=== PATIENT | male | born 1970 | race Two or more races ===

== ENCOUNTER 2020-07-03 18:14 | Inpatient (IN) | payer MEDICAID, OTHER ==
[2020-07-02] MEDS: IV NORMAL SALINE 1000ML BAG 1,000 ML IV SCH (03:30)
[~2020-07-03] VITALS: Ht 167.6 cm; Wt 63.5 kg
[2020-07-03 18:48] LABS: BASO % 0 % (0-3); EOS # 0.1 x10^3/uL (0.0-0.7); EOS % 1 % (0-3); HEMATOCRIT 47.8 % (39.0-53.0); HEMOGLOBIN 16.4 g/dL (13.0-17.5); LYMPH # 1.6 x10^3/uL (1.0-4.8); LYMPH % 9 % (24-48); MEAN CORPUSCULAR HEMOGLOBIN 33 pg (25-35); MEAN CORPUSCULAR HGB CONC 34 g/dL (31-37); MEAN CORPUSCULAR VOLUME 97 fL (79-100); MONO % 6 % (0-9); NEUT # 15.5 x10^3/uL (1.8-7.7); NEUT % 85 % (31-73); PLATELET COUNT 190 x10^3/uL (140-400); RED BLOOD COUNT 4.92 x10^6/uL (4.30-5.70); RED CELL DISTRIBUTION WIDTH 13.2 % (11.5-14.5); WHITE BLOOD COUNT 18.3 x10^3/uL (4.0-11.0)
[2020-07-03 19:05] LABS: CALCIUM 8.1 mg/dL (8.5-10.1); CREATININE 1.5 mg/dL (0.7-1.3); GFR 49.5; POTASSIUM 3.9 mmol/L (3.5-5.1)
[2020-07-03 19:10] LABS: ALBUMIN 2.4 g/dL (3.4-5.0); ALBUMIN/GLOBULIN RATIO 0.5 (1.0-1.7); TOTAL BILIRUBIN 0.5 mg/dL (0.2-1.0); TOTAL PROTEIN 7.5 g/dL (6.4-8.2)
--- NOTE | 2020-07-03 19:14 | PHYS DOC ---
Past Medical History Past Medical History: Hypertension Past Surgical History: No Surgical History Smoking Status: Never Smoker Alcohol Use: Occasionally General Adult EDM: Chief Complaint: DYSPNEA/RESPIRATOY DISTRESS HPI: HPI: 49-year-old male who reports past medical history of hypertension and bronchitis (no h/o tobacco dependence), presents to the ED with complaints of increased work of breathing, fatigue, weakness and shortness of breath, symptoms started on Thursday when he was tested negative for Covid but symptoms worsened yesterday. Associated sore throat. Was 60% on room air upon ED arrival. Not on any home oxygen. NKDA. Review of Systems: Review of Systems: Constitutional: Denies fever or chills. [] Eyes: Denies change in visual acuity. [] HENT: Denies nasal congestion or drooling/speech changes/facial droop Respiratory: Denies hemoptysis Cardiovascular: Denies chest pain or edema or syncope GI: Denies abdominal pain, nausea, vomiting, bloody stools or diarrhea. [] : Denies dysuria or dysuria [] Musculoskeletal: Denies back pain or joint pain. [] Integument: Denies rash. [] Neurologic: Denies headache, focal weakness or sensory changes, no neck pain Endocrine: Denies polyuria or polydipsia. [] Lymphatic: Denies swollen glands. [] Psychiatric: Denies depression or anxiety. [] Heart Score: Risk Factors: Risk Factors: DM, Current or recent (<one month) smoker, HTN, HLP, family history of CAD, obesity. Risk Scores: Score 0 - 3: 2.5% MACE over next 6 weeks - Discharge Home Score 4 - 6: 20.3% MACE over next 6 weeks - Admit for Clinical Observation Score 7 - 10: 72.7% MACE over next 6 weeks - Early Invasive Strategies Allergies: Allergies: Allergies Coded Allergies Type Severity Reaction Last Updated Verified No Known Drug Allergies 07/03/20 No Physical Exam: PE: Constitutional: fatigued appearing, afebrile HENT: Normocephalic, atraumatic, oropharynx moist, no oral exudates, Eyes: EOMI, conjunctiva normal, no discharge. [] Neck: Normal range of motion, supple, no stridor. [] Cardiovascular:Heart rate regular rhythm, no murmur [] Lungs & Thorax: Bilateral breath sounds clear to auscultation, tachypnea, hypoxic, sternal/subcostal retractions, 60% RA, Abdomen: Bowel sounds normal, soft, no tenderness, no masses, no pulsatile masses. [] Skin: Warm, dry, no erythema, no rash. [] Extremities: No tenderness, no cyanosis, no clubbing, ROM intact, no LE edema. [] Neurologic: Alert and oriented X 3, normal motor function, normal sensory function, no focal deficits noted. [] Psychologic: Affect normal, judgement normal, mood normal. [] Current Patient Data: Labs: Laboratory Tests Test 07/03/20 18:20 White Blood Count 18.3 x10^3/uL (4.0-11.0) H Red Blood Count 4.92 x10^6/uL (4.30-5.70) Hemoglobin 16.4 g/dL (13.0-17.5) Hematocrit 47.8 % (39.0-53.0) Mean Corpuscular Volume 97 fL (79-100) Mean Corpuscular Hemoglobin 33 pg (25-35) Mean Corpuscular Hemoglobin Concent 34 g/dL (31-37) Red Cell Distribution Width 13.2 % (11.5-14.5) Platelet Count 190 x10^3/uL (140-400) Neutrophils (%) (Auto) 85 % (31-73) H Lymphocytes (%) (Auto) 9 % (24-48) L Monocytes (%) (Auto) 6 % (0-9) Eosinophils (%) (Auto) 1 % (0-3) Basophils (%) (Auto) 0 % (0-3) Neutrophils # (Auto) 15.5 x10^3/uL (1.8-7.7) H Lymphocytes # (Auto) 1.6 x10^3/uL (1.0-4.8) Monocytes # (Auto) 1.0 x10^3/uL (0.0-1.1) Eosinophils # (Auto) 0.1 x10^3/uL (0.0-0.7) Basophils # (Auto) 0.0 x10^3/uL (0.0-0.2) Sodium Level 129 mmol/L (136-145) L Potassium Level 3.9 mmol/L (3.5-5.1) Chloride Level 90 mmol/L (98-107) L Carbon Dioxide Level 26 mmol/L (21-32) Anion Gap 13 (6-14) Blood Urea Nitrogen 31 mg/dL (8-26) H Creatinine 1.5 mg/dL (0.7-1.3) H Estimated GFR (Cockcroft-Gault) 49.5 BUN/Creatinine Ratio 21 (6-20) H Glucose Level 188 mg/dL (70-99) H Calcium Level 8.1 mg/dL (8.5-10.1) L Total Bilirubin 0.5 mg/dL (0.2-1.0) Aspartate Amino Transferase (AST) 39 U/L (15-37) H Alanine Aminotransferase (ALT) 37 U/L (16-63) Alkaline Phosphatase 102 U/L (46-116) Creatine Kinase 114 U/L (39-308) Total Protein 7.5 g/dL (6.4-8.2) Albumin 2.4 g/dL (3.4-5.0) L Albumin/Globulin Ratio 0.5 (1.0-1.7) L Laboratory Tests 07/03/20 18:20 Laboratory Tests 07/03/20 18:20 Vital Signs: Vital Signs Date Time Temp Pulse Resp B/P (MAP) Pulse Ox O2 Delivery O2 Flow Rate FiO2 07/03/20 18:32 98.0 96 42 137/84 (101) 60 Room Air 98.0 EKG: EKG: Sinus tachycardia at 101 bpm, right axis deviation, QTC 460, questionable T wave inversion lead 1 and aVL w/q waves, no ST elevations or ST depressions, no prior EKG for comparison Radiology/Procedures: Radiology/Procedures: IMAGING REPORT Signed PATIENT: ABHISHEK SKINNER ACCOUNT: [id number] : 1970 LOCATION: ER AGE: 49 SEX: M EXAM STATUS: REG ER ORD. PHYSICIAN: AUTUMN SMITH DO REASON: soa, elevated d-dimer, r/o pe PROCEDURE: CT ANGIOGRAPHY CHEST Exam: CT of chest with contrast INDICATION: Short of air TECHNIQUE: Sequential axial images through the chest obtained following the administration of 90 mL of Omni 350 IV contrast. Sagittal and coronal reformatted images were reconstructed from the axial data and reviewed. 3-D reformatted images were reconstructed from the axial data and reviewed. Comparisons: Chest x-ray same day FINDINGS: Visualized portions of the thyroid are unremarkable. Numerous prominent and mildly enlarged mediastinal lymph nodes are noted diffusely. Heart size is normal. No pericardial effusion. Thoracic aorta has a normal course and caliber. Pulmonary artery is not enlarged. There are segmental and subsegmental pulmonary emboli scattered throughout the right and left lower lobes. Airways are patent. Diffuse groundglass opacity noted throughout the lungs bilaterally with mild peripheral sparing and a greater distribution at the lower lobes. No pneumothorax. No pleural effusion or thickening. Visualized upper abdomen is unremarkable. No suspicious osseous lesions or acute fractures. IMPRESSION: 1. Scattered pulmonary emboli within segmental and subsegmental branches of the right and left lower lobes. No evidence for right heart strain on this study. 2. Diffuse groundglass opacity throughout the lungs described above this may relate to either edema or atypical infectious process. Correlate for viral causes. Exposure: One or more of the following in the visualized dose reduction techniques were utilized for this examination: 1. Automated exposure control 2. Adjustment of the MA and/or KV according to patient size 3. Use of iterative of reconstructive technique Electronically signed by: Rusty Victoria MD (07/03/2020 9:16 PM) [facility] DICTATED and SIGNED BY: RUSTY VICTORIA MD DATE: 07/03/202115 IMAGING REPORT Signed PATIENT: ABHISHEK SKINNER ACCOUNT: [id number] : 1970 LOCATION: ER AGE: 49 SEX: M EXAM STATUS: REG ER ORD. PHYSICIAN: AUTUMN SMITH DO REASON: soa PROCEDURE: PORTABLE CHEST 1V Exam: Chest one view INDICATION: Short of air TECHNIQUE: Frontal view of the chest Comparisons: None FINDINGS: The cardiomediastinal silhouette and pulmonary vessels are within normal limits. Patchy bilateral airspace disease. No pleural effusion. IMPRESSION: Patchy bilateral airspace disease may relate to edema or atypical infectious process. Electronically signed by: Rusty Victoria MD (07/03/2020 9:03 PM) [facility] DICTATED and SIGNED BY: RUSTY VICTORIA MD DATE: 07/03/202102 Course & Med Decision Making: Course & Med Decision Making Pertinent Labs and Imaging studies reviewed. (See chart for details) COVID-19 CRITERIA: The patient was evaluated during the global COVID-19 pandemic, and that diagnosis was suspected/considered upon their initial presentation. Their evaluation, treatment and testing was consistent with current guidelines for patients who present with complaints or symptoms that may be related to COVID-19. Concern for acute hypoxic respiratory failure (covid likely, test pending) with subsegmental nonmassive PE, NSTEMI, acute kidney injury? (no prior for comparison) and sepsis. Patient was started on antibiotics and PE treatment dosing with Lovenox. Patient requiring BiPAP given tachypnea and hypoxia. Pulmonology and cardiology are consulted (spoke with Dr. Nguyen who agrees with plan). Patient in guarded condition and will admit for further medical management. I have spoken with the patient and/or caregivers. I have explained the patient's condition, diagnosis and treatment plan based on the information available to me at this time. I have answered the patient's and/or caregivers questions and answered any concerns. The patient and/or caregivers have as good an understanding of the patient's diagnosis, condition and treatment plan as can be expected at this point. The patient has been stabilized within the capability of the emergency department. The patient will be transported for further care and management or will be moved to an observation or inpatient service. I have communicated with the staff or medical practitioner taking over this patient's care. Critical Care: Authorized and Performed by: Autumn Smith DO Total critical care time: approximately 60 minutes Due to a high probability of clinically significant, life threatening deterioration, the patient required my highest level of preparedness to intervene emergently and I personally spent this critical care time directly and personally managing the patient. This critical care time included obtaining a history; examining the patient; pulse oximetry; ventilator management if necessary; ordering and review of studies; arranging urgent treatment with development of a management plan; evaluation of patient's response to treatment; frequent reassessment; discussion with patient/family; and, discussions with other providers. This critical care time was performed to assess and manage the high probability of imminent, life-threatening deterioration that could result in multi-organ failure. It was exclusive of separately billable procedures and treating other patients and teaching time. Please see MDM section and the rest of the note for further information on patient assessment and treatment. Dragon Disclaimer: Dragon Disclaimer: This electronic medical record was generated, in whole or in part, using a voice recognition dictation system. Departure Departure Impression: Primary Impression: Acute respiratory failure with hypoxia Additional Impressions: Suspected COVID-19 virus infection Elevated troponin I level PRIYA (acute kidney injury) Pulmonary emboli Disposition: ADMITTED INPT THIS HOSP Admitting Physician: LIZA (Dr. Malone) Condition: GUARDED AUTUMN SMITH DO Jul 03, 2020 19:14
[2020-07-03] MEDS ORDERED: IV NORMAL SALINE 1000ML BAG 1,000 ML IV ONE ×2 (19:15)
[2020-07-03] MEDS ORDERED: AZITHROMYCIN 250 MG TABLET. PO ONE (19:15)
[2020-07-03] MEDS ORDERED: cefTRIAXone IV Push 1 GM VIAL. IVP ONE (19:15)
[2020-07-03 19:45] LABS: BASE EXCESS ABG -3 mmol/L (-3-3); HCO3 ABG 19 mmol/L (21-28); PCO2 ABG 28 mmHg (35-46); PO2 ABG 73 mmHg (75-108); SAT O2 ABG 94 % (92-99)
[2020-07-03 19:47] LABS: FIO2 ABG 100
[2020-07-03 19:51] LABS: % BANDS 5 % (0-9); % EOS 1 % (0-5); % LYMPHS 13 % (24-48); % METAS 5 % (0-0); % MONOS 3 % (0-10); % MYELOS 3 % (0-0); % SEGS 70 % (35-66); PLT ESTIMATE ADEQUATE (ADEQUATE); TOXIC GRANULATION SLIGHT
[2020-07-03 19:52] LABS: PLATELET CLUMP PRESENT
[2020-07-03 19:54] LABS: INFLUENZA A PATIENT NEGATIVE (NEGATIVE); INFLUENZA B PATIENT NEGATIVE (NEGATIVE)
[2020-07-03] MEDS ORDERED: IOHEXOL 350 MG/ML 100 ML VIAL. IV ONE (20:45)
[2020-07-03] MEDS ORDERED: CONTRAST GIVEN. MC PRN (20:45)
--- NOTE | 2020-07-03 21:07 | RAD ---
Exam: Chest one view INDICATION: Short of air TECHNIQUE: Frontal view of the chest Comparisons: None FINDINGS: The cardiomediastinal silhouette and pulmonary vessels are within normal limits. Patchy bilateral airspace disease. No pleural effusion. IMPRESSION: Patchy bilateral airspace disease may relate to edema or atypical infectious process. Electronically signed by: Rusty Shukla MD (07/03/2020 9:03 PM) [facility]
--- NOTE | 2020-07-03 21:18 | RAD ---
Exam: CT of chest with contrast INDICATION: Short of air TECHNIQUE: Sequential axial images through the chest obtained following the administration of 90 mL of Omni 350 IV contrast. Sagittal and coronal reformatted images were reconstructed from the axial data and reviewed. 3-D reformatted images were reconstructed from the axial data and reviewed. Comparisons: Chest x-ray same day FINDINGS: Visualized portions of the thyroid are unremarkable. Numerous prominent and mildly enlarged mediastinal lymph nodes are noted diffusely. Heart size is normal. No pericardial effusion. Thoracic aorta has a normal course and caliber. Pulmonary artery is not enlarged. There are segmental and subsegmental pulmonary emboli scattered throughout the right and left lower lobes. Airways are patent. Diffuse groundglass opacity noted throughout the lungs bilaterally with mild peripheral sparing and a greater distribution at the lower lobes. No pneumothorax. No pleural effusion or thickening. Visualized upper abdomen is unremarkable. No suspicious osseous lesions or acute fractures. IMPRESSION: 1. Scattered pulmonary emboli within segmental and subsegmental branches of the right and left lower lobes. No evidence for right heart strain on this study. 2. Diffuse groundglass opacity throughout the lungs described above this may relate to either edema or atypical infectious process. Correlate for viral causes. Exposure: One or more of the following in the visualized dose reduction techniques were utilized for this examination: 1. Automated exposure control 2. Adjustment of the MA and/or KV according to patient size 3. Use of iterative of reconstructive technique Electronically signed by: Rusty Shukla MD (07/03/2020 9:16 PM) [facility]
[2020-07-03] MEDS ORDERED: ACETAMINOPHEN 325 MG TABLET. PO PRN (22:30)
[2020-07-03] MEDS ORDERED: MORPHINE SULFATE 2 MG/ML VIAL. IV PRN (22:30)
[2020-07-03] MEDS ORDERED: ONDANSETRON PF 4 MG/2 ML VIAL. IV PRN (22:30)
[2020-07-04] VITALS (28 sets, daily range): BP systolic 62–161; BP diastolic 47–75
[2020-07-04 01:06] LABS: BASE EXCESS ABG -2 mmol/L (-3-3); HCO3 ABG 22 mmol/L (21-28); PCO2 ABG 33 mmHg (35-46); PO2 ABG 79 mmHg (75-108); SAT O2 ABG 95 % (92-99)
[2020-07-04 01:15] LABS: FIO2 ABG 85
[2020-07-04] MEDS ORDERED: BENZOCAINE/MENTHOL LOZENGE. PO PRN (01:15)
--- NOTE | 2020-07-04 03:20 | NUR ---
Patient admitted to room 104 via cart at 0310, accompanied by ED RN and RT--patient transferred on O2 at 100% NRB and immediately placed on BiPap with the settings of IPap 16 EPap 10, rate 10 and FiO2 85%. Patient A/Ox4, cooperative and denies pain. Patient's primary language is Zimbabwean but does answer to some Samoan with yes/no answers. Patient is short of air of with rest which does worsen with exertion and speaking. Majority of patient's admission information obtained from ED notes--ED RN used extractive metallurgist phone for answers. Patient oriented to ICU routine, nursing call light, TV/Bed controls, Numeric pain scale, activity, and POC. Encouraged patient to call for drink to assist with BiPap and not to get out of bed (bed alarm on), patient verbalized understanding. Per Chest CTA, patient has scattered PE's in bilat lungs and patient did received Lovenox 150MG subcutaneous in ED. Will hold SCDs until discussing with PCP regarding evaluation for DVT. See Admission information and Admission assessment.
[2020-07-04 07:50] LABS: BASE EXCESS ABG 1 mmol/L (-3-3); HCO3 ABG 25 mmol/L (21-28); PCO2 ABG 38 mmHg (35-46); PO2 ABG 71 mmHg (75-108); SAT O2 ABG 94 % (92-99)
[2020-07-04 08:08] LABS: FIO2 ABG 85
--- NOTE | 2020-07-04 09:04 | PDOC2 ---
CHACORTA DAVILA STORE STANDARDS ASSOCIATE 07/04/20 0904: CARDIAC CONSULT DATE OF CONSULT Date of Consult DATE: 07/04/20 TIME: 08:51 REASON FOR CONSULT Reason for Consult: NSTEMI REFERRING PHYSICIAN Referring Physician: [facility] SOURCE Source: Chart review HISTORY OF PRESENT ILLNESS HISTORY OF PRESENT ILLNESS This is a 49 yo male admitted for complains of SOA. Unable to obtain further details to pt directly as he just got intubated. He was tested negative for covid Thursday but presently PUI. Per imaging he has been noted with acute PE. Except for HTN he does not have any significant CV hxnor VTE per chart review. PAST MEDICAL HISTORY Past Medical History HTN and bronchitis otherwise no other pertinent medical hx PAST SURGICAL HISTORY Past Surgical History: No pertinent history FAMILY HISTORY Family History: Family History Unknown SOCIAL HISTORY Smoke: No ALCOHOL: occassional Drugs: None Lives: with Family CURRENT MEDICATIONS CURRENT MEDICATIONS Current Medications Medications (Trade) Dose Ordered Sig/Natalee Route PRN Reason Start Time Stop Time Status Last Admin Dose Admin Ceftriaxone Sodium (Rocephin) 1 gm 1X ONCE IVP 07/03/20 19:15 07/03/20 19:19 DC 07/03/20 20:11 Azithromycin (Zithromax) 500 mg 1X ONCE PO 07/03/20 19:15 07/03/20 19:19 DC 07/03/20 20:11 Sodium Chloride 1,000 ml @ 1,000 mls/hr 1X ONCE IV 07/03/20 19:15 07/03/20 20:14 DC 07/03/20 20:11 Sodium Chloride 1,000 ml @ 1,000 mls/hr 1X ONCE IV 07/03/20 19:15 07/03/20 20:14 DC 07/03/20 19:15 Iohexol (Omnipaque 350 Mg/ml) 90 ml 1X ONCE IV 07/03/20 20:45 07/03/20 20:46 DC 07/03/20 21:00 Enoxaparin Sodium (Lovenox 150mg Syringe) 150 mg 1X ONCE SQ 07/03/20 23:00 07/03/20 23:01 DC 07/03/20 22:45 Sodium Chloride 1,000 ml @ 100 mls/hr Q10H IV 07/03/20 23:00 07/04/20 22:59 11/9/20 03:30 ALLERGIES ALLERGIES: Coded Allergies: No Known Drug Allergies (Unverified , 07/03/20) ROS Review of System unreliable, intubated PHYSICAL EXAM General: Other (sedated) HEENT: Atraumatic Lungs: Other (intubated with vent) Heart: Regular rate (SR/ST) Abdomen: Soft Extremities: No cyanosis Skin: No breakdown Psych/Mental Status: Other (sedated) MUSCULOSKELETAL: No deformity VITALS/I&O VITALS/I&O: Vital Signs Date Time Temp Pulse Resp B/P (MAP) Pulse Ox O2 Delivery O2 Flow Rate FiO2 07/04/20 08:00 Bi-pap 07/04/20 08:00 72 47 105/58 (74) 93 07/04/20 07:00 99.2 99.2 07/03/20 19:20 15.0 I & O 07/03/20 07/03/20 07/04/20 15:00 23:00 07:00 Intake Total 2415 ml Output Total 400 ml Balance 2015 ml LABS Lab: Laboratory Tests Test 07/03/20 18:20 07/03/20 18:22 07/03/20 18:45 07/03/20 19:35 White Blood Count 18.3 x10^3/uL (4.0-11.0) H Red Blood Count 4.92 x10^6/uL (4.30-5.70) Hemoglobin 16.4 g/dL (13.0-17.5) Hematocrit 47.8 % (39.0-53.0) Mean Corpuscular Volume 97 fL (79-100) Mean Corpuscular Hemoglobin 33 pg (25-35) Mean Corpuscular Hemoglobin Concent 34 g/dL (31-37) Red Cell Distribution Width 13.2 % (11.5-14.5) Platelet Count 190 x10^3/uL (140-400) Neutrophils (%) (Auto) 85 % (31-73) H Lymphocytes (%) (Auto) 9 % (24-48) L Monocytes (%) (Auto) 6 % (0-9) Eosinophils (%) (Auto) 1 % (0-3) Basophils (%) (Auto) 0 % (0-3) Neutrophils # (Auto) 15.5 x10^3/uL (1.8-7.7) H Lymphocytes # (Auto) 1.6 x10^3/uL (1.0-4.8) Monocytes # (Auto) 1.0 x10^3/uL (0.0-1.1) Eosinophils # (Auto) 0.1 x10^3/uL (0.0-0.7) Basophils # (Auto) 0.0 x10^3/uL (0.0-0.2) Segmented Neutrophils % 70 % (35-66) H Band Neutrophils % 5 % (0-9) Lymphocytes % 13 % (24-48) L Monocytes % 3 % (0-10) Eosinophils % 1 % (0-5) Metamyelocytes % 5 % (0-0) H Myelocytes % 3 % (0-0) H Toxic Granulation Slight Platelet Estimate Adequate (ADEQUATE) Platelet Clumps, EDTA Present Large Platelets Occ Giant Platelets Occ Sodium Level 129 mmol/L (136-145) L Potassium Level 3.9 mmol/L (3.5-5.1) Chloride Level 90 mmol/L (98-107) L Carbon Dioxide Level 26 mmol/L (21-32) Anion Gap 13 (6-14) Blood Urea Nitrogen 31 mg/dL (8-26) H Creatinine 1.5 mg/dL (0.7-1.3) H Estimated GFR (Cockcroft-Gault) 49.5 BUN/Creatinine Ratio 21 (6-20) H Glucose Level 188 mg/dL (70-99) H Lactic Acid Level 3.8 mmol/L (0.4-2.0) H Calcium Level 8.1 mg/dL (8.5-10.1) L Total Bilirubin 0.5 mg/dL (0.2-1.0) Aspartate Amino Transferase (AST) 39 U/L (15-37) H Alanine Aminotransferase (ALT) 37 U/L (16-63) Alkaline Phosphatase 102 U/L (46-116) Creatine Kinase 114 U/L (39-308) Troponin I Quantitative 0.136 ng/mL (0.000-0.055) C-Reactive Protein, Quantitative 243.4 mg/L (0-3.3) H PD-Xgv-E-Type Natriuretic Peptide 2022 pg/mL (0-124) H Total Protein 7.5 g/dL (6.4-8.2) Albumin 2.4 g/dL (3.4-5.0) L Albumin/Globulin Ratio 0.5 (1.0-1.7) L Influenza Type A Antigen Negative (NEGATIVE) Influenza Type B Antigen Negative (NEGATIVE) D-Dimer ([place]) > 20.00 ug/mlFEU O2 Saturation 94 % (92-99) Arterial Blood pH 7.47 (7.35-7.45) H Arterial Blood pCO2 at Patient Temp 28 mmHg (35-46) L Arterial Blood pO2 at Patient Temp 73 mmHg (75-108) L Arterial Blood HCO3 19 mmol/L (21-28) L Arterial Blood Base Excess -3 mmol/L (-3-3) FiO2 100 Test 07/03/20 23:09 07/04/20 00:55 07/04/20 07:40 Lactic Acid Level 1.7 mmol/L (0.4-2.0) O2 Saturation 95 % (92-99) 94 % (92-99) Arterial Blood pH 7.43 (7.35-7.45) 7.43 (7.35-7.45) Arterial Blood pCO2 at Patient Temp 33 mmHg (35-46) L 38 mmHg (35-46) Arterial Blood pO2 at Patient Temp 79 mmHg (75-108) 71 mmHg (75-108) L Arterial Blood HCO3 22 mmol/L (21-28) 25 mmol/L (21-28) Arterial Blood Base Excess -2 mmol/L (-3-3) 1 mmol/L (-3-3) FiO2 85 85 Laboratory Tests 07/03/20 18:20 Laboratory Tests 07/03/20 18:20 ASSESSMENT/PLAN ASSESSMENT/PLAN 1. Acute hypoxic respiratory failure with acute PE now intubated 2. Acute diastolic CHF 3. NSTEMI: suspect demand mediated, type 2 with above culprits. EKG SR no acute changes 4. HTN: controlled 5. PUI Recommendations TTE if covid negative BMP and Mg Lasix x1 Anticoagulation per pulmonary Supportive care ALESIA LUA MD 07/04/202109: CARDIAC CONSULT ASSESSMENT/PLAN ASSESSMENT/PLAN Agree with LEAD CUSTODIAN's assessment and plan. Continue management of acute resp failure secondary to PE s/p intubation per pulm team We will diurese gently with lasix for mild acute diastolic HF Trop elevation probably demand ischemia We will check 2D echo if Covid test comes back negative Consider ischemic evaluation as outpatient Thank you for your consultation CHACORTA DAVILA APRN Jul 04, 2020 09:04 ALESIA LUA MD Jul 04, 2020 21:10
[2020-07-04] MEDS ORDERED: ETOMIDATE 20 MG/10 ML VIAL. IV ONE ×2 (09:09→09:30)
[2020-07-04] MEDS ORDERED: SUCCINYLCHOLINE 200 MG/10 ML VIAL. ONE (09:09)
[2020-07-04] MEDS ORDERED: MIDAZOLAM HCL/PF 5 MG/5 ML VIAL. ONE (09:21)
[2020-07-04] MEDS ORDERED: MIDAZOLAM HCL/PF 5 MG/5 ML VIAL. IV STA (09:21)
[2020-07-04] MEDS ORDERED: SUCCINYLCHOLINE 200 MG/10 ML VIAL. IV ONE (09:30)
[2020-07-04] MEDS ORDERED: VECURONIUM BOLUS 10 MG VIAL. IV ONE ×3 (09:33→13:15)
[2020-07-04] MEDS: MIDAZOLAM 100mg/100ml NS BAG 100 ML IV PRN ×2 (09:39→14:53)
[2020-07-04] MEDS: IV NORMAL SALINE 1000ML BAG 1,000 ML IV SCH (09:42)
[2020-07-04] MEDS ORDERED: FUROSEMIDE 20 MG/2 ML VIAL. IVP ONE (10:00)
[2020-07-04] MEDS: PROPOFOL 100 ML IV PRN (10:37)
--- NOTE | 2020-07-04 10:37 | RAD ---
EXAM: KUB, PORTABLE CHEST 1V INDICATION: Reason: OG tube placement / Spl. Instructions: / History: . TECHNIQUE: Single view COMPARISON: CT angiogram 07/03/2020 FINDINGS: Patient is now intubated, ET tube terminating 5.5 cm above the omero. An enteric tube has also been placed, tip passing below the diaphragms to terminates in the left upper quadrant abdomen. The heart size is normal. The great vessels appear unremarkable. There is no hilar or mediastinal mass. Lungs show diffuse bilateral coarse interstitial opacities. There is no pleural effusion or pneumothorax. There are no significant osseous abnormalities. IMPRESSION: 1. Interval endotracheal intubation, ET tube 5.5 cm above the omero. 2. Enteric tube placement with the tip in the left upper quadrant abdomen. 3. Diffuse bilateral pulmonary infiltrates. Electronically signed by: Gosia Li MD (07/04/2020 10:34 AM) [id number]
[2020-07-04 11:27] LABS: BASE EXCESS ABG 0 mmol/L (-3-3); HCO3 ABG 26 mmol/L (21-28); PCO2 ABG 48 mmHg (35-46); PO2 ABG 80 mmHg (75-108); SAT O2 ABG 94 % (92-99)
[2020-07-04 11:43] LABS: CHOLESTEROL/HDL RATIO 13.8
[2020-07-04] MEDS ORDERED: PIP/TAZO PER PHARMACY MC PRN (12:00)
[2020-07-04] MEDS ORDERED: HEPARIN for IV BOLUS 10,000 UNIT/10 ML VIAL. IV PRN (12:00)
[2020-07-04 12:01] LABS: CALCIUM 7.2 mg/dL (8.5-10.1); CREATININE 0.9 mg/dL (0.7-1.3); GFR 89.3; POTASSIUM 4.1 mmol/L (3.5-5.1)
[2020-07-04 12:08] LABS: FIO2 ABG 100
[2020-07-04] MEDS: HEPARIN 25,000UTS/250ML PREMIX 250 ML IV PRN (12:24)
[2020-07-04] MEDS: PANTOPRAZOLE IV PUSH 40 MG VIAL. IVP SCH (12:27)
[2020-07-04 12:35] LABS: BASO % 0 % (0-3); EOS # 0.2 x10^3/uL (0.0-0.7); EOS % 2 % (0-3); HEMATOCRIT 34.3 % (39.0-53.0); HEMOGLOBIN 11.4 g/dL (13.0-17.5); LYMPH # 0.6 x10^3/uL (1.0-4.8); LYMPH % 5 % (24-48); MEAN CORPUSCULAR HEMOGLOBIN 33 pg (25-35); MEAN CORPUSCULAR HGB CONC 33 g/dL (31-37); MEAN CORPUSCULAR VOLUME 99 fL (79-100); MONO # 0.5 x10^3/uL (0.0-1.1); MONO % 4 % (0-9); NEUT # 11.2 x10^3/uL (1.8-7.7); NEUT % 90 % (31-73); PLATELET COUNT 135 x10^3/uL (140-400); RED BLOOD COUNT 3.48 x10^6/uL (4.30-5.70); RED CELL DISTRIBUTION WIDTH 12.9 % (11.5-14.5); WHITE BLOOD COUNT 12.4 x10^3/uL (4.0-11.0)
[2020-07-04] MEDS: NOREPINEPHRINE VIAL 8 MG in IV DEXTROSE 5% 250 ML IV PRN (13:26)
--- NOTE | 2020-07-04 13:43 | NUR ---
Have reviewed and agree with documentation completed by post graduate internship and made changes as needed. TF orders have been entered. RD available [id number] as needed
[2020-07-04] MEDS: methylPREDNISolone SOD SUCC PF 40 MG/ML VIAL. IV SCH (14:10)
[2020-07-04] MEDS: PIPERACILLIN/TAZOBACTAM 3.375 GM in IV NORMAL SALINE 50ML 50 ML IV SCH ×2 (14:10→18:00)
--- NOTE | 2020-07-04 14:24 | NUR ---
SS following for discharge planning. SS reviewed pt chart and discussed with pt RN. Pt is from home and is currently intubated and on the vent at 100%. COVID19 test pending. Self Pay. Pt on IV Zosyn. SS will continue to follow for discharge planning.
--- NOTE | 2020-07-04 14:44 | EKG ---
[facility] [address] [place] [address] Test Date: 2020-07-03 Test Time: 18:19:28 Pat Name: ABHISHEK SKINNER Department: Room: Gender: M Aerial Installer: : 1970 Requested By: YARITZA SMITH Order Number: [id number] Reading MD: Measurements Intervals [place] Rate: 101 P: 121 [place]: 138 QRS: 177 QRSD: 92 T: 149 QT: 354 QTc: 460 Interpretive Statements SINUS TACHYCARDIA ABNORMAL RIGHT AXIS DEVIATION QRS(T) CONTOUR ABNORMALITY CONSISTENT WITH HIGH LATERAL INFARCT AGE UNDETERMINED ABNORMAL ECG RI6.02 No previous ECG available for comparison
--- NOTE | 2020-07-04 15:01 | PDOC ---
PULMONARY PROGRESS NOTES DATE: 07/04/20 TIME: 15:00 Vitals Vital Signs Date Time Temp Pulse Resp B/P (MAP) Pulse Ox O2 Delivery O2 Flow Rate FiO2 07/04/20 13:30 88 92/62 (72) 90 07/04/20 12:00 Mechanical Ventilator 07/04/20 08:00 47 07/04/20 07:00 99.2 99.2 07/03/20 19:20 15.0 Labs Laboratory Tests Test 07/03/20 18:20 07/03/20 18:22 07/03/20 18:45 07/03/20 19:35 White Blood Count 18.3 x10^3/uL (4.0-11.0) Red Blood Count 4.92 x10^6/uL (4.30-5.70) Hemoglobin 16.4 g/dL (13.0-17.5) Hematocrit 47.8 % (39.0-53.0) Mean Corpuscular Volume 97 fL (79-100) Mean Corpuscular Hemoglobin 33 pg (25-35) Mean Corpuscular Hemoglobin Concent 34 g/dL (31-37) Red Cell Distribution Width 13.2 % (11.5-14.5) Platelet Count 190 x10^3/uL (140-400) Neutrophils (%) (Auto) 85 % (31-73) Lymphocytes (%) (Auto) 9 % (24-48) Monocytes (%) (Auto) 6 % (0-9) Eosinophils (%) (Auto) 1 % (0-3) Basophils (%) (Auto) 0 % (0-3) Neutrophils # (Auto) 15.5 x10^3/uL (1.8-7.7) Lymphocytes # (Auto) 1.6 x10^3/uL (1.0-4.8) Monocytes # (Auto) 1.0 x10^3/uL (0.0-1.1) Eosinophils # (Auto) 0.1 x10^3/uL (0.0-0.7) Basophils # (Auto) 0.0 x10^3/uL (0.0-0.2) Segmented Neutrophils % 70 % (35-66) Band Neutrophils % 5 % (0-9) Lymphocytes % 13 % (24-48) Monocytes % 3 % (0-10) Eosinophils % 1 % (0-5) Metamyelocytes % 5 % (0-0) Myelocytes % 3 % (0-0) Toxic Granulation Slight Platelet Estimate Adequate (ADEQUATE) Platelet Clumps, EDTA Present Large Platelets Occ Giant Platelets Occ Sodium Level 129 mmol/L (136-145) Potassium Level 3.9 mmol/L (3.5-5.1) Chloride Level 90 mmol/L (98-107) Carbon Dioxide Level 26 mmol/L (21-32) Anion Gap 13 (6-14) Blood Urea Nitrogen 31 mg/dL (8-26) Creatinine 1.5 mg/dL (0.7-1.3) Estimated GFR (Cockcroft-Gault) 49.5 BUN/Creatinine Ratio 21 (6-20) Glucose Level 188 mg/dL (70-99) Lactic Acid Level 3.8 mmol/L (0.4-2.0) Calcium Level 8.1 mg/dL (8.5-10.1) Total Bilirubin 0.5 mg/dL (0.2-1.0) Aspartate Amino Transf (AST/SGOT) 39 U/L (15-37) Alanine Aminotransferase (ALT/SGPT) 37 U/L (16-63) Alkaline Phosphatase 102 U/L (46-116) Creatine Kinase 114 U/L (39-308) Troponin I Quantitative 0.136 ng/mL (0.000-0.055) C-Reactive Protein, Quantitative 243.4 mg/L (0-3.3) UW-Asj-P-Type Natriuretic Peptide 2022 pg/mL (0-124) Total Protein 7.5 g/dL (6.4-8.2) Albumin 2.4 g/dL (3.4-5.0) Albumin/Globulin Ratio 0.5 (1.0-1.7) Influenza Type A Antigen Negative (NEGATIVE) Influenza Type B Antigen Negative (NEGATIVE) D-Dimer ([place]) > 20.00 ug/mlFEU O2 Saturation 94 % (92-99) Arterial Blood pH 7.47 (7.35-7.45) Arterial Blood pCO2 at Patient Temp 28 mmHg (35-46) Arterial Blood pO2 at Patient Temp 73 mmHg (75-108) Arterial Blood HCO3 19 mmol/L (21-28) Arterial Blood Base Excess -3 mmol/L (-3-3) FiO2 100 Test 07/03/20 23:09 07/04/20 00:55 07/04/20 07:40 07/04/20 11:00 Lactic Acid Level 1.7 mmol/L (0.4-2.0) O2 Saturation 95 % (92-99) 94 % (92-99) Arterial Blood pH 7.43 (7.35-7.45) 7.43 (7.35-7.45) Arterial Blood pCO2 at Patient Temp 33 mmHg (35-46) 38 mmHg (35-46) Arterial Blood pO2 at Patient Temp 79 mmHg (75-108) 71 mmHg (75-108) Arterial Blood HCO3 22 mmol/L (21-28) 25 mmol/L (21-28) Arterial Blood Base Excess -2 mmol/L (-3-3) 1 mmol/L (-3-3) FiO2 85 85 White Blood Count 12.4 x10^3/uL (4.0-11.0) Red Blood Count 3.48 x10^6/uL (4.30-5.70) Hemoglobin 11.4 g/dL (13.0-17.5) Hematocrit 34.3 % (39.0-53.0) Mean Corpuscular Volume 99 fL (79-100) Mean Corpuscular Hemoglobin 33 pg (25-35) Mean Corpuscular Hemoglobin Concent 33 g/dL (31-37) Red Cell Distribution Width 12.9 % (11.5-14.5) Platelet Count 135 x10^3/uL (140-400) Neutrophils (%) (Auto) 90 % (31-73) Lymphocytes (%) (Auto) 5 % (24-48) Monocytes (%) (Auto) 4 % (0-9) Eosinophils (%) (Auto) 2 % (0-3) Basophils (%) (Auto) 0 % (0-3) Neutrophils # (Auto) 11.2 x10^3/uL (1.8-7.7) Lymphocytes # (Auto) 0.6 x10^3/uL (1.0-4.8) Monocytes # (Auto) 0.5 x10^3/uL (0.0-1.1) Eosinophils # (Auto) 0.2 x10^3/uL (0.0-0.7) Basophils # (Auto) 0.0 x10^3/uL (0.0-0.2) Sodium Level 136 mmol/L (136-145) Potassium Level 4.1 mmol/L (3.5-5.1) Chloride Level 101 mmol/L (98-107) Carbon Dioxide Level 26 mmol/L (21-32) Anion Gap 9 (6-14) Blood Urea Nitrogen 17 mg/dL (8-26) Creatinine 0.9 mg/dL (0.7-1.3) Estimated GFR (Cockcroft-Gault) 89.3 Glucose Level 150 mg/dL (70-99) Calcium Level 7.2 mg/dL (8.5-10.1) Magnesium Level 2.1 mg/dL (1.8-2.4) Troponin I Quantitative 0.214 ng/mL (0.000-0.055) Triglycerides Level 190 mg/dL (0-150) Cholesterol Level 83 mg/dL (0-200) LDL Cholesterol, Calculated 39 mg/dL (0-100) VLDL Cholesterol, Calculated 38 mg/dL (0-40) Non-HDL Cholesterol Calculated 77 mg/dL (0-129) HDL Cholesterol 6 mg/dL (40-60) Cholesterol/HDL Ratio 13.8 Test 07/04/20 11:20 O2 Saturation 94 % (92-99) Arterial Blood pH 7.35 (7.35-7.45) Arterial Blood pCO2 at Patient Temp 48 mmHg (35-46) Arterial Blood pO2 at Patient Temp 80 mmHg (75-108) Arterial Blood HCO3 26 mmol/L (21-28) Arterial Blood Base Excess 0 mmol/L (-3-3) FiO2 100 Laboratory Tests Test 07/03/20 18:20 07/03/20 18:22 07/03/20 18:45 07/03/20 19:35 White Blood Count 18.3 x10^3/uL (4.0-11.0) Red Blood Count 4.92 x10^6/uL (4.30-5.70) Hemoglobin 16.4 g/dL (13.0-17.5) Hematocrit 47.8 % (39.0-53.0) Mean Corpuscular Volume 97 fL (79-100) Mean Corpuscular Hemoglobin 33 pg (25-35) Mean Corpuscular Hemoglobin Concent 34 g/dL (31-37) Red Cell Distribution Width 13.2 % (11.5-14.5) Platelet Count 190 x10^3/uL (140-400) Neutrophils (%) (Auto) 85 % (31-73) Lymphocytes (%) (Auto) 9 % (24-48) Monocytes (%) (Auto) 6 % (0-9) Eosinophils (%) (Auto) 1 % (0-3) Basophils (%) (Auto) 0 % (0-3) Neutrophils # (Auto) 15.5 x10^3/uL (1.8-7.7) Lymphocytes # (Auto) 1.6 x10^3/uL (1.0-4.8) Monocytes # (Auto) 1.0 x10^3/uL (0.0-1.1) Eosinophils # (Auto) 0.1 x10^3/uL (0.0-0.7) Basophils # (Auto) 0.0 x10^3/uL (0.0-0.2) Segmented Neutrophils % 70 % (35-66) Band Neutrophils % 5 % (0-9) Lymphocytes % 13 % (24-48) Monocytes % 3 % (0-10) Eosinophils % 1 % (0-5) Metamyelocytes % 5 % (0-0) Myelocytes % 3 % (0-0) Toxic Granulation Slight Platelet Estimate Adequate (ADEQUATE) Platelet Clumps, EDTA Present Large Platelets Occ Giant Platelets Occ Sodium Level 129 mmol/L (136-145) Potassium Level 3.9 mmol/L (3.5-5.1) Chloride Level 90 mmol/L (98-107) Carbon Dioxide Level 26 mmol/L (21-32) Anion Gap 13 (6-14) Blood Urea Nitrogen 31 mg/dL (8-26) Creatinine 1.5 mg/dL (0.7-1.3) Estimated GFR (Cockcroft-Gault) 49.5 BUN/Creatinine Ratio 21 (6-20) Glucose Level 188 mg/dL (70-99) Lactic Acid Level 3.8 mmol/L (0.4-2.0) Calcium Level 8.1 mg/dL (8.5-10.1) Total Bilirubin 0.5 mg/dL (0.2-1.0) Aspartate Amino Transf (AST/SGOT) 39 U/L (15-37) Alanine Aminotransferase (ALT/SGPT) 37 U/L (16-63) Alkaline Phosphatase 102 U/L (46-116) Creatine Kinase 114 U/L (39-308) Troponin I Quantitative 0.136 ng/mL (0.000-0.055) C-Reactive Protein, Quantitative 243.4 mg/L (0-3.3) NJ-Cla-D-Type Natriuretic Peptide 2022 pg/mL (0-124) Total Protein 7.5 g/dL (6.4-8.2) Albumin 2.4 g/dL (3.4-5.0) Albumin/Globulin Ratio 0.5 (1.0-1.7) Influenza Type A Antigen Negative (NEGATIVE) Influenza Type B Antigen Negative (NEGATIVE) D-Dimer ([place]) > 20.00 ug/mlFEU O2 Saturation 94 % (92-99) Arterial Blood pH 7.47 (7.35-7.45) Arterial Blood pCO2 at Patient Temp 28 mmHg (35-46) Arterial Blood pO2 at Patient Temp 73 mmHg (75-108) Arterial Blood HCO3 19 mmol/L (21-28) Arterial Blood Base Excess -3 mmol/L (-3-3) FiO2 100 Test 07/03/20 23:09 07/04/20 00:55 07/04/20 07:40 07/04/20 11:00 Lactic Acid Level 1.7 mmol/L (0.4-2.0) O2 Saturation 95 % (92-99) 94 % (92-99) Arterial Blood pH 7.43 (7.35-7.45) 7.43 (7.35-7.45) Arterial Blood pCO2 at Patient Temp 33 mmHg (35-46) 38 mmHg (35-46) Arterial Blood pO2 at Patient Temp 79 mmHg (75-108) 71 mmHg (75-108) Arterial Blood HCO3 22 mmol/L (21-28) 25 mmol/L (21-28) Arterial Blood Base Excess -2 mmol/L (-3-3) 1 mmol/L (-3-3) FiO2 85 85 White Blood Count 12.4 x10^3/uL (4.0-11.0) Red Blood Count 3.48 x10^6/uL (4.30-5.70) Hemoglobin 11.4 g/dL (13.0-17.5) Hematocrit 34.3 % (39.0-53.0) Mean Corpuscular Volume 99 fL (79-100) Mean Corpuscular Hemoglobin 33 pg (25-35) Mean Corpuscular Hemoglobin Concent 33 g/dL (31-37) Red Cell Distribution Width 12.9 % (11.5-14.5) Platelet Count 135 x10^3/uL (140-400) Neutrophils (%) (Auto) 90 % (31-73) Lymphocytes (%) (Auto) 5 % (24-48) Monocytes (%) (Auto) 4 % (0-9) Eosinophils (%) (Auto) 2 % (0-3) Basophils (%) (Auto) 0 % (0-3) Neutrophils # (Auto) 11.2 x10^3/uL (1.8-7.7) Lymphocytes # (Auto) 0.6 x10^3/uL (1.0-4.8) Monocytes # (Auto) 0.5 x10^3/uL (0.0-1.1) Eosinophils # (Auto) 0.2 x10^3/uL (0.0-0.7) Basophils # (Auto) 0.0 x10^3/uL (0.0-0.2) Sodium Level 136 mmol/L (136-145) Potassium Level 4.1 mmol/L (3.5-5.1) Chloride Level 101 mmol/L (98-107) Carbon Dioxide Level 26 mmol/L (21-32) Anion Gap 9 (6-14) Blood Urea Nitrogen 17 mg/dL (8-26) Creatinine 0.9 mg/dL (0.7-1.3) Estimated GFR (Cockcroft-Gault) 89.3 Glucose Level 150 mg/dL (70-99) Calcium Level 7.2 mg/dL (8.5-10.1) Magnesium Level 2.1 mg/dL (1.8-2.4) Troponin I Quantitative 0.214 ng/mL (0.000-0.055) Triglycerides Level 190 mg/dL (0-150) Cholesterol Level 83 mg/dL (0-200) LDL Cholesterol, Calculated 39 mg/dL (0-100) VLDL Cholesterol, Calculated 38 mg/dL (0-40) Non-HDL Cholesterol Calculated 77 mg/dL (0-129) HDL Cholesterol 6 mg/dL (40-60) Cholesterol/HDL Ratio 13.8 Test 07/04/20 11:20 O2 Saturation 94 % (92-99) Arterial Blood pH 7.35 (7.35-7.45) Arterial Blood pCO2 at Patient Temp 48 mmHg (35-46) Arterial Blood pO2 at Patient Temp 80 mmHg (75-108) Arterial Blood HCO3 26 mmol/L (21-28) Arterial Blood Base Excess 0 mmol/L (-3-3) FiO2 100 Impression . Full note dictated See orders Acute hypoxemic respiratory failure, PE, possible COVID-19 ALVIN RAMSEY MD Jul 04, 2020 15:01
[2020-07-04] MEDS: fentaNYL HIGH DOSE PCA 55 ML IV PRN (15:20)
--- NOTE | 2020-07-04 15:45 | CONS ---
DATE OF CONSULTATION: 07/04/2020 ATTENDING PHYSICIAN: Dr. Malone. REASON FOR CONSULTATION: The patient is seen in pulmonary consultation at the request of Dr. Malone for hypoxemic respiratory failure. HISTORY OF PRESENT ILLNESS: The patient is a 49-year-old with a history of hypertension, bronchitis. No history of COPD or tobacco, presented to the Emergency Room with increasing shortness of breath, weakness. He has been tested negative on Thursday for COVID-19, but his symptoms worsen. He had O2 saturations on room air of 90%. The patient was admitted and placed in the intensive care unit. Earlier this morning, I was called with his clinical deterioration. The patient had an arterial blood gas on 100%, pH of 7.47, PaCO2 of 28, pO2 of 73. The patient had increased work of breathing. He had a T-max of 99.2. He had a CT chest revealing scattered pulmonary emboli within the segmental and subsegmental branches. He had diffuse ground glass opacities. He was intubated by anesthesia. He is currently on assist control ventilation. PAST MEDICAL HISTORY: Remarkable for hypertension, some bronchitis, possible asthma. No history of smoking. REVIEW OF SYSTEMS: Unobtainable secondary to the patient's condition CURRENT MEDICATION: List was reviewed. PHYSICAL EXAMINATION: The patient was seen during the COVID-19 pandemic. On visual examination, the patient was not in sync with mechanical ventilation. He had elevated peak airway pressures. He had paroxysmal breathing pattern. No significant edema was noted. RADIOLOGICAL DATA: Chest x-ray and CT as indicated above. LABORATORY DATA: Influenza screen was negative. White count was elevated. Hemoglobin and hematocrit were noted. D-dimer was greater than 20. CT angiogram revealed bilateral pulmonary emboli. IMPRESSION: 1. Acute hypoxemic respiratory failure. 2. Acute pulmonary embolism with cor pulmonale. 3. Possible COVID-19. 4[address] chest revealing ground glass opacities. 5. Hypertension. 6. History of bronchitis. 7. Elevated troponin. 8. Acute kidney injury. 9. Leukocytosis. PLAN: 1. As indicated above, the patient intubated. We will continue mechanical ventilation, adjust minute ventilation to normalize pH. 2. The patient not in sync with mechanical ventilation. We will initiate paralytic agent. 3. Hydrate. 4. IV fluids. 5. Suspect elevated troponin related to acute pulmonary embolism. We will consult Cardiology. 6. Repeat SARS-CoV-2. 7. Initiate steroids. 8. Empiric antibiotics. I do appreciate the privilege in sharing in the patient's care. Total cumulative critical care time of one hour from 9:05 a.m. to 10:05 a.m. ALVIN RAMSEY MD DR: SAFIA/ambika JOB#: [id number] / [id number]
--- NOTE | 2020-07-04 16:47 | PDOC1 ---
History and Physical Date of Admission Date of Admission DATE: 07/04/20 TIME: 16:28 Identification/Chief Complaint Chief Complaint Shortness of breath Source Source: Chart review History of Present Illness History of Present Illness Patient is 49-year-old male with past medical history of hypertension, who presents to the ED with complaints of worsening shortness of breath over the past 5 days. Associated sore throat, fatigue, and generalized weakness. Patient was reportedly tested for COVID-19 last Thursday, but he had negative test results. His symptoms acutely worsened yesterday. Upon arrival to the ER his oxygen saturation was 60% on room air. He was placed on BiPAP and admitted to the ICU. Patient was subsequently intubated due to worsening respiratory failure. Past Medical History Past Medical History Hypertension Past Surgical History Past Surgical History: No pertinent history Family History Family History: Family History Unknown Social History Smoke: No ALCOHOL: occassional Drugs: None Current Problem List Problem List Problems Medical Problems: (1) Acute respiratory failure with hypoxia Status: Acute (2) PRIYA (acute kidney injury) Status: Acute (3) Elevated troponin I level Status: Acute (4) Pulmonary emboli Status: Acute (5) Suspected COVID-19 virus infection Status: Acute Current Medications Current Medications Current Medications Ceftriaxone Sodium (Rocephin) 1 gm 1X ONCE IVP Last administered on 07/03/20at 20:11; Start 07/03/20 at 19:15; Stop 07/03/20 at 19:19; Status DC Azithromycin (Zithromax) 500 mg 1X ONCE PO Last administered on 07/03/20at 20:11; Start 07/03/20 at 19:15; Stop 07/03/20 at 19:19; Status DC Sodium Chloride 1,000 ml @ 1,000 mls/hr 1X ONCE IV Last administered on 07/03/20at 20:11; Start 07/03/20 at 19:15; Stop 07/03/20 at 20:14; Status DC Sodium Chloride 1,000 ml @ 1,000 mls/hr 1X ONCE IV Last administered on 07/03/20at 19:15; Start 07/03/20 at 19:15; Stop 07/03/20 at 20:14; Status DC Iohexol (Omnipaque 350 Mg/ml) 90 ml 1X ONCE IV Last administered on 07/03/20at 21:00; Start 07/03/20 at 20:45; Stop 07/03/20 at 20:46; Status DC Info (CONTRAST GIVEN -- Rx MONITORING) 1 each PRN DAILY PRN MC SEE COMMENTS; Start 07/03/20 at 20:45; Stop 07/05/20 at 20:44 Enoxaparin Sodium (Lovenox 150mg Syringe) 150 mg 1X ONCE SQ Last administered on 07/03/20at 22:45; Start 07/03/20 at 23:00; Stop 07/03/20 at 23:01; Status DC Ondansetron HCl (Zofran) 4 mg PRN Q8HRS PRN IV NAUSEA/VOMITING 1ST CHOICE; Start 07/03/20 at 22:30; Stop 07/04/20 at 22:29 Morphine Sulfate (Morphine Sulfate) 2 mg PRN Q2HR PRN IV SEVERE PAIN 7-10; Start 07/03/20 at 22:30; Stop 07/04/20 at 22:29 Sodium Chloride 1,000 ml @ 100 mls/hr Q10H IV Last administered on 07/04/20at 09:42; Start 07/03/20 at 23:00; Stop 07/04/20 at 22:59 Acetaminophen (Tylenol) 650 mg PRN Q4HRS PRN PO FEVER > 100.3'F; Start 07/03/20 at 22:30; Stop 07/04/20 at 22:29 Throat Lozenges (Cepacol Sore Throat Lozenge) 1 lety PRN Q2HRS PRN PO SORE THROAT; Start 07/04/20 at 01:15 Furosemide (Lasix) 20 mg 1X ONCE IVP Last administered on 07/04/20at 10:10; Start 07/04/20 at 10:00; Stop 07/04/20 at 10:01; Status DC Succinylcholine Chloride (Anectine) 200 mg STK-MED ONCE .ROUTE ; Start 07/04/20 at 09:09; Stop 07/04/20 at 09:09; Status DC Etomidate (Amidate) 20 mg STK-MED ONCE IV ; Start 07/04/20 at 09:09; Stop 07/04/20 at 09:09; Status DC Fentanyl Citrate 30 ml @ 0 mls/hr CONT PRN IV SEE PROTOCOL Last administered on 07/04/20at 09:36; Start 07/04/20 at 09:15; Stop 07/04/20 at 14:36; Status DC Propofol 100 ml @ 0 mls/hr CONT PRN IV SEE PROTOCOL Last administered on 07/04/20at 10:37; Start 07/04/20 at 09:15 Midazolam HCl 100 ml @ 0 mls/hr CONT PRN IV SEE PROTOCOL Last administered on 07/04/20at 14:53; Start 07/04/20 at 09:15 Midazolam HCl (Versed) 5 mg 1X STAT IV Last administered on 07/04/20at 09:41; Start 07/04/20 at 09:21; Stop 07/04/20 at 09:22; Status DC Midazolam HCl (Versed) 5 mg STK-MED ONCE .ROUTE ; Start 07/04/20 at 09:21; Stop 07/04/20 at 09:21; Status DC Etomidate (Amidate) 10 mg 1X ONCE IV Last administered on 07/04/20at 09:37; Start 07/04/20 at 09:30; Stop 07/04/20 at 09:31; Status DC Succinylcholine Chloride (Anectine) 200 mg 1X ONCE IV Last administered on 07/04/20at 09:38; Start 07/04/20 at 09:30; Stop 07/04/20 at 09:31; Status DC Vecuronium [place] (Norcuron Bolus) 6 mg 1X ONCE IV Last administered on 07/04/20at 09:38; Start 07/04/20 at 09:45; Stop 07/04/20 at 09:46; Status DC Vecuronium [place] (Norcuron Bolus) 10 mg STK-MED ONCE IV ; Start 07/04/20 at 09:33; Stop 07/04/20 at 09:33; Status DC Pantoprazole Sodium (PROTONIX VIAL for IV PUSH) 40 mg DAILYAC IVP Last adm inistered on 07/04/20at 12:27; Start 07/04/20 at 12:30 Methylprednisolone Sodium Succinate (SOLU-Medrol 40MG VIAL) 40 mg Q8HRS IV Last administered on 07/04/20at 14:10; Start 07/04/20 at 14:00 Piperacillin Sod/ Tazobactam Sod (Zosyn Per Pharmacy) 1 each PRN DAILY PRN MC SEE COMMENTS; Start 07/04/20 at 12:00 Heparin Sodium/ Dextrose 250 ml @ 13.28 mls/ hr CONT PRN IV PER PROTOCOL Last administered on 07/04/20at 12:24; Start 07/04/20 at 12:00 Heparin Sodium (Porcine) (Heparin Sodium) 2,500 unit PRN Q6HRS PRN IV FOR UFH LEVEL LESS THAN 0.2; Start 07/04/20 at 12:00 Heparin Sodium (Porcine) (Heparin Sodium) 1,250 unit PRN Q6HRS PRN IV FOR UFH LEVEL 0.2 - 0.29; Start 07/04/20 at 12:00 Piperacillin Sod/ Tazobactam Sod 3.375 gm/Sodium Chloride 50 ml @ 100 mls/hr Q6HRS IV Last administered on 07/04/20at 14:10; Start 07/04/20 at 12:00 Zinc Sulfate (Orazinc) 220 mg DAILY PO ; Start 07/05/20 at 09:00 Ascorbic Acid (Vitamin C) 500 mg Q6HRS PO ; Start 07/04/20 at 18:00 Vitamin D (Vitamin D3) 5,000 unit DAILY PO ; Start 07/05/20 at 09:00 Vecuronium [place] (Norcuron Bolus) 6 mg 1X ONCE IV Last administered on 07/04/20at 13:27; Start 07/04/20 at 13:15; Stop 07/04/20 at 13:16; Status DC Norepinephrine Bitartrate 8 mg/ Dextrose 258 ml @ 16.061 mls/ hr CONT PRN IV PER PROTOCOL Last administered on 07/04/20at 13:26; Start 07/04/20 at 13:15 Fentanyl Citrate 55 ml @ 0 mls/hr CONT PRN IV SEE PROTOCOL Last administered on 07/04/20at 15:20; Start 07/04/20 at 14:45 Allergies Allergies: Coded Allergies: No Known Drug Allergies (Unverified , 07/03/20) ROS Review of System Unable to obtain due to clinical condition Physical Exam Physical Exam General: No acute distress HEENT: PERRLA, EOMI Lungs: Intubated and mechanically ventilated Heart: RRR Cardiovascular: S1, S2 Abdomen: Nondistended Extremities: No clubbing, No cyanosis Skin: No rashes, No significant lesion Neuro: Sedated Psych/Mental Status: Sedated Vitals Vitals Vital Signs Date Time Temp Pulse Resp B/P (MAP) Pulse Ox O2 Delivery O2 Flow Rate FiO2 07/04/20 16:00 128/56 (80) 07/04/20 16:00 Mechanical Ventilator 07/04/20 16:00 62 30 100 07/04/20 15:00 99.1 99.1 07/03/20 19:20 15.0 Labs Labs Laboratory Tests Test 07/03/20 18:20 07/03/20 18:22 07/03/20 18:45 07/03/20 19:35 White Blood Count 18.3 x10^3/uL (4.0-11.0) Red Blood Count 4.92 x10^6/uL (4.30-5.70) Hemoglobin 16.4 g/dL (13.0-17.5) Hematocrit 47.8 % (39.0-53.0) Mean Corpuscular Volume 97 fL (79-100) Mean Corpuscular Hemoglobin 33 pg (25-35) Mean Corpuscular Hemoglobin Concent 34 g/dL (31-37) Red Cell Distribution Width 13.2 % (11.5-14.5) Platelet Count 190 x10^3/uL (140-400) Neutrophils (%) (Auto) 85 % (31-73) Lymphocytes (%) (Auto) 9 % (24-48) Monocytes (%) (Auto) 6 % (0-9) Eosinophils (%) (Auto) 1 % (0-3) Basophils (%) (Auto) 0 % (0-3) Neutrophils # (Auto) 15.5 x10^3/uL (1.8-7.7) Lymphocytes # (Auto) 1.6 x10^3/uL (1.0-4.8) Monocytes # (Auto) 1.0 x10^3/uL (0.0-1.1) Eosinophils # (Auto) 0.1 x10^3/uL (0.0-0.7) Basophils # (Auto) 0.0 x10^3/uL (0.0-0.2) Segmented Neutrophils % 70 % (35-66) Band Neutrophils % 5 % (0-9) Lymphocytes % 13 % (24-48) Monocytes % 3 % (0-10) Eosinophils % 1 % (0-5) Metamyelocytes % 5 % (0-0) Myelocytes % 3 % (0-0) Toxic Granulation Slight Platelet Estimate Adequate (ADEQUATE) Platelet Clumps, EDTA Present Large Platelets Occ Giant Platelets Occ Sodium Level 129 mmol/L (136-145) Potassium Level 3.9 mmol/L (3.5-5.1) Chloride Level 90 mmol/L (98-107) Carbon Dioxide Level 26 mmol/L (21-32) Anion Gap 13 (6-14) Blood Urea Nitrogen 31 mg/dL (8-26) Creatinine 1.5 mg/dL (0.7-1.3) Estimated GFR (Cockcroft-Gault) 49.5 BUN/Creatinine Ratio 21 (6-20) Glucose Level 188 mg/dL (70-99) Lactic Acid Level 3.8 mmol/L (0.4-2.0) Calcium Level 8.1 mg/dL (8.5-10.1) Total Bilirubin 0.5 mg/dL (0.2-1.0) Aspartate Amino Transf (AST/SGOT) 39 U/L (15-37) Alanine Aminotransferase (ALT/SGPT) 37 U/L (16-63) Alkaline Phosphatase 102 U/L (46-116) Creatine Kinase 114 U/L (39-308) Troponin I Quantitative 0.136 ng/mL (0.000-0.055) C-Reactive Protein, Quantitative 243.4 mg/L (0-3.3) ER-Egh-K-Type Natriuretic Peptide 2022 pg/mL (0-124) Total Protein 7.5 g/dL (6.4-8.2) Albumin 2.4 g/dL (3.4-5.0) Albumin/Globulin Ratio 0.5 (1.0-1.7) Influenza Type A Antigen Negative (NEGATIVE) Influenza Type B Antigen Negative (NEGATIVE) D-Dimer ([place]) > 20.00 ug/mlFEU O2 Saturation 94 % (92-99) Arterial Blood pH 7.47 (7.35-7.45) Arterial Blood pCO2 at Patient Temp 28 mmHg (35-46) Arterial Blood pO2 at Patient Temp 73 mmHg (75-108) Arterial Blood HCO3 19 mmol/L (21-28) Arterial Blood Base Excess -3 mmol/L (-3-3) FiO2 100 Test 07/03/20 23:09 07/04/20 00:55 07/04/20 07:40 07/04/20 11:00 Lactic Acid Level 1.7 mmol/L (0.4-2.0) O2 Saturation 95 % (92-99) 94 % (92-99) Arterial Blood pH 7.43 (7.35-7.45) 7.43 (7.35-7.45) Arterial Blood pCO2 at Patient Temp 33 mmHg (35-46) 38 mmHg (35-46) Arterial Blood pO2 at Patient Temp 79 mmHg (75-108) 71 mmHg (75-108) Arterial Blood HCO3 22 mmol/L (21-28) 25 mmol/L (21-28) Arterial Blood Base Excess -2 mmol/L (-3-3) 1 mmol/L (-3-3) FiO2 85 85 White Blood Count 12.4 x10^3/uL (4.0-11.0) Red Blood Count 3.48 x10^6/uL (4.30-5.70) Hemoglobin 11.4 g/dL (13.0-17.5) Hematocrit 34.3 % (39.0-53.0) Mean Corpuscular Volume 99 fL (79-100) Mean Corpuscular Hemoglobin 33 pg (25-35) Mean Corpuscular Hemoglobin Concent 33 g/dL (31-37) Red Cell Distribution Width 12.9 % (11.5-14.5) Platelet Count 135 x10^3/uL (140-400) Neutrophils (%) (Auto) 90 % (31-73) Lymphocytes (%) (Auto) 5 % (24-48) Monocytes (%) (Auto) 4 % (0-9) Eosinophils (%) (Auto) 2 % (0-3) Basophils (%) (Auto) 0 % (0-3) Neutrophils # (Auto) 11.2 x10^3/uL (1.8-7.7) Lymphocytes # (Auto) 0.6 x10^3/uL (1.0-4.8) Monocytes # (Auto) 0.5 x10^3/uL (0.0-1.1) Eosinophils # (Auto) 0.2 x10^3/uL (0.0-0.7) Basophils # (Auto) 0.0 x10^3/uL (0.0-0.2) Sodium Level 136 mmol/L (136-145) Potassium Level 4.1 mmol/L (3.5-5.1) Chloride Level 101 mmol/L (98-107) Carbon Dioxide Level 26 mmol/L (21-32) Anion Gap 9 (6-14) Blood Urea Nitrogen 17 mg/dL (8-26) Creatinine 0.9 mg/dL (0.7-1.3) Estimated GFR (Cockcroft-Gault) 89.3 Glucose Level 150 mg/dL (70-99) Calcium Level 7.2 mg/dL (8.5-10.1) Magnesium Level 2.1 mg/dL (1.8-2.4) Troponin I Quantitative 0.214 ng/mL (0.000-0.055) Triglycerides Level 190 mg/dL (0-150) Cholesterol Level 83 mg/dL (0-200) LDL Cholesterol, Calculated 39 mg/dL (0-100) VLDL Cholesterol, Calculated 38 mg/dL (0-40) Non-HDL Cholesterol Calculated 77 mg/dL (0-129) HDL Cholesterol 6 mg/dL (40-60) Cholesterol/HDL Ratio 13.8 Test 07/04/20 11:20 O2 Saturation 94 % (92-99) Arterial Blood pH 7.35 (7.35-7.45) Arterial Blood pCO2 at Patient Temp 48 mmHg (35-46) Arterial Blood pO2 at Patient Temp 80 mmHg (75-108) Arterial Blood HCO3 26 mmol/L (21-28) Arterial Blood Base Excess 0 mmol/L (-3-3) FiO2 100 Laboratory Tests Test 07/03/20 18:20 07/03/20 18:22 07/03/20 18:45 07/03/20 19:35 White Blood Count 18.3 x10^3/uL (4.0-11.0) Red Blood Count 4.92 x10^6/uL (4.30-5.70) Hemoglobin 16.4 g/dL (13.0-17.5) Hematocrit 47.8 % (39.0-53.0) Mean Corpuscular Volume 97 fL (79-100) Mean Corpuscular Hemoglobin 33 pg (25-35) Mean Corpuscular Hemoglobin Concent 34 g/dL (31-37) Red Cell Distribution Width 13.2 % (11.5-14.5) Platelet Count 190 x10^3/uL (140-400) Neutrophils (%) (Auto) 85 % (31-73) Lymphocytes (%) (Auto) 9 % (24-48) Monocytes (%) (Auto) 6 % (0-9) Eosinophils (%) (Auto) 1 % (0-3) Basophils (%) (Auto) 0 % (0-3) Neutrophils # (Auto) 15.5 x10^3/uL (1.8-7.7) Lymphocytes # (Auto) 1.6 x10^3/uL (1.0-4.8) Monocytes # (Auto) 1.0 x10^3/uL (0.0-1.1) Eosinophils # (Auto) 0.1 x10^3/uL (0.0-0.7) Basophils # (Auto) 0.0 x10^3/uL (0.0-0.2) Segmented Neutrophils % 70 % (35-66) Band Neutrophils % 5 % (0-9) Lymphocytes % 13 % (24-48) Monocytes % 3 % (0-10) Eosinophils % 1 % (0-5) Metamyelocytes % 5 % (0-0) Myelocytes % 3 % (0-0) Toxic Granulation Slight Platelet Estimate Adequate (ADEQUATE) Platelet Clumps, EDTA Present Large Platelets Occ Giant Platelets Occ Sodium Level 129 mmol/L (136-145) Potassium Level 3.9 mmol/L (3.5-5.1) Chloride Level 90 mmol/L (98-107) Carbon Dioxide Level 26 mmol/L (21-32) Anion Gap 13 (6-14) Blood Urea Nitrogen 31 mg/dL (8-26) Creatinine 1.5 mg/dL (0.7-1.3) Estimated GFR (Cockcroft-Gault) 49.5 BUN/Creatinine Ratio 21 (6-20) Glucose Level 188 mg/dL (70-99) Lactic Acid Level 3.8 mmol/L (0.4-2.0) Calcium Level 8.1 mg/dL (8.5-10.1) Total Bilirubin 0.5 mg/dL (0.2-1.0) Aspartate Amino Transf (AST/SGOT) 39 U/L (15-37) Alanine Aminotransferase (ALT/SGPT) 37 U/L (16-63) Alkaline Phosphatase 102 U/L (46-116) Creatine Kinase 114 U/L (39-308) Troponin I Quantitative 0.136 ng/mL (0.000-0.055) C-Reactive Protein, Quantitative 243.4 mg/L (0-3.3) RX-Etm-B-Type Natriuretic Peptide 2022 pg/mL (0-124) Total Protein 7.5 g/dL (6.4-8.2) Albumin 2.4 g/dL (3.4-5.0) Albumin/Globulin Ratio 0.5 (1.0-1.7) Influenza Type A Antigen Negative (NEGATIVE) Influenza Type B Antigen Negative (NEGATIVE) D-Dimer ([place]) > 20.00 ug/mlFEU O2 Saturation 94 % (92-99) Arterial Blood pH 7.47 (7.35-7.45) Arterial Blood pCO2 at Patient Temp 28 mmHg (35-46) Arterial Blood pO2 at Patient Temp 73 mmHg (75-108) Arterial Blood HCO3 19 mmol/L (21-28) Arterial Blood Base Excess -3 mmol/L (-3-3) FiO2 100 Test 07/03/20 23:09 07/04/20 00:55 07/04/20 07:40 07/04/20 11:00 Lactic Acid Level 1.7 mmol/L (0.4-2.0) O2 Saturation 95 % (92-99) 94 % (92-99) Arterial Blood pH 7.43 (7.35-7.45) 7.43 (7.35-7.45) Arterial Blood pCO2 at Patient Temp 33 mmHg (35-46) 38 mmHg (35-46) Arterial Blood pO2 at Patient Temp 79 mmHg (75-108) 71 mmHg (75-108) Arterial Blood HCO3 22 mmol/L (21-28) 25 mmol/L (21-28) Arterial Blood Base Excess -2 mmol/L (-3-3) 1 mmol/L (-3-3) FiO2 85 85 White Blood Count 12.4 x10^3/uL (4.0-11.0) Red Blood Count 3.48 x10^6/uL (4.30-5.70) Hemoglobin 11.4 g/dL (13.0-17.5) Hematocrit 34.3 % (39.0-53.0) Mean Corpuscular Volume 99 fL (79-100) Mean Corpuscular Hemoglobin 33 pg (25-35) Mean Corpuscular Hemoglobin Concent 33 g/dL (31-37) Red Cell Distribution Width 12.9 % (11.5-14.5) Platelet Count 135 x10^3/uL (140-400) Neutrophils (%) (Auto) 90 % (31-73) Lymphocytes (%) (Auto) 5 % (24-48) Monocytes (%) (Auto) 4 % (0-9) Eosinophils (%) (Auto) 2 % (0-3) Basophils (%) (Auto) 0 % (0-3) Neutrophils # (Auto) 11.2 x10^3/uL (1.8-7.7) Lymphocytes # (Auto) 0.6 x10^3/uL (1.0-4.8) Monocytes # (Auto) 0.5 x10^3/uL (0.0-1.1) Eosinophils # (Auto) 0.2 x10^3/uL (0.0-0.7) Basophils # (Auto) 0.0 x10^3/uL (0.0-0.2) Sodium Level 136 mmol/L (136-145) Potassium Level 4.1 mmol/L (3.5-5.1) Chloride Level 101 mmol/L (98-107) Carbon Dioxide Level 26 mmol/L (21-32) Anion Gap 9 (6-14) Blood Urea Nitrogen 17 mg/dL (8-26) Creatinine 0.9 mg/dL (0.7-1.3) Estimated GFR (Cockcroft-Gault) 89.3 Glucose Level 150 mg/dL (70-99) Calcium Level 7.2 mg/dL (8.5-10.1) Magnesium Level 2.1 mg/dL (1.8-2.4) Troponin I Quantitative 0.214 ng/mL (0.000-0.055) Triglycerides Level 190 mg/dL (0-150) Cholesterol Level 83 mg/dL (0-200) LDL Cholesterol, Calculated 39 mg/dL (0-100) VLDL Cholesterol, Calculated 38 mg/dL (0-40) Non-HDL Cholesterol Calculated 77 mg/dL (0-129) HDL Cholesterol 6 mg/dL (40-60) Cholesterol/HDL Ratio 13.8 Test 07/04/20 11:20 O2 Saturation 94 % (92-99) Arterial Blood pH 7.35 (7.35-7.45) Arterial Blood pCO2 at Patient Temp 48 mmHg (35-46) Arterial Blood pO2 at Patient Temp 80 mmHg (75-108) Arterial Blood HCO3 26 mmol/L (21-28) Arterial Blood Base Excess 0 mmol/L (-3-3) FiO2 100 Images Images Exam: CT of chest with contrast INDICATION: Short of air TECHNIQUE: Sequential axial images through the chest obtained following the administration of 90 mL of Omni 350 IV contrast. Sagittal and coronal reformatted images were reconstructed from the axial data and reviewed. 3-D reformatted images were reconstructed from the axial data and reviewed. Comparisons: Chest x-ray same day FINDINGS: Visualized portions of the thyroid are unremarkable. Numerous prominent and mildly enlarged mediastinal lymph nodes are noted diffusely. Heart size is normal. No pericardial effusion. Thoracic aorta has a normal course and caliber. Pulmonary artery is not enlarged. There are segmental and subsegmental pulmonary emboli scattered throughout the right and left lower lobes. Airways are patent. Diffuse groundglass opacity noted throughout the lungs bilaterally with mild peripheral sparing and a greater distribution at the lower lobes. No pneumothorax. No pleural effusion or thickening. Visualized upper abdomen is unremarkable. No suspicious osseous lesions or acute fractures. IMPRESSION: 1. Scattered pulmonary emboli within segmental and subsegmental branches of the right and left lower lobes. No evidence for right heart strain on this study. 2. Diffuse groundglass opacity throughout the lungs described above this may relate to either edema or atypical infectious process. Correlate for viral causes. VTE Prophylaxis Ordered VTE Prophylaxis Devices: No VTE Pharmacological Prophylaxi: Yes Assessment/Plan Assessment/Plan Acute hypoxic respiratory failure requiring intubation COVID-19 PUI Subsegmental bilateral PE Leukocytosis NSTEMI AKA Lactic acidosis Hyponatremia Plan: Patient was intubated this morning after failing on BiPAP Consultations placed to pulmonology Consultations placed to cardiology Heparin infusion will address bilateral PEs and NSTEMI Solu-Medrol 40 mg every 8 hours Zosyn 3.75 mg every 6 hours IV fluids Repeat COVID-19 pending Protonix FEN - NPO PPX - Heparin FULL CODE Dispo - inpatient for above Justifications for Admission Other Justification SHERLY DUKES MD Jul 04, 2020 16:47
[2020-07-04] MEDS: VECURONIUM BOLUS 10 MG VIAL. IV PRN (17:20)
[2020-07-04] MEDS: ASCORBIC ACID 500 MG TABLET PO SCH (18:00)
[2020-07-04 18:29] LABS: BILIRUBIN,URINE NEGATIVE (NEG); CLARITY,URINE TURBID; COLOR,URINE AMBER; NITRITE,URINE NEGATIVE (NEG); PROTEIN,URINE 30 mg/dL (NEG-TRACE)
[2020-07-04 18:45] LABS: AMORPHOUS SEDIMENT,UR PRESENT /HPF; BACTERIA,URINE 0 /HPF (0-FEW)
[2020-07-05] VITALS (28 sets, daily range): BP systolic 78–148; BP diastolic 42–120
[2020-07-05] MEDS: MIDAZOLAM 100mg/100ml NS BAG 100 ML IV PRN ×3 (00:32→17:44)
[2020-07-05] MEDS: ASCORBIC ACID 500 MG TABLET PO SCH ×5 (00:33→23:38)
[2020-07-05] MEDS: methylPREDNISolone SOD SUCC PF 40 MG/ML VIAL. IV SCH ×4 (00:33→21:39)
[2020-07-05] MEDS: NOREPINEPHRINE VIAL 8 MG in IV DEXTROSE 5% 250 ML IV PRN (00:33)
[2020-07-05] MEDS: PIPERACILLIN/TAZOBACTAM 3.375 GM in IV NORMAL SALINE 50ML 50 ML IV SCH ×5 (00:34→23:38)
[2020-07-05] MEDS: IV NORMAL SALINE 1000ML BAG 1,000 ML IV SCH (00:35)
[2020-07-05 07:57] LABS: BASO % 0 % (0-3); EOS % 0 % (0-3); HEMATOCRIT 40.6 % (39.0-53.0); HEMOGLOBIN 13.7 g/dL (13.0-17.5); LYMPH # 0.8 x10^3/uL (1.0-4.8); LYMPH % 4 % (24-48); MEAN CORPUSCULAR HEMOGLOBIN 33 pg (25-35); MEAN CORPUSCULAR HGB CONC 34 g/dL (31-37); MEAN CORPUSCULAR VOLUME 98 fL (79-100); MONO # 0.8 x10^3/uL (0.0-1.1); MONO % 4 % (0-9); NEUT # 16.6 x10^3/uL (1.8-7.7); NEUT % 92 % (31-73); PLATELET COUNT 189 x10^3/uL (140-400); RED BLOOD COUNT 4.13 x10^6/uL (4.30-5.70); WHITE BLOOD COUNT 18.2 x10^3/uL (4.0-11.0)
[2020-07-05] MEDS: PANTOPRAZOLE IV PUSH 40 MG VIAL. IVP SCH (08:05)
[2020-07-05] MEDS: CHOLECALCIFEROL (VITAMIN D3) 5,000 UNIT CAPSULE PO SCH (08:06)
[2020-07-05] MEDS: ZINC SULFATE 220 MG CAPSULE. PO SCH (08:06)
[2020-07-05] MEDS: HEPARIN for IV BOLUS 10,000 UNIT/10 ML VIAL. IV PRN ×2 (08:08→13:51)
[2020-07-05 08:15] LABS: CALCIUM 7.9 mg/dL (8.5-10.1); CREATININE 0.8 mg/dL (0.7-1.3); GFR 102.3; POTASSIUM 4.5 mmol/L (3.5-5.1)
[2020-07-05 08:21] LABS: ALBUMIN 1.7 g/dL (3.4-5.0); ALBUMIN/GLOBULIN RATIO 0.4 (1.0-1.7); MAGNESIUM 2.7 mg/dL (1.8-2.4); TOTAL BILIRUBIN 0.3 mg/dL (0.2-1.0); TOTAL PROTEIN 6.2 g/dL (6.4-8.2)
[2020-07-05] MEDS: HEPARIN 25,000UTS/250ML PREMIX 250 ML IV PRN (08:33)
--- NOTE | 2020-07-05 08:33 | PDOC ---
PULMONARY PROGRESS NOTES DATE: 07/05/20 TIME: 08:33 Subjective Remains on mechanical ventilation, on a percent and PEEP of 8 Now off vasopressor medications Use of as needed paralytic overnight for ventilatory asynchrony minimal secretions No other concerns from nursing Vitals Vital Signs Date Time Temp Pulse Resp B/P (MAP) Pulse Ox O2 Delivery O2 Flow Rate FiO2 07/05/20 07:21 97 Ventilator 07/05/20 06:00 70 36 125/78 (94) 07/05/20 01:00 98.4 98.4 Comments Patient seen during pandemic visual exam performed Intubated/sedated no Accessory muscle use No obvious rash or edema Labs Laboratory Tests Test 07/03/20 18:20 07/03/20 18:22 07/03/20 18:45 07/03/20 19:35 White Blood Count 18.3 x10^3/uL (4.0-11.0) Red Blood Count 4.92 x10^6/uL (4.30-5.70) Hemoglobin 16.4 g/dL (13.0-17.5) Hematocrit 47.8 % (39.0-53.0) Mean Corpuscular Volume 97 fL (79-100) Mean Corpuscular Hemoglobin 33 pg (25-35) Mean Corpuscular Hemoglobin Concent 34 g/dL (31-37) Red Cell Distribution Width 13.2 % (11.5-14.5) Platelet Count 190 x10^3/uL (140-400) Neutrophils (%) (Auto) 85 % (31-73) Lymphocytes (%) (Auto) 9 % (24-48) Monocytes (%) (Auto) 6 % (0-9) Eosinophils (%) (Auto) 1 % (0-3) Basophils (%) (Auto) 0 % (0-3) Neutrophils # (Auto) 15.5 x10^3/uL (1.8-7.7) Lymphocytes # (Auto) 1.6 x10^3/uL (1.0-4.8) Monocytes # (Auto) 1.0 x10^3/uL (0.0-1.1) Eosinophils # (Auto) 0.1 x10^3/uL (0.0-0.7) Basophils # (Auto) 0.0 x10^3/uL (0.0-0.2) Segmented Neutrophils % 70 % (35-66) Band Neutrophils % 5 % (0-9) Lymphocytes % 13 % (24-48) Monocytes % 3 % (0-10) Eosinophils % 1 % (0-5) Metamyelocytes % 5 % (0-0) Myelocytes % 3 % (0-0) Toxic Granulation Slight Platelet Estimate Adequate (ADEQUATE) Platelet Clumps, EDTA Present Large Platelets Occ Giant Platelets Occ Sodium Level 129 mmol/L (136-145) Potassium Level 3.9 mmol/L (3.5-5.1) Chloride Level 90 mmol/L (98-107) Carbon Dioxide Level 26 mmol/L (21-32) Anion Gap 13 (6-14) Blood Urea Nitrogen 31 mg/dL (8-26) Creatinine 1.5 mg/dL (0.7-1.3) Estimated GFR (Cockcroft-Gault) 49.5 BUN/Creatinine Ratio 21 (6-20) Glucose Level 188 mg/dL (70-99) Lactic Acid Level 3.8 mmol/L (0.4-2.0) Calcium Level 8.1 mg/dL (8.5-10.1) Total Bilirubin 0.5 mg/dL (0.2-1.0) Aspartate Amino Transf (AST/SGOT) 39 U/L (15-37) Alanine Aminotransferase (ALT/SGPT) 37 U/L (16-63) Alkaline Phosphatase 102 U/L (46-116) Creatine Kinase 114 U/L (39-308) Troponin I Quantitative 0.136 ng/mL (0.000-0.055) C-Reactive Protein, Quantitative 243.4 mg/L (0-3.3) XM-Pko-I-Type Natriuretic Peptide 2022 pg/mL (0-124) Total Protein 7.5 g/dL (6.4-8.2) Albumin 2.4 g/dL (3.4-5.0) Albumin/Globulin Ratio 0.5 (1.0-1.7) Influenza Type A Antigen Negative (NEGATIVE) Influenza Type B Antigen Negative (NEGATIVE) D-Dimer ([place]) > 20.00 ug/mlFEU O2 Saturation 94 % (92-99) Arterial Blood pH 7.47 (7.35-7.45) Arterial Blood pCO2 at Patient Temp 28 mmHg (35-46) Arterial Blood pO2 at Patient Temp 73 mmHg (75-108) Arterial Blood HCO3 19 mmol/L (21-28) Arterial Blood Base Excess -3 mmol/L (-3-3) FiO2 100 Test 07/03/20 23:09 07/04/20 00:55 07/04/20 07:40 07/04/20 11:00 Lactic Acid Level 1.7 mmol/L (0.4-2.0) O2 Saturation 95 % (92-99) 94 % (92-99) Arterial Blood pH 7.43 (7.35-7.45) 7.43 (7.35-7.45) Arterial Blood pCO2 at Patient Temp 33 mmHg (35-46) 38 mmHg (35-46) Arterial Blood pO2 at Patient Temp 79 mmHg (75-108) 71 mmHg (75-108) Arterial Blood HCO3 22 mmol/L (21-28) 25 mmol/L (21-28) Arterial Blood Base Excess -2 mmol/L (-3-3) 1 mmol/L (-3-3) FiO2 85 85 White Blood Count 12.4 x10^3/uL (4.0-11.0) Red Blood Count 3.48 x10^6/uL (4.30-5.70) Hemoglobin 11.4 g/dL (13.0-17.5) Hematocrit 34.3 % (39.0-53.0) Mean Corpuscular Volume 99 fL (79-100) Mean Corpuscular Hemoglobin 33 pg (25-35) Mean Corpuscular Hemoglobin Concent 33 g/dL (31-37) Red Cell Distribution Width 12.9 % (11.5-14.5) Platelet Count 135 x10^3/uL (140-400) Neutrophils (%) (Auto) 90 % (31-73) Lymphocytes (%) (Auto) 5 % (24-48) Monocytes (%) (Auto) 4 % (0-9) Eosinophils (%) (Auto) 2 % (0-3) Basophils (%) (Auto) 0 % (0-3) Neutrophils # (Auto) 11.2 x10^3/uL (1.8-7.7) Lymphocytes # (Auto) 0.6 x10^3/uL (1.0-4.8) Monocytes # (Auto) 0.5 x10^3/uL (0.0-1.1) Eosinophils # (Auto) 0.2 x10^3/uL (0.0-0.7) Basophils # (Auto) 0.0 x10^3/uL (0.0-0.2) Sodium Level 136 mmol/L (136-145) Potassium Level 4.1 mmol/L (3.5-5.1) Chloride Level 101 mmol/L (98-107) Carbon Dioxide Level 26 mmol/L (21-32) Anion Gap 9 (6-14) Blood Urea Nitrogen 17 mg/dL (8-26) Creatinine 0.9 mg/dL (0.7-1.3) Estimated GFR (Cockcroft-Gault) 89.3 Glucose Level 150 mg/dL (70-99) Calcium Level 7.2 mg/dL (8.5-10.1) Magnesium Level 2.1 mg/dL (1.8-2.4) Troponin I Quantitative 0.214 ng/mL (0.000-0.055) Triglycerides Level 190 mg/dL (0-150) Cholesterol Level 83 mg/dL (0-200) LDL Cholesterol, Calculated 39 mg/dL (0-100) VLDL Cholesterol, Calculated 38 mg/dL (0-40) Non-HDL Cholesterol Calculated 77 mg/dL (0-129) HDL Cholesterol 6 mg/dL (40-60) Cholesterol/HDL Ratio 13.8 Test 07/04/20 11:20 07/04/20 17:30 07/04/20 19:05 07/05/20 06:40 O2 Saturation 94 % (92-99) Arterial Blood pH 7.35 (7.35-7.45) Arterial Blood pCO2 at Patient Temp 48 mmHg (35-46) Arterial Blood pO2 at Patient Temp 80 mmHg (75-108) Arterial Blood HCO3 26 mmol/L (21-28) Arterial Blood Base Excess 0 mmol/L (-3-3) FiO2 100 Urine Collection Type Unknown Urine Color [place] Urine Clarity Turbid Urine pH 6.0 (<5.0-8.0) Urine Specific [place] >=1.030 (1.000-1.030) Urine Protein 30 mg/dL (NEG-TRACE) Urine Glucose (UA) Negative mg/dL (NEG) Urine Ketones (Stick) 40 mg/dL (NEG) Urine Blood Moderate (NEG) Urine Nitrite Negative (NEG) Urine Bilirubin Negative (NEG) Urine Urobilinogen Dipstick 1.0 mg/dL (0.2 mg/dL) Urine Leukocyte Esterase Negative (NEG) Urine RBC 11-20 /HPF (0-2) Urine WBC 1-4 /HPF (0-4) Urine Amorphous Sediment Present /HPF Urine Bacteria 0 /HPF (0-FEW) Urine Mucus Mod /LPF Heparin Anti-Xa Act, Unfractionated > 1.10 IU/mL (0.30-0.70) < 0.10 IU/mL (0.30-0.70) White Blood Count 18.2 x10^3/uL (4.0-11.0) Red Blood Count 4.13 x10^6/uL (4.30-5.70) Hemoglobin 13.7 g/dL (13.0-17.5) Hematocrit 40.6 % (39.0-53.0) Mean Corpuscular Volume 98 fL (79-100) Mean Corpuscular Hemoglobin 33 pg (25-35) Mean Corpuscular Hemoglobin Concent 34 g/dL (31-37) Red Cell Distribution Width 13.0 % (11.5-14.5) Platelet Count 189 x10^3/uL (140-400) Neutrophils (%) (Auto) 92 % (31-73) Lymphocytes (%) (Auto) 4 % (24-48) Monocytes (%) (Auto) 4 % (0-9) Eosinophils (%) (Auto) 0 % (0-3) Basophils (%) (Auto) 0 % (0-3) Neutrophils # (Auto) 16.6 x10^3/uL (1.8-7.7) Lymphocytes # (Auto) 0.8 x10^3/uL (1.0-4.8) Monocytes # (Auto) 0.8 x10^3/uL (0.0-1.1) Eosinophils # (Auto) 0.0 x10^3/uL (0.0-0.7) Basophils # (Auto) 0.0 x10^3/uL (0.0-0.2) Sodium Level 137 mmol/L (136-145) Potassium Level 4.5 mmol/L (3.5-5.1) Chloride Level 102 mmol/L (98-107) Carbon Dioxide Level 26 mmol/L (21-32) Anion Gap 9 (6-14) Blood Urea Nitrogen 16 mg/dL (8-26) Creatinine 0.8 mg/dL (0.7-1.3) Estimated GFR (Cockcroft-Gault) 102.3 BUN/Creatinine Ratio 20 (6-20) Glucose Level 265 mg/dL (70-99) Calcium Level 7.9 mg/dL (8.5-10.1) Magnesium Level 2.7 mg/dL (1.8-2.4) Total Bilirubin 0.3 mg/dL (0.2-1.0) Aspartate Amino Transf (AST/SGOT) 22 U/L (15-37) Alanine Aminotransferase (ALT/SGPT) 37 U/L (16-63) Alkaline Phosphatase 79 U/L (46-116) Total Protein 6.2 g/dL (6.4-8.2) Albumin 1.7 g/dL (3.4-5.0) Albumin/Globulin Ratio 0.4 (1.0-1.7) Laboratory Tests Test 07/04/20 11:00 07/04/20 11:20 07/04/20 17:30 07/04/20 19:05 White Blood Count 12.4 x10^3/uL (4.0-11.0) Red Blood Count 3.48 x10^6/uL (4.30-5.70) Hemoglobin 11.4 g/dL (13.0-17.5) Hematocrit 34.3 % (39.0-53.0) Mean Corpuscular Volume 99 fL (79-100) Mean Corpuscular Hemoglobin 33 pg (25-35) Mean Corpuscular Hemoglobin Concent 33 g/dL (31-37) Red Cell Distribution Width 12.9 % (11.5-14.5) Platelet Count 135 x10^3/uL (140-400) Neutrophils (%) (Auto) 90 % (31-73) Lymphocytes (%) (Auto) 5 % (24-48) Monocytes (%) (Auto) 4 % (0-9) Eosinophils (%) (Auto) 2 % (0-3) Basophils (%) (Auto) 0 % (0-3) Neutrophils # (Auto) 11.2 x10^3/uL (1.8-7.7) Lymphocytes # (Auto) 0.6 x10^3/uL (1.0-4.8) Monocytes # (Auto) 0.5 x10^3/uL (0.0-1.1) Eosinophils # (Auto) 0.2 x10^3/uL (0.0-0.7) Basophils # (Auto) 0.0 x10^3/uL (0.0-0.2) Sodium Level 136 mmol/L (136-145) Potassium Level 4.1 mmol/L (3.5-5.1) Chloride Level 101 mmol/L (98-107) Carbon Dioxide Level 26 mmol/L (21-32) Anion Gap 9 (6-14) Blood Urea Nitrogen 17 mg/dL (8-26) Creatinine 0.9 mg/dL (0.7-1.3) Estimated GFR (Cockcroft-Gault) 89.3 Glucose Level 150 mg/dL (70-99) Calcium Level 7.2 mg/dL (8.5-10.1) Magnesium Level 2.1 mg/dL (1.8-2.4) Troponin I Quantitative 0.214 ng/mL (0.000-0.055) Triglycerides Level 190 mg/dL (0-150) Cholesterol Level 83 mg/dL (0-200) LDL Cholesterol, Calculated 39 mg/dL (0-100) VLDL Cholesterol, Calculated 38 mg/dL (0-40) Non-HDL Cholesterol Calculated 77 mg/dL (0-129) HDL Cholesterol 6 mg/dL (40-60) Cholesterol/HDL Ratio 13.8 O2 Saturation 94 % (92-99) Arterial Blood pH 7.35 (7.35-7.45) Arterial Blood pCO2 at Patient Temp 48 mmHg (35-46) Arterial Blood pO2 at Patient Temp 80 mmHg (75-108) Arterial Blood HCO3 26 mmol/L (21-28) Arterial Blood Base Excess 0 mmol/L (-3-3) FiO2 100 Urine Collection Type Unknown Urine Color [place] Urine Clarity Turbid Urine pH 6.0 (<5.0-8.0) Urine Specific [place] >=1.030 (1.000-1.030) Urine Protein 30 mg/dL (NEG-TRACE) Urine Glucose (UA) Negative mg/dL (NEG) Urine Ketones (Stick) 40 mg/dL (NEG) Urine Blood Moderate (NEG) Urine Nitrite Negative (NEG) Urine Bilirubin Negative (NEG) Urine Urobilinogen Dipstick 1.0 mg/dL (0.2 mg/dL) Urine Leukocyte Esterase Negative (NEG) Urine RBC 11-20 /HPF (0-2) Urine WBC 1-4 /HPF (0-4) Urine Amorphous Sediment Present /HPF Urine Bacteria 0 /HPF (0-FEW) Urine Mucus Mod /LPF Heparin Anti-Xa Act, Unfractionated > 1.10 IU/mL (0.30-0.70) Test 07/05/20 06:40 White Blood Count 18.2 x10^3/uL (4.0-11.0) Red Blood Count 4.13 x10^6/uL (4.30-5.70) Hemoglobin 13.7 g/dL (13.0-17.5) Hematocrit 40.6 % (39.0-53.0) Mean Corpuscular Volume 98 fL (79-100) Mean Corpuscular Hemoglobin 33 pg (25-35) Mean Corpuscular Hemoglobin Concent 34 g/dL (31-37) Red Cell Distribution Width 13.0 % (11.5-14.5) Platelet Count 189 x10^3/uL (140-400) Neutrophils (%) (Auto) 92 % (31-73) Lymphocytes (%) (Auto) 4 % (24-48) Monocytes (%) (Auto) 4 % (0-9) Eosinophils (%) (Auto) 0 % (0-3) Basophils (%) (Auto) 0 % (0-3) Neutrophils # (Auto) 16.6 x10^3/uL (1.8-7.7) Lymphocytes # (Auto) 0.8 x10^3/uL (1.0-4.8) Monocytes # (Auto) 0.8 x10^3/uL (0.0-1.1) Eosinophils # (Auto) 0.0 x10^3/uL (0.0-0.7) Basophils # (Auto) 0.0 x10^3/uL (0.0-0.2) Heparin Anti-Xa Act, Unfractionated < 0.10 IU/mL (0.30-0.70) Sodium Level 137 mmol/L (136-145) Potassium Level 4.5 mmol/L (3.5-5.1) Chloride Level 102 mmol/L (98-107) Carbon Dioxide Level 26 mmol/L (21-32) Anion Gap 9 (6-14) Blood Urea Nitrogen 16 mg/dL (8-26) Creatinine 0.8 mg/dL (0.7-1.3) Estimated GFR (Cockcroft-Gault) 102.3 BUN/Creatinine Ratio 20 (6-20) Glucose Level 265 mg/dL (70-99) Calcium Level 7.9 mg/dL (8.5-10.1) Magnesium Level 2.7 mg/dL (1.8-2.4) Total Bilirubin 0.3 mg/dL (0.2-1.0) Aspartate Amino Transf (AST/SGOT) 22 U/L (15-37) Alanine Aminotransferase (ALT/SGPT) 37 U/L (16-63) Alkaline Phosphatase 79 U/L (46-116) Total Protein 6.2 g/dL (6.4-8.2) Albumin 1.7 g/dL (3.4-5.0) Albumin/Globulin Ratio 0.4 (1.0-1.7) Comments CXRIMPRESSION: 1. Interval endotracheal intubation, ET tube 5.5 cm above the omero. 2. Enteric tube placement with the tip in the left upper quadrant abdomen. 3. Diffuse bilateral pulmonary infiltrates. Impression . IMPRESSION: 1. Acute hypoxemic respiratory failure. 2. Acute pulmonary embolism with cor pulmonale. 3. Possible COVID-19. [address] chest revealing ground glass opacities. 5. Hypertension. 6. History of bronchitis. 7. Elevated troponin. 8. Acute kidney injury. 9. Leukocytosis. Plan . Continue current ventilatory support, currently on 100% and PEEP of 8 Follow chest x-ray and ABG, will reduce FiO2 to 80% Follow cardiology recommendations elevated troponin likely secondary to acute pulmonary embolism Continue empiric antibiotics with Zosyn Continue heparin drip for pulmonary embolism Continue IV steroids with taper dietitian for tube feeding recommendations--- continue tube feeding for nutritional support Vasopressors if needed to keep MAP greater than 65 DVT/GI prophylaxis, heparin drip/ Protonix Discussed with RN and RT Critical care [id number] ALVIN RAMSEY MD Jul 05, 2020 08:33
[2020-07-05 08:42] LABS: BASE EXCESS ABG -2 mmol/L (-3-3); HCO3 ABG 23 mmol/L (21-28); PCO2 ABG 38 mmHg (35-46); PO2 ABG 92 mmHg (75-108); SAT O2 ABG 97 % (92-99)
[2020-07-05] MEDS: VECURONIUM BOLUS 10 MG VIAL. IV PRN ×2 (09:39→13:02)
[2020-07-05 09:52] LABS: FIO2 ABG 100/VENT
--- NOTE | 2020-07-05 10:52 | PDOC ---
[facility] PROGRESS NOTE Date of Service DOS: DATE: 07/05/20 TIME: 10:45 Chief Complaint Chief Complaint Acute hypoxic respiratory failure requiring intubation COVID-19 PUI Subsegmental bilateral PE Leukocytosis NSTEMI AKA Lactic acidosis Hyponatremia Plan: Patient was intubated this morning after failing on BiPAP Consultations placed to pulmonology Consultations placed to cardiology Heparin infusion will address bilateral PEs and NSTEMI Solu-Medrol 40 mg every 8 hours Zosyn 3.75 mg every 6 hours IV fluids History of Present Illness History of Present Illness Patient is 49-year-old male with past medical history of hypertension, who presents to the ED with complaints of worsening shortness of breath over the past 5 days. Associated sore throat, fatigue, and generalized weakness. Patient was reportedly tested for COVID-19 last Thursday, but he had negative test results. His symptoms acutely worsened yesterday. Upon arrival to the ER his oxygen saturation was 60% on room air. He was placed on BiPAP and admitted to the ICU. Patient was subsequently intubated due to worsening respiratory failure. 07/05: Patient seen in ICU, still intubated and sedated. COVID-19 pending. Patient remains on heparin infusion. Discussed with RN, will try to have central line placed per anesthesia. Vitals/I&O Vitals/I&O: Vital Signs Date Time Temp Pulse Resp B/P (MAP) Pulse Ox O2 Delivery O2 Flow Rate FiO2 07/05/20 09:15 75 33 117/61 (79) 92 Ventilator 07/05/20 08:00 98.9 98.9 I & O 07/04/20 07/04/20 07/05/20 15:00 23:00 07:00 Intake Total 50 ml 2170.78 ml 1224 ml Output Total 850 ml 150 ml 965 ml Balance -800 ml 2020.78 ml 259 ml Physical Exam General: Other (Sedated) Heart: Regular rate (SR/ST) Lungs: Other (Intubated, some paroxysmal breathing patterns) Abdomen: Other (Nondistended) Extremities: No clubbing, No cyanosis Skin: No rashes, No breakdown Labs Labs: Laboratory Tests Test 07/04/20 11:00 07/04/20 11:20 07/04/20 17:30 07/04/20 19:05 White Blood Count 12.4 x10^3/uL (4.0-11.0) Red Blood Count 3.48 x10^6/uL (4.30-5.70) Hemoglobin 11.4 g/dL (13.0-17.5) Hematocrit 34.3 % (39.0-53.0) Mean Corpuscular Volume 99 fL (79-100) Mean Corpuscular Hemoglobin 33 pg (25-35) Mean Corpuscular Hemoglobin Concent 33 g/dL (31-37) Red Cell Distribution Width 12.9 % (11.5-14.5) Platelet Count 135 x10^3/uL (140-400) Neutrophils (%) (Auto) 90 % (31-73) Lymphocytes (%) (Auto) 5 % (24-48) Monocytes (%) (Auto) 4 % (0-9) Eosinophils (%) (Auto) 2 % (0-3) Basophils (%) (Auto) 0 % (0-3) Neutrophils # (Auto) 11.2 x10^3/uL (1.8-7.7) Lymphocytes # (Auto) 0.6 x10^3/uL (1.0-4.8) Monocytes # (Auto) 0.5 x10^3/uL (0.0-1.1) Eosinophils # (Auto) 0.2 x10^3/uL (0.0-0.7) Basophils # (Auto) 0.0 x10^3/uL (0.0-0.2) Sodium Level 136 mmol/L (136-145) Potassium Level 4.1 mmol/L (3.5-5.1) Chloride Level 101 mmol/L (98-107) Carbon Dioxide Level 26 mmol/L (21-32) Anion Gap 9 (6-14) Blood Urea Nitrogen 17 mg/dL (8-26) Creatinine 0.9 mg/dL (0.7-1.3) Estimated GFR (Cockcroft-Gault) 89.3 Glucose Level 150 mg/dL (70-99) Calcium Level 7.2 mg/dL (8.5-10.1) Magnesium Level 2.1 mg/dL (1.8-2.4) Troponin I Quantitative 0.214 ng/mL (0.000-0.055) Triglycerides Level 190 mg/dL (0-150) Cholesterol Level 83 mg/dL (0-200) LDL Cholesterol, Calculated 39 mg/dL (0-100) VLDL Cholesterol, Calculated 38 mg/dL (0-40) Non-HDL Cholesterol Calculated 77 mg/dL (0-129) HDL Cholesterol 6 mg/dL (40-60) Cholesterol/HDL Ratio 13.8 O2 Saturation 94 % (92-99) Arterial Blood pH 7.35 (7.35-7.45) Arterial Blood pCO2 at Patient Temp 48 mmHg (35-46) Arterial Blood pO2 at Patient Temp 80 mmHg (75-108) Arterial Blood HCO3 26 mmol/L (21-28) Arterial Blood Base Excess 0 mmol/L (-3-3) FiO2 100 Urine Collection Type Unknown Urine Color [place] Urine Clarity Turbid Urine pH 6.0 (<5.0-8.0) Urine Specific [place] >=1.030 (1.000-1.030) Urine Protein 30 mg/dL (NEG-TRACE) Urine Glucose (UA) Negative mg/dL (NEG) Urine Ketones (Stick) 40 mg/dL (NEG) Urine Blood Moderate (NEG) Urine Nitrite Negative (NEG) Urine Bilirubin Negative (NEG) Urine Urobilinogen Dipstick 1.0 mg/dL (0.2 mg/dL) Urine Leukocyte Esterase Negative (NEG) Urine RBC 11-20 /HPF (0-2) Urine WBC 1-4 /HPF (0-4) Urine Amorphous Sediment Present /HPF Urine Bacteria 0 /HPF (0-FEW) Urine Mucus Mod /LPF Heparin Anti-Xa Act, Unfractionated > 1.10 IU/mL (0.30-0.70) Test 07/05/20 06:40 07/05/20 08:00 White Blood Count 18.2 x10^3/uL (4.0-11.0) Red Blood Count 4.13 x10^6/uL (4.30-5.70) Hemoglobin 13.7 g/dL (13.0-17.5) Hematocrit 40.6 % (39.0-53.0) Mean Corpuscular Volume 98 fL (79-100) Mean Corpuscular Hemoglobin 33 pg (25-35) Mean Corpuscular Hemoglobin Concent 34 g/dL (31-37) Red Cell Distribution Width 13.0 % (11.5-14.5) Platelet Count 189 x10^3/uL (140-400) Neutrophils (%) (Auto) 92 % (31-73) Lymphocytes (%) (Auto) 4 % (24-48) Monocytes (%) (Auto) 4 % (0-9) Eosinophils (%) (Auto) 0 % (0-3) Basophils (%) (Auto) 0 % (0-3) Neutrophils # (Auto) 16.6 x10^3/uL (1.8-7.7) Lymphocytes # (Auto) 0.8 x10^3/uL (1.0-4.8) Monocytes # (Auto) 0.8 x10^3/uL (0.0-1.1) Eosinophils # (Auto) 0.0 x10^3/uL (0.0-0.7) Basophils # (Auto) 0.0 x10^3/uL (0.0-0.2) Heparin Anti-Xa Act, Unfractionated < 0.10 IU/mL (0.30-0.70) Sodium Level 137 mmol/L (136-145) Potassium Level 4.5 mmol/L (3.5-5.1) Chloride Level 102 mmol/L (98-107) Carbon Dioxide Level 26 mmol/L (21-32) Anion Gap 9 (6-14) Blood Urea Nitrogen 16 mg/dL (8-26) Creatinine 0.8 mg/dL (0.7-1.3) Estimated GFR (Cockcroft-Gault) 102.3 BUN/Creatinine Ratio 20 (6-20) Glucose Level 265 mg/dL (70-99) Calcium Level 7.9 mg/dL (8.5-10.1) Magnesium Level 2.7 mg/dL (1.8-2.4) Total Bilirubin 0.3 mg/dL (0.2-1.0) Aspartate Amino Transf (AST/SGOT) 22 U/L (15-37) Alanine Aminotransferase (ALT/SGPT) 37 U/L (16-63) Alkaline Phosphatase 79 U/L (46-116) Total Protein 6.2 g/dL (6.4-8.2) Albumin 1.7 g/dL (3.4-5.0) Albumin/Globulin Ratio 0.4 (1.0-1.7) O2 Saturation 97 % (92-99) Arterial Blood pH 7.40 (7.35-7.45) Arterial Blood pCO2 at Patient Temp 38 mmHg (35-46) Arterial Blood pO2 at Patient Temp 92 mmHg (75-108) Arterial Blood HCO3 23 mmol/L (21-28) Arterial Blood Base Excess -2 mmol/L (-3-3) FiO2 100/vent Review of Systems Review of Systems: Unable to obtain due to clinical condition Assessment and Plan Assessmemt and Plan Problems Medical Problems: (1) Acute respiratory failure with hypoxia Status: Acute (2) PRIYA (acute kidney injury) Status: Acute (3) Elevated troponin I level Status: Acute (4) Pulmonary emboli Status: Acute (5) Suspected COVID-19 virus infection Status: Acute Comment Review of Relevant I have reviewed the following items trino (where applicable) has been applied. Medications: Current Medications Medications (Trade) Dose Ordered Sig/Natalee Route PRN Reason Start Time Stop Time Status Last Admin Dose Admin Pantoprazole Sodium (PROTONIX VIAL for IV PUSH) 40 mg DAILYAC IVP 07/04/20 12:30 07/05/20 08:05 Methylprednisolone Sodium Succinate (SOLU-Medrol 40MG VIAL) 40 mg Q8HRS IV 07/04/20 14:00 07/05/20 07:19 Heparin Sodium/ Dextrose 250 ml @ 13.28 mls/ hr CONT PRN IV PER PROTOCOL 07/04/20 12:00 07/05/20 08:33 Heparin Sodium (Porcine) (Heparin Sodium) 2,500 unit PRN Q6HRS PRN IV FOR UFH LEVEL LESS THAN 0.2 07/04/20 12:00 07/05/20 08:08 Piperacillin Sod/ Tazobactam Sod 3.375 gm/Sodium Chloride 50 ml @ 100 mls/hr Q6HRS IV 07/04/20 12:00 07/05/20 07:20 Zinc Sulfate (Orazinc) 220 mg DAILY PO 07/05/20 09:00 07/05/20 08:06 Ascorbic Acid (Vitamin C) 500 mg Q6HRS PO 07/04/20 18:00 07/05/20 07:20 Vitamin D (Vitamin D3) 5,000 unit DAILY PO 07/05/20 09:00 07/05/20 08:06 Vecuronium [place] (Norcuron Bolus) 6 mg 1X ONCE IV 07/04/20 13:15 07/04/20 13:16 DC 07/04/20 13:27 Norepinephrine Bitartrate 8 mg/ Dextrose 258 ml @ 16.061 mls/ hr CONT PRN IV PER PROTOCOL 07/04/20 13:15 07/05/20 00:33 Fentanyl Citrate 55 ml @ 0 mls/hr CONT PRN IV SEE PROTOCOL 07/04/20 14:45 07/04/20 15:20 Vecuronium [place] (Norcuron Bolus) 6 mg Q4H PRN IV OVERBREATHING VENT/out of sync 07/04/20 16:45 07/05/20 09:39 Justifications for Admission Other Justification SHERLY DUKES MD Jul 05, 2020 10:52
--- NOTE | 2020-07-05 11:21 | RAD ---
CHEST AP ONLY History: Reason: intubated 104 / Spl. Instructions: / History: Comparison: July 04, [address] July 03, 2020 Findings: Diffuse interstitial and alveolar opacities, unchanged. Small bilateral pleural effusions. Stable endotracheal tube and enteric tube. No pneumothorax. Unchanged heart size. Impression: 1. Diffuse interstitial and alveolar opacities, unchanged. 2. Small bilateral pleural effusions. Electronically signed by: Nicolas Clemente DO (07/05/2020 11:19 AM) [id number]
--- NOTE | 2020-07-05 11:23 | NUR ---
SS following up with discharge planning. SS reviewed pt chart and discussed with pt RN. Pt remains on the vent at this time at 100%. COVID19 test pending. Pt on IV Zosyn. SS will continue to follow for discharge planning.
[2020-07-05] MEDS ORDERED: FUROSEMIDE 40 MG/4 ML VIAL. IVP ONE (13:30)
--- NOTE | 2020-07-05 13:31 | PDOC ---
CHACORTA DAVILA SUPERVISOR OPENING AND PICKING 07/05/20 1331: CARDIO Progress Notes Date and Time Date of Service 07/05/2020 Time of Evaluation 1000 Subjective Subjective: Other (intubated) Vitals Vitals Vital Signs Date Time Temp Pulse Resp B/P (MAP) Pulse Ox O2 Delivery O2 Flow Rate FiO2 07/05/20 13:00 74 30 110/56 (74) 88 Ventilator 07/05/20 12:00 98.7 98.7 Weight Weight [ ] Input and Output Intake and Output Intake and Output 07/05/20 07:00 Intake Total 3444.78 ml Output Total 1965 ml Balance 1479.78 ml Intake Oral 100 ml IV Total 2795.78 ml Tube Feeding 549 ml Output Urine Total 1965 ml Gastric Drainage Total 0 ml Laboratory Labs Laboratory Tests Test 07/04/20 17:30 07/04/20 19:05 07/05/20 06:40 07/05/20 08:00 Urine Collection Type Unknown Urine Color Saumya Urine Clarity Turbid Urine pH 6.0 (<5.0-8.0) Urine Specific [place] >=1.030 (1.000-1.030) Urine Protein 30 mg/dL (NEG-TRACE) Urine Glucose (UA) Negative mg/dL (NEG) Urine Ketones (Stick) 40 mg/dL (NEG) Urine Blood Moderate (NEG) Urine Nitrite Negative (NEG) Urine Bilirubin Negative (NEG) Urine Urobilinogen Dipstick 1.0 mg/dL (0.2 mg/dL) Urine Leukocyte Esterase Negative (NEG) Urine RBC 11-20 /HPF (0-2) Urine WBC 1-4 /HPF (0-4) Urine Amorphous Sediment Present /HPF Urine Bacteria 0 /HPF (0-FEW) Urine Mucus Mod /LPF Heparin Anti-Xa Act, Unfractionated > 1.10 IU/mL (0.30-0.70) < 0.10 IU/mL (0.30-0.70) White Blood Count 18.2 x10^3/uL (4.0-11.0) Red Blood Count 4.13 x10^6/uL (4.30-5.70) Hemoglobin 13.7 g/dL (13.0-17.5) Hematocrit 40.6 % (39.0-53.0) Mean Corpuscular Volume 98 fL (79-100) Mean Corpuscular Hemoglobin 33 pg (25-35) Mean Corpuscular Hemoglobin Concent 34 g/dL (31-37) Red Cell Distribution Width 13.0 % (11.5-14.5) Platelet Count 189 x10^3/uL (140-400) Neutrophils (%) (Auto) 92 % (31-73) Lymphocytes (%) (Auto) 4 % (24-48) Monocytes (%) (Auto) 4 % (0-9) Eosinophils (%) (Auto) 0 % (0-3) Basophils (%) (Auto) 0 % (0-3) Neutrophils # (Auto) 16.6 x10^3/uL (1.8-7.7) Lymphocytes # (Auto) 0.8 x10^3/uL (1.0-4.8) Monocytes # (Auto) 0.8 x10^3/uL (0.0-1.1) Eosinophils # (Auto) 0.0 x10^3/uL (0.0-0.7) Basophils # (Auto) 0.0 x10^3/uL (0.0-0.2) Sodium Level 137 mmol/L (136-145) Potassium Level 4.5 mmol/L (3.5-5.1) Chloride Level 102 mmol/L (98-107) Carbon Dioxide Level 26 mmol/L (21-32) Anion Gap 9 (6-14) Blood Urea Nitrogen 16 mg/dL (8-26) Creatinine 0.8 mg/dL (0.7-1.3) Estimated GFR (Cockcroft-Gault) 102.3 BUN/Creatinine Ratio 20 (6-20) Glucose Level 265 mg/dL (70-99) Calcium Level 7.9 mg/dL (8.5-10.1) Magnesium Level 2.7 mg/dL (1.8-2.4) Total Bilirubin 0.3 mg/dL (0.2-1.0) Aspartate Amino Transf (AST/SGOT) 22 U/L (15-37) Alanine Aminotransferase (ALT/SGPT) 37 U/L (16-63) Alkaline Phosphatase 79 U/L (46-116) Total Protein 6.2 g/dL (6.4-8.2) Albumin 1.7 g/dL (3.4-5.0) Albumin/Globulin Ratio 0.4 (1.0-1.7) O2 Saturation 97 % (92-99) Arterial Blood pH 7.40 (7.35-7.45) Arterial Blood pCO2 at Patient Temp 38 mmHg (35-46) Arterial Blood pO2 at Patient Temp 92 mmHg (75-108) Arterial Blood HCO3 23 mmol/L (21-28) Arterial Blood Base Excess -2 mmol/L (-3-3) FiO2 100/vent Test 07/05/20 12:06 Heparin Anti-Xa Act, Unfractionated 0.11 IU/mL (0.30-0.70) Microbiology Micro Microbiology 07/03/20 Blood Culture - Preliminary, Resulted NO GROWTH AFTER 1 DAY Physical Exam HEENT: Neck Supple W Full Motion Chest: Symmetric LUNGS: Other (diminished, intubated, vent) Heart: RRR (SR) Abdomen: Other (flat) Extremities: Other (LE edema) Neurology: other (sedated) Assessment Assessment 1. Acute hypoxic respiratory failure with acute PE intubated/vent 2. Acute diastolic CHF 3. NSTEMI: suspect demand mediated, type 2 with above culprits. EKG SR no acute changes. No arrhythmias 4. HTN: controlled, off levophed 5. PUI Recommendations TTE if covid negative Lasix x1 Heparin ongoing per pulmonary Supportive care Justicifation of Admission Dx: Justifications for Admission: Justification of Admission Dx: Yes ALESIA LUA MD 07/05/201909: CARDIO Progress Notes Assessment Assessment Agree with FLEX O WRITER OPERATOR's assessment and plan. Continue management of acute resp failure, vent management and PE per pulm team Continue diuresis with lasix for mild acute diastolic HF Trop elevation probably demand ischemia We will check 2D echo if Covid test comes back negative Consider ischemic evaluation as outpatient CHACORTA DAVILA APRN Jul 05, 2020 13:31 ALESIA LUA MD Jul 05, 2020 19:10
[2020-07-05] MEDS ORDERED: DEXTROSE 50% 25 GM / 50ML DISP.SYRIN. IV PRN (14:15)
[2020-07-05] MEDS ORDERED: INSULIN LISPRO 300 UNITS/3 ML VIAL. SQ ONE (14:30)
[2020-07-05] MEDS: INSULIN LISPRO 300 UNITS/3 ML VIAL. SQ SCH (17:45)
[2020-07-06] VITALS (24 sets, daily range): BP systolic 100–138; BP diastolic 49–74
[2020-07-06] MEDS: INSULIN LISPRO 300 UNITS/3 ML VIAL. SQ SCH ×4 (00:28→17:22)
[2020-07-06] MEDS: HEPARIN 25,000UTS/250ML PREMIX 250 ML IV PRN ×2 (01:02→13:34)
[2020-07-06] MEDS: HEPARIN for IV BOLUS 10,000 UNIT/10 ML VIAL. IV PRN (01:03)
[2020-07-06] MEDS: MIDAZOLAM 100mg/100ml NS BAG 100 ML IV PRN ×2 (03:19→14:52)
[2020-07-06] MEDS: methylPREDNISolone SOD SUCC PF 40 MG/ML VIAL. IV SCH ×3 (05:59→21:36)
[2020-07-06] MEDS: ASCORBIC ACID 500 MG TABLET PO SCH ×3 (05:59→17:20)
[2020-07-06] MEDS: PIPERACILLIN/TAZOBACTAM 3.375 GM in IV NORMAL SALINE 50ML 50 ML IV SCH ×3 (05:59→17:20)
[2020-07-06 06:35] LABS: HEMATOCRIT 35.2 % (39.0-53.0); HEMOGLOBIN 11.5 g/dL (13.0-17.5); RED BLOOD COUNT 3.56 x10^6/uL (4.30-5.70); RED CELL DISTRIBUTION WIDTH 13.1 % (11.5-14.5); WHITE BLOOD COUNT 19.8 x10^3/uL (4.0-11.0)
[2020-07-06] MEDS: fentaNYL HIGH DOSE PCA 55 ML IV PRN (07:47)
[2020-07-06] MEDS: ZINC SULFATE 220 MG CAPSULE. PO SCH (08:07)
[2020-07-06] MEDS: PANTOPRAZOLE IV PUSH 40 MG VIAL. IVP SCH (08:07)
[2020-07-06] MEDS: CHOLECALCIFEROL (VITAMIN D3) 5,000 UNIT CAPSULE PO SCH (08:08)
[2020-07-06 08:20] LABS: BASE EXCESS ABG 1 mmol/L (-3-3); HCO3 ABG 25 mmol/L (21-28); PCO2 ABG 40 mmHg (35-46); PO2 ABG 88 mmHg (75-108); SAT O2 ABG 96 % (92-99)
[2020-07-06 08:22] LABS: FIO2 ABG 100/VENT
--- NOTE | 2020-07-06 08:23 | PDOC ---
PULMONARY PROGRESS NOTES DATE: 07/06/20 TIME: 08:23 Subjective Remains on mechanical ventilation, on 100% and PEEP of 10 Now off vasopressor medications afebrile No other concerns from nursing Vitals Vital Signs Date Time Temp Pulse Resp B/P (MAP) Pulse Ox O2 Delivery O2 Flow Rate FiO2 07/06/20 07:47 30 96 Ventilator 07/06/20 07:00 73 126/57 (80) 07/06/20 04:00 98.6 98.6 Comments Patient seen during pandemic visual exam performed Intubated/sedated no Accessory muscle use No obvious rash or edema Lungs: Other Labs Laboratory Tests Test 07/04/20 11:00 07/04/20 11:20 07/04/20 17:30 07/04/20 19:05 White Blood Count 12.4 x10^3/uL (4.0-11.0) Red Blood Count 3.48 x10^6/uL (4.30-5.70) Hemoglobin 11.4 g/dL (13.0-17.5) Hematocrit 34.3 % (39.0-53.0) Mean Corpuscular Volume 99 fL (79-100) Mean Corpuscular Hemoglobin 33 pg (25-35) Mean Corpuscular Hemoglobin Concent 33 g/dL (31-37) Red Cell Distribution Width 12.9 % (11.5-14.5) Platelet Count 135 x10^3/uL (140-400) Neutrophils (%) (Auto) 90 % (31-73) Lymphocytes (%) (Auto) 5 % (24-48) Monocytes (%) (Auto) 4 % (0-9) Eosinophils (%) (Auto) 2 % (0-3) Basophils (%) (Auto) 0 % (0-3) Neutrophils # (Auto) 11.2 x10^3/uL (1.8-7.7) Lymphocytes # (Auto) 0.6 x10^3/uL (1.0-4.8) Monocytes # (Auto) 0.5 x10^3/uL (0.0-1.1) Eosinophils # (Auto) 0.2 x10^3/uL (0.0-0.7) Basophils # (Auto) 0.0 x10^3/uL (0.0-0.2) Sodium Level 136 mmol/L (136-145) Potassium Level 4.1 mmol/L (3.5-5.1) Chloride Level 101 mmol/L (98-107) Carbon Dioxide Level 26 mmol/L (21-32) Anion Gap 9 (6-14) Blood Urea Nitrogen 17 mg/dL (8-26) Creatinine 0.9 mg/dL (0.7-1.3) Estimated GFR (Cockcroft-Gault) 89.3 Glucose Level 150 mg/dL (70-99) Calcium Level 7.2 mg/dL (8.5-10.1) Magnesium Level 2.1 mg/dL (1.8-2.4) Troponin I Quantitative 0.214 ng/mL (0.000-0.055) Triglycerides Level 190 mg/dL (0-150) Cholesterol Level 83 mg/dL (0-200) LDL Cholesterol, Calculated 39 mg/dL (0-100) VLDL Cholesterol, Calculated 38 mg/dL (0-40) Non-HDL Cholesterol Calculated 77 mg/dL (0-129) HDL Cholesterol 6 mg/dL (40-60) Cholesterol/HDL Ratio 13.8 O2 Saturation 94 % (92-99) Arterial Blood pH 7.35 (7.35-7.45) Arterial Blood pCO2 at Patient Temp 48 mmHg (35-46) Arterial Blood pO2 at Patient Temp 80 mmHg (75-108) Arterial Blood HCO3 26 mmol/L (21-28) Arterial Blood Base Excess 0 mmol/L (-3-3) FiO2 100 Urine Collection Type Unknown Urine Color Saumya Urine Clarity Turbid Urine pH 6.0 (<5.0-8.0) Urine Specific [place] >=1.030 (1.000-1.030) Urine Protein 30 mg/dL (NEG-TRACE) Urine Glucose (UA) Negative mg/dL (NEG) Urine Ketones (Stick) 40 mg/dL (NEG) Urine Blood Moderate (NEG) Urine Nitrite Negative (NEG) Urine Bilirubin Negative (NEG) Urine Urobilinogen Dipstick 1.0 mg/dL (0.2 mg/dL) Urine Leukocyte Esterase Negative (NEG) Urine RBC 11-20 /HPF (0-2) Urine WBC 1-4 /HPF (0-4) Urine Amorphous Sediment Present /HPF Urine Bacteria 0 /HPF (0-FEW) Urine Mucus Mod /LPF Heparin Anti-Xa Act, Unfractionated > 1.10 IU/mL (0.30-0.70) Test 07/05/20 06:40 07/05/20 08:00 07/05/20 12:06 07/05/20 17:52 White Blood Count 18.2 x10^3/uL (4.0-11.0) Red Blood Count 4.13 x10^6/uL (4.30-5.70) Hemoglobin 13.7 g/dL (13.0-17.5) Hematocrit 40.6 % (39.0-53.0) Mean Corpuscular Volume 98 fL (79-100) Mean Corpuscular Hemoglobin 33 pg (25-35) Mean Corpuscular Hemoglobin Concent 34 g/dL (31-37) Red Cell Distribution Width 13.0 % (11.5-14.5) Platelet Count 189 x10^3/uL (140-400) Neutrophils (%) (Auto) 92 % (31-73) Lymphocytes (%) (Auto) 4 % (24-48) Monocytes (%) (Auto) 4 % (0-9) Eosinophils (%) (Auto) 0 % (0-3) Basophils (%) (Auto) 0 % (0-3) Neutrophils # (Auto) 16.6 x10^3/uL (1.8-7.7) Lymphocytes # (Auto) 0.8 x10^3/uL (1.0-4.8) Monocytes # (Auto) 0.8 x10^3/uL (0.0-1.1) Eosinophils # (Auto) 0.0 x10^3/uL (0.0-0.7) Basophils # (Auto) 0.0 x10^3/uL (0.0-0.2) Heparin Anti-Xa Act, Unfractionated < 0.10 IU/mL (0.30-0.70) 0.11 IU/mL (0.30-0.70) 0.28 IU/mL (0.30-0.70) Sodium Level 137 mmol/L (136-145) Potassium Level 4.5 mmol/L (3.5-5.1) Chloride Level 102 mmol/L (98-107) Carbon Dioxide Level 26 mmol/L (21-32) Anion Gap 9 (6-14) Blood Urea Nitrogen 16 mg/dL (8-26) Creatinine 0.8 mg/dL (0.7-1.3) Estimated GFR (Cockcroft-Gault) 102.3 BUN/Creatinine Ratio 20 (6-20) Glucose Level 265 mg/dL (70-99) Calcium Level 7.9 mg/dL (8.5-10.1) Magnesium Level 2.7 mg/dL (1.8-2.4) Total Bilirubin 0.3 mg/dL (0.2-1.0) Aspartate Amino Transf (AST/SGOT) 22 U/L (15-37) Alanine Aminotransferase (ALT/SGPT) 37 U/L (16-63) Alkaline Phosphatase 79 U/L (46-116) Total Protein 6.2 g/dL (6.4-8.2) Albumin 1.7 g/dL (3.4-5.0) Albumin/Globulin Ratio 0.4 (1.0-1.7) O2 Saturation 97 % (92-99) Arterial Blood pH 7.40 (7.35-7.45) Arterial Blood pCO2 at Patient Temp 38 mmHg (35-46) Arterial Blood pO2 at Patient Temp 92 mmHg (75-108) Arterial Blood HCO3 23 mmol/L (21-28) Arterial Blood Base Excess -2 mmol/L (-3-3) FiO2 100/vent Test 07/06/20 00:30 07/06/20 06:25 07/06/20 08:00 Heparin Anti-Xa Act, Unfractionated < 0.10 IU/mL (0.30-0.70) 0.42 IU/mL (0.30-0.70) White Blood Count 19.8 x10^3/uL (4.0-11.0) Red Blood Count 3.56 x10^6/uL (4.30-5.70) Hemoglobin 11.5 g/dL (13.0-17.5) Hematocrit 35.2 % (39.0-53.0) Mean Corpuscular Volume 99 fL (79-100) Mean Corpuscular Hemoglobin 32 pg (25-35) Mean Corpuscular Hemoglobin Concent 33 g/dL (31-37) Red Cell Distribution Width 13.1 % (11.5-14.5) Platelet Count 190 x10^3/uL (140-400) O2 Saturation 96 % (92-99) Arterial Blood pH 7.42 (7.35-7.45) Arterial Blood pCO2 at Patient Temp 40 mmHg (35-46) Arterial Blood pO2 at Patient Temp 88 mmHg (75-108) Arterial Blood HCO3 25 mmol/L (21-28) Arterial Blood Base Excess 1 mmol/L (-3-3) FiO2 100/vent Laboratory Tests Test 07/05/20 12:06 07/05/20 17:52 07/06/20 00:30 07/06/20 06:25 Heparin Anti-Xa Act, Unfractionated 0.11 IU/mL (0.30-0.70) 0.28 IU/mL (0.30-0.70) < 0.10 IU/mL (0.30-0.70) 0.42 IU/mL (0.30-0.70) White Blood Count 19.8 x10^3/uL (4.0-11.0) Red Blood Count 3.56 x10^6/uL (4.30-5.70) Hemoglobin 11.5 g/dL (13.0-17.5) Hematocrit 35.2 % (39.0-53.0) Mean Corpuscular Volume 99 fL (79-100) Mean Corpuscular Hemoglobin 32 pg (25-35) Mean Corpuscular Hemoglobin Concent 33 g/dL (31-37) Red Cell Distribution Width 13.1 % (11.5-14.5) Platelet Count 190 x10^3/uL (140-400) Test 07/06/20 08:00 O2 Saturation 96 % (92-99) Arterial Blood pH 7.42 (7.35-7.45) Arterial Blood pCO2 at Patient Temp 40 mmHg (35-46) Arterial Blood pO2 at Patient Temp 88 mmHg (75-108) Arterial Blood HCO3 25 mmol/L (21-28) Arterial Blood Base Excess 1 mmol/L (-3-3) FiO2 100/vent Comments CXRIMPRESSION: 1. Interval endotracheal intubation, ET tube 5.5 cm above the omero. 2. Enteric tube placement with the tip in the left upper quadrant abdomen. 3. Diffuse bilateral pulmonary infiltrates. Impression . IMPRESSION: 1. Acute hypoxemic respiratory failure. 2. Acute pulmonary embolism with cor pulmonale. 3. Possible COVID-[address]. [address] chest revealing ground glass opacities. 5. Hypertension. 6. History of bronchitis. 7. Elevated troponin. 8. Acute kidney injury. 9. Leukocytosis. 10. Covid-19 positive Plan . Continue current ventilatory support, currently on 100% and PEEP of 10, avoid increasing PEEP 2/2 risk of barotrauma Follow chest x-ray and ABG, Follow cardiology recommendations elevated troponin likely secondary to acute pulmonary embolism Continue empiric antibiotics with Zosyn, WBC trending upward consult ID as pt. COVID-19, will start remdesivir Continue heparin drip for pulmonary embolism Continue IV steroids continue tube feeding for nutritional support Vasopressors if needed to keep MAP greater than 65-- off levophed gtt DVT/GI prophylaxis, heparin drip/ Protonix Discussed with RN and RT Critical care time [id number] AM ALVIN RAMSEY MD Jul 06, 2020 08:23
[2020-07-06 10:59] LABS: ALBUMIN 1.5 g/dL (3.4-5.0); ALBUMIN/GLOBULIN RATIO 0.4 (1.0-1.7); CALCIUM 7.9 mg/dL (8.5-10.1); GFR 79.1; MAGNESIUM 2.7 mg/dL (1.8-2.4); POTASSIUM 4.6 mmol/L (3.5-5.1); TOTAL BILIRUBIN 0.1 mg/dL (0.2-1.0); TOTAL PROTEIN 5.6 g/dL (6.4-8.2)
--- NOTE | 2020-07-06 11:07 | PDOC ---
CHACORTA DAVILA ASSISTANT MANAGER TRAINEE 07/06/20 1107: CARDIO Progress Notes Date and Time Date of Service 07/06/2020 Time of Evaluation 0910 Subjective Subjective: Other (intubated) Vitals Vitals Vital Signs Date Time Temp Pulse Resp B/P (MAP) Pulse Ox O2 Delivery O2 Flow Rate FiO2 07/06/20 10:00 69 34 120/57 (78) 93 Ventilator 07/06/20 08:00 98.5 98.5 Weight Weight [ ] Input and Output Intake and Output Intake and Output 07/06/20 07:00 Intake Total 3253.50 ml Output Total 2100 ml Balance 1153.50 ml IV Total 964.50 ml Tube Feeding 1689 ml Other 600 ml Output Urine Total 2100 ml Gastric Drainage Total 0 ml Laboratory Labs Laboratory Tests Test 07/05/20 12:06 07/05/20 17:52 07/06/20 00:30 07/06/20 06:25 Heparin Anti-Xa Act, Unfractionated 0.11 IU/mL (0.30-0.70) 0.28 IU/mL (0.30-0.70) < 0.10 IU/mL (0.30-0.70) 0.42 IU/mL (0.30-0.70) White Blood Count 19.8 x10^3/uL (4.0-11.0) Red Blood Count 3.56 x10^6/uL (4.30-5.70) Hemoglobin 11.5 g/dL (13.0-17.5) Hematocrit 35.2 % (39.0-53.0) Mean Corpuscular Volume 99 fL (79-100) Mean Corpuscular Hemoglobin 32 pg (25-35) Mean Corpuscular Hemoglobin Concent 33 g/dL (31-37) Red Cell Distribution Width 13.1 % (11.5-14.5) Platelet Count 190 x10^3/uL (140-400) Sodium Level 139 mmol/L (136-145) Potassium Level 4.6 mmol/L (3.5-5.1) Chloride Level 104 mmol/L (98-107) Carbon Dioxide Level 29 mmol/L (21-32) Anion Gap 6 (6-14) Blood Urea Nitrogen 27 mg/dL (8-26) Creatinine 1.0 mg/dL (0.7-1.3) Estimated GFR (Cockcroft-Gault) 79.1 BUN/Creatinine Ratio 27 (6-20) Glucose Level 206 mg/dL (70-99) Calcium Level 7.9 mg/dL (8.5-10.1) Magnesium Level 2.7 mg/dL (1.8-2.4) Total Bilirubin 0.1 mg/dL (0.2-1.0) Aspartate Amino Transf (AST/SGOT) 21 U/L (15-37) Alanine Aminotransferase (ALT/SGPT) 27 U/L (16-63) Alkaline Phosphatase 60 U/L (46-116) Total Protein 5.6 g/dL (6.4-8.2) Albumin 1.5 g/dL (3.4-5.0) Albumin/Globulin Ratio 0.4 (1.0-1.7) Test 07/06/20 08:00 O2 Saturation 96 % (92-99) Arterial Blood pH 7.42 (7.35-7.45) Arterial Blood pCO2 at Patient Temp 40 mmHg (35-46) Arterial Blood pO2 at Patient Temp 88 mmHg (75-108) Arterial Blood HCO3 25 mmol/L (21-28) Arterial Blood Base Excess 1 mmol/L (-3-3) FiO2 100/vent Microbiology Micro Microbiology 07/03/20 Blood Culture - Preliminary, Resulted NO GROWTH AFTER 2 DAYS Physical Exam HEENT: Neck Supple W Full Motion Chest: Symmetric LUNGS: Other (diminished, intubated, vent) Heart: RRR (SR) Abdomen: Other (flat) Extremities: Other (LE edema) Neurology: other (sedated) Assessment Assessment 1. Acute hypoxic respiratory failure with acute PE/Covid intubated/vent 2. Acute diastolic CHF 3. NSTEMI: suspect demand mediated, type 2 with above culprits. EKG SR no acute changes. No arrhythmias 4. HTN: controlled 5. +Covid-19 6. Protein malnutrition Recommendations Heparin ongoing per pulmonary Off levophed BP stable. Supportive care Justicifation of Admission Dx: Justifications for Admission: Justification of Admission Dx: Yes ALESIA LUA MD 07/06/20 9096: CARDIO Progress Notes Assessment Assessment Agree with NEWBORN HEARING SCREENER's assessment and plan. Continue management of acute resp failure, vent management and PE per pulm team Mild acute diastolic HF better compensated Trop elevation probably demand ischemia Currently off pressors Consider ischemic evaluation as outpatient CHACORTA DAVILA APRN Jul 06, 2020 11:07 ALESIA LUA MD Jul 06, 2020 18:23
--- NOTE | 2020-07-06 12:28 | PDOC ---
[facility] PROGRESS NOTE Date of Service DOS: DATE: 07/06/20 TIME: 12:23 Chief Complaint Chief Complaint Acute hypoxic respiratory failure requiring intubation COVID-19 PUI Subsegmental bilateral PE Leukocytosis NSTEMI AKA Lactic acidosis Hyponatremia Plan: Patient was intubated this morning after failing on BiPAP Consultations placed to pulmonology Consultations placed to cardiology Heparin infusion will address bilateral PEs and NSTEMI Solu-Medrol 40 mg every 8 hours Zosyn 3.75 mg every 6 hours IV fluids History of Present Illness History of Present Illness Patient is 49-year-old male with past medical history of hypertension, who presents to the ED with complaints of worsening shortness of breath over the past 5 days. Associated sore throat, fatigue, and generalized weakness. Patient was reportedly tested for COVID-19 last Thursday, but he had negative test results. His symptoms acutely worsened yesterday. Upon arrival to the ER his oxygen saturation was 60% on room air. He was placed on BiPAP and admitted to the ICU. Patient was subsequently intubated due to worsening respiratory failure. 07/05: Patient seen in ICU, still intubated and sedated. COVID-19 pending. Patient remains on heparin infusion. Discussed with RN, will try to have central line placed per anesthesia. 07/06: Patient seen in ICU. Still FiO2 100% on vent and sedated. COVID-19 positive. Continue heparin infusion, Zosyn, steroids. Vitals/I&O Vitals/I&O: Vital Signs Date Time Temp Pulse Resp B/P (MAP) Pulse Ox O2 Delivery O2 Flow Rate FiO2 07/06/20 12:00 Mechanical Ventilator 07/06/20 12:00 98.3 73 32 124/55 (78) 94 98.3 I & O 07/05/20 07/05/20 07/06/20 15:00 23:00 07:00 Intake Total 788.87 ml 1090.63 ml 1374 ml Output Total 425 ml 1285 ml 390 ml Balance 363.87 ml -194.37 ml 984 ml Physical Exam General: Other (Sedated) Heart: Regular rate (SR/ST) Lungs: Other (Intubated, some paroxysmal breathing patterns) Abdomen: Other (Nondistended) Extremities: No clubbing, No cyanosis Skin: No rashes, No breakdown Labs Labs: Laboratory Tests Test 07/05/20 17:52 07/06/20 00:30 07/06/20 06:25 07/06/20 08:00 Heparin Anti-Xa Act, Unfractionated 0.28 IU/mL (0.30-0.70) < 0.10 IU/mL (0.30-0.70) 0.42 IU/mL (0.30-0.70) White Blood Count 19.8 x10^3/uL (4.0-11.0) Red Blood Count 3.56 x10^6/uL (4.30-5.70) Hemoglobin 11.5 g/dL (13.0-17.5) Hematocrit 35.2 % (39.0-53.0) Mean Corpuscular Volume 99 fL (79-100) Mean Corpuscular Hemoglobin 32 pg (25-35) Mean Corpuscular Hemoglobin Concent 33 g/dL (31-37) Red Cell Distribution Width 13.1 % (11.5-14.5) Platelet Count 190 x10^3/uL (140-400) Sodium Level 139 mmol/L (136-145) Potassium Level 4.6 mmol/L (3.5-5.1) Chloride Level 104 mmol/L (98-107) Carbon Dioxide Level 29 mmol/L (21-32) Anion Gap 6 (6-14) Blood Urea Nitrogen 27 mg/dL (8-26) Creatinine 1.0 mg/dL (0.7-1.3) Estimated GFR (Cockcroft-Gault) 79.1 BUN/Creatinine Ratio 27 (6-20) Glucose Level 206 mg/dL (70-99) Calcium Level 7.9 mg/dL (8.5-10.1) Magnesium Level 2.7 mg/dL (1.8-2.4) Total Bilirubin 0.1 mg/dL (0.2-1.0) Aspartate Amino Transf (AST/SGOT) 21 U/L (15-37) Alanine Aminotransferase (ALT/SGPT) 27 U/L (16-63) Alkaline Phosphatase 60 U/L (46-116) Total Protein 5.6 g/dL (6.4-8.2) Albumin 1.5 g/dL (3.4-5.0) Albumin/Globulin Ratio 0.4 (1.0-1.7) O2 Saturation 96 % (92-99) Arterial Blood pH 7.42 (7.35-7.45) Arterial Blood pCO2 at Patient Temp 40 mmHg (35-46) Arterial Blood pO2 at Patient Temp 88 mmHg (75-108) Arterial Blood HCO3 25 mmol/L (21-28) Arterial Blood Base Excess 1 mmol/L (-3-3) FiO2 100/vent Review of Systems Review of Systems: Unable to obtain due to clinical condition Assessment and Plan Assessmemt and Plan Problems Medical Problems: (1) Acute respiratory failure with hypoxia Status: Acute (2) PRIYA (acute kidney injury) Status: Acute (3) Elevated troponin I level Status: Acute (4) Pulmonary emboli Status: Acute (5) Suspected COVID-19 virus infection Status: Acute Comment Review of Relevant I have reviewed the following items trino (where applicable) has been applied. Medications: Current Medications Medications (Trade) Dose Ordered Sig/Natalee Route PRN Reason Start Time Stop Time Status Last Admin Dose Admin Furosemide (Lasix) 40 mg 1X ONCE IVP 07/05/20 13:30 07/05/20 13:31 DC 07/05/20 14:17 Insulin Human Lispro (HumaLOG) 0-5 UNITS Q6HRS SQ 07/05/20 18:00 07/06/20 11:51 Insulin Human Lispro (HumaLOG) 2 units 1X ONCE SQ 07/05/20 14:30 07/05/20 14:31 DC 07/05/20 14:19 Justifications for Admission Other Justification SHERLY DUKES MD Jul 06, 2020 12:28
--- NOTE | 2020-07-06 13:14 | NUR ---
Have reviewed and agree with documentation completed by internal grinding machine operator and have made changes as needed/appropriate.
[2020-07-06] MEDS ORDERED: REMDESIVIR LOAD in IV NORMAL SALINE 250ML TV IV ONE (14:30)
--- NOTE | 2020-07-06 15:26 | NUR ---
SS following up with discharge planning. SS reviewed pt chart and discussed with pt RN. Pt remains on the vent at this time at 100%. COVID19 positive. Pt on IV Zosyn and Remdesivir. SS will continue to follow for discharge planning.
[2020-07-07] VITALS (24 sets, daily range): BP systolic 108–154; BP diastolic 61–80
[2020-07-07] MEDS: PIPERACILLIN/TAZOBACTAM 3.375 GM in IV NORMAL SALINE 50ML 50 ML IV SCH ×4 (00:12→17:38)
[2020-07-07] MEDS: INSULIN LISPRO 300 UNITS/3 ML VIAL. SQ SCH ×4 (00:13→17:47)
[2020-07-07] MEDS: ASCORBIC ACID 500 MG TABLET PO SCH ×4 (00:16→17:53)
[2020-07-07] MEDS: HEPARIN 25,000UTS/250ML PREMIX 250 ML IV PRN ×2 (03:00→15:00)
[2020-07-07] MEDS: methylPREDNISolone SOD SUCC PF 40 MG/ML VIAL. IV SCH ×3 (05:35→22:30)
[2020-07-07] MEDS: PANTOPRAZOLE IV PUSH 40 MG VIAL. IVP SCH (07:36)
--- NOTE | 2020-07-07 08:09 | PDOC ---
[facility] PROGRESS NOTE Date of Service DOS: DATE: 07/07/20 TIME: 08:01 Chief Complaint Chief Complaint Acute hypoxic respiratory failure requiring intubation COVID-19 PUI Subsegmental bilateral PE Leukocytosis NSTEMI AKA Lactic acidosis Hyponatremia Plan: Patient was intubated this morning after failing on BiPAP Consultations placed to pulmonology Consultations placed to cardiology Heparin infusion will address bilateral PEs and NSTEMI Solu-Medrol 40 mg every 8 hours Zosyn 3.75 mg every 6 hours IV fluids History of Present Illness History of Present Illness Patient is 49-year-old male with past medical history of hypertension, who presents to the ED with complaints of worsening shortness of breath over the past 5 days. Associated sore throat, fatigue, and generalized weakness. Patient was reportedly tested for COVID-19 last Thursday, but he had negative test results. His symptoms acutely worsened yesterday. Upon arrival to the ER his oxygen saturation was 60% on room air. He was placed on BiPAP and admitted to the ICU. Patient was subsequently intubated due to worsening respiratory failure. 07/05: Patient seen in ICU, still intubated and sedated. COVID-19 pending. Patient remains on heparin infusion. Discussed with RN, will try to have central line placed per anesthesia. 07/06: Patient seen in ICU. Still FiO2 100% on vent and sedated. COVID-19 positive. Continue heparin infusion, Zosyn, steroids. 07/07: Covid positive patient seen in ICU. On vent with FiO2 100%, PEEP 10. Continue remdesivir, steroids, Zosyn. Continue to monitor Vitals/I&O Vitals/I&O: Vital Signs Date Time Temp Pulse Resp B/P (MAP) Pulse Ox O2 Delivery O2 Flow Rate FiO2 07/07/20 06:00 68 30 135/62 (86) 92 Ventilator 07/07/20 04:00 99.3 99.3 I & O 07/06/20 07/06/20 07/07/20 15:00 23:00 07:00 Intake Total 360 ml 1634.53 ml 1559.6 ml Output Total 385 ml 500 ml 475 ml Balance -25 ml 1134.53 ml 1084.6 ml Physical Exam General: Other (Sedated) Heart: Regular rate (SR/ST) Lungs: Other Abdomen: Other (Nondistended) Extremities: No clubbing, No cyanosis Skin: No rashes, No breakdown Labs Labs: Laboratory Tests Test 07/06/20 12:15 07/06/20 17:15 07/07/20 06:10 Heparin Anti-Xa Act, Unfractionated 0.52 IU/mL (0.30-0.70) 0.45 IU/mL (0.30-0.70) Glucose (Fingerstick) 208 mg/dL (70-99) Review of Systems Review of Systems: Unable to obtain due to clinical condition Assessment and Plan Assessmemt and Plan Problems Medical Problems: (1) Acute respiratory failure with hypoxia Status: Acute (2) PRIYA (acute kidney injury) Status: Acute (3) Elevated troponin I level Status: Acute (4) Pulmonary emboli Status: Acute (5) Suspected COVID-19 virus infection Status: Acute Comment Review of Relevant I have reviewed the following items trino (where applicable) has been applied. Medications: Current Medications Medications (Trade) Dose Ordered Sig/Natalee Route PRN Reason Start Time Stop Time Status Last Admin Dose Admin Remdesivir 200 mg/ Sodium Chloride 210 ml @ 210 mls/hr 1X ONCE IV 07/06/20 14:30 07/06/20 15:29 DC 07/06/20 14:51 Justifications for Admission Other Justification SHERLY DUKES MD Jul 07, 2020 08:09
[2020-07-07] MEDS: CHOLECALCIFEROL (VITAMIN D3) 5,000 UNIT CAPSULE PO SCH (09:00)
[2020-07-07] MEDS: ZINC SULFATE 220 MG CAPSULE. PO SCH (09:00)
--- NOTE | 2020-07-07 09:41 | CONS ---
DATE OF CONSULTATION: 07/07/2020 REQUESTING PHYSICIAN: Calvin Garcia MD REASON FOR CONSULTATION: COVID-19 positive and respiratory failure. HISTORY OF PRESENT ILLNESS: This is a 49-year-old gentleman, who came in with shortness of breath. The patient was found to be hypoxic. The patient was COVID positive; the patient was eventually intubated. The patient also was found to have bilateral PE. The patient is on steroids, Zosyn, remdesivir. The patient is not able to provide any information as he is intubated and sedated. All the information was obtained through chart review and discussing with the patient's nurse. No nausea, vomiting, diarrhea or fever noted. He has had low-grade fever earlier. PAST MEDICAL HISTORY: Positive for asthma maybe and hypertension. SOCIAL HISTORY: Unable to obtain. CURRENT MEDICATIONS: Reviewed. REVIEW OF SYSTEMS: As per the HPI through the patient's nurse. The patient is not able to provide any information. PHYSICAL EXAMINATION: GENERAL: Sedated, orally intubated gentleman, not in any distress. VITAL SIGNS: Temperature 98.3, pulse 65, respirations 30, blood pressure 138/65. HEENT: Both pupils are round and reacting. No conjunctival lesion. Mouth cannot be visualized as orally intubated. NECK: Supple. No JVP, no lymphadenopathy. LUNGS: Clear. Decreased breath sounds. HEART: S1, S2 regular. No gallop or murmur. ABDOMEN: Soft, nontender. No organomegaly. EXTREMITIES: No edema or cyanosis. SKIN: Unremarkable. NEUROLOGIC: The patient is not able to; the patient is currently sedated, so unable to diagnostic sales specialist. LABORATORY DATA: White count is 19.8. BUN and creatinine is normal. Urinalysis: Unremarkable. COVID-19 is positive. Blood culture is negative. Chest CT showed bilateral pulmonary emboli and diffuse ground-glass opacity. IMPRESSION: 1. COVID-19 positive. 2. Respiratory failure. 3. Bilateral pulmonary emboli. 4. Hypertension. 5. Leukocytosis. RECOMMENDATIONS: Recommend continue supportive care. Continue steroids, remdesivir, Zosyn, anticoagulation and we will continue to follow. Thank you very much, Dr. Garcia, for giving me the opportunity to participate in this patient's care. MONALISA ROTHMAN MD DR: SILVIO/ambika JOB#: [id number] / [id number]
[2020-07-07 10:15] LABS: BASE EXCESS ABG 2 mmol/L (-3-3); HCO3 ABG 27 mmol/L (21-28); PCO2 ABG 42 mmHg (35-46); PO2 ABG 99 mmHg (75-108); SAT O2 ABG 97 % (92-99)
--- NOTE | 2020-07-07 10:26 | PDOC ---
PULMONARY PROGRESS NOTES DATE: 07/07/20 TIME: 10:25 Subjective Remains on mechanical ventilation, on 100% and PEEP of 10 afebrile No other concerns from nursing Vitals Vital Signs Date Time Temp Pulse Resp B/P (MAP) Pulse Ox O2 Delivery O2 Flow Rate FiO2 07/07/20 09:08 65 30 138/65 (89) 92 Ventilator 07/07/20 07:00 98.3 98.3 Comments Patient seen during pandemic visual exam performed Intubated/sedated no Accessory muscle use No obvious rash or edema Lungs: Other Labs Laboratory Tests Test 07/05/20 12:06 07/05/20 17:52 07/06/20 00:30 07/06/20 06:25 Heparin Anti-Xa Act, Unfractionated 0.11 IU/mL (0.30-0.70) 0.28 IU/mL (0.30-0.70) < 0.10 IU/mL (0.30-0.70) 0.42 IU/mL (0.30-0.70) White Blood Count 19.8 x10^3/uL (4.0-11.0) Red Blood Count 3.56 x10^6/uL (4.30-5.70) Hemoglobin 11.5 g/dL (13.0-17.5) Hematocrit 35.2 % (39.0-53.0) Mean Corpuscular Volume 99 fL (79-100) Mean Corpuscular Hemoglobin 32 pg (25-35) Mean Corpuscular Hemoglobin Concent 33 g/dL (31-37) Red Cell Distribution Width 13.1 % (11.5-14.5) Platelet Count 190 x10^3/uL (140-400) Sodium Level 139 mmol/L (136-145) Potassium Level 4.6 mmol/L (3.5-5.1) Chloride Level 104 mmol/L (98-107) Carbon Dioxide Level 29 mmol/L (21-32) Anion Gap 6 (6-14) Blood Urea Nitrogen 27 mg/dL (8-26) Creatinine 1.0 mg/dL (0.7-1.3) Estimated GFR (Cockcroft-Gault) 79.1 BUN/Creatinine Ratio 27 (6-20) Glucose Level 206 mg/dL (70-99) Calcium Level 7.9 mg/dL (8.5-10.1) Magnesium Level 2.7 mg/dL (1.8-2.4) Total Bilirubin 0.1 mg/dL (0.2-1.0) Aspartate Amino Transf (AST/SGOT) 21 U/L (15-37) Alanine Aminotransferase (ALT/SGPT) 27 U/L (16-63) Alkaline Phosphatase 60 U/L (46-116) Total Protein 5.6 g/dL (6.4-8.2) Albumin 1.5 g/dL (3.4-5.0) Albumin/Globulin Ratio 0.4 (1.0-1.7) Test 07/06/20 08:00 07/06/20 12:15 07/06/20 17:15 07/07/20 06:10 O2 Saturation 96 % (92-99) Arterial Blood pH 7.42 (7.35-7.45) Arterial Blood pCO2 at Patient Temp 40 mmHg (35-46) Arterial Blood pO2 at Patient Temp 88 mmHg (75-108) Arterial Blood HCO3 25 mmol/L (21-28) Arterial Blood Base Excess 1 mmol/L (-3-3) FiO2 100/vent Heparin Anti-Xa Act, Unfractionated 0.52 IU/mL (0.30-0.70) 0.45 IU/mL (0.30-0.70) Glucose (Fingerstick) 208 mg/dL (70-99) Laboratory Tests Test 07/06/20 12:15 07/06/20 17:15 07/07/20 06:10 Heparin Anti-Xa Act, Unfractionated 0.52 IU/mL (0.30-0.70) 0.45 IU/mL (0.30-0.70) Glucose (Fingerstick) 208 mg/dL (70-99) Comments CXRIMPRESSION: 1. Interval endotracheal intubation, ET tube 5.5 cm above the omero. 2. Enteric tube placement with the tip in the left upper quadrant abdomen. 3. Diffuse bilateral pulmonary infiltrates. Impression . IMPRESSION: 1. Acute hypoxemic respiratory failure. 2. Acute pulmonary embolism with cor pulmonale. 3. Possible COVID-19. 4[address] CT chest revealing ground glass opacities. 5. Hypertension. 6. History of bronchitis. 7. Elevated troponin. 8. Acute kidney injury. 9. Leukocytosis. 10. Covid-19 positive Plan . Continue current ventilatory support, currently on 100% and PEEP of 10, avoid increasing PEEP 2/2 risk of barotrauma Follow chest x-ray and ABG, Follow cardiology recommendations elevated troponin likely secondary to acute pulmonary embolism Antibiotics per ID--Zosyn,cont. full course of remdesivir Continue heparin drip for pulmonary embolism Continue IV steroids continue tube feeding for nutritional support DVT/GI prophylaxis, heparin drip/ Protonix Discussed with RN and RT Critical care time [id number] PM ALVIN RAMSEY MD Jul 07, 2020 10:26
[2020-07-07 10:39] LABS: FIO2 ABG 100% VENT
[2020-07-07] MEDS: MIDAZOLAM 100mg/100ml NS BAG 100 ML IV PRN ×2 (10:57→22:30)
[2020-07-07] MEDS: fentaNYL HIGH DOSE PCA 55 ML IV PRN ×2 (11:00→11:30)
[2020-07-07] MEDS: REMDESIVIR 100mg in NORMAL SALINE 250ML X 4 DAYS IV SCH (14:34)
--- NOTE | 2020-07-07 18:26 | NUR ---
7A No changes in vent settings. Lung ststus unchanged. sed.med w rate carried on from night settings. Secretions scant-mod/ yellow to pink tinged late afternoon. Cont w vent support + covid care protocl/Rx
[2020-07-07] MEDS: VECURONIUM BOLUS 10 MG VIAL. IV PRN (19:11)
[2020-07-08] VITALS (22 sets, daily range): BP systolic 113–139; BP diastolic 59–84
[2020-07-08] MEDS: PIPERACILLIN/TAZOBACTAM 3.375 GM in IV NORMAL SALINE 50ML 50 ML IV SCH ×4 (00:11→16:29)
[2020-07-08] MEDS: ASCORBIC ACID 500 MG TABLET PO SCH ×4 (00:11→17:44)
[2020-07-08] MEDS: INSULIN LISPRO 300 UNITS/3 ML VIAL. SQ SCH ×4 (00:20→17:41)
[2020-07-08] MEDS: HEPARIN 25,000UTS/250ML PREMIX 250 ML IV PRN ×2 (04:44→15:27)
[2020-07-08 05:44] LABS: BASO % 0 % (0-3); EOS % 0 % (0-3); HEMATOCRIT 34.3 % (39.0-53.0); HEMOGLOBIN 11.3 g/dL (13.0-17.5); LYMPH # 0.6 x10^3/uL (1.0-4.8); LYMPH % 5 % (24-48); MEAN CORPUSCULAR HEMOGLOBIN 33 pg (25-35); MEAN CORPUSCULAR HGB CONC 33 g/dL (31-37); MEAN CORPUSCULAR VOLUME 99 fL (79-100); MONO # 0.7 x10^3/uL (0.0-1.1); MONO % 6 % (0-9); NEUT # 11.2 x10^3/uL (1.8-7.7); NEUT % 89 % (31-73); PLATELET COUNT 185 x10^3/uL (140-400); RED BLOOD COUNT 3.46 x10^6/uL (4.30-5.70); RED CELL DISTRIBUTION WIDTH 13.3 % (11.5-14.5); WHITE BLOOD COUNT 12.6 x10^3/uL (4.0-11.0)
[2020-07-08 05:52] LABS: CALCIUM 7.5 mg/dL (8.5-10.1); CREATININE 0.8 mg/dL (0.7-1.3); GFR 102.3; POTASSIUM 4.7 mmol/L (3.5-5.1)
[2020-07-08] MEDS: methylPREDNISolone SOD SUCC PF 40 MG/ML VIAL. IV SCH ×3 (06:04→22:05)
--- NOTE | 2020-07-08 07:48 | PDOC ---
[facility] PROGRESS NOTE Date of Service DOS: DATE: 07/08/20 TIME: 07:47 Chief Complaint Chief Complaint Acute hypoxic respiratory failure requiring intubation COVID-19 PUI Subsegmental bilateral PE Leukocytosis NSTEMI AKA Lactic acidosis Hyponatremia Plan: Patient was intubated this morning after failing on BiPAP Consultations placed to pulmonology Consultations placed to cardiology Heparin infusion will address bilateral PEs and NSTEMI Solu-Medrol 40 mg every 8 hours Zosyn 3.75 mg every 6 hours IV fluids History of Present Illness History of Present Illness Patient is 49-year-old male with past medical history of hypertension, who presents to the ED with complaints of worsening shortness of breath over the past 5 days. Associated sore throat, fatigue, and generalized weakness. Patient was reportedly tested for COVID-19 last Thursday, but he had negative test results. His symptoms acutely worsened yesterday. Upon arrival to the ER his oxygen saturation was 60% on room air. He was placed on BiPAP and admitted to the ICU. Patient was subsequently intubated due to worsening respiratory failure. 07/05: Patient seen in ICU, still intubated and sedated. COVID-19 pending. Patient remains on heparin infusion. Discussed with RN, will try to have central line placed per anesthesia. 07/06: Patient seen in ICU. Still FiO2 100% on vent and sedated. COVID-19 positive. Continue heparin infusion, Zosyn, steroids. 07/07: Covid positive patient seen in ICU. On vent with FiO2 100%, PEEP 10. Continue remdesivir, steroids, Zosyn. Continue to monitor 07/08: Patient seen in Covid ICU. Still on vent with FiO2 100%, PEEP 10. Afebrile. No acute events overnight. Continue steroids, antibiotics, and remdesivir. Vitals/I&O Vitals/I&O: Vital Signs Date Time Temp Pulse Resp B/P (MAP) Pulse Ox O2 Delivery O2 Flow Rate FiO2 07/08/20 06:00 59 30 128/76 (93) 94 Ventilator 07/08/20 04:00 98.8 98.8 07/07/20 12:00 15.0 I & O 07/07/20 07/07/20 07/08/20 15:00 23:00 07:00 Intake Total 200 ml 1318 ml 1494.2 ml Output Total 725 ml 425 ml 580 ml Balance -525 ml 893 ml 914.2 ml Physical Exam General: Other (Sedated) Heart: Regular rate (SR/ST) Lungs: Other Abdomen: Other (Nondistended) Extremities: No clubbing, No cyanosis Skin: No rashes, No breakdown Labs Labs: Laboratory Tests Test 07/07/20 10:00 07/07/20 12:14 07/07/20 17:41 07/08/20 00:17 O2 Saturation 97 % (92-99) Arterial Blood pH 7.43 (7.35-7.45) Arterial Blood pCO2 at Patient Temp 42 mmHg (35-46) Arterial Blood pO2 at Patient Temp 99 mmHg (75-108) Arterial Blood HCO3 27 mmol/L (21-28) Arterial Blood Base Excess 2 mmol/L (-3-3) FiO2 100% vent Glucose (Fingerstick) 243 mg/dL (70-99) 213 mg/dL (70-99) 213 mg/dL (70-99) Test 07/08/20 05:30 07/08/20 05:33 White Blood Count 12.6 x10^3/uL (4.0-11.0) Red Blood Count 3.46 x10^6/uL (4.30-5.70) Hemoglobin 11.3 g/dL (13.0-17.5) Hematocrit 34.3 % (39.0-53.0) Mean Corpuscular Volume 99 fL (79-100) Mean Corpuscular Hemoglobin 33 pg (25-35) Mean Corpuscular Hemoglobin Concent 33 g/dL (31-37) Red Cell Distribution Width 13.3 % (11.5-14.5) Platelet Count 185 x10^3/uL (140-400) Neutrophils (%) (Auto) 89 % (31-73) Lymphocytes (%) (Auto) 5 % (24-48) Monocytes (%) (Auto) 6 % (0-9) Eosinophils (%) (Auto) 0 % (0-3) Basophils (%) (Auto) 0 % (0-3) Neutrophils # (Auto) 11.2 x10^3/uL (1.8-7.7) Lymphocytes # (Auto) 0.6 x10^3/uL (1.0-4.8) Monocytes # (Auto) 0.7 x10^3/uL (0.0-1.1) Eosinophils # (Auto) 0.0 x10^3/uL (0.0-0.7) Basophils # (Auto) 0.0 x10^3/uL (0.0-0.2) Heparin Anti-Xa Act, Unfractionated 0.98 IU/mL (0.30-0.70) Sodium Level 139 mmol/L (136-145) Potassium Level 4.7 mmol/L (3.5-5.1) Chloride Level 104 mmol/L (98-107) Carbon Dioxide Level 31 mmol/L (21-32) Anion Gap 4 (6-14) Blood Urea Nitrogen 26 mg/dL (8-26) Creatinine 0.8 mg/dL (0.7-1.3) Estimated GFR (Cockcroft-Gault) 102.3 Glucose Level 207 mg/dL (70-99) Calcium Level 7.5 mg/dL (8.5-10.1) Glucose (Fingerstick) 202 mg/dL (70-99) Review of Systems Review of Systems: Unable to obtain due to clinical condition Assessment and Plan Assessmemt and Plan Problems Medical Problems: (1) Acute respiratory failure with hypoxia Status: Acute (2) PRIYA (acute kidney injury) Status: Acute (3) Elevated troponin I level Status: Acute (4) Pulmonary emboli Status: Acute (5) Suspected COVID-19 virus infection Status: Acute Comment Review of Relevant I have reviewed the following items trino (where applicable) has been applied. Medications: Current Medications Medications (Trade) Dose Ordered Sig/Natalee Route PRN Reason Start Time Stop Time Status Last Admin Dose Admin Remdesivir 100 mg/ Sodium Chloride 230 ml @ 460 mls/hr Q24H IV 07/07/20 14:30 07/10/20 14:59 07/07/20 14:34 Justifications for Admission Other Justification SHERLY DUKES MD Jul 08, 2020 07:48
[2020-07-08 08:25] LABS: MAGNESIUM 2.6 mg/dL (1.8-2.4)
[2020-07-08] MEDS: MIDAZOLAM 100mg/100ml NS BAG 100 ML IV PRN (09:03)
[2020-07-08 09:09] LABS: BASE EXCESS ABG 0 mmol/L (-3-3); HCO3 ABG 24 mmol/L (21-28); PCO2 ABG 37 mmHg (35-46); PO2 ABG 69 mmHg (75-108); SAT O2 ABG 93 % (92-99)
[2020-07-08 09:15] LABS: FIO2 ABG 100%
[2020-07-08] MEDS: PANTOPRAZOLE IV PUSH 40 MG VIAL. IVP SCH (09:29)
[2020-07-08] MEDS: ZINC SULFATE 220 MG CAPSULE. PO SCH (09:29)
[2020-07-08] MEDS: CHOLECALCIFEROL (VITAMIN D3) 5,000 UNIT CAPSULE PO SCH (09:29)
--- NOTE | 2020-07-08 10:25 | PDOC ---
PULMONARY PROGRESS NOTES DATE: 07/08/20 TIME: 10:24 Subjective Remains on mechanical ventilation, on 100% and PEEP of 10 afebrile No other concerns from nursing Vitals Vital Signs Date Time Temp Pulse Resp B/P (MAP) Pulse Ox O2 Delivery O2 Flow Rate FiO2 07/08/20 08:10 96 Ventilator 07/08/20 06:00 59 30 128/76 (93) 07/08/20 04:00 98.8 98.8 07/07/20 12:00 15.0 Comments Patient seen during pandemic visual exam performed Intubated/sedated no Accessory muscle use No obvious rash or edema Lungs: Other Labs Laboratory Tests Test 07/06/20 12:15 07/06/20 17:15 07/07/20 05:44 07/07/20 06:10 Heparin Anti-Xa Act, Unfractionated 0.52 IU/mL (0.30-0.70) 0.45 IU/mL (0.30-0.70) Glucose (Fingerstick) 208 mg/dL (70-99) 217 mg/dL (70-99) Test 07/07/20 10:00 07/07/20 12:14 07/07/20 17:41 07/08/20 00:17 O2 Saturation 97 % (92-99) Arterial Blood pH 7.43 (7.35-7.45) Arterial Blood pCO2 at Patient Temp 42 mmHg (35-46) Arterial Blood pO2 at Patient Temp 99 mmHg (75-108) Arterial Blood HCO3 27 mmol/L (21-28) Arterial Blood Base Excess 2 mmol/L (-3-3) FiO2 100% vent Glucose (Fingerstick) 243 mg/dL (70-99) 213 mg/dL (70-99) 213 mg/dL (70-99) Test 07/08/20 05:30 07/08/20 05:33 07/08/20 08:00 White Blood Count 12.6 x10^3/uL (4.0-11.0) Red Blood Count 3.46 x10^6/uL (4.30-5.70) Hemoglobin 11.3 g/dL (13.0-17.5) Hematocrit 34.3 % (39.0-53.0) Mean Corpuscular Volume 99 fL (79-100) Mean Corpuscular Hemoglobin 33 pg (25-35) Mean Corpuscular Hemoglobin Concent 33 g/dL (31-37) Red Cell Distribution Width 13.3 % (11.5-14.5) Platelet Count 185 x10^3/uL (140-400) Neutrophils (%) (Auto) 89 % (31-73) Lymphocytes (%) (Auto) 5 % (24-48) Monocytes (%) (Auto) 6 % (0-9) Eosinophils (%) (Auto) 0 % (0-3) Basophils (%) (Auto) 0 % (0-3) Neutrophils # (Auto) 11.2 x10^3/uL (1.8-7.7) Lymphocytes # (Auto) 0.6 x10^3/uL (1.0-4.8) Monocytes # (Auto) 0.7 x10^3/uL (0.0-1.1) Eosinophils # (Auto) 0.0 x10^3/uL (0.0-0.7) Basophils # (Auto) 0.0 x10^3/uL (0.0-0.2) Heparin Anti-Xa Act, Unfractionated 0.98 IU/mL (0.30-0.70) Sodium Level 139 mmol/L (136-145) Potassium Level 4.7 mmol/L (3.5-5.1) Chloride Level 104 mmol/L (98-107) Carbon Dioxide Level 31 mmol/L (21-32) Anion Gap 4 (6-14) Blood Urea Nitrogen 26 mg/dL (8-26) Creatinine 0.8 mg/dL (0.7-1.3) Estimated GFR (Cockcroft-Gault) 102.3 Glucose Level 207 mg/dL (70-99) Calcium Level 7.5 mg/dL (8.5-10.1) Magnesium Level 2.6 mg/dL (1.8-2.4) Creatine Kinase 155 U/L (39-308) Glucose (Fingerstick) 202 mg/dL (70-99) O2 Saturation 93 % (92-99) Arterial Blood pH 7.43 (7.35-7.45) Arterial Blood pCO2 at Patient Temp 37 mmHg (35-46) Arterial Blood pO2 at Patient Temp 69 mmHg (75-108) Arterial Blood HCO3 24 mmol/L (21-28) Arterial Blood Base Excess 0 mmol/L (-3-3) FiO2 100% Laboratory Tests Test 07/07/20 12:14 07/07/20 17:41 07/08/20 00:17 07/08/20 05:30 Glucose (Fingerstick) 243 mg/dL (70-99) 213 mg/dL (70-99) 213 mg/dL (70-99) White Blood Count 12.6 x10^3/uL (4.0-11.0) Red Blood Count 3.46 x10^6/uL (4.30-5.70) Hemoglobin 11.3 g/dL (13.0-17.5) Hematocrit 34.3 % (39.0-53.0) Mean Corpuscular Volume 99 fL (79-100) Mean Corpuscular Hemoglobin 33 pg (25-35) Mean Corpuscular Hemoglobin Concent 33 g/dL (31-37) Red Cell Distribution Width 13.3 % (11.5-14.5) Platelet Count 185 x10^3/uL (140-400) Neutrophils (%) (Auto) 89 % (31-73) Lymphocytes (%) (Auto) 5 % (24-48) Monocytes (%) (Auto) 6 % (0-9) Eosinophils (%) (Auto) 0 % (0-3) Basophils (%) (Auto) 0 % (0-3) Neutrophils # (Auto) 11.2 x10^3/uL (1.8-7.7) Lymphocytes # (Auto) 0.6 x10^3/uL (1.0-4.8) Monocytes # (Auto) 0.7 x10^3/uL (0.0-1.1) Eosinophils # (Auto) 0.0 x10^3/uL (0.0-0.7) Basophils # (Auto) 0.0 x10^3/uL (0.0-0.2) Heparin Anti-Xa Act, Unfractionated 0.98 IU/mL (0.30-0.70) Sodium Level 139 mmol/L (136-145) Potassium Level 4.7 mmol/L (3.5-5.1) Chloride Level 104 mmol/L (98-107) Carbon Dioxide Level 31 mmol/L (21-32) Anion Gap 4 (6-14) Blood Urea Nitrogen 26 mg/dL (8-26) Creatinine 0.8 mg/dL (0.7-1.3) Estimated GFR (Cockcroft-Gault) 102.3 Glucose Level 207 mg/dL (70-99) Calcium Level 7.5 mg/dL (8.5-10.1) Magnesium Level 2.6 mg/dL (1.8-2.4) Creatine Kinase 155 U/L (39-308) Test 07/08/20 05:33 07/08/20 08:00 Glucose (Fingerstick) 202 mg/dL (70-99) O2 Saturation 93 % (92-99) Arterial Blood pH 7.43 (7.35-7.45) Arterial Blood pCO2 at Patient Temp 37 mmHg (35-46) Arterial Blood pO2 at Patient Temp 69 mmHg (75-108) Arterial Blood HCO3 24 mmol/L (21-28) Arterial Blood Base Excess 0 mmol/L (-3-3) FiO2 100% Comments CXRIMPRESSION: 1. Interval endotracheal intubation, ET tube 5.5 cm above the omero. 2. Enteric tube placement with the tip in the left upper quadrant abdomen. 3. Diffuse bilateral pulmonary infiltrates. Impression . IMPRESSION: 1. Acute hypoxemic respiratory failure. 2. Acute pulmonary embolism with cor pulmonale. 3. Possible COVID-19. [address] CT chest revealing ground glass opacities. 5. Hypertension. 6. History of bronchitis. 7. Elevated troponin. 8. Acute kidney injury. 9. Leukocytosis. 10. Covid-19 positive Plan . Continue current ventilatory support, currently on 100% and PEEP of 10, avoid increasing PEEP 2/2 risk of barotrauma Follow chest x-ray and ABG, Follow cardiology recommendations Antibiotics per ID--Zosyn,cont. full course of remdesivir Continue heparin drip for pulmonary embolism Continue IV steroids with Taper continue tube feeding for nutritional support DVT/GI prophylaxis, heparin drip/ Protonix Discussed with RN and RT Critical care time [id number] AM ALVIN RAMSEY MD Jul 08, 2020 10:25
[2020-07-08] MEDS: fentaNYL HIGH DOSE PCA 55 ML IV PRN (11:07)
[2020-07-08] MEDS: REMDESIVIR 100mg in NORMAL SALINE 250ML X 4 DAYS IV SCH (13:55)
--- NOTE | 2020-07-08 15:44 | NUR ---
NOTE : Time study for UFH at 1330 sent to lab after med changes made and order changed . Communication w Nieves in lab on results. Nurse noted 1230 lab cancelled. Questioned Nieves about 1330 specimen that has been sent at 1328 by this nurse(Yarelis ROB ) per tube and was told "never received it." 1558 repeat line draw w [facility] order to draw now
[2020-07-08] MEDS: VECURONIUM BOLUS 10 MG VIAL. IV PRN (16:28)
[2020-07-09] VITALS (24 sets, daily range): BP systolic 108–136; BP diastolic 60–75
[2020-07-09] MEDS: ASCORBIC ACID 500 MG TABLET PO SCH ×4 (00:17→17:17)
[2020-07-09] MEDS: PIPERACILLIN/TAZOBACTAM 3.375 GM in IV NORMAL SALINE 50ML 50 ML IV SCH ×4 (00:18→17:17)
[2020-07-09] MEDS: INSULIN LISPRO 300 UNITS/3 ML VIAL. SQ SCH ×4 (00:46→17:37)
[2020-07-09] MEDS: MIDAZOLAM 100mg/100ml NS BAG 100 ML IV PRN ×3 (00:47→19:47)
[2020-07-09] MEDS: HEPARIN 25,000UTS/250ML PREMIX 250 ML IV PRN ×2 (05:39→22:44)
[2020-07-09] MEDS: methylPREDNISolone SOD SUCC PF 40 MG/ML VIAL. IV SCH ×3 (06:04→23:20)
[2020-07-09 06:25] LABS: BASO % 0 % (0-3); EOS % 0 % (0-3); HEMATOCRIT 34.8 % (39.0-53.0); HEMOGLOBIN 11.5 g/dL (13.0-17.5); LYMPH # 0.4 x10^3/uL (1.0-4.8); LYMPH % 4 % (24-48); MEAN CORPUSCULAR HEMOGLOBIN 33 pg (25-35); MEAN CORPUSCULAR HGB CONC 33 g/dL (31-37); MEAN CORPUSCULAR VOLUME 100 fL (79-100); MONO # 0.7 x10^3/uL (0.0-1.1); MONO % 5 % (0-9); NEUT # 11.2 x10^3/uL (1.8-7.7); NEUT % 91 % (31-73); PLATELET COUNT 191 x10^3/uL (140-400); RED BLOOD COUNT 3.49 x10^6/uL (4.30-5.70); RED CELL DISTRIBUTION WIDTH 13.3 % (11.5-14.5); WHITE BLOOD COUNT 12.3 x10^3/uL (4.0-11.0)
[2020-07-09 06:34] LABS: CALCIUM 7.5 mg/dL (8.5-10.1); CREATININE 0.8 mg/dL (0.7-1.3); GFR 102.3
[2020-07-09 08:00] LABS: BASE EXCESS ABG 4 mmol/L (-3-3); HCO3 ABG 29 mmol/L (21-28); PCO2 ABG 45 mmHg (35-46); PO2 ABG 109 mmHg (75-108); SAT O2 ABG 98 % (92-99)
--- NOTE | 2020-07-09 08:05 | PDOC ---
Infectious Disease Note Subjective Subjective Sedated intubated ROS ROS Unable to do Vital Sign Vital Signs Vital Signs Date Time Temp Pulse Resp B/P (MAP) Pulse Ox O2 Delivery O2 Flow Rate FiO2 07/09/20 07:58 Mechanical Ventilator 07/09/20 07:00 57 30 122/70 (87) 96 07/09/20 04:00 98.4 98.4 07/08/20 11:07 15.0 Physical Exam PHYSICAL EXAM GENERAL: Sedated, orally intubated gentleman, not in any distress. VITAL SIGNS: Stable HEENT: Both pupils are round and reacting. No conjunctival lesion. Mouth cannot be visualized as orally intubated. NECK: Supple. No JVP, no lymphadenopathy. LUNGS: Clear. Decreased breath sounds. HEART: S1, S2 regular. No gallop or murmur. ABDOMEN: Soft, nontender. No organomegaly. EXTREMITIES: No edema or cyanosis. SKIN: Unremarkable. NEUROLOGIC: The patient is not able to; the patient is currently sedated, so unable to software testing specialist. Labs Lab Laboratory Tests Test 07/08/20 16:00 07/08/20 17:34 07/08/20 22:20 07/09/20 06:00 Heparin Anti-Xa Act, Unfractionated 0.62 IU/mL (0.30-0.70) 0.85 IU/mL (0.30-0.70) < 0.10 IU/mL (0.30-0.70) Glucose (Fingerstick) 244 mg/dL (70-99) White Blood Count 12.3 x10^3/uL (4.0-11.0) Red Blood Count 3.49 x10^6/uL (4.30-5.70) Hemoglobin 11.5 g/dL (13.0-17.5) Hematocrit 34.8 % (39.0-53.0) Mean Corpuscular Volume 100 fL (79-100) Mean Corpuscular Hemoglobin 33 pg (25-35) Mean Corpuscular Hemoglobin Concent 33 g/dL (31-37) Red Cell Distribution Width 13.3 % (11.5-14.5) Platelet Count 191 x10^3/uL (140-400) Neutrophils (%) (Auto) 91 % (31-73) Lymphocytes (%) (Auto) 4 % (24-48) Monocytes (%) (Auto) 5 % (0-9) Eosinophils (%) (Auto) 0 % (0-3) Basophils (%) (Auto) 0 % (0-3) Neutrophils # (Auto) 11.2 x10^3/uL (1.8-7.7) Lymphocytes # (Auto) 0.4 x10^3/uL (1.0-4.8) Monocytes # (Auto) 0.7 x10^3/uL (0.0-1.1) Eosinophils # (Auto) 0.0 x10^3/uL (0.0-0.7) Basophils # (Auto) 0.0 x10^3/uL (0.0-0.2) Sodium Level 136 mmol/L (136-145) Potassium Level 5.0 mmol/L (3.5-5.1) Chloride Level 103 mmol/L (98-107) Carbon Dioxide Level 32 mmol/L (21-32) Anion Gap 1 (6-14) Blood Urea Nitrogen 25 mg/dL (8-26) Creatinine 0.8 mg/dL (0.7-1.3) Estimated GFR (Cockcroft-Gault) 102.3 Glucose Level 231 mg/dL (70-99) Calcium Level 7.5 mg/dL (8.5-10.1) Micro Microbiology 07/03/20 Blood Culture - Final, Complete NO GROWTH AFTER 5 DAYS Objective Assessment IMPRESSION: 1. COVID-19 positive. 2. Respiratory failure. 3. Bilateral pulmonary emboli. 4. Hypertension. 5. Leukocytosis. Plan Plan of Care Continue supportive care Steroids Remdesivir MONALISA Ibanez MD Jul 09, 2020 08:05
[2020-07-09] MEDS: CHOLECALCIFEROL (VITAMIN D3) 5,000 UNIT CAPSULE PO SCH (08:21)
[2020-07-09] MEDS: ZINC SULFATE 220 MG CAPSULE. PO SCH (08:21)
[2020-07-09] MEDS: PANTOPRAZOLE IV PUSH 40 MG VIAL. IVP SCH (08:21)
--- NOTE | 2020-07-09 08:44 | PDOC ---
PULMONARY PROGRESS NOTES DATE: 07/09/20 TIME: 08:44 Subjective Remains on mechanical ventilation, on 100% and PEEP of 10 afebrile No other concerns from nursing Vitals Vital Signs Date Time Temp Pulse Resp B/P (MAP) Pulse Ox O2 Delivery O2 Flow Rate FiO2 07/09/20 08:00 98.6 59 30 122/70 (87) 96 Ventilator 98.6 07/08/20 11:07 15.0 Comments Patient seen during pandemic visual exam performed Intubated/sedated no Accessory muscle use No obvious rash or edema Lungs: Other Labs Laboratory Tests Test 07/07/20 10:00 07/07/20 12:14 07/07/20 17:41 07/08/20 00:17 O2 Saturation 97 % (92-99) Arterial Blood pH 7.43 (7.35-7.45) Arterial Blood pCO2 at Patient Temp 42 mmHg (35-46) Arterial Blood pO2 at Patient Temp 99 mmHg (75-108) Arterial Blood HCO3 27 mmol/L (21-28) Arterial Blood Base Excess 2 mmol/L (-3-3) FiO2 100% vent Glucose (Fingerstick) 243 mg/dL (70-99) 213 mg/dL (70-99) 213 mg/dL (70-99) Test 07/08/20 05:30 07/08/20 05:33 07/08/20 08:00 07/08/20 16:00 White Blood Count 12.6 x10^3/uL (4.0-11.0) Red Blood Count 3.46 x10^6/uL (4.30-5.70) Hemoglobin 11.3 g/dL (13.0-17.5) Hematocrit 34.3 % (39.0-53.0) Mean Corpuscular Volume 99 fL (79-100) Mean Corpuscular Hemoglobin 33 pg (25-35) Mean Corpuscular Hemoglobin Concent 33 g/dL (31-37) Red Cell Distribution Width 13.3 % (11.5-14.5) Platelet Count 185 x10^3/uL (140-400) Neutrophils (%) (Auto) 89 % (31-73) Lymphocytes (%) (Auto) 5 % (24-48) Monocytes (%) (Auto) 6 % (0-9) Eosinophils (%) (Auto) 0 % (0-3) Basophils (%) (Auto) 0 % (0-3) Neutrophils # (Auto) 11.2 x10^3/uL (1.8-7.7) Lymphocytes # (Auto) 0.6 x10^3/uL (1.0-4.8) Monocytes # (Auto) 0.7 x10^3/uL (0.0-1.1) Eosinophils # (Auto) 0.0 x10^3/uL (0.0-0.7) Basophils # (Auto) 0.0 x10^3/uL (0.0-0.2) Heparin Anti-Xa Act, Unfractionated 0.98 IU/mL (0.30-0.70) 0.62 IU/mL (0.30-0.70) Sodium Level 139 mmol/L (136-145) Potassium Level 4.7 mmol/L (3.5-5.1) Chloride Level 104 mmol/L (98-107) Carbon Dioxide Level 31 mmol/L (21-32) Anion Gap 4 (6-14) Blood Urea Nitrogen 26 mg/dL (8-26) Creatinine 0.8 mg/dL (0.7-1.3) Estimated GFR (Cockcroft-Gault) 102.3 Glucose Level 207 mg/dL (70-99) Calcium Level 7.5 mg/dL (8.5-10.1) Magnesium Level 2.6 mg/dL (1.8-2.4) Creatine Kinase 155 U/L (39-308) Glucose (Fingerstick) 202 mg/dL (70-99) O2 Saturation 93 % (92-99) Arterial Blood pH 7.43 (7.35-7.45) Arterial Blood pCO2 at Patient Temp 37 mmHg (35-46) Arterial Blood pO2 at Patient Temp 69 mmHg (75-108) Arterial Blood HCO3 24 mmol/L (21-28) Arterial Blood Base Excess 0 mmol/L (-3-3) FiO2 100% Test 07/08/20 17:34 07/08/20 22:20 07/09/20 06:00 07/09/20 08:00 Glucose (Fingerstick) 244 mg/dL (70-99) Heparin Anti-Xa Act, Unfractionated 0.85 IU/mL (0.30-0.70) < 0.10 IU/mL (0.30-0.70) White Blood Count 12.3 x10^3/uL (4.0-11.0) Red Blood Count 3.49 x10^6/uL (4.30-5.70) Hemoglobin 11.5 g/dL (13.0-17.5) Hematocrit 34.8 % (39.0-53.0) Mean Corpuscular Volume 100 fL (79-100) Mean Corpuscular Hemoglobin 33 pg (25-35) Mean Corpuscular Hemoglobin Concent 33 g/dL (31-37) Red Cell Distribution Width 13.3 % (11.5-14.5) Platelet Count 191 x10^3/uL (140-400) Neutrophils (%) (Auto) 91 % (31-73) Lymphocytes (%) (Auto) 4 % (24-48) Monocytes (%) (Auto) 5 % (0-9) Eosinophils (%) (Auto) 0 % (0-3) Basophils (%) (Auto) 0 % (0-3) Neutrophils # (Auto) 11.2 x10^3/uL (1.8-7.7) Lymphocytes # (Auto) 0.4 x10^3/uL (1.0-4.8) Monocytes # (Auto) 0.7 x10^3/uL (0.0-1.1) Eosinophils # (Auto) 0.0 x10^3/uL (0.0-0.7) Basophils # (Auto) 0.0 x10^3/uL (0.0-0.2) Sodium Level 136 mmol/L (136-145) Potassium Level 5.0 mmol/L (3.5-5.1) Chloride Level 103 mmol/L (98-107) Carbon Dioxide Level 32 mmol/L (21-32) Anion Gap 1 (6-14) Blood Urea Nitrogen 25 mg/dL (8-26) Creatinine 0.8 mg/dL (0.7-1.3) Estimated GFR (Cockcroft-Gault) 102.3 Glucose Level 231 mg/dL (70-99) Calcium Level 7.5 mg/dL (8.5-10.1) O2 Saturation 98 % (92-99) Arterial Blood pH 7.43 (7.35-7.45) Arterial Blood pCO2 at Patient Temp 45 mmHg (35-46) Arterial Blood pO2 at Patient Temp 109 mmHg (75-108) Arterial Blood HCO3 29 mmol/L (21-28) Arterial Blood Base Excess 4 mmol/L (-3-3) FiO2 100% vent Laboratory Tests Test 07/08/20 16:00 07/08/20 17:34 07/08/20 22:20 07/09/20 06:00 Heparin Anti-Xa Act, Unfractionated 0.62 IU/mL (0.30-0.70) 0.85 IU/mL (0.30-0.70) < 0.10 IU/mL (0.30-0.70) Glucose (Fingerstick) 244 mg/dL (70-99) White Blood Count 12.3 x10^3/uL (4.0-11.0) Red Blood Count 3.49 x10^6/uL (4.30-5.70) Hemoglobin 11.5 g/dL (13.0-17.5) Hematocrit 34.8 % (39.0-53.0) Mean Corpuscular Volume 100 fL (79-100) Mean Corpuscular Hemoglobin 33 pg (25-35) Mean Corpuscular Hemoglobin Concent 33 g/dL (31-37) Red Cell Distribution Width 13.3 % (11.5-14.5) Platelet Count 191 x10^3/uL (140-400) Neutrophils (%) (Auto) 91 % (31-73) Lymphocytes (%) (Auto) 4 % (24-48) Monocytes (%) (Auto) 5 % (0-9) Eosinophils (%) (Auto) 0 % (0-3) Basophils (%) (Auto) 0 % (0-3) Neutrophils # (Auto) 11.2 x10^3/uL (1.8-7.7) Lymphocytes # (Auto) 0.4 x10^3/uL (1.0-4.8) Monocytes # (Auto) 0.7 x10^3/uL (0.0-1.1) Eosinophils # (Auto) 0.0 x10^3/uL (0.0-0.7) Basophils # (Auto) 0.0 x10^3/uL (0.0-0.2) Sodium Level 136 mmol/L (136-145) Potassium Level 5.0 mmol/L (3.5-5.1) Chloride Level 103 mmol/L (98-107) Carbon Dioxide Level 32 mmol/L (21-32) Anion Gap 1 (6-14) Blood Urea Nitrogen 25 mg/dL (8-26) Creatinine 0.8 mg/dL (0.7-1.3) Estimated GFR (Cockcroft-Gault) 102.3 Glucose Level 231 mg/dL (70-99) Calcium Level 7.5 mg/dL (8.5-10.1) Test 07/09/20 08:00 O2 Saturation 98 % (92-99) Arterial Blood pH 7.43 (7.35-7.45) Arterial Blood pCO2 at Patient Temp 45 mmHg (35-46) Arterial Blood pO2 at Patient Temp 109 mmHg (75-108) Arterial Blood HCO3 29 mmol/L (21-28) Arterial Blood Base Excess 4 mmol/L (-3-3) FiO2 100% vent Comments CXRIMPRESSION: 1. Interval endotracheal intubation, ET tube 5.5 cm above the omero. 2. Enteric tube placement with the tip in the left upper quadrant abdomen. 3. Diffuse bilateral pulmonary infiltrates. Impression . IMPRESSION: 1. Acute hypoxemic respiratory failure. 2. Acute pulmonary embolism with cor pulmonale. 3. Possible COVID-19. 4[address] CT chest revealing ground glass opacities. 5. Hypertension. 6. History of bronchitis. 7. Elevated troponin. 8. Acute kidney injury. 9. Leukocytosis. 10. Covid-19 positive Plan . Continue current ventilatory support, currently on 100% and PEEP of 10, avoid increasing PEEP 2/2 risk of barotrauma Follow chest x-ray and ABG, will reduce Fi02 to 90 % Follow cardiology recommendations Antibiotics per ID--Zosyn,cont. full course of remdesivir Continue heparin drip for pulmonary embolism Continue IV steroids with Taper continue tube feeding for nutritional support DVT/GI prophylaxis, heparin drip/ Protonix Discussed with RN and RT Critical care time [id number] AM ALVIN RAMSEY MD Jul 09, 2020 08:44
[2020-07-09] MEDS: HEPARIN for IV BOLUS 10,000 UNIT/10 ML VIAL. IV PRN (08:47)
[2020-07-09] MEDS: fentaNYL HIGH DOSE PCA 55 ML IV PRN (10:45)
--- NOTE | 2020-07-09 11:52 | PDOC ---
[facility] PROGRESS NOTE Date of Service DOS: DATE: 07/09/20 TIME: 11:49 Chief Complaint Chief Complaint Acute hypoxic respiratory failure requiring intubation COVID-19 PUI Subsegmental bilateral PE Leukocytosis NSTEMI AKA Lactic acidosis Hyponatremia Plan: Patient was intubated this morning after failing on BiPAP Appreciate pulmonology recommendationsContinue current ventilatory support, currently on 100% and PEEP of 10, avoid increasing PEEP 2/2 risk of barotrauma Follow chest x-ray and ABG, will reduce Fi02 to 90 % Consultations placed to cardiology Heparin infusion will address bilateral PEs and NSTEMI Solu-Medrol 40 mg every 8 hours Appreciate ID recommendationscontinue Remdesivir and empiric antibiotics IV fluids A total of 32 minutes of critical care time was spent in reviewing chart, labs, and images. Discussed with RN and SW. History of Present Illness History of Present Illness 07/09/2020 Patient seen and examined in the ICU. Intubated and sedated. Vent settings FiO2 90%, PEEP of 10, respiratory rate of 30. 07/05: Patient seen in ICU, still intubated and sedated. COVID-19 pending. Patient remains on heparin infusion. Discussed with RN, will try to have central line placed per anesthesia. 07/06: Patient seen in ICU. Still FiO2 100% on vent and sedated. COVID-19 positive. Continue heparin infusion, Zosyn, steroids. 07/07: Covid positive patient seen in ICU. On vent with FiO2 100%, PEEP 10. Continue remdesivir, steroids, Zosyn. Continue to monitor 07/08: Patient seen in Covid ICU. Still on vent with FiO2 100%, PEEP 10. Afebrile. No acute events overnight. Continue steroids, antibiotics, and remdesivir. Patient is 49-year-old male with past medical history of hypertension, who presents to the ED with complaints of worsening shortness of breath over the past 5 days. Associated sore throat, fatigue, and generalized weakness. Patient was reportedly tested for COVID-19 last Thursday, but he had negative test results. His symptoms acutely worsened yesterday. Upon arrival to the ER his oxygen saturation was 60% on room air. He was placed on BiPAP and admitted to the ICU. Patient was subsequently intubated due to worsening respiratory failure. Vitals/I&O Vitals/I&O: Vital Signs Date Time Temp Pulse Resp B/P (MAP) Pulse Ox O2 Delivery O2 Flow Rate FiO2 07/09/20 11:00 61 30 121/69 (86) 96 Ventilator 07/09/20 08:00 98.6 98.6 07/08/20 11:07 15.0 I & O 07/08/20 07/08/20 07/09/20 15:00 23:00 07:00 Intake Total 100 ml 843.9 ml 1574.9 ml Output Total 320 ml 250 ml 650 ml Balance -220 ml 593.9 ml 924.9 ml Physical Exam Physical Exam: GENERAL: Sedated, orally intubated gentleman, not in any distress. VITAL SIGNS: Stable HEENT: Both pupils are round and reacting. No conjunctival lesion. Mouth cannot be visualized as orally intubated. NECK: Supple. No JVP, no lymphadenopathy. LUNGS: Clear. Decreased breath sounds. HEART: S1, S2 regular. No gallop or murmur. ABDOMEN: Soft, nontender. No organomegaly. EXTREMITIES: No edema or cyanosis. SKIN: Unremarkable. 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 General: Other (Sedated) Heart: Regular rate (SR/ST) Lungs: Other Abdomen: Other (Nondistended) Extremities: No clubbing, No cyanosis Skin: No rashes, No breakdown Labs Labs: Laboratory Tests Test 07/08/20 16:00 07/08/20 17:34 07/08/20 22:20 07/09/20 06:00 Heparin Anti-Xa Act, Unfractionated 0.62 IU/mL (0.30-0.70) 0.85 IU/mL (0.30-0.70) < 0.10 IU/mL (0.30-0.70) Glucose (Fingerstick) 244 mg/dL (70-99) White Blood Count 12.3 x10^3/uL (4.0-11.0) Red Blood Count 3.49 x10^6/uL (4.30-5.70) Hemoglobin 11.5 g/dL (13.0-17.5) Hematocrit 34.8 % (39.0-53.0) Mean Corpuscular Volume 100 fL (79-100) Mean Corpuscular Hemoglobin 33 pg (25-35) Mean Corpuscular Hemoglobin Concent 33 g/dL (31-37) Red Cell Distribution Width 13.3 % (11.5-14.5) Platelet Count 191 x10^3/uL (140-400) Neutrophils (%) (Auto) 91 % (31-73) Lymphocytes (%) (Auto) 4 % (24-48) Monocytes (%) (Auto) 5 % (0-9) Eosinophils (%) (Auto) 0 % (0-3) Basophils (%) (Auto) 0 % (0-3) Neutrophils # (Auto) 11.2 x10^3/uL (1.8-7.7) Lymphocytes # (Auto) 0.4 x10^3/uL (1.0-4.8) Monocytes # (Auto) 0.7 x10^3/uL (0.0-1.1) Eosinophils # (Auto) 0.0 x10^3/uL (0.0-0.7) Basophils # (Auto) 0.0 x10^3/uL (0.0-0.2) Sodium Level 136 mmol/L (136-145) Potassium Level 5.0 mmol/L (3.5-5.1) Chloride Level 103 mmol/L (98-107) Carbon Dioxide Level 32 mmol/L (21-32) Anion Gap 1 (6-14) Blood Urea Nitrogen 25 mg/dL (8-26) Creatinine 0.8 mg/dL (0.7-1.3) Estimated GFR (Cockcroft-Gault) 102.3 Glucose Level 231 mg/dL (70-99) Calcium Level 7.5 mg/dL (8.5-10.1) Test 07/09/20 08:00 O2 Saturation 98 % (92-99) Arterial Blood pH 7.43 (7.35-7.45) Arterial Blood pCO2 at Patient Temp 45 mmHg (35-46) Arterial Blood pO2 at Patient Temp 109 mmHg (75-108) Arterial Blood HCO3 29 mmol/L (21-28) Arterial Blood Base Excess 4 mmol/L (-3-3) FiO2 100% vent Assessment and Plan Assessmemt and Plan Problems Medical Problems: (1) Acute respiratory failure with hypoxia Status: Acute (2) PRIYA (acute kidney injury) Status: Acute (3) Elevated troponin I level Status: Acute (4) Pulmonary emboli Status: Acute (5) Suspected COVID-19 virus infection Status: Acute Comment Review of Relevant I have reviewed the following items trino (where applicable) has been applied. Justifications for Admission Other Justification DOROTHEA VIRK MD Jul 09, 2020 11:52
[2020-07-09] MEDS: REMDESIVIR 100mg in NORMAL SALINE 250ML X 4 DAYS IV SCH (13:54)
--- NOTE | 2020-07-09 15:24 | NUR ---
SS following up with discharge planning. SS reviewed pt chart and discussed with pt RN. Pt remains on the vent at this time at 90%. COVID19 positive. Pt on Remdesivir and IV Zosyn. Not stable. SS will continue to follow for discharge planning.
[2020-07-10] VITALS (24 sets, daily range): BP systolic 106–127; BP diastolic 60–78
[2020-07-10] MEDS: ASCORBIC ACID 500 MG TABLET PO SCH ×4 (00:45→17:28)
[2020-07-10] MEDS: PIPERACILLIN/TAZOBACTAM 3.375 GM in IV NORMAL SALINE 50ML 50 ML IV SCH ×4 (00:46→17:28)
[2020-07-10] MEDS: INSULIN LISPRO 300 UNITS/3 ML VIAL. SQ SCH ×4 (00:47→17:30)
[2020-07-10 06:57] LABS: CALCIUM 7.6 mg/dL (8.5-10.1); CREATININE 0.8 mg/dL (0.7-1.3); GFR 102.3
[2020-07-10] MEDS: methylPREDNISolone SOD SUCC PF 40 MG/ML VIAL. IV SCH ×3 (06:58→21:45)
[2020-07-10 07:02] LABS: MAGNESIUM 2.3 mg/dL (1.8-2.4)
[2020-07-10 07:14] LABS: BASO % 0 % (0-3); EOS % 0 % (0-3); HEMATOCRIT 34.9 % (39.0-53.0); HEMOGLOBIN 11.5 g/dL (13.0-17.5); LYMPH # 0.4 x10^3/uL (1.0-4.8); LYMPH % 3 % (24-48); MEAN CORPUSCULAR HEMOGLOBIN 33 pg (25-35); MEAN CORPUSCULAR HGB CONC 33 g/dL (31-37); MEAN CORPUSCULAR VOLUME 100 fL (79-100); MONO # 0.7 x10^3/uL (0.0-1.1); MONO % 5 % (0-9); NEUT # 11.9 x10^3/uL (1.8-7.7); NEUT % 91 % (31-73); PLATELET COUNT 195 x10^3/uL (140-400); RED CELL DISTRIBUTION WIDTH 13.2 % (11.5-14.5)
[2020-07-10] MEDS: MIDAZOLAM 100mg/100ml NS BAG 100 ML IV PRN ×2 (07:23→16:32)
--- NOTE | 2020-07-10 07:39 | PDOC ---
Infectious Disease Note Subjective Subjective Sedated intubated Vital Sign Vital Signs Vital Signs Date Time Temp Pulse Resp B/P (MAP) Pulse Ox O2 Delivery O2 Flow Rate FiO2 07/10/20 07:00 82 22 121/72 (88) 97 Ventilator 07/10/20 04:00 97.3 97.3 07/10/20 04:00 15.0 Physical Exam PHYSICAL EXAM GENERAL: Sedated, orally intubated gentleman, not in any distress. VITAL SIGNS: Stable HEENT: Both pupils are round and reacting. No conjunctival lesion. Mouth cannot be visualized as orally intubated. NECK: Supple. No JVP, no lymphadenopathy. LUNGS: Clear. Decreased breath sounds. HEART: S1, S2 regular. No gallop or murmur. ABDOMEN: Soft, nontender. No organomegaly. EXTREMITIES: No edema or cyanosis. SKIN: Unremarkable. 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 Labs Lab Laboratory Tests Test 07/09/20 08:00 07/09/20 15:00 07/09/20 22:50 07/10/20 06:13 O2 Saturation 98 % (92-99) Arterial Blood pH 7.43 (7.35-7.45) Arterial Blood pCO2 at Patient Temp 45 mmHg (35-46) Arterial Blood pO2 at Patient Temp 109 mmHg (75-108) Arterial Blood HCO3 29 mmol/L (21-28) Arterial Blood Base Excess 4 mmol/L (-3-3) FiO2 100% vent Heparin Anti-Xa Act, Unfractionated 0.88 IU/mL (0.30-0.70) 0.48 IU/mL (0.30-0.70) 0.70 IU/mL (0.30-0.70) Test 07/10/20 06:15 07/10/20 06:35 White Blood Count 13.0 x10^3/uL (4.0-11.0) Red Blood Count 3.50 x10^6/uL (4.30-5.70) Hemoglobin 11.5 g/dL (13.0-17.5) Hematocrit 34.9 % (39.0-53.0) Mean Corpuscular Volume 100 fL (79-100) Mean Corpuscular Hemoglobin 33 pg (25-35) Mean Corpuscular Hemoglobin Concent 33 g/dL (31-37) Red Cell Distribution Width 13.2 % (11.5-14.5) Platelet Count 195 x10^3/uL (140-400) Neutrophils (%) (Auto) 91 % (31-73) Lymphocytes (%) (Auto) 3 % (24-48) Monocytes (%) (Auto) 5 % (0-9) Eosinophils (%) (Auto) 0 % (0-3) Basophils (%) (Auto) 0 % (0-3) Neutrophils # (Auto) 11.9 x10^3/uL (1.8-7.7) Lymphocytes # (Auto) 0.4 x10^3/uL (1.0-4.8) Monocytes # (Auto) 0.7 x10^3/uL (0.0-1.1) Eosinophils # (Auto) 0.0 x10^3/uL (0.0-0.7) Basophils # (Auto) 0.0 x10^3/uL (0.0-0.2) Sodium Level 133 mmol/L (136-145) Potassium Level 5.0 mmol/L (3.5-5.1) Chloride Level 101 mmol/L (98-107) Carbon Dioxide Level 31 mmol/L (21-32) Anion Gap 1 (6-14) Blood Urea Nitrogen 23 mg/dL (8-26) Creatinine 0.8 mg/dL (0.7-1.3) Estimated GFR (Cockcroft-Gault) 102.3 Glucose Level 273 mg/dL (70-99) Calcium Level 7.6 mg/dL (8.5-10.1) Magnesium Level 2.3 mg/dL (1.8-2.4) Creatine Kinase 122 U/L (39-308) Glucose (Fingerstick) 246 mg/dL (70-99) Micro Microbiology 07/03/20 Blood Culture - Final, Complete NO GROWTH AFTER 5 DAYS Objective Assessment IMPRESSION: 1. COVID-19 positive. 2. Respiratory failure. 3. Bilateral pulmonary emboli. 4. Hypertension. 5. Leukocytosis. Plan Plan of Care Continue supportive care Steroids Remdesivir MONALISA Ibanez MD Jul 10, 2020 07:39
[2020-07-10] MEDS: CHOLECALCIFEROL (VITAMIN D3) 5,000 UNIT CAPSULE PO SCH (07:55)
[2020-07-10] MEDS: ZINC SULFATE 220 MG CAPSULE. PO SCH (07:55)
[2020-07-10] MEDS: PANTOPRAZOLE IV PUSH 40 MG VIAL. IVP SCH (07:55)
--- NOTE | 2020-07-10 08:18 | RAD ---
CHEST AP ONLY INDICATION: vent/ resp. failure COMPARISON STUDY: 07/05/2020. FINDINGS: Life Support Devices: Stable endotracheal tube and enteric tube. Right PICC with tip overlying the superior cavoatrial junction. Lungs: Normal lung volume. Stable bilateral perihilar and basilar heterogeneous opacities. Pleura: No pleural effusion or pneumothorax. Heart and Mediastinum: Stable cardiomediastinal silhouette and great vessels. Bones and Soft Tissues: Stable regional skeleton and soft tissues. IMPRESSION: 1. Stable bilateral perihilar and basilar opacities. 2. Life support devices as above. Electronically signed by: Chase Bradshaw MD (07/10/2020 8:16 AM) [id number]
--- NOTE | 2020-07-10 08:21 | PDOC ---
PULMONARY PROGRESS NOTES DATE: 07/10/20 TIME: 08:21 Subjective Remains on mechanical ventilation, on 90% and PEEP of 10 afebrile No other concerns from nursing Vitals Vital Signs Date Time Temp Pulse Resp B/P (MAP) Pulse Ox O2 Delivery O2 Flow Rate FiO2 07/10/20 07:41 Mechanical Ventilator 07/10/20 07:00 82 22 121/72 (88) 97 07/10/20 04:00 97.3 97.3 07/10/20 04:00 15.0 Comments Patient seen during pandemic visual exam performed Intubated/sedated no Accessory muscle use No obvious rash or edema Lungs: Other Labs Laboratory Tests Test 07/08/20 16:00 07/08/20 17:34 07/08/20 22:20 07/09/20 00:28 Heparin Anti-Xa Act, Unfractionated 0.62 IU/mL (0.30-0.70) 0.85 IU/mL (0.30-0.70) Glucose (Fingerstick) 244 mg/dL (70-99) 233 mg/dL (70-99) Test 07/09/20 06:00 07/09/20 06:10 07/09/20 08:00 07/09/20 15:00 White Blood Count 12.3 x10^3/uL (4.0-11.0) Red Blood Count 3.49 x10^6/uL (4.30-5.70) Hemoglobin 11.5 g/dL (13.0-17.5) Hematocrit 34.8 % (39.0-53.0) Mean Corpuscular Volume 100 fL (79-100) Mean Corpuscular Hemoglobin 33 pg (25-35) Mean Corpuscular Hemoglobin Concent 33 g/dL (31-37) Red Cell Distribution Width 13.3 % (11.5-14.5) Platelet Count 191 x10^3/uL (140-400) Neutrophils (%) (Auto) 91 % (31-73) Lymphocytes (%) (Auto) 4 % (24-48) Monocytes (%) (Auto) 5 % (0-9) Eosinophils (%) (Auto) 0 % (0-3) Basophils (%) (Auto) 0 % (0-3) Neutrophils # (Auto) 11.2 x10^3/uL (1.8-7.7) Lymphocytes # (Auto) 0.4 x10^3/uL (1.0-4.8) Monocytes # (Auto) 0.7 x10^3/uL (0.0-1.1) Eosinophils # (Auto) 0.0 x10^3/uL (0.0-0.7) Basophils # (Auto) 0.0 x10^3/uL (0.0-0.2) Heparin Anti-Xa Act, Unfractionated < 0.10 IU/mL (0.30-0.70) 0.88 IU/mL (0.30-0.70) Sodium Level 136 mmol/L (136-145) Potassium Level 5.0 mmol/L (3.5-5.1) Chloride Level 103 mmol/L (98-107) Carbon Dioxide Level 32 mmol/L (21-32) Anion Gap 1 (6-14) Blood Urea Nitrogen 25 mg/dL (8-26) Creatinine 0.8 mg/dL (0.7-1.3) Estimated GFR (Cockcroft-Gault) 102.3 Glucose Level 231 mg/dL (70-99) Calcium Level 7.5 mg/dL (8.5-10.1) Glucose (Fingerstick) 224 mg/dL (70-99) O2 Saturation 98 % (92-99) Arterial Blood pH 7.43 (7.35-7.45) Arterial Blood pCO2 at Patient Temp 45 mmHg (35-46) Arterial Blood pO2 at Patient Temp 109 mmHg (75-108) Arterial Blood HCO3 29 mmol/L (21-28) Arterial Blood Base Excess 4 mmol/L (-3-3) FiO2 100% vent Test 07/09/20 22:50 07/10/20 06:13 07/10/20 06:15 07/10/20 06:35 Heparin Anti-Xa Act, Unfractionated 0.48 IU/mL (0.30-0.70) 0.70 IU/mL (0.30-0.70) White Blood Count 13.0 x10^3/uL (4.0-11.0) Red Blood Count 3.50 x10^6/uL (4.30-5.70) Hemoglobin 11.5 g/dL (13.0-17.5) Hematocrit 34.9 % (39.0-53.0) Mean Corpuscular Volume 100 fL (79-100) Mean Corpuscular Hemoglobin 33 pg (25-35) Mean Corpuscular Hemoglobin Concent 33 g/dL (31-37) Red Cell Distribution Width 13.2 % (11.5-14.5) Platelet Count 195 x10^3/uL (140-400) Neutrophils (%) (Auto) 91 % (31-73) Lymphocytes (%) (Auto) 3 % (24-48) Monocytes (%) (Auto) 5 % (0-9) Eosinophils (%) (Auto) 0 % (0-3) Basophils (%) (Auto) 0 % (0-3) Neutrophils # (Auto) 11.9 x10^3/uL (1.8-7.7) Lymphocytes # (Auto) 0.4 x10^3/uL (1.0-4.8) Monocytes # (Auto) 0.7 x10^3/uL (0.0-1.1) Eosinophils # (Auto) 0.0 x10^3/uL (0.0-0.7) Basophils # (Auto) 0.0 x10^3/uL (0.0-0.2) Sodium Level 133 mmol/L (136-145) Potassium Level 5.0 mmol/L (3.5-5.1) Chloride Level 101 mmol/L (98-107) Carbon Dioxide Level 31 mmol/L (21-32) Anion Gap 1 (6-14) Blood Urea Nitrogen 23 mg/dL (8-26) Creatinine 0.8 mg/dL (0.7-1.3) Estimated GFR (Cockcroft-Gault) 102.3 Glucose Level 273 mg/dL (70-99) Calcium Level 7.6 mg/dL (8.5-10.1) Magnesium Level 2.3 mg/dL (1.8-2.4) Creatine Kinase 122 U/L (39-308) Glucose (Fingerstick) 246 mg/dL (70-99) Laboratory Tests Test 07/09/20 15:00 07/09/20 22:50 07/10/20 06:13 07/10/20 06:15 Heparin Anti-Xa Act, Unfractionated 0.88 IU/mL (0.30-0.70) 0.48 IU/mL (0.30-0.70) 0.70 IU/mL (0.30-0.70) White Blood Count 13.0 x10^3/uL (4.0-11.0) Red Blood Count 3.50 x10^6/uL (4.30-5.70) Hemoglobin 11.5 g/dL (13.0-17.5) Hematocrit 34.9 % (39.0-53.0) Mean Corpuscular Volume 100 fL (79-100) Mean Corpuscular Hemoglobin 33 pg (25-35) Mean Corpuscular Hemoglobin Concent 33 g/dL (31-37) Red Cell Distribution Width 13.2 % (11.5-14.5) Platelet Count 195 x10^3/uL (140-400) Neutrophils (%) (Auto) 91 % (31-73) Lymphocytes (%) (Auto) 3 % (24-48) Monocytes (%) (Auto) 5 % (0-9) Eosinophils (%) (Auto) 0 % (0-3) Basophils (%) (Auto) 0 % (0-3) Neutrophils # (Auto) 11.9 x10^3/uL (1.8-7.7) Lymphocytes # (Auto) 0.4 x10^3/uL (1.0-4.8) Monocytes # (Auto) 0.7 x10^3/uL (0.0-1.1) Eosinophils # (Auto) 0.0 x10^3/uL (0.0-0.7) Basophils # (Auto) 0.0 x10^3/uL (0.0-0.2) Sodium Level 133 mmol/L (136-145) Potassium Level 5.0 mmol/L (3.5-5.1) Chloride Level 101 mmol/L (98-107) Carbon Dioxide Level 31 mmol/L (21-32) Anion Gap 1 (6-14) Blood Urea Nitrogen 23 mg/dL (8-26) Creatinine 0.8 mg/dL (0.7-1.3) Estimated GFR (Cockcroft-Gault) 102.3 Glucose Level 273 mg/dL (70-99) Calcium Level 7.6 mg/dL (8.5-10.1) Magnesium Level 2.3 mg/dL (1.8-2.4) Creatine Kinase 122 U/L (39-308) Test 07/10/20 06:35 Glucose (Fingerstick) 246 mg/dL (70-99) Comments CXR 07/10 IMPRESSION: 1. Stable bilateral perihilar and basilar opacities. 2. Life support devices as above. Impression . IMPRESSION: 1. Acute hypoxemic respiratory failure. 2. Acute pulmonary embolism with cor pulmonale. 3. Possible COVID-19. 4[address] CT chest revealing ground glass opacities. 5. Hypertension. 6. History of bronchitis. 7. Elevated troponin. 8. Acute kidney injury. 9. Leukocytosis. 10. Covid-19 positive Plan . Continue current ventilatory support, currently on 90% and PEEP of 10, avoid increasing PEEP 2/2 risk of barotrauma Follow chest x-ray and ABG, will reduce Fi02 to 70 % Follow cardiology recommendations Antibiotics per ID--Zosyn,cont. full course of remdesivir Continue heparin drip for pulmonary embolism Continue IV steroids with Taper continue tube feeding for nutritional support DVT/GI prophylaxis, heparin drip/ Protonix Discussed with RN and RT Critical care time [phone] AM ALVIN RAMSEY MD Jul 10, 2020 08:21
[2020-07-10 09:16] LABS: BASE EXCESS ABG 2 mmol/L (-3-3); HCO3 ABG 26 mmol/L (21-28); PCO2 ABG 42 mmHg (35-46); PO2 ABG 113 mmHg (75-108); SAT O2 ABG 98 % (92-99)
[2020-07-10 09:34] LABS: FIO2 ABG 90/VENT
[2020-07-10] MEDS: fentaNYL HIGH DOSE PCA 55 ML IV PRN (12:12)
--- NOTE | 2020-07-10 12:20 | PDOC ---
[facility] [facility] PROGRESS NOTE Date of Service DOS: DATE: 07/10/20 TIME: 12:18 Chief Complaint Chief Complaint Acute hypoxic respiratory failure requiring intubation COVID-19 PUI Subsegmental bilateral PE Leukocytosis NSTEMI AKA Lactic acidosis Hyponatremia Plan: Appreciate pulmonology recommendationsContinue current ventilatory support, currently on 100% and PEEP of 10, avoid increasing PEEP 2/2 risk of barotrauma Follow chest x-ray and ABG, will reduce Fi02 to 70 % Consultations placed to cardiology Heparin infusion will address bilateral PEs and NSTEMI Solu-Medrol 40 mg every 8 hours Appreciate ID recommendationscontinue Remdesivir and empiric antibiotics IV fluids A total of 33 minutes of critical care time was spent in reviewing chart, labs, and images. Discussed with RN and SW. History of Present Illness History of Present Illness 07/10/2020 Patient seen and examined bedside in ICU. Patient is intubated and sedated. FiO2 90%, PEEP of 10, respiratory rate of 30. ABG: pH is 7.41, PCO2 42, PO2 113, HCO3 26. D-dimer trending downwards, but slightly elevated compared to yesterday. 07/09/2020 Patient seen and examined in the ICU. Intubated and sedated. Vent settings FiO2 90%, PEEP of 10, respiratory rate of 30. 07/05: Patient seen in ICU, still intubated and sedated. COVID-19 pending. Patient remains on heparin infusion. Discussed with RN, will try to have central line placed per anesthesia. 07/06: Patient seen in ICU. Still FiO2 100% on vent and sedated. COVID-19 positive. Continue heparin infusion, Zosyn, steroids. 07/07: Covid positive patient seen in ICU. On vent with FiO2 100%, PEEP 10. Continue remdesivir, steroids, Zosyn. Continue to monitor 07/08: Patient seen in Covid ICU. Still on vent with FiO2 100%, PEEP 10. Afebrile. No acute events overnight. Continue steroids, antibiotics, and remdesivir. Patient is 49-year-old male with past medical history of hypertension, who presents to the ED with complaints of worsening shortness of breath over the past 5 days. Associated sore throat, fatigue, and generalized weakness. Patient was reportedly tested for COVID-19 last Thursday, but he had negative test results. His symptoms acutely worsened yesterday. Upon arrival to the ER his oxygen saturation was 60% on room air. He was placed on BiPAP and admitted to the ICU. Patient was subsequently intubated due to worsening respiratory failure. Vitals/I&O Vitals/I&O: Vital Signs Date Time Temp Pulse Resp B/P (MAP) Pulse Ox O2 Delivery O2 Flow Rate FiO2 07/10/20 12:00 98.2 59 22 121/66 (84) 95 Ventilator 98.2 07/10/20 04:00 15.0 I & O 07/09/20 07/09/20 07/10/20 15:00 23:00 07:00 Intake Total 480 ml 1496 ml 200 ml Output Total 600 ml 375 ml 1550 ml Balance -120 ml 1121 ml -1350 ml Physical Exam Physical Exam: GENERAL: Sedated, orally intubated gentleman, not in any distress. VITAL SIGNS: Stable HEENT: Both pupils are round and reacting. No conjunctival lesion. Mouth cannot be visualized as orally intubated. NECK: Supple. No JVP, no lymphadenopathy. LUNGS: Clear. Decreased breath sounds. HEART: S1, S2 regular. No gallop or murmur. ABDOMEN: Soft, nontender. No organomegaly. EXTREMITIES: No edema or cyanosis. SKIN: Unremarkable. 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 General: Other (Sedated) Heart: Regular rate (SR/ST) Lungs: Other Abdomen: Other (Nondistended) Extremities: No clubbing, No cyanosis Skin: No rashes, No breakdown Labs Labs: Laboratory Tests Test 07/09/20 15:00 07/09/20 17:20 07/09/20 22:50 07/10/20 00:32 Heparin Anti-Xa Act, Unfractionated 0.88 IU/mL (0.30-0.70) 0.48 IU/mL (0.30-0.70) Glucose (Fingerstick) 221 mg/dL (70-99) 252 mg/dL (70-99) Test 07/10/20 06:13 07/10/20 06:15 07/10/20 06:35 07/10/20 08:00 Heparin Anti-Xa Act, Unfractionated 0.70 IU/mL (0.30-0.70) White Blood Count 13.0 x10^3/uL (4.0-11.0) Red Blood Count 3.50 x10^6/uL (4.30-5.70) Hemoglobin 11.5 g/dL (13.0-17.5) Hematocrit 34.9 % (39.0-53.0) Mean Corpuscular Volume 100 fL (79-100) Mean Corpuscular Hemoglobin 33 pg (25-35) Mean Corpuscular Hemoglobin Concent 33 g/dL (31-37) Red Cell Distribution Width 13.2 % (11.5-14.5) Platelet Count 195 x10^3/uL (140-400) Neutrophils (%) (Auto) 91 % (31-73) Lymphocytes (%) (Auto) 3 % (24-48) Monocytes (%) (Auto) 5 % (0-9) Eosinophils (%) (Auto) 0 % (0-3) Basophils (%) (Auto) 0 % (0-3) Neutrophils # (Auto) 11.9 x10^3/uL (1.8-7.7) Lymphocytes # (Auto) 0.4 x10^3/uL (1.0-4.8) Monocytes # (Auto) 0.7 x10^3/uL (0.0-1.1) Eosinophils # (Auto) 0.0 x10^3/uL (0.0-0.7) Basophils # (Auto) 0.0 x10^3/uL (0.0-0.2) Sodium Level 133 mmol/L (136-145) Potassium Level 5.0 mmol/L (3.5-5.1) Chloride Level 101 mmol/L (98-107) Carbon Dioxide Level 31 mmol/L (21-32) Anion Gap 1 (6-14) Blood Urea Nitrogen 23 mg/dL (8-26) Creatinine 0.8 mg/dL (0.7-1.3) Estimated GFR (Cockcroft-Gault) 102.3 Glucose Level 273 mg/dL (70-99) Calcium Level 7.6 mg/dL (8.5-10.1) Magnesium Level 2.3 mg/dL (1.8-2.4) Creatine Kinase 122 U/L (39-308) Glucose (Fingerstick) 246 mg/dL (70-99) O2 Saturation 98 % (92-99) Arterial Blood pH 7.41 (7.35-7.45) Arterial Blood pCO2 at Patient Temp 42 mmHg (35-46) Arterial Blood pO2 at Patient Temp 113 mmHg (75-108) Arterial Blood HCO3 26 mmol/L (21-28) Arterial Blood Base Excess 2 mmol/L (-3-3) FiO2 90/vent Assessment and Plan Assessmemt and Plan Problems Medical Problems: (1) Acute respiratory failure with hypoxia Status: Acute (2) PRIYA (acute kidney injury) Status: Acute (3) Elevated troponin I level Status: Acute (4) Pulmonary emboli Status: Acute (5) Suspected COVID-19 virus infection Status: Acute Comment Review of Relevant I have reviewed the following items trino (where applicable) has been applied. Justifications for Admission Other Justification DOROTHEA VIRK MD Jul 10, 2020 12:20
[2020-07-10] MEDS: HEPARIN 25,000UTS/250ML PREMIX 250 ML IV PRN (12:26)
[2020-07-10] MEDS: REMDESIVIR 100mg in NORMAL SALINE 250ML X 4 DAYS IV SCH (13:59)
--- NOTE | 2020-07-10 15:33 | NUR ---
Have reviewed and agree with documentation completed by multicultural internship and made changes as needed
[2020-07-10] MEDS: VECURONIUM BOLUS 10 MG VIAL. IV PRN (17:29)
--- NOTE | 2020-07-10 21:02 | RAD ---
AP chest x-ray HISTORY: Tracheal tube placement for mechanical ventilation. Respiratory failure. COMPARISON: Chest x-ray July 10, 2020. FINDINGS: Endotracheal tube to 5 cm above the omero. Nasogastric tube extends to the abdomen. Right PICC line tip atrial caval junction. Heart size stable. No pneumothorax. No pleural effusions. Heterogeneous pulmonary infiltrates again demonstrated with decreased consolidation of the left lateral lung base. IMPRESSION: Lines and tubes as described above. Pulmonary infiltrates again demonstrated, there may be decreased consolidation at the left lung base. Electronically signed by: Matt Ashby MD (07/10/2020 8:59 PM) [facility]
--- NOTE | 2020-07-10 21:27 | NUR ---
Patient experienced forceful coughing during 2000 assessment. After coughing, ETT placement was 20 at the lip. Original placement was 24 at the teeth. I consulted with the RT and she advanced the tube to 22 at the teeth. Both RT and I auscultated breath sounds and found them to be equal on both sides. CXR obtained and proper placement was confirmed. ETT placement is now 22 at the L teeth.
[2020-07-11] VITALS (25 sets, daily range): BP systolic 97–137; BP diastolic 61–88
[2020-07-11] MEDS: PIPERACILLIN/TAZOBACTAM 3.375 GM in IV NORMAL SALINE 50ML 50 ML IV SCH ×5 (00:48→23:54)
[2020-07-11] MEDS: INSULIN LISPRO 300 UNITS/3 ML VIAL. SQ SCH ×5 (00:49→17:00)
[2020-07-11] MEDS: ASCORBIC ACID 500 MG TABLET PO SCH ×4 (00:49→18:00)
[2020-07-11] MEDS: MIDAZOLAM 100mg/100ml NS BAG 100 ML IV PRN ×3 (02:23→19:30)
[2020-07-11] MEDS: VECURONIUM BOLUS 10 MG VIAL. IV PRN (04:53)
[2020-07-11] MEDS: methylPREDNISolone SOD SUCC PF 40 MG/ML VIAL. IV SCH (05:41)
[2020-07-11] MEDS: HEPARIN 25,000UTS/250ML PREMIX 250 ML IV PRN ×2 (06:02→23:56)
[2020-07-11 06:55] LABS: BASO % 0 % (0-3); EOS % 0 % (0-3); HEMATOCRIT 35.2 % (39.0-53.0); HEMOGLOBIN 11.7 g/dL (13.0-17.5); LYMPH # 0.5 x10^3/uL (1.0-4.8); LYMPH % 4 % (24-48); MEAN CORPUSCULAR HEMOGLOBIN 33 pg (25-35); MEAN CORPUSCULAR HGB CONC 33 g/dL (31-37); MEAN CORPUSCULAR VOLUME 99 fL (79-100); MONO # 0.7 x10^3/uL (0.0-1.1); MONO % 5 % (0-9); NEUT # 12.4 x10^3/uL (1.8-7.7); NEUT % 91 % (31-73); PLATELET COUNT 189 x10^3/uL (140-400); RED BLOOD COUNT 3.55 x10^6/uL (4.30-5.70); RED CELL DISTRIBUTION WIDTH 13.4 % (11.5-14.5); WHITE BLOOD COUNT 13.6 x10^3/uL (4.0-11.0)
[2020-07-11 07:03] LABS: CALCIUM 7.8 mg/dL (8.5-10.1); CREATININE 0.6 mg/dL (0.7-1.3); GFR 142.6; POTASSIUM 4.9 mmol/L (3.5-5.1)
--- NOTE | 2020-07-11 08:38 | PDOC ---
PULMONARY PROGRESS NOTES DATE: 07/11/20 TIME: 08:38 Subjective Remains on mechanical ventilation, on 75% and PEEP of 10 afebrile improved oxygenation No other concerns from nursing Vitals Vital Signs Date Time Temp Pulse Resp B/P (MAP) Pulse Ox O2 Delivery O2 Flow Rate FiO2 07/11/20 07:56 97 Ventilator 07/11/20 06:00 50 30 108/71 (83) 07/11/20 04:00 98.3 98.3 Comments Patient seen during pandemic visual exam performed Intubated/sedated no Accessory muscle use No obvious rash or edema Lungs: Other Labs Laboratory Tests Test 07/09/20 15:00 07/09/20 17:20 07/09/20 22:50 07/10/20 00:32 Heparin Anti-Xa Act, Unfractionated 0.88 IU/mL (0.30-0.70) 0.48 IU/mL (0.30-0.70) Glucose (Fingerstick) 221 mg/dL (70-99) 252 mg/dL (70-99) Test 07/10/20 06:13 07/10/20 06:15 07/10/20 06:35 07/10/20 08:00 Heparin Anti-Xa Act, Unfractionated 0.70 IU/mL (0.30-0.70) White Blood Count 13.0 x10^3/uL (4.0-11.0) Red Blood Count 3.50 x10^6/uL (4.30-5.70) Hemoglobin 11.5 g/dL (13.0-17.5) Hematocrit 34.9 % (39.0-53.0) Mean Corpuscular Volume 100 fL (79-100) Mean Corpuscular Hemoglobin 33 pg (25-35) Mean Corpuscular Hemoglobin Concent 33 g/dL (31-37) Red Cell Distribution Width 13.2 % (11.5-14.5) Platelet Count 195 x10^3/uL (140-400) Neutrophils (%) (Auto) 91 % (31-73) Lymphocytes (%) (Auto) 3 % (24-48) Monocytes (%) (Auto) 5 % (0-9) Eosinophils (%) (Auto) 0 % (0-3) Basophils (%) (Auto) 0 % (0-3) Neutrophils # (Auto) 11.9 x10^3/uL (1.8-7.7) Lymphocytes # (Auto) 0.4 x10^3/uL (1.0-4.8) Monocytes # (Auto) 0.7 x10^3/uL (0.0-1.1) Eosinophils # (Auto) 0.0 x10^3/uL (0.0-0.7) Basophils # (Auto) 0.0 x10^3/uL (0.0-0.2) Sodium Level 133 mmol/L (136-145) Potassium Level 5.0 mmol/L (3.5-5.1) Chloride Level 101 mmol/L (98-107) Carbon Dioxide Level 31 mmol/L (21-32) Anion Gap 1 (6-14) Blood Urea Nitrogen 23 mg/dL (8-26) Creatinine 0.8 mg/dL (0.7-1.3) Estimated GFR (Cockcroft-Gault) 102.3 Glucose Level 273 mg/dL (70-99) Calcium Level 7.6 mg/dL (8.5-10.1) Magnesium Level 2.3 mg/dL (1.8-2.4) Creatine Kinase 122 U/L (39-308) Glucose (Fingerstick) 246 mg/dL (70-99) O2 Saturation 98 % (92-99) Arterial Blood pH 7.41 (7.35-7.45) Arterial Blood pCO2 at Patient Temp 42 mmHg (35-46) Arterial Blood pO2 at Patient Temp 113 mmHg (75-108) Arterial Blood HCO3 26 mmol/L (21-28) Arterial Blood Base Excess 2 mmol/L (-3-3) FiO2 90/vent Test 07/11/20 00:46 07/11/20 05:38 07/11/20 06:00 07/11/20 07:10 Glucose (Fingerstick) 234 mg/dL (70-99) 279 mg/dL (70-99) White Blood Count 13.6 x10^3/uL (4.0-11.0) Red Blood Count 3.55 x10^6/uL (4.30-5.70) Hemoglobin 11.7 g/dL (13.0-17.5) Hematocrit 35.2 % (39.0-53.0) Mean Corpuscular Volume 99 fL (79-100) Mean Corpuscular Hemoglobin 33 pg (25-35) Mean Corpuscular Hemoglobin Concent 33 g/dL (31-37) Red Cell Distribution Width 13.4 % (11.5-14.5) Platelet Count 189 x10^3/uL (140-400) Neutrophils (%) (Auto) 91 % (31-73) Lymphocytes (%) (Auto) 4 % (24-48) Monocytes (%) (Auto) 5 % (0-9) Eosinophils (%) (Auto) 0 % (0-3) Basophils (%) (Auto) 0 % (0-3) Neutrophils # (Auto) 12.4 x10^3/uL (1.8-7.7) Lymphocytes # (Auto) 0.5 x10^3/uL (1.0-4.8) Monocytes # (Auto) 0.7 x10^3/uL (0.0-1.1) Eosinophils # (Auto) 0.0 x10^3/uL (0.0-0.7) Basophils # (Auto) 0.0 x10^3/uL (0.0-0.2) Sodium Level 130 mmol/L (136-145) Potassium Level 4.9 mmol/L (3.5-5.1) Chloride Level 97 mmol/L (98-107) Carbon Dioxide Level 32 mmol/L (21-32) Anion Gap 1 (6-14) Blood Urea Nitrogen 23 mg/dL (8-26) Creatinine 0.6 mg/dL (0.7-1.3) Estimated GFR (Cockcroft-Gault) 142.6 Glucose Level 259 mg/dL (70-99) Calcium Level 7.8 mg/dL (8.5-10.1) Heparin Anti-Xa Act, Unfractionated > 1.10 IU/mL (0.30-0.70) Laboratory Tests Test 07/11/20 00:46 07/11/20 05:38 07/11/20 06:00 07/11/20 07:10 Glucose (Fingerstick) 234 mg/dL (70-99) 279 mg/dL (70-99) White Blood Count 13.6 x10^3/uL (4.0-11.0) Red Blood Count 3.55 x10^6/uL (4.30-5.70) Hemoglobin 11.7 g/dL (13.0-17.5) Hematocrit 35.2 % (39.0-53.0) Mean Corpuscular Volume 99 fL (79-100) Mean Corpuscular Hemoglobin 33 pg (25-35) Mean Corpuscular Hemoglobin Concent 33 g/dL (31-37) Red Cell Distribution Width 13.4 % (11.5-14.5) Platelet Count 189 x10^3/uL (140-400) Neutrophils (%) (Auto) 91 % (31-73) Lymphocytes (%) (Auto) 4 % (24-48) Monocytes (%) (Auto) 5 % (0-9) Eosinophils (%) (Auto) 0 % (0-3) Basophils (%) (Auto) 0 % (0-3) Neutrophils # (Auto) 12.4 x10^3/uL (1.8-7.7) Lymphocytes # (Auto) 0.5 x10^3/uL (1.0-4.8) Monocytes # (Auto) 0.7 x10^3/uL (0.0-1.1) Eosinophils # (Auto) 0.0 x10^3/uL (0.0-0.7) Basophils # (Auto) 0.0 x10^3/uL (0.0-0.2) Sodium Level 130 mmol/L (136-145) Potassium Level 4.9 mmol/L (3.5-5.1) Chloride Level 97 mmol/L (98-107) Carbon Dioxide Level 32 mmol/L (21-32) Anion Gap 1 (6-14) Blood Urea Nitrogen 23 mg/dL (8-26) Creatinine 0.6 mg/dL (0.7-1.3) Estimated GFR (Cockcroft-Gault) 142.6 Glucose Level 259 mg/dL (70-99) Calcium Level 7.8 mg/dL (8.5-10.1) Heparin Anti-Xa Act, Unfractionated > 1.10 IU/mL (0.30-0.70) Comments CXR 07/10 IMPRESSION: 1. Stable bilateral perihilar and basilar opacities. 2. Life support devices as above. Impression . IMPRESSION: 1. Acute hypoxemic respiratory failure. 2. Acute pulmonary embolism with cor pulmonale. 3. Possible COVID-[address]. [address] chest revealing ground glass opacities. 5. Hypertension. 6. History of bronchitis. 7. Elevated troponin. 8. Acute kidney injury. 9. Leukocytosis. 10. Covid-19 positive Plan . Continue current ventilatory support, currently on 75% and PEEP of 10, avoid increasing PEEP 2/2 risk of barotrauma Follow chest x-ray and ABG, will reduce Fi02 to 60 % and PEEP of 8 Follow cardiology recommendations Antibiotics per ID--Zosyn,cont. full course of remdesivir Continue heparin drip for pulmonary embolism Continue IV steroids with Taper, on daily dosing now continue tube feeding for nutritional support DVT/GI prophylaxis, heparin drip/ Protonix Discussed with RN and RT Critical care time [id number] AM ALVIN RAMSEY MD Jul 11, 2020 08:38
--- NOTE | 2020-07-11 08:47 | PDOC ---
Infectious Disease Note Subjective Subjective Sedated intubated ROS ROS Unable to do Vital Sign Vital Signs Vital Signs Date Time Temp Pulse Resp B/P (MAP) Pulse Ox O2 Delivery O2 Flow Rate FiO2 07/11/20 07:56 97 Ventilator 07/11/20 06:00 50 30 108/71 (83) 07/11/20 04:00 98.3 98.3 Physical Exam PHYSICAL EXAM GENERAL: Sedated, orally intubated gentleman, not in any distress. VITAL SIGNS: Stable HEENT: Both pupils are round and reacting. No conjunctival lesion. Mouth cannot be visualized as orally intubated. NECK: Supple. No JVP, no lymphadenopathy. LUNGS: Clear. Decreased breath sounds. HEART: S1, S2 regular. No gallop or murmur. ABDOMEN: Soft, nontender. No organomegaly. EXTREMITIES: No edema or cyanosis. SKIN: Unremarkable. 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 Labs Lab Laboratory Tests Test 07/11/20 00:46 07/11/20 05:38 07/11/20 06:00 07/11/20 07:10 Glucose (Fingerstick) 234 mg/dL (70-99) 279 mg/dL (70-99) White Blood Count 13.6 x10^3/uL (4.0-11.0) Red Blood Count 3.55 x10^6/uL (4.30-5.70) Hemoglobin 11.7 g/dL (13.0-17.5) Hematocrit 35.2 % (39.0-53.0) Mean Corpuscular Volume 99 fL (79-100) Mean Corpuscular Hemoglobin 33 pg (25-35) Mean Corpuscular Hemoglobin Concent 33 g/dL (31-37) Red Cell Distribution Width 13.4 % (11.5-14.5) Platelet Count 189 x10^3/uL (140-400) Neutrophils (%) (Auto) 91 % (31-73) Lymphocytes (%) (Auto) 4 % (24-48) Monocytes (%) (Auto) 5 % (0-9) Eosinophils (%) (Auto) 0 % (0-3) Basophils (%) (Auto) 0 % (0-3) Neutrophils # (Auto) 12.4 x10^3/uL (1.8-7.7) Lymphocytes # (Auto) 0.5 x10^3/uL (1.0-4.8) Monocytes # (Auto) 0.7 x10^3/uL (0.0-1.1) Eosinophils # (Auto) 0.0 x10^3/uL (0.0-0.7) Basophils # (Auto) 0.0 x10^3/uL (0.0-0.2) Sodium Level 130 mmol/L (136-145) Potassium Level 4.9 mmol/L (3.5-5.1) Chloride Level 97 mmol/L (98-107) Carbon Dioxide Level 32 mmol/L (21-32) Anion Gap 1 (6-14) Blood Urea Nitrogen 23 mg/dL (8-26) Creatinine 0.6 mg/dL (0.7-1.3) Estimated GFR (Cockcroft-Gault) 142.6 Glucose Level 259 mg/dL (70-99) Calcium Level 7.8 mg/dL (8.5-10.1) Heparin Anti-Xa Act, Unfractionated > 1.10 IU/mL (0.30-0.70) Micro Microbiology 07/03/20 Blood Culture - Final, Complete NO GROWTH AFTER 5 DAYS Objective Assessment IMPRESSION: 1. COVID-19 positive. 2. Respiratory failure. 3. Bilateral pulmonary emboli. 4. Hypertension. 5. Leukocytosis. Plan Plan of Care Continue supportive care Steroids Remdesivir MONALISA Ibanez MD Jul 11, 2020 08:47
[2020-07-11] MEDS: ZINC SULFATE 220 MG CAPSULE. PO SCH (09:00)
[2020-07-11 09:04] LABS: BASE EXCESS ABG 1 mmol/L (-3-3); HCO3 ABG 26 mmol/L (21-28); PCO2 ABG 44 mmHg (35-46); PO2 ABG 135 mmHg (75-108); SAT O2 ABG 98 % (92-99)
[2020-07-11 09:23] LABS: FIO2 ABG 75
[2020-07-11] MEDS: CHOLECALCIFEROL (VITAMIN D3) 5,000 UNIT CAPSULE PO SCH (10:00)
[2020-07-11] MEDS: PANTOPRAZOLE IV PUSH 40 MG VIAL. IVP SCH (10:01)
--- NOTE | 2020-07-11 10:04 | PDOC ---
[employer] PROGRESS NOTE Date of Service DOS: DATE: 07/11/20 TIME: 10:02 Chief Complaint Chief Complaint Acute hypoxic respiratory failure requiring intubation COVID-19 PUI Subsegmental bilateral PE Leukocytosis NSTEMI AKA Lactic acidosis Hyponatremia Plan: Appreciate pulmonology recommendationsContinue current ventilatory support, currently on 100% and PEEP of 10, avoid increasing PEEP 2/2 risk of barotrauma Follow chest x-ray and ABG, will reduce Fi02 to 70 % Consultations placed to cardiology Heparin infusion will address bilateral PEs and NSTEMI Solu-Medrol 40 mg every 8 hours Appreciate ID recommendationscontinue Remdesivir and empiric antibiotics IV fluids A total of 33 minutes of critical care time was spent in reviewing chart, labs, and images. Discussed with RN and JAVIER. History of Present Illness History of Present Illness 07/11/2020 Patient seen and examined bedside in the ICU. Patient continues to be intubated and sedated. FiO2 75%, PEEP of 10. pH 7.40, PCO2 44, PO2 is 135, HCO3 26. Can likely decrease FiO2 due to improved oxygenation. +173 cc in the past 24 hours 07/10/2020 Patient seen and examined bedside in ICU. Patient is intubated and sedated. FiO2 90%, PEEP of 10, respiratory rate of 30. ABG: pH is 7.41, PCO2 42, PO2 113, HCO3 26. 07/09/2020 Patient seen and examined in the ICU. Intubated and sedated. Vent settings FiO2 90%, PEEP of 10, respiratory rate of 30. 07/05: Patient seen in ICU, still intubated and sedated. COVID-19 pending. Patient remains on heparin infusion. Discussed with RN, will try to have central line placed per anesthesia. 07/06: Patient seen in ICU. Still FiO2 100% on vent and sedated. COVID-19 positive. Continue heparin infusion, Zosyn, steroids. 07/07: Covid positive patient seen in ICU. On vent with FiO2 100%, PEEP 10. Continue remdesivir, steroids, Zosyn. Continue to monitor 07/08: Patient seen in Covid ICU. Still on vent with FiO2 100%, PEEP 10. Afebrile. No acute events overnight. Continue steroids, antibiotics, and remdesivir. Patient is 49-year-old male with past medical history of hypertension, who presents to the ED with complaints of worsening shortness of breath over the past 5 days. Associated sore throat, fatigue, and generalized weakness. Patient was reportedly tested for COVID-19 last Thursday, but he had negative test results. His symptoms acutely worsened yesterday. Upon arrival to the ER his oxygen saturation was 60% on room air. He was placed on BiPAP and admitted to the ICU. Patient was subsequently intubated due to worsening respiratory failure. Vitals/I&O Vitals/I&O: Vital Signs Date Time Temp Pulse Resp B/P (MAP) Pulse Ox O2 Delivery O2 Flow Rate FiO2 07/11/20 07:56 97 Ventilator 07/11/20 06:00 50 30 108/71 (83) 07/11/20 04:00 98.3 98.3 I & O 07/10/20 07/10/20 07/11/20 15:00 23:00 07:00 Intake Total 400 ml 622 ml 2011.6 ml Output Total 975 ml 1280 ml 605 ml Balance -575 ml -658 ml 1406.6 ml Physical Exam Physical Exam: GENERAL: Sedated, orally intubated gentleman, not in any distress. VITAL SIGNS: Stable HEENT: Both pupils are round and reacting. No conjunctival lesion. Mouth cannot be visualized as orally intubated. NECK: Supple. No JVP, no lymphadenopathy. LUNGS: Clear. Decreased breath sounds. HEART: S1, S2 regular. No gallop or murmur. ABDOMEN: Soft, nontender. No organomegaly. EXTREMITIES: No edema or cyanosis. SKIN: Unremarkable. 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 General: Other (Sedated) Heart: Regular rate (SR/ST) Lungs: Other Abdomen: Other (Nondistended) Extremities: No clubbing, No cyanosis Skin: No rashes, No breakdown Labs Labs: Laboratory Tests Test 07/11/20 00:46 07/11/20 05:38 07/11/20 06:00 07/11/20 07:10 Glucose (Fingerstick) 234 mg/dL (70-99) 279 mg/dL (70-99) White Blood Count 13.6 x10^3/uL (4.0-11.0) Red Blood Count 3.55 x10^6/uL (4.30-5.70) Hemoglobin 11.7 g/dL (13.0-17.5) Hematocrit 35.2 % (39.0-53.0) Mean Corpuscular Volume 99 fL (79-100) Mean Corpuscular Hemoglobin 33 pg (25-35) Mean Corpuscular Hemoglobin Concent 33 g/dL (31-37) Red Cell Distribution Width 13.4 % (11.5-14.5) Platelet Count 189 x10^3/uL (140-400) Neutrophils (%) (Auto) 91 % (31-73) Lymphocytes (%) (Auto) 4 % (24-48) Monocytes (%) (Auto) 5 % (0-9) Eosinophils (%) (Auto) 0 % (0-3) Basophils (%) (Auto) 0 % (0-3) Neutrophils # (Auto) 12.4 x10^3/uL (1.8-7.7) Lymphocytes # (Auto) 0.5 x10^3/uL (1.0-4.8) Monocytes # (Auto) 0.7 x10^3/uL (0.0-1.1) Eosinophils # (Auto) 0.0 x10^3/uL (0.0-0.7) Basophils # (Auto) 0.0 x10^3/uL (0.0-0.2) Sodium Level 130 mmol/L (136-145) Potassium Level 4.9 mmol/L (3.5-5.1) Chloride Level 97 mmol/L (98-107) Carbon Dioxide Level 32 mmol/L (21-32) Anion Gap 1 (6-14) Blood Urea Nitrogen 23 mg/dL (8-26) Creatinine 0.6 mg/dL (0.7-1.3) Estimated GFR (Cockcroft-Gault) 142.6 Glucose Level 259 mg/dL (70-99) Calcium Level 7.8 mg/dL (8.5-10.1) Heparin Anti-Xa Act, Unfractionated > 1.10 IU/mL (0.30-0.70) Test 07/11/20 08:00 O2 Saturation 98 % (92-99) Arterial Blood pH 7.40 (7.35-7.45) Arterial Blood pCO2 at Patient Temp 44 mmHg (35-46) Arterial Blood pO2 at Patient Temp 135 mmHg (75-108) Arterial Blood HCO3 26 mmol/L (21-28) Arterial Blood Base Excess 1 mmol/L (-3-3) FiO2 75 Assessment and Plan Assessmemt and Plan Problems Medical Problems: (1) Acute respiratory failure with hypoxia Status: Acute (2) PRIYA (acute kidney injury) Status: Acute (3) Elevated troponin I level Status: Acute (4) Pulmonary emboli Status: Acute (5) Suspected COVID-19 virus infection Status: Acute Comment Review of Relevant I have reviewed the following items trino (where applicable) has been applied. Justifications for Admission Other Justification DOROTHEA VIRK MD Jul 11, 2020 10:03
[2020-07-11] MEDS: fentaNYL HIGH DOSE PCA 55 ML IV PRN (12:09)
--- NOTE | 2020-07-11 15:43 | NUR ---
SS following up with discharge planning. SS reviewed pt chart and discussed with pt RN. Pt is currently on the vent at 65%. COVID19 positive. Pt on IV Zosyn and Heparin drip. Self pay. Not stable. SS will continue to follow for discharge planning. Addendum: 07/11/20 at 1555 by CLARK QUARLES SS SS contacted [employer] to follow up on self pay status. Pt is not a citizen and his spouse currently lives in [place]. [facility] has been unable to get Medicaid paperwork completed at this time. SS will continue to follow for discharge planning.
[2020-07-12] VITALS (21 sets, daily range): BP systolic 75–121; BP diastolic 51–98
[2020-07-12] MEDS: ASCORBIC ACID 500 MG TABLET PO SCH ×4 (00:01→16:58)
[2020-07-12] MEDS: MIDAZOLAM 100mg/100ml NS BAG 100 ML IV PRN ×3 (03:26→19:58)
[2020-07-12] MEDS: PIPERACILLIN/TAZOBACTAM 3.375 GM in IV NORMAL SALINE 50ML 50 ML IV SCH ×3 (06:00→17:15)
[2020-07-12 07:04] LABS: CALCIUM 7.9 mg/dL (8.5-10.1); CREATININE 0.7 mg/dL (0.7-1.3); GFR 119.4; POTASSIUM 4.3 mmol/L (3.5-5.1)
[2020-07-12 07:11] LABS: BASO % 0 % (0-3); EOS # 0.2 x10^3/uL (0.0-0.7); EOS % 1 % (0-3); HEMATOCRIT 34.9 % (39.0-53.0); HEMOGLOBIN 11.5 g/dL (13.0-17.5); LYMPH # 1.3 x10^3/uL (1.0-4.8); LYMPH % 10 % (24-48); MEAN CORPUSCULAR HEMOGLOBIN 33 pg (25-35); MEAN CORPUSCULAR HGB CONC 33 g/dL (31-37); MEAN CORPUSCULAR VOLUME 100 fL (79-100); MONO # 0.5 x10^3/uL (0.0-1.1); MONO % 4 % (0-9); NEUT # 10.4 x10^3/uL (1.8-7.7); NEUT % 85 % (31-73); PLATELET COUNT 192 x10^3/uL (140-400); RED CELL DISTRIBUTION WIDTH 13.1 % (11.5-14.5); WHITE BLOOD COUNT 12.3 x10^3/uL (4.0-11.0)
[2020-07-12] MEDS: INSULIN LISPRO 300 UNITS/3 ML VIAL. SQ SCH ×3 (08:00→16:58)
--- NOTE | 2020-07-12 08:44 | PDOC ---
Infectious Disease Note Subjective Subjective Sedated intubated ROS ROS Unable to do Vital Sign Vital Signs Vital Signs Date Time Temp Pulse Resp B/P (MAP) Pulse Ox O2 Delivery O2 Flow Rate FiO2 07/12/20 08:07 99.0 81 105/66 (79) 100 Ventilator 99.0 07/12/20 07:00 15.0 07/12/20 05:00 24 Physical Exam PHYSICAL EXAM GENERAL: Sedated, orally intubated gentleman, not in any distress. VITAL SIGNS: Stable HEENT: Both pupils are round and reacting. No conjunctival lesion. Mouth cannot be visualized as orally intubated. NECK: Supple. No JVP, no lymphadenopathy. LUNGS: Clear. Decreased breath sounds. HEART: S1, S2 regular. No gallop or murmur. ABDOMEN: Soft, nontender. No organomegaly. EXTREMITIES: No edema or cyanosis. SKIN: Unremarkable. NEUROLOGIC: The patient is not able to; the patient is currently sedated, so unable to medical staff services coordinator. Labs Lab Laboratory Tests Test 07/11/20 12:35 07/11/20 21:30 07/12/20 06:00 Heparin Anti-Xa Act, Unfractionated 0.44 IU/mL (0.30-0.70) 0.61 IU/mL (0.30-0.70) White Blood Count 12.3 x10^3/uL (4.0-11.0) Red Blood Count 3.50 x10^6/uL (4.30-5.70) Hemoglobin 11.5 g/dL (13.0-17.5) Hematocrit 34.9 % (39.0-53.0) Mean Corpuscular Volume 100 fL (79-100) Mean Corpuscular Hemoglobin 33 pg (25-35) Mean Corpuscular Hemoglobin Concent 33 g/dL (31-37) Red Cell Distribution Width 13.1 % (11.5-14.5) Platelet Count 192 x10^3/uL (140-400) Neutrophils (%) (Auto) 85 % (31-73) Lymphocytes (%) (Auto) 10 % (24-48) Monocytes (%) (Auto) 4 % (0-9) Eosinophils (%) (Auto) 1 % (0-3) Basophils (%) (Auto) 0 % (0-3) Neutrophils # (Auto) 10.4 x10^3/uL (1.8-7.7) Lymphocytes # (Auto) 1.3 x10^3/uL (1.0-4.8) Monocytes # (Auto) 0.5 x10^3/uL (0.0-1.1) Eosinophils # (Auto) 0.2 x10^3/uL (0.0-0.7) Basophils # (Auto) 0.0 x10^3/uL (0.0-0.2) Sodium Level 134 mmol/L (136-145) Potassium Level 4.3 mmol/L (3.5-5.1) Chloride Level 100 mmol/L (98-107) Carbon Dioxide Level 33 mmol/L (21-32) Anion Gap 1 (6-14) Blood Urea Nitrogen 20 mg/dL (8-26) Creatinine 0.7 mg/dL (0.7-1.3) Estimated GFR (Cockcroft-Gault) 119.4 Glucose Level 188 mg/dL (70-99) Calcium Level 7.9 mg/dL (8.5-10.1) Micro Microbiology 07/03/20 Blood Culture - Final, Complete NO GROWTH AFTER 5 DAYS Objective Assessment IMPRESSION: 1. COVID-19 positive. 2. Respiratory failure. 3. Bilateral pulmonary emboli. 4. Hypertension. 5. Leukocytosis. Plan Plan of Care Continue supportive care Steroids Remdesivir MONALISA Ibanez MD Jul 12, 2020 08:44
--- NOTE | 2020-07-12 08:50 | PDOC ---
PULMONARY PROGRESS NOTES DATE: 07/12/20 TIME: 08:50 Subjective Remains on mechanical ventilation, on 65% and PEEP of 8 fever overnight No other concerns from nursing Vitals Vital Signs Date Time Temp Pulse Resp B/P (MAP) Pulse Ox O2 Delivery O2 Flow Rate FiO2 07/12/20 08:07 99.0 81 105/66 (79) 100 Ventilator 99.0 07/12/20 07:00 15.0 07/12/20 05:00 24 Comments Patient seen during pandemic visual exam performed Intubated/sedated no Accessory muscle use No obvious rash or edema Lungs: Other Labs Laboratory Tests Test 07/11/20 00:46 07/11/20 05:38 07/11/20 06:00 07/11/20 07:10 Glucose (Fingerstick) 234 mg/dL (70-99) 279 mg/dL (70-99) White Blood Count 13.6 x10^3/uL (4.0-11.0) Red Blood Count 3.55 x10^6/uL (4.30-5.70) Hemoglobin 11.7 g/dL (13.0-17.5) Hematocrit 35.2 % (39.0-53.0) Mean Corpuscular Volume 99 fL (79-100) Mean Corpuscular Hemoglobin 33 pg (25-35) Mean Corpuscular Hemoglobin Concent 33 g/dL (31-37) Red Cell Distribution Width 13.4 % (11.5-14.5) Platelet Count 189 x10^3/uL (140-400) Neutrophils (%) (Auto) 91 % (31-73) Lymphocytes (%) (Auto) 4 % (24-48) Monocytes (%) (Auto) 5 % (0-9) Eosinophils (%) (Auto) 0 % (0-3) Basophils (%) (Auto) 0 % (0-3) Neutrophils # (Auto) 12.4 x10^3/uL (1.8-7.7) Lymphocytes # (Auto) 0.5 x10^3/uL (1.0-4.8) Monocytes # (Auto) 0.7 x10^3/uL (0.0-1.1) Eosinophils # (Auto) 0.0 x10^3/uL (0.0-0.7) Basophils # (Auto) 0.0 x10^3/uL (0.0-0.2) Sodium Level 130 mmol/L (136-145) Potassium Level 4.9 mmol/L (3.5-5.1) Chloride Level 97 mmol/L (98-107) Carbon Dioxide Level 32 mmol/L (21-32) Anion Gap 1 (6-14) Blood Urea Nitrogen 23 mg/dL (8-26) Creatinine 0.6 mg/dL (0.7-1.3) Estimated GFR (Cockcroft-Gault) 142.6 Glucose Level 259 mg/dL (70-99) Calcium Level 7.8 mg/dL (8.5-10.1) Heparin Anti-Xa Act, Unfractionated > 1.10 IU/mL (0.30-0.70) Test 07/11/20 08:00 07/11/20 12:35 07/11/20 21:30 07/12/20 06:00 O2 Saturation 98 % (92-99) Arterial Blood pH 7.40 (7.35-7.45) Arterial Blood pCO2 at Patient Temp 44 mmHg (35-46) Arterial Blood pO2 at Patient Temp 135 mmHg (75-108) Arterial Blood HCO3 26 mmol/L (21-28) Arterial Blood Base Excess 1 mmol/L (-3-3) FiO2 75 Heparin Anti-Xa Act, Unfractionated 0.44 IU/mL (0.30-0.70) 0.61 IU/mL (0.30-0.70) White Blood Count 12.3 x10^3/uL (4.0-11.0) Red Blood Count 3.50 x10^6/uL (4.30-5.70) Hemoglobin 11.5 g/dL (13.0-17.5) Hematocrit 34.9 % (39.0-53.0) Mean Corpuscular Volume 100 fL (79-100) Mean Corpuscular Hemoglobin 33 pg (25-35) Mean Corpuscular Hemoglobin Concent 33 g/dL (31-37) Red Cell Distribution Width 13.1 % (11.5-14.5) Platelet Count 192 x10^3/uL (140-400) Neutrophils (%) (Auto) 85 % (31-73) Lymphocytes (%) (Auto) 10 % (24-48) Monocytes (%) (Auto) 4 % (0-9) Eosinophils (%) (Auto) 1 % (0-3) Basophils (%) (Auto) 0 % (0-3) Neutrophils # (Auto) 10.4 x10^3/uL (1.8-7.7) Lymphocytes # (Auto) 1.3 x10^3/uL (1.0-4.8) Monocytes # (Auto) 0.5 x10^3/uL (0.0-1.1) Eosinophils # (Auto) 0.2 x10^3/uL (0.0-0.7) Basophils # (Auto) 0.0 x10^3/uL (0.0-0.2) Sodium Level 134 mmol/L (136-145) Potassium Level 4.3 mmol/L (3.5-5.1) Chloride Level 100 mmol/L (98-107) Carbon Dioxide Level 33 mmol/L (21-32) Anion Gap 1 (6-14) Blood Urea Nitrogen 20 mg/dL (8-26) Creatinine 0.7 mg/dL (0.7-1.3) Estimated GFR (Cockcroft-Gault) 119.4 Glucose Level 188 mg/dL (70-99) Calcium Level 7.9 mg/dL (8.5-10.1) Laboratory Tests Test 07/11/20 12:35 07/11/20 21:30 07/12/20 06:00 Heparin Anti-Xa Act, Unfractionated 0.44 IU/mL (0.30-0.70) 0.61 IU/mL (0.30-0.70) White Blood Count 12.3 x10^3/uL (4.0-11.0) Red Blood Count 3.50 x10^6/uL (4.30-5.70) Hemoglobin 11.5 g/dL (13.0-17.5) Hematocrit 34.9 % (39.0-53.0) Mean Corpuscular Volume 100 fL (79-100) Mean Corpuscular Hemoglobin 33 pg (25-35) Mean Corpuscular Hemoglobin Concent 33 g/dL (31-37) Red Cell Distribution Width 13.1 % (11.5-14.5) Platelet Count 192 x10^3/uL (140-400) Neutrophils (%) (Auto) 85 % (31-73) Lymphocytes (%) (Auto) 10 % (24-48) Monocytes (%) (Auto) 4 % (0-9) Eosinophils (%) (Auto) 1 % (0-3) Basophils (%) (Auto) 0 % (0-3) Neutrophils # (Auto) 10.4 x10^3/uL (1.8-7.7) Lymphocytes # (Auto) 1.3 x10^3/uL (1.0-4.8) Monocytes # (Auto) 0.5 x10^3/uL (0.0-1.1) Eosinophils # (Auto) 0.2 x10^3/uL (0.0-0.7) Basophils # (Auto) 0.0 x10^3/uL (0.0-0.2) Sodium Level 134 mmol/L (136-145) Potassium Level 4.3 mmol/L (3.5-5.1) Chloride Level 100 mmol/L (98-107) Carbon Dioxide Level 33 mmol/L (21-32) Anion Gap 1 (6-14) Blood Urea Nitrogen 20 mg/dL (8-26) Creatinine 0.7 mg/dL (0.7-1.3) Estimated GFR (Cockcroft-Gault) 119.4 Glucose Level 188 mg/dL (70-99) Calcium Level 7.9 mg/dL (8.5-10.1) Comments CXR 07/12 IMPRESSION: 1. Stable life support devices. 2. Stable bilateral perihilar and basilar opacities. Impression . IMPRESSION: 1. Acute hypoxemic respiratory failure. 2. Acute pulmonary embolism with cor pulmonale. 3. Possible COVID-[address]. [address] chest revealing ground glass opacities. 5. Hypertension. 6. History of bronchitis. 7. Elevated troponin. 8. Acute kidney injury. 9. Leukocytosis. 10. Covid-19 positive Plan . Continue current ventilatory support, currently on 65% and PEEP of 8, Follow chest x-ray and ABG, will reduce PEEP to 6 Follow cardiology recommendations Antibiotics per ID--Zosyn,cont. full course of remdesivir Continue heparin drip for pulmonary embolism Continue IV steroids with Taper, on daily dosing now continue tube feeding for nutritional support DVT/GI prophylaxis, heparin drip/ Protonix Discussed with RN and RT Critical care time [id number] AM ALVIN RAMSEY MD Jul 12, 2020 08:50
[2020-07-12 08:56] LABS: BASE EXCESS ABG 4 mmol/L (-3-3); HCO3 ABG 30 mmol/L (21-28); PCO2 ABG 48 mmHg (35-46); PO2 ABG 94 mmHg (75-108); SAT O2 ABG 97 % (92-99)
[2020-07-12] MEDS: CHOLECALCIFEROL (VITAMIN D3) 5,000 UNIT CAPSULE PO SCH (09:00)
[2020-07-12] MEDS: ZINC SULFATE 220 MG CAPSULE. PO SCH (09:00)
[2020-07-12] MEDS: methylPREDNISolone SOD SUCC PF 40 MG/ML VIAL. IV SCH (09:00)
[2020-07-12 09:29] LABS: FIO2 ABG 65%+8
--- NOTE | 2020-07-12 09:41 | RAD ---
CHEST AP ONLY INDICATION: vent/PE/resp. fail . COMPARISON STUDY: 07/10/2020. FINDINGS: Life Support Devices: Stable endotracheal tube, enteric tube, right PICC. Lungs: Low lung volume. Stable bilateral perihilar and basilar regions opacities. Pleura: No pleural effusion or pneumothorax. Heart and Mediastinum: Stable cardiomediastinal silhouette and great vessels. IMPRESSION: 1. Stable life support devices. 2. Stable bilateral perihilar and basilar opacities. Electronically signed by: Chase Bradshaw MD (07/12/2020 9:39 AM) [id number]
[2020-07-12] MEDS: fentaNYL HIGH DOSE PCA 55 ML IV PRN (10:52)
[2020-07-12] MEDS: PANTOPRAZOLE IV PUSH 40 MG VIAL. IVP SCH (10:52)
--- NOTE | 2020-07-12 11:02 | PDOC ---
[facility] PROGRESS NOTE Date of Service DOS: DATE: 07/12/20 TIME: 11:00 Chief Complaint Chief Complaint Acute hypoxic respiratory failure requiring intubation COVID-19 PUI Subsegmental bilateral PE Leukocytosis NSTEMI AKA Lactic acidosis Hyponatremia Plan: Appreciate pulmonology recommendationsContinue current ventilatory support, currently on 100% and PEEP of 10, avoid increasing PEEP 2/2 risk of barotrauma Follow chest x-ray and ABG, will reduce Fi02 to 70 % Consultations placed to cardiology Heparin infusion will address bilateral PEs and NSTEMI Solu-Medrol 40 mg every 8 hours Appreciate ID recommendationscontinue Remdesivir and empiric antibiotics IV fluids A total of 35 minutes of critical care time was spent in reviewing chart, labs, and images. Discussed with RN and SW. History of Present Illness History of Present Illness 07/12/2020 Patient seen and examined in the ICU. Sedated and intubated. FiO2 65, PEEP of 8 with improved oxygenation. pH 7.4, PCO2 48, PO2 94, HCO3 30. +500 cc fluid balance.> 50% time spent in patient chart, labs, and imaging review and in discussion with RN and SW 07/11/2020 Patient seen and examined bedside in the ICU. Patient continues to be intubated and sedated. FiO2 75%, PEEP of 10. pH 7.40, PCO2 44, PO2 is 135, HCO3 26. Can likely decrease FiO2 due to improved oxygenation. +173 cc in the past 24 hours 07/10/2020 Patient seen and examined bedside in ICU. Patient is intubated and sedated. FiO2 90%, PEEP of 10, respiratory rate of 30. ABG: pH is 7.41, PCO2 42, PO2 113, HCO3 26. 07/09/2020 Patient seen and examined in the ICU. Intubated and sedated. Vent settings FiO2 90%, PEEP of 10, respiratory rate of 30. 07/05: Patient seen in ICU, still intubated and sedated. COVID-19 pending. Patient remains on heparin infusion. Discussed with RN, will try to have central line placed per anesthesia. 07/06: Patient seen in ICU. Still FiO2 100% on vent and sedated. COVID-19 positive. Continue heparin infusion, Zosyn, steroids. 07/07: Covid positive patient seen in ICU. On vent with FiO2 100%, PEEP 10. Continue remdesivir, steroids, Zosyn. Continue to monitor 07/08: Patient seen in Covid ICU. Still on vent with FiO2 100%, PEEP 10. Afebrile. No acute events overnight. Continue steroids, antibiotics, and remdesivir. Patient is 49-year-old male with past medical history of hypertension, who presents to the ED with complaints of worsening shortness of breath over the past 5 days. Associated sore throat, fatigue, and generalized weakness. Patient was reportedly tested for COVID-19 last Thursday, but he had negative test results. His symptoms acutely worsened yesterday. Upon arrival to the ER his oxygen saturation was 60% on room air. He was placed on BiPAP and admitted to the ICU. Patient was subsequently intubated due to worsening respiratory failure. Vitals/I&O Vitals/I&O: Vital Signs Date Time Temp Pulse Resp B/P (MAP) Pulse Ox O2 Delivery O2 Flow Rate FiO2 07/12/20 10:52 99 15.0 07/12/20 10:29 84 108/69 (82) Ventilator 07/12/20 09:09 99.5 99.5 07/12/20 05:00 24 I & O 07/11/20 07/11/20 07/12/20 15:00 23:00 07:00 Intake Total 200 ml 1405 ml 815 ml Output Total 710 ml 900 ml 325 ml Balance -510 ml 505 ml 490 ml Physical Exam Physical Exam: GENERAL: Sedated, orally intubated gentleman, not in any distress. VITAL SIGNS: Stable HEENT: Both pupils are round and reacting. No conjunctival lesion. Mouth cannot be visualized as orally intubated. NECK: Supple. No JVP, no lymphadenopathy. LUNGS: Clear. Decreased breath sounds. HEART: S1, S2 regular. No gallop or murmur. ABDOMEN: Soft, nontender. No organomegaly. EXTREMITIES: No edema or cyanosis. SKIN: Unremarkable. NEUROLOGIC: The patient is not able to; the patient is currently sedated, so unable to opinion polls survey worker. General: Other (Sedated and intubated) Heart: Regular rate (SR/ST) Lungs: Other Abdomen: Other (Nondistended) Extremities: No clubbing, No cyanosis Skin: No rashes, No breakdown Labs Labs: Laboratory Tests Test 07/11/20 12:35 07/11/20 21:30 07/12/20 06:00 07/12/20 08:00 Heparin Anti-Xa Act, Unfractionated 0.44 IU/mL (0.30-0.70) 0.61 IU/mL (0.30-0.70) White Blood Count 12.3 x10^3/uL (4.0-11.0) Red Blood Count 3.50 x10^6/uL (4.30-5.70) Hemoglobin 11.5 g/dL (13.0-17.5) Hematocrit 34.9 % (39.0-53.0) Mean Corpuscular Volume 100 fL (79-100) Mean Corpuscular Hemoglobin 33 pg (25-35) Mean Corpuscular Hemoglobin Concent 33 g/dL (31-37) Red Cell Distribution Width 13.1 % (11.5-14.5) Platelet Count 192 x10^3/uL (140-400) Neutrophils (%) (Auto) 85 % (31-73) Lymphocytes (%) (Auto) 10 % (24-48) Monocytes (%) (Auto) 4 % (0-9) Eosinophils (%) (Auto) 1 % (0-3) Basophils (%) (Auto) 0 % (0-3) Neutrophils # (Auto) 10.4 x10^3/uL (1.8-7.7) Lymphocytes # (Auto) 1.3 x10^3/uL (1.0-4.8) Monocytes # (Auto) 0.5 x10^3/uL (0.0-1.1) Eosinophils # (Auto) 0.2 x10^3/uL (0.0-0.7) Basophils # (Auto) 0.0 x10^3/uL (0.0-0.2) Sodium Level 134 mmol/L (136-145) Potassium Level 4.3 mmol/L (3.5-5.1) Chloride Level 100 mmol/L (98-107) Carbon Dioxide Level 33 mmol/L (21-32) Anion Gap 1 (6-14) Blood Urea Nitrogen 20 mg/dL (8-26) Creatinine 0.7 mg/dL (0.7-1.3) Estimated GFR (Cockcroft-Gault) 119.4 Glucose Level 188 mg/dL (70-99) Calcium Level 7.9 mg/dL (8.5-10.1) O2 Saturation 97 % (92-99) Arterial Blood pH 7.40 (7.35-7.45) Arterial Blood pCO2 at Patient Temp 48 mmHg (35-46) Arterial Blood pO2 at Patient Temp 94 mmHg (75-108) Arterial Blood HCO3 30 mmol/L (21-28) Arterial Blood Base Excess 4 mmol/L (-3-3) FiO2 65%+8 Test 07/12/20 08:51 Heparin Anti-Xa Act, Unfractionated 0.31 IU/mL (0.30-0.70) Assessment and Plan Assessmemt and Plan Problems Medical Problems: (1) Acute respiratory failure with hypoxia Status: Acute (2) PRIYA (acute kidney injury) Status: Acute (3) Elevated troponin I level Status: Acute (4) Pulmonary emboli Status: Acute (5) Suspected COVID-19 virus infection Status: Acute Comment Review of Relevant I have reviewed the following items trino (where applicable) has been applied. Medications: Current Medications Medications (Trade) Dose Ordered Sig/Natalee Route PRN Reason Start Time Stop Time Status Last Admin Dose Admin Methylprednisolone Sodium Succinate (SOLU-Medrol 40MG VIAL) 40 mg DAILY IV 07/12/20 09:00 07/12/20 09:00 Justifications for Admission Other Justification DOROTHEA VIRK MD Jul 12, 2020 11:02
[2020-07-12] MEDS: PROPOFOL 100 ML IV PRN (11:34)
[2020-07-12 11:53] LABS: MAGNESIUM 2.2 mg/dL (1.8-2.4)
[2020-07-12] MEDS: VECURONIUM BOLUS 10 MG VIAL. IV PRN ×2 (12:11→13:03)
[2020-07-12] MEDS: ACETAMINOPHEN 650 MG/20.3 ML SOLUTION. PEG PRN (12:11)
[2020-07-12] MEDS: VECURONIUM BROMIDE 50 MG in TOTAL VOLUME 50 ML IV PRN ×2 (15:00→17:31)
--- NOTE | 2020-07-12 15:10 | RAD ---
EXAM: PORTABLE CHEST 1V INDICATION: Reason: high peep pressure / Spl. Instructions: / History: . TECHNIQUE: Single view COMPARISON: Chest x-ray of 07/12/2020 FINDINGS: Patient remains intubated with the ET tube terminating 4.6 cm above the omero. Enteric tube passes below the diaphragms. Right PICC line is present with the tip terminating near the cavoatrial junction. The heart size is normal. The great vessels appear unremarkable. There is no hilar or mediastinal mass. Lungs show improved lung volumes but persistent diffuse bilateral patchy airspace opacities. There is no pleural effusion or pneumothorax. There are no significant osseous abnormalities. IMPRESSION: Stable satisfactory endotracheal intubation with improved lung volumes but persistent bilateral patchy airspace opacities. Electronically signed by: Gosia Li MD (07/12/2020 3:07 PM) [id number]
--- NOTE | 2020-07-12 15:26 | NUR ---
SS following up with discharge planning. SS reviewed pt chart and discussed with pt RN. Pt is currently on the vent at 70%. COVID19 positive. Pt on IV Zosyn and Heparin drip. Self pay. Not stable. SS will continue to follow for discharge planning.
--- NOTE | 2020-07-12 15:32 | NUR ---
Patient extremely unstable today. On ventilator, sedated- but out of sync with peak pressures in 60s, and tidal volumes in 200s, despite multiple interventions by this RN and RT at bedside. 102 oral temp, tylenol given. Dr. Garay, pulmonoligist notified of pt changes- xray obtained, see results. Pt now on vecuronium drip, propofol, versed, and fentanyl drip for sedation/vent tolerance- with little improvement. Summer, pt notified via family's drill runner helper of pt status.
[2020-07-12] MEDS: HEPARIN 25,000UTS/250ML PREMIX 250 ML IV PRN (21:35)
[2020-07-13] VITALS (24 sets, daily range): BP systolic 83–126; BP diastolic 52–73
[2020-07-13] MEDS: PIPERACILLIN/TAZOBACTAM 3.375 GM in IV NORMAL SALINE 50ML 50 ML IV SCH ×4 (00:37→17:34)
[2020-07-13] MEDS: ASCORBIC ACID 500 MG TABLET PO SCH ×4 (00:37→17:35)
[2020-07-13] MEDS: VECURONIUM BROMIDE 50 MG in TOTAL VOLUME 50 ML IV PRN ×2 (05:57→20:06)
[2020-07-13] MEDS: MIDAZOLAM 100mg/100ml NS BAG 100 ML IV PRN ×2 (05:58→16:30)
--- NOTE | 2020-07-13 08:25 | PDOC ---
PULMONARY PROGRESS NOTES DATE: 07/13/20 TIME: 08:25 Subjective Patient experienced hemodynamic instability and ventilatory asynchrony with low tidal volumes was placed on a paralytic drip and change to pressure control Afebrile overnight No other concerns from nursing at this time Vitals Vital Signs Date Time Temp Pulse Resp B/P (MAP) Pulse Ox O2 Delivery O2 Flow Rate FiO2 07/13/20 06:00 88 30 98/63 (75) 96 Ventilator 07/13/20 04:00 98.5 98.5 07/12/20 11:22 15.0 Comments Patient seen during pandemic visual exam performed Intubated/sedated no Accessory muscle use No obvious rash or edema Lungs: Other (orally intubated, clear ) Labs Laboratory Tests Test 07/11/20 12:35 07/11/20 17:07 07/11/20 21:30 07/11/20 21:52 Heparin Anti-Xa Act, Unfractionated 0.44 IU/mL (0.30-0.70) 0.61 IU/mL (0.30-0.70) Glucose (Fingerstick) 262 mg/dL (70-99) 203 mg/dL (70-99) Test 07/12/20 06:00 07/12/20 08:00 07/12/20 08:51 07/12/20 11:20 White Blood Count 12.3 x10^3/uL (4.0-11.0) Red Blood Count 3.50 x10^6/uL (4.30-5.70) Hemoglobin 11.5 g/dL (13.0-17.5) Hematocrit 34.9 % (39.0-53.0) Mean Corpuscular Volume 100 fL (79-100) Mean Corpuscular Hemoglobin 33 pg (25-35) Mean Corpuscular Hemoglobin Concent 33 g/dL (31-37) Red Cell Distribution Width 13.1 % (11.5-14.5) Platelet Count 192 x10^3/uL (140-400) Neutrophils (%) (Auto) 85 % (31-73) Lymphocytes (%) (Auto) 10 % (24-48) Monocytes (%) (Auto) 4 % (0-9) Eosinophils (%) (Auto) 1 % (0-3) Basophils (%) (Auto) 0 % (0-3) Neutrophils # (Auto) 10.4 x10^3/uL (1.8-7.7) Lymphocytes # (Auto) 1.3 x10^3/uL (1.0-4.8) Monocytes # (Auto) 0.5 x10^3/uL (0.0-1.1) Eosinophils # (Auto) 0.2 x10^3/uL (0.0-0.7) Basophils # (Auto) 0.0 x10^3/uL (0.0-0.2) Sodium Level 134 mmol/L (136-145) Potassium Level 4.3 mmol/L (3.5-5.1) Chloride Level 100 mmol/L (98-107) Carbon Dioxide Level 33 mmol/L (21-32) Anion Gap 1 (6-14) Blood Urea Nitrogen 20 mg/dL (8-26) Creatinine 0.7 mg/dL (0.7-1.3) Estimated GFR (Cockcroft-Gault) 119.4 Glucose Level 188 mg/dL (70-99) Calcium Level 7.9 mg/dL (8.5-10.1) Magnesium Level 2.2 mg/dL (1.8-2.4) Creatine Kinase 71 U/L (39-308) O2 Saturation 97 % (92-99) Arterial Blood pH 7.40 (7.35-7.45) Arterial Blood pCO2 at Patient Temp 48 mmHg (35-46) Arterial Blood pO2 at Patient Temp 94 mmHg (75-108) Arterial Blood HCO3 30 mmol/L (21-28) Arterial Blood Base Excess 4 mmol/L (-3-3) FiO2 65%+8 Heparin Anti-Xa Act, Unfractionated 0.31 IU/mL (0.30-0.70) Glucose (Fingerstick) 155 mg/dL (70-99) Test 07/12/20 16:57 07/12/20 20:46 07/13/20 06:15 Glucose (Fingerstick) 149 mg/dL (70-99) 171 mg/dL (70-99) Heparin Anti-Xa Act, Unfractionated 0.53 IU/mL (0.30-0.70) Laboratory Tests Test 07/12/20 08:51 07/12/20 11:20 07/12/20 16:57 07/12/20 20:46 Heparin Anti-Xa Act, Unfractionated 0.31 IU/mL (0.30-0.70) Glucose (Fingerstick) 155 mg/dL (70-99) 149 mg/dL (70-99) 171 mg/dL (70-99) Test 07/13/20 06:15 Heparin Anti-Xa Act, Unfractionated 0.53 IU/mL (0.30-0.70) Comments CXR 07/12 IMPRESSION: 1. Stable life support devices. 2. Stable bilateral perihilar and basilar opacities. Impression . IMPRESSION: 1. Acute hypoxemic respiratory failure. 2. Acute pulmonary embolism with cor pulmonale. 3. Possible COVID-19. [address] chest revealing ground glass opacities. 5. Hypertension. 6. History of bronchitis. 7. Elevated troponin. 8. Acute kidney injury. 9. Leukocytosis. 10. Covid-19 positive Plan . Continue current ventilatory support, patient placed on pressure control with a pressure control of 38, will wean FiO2 as tolerated, now on 65% Follow chest x-ray and ABG, Continue adequate sedation, currently on vecuronium drip Follow cardiology recommendations Antibiotics per ID--Zosyn,cont. full course of remdesivir Continue heparin drip for pulmonary embolism Continue IV steroids with Taper, on daily dosing now continue tube feeding for nutritional support DVT/GI prophylaxis, heparin drip/ Protonix Discussed with RN and RT Critical care time [id number] AM ALVIN RAMSEY MD Jul 13, 2020 08:25
[2020-07-13] MEDS: CHOLECALCIFEROL (VITAMIN D3) 5,000 UNIT CAPSULE PO SCH ×2 (09:00→09:40)
[2020-07-13] MEDS: ZINC SULFATE 220 MG CAPSULE. PO SCH ×2 (09:00→09:40)
[2020-07-13 09:12] LABS: BASE EXCESS ABG 8 mmol/L (-3-3); HCO3 ABG 33 mmol/L (21-28); PCO2 ABG 49 mmHg (35-46); PO2 ABG 109 mmHg (75-108); SAT O2 ABG 98 % (92-99)
[2020-07-13] MEDS: PANTOPRAZOLE IV PUSH 40 MG VIAL. IVP SCH (09:39)
[2020-07-13] MEDS: methylPREDNISolone SOD SUCC PF 40 MG/ML VIAL. IV SCH (09:40)
--- NOTE | 2020-07-13 09:58 | NUR ---
Zinc and Vit D3 held this am; Pt in LIS and bowel rest.
[2020-07-13 10:04] LABS: FIO2 ABG 70% VENT
--- NOTE | 2020-07-13 10:53 | PDOC ---
[facility] PROGRESS NOTE Date of Service DOS: DATE: 07/13/20 TIME: 10:49 Chief Complaint Chief Complaint Acute hypoxic respiratory failure requiring intubation COVID-19 PUI Subsegmental bilateral PE Leukocytosis NSTEMI AKA Lactic acidosis Hyponatremia Plan: Appreciate pulmonology recommendationsContinue current ventilatory support, currently on 100% and PEEP of 10, avoid increasing PEEP 2/2 risk of barotrauma Follow chest x-ray and ABG, will reduce Fi02 to 70 % Consultations placed to cardiology Heparin infusion will address bilateral PEs and NSTEMI Solu-Medrol 40 mg every 8 hours Appreciate ID recommendationscontinue Remdesivir and empiric antibiotics IV fluids A total of 32 minutes of critical care time was spent in reviewing chart, labs, and images. Discussed with RN and JAVIER. History of Present Illness History of Present Illness 07/13/2020 No acute events overnight. Patient examined bedside sedated and intubated. FiO2 70% PEEP of 6. Improved ABGs.> 50% time spent in patient chart, labs, and imaging review and in discussion with RN and JAVIER 07/12/2020 Patient seen and examined in the ICU. Sedated and intubated. FiO2 65, PEEP of 8 with improved oxygenation. pH 7.4, PCO2 48, PO2 94, HCO3 30. +500 cc fluid balance.> 50% time spent in patient chart, labs, and imaging review and in discussion with RN and JAVIER 07/11/2020 Patient seen and examined bedside in the ICU. Patient continues to be intubated and sedated. FiO2 75%, PEEP of 10. pH 7.40, PCO2 44, PO2 is 135, HCO3 26. Can likely decrease FiO2 due to improved oxygenation. +173 cc in the past 24 hours 07/10/2020 Patient seen and examined bedside in ICU. Patient is intubated and sedated. FiO2 90%, PEEP of 10, respiratory rate of 30. ABG: pH is 7.41, PCO2 42, PO2 113, HCO3 26. 07/09/2020 Patient seen and examined in the ICU. Intubated and sedated. Vent settings FiO2 90%, PEEP of 10, respiratory rate of 30. 07/05: Patient seen in ICU, still intubated and sedated. COVID-19 pending. Patient remains on heparin infusion. Discussed with RN, will try to have ce ntral line placed per anesthesia. 07/06: Patient seen in ICU. Still FiO2 100% on vent and sedated. COVID-19 positive. Continue heparin infusion, Zosyn, steroids. 07/07: Covid positive patient seen in ICU. On vent with FiO2 100%, PEEP 10. Continue remdesivir, steroids, Zosyn. Continue to monitor 07/08: Patient seen in Covid ICU. Still on vent with FiO2 100%, PEEP 10. Afebrile. No acute events overnight. Continue steroids, antibiotics, and remdesivir. Patient is 49-year-old male with past medical history of hypertension, who presents to the ED with complaints of worsening shortness of breath over the past 5 days. Associated sore throat, fatigue, and generalized weakness. Patient was reportedly tested for COVID-19 last Thursday, but he had negative test results. His symptoms acutely worsened yesterday. Upon arrival to the ER his oxygen saturation was 60% on room air. He was placed on BiPAP and admitted to the ICU. Patient was subsequently intubated due to worsening respiratory failure. Vitals/I&O Vitals/I&O: Vital Signs Date Time Temp Pulse Resp B/P (MAP) Pulse Ox O2 Delivery O2 Flow Rate FiO2 07/13/20 06:00 88 30 98/63 (75) 96 Ventilator 07/13/20 04:00 98.5 98.5 07/12/20 11:22 15.0 I & O 07/12/20 07/12/20 07/13/20 15:00 23:00 07:00 Intake Total 200 ml 635 ml 787 ml Output Total 350 ml 525 ml 850 ml Balance -150 ml 110 ml -63 ml Physical Exam Physical Exam: GENERAL: Sedated, orally intubated gentleman, not in any distress. VITAL SIGNS: Stable HEENT: Both pupils are round and reacting. No conjunctival lesion. Mouth cannot be visualized as orally intubated. NECK: Supple. No JVP, no lymphadenopathy. LUNGS: Clear. Decreased breath sounds. HEART: S1, S2 regular. No gallop or murmur. ABDOMEN: Soft, nontender. No organomegaly. EXTREMITIES: No edema or cyanosis. SKIN: Unremarkable. 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 General: Other (Sedated and intubated) Heart: Regular rate (SR/ST) Lungs: Other (orally intubated, clear ) Abdomen: Other (Nondistended) Extremities: No clubbing, No cyanosis Skin: No rashes, No breakdown Labs Labs: Laboratory Tests Test 07/12/20 11:20 07/12/20 16:57 07/12/20 20:46 07/13/20 06:15 Glucose (Fingerstick) 155 mg/dL (70-99) 149 mg/dL (70-99) 171 mg/dL (70-99) Heparin Anti-Xa Act, Unfractionated 0.53 IU/mL (0.30-0.70) Test 07/13/20 08:00 O2 Saturation 98 % (92-99) Arterial Blood pH 7.45 (7.35-7.45) Arterial Blood pCO2 at Patient Temp 49 mmHg (35-46) Arterial Blood pO2 at Patient Temp 109 mmHg (75-108) Arterial Blood HCO3 33 mmol/L (21-28) Arterial Blood Base Excess 8 mmol/L (-3-3) FiO2 70% vent Assessment and Plan Assessmemt and Plan Problems Medical Problems: (1) Acute respiratory failure with hypoxia Status: Acute (2) PRIYA (acute kidney injury) Status: Acute (3) Elevated troponin I level Status: Acute (4) Pulmonary emboli Status: Acute (5) Suspected COVID-19 virus infection Status: Acute Comment Review of Relevant I have reviewed the following items trino (where applicable) has been applied. Medications: Current Medications Medications (Trade) Dose Ordered Sig/Natalee Route PRN Reason Start Time Stop Time Status Last Admin Dose Admin Acetaminophen (Tylenol) 650 mg PRN Q6HRS PRN PEG MILD PAIN / TEMP > 100.3'F 07/12/20 12:00 07/12/20 12:11 Vecuronium Swink 50 mg/ Miscellaneous 50 ml @ 4.094 mls/ hr CONT PRN IV SEE I/O RECORD 07/12/20 14:45 07/13/20 05:57 Justifications for Admission Other Justification DOROTHEA VIRK MD Jul 13, 2020 10:53
--- NOTE | 2020-07-13 11:12 | PDOC ---
Infectious Disease Note Subjective Subjective Sedated intubated ROS ROS No nausea vomiting diarrhea Vital Sign Vital Signs Vital Signs Date Time Temp Pulse Resp B/P (MAP) Pulse Ox O2 Delivery O2 Flow Rate FiO2 07/13/20 11:04 98 Ventilator 07/13/20 06:00 88 30 98/63 (75) 07/13/20 04:00 98.5 98.5 07/12/20 11:22 15.0 Physical Exam PHYSICAL EXAM GENERAL: Sedated, orally intubated gentleman, not in any distress. VITAL SIGNS: Stable HEENT: Both pupils are round and reacting. No conjunctival lesion. Mouth cannot be visualized as orally intubated. NECK: Supple. No JVP, no lymphadenopathy. LUNGS: Clear. Decreased breath sounds. HEART: S1, S2 regular. No gallop or murmur. ABDOMEN: Soft, nontender. No organomegaly. EXTREMITIES: No edema or cyanosis. SKIN: Unremarkable. NEUROLOGIC: The patient is not able to; the patient is currently sedated, so unable to can vacuum tester. Labs Lab Laboratory Tests Test 07/12/20 11:20 07/12/20 16:57 07/12/20 20:46 07/13/20 06:15 Glucose (Fingerstick) 155 mg/dL (70-99) 149 mg/dL (70-99) 171 mg/dL (70-99) Heparin Anti-Xa Act, Unfractionated 0.53 IU/mL (0.30-0.70) Test 07/13/20 08:00 O2 Saturation 98 % (92-99) Arterial Blood pH 7.45 (7.35-7.45) Arterial Blood pCO2 at Patient Temp 49 mmHg (35-46) Arterial Blood pO2 at Patient Temp 109 mmHg (75-108) Arterial Blood HCO3 33 mmol/L (21-28) Arterial Blood Base Excess 8 mmol/L (-3-3) FiO2 70% vent Micro Microbiology 07/03/20 Blood Culture - Final, Complete NO GROWTH AFTER 5 DAYS Objective Assessment IMPRESSION: 1. COVID-19 positive. 2. Respiratory failure. 3. Bilateral pulmonary emboli. 4. Hypertension. 5. Leukocytosis. Plan Plan of Care Continue supportive care Steroids Remdesivir MONALISA Ibanez MD Jul 13, 2020 11:12
--- NOTE | 2020-07-13 12:00 | NUR ---
Have reviewed and agree with documentation completed by communications intern and made changes as needed/appropriate.
[2020-07-13] MEDS: fentaNYL HIGH DOSE PCA 55 ML IV PRN (12:17)
[2020-07-13] MEDS: INSULIN LISPRO 300 UNITS/3 ML VIAL. SQ SCH ×2 (15:03→17:50)
--- NOTE | 2020-07-13 15:11 | NUR ---
SS following up with discharge planning. SS reviewed pt chart and discussed with pt RN. Pt is currently on the vent at 70%. Pt on IV Zosyn and Heparin drip. COVID19 positive. Not stable. SS will continue to follow for discharge planning.
[2020-07-13] MEDS: HEPARIN 25,000UTS/250ML PREMIX 250 ML IV PRN (16:24)
[2020-07-14] VITALS (24 sets, daily range): BP systolic 97–164; BP diastolic 60–88
[2020-07-14] MEDS: ASCORBIC ACID 500 MG TABLET PO SCH ×4 (00:36→17:08)
[2020-07-14] MEDS: PIPERACILLIN/TAZOBACTAM 3.375 GM in IV NORMAL SALINE 50ML 50 ML IV SCH ×4 (00:36→17:09)
[2020-07-14] MEDS: INSULIN LISPRO 300 UNITS/3 ML VIAL. SQ SCH ×4 (01:10→17:08)
[2020-07-14] MEDS: MIDAZOLAM 100mg/100ml NS BAG 100 ML IV PRN ×3 (02:22→20:54)
--- NOTE | 2020-07-14 05:58 | PDOC ---
PULMONARY PROGRESS NOTES DATE: 07/14/20 TIME: 05:56 Subjective on vent pressure control peep 6 fio2 65% on versed fentanyl vec gtt small ett secretion Afebrile overnight Vitals Vital Signs Date Time Temp Pulse Resp B/P (MAP) Pulse Ox O2 Delivery O2 Flow Rate FiO2 07/14/20 05:00 86 30 142/84 (103) 99 Ventilator 07/14/20 04:00 98.1 98.1 07/13/20 18:00 15.0 Comments Patient seen during pandemic visual exam performed Intubated/sedated NC AT RRR no Accessory muscle use No obvious rash or edema Lungs: Other (orally intubated, clear ) Labs Laboratory Tests Test 07/12/20 06:00 07/12/20 08:00 07/12/20 08:51 07/12/20 11:20 White Blood Count 12.3 x10^3/uL (4.0-11.0) Red Blood Count 3.50 x10^6/uL (4.30-5.70) Hemoglobin 11.5 g/dL (13.0-17.5) Hematocrit 34.9 % (39.0-53.0) Mean Corpuscular Volume 100 fL (79-100) Mean Corpuscular Hemoglobin 33 pg (25-35) Mean Corpuscular Hemoglobin Concent 33 g/dL (31-37) Red Cell Distribution Width 13.1 % (11.5-14.5) Platelet Count 192 x10^3/uL (140-400) Neutrophils (%) (Auto) 85 % (31-73) Lymphocytes (%) (Auto) 10 % (24-48) Monocytes (%) (Auto) 4 % (0-9) Eosinophils (%) (Auto) 1 % (0-3) Basophils (%) (Auto) 0 % (0-3) Neutrophils # (Auto) 10.4 x10^3/uL (1.8-7.7) Lymphocytes # (Auto) 1.3 x10^3/uL (1.0-4.8) Monocytes # (Auto) 0.5 x10^3/uL (0.0-1.1) Eosinophils # (Auto) 0.2 x10^3/uL (0.0-0.7) Basophils # (Auto) 0.0 x10^3/uL (0.0-0.2) Sodium Level 134 mmol/L (136-145) Potassium Level 4.3 mmol/L (3.5-5.1) Chloride Level 100 mmol/L (98-107) Carbon Dioxide Level 33 mmol/L (21-32) Anion Gap 1 (6-14) Blood Urea Nitrogen 20 mg/dL (8-26) Creatinine 0.7 mg/dL (0.7-1.3) Estimated GFR (Cockcroft-Gault) 119.4 Glucose Level 188 mg/dL (70-99) Calcium Level 7.9 mg/dL (8.5-10.1) Magnesium Level 2.2 mg/dL (1.8-2.4) Creatine Kinase 71 U/L (39-308) O2 Saturation 97 % (92-99) Arterial Blood pH 7.40 (7.35-7.45) Arterial Blood pCO2 at Patient Temp 48 mmHg (35-46) Arterial Blood pO2 at Patient Temp 94 mmHg (75-108) Arterial Blood HCO3 30 mmol/L (21-28) Arterial Blood Base Excess 4 mmol/L (-3-3) FiO2 65%+8 Heparin Anti-Xa Act, Unfractionated 0.31 IU/mL (0.30-0.70) Glucose (Fingerstick) 155 mg/dL (70-99) Test 07/12/20 16:57 07/12/20 20:46 07/13/20 06:15 07/13/20 08:00 Glucose (Fingerstick) 149 mg/dL (70-99) 171 mg/dL (70-99) Heparin Anti-Xa Act, Unfractionated 0.53 IU/mL (0.30-0.70) O2 Saturation 98 % (92-99) Arterial Blood pH 7.45 (7.35-7.45) Arterial Blood pCO2 at Patient Temp 49 mmHg (35-46) Arterial Blood pO2 at Patient Temp 109 mmHg (75-108) Arterial Blood HCO3 33 mmol/L (21-28) Arterial Blood Base Excess 8 mmol/L (-3-3) FiO2 70% vent Test 07/13/20 13:00 07/13/20 17:42 07/14/20 00:56 07/14/20 05:06 Glucose (Fingerstick) 176 mg/dL (70-99) 227 mg/dL (70-99) 205 mg/dL (70-99) 149 mg/dL (70-99) Laboratory Tests Test 07/13/20 06:15 07/13/20 08:00 07/13/20 13:00 07/13/20 17:42 Heparin Anti-Xa Act, Unfractionated 0.53 IU/mL (0.30-0.70) O2 Saturation 98 % (92-99) Arterial Blood pH 7.45 (7.35-7.45) Arterial Blood pCO2 at Patient Temp 49 mmHg (35-46) Arterial Blood pO2 at Patient Temp 109 mmHg (75-108) Arterial Blood HCO3 33 mmol/L (21-28) Arterial Blood Base Excess 8 mmol/L (-3-3) FiO2 70% vent Glucose (Fingerstick) 176 mg/dL (70-99) 227 mg/dL (70-99) Test 07/14/20 00:56 07/14/20 05:06 Glucose (Fingerstick) 205 mg/dL (70-99) 149 mg/dL (70-99) Comments CXR 07/12 reviewed 1. Stable life support devices. 2. Stable bilateral perihilar and basilar opacities. Impression . IMPRESSION: 1. Acute hypoxemic respiratory failure. 2. Acute pulmonary embolism with cor pulmonale. 3. Possible COVID-[address]. [address] CT chest revealing ground glass opacities. 5. Hypertension. 6. History of bronchitis. 7. Elevated troponin. 8. Acute kidney injury. 9. Leukocytosis. 10. Covid-19 positive Plan . Continue current ventilatory support, patient placed on pressure control with a pressure control 30,abg reviewed, increase rr to 32, will wean FiO2 as tolerated, now on 65% try to change to vec prn Follow chest x-ray and ABG, Continue adequate sedation, currently on vecuronium drip Follow cardiology recommendations Antibiotics per ID--Zosyn,cont. full course of remdesivir Continue heparin drip for pulmonary embolism increase solumedrol to bid continue tube feeding for nutritional support DVT/GI prophylaxis, heparin drip/ Protonix Discussed with RN and RT critically ill Critical care time30 min no overlap TRACIE CAVAZOS MD Jul 14, 2020 05:58
[2020-07-14] MEDS: PANTOPRAZOLE IV PUSH 40 MG VIAL. IVP SCH (07:57)
[2020-07-14] MEDS: methylPREDNISolone SOD SUCC PF 40 MG/ML VIAL. IV SCH ×2 (07:57→20:34)
[2020-07-14] MEDS: HEPARIN 25,000UTS/250ML PREMIX 250 ML IV PRN (07:57)
[2020-07-14] MEDS: CHOLECALCIFEROL (VITAMIN D3) 5,000 UNIT CAPSULE PO SCH (07:57)
[2020-07-14] MEDS: ZINC SULFATE 220 MG CAPSULE. PO SCH (07:57)
[2020-07-14 08:02] LABS: BASE EXCESS ABG 4 mmol/L (-3-3); HCO3 ABG 34 mmol/L (21-28); PO2 ABG 114 mmHg (75-108); SAT O2 ABG 98 % (92-99)
[2020-07-14 08:08] LABS: FIO2 ABG 65; PCO2 ABG 77 mmHg (35-46)
[2020-07-14] MEDS: VECURONIUM BROMIDE 50 MG in TOTAL VOLUME 50 ML IV PRN ×2 (08:31→20:34)
[2020-07-14 08:56] LABS: BASO % 0 % (0-3); EOS % 0 % (0-3); HEMATOCRIT 32.9 % (39.0-53.0); HEMOGLOBIN 10.9 g/dL (13.0-17.5); LYMPH # 0.4 x10^3/uL (1.0-4.8); LYMPH % 3 % (24-48); MEAN CORPUSCULAR HEMOGLOBIN 33 pg (25-35); MEAN CORPUSCULAR HGB CONC 33 g/dL (31-37); MEAN CORPUSCULAR VOLUME 100 fL (79-100); MONO # 0.9 x10^3/uL (0.0-1.1); MONO % 6 % (0-9); NEUT # 13.6 x10^3/uL (1.8-7.7); NEUT % 91 % (31-73); PLATELET COUNT 177 x10^3/uL (140-400); RED CELL DISTRIBUTION WIDTH 13.4 % (11.5-14.5); WHITE BLOOD COUNT 14.9 x10^3/uL (4.0-11.0)
[2020-07-14 09:04] LABS: CALCIUM 8.2 mg/dL (8.5-10.1); CREATININE 0.7 mg/dL (0.7-1.3); GFR 119.4
[2020-07-14 09:16] LABS: POTASSIUM 4.9 mmol/L (3.5-5.1)
[2020-07-14 10:29] LABS: % BANDS 1 % (0-9); % LYMPHS 3 % (24-48); % MONOS 2 % (0-10); % SEGS 94 % (35-66); PLT ESTIMATE ADEQUATE (ADEQUATE)
--- NOTE | 2020-07-14 10:56 | PDOC ---
[facility] [facility] PROGRESS NOTE Date of Service DOS: DATE: 07/14/20 TIME: 10:52 Chief Complaint Chief Complaint Acute hypoxic respiratory failure requiring intubation COVID-19 PUI Subsegmental bilateral PE Leukocytosis NSTEMI AKA Lactic acidosis Hyponatremia Plan: Appreciate pulmonology recommendationsContinue current ventilatory support, currently on 100% and PEEP of 10, avoid increasing PEEP 2/2 risk of barotrauma Follow chest x-ray and ABG, will reduce Fi02 to 70 % Consultations placed to cardiology Heparin infusion will address bilateral PEs and NSTEMI Solu-Medrol 40 mg every 8 hours Appreciate ID recommendationscontinue Remdesivir and empiric antibiotics IV fluids A total of 31 minutes of critical care time was spent in reviewing chart, labs, and images. Discussed with RN and SW. History of Present Illness History of Present Illness 07/14/2020 Patient seen and examined bedside. FiO2 65% and PEEP of 6 on vent. ABG: pH 7.26, PCO2 77, PO2 114, HCO3 34. We will adjust respiratory rate or tidal volume to titrate pH.> 50% time spent in patient chart, labs, and imaging review and in discussion with RN and SW 07/13/2020 No acute events overnight. Patient examined bedside sedated and intubated. FiO2 70% PEEP of 6. Improved ABGs.> 50% time spent in patient chart, labs, and imaging review and in discussion with RN and SW 07/12/2020 Patient seen and examined in the ICU. Sedated and intubated. FiO2 65, PEEP of 8 with improved oxygenation. pH 7.4, PCO2 48, PO2 94, HCO3 30. +500 cc fluid balance.> 50% time spent in patient chart, labs, and imaging review and in discussion with RN and SW 07/11/2020 Patient seen and examined bedside in the ICU. Patient continues to be intubated and sedated. FiO2 75%, PEEP of 10. pH 7.40, PCO2 44, PO2 is 135, HCO3 26. Can likely decrease FiO2 due to improved oxygenation. +173 cc in the past 24 hours 07/10/2020 Patient seen and examined bedside in ICU. Patient is intubated and sedated. FiO2 90%, PEEP of 10, respiratory rate of 30. ABG: pH is 7.41, PCO2 42, PO2 113, HCO3 26. 07/09/2020 Patient seen and examined in the ICU. Intubated and sedated. Vent settings FiO2 90%, PEEP of 10, respiratory rate of 30. 07/05: Patient seen in ICU, still intubated and sedated. COVID-19 pending. Patient remains on heparin infusion. Discussed with RN, will try to have central line placed per anesthesia. 07/06: Patient seen in ICU. Still FiO2 100% on vent and sedated. COVID-19 positive. Continue heparin infusion, Zosyn, steroids. 07/07: Covid positive patient seen in ICU. On vent with FiO2 100%, PEEP 10. Continue remdesivir, steroids, Zosyn. Continue to monitor 07/08: Patient seen in Covid ICU. Still on vent with FiO2 100%, PEEP 10. Afebrile. No acute events overnight. Continue steroids, antibiotics, and remdesivir. Patient is 49-year-old male with past medical history of hypertension, who presents to the ED with complaints of worsening shortness of breath over the past 5 days. Associated sore throat, fatigue, and generalized weakness. Patient was reportedly tested for COVID-19 last Thursday, but he had negative test results. His symptoms acutely worsened yesterday. Upon arrival to the ER his oxygen saturation was 60% on room air. He was placed on BiPAP and admitted to the ICU. Patient was subsequently intubated due to worsening respiratory failure. Vitals/I&O Vitals/I&O: Vital Signs Date Time Temp Pulse Resp B/P (MAP) Pulse Ox O2 Delivery O2 Flow Rate FiO2 07/14/20 10:00 76 30 112/75 (87) 94 Ventilator 07/14/20 04:00 98.1 98.1 07/13/20 18:00 15.0 I & O 07/13/20 07/13/20 07/14/20 15:00 23:00 07:00 Intake Total 50 ml 1004 ml 1207 ml Output Total 1075 ml 1000 ml 1375 ml Balance -1025 ml 4 ml -168 ml Physical Exam Physical Exam: GENERAL: Sedated, orally intubated gentleman, not in any distress. VITAL SIGNS: Stable HEENT: Both pupils are round and reacting. No conjunctival lesion. Mouth cannot be visualized as orally intubated. NECK: Supple. No JVP, no lymphadenopathy. LUNGS: Clear. Decreased breath sounds. HEART: S1, S2 regular. No gallop or murmur. ABDOMEN: Soft, nontender. No organomegaly. EXTREMITIES: No edema or cyanosis. SKIN: Unremarkable. 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 General: Other (Sedated and intubated) Heart: Regular rate (SR/ST) Lungs: Other (orally intubated, clear ) Abdomen: Other (Nondistended) Extremities: No clubbing, No cyanosis Skin: No rashes, No breakdown Labs Labs: Laboratory Tests Test 07/13/20 13:00 07/13/20 17:42 07/14/20 00:56 07/14/20 05:05 Glucose (Fingerstick) 176 mg/dL (70-99) 227 mg/dL (70-99) 205 mg/dL (70-99) Heparin Anti-Xa Act, Unfractionated 0.35 IU/mL (0.30-0.70) Test 07/14/20 05:06 07/14/20 07:50 07/14/20 08:48 Glucose (Fingerstick) 149 mg/dL (70-99) O2 Saturation 98 % (92-99) Arterial Blood pH 7.26 (7.35-7.45) Arterial Blood pCO2 at Patient Temp 77 mmHg (35-46) Arterial Blood pO2 at Patient Temp 114 mmHg (75-108) Arterial Blood HCO3 34 mmol/L (21-28) Arterial Blood Base Excess 4 mmol/L (-3-3) FiO2 65 White Blood Count 14.9 x10^3/uL (4.0-11.0) Red Blood Count 3.30 x10^6/uL (4.30-5.70) Hemoglobin 10.9 g/dL (13.0-17.5) Hematocrit 32.9 % (39.0-53.0) Mean Corpuscular Volume 100 fL (79-100) Mean Corpuscular Hemoglobin 33 pg (25-35) Mean Corpuscular Hemoglobin Concent 33 g/dL (31-37) Red Cell Distribution Width 13.4 % (11.5-14.5) Platelet Count 177 x10^3/uL (140-400) Neutrophils (%) (Auto) 91 % (31-73) Lymphocytes (%) (Auto) 3 % (24-48) Monocytes (%) (Auto) 6 % (0-9) Eosinophils (%) (Auto) 0 % (0-3) Basophils (%) (Auto) 0 % (0-3) Neutrophils # (Auto) 13.6 x10^3/uL (1.8-7.7) Lymphocytes # (Auto) 0.4 x10^3/uL (1.0-4.8) Monocytes # (Auto) 0.9 x10^3/uL (0.0-1.1) Eosinophils # (Auto) 0.0 x10^3/uL (0.0-0.7) Basophils # (Auto) 0.0 x10^3/uL (0.0-0.2) Segmented Neutrophils % 94 % (35-66) Band Neutrophils % 1 % (0-9) Lymphocytes % 3 % (24-48) Monocytes % 2 % (0-10) Platelet Estimate Adequate (ADEQUATE) Sodium Level 134 mmol/L (136-145) Potassium Level 4.9 mmol/L (3.5-5.1) Chloride Level 97 mmol/L (98-107) Carbon Dioxide Level 34 mmol/L (21-32) Anion Gap 3 (6-14) Blood Urea Nitrogen 20 mg/dL (8-26) Creatinine 0.7 mg/dL (0.7-1.3) Estimated GFR (Cockcroft-Gault) 119.4 Glucose Level 227 mg/dL (70-99) Calcium Level 8.2 mg/dL (8.5-10.1) Assessment and Plan Assessmemt and Plan Problems Medical Problems: (1) Acute respiratory failure with hypoxia Status: Acute (2) PRIYA (acute kidney injury) Status: Acute (3) Elevated troponin I level Status: Acute (4) Pulmonary emboli Status: Acute (5) Suspected COVID-19 virus infection Status: Acute Comment Review of Relevant I have reviewed the following items trino (where applicable) has been applied. Medications: Current Medications Medications (Trade) Dose Ordered Sig/Natalee Route PRN Reason Start Time Stop Time Status Last Admin Dose Admin Insulin Human Lispro (HumaLOG) 0-9 UNITS Q6HRS SQ 07/13/20 12:00 07/14/20 01:10 Justifications for Admission Other Justification DOROTHEA VIRK MD Jul 14, 2020 10:56
[2020-07-14] MEDS: fentaNYL HIGH DOSE PCA 55 ML IV PRN (14:19)
[2020-07-15] VITALS (24 sets, daily range): BP systolic 96–162; BP diastolic 59–101
[2020-07-15] MEDS: INSULIN LISPRO 300 UNITS/3 ML VIAL. SQ SCH ×4 (00:17→18:02)
[2020-07-15] MEDS: HEPARIN 25,000UTS/250ML PREMIX 250 ML IV PRN (02:09)
[2020-07-15] MEDS: ASCORBIC ACID 500 MG TABLET PO SCH ×4 (05:28→17:03)
[2020-07-15] MEDS: PIPERACILLIN/TAZOBACTAM 3.375 GM in IV NORMAL SALINE 50ML 50 ML IV SCH ×4 (05:28→17:03)
--- NOTE | 2020-07-15 05:34 | PDOC ---
PULMONARY PROGRESS NOTES DATE: 07/15/20 TIME: 05:32 Subjective increase 02 need, on vent pressure control peep 6 fio2 70% on versed fentanyl vec gtt mod ett secretion Afebrile overnight Vitals Vital Signs Date Time Temp Pulse Resp B/P (MAP) Pulse Ox O2 Delivery O2 Flow Rate FiO2 07/15/20 05:00 71 32 111/66 (81) 88 Ventilator 07/15/20 04:00 98.2 98.2 07/14/20 14:49 15.0 Comments Patient seen during pandemic visual exam performed Intubated/sedated NC AT RRR no Accessory muscle use No obvious rash or edema Lungs: Other (orally intubated, clear ) Labs Laboratory Tests Test 07/13/20 06:15 07/13/20 08:00 07/13/20 13:00 07/13/20 17:42 Heparin Anti-Xa Act, Unfractionated 0.53 IU/mL (0.30-0.70) O2 Saturation 98 % (92-99) Arterial Blood pH 7.45 (7.35-7.45) Arterial Blood pCO2 at Patient Temp 49 mmHg (35-46) Arterial Blood pO2 at Patient Temp 109 mmHg (75-108) Arterial Blood HCO3 33 mmol/L (21-28) Arterial Blood Base Excess 8 mmol/L (-3-3) FiO2 70% vent Glucose (Fingerstick) 176 mg/dL (70-99) 227 mg/dL (70-99) Test 07/14/20 00:56 07/14/20 05:05 07/14/20 05:06 07/14/20 07:50 Glucose (Fingerstick) 205 mg/dL (70-99) 149 mg/dL (70-99) Heparin Anti-Xa Act, Unfractionated 0.35 IU/mL (0.30-0.70) O2 Saturation 98 % (92-99) Arterial Blood pH 7.26 (7.35-7.45) Arterial Blood pCO2 at Patient Temp 77 mmHg (35-46) Arterial Blood pO2 at Patient Temp 114 mmHg (75-108) Arterial Blood HCO3 34 mmol/L (21-28) Arterial Blood Base Excess 4 mmol/L (-3-3) FiO2 65 Test 07/14/20 08:48 07/14/20 12:51 07/14/20 16:03 07/15/20 00:12 White Blood Count 14.9 x10^3/uL (4.0-11.0) Red Blood Count 3.30 x10^6/uL (4.30-5.70) Hemoglobin 10.9 g/dL (13.0-17.5) Hematocrit 32.9 % (39.0-53.0) Mean Corpuscular Volume 100 fL (79-100) Mean Corpuscular Hemoglobin 33 pg (25-35) Mean Corpuscular Hemoglobin Concent 33 g/dL (31-37) Red Cell Distribution Width 13.4 % (11.5-14.5) Platelet Count 177 x10^3/uL (140-400) Neutrophils (%) (Auto) 91 % (31-73) Lymphocytes (%) (Auto) 3 % (24-48) Monocytes (%) (Auto) 6 % (0-9) Eosinophils (%) (Auto) 0 % (0-3) Basophils (%) (Auto) 0 % (0-3) Neutrophils # (Auto) 13.6 x10^3/uL (1.8-7.7) Lymphocytes # (Auto) 0.4 x10^3/uL (1.0-4.8) Monocytes # (Auto) 0.9 x10^3/uL (0.0-1.1) Eosinophils # (Auto) 0.0 x10^3/uL (0.0-0.7) Basophils # (Auto) 0.0 x10^3/uL (0.0-0.2) Segmented Neutrophils % 94 % (35-66) Band Neutrophils % 1 % (0-9) Lymphocytes % 3 % (24-48) Monocytes % 2 % (0-10) Platelet Estimate Adequate (ADEQUATE) Sodium Level 134 mmol/L (136-145) Potassium Level 4.9 mmol/L (3.5-5.1) Chloride Level 97 mmol/L (98-107) Carbon Dioxide Level 34 mmol/L (21-32) Anion Gap 3 (6-14) Blood Urea Nitrogen 20 mg/dL (8-26) Creatinine 0.7 mg/dL (0.7-1.3) Estimated GFR (Cockcroft-Gault) 119.4 Glucose Level 227 mg/dL (70-99) Calcium Level 8.2 mg/dL (8.5-10.1) Glucose (Fingerstick) 238 mg/dL (70-99) 229 mg/dL (70-99) 265 mg/dL (70-99) Laboratory Tests Test 07/14/20 07:50 07/14/20 08:48 07/14/20 12:51 07/14/20 16:03 O2 Saturation 98 % (92-99) Arterial Blood pH 7.26 (7.35-7.45) Arterial Blood pCO2 at Patient Temp 77 mmHg (35-46) Arterial Blood pO2 at Patient Temp 114 mmHg (75-108) Arterial Blood HCO3 34 mmol/L (21-28) Arterial Blood Base Excess 4 mmol/L (-3-3) FiO2 65 White Blood Count 14.9 x10^3/uL (4.0-11.0) Red Blood Count 3.30 x10^6/uL (4.30-5.70) Hemoglobin 10.9 g/dL (13.0-17.5) Hematocrit 32.9 % (39.0-53.0) Mean Corpuscular Volume 100 fL (79-100) Mean Corpuscular Hemoglobin 33 pg (25-35) Mean Corpuscular Hemoglobin Concent 33 g/dL (31-37) Red Cell Distribution Width 13.4 % (11.5-14.5) Platelet Count 177 x10^3/uL (140-400) Neutrophils (%) (Auto) 91 % (31-73) Lymphocytes (%) (Auto) 3 % (24-48) Monocytes (%) (Auto) 6 % (0-9) Eosinophils (%) (Auto) 0 % (0-3) Basophils (%) (Auto) 0 % (0-3) Neutrophils # (Auto) 13.6 x10^3/uL (1.8-7.7) Lymphocytes # (Auto) 0.4 x10^3/uL (1.0-4.8) Monocytes # (Auto) 0.9 x10^3/uL (0.0-1.1) Eosinophils # (Auto) 0.0 x10^3/uL (0.0-0.7) Basophils # (Auto) 0.0 x10^3/uL (0.0-0.2) Segmented Neutrophils % 94 % (35-66) Band Neutrophils % 1 % (0-9) Lymphocytes % 3 % (24-48) Monocytes % 2 % (0-10) Platelet Estimate Adequate (ADEQUATE) Sodium Level 134 mmol/L (136-145) Potassium Level 4.9 mmol/L (3.5-5.1) Chloride Level 97 mmol/L (98-107) Carbon Dioxide Level 34 mmol/L (21-32) Anion Gap 3 (6-14) Blood Urea Nitrogen 20 mg/dL (8-26) Creatinine 0.7 mg/dL (0.7-1.3) Estimated GFR (Cockcroft-Gault) 119.4 Glucose Level 227 mg/dL (70-99) Calcium Level 8.2 mg/dL (8.5-10.1) Glucose (Fingerstick) 238 mg/dL (70-99) 229 mg/dL (70-99) Test 07/15/20 00:12 Glucose (Fingerstick) 265 mg/dL (70-99) Comments CXR 07/12 reviewed 1. Stable life support devices. 2. Stable bilateral perihilar and basilar opacities. Impression . IMPRESSION: 1. Acute hypoxemic respiratory failure. 2. Acute pulmonary embolism with cor pulmonale. 3. Possible COVID-19. [address] chest revealing ground glass opacities. 5. Hypertension. 6. History of bronchitis. 7. Elevated troponin. 8. Acute kidney injury. 9. Leukocytosis. 10. Covid-19 positive Plan . Continue current ventilatory support, patient placed on pressure control with a pressure control, rr 32, will wean FiO2 as tolerated, now on 70% try to change to vec prn from gtt f possible Follow chest x-ray and ABG, Continue adequate sedation, currently on vecuronium drip Follow cardiology recommendations Antibiotics per ID--Zosyn,cont. full course of remdesivir Continue heparin drip for pulmonary embolism increase solumedrol to bid continue tube feeding for nutritional support DVT/GI prophylaxis, heparin drip/ Protonix Discussed with RN and RT critically ill Critical care time30 min no overlap TRACIE CAVAZOS MD Jul 15, 2020 05:34
[2020-07-15] MEDS: VECURONIUM BROMIDE 50 MG in TOTAL VOLUME 50 ML IV PRN ×3 (05:55→21:09)
[2020-07-15] MEDS: MIDAZOLAM 100mg/100ml NS BAG 100 ML IV PRN ×2 (06:41→17:01)
--- NOTE | 2020-07-15 08:29 | PDOC ---
Infectious Disease Note Subjective Subjective Sedated intubated ROS ROS No nausea vomiting diarrhea Vital Sign Vital Signs Vital Signs Date Time Temp Pulse Resp B/P (MAP) Pulse Ox O2 Delivery O2 Flow Rate FiO2 07/15/20 07:00 74 32 131/82 (98) 90 Ventilator 07/15/20 04:00 98.2 98.2 07/14/20 14:49 15.0 Physical Exam PHYSICAL EXAM GENERAL: Sedated, orally intubated gentleman, not in any distress. VITAL SIGNS: Stable HEENT: Both pupils are round and reacting. No conjunctival lesion. Mouth cannot be visualized as orally intubated. NECK: Supple. No JVP, no lymphadenopathy. LUNGS: Clear. Decreased breath sounds. HEART: S1, S2 regular. No gallop or murmur. ABDOMEN: Soft, nontender. No organomegaly. EXTREMITIES: No edema or cyanosis. SKIN: Unremarkable. 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 Labs Lab Laboratory Tests Test 07/14/20 08:48 07/14/20 12:51 07/14/20 16:03 07/15/20 00:12 White Blood Count 14.9 x10^3/uL (4.0-11.0) Red Blood Count 3.30 x10^6/uL (4.30-5.70) Hemoglobin 10.9 g/dL (13.0-17.5) Hematocrit 32.9 % (39.0-53.0) Mean Corpuscular Volume 100 fL (79-100) Mean Corpuscular Hemoglobin 33 pg (25-35) Mean Corpuscular Hemoglobin Concent 33 g/dL (31-37) Red Cell Distribution Width 13.4 % (11.5-14.5) Platelet Count 177 x10^3/uL (140-400) Neutrophils (%) (Auto) 91 % (31-73) Lymphocytes (%) (Auto) 3 % (24-48) Monocytes (%) (Auto) 6 % (0-9) Eosinophils (%) (Auto) 0 % (0-3) Basophils (%) (Auto) 0 % (0-3) Neutrophils # (Auto) 13.6 x10^3/uL (1.8-7.7) Lymphocytes # (Auto) 0.4 x10^3/uL (1.0-4.8) Monocytes # (Auto) 0.9 x10^3/uL (0.0-1.1) Eosinophils # (Auto) 0.0 x10^3/uL (0.0-0.7) Basophils # (Auto) 0.0 x10^3/uL (0.0-0.2) Segmented Neutrophils % 94 % (35-66) Band Neutrophils % 1 % (0-9) Lymphocytes % 3 % (24-48) Monocytes % 2 % (0-10) Platelet Estimate Adequate (ADEQUATE) Sodium Level 134 mmol/L (136-145) Potassium Level 4.9 mmol/L (3.5-5.1) Chloride Level 97 mmol/L (98-107) Carbon Dioxide Level 34 mmol/L (21-32) Anion Gap 3 (6-14) Blood Urea Nitrogen 20 mg/dL (8-26) Creatinine 0.7 mg/dL (0.7-1.3) Estimated GFR (Cockcroft-Gault) 119.4 Glucose Level 227 mg/dL (70-99) Calcium Level 8.2 mg/dL (8.5-10.1) Glucose (Fingerstick) 238 mg/dL (70-99) 229 mg/dL (70-99) 265 mg/dL (70-99) Test 07/15/20 05:30 07/15/20 05:39 Heparin Anti-Xa Act, Unfractionated 0.19 IU/mL (0.30-0.70) Glucose (Fingerstick) 236 mg/dL (70-99) Micro Microbiology 07/03/20 Blood Culture - Final, Complete NO GROWTH AFTER 5 DAYS Objective Assessment IMPRESSION: 1. COVID-19 positive. 2. Respiratory failure. 3. Bilateral pulmonary emboli. 4. Hypertension. 5. Leukocytosis. Plan Plan of Care Continue supportive care Steroids Remdesivir MONALISA Ibanez MD Jul 15, 2020 08:29
[2020-07-15 08:30] LABS: BASE EXCESS ABG 6 mmol/L (-3-3); HCO3 ABG 28 mmol/L (21-28); PCO2 ABG 32 mmHg (35-46); PO2 ABG 56 mmHg (75-108); SAT O2 ABG 90 % (92-99)
[2020-07-15] MEDS: ZINC SULFATE 220 MG CAPSULE. PO SCH (09:00)
[2020-07-15] MEDS: CHOLECALCIFEROL (VITAMIN D3) 5,000 UNIT CAPSULE PO SCH (09:00)
[2020-07-15] MEDS: HEPARIN for IV BOLUS 10,000 UNIT/10 ML VIAL. IV PRN (09:19)
[2020-07-15 09:20] LABS: FIO2 ABG 80
--- NOTE | 2020-07-15 10:03 | PDOC ---
[facility] PROGRESS NOTE Date of Service DOS: DATE: 07/15/20 TIME: 09:59 Chief Complaint Chief Complaint Acute hypoxic respiratory failure requiring intubation COVID-19 PUI Subsegmental bilateral PE Leukocytosis NSTEMI AKA Lactic acidosis Hyponatremia Plan: Appreciate pulmonology recommendations Continue current ventilatory support, currently on 100% and PEEP of 10, avoid increasing PEEP 2/2 risk of barotrauma Follow chest x-ray and ABG, will reduce Fi02 to 70 % Heparin infusion will address bilateral PEs and NSTEMI Solu-Medrol 40 mg every 8 hours Appreciate ID recommendationscontinue Remdesivir and empiric antibiotics IV fluids A total of 35 minutes of critical care time was spent in reviewing chart, labs, and images. Discussed with RN and SW. History of Present Illness History of Present Illness 07/15/2020 Patient seen and examined bedside in the ICU. FiO2 80% PEEP of 6.pH 7.56, PCO2 32, PO2 56, HCO3 28. Will adjust respiratory rate accordingly to correct pH.> 50% time spent in patient chart, labs, and imaging review and in discussion with RN and SW 07/14/2020 Patient seen and examined bedside. FiO2 65% and PEEP of 6 on vent. ABG: pH 7 .26, PCO2 77, PO2 114, HCO3 34. We will adjust respiratory rate or tidal volume to titrate pH.> 50% time spent in patient chart, labs, and imaging review and in discussion with RN and SW 07/13/2020 No acute events overnight. Patient examined bedside sedated and intubated. FiO2 70% PEEP of 6. Improved ABGs.> 50% time spent in patient chart, labs, and imaging review and in discussion with RN and SW 07/12/2020 Patient seen and examined in the ICU. Sedated and intubated. FiO2 65, PEEP of 8 with improved oxygenation. pH 7.4, PCO2 48, PO2 94, HCO3 30. +500 cc fluid balance.> 50% time spent in patient chart, labs, and imaging review and in discussion with RN and SW 07/11/2020 Patient seen and examined bedside in the ICU. Patient continues to be intubated and sedated. FiO2 75%, PEEP of 10. pH 7.40, PCO2 44, PO2 is 135, HCO3 26. Can likely decrease FiO2 due to improved oxygenation. +173 cc in the past 24 hours 07/10/2020 Patient seen and examined bedside in ICU. Patient is intubated and sedated. FiO2 90%, PEEP of 10, respiratory rate of 30. ABG: pH is 7.41, PCO2 42, PO2 113, HCO3 26. 07/09/2020 Patient seen and examined in the ICU. Intubated and sedated. Vent settings FiO2 90%, PEEP of 10, respiratory rate of 30. 07/05: Patient seen in ICU, still intubated and sedated. COVID-19 pending. Patient remains on heparin infusion. Discussed with RN, will try to have central line placed per anesthesia. 07/06: Patient seen in ICU. Still FiO2 100% on vent and sedated. COVID-19 positive. Continue heparin infusion, Zosyn, steroids. 07/07: Covid positive patient seen in ICU. On vent with FiO2 100%, PEEP 10. Continue remdesivir, steroids, Zosyn. Continue to monitor 07/08: Patient seen in Covid ICU. Still on vent with FiO2 100%, PEEP 10. Afebrile. No acute events overnight. Continue steroids, antibiotics, and remdesivir. Patient is 49-year-old male with past medical history of hypertension, who presents to the ED with complaints of worsening shortness of breath over the past 5 days. Associated sore throat, fatigue, and generalized weakness. Patient was reportedly tested for COVID-19 last Thursday, but he had negative test results. His symptoms acutely worsened yesterday. Upon arrival to the ER his oxygen saturation was 60% on room air. He was placed on BiPAP and admitted to the ICU. Patient was subsequently intubated due to worsening respiratory failure. Vitals/I&O Vitals/I&O: Vital Signs Date Time Temp Pulse Resp B/P (MAP) Pulse Ox O2 Delivery O2 Flow Rate FiO2 07/15/20 08:00 Mechanical Ventilator 07/15/20 08:00 98.5 83 32 128/78 (95) 91 98.5 07/14/20 14:49 15.0 I & O 07/14/20 07/14/20 07/15/20 15:00 23:00 07:00 Intake Total 200 ml 1139.4 ml 1598 ml Output Total 1150 ml 1100 ml 760 ml Balance -950 ml 39.4 ml 838 ml Physical Exam Physical Exam: GENERAL: Sedated, orally intubated gentleman, not in any distress. VITAL SIGNS: Stable HEENT: Both pupils are round and reacting. No conjunctival lesion. Mouth cannot be visualized as orally intubated. NECK: Supple. No JVP, no lymphadenopathy. LUNGS: Clear. Decreased breath sounds. HEART: S1, S2 regular. No gallop or murmur. ABDOMEN: Soft, nontender. No organomegaly. EXTREMITIES: No edema or cyanosis. SKIN: Unremarkable. 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 General: Other (Sedated and intubated) Heart: Regular rate (SR/ST) Lungs: Other (orally intubated, clear ) Abdomen: Other (Nondistended) Extremities: No clubbing, No cyanosis Skin: No rashes, No breakdown Labs Labs: Laboratory Tests Test 07/14/20 12:51 07/14/20 16:03 07/15/20 00:12 07/15/20 05:30 Glucose (Fingerstick) 238 mg/dL (70-99) 229 mg/dL (70-99) 265 mg/dL (70-99) Heparin Anti-Xa Act, Unfractionated 0.19 IU/mL (0.30-0.70) Test 07/15/20 05:39 07/15/20 07:40 Glucose (Fingerstick) 236 mg/dL (70-99) O2 Saturation 90 % (92-99) Arterial Blood pH 7.56 (7.35-7.45) Arterial Blood pCO2 at Patient Temp 32 mmHg (35-46) Arterial Blood pO2 at Patient Temp 56 mmHg (75-108) Arterial Blood HCO3 28 mmol/L (21-28) Arterial Blood Base Excess 6 mmol/L (-3-3) FiO2 80 Assessment and Plan Assessmemt and Plan Problems Medical Problems: (1) Acute respiratory failure with hypoxia Status: Acute (2) PRIYA (acute kidney injury) Status: Acute (3) Elevated troponin I level Status: Acute (4) Pulmonary emboli Status: Acute (5) Suspected COVID-19 virus infection Status: Acute Comment Review of Relevant I have reviewed the following items trino (where applicable) has been applied. Medications: Current Medications Medications (Trade) Dose Ordered Sig/Natalee Route PRN Reason Start Time Stop Time Status Last Admin Dose Admin Methylprednisolone Sodium Succinate (SOLU-Medrol 40MG VIAL) 40 mg Q12HR IV 07/14/20 21:00 07/14/20 20:34 Justifications for Admission Other Justification DOROTHEA VIRK MD Jul 15, 2020 10:02
[2020-07-15] MEDS: PANTOPRAZOLE IV PUSH 40 MG VIAL. IVP SCH (10:36)
[2020-07-15] MEDS: methylPREDNISolone SOD SUCC PF 40 MG/ML VIAL. IV SCH ×2 (10:36→21:09)
[2020-07-15] MEDS: fentaNYL HIGH DOSE PCA 55 ML IV PRN (17:01)
[2020-07-16] VITALS (24 sets, daily range): BP systolic 92–186; BP diastolic 56–114
[2020-07-16] MEDS: ASCORBIC ACID 500 MG TABLET PO SCH ×4 (00:36→16:27)
[2020-07-16] MEDS: PIPERACILLIN/TAZOBACTAM 3.375 GM in IV NORMAL SALINE 50ML 50 ML IV SCH ×4 (00:36→18:14)
[2020-07-16] MEDS: INSULIN LISPRO 300 UNITS/3 ML VIAL. SQ SCH ×4 (00:40→18:00)
[2020-07-16] MEDS: MIDAZOLAM 100mg/100ml NS BAG 100 ML IV PRN ×2 (04:46→13:26)
--- NOTE | 2020-07-16 08:02 | PDOC ---
PROGRESS NOTES Date of Service: DATE: 07/16/20 TIME: 07:56 Chief Complaint Chief Complaint Acute hypoxic respiratory failure requiring intubation COVID-19 PUI Subsegmental bilateral PE Leukocytosis NSTEMI AKA Lactic acidosis Hyponatremia Plan: Appreciate pulmonology recommendations Continue current ventilatory support, currently on 100% and PEEP of 10, avoid increasing PEEP 2/2 risk of barotrauma Follow chest x-ray and ABG, vent management as per pulmonology Heparin infusion will address bilateral PEs and NSTEMI, monitor for bleeding. Solu-Medrol 40 mg every 8 hours Appreciate ID recommendationscontinue Remdesivir and empiric antibiotics IV fluids A total of 35 minutes of critical care time was spent in reviewing chart, labs, and images. Discussed with RN and JAVIER. History of Present Illness History of Present Illness 07/16/2020 Patient with no acute events reported overnight, patient continues to require quite a bit of FiO2 at 80%. Vent management as per biometrics consultant, will place a call to family members after rounding. Discussed with RN 07/15/2020 Patient seen and examined bedside in the ICU. FiO2 80% PEEP of 6.pH 7.56, PCO2 32, PO2 56, HCO3 28. Will adjust respiratory rate accordingly to correct pH.> 50% time spent in patient chart, labs, and imaging review and in discussion with RN and JAVIER 07/14/2020 Patient seen and examined bedside. FiO2 65% and PEEP of 6 on vent. ABG: pH 7.26, PCO2 77, PO2 114, HCO3 34. We will adjust respiratory rate or tidal volume to titrate pH.> 50% time spent in patient chart, labs, and imaging review and in discussion with RN and JAVIER 07/13/2020 No acute events overnight. Patient examined bedside sedated and intubated. FiO 2 70% PEEP of 6. Improved ABGs.> 50% time spent in patient chart, labs, and imaging review and in discussion with RN and SW 07/12/2020 Patient seen and examined in the ICU. Sedated and intubated. FiO2 65, PEEP of 8 with improved oxygenation. pH 7.4, PCO2 48, PO2 94, HCO3 30. +500 cc fluid balance.> 50% time spent in patient chart, labs, and imaging review and in discussion with RN and JAVIER 07/11/2020 Patient seen and examined bedside in the ICU. Patient continues to be intubated and sedated. FiO2 75%, PEEP of 10. pH 7.40, PCO2 44, PO2 is 135, HCO3 26. Can likely decrease FiO2 due to improved oxygenation. +173 cc in the past 24 hours 07/10/2020 Patient seen and examined bedside in ICU. Patient is intubated and sedated. FiO2 90%, PEEP of 10, respiratory rate of 30. ABG: pH is 7.41, PCO2 42, PO2 113, HCO3 26. 07/09/2020 Patient seen and examined in the ICU. Intubated and sedated. Vent settings FiO2 90%, PEEP of 10, respiratory rate of 30. 07/05: Patient seen in ICU, still intubated and sedated. COVID-19 pending. Patient remains on heparin infusion. Discussed with RN, will try to have central line placed per anesthesia. 07/06: Patient seen in ICU. Still FiO2 100% on vent and sedated. COVID-19 positive. Continue heparin infusion, Zosyn, steroids. 07/07: Covid positive patient seen in ICU. On vent with FiO2 100%, PEEP 10. Continue remdesivir, steroids, Zosyn. Continue to monitor 07/08: Patient seen in Covid ICU. Still on vent with FiO2 100%, PEEP 10. Afebrile. No acute events overnight. Continue steroids, antibiotics, and remdesivir. Patient is 49-year-old male with past medical history of hypertension, who presents to the ED with complaints of worsening shortness of breath over the past 5 days. Associated sore throat, fatigue, and generalized weakness. Patient was reportedly tested for COVID-19 last Thursday, but he had negative test results. His symptoms acutely worsened yesterday. Upon arrival to the ER his oxygen saturation was 60% on room air. He was placed on BiPAP and admitted to the ICU. Patient was subsequently intubated due to worsening respiratory failure. Vitals Vitals Vital Signs Date Time Temp Pulse Resp B/P (MAP) Pulse Ox O2 Delivery O2 Flow Rate FiO2 07/16/20 06:00 107 32 155/96 (115) 92 Ventilator 07/16/20 04:00 98.7 98.7 07/15/20 17:31 15.0 Physical Exam Physical Exam GENERAL: Sedated, orally intubated gentleman, not in any distress. VITAL SIGNS: Stable HEENT: Both pupils are round and reacting. No conjunctival lesion. Mouth cannot be visualized as orally intubated. NECK: Supple. No JVP, no lymphadenopathy. LUNGS: Clear. Decreased breath sounds. HEART: S1, S2 regular. No gallop or murmur. ABDOMEN: Soft, nontender. No organomegaly. EXTREMITIES: No edema or cyanosis. SKIN: Unremarkable. 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 General: Other (Sedated and intubated) Heart: Regular rate (SR/ST) Lungs: Other (orally intubated, clear ) Abdomen: Other (Nondistended) Extremities: No clubbing, No cyanosis Skin: No rashes, No breakdown Labs LABS Laboratory Tests Test 07/15/20 13:30 07/15/20 17:12 07/15/20 20:00 07/16/20 00:34 Heparin Anti-Xa Act, Unfractionated 0.88 IU/mL (0.30-0.70) 0.47 IU/mL (0.30-0.70) Glucose (Fingerstick) 274 mg/dL (70-99) 258 mg/dL (70-99) Test 07/16/20 05:00 07/16/20 05:24 Heparin Anti-Xa Act, Unfractionated 0.38 IU/mL (0.30-0.70) Glucose (Fingerstick) 237 mg/dL (70-99) Assessment and Plan Assessmemt and Plan Problems Medical Problems: (1) Acute respiratory failure with hypoxia Status: Acute (2) PRIYA (acute kidney injury) Status: Acute (3) Elevated troponin I level Status: Acute (4) Pulmonary emboli Status: Acute (5) Suspected COVID-19 virus infection Status: Acute Comment Review of Relevant I have reviewed the following items trino (where applicable) has been applied. Labs Laboratory Tests Test 07/14/20 08:48 07/14/20 12:51 07/14/20 16:03 07/15/20 00:12 White Blood Count 14.9 x10^3/uL (4.0-11.0) Red Blood Count 3.30 x10^6/uL (4.30-5.70) Hemoglobin 10.9 g/dL (13.0-17.5) Hematocrit 32.9 % (39.0-53.0) Mean Corpuscular Volume 100 fL (79-100) Mean Corpuscular Hemoglobin 33 pg (25-35) Mean Corpuscular Hemoglobin Concent 33 g/dL (31-37) Red Cell Distribution Width 13.4 % (11.5-14.5) Platelet Count 177 x10^3/uL (140-400) Neutrophils (%) (Auto) 91 % (31-73) Lymphocytes (%) (Auto) 3 % (24-48) Monocytes (%) (Auto) 6 % (0-9) Eosinophils (%) (Auto) 0 % (0-3) Basophils (%) (Auto) 0 % (0-3) Neutrophils # (Auto) 13.6 x10^3/uL (1.8-7.7) Lymphocytes # (Auto) 0.4 x10^3/uL (1.0-4.8) Monocytes # (Auto) 0.9 x10^3/uL (0.0-1.1) Eosinophils # (Auto) 0.0 x10^3/uL (0.0-0.7) Basophils # (Auto) 0.0 x10^3/uL (0.0-0.2) Segmented Neutrophils % 94 % (35-66) Band Neutrophils % 1 % (0-9) Lymphocytes % 3 % (24-48) Monocytes % 2 % (0-10) Platelet Estimate Adequate (ADEQUATE) Sodium Level 134 mmol/L (136-145) Potassium Level 4.9 mmol/L (3.5-5.1) Chloride Level 97 mmol/L (98-107) Carbon Dioxide Level 34 mmol/L (21-32) Anion Gap 3 (6-14) Blood Urea Nitrogen 20 mg/dL (8-26) Creatinine 0.7 mg/dL (0.7-1.3) Estimated GFR (Cockcroft-Gault) 119.4 Glucose Level 227 mg/dL (70-99) Calcium Level 8.2 mg/dL (8.5-10.1) Glucose (Fingerstick) 238 mg/dL (70-99) 229 mg/dL (70-99) 265 mg/dL (70-99) Test 07/15/20 05:30 07/15/20 05:39 07/15/20 07:40 07/15/20 13:30 Heparin Anti-Xa Act, Unfractionated 0.19 IU/mL (0.30-0.70) 0.88 IU/mL (0.30-0.70) Glucose (Fingerstick) 236 mg/dL (70-99) O2 Saturation 90 % (92-99) Arterial Blood pH 7.56 (7.35-7.45) Arterial Blood pCO2 at Patient Temp 32 mmHg (35-46) Arterial Blood pO2 at Patient Temp 56 mmHg (75-108) Arterial Blood HCO3 28 mmol/L (21-28) Arterial Blood Base Excess 6 mmol/L (-3-3) FiO2 80 Test 07/15/20 17:12 07/15/20 20:00 07/16/20 00:34 07/16/20 05:00 Glucose (Fingerstick) 274 mg/dL (70-99) 258 mg/dL (70-99) Heparin Anti-Xa Act, Unfractionated 0.47 IU/mL (0.30-0.70) 0.38 IU/mL (0.30-0.70) Test 07/16/20 05:24 Glucose (Fingerstick) 237 mg/dL (70-99) Laboratory Tests Test 07/15/20 13:30 07/15/20 17:12 07/15/20 20:00 07/16/20 00:34 Heparin Anti-Xa Act, Unfractionated 0.88 IU/mL (0.30-0.70) 0.47 IU/mL (0.30-0.70) Glucose (Fingerstick) 274 mg/dL (70-99) 258 mg/dL (70-99) Test 07/16/20 05:00 07/16/20 05:24 Heparin Anti-Xa Act, Unfractionated 0.38 IU/mL (0.30-0.70) Glucose (Fingerstick) 237 mg/dL (70-99) Microbiology 07/03/20 Blood Culture - Final, Complete NO GROWTH AFTER 5 DAYS Medications Current Medications Ceftriaxone Sodium (Rocephin) 1 gm 1X ONCE IVP Last administered on 07/03/20at 20:11; Start 07/03/20 at 19:15; Stop 07/03/20 at 19:19; Status DC Azithromycin (Zithromax) 500 mg 1X ONCE PO Last administered on 07/03/20at 20:11; Start 07/03/20 at 19:15; Stop 07/03/20 at 19:19; Status DC Sodium Chloride 1,000 ml @ 1,000 mls/hr 1X ONCE IV Last administered on 07/03/20at 20:11; Start 07/03/20 at 19:15; Stop 07/03/20 at 20:14; Status DC Sodium Chloride 1,000 ml @ 1,000 mls/hr 1X ONCE IV Last administered on 07/03/20at 19:15; Start 07/03/20 at 19:15; Stop 07/03/20 at 20:14; Status DC Iohexol (Omnipaque 350 Mg/ml) 90 ml 1X ONCE IV Last administered on 07/03/20at 21:00; Start 07/03/20 at 20:45; Stop 07/03/20 at 20:46; Status DC Info (CONTRAST GIVEN -- Rx MONITORING) 1 each PRN DAILY PRN MC SEE COMMENTS; Start 07/03/20 at 20:45; Stop 07/05/20 at 20:44; Status DC Enoxaparin Sodium (Lovenox 150mg Syringe) 150 mg 1X ONCE SQ Last administered on 07/03/20at 22:45; Start 07/03/20 at 23:00; Stop 07/03/20 at 23:01; Status DC Ondansetron HCl (Zofran) 4 mg PRN Q8HRS PRN IV NAUSEA/VOMITING 1ST CHOICE; Start 07/03/20 at 22:30; Stop 07/04/20 at 22:29; Status DC Morphine Sulfate (Morphine Sulfate) 2 mg PRN Q2HR PRN IV SEVERE PAIN 7-10; Start 07/03/20 at 22:30; Stop 07/04/20 at 22:29; Status DC Sodium Chloride 1,000 ml @ 100 mls/hr Q10H IV Last administered on 07/05/20at 00:35; Start 07/03/20 at 23:00; Stop 07/04/20 at 22:59; Status DC Acetaminophen (Tylenol) 650 mg PRN Q4HRS PRN PO FEVER > 100.3'F; Start 07/03/20 at 22:30; Stop 07/04/20 at 22:29; Status DC Throat Lozenges (Cepacol Sore Throat Lozenge) 1 lety PRN Q2HRS PRN PO SORE THROAT; Start 07/04/20 at 01:15 Furosemide (Lasix) 20 mg 1X ONCE IVP Last administered on 07/04/20at 10:10; Start 07/04/20 at 10:00; Stop 07/04/20 at 10:01; Status DC Succinylcholine Chloride (Anectine) 200 mg STK-MED ONCE .ROUTE ; Start 07/04/20 at 09:09; Stop 07/04/20 at 09:09; Status DC Etomidate (Amidate) 20 mg STK-MED ONCE IV ; Start 07/04/20 at 09:09; Stop 07/04/20 at 09:09; Status DC Fentanyl Citrate 30 ml @ 0 mls/hr CONT PRN IV SEE PROTOCOL Last administered on 07/04/20at 09:36; Start 07/04/20 at 09:15; Stop 07/04/20 at 14:36; Status DC Propofol 100 ml @ 0 mls/hr CONT PRN IV SEE PROTOCOL Last administered on 07/12/20at 11:34; Start 07/04/20 at 09:15 Midazolam HCl 100 ml @ 0 mls/hr CONT PRN IV SEE PROTOCOL Last administered on 07/16/20at 04:46; Start 07/04/20 at 09:15 Midazolam HCl (Versed) 5 mg 1X STAT IV Last administered on 07/04/20at 09:41; Start 07/04/20 at 09:21; Stop 07/04/20 at 09:22; Status DC Midazolam HCl (Versed) 5 mg STK-MED ONCE .ROUTE ; Start 07/04/20 at 09:21; Stop 07/04/20 at 09:21; Status DC Etomidate (Amidate) 10 mg 1X ONCE IV Last administered on 07/04/20at 09:37; Start 07/04/20 at 09:30; Stop 07/04/20 at 09:31; Status DC Succinylcholine Chloride (Anectine) 200 mg 1X ONCE IV Last administered on 07/04/20at 09:38; Start 07/04/20 at 09:30; Stop 07/04/20 at 09:31; Status DC Vecuronium [place] (Norcuron Bolus) 6 mg 1X ONCE IV Last administered on 07/04/20at 09:38; Start 07/04/20 at 09:45; Stop 07/04/20 at 09:46; Status DC Vecuronium [place] (Norcuron Bolus) 10 mg STK-MED ONCE IV ; Start 07/04/20 at 09:33; Stop 07/04/20 at 09:33; Status DC Pantoprazole Sodium (PROTONIX VIAL for IV PUSH) 40 mg DAILYAC IVP Last admini stered on 07/15/20at 10:36; Start 07/04/20 at 12:30 Methylprednisolone Sodium Succinate (SOLU-Medrol 40MG VIAL) 40 mg Q8HRS IV Last administered on 07/11/20at 05:41; Start 07/04/20 at 14:00; Stop 07/11/20 at 11:36; Status DC Piperacillin Sod/ Tazobactam Sod (Zosyn Per Pharmacy) 1 each PRN DAILY PRN MC SEE COMMENTS; Start 07/04/20 at 12:00 Heparin Sodium/ Dextrose 250 ml @ 0 mls/hr CONT PRN IV PER PROTOCOL Last administered on 07/15/20at 02:09; Start 07/04/20 at 12:00 Heparin Sodium (Porcine) (Heparin Sodium) 2,500 unit PRN Q6HRS PRN IV FOR UFH LEVEL LESS THAN 0.2 Last administered on 07/15/20at 09:19; Start 07/04/20 at 12 :00 Heparin Sodium (Porcine) (Heparin Sodium) 1,250 unit PRN Q6HRS PRN IV FOR UFH LEVEL 0.2 - 0.29 Last administered on 07/05/20at 18:27; Start 07/04/20 at 12:00 Piperacillin Sod/ Tazobactam Sod 3.375 gm/Sodium Chloride 50 ml @ 100 mls/hr Q6HRS IV Last administered on 07/16/20at 05:06; Start 07/04/20 at 12:00 Zinc Sulfate (Orazinc) 220 mg DAILY PO Last administered on 07/15/20at 09:00; Start 07/05/20 at 09:00 Ascorbic Acid (Vitamin C) 500 mg Q6HRS PO Last administered on 07/16/20at 05:07; Start 07/04/20 at 18:00 Vitamin D (Vitamin D3) 5,000 unit DAILY PO Last administered on 07/15/20at 09:00; Start 07/05/20 at 09:00 Vecuronium [place] (Norcuron Bolus) 6 mg 1X ONCE IV Last administered on 07/04/20at 13:27; Start 07/04/20 at 13:15; Stop 07/04/20 at 13:16; Status DC Norepinephrine Bitartrate 8 mg/ Dextrose 258 ml @ 16.061 mls/ hr CONT PRN IV PER PROTOCOL Last administered on 07/05/20at 00:33; Start 07/04/20 at 13:15 Fentanyl Citrate 55 ml @ 0 mls/hr CONT PRN IV SEE PROTOCOL Last administered on 07/15/20at 17:01; Start 07/04/20 at 14:45 Vecuronium [place] (Norcuron Bolus) 6 mg Q4H PRN IV OVERBREATHING VENT/out of sync Last administered on 07/12/20at 13:03; Start 07/04/20 at 16:45 Furosemide (Lasix) 40 mg 1X ONCE IVP Last administered on 07/05/20at 14:17; Start 07/05/20 at 13:30; Stop 07/05/20 at 13:31; Status DC Insulin Human Lispro (HumaLOG) 0-5 UNITS Q6HRS SQ Last administered on 07/11/20at 05:42; Start 07/05/20 at 18:00; Stop 07/11/20 at 07:54; Status DC Dextrose (Dextrose 50%-Water Syringe) 12.5 gm PRN Q15MIN PRN IV SEE COMMENTS; Start 07/05/20 at 14:15 Insulin Human Lispro (HumaLOG) 2 units 1X ONCE SQ Last administered on 07/05/20at 14:19; Start 07/05/20 at 14:30; Stop 07/05/20 at 14:31; Status DC Remdesivir 200 mg/ Sodium Chloride 210 ml @ 210 mls/hr 1X ONCE IV Last administered on 07/06/20at 14:51; Start 07/06/20 at 14:30; Stop 07/06/20 at 1 5:29; Status DC Remdesivir 100 mg/ Sodium Chloride 230 ml @ 460 mls/hr Q24H IV Last administered on 07/10/20at 13:59; Start 07/07/20 at 14:30; Stop 07/10/20 at 14:59; Status DC Insulin Human Lispro (HumaLOG) 0-9 UNITS TIDWMEALS SQ Last administered on 07/12/20at 11:31; Start 07/11/20 at 08:00; Stop 07/13/20 at 10:17; Status DC Methylprednisolone Sodium Succinate (SOLU-Medrol 40MG VIAL) 40 mg DAILY IV Last administered on 07/14/20at 07:57; Start 07/12/20 at 09:00; Stop 07/14/20 at 09:26; Status DC Acetaminophen (Tylenol) 650 mg PRN Q6HRS PRN PEG MILD PAIN / TEMP > 100.3'F Last administered on 07/12/20at 12:11; Start 07/12/20 at 12:00 Vecuronium [place] 50 mg/ Miscellaneous 50 ml @ 4.094 mls/ hr CONT PRN IV SEE I/O RECORD Last administered on 07/15/20at 21:09; Start 07/12/20 at 14:45 Insulin Human Lispro (HumaLOG) 0-9 UNITS Q6HRS SQ Last administered on 07/16/20at 05:28; Start 07/13/20 at 12:00 Methylprednisolone Sodium Succinate (SOLU-Medrol 40MG VIAL) 40 mg Q12HR IV Last administered on 07/15/20at 21:09; Start 07/14/20 at 21:00 Vitals/I & O Vital Sign - Last 24 Hours 07/15/20 07/15/20 07/15/20 07/15/20 08:00 08:00 09:00 10:00 Temp 98.5 98.5 Pulse 83 72 64 Resp 32 32 32 B/P (MAP) 128/78 (95) 119/75 (90) 105/66 (79) Pulse Ox 91 90 90 O2 Delivery Ventilator Mechanical Ventilator Ventilator Ventilator 07/15/20 07/15/20 07/15/20 07/15/20 11:00 11:35 12:00 12:00 Temp 99.1 99.1 Pulse 58 62 Resp 32 32 B/P (MAP) 119/67 (84) 104/66 (79) Pulse Ox 90 91 91 O2 Delivery Ventilator Ventilator Mechanical Ventilator Ventilator 07/15/20 07/15/20 07/15/20 07/15/20 13:00 14:00 15:00 15:39 Pulse 76 86 72 Resp 32 32 32 B/P (MAP) 115/68 (84) 145/86 (105) 141/87 (105) Pulse Ox 90 90 90 93 O2 Delivery Ventilator Ventilator Ventilator Ventilator 07/15/20 07/15/20 07/15/20 07/15/20 16:00 16:00 17:00 17:01 Temp 98.8 98.8 Pulse 80 80 Resp 32 32 B/P (MAP) 156/97 (116) 149/101 (117) Pulse Ox 92 90 93 O2 Delivery Mechanical Ventilator Ventilator Ventilator O2 Flow Rate 15.0 07/15/20 07/15/20 07/15/20 07/15/20 17:31 18:06 19:00 19:55 Pulse 72 68 Resp 32 32 B/P (MAP) 153/93 (113) 154/94 (114) Pulse Ox 93 93 94 94 O2 Delivery Ventilator Ventilator Ventilator O2 Flow Rate 15.0 07/15/20 07/15/20 07/15/20 07/15/20 20:00 20:00 21:00 22:00 Temp 98.0 98.0 Pulse 84 88 72 Resp 32 32 32 B/P (MAP) 132/84 (100) 162/95 (117) 128/79 (95) Pulse Ox 95 95 91 O2 Delivery Mechanical Ventilator Ventilator Ventilator Ventilator 07/15/20 07/15/20 07/16/20 07/16/20 23:00 23:19 00:00 00:00 Temp 98.2 98.2 Pulse 64 62 Resp 32 32 B/P (MAP) 102/62 (75) 105/64 (78) Pulse Ox 89 90 91 O2 Delivery Ventilator Ventilator Ventilator Mechanical Ventilator 07/16/20 07/16/20 07/16/20 07/16/20 01:00 02:00 03:00 04:00 Temp 98.7 98.7 Pulse 65 76 79 95 Resp 32 32 32 32 B/P (MAP) 119/71 (87) 141/85 (103) 151/91 (111) 176/114 (134) Pulse Ox 92 93 90 90 O2 Delivery Ventilator Ventilator Ventilator Ventilator 07/16/20 07/16/20 07/16/20 07/16/20 04:00 04:10 05:00 06:00 Pulse 102 107 Resp 32 32 B/P (MAP) 186/105 (132) 155/96 (115) Pulse Ox 95 92 92 O2 Delivery Mechanical Ventilator Ventilator Ventilator Ventilator Intake and Output 07/15/20 07/15/20 07/16/20 15:00 23:00 07:00 Intake Total 250 ml 1419 ml 1456 ml Output Total 750 ml 950 ml 550 ml Balance -500 ml 469 ml 906 ml Justicifation of Admission Dx: Justifications for Admission: Justification of Admission Dx: Yes SCOTT RUSH MD Jul 16, 2020 08:02
--- NOTE | 2020-07-16 08:20 | PDOC ---
Infectious Disease Note Subjective: Subjective Sedated /intubated FiO2 80% 6 of PEEP Vital Signs: Vital Signs Vital Signs Date Time Temp Pulse Resp B/P (MAP) Pulse Ox O2 Delivery O2 Flow Rate FiO2 07/16/20 06:00 107 32 155/96 (115) 92 Ventilator 07/16/20 04:00 98.7 98.7 07/15/20 17:31 15.0 Physical Exam: PHYSICAL EXAM GENERAL: Sedated, orally intubated gentleman, not in any distress. VITAL SIGNS: Stable HEENT: Both pupils are round and reacting. No conjunctival lesion. Mouth cannot be visualized as orally intubated. NECK: Supple. No JVP, no lymphadenopathy. LUNGS: Clear. Decreased breath sounds. HEART: S1, S2 regular. No gallop or murmur. ABDOMEN: Soft, nontender. No organomegaly. EXTREMITIES: No edema or cyanosis. SKIN: Unremarkable. 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 Medications: Inpatient Meds: Current Medications Medications (Trade) Dose Ordered Sig/Natalee Start Time Stop Time Status Last Admin Dose Admin Acetaminophen (Tylenol) 650 mg PRN Q6HRS PRN 07/12/20 12:00 07/12/20 12:11 650 MG Ascorbic Acid (Vitamin C) 500 mg Q6HRS 07/04/20 18:00 07/16/20 05:07 500 MG Azithromycin (Zithromax) 500 mg 1X ONCE 07/03/20 19:15 07/03/20 19:19 DC 07/03/20 20:11 500 MG Ceftriaxone Sodium (Rocephin) 1 gm 1X ONCE 07/03/20 19:15 07/03/20 19:19 DC 07/03/20 20:11 1 GM Dextrose (Dextrose 50%-Water Syringe) 12.5 gm PRN Q15MIN PRN 07/05/20 14:15 Enoxaparin Sodium (Lovenox 150mg Syringe) 150 mg 1X ONCE 07/03/20 23:00 07/03/20 23:01 DC 07/03/20 22:45 150 MG Etomidate (Amidate) 10 mg 1X ONCE 07/04/20 09:30 07/04/20 09:31 DC 07/04/20 09:37 10 MG Fentanyl Citrate 55 ml @ 0 mls/hr CONT PRN 07/04/20 14:45 07/15/20 17:01 2 MLS/HR Furosemide (Lasix) 40 mg 1X ONCE 07/05/20 13:30 07/05/20 13:31 DC 07/05/20 14:17 40 MG Heparin Sodium (Porcine) (Heparin Sodium) 1,250 unit PRN Q6HRS PRN 07/04/20 12:00 07/05/20 18:27 1,250 UNIT Heparin Sodium/ Dextrose 250 ml @ 0 mls/hr CONT PRN 07/04/20 12:00 07/15/20 02:09 14.9 MLS/HR Info (Anti-Coagulation Monitoring By Pharmacy) 1 each PRN DAILY PRN 07/16/20 08:15 Info (CONTRAST GIVEN -- Rx MONITORING) 1 each PRN DAILY PRN 07/03/20 20:45 07/05/20 20:44 DC Insulin Human Lispro (HumaLOG) 0-9 UNITS Q6HRS 07/13/20 12:00 07/16/20 05:28 7 UNITS Iohexol (Omnipaque 350 Mg/ml) 90 ml 1X ONCE 07/03/20 20:45 07/03/20 20:46 DC 07/03/20 21:00 90 ML Methylprednisolone Sodium Succinate (SOLU-Medrol 40MG VIAL) 40 mg Q12HR 07/14/20 21:00 07/15/20 21:09 40 MG Midazolam HCl (Versed) 5 mg STK-MED ONCE 07/04/20 09:21 07/04/20 09:21 DC Morphine Sulfate (Morphine Sulfate) 2 mg PRN Q2HR PRN 07/03/20 22:30 07/04/20 22:29 DC Norepinephrine Bitartrate 8 mg/ Dextrose 258 ml @ 16.061 mls/ hr CONT PRN 07/04/20 13:15 07/05/20 00:33 28.909 MLS/HR Ondansetron HCl (Zofran) 4 mg PRN Q8HRS PRN 07/03/20 22:30 07/04/20 22:29 DC Pantoprazole Sodium (PROTONIX VIAL for IV PUSH) 40 mg DAILYAC 07/04/20 12:30 07/15/20 10:36 40 MG Piperacillin Sod/ Tazobactam Sod (Zosyn Per Pharmacy) 1 each PRN DAILY PRN 07/04/20 12:00 Piperacillin Sod/ Tazobactam Sod 3.375 gm/Sodium Chloride 50 ml @ 100 mls/hr Q6HRS 07/04/20 12:00 07/16/20 05:06 100 MLS/HR Propofol 100 ml @ 0 mls/hr CONT PRN 07/04/20 09:15 07/12/20 11:34 10 MLS/HR Remdesivir 100 mg/ Sodium Chloride 230 ml @ 460 mls/hr Q24H 07/07/20 14:30 07/10/20 14:59 DC 07/10/20 13:59 460 MLS/HR Remdesivir 200 mg/ Sodium Chloride 210 ml @ 210 mls/hr 1X ONCE 07/06/20 14:30 07/06/20 15:29 DC 07/06/20 14:51 210 MLS/HR Sodium Chloride 1,000 ml @ 100 mls/hr Q10H 07/03/20 23:00 07/04/20 22:59 DC 07/05/20 00:35 100 MLS/HR Succinylcholine Chloride (Anectine) 200 mg 1X ONCE 07/04/20 09:30 07/04/20 09:31 DC 07/04/20 09:38 200 MG Throat Lozenges (Cepacol Sore Throat Lozenge) 1 lety PRN Q2HRS PRN 07/04/20 01:15 Vecuronium [place] 50 mg/ Miscellaneous 50 ml @ 4.094 mls/ hr CONT PRN 07/12/20 14:45 07/15/20 21:09 5.118 MLS/HR Vecuronium [place] (Norcuron Bolus) 6 mg Q4H PRN 07/04/20 16:45 07/12/20 13:03 6 MG Vitamin D (Vitamin D3) 5,000 unit DAILY 07/05/20 09:00 07/15/20 09:00 5,000 UNIT Zinc Sulfate (Orazinc) 220 mg DAILY 07/05/20 09:00 07/15/20 09:00 220 MG Labs: Lab Laboratory Tests Test 07/15/20 13:30 07/15/20 17:12 07/15/20 20:00 07/16/20 00:34 Heparin Anti-Xa Act, Unfractionated 0.88 IU/mL (0.30-0.70) 0.47 IU/mL (0.30-0.70) Glucose (Fingerstick) 274 mg/dL (70-99) 258 mg/dL (70-99) Test 07/16/20 05:00 07/16/20 05:24 Heparin Anti-Xa Act, Unfractionated 0.38 IU/mL (0.30-0.70) Glucose (Fingerstick) 237 mg/dL (70-99) Objective: Assessment: 1. COVID-19 positive. 2. Respiratory failure. 3. Bilateral pulmonary emboli. 4. Hypertension. 5. Leukocytosis. Plan: Plan of Care Continue supportive care Steroids Status post remdesivir JAMI Ibanez MD Jul 16, 2020 08:20
--- NOTE | 2020-07-16 08:27 | PDOC ---
PULMONARY PROGRESS NOTES DATE: 07/16/20 TIME: 08:27 Subjective increase 02 need, on vent pressure control peep 6 fio2 70% on versed fentanyl vec gtt mod ett secretion Afebrile overnight Vitals Vital Signs Date Time Temp Pulse Resp B/P (MAP) Pulse Ox O2 Delivery O2 Flow Rate FiO2 07/16/20 06:00 107 32 155/96 (115) 92 Ventilator 07/16/20 04:00 98.7 98.7 07/15/20 17:31 15.0 Comments Patient seen during COVID pandemic visual exam performed Intubated/sedated NC AT RRR no Accessory muscle use No obvious rash or edema Lungs: Other (orally intubated, clear ) Labs Laboratory Tests Test 07/14/20 08:48 07/14/20 12:51 07/14/20 16:03 07/15/20 00:12 White Blood Count 14.9 x10^3/uL (4.0-11.0) Red Blood Count 3.30 x10^6/uL (4.30-5.70) Hemoglobin 10.9 g/dL (13.0-17.5) Hematocrit 32.9 % (39.0-53.0) Mean Corpuscular Volume 100 fL (79-100) Mean Corpuscular Hemoglobin 33 pg (25-35) Mean Corpuscular Hemoglobin Concent 33 g/dL (31-37) Red Cell Distribution Width 13.4 % (11.5-14.5) Platelet Count 177 x10^3/uL (140-400) Neutrophils (%) (Auto) 91 % (31-73) Lymphocytes (%) (Auto) 3 % (24-48) Monocytes (%) (Auto) 6 % (0-9) Eosinophils (%) (Auto) 0 % (0-3) Basophils (%) (Auto) 0 % (0-3) Neutrophils # (Auto) 13.6 x10^3/uL (1.8-7.7) Lymphocytes # (Auto) 0.4 x10^3/uL (1.0-4.8) Monocytes # (Auto) 0.9 x10^3/uL (0.0-1.1) Eosinophils # (Auto) 0.0 x10^3/uL (0.0-0.7) Basophils # (Auto) 0.0 x10^3/uL (0.0-0.2) Segmented Neutrophils % 94 % (35-66) Band Neutrophils % 1 % (0-9) Lymphocytes % 3 % (24-48) Monocytes % 2 % (0-10) Platelet Estimate Adequate (ADEQUATE) Sodium Level 134 mmol/L (136-145) Potassium Level 4.9 mmol/L (3.5-5.1) Chloride Level 97 mmol/L (98-107) Carbon Dioxide Level 34 mmol/L (21-32) Anion Gap 3 (6-14) Blood Urea Nitrogen 20 mg/dL (8-26) Creatinine 0.7 mg/dL (0.7-1.3) Estimated GFR (Cockcroft-Gault) 119.4 Glucose Level 227 mg/dL (70-99) Calcium Level 8.2 mg/dL (8.5-10.1) Glucose (Fingerstick) 238 mg/dL (70-99) 229 mg/dL (70-99) 265 mg/dL (70-99) Test 07/15/20 05:30 07/15/20 05:39 07/15/20 07:40 07/15/20 13:30 Heparin Anti-Xa Act, Unfractionated 0.19 IU/mL (0.30-0.70) 0.88 IU/mL (0.30-0.70) Glucose (Fingerstick) 236 mg/dL (70-99) O2 Saturation 90 % (92-99) Arterial Blood pH 7.56 (7.35-7.45) Arterial Blood pCO2 at Patient Temp 32 mmHg (35-46) Arterial Blood pO2 at Patient Temp 56 mmHg (75-108) Arterial Blood HCO3 28 mmol/L (21-28) Arterial Blood Base Excess 6 mmol/L (-3-3) FiO2 80 Test 07/15/20 17:12 07/15/20 20:00 07/16/20 00:34 07/16/20 05:00 Glucose (Fingerstick) 274 mg/dL (70-99) 258 mg/dL (70-99) Heparin Anti-Xa Act, Unfractionated 0.47 IU/mL (0.30-0.70) 0.38 IU/mL (0.30-0.70) Test 07/16/20 05:24 Glucose (Fingerstick) 237 mg/dL (70-99) Laboratory Tests Test 07/15/20 13:30 07/15/20 17:12 07/15/20 20:00 07/16/20 00:34 Heparin Anti-Xa Act, Unfractionated 0.88 IU/mL (0.30-0.70) 0.47 IU/mL (0.30-0.70) Glucose (Fingerstick) 274 mg/dL (70-99) 258 mg/dL (70-99) Test 07/16/20 05:00 07/16/20 05:24 Heparin Anti-Xa Act, Unfractionated 0.38 IU/mL (0.30-0.70) Glucose (Fingerstick) 237 mg/dL (70-99) Comments CXR 07/12 reviewed 1. Stable life support devices. 2. Stable bilateral perihilar and basilar opacities. Impression . IMPRESSION: 1. Acute hypoxemic respiratory failure. 2. Acute pulmonary embolism with cor pulmonale. 3. Possible COVID-19. 4. Ab[address] CT chest revealing ground glass opacities. 5. Hypertension. 6. History of bronchitis. 7. Elevated troponin. 8. Acute kidney injury. 9. Leukocytosis. 10. Covid-19 positive Plan . Continue current ventilatory support, patient placed on pressure control with a pressure control, rr 32, will wean FiO2 as tolerated, now on 70% try to change to vec prn from gtt f possible Follow chest x-ray and ABG, Continue adequate sedation, currently on vecuronium drip Follow cardiology recommendations Antibiotics per ID--Zosyn,cont. full course of remdesivir Continue heparin drip for pulmonary embolism increase solumedrol to bid continue tube feeding for nutritional support DVT/GI prophylaxis, heparin drip/ Protonix Discussed with RN and RT critically ill Critical care time30 min no overlap ALVIN RAMSEY MD Jul 16, 2020 08:27
[2020-07-16 09:33] LABS: BASE EXCESS ABG -1 mmol/L (-3-3); HCO3 ABG 22 mmol/L (21-28); PCO2 ABG 29 mmHg (35-46); PO2 ABG 79 mmHg (75-108); SAT O2 ABG 95 % (92-99)
[2020-07-16] MEDS: ANTI-COAG MONITOR BY PHARMACY. MC PRN ×2 (09:44→09:46)
[2020-07-16] MEDS: methylPREDNISolone SOD SUCC PF 40 MG/ML VIAL. IV SCH (09:57)
[2020-07-16] MEDS: PANTOPRAZOLE IV PUSH 40 MG VIAL. IVP SCH (09:57)
[2020-07-16] MEDS: CHOLECALCIFEROL (VITAMIN D3) 5,000 UNIT CAPSULE PO SCH (09:57)
[2020-07-16] MEDS: ZINC SULFATE 220 MG CAPSULE. PO SCH (09:57)
[2020-07-16 10:00] LABS: FIO2 ABG 80% VENT
[2020-07-16 10:16] LABS: BASO % 0 % (0-3); EOS % 0 % (0-3); HEMATOCRIT 32.4 % (39.0-53.0); HEMOGLOBIN 10.8 g/dL (13.0-17.5); LYMPH # 1.3 x10^3/uL (1.0-4.8); LYMPH % 8 % (24-48); MEAN CORPUSCULAR HEMOGLOBIN 33 pg (25-35); MEAN CORPUSCULAR HGB CONC 33 g/dL (31-37); MEAN CORPUSCULAR VOLUME 99 fL (79-100); MONO # 1.2 x10^3/uL (0.0-1.1); MONO % 8 % (0-9); NEUT # 12.8 x10^3/uL (1.8-7.7); NEUT % 83 % (31-73); PLATELET COUNT 191 x10^3/uL (140-400); RED BLOOD COUNT 3.28 x10^6/uL (4.30-5.70); RED CELL DISTRIBUTION WIDTH 13.6 % (11.5-14.5); WHITE BLOOD COUNT 15.3 x10^3/uL (4.0-11.0)
[2020-07-16 10:22] LABS: CALCIUM 7.8 mg/dL (8.5-10.1); CREATININE 0.7 mg/dL (0.7-1.3); GFR 119.4
--- NOTE | 2020-07-16 10:28 | NUR ---
SS following up with discharge planning. SS reviewed pt chart and discussed with pt RN. Pt is currently on the vent at 80%. Pt on IV Zosyn. COVID19 positive. Not stable. Self pay. SS will continue to follow for discharge planning.
[2020-07-16] MEDS: VECURONIUM BROMIDE 50 MG in TOTAL VOLUME 50 ML IV PRN (11:43)
--- NOTE | 2020-07-16 12:14 | PDOC ---
PULMONARY PROGRESS NOTES DATE: 07/16/20 TIME: 12:10 Subjective PT. remains on vent support in PC-AC Fi02 80% afebrile overnight on vec gtt and heparin gtt no concerns from nursing Vitals Vital Signs Date Time Temp Pulse Resp B/P (MAP) Pulse Ox O2 Delivery O2 Flow Rate FiO2 07/16/20 11:47 95 Ventilator 07/16/20 10:00 68 32 138/81 (100) 07/16/20 08:00 98.8 98.8 07/15/20 17:31 15.0 Comments Patient seen during pandemic visual exam performed Intubated/sedated RRR no Accessory muscle use No obvious rash or edema Lungs: Other (orally intubated, clear ) Labs Laboratory Tests Test 07/14/20 12:51 07/14/20 16:03 07/15/20 00:12 07/15/20 05:30 Glucose (Fingerstick) 238 mg/dL (70-99) 229 mg/dL (70-99) 265 mg/dL (70-99) Heparin Anti-Xa Act, Unfractionated 0.19 IU/mL (0.30-0.70) Test 07/15/20 05:39 07/15/20 07:40 07/15/20 13:30 07/15/20 17:12 Glucose (Fingerstick) 236 mg/dL (70-99) 274 mg/dL (70-99) O2 Saturation 90 % (92-99) Arterial Blood pH 7.56 (7.35-7.45) Arterial Blood pCO2 at Patient Temp 32 mmHg (35-46) Arterial Blood pO2 at Patient Temp 56 mmHg (75-108) Arterial Blood HCO3 28 mmol/L (21-28) Arterial Blood Base Excess 6 mmol/L (-3-3) FiO2 80 Heparin Anti-Xa Act, Unfractionated 0.88 IU/mL (0.30-0.70) Test 07/15/20 20:00 07/16/20 00:34 07/16/20 05:00 07/16/20 05:24 Heparin Anti-Xa Act, Unfractionated 0.47 IU/mL (0.30-0.70) 0.38 IU/mL (0.30-0.70) Glucose (Fingerstick) 258 mg/dL (70-99) 237 mg/dL (70-99) Test 07/16/20 08:30 07/16/20 09:30 07/16/20 11:22 White Blood Count 15.3 x10^3/uL (4.0-11.0) Red Blood Count 3.28 x10^6/uL (4.30-5.70) Hemoglobin 10.8 g/dL (13.0-17.5) Hematocrit 32.4 % (39.0-53.0) Mean Corpuscular Volume 99 fL (79-100) Mean Corpuscular Hemoglobin 33 pg (25-35) Mean Corpuscular Hemoglobin Concent 33 g/dL (31-37) Red Cell Distribution Width 13.6 % (11.5-14.5) Platelet Count 191 x10^3/uL (140-400) Neutrophils (%) (Auto) 83 % (31-73) Lymphocytes (%) (Auto) 8 % (24-48) Monocytes (%) (Auto) 8 % (0-9) Eosinophils (%) (Auto) 0 % (0-3) Basophils (%) (Auto) 0 % (0-3) Neutrophils # (Auto) 12.8 x10^3/uL (1.8-7.7) Lymphocytes # (Auto) 1.3 x10^3/uL (1.0-4.8) Monocytes # (Auto) 1.2 x10^3/uL (0.0-1.1) Eosinophils # (Auto) 0.0 x10^3/uL (0.0-0.7) Basophils # (Auto) 0.0 x10^3/uL (0.0-0.2) Sodium Level 133 mmol/L (136-145) Potassium Level 4.0 mmol/L (3.5-5.1) Chloride Level 100 mmol/L (98-107) Carbon Dioxide Level 27 mmol/L (21-32) Anion Gap 6 (6-14) Blood Urea Nitrogen 21 mg/dL (8-26) Creatinine 0.7 mg/dL (0.7-1.3) Estimated GFR (Cockcroft-Gault) 119.4 Glucose Level 227 mg/dL (70-99) Calcium Level 7.8 mg/dL (8.5-10.1) O2 Saturation 95 % (92-99) Arterial Blood pH 7.49 (7.35-7.45) Arterial Blood pCO2 at Patient Temp 29 mmHg (35-46) Arterial Blood pO2 at Patient Temp 79 mmHg (75-108) Arterial Blood HCO3 22 mmol/L (21-28) Arterial Blood Base Excess -1 mmol/L (-3-3) FiO2 80% vent Glucose (Fingerstick) 227 mg/dL (70-99) Laboratory Tests Test 07/15/20 13:30 07/15/20 17:12 07/15/20 20:00 07/16/20 00:34 Heparin Anti-Xa Act, Unfractionated 0.88 IU/mL (0.30-0.70) 0.47 IU/mL (0.30-0.70) Glucose (Fingerstick) 274 mg/dL (70-99) 258 mg/dL (70-99) Test 07/16/20 05:00 07/16/20 05:24 07/16/20 08:30 07/16/20 09:30 Heparin Anti-Xa Act, Unfractionated 0.38 IU/mL (0.30-0.70) Glucose (Fingerstick) 237 mg/dL (70-99) White Blood Count 15.3 x10^3/uL (4.0-11.0) Red Blood Count 3.28 x10^6/uL (4.30-5.70) Hemoglobin 10.8 g/dL (13.0-17.5) Hematocrit 32.4 % (39.0-53.0) Mean Corpuscular Volume 99 fL (79-100) Mean Corpuscular Hemoglobin 33 pg (25-35) Mean Corpuscular Hemoglobin Concent 33 g/dL (31-37) Red Cell Distribution Width 13.6 % (11.5-14.5) Platelet Count 191 x10^3/uL (140-400) Neutrophils (%) (Auto) 83 % (31-73) Lymphocytes (%) (Auto) 8 % (24-48) Monocytes (%) (Auto) 8 % (0-9) Eosinophils (%) (Auto) 0 % (0-3) Basophils (%) (Auto) 0 % (0-3) Neutrophils # (Auto) 12.8 x10^3/uL (1.8-7.7) Lymphocytes # (Auto) 1.3 x10^3/uL (1.0-4.8) Monocytes # (Auto) 1.2 x10^3/uL (0.0-1.1) Eosinophils # (Auto) 0.0 x10^3/uL (0.0-0.7) Basophils # (Auto) 0.0 x10^3/uL (0.0-0.2) Sodium Level 133 mmol/L (136-145) Potassium Level 4.0 mmol/L (3.5-5.1) Chloride Level 100 mmol/L (98-107) Carbon Dioxide Level 27 mmol/L (21-32) Anion Gap 6 (6-14) Blood Urea Nitrogen 21 mg/dL (8-26) Creatinine 0.7 mg/dL (0.7-1.3) Estimated GFR (Cockcroft-Gault) 119.4 Glucose Level 227 mg/dL (70-99) Calcium Level 7.8 mg/dL (8.5-10.1) O2 Saturation 95 % (92-99) Arterial Blood pH 7.49 (7.35-7.45) Arterial Blood pCO2 at Patient Temp 29 mmHg (35-46) Arterial Blood pO2 at Patient Temp 79 mmHg (75-108) Arterial Blood HCO3 22 mmol/L (21-28) Arterial Blood Base Excess -1 mmol/L (-3-3) FiO2 80% vent Test 07/16/20 11:22 Glucose (Fingerstick) 227 mg/dL (70-99) Comments CXR 07/16 reviewed 1. Stable life support devices. 2. Stable bilateral perihilar and basilar opacities. Impression . IMPRESSION: 1. Acute hypoxemic respiratory failure. 2. Acute pulmonary embolism with cor pulmonale. 3. Possible COVID-19. 4. Ab[address] CT chest revealing ground glass opacities. 5. Hypertension. 6. History of bronchitis. 7. Elevated troponin. 8. Acute kidney injury. 9. Leukocytosis. 10. Covid-19 positive Plan . Continue current ventilatory support, on pressure control with a pressure control of 36,and Fi02 of 80% Follow chest x-ray and ABG, will reduce Resp. rate to 28 and Pressure control to 28 Continue adequate sedation, currently on vecuronium drip Follow cardiology recommendations Antibiotics per ID--Zosyn,has completed full course of remdesivir D/C heparin drip, start eliquis cont. steroids now on daily dosing continue tube feeding for nutritional support DVT/GI prophylaxis, on full dose AC/ Protonix Discussed with RN and RT Pt. is FULL CODE Critical Care Time 30min, reviewing labs, diagnostics and discussing with care team NERY SALINAS MD Jul 16, 2020 12:14
[2020-07-16] MEDS: APIXABAN 5 MG TABLET. PO SCH ×2 (12:20→20:11)
--- NOTE | 2020-07-16 12:40 | RAD ---
CHEST AP ONLY INDICATION: resp. failure COVID COMPARISON STUDY: 07/12/2020. FINDINGS: Life Support Devices: Stable endotracheal tube, enteric tube, right PICC. Lungs: Normal lung volume. Stable bilateral perihilar and basilar allergies opacities. Normal pulmonary vasculature. Pleura: Stable pleural spaces. Heart and Mediastinum: Stable cardiomediastinal silhouette and great vessels. Bones and Soft Tissues: Stable regional skeleton and soft tissues. IMPRESSION: 1. Stable bilateral perihilar and basilar opacities. 2. Stable life support devices. Electronically signed by: Chase Bradshaw MD (07/16/2020 12:37 PM) [id number]
[2020-07-16] MEDS ORDERED: methylPREDNISolone SOD SUCC PF 40 MG/ML VIAL. IV SCH (13:00)
[2020-07-16] MEDS: PROPOFOL 100 ML IV PRN ×3 (13:25→22:17)
[2020-07-16] MEDS: fentaNYL HIGH DOSE PCA 55 ML IV PRN (19:03)
[2020-07-17] VITALS (24 sets, daily range): BP systolic 87–162; BP diastolic 54–101
[2020-07-17] MEDS: PIPERACILLIN/TAZOBACTAM 3.375 GM in IV NORMAL SALINE 50ML 50 ML IV SCH ×2 (00:09→05:10)
[2020-07-17] MEDS: ASCORBIC ACID 500 MG TABLET PO SCH ×4 (00:09→17:47)
[2020-07-17] MEDS: MIDAZOLAM 100mg/100ml NS BAG 100 ML IV PRN ×3 (00:10→19:36)
[2020-07-17] MEDS: INSULIN LISPRO 300 UNITS/3 ML VIAL. SQ SCH ×4 (00:11→17:50)
[2020-07-17] MEDS: PROPOFOL 100 ML IV PRN ×5 (01:09→21:33)
[2020-07-17] MEDS: PANTOPRAZOLE IV PUSH 40 MG VIAL. IVP SCH (07:30)
--- NOTE | 2020-07-17 08:31 | PDOC ---
PROGRESS NOTES Date of Service: DATE: 07/17/20 TIME: 08:25 Chief Complaint Chief Complaint Acute hypoxic respiratory failure requiring intubation COVID-19 PUI Subsegmental bilateral PE Leukocytosis NSTEMI AKA Lactic acidosis Hyponatremia Plan: Appreciate pulmonology recommendations Continue current ventilatory support, currently on 80% and PEEP of 6, avoid increasing PEEP 2/2 risk of barotrauma Follow chest x-ray and ABG, vent management as per pulmonology Heparin infusion will address bilateral PEs and NSTEMI, monitor for bleeding. Solu-Medrol 40 mg every 12 hours Appreciate ID recommendationscontinue Remdesivir and empiric antibiotics IV fluids I discussed code status with niece over the phone yesterday evening, continues to be a full code. Patient prognosis and current state was explained at length as well. All concerns addressed to the best of my abilities. A total of 45 was spent in reviewing chart, labs, and images. Discussed with RN and SW. History of Present Illness History of Present Illness 07/16/2020 Patient with no acute events reported overnight, patient continues to require quite a bit of FiO2 at 80%. Vent management as per toy consultant, will place a call to family members after rounding. Discussed with RN 07/15/2020 Patient seen and examined bedside in the ICU. FiO2 80% PEEP of 6.pH 7.56, PCO2 32, PO2 56, HCO3 28. Will adjust respiratory rate accordingly to correct pH.> 50% time spent in patient chart, labs, and imaging review and in discussion with RN and SW 07/14/2020 Patient seen and examined bedside. FiO2 65% and PEEP of 6 on vent. ABG: pH 7.26, PCO2 77, PO2 114, HCO3 34. We will adjust respiratory rate or tidal volume to titrate pH.> 50% time spent in patient chart, labs, and imaging review and in discussion with RN and SW 07/13/2020 No acute events overnight. Patient examined bedside sedated and intubated. FiO2 70% PEEP of 6. Improved ABGs.> 50% time spent in patient chart, labs, and imaging review and in discussion with RN and SW 07/12/2020 Patient seen and examined in the ICU. Sedated and intubated. FiO2 65, PEEP of 8 with improved oxygenation. pH 7.4, PCO2 48, PO2 94, HCO3 30. +500 cc fluid balance.> 50% time spent in patient chart, labs, and imaging review and in discussion with RN and JAVIER 07/11/2020 Patient seen and examined bedside in the ICU. Patient continues to be intubated and sedated. FiO2 75%, PEEP of 10. pH 7.40, PCO2 44, PO2 is 135, HCO3 26. Can likely decrease FiO2 due to improved oxygenation. +173 cc in the past 24 hours 07/10/2020 Patient seen and examined bedside in ICU. Patient is intubated and sedated. FiO2 90%, PEEP of 10, respiratory rate of 30. ABG: pH is 7.41, PCO2 42, PO2 113, HCO3 26. 07/09/2020 Patient seen and examined in the ICU. Intubated and sedated. Vent settings FiO2 90%, PEEP of 10, respiratory rate of 30. 07/05: Patient seen in ICU, still intubated and sedated. COVID-19 pending. Patient remains on heparin infusion. Discussed with RN, will try to have central line placed per anesthesia. 07/06: Patient seen in ICU. Still FiO2 100% on vent and sedated. COVID-19 positive. Continue heparin infusion, Zosyn, steroids. 07/07: Covid positive patient seen in ICU. On vent with FiO2 100%, PEEP 10. Continue remdesivir, steroids, Zosyn. Continue to monitor 07/08: Patient seen in Covid ICU. Still on vent with FiO2 100%, PEEP 10. Afebrile. No acute events overnight. Continue steroids, antibiotics, and remdesivir. Patient is 49-year-old male with past medical history of hypertension, who presents to the ED with complaints of worsening shortness of breath over the past 5 days. Associated sore throat, fatigue, and generalized weakness. Patient was reportedly tested for COVID-19 last Thursday, but he had negative test results. His symptoms acutely worsened yesterday. Upon arrival to the ER his oxygen saturation was 60% on room air. He was placed on BiPAP and admitted to the ICU. Patient was subsequently intubated due to worsening respiratory failure. Vitals Vitals Vital Signs Date Time Temp Pulse Resp B/P (MAP) Pulse Ox O2 Delivery O2 Flow Rate FiO2 07/17/20 08:00 98.0 46 30 92/59 (70) 97 Ventilator 98.0 07/16/20 19:03 15.0 Physical Exam Physical Exam GENERAL: Sedated, orally intubated gentleman, not in any distress. VITAL SIGNS: Stable HEENT: Both pupils are round and reacting. No conjunctival lesion. Mouth cannot be visualized as orally intubated. NECK: Supple. No JVP, no lymphadenopathy. LUNGS: Clear. Decreased breath sounds. HEART: S1, S2 regular. No gallop or murmur. ABDOMEN: Soft, nontender. No organomegaly. EXTREMITIES: No edema or cyanosis. SKIN: Unremarkable. NEUROLOGIC: The patient is not able to; the patient is currently sedated, so unable to check pilot. General: Other (Sedated and intubated) Heart: Regular rate (SR/ST) Lungs: Other (orally intubated, clear ) Abdomen: Other (Nondistended) Extremities: No clubbing, No cyanosis Skin: No rashes, No breakdown Labs LABS Laboratory Tests Test 07/16/20 08:30 07/16/20 09:30 07/16/20 11:22 07/16/20 16:34 White Blood Count 15.3 x10^3/uL (4.0-11.0) Red Blood Count 3.28 x10^6/uL (4.30-5.70) Hemoglobin 10.8 g/dL (13.0-17.5) Hematocrit 32.4 % (39.0-53.0) Mean Corpuscular Volume 99 fL (79-100) Mean Corpuscular Hemoglobin 33 pg (25-35) Mean Corpuscular Hemoglobin Concent 33 g/dL (31-37) Red Cell Distribution Width 13.6 % (11.5-14.5) Platelet Count 191 x10^3/uL (140-400) Neutrophils (%) (Auto) 83 % (31-73) Lymphocytes (%) (Auto) 8 % (24-48) Monocytes (%) (Auto) 8 % (0-9) Eosinophils (%) (Auto) 0 % (0-3) Basophils (%) (Auto) 0 % (0-3) Neutrophils # (Auto) 12.8 x10^3/uL (1.8-7.7) Lymphocytes # (Auto) 1.3 x10^3/uL (1.0-4.8) Monocytes # (Auto) 1.2 x10^3/uL (0.0-1.1) Eosinophils # (Auto) 0.0 x10^3/uL (0.0-0.7) Basophils # (Auto) 0.0 x10^3/uL (0.0-0.2) Sodium Level 133 mmol/L (136-145) Potassium Level 4.0 mmol/L (3.5-5.1) Chloride Level 100 mmol/L (98-107) Carbon Dioxide Level 27 mmol/L (21-32) Anion Gap 6 (6-14) Blood Urea Nitrogen 21 mg/dL (8-26) Creatinine 0.7 mg/dL (0.7-1.3) Estimated GFR (Cockcroft-Gault) 119.4 Glucose Level 227 mg/dL (70-99) Calcium Level 7.8 mg/dL (8.5-10.1) O2 Saturation 95 % (92-99) Arterial Blood pH 7.49 (7.35-7.45) Arterial Blood pCO2 at Patient Temp 29 mmHg (35-46) Arterial Blood pO2 at Patient Temp 79 mmHg (75-108) Arterial Blood HCO3 22 mmol/L (21-28) Arterial Blood Base Excess -1 mmol/L (-3-3) FiO2 80% vent Glucose (Fingerstick) 227 mg/dL (70-99) 202 mg/dL (70-99) Test 07/16/20 23:56 07/17/20 06:07 Glucose (Fingerstick) 260 mg/dL (70-99) 208 mg/dL (70-99) Assessment and Plan Assessmemt and Plan Problems Medical Problems: (1) Acute respiratory failure with hypoxia Status: Acute (2) PRIYA (acute kidney injury) Status: Acute (3) Elevated troponin I level Status: Acute (4) Pulmonary emboli Status: Acute (5) Suspected COVID-19 virus infection Status: Acute Comment Review of Relevant I have reviewed the following items trino (where applicable) has been applied. Labs Laboratory Tests Test 07/15/20 13:30 07/15/20 17:12 07/15/20 20:00 07/16/20 00:34 Heparin Anti-Xa Act, Unfractionated 0.88 IU/mL (0.30-0.70) 0.47 IU/mL (0.30-0.70) Glucose (Fingerstick) 274 mg/dL (70-99) 258 mg/dL (70-99) Test 07/16/20 05:00 07/16/20 05:24 07/16/20 08:30 07/16/20 09:30 Heparin Anti-Xa Act, Unfractionated 0.38 IU/mL (0.30-0.70) Glucose (Fingerstick) 237 mg/dL (70-99) White Blood Count 15.3 x10^3/uL (4.0-11.0) Red Blood Count 3.28 x10^6/uL (4.30-5.70) Hemoglobin 10.8 g/dL (13.0-17.5) Hematocrit 32.4 % (39.0-53.0) Mean Corpuscular Volume 99 fL (79-100) Mean Corpuscular Hemoglobin 33 pg (25-35) Mean Corpuscular Hemoglobin Concent 33 g/dL (31-37) Red Cell Distribution Width 13.6 % (11.5-14.5) Platelet Count 191 x10^3/uL (140-400) Neutrophils (%) (Auto) 83 % (31-73) Lymphocytes (%) (Auto) 8 % (24-48) Monocytes (%) (Auto) 8 % (0-9) Eosinophils (%) (Auto) 0 % (0-3) Basophils (%) (Auto) 0 % (0-3) Neutrophils # (Auto) 12.8 x10^3/uL (1.8-7.7) Lymphocytes # (Auto) 1.3 x10^3/uL (1.0-4.8) Monocytes # (Auto) 1.2 x10^3/uL (0.0-1.1) Eosinophils # (Auto) 0.0 x10^3/uL (0.0-0.7) Basophils # (Auto) 0.0 x10^3/uL (0.0-0.2) Sodium Level 133 mmol/L (136-145) Potassium Level 4.0 mmol/L (3.5-5.1) Chloride Level 100 mmol/L (98-107) Carbon Dioxide Level 27 mmol/L (21-32) Anion Gap 6 (6-14) Blood Urea Nitrogen 21 mg/dL (8-26) Creatinine 0.7 mg/dL (0.7-1.3) Estimated GFR (Cockcroft-Gault) 119.4 Glucose Level 227 mg/dL (70-99) Calcium Level 7.8 mg/dL (8.5-10.1) O2 Saturation 95 % (92-99) Arterial Blood pH 7.49 (7.35-7.45) Arterial Blood pCO2 at Patient Temp 29 mmHg (35-46) Arterial Blood pO2 at Patient Temp 79 mmHg (75-108) Arterial Blood HCO3 22 mmol/L (21-28) Arterial Blood Base Excess -1 mmol/L (-3-3) FiO2 80% vent Test 07/16/20 11:22 07/16/20 16:34 07/16/20 23:56 07/17/20 06:07 Glucose (Fingerstick) 227 mg/dL (70-99) 202 mg/dL (70-99) 260 mg/dL (70-99) 208 mg/dL (70-99) Laboratory Tests Test 07/16/20 08:30 07/16/20 09:30 07/16/20 11:22 07/16/20 16:34 White Blood Count 15.3 x10^3/uL (4.0-11.0) Red Blood Count 3.28 x10^6/uL (4.30-5.70) Hemoglobin 10.8 g/dL (13.0-17.5) Hematocrit 32.4 % (39.0-53.0) Mean Corpuscular Volume 99 fL (79-100) Mean Corpuscular Hemoglobin 33 pg (25-35) Mean Corpuscular Hemoglobin Concent 33 g/dL (31-37) Red Cell Distribution Width 13.6 % (11.5-14.5) Platelet Count 191 x10^3/uL (140-400) Neutrophils (%) (Auto) 83 % (31-73) Lymphocytes (%) (Auto) 8 % (24-48) Monocytes (%) (Auto) 8 % (0-9) Eosinophils (%) (Auto) 0 % (0-3) Basophils (%) (Auto) 0 % (0-3) Neutrophils # (Auto) 12.8 x10^3/uL (1.8-7.7) Lymphocytes # (Auto) 1.3 x10^3/uL (1.0-4.8) Monocytes # (Auto) 1.2 x10^3/uL (0.0-1.1) Eosinophils # (Auto) 0.0 x10^3/uL (0.0-0.7) Basophils # (Auto) 0.0 x10^3/uL (0.0-0.2) Sodium Level 133 mmol/L (136-145) Potassium Level 4.0 mmol/L (3.5-5.1) Chloride Level 100 mmol/L (98-107) Carbon Dioxide Level 27 mmol/L (21-32) Anion Gap 6 (6-14) Blood Urea Nitrogen 21 mg/dL (8-26) Creatinine 0.7 mg/dL (0.7-1.3) Estimated GFR (Cockcroft-Gault) 119.4 Glucose Level 227 mg/dL (70-99) Calcium Level 7.8 mg/dL (8.5-10.1) O2 Saturation 95 % (92-99) Arterial Blood pH 7.49 (7.35-7.45) Arterial Blood pCO2 at Patient Temp 29 mmHg (35-46) Arterial Blood pO2 at Patient Temp 79 mmHg (75-108) Arterial Blood HCO3 22 mmol/L (21-28) Arterial Blood Base Excess -1 mmol/L (-3-3) FiO2 80% vent Glucose (Fingerstick) 227 mg/dL (70-99) 202 mg/dL (70-99) Test 07/16/20 23:56 07/17/20 06:07 Glucose (Fingerstick) 260 mg/dL (70-99) 208 mg/dL (70-99) Microbiology 07/03/20 Blood Culture - Final, Complete NO GROWTH AFTER 5 DAYS Medications Current Medications Ceftriaxone Sodium (Rocephin) 1 gm 1X ONCE IVP Last administered on 07/03/20at 20:11; Start 07/03/20 at 19:15; Stop 07/03/20 at 19:19; Status DC Azithromycin (Zithromax) 500 mg 1X ONCE PO Last administered on 07/03/20at 20:11; Start 07/03/20 at 19:15; Stop 07/03/20 at 19:19; Status DC Sodium Chloride 1,000 ml @ 1,000 mls/hr 1X ONCE IV Last administered on 07/03at 20:11; Start 07/03/20 at 19:15; Stop 07/03/20 at 20:14; Status DC Sodium Chloride 1,000 ml @ 1,000 mls/hr 1X ONCE IV Last administered on 07/03/20at 19:15; Start 07/03/20 at 19:15; Stop 07/03/20 at 20:14; Status DC Iohexol (Omnipaque 350 Mg/ml) 90 ml 1X ONCE IV Last administered on 07/03/20at 21:00; Start 07/03/20 at 20:45; Stop 07/03/20 at 20:46; Status DC Info (CONTRAST GIVEN -- Rx MONITORING) 1 each PRN DAILY PRN MC SEE COMMENTS; Start 07/03/20 at 20:45; Stop 07/05/20 at 20:44; Status DC Enoxaparin Sodium (Lovenox 150mg Syringe) 150 mg 1X ONCE SQ Last administered on 07/03/20at 22:45; Start 07/03/20 at 23:00; Stop 07/03/20 at 23:01; Status DC Ondansetron HCl (Zofran) 4 mg PRN Q8HRS PRN IV NAUSEA/VOMITING 1ST CHOICE; Start 07/03/20 at 22:30; Stop 07/04/20 at 22:29; Status DC Morphine Sulfate (Morphine Sulfate) 2 mg PRN Q2HR PRN IV SEVERE PAIN 7-10; Start 07/03/20 at 22:30; Stop 07/04/20 at 22:29; Status DC Sodium Chloride 1,000 ml @ 100 mls/hr Q10H IV Last administered on 07/05/20at 00:35; Start 07/03/20 at 23:00; Stop 07/04/20 at 22:59; Status DC Acetaminophen (Tylenol) 650 mg PRN Q4HRS PRN PO FEVER > 100.3'F; Start 07/03/20 at 22:30; Stop 07/04/20 at 22:29; Status DC Throat Lozenges (Cepacol Sore Throat Lozenge) 1 lety PRN Q2HRS PRN PO SORE THROAT; Start 07/04/20 at 01:15 Furosemide (Lasix) 20 mg 1X ONCE IVP Last administered on 07/04/20at 10:10; Start 07/04/20 at 10:00; Stop 07/04/20 at 10:01; Status DC Succinylcholine Chloride (Anectine) 200 mg STK-MED ONCE .ROUTE ; Start 07/04/20 at 09:09; Stop 07/04/20 at 09:09; Status DC Etomidate (Amidate) 20 mg STK-MED ONCE IV ; Start 07/04/20 at 09:09; Stop 07/04/20 at 09:09; Status DC Fentanyl Citrate 30 ml @ 0 mls/hr CONT PRN IV SEE PROTOCOL Last administered on 07/04/20at 09:36; Start 07/04/20 at 09:15; Stop 07/04/20 at 14:36; Status DC Propofol 100 ml @ 0 mls/hr CONT PRN IV SEE PROTOCOL Last administered on 07/17/20at 05:11; Start 07/04/20 at 09:15 Midazolam HCl 100 ml @ 0 mls/hr CONT PRN IV SEE PROTOCOL Last administered on 07/17/20at 00:10; Start 07/04/20 at 09:15 Midazolam HCl (Versed) 5 mg 1X STAT IV Last administered on 07/04/20at 09:41; Start 07/04/20 at 09:21; Stop 07/04/20 at 09:22; Status DC Midazolam HCl (Versed) 5 mg STK-MED ONCE .ROUTE ; Start 07/04/20 at 09:21; Stop 07/04/20 at 09:21; Status DC Etomidate (Amidate) 10 mg 1X ONCE IV Last administered on 07/04/20at 09:37; Start 07/04/20 at 09:30; Stop 07/04/20 at 09:31; Status DC Succinylcholine Chloride (Anectine) 200 mg 1X ONCE IV Last administered on 07/04/20at 09:38; Start 07/04/20 at 09:30; Stop 07/04/20 at 09:31; Status DC Vecuronium [place] (Norcuron Bolus) 6 mg 1X ONCE IV Last administered on 07/04/20at 09:38; Start 07/04/20 at 09:45; Stop 07/04/20 at 09:46; Status DC Vecuronium [place] (Norcuron Bolus) 10 mg STK-MED ONCE IV ; Start 07/04/20 at 09:33; Stop 07/04/20 at 09:33; Status DC Pantoprazole Sodium (PROTONIX VIAL for IV PUSH) 40 mg DAILYAC IVP Last administered on 07/16/20at 09:57; Start 07/04/20 at 12:30 Methylprednisolone Sodium Succinate (SOLU-Medrol 40MG VIAL) 40 mg Q8HRS IV Last administered on 07/11/20at 05:41; Start 07/04/20 at 14:00; Stop 07/11/20 at 11:36; Status DC Piperacillin Sod/ Tazobactam Sod (Zosyn Per Pharmacy) 1 each PRN DAILY PRN MC SEE COMMENTS; Start 07/04/20 at 12:00 Heparin Sodium/ Dextrose 250 ml @ 0 mls/hr CONT PRN IV PER PROTOCOL Last administered on 07/15/20at 02:09; Start 07/04/20 at 12:00; Stop 07/16/20 at 12:09; Status DC Heparin Sodium (Porcine) (Heparin Sodium) 2,500 unit PRN Q6HRS PRN IV FOR UFH LEVEL LESS THAN 0.2 Last administered on 07/15/20at 09:19; Start 07/04/20 at 12:00; Stop 07/16/20 at 12:09; Status DC Heparin Sodium (Porcine) (Heparin Sodium) 1,250 unit PRN Q6HRS PRN IV FOR UFH LEVEL 0.2 - 0.29 Last administered on 07/05/20at 18:27; Start 07/04/20 at 12:00; Stop 07/16/20 at 12:09; Status DC Piperacillin Sod/ Tazobactam Sod 3.375 gm/Sodium Chloride 50 ml @ 100 mls/hr Q6HRS IV Last administered on 07/17/20at 05:10; Start 07/04/20 at 12:00 Zinc Sulfate (Orazinc) 220 mg DAILY PO Last administered on 07/16/20at 09:57; Start 07/05/20 at 09:00 Ascorbic Acid (Vitamin C) 500 mg Q6HRS PO Last administered on 07/17/20at 05:10; Start 07/04/20 at 18:00 Vitamin D (Vitamin D3) 5,000 unit DAILY PO Last administered on 07/16/20at 09:57; Start 07/05/20 at 09:00 Vecuronium [place] (Norcuron Bolus) 6 mg 1X ONCE IV Last administered on 07/04/20at 13:27; Start 07/04/20 at 13:15; Stop 07/04/20 at 13:16; Status DC Norepinephrine Bitartrate 8 mg/ Dextrose 258 ml @ 16.061 mls/ hr CONT PRN IV PER PROTOCOL Last administered on 07/05/20at 00:33; Start 07/04/20 at 13:15 Fentanyl Citrate 55 ml @ 0 mls/hr CONT PRN IV SEE PROTOCOL Last administered on 07/16/20at 19:03; Start 07/04/20 at 14:45 Vecuronium [place] (Norcuron Bolus) 6 mg Q4H PRN IV OVERBREATHING VENT/out of sync Last administered on 07/12/20at 13:03; Start 07/04/20 at 16:45 Furosemide (Lasix) 40 mg 1X ONCE IVP Last administered on 07/05/20at 14:17; Start 07/05/20 at 13:30; Stop 07/05/20 at 13:31; Status DC Insulin Human Lispro (HumaLOG) 0-5 UNITS Q6HRS SQ Last administered on 07/11/20at 05:42; Start 07/05/20 at 18:00; Stop 07/11/20 at 07:54; Status DC Dextrose (Dextrose 50%-Water Syringe) 12.5 gm PRN Q15MIN PRN IV SEE COMMENTS; Start 07/05/20 at 14:15 Insulin Human Lispro (HumaLOG) 2 units 1X ONCE SQ Last administered on 07/05/20at 14:19; Start 07/05/20 at 14:30; Stop 07/05/20 at 14:31; Status DC Remdesivir 200 mg/ Sodium Chloride 210 ml @ 210 mls/hr 1X ONCE IV Last administered on 07/06/20at 14:51; Start 07/06/20 at 14:30; Stop 07/06/20 at 15:29; Status DC Remdesivir 100 mg/ Sodium Chloride 230 ml @ 460 mls/hr Q24H IV Last administered on 07/10/20at 13:59; Start 07/07/20 at 14:30; Stop 07/10/20 at 14:59; Status DC Insulin Human Lispro (HumaLOG) 0-9 UNITS TIDWMEALS SQ Last administered on 07/12/20at 11:31; Start 07/11/20 at 08:00; Stop 07/13/20 at 10:17; Status DC Methylprednisolone Sodium Succinate (SOLU-Medrol 40MG VIAL) 40 mg DAILY IV Last administered on 07/14/20at 07:57; Start 07/12/20 at 09:00; Stop 07/14/20 at 09:26; Status DC Acetaminophen (Tylenol) 650 mg PRN Q6HRS PRN PEG MILD PAIN / TEMP > 100.3'F Last administered on 07/12/20at 12:11; Start 07/12/20 at 12:00 Vecuronium [place] 50 mg/ Miscellaneous 50 ml @ 4.094 mls/ hr CONT PRN IV SEE I/O RECORD Last administered on 07/16/20at 11:43; Start 07/12/20 at 14:45 Insulin Human Lispro (HumaLOG) 0-9 UNITS Q6HRS SQ Last administered on 07/17/20at 06:12; Start 07/13/20 at 12:00 Methylprednisolone Sodium Succinate (SOLU-Medrol 40MG VIAL) 40 mg Q12HR IV Last administered on 07/16/20at 09:57; Start 07/14/20 at 21:00; Stop 07/16/20 at 12:10; Status DC Info (Anti-Coagulation Monitoring By Pharmacy) 1 each PRN DAILY PRN MC SEE COMMENTS Last administered on 07/16/20at 09:46; Start 07/16/20 at 08:15 Apixaban (Eliquis) 10 mg BID PO Last administered on 07/16/20at 20:11; Start 07/16/20 at 13:00; Stop 07/22/20 at 21:01 Methylprednisolone Sodium Succinate (SOLU-Medrol 40MG VIAL) 40 mg DAILY IV Last administered on 07/16/20at 12:22; Start 07/16/20 at 13:00; Stop 07/17/20 at 08:23 Apixaban (Eliquis) 5 mg BID PO ; Start 07/23/20 at 09:00 Vitals/I & O Vital Sign - Last 24 Hours 07/16/20 07/16/20 07/16/20 07/16/20 09:00 10:00 11:00 11:47 Pulse 64 68 84 Resp 32 32 32 B/P (MAP) 104/60 (75) 138/81 (100) 149/92 (111) Pulse Ox 90 90 92 95 O2 Delivery Ventilator Ventilator Ventilator Ventilator 07/16/20 07/16/20 07/16/20 07/16/20 12:00 12:00 13:00 14:00 Temp 99.1 99.1 Pulse 102 86 72 Resp 32 32 32 B/P (MAP) 158/101 (120) 107/62 (77) 98/62 (74) Pulse Ox 90 92 92 O2 Delivery Ventilator Mechanical Ventilator Ventilator Ventilator 07/16/20 07/16/20 07/16/20 07/16/20 15:00 15:37 16:00 16:00 Temp 98.9 98.9 Pulse 58 Resp 32 B/P (MAP) 98/56 (70) Pulse Ox 92 97 O2 Delivery Ventilator Ventilator Mechanical Ventilator 07/16/20 07/16/20 07/16/20 07/16/20 16:00 17:00 18:00 19:00 Pulse 60 70 64 70 Resp 32 32 32 33 B/P (MAP) 106/65 (79) 104/64 (77) 107/64 (78) 101/59 (73) Pulse Ox 97 96 92 94 O2 Delivery Ventilator Ventilator Ventilator Ventilator 07/16/20 07/16/20 07/16/20 07/16/20 19:03 19:40 20:00 20:00 Temp 98.4 98.4 Pulse 65 Resp 33 32 B/P (MAP) 102/65 (77) Pulse Ox 92 95 O2 Delivery Ventilator Mechanical Ventilator Ventilator O2 Flow Rate 15.0 07/16/20 07/16/20 07/16/20 07/16/20 21:00 21:14 22:00 23:00 Pulse 60 56 52 Resp 32 32 32 B/P (MAP) 102/62 (75) 105/64 (78) 92/59 (70) Pulse Ox 94 95 95 96 O2 Delivery Ventilator Ventilator Ventilator Ventilator 07/17/20 07/17/20 07/17/20 07/17/20 00:00 00:00 01:00 01:42 Temp 97.7 97.7 Pulse 52 52 Resp 32 32 B/P (MAP) 99/61 (74) 97/59 (72) Pulse Ox 96 96 96 O2 Delivery Ventilator Mechanical Ventilator Ventilator Ventilator 07/17/20 07/17/20 07/17/20 07/17/20 02:00 03:00 04:00 04:00 Temp 97.8 97.8 Pulse 51 49 46 Resp 32 28 28 B/P (MAP) 98/60 (73) 94/57 (69) 96/60 (72) Pulse Ox 96 96 96 O2 Delivery Ventilator Ventilator Mechanical Ventilator Ventilator 07/17/20 07/17/20 07/17/20 07/17/20 05:00 05:36 06:00 07:00 Pulse 44 53 46 Resp 28 30 28 B/P (MAP) 101/62 (75) 93/57 (69) 100/58 (72) Pulse Ox 97 97 97 97 O2 Delivery Ventilator Ventilator Ventilator Ventilator 07/17/20 08:00 Temp 98.0 98.0 Pulse 46 Resp 30 B/P (MAP) 92/59 (70) Pulse Ox 97 O2 Delivery Ventilator Intake and Output 07/16/20 07/16/20 07/17/20 15:00 23:00 07:00 Intake Total 200 ml 1250 ml 1577 ml Output Total 600 ml 750 ml 1275 ml Balance -400 ml 500 ml 302 ml Justicifation of Admission Dx: Justifications for Admission: Justification of Admission Dx: Yes SCOTT RUSH MD Jul 17, 2020 08:31
[2020-07-17 08:59] LABS: BASE EXCESS ABG 5 mmol/L (-3-3); HCO3 ABG 29 mmol/L (21-28); PCO2 ABG 45 mmHg (35-46); PO2 ABG 94 mmHg (75-108); SAT O2 ABG 97 % (92-99)
[2020-07-17] MEDS: ZINC SULFATE 220 MG CAPSULE. PO SCH (09:00)
[2020-07-17] MEDS: CHOLECALCIFEROL (VITAMIN D3) 5,000 UNIT CAPSULE PO SCH (09:00)
[2020-07-17] MEDS: APIXABAN 5 MG TABLET. PO SCH ×2 (09:00→20:55)
[2020-07-17] MEDS: methylPREDNISolone SOD SUCC PF 40 MG/ML VIAL. IV SCH ×2 (09:00→20:55)
[2020-07-17 09:19] LABS: FIO2 ABG 80%+6
[2020-07-17] MEDS: ANTI-COAG MONITOR BY PHARMACY. MC PRN (09:20)
--- NOTE | 2020-07-17 09:48 | NUR ---
SS following up with discharge planning. SS reviewed pt chart and discussed with pt RN. Pt is currently on the vent at 80%. COVID19 positive. Pt on IV Zosyn. Full Code. Self pay. Not stable. SS will continue to follow for discharge planning.
--- NOTE | 2020-07-17 10:44 | PDOC ---
Infectious Disease Note Subjective: Subjective Sedated /intubated FiO2 80% 6 of PEEP Vital Signs: Vital Signs Vital Signs Date Time Temp Pulse Resp B/P (MAP) Pulse Ox O2 Delivery O2 Flow Rate FiO2 07/17/20 08:00 98.0 46 30 92/59 (70) 97 Ventilator 98.0 07/16/20 19:03 15.0 Physical Exam: PHYSICAL EXAM Visual exam done due to [place] pandemic General intubated LUNGS: Mechanical ventilation HEART: Regular rhythm ABDOMEN: Nondistended SKIN: No generalized rash Medications: Inpatient Meds: Current Medications Medications (Trade) Dose Ordered Sig/Natalee Start Time Stop Time Status Last Admin Dose Admin Acetaminophen (Tylenol) 650 mg PRN Q6HRS PRN 07/12/20 12:00 07/12/20 12:11 650 MG Apixaban (Eliquis) 5 mg BID 07/23/20 09:00 Ascorbic Acid (Vitamin C) 500 mg Q6HRS 07/04/20 18:00 07/17/20 05:10 500 MG Azithromycin (Zithromax) 500 mg 1X ONCE 07/03/20 19:15 07/03/20 19:19 DC 07/03/20 20:11 500 MG Ceftriaxone Sodium (Rocephin) 1 gm 1X ONCE 07/03/20 19:15 07/03/20 19:19 DC 07/03/20 20:11 1 GM Dextrose (Dextrose 50%-Water Syringe) 12.5 gm PRN Q15MIN PRN 07/05/20 14:15 Enoxaparin Sodium (Lovenox 150mg Syringe) 150 mg 1X ONCE 07/03/20 23:00 07/03/20 23:01 DC 07/03/20 22:45 150 MG Etomidate (Amidate) 10 mg 1X ONCE 07/04/20 09:30 07/04/20 09:31 DC 07/04/20 09:37 10 MG Fentanyl Citrate 55 ml @ 0 mls/hr CONT PRN 07/04/20 14:45 07/16/20 19:03 2 MLS/HR Furosemide (Lasix) 40 mg 1X ONCE 07/05/20 13:30 07/05/20 13:31 DC 07/05/20 14:17 40 MG Heparin Sodium (Porcine) (Heparin Sodium) 1,250 unit PRN Q6HRS PRN 07/04/20 12:00 07/16/20 12:09 DC 07/05/20 18:27 1,250 UNIT Heparin Sodium/ Dextrose 250 ml @ 0 mls/hr CONT PRN 07/04/20 12:00 07/16/20 12:09 DC 07/15/20 02:09 14.9 MLS/HR Info (Anti-Coagulation Monitoring By Pharmacy) 1 each PRN DAILY PRN 07/16/20 08:15 07/17/20 09:20 1 EACH Info (CONTRAST GIVEN -- Rx MONITORING) 1 each PRN DAILY PRN 07/03/20 20:45 07/05/20 20:44 DC Insulin Human Lispro (HumaLOG) 0-9 UNITS Q6HRS 07/13/20 12:00 07/17/20 06:12 5 UNITS Iohexol (Omnipaque 350 Mg/ml) 90 ml 1X ONCE 07/03/20 20:45 07/03/20 20:46 DC 07/03/20 21:00 90 ML Methylprednisolone Sodium Succinate (SOLU-Medrol 40MG VIAL) 40 mg Q12HR 07/17/20 09:00 07/17/20 09:00 40 MG Midazolam HCl (Versed) 5 mg STK-MED ONCE 07/04/20 09:21 07/04/20 09:21 DC Morphine Sulfate (Morphine Sulfate) 2 mg PRN Q2HR PRN 07/03/20 22:30 07/04/20 22:29 DC Norepinephrine Bitartrate 8 mg/ Dextrose 258 ml @ 16.061 mls/ hr CONT PRN 07/04/20 13:15 07/05/20 00:33 28.909 MLS/HR Ondansetron HCl (Zofran) 4 mg PRN Q8HRS PRN 07/03/20 22:30 07/04/20 22:29 DC Pantoprazole Sodium (PROTONIX VIAL for IV PUSH) 40 mg DAILYAC 07/04/20 12:30 07/17/20 07:30 40 MG Piperacillin Sod/ Tazobactam Sod (Zosyn Per Pharmacy) 1 each PRN DAILY PRN 07/04/20 12:00 Piperacillin Sod/ Tazobactam Sod 3.375 gm/Sodium Chloride 50 ml @ 100 mls/hr Q6HRS 07/04/20 12:00 07/17/20 05:10 100 MLS/HR Propofol 100 ml @ 0 mls/hr CONT PRN 07/04/20 09:15 07/17/20 05:11 19.9 MLS/HR Remdesivir 100 mg/ Sodium Chloride 230 ml @ 460 mls/hr Q24H 07/07/20 14:30 07/10/20 14:59 DC 07/10/20 13:59 460 MLS/HR Remdesivir 200 mg/ Sodium Chloride 210 ml @ 210 mls/hr 1X ONCE 07/06/20 14:30 07/06/20 15:29 DC 07/06/20 14:51 210 MLS/HR Sodium Chloride 1,000 ml @ 100 mls/hr Q10H 07/03/20 23:00 07/04/20 22:59 DC 07/05/20 00:35 100 MLS/HR Succinylcholine Chloride (Anectine) 200 mg 1X ONCE 07/04/20 09:30 07/04/20 09:31 DC 07/04/20 09:38 200 MG Throat Lozenges (Cepacol Sore Throat Lozenge) 1 lety PRN Q2HRS PRN 07/04/20 01:15 Vecuronium [place] 50 mg/ Miscellaneous 50 ml @ 4.094 mls/ hr CONT PRN 07/12/20 14:45 07/16/20 11:43 5 MLS/HR Vecuronium [place] (Norcuron Bolus) 6 mg Q4H PRN 07/04/20 16:45 07/12/20 13:03 6 MG Vitamin D (Vitamin D3) 5,000 unit DAILY 07/05/20 09:00 07/17/20 09:00 5,000 UNIT Zinc Sulfate (Orazinc) 220 mg DAILY 07/05/20 09:00 07/17/20 09:00 220 MG Labs: Lab Laboratory Tests Test 07/16/20 11:22 07/16/20 16:34 07/16/20 23:56 07/17/20 06:07 Glucose (Fingerstick) 227 mg/dL (70-99) 202 mg/dL (70-99) 260 mg/dL (70-99) 208 mg/dL (70-99) Test 07/17/20 08:00 O2 Saturation 97 % (92-99) Arterial Blood pH 7.44 (7.35-7.45) Arterial Blood pCO2 at Patient Temp 45 mmHg (35-46) Arterial Blood pO2 at Patient Temp 94 mmHg (75-108) Arterial Blood HCO3 29 mmol/L (21-28) Arterial Blood Base Excess 5 mmol/L (-3-3) FiO2 80%+6 Objective: Assessment: 1. COVID-19 positive. 2. Respiratory failure. 3. Bilateral pulmonary emboli. 4. Hypertension. 5. Leukocytosis. Plan: Plan of Care Continue supportive care Steroids Status post remdesivir CHILANGO Stephen d/w JAMI LUCAS MD Jul 17, 2020 10:44
--- NOTE | 2020-07-17 10:53 | PDOC ---
PULMONARY PROGRESS NOTES DATE: 07/17/20 TIME: 10:51 Subjective PT. remains on vent support in PC-AC Fi02 80% afebrile overnight on vec gtt and heparin gtt no concerns from nursing Vitals Vital Signs Date Time Temp Pulse Resp B/P (MAP) Pulse Ox O2 Delivery O2 Flow Rate FiO2 07/17/20 08:00 98.0 46 30 92/59 (70) 97 Ventilator 98.0 07/16/20 19:03 15.0 Comments Patient seen during pandemic visual exam performed Intubated/sedated RRR no Accessory muscle use No obvious rash or edema Lungs: Other (orally intubated, clear ) Labs Laboratory Tests Test 07/15/20 13:30 07/15/20 17:12 07/15/20 20:00 07/16/20 00:34 Heparin Anti-Xa Act, Unfractionated 0.88 IU/mL (0.30-0.70) 0.47 IU/mL (0.30-0.70) Glucose (Fingerstick) 274 mg/dL (70-99) 258 mg/dL (70-99) Test 07/16/20 05:00 07/16/20 05:24 07/16/20 08:30 07/16/20 09:30 Heparin Anti-Xa Act, Unfractionated 0.38 IU/mL (0.30-0.70) Glucose (Fingerstick) 237 mg/dL (70-99) White Blood Count 15.3 x10^3/uL (4.0-11.0) Red Blood Count 3.28 x10^6/uL (4.30-5.70) Hemoglobin 10.8 g/dL (13.0-17.5) Hematocrit 32.4 % (39.0-53.0) Mean Corpuscular Volume 99 fL (79-100) Mean Corpuscular Hemoglobin 33 pg (25-35) Mean Corpuscular Hemoglobin Concent 33 g/dL (31-37) Red Cell Distribution Width 13.6 % (11.5-14.5) Platelet Count 191 x10^3/uL (140-400) Neutrophils (%) (Auto) 83 % (31-73) Lymphocytes (%) (Auto) 8 % (24-48) Monocytes (%) (Auto) 8 % (0-9) Eosinophils (%) (Auto) 0 % (0-3) Basophils (%) (Auto) 0 % (0-3) Neutrophils # (Auto) 12.8 x10^3/uL (1.8-7.7) Lymphocytes # (Auto) 1.3 x10^3/uL (1.0-4.8) Monocytes # (Auto) 1.2 x10^3/uL (0.0-1.1) Eosinophils # (Auto) 0.0 x10^3/uL (0.0-0.7) Basophils # (Auto) 0.0 x10^3/uL (0.0-0.2) Sodium Level 133 mmol/L (136-145) Potassium Level 4.0 mmol/L (3.5-5.1) Chloride Level 100 mmol/L (98-107) Carbon Dioxide Level 27 mmol/L (21-32) Anion Gap 6 (6-14) Blood Urea Nitrogen 21 mg/dL (8-26) Creatinine 0.7 mg/dL (0.7-1.3) Estimated GFR (Cockcroft-Gault) 119.4 Glucose Level 227 mg/dL (70-99) Calcium Level 7.8 mg/dL (8.5-10.1) O2 Saturation 95 % (92-99) Arterial Blood pH 7.49 (7.35-7.45) Arterial Blood pCO2 at Patient Temp 29 mmHg (35-46) Arterial Blood pO2 at Patient Temp 79 mmHg (75-108) Arterial Blood HCO3 22 mmol/L (21-28) Arterial Blood Base Excess -1 mmol/L (-3-3) FiO2 80% vent Test 07/16/20 11:22 07/16/20 16:34 07/16/20 23:56 07/17/20 06:07 Glucose (Fingerstick) 227 mg/dL (70-99) 202 mg/dL (70-99) 260 mg/dL (70-99) 208 mg/dL (70-99) Test 07/17/20 08:00 O2 Saturation 97 % (92-99) Arterial Blood pH 7.44 (7.35-7.45) Arterial Blood pCO2 at Patient Temp 45 mmHg (35-46) Arterial Blood pO2 at Patient Temp 94 mmHg (75-108) Arterial Blood HCO3 29 mmol/L (21-28) Arterial Blood Base Excess 5 mmol/L (-3-3) FiO2 80%+6 Laboratory Tests Test 07/16/20 11:22 07/16/20 16:34 07/16/20 23:56 07/17/20 06:07 Glucose (Fingerstick) 227 mg/dL (70-99) 202 mg/dL (70-99) 260 mg/dL (70-99) 208 mg/dL (70-99) Test 07/17/20 08:00 O2 Saturation 97 % (92-99) Arterial Blood pH 7.44 (7.35-7.45) Arterial Blood pCO2 at Patient Temp 45 mmHg (35-46) Arterial Blood pO2 at Patient Temp 94 mmHg (75-108) Arterial Blood HCO3 29 mmol/L (21-28) Arterial Blood Base Excess 5 mmol/L (-3-3) FiO2 80%+6 Comments CXR 07/16 reviewed 1. Stable life support devices. 2. Stable bilateral perihilar and basilar opacities. Impression . IMPRESSION: 1. Acute hypoxemic respiratory failure. 2. Acute pulmonary embolism with cor pulmonale. 3. Possible COVID-[address]. [address] chest revealing ground glass opacities. 5. Hypertension. 6. History of bronchitis. 7. Elevated troponin. 8. Acute kidney injury. 9. Leukocytosis. 10. Covid-19 positive Plan . Continue current ventilatory support, on pressure control with a pressure control of 36,and Fi02 of 80% Follow chest x-ray and ABG, will reduce Resp. rate to 28 and Pressure control to 28 , wean FIO2/PEEP Continue adequate sedation, currently on vecuronium drip Follow cardiology recommendations Antibiotics per ID--Zosyn,has completed full course of remdesivir off heparin drip, started on eliquis cont. steroids now on daily dosing continue tube feeding for nutritional support DVT/GI prophylaxis, on full dose AC/ Protonix Discussed with RN and RT Pt. is FULL CODE Critical Care Time 30min, reviewing labs, diagnostics and discussing with care team NERY SALINAS MD Jul 17, 2020 10:53
[2020-07-17] MEDS: VECURONIUM BROMIDE 50 MG in TOTAL VOLUME 50 ML IV PRN (19:17)
[2020-07-17] MEDS: fentaNYL HIGH DOSE PCA 55 ML IV PRN (22:00)
[2020-07-18] VITALS (23 sets, daily range): BP systolic 86–155; BP diastolic 55–91
[2020-07-18] MEDS: ASCORBIC ACID 500 MG TABLET PO SCH ×5 (00:14→23:56)
[2020-07-18] MEDS: PROPOFOL 100 ML IV PRN ×5 (00:15→20:44)
[2020-07-18] MEDS: INSULIN LISPRO 300 UNITS/3 ML VIAL. SQ SCH ×5 (00:36→23:53)
[2020-07-18] MEDS: VECURONIUM BROMIDE 50 MG in TOTAL VOLUME 50 ML IV PRN (01:56)
[2020-07-18 06:10] LABS: BASO % 0 % (0-3); EOS % 0 % (0-3); HEMATOCRIT 37.1 % (39.0-53.0); HEMOGLOBIN 12.3 g/dL (13.0-17.5); LYMPH # 0.6 x10^3/uL (1.0-4.8); LYMPH % 3 % (24-48); MEAN CORPUSCULAR HEMOGLOBIN 33 pg (25-35); MEAN CORPUSCULAR HGB CONC 33 g/dL (31-37); MEAN CORPUSCULAR VOLUME 100 fL (79-100); MONO # 0.5 x10^3/uL (0.0-1.1); MONO % 2 % (0-9); NEUT # 20.3 x10^3/uL (1.8-7.7); NEUT % 95 % (31-73); PLATELET COUNT 201 x10^3/uL (140-400); RED BLOOD COUNT 3.71 x10^6/uL (4.30-5.70); WHITE BLOOD COUNT 21.5 x10^3/uL (4.0-11.0)
[2020-07-18 06:17] LABS: CALCIUM 8.2 mg/dL (8.5-10.1); CREATININE 0.6 mg/dL (0.7-1.3); GFR 142.6; POTASSIUM 4.3 mmol/L (3.5-5.1)
--- NOTE | 2020-07-18 08:05 | PDOC ---
PROGRESS NOTES Date of Service: DATE: 07/18/20 TIME: 07:56 Chief Complaint Chief Complaint Acute hypoxic respiratory failure requiring intubation COVID-19 PUI Subsegmental bilateral PE Leukocytosis NSTEMI AKA Lactic acidosis Hyponatremia Plan: Appreciate pulmonology recommendations Continue current ventilatory support, currently on 80% and PEEP of 6, avoid increasing PEEP 2/2 risk of barotrauma Follow chest x-ray and ABG, vent management as per pulmonology Heparin infusion will address bilateral PEs and NSTEMI, monitor for bleeding. Solu-Medrol 40 mg every 12 hours Appreciate ID recommendationscontinue Remdesivir and empiric antibiotics IV fluids I discussed code status with niece over the phone yesterday evening, continues to be a full code. Patient prognosis and current state was explained at length as well. All concerns addressed to the best of my abilities. A total of 45 was spent in reviewing chart, labs, and images. Discussed with RN and SW. History of Present Illness History of Present Illness 07/18/2020 Patient with no acute events reported overnight, fio2 is now at 75% PEEP of 6, Vent management as per pulmonary community resource consultant slight increase in temperature noted over the lat 24 hours. Will continue to follow 07/17/2020 Patient with no acute events reported overnight, contineus to require an fio2 of 80%, continue with supportive measures. 07/16/2020 Patient with no acute events reported overnight, patient continues to require quite a bit of FiO2 at 80%. Vent management as per community resource consultant, will place a call to family members after rounding. Discussed with RN 07/15/2020 Patient seen and examined bedside in the ICU. FiO2 80% PEEP of 6.pH 7.56, PCO2 32, PO2 56, HCO3 28. Will adjust respiratory rate accordingly to correct pH.> 50% time spent in patient chart, labs, and imaging review and in discussion with RN and SW 07/14/2020 Patient seen and examined bedside. FiO2 65% and PEEP of 6 on vent. ABG: pH 7.26, PCO2 77, PO2 114, HCO3 34. We will adjust respiratory rate or tidal volume to titrate pH.> 50% time spent in patient chart, labs, and imaging review and in discussion with RN and SW 07/13/2020 No acute events overnight. Patient examined bedside sedated and intubated. FiO2 70% PEEP of 6. Improved ABGs.> 50% time spent in patient chart, labs, and imaging review and in discussion with RN and JAVIER 07/12/2020 Patient seen and examined in the ICU. Sedated and intubated. FiO2 65, PEEP of 8 with improved oxygenation. pH 7.4, PCO2 48, PO2 94, HCO3 30. +500 cc fluid balance.> 50% time spent in patient chart, labs, and imaging review and in discussion with RN and JAVIER 07/11/2020 Patient seen and examined bedside in the ICU. Patient continues to be intubated and sedated. FiO2 75%, PEEP of 10. pH 7.40, PCO2 44, PO2 is 135, HCO3 26. Can likely decrease FiO2 due to improved oxygenation. +173 cc in the past 24 hours 07/10/2020 Patient seen and examined bedside in ICU. Patient is intubated and sedated. FiO2 90%, PEEP of 10, respiratory rate of 30. ABG: pH is 7.41, PCO2 42, PO2 113, HCO3 26. 07/09/2020 Patient seen and examined in the ICU. Intubated and sedated. Vent settings FiO2 90%, PEEP of 10, respiratory rate of 30. 07/05: Patient seen in ICU, still intubated and sedated. COVID-19 pending. Patient remains on heparin infusion. Discussed with RN, will try to have ce ntral line placed per anesthesia. 07/06: Patient seen in ICU. Still FiO2 100% on vent and sedated. COVID-19 positive. Continue heparin infusion, Zosyn, steroids. 07/07: Covid positive patient seen in ICU. On vent with FiO2 100%, PEEP 10. Continue remdesivir, steroids, Zosyn. Continue to monitor 07/08: Patient seen in Covid ICU. Still on vent with FiO2 100%, PEEP 10. Afebrile. No acute events overnight. Continue steroids, antibiotics, and remdesivir. Patient is 49-year-old male with past medical history of hypertension, who presents to the ED with complaints of worsening shortness of breath over the past 5 days. Associated sore throat, fatigue, and generalized weakness. Patient was reportedly tested for COVID-19 last Thursday, but he had negative test results. His symptoms acutely worsened yesterday. Upon arrival to the ER his oxygen saturation was 60% on room air. He was placed on BiPAP and admitted to the ICU. Patient was subsequently intubated due to worsening respiratory failure. Vitals Vitals Vital Signs Date Time Temp Pulse Resp B/P (MAP) Pulse Ox O2 Delivery O2 Flow Rate FiO2 07/18/20 06:00 90 28 134/82 (99) 95 Ventilator 07/18/20 04:00 99.2 99.2 Physical Exam Physical Exam Visual exam done due to [place] pandemic General intubated LUNGS: Mechanical ventilation HEART: Regular rhythm ABDOMEN: Nondistended SKIN: No generalized rash General: Other (Sedated and intubated) Heart: Regular rate (SR/ST) Lungs: Other (orally intubated, clear ) Abdomen: Other (Nondistended) Extremities: No clubbing, No cyanosis Skin: No rashes, No breakdown Labs LABS Laboratory Tests Test 07/17/20 08:00 07/17/20 11:06 07/17/20 17:02 07/18/20 00:29 O2 Saturation 97 % (92-99) Arterial Blood pH 7.44 (7.35-7.45) Arterial Blood pCO2 at Patient Temp 45 mmHg (35-46) Arterial Blood pO2 at Patient Temp 94 mmHg (75-108) Arterial Blood HCO3 29 mmol/L (21-28) Arterial Blood Base Excess 5 mmol/L (-3-3) FiO2 80%+6 Glucose (Fingerstick) 159 mg/dL (70-99) 155 mg/dL (70-99) 214 mg/dL (70-99) Test 07/18/20 05:20 White Blood Count 21.5 x10^3/uL (4.0-11.0) Red Blood Count 3.71 x10^6/uL (4.30-5.70) Hemoglobin 12.3 g/dL (13.0-17.5) Hematocrit 37.1 % (39.0-53.0) Mean Corpuscular Volume 100 fL (79-100) Mean Corpuscular Hemoglobin 33 pg (25-35) Mean Corpuscular Hemoglobin Concent 33 g/dL (31-37) Red Cell Distribution Width 14.0 % (11.5-14.5) Platelet Count 201 x10^3/uL (140-400) Neutrophils (%) (Auto) 95 % (31-73) Lymphocytes (%) (Auto) 3 % (24-48) Monocytes (%) (Auto) 2 % (0-9) Eosinophils (%) (Auto) 0 % (0-3) Basophils (%) (Auto) 0 % (0-3) Neutrophils # (Auto) 20.3 x10^3/uL (1.8-7.7) Lymphocytes # (Auto) 0.6 x10^3/uL (1.0-4.8) Monocytes # (Auto) 0.5 x10^3/uL (0.0-1.1) Eosinophils # (Auto) 0.0 x10^3/uL (0.0-0.7) Basophils # (Auto) 0.0 x10^3/uL (0.0-0.2) Sodium Level 137 mmol/L (136-145) Potassium Level 4.3 mmol/L (3.5-5.1) Chloride Level 99 mmol/L (98-107) Carbon Dioxide Level 32 mmol/L (21-32) Anion Gap 6 (6-14) Blood Urea Nitrogen 13 mg/dL (8-26) Creatinine 0.6 mg/dL (0.7-1.3) Estimated GFR (Cockcroft-Gault) 142.6 Glucose Level 206 mg/dL (70-99) Calcium Level 8.2 mg/dL (8.5-10.1) Assessment and Plan Assessmemt and Plan Problems Medical Problems: (1) Acute respiratory failure with hypoxia Status: Acute (2) PRIYA (acute kidney injury) Status: Acute (3) Elevated troponin I level Status: Acute (4) Pulmonary emboli Status: Acute (5) Suspected COVID-19 virus infection Status: Acute Comment Review of Relevant I have reviewed the following items trino (where applicable) has been applied. Labs Laboratory Tests Test 07/16/20 08:30 07/16/20 09:30 07/16/20 11:22 07/16/20 16:34 White Blood Count 15.3 x10^3/uL (4.0-11.0) Red Blood Count 3.28 x10^6/uL (4.30-5.70) Hemoglobin 10.8 g/dL (13.0-17.5) Hematocrit 32.4 % (39.0-53.0) Mean Corpuscular Volume 99 fL (79-100) Mean Corpuscular Hemoglobin 33 pg (25-35) Mean Corpuscular Hemoglobin Concent 33 g/dL (31-37) Red Cell Distribution Width 13.6 % (11.5-14.5) Platelet Count 191 x10^3/uL (140-400) Neutrophils (%) (Auto) 83 % (31-73) Lymphocytes (%) (Auto) 8 % (24-48) Monocytes (%) (Auto) 8 % (0-9) Eosinophils (%) (Auto) 0 % (0-3) Basophils (%) (Auto) 0 % (0-3) Neutrophils # (Auto) 12.8 x10^3/uL (1.8-7.7) Lymphocytes # (Auto) 1.3 x10^3/uL (1.0-4.8) Monocytes # (Auto) 1.2 x10^3/uL (0.0-1.1) Eosinophils # (Auto) 0.0 x10^3/uL (0.0-0.7) Basophils # (Auto) 0.0 x10^3/uL (0.0-0.2) Sodium Level 133 mmol/L (136-145) Potassium Level 4.0 mmol/L (3.5-5.1) Chloride Level 100 mmol/L (98-107) Carbon Dioxide Level 27 mmol/L (21-32) Anion Gap 6 (6-14) Blood Urea Nitrogen 21 mg/dL (8-26) Creatinine 0.7 mg/dL (0.7-1.3) Estimated GFR (Cockcroft-Gault) 119.4 Glucose Level 227 mg/dL (70-99) Calcium Level 7.8 mg/dL (8.5-10.1) O2 Saturation 95 % (92-99) Arterial Blood pH 7.49 (7.35-7.45) Arterial Blood pCO2 at Patient Temp 29 mmHg (35-46) Arterial Blood pO2 at Patient Temp 79 mmHg (75-108) Arterial Blood HCO3 22 mmol/L (21-28) Arterial Blood Base Excess -1 mmol/L (-3-3) FiO2 80% vent Glucose (Fingerstick) 227 mg/dL (70-99) 202 mg/dL (70-99) Test 07/16/20 23:56 07/17/20 06:07 07/17/20 08:00 07/17/20 11:06 Glucose (Fingerstick) 260 mg/dL (70-99) 208 mg/dL (70-99) 159 mg/dL (70-99) O2 Saturation 97 % (92-99) Arterial Blood pH 7.44 (7.35-7.45) Arterial Blood pCO2 at Patient Temp 45 mmHg (35-46) Arterial Blood pO2 at Patient Temp 94 mmHg (75-108) Arterial Blood HCO3 29 mmol/L (21-28) Arterial Blood Base Excess 5 mmol/L (-3-3) FiO2 80%+6 Test 07/17/20 17:02 07/18/20 00:29 07/18/20 05:20 Glucose (Fingerstick) 155 mg/dL (70-99) 214 mg/dL (70-99) White Blood Count 21.5 x10^3/uL (4.0-11.0) Red Blood Count 3.71 x10^6/uL (4.30-5.70) Hemoglobin 12.3 g/dL (13.0-17.5) Hematocrit 37.1 % (39.0-53.0) Mean Corpuscular Volume 100 fL (79-100) Mean Corpuscular Hemoglobin 33 pg (25-35) Mean Corpuscular Hemoglobin Concent 33 g/dL (31-37) Red Cell Distribution Width 14.0 % (11.5-14.5) Platelet Count 201 x10^3/uL (140-400) Neutrophils (%) (Auto) 95 % (31-73) Lymphocytes (%) (Auto) 3 % (24-48) Monocytes (%) (Auto) 2 % (0-9) Eosinophils (%) (Auto) 0 % (0-3) Basophils (%) (Auto) 0 % (0-3) Neutrophils # (Auto) 20.3 x10^3/uL (1.8-7.7) Lymphocytes # (Auto) 0.6 x10^3/uL (1.0-4.8) Monocytes # (Auto) 0.5 x10^3/uL (0.0-1.1) Eosinophils # (Auto) 0.0 x10^3/uL (0.0-0.7) Basophils # (Auto) 0.0 x10^3/uL (0.0-0.2) Sodium Level 137 mmol/L (136-145) Potassium Level 4.3 mmol/L (3.5-5.1) Chloride Level 99 mmol/L (98-107) Carbon Dioxide Level 32 mmol/L (21-32) Anion Gap 6 (6-14) Blood Urea Nitrogen 13 mg/dL (8-26) Creatinine 0.6 mg/dL (0.7-1.3) Estimated GFR (Cockcroft-Gault) 142.6 Glucose Level 206 mg/dL (70-99) Calcium Level 8.2 mg/dL (8.5-10.1) Laboratory Tests Test 07/17/20 08:00 07/17/20 11:06 07/17/20 17:02 07/18/20 00:29 O2 Saturation 97 % (92-99) Arterial Blood pH 7.44 (7.35-7.45) Arterial Blood pCO2 at Patient Temp 45 mmHg (35-46) Arterial Blood pO2 at Patient Temp 94 mmHg (75-108) Arterial Blood HCO3 29 mmol/L (21-28) Arterial Blood Base Excess 5 mmol/L (-3-3) FiO2 80%+6 Glucose (Fingerstick) 159 mg/dL (70-99) 155 mg/dL (70-99) 214 mg/dL (70-99) Test 07/18/20 05:20 White Blood Count 21.5 x10^3/uL (4.0-11.0) Red Blood Count 3.71 x10^6/uL (4.30-5.70) Hemoglobin 12.3 g/dL (13.0-17.5) Hematocrit 37.1 % (39.0-53.0) Mean Corpuscular Volume 100 fL (79-100) Mean Corpuscular Hemoglobin 33 pg (25-35) Mean Corpuscular Hemoglobin Concent 33 g/dL (31-37) Red Cell Distribution Width 14.0 % (11.5-14.5) Platelet Count 201 x10^3/uL (140-400) Neutrophils (%) (Auto) 95 % (31-73) Lymphocytes (%) (Auto) 3 % (24-48) Monocytes (%) (Auto) 2 % (0-9) Eosinophils (%) (Auto) 0 % (0-3) Basophils (%) (Auto) 0 % (0-3) Neutrophils # (Auto) 20.3 x10^3/uL (1.8-7.7) Lymphocytes # (Auto) 0.6 x10^3/uL (1.0-4.8) Monocytes # (Auto) 0.5 x10^3/uL (0.0-1.1) Eosinophils # (Auto) 0.0 x10^3/uL (0.0-0.7) Basophils # (Auto) 0.0 x10^3/uL (0.0-0.2) Sodium Level 137 mmol/L (136-145) Potassium Level 4.3 mmol/L (3.5-5.1) Chloride Level 99 mmol/L (98-107) Carbon Dioxide Level 32 mmol/L (21-32) Anion Gap 6 (6-14) Blood Urea Nitrogen 13 mg/dL (8-26) Creatinine 0.6 mg/dL (0.7-1.3) Estimated GFR (Cockcroft-Gault) 142.6 Glucose Level 206 mg/dL (70-99) Calcium Level 8.2 mg/dL (8.5-10.1) Microbiology 07/03/20 Blood Culture - Final, Complete NO GROWTH AFTER 5 DAYS Medications Current Medications Ceftriaxone Sodium (Rocephin) 1 gm 1X ONCE IVP Last administered on 07/03/20at 20:11; Start 07/03/20 at 19:15; Stop 07/03/20 at 19:19; Status DC Azithromycin (Zithromax) 500 mg 1X ONCE PO Last administered on 07/03/20at 20:11; Start 07/03/20 at 19:15; Stop 07/03/20 at 19:19; Status DC Sodium Chloride 1,000 ml @ 1,000 mls/hr 1X ONCE IV Last administered on 07/03/20at 20:11; Start 07/03/20 at 19:15; Stop 07/03/20 at 20:14; Status DC Sodium Chloride 1,000 ml @ 1,000 mls/hr 1X ONCE IV Last administered on 07/03/20at 19:15; Start 07/03/20 at 19:15; Stop 07/03/20 at 20:14; Status DC Iohexol (Omnipaque 350 Mg/ml) 90 ml 1X ONCE IV Last administered on 07/03/20at 21:00; Start 07/03/20 at 20:45; Stop 07/03/20 at 20:46; Status DC Info (CONTRAST GIVEN -- Rx MONITORING) 1 each PRN DAILY PRN MC SEE COMMENTS; Start 07/03/20 at 20:45; Stop 07/05/20 at 20:44; Status DC Enoxaparin Sodium (Lovenox 150mg Syringe) 150 mg 1X ONCE SQ Last administered on 07/03/20at 22:45; Start 07/03/20 at 23:00; Stop 07/03/20 at 23:01; Status DC Ondansetron HCl (Zofran) 4 mg PRN Q8HRS PRN IV NAUSEA/VOMITING 1ST CHOICE; Start 07/03/20 at 22:30; Stop 07/04/20 at 22:29; Status DC Morphine Sulfate (Morphine Sulfate) 2 mg PRN Q2HR PRN IV SEVERE PAIN 7-10; Start 07/03/20 at 22:30; Stop 07/04/20 at 22:29; Status DC Sodium Chloride 1,000 ml @ 100 mls/hr Q10H IV Last administered on 07/05/20at 00:35; Start 07/03/20 at 23:00; Stop 07/04/20 at 22:59; Status DC Acetaminophen (Tylenol) 650 mg PRN Q4HRS PRN PO FEVER > 100.3'F; Start 07/03/20 at 22:30; Stop 07/04/20 at 22:29; Status DC Throat Lozenges (Cepacol Sore Throat Lozenge) 1 lety PRN Q2HRS PRN PO SORE THROAT; Start 07/04/20 at 01:15 Furosemide (Lasix) 20 mg 1X ONCE IVP Last administered on 07/04/20at 10:10; Start 07/04/20 at 10:00; Stop 07/04/20 at 10:01; Status DC Succinylcholine Chloride (Anectine) 200 mg STK-MED ONCE .ROUTE ; Start 07/04/20 at 09:09; Stop 07/04/20 at 09:09; Status DC Etomidate (Amidate) 20 mg STK-MED ONCE IV ; Start 07/04/20 at 09:09; Stop 07/04/20 at 09:09; Status DC Fentanyl Citrate 30 ml @ 0 mls/hr CONT PRN IV SEE PROTOCOL Last administered on 07/04/20at 09:36; Start 07/04/20 at 09:15; Stop 07/04/20 at 14:36; Status DC Propofol 100 ml @ 0 mls/hr CONT PRN IV SEE PROTOCOL Last administered on 07/18/20at 05:56; Start 07/04/20 at 09:15 Midazolam HCl 100 ml @ 0 mls/hr CONT PRN IV SEE PROTOCOL Last administered on 07/17/20at 19:36; Start 07/04/20 at 09:15 Midazolam HCl (Versed) 5 mg 1X STAT IV Last administered on 07/04/20at 09:41; Start 07/04/20 at 09:21; Stop 07/04/20 at 09:22; Status DC Midazolam HCl (Versed) 5 mg STK-MED ONCE .ROUTE ; Start 07/04/20 at 09:21; Stop 07/04/20 at 09:21; Status DC Etomidate (Amidate) 10 mg 1X ONCE IV Last administered on 07/04/20at 09:37; Start 07/04/20 at 09:30; Stop 07/04/20 at 09:31; Status DC Succinylcholine Chloride (Anectine) 200 mg 1X ONCE IV Last administered on 07/04/20at 09:38; Start 07/04/20 at 09:30; Stop 07/04/20 at 09:31; Status DC Vecuronium [place] (Norcuron Bolus) 6 mg 1X ONCE IV Last administered on 07/04/20at 09:38; Start 07/04/20 at 09:45; Stop 07/04/20 at 09:46; Status DC Vecuronium [place] (Norcuron Bolus) 10 mg STK-MED ONCE IV ; Start 07/04/20 at 09:33; Stop 07/04/20 at 09:33; Status DC Pantoprazole Sodium (PROTONIX VIAL for IV PUSH) 40 mg DAILYAC IVP Last administered on 07/17/20at 07:30; Start 07/04/20 at 12:30 Methylprednisolone Sodium Succinate (SOLU-Medrol 40MG VIAL) 40 mg Q8HRS IV Last administered on 07/11/20at 05:41; Start 07/04/20 at 14:00; Stop 07/11/20 at 11:36; Status DC Piperacillin Sod/ Tazobactam Sod (Zosyn Per Pharmacy) 1 each PRN DAILY PRN MC SEE COMMENTS; Start 07/04/20 at 12:00; Stop 07/18/20 at 07:46; Status DC Heparin Sodium/ Dextrose 250 ml @ 0 mls/hr CONT PRN IV PER PROTOCOL Last administered on 07/15/20at 02:09; Start 07/04/20 at 12:00; Stop 07/16/20 at 12:09; Status DC Heparin Sodium (Porcine) (Heparin Sodium) 2,500 unit PRN Q6HRS PRN IV FOR UFH LEVEL LESS THAN 0.2 Last administered on 07/15/20at 09:19; Start 07/04/20 at 12:00; Stop 07/16/20 at 12:09; Status DC Heparin Sodium (Porcine) (Heparin Sodium) 1,250 unit PRN Q6HRS PRN IV FOR UFH LEVEL 0.2 - 0.29 Last administered on 07/05/20at 18:27; Start 07/04/20 at 12:00; Stop 07/16/20 at 12:09; Status DC Piperacillin Sod/ Tazobactam Sod 3.375 gm/Sodium Chloride 50 ml @ 100 mls/hr Q6HRS IV Last administered on 07/17/20at 05:10; Start 07/04/20 at 12:00; Stop 07/17/20 at 11:11; Status DC Zinc Sulfate (Orazinc) 220 mg DAILY PO Last administered on 07/17/20at 09:00; Start 07/05/20 at 09:00 Ascorbic Acid (Vitamin C) 500 mg Q6HRS PO Last administered on 07/18/20at 05:58; Start 07/04/20 at 18:00 Vitamin D (Vitamin D3) 5,000 unit DAILY PO Last administered on 07/17/20at 09:00; Start 07/05/20 at 09:00 Vecuronium [place] (Norcuron Bolus) 6 mg 1X ONCE IV Last administered on 07/04/20at 13:27; Start 07/04/20 at 13:15; Stop 07/04/20 at 13:16; Status DC Norepinephrine Bitartrate 8 mg/ Dextrose 258 ml @ 16.061 mls/ hr CONT PRN IV PER PROTOCOL Last administered on 07/05/20at 00:33; Start 07/04/20 at 13:15 Fentanyl Citrate 55 ml @ 0 mls/hr CONT PRN IV SEE PROTOCOL Last administered on 07/17/20at 22:00; Start 07/04/20 at 14:45 Vecuronium [place] (Norcuron Bolus) 6 mg Q4H PRN IV OVERBREATHING VENT/out of sync Last administered on 07/12/20at 13:03; Start 07/04/20 at 16:45 Furosemide (Lasix) 40 mg 1X ONCE IVP Last administered on 07/05/20at 14:17; Start 07/05/20 at 13:30; Stop 07/05/20 at 13:31; Status DC Insulin Human Lispro (HumaLOG) 0-5 UNITS Q6HRS SQ Last administered on 07/11/20at 05:42; Start 07/05/20 at 18:00; Stop 07/11/20 at 07:54; Status DC Dextrose (Dextrose 50%-Water Syringe) 12.5 gm PRN Q15MIN PRN IV SEE COMMENTS; Start 07/05/20 at 14:15 Insulin Human Lispro (HumaLOG) 2 units 1X ONCE SQ Last administered on 07/05/20at 14:19; Start 07/05/20 at 14:30; Stop 07/05/20 at 14:31; Status DC Remdesivir 200 mg/ Sodium Chloride 210 ml @ 210 mls/hr 1X ONCE IV Last administered on 07/06/20at 14:51; Start 07/06/20 at 14:30; Stop 07/06/20 at 15:29; Status DC Remdesivir 100 mg/ Sodium Chloride 230 ml @ 460 mls/hr Q24H IV Last administered on 07/10/20at 13:59; Start 07/07/20 at 14:30; Stop 07/10/20 at 14:59; Status DC Insulin Human Lispro (HumaLOG) 0-9 UNITS TIDWMEALS SQ Last administered on 07/12/20at 11:31; Start 07/11/20 at 08:00; Stop 07/13/20 at 10:17; Status DC Methylprednisolone Sodium Succinate (SOLU-Medrol 40MG VIAL) 40 mg DAILY IV Last administered on 07/14/20at 07:57; Start 07/12/20 at 09:00; Stop 07/14/20 at 09:26; Status DC Acetaminophen (Tylenol) 650 mg PRN Q6HRS PRN PEG MILD PAIN / TEMP > 100.3'F Last administered on 07/12/20at 12:11; Start 07/12/20 at 12:00 Vecuronium [place] 50 mg/ Miscellaneous 50 ml @ 4.094 mls/ hr CONT PRN IV SEE I/O RECORD Last administered on 07/18/20at 01:56; Start 07/12/20 at 14:45 Insulin Human Lispro (HumaLOG) 0-9 UNITS Q6HRS SQ Last administered on 07/18/20at 06:26; Start 07/13/20 at 12:00 Methylprednisolone Sodium Succinate (SOLU-Medrol 40MG VIAL) 40 mg Q12HR IV Last administered on 07/16/20at 09:57; Start 07/14/20 at 21:00; Stop 07/16/20 at 12:10; Status DC Info (Anti-Coagulation Monitoring By Pharmacy) 1 each PRN DAILY PRN MC SEE COMMENTS Last administered on 07/17/20at 09:20; Start 07/16/20 at 08:15 Apixaban (Eliquis) 10 mg BID PO Last administered on 07/17/20at 20:55; Start 07/16/20 at 13:00; Stop 07/22/20 at 21:01 Methylprednisolone Sodium Succinate (SOLU-Medrol 40MG VIAL) 40 mg DAILY IV Last administered on 07/16/20at 12:22; Start 07/16/20 at 13:00; Stop 07/17/20 at 08:24; Status DC Apixaban (Eliquis) 5 mg BID PO ; Start 07/23/20 at 09:00 Methylprednisolone Sodium Succinate (SOLU-Medrol 40MG VIAL) 40 mg Q12HR IV Last administered on 07/17/20at 20:55; Start 07/17/20 at 09:00 Vitals/I & O Vital Sign - Last 24 Hours 07/17/20 07/17/20 07/17/20 07/17/20 08:00 08:00 09:00 10:00 Temp 98.0 98.0 Pulse 46 44 47 Resp 30 28 28 B/P (MAP) 92/59 (70) 93/58 (70) 90/58 (69) Pulse Ox 97 97 96 O2 Delivery Mechanical Ventilator Ventilator Ventilator Ventilator 07/17/20 07/17/20 07/17/20 07/17/20 11:00 11:30 12:00 12:00 Temp 97.8 97.8 Pulse 51 88 Resp 30 B/P (MAP) 87/57 (67) 92/54 (67) Pulse Ox 97 96 96 O2 Delivery Ventilator Ventilator Ventilator Mechanical Ventilator 07/17/20 07/17/20 07/17/20 07/17/20 13:00 14:00 15:00 15:49 Pulse 84 80 62 Resp 28 28 B/P (MAP) 124/80 (95) 127/80 (96) 108/68 (81) Pulse Ox 97 97 97 96 O2 Delivery Ventilator Ventilator Ventilator Ventilator 07/17/20 07/17/20 07/17/20 07/17/20 16:00 16:00 17:00 18:00 Temp 97.8 97.8 Pulse 67 90 90 Resp 30 28 B/P (MAP) 133/85 (101) 141/92 (108) 161/97 (118) Pulse Ox 96 95 95 O2 Delivery Mechanical Ventilator Ventilator Ventilator Ventilator 07/17/20 07/17/20 07/17/20 07/17/20 19:00 20:00 20:01 20:10 Temp 100.1 100.1 Pulse 100 104 Resp 28 B/P (MAP) 158/101 (120) 148/81 (103) Pulse Ox 93 93 93 O2 Delivery Ventilator Ventilator Ventilator Mechanical Ventilator 07/17/20 07/17/20 07/17/20 07/17/20 21:00 22:00 23:00 23:30 Pulse 106 101 113 Resp 28 28 28 B/P (MAP) 148/86 (106) 151/86 (107) 162/95 (117) Pulse Ox 94 93 90 90 O2 Delivery Ventilator Ventilator Ventilator Ventilator 07/18/20 07/18/20 07/18/20 07/18/20 00:00 00:15 01:00 02:00 Temp 99.8 99.8 Pulse 109 115 111 Resp 28 28 B/P (MAP) 141/83 (102) 143/84 (103) 145/88 (107) Pulse Ox 92 93 92 O2 Delivery Ventilator Mechanical Ventilator Ventilator Ventilator 07/18/20 07/18/20 07/18/20 07/18/20 03:00 04:00 04:10 04:33 Temp 99.2 99.2 Pulse 101 104 Resp 28 28 B/P (MAP) 124/74 (91) 143/83 (103) Pulse Ox 93 93 90 O2 Delivery Ventilator Ventilator Mechanical Ventilator Ventilator 07/18/20 07/18/20 05:00 06:00 Pulse 98 90 Resp 28 B/P (MAP) 136/80 (98) 134/82 (99) Pulse Ox 93 95 O2 Delivery Ventilator Ventilator Intake and Output 07/17/20 07/17/20 07/18/20 15:00 23:00 07:00 Intake Total 200 ml 1239.1 ml 834 ml Output Total 950 ml 1425 ml 1225 ml Balance -750 ml -185.9 ml -391 ml Justicifation of Admission Dx: Justifications for Admission: Justification of Admission Dx: Yes SCOTT RUSH MD Jul 18, 2020 08:05
[2020-07-18] MEDS: ANTI-COAG MONITOR BY PHARMACY. MC PRN (08:40)
[2020-07-18 09:06] LABS: BASE EXCESS ABG 6 mmol/L (-3-3); HCO3 ABG 30 mmol/L (21-28); PCO2 ABG 43 mmHg (35-46); PO2 ABG 92 mmHg (75-108); SAT O2 ABG 97 % (92-99)
[2020-07-18 09:21] LABS: FIO2 ABG 75% VENT
[2020-07-18] MEDS: MIDAZOLAM 100mg/100ml NS BAG 100 ML IV PRN ×2 (09:26→18:42)
[2020-07-18] MEDS: ZINC SULFATE 220 MG CAPSULE. PO SCH (09:26)
[2020-07-18] MEDS: methylPREDNISolone SOD SUCC PF 40 MG/ML VIAL. IV SCH ×2 (09:26→21:25)
[2020-07-18] MEDS: APIXABAN 5 MG TABLET. PO SCH ×2 (09:26→21:25)
[2020-07-18] MEDS: PANTOPRAZOLE IV PUSH 40 MG VIAL. IVP SCH (09:26)
[2020-07-18] MEDS: CHOLECALCIFEROL (VITAMIN D3) 5,000 UNIT CAPSULE PO SCH (09:27)
--- NOTE | 2020-07-18 10:25 | PDOC ---
Infectious Disease Note Subjective: Subjective Sedated /intubated Continues to remain on FiO2 80% 6 of PEEP T-max 99.8 F Vital Signs: Vital Signs Vital Signs Date Time Temp Pulse Resp B/P (MAP) Pulse Ox O2 Delivery O2 Flow Rate FiO2 07/18/20 08:54 96 Ventilator 07/18/20 07:00 71 28 105/68 (80) 07/18/20 04:00 99.2 99.2 Physical Exam: PHYSICAL EXAM Visual exam done due to [place] pandemic General intubated LUNGS: Mechanical ventilation HEART: Regular rhythm ABDOMEN: Nondistended SKIN: No generalized rash Medications: Inpatient Meds: Current Medications Medications (Trade) Dose Ordered Sig/Natalee Start Time Stop Time Status Last Admin Dose Admin Acetaminophen (Tylenol) 650 mg PRN Q6HRS PRN 07/12/20 12:00 07/12/20 12:11 650 MG Apixaban (Eliquis) 5 mg BID 07/23/20 09:00 Ascorbic Acid (Vitamin C) 500 mg Q6HRS 07/04/20 18:00 07/18/20 05:58 500 MG Azithromycin (Zithromax) 500 mg 1X ONCE 07/03/20 19:15 07/03/20 19:19 DC 07/03/20 20:11 500 MG Ceftriaxone Sodium (Rocephin) 1 gm 1X ONCE 07/03/20 19:15 07/03/20 19:19 DC 07/03/20 20:11 1 GM Dextrose (Dextrose 50%-Water Syringe) 12.5 gm PRN Q15MIN PRN 07/05/20 14:15 Enoxaparin Sodium (Lovenox 150mg Syringe) 150 mg 1X ONCE 07/03/20 23:00 07/03/20 23:01 DC 07/03/20 22:45 150 MG Etomidate (Amidate) 10 mg 1X ONCE 07/04/20 09:30 07/04/20 09:31 DC 07/04/20 09:37 10 MG Fentanyl Citrate 55 ml @ 0 mls/hr CONT PRN 07/04/20 14:45 07/17/20 22:00 2 MLS/HR Furosemide (Lasix) 40 mg 1X ONCE 07/05/20 13:30 07/05/20 13:31 DC 07/05/20 14:17 40 MG Heparin Sodium (Porcine) (Heparin Sodium) 1,250 unit PRN Q6HRS PRN 07/04/20 12:00 07/16/20 12:09 DC 07/05/20 18:27 1,250 UNIT Heparin Sodium/ Dextrose 250 ml @ 0 mls/hr CONT PRN 07/04/20 12:00 07/16/20 12:09 DC 07/15/20 02:09 14.9 MLS/HR Info (Anti-Coagulation Monitoring By Pharmacy) 1 each PRN DAILY PRN 07/16/20 08:15 07/18/20 08:40 1 EACH Info (CONTRAST GIVEN -- Rx MONITORING) 1 each PRN DAILY PRN 07/03/20 20:45 07/05/20 20:44 DC Insulin Human Lispro (HumaLOG) 0-9 UNITS Q6HRS 07/13/20 12:00 07/18/20 06:26 5 UNITS Iohexol (Omnipaque 350 Mg/ml) 90 ml 1X ONCE 07/03/20 20:45 07/03/20 20:46 DC 07/03/20 21:00 90 ML Methylprednisolone Sodium Succinate (SOLU-Medrol 40MG VIAL) 40 mg Q12HR 07/17/20 09:00 07/18/20 09:26 40 MG Midazolam HCl (Versed) 5 mg STK-MED ONCE 07/04/20 09:21 07/04/20 09:21 DC Morphine Sulfate (Morphine Sulfate) 2 mg PRN Q2HR PRN 07/03/20 22:30 07/04/20 22:29 DC Norepinephrine Bitartrate 8 mg/ Dextrose 258 ml @ 16.061 mls/ hr CONT PRN 07/04/20 13:15 07/05/20 00:33 28.909 MLS/HR Ondansetron HCl (Zofran) 4 mg PRN Q8HRS PRN 07/03/20 22:30 07/04/20 22:29 DC Pantoprazole Sodium (PROTONIX VIAL for IV PUSH) 40 mg DAILYAC 07/04/20 12:30 07/18/20 09:26 40 MG Piperacillin Sod/ Tazobactam Sod (Zosyn Per Pharmacy) 1 each PRN DAILY PRN 07/04/20 12:00 07/18/20 07:46 DC Piperacillin Sod/ Tazobactam Sod 3.375 gm/Sodium Chloride 50 ml @ 100 mls/hr Q6HRS 07/04/20 12:00 07/17/20 11:11 DC 07/17/20 05:10 100 MLS/HR Propofol 100 ml @ 0 mls/hr CONT PRN 07/04/20 09:15 07/18/20 10:19 24.9 MLS/HR Remdesivir 100 mg/ Sodium Chloride 230 ml @ 460 mls/hr Q24H 07/07/20 14:30 07/10/20 14:59 DC 07/10/20 13:59 460 MLS/HR Remdesivir 200 mg/ Sodium Chloride 210 ml @ 210 mls/hr 1X ONCE 07/06/20 14:30 07/06/20 15:29 DC 07/06/20 14:51 210 MLS/HR Sodium Chloride 1,000 ml @ 100 mls/hr Q10H 07/03/20 23:00 07/04/20 22:59 DC 07/05/20 00:35 100 MLS/HR Succinylcholine Chloride (Anectine) 200 mg 1X ONCE 07/04/20 09:30 07/04/20 09:31 DC 07/04/20 09:38 200 MG Throat Lozenges (Cepacol Sore Throat Lozenge) 1 lety PRN Q2HRS PRN 07/04/20 01:15 Vecuronium [place] 50 mg/ Miscellaneous 50 ml @ 4.094 mls/ hr CONT PRN 07/12/20 14:45 07/18/20 01:56 7.5 MLS/HR Vecuronium [place] (Norcuron Bolus) 6 mg Q4H PRN 07/04/20 16:45 07/12/20 13:03 6 MG Vitamin D (Vitamin D3) 5,000 unit DAILY 07/05/20 09:00 07/18/20 09:27 5,000 UNIT Zinc Sulfate (Orazinc) 220 mg DAILY 07/05/20 09:00 07/18/20 09:26 220 MG Labs: Lab Laboratory Tests Test 07/17/20 11:06 07/17/20 17:02 07/18/20 00:29 07/18/20 05:20 Glucose (Fingerstick) 159 mg/dL (70-99) 155 mg/dL (70-99) 214 mg/dL (70-99) White Blood Count 21.5 x10^3/uL (4.0-11.0) Red Blood Count 3.71 x10^6/uL (4.30-5.70) Hemoglobin 12.3 g/dL (13.0-17.5) Hematocrit 37.1 % (39.0-53.0) Mean Corpuscular Volume 100 fL (79-100) Mean Corpuscular Hemoglobin 33 pg (25-35) Mean Corpuscular Hemoglobin Concent 33 g/dL (31-37) Red Cell Distribution Width 14.0 % (11.5-14.5) Platelet Count 201 x10^3/uL (140-400) Neutrophils (%) (Auto) 95 % (31-73) Lymphocytes (%) (Auto) 3 % (24-48) Monocytes (%) (Auto) 2 % (0-9) Eosinophils (%) (Auto) 0 % (0-3) Basophils (%) (Auto) 0 % (0-3) Neutrophils # (Auto) 20.3 x10^3/uL (1.8-7.7) Lymphocytes # (Auto) 0.6 x10^3/uL (1.0-4.8) Monocytes # (Auto) 0.5 x10^3/uL (0.0-1.1) Eosinophils # (Auto) 0.0 x10^3/uL (0.0-0.7) Basophils # (Auto) 0.0 x10^3/uL (0.0-0.2) Sodium Level 137 mmol/L (136-145) Potassium Level 4.3 mmol/L (3.5-5.1) Chloride Level 99 mmol/L (98-107) Carbon Dioxide Level 32 mmol/L (21-32) Anion Gap 6 (6-14) Blood Urea Nitrogen 13 mg/dL (8-26) Creatinine 0.6 mg/dL (0.7-1.3) Estimated GFR (Cockcroft-Gault) 142.6 Glucose Level 206 mg/dL (70-99) Calcium Level 8.2 mg/dL (8.5-10.1) Test 07/18/20 09:04 O2 Saturation 97 % (92-99) Arterial Blood pH 7.47 (7.35-7.45) Arterial Blood pCO2 at Patient Temp 43 mmHg (35-46) Arterial Blood pO2 at Patient Temp 92 mmHg (75-108) Arterial Blood HCO3 30 mmol/L (21-28) Arterial Blood Base Excess 6 mmol/L (-3-3) FiO2 75% vent Objective: Assessment: 1. COVID-19 positive. 2. Acute hypoxic respiratory failure. 3. Bilateral pulmonary emboli. 4. Hypertension. 5. Leukocytosis. On steroids Plan: Plan of Care Continue supportive care Steroids Status post remdesivir We will sign off Call with any questions d/w JAMI LUCAS MD Jul 18, 2020 10:25
[2020-07-18] MEDS ORDERED: MINERAL OIL/PETROLATUM,WHITE OPHTH OINT 3.5GM TUBE. OU PRN (10:45)
--- NOTE | 2020-07-18 11:04 | PDOC ---
PULMONARY PROGRESS NOTES DATE: 07/18/20 TIME: 11:02 Subjective PT. remains on vent support in A/C afebrile overnight on vec gtt no concerns from nursing Vitals Vital Signs Date Time Temp Pulse Resp B/P (MAP) Pulse Ox O2 Delivery O2 Flow Rate FiO2 07/18/20 10:00 62 28 86/55 (65) 96 Ventilator 07/18/20 08:00 98.8 98.8 Comments Patient seen during pandemic visual exam performed Intubated/sedated RRR no Accessory muscle use No obvious rash or edema Lungs: Other (orally intubated, clear ) Labs Laboratory Tests Test 07/16/20 11:22 07/16/20 16:34 07/16/20 23:56 07/17/20 06:07 Glucose (Fingerstick) 227 mg/dL (70-99) 202 mg/dL (70-99) 260 mg/dL (70-99) 208 mg/dL (70-99) Test 07/17/20 08:00 07/17/20 11:06 07/17/20 17:02 07/18/20 00:29 O2 Saturation 97 % (92-99) Arterial Blood pH 7.44 (7.35-7.45) Arterial Blood pCO2 at Patient Temp 45 mmHg (35-46) Arterial Blood pO2 at Patient Temp 94 mmHg (75-108) Arterial Blood HCO3 29 mmol/L (21-28) Arterial Blood Base Excess 5 mmol/L (-3-3) FiO2 80%+6 Glucose (Fingerstick) 159 mg/dL (70-99) 155 mg/dL (70-99) 214 mg/dL (70-99) Test 07/18/20 05:20 07/18/20 09:04 White Blood Count 21.5 x10^3/uL (4.0-11.0) Red Blood Count 3.71 x10^6/uL (4.30-5.70) Hemoglobin 12.3 g/dL (13.0-17.5) Hematocrit 37.1 % (39.0-53.0) Mean Corpuscular Volume 100 fL (79-100) Mean Corpuscular Hemoglobin 33 pg (25-35) Mean Corpuscular Hemoglobin Concent 33 g/dL (31-37) Red Cell Distribution Width 14.0 % (11.5-14.5) Platelet Count 201 x10^3/uL (140-400) Neutrophils (%) (Auto) 95 % (31-73) Lymphocytes (%) (Auto) 3 % (24-48) Monocytes (%) (Auto) 2 % (0-9) Eosinophils (%) (Auto) 0 % (0-3) Basophils (%) (Auto) 0 % (0-3) Neutrophils # (Auto) 20.3 x10^3/uL (1.8-7.7) Lymphocytes # (Auto) 0.6 x10^3/uL (1.0-4.8) Monocytes # (Auto) 0.5 x10^3/uL (0.0-1.1) Eosinophils # (Auto) 0.0 x10^3/uL (0.0-0.7) Basophils # (Auto) 0.0 x10^3/uL (0.0-0.2) Sodium Level 137 mmol/L (136-145) Potassium Level 4.3 mmol/L (3.5-5.1) Chloride Level 99 mmol/L (98-107) Carbon Dioxide Level 32 mmol/L (21-32) Anion Gap 6 (6-14) Blood Urea Nitrogen 13 mg/dL (8-26) Creatinine 0.6 mg/dL (0.7-1.3) Estimated GFR (Cockcroft-Gault) 142.6 Glucose Level 206 mg/dL (70-99) Calcium Level 8.2 mg/dL (8.5-10.1) O2 Saturation 97 % (92-99) Arterial Blood pH 7.47 (7.35-7.45) Arterial Blood pCO2 at Patient Temp 43 mmHg (35-46) Arterial Blood pO2 at Patient Temp 92 mmHg (75-108) Arterial Blood HCO3 30 mmol/L (21-28) Arterial Blood Base Excess 6 mmol/L (-3-3) FiO2 75% vent Laboratory Tests Test 07/17/20 11:06 07/17/20 17:02 07/18/20 00:29 07/18/20 05:20 Glucose (Fingerstick) 159 mg/dL (70-99) 155 mg/dL (70-99) 214 mg/dL (70-99) White Blood Count 21.5 x10^3/uL (4.0-11.0) Red Blood Count 3.71 x10^6/uL (4.30-5.70) Hemoglobin 12.3 g/dL (13.0-17.5) Hematocrit 37.1 % (39.0-53.0) Mean Corpuscular Volume 100 fL (79-100) Mean Corpuscular Hemoglobin 33 pg (25-35) Mean Corpuscular Hemoglobin Concent 33 g/dL (31-37) Red Cell Distribution Width 14.0 % (11.5-14.5) Platelet Count 201 x10^3/uL (140-400) Neutrophils (%) (Auto) 95 % (31-73) Lymphocytes (%) (Auto) 3 % (24-48) Monocytes (%) (Auto) 2 % (0-9) Eosinophils (%) (Auto) 0 % (0-3) Basophils (%) (Auto) 0 % (0-3) Neutrophils # (Auto) 20.3 x10^3/uL (1.8-7.7) Lymphocytes # (Auto) 0.6 x10^3/uL (1.0-4.8) Monocytes # (Auto) 0.5 x10^3/uL (0.0-1.1) Eosinophils # (Auto) 0.0 x10^3/uL (0.0-0.7) Basophils # (Auto) 0.0 x10^3/uL (0.0-0.2) Sodium Level 137 mmol/L (136-145) Potassium Level 4.3 mmol/L (3.5-5.1) Chloride Level 99 mmol/L (98-107) Carbon Dioxide Level 32 mmol/L (21-32) Anion Gap 6 (6-14) Blood Urea Nitrogen 13 mg/dL (8-26) Creatinine 0.6 mg/dL (0.7-1.3) Estimated GFR (Cockcroft-Gault) 142.6 Glucose Level 206 mg/dL (70-99) Calcium Level 8.2 mg/dL (8.5-10.1) Test 07/18/20 09:04 O2 Saturation 97 % (92-99) Arterial Blood pH 7.47 (7.35-7.45) Arterial Blood pCO2 at Patient Temp 43 mmHg (35-46) Arterial Blood pO2 at Patient Temp 92 mmHg (75-108) Arterial Blood HCO3 30 mmol/L (21-28) Arterial Blood Base Excess 6 mmol/L (-3-3) FiO2 75% vent Comments CXR 07/16 reviewed 1. Stable life support devices. 2. Stable bilateral perihilar and basilar opacities. Impression . IMPRESSION: 1. Acute hypoxemic respiratory failure. 2. Acute pulmonary embolism with cor pulmonale. 3. Possible COVID-19. 4[address] CT chest revealing ground glass opacities. 5. Hypertension. 6. History of bronchitis. 7. Elevated troponin. 8. Acute kidney injury. 9. Leukocytosis. 10. Covid-19 positive Plan . Continue current ventilatory support, Follow chest x-ray and ABG, will reduce Fi02 to 65% and PEEP to 6 Continue adequate sedation, currently on vecuronium drip Follow cardiology recommendations Antibiotics per ID-- off ABX has completed full course of remdesivir Cont. eliquis cont. steroids continue tube feeding for nutritional support DVT/GI prophylaxis, Eliquis/ Protonix Discussed with RN and RT Pt. is FULL CODE Critical Care Time 30min, reviewing labs, diagnostics and discussing with care team NERY SALINAS MD Jul 18, 2020 11:04
--- NOTE | 2020-07-18 13:48 | NUR ---
SS following up with discharge planning. SS reviewed pt chart and discussed with pt RN. Pt is currently on the vent at 75%. Tube feeds. COVID19 positive. Full Code. Self pay. Not stable. SS will continue to follow for discharge planning.
[2020-07-19] VITALS (23 sets, daily range): BP systolic 78–142; BP diastolic 52–126
[2020-07-19] MEDS ORDERED: FUROSEMIDE 40 MG/4 ML VIAL. IVP ONE (00:45)
[2020-07-19] MEDS: fentaNYL HIGH DOSE PCA 55 ML IV PRN ×2 (00:53→16:24)
[2020-07-19] MEDS: PROPOFOL 100 ML IV PRN ×5 (00:56→23:41)
[2020-07-19] MEDS: MIDAZOLAM 100mg/100ml NS BAG 100 ML IV PRN ×2 (05:06→17:26)
[2020-07-19] MEDS: INSULIN LISPRO 300 UNITS/3 ML VIAL. SQ SCH ×3 (06:00→17:13)
[2020-07-19] MEDS: ASCORBIC ACID 500 MG TABLET PO SCH ×4 (06:09→23:41)
[2020-07-19] MEDS: PANTOPRAZOLE IV PUSH 40 MG VIAL. IVP SCH (08:02)
[2020-07-19] MEDS: methylPREDNISolone SOD SUCC PF 40 MG/ML VIAL. IV SCH ×2 (08:02→21:08)
[2020-07-19] MEDS: APIXABAN 5 MG TABLET. PO SCH ×2 (08:03→21:08)
[2020-07-19] MEDS: ZINC SULFATE 220 MG CAPSULE. PO SCH (08:03)
[2020-07-19] MEDS: CHOLECALCIFEROL (VITAMIN D3) 5,000 UNIT CAPSULE PO SCH (08:03)
[2020-07-19 08:49] LABS: BASE EXCESS ABG 6 mmol/L (-3-3); HCO3 ABG 30 mmol/L (21-28); PCO2 ABG 43 mmHg (35-46); PO2 ABG 86 mmHg (75-108); SAT O2 ABG 96 % (92-99)
[2020-07-19 08:57] LABS: FIO2 ABG 75% VENT
--- NOTE | 2020-07-19 09:33 | PDOC ---
PULMONARY PROGRESS NOTES DATE: 07/19/20 TIME: 09:30 Subjective PT. remains on vent support in A/C afebrile overnight on vec gtt no concerns from nursing Vitals Vital Signs Date Time Temp Pulse Resp B/P (MAP) Pulse Ox O2 Delivery O2 Flow Rate FiO2 07/19/20 09:19 66 78/52 (61) 96 Ventilator 07/19/20 08:24 97.9 28 97.9 Comments Patient seen during pandemic visual exam performed Intubated/sedated RRR no Accessory muscle use No obvious rash or edema Lungs: Other (orally intubated, clear ) Labs Laboratory Tests Test 07/17/20 11:06 07/17/20 17:02 07/18/20 00:29 07/18/20 05:20 Glucose (Fingerstick) 159 mg/dL (70-99) 155 mg/dL (70-99) 214 mg/dL (70-99) White Blood Count 21.5 x10^3/uL (4.0-11.0) Red Blood Count 3.71 x10^6/uL (4.30-5.70) Hemoglobin 12.3 g/dL (13.0-17.5) Hematocrit 37.1 % (39.0-53.0) Mean Corpuscular Volume 100 fL (79-100) Mean Corpuscular Hemoglobin 33 pg (25-35) Mean Corpuscular Hemoglobin Concent 33 g/dL (31-37) Red Cell Distribution Width 14.0 % (11.5-14.5) Platelet Count 201 x10^3/uL (140-400) Neutrophils (%) (Auto) 95 % (31-73) Lymphocytes (%) (Auto) 3 % (24-48) Monocytes (%) (Auto) 2 % (0-9) Eosinophils (%) (Auto) 0 % (0-3) Basophils (%) (Auto) 0 % (0-3) Neutrophils # (Auto) 20.3 x10^3/uL (1.8-7.7) Lymphocytes # (Auto) 0.6 x10^3/uL (1.0-4.8) Monocytes # (Auto) 0.5 x10^3/uL (0.0-1.1) Eosinophils # (Auto) 0.0 x10^3/uL (0.0-0.7) Basophils # (Auto) 0.0 x10^3/uL (0.0-0.2) Sodium Level 137 mmol/L (136-145) Potassium Level 4.3 mmol/L (3.5-5.1) Chloride Level 99 mmol/L (98-107) Carbon Dioxide Level 32 mmol/L (21-32) Anion Gap 6 (6-14) Blood Urea Nitrogen 13 mg/dL (8-26) Creatinine 0.6 mg/dL (0.7-1.3) Estimated GFR (Cockcroft-Gault) 142.6 Glucose Level 206 mg/dL (70-99) Calcium Level 8.2 mg/dL (8.5-10.1) Test 07/18/20 09:04 07/18/20 18:00 07/18/20 23:48 07/19/20 05:51 O2 Saturation 97 % (92-99) Arterial Blood pH 7.47 (7.35-7.45) Arterial Blood pCO2 at Patient Temp 43 mmHg (35-46) Arterial Blood pO2 at Patient Temp 92 mmHg (75-108) Arterial Blood HCO3 30 mmol/L (21-28) Arterial Blood Base Excess 6 mmol/L (-3-3) FiO2 75% vent Glucose (Fingerstick) 163 mg/dL (70-99) 144 mg/dL (70-99) 185 mg/dL (70-99) Test 07/19/20 08:00 O2 Saturation 96 % (92-99) Arterial Blood pH 7.47 (7.35-7.45) Arterial Blood pCO2 at Patient Temp 43 mmHg (35-46) Arterial Blood pO2 at Patient Temp 86 mmHg (75-108) Arterial Blood HCO3 30 mmol/L (21-28) Arterial Blood Base Excess 6 mmol/L (-3-3) FiO2 75% vent Laboratory Tests Test 07/18/20 18:00 07/18/20 23:48 07/19/20 05:51 07/19/20 08:00 Glucose (Fingerstick) 163 mg/dL (70-99) 144 mg/dL (70-99) 185 mg/dL (70-99) O2 Saturation 96 % (92-99) Arterial Blood pH 7.47 (7.35-7.45) Arterial Blood pCO2 at Patient Temp 43 mmHg (35-46) Arterial Blood pO2 at Patient Temp 86 mmHg (75-108) Arterial Blood HCO3 30 mmol/L (21-28) Arterial Blood Base Excess 6 mmol/L (-3-3) FiO2 75% vent Comments CXR 07/16 reviewed 1. Stable life support devices. 2. Stable bilateral perihilar and basilar opacities. Impression . IMPRESSION: 1. Acute hypoxemic respiratory failure. 2. Acute pulmonary embolism with cor pulmonale. 3. Possible COVID-19. 4[address] CT chest revealing ground glass opacities. 5. Hypertension. 6. History of bronchitis. 7. Elevated troponin. 8. Acute kidney injury. 9. Leukocytosis. 10. Covid-19 positive Plan . Continue current ventilatory support, gradually improving oxygenation Follow chest x-ray and ABG, will reduce Fi02 to 65% and PEEP to 6 Continue adequate sedation, currently off vecuronium drip Follow cardiology recommendations Antibiotics per ID-- off ABX has completed full course of remdesivir Cont. eliquis cont. steroids continue tube feeding for nutritional support DVT/GI prophylaxis, Eliquis/ Protonix Discussed with RN and RT Pt. is FULL CODE Critical Care Time 30min, reviewing labs, diagnostics and discussing with care team NERY SALINAS MD Jul 19, 2020 09:33
--- NOTE | 2020-07-19 09:54 | PDOC ---
PROGRESS NOTES Date of Service: DATE: 07/19/20 TIME: 09:50 Chief Complaint Chief Complaint Acute hypoxic respiratory failure requiring intubation COVID-19 PUI Subsegmental bilateral PE Leukocytosis NSTEMI AKA Lactic acidosis Hyponatremia Plan: Appreciate pulmonology recommendations Continue current ventilatory support, currently on 80% and PEEP of 6, avoid increasing PEEP 2/2 risk of barotrauma Follow chest x-ray and ABG, vent management as per pulmonology Heparin infusion will address bilateral PEs and NSTEMI, monitor for bleeding. Solu-Medrol 40 mg every 12 hours Appreciate ID recommendationscontinue Remdesivir and empiric antibiotics IV fluids I discussed code status with niece over the phone yesterday evening, continues to be a full code. Patient prognosis and current state was explained at length as well. All concerns addressed to the best of my abilities. A total of 45 was spent in reviewing chart, labs, and images. Discussed with RN and SW. History of Present Illness History of Present Illness 07/19/2020 Patient hypotensive today, we will follow recommendations from critical healthcare analyst. Vent management as per media consultant, no other complaints. 07/18/2020 Patient with no acute events reported overnight, fio2 is now at 75% PEEP of 6, Vent management as per pulmonary media consultant slight increase in temperature noted over the lat 24 hours. Will continue to follow 07/17/2020 Patient with no acute events reported overnight, contineus to require an fio2 of 80%, continue with supportive measures. 07/16/2020 Patient with no acute events reported overnight, patient continues to require quite a bit of FiO2 at 80%. Vent management as per media consultant, will place a call to family members after rounding. Discussed with RN 07/15/2020 Patient seen and examined bedside in the ICU. FiO2 80% PEEP of 6.pH 7.56, PCO2 32, PO2 56, HCO3 28. Will adjust respiratory rate accordingly to correct pH.> 50% time spent in patient chart, labs, and imaging review and in discussion with RN and SW 07/14/2020 Patient seen and examined bedside. FiO2 65% and PEEP of 6 on vent. ABG: pH 7.26, PCO2 77, PO2 114, HCO3 34. We will adjust respiratory rate or tidal volume to titrate pH.> 50% time spent in patient chart, labs, and imaging review and in discussion with RN and SW 07/13/2020 No acute events overnight. Patient examined bedside sedated and intubated. FiO2 70% PEEP of 6. Improved ABGs.> 50% time spent in patient chart, labs, and imaging review and in discussion with RN and JAVIER 07/12/2020 Patient seen and examined in the ICU. Sedated and intubated. FiO2 65, PEEP of 8 with improved oxygenation. pH 7.4, PCO2 48, PO2 94, HCO3 30. +500 cc fluid balance.> 50% time spent in patient chart, labs, and imaging review and in discussion with RN and JAVIER 07/11/2020 Patient seen and examined bedside in the ICU. Patient continues to be intubated and sedated. FiO2 75%, PEEP of 10. pH 7.40, PCO2 44, PO2 is 135, HCO3 26. Can likely decrease FiO2 due to improved oxygenation. +173 cc in the past 24 hours 07/10/2020 Patient seen and examined bedside in ICU. Patient is intubated and sedated. FiO2 90%, PEEP of 10, respiratory rate of 30. ABG: pH is 7.41, PCO2 42, PO2 113, HCO3 26. 07/09/2020 Patient seen and examined in the ICU. Intubated and sedated. Vent settings FiO2 90%, PEEP of 10, respiratory rate of 30. 07/05: Patient seen in ICU, still intubated and sedated. COVID-19 pending. Patient remains on heparin infusion. Discussed with RN, will try to have central line placed per anesthesia. 07/06: Patient seen in ICU. Still FiO2 100% on vent and sedated. COVID-19 positive. Continue heparin infusion, Zosyn, steroids. 07/07: Covid positive patient seen in ICU. On vent with FiO2 100%, PEEP 10. Continue remdesivir, steroids, Zosyn. Continue to monitor 07/08: Patient seen in Covid ICU. Still on vent with FiO2 100%, PEEP 10. Afebrile. No acute events overnight. Continue steroids, antibiotics, and remdesivir. Patient is 49-year-old male with past medical history of hypertension, who presents to the ED with complaints of worsening shortness of breath over the past 5 days. Associated sore throat, fatigue, and generalized weakness. Patient was reportedly tested for COVID-19 last Thursday, but he had negative test results. His symptoms acutely worsened yesterday. Upon arrival to the ER his oxygen saturation was 60% on room air. He was placed on BiPAP and admitted to the ICU. Patient was subsequently intubated due to worsening respiratory failure. Vitals Vitals Vital Signs Date Time Temp Pulse Resp B/P (MAP) Pulse Ox O2 Delivery O2 Flow Rate FiO2 07/19/20 09:19 66 78/52 (61) 96 Ventilator 07/19/20 08:24 97.9 28 97.9 Physical Exam Physical Exam Visual exam done due to camp[place] pandemic General intubated LUNGS: Mechanical ventilation HEART: Regular rhythm ABDOMEN: Nondistended SKIN: No generalized rash General: Other (Sedated and intubated) Heart: Regular rate (SR/ST) Lungs: Other (orally intubated, clear ) Abdomen: Other (Nondistended) Extremities: No clubbing, No cyanosis Skin: No rashes, No breakdown Labs LABS Laboratory Tests Test 07/18/20 18:00 07/18/20 23:48 07/19/20 05:51 07/19/20 08:00 Glucose (Fingerstick) 163 mg/dL (70-99) 144 mg/dL (70-99) 185 mg/dL (70-99) O2 Saturation 96 % (92-99) Arterial Blood pH 7.47 (7.35-7.45) Arterial Blood pCO2 at Patient Temp 43 mmHg (35-46) Arterial Blood pO2 at Patient Temp 86 mmHg (75-108) Arterial Blood HCO3 30 mmol/L (21-28) Arterial Blood Base Excess 6 mmol/L (-3-3) FiO2 75% vent Assessment and Plan Assessmemt and Plan Problems Medical Problems: (1) Acute respiratory failure with hypoxia Status: Acute (2) PRIYA (acute kidney injury) Status: Acute (3) Elevated troponin I level Status: Acute (4) Pulmonary emboli Status: Acute (5) Suspected COVID-19 virus infection Status: Acute Comment Review of Relevant I have reviewed the following items trino (where applicable) has been applied. Labs Laboratory Tests Test 07/17/20 11:06 07/17/20 17:02 07/18/20 00:29 07/18/20 05:20 Glucose (Fingerstick) 159 mg/dL (70-99) 155 mg/dL (70-99) 214 mg/dL (70-99) White Blood Count 21.5 x10^3/uL (4.0-11.0) Red Blood Count 3.71 x10^6/uL (4.30-5.70) Hemoglobin 12.3 g/dL (13.0-17.5) Hematocrit 37.1 % (39.0-53.0) Mean Corpuscular Volume 100 fL (79-100) Mean Corpuscular Hemoglobin 33 pg (25-35) Mean Corpuscular Hemoglobin Concent 33 g/dL (31-37) Red Cell Distribution Width 14.0 % (11.5-14.5) Platelet Count 201 x10^3/uL (140-400) Neutrophils (%) (Auto) 95 % (31-73) Lymphocytes (%) (Auto) 3 % (24-48) Monocytes (%) (Auto) 2 % (0-9) Eosinophils (%) (Auto) 0 % (0-3) Basophils (%) (Auto) 0 % (0-3) Neutrophils # (Auto) 20.3 x10^3/uL (1.8-7.7) Lymphocytes # (Auto) 0.6 x10^3/uL (1.0-4.8) Monocytes # (Auto) 0.5 x10^3/uL (0.0-1.1) Eosinophils # (Auto) 0.0 x10^3/uL (0.0-0.7) Basophils # (Auto) 0.0 x10^3/uL (0.0-0.2) Sodium Level 137 mmol/L (136-145) Potassium Level 4.3 mmol/L (3.5-5.1) Chloride Level 99 mmol/L (98-107) Carbon Dioxide Level 32 mmol/L (21-32) Anion Gap 6 (6-14) Blood Urea Nitrogen 13 mg/dL (8-26) Creatinine 0.6 mg/dL (0.7-1.3) Estimated GFR (Cockcroft-Gault) 142.6 Glucose Level 206 mg/dL (70-99) Calcium Level 8.2 mg/dL (8.5-10.1) Test 07/18/20 09:04 07/18/20 18:00 07/18/20 23:48 07/19/20 05:51 O2 Saturation 97 % (92-99) Arterial Blood pH 7.47 (7.35-7.45) Arterial Blood pCO2 at Patient Temp 43 mmHg (35-46) Arterial Blood pO2 at Patient Temp 92 mmHg (75-108) Arterial Blood HCO3 30 mmol/L (21-28) Arterial Blood Base Excess 6 mmol/L (-3-3) FiO2 75% vent Glucose (Fingerstick) 163 mg/dL (70-99) 144 mg/dL (70-99) 185 mg/dL (70-99) Test 07/19/20 08:00 O2 Saturation 96 % (92-99) Arterial Blood pH 7.47 (7.35-7.45) Arterial Blood pCO2 at Patient Temp 43 mmHg (35-46) Arterial Blood pO2 at Patient Temp 86 mmHg (75-108) Arterial Blood HCO3 30 mmol/L (21-28) Arterial Blood Base Excess 6 mmol/L (-3-3) FiO2 75% vent Laboratory Tests Test 07/18/20 18:00 07/18/20 23:48 07/19/20 05:51 07/19/20 08:00 Glucose (Fingerstick) 163 mg/dL (70-99) 144 mg/dL (70-99) 185 mg/dL (70-99) O2 Saturation 96 % (92-99) Arterial Blood pH 7.47 (7.35-7.45) Arterial Blood pCO2 at Patient Temp 43 mmHg (35-46) Arterial Blood pO2 at Patient Temp 86 mmHg (75-108) Arterial Blood HCO3 30 mmol/L (21-28) Arterial Blood Base Excess 6 mmol/L (-3-3) FiO2 75% vent Microbiology 07/03/20 Blood Culture - Final, Complete NO GROWTH AFTER 5 DAYS Medications Current Medications Ceftriaxone Sodium (Rocephin) 1 gm 1X ONCE IVP Last administered on 07/03/20at 20:11; Start 07/03/20 at 19:15; Stop 07/03/20 at 19:19; Status DC Azithromycin (Zithromax) 500 mg 1X ONCE PO Last administered on 07/03/20at 20:11; Start 07/03/20 at 19:15; Stop 07/03/20 at 19:19; Status DC Sodium Chloride 1,000 ml @ 1,000 mls/hr 1X ONCE IV Last administered on 07/03/20at 20:11; Start 07/03/20 at 19:15; Stop 07/03/20 at 20:14; Status DC Sodium Chloride 1,000 ml @ 1,000 mls/hr 1X ONCE IV Last administered on 07/03/20at 19:15; Start 07/03/20 at 19:15; Stop 07/03/20 at 20:14; Status DC Iohexol (Omnipaque 350 Mg/ml) 90 ml 1X ONCE IV Last administered on 07/03/20at 21:00; Start 07/03/20 at 20:45; Stop 07/03/20 at 20:46; Status DC Info (CONTRAST GIVEN -- Rx MONITORING) 1 each PRN DAILY PRN MC SEE COMMENTS; Start 07/03/20 at 20:45; Stop 07/05/20 at 20:44; Status DC Enoxaparin Sodium (Lovenox 150mg Syringe) 150 mg 1X ONCE SQ Last administered on 07/03/20at 22:45; Start 07/03/20 at 23:00; Stop 07/03/20 at 23:01; Status DC Ondansetron HCl (Zofran) 4 mg PRN Q8HRS PRN IV NAUSEA/VOMITING 1ST CHOICE; Start 07/03/20 at 22:30; Stop 07/04/20 at 22:29; Status DC Morphine Sulfate (Morphine Sulfate) 2 mg PRN Q2HR PRN IV SEVERE PAIN 7-10; Start 07/03/20 at 22:30; Stop 07/04/20 at 22:29; Status DC Sodium Chloride 1,000 ml @ 100 mls/hr Q10H IV Last administered on 07/05/20at 00:35; Start 07/03/20 at 23:00; Stop 07/04/20 at 22:59; Status DC Acetaminophen (Tylenol) 650 mg PRN Q4HRS PRN PO FEVER > 100.3'F; Start 07/03/20 at 22:30; Stop 07/04/20 at 22:29; Status DC Throat Lozenges (Cepacol Sore Throat Lozenge) 1 lety PRN Q2HRS PRN PO SORE THROAT; Start 07/04/20 at 01:15 Furosemide (Lasix) 20 mg 1X ONCE IVP Last administered on 07/04/20at 10:10; Start 07/04/20 at 10:00; Stop 07/04/20 at 10:01; Status DC Succinylcholine Chloride (Anectine) 200 mg STK-MED ONCE .ROUTE ; Start 07/04/20 at 09:09; Stop 07/04/20 at 09:09; Status DC Etomidate (Amidate) 20 mg STK-MED ONCE IV ; Start 07/04/20 at 09:09; Stop 07/04/20 at 09:09; Status DC Fentanyl Citrate 30 ml @ 0 mls/hr CONT PRN IV SEE PROTOCOL Last administered on 07/04/20at 09:36; Start 07/04/20 at 09:15; Stop 07/04/20 at 14:36; Status DC Propofol 100 ml @ 0 mls/hr CONT PRN IV SEE PROTOCOL Last administered on 07/19/20at 06:10; Start 07/04/20 at 09:15 Midazolam HCl 100 ml @ 0 mls/hr CONT PRN IV SEE PROTOCOL Last administered on 07/19/20at 05:06; Start 07/04/20 at 09:15 Midazolam HCl (Versed) 5 mg 1X STAT IV Last administered on 07/04/20at 09:41; Start 07/04/20 at 09:21; Stop 07/04/20 at 09:22; Status DC Midazolam HCl (Versed) 5 mg STK-MED ONCE .ROUTE ; Start 07/04/20 at 09:21; Stop 07/04/20 at 09:21; Status DC Etomidate (Amidate) 10 mg 1X ONCE IV Last administered on 07/04/20at 09:37; Start 07/04/20 at 09:30; Stop 07/04/20 at 09:31; Status DC Succinylcholine Chloride (Anectine) 200 mg 1X ONCE IV Last administered on 07/04/20at 09:38; Start 07/04/20 at 09:30; Stop 07/04/20 at 09:31; Status DC Vecuronium Veneta (Norcuron Bolus) 6 mg 1X ONCE IV Last administered on 07/04at 09:38; Start 07/04/20 at 09:45; Stop 07/04/20 at 09:46; Status DC Vecuronium Veneta (Norcuron Bolus) 10 mg STK-MED ONCE IV ; Start 07/04/20 at 09:33; Stop 07/04/20 at 09:33; Status DC Pantoprazole Sodium (PROTONIX VIAL for IV PUSH) 40 mg DAILYAC IVP Last administered on 07/19/20at 08:02; Start 07/04/20 at 12:30 Methylprednisolone Sodium Succinate (SOLU-Medrol 40MG VIAL) 40 mg Q8HRS IV Last administered on 07/11/20at 05:41; Start 07/04/20 at 14:00; Stop 07/11/20 at 11:36; Status DC Piperacillin Sod/ Tazobactam Sod (Zosyn Per Pharmacy) 1 each PRN DAILY PRN MC SEE COMMENTS; Start 07/04/20 at 12:00; Stop 07/18/20 at 07:46; Status DC Heparin Sodium/ Dextrose 250 ml @ 0 mls/hr CONT PRN IV PER PROTOCOL Last administered on 07/15/20at 02:09; Start 07/04/20 at 12:00; Stop 07/16/20 at 12:09; Status DC Heparin Sodium (Porcine) (Heparin Sodium) 2,500 unit PRN Q6HRS PRN IV FOR UFH LEVEL LESS THAN 0.2 Last administered on 07/15/20at 09:19; Start 07/04/20 at 12:00; Stop 07/16/20 at 12:09; Status DC Heparin Sodium (Porcine) (Heparin Sodium) 1,250 unit PRN Q6HRS PRN IV FOR UFH LEVEL 0.2 - 0.29 Last administered on 07/05/20at 18:27; Start 07/04/20 at 12:00; Stop 07/16/20 at 12:09; Status DC Piperacillin Sod/ Tazobactam Sod 3.375 gm/Sodium Chloride 50 ml @ 100 mls/hr Q6HRS IV Last administered on 07/17/20at 05:10; Start 07/04/20 at 12:00; Stop 07/17/20 at 11:11; Status DC Zinc Sulfate (Orazinc) 220 mg DAILY PO Last administered on 07/19/20at 08:03; Start 07/05/20 at 09:00 Ascorbic Acid (Vitamin C) 500 mg Q6HRS PO Last administered on 07/19/20at 08:03; Start 07/04/20 at 18:00 Vitamin D (Vitamin D3) 5,000 unit DAILY PO Last administered on 07/19/20at 08:03; Start 07/05/20 at 09:00 Vecuronium Veneta (Norcuron Bolus) 6 mg 1X ONCE IV Last administered on 07/04/20at 13:27; Start 07/04/20 at 13:15; Stop 07/04/20 at 13:16; Status DC Norepinephrine Bitartrate 8 mg/ Dextrose 258 ml @ 16.061 mls/ hr CONT PRN IV PER PROTOCOL Last administered on 07/05/20at 00:33; Start 07/04/20 at 13:15; Stop 07/18/20 at 11:01; Status DC Fentanyl Citrate 55 ml @ 0 mls/hr CONT PRN IV SEE PROTOCOL Last administered on 07/19/20at 00:53; Start 07/04/20 at 14:45 Vecuronium Ven[place] (Norcuron Bolus) 6 mg Q4H PRN IV OVERBREATHING VENT/out of sync Last administered on 07/12/20at 13:03; Start 07/04/20 at 16:45 Furosemide (Lasix) 40 mg 1X ONCE IVP Last administered on 07/05/20at 14:17; Start 07/05/20 at 13:30; Stop 07/05/20 at 13:31; Status DC Insulin Human Lispro (HumaLOG) 0-5 UNITS Q6HRS SQ Last administered on 07/11/20at 05:42; Start 07/05/20 at 18:00; Stop 07/11/20 at 07:54; Status DC Dextrose (Dextrose 50%-Water Syringe) 12.5 gm PRN Q15MIN PRN IV SEE COMMENTS; Start 07/05/20 at 14:15 Insulin Human Lispro (HumaLOG) 2 units 1X ONCE SQ Last administered on 07/05/20at 14:19; Start 07/05/20 at 14:30; Stop 07/05/20 at 14:31; Status DC Remdesivir 200 mg/ Sodium Chloride 210 ml @ 210 mls/hr 1X ONCE IV Last administered on 07/06/20at 14:51; Start 07/06/20 at 14:30; Stop 07/06/20 at 15:29; Status DC Remdesivir 100 mg/ Sodium Chloride 230 ml @ 460 mls/hr Q24H IV Last administered on 07/10/20at 13:59; Start 07/07/20 at 14:30; Stop 07/10/20 at 14:59; Status DC Insulin Human Lispro (HumaLOG) 0-9 UNITS TIDWMEALS SQ Last administered on 07/12/20at 11:31; Start 07/11/20 at 08:00; Stop 07/13/20 at 10:17; Status DC Methylprednisolone Sodium Succinate (SOLU-Medrol 40MG VIAL) 40 mg DAILY IV Last administered on 07/14/20at 07:57; Start 07/12/20 at 09:00; Stop 07/14/20 at 09:26; Status DC Acetaminophen (Tylenol) 650 mg PRN Q6HRS PRN PEG MILD PAIN / TEMP > 100.3'F Last administered on 07/12/20at 12:11; Start 07/12/20 at 12:00 Vecuronium Veneta 50 mg/ Miscellaneous 50 ml @ 4.094 mls/ hr CONT PRN IV SEE I/O RECORD Last administered on 07/18/20at 01:56; Start 07/12/20 at 14:45 Insulin Human Lispro (HumaLOG) 0-9 UNITS Q6HRS SQ Last administered on 07/18/20at 18:00; Start 07/13/20 at 12:00 Methylprednisolone Sodium Succinate (SOLU-Medrol 40MG VIAL) 40 mg Q12HR IV Last administered on 07/16/20at 09:57; Start 07/14/20 at 21:00; Stop 07/16/20 at 12:10; Status DC Info (Anti-Coagulation Monitoring By Pharmacy) 1 each PRN DAILY PRN MC SEE COMMENTS Last administered on 07/18/20at 08:40; Start 07/16/20 at 08:15 Apixaban (Eliquis) 10 mg BID PO Last administered on 07/19/20at 08:03; Start 07/16/20 at 13:00; Stop 07/22/20 at 21:01 Methylprednisolone Sodium Succinate (SOLU-Medrol 40MG VIAL) 40 mg DAILY IV Last administered on 07/16/20at 12:22; Start 07/16/20 at 13:00; Stop 07/17/20 at 08:24; Status DC Apixaban (Eliquis) 5 mg BID PO ; Start 07/23/20 at 09:00 Methylprednisolone Sodium Succinate (SOLU-Medrol 40MG VIAL) 40 mg Q12HR IV Last administered on 07/19/20at 08:02; Start 07/17/20 at 09:00 Multi-Ingred Cream/Lotion/Oil/ Oint (Artificial Tears Eye Ointment) 1 wenceslao PRN Q1HR PRN OU DRY EYE; Start 07/18/20 at 10:45 Furosemide (Lasix) 40 mg 1X ONCE IVP Last administered on 07/19/20at 00:55; Start 07/19/20 at 00:45; Stop 07/19/20 at 00:46; Status DC Vitals/I & O Vital Sign - Last 24 Hours 07/18/20 07/18/20 07/18/20 07/18/20 10:00 11:00 12:00 12:00 Temp 98.4 98.4 Pulse 62 56 56 Resp 28 B/P (MAP) 86/55 (65) 95/63 (74) 94/59 (71) Pulse Ox 96 96 93 O2 Delivery Ventilator Ventilator Mechanical Ventilator Ventilator 07/18/20 07/18/20 07/18/20 07/18/20 12:03 13:00 14:00 15:00 Pulse 56 56 54 Resp B/P (MAP) 94/59 (71) 97/64 (75) 87/56 (66) Pulse Ox 96 96 96 96 O2 Delivery Ventilator Ventilator Ventilator Ventilator 07/18/20 07/18/20 07/18/20 07/18/20 16:00 16:00 16:17 17:00 Temp 97.8 97.8 Pulse 54 62 B/P (MAP) 115/74 (88) Pulse Ox 93 95 98 O2 Delivery Mechanical Ventilator Ventilator Ventilator Ventilator 07/18/20 07/18/20 07/18/20 07/18/20 18:00 19:00 20:00 20:00 Temp 98.7 98.7 Pulse 74 76 78 Resp 28 B/P (MAP) 129/82 (98) 129/75 (93) 138/82 (100) Pulse Ox 96 96 96 O2 Delivery Ventilator Ventilator Mechanical Ventilator Ventilator 07/18/20 07/18/20 07/18/20 07/18/20 21:00 21:27 22:00 23:00 Pulse 77 81 83 Resp 28 B/P (MAP) 134/81 (98) 155/91 (112) 148/90 (109) Pulse Ox 96 97 95 92 O2 Delivery Ventilator Ventilator Ventilator Ventilator 07/18/20 07/19/20 07/19/20 07/19/20 23:44 00:00 00:00 00:53 Temp 98.5 98.5 Pulse 90 Resp 28 28 B/P (MAP) 139/76 (97) Pulse Ox 97 94 O2 Delivery Ventilator Ventilator Mechanical Ventilator Ventilator 07/19/20 07/19/20 07/19/20 07/19/20 01:00 01:25 02:00 03:00 Pulse 93 91 103 Resp 30 30 36 28 B/P (MAP) 142/82 (102) 138/83 (101) 139/83 (101) Pulse Ox 93 92 94 O2 Delivery Ventilator Ventilator Ventilator Ventilator 07/19/20 07/19/20 07/19/20 07/19/20 04:00 04:00 05:00 05:19 Temp 98.1 98.1 Pulse 105 86 Resp 28 28 B/P (MAP) /126 142/88 (106) Pulse Ox 93 91 93 O2 Delivery Ventilator Mechanical Ventilator Ventilator Ventilator 07/19/20 07/19/20 07/19/20 07/19/20 06:00 08:00 08:24 08:30 Temp 97.9 97.9 Pulse 72 66 Resp 28 28 B/P (MAP) 90/56 (67) 90/56 (67) Pulse Ox 92 96 96 O2 Delivery Ventilator Mechanical Ventilator Ventilator Ventilator 07/19/20 09:19 Pulse 66 B/P (MAP) 78/52 (61) Pulse Ox 96 O2 Delivery Ventilator Intake and Output0 07/18/20 07/18/20 07/19/20 15:00 23:00 07:00 Intake Total 200 ml 1125.5 ml 1000 ml Output Total 1750 ml 875 ml 3200 ml Balance -1550 ml 250.5 ml -2200 ml Justicifation of Admission Dx: Justifications for Admission: Justification of Admission Dx: Yes SCOTT RUSH MD Jul 19, 2020 09:54
[2020-07-20] VITALS (24 sets, daily range): BP systolic 87–129; BP diastolic 49–76
[2020-07-20] MEDS: MIDAZOLAM 100mg/100ml NS BAG 100 ML IV PRN ×3 (02:09→23:18)
[2020-07-20] MEDS: PROPOFOL 100 ML IV PRN ×6 (02:43→23:43)
[2020-07-20] MEDS: fentaNYL HIGH DOSE PCA 55 ML IV PRN ×2 (04:21→16:28)
[2020-07-20] MEDS: ASCORBIC ACID 500 MG TABLET PO SCH ×4 (05:35→23:43)
[2020-07-20] MEDS: INSULIN LISPRO 300 UNITS/3 ML VIAL. SQ SCH ×4 (06:00→18:14)
[2020-07-20 07:01] LABS: BASO % 0 % (0-3); EOS % 0 % (0-3); HEMATOCRIT 32.2 % (39.0-53.0); HEMOGLOBIN 10.7 g/dL (13.0-17.5); LYMPH # 0.5 x10^3/uL (1.0-4.8); LYMPH % 3 % (24-48); MEAN CORPUSCULAR HEMOGLOBIN 33 pg (25-35); MEAN CORPUSCULAR HGB CONC 33 g/dL (31-37); MEAN CORPUSCULAR VOLUME 100 fL (79-100); MONO # 0.5 x10^3/uL (0.0-1.1); MONO % 3 % (0-9); NEUT # 15.4 x10^3/uL (1.8-7.7); NEUT % 94 % (31-73); PLATELET COUNT 179 x10^3/uL (140-400); RED BLOOD COUNT 3.23 x10^6/uL (4.30-5.70); RED CELL DISTRIBUTION WIDTH 13.7 % (11.5-14.5); WHITE BLOOD COUNT 16.4 x10^3/uL (4.0-11.0)
[2020-07-20 07:13] LABS: CALCIUM 8.4 mg/dL (8.5-10.1); CREATININE 0.6 mg/dL (0.7-1.3); GFR 142.6; POTASSIUM 4.2 mmol/L (3.5-5.1)
[2020-07-20] MEDS: PANTOPRAZOLE IV PUSH 40 MG VIAL. IVP SCH (07:32)
[2020-07-20] MEDS: methylPREDNISolone SOD SUCC PF 40 MG/ML VIAL. IV SCH (07:54)
[2020-07-20] MEDS: CHOLECALCIFEROL (VITAMIN D3) 5,000 UNIT CAPSULE PO SCH (07:54)
[2020-07-20] MEDS: ZINC SULFATE 220 MG CAPSULE. PO SCH (07:54)
[2020-07-20] MEDS: APIXABAN 5 MG TABLET. PO SCH ×2 (07:57→20:38)
--- NOTE | 2020-07-20 08:11 | RAD ---
EXAM: Chest, single view. HISTORY: Ventilatory support. COMPARISON: 07/16/2020 FINDINGS: A frontal view of the chest is obtained. There is no endotracheal tube within the mid trachea. There is a nasogastric tube within the stomach. There is a right PICC with the tip in the superior vena cava. There is stable to slight increased diffuse interstitial and alveolar infiltrate. No pleural effusion or pneumothorax is seen. There is a stable cardiac silhouette. IMPRESSION: 1. Stable to slight increased diffuse mixed interstitial and alveolar infiltrate. 2. Stable support lines and tubes. Electronically signed by: Sil Goodson MD (07/20/2020 8:09 AM) [facility]
--- NOTE | 2020-07-20 08:12 | PDOC ---
PROGRESS NOTES Date of Service: DATE: 07/20/20 TIME: 08:10 Chief Complaint Chief Complaint Acute hypoxic respiratory failure requiring intubation COVID-19 PUI Subsegmental bilateral PE Leukocytosis NSTEMI AKA Lactic acidosis Hyponatremia Plan: Appreciate pulmonology recommendations Continue current ventilatory support, currently on 70% and PEEP of 6, avoid increasing PEEP 2/2 risk of barotrauma Follow chest x-ray and ABG, vent management as per pulmonology Heparin has been transitioned to Xarelto Solu-Medrol 40 mg every 12 hours Appreciate ID recommendationscontinue Remdesivir and empiric antibiotics IV fluids will place a phone call to family later in the day. Discussed with RN and SW. History of Present Illness History of Present Illness 09/19/2019 Patient continues to be pretty much the same , fio2 is at 70%, heparin 07/19/2020 Patient hypotensive today, we will follow recommendations from critical overnight caregiver. Vent management as per design center consultant, no other complaints. 07/18/2020 Patient with no acute events reported overnight, fio2 is now at 75% PEEP of 6, Vent management as per pulmonary design center consultant slight increase in temperature noted over the lat 24 hours. Will continue to follow 07/17/2020 Patient with no acute events reported overnight, contineus to require an fio2 of 80%, continue with supportive measures. 07/16/2020 Patient with no acute events reported overnight, patient continues to require quite a bit of FiO2 at 80%. Vent management as per design center consultant, will place a call to family members after rounding. Discussed with RN 07/15/2020 Patient seen and examined bedside in the ICU. FiO2 80% PEEP of 6.pH 7.56, PCO2 32, PO2 56, HCO3 28. Will adjust respiratory rate accordingly to correct pH.> 50% time spent in patient chart, labs, and imaging review and in discussion with RN and SW 07/14/2020 Patient seen and examined bedside. FiO2 65% and PEEP of 6 on vent. ABG: pH 7.26, PCO2 77, PO2 114, HCO3 34. We will adjust respiratory rate or tidal volume to titrate pH.> 50% time spent in patient chart, labs, and imaging review and in discussion with RN and SW 07/13/2020 No acute events overnight. Patient examined bedside sedated and intubated. FiO2 70% PEEP of 6. Improved ABGs.> 50% time spent in patient chart, labs, and imaging review and in discussion with RN and JAVIER 07/12/2020 Patient seen and examined in the ICU. Sedated and intubated. FiO2 65, PEEP of 8 with improved oxygenation. pH 7.4, PCO2 48, PO2 94, HCO3 30. +500 cc fluid balance.> 50% time spent in patient chart, labs, and imaging review and in discussion with RN and JAVIER 07/11/2020 Patient seen and examined bedside in the ICU. Patient continues to be intubated and sedated. FiO2 75%, PEEP of 10. pH 7.40, PCO2 44, PO2 is 135, HCO3 26. Can likely decrease FiO2 due to improved oxygenation. +173 cc in the past 24 hours 07/10/2020 Patient seen and examined bedside in ICU. Patient is intubated and sedated. FiO2 90%, PEEP of 10, respiratory rate of 30. ABG: pH is 7.41, PCO2 42, PO2 113, HCO3 26. 07/09/2020 Patient seen and examined in the ICU. Intubated and sedated. Vent settings FiO2 90%, PEEP of 10, respiratory rate of 30. 07/05: Patient seen in ICU, still intubated and sedated. COVID-19 pending. Patient remains on heparin infusion. Discussed with RN, will try to have central line placed per anesthesia. 07/06: Patient seen in ICU. Still FiO2 100% on vent and sedated. COVID-19 positive. Continue heparin infusion, Zosyn, steroids. 07/07: Covid positive patient seen in ICU. On vent with FiO2 100%, PEEP 10. Continue remdesivir, steroids, Zosyn. Continue to monitor 07/08: Patient seen in Covid ICU. Still on vent with FiO2 100%, PEEP 10. Afebrile. No acute events overnight. Continue steroids, antibiotics, and remdesivir. Patient is 49-year-old male with past medical history of hypertension, who presents to the ED with complaints of worsening shortness of breath over the past 5 days. Associated sore throat, fatigue, and generalized weakness. Patient was reportedly tested for COVID-19 last Thursday, but he had negative test results. His symptoms acutely worsened yesterday. Upon arrival to the ER his oxygen saturation was 60% on room air. He was placed on BiPAP and admitted to the ICU. Patient was subsequently intubated due to worsening respiratory failure. Vitals Vitals Vital Signs Date Time Temp Pulse Resp B/P (MAP) Pulse Ox O2 Delivery O2 Flow Rate FiO2 07/20/20 07:00 74 28 113/66 (82) 95 Ventilator 07/20/20 04:00 98.5 98.5 Physical Exam Physical Exam Visual exam done due to [place] pandemic General intubated LUNGS: Mechanical ventilation HEART: Regular rhythm ABDOMEN: Nondistended SKIN: No generalized rash General: Other (Sedated and intubated) Heart: Regular rate (SR/ST) Lungs: Other (orally intubated, clear ) Abdomen: Other (Nondistended) Extremities: No clubbing, No cyanosis Skin: No rashes, No breakdown Labs LABS Laboratory Tests Test 07/19/20 11:16 07/19/20 17:35 07/19/20 23:47 07/20/20 05:40 Glucose (Fingerstick) 214 mg/dL (70-99) 207 mg/dL (70-99) 195 mg/dL (70-99) 210 mg/dL (70-99) Test 07/20/20 06:30 White Blood Count 16.4 x10^3/uL (4.0-11.0) Red Blood Count 3.23 x10^6/uL (4.30-5.70) Hemoglobin 10.7 g/dL (13.0-17.5) Hematocrit 32.2 % (39.0-53.0) Mean Corpuscular Volume 100 fL (79-100) Mean Corpuscular Hemoglobin 33 pg (25-35) Mean Corpuscular Hemoglobin Concent 33 g/dL (31-37) Red Cell Distribution Width 13.7 % (11.5-14.5) Platelet Count 179 x10^3/uL (140-400) Neutrophils (%) (Auto) 94 % (31-73) Lymphocytes (%) (Auto) 3 % (24-48) Monocytes (%) (Auto) 3 % (0-9) Eosinophils (%) (Auto) 0 % (0-3) Basophils (%) (Auto) 0 % (0-3) Neutrophils # (Auto) 15.4 x10^3/uL (1.8-7.7) Lymphocytes # (Auto) 0.5 x10^3/uL (1.0-4.8) Monocytes # (Auto) 0.5 x10^3/uL (0.0-1.1) Eosinophils # (Auto) 0.0 x10^3/uL (0.0-0.7) Basophils # (Auto) 0.0 x10^3/uL (0.0-0.2) Sodium Level 135 mmol/L (136-145) Potassium Level 4.2 mmol/L (3.5-5.1) Chloride Level 99 mmol/L (98-107) Carbon Dioxide Level 32 mmol/L (21-32) Anion Gap 4 (6-14) Blood Urea Nitrogen 19 mg/dL (8-26) Creatinine 0.6 mg/dL (0.7-1.3) Estimated GFR (Cockcroft-Gault) 142.6 Glucose Level 223 mg/dL (70-99) Calcium Level 8.4 mg/dL (8.5-10.1) Assessment and Plan Assessmemt and Plan Problems Medical Problems: (1) Acute respiratory failure with hypoxia Status: Acute (2) PRIYA (acute kidney injury) Status: Acute (3) Elevated troponin I level Status: Acute (4) Pulmonary emboli Status: Acute (5) Suspected COVID-19 virus infection Status: Acute Comment Review of Relevant I have reviewed the following items trino (where applicable) has been applied. Labs Laboratory Tests Test 07/18/20 09:04 07/18/20 18:00 07/18/20 23:48 07/19/20 05:51 O2 Saturation 97 % (92-99) Arterial Blood pH 7.47 (7.35-7.45) Arterial Blood pCO2 at Patient Temp 43 mmHg (35-46) Arterial Blood pO2 at Patient Temp 92 mmHg (75-108) Arterial Blood HCO3 30 mmol/L (21-28) Arterial Blood Base Excess 6 mmol/L (-3-3) FiO2 75% vent Glucose (Fingerstick) 163 mg/dL (70-99) 144 mg/dL (70-99) 185 mg/dL (70-99) Test 07/19/20 08:00 07/19/20 11:16 07/19/20 17:35 07/19/20 23:47 O2 Saturation 96 % (92-99) Arterial Blood pH 7.47 (7.35-7.45) Arterial Blood pCO2 at Patient Temp 43 mmHg (35-46) Arterial Blood pO2 at Patient Temp 86 mmHg (75-108) Arterial Blood HCO3 30 mmol/L (21-28) Arterial Blood Base Excess 6 mmol/L (-3-3) FiO2 75% vent Glucose (Fingerstick) 214 mg/dL (70-99) 207 mg/dL (70-99) 195 mg/dL (70-99) Test 07/20/20 05:40 07/20/20 06:30 Glucose (Fingerstick) 210 mg/dL (70-99) White Blood Count 16.4 x10^3/uL (4.0-11.0) Red Blood Count 3.23 x10^6/uL (4.30-5.70) Hemoglobin 10.7 g/dL (13.0-17.5) Hematocrit 32.2 % (39.0-53.0) Mean Corpuscular Volume 100 fL (79-100) Mean Corpuscular Hemoglobin 33 pg (25-35) Mean Corpuscular Hemoglobin Concent 33 g/dL (31-37) Red Cell Distribution Width 13.7 % (11.5-14.5) Platelet Count 179 x10^3/uL (140-400) Neutrophils (%) (Auto) 94 % (31-73) Lymphocytes (%) (Auto) 3 % (24-48) Monocytes (%) (Auto) 3 % (0-9) Eosinophils (%) (Auto) 0 % (0-3) Basophils (%) (Auto) 0 % (0-3) Neutrophils # (Auto) 15.4 x10^3/uL (1.8-7.7) Lymphocytes # (Auto) 0.5 x10^3/uL (1.0-4.8) Monocytes # (Auto) 0.5 x10^3/uL (0.0-1.1) Eosinophils # (Auto) 0.0 x10^3/uL (0.0-0.7) Basophils # (Auto) 0.0 x10^3/uL (0.0-0.2) Sodium Level 135 mmol/L (136-145) Potassium Level 4.2 mmol/L (3.5-5.1) Chloride Level 99 mmol/L (98-107) Carbon Dioxide Level 32 mmol/L (21-32) Anion Gap 4 (6-14) Blood Urea Nitrogen 19 mg/dL (8-26) Creatinine 0.6 mg/dL (0.7-1.3) Estimated GFR (Cockcroft-Gault) 142.6 Glucose Level 223 mg/dL (70-99) Calcium Level 8.4 mg/dL (8.5-10.1) Laboratory Tests Test 07/19/20 11:16 07/19/20 17:35 07/19/20 23:47 07/20/20 05:40 Glucose (Fingerstick) 214 mg/dL (70-99) 207 mg/dL (70-99) 195 mg/dL (70-99) 210 mg/dL (70-99) Test 07/20/20 06:30 White Blood Count 16.4 x10^3/uL (4.0-11.0) Red Blood Count 3.23 x10^6/uL (4.30-5.70) Hemoglobin 10.7 g/dL (13.0-17.5) Hematocrit 32.2 % (39.0-53.0) Mean Corpuscular Volume 100 fL (79-100) Mean Corpuscular Hemoglobin 33 pg (25-35) Mean Corpuscular Hemoglobin Concent 33 g/dL (31-37) Red Cell Distribution Width 13.7 % (11.5-14.5) Platelet Count 179 x10^3/uL (140-400) Neutrophils (%) (Auto) 94 % (31-73) Lymphocytes (%) (Auto) 3 % (24-48) Monocytes (%) (Auto) 3 % (0-9) Eosinophils (%) (Auto) 0 % (0-3) Basophils (%) (Auto) 0 % (0-3) Neutrophils # (Auto) 15.4 x10^3/uL (1.8-7.7) Lymphocytes # (Auto) 0.5 x10^3/uL (1.0-4.8) Monocytes # (Auto) 0.5 x10^3/uL (0.0-1.1) Eosinophils # (Auto) 0.0 x10^3/uL (0.0-0.7) Basophils # (Auto) 0.0 x10^3/uL (0.0-0.2) Sodium Level 135 mmol/L (136-145) Potassium Level 4.2 mmol/L (3.5-5.1) Chloride Level 99 mmol/L (98-107) Carbon Dioxide Level 32 mmol/L (21-32) Anion Gap 4 (6-14) Blood Urea Nitrogen 19 mg/dL (8-26) Creatinine 0.6 mg/dL (0.7-1.3) Estimated GFR (Cockcroft-Gault) 142.6 Glucose Level 223 mg/dL (70-99) Calcium Level 8.4 mg/dL (8.5-10.1) Microbiology 07/03/20 Blood Culture - Final, Complete NO GROWTH AFTER 5 DAYS Medications Current Medications Ceftriaxone Sodium (Rocephin) 1 gm 1X ONCE IVP Last administered on 07/03/20at 20:11; Start 07/03/20 at 19:15; Stop 07/03/20 at 19:19; Status DC Azithromycin (Zithromax) 500 mg 1X ONCE PO Last administered on 07/03/20at 20:11; Start 07/03/20 at 19:15; Stop 07/03/20 at 19:19; Status DC Sodium Chloride 1,000 ml @ 1,000 mls/hr 1X ONCE IV Last administered on 07/03/20at 20:11; Start 07/03/20 at 19:15; Stop 07/03/20 at 20:14; Status DC Sodium Chloride 1,000 ml @ 1,000 mls/hr 1X ONCE IV Last administered on 07/03/20at 19:15; Start 07/03/20 at 19:15; Stop 07/03/20 at 20:14; Status DC Iohexol (Omnipaque 350 Mg/ml) 90 ml 1X ONCE IV Last administered on 07/03/20at 21:00; Start 07/03/20 at 20:45; Stop 07/03/20 at 20:46; Status DC Info (CONTRAST GIVEN -- Rx MONITORING) 1 each PRN DAILY PRN MC SEE COMMENTS; Start 07/03/20 at 20:45; Stop 07/05/20 at 20:44; Status DC Enoxaparin Sodium (Lovenox 150mg Syringe) 150 mg 1X ONCE SQ Last administered on 07/03/20at 22:45; Start 07/03/20 at 23:00; Stop 07/03/20 at 23:01; Status DC Ondansetron HCl (Zofran) 4 mg PRN Q8HRS PRN IV NAUSEA/VOMITING 1ST CHOICE; S tart 07/03/20 at 22:30; Stop 07/04/20 at 22:29; Status DC Morphine Sulfate (Morphine Sulfate) 2 mg PRN Q2HR PRN IV SEVERE PAIN 7-10; Start 07/03/20 at 22:30; Stop 07/04/20 at 22:29; Status DC Sodium Chloride 1,000 ml @ 100 mls/hr Q10H IV Last administered on 07/05/20at 00:35; Start 07/03/20 at 23:00; Stop 07/04/20 at 22:59; Status DC Acetaminophen (Tylenol) 650 mg PRN Q4HRS PRN PO FEVER > 100.3'F; Start 07/03/20 at 22:30; Stop 07/04/20 at 22:29; Status DC Throat Lozenges (Cepacol Sore Throat Lozenge) 1 lety PRN Q2HRS PRN PO SORE THROAT; Start 07/04/20 at 01:15 Furosemide (Lasix) 20 mg 1X ONCE IVP Last administered on 07/04/20at 10:10; Start 07/04/20 at 10:00; Stop 07/04/20 at 10:01; Status DC Succinylcholine Chloride (Anectine) 200 mg STK-MED ONCE .ROUTE ; Start 07/04/20 at 09:09; Stop 07/04/20 at 09:09; Status DC Etomidate (Amidate) 20 mg STK-MED ONCE IV ; Start 07/04/20 at 09:09; Stop 07/04/20 at 09:09; Status DC Fentanyl Citrate 30 ml @ 0 mls/hr CONT PRN IV SEE PROTOCOL Last administered on 07/04/20at 09:36; Start 07/04/20 at 09:15; Stop 07/04/20 at 14:36; Status DC Propofol 100 ml @ 0 mls/hr CONT PRN IV SEE PROTOCOL Last administered on 07/20/20at 07:02; Start 07/04/20 at 09:15 Midazolam HCl 100 ml @ 0 mls/hr CONT PRN IV SEE PROTOCOL Last administered on 07/20/20at 02:09; Start 07/04/20 at 09:15 Midazolam HCl (Versed) 5 mg 1X STAT IV Last administered on 07/04/20at 09:41; Start 07/04/20 at 09:21; Stop 07/04/20 at 09:22; Status DC Midazolam HCl (Versed) 5 mg STK-MED ONCE .ROUTE ; Start 07/04/20 at 09:21; Stop 07/04/20 at 09:21; Status DC Etomidate (Amidate) 10 mg 1X ONCE IV Last administered on 07/04/20at 09:37; Start 07/04/20 at 09:30; Stop 07/04/20 at 09:31; Status DC Succinylcholine Chloride (Anectine) 200 mg 1X ONCE IV Last administered on 07/04/20at 09:38; Start 07/04/20 at 09:30; Stop 07/04/20 at 09:31; Status DC Vecuronium [place] (Norcuron Bolus) 6 mg 1X ONCE IV Last administered on 07/04/20at 09:38; Start 07/04/20 at 09:45; Stop 07/04/20 at 09:46; Status DC Vecuronium [place] (Norcuron Bolus) 10 mg STK-MED ONCE IV ; Start 07/04/20 at 09:33; Stop 07/04/20 at 09:33; Status DC Pantoprazole Sodium (PROTONIX VIAL for IV PUSH) 40 mg DAILYAC IVP Last administered on 07/20/20at 07:32; Start 07/04/20 at 12:30 Methylprednisolone Sodium Succinate (SOLU-Medrol 40MG VIAL) 40 mg Q8HRS IV Last administered on 07/11/20at 05:41; Start 07/04/20 at 14:00; Stop 07/11/20 at 11:36; Status DC Piperacillin Sod/ Tazobactam Sod (Zosyn Per Pharmacy) 1 each PRN DAILY PRN MC SEE COMMENTS; Start 07/04/20 at 12:00; Stop 07/18/20 at 07:46; Status DC Heparin Sodium/ Dextrose 250 ml @ 0 mls/hr CONT PRN IV PER PROTOCOL Last administered on 07/15/20at 02:09; Start 07/04/20 at 12:00; Stop 07/16/20 at 12:09; Status DC Heparin Sodium (Porcine) (Heparin Sodium) 2,500 unit PRN Q6HRS PRN IV FOR UFH LEVEL LESS THAN 0.2 Last administered on 07/15/20at 09:19; Start 07/04/20 at 12:00; Stop 07/16/20 at 12:09; Status DC Heparin Sodium (Porcine) (Heparin Sodium) 1,250 unit PRN Q6HRS PRN IV FOR UFH LEVEL 0.2 - 0.29 Last administered on 07/05/20at 18:27; Start 07/04/20 at 12:00; Stop 07/16/20 at 12:09; Status DC Piperacillin Sod/ Tazobactam Sod 3.375 gm/Sodium Chloride 50 ml @ 100 mls/hr Q6HRS IV Last administered on 07/17/20at 05:10; Start 07/04/20 at 12:00; Stop 07/17/20 at 11:11; Status DC Zinc Sulfate (Orazinc) 220 mg DAILY PO Last administered on 07/20/20at 07:54; Start 07/05/20 at 09:00 Ascorbic Acid (Vitamin C) 500 mg Q6HRS PO Last administered on 07/20/20at 05 :35; Start 07/04/20 at 18:00 Vitamin D (Vitamin D3) 5,000 unit DAILY PO Last administered on 07/20/20at 07:54; Start 07/05/20 at 09:00 Vecuronium [place] (Norcuron Bolus) 6 mg 1X ONCE IV Last administered on 07/04/20at 13:27; Start 07/04/20 at 13:15; Stop 07/04/20 at 13:16; Status DC Norepinephrine Bitartrate 8 mg/ Dextrose 258 ml @ 16.061 mls/ hr CONT PRN IV PER PROTOCOL Last administered on 07/05/20at 00:33; Start 07/04/20 at 13:15; Stop 07/18/20 at 11:01; Status DC Fentanyl Citrate 55 ml @ 0 mls/hr CONT PRN IV SEE PROTOCOL Last administered on 07/20/20at 04:21; Start 07/04/20 at 14:45 Vecuronium [place] (Norcuron Bolus) 6 mg Q4H PRN IV OVERBREATHING VENT/out of sync Last administered on 07/12/20at 13:03; Start 07/04/20 at 16:45 Furosemide (Lasix) 40 mg 1X ONCE IVP Last administered on 07/05/20at 14:17; Start 07/05/20 at 13:30; Stop 07/05/20 at 13:31; Status DC Insulin Human Lispro (HumaLOG) 0-5 UNITS Q6HRS SQ Last administered on 07/11/20at 05:42; Start 07/05/20 at 18:00; Stop 07/11/20 at 07:54; Status DC Dextrose (Dextrose 50%-Water Syringe) 12.5 gm PRN Q15MIN PRN IV SEE COMMENTS; Start 07/05/20 at 14:15 Insulin Human Lispro (HumaLOG) 2 units 1X ONCE SQ Last administered on 07/05/20at 14:19; Start 07/05/20 at 14:30; Stop 07/05/20 at 14:31; Status DC Remdesivir 200 mg/ Sodium Chloride 210 ml @ 210 mls/hr 1X ONCE IV Last administered on 07/06/20at 14:51; Start 07/06/20 at 14:30; Stop 07/06/20 at 15:29; Status DC Remdesivir 100 mg/ Sodium Chloride 230 ml @ 460 mls/hr Q24H IV Last administered on 07/10/20at 13:59; Start 07/07/20 at 14:30; Stop 07/10/20 at 14:59; Status DC Insulin Human Lispro (HumaLOG) 0-9 UNITS TIDWMEALS SQ Last administered on 07/12/20at 11:31; Start 07/11/20 at 08:00; Stop 07/13/20 at 10:17; Status DC Methylprednisolone Sodium Succinate (SOLU-Medrol 40MG VIAL) 40 mg DAILY IV Last administered on 07/14/20at 07:57; Start 07/12/20 at 09:00; Stop 07/14/20 at 09:26; Status DC Acetaminophen (Tylenol) 650 mg PRN Q6HRS PRN PEG MILD PAIN / TEMP > 100.3'F Last administered on 07/12/20at 12:11; Start 07/12/20 at 12:00 Vecuronium [place] 50 mg/ Miscellaneous 50 ml @ 4.094 mls/ hr CONT PRN IV SEE I/O RECORD Last administered on 07/18/20at 01:56; Start 07/12/20 at 14:45 Insulin Human Lispro (HumaLOG) 0-9 UNITS Q6HRS SQ Last administered on 07/20/20at 06:00; Start 07/13/20 at 12:00 Methylprednisolone Sodium Succinate (SOLU-Medrol 40MG VIAL) 40 mg Q12HR IV Last administered on 07/16/20at 09:57; Start 07/14/20 at 21:00; Stop 07/16/20 at 12:10; Status DC Info (Anti-Coagulation Monitoring By Pharmacy) 1 each PRN DAILY PRN MC SEE COMMENTS Last administered on 07/18/20at 08:40; Start 07/16/20 at 08:15 Apixaban (Eliquis) 10 mg BID PO Last administered on 07/20/20at 07:57; Start 07/16/20 at 13:00; Stop 07/22/20 at 21:01 Methylprednisolone Sodium Succinate (SOLU-Medrol 40MG VIAL) 40 mg DAILY IV Last administered on 07/16/20at 12:22; Start 07/16/20 at 13:00; Stop 07/17/20 at 08:24; Status DC Apixaban (Eliquis) 5 mg BID PO ; Start 07/23/20 at 09:00 Methylprednisolone Sodium Succinate (SOLU-Medrol 40MG VIAL) 40 mg Q12HR IV Last administered on 07/20/20at 07:54; Start 07/17/20 at 09:00 Multi-Ingred Cream/Lotion/Oil/ Oint (Artificial Tears Eye Ointment) 1 wenceslao PRN Q1HR PRN OU DRY EYE; Start 07/18/20 at 10:45 Furosemide (Lasix) 40 mg 1X ONCE IVP Last administered on 07/19/20at 00:55; Start 07/19/20 at 00:45; Stop 07/19/20 at 00:46; Status DC Vitals/I & O Vital Sign - Last 24 Hours 07/19/20 07/19/20 07/19/20 07/19/20 08:24 08:30 09:19 10:00 Temp 97.9 97.9 Pulse 66 66 64 Resp 28 B/P (MAP) 90/56 (67) 78/52 (61) 84/64 (71) Pulse Ox 96 96 96 96 O2 Delivery Ventilator Ventilator Ventilator Ventilator 07/19/20 07/19/20 07/19/20 07/19/20 11:00 12:00 12:02 12:33 Temp 98.1 98.1 Pulse 66 61 Resp 28 B/P (MAP) 82/60 (67) 109/67 (81) Pulse Ox 94 96 96 O2 Delivery Ventilator Mechanical Ventilator Ventilator Ventilator 07/19/20 07/19/20 07/19/20 07/19/20 13:00 14:00 15:26 16:00 Temp 97.7 97.7 Pulse 63 64 58 60 Resp 28 28 28 27 B/P (MAP) 100/62 (75) 92/56 (68) 98/66 (77) 108/56 (73) Pulse Ox 94 98 98 O2 Delivery Ventilator Ventilator Ventilator Ventilator 07/19/20 07/19/20 07/19/20 07/19/20 16:02 16:24 16:28 16:54 Resp 20 28 Pulse Ox 97 O2 Delivery Ventilator Mechanical Ventilator Ventilator 07/19/20 07/19/20 07/19/20 07/19/20 17:48 18:00 19:00 20:00 Temp 97.7 97.7 Pulse 56 50 51 58 Resp 28 28 28 28 B/P (MAP) 99/56 (70) 102/54 (70) 87/54 (65) 90/57 (68) Pulse Ox 97 98 95 95 O2 Delivery Ventilator Ventilator 07/19/20 07/19/20 07/19/20 07/19/20 20:00 20:00 21:00 22:00 Pulse 66 63 Resp 28 B/P (MAP) 109/61 (77) 103/60 (74) Pulse Ox 95 96 94 O2 Delivery Ventilator Mechanical Ventilator Ventilator Ventilator 07/19/20 07/20/20 07/20/20 07/20/20 23:00 00:00 00:00 00:00 Temp 98.4 98.4 Pulse 64 63 Resp 28 28 B/P (MAP) 112/64 (80) 105/67 (80) Pulse Ox 94 95 95 O2 Delivery Ventilator Mechanical Ventilator Ventilator Ventilator 07/20/20 07/20/20 07/20/20 07/20/20 01:00 02:00 03:00 04:00 Pulse 69 90 53 Resp 28 28 28 B/P (MAP) 101/60 (74) 123/76 (92) 87/54 (65) Pulse Ox 95 96 91 95 O2 Delivery Ventilator Ventilator Ventilator Ventilator 07/20/20 07/20/20 07/20/20 07/20/20 04:00 04:00 05:00 06:00 Temp 98.5 98.5 Pulse 56 60 85 Resp 28 28 28 B/P (MAP) 90/49 (63) 87/52 (64) 129/73 (91) Pulse Ox 96 95 94 O2 Delivery Ventilator Mechanical Ventilator Ventilator Ventilator 07/20/20 07:00 Pulse 74 Resp 28 B/P (MAP) 113/66 (82) Pulse Ox 95 O2 Delivery Ventilator Intake and Output 07/19/20 07/19/20 07/20/20 15:00 23:00 07:00 Intake Total 200 ml 1316 ml 1503 ml Output Total 360 ml 1105 ml 935 ml Balance -160 ml 211 ml 568 ml Justicifation of Admission Dx: Justifications for Admission: Justification of Admission Dx: Yes SCOTT RUSH MD Jul 20, 2020 08:12
[2020-07-20 08:44] LABS: BASE EXCESS ABG 7 mmol/L (-3-3); HCO3 ABG 32 mmol/L (21-28); PCO2 ABG 47 mmHg (35-46); PO2 ABG 87 mmHg (75-108); SAT O2 ABG 96 % (92-99)
[2020-07-20 08:50] LABS: FIO2 ABG 70%
--- NOTE | 2020-07-20 10:19 | PDOC ---
PULMONARY PROGRESS NOTES DATE: 07/20/20 TIME: 10:17 Subjective PT. remains on vent support in A/C, gradual improvement in oxygenation afebrile overnight on vec gtt no concerns from nursing Vitals Vital Signs Date Time Temp Pulse Resp B/P (MAP) Pulse Ox O2 Delivery O2 Flow Rate FiO2 07/20/20 10:00 63 28 91/53 (66) 93 Ventilator 07/20/20 08:00 98.6 98.6 Comments Patient seen during pandemic visual exam performed Intubated/sedated RRR no Accessory muscle use No obvious rash or edema Lungs: Other (orally intubated, clear ) Labs Laboratory Tests Test 07/18/20 18:00 07/18/20 23:48 07/19/20 05:51 07/19/20 08:00 Glucose (Fingerstick) 163 mg/dL (70-99) 144 mg/dL (70-99) 185 mg/dL (70-99) O2 Saturation 96 % (92-99) Arterial Blood pH 7.47 (7.35-7.45) Arterial Blood pCO2 at Patient Temp 43 mmHg (35-46) Arterial Blood pO2 at Patient Temp 86 mmHg (75-108) Arterial Blood HCO3 30 mmol/L (21-28) Arterial Blood Base Excess 6 mmol/L (-3-3) FiO2 75% vent Test 07/19/20 11:16 07/19/20 17:35 07/19/20 23:47 07/20/20 05:40 Glucose (Fingerstick) 214 mg/dL (70-99) 207 mg/dL (70-99) 195 mg/dL (70-99) 210 mg/dL (70-99) Test 07/20/20 06:30 07/20/20 08:45 White Blood Count 16.4 x10^3/uL (4.0-11.0) Red Blood Count 3.23 x10^6/uL (4.30-5.70) Hemoglobin 10.7 g/dL (13.0-17.5) Hematocrit 32.2 % (39.0-53.0) Mean Corpuscular Volume 100 fL (79-100) Mean Corpuscular Hemoglobin 33 pg (25-35) Mean Corpuscular Hemoglobin Concent 33 g/dL (31-37) Red Cell Distribution Width 13.7 % (11.5-14.5) Platelet Count 179 x10^3/uL (140-400) Neutrophils (%) (Auto) 94 % (31-73) Lymphocytes (%) (Auto) 3 % (24-48) Monocytes (%) (Auto) 3 % (0-9) Eosinophils (%) (Auto) 0 % (0-3) Basophils (%) (Auto) 0 % (0-3) Neutrophils # (Auto) 15.4 x10^3/uL (1.8-7.7) Lymphocytes # (Auto) 0.5 x10^3/uL (1.0-4.8) Monocytes # (Auto) 0.5 x10^3/uL (0.0-1.1) Eosinophils # (Auto) 0.0 x10^3/uL (0.0-0.7) Basophils # (Auto) 0.0 x10^3/uL (0.0-0.2) Sodium Level 135 mmol/L (136-145) Potassium Level 4.2 mmol/L (3.5-5.1) Chloride Level 99 mmol/L (98-107) Carbon Dioxide Level 32 mmol/L (21-32) Anion Gap 4 (6-14) Blood Urea Nitrogen 19 mg/dL (8-26) Creatinine 0.6 mg/dL (0.7-1.3) Estimated GFR (Cockcroft-Gault) 142.6 Glucose Level 223 mg/dL (70-99) Calcium Level 8.4 mg/dL (8.5-10.1) O2 Saturation 96 % (92-99) Arterial Blood pH 7.46 (7.35-7.45) Arterial Blood pCO2 at Patient Temp 47 mmHg (35-46) Arterial Blood pO2 at Patient Temp 87 mmHg (75-108) Arterial Blood HCO3 32 mmol/L (21-28) Arterial Blood Base Excess 7 mmol/L (-3-3) FiO2 70% Laboratory Tests Test 07/19/20 11:16 07/19/20 17:35 07/19/20 23:47 07/20/20 05:40 Glucose (Fingerstick) 214 mg/dL (70-99) 207 mg/dL (70-99) 195 mg/dL (70-99) 210 mg/dL (70-99) Test 07/20/20 06:30 11/27/20 08:45 White Blood Count 16.4 x10^3/uL (4.0-11.0) Red Blood Count 3.23 x10^6/uL (4.30-5.70) Hemoglobin 10.7 g/dL (13.0-17.5) Hematocrit 32.2 % (39.0-53.0) Mean Corpuscular Volume 100 fL (79-100) Mean Corpuscular Hemoglobin 33 pg (25-35) Mean Corpuscular Hemoglobin Concent 33 g/dL (31-37) Red Cell Distribution Width 13.7 % (11.5-14.5) Platelet Count 179 x10^3/uL (140-400) Neutrophils (%) (Auto) 94 % (31-73) Lymphocytes (%) (Auto) 3 % (24-48) Monocytes (%) (Auto) 3 % (0-9) Eosinophils (%) (Auto) 0 % (0-3) Basophils (%) (Auto) 0 % (0-3) Neutrophils # (Auto) 15.4 x10^3/uL (1.8-7.7) Lymphocytes # (Auto) 0.5 x10^3/uL (1.0-4.8) Monocytes # (Auto) 0.5 x10^3/uL (0.0-1.1) Eosinophils # (Auto) 0.0 x10^3/uL (0.0-0.7) Basophils # (Auto) 0.0 x10^3/uL (0.0-0.2) Sodium Level 135 mmol/L (136-145) Potassium Level 4.2 mmol/L (3.5-5.1) Chloride Level 99 mmol/L (98-107) Carbon Dioxide Level 32 mmol/L (21-32) Anion Gap 4 (6-14) Blood Urea Nitrogen 19 mg/dL (8-26) Creatinine 0.6 mg/dL (0.7-1.3) Estimated GFR (Cockcroft-Gault) 142.6 Glucose Level 223 mg/dL (70-99) Calcium Level 8.4 mg/dL (8.5-10.1) O2 Saturation 96 % (92-99) Arterial Blood pH 7.46 (7.35-7.45) Arterial Blood pCO2 at Patient Temp 47 mmHg (35-46) Arterial Blood pO2 at Patient Temp 87 mmHg (75-108) Arterial Blood HCO3 32 mmol/L (21-28) Arterial Blood Base Excess 7 mmol/L (-3-3) FiO2 70% Comments CXR 07/20 IMPRESSION: 1. Stable to slight increased diffuse mixed interstitial and alveolar infiltrate. 2. Stable support lines and tubes. Impression . IMPRESSION: 1. Acute hypoxemic respiratory failure. 2. Acute pulmonary embolism with cor pulmonale. 3. Possible COVID-19. 4[address] chest revealing ground glass opacities. 5. Hypertension. 6. History of bronchitis. 7. Elevated troponin. 8. Acute kidney injury. 9. Leukocytosis. 10. Covid-19 positive Plan . Continue current ventilatory support, gradually improving oxygenation Follow chest x-ray and ABG, will reduce Fi02 to 55% and PEEP to 6, once Fi02 @ 50% will begin reducing sedation Continue adequate sedation, currently off vecuronium drip Follow cardiology recommendations Antibiotics per ID-- off ABX has completed full course of remdesivir cont. steroids, with taper will have completed full 10 day course 07/22 continue tube feeding for nutritional support DVT/GI prophylaxis, Eliquis/ Protonix Discussed with RN and RT Pt. is FULL CODE Critical Care Time 30min, reviewing labs, diagnostics and discussing with care team NERY SALINAS MD Jul 20, 2020 10:19
[2020-07-20] MEDS: ANTI-COAG MONITOR BY PHARMACY. MC PRN (11:58)
[2020-07-20] MEDS: VECURONIUM BOLUS 10 MG VIAL. IV PRN (12:32)
[2020-07-21] VITALS (24 sets, daily range): BP systolic 91–127; BP diastolic 55–78
[2020-07-21] MEDS: PROPOFOL 100 ML IV PRN ×6 (02:58→23:22)
[2020-07-21] MEDS: ASCORBIC ACID 500 MG TABLET PO SCH ×3 (05:53→17:34)
[2020-07-21] MEDS: INSULIN LISPRO 300 UNITS/3 ML VIAL. SQ SCH ×4 (05:57→17:35)
[2020-07-21 06:26] LABS: CREATININE 0.5 mg/dL (0.7-1.3); POTASSIUM 3.8 mmol/L (3.5-5.1)
[2020-07-21] MEDS: fentaNYL HIGH DOSE PCA 55 ML IV PRN ×2 (06:57→20:00)
[2020-07-21 07:05] LABS: BASO % 0 % (0-3); EOS # 0.2 x10^3/uL (0.0-0.7); EOS % 1 % (0-3); HEMATOCRIT 32.4 % (39.0-53.0); HEMOGLOBIN 10.7 g/dL (13.0-17.5); LYMPH # 1.3 x10^3/uL (1.0-4.8); LYMPH % 9 % (24-48); MEAN CORPUSCULAR HEMOGLOBIN 33 pg (25-35); MEAN CORPUSCULAR HGB CONC 33 g/dL (31-37); MEAN CORPUSCULAR VOLUME 100 fL (79-100); MONO # 0.4 x10^3/uL (0.0-1.1); MONO % 3 % (0-9); NEUT # 11.8 x10^3/uL (1.8-7.7); NEUT % 87 % (31-73); PLATELET COUNT 153 x10^3/uL (140-400); RED BLOOD COUNT 3.24 x10^6/uL (4.30-5.70); RED CELL DISTRIBUTION WIDTH 14.5 % (11.5-14.5); WHITE BLOOD COUNT 13.7 x10^3/uL (4.0-11.0)
[2020-07-21] MEDS: PANTOPRAZOLE IV PUSH 40 MG VIAL. IVP SCH (07:58)
[2020-07-21] MEDS: methylPREDNISolone SOD SUCC PF 40 MG/ML VIAL. IV SCH (08:36)
[2020-07-21] MEDS: ZINC SULFATE 220 MG CAPSULE. PO SCH (08:37)
[2020-07-21] MEDS: CHOLECALCIFEROL (VITAMIN D3) 5,000 UNIT CAPSULE PO SCH (08:37)
[2020-07-21] MEDS: APIXABAN 5 MG TABLET. PO SCH ×2 (08:37→21:19)
[2020-07-21 08:38] LABS: BASE EXCESS ABG 6 mmol/L (-3-3); HCO3 ABG 29 mmol/L (21-28); PCO2 ABG 40 mmHg (35-46); PO2 ABG 77 mmHg (75-108); SAT O2 ABG 95 % (92-99)
--- NOTE | 2020-07-21 09:09 | PDOC ---
PULMONARY PROGRESS NOTES DATE: 07/21/20 TIME: 09:07 Subjective PT. remains on vent support , gradual improvement in oxygenation afebrile overnight on vec gtt no concerns from nursing Vitals Vital Signs Date Time Temp Pulse Resp B/P (MAP) Pulse Ox O2 Delivery O2 Flow Rate FiO2 07/21/20 08:37 95 Ventilator 07/21/20 07:37 15.0 07/21/20 07:00 83 28 121/78 (92) 07/21/20 04:00 99.1 99.1 Comments Patient seen during pandemic visual exam performed Intubated/sedated RRR no Accessory muscle use No obvious rash or edema Lungs: Other (orally intubated, clear ) Labs Laboratory Tests Test 07/19/20 11:16 07/19/20 17:35 07/19/20 23:47 07/20/20 05:40 Glucose (Fingerstick) 214 mg/dL (70-99) 207 mg/dL (70-99) 195 mg/dL (70-99) 210 mg/dL (70-99) Test 07/20/20 06:30 07/20/20 08:45 07/20/20 11:44 07/20/20 18:03 White Blood Count 16.4 x10^3/uL (4.0-11.0) Red Blood Count 3.23 x10^6/uL (4.30-5.70) Hemoglobin 10.7 g/dL (13.0-17.5) Hematocrit 32.2 % (39.0-53.0) Mean Corpuscular Volume 100 fL (79-100) Mean Corpuscular Hemoglobin 33 pg (25-35) Mean Corpuscular Hemoglobin Concent 33 g/dL (31-37) Red Cell Distribution Width 13.7 % (11.5-14.5) Platelet Count 179 x10^3/uL (140-400) Neutrophils (%) (Auto) 94 % (31-73) Lymphocytes (%) (Auto) 3 % (24-48) Monocytes (%) (Auto) 3 % (0-9) Eosinophils (%) (Auto) 0 % (0-3) Basophils (%) (Auto) 0 % (0-3) Neutrophils # (Auto) 15.4 x10^3/uL (1.8-7.7) Lymphocytes # (Auto) 0.5 x10^3/uL (1.0-4.8) Monocytes # (Auto) 0.5 x10^3/uL (0.0-1.1) Eosinophils # (Auto) 0.0 x10^3/uL (0.0-0.7) Basophils # (Auto) 0.0 x10^3/uL (0.0-0.2) Sodium Level 135 mmol/L (136-145) Potassium Level 4.2 mmol/L (3.5-5.1) Chloride Level 99 mmol/L (98-107) Carbon Dioxide Level 32 mmol/L (21-32) Anion Gap 4 (6-14) Blood Urea Nitrogen 19 mg/dL (8-26) Creatinine 0.6 mg/dL (0.7-1.3) Estimated GFR (Cockcroft-Gault) 142.6 Glucose Level 223 mg/dL (70-99) Calcium Level 8.4 mg/dL (8.5-10.1) O2 Saturation 96 % (92-99) Arterial Blood pH 7.46 (7.35-7.45) Arterial Blood pCO2 at Patient Temp 47 mmHg (35-46) Arterial Blood pO2 at Patient Temp 87 mmHg (75-108) Arterial Blood HCO3 32 mmol/L (21-28) Arterial Blood Base Excess 7 mmol/L (-3-3) FiO2 70% Glucose (Fingerstick) 167 mg/dL (70-99) 175 mg/dL (70-99) Test 07/20/20 23:59 07/21/20 05:40 07/21/20 08:36 Glucose (Fingerstick) 155 mg/dL (70-99) White Blood Count 13.7 x10^3/uL (4.0-11.0) Red Blood Count 3.24 x10^6/uL (4.30-5.70) Hemoglobin 10.7 g/dL (13.0-17.5) Hematocrit 32.4 % (39.0-53.0) Mean Corpuscular Volume 100 fL (79-100) Mean Corpuscular Hemoglobin 33 pg (25-35) Mean Corpuscular Hemoglobin Concent 33 g/dL (31-37) Red Cell Distribution Width 14.5 % (11.5-14.5) Platelet Count 153 x10^3/uL (140-400) Neutrophils (%) (Auto) 87 % (31-73) Lymphocytes (%) (Auto) 9 % (24-48) Monocytes (%) (Auto) 3 % (0-9) Eosinophils (%) (Auto) 1 % (0-3) Basophils (%) (Auto) 0 % (0-3) Neutrophils # (Auto) 11.8 x10^3/uL (1.8-7.7) Lymphocytes # (Auto) 1.3 x10^3/uL (1.0-4.8) Monocytes # (Auto) 0.4 x10^3/uL (0.0-1.1) Eosinophils # (Auto) 0.2 x10^3/uL (0.0-0.7) Basophils # (Auto) 0.0 x10^3/uL (0.0-0.2) Sodium Level 137 mmol/L (136-145) Potassium Level 3.8 mmol/L (3.5-5.1) Chloride Level 100 mmol/L (98-107) Carbon Dioxide Level 33 mmol/L (21-32) Anion Gap 4 (6-14) Blood Urea Nitrogen 17 mg/dL (8-26) Creatinine 0.5 mg/dL (0.7-1.3) Estimated GFR (Cockcroft-Gault) 176.0 Glucose Level 139 mg/dL (70-99) Calcium Level 8.0 mg/dL (8.5-10.1) O2 Saturation 95 % (92-99) Arterial Blood pH 7.49 (7.35-7.45) Arterial Blood pCO2 at Patient Temp 40 mmHg (35-46) Arterial Blood pO2 at Patient Temp 77 mmHg (75-108) Arterial Blood HCO3 29 mmol/L (21-28) Arterial Blood Base Excess 6 mmol/L (-3-3) FiO2 60 vent Laboratory Tests Test 07/20/20 11:44 07/20/20 18:03 07/20/20 23:59 07/21/20 05:40 Glucose (Fingerstick) 167 mg/dL (70-99) 175 mg/dL (70-99) 155 mg/dL (70-99) White Blood Count 13.7 x10^3/uL (4.0-11.0) Red Blood Count 3.24 x10^6/uL (4.30-5.70) Hemoglobin 10.7 g/dL (13.0-17.5) Hematocrit 32.4 % (39.0-53.0) Mean Corpuscular Volume 100 fL (79-100) Mean Corpuscular Hemoglobin 33 pg (25-35) Mean Corpuscular Hemoglobin Concent 33 g/dL (31-37) Red Cell Distribution Width 14.5 % (11.5-14.5) Platelet Count 153 x10^3/uL (140-400) Neutrophils (%) (Auto) 87 % (31-73) Lymphocytes (%) (Auto) 9 % (24-48) Monocytes (%) (Auto) 3 % (0-9) Eosinophils (%) (Auto) 1 % (0-3) Basophils (%) (Auto) 0 % (0-3) Neutrophils # (Auto) 11.8 x10^3/uL (1.8-7.7) Lymphocytes # (Auto) 1.3 x10^3/uL (1.0-4.8) Monocytes # (Auto) 0.4 x10^3/uL (0.0-1.1) Eosinophils # (Auto) 0.2 x10^3/uL (0.0-0.7) Basophils # (Auto) 0.0 x10^3/uL (0.0-0.2) Sodium Level 137 mmol/L (136-145) Potassium Level 3.8 mmol/L (3.5-5.1) Chloride Level 100 mmol/L (98-107) Carbon Dioxide Level 33 mmol/L (21-32) Anion Gap 4 (6-14) Blood Urea Nitrogen 17 mg/dL (8-26) Creatinine 0.5 mg/dL (0.7-1.3) Estimated GFR (Cockcroft-Gault) 176.0 Glucose Level 139 mg/dL (70-99) Calcium Level 8.0 mg/dL (8.5-10.1) Test 07/21/20 08:36 O2 Saturation 95 % (92-99) Arterial Blood pH 7.49 (7.35-7.45) Arterial Blood pCO2 at Patient Temp 40 mmHg (35-46) Arterial Blood pO2 at Patient Temp 77 mmHg (75-108) Arterial Blood HCO3 29 mmol/L (21-28) Arterial Blood Base Excess 6 mmol/L (-3-3) FiO2 60 vent Comments CXR 07/20 IMPRESSION: 1. Stable to slight increased diffuse mixed interstitial and alveolar infiltrate. 2. Stable support lines and tubes. Impression . IMPRESSION: 1. Acute hypoxemic respiratory failure. 2. Acute pulmonary embolism with cor pulmonale. 3. Possible COVID-19. [address] chest revealing ground glass opacities. 5. Hypertension. 6. History of bronchitis. 7. Elevated troponin. 8. Acute kidney injury. 9. Leukocytosis. 10. Covid-19 positive Plan . Continue current ventilatory support, gradually improving oxygenation Follow chest x-ray and ABG, will reduce Fi02 to 55% and reduce respiratory rate to 22, once Fi02 @ 50% will begin reducing sedation Follow cardiology recommendations Antibiotics per ID-- off ABX has completed full course of remdesivir cont. steroids, with taper will have completed full 10 day course 07/22 continue tube feeding for nutritional support DVT/GI prophylaxis, Eliquis/ Protonix Discussed with RN and RT Pt. is FULL CODE Critical Care Time 30min, reviewing labs, diagnostics and discussing with care team NERY SALINAS MD Jul 21, 2020 09:08
[2020-07-21] MEDS: ANTI-COAG MONITOR BY PHARMACY. MC PRN (10:10)
--- NOTE | 2020-07-21 14:10 | PDOC ---
PROGRESS NOTES Date of Service: DATE: 07/21/20 TIME: 14:09 Chief Complaint Chief Complaint Acute hypoxic respiratory failure requiring intubation COVID-19 PUI Subsegmental bilateral PE Leukocytosis NSTEMI AKA Lactic acidosis Hyponatremia Plan: Appreciate pulmonology recommendations Continue current ventilatory support, currently on 70% and PEEP of 6, avoid increasing PEEP 2/2 risk of barotrauma Follow chest x-ray and ABG, vent management as per pulmonology Heparin has been transitioned to Xarelto Solu-Medrol 40 mg every 12 hours Appreciate ID recommendationscontinue Remdesivir and empiric antibiotics IV fluids will place a phone call to family later in the day. Discussed with RN and SW. History of Present Illness History of Present Illness 07/21/2020 Patient no acute events reported overnight. Patient continues to require a lot of support from vent. Discussed with RN 09/19/2019 Patient continues to be pretty much the same , fio2 is at 70%, heparin 07/19/2020 Patient hypotensive today, we will follow recommendations from critical property caretaker. Vent management as per rehabilitation consultant, no other complaints. 07/18/2020 Patient with no acute events reported overnight, fio2 is now at 75% PEEP of 6, Vent management as per pulmonary rehabilitation consultant slight increase in temperature noted over the lat 24 hours. Will continue to follow 07/17/2020 Patient with no acute events reported overnight, contineus to require an fio2 of 80%, continue with supportive measures. 07/16/2020 Patient with no acute events reported overnight, patient continues to require quite a bit of FiO2 at 80%. Vent management as per rehabilitation consultant, will place a call to family members after rounding. Discussed with RN 07/15/2020 Patient seen and examined bedside in the ICU. FiO2 80% PEEP of 6.pH 7.56, PCO2 32, PO2 56, HCO3 28. Will adjust respiratory rate accordingly to correct pH.> 50% time spent in patient chart, labs, and imaging review and in discussion with RN and SW 07/14/2020 Patient seen and examined bedside. FiO2 65% and PEEP of 6 on vent. ABG: pH 7.26, PCO2 77, PO2 114, HCO3 34. We will adjust respiratory rate or tidal volume to titrate pH.> 50% time spent in patient chart, labs, and imaging review and in discussion with RN and SW 07/13/2020 No acute events overnight. Patient examined bedside sedated and intubated. FiO2 70% PEEP of 6. Improved ABGs.> 50% time spent in patient chart, labs, and imaging review and in discussion with LIANE and JAVIER 07/12/2020 Patient seen and examined in the ICU. Sedated and intubated. FiO2 65, PEEP of 8 with improved oxygenation. pH 7.4, PCO2 48, PO2 94, HCO3 30. +500 cc fluid balance.> 50% time spent in patient chart, labs, and imaging review and in dis cussion with RN and JAVIER 07/11/2020 Patient seen and examined bedside in the ICU. Patient continues to be intubated and sedated. FiO2 75%, PEEP of 10. pH 7.40, PCO2 44, PO2 is 135, HCO3 26. Can likely decrease FiO2 due to improved oxygenation. +173 cc in the past 24 hours 07/10/2020 Patient seen and examined bedside in ICU. Patient is intubated and sedated. FiO2 90%, PEEP of 10, respiratory rate of 30. ABG: pH is 7.41, PCO2 42, PO2 113, HCO3 26. 07/09/2020 Patient seen and examined in the ICU. Intubated and sedated. Vent settings FiO2 90%, PEEP of 10, respiratory rate of 30. 07/05: Patient seen in ICU, still intubated and sedated. COVID-19 pending. Patient remains on heparin infusion. Discussed with RN, will try to have central line placed per anesthesia. 07/06: Patient seen in ICU. Still FiO2 100% on vent and sedated. COVID-19 positive. Continue heparin infusion, Zosyn, steroids. 07/07: Covid positive patient seen in ICU. On vent with FiO2 100%, PEEP 10. Continue remdesivir, steroids, Zosyn. Continue to monitor 07/08: Patient seen in Covid ICU. Still on vent with FiO2 100%, PEEP 10. Afebrile. No acute events overnight. Continue steroids, antibiotics, and remdesivir. Patient is 49-year-old male with past medical history of hypertension, who presents to the ED with complaints of worsening shortness of breath over the past 5 days. Associated sore throat, fatigue, and generalized weakness. Patient was reportedly tested for COVID-19 last Thursday, but he had negative test results. His symptoms acutely worsened yesterday. Upon arrival to the ER his oxygen saturation was 60% on room air. He was placed on BiPAP and admitted to the ICU. Patient was subsequently intubated due to worsening respiratory failure. Vitals Vitals Vital Signs Date Time Temp Pulse Resp B/P (MAP) Pulse Ox O2 Delivery O2 Flow Rate FiO2 07/21/20 14:00 82 22 124/73 (90) 91 Ventilator 07/21/20 11:00 99.2 99.2 07/21/20 07:37 15.0 Physical Exam Physical Exam Visual exam done due to [place] pandemic General intubated LUNGS: Mechanical ventilation HEART: Regular rhythm ABDOMEN: Nondistended SKIN: No generalized rash General: Other (Sedated and intubated) Heart: Regular rate (SR/ST) Lungs: Other (orally intubated, clear ) Abdomen: Other (Nondistended) Extremities: No clubbing, No cyanosis Skin: No rashes, No breakdown Labs LABS Laboratory Tests Test 07/20/20 18:03 07/20/20 23:59 07/21/20 05:40 07/21/20 08:36 Glucose (Fingerstick) 175 mg/dL (70-99) 155 mg/dL (70-99) White Blood Count 13.7 x10^3/uL (4.0-11.0) Red Blood Count 3.24 x10^6/uL (4.30-5.70) Hemoglobin 10.7 g/dL (13.0-17.5) Hematocrit 32.4 % (39.0-53.0) Mean Corpuscular Volume 100 fL (79-100) Mean Corpuscular Hemoglobin 33 pg (25-35) Mean Corpuscular Hemoglobin Concent 33 g/dL (31-37) Red Cell Distribution Width 14.5 % (11.5-14.5) Platelet Count 153 x10^3/uL (140-400) Neutrophils (%) (Auto) 87 % (31-73) Lymphocytes (%) (Auto) 9 % (24-48) Monocytes (%) (Auto) 3 % (0-9) Eosinophils (%) (Auto) 1 % (0-3) Basophils (%) (Auto) 0 % (0-3) Neutrophils # (Auto) 11.8 x10^3/uL (1.8-7.7) Lymphocytes # (Auto) 1.3 x10^3/uL (1.0-4.8) Monocytes # (Auto) 0.4 x10^3/uL (0.0-1.1) Eosinophils # (Auto) 0.2 x10^3/uL (0.0-0.7) Basophils # (Auto) 0.0 x10^3/uL (0.0-0.2) Sodium Level 137 mmol/L (136-145) Potassium Level 3.8 mmol/L (3.5-5.1) Chloride Level 100 mmol/L (98-107) Carbon Dioxide Level 33 mmol/L (21-32) Anion Gap 4 (6-14) Blood Urea Nitrogen 17 mg/dL (8-26) Creatinine 0.5 mg/dL (0.7-1.3) Estimated GFR (Cockcroft-Gault) 176.0 Glucose Level 139 mg/dL (70-99) Calcium Level 8.0 mg/dL (8.5-10.1) O2 Saturation 95 % (92-99) Arterial Blood pH 7.49 (7.35-7.45) Arterial Blood pCO2 at Patient Temp 40 mmHg (35-46) Arterial Blood pO2 at Patient Temp 77 mmHg (75-108) Arterial Blood HCO3 29 mmol/L (21-28) Arterial Blood Base Excess 6 mmol/L (-3-3) FiO2 60 vent Assessment and Plan Assessmemt and Plan Problems Medical Problems: (1) Acute respiratory failure with hypoxia Status: Acute (2) PRIYA (acute kidney injury) Status: Acute (3) Elevated troponin I level Status: Acute (4) Pulmonary emboli Status: Acute (5) Suspected COVID-19 virus infection Status: Acute Comment Review of Relevant I have reviewed the following items trino (where applicable) has been applied. Labs Laboratory Tests Test 07/19/20 17:35 07/19/20 23:47 07/20/20 05:40 07/20/20 06:30 Glucose (Fingerstick) 207 mg/dL (70-99) 195 mg/dL (70-99) 210 mg/dL (70-99) White Blood Count 16.4 x10^3/uL (4.0-11.0) Red Blood Count 3.23 x10^6/uL (4.30-5.70) Hemoglobin 10.7 g/dL (13.0-17.5) Hematocrit 32.2 % (39.0-53.0) Mean Corpuscular Volume 100 fL (79-100) Mean Corpuscular Hemoglobin 33 pg (25-35) Mean Corpuscular Hemoglobin Concent 33 g/dL (31-37) Red Cell Distribution Width 13.7 % (11.5-14.5) Platelet Count 179 x10^3/uL (140-400) Neutrophils (%) (Auto) 94 % (31-73) Lymphocytes (%) (Auto) 3 % (24-48) Monocytes (%) (Auto) 3 % (0-9) Eosinophils (%) (Auto) 0 % (0-3) Basophils (%) (Auto) 0 % (0-3) Neutrophils # (Auto) 15.4 x10^3/uL (1.8-7.7) Lymphocytes # (Auto) 0.5 x10^3/uL (1.0-4.8) Monocytes # (Auto) 0.5 x10^3/uL (0.0-1.1) Eosinophils # (Auto) 0.0 x10^3/uL (0.0-0.7) Basophils # (Auto) 0.0 x10^3/uL (0.0-0.2) Sodium Level 135 mmol/L (136-145) Potassium Level 4.2 mmol/L (3.5-5.1) Chloride Level 99 mmol/L (98-107) Carbon Dioxide Level 32 mmol/L (21-32) Anion Gap 4 (6-14) Blood Urea Nitrogen 19 mg/dL (8-26) Creatinine 0.6 mg/dL (0.7-1.3) Estimated GFR (Cockcroft-Gault) 142.6 Glucose Level 223 mg/dL (70-99) Calcium Level 8.4 mg/dL (8.5-10.1) Test 07/20/20 08:45 07/20/20 11:44 07/20/20 18:03 07/20/20 23:59 O2 Saturation 96 % (92-99) Arterial Blood pH 7.46 (7.35-7.45) Arterial Blood pCO2 at Patient Temp 47 mmHg (35-46) Arterial Blood pO2 at Patient Temp 87 mmHg (75-108) Arterial Blood HCO3 32 mmol/L (21-28) Arterial Blood Base Excess 7 mmol/L (-3-3) FiO2 70% Glucose (Fingerstick) 167 mg/dL (70-99) 175 mg/dL (70-99) 155 mg/dL (70-99) Test 07/21/20 05:40 07/21/20 08:36 White Blood Count 13.7 x10^3/uL (4.0-11.0) Red Blood Count 3.24 x10^6/uL (4.30-5.70) Hemoglobin 10.7 g/dL (13.0-17.5) Hematocrit 32.4 % (39.0-53.0) Mean Corpuscular Volume 100 fL (79-100) Mean Corpuscular Hemoglobin 33 pg (25-35) Mean Corpuscular Hemoglobin Concent 33 g/dL (31-37) Red Cell Distribution Width 14.5 % (11.5-14.5) Platelet Count 153 x10^3/uL (140-400) Neutrophils (%) (Auto) 87 % (31-73) Lymphocytes (%) (Auto) 9 % (24-48) Monocytes (%) (Auto) 3 % (0-9) Eosinophils (%) (Auto) 1 % (0-3) Basophils (%) (Auto) 0 % (0-3) Neutrophils # (Auto) 11.8 x10^3/uL (1.8-7.7) Lymphocytes # (Auto) 1.3 x10^3/uL (1.0-4.8) Monocytes # (Auto) 0.4 x10^3/uL (0.0-1.1) Eosinophils # (Auto) 0.2 x10^3/uL (0.0-0.7) Basophils # (Auto) 0.0 x10^3/uL (0.0-0.2) Sodium Level 137 mmol/L (136-145) Potassium Level 3.8 mmol/L (3.5-5.1) Chloride Level 100 mmol/L (98-107) Carbon Dioxide Level 33 mmol/L (21-32) Anion Gap 4 (6-14) Blood Urea Nitrogen 17 mg/dL (8-26) Creatinine 0.5 mg/dL (0.7-1.3) Estimated GFR (Cockcroft-Gault) 176.0 Glucose Level 139 mg/dL (70-99) Calcium Level 8.0 mg/dL (8.5-10.1) O2 Saturation 95 % (92-99) Arterial Blood pH 7.49 (7.35-7.45) Arterial Blood pCO2 at Patient Temp 40 mmHg (35-46) Arterial Blood pO2 at Patient Temp 77 mmHg (75-108) Arterial Blood HCO3 29 mmol/L (21-28) Arterial Blood Base Excess 6 mmol/L (-3-3) FiO2 60 vent Laboratory Tests Test 07/20/20 18:03 07/20/20 23:59 07/21/20 05:40 07/21/20 08:36 Glucose (Fingerstick) 175 mg/dL (70-99) 155 mg/dL (70-99) White Blood Count 13.7 x10^3/uL (4.0-11.0) Red Blood Count 3.24 x10^6/uL (4.30-5.70) Hemoglobin 10.7 g/dL (13.0-17.5) Hematocrit 32.4 % (39.0-53.0) Mean Corpuscular Volume 100 fL (79-100) Mean Corpuscular Hemoglobin 33 pg (25-35) Mean Corpuscular Hemoglobin Concent 33 g/dL (31-37) Red Cell Distribution Width 14.5 % (11.5-14.5) Platelet Count 153 x10^3/uL (140-400) Neutrophils (%) (Auto) 87 % (31-73) Lymphocytes (%) (Auto) 9 % (24-48) Monocytes (%) (Auto) 3 % (0-9) Eosinophils (%) (Auto) 1 % (0-3) Basophils (%) (Auto) 0 % (0-3) Neutrophils # (Auto) 11.8 x10^3/uL (1.8-7.7) Lymphocytes # (Auto) 1.3 x10^3/uL (1.0-4.8) Monocytes # (Auto) 0.4 x10^3/uL (0.0-1.1) Eosinophils # (Auto) 0.2 x10^3/uL (0.0-0.7) Basophils # (Auto) 0.0 x10^3/uL (0.0-0.2) Sodium Level 137 mmol/L (136-145) Potassium Level 3.8 mmol/L (3.5-5.1) Chloride Level 100 mmol/L (98-107) Carbon Dioxide Level 33 mmol/L (21-32) Anion Gap 4 (6-14) Blood Urea Nitrogen 17 mg/dL (8-26) Creatinine 0.5 mg/dL (0.7-1.3) Estimated GFR (Cockcroft-Gault) 176.0 Glucose Level 139 mg/dL (70-99) Calcium Level 8.0 mg/dL (8.5-10.1) O2 Saturation 95 % (92-99) Arterial Blood pH 7.49 (7.35-7.45) Arterial Blood pCO2 at Patient Temp 40 mmHg (35-46) Arterial Blood pO2 at Patient Temp 77 mmHg (75-108) Arterial Blood HCO3 29 mmol/L (21-28) Arterial Blood Base Excess 6 mmol/L (-3-3) FiO2 60 vent Microbiology 07/03/20 Blood Culture - Final, Complete NO GROWTH AFTER 5 DAYS Medications Current Medications Ceftriaxone Sodium (Rocephin) 1 gm 1X ONCE IVP Last administered on 07/03/20at 20:11; Start 07/03/20 at 19:15; Stop 07/03/20 at 19:19; Status DC Azithromycin (Zithromax) 500 mg 1X ONCE PO Last administered on 07/03/20at 20:11; Start 07/03/20 at 19:15; Stop 07/03/20 at 19:19; Status DC Sodium Chloride 1,000 ml @ 1,000 mls/hr 1X ONCE IV Last administered on 07/03/20at 20:11; Start 07/03/20 at 19:15; Stop 07/03/20 at 20:14; Status DC Sodium Chloride 1,000 ml @ 1,000 mls/hr 1X ONCE IV Last administered on 07/03/20at 19:15; Start 07/03/20 at 19:15; Stop 07/03/20 at 20:14; Status DC Iohexol (Omnipaque 350 Mg/ml) 90 ml 1X ONCE IV Last administered on 07/03/20at 21:00; Start 07/03/20 at 20:45; Stop 07/03/20 at 20:46; Status DC Info (CONTRAST GIVEN -- Rx MONITORING) 1 each PRN DAILY PRN MC SEE COMMENTS; Start 07/03/20 at 20:45; Stop 07/05/20 at 20:44; Status DC Enoxaparin Sodium (Lovenox 150mg Syringe) 150 mg 1X ONCE SQ Last administered on 07/03/20at 22:45; Start 07/03/20 at 23:00; Stop 07/03/20 at 23:01; Status DC Ondansetron HCl (Zofran) 4 mg PRN Q8HRS PRN IV NAUSEA/VOMITING 1ST CHOICE; Start 07/03/20 at 22:30; Stop 07/04/20 at 22:29; Status DC Morphine Sulfate (Morphine Sulfate) 2 mg PRN Q2HR PRN IV SEVERE PAIN 7-10; Start 07/03/20 at 22:30; Stop 07/04/20 at 22:29; Status DC Sodium Chloride 1,000 ml @ 100 mls/hr Q10H IV Last administered on 07/05/20at 00:35; Start 07/03/20 at 23:00; Stop 07/04/20 at 22:59; Status DC Acetaminophen (Tylenol) 650 mg PRN Q4HRS PRN PO FEVER > 100.3'F; Start 07/03/20 at 22:30; Stop 07/04/20 at 22:29; Status DC Throat Lozenges (Cepacol Sore Throat Lozenge) 1 lety PRN Q2HRS PRN PO SORE THROAT; Start 07/04/20 at 01:15 Furosemide (Lasix) 20 mg 1X ONCE IVP Last administered on 07/04/20at 10:10; Start 07/04/20 at 10:00; Stop 07/04/20 at 10:01; Status DC Succinylcholine Chloride (Anectine) 200 mg STK-MED ONCE .ROUTE ; Start 07/04/20 at 09:09; Stop 07/04/20 at 09:09; Status DC Etomidate (Amidate) 20 mg STK-MED ONCE IV ; Start 07/04/20 at 09:09; Stop 07/04/20 at 09:09; Status DC Fentanyl Citrate 30 ml @ 0 mls/hr CONT PRN IV SEE PROTOCOL Last administered on 07/04/20at 09:36; Start 07/04/20 at 09:15; Stop 07/04/20 at 14:36; Status DC Propofol 100 ml @ 0 mls/hr CONT PRN IV SEE PROTOCOL Last administered on 07/21/20at 10:46; Start 07/04/20 at 09:15 Midazolam HCl 100 ml @ 0 mls/hr CONT PRN IV SEE PROTOCOL Last administered on 07/20/20at 23:18; Start 07/04/20 at 09:15 Midazolam HCl (Versed) 5 mg 1X STAT IV Last administered on 07/04/20at 09:41; Start 07/04/20 at 09:21; Stop 07/04/20 at 09:22; Status DC Midazolam HCl (Versed) 5 mg STK-MED ONCE .ROUTE ; Start 07/04/20 at 09:21; Stop 07/04/20 at 09:21; Status DC Etomidate (Amidate) 10 mg 1X ONCE IV Last administered on 07/04/20at 09:37; Start 07/04/20 at 09:30; Stop 07/04/20 at 09:31; Status DC Succinylcholine Chloride (Anectine) 200 mg 1X ONCE IV Last administered on 07/04/20at 09:38; Start 07/04/20 at 09:30; Stop 07/04/20 at 09:31; Status DC Vecuronium [place] (Norcuron Bolus) 6 mg 1X ONCE IV Last administered on 07/04/20at 09:38; Start 07/04/20 at 09:45; Stop 07/04/20 at 09:46; Status DC Vecuronium [place] (Norcuron Bolus) 10 mg STK-MED ONCE IV ; Start 07/04/20 at 09:33; Stop 07/04/20 at 09:33; Status DC Pantoprazole Sodium (PROTONIX VIAL for IV PUSH) 40 mg DAILYAC IVP Last administered on 07/21/20at 07:58; Start 07/04/20 at 12:30 Methylprednisolone Sodium Succinate (SOLU-Medrol 40MG VIAL) 40 mg Q8HRS IV Last administered on 07/11/20at 05:41; Start 07/04/20 at 14:00; Stop 07/11/20 at 11:36; Status DC Piperacillin Sod/ Tazobactam Sod (Zosyn Per Pharmacy) 1 each PRN DAILY PRN MC SEE COMMENTS; Start 07/04/20 at 12:00; Stop 07/18/20 at 07:46; Status DC Heparin Sodium/ Dextrose 250 ml @ 0 mls/hr CONT PRN IV PER PROTOCOL Last administered on 07/15/20at 02:09; Start 07/04/20 at 12:00; Stop 07/16/20 at 12:09; Status DC Heparin Sodium (Porcine) (Heparin Sodium) 2,500 unit PRN Q6HRS PRN IV FOR UFH LEVEL LESS THAN 0.2 Last administered on 07/15/20at 09:19; Start 07/04/20 at 12:00; Stop 07/16/20 at 12:09; Status DC Heparin Sodium (Porcine) (Heparin Sodium) 1,250 unit PRN Q6HRS PRN IV FOR UFH LEVEL 0.2 - 0.29 Last administered on 07/05/20at 18:27; Start 07/04/20 at 12:00; Stop 07/16/20 at 12:09; Status DC Piperacillin Sod/ Tazobactam Sod 3.375 gm/Sodium Chloride 50 ml @ 100 mls/hr Q6HRS IV Last administered on 07/17/20at 05:10; Start 07/04/20 at 12:00; Stop 07/17/20 at 11:11; Status DC Zinc Sulfate (Orazinc) 220 mg DAILY PO Last administered on 07/21/20at 08:37; Start 07/05/20 at 09:00 Ascorbic Acid (Vitamin C) 500 mg Q6HRS PO Last administered on 07/21/20at 08:37; Start 07/04/20 at 18:00 Vitamin D (Vitamin D3) 5,000 unit DAILY PO Last administered on 07/21/20at 08:37; Start 07/05/20 at 09:00 Vecuronium [place] (Norcuron Bolus) 6 mg 1X ONCE IV Last administered on 07/04/20at 13:27; Start 07/04/20 at 13:15; Stop 07/04/20 at 13:16; Status DC Norepinephrine Bitartrate 8 mg/ Dextrose 258 ml @ 16.061 mls/ hr CONT PRN IV PER PROTOCOL Last administered on 07/05/20at 00:33; Start 07/04/20 at 13:15; Stop 07/18/20 at 11:01; Status DC Fentanyl Citrate 55 ml @ 0 mls/hr CONT PRN IV SEE PROTOCOL Last administered on 07/21/20at 06:57; Start 07/04/20 at 14:45 Vecuronium [place] (Norcuron Bolus) 6 mg Q4H PRN IV OVERBREATHING VENT/out of sync Last administered on 07/20/20at 12:32; Start 07/04/20 at 16:45 Furosemide (Lasix) 40 mg 1X ONCE IVP Last administered on 07/05/20at 14:17; Start 07/05/20 at 13:30; Stop 07/05/20 at 13:31; Status DC Insulin Human Lispro (HumaLOG) 0-5 UNITS Q6HRS SQ Last administered on 07/11/20at 05:42; Start 07/05/20 at 18:00; Stop 07/11/20 at 07:54; Status DC Dextrose (Dextrose 50%-Water Syringe) 12.5 gm PRN Q15MIN PRN IV SEE COMMENTS; Start 07/05/20 at 14:15 Insulin Human Lispro (HumaLOG) 2 units 1X ONCE SQ Last administered on 07/05/20at 14:19; Start 07/05/20 at 14:30; Stop 07/05/20 at 14:31; Status DC Remdesivir 200 mg/ Sodium Chloride 210 ml @ 210 mls/hr 1X ONCE IV Last admi nistered on 07/06/20at 14:51; Start 07/06/20 at 14:30; Stop 07/06/20 at 15:29; Status DC Remdesivir 100 mg/ Sodium Chloride 230 ml @ 460 mls/hr Q24H IV Last administered on 07/10/20at 13:59; Start 07/07/20 at 14:30; Stop 07/10/20 at 14:59; Status DC Insulin Human Lispro (HumaLOG) 0-9 UNITS TIDWMEALS SQ Last administered on 07/12/20at 11:31; Start 07/11/20 at 08:00; Stop 07/13/20 at 10:17; Status DC Methylprednisolone Sodium Succinate (SOLU-Medrol 40MG VIAL) 40 mg DAILY IV Last administered on 07/14/20at 07:57; Start 07/12/20 at 09:00; Stop 07/14/20 at 09:26; Status DC Acetaminophen (Tylenol) 650 mg PRN Q6HRS PRN PEG MILD PAIN / TEMP > 100.3'F Last administered on 07/12/20at 12:11; Start 07/12/20 at 12:00 Vecuronium [place] 50 mg/ Miscellaneous 50 ml @ 4.094 mls/ hr CONT PRN IV SEE I/O RECORD Last administered on 07/18/20at 01:56; Start 07/12/20 at 14:45 Insulin Human Lispro (HumaLOG) 0-9 UNITS Q6HRS SQ Last administered on 07/21/20at 11:56; Start 07/13/20 at 12:00 Methylprednisolone Sodium Succinate (SOLU-Medrol 40MG VIAL) 40 mg Q12HR IV Last administered on 07/16/20at 09:57; Start 07/14/20 at 21:00; Stop 07/16/20 at 12:10; Status DC Info (Anti-Coagulation Monitoring By Pharmacy) 1 each PRN DAILY PRN MC SEE COMMENTS Last administered on 07/21/20at 10:10; Start 07/16/20 at 08:15 Apixaban (Eliquis) 10 mg BID PO Last administered on 07/21/20at 08:37; Start 1 09/15/19 at 13:00; Stop 07/22/20 at 21:01 Methylprednisolone Sodium Succinate (SOLU-Medrol 40MG VIAL) 40 mg DAILY IV Last administered on 07/16/20at 12:22; Start 07/16/20 at 13:00; Stop 07/17/20 at 08:24; Status DC Apixaban (Eliquis) 5 mg BID PO ; Start 07/23/20 at 09:00 Methylprednisolone Sodium Succinate (SOLU-Medrol 40MG VIAL) 40 mg Q12HR IV Last administered on 07/20/20at 07:54; Start 07/17/20 at 09:00; Stop 07/20/20 at 10:20; Status DC Multi-Ingred Cream/Lotion/Oil/ Oint (Artificial Tears Eye Ointment) 1 wenceslao PRN Q1HR PRN OU DRY EYE; Start 07/18/20 at 10:45 Furosemide (Lasix) 40 mg 1X ONCE IVP Last administered on 07/19/20at 00:55; Start 07/19/20 at 00:45; Stop 07/19/20 at 00:46; Status DC Methylprednisolone Sodium Succinate (SOLU-Medrol 40MG VIAL) 40 mg DAILY IV Last administered on 07/21/20at 08:36; Start 07/21/20 at 09:00 Lorazepam (Ativan Inj) 2 mg PRN Q1HR PRN IV SEE COMMENTS Last administered on 07/21/20at 12:59; Start 07/21/20 at 12:30 Vitals/I & O Vital Sign - Last 24 Hours 07/20/20 07/20/20 07/20/20 07/20/20 15:00 15:34 15:35 16:00 Temp 99.3 99.3 Pulse 84 76 Resp B/P (MAP) 108/66 (80) 115/72 (86) Pulse Ox 94 94 94 O2 Delivery Ventilator Ventilator Mechanical Ventilator Ventilator 07/20/20 07/20/20 07/20/20 07/20/20 17:00 18:00 19:00 20:00 Pulse 65 58 61 Resp B/P (MAP) 102/60 (74) 96/57 (70) 92/55 (67) Pulse Ox 94 93 96 O2 Delivery Ventilator Ventilator Ventilator Mechanical Ventilator 07/20/20 07/20/20 07/20/20 07/20/20 20:00 20:25 21:00 22:00 Temp 98.6 98.6 Pulse 69 74 78 Resp B/P (MAP) 107/61 (76) 118/69 (85) 100/62 (75) Pulse Ox 96 96 94 95 O2 Delivery Ventilator Ventilator Ventilator Ventilator 07/20/20 07/20/20 07/21/20 07/21/20 23:00 23:45 00:00 00:00 Temp 98.7 98.7 Pulse 76 76 Resp B/P (MAP) 101/62 (75) 105/61 (76) Pulse Ox 94 96 96 O2 Delivery Ventilator Ventilator Mechanical Ventilator Ventilator 07/21/20 07/21/20 07/21/20 07/21/20 01:00 02:00 03:00 04:00 Temp 99.1 99.1 Pulse 92 84 88 82 Resp B/P (MAP) 116/71 (86) 97/60 (72) 110/69 (83) 112/69 (83) Pulse Ox 97 95 96 94 O2 Delivery Ventilator Ventilator Ventilator Ventilator 07/21/20 07/21/20 07/21/20 07/21/20 04:00 04:06 05:00 06:00 Pulse 73 81 Resp B/P (MAP) 108/69 (82) 105/64 (78) Pulse Ox 95 95 95 O2 Delivery Mechanical Ventilator Ventilator Ventilator Ventilator 07/21/20 07/21/20 07/21/20 07/21/20 06:57 07:00 07:37 08:00 Temp 99.0 99.0 Pulse 83 86 Resp B/P (MAP) 121/78 (92) 116/73 (87) Pulse Ox 95 95 95 95 O2 Delivery Ventilator Ventilator Ventilator Ventilator O2 Flow Rate 15.0 15.0 07/21/20 07/21/20 07/21/20 07/21/20 08:00 08:37 09:00 10:00 Pulse 92 83 B/P (MAP) 120/74 (89) 119/74 (89) Pulse Ox 95 95 95 O2 Delivery Mechanical Ventilator Ventilator Ventilator Ventilator 07/21/20 07/21/20 07/21/20 07/21/20 11:00 12:00 12:00 12:22 Temp 99.2 99.2 Pulse 80 90 Resp B/P (MAP) 105/64 (78) 127/75 (92) Pulse Ox 94 92 92 O2 Delivery Ventilator Mechanical Ventilator Ventilator Ventilator 07/21/20 07/21/20 13:00 14:00 Pulse 91 82 Resp B/P (MAP) 126/72 (90) 124/73 (90) Pulse Ox 92 91 O2 Delivery Ventilator Ventilator Intake and Output 07/20/20 07/20/20 07/21/20 15:00 23:00 07:00 Intake Total 200 ml 1477 ml 1336 ml Output Total 925 ml 1525 ml 760 ml Balance -725 ml -48 ml 576 ml Justicifation of Admission Dx: Justifications for Admission: Justification of Admission Dx: Yes SCOTT RUSH MD Jul 21, 2020 14:10
[2020-07-21] MEDS: MIDAZOLAM 100mg/100ml NS BAG 100 ML IV PRN (19:59)
[2020-07-22] VITALS (24 sets, daily range): BP systolic 83–130; BP diastolic 47–81
[2020-07-22] MEDS: ASCORBIC ACID 500 MG TABLET PO SCH ×4 (00:10→17:55)
[2020-07-22] MEDS: INSULIN LISPRO 300 UNITS/3 ML VIAL. SQ SCH ×4 (00:11→17:55)
[2020-07-22] MEDS: PROPOFOL 100 ML IV PRN ×5 (03:22→19:09)
[2020-07-22] MEDS: MIDAZOLAM 100mg/100ml NS BAG 100 ML IV PRN ×2 (07:39→16:20)
[2020-07-22 08:06] LABS: BASE EXCESS ABG 8 mmol/L (-3-3); HCO3 ABG 33 mmol/L (21-28); PCO2 ABG 49 mmHg (35-46); PO2 ABG 72 mmHg (75-108); SAT O2 ABG 94 % (92-99)
[2020-07-22] MEDS: methylPREDNISolone SOD SUCC PF 40 MG/ML VIAL. IV SCH (09:08)
[2020-07-22] MEDS: APIXABAN 5 MG TABLET. PO SCH ×2 (09:09→20:39)
[2020-07-22] MEDS: PANTOPRAZOLE IV PUSH 40 MG VIAL. IVP SCH (09:09)
[2020-07-22] MEDS: CHOLECALCIFEROL (VITAMIN D3) 5,000 UNIT CAPSULE PO SCH (09:09)
[2020-07-22] MEDS: ZINC SULFATE 220 MG CAPSULE. PO SCH (09:09)
--- NOTE | 2020-07-22 09:12 | PDOC ---
PROGRESS NOTES Date of Service: DATE: 07/22/20 TIME: 09:08 Chief Complaint Chief Complaint Acute hypoxic respiratory failure requiring intubation COVID-19 PUI Subsegmental bilateral PE Leukocytosis NSTEMI AKA Lactic acidosis Hyponatremia Plan: Appreciate pulmonology recommendations Continue current ventilatory support, currently on 70% and PEEP of 6, avoid increasing PEEP 2/2 risk of barotrauma Follow chest x-ray and ABG, vent management as per pulmonology Heparin has been transitioned to Xarelto Solu-Medrol 40 mg every 12 hours Appreciate ID recommendationscontinue Remdesivir and empiric antibiotics IV fluids will place a phone call to family later in the day. Discussed with RN and SW. History of Present Illness History of Present Illness 09/21/2019 Patient with no acute events overnight, slowly improving, as per territory sales consultant will hopefully trial him in the am 07/21/2020 Patient no acute events reported overnight. Patient continues to require a lot of support from vent. Discussed with RN 09/19/2019 Patient continues to be pretty much the same , fio2 is at 70%, heparin 07/19/2020 Patient hypotensive today, we will follow recommendations from critical healthcare account manager. Vent management as per territory sales consultant, no other complaints. 07/18/2020 Patient with no acute events reported overnight, fio2 is now at 75% PEEP of 6, Vent management as per pulmonary territory sales consultant slight increase in temperature noted over the lat 24 hours. Will continue to follow 07/17/2020 Patient with no acute events reported overnight, contineus to require an fio2 of 80%, continue with supportive measures. 07/16/2020 Patient with no acute events reported overnight, patient continues to require quite a bit of FiO2 at 80%. Vent management as per territory sales consultant, will place a call to family members after rounding. Discussed with RN 07/15/2020 Patient seen and examined bedside in the ICU. FiO2 80% PEEP of 6.pH 7.56, PCO2 32, PO2 56, HCO3 28. Will adjust respiratory rate accordingly to correct pH.> 50% time spent in patient chart, labs, and imaging review and in discussion with RN and JAVIER 07/14/2020 Patient seen and examined bedside. FiO2 65% and PEEP of 6 on vent. ABG: pH 7.26, PCO2 77, PO2 114, HCO3 34. We will adjust respiratory rate or tidal volume to titrate pH.> 50% time spent in patient chart, labs, and imaging review and in discussion with RN and JAVIER 07/13/2020 No acute events overnight. Patient examined bedside sedated and intubated. FiO2 70% PEEP of 6. Improved ABGs.> 50% time spent in patient chart, labs, and imaging review and in discussion with RN and JAVIER 07/12/2020 Patient seen and examined in the ICU. Sedated and intubated. FiO2 65, PEEP of 8 with improved oxygenation. pH 7.4, PCO2 48, PO2 94, HCO3 30. +500 cc fluid balance.> 50% time spent in patient chart, labs, and imaging review and in discussion with RN and JVAIER 07/11/2020 Patient seen and examined bedside in the ICU. Patient continues to be intubated and sedated. FiO2 75%, PEEP of 10. pH 7.40, PCO2 44, PO2 is 135, HCO3 26. Can likely decrease FiO2 due to improved oxygenation. +173 cc in the past 24 hours 07/10/2020 Patient seen and examined bedside in ICU. Patient is intubated and sedated. FiO2 90%, PEEP of 10, respiratory rate of 30. ABG: pH is 7.41, PCO2 42, PO2 113, HCO3 26. 07/09/2020 Patient seen and examined in the ICU. Intubated and sedated. Vent settings FiO2 90%, PEEP of 10, respiratory rate of 30. 07/05: Patient seen in ICU, still intubated and sedated. COVID-19 pending. Patient remains on heparin infusion. Discussed with RN, will try to have central line placed per anesthesia. 07/06: Patient seen in ICU. Still FiO2 100% on vent and sedated. COVID-19 positive. Continue heparin infusion, Zosyn, steroids. 07/07: Covid positive patient seen in ICU. On vent with FiO2 100%, PEEP 10. Continue remdesivir, steroids, Zosyn. Continue to monitor 07/08: Patient seen in Covid ICU. Still on vent with FiO2 100%, PEEP 10. Afebrile. No acute events overnight. Continue steroids, antibiotics, and remdesivir. Patient is 49-year-old male with past medical history of hypertension, who presents to the ED with complaints of worsening shortness of breath over the past 5 days. Associated sore throat, fatigue, and generalized weakness. Patient was reportedly tested for COVID-19 last Thursday, but he had negative test results. His symptoms acutely worsened yesterday. Upon arrival to the ER his oxygen saturation was 60% on room air. He was placed on BiPAP and admitted to the ICU. Patient was subsequently intubated due to worsening respiratory failure. Vitals Vitals Vital Signs Date Time Temp Pulse Resp B/P (MAP) Pulse Ox O2 Delivery O2 Flow Rate FiO2 07/22/20 08:00 Mechanical Ventilator 07/22/20 08:00 98.6 80 22 109/66 (80) 94 98.6 07/21/20 07:37 15.0 Physical Exam Physical Exam Visual exam done due to [place] pandemic General intubated LUNGS: Mechanical ventilation HEART: Regular rhythm ABDOMEN: Nondistended SKIN: No generalized rash General: Other (Sedated and intubated) Heart: Regular rate (SR/ST) Lungs: Other (orally intubated, clear ) Abdomen: Other (Nondistended) Extremities: No clubbing, No cyanosis Skin: No rashes, No breakdown Labs LABS Laboratory Tests Test 07/21/20 11:49 07/21/20 17:31 07/22/20 06:20 Glucose (Fingerstick) 200 mg/dL (70-99) 234 mg/dL (70-99) 147 mg/dL (70-99) Assessment and Plan Assessmemt and Plan Problems Medical Problems: (1) Acute respiratory failure with hypoxia Status: Acute (2) PRIYA (acute kidney injury) Status: Acute (3) Elevated troponin I level Status: Acute (4) Pulmonary emboli Status: Acute (5) Suspected COVID-19 virus infection Status: Acute Comment Review of Relevant I have reviewed the following items trino (where applicable) has been applied. Labs Laboratory Tests Test 07/20/20 11:44 07/20/20 18:03 07/20/20 23:59 07/21/20 05:40 Glucose (Fingerstick) 167 mg/dL (70-99) 175 mg/dL (70-99) 155 mg/dL (70-99) White Blood Count 13.7 x10^3/uL (4.0-11.0) Red Blood Count 3.24 x10^6/uL (4.30-5.70) Hemoglobin 10.7 g/dL (13.0-17.5) Hematocrit 32.4 % (39.0-53.0) Mean Corpuscular Volume 100 fL (79-100) Mean Corpuscular Hemoglobin 33 pg (25-35) Mean Corpuscular Hemoglobin Concent 33 g/dL (31-37) Red Cell Distribution Width 14.5 % (11.5-14.5) Platelet Count 153 x10^3/uL (140-400) Neutrophils (%) (Auto) 87 % (31-73) Lymphocytes (%) (Auto) 9 % (24-48) Monocytes (%) (Auto) 3 % (0-9) Eosinophils (%) (Auto) 1 % (0-3) Basophils (%) (Auto) 0 % (0-3) Neutrophils # (Auto) 11.8 x10^3/uL (1.8-7.7) Lymphocytes # (Auto) 1.3 x10^3/uL (1.0-4.8) Monocytes # (Auto) 0.4 x10^3/uL (0.0-1.1) Eosinophils # (Auto) 0.2 x10^3/uL (0.0-0.7) Basophils # (Auto) 0.0 x10^3/uL (0.0-0.2) Sodium Level 137 mmol/L (136-145) Potassium Level 3.8 mmol/L (3.5-5.1) Chloride Level 100 mmol/L (98-107) Carbon Dioxide Level 33 mmol/L (21-32) Anion Gap 4 (6-14) Blood Urea Nitrogen 17 mg/dL (8-26) Creatinine 0.5 mg/dL (0.7-1.3) Estimated GFR (Cockcroft-Gault) 176.0 Glucose Level 139 mg/dL (70-99) Calcium Level 8.0 mg/dL (8.5-10.1) Test 07/21/20 08:36 07/21/20 11:49 07/21/20 17:31 07/22/20 06:20 O2 Saturation 95 % (92-99) Arterial Blood pH 7.49 (7.35-7.45) Arterial Blood pCO2 at Patient Temp 40 mmHg (35-46) Arterial Blood pO2 at Patient Temp 77 mmHg (75-108) Arterial Blood HCO3 29 mmol/L (21-28) Arterial Blood Base Excess 6 mmol/L (-3-3) FiO2 60 vent Glucose (Fingerstick) 200 mg/dL (70-99) 234 mg/dL (70-99) 147 mg/dL (70-99) Laboratory Tests Test 07/21/20 11:49 07/21/20 17:31 07/22/20 06:20 Glucose (Fingerstick) 200 mg/dL (70-99) 234 mg/dL (70-99) 147 mg/dL (70-99) Microbiology 07/03/20 Blood Culture - Final, Complete NO GROWTH AFTER 5 DAYS Medications Current Medications Ceftriaxone Sodium (Rocephin) 1 gm 1X ONCE IVP Last administered on 07/03/20at 20:11; Start 07/03/20 at 19:15; Stop 07/03/20 at 19:19; Status DC Azithromycin (Zithromax) 500 mg 1X ONCE PO Last administered on 07/03/20at 20:11; Start 07/03/20 at 19:15; Stop 07/03/20 at 19:19; Status DC Sodium Chloride 1,000 ml @ 1,000 mls/hr 1X ONCE IV Last administered on 07/03/20at 20:11; Start 07/03/20 at 19:15; Stop 07/03/20 at 20:14; Status DC Sodium Chloride 1,000 ml @ 1,000 mls/hr 1X ONCE IV Last administered on 07/03/20at 19:15; Start 07/03/20 at 19:15; Stop 07/03/20 at 20:14; Status DC Iohexol (Omnipaque 350 Mg/ml) 90 ml 1X ONCE IV Last administered on 07/03/20at 21:00; Start 07/03/20 at 20:45; Stop 07/03/20 at 20:46; Status DC Info (CONTRAST GIVEN -- Rx MONITORING) 1 each PRN DAILY PRN MC SEE COMMENTS; Start 07/03/20 at 20:45; Stop 07/05/20 at 20:44; Status DC Enoxaparin Sodium (Lovenox 150mg Syringe) 150 mg 1X ONCE SQ Last administered on 07/03/20at 22:45; Start 07/03/20 at 23:00; Stop 07/03/20 at 23:01; Status DC Ondansetron HCl (Zofran) 4 mg PRN Q8HRS PRN IV NAUSEA/VOMITING 1ST CHOICE; Start 07/03/20 at 22:30; Stop 07/04/20 at 22:29; Status DC Morphine Sulfate (Morphine Sulfate) 2 mg PRN Q2HR PRN IV SEVERE PAIN 7-10; Start 07/03/20 at 22:30; Stop 07/04/20 at 22:29; Status DC Sodium Chloride 1,000 ml @ 100 mls/hr Q10H IV Last administered on 07/05/20at 00:35; Start 07/03/20 at 23:00; Stop 07/04/20 at 22:59; Status DC Acetaminophen (Tylenol) 650 mg PRN Q4HRS PRN PO FEVER > 100.3'F; Start 07/03/20 at 22:30; Stop 07/04/20 at 22:29; Status DC Throat Lozenges (Cepacol Sore Throat Lozenge) 1 lety PRN Q2HRS PRN PO SORE THROAT; Start 07/04/20 at 01:15 Furosemide (Lasix) 20 mg 1X ONCE IVP Last administered on 07/04/20at 10:10; Start 07/04/20 at 10:00; Stop 07/04/20 at 10:01; Status DC Succinylcholine Chloride (Anectine) 200 mg STK-MED ONCE .ROUTE ; Start 07/04/20 at 09:09; Stop 07/04/20 at 09:09; Status DC Etomidate (Amidate) 20 mg STK-MED ONCE IV ; Start 07/04/20 at 09:09; Stop 07/04/20 at 09:09; Status DC Fentanyl Citrate 30 ml @ 0 mls/hr CONT PRN IV SEE PROTOCOL Last administered on 07/04/20at 09:36; Start 07/04/20 at 09:15; Stop 07/04/20 at 14:36; Status DC Propofol 100 ml @ 0 mls/hr CONT PRN IV SEE PROTOCOL Last administered on 07/22/20at 07:22; Start 07/04/20 at 09:15 Midazolam HCl 100 ml @ 0 mls/hr CONT PRN IV SEE PROTOCOL Last administered on 07/22/20at 07:39; Start 07/04/20 at 09:15 Midazolam HCl (Versed) 5 mg 1X STAT IV Last administered on 07/04/20at 09:41; Start 07/04/20 at 09:21; Stop 07/04/20 at 09:22; Status DC Midazolam HCl (Versed) 5 mg STK-MED ONCE .ROUTE ; Start 07/04/20 at 09:21; Stop 07/04/20 at 09:21; Status DC Etomidate (Amidate) 10 mg 1X ONCE IV Last administered on 07/04/20at 09:37; Start 07/04/20 at 09:30; Stop 07/04/20 at 09:31; Status DC Succinylcholine Chloride (Anectine) 200 mg 1X ONCE IV Last administered on 07/04/20at 09:38; Start 07/04/20 at 09:30; Stop 07/04/20 at 09:31; Status DC Vecuronium Ripton (Norcuron Bolus) 6 mg 1X ONCE IV Last administered on 07/04/20at 09:38; Start 07/04/20 at 09:45; Stop 07/04/20 at 09:46; Status DC Vecuronium Ripton (Norcuron Bolus) 10 mg STK-MED ONCE IV ; Start 07/04/20 at 09:33; Stop 07/04/20 at 09:33; Status DC Pantoprazole Sodium (PROTONIX VIAL for IV PUSH) 40 mg DAILYAC IVP Last administered on 07/21/20at 07:58; Start 07/04/20 at 12:30 Methylprednisolone Sodium Succinate (SOLU-Medrol 40MG VIAL) 40 mg Q8HRS IV Last administered on 07/11/20at 05:41; Start 07/04/20 at 14:00; Stop 07/11/20 at 11:36; Status DC Piperacillin Sod/ Tazobactam Sod (Zosyn Per Pharmacy) 1 each PRN DAILY PRN MC SEE COMMENTS; Start 07/04/20 at 12:00; Stop 07/18/20 at 07:46; Status DC Heparin Sodium/ Dextrose 250 ml @ 0 mls/hr CONT PRN IV PER PROTOCOL Last administered on 07/15/20at 02:09; Start 07/04/20 at 12:00; Stop 07/16/20 at 12:09; Status DC Heparin Sodium (Porcine) (Heparin Sodium) 2,500 unit PRN Q6HRS PRN IV FOR UFH LEVEL LESS THAN 0.2 Last administered on 07/15/20 09:19; Start 07/04/20 at 12:00; Stop 07/16/20 at 12:09; Status DC Heparin Sodium (Porcine) (Heparin Sodium) 1,250 unit PRN Q6HRS PRN IV FOR UFH LEVEL 0.2 - 0.29 Last administered on 07/05/20at 18:27; Start 07/04/20 at 12:00; Stop 07/16/20 at 12:09; Status DC Piperacillin Sod/ Tazobactam Sod 3.375 gm/Sodium Chloride 50 ml @ 100 mls/hr Q6HRS IV Last administered on 07/17/20at 05:10; Start 07/04/20 at 12:00; Stop 07/17/20 at 11:11; Status DC Zinc Sulfate (Orazinc) 220 mg DAILY PO Last administered on 07/21/20at 08:37; Start 07/05/20 at 09:00 Ascorbic Acid (Vitamin C) 500 mg Q6HRS PO Last administered on 07/22/20at 06:17; Start 07/04/20 at 18:00 Vitamin D (Vitamin D3) 5,000 unit DAILY PO Last administered on 07/21/20at 08:37; Start 07/05/20 at 09:00 Vecuronium Ripton (Norcuron Bolus) 6 mg 1X ONCE IV Last administered on 07/04/20at 13:27; Start 07/04/20 at 13:15; Stop 07/04/20 at 13:16; Status DC Norepinephrine Bitartrate 8 mg/ Dextrose 258 ml @ 16.061 mls/ hr CONT PRN IV PER PROTOCOL Last administered on 07/05/20at 00:33; Start 07/04/20 at 13:15; Stop 07/18/20 at 11:01; Status DC Fentanyl Citrate 55 ml @ 0 mls/hr CONT PRN IV SEE PROTOCOL Last administered on 07/21/20at 20:00; Start 07/04/20 at 14:45 Vecuronium Ripton (Norcuron Bolus) 6 mg Q4H PRN IV OVERBREATHING VENT/out of sync Last administered on 07/20/20at 12:32; Start 07/04/20 at 16:45 Furosemide (Lasix) 40 mg 1X ONCE IVP Last administered on 07/05/20at 14:17; S tart 07/05/20 at 13:30; Stop 07/05/20 at 13:31; Status DC Insulin Human Lispro (HumaLOG) 0-5 UNITS Q6HRS SQ Last administered on 07/11/20at 05:42; Start 07/05/20 at 18:00; Stop 07/11/20 at 07:54; Status DC Dextrose (Dextrose 50%-Water Syringe) 12.5 gm PRN Q15MIN PRN IV SEE COMMENTS; Start 07/05/20 at 14:15 Insulin Human Lispro (HumaLOG) 2 units 1X ONCE SQ Last administered on 07/05/20at 14:19; Start 07/05/20 at 14:30; Stop 07/05/20 at 14:31; Status DC Remdesivir 200 mg/ Sodium Chloride 210 ml @ 210 mls/hr 1X ONCE IV Last administered on 07/06/20at 14:51; Start 07/06/20 at 14:30; Stop 07/06/20 at 15:29; Status DC Remdesivir 100 mg/ Sodium Chloride 230 ml @ 460 mls/hr Q24H IV Last administered on 07/10/20at 13:59; Start 07/07/20 at 14:30; Stop 07/10/20 at 14:59; Status DC Insulin Human Lispro (HumaLOG) 0-9 UNITS TIDWMEALS SQ Last administered on 07/12/20at 11:31; Start 07/11/20 at 08:00; Stop 07/13/20 at 10:17; Status DC Methylprednisolone Sodium Succinate (SOLU-Medrol 40MG VIAL) 40 mg DAILY IV Last administered on 07/14/20at 07:57; Start 07/12/20 at 09:00; Stop 07/14/20 at 09:26; Status DC Acetaminophen (Tylenol) 650 mg PRN Q6HRS PRN PEG MILD PAIN / TEMP > 100.3'F Last administered on 07/12/20at 12:11; Start 07/12/20 at 12:00 Vecuronium Ripton 50 mg/ Miscellaneous 50 ml @ 4.094 mls/ hr CONT PRN IV SEE I/O RECORD Last administered on 07/18/20at 01:56; Start 07/12/20 at 14:45 Insulin Human Lispro (HumaLOG) 0-9 UNITS Q6HRS SQ Last administered on 07/22/20at 00:11; Start 07/13/20 at 12:00 Methylprednisolone Sodium Succinate (SOLU-Medrol 40MG VIAL) 40 mg Q12HR IV Last administered on 07/16/20at 09:57; Start 07/14/20 at 21:00; Stop 07/16/20 at 12:10; Status DC Info (Anti-Coagulation Monitoring By Pharmacy) 1 each PRN DAILY PRN MC SEE COMMENTS Last administered on 07/21/20at 10:10; Start 07/16/20 at 08:15 Apixaban (Eliquis) 10 mg BID PO Last administered on 07/21/20at 21:19; Start 07/16/20 at 13:00; Stop 07/22/20 at 21:01 Methylprednisolone Sodium Succinate (SOLU-Medrol 40MG VIAL) 40 mg DAILY IV Last administered on 07/16/20at 12:22; Start 07/16/20 at 13:00; Stop 07/17/20 at 08:24; Status DC Apixaban (Eliquis) 5 mg BID PO ; Start 07/23/20 at 09:00 Methylprednisolone Sodium Succinate (SOLU-Medrol 40MG VIAL) 40 mg Q12HR IV Last administered on 07/20/20at 07:54; Start 07/17/20 at 09:00; Stop 07/20/20 at 10:20; Status DC Multi-Ingred Cream/Lotion/Oil/ Oint (Artificial Tears Eye Ointment) 1 wenceslao PRN Q1HR PRN OU DRY EYE; Start 07/18/20 at 10:45 Furosemide (Lasix) 40 mg 1X ONCE IVP Last administered on 07/19/20at 00:55; Start 07/19/20 at 00:45; Stop 07/19/20 at 00:46; Status DC Methylprednisolone Sodium Succinate (SOLU-Medrol 40MG VIAL) 40 mg DAILY IV Last administered on 07/21/20at 08:36; Start 07/21/20 at 09:00 Lorazepam (Ativan Inj) 2 mg PRN Q1HR PRN IV SEE COMMENTS Last administered on 07/21/20at 12:59; Start 07/21/20 at 12:30 Vitals/I & O Vital Sign - Last 24 Hours 07/21/20 07/21/20 07/21/20 07/21/20 10:00 11:00 12:00 12:00 Temp 99.2 99.2 Pulse 83 80 90 Resp B/P (MAP) 119/74 (89) 105/64 (78) 127/75 (92) Pulse Ox 95 94 92 O2 Delivery Ventilator Ventilator Mechanical Ventilator Ventilator 07/21/20 07/21/20 07/21/20 07/21/20 12:22 13:00 14:00 15:00 Pulse 91 82 66 Resp 22 B/P (MAP) 126/72 (90) 124/73 (90) 95/55 (68) Pulse Ox 92 92 91 93 O2 Delivery Ventilator Ventilator Ventilator Ventilator 07/21/20 07/21/20 07/21/20 07/21/20 15:36 16:00 16:00 17:00 Temp 99.2 99.2 Pulse 63 65 Resp B/P (MAP) 98/57 (71) 97/59 (72) Pulse Ox 92 93 94 O2 Delivery Ventilator Mechanical Ventilator Ventilator Ventilator 07/21/20 07/21/20 07/21/20 07/21/20 18:00 19:00 20:00 20:00 Temp 97.7 97.7 Pulse 60 58 57 Resp 22 B/P (MAP) 94/58 (70) 91/57 (68) 92/59 (70) Pulse Ox 96 96 96 O2 Delivery Ventilator Ventilator Mechanical Ventilator Ventilator 07/21/20 07/21/20 07/21/20 07/21/20 21:00 21:02 22:00 23:00 Pulse 55 52 51 Resp 22 22 22 B/P (MAP) 96/60 (72) 95/59 (71) 92/60 (71) Pulse Ox 95 97 96 96 O2 Delivery Ventilator Ventilator Ventilator Ventilator 07/22/20 07/22/20 07/22/20 07/22/20 00:00 00:00 00:41 01:00 Temp 97.6 97.6 Pulse 55 52 Resp 22 22 B/P (MAP) 103/56 (72) 90/55 (67) Pulse Ox 95 94 95 O2 Delivery Ventilator Mechanical Ventilator Ventilator Ventilator 07/22/20 07/22/20 07/22/20 07/22/20 02:00 03:00 04:00 04:00 Temp 97.6 97.6 Pulse 52 54 56 Resp 22 22 22 B/P (MAP) 85/53 (64) 87/54 (65) 100/66 (77) Pulse Ox 94 94 95 O2 Delivery Ventilator Ventilator Ventilator Mechanical Ventilator 07/22/20 07/22/20 07/22/20 07/22/20 05:00 05:01 06:00 07:00 Pulse 57 67 78 Resp 22 22 22 B/P (MAP) 103/64 (77) 107/72 (84) 117/73 (88) Pulse Ox 96 96 95 95 O2 Delivery Ventilator Ventilator Ventilator Ventilator 07/22/20 07/22/20 07/22/20 07:50 08:00 08:00 Temp 98.6 98.6 Pulse 80 Resp 22 B/P (MAP) 109/66 (80) Pulse Ox 96 94 O2 Delivery Ventilator Ventilator Mechanical Ventilator Intake and Output 07/21/20 07/21/20 07/22/20 15:00 23:00 07:00 Intake Total 200 ml 200 ml 2296 ml Output Total 1000 ml 1525 ml 680 ml Balance -800 ml -1325 ml 1616 ml Justicifation of Admission Dx: Justifications for Admission: Justification of Admission Dx: Yes SCOTT RUSH MD Jul 22, 2020 09:12
--- NOTE | 2020-07-22 09:35 | PDOC ---
PULMONARY PROGRESS NOTES DATE: 07/22/20 TIME: 09:34 Subjective PT. remains on vent support , gradual improvement in oxygenation afebrile overnight no concerns from nursing Vitals Vital Signs Date Time Temp Pulse Resp B/P (MAP) Pulse Ox O2 Delivery O2 Flow Rate FiO2 07/22/20 08:00 Mechanical Ventilator 07/22/20 08:00 98.6 80 22 109/66 (80) 94 98.6 07/21/20 07:37 15.0 Comments Patient seen during pandemic visual exam performed Intubated/sedated RRR no Accessory muscle use No obvious rash or edema Lungs: Other (orally intubated, clear ) Labs Laboratory Tests Test 07/20/20 11:44 07/20/20 18:03 07/20/20 23:59 07/21/20 05:40 Glucose (Fingerstick) 167 mg/dL (70-99) 175 mg/dL (70-99) 155 mg/dL (70-99) White Blood Count 13.7 x10^3/uL (4.0-11.0) Red Blood Count 3.24 x10^6/uL (4.30-5.70) Hemoglobin 10.7 g/dL (13.0-17.5) Hematocrit 32.4 % (39.0-53.0) Mean Corpuscular Volume 100 fL (79-100) Mean Corpuscular Hemoglobin 33 pg (25-35) Mean Corpuscular Hemoglobin Concent 33 g/dL (31-37) Red Cell Distribution Width 14.5 % (11.5-14.5) Platelet Count 153 x10^3/uL (140-400) Neutrophils (%) (Auto) 87 % (31-73) Lymphocytes (%) (Auto) 9 % (24-48) Monocytes (%) (Auto) 3 % (0-9) Eosinophils (%) (Auto) 1 % (0-3) Basophils (%) (Auto) 0 % (0-3) Neutrophils # (Auto) 11.8 x10^3/uL (1.8-7.7) Lymphocytes # (Auto) 1.3 x10^3/uL (1.0-4.8) Monocytes # (Auto) 0.4 x10^3/uL (0.0-1.1) Eosinophils # (Auto) 0.2 x10^3/uL (0.0-0.7) Basophils # (Auto) 0.0 x10^3/uL (0.0-0.2) Sodium Level 137 mmol/L (136-145) Potassium Level 3.8 mmol/L (3.5-5.1) Chloride Level 100 mmol/L (98-107) Carbon Dioxide Level 33 mmol/L (21-32) Anion Gap 4 (6-14) Blood Urea Nitrogen 17 mg/dL (8-26) Creatinine 0.5 mg/dL (0.7-1.3) Estimated GFR (Cockcroft-Gault) 176.0 Glucose Level 139 mg/dL (70-99) Calcium Level 8.0 mg/dL (8.5-10.1) Test 07/21/20 08:36 07/21/20 11:49 07/21/20 17:31 07/22/20 06:20 O2 Saturation 95 % (92-99) Arterial Blood pH 7.49 (7.35-7.45) Arterial Blood pCO2 at Patient Temp 40 mmHg (35-46) Arterial Blood pO2 at Patient Temp 77 mmHg (75-108) Arterial Blood HCO3 29 mmol/L (21-28) Arterial Blood Base Excess 6 mmol/L (-3-3) FiO2 60 vent Glucose (Fingerstick) 200 mg/dL (70-99) 234 mg/dL (70-99) 147 mg/dL (70-99) Test 07/22/20 08:25 O2 Saturation 94 % (92-99) Arterial Blood pH 7.44 (7.35-7.45) Arterial Blood pCO2 at Patient Temp 49 mmHg (35-46) Arterial Blood pO2 at Patient Temp 72 mmHg (75-108) Arterial Blood HCO3 33 mmol/L (21-28) Arterial Blood Base Excess 8 mmol/L (-3-3) FiO2 55% Laboratory Tests Test 07/21/20 11:49 07/21/20 17:31 07/22/20 06:20 07/22/20 08:25 Glucose (Fingerstick) 200 mg/dL (70-99) 234 mg/dL (70-99) 147 mg/dL (70-99) O2 Saturation 94 % (92-99) Arterial Blood pH 7.44 (7.35-7.45) Arterial Blood pCO2 at Patient Temp 49 mmHg (35-46) Arterial Blood pO2 at Patient Temp 72 mmHg (75-108) Arterial Blood HCO3 33 mmol/L (21-28) Arterial Blood Base Excess 8 mmol/L (-3-3) FiO2 55% Comments CXR 07/20 IMPRESSION: 1. Stable to slight increased diffuse mixed interstitial and alveolar infiltrate. 2. Stable support lines and tubes. Impression . IMPRESSION: 1. Acute hypoxemic respiratory failure. 2. Acute pulmonary embolism with cor pulmonale. 3. Possible COVID-19. 4[address] chest revealing ground glass opacities. 5. Hypertension. 6. History of bronchitis. 7. Elevated troponin. 8. Acute kidney injury. 9. Leukocytosis. 10. Covid-19 positive Plan . Continue current ventilatory support, gradually improving oxygenation Follow chest x-ray and ABG, will reduce Fi02 to 50%, begin to wean sedation today, plan for CPAP trial in the morning Follow cardiology recommendations Antibiotics per ID-- off ABX has completed full course of remdesivir DC steroids continue tube feeding for nutritional support DVT/GI prophylaxis, Eliquis/ Protonix Discussed with RN and RT Pt. is FULL CODE Critical Care Time 30min, reviewing labs, diagnostics and discussing with care team NERY SALINAS MD Jul 22, 2020 09:35
[2020-07-22] MEDS: fentaNYL HIGH DOSE PCA 55 ML IV PRN (10:16)
[2020-07-22] MEDS: ANTI-COAG MONITOR BY PHARMACY. MC PRN (10:33)
[2020-07-22] MEDS ORDERED: VECURONIUM BOLUS 10 MG VIAL. IV PRN (12:00)
[2020-07-23] VITALS (24 sets, daily range): BP systolic 95–151; BP diastolic 55–92
[2020-07-23] MEDS: fentaNYL HIGH DOSE PCA 55 ML IV PRN ×2 (00:30→13:05)
[2020-07-23] MEDS: ASCORBIC ACID 500 MG TABLET PO SCH ×5 (00:54→23:45)
[2020-07-23] MEDS: PROPOFOL 100 ML IV PRN ×5 (01:09→21:20)
[2020-07-23] MEDS: ACETAMINOPHEN 650 MG/20.3 ML SOLUTION. PEG PRN ×3 (04:10→17:26)
[2020-07-23] MEDS: MIDAZOLAM 100mg/100ml NS BAG 100 ML IV PRN ×3 (04:30→16:56)
[2020-07-23] MEDS: INSULIN LISPRO 300 UNITS/3 ML VIAL. SQ SCH ×5 (06:00→23:59)
[2020-07-23 06:24] LABS: CREATININE 0.6 mg/dL (0.7-1.3)
[2020-07-23 06:25] LABS: GFR 142.6; POTASSIUM 3.6 mmol/L (3.5-5.1)
[2020-07-23 06:57] LABS: BASO % 0 % (0-3); EOS # 0.1 x10^3/uL (0.0-0.7); EOS % 1 % (0-3); HEMATOCRIT 35.4 % (39.0-53.0); HEMOGLOBIN 11.7 g/dL (13.0-17.5); LYMPH # 0.9 x10^3/uL (1.0-4.8); LYMPH % 6 % (24-48); MEAN CORPUSCULAR HEMOGLOBIN 33 pg (25-35); MEAN CORPUSCULAR HGB CONC 33 g/dL (31-37); MEAN CORPUSCULAR VOLUME 100 fL (79-100); MONO # 0.3 x10^3/uL (0.0-1.1); MONO % 2 % (0-9); NEUT # 13.6 x10^3/uL (1.8-7.7); NEUT % 91 % (31-73); PLATELET COUNT 160 x10^3/uL (140-400); RED BLOOD COUNT 3.54 x10^6/uL (4.30-5.70); RED CELL DISTRIBUTION WIDTH 14.1 % (11.5-14.5)
--- NOTE | 2020-07-23 07:30 | RAD ---
CHEST AP ONLY History: Reason: vent/ covid ICU#104 / Spl. Instructions: / History: Comparison: July 20, 2020 Findings: Stable endotracheal tube, enteric tube and right PICC. Multifocal pulmonary opacities, increased compared to prior. No pleural effusion. No pneumothorax. Unchanged heart size. Impression: 1. Increased multifocal pulmonary opacities. Electronically signed by: Nicolas Clemente DO (07/23/2020 7:27 AM) [id number]
[2020-07-23] MEDS: CHOLECALCIFEROL (VITAMIN D3) 5,000 UNIT CAPSULE PO SCH (08:20)
[2020-07-23] MEDS: APIXABAN 5 MG TABLET. PO SCH ×2 (08:20→21:03)
[2020-07-23] MEDS: ZINC SULFATE 220 MG CAPSULE. PO SCH (08:20)
[2020-07-23] MEDS: PANTOPRAZOLE IV PUSH 40 MG VIAL. IVP SCH (08:20)
[2020-07-23 08:28] LABS: BASE EXCESS ABG 7 mmol/L (-3-3); HCO3 ABG 31 mmol/L (21-28); PCO2 ABG 41 mmHg (35-46); PO2 ABG 66 mmHg (75-108); SAT O2 ABG 93 % (92-99)
--- NOTE | 2020-07-23 08:40 | PDOC ---
PROGRESS NOTES Date of Service: DATE: 07/23/20 TIME: 08:40 Chief Complaint Chief Complaint IMPRESSION Acute hypoxic respiratory failure requiring VENT SUPPORT COVID-19 Subsegmental bilateral PE Leukocytosis NSTEMI AKA Lactic acidosis Hyponatremia, RESOLVED Plan: Appreciate pulmonology recommendations Continue current ventilatory support, currently on 70% and PEEP of 6, avoid increasing PEEP 2/2 risk of barotrauma Follow chest x-ray and ABG, vent management as per pulmonology Heparin has been transitioned to Xarelto Solu-Medrol 40 mg every 12 hours Appreciate ID recommendationscontinue Remdesivir and empiric antibiotics IV fluids Discussed with RN and SW. Antibiotics per ID-- off ABX, infectious disease has signed off, increasing leukocytosis has completed full course of remdesivir continue tube feeding for nutritional support 36 MIN CC TIME History of Present Illness History of Present Illness 07/23/2020 slowly improving, FAILED trial 07/21/2020 Patient no acute events reported overnight. Patient continues to require a lot of support from vent. Discussed with RN 09/19/2019 Patient continues to be pretty much the same , fio2 is at 70%, heparin 07/19/2020 Patient hypotensive today, we will follow recommendations from critical cardiac care unit nurse. Vent management as per network security consultant, no other complaints. 07/18/2020 Patient with no acute events reported overnight, fio2 is now at 75% PEEP of 6, Vent management as per pulmonary network security consultant slight increase in temperature noted over the lat 24 hours. Will continue to follow 07/17/2020 Patient with no acute events reported overnight, contineus to require an fio2 of 80%, continue with supportive measures. 07/16/2020 Patient with no acute events reported overnight, patient continues to require quite a bit of FiO2 at 80%. Vent management as per network security consultant, will place a call to family members after rounding. Discussed with RN 07/15/2020 Patient seen and examined bedside in the ICU. FiO2 80% PEEP of 6.pH 7.56, PCO2 32, PO2 56, HCO3 28. Will adjust respiratory rate accordingly to correct pH.> 50% time spent in patient chart, labs, and imaging review and in discussion with RN and SW 07/14/2020 Patient seen and examined bedside. FiO2 65% and PEEP of 6 on vent. ABG: pH 7.26, PCO2 77, PO2 114, HCO3 34. We will adjust respiratory rate or tidal volume to titrate pH.> 50% time spent in patient chart, labs, and imaging review and in discussion with RN and JAVIRE 07/13/2020 No acute events overnight. Patient examined bedside sedated and intubated. FiO2 70% PEEP of 6. Improved ABGs.> 50% time spent in patient chart, labs, and imaging review and in discussion with RN and JAVIER 07/12/2020 Patient seen and examined in the ICU. Sedated and intubated. FiO2 65, PEEP of 8 with improved oxygenation. pH 7.4, PCO2 48, PO2 94, HCO3 30. +500 cc fluid balance.> 50% time spent in patient chart, labs, and imaging review and in discussion with RN and JAVIER 07/11/2020 Patient seen and examined bedside in the ICU. Patient continues to be intubated and sedated. FiO2 75%, PEEP of 10. pH 7.40, PCO2 44, PO2 is 135, HCO3 26. Can likely decrease FiO2 due to improved oxygenation. +173 cc in the past 24 hours 07/10/2020 Patient seen and examined bedside in ICU. Patient is intubated and sedated. FiO2 90%, PEEP of 10, respiratory rate of 30. ABG: pH is 7.41, PCO2 42, PO2 113, HCO3 26. 07/09/2020 Patient seen and examined in the ICU. Intubated and sedated. Vent settings FiO2 90%, PEEP of 10, respiratory rate of 30. 07/05: Patient seen in ICU, still intubated and sedated. COVID-19 pending. Patient remains on heparin infusion. Discussed with RN, will try to have central line placed per anesthesia. 07/06: Patient seen in ICU. Still FiO2 100% on vent and sedated. COVID-19 positive. Continue heparin infusion, Zosyn, steroids. 07/07: Covid positive patient seen in ICU. On vent with FiO2 100%, PEEP 10. Continue remdesivir, steroids, Zosyn. Continue to monitor 07/08: Patient seen in Covid ICU. Still on vent with FiO2 100%, PEEP 10. Afebrile. No acute events overnight. Continue steroids, antibiotics, and remdesivir. Patient is 49-year-old male with past medical history of hypertension, who presents to the ED with complaints of worsening shortness of breath over the past 5 days. Associated sore throat, fatigue, and generalized weakness. Patient was reportedly tested for COVID-19 last Thursday, but he had negative test results. His symptoms acutely worsened yesterday. Upon arrival to the ER his oxygen saturation was 60% on room air. He was placed on BiPAP and admitted to the ICU. Patient was subsequently intubated due to worsening respiratory failure. Vitals Vitals Vital Signs Date Time Temp Pulse Resp B/P (MAP) Pulse Ox O2 Delivery O2 Flow Rate FiO2 07/23/20 07:00 104 22 112/66 (81) 93 Ventilator 07/23/20 04:00 101.4 101.4 07/22/20 10:16 15.0 Physical Exam Physical Exam Visual exam done due to COVID pandemic General intubated LUNGS: Mechanical ventilation HEART: Regular rhythm ABDOMEN: Nondistended SKIN: No generalized rash General: Other (Sedated and intubated) Heart: Regular rate (SR/ST) Lungs: Other (orally intubated, clear ) Abdomen: Other (Nondistended) Extremities: No clubbing, No cyanosis Skin: No rashes, No breakdown Labs LABS CHEST AP ONLY History: Reason: vent/ covid ICU#104 / Spl. Instructions: / History: Comparison: July 20, 2020 Findings: Stable endotracheal tube, enteric tube and right PICC. Multifocal pulmonary opacities, increased compared to prior. No pleural effusion. No pneumothorax. Unchanged heart size. Impression: 1. Increased multifocal pulmonary opacities. Electronically signed by: Nicolas Lynch DO (07/23/2020 7:27 AM) [id number] DICTATED and SIGNED BY: NICOLAS LYNCH DO DATE: 07/23/20 [id number] SPEC #: [id number] ROBE: 07/03/20 STATUS: COMP REQ #: [id number] RECD: 07/03/[address]: YARITZA SMITH DO SOURCE: BLOOD ENTR: 07/03/20 [facility] : MALCOM: ORDERED: BCULT Procedure Result -------- ---- BLOOD CULTURE Final NO GROWTH AFTER 5 DAYS Laboratory Tests Test 07/22/20 14:42 07/22/20 17:42 07/23/20 05:40 Glucose (Fingerstick) 239 mg/dL (70-99) 140 mg/dL (70-99) White Blood Count 15.0 x10^3/uL (4.0-11.0) Red Blood Count 3.54 x10^6/uL (4.30-5.70) Hemoglobin 11.7 g/dL (13.0-17.5) Hematocrit 35.4 % (39.0-53.0) Mean Corpuscular Volume 100 fL (79-100) Mean Corpuscular Hemoglobin 33 pg (25-35) Mean Corpuscular Hemoglobin Concent 33 g/dL (31-37) Red Cell Distribution Width 14.1 % (11.5-14.5) Platelet Count 160 x10^3/uL (140-400) Neutrophils (%) (Auto) 91 % (31-73) Lymphocytes (%) (Auto) 6 % (24-48) Monocytes (%) (Auto) 2 % (0-9) Eosinophils (%) (Auto) 1 % (0-3) Basophils (%) (Auto) 0 % (0-3) Neutrophils # (Auto) 13.6 x10^3/uL (1.8-7.7) Lymphocytes # (Auto) 0.9 x10^3/uL (1.0-4.8) Monocytes # (Auto) 0.3 x10^3/uL (0.0-1.1) Eosinophils # (Auto) 0.1 x10^3/uL (0.0-0.7) Basophils # (Auto) 0.0 x10^3/uL (0.0-0.2) Sodium Level 136 mmol/L (136-145) Potassium Level 3.6 mmol/L (3.5-5.1) Chloride Level 97 mmol/L (98-107) Carbon Dioxide Level 32 mmol/L (21-32) Anion Gap 7 (6-14) Blood Urea Nitrogen 19 mg/dL (8-26) Creatinine 0.6 mg/dL (0.7-1.3) Estimated GFR (Cockcroft-Gault) 142.6 Glucose Level 142 mg/dL (70-99) Calcium Level 8.0 mg/dL (8.5-10.1) Assessment and Plan Assessmemt and Plan Problems Medical Problems: (1) Acute respiratory failure with hypoxia Status: Acute (2) PRIYA (acute kidney injury) Status: Acute (3) Elevated troponin I level Status: Acute (4) Pulmonary emboli Status: Acute (5) Suspected COVID-19 virus infection Status: Acute Comment Review of Relevant I have reviewed the following items trino (where applicable) has been applied. Labs Laboratory Tests Test 07/21/20 11:49 07/21/20 17:31 07/21/20 23:56 07/22/20 06:20 Glucose (Fingerstick) 200 mg/dL (70-99) 234 mg/dL (70-99) 165 mg/dL (70-99) 147 mg/dL (70-99) Test 07/22/20 08:25 07/22/20 14:42 07/22/20 17:42 07/23/20 05:40 O2 Saturation 94 % (92-99) Arterial Blood pH 7.44 (7.35-7.45) Arterial Blood pCO2 at Patient Temp 49 mmHg (35-46) Arterial Blood pO2 at Patient Temp 72 mmHg (75-108) Arterial Blood HCO3 33 mmol/L (21-28) Arterial Blood Base Excess 8 mmol/L (-3-3) FiO2 55% Glucose (Fingerstick) 239 mg/dL (70-99) 140 mg/dL (70-99) White Blood Count 15.0 x10^3/uL (4.0-11.0) Red Blood Count 3.54 x10^6/uL (4.30-5.70) Hemoglobin 11.7 g/dL (13.0-17.5) Hematocrit 35.4 % (39.0-53.0) Mean Corpuscular Volume 100 fL (79-100) Mean Corpuscular Hemoglobin 33 pg (25-35) Mean Corpuscular Hemoglobin Concent 33 g/dL (31-37) Red Cell Distribution Width 14.1 % (11.5-14.5) Platelet Count 160 x10^3/uL (140-400) Neutrophils (%) (Auto) 91 % (31-73) Lymphocytes (%) (Auto) 6 % (24-48) Monocytes (%) (Auto) 2 % (0-9) Eosinophils (%) (Auto) 1 % (0-3) Basophils (%) (Auto) 0 % (0-3) Neutrophils # (Auto) 13.6 x10^3/uL (1.8-7.7) Lymphocytes # (Auto) 0.9 x10^3/uL (1.0-4.8) Monocytes # (Auto) 0.3 x10^3/uL (0.0-1.1) Eosinophils # (Auto) 0.1 x10^3/uL (0.0-0.7) Basophils # (Auto) 0.0 x10^3/uL (0.0-0.2) Sodium Level 136 mmol/L (136-145) Potassium Level 3.6 mmol/L (3.5-5.1) Chloride Level 97 mmol/L (98-107) Carbon Dioxide Level 32 mmol/L (21-32) Anion Gap 7 (6-14) Blood Urea Nitrogen 19 mg/dL (8-26) Creatinine 0.6 mg/dL (0.7-1.3) Estimated GFR (Cockcroft-Gault) 142.6 Glucose Level 142 mg/dL (70-99) Calcium Level 8.0 mg/dL (8.5-10.1) Laboratory Tests Test 07/22/20 14:42 07/22/20 17:42 07/23/20 05:40 Glucose (Fingerstick) 239 mg/dL (70-99) 140 mg/dL (70-99) White Blood Count 15.0 x10^3/uL (4.0-11.0) Red Blood Count 3.54 x10^6/uL (4.30-5.70) Hemoglobin 11.7 g/dL (13.0-17.5) Hematocrit 35.4 % (39.0-53.0) Mean Corpuscular Volume 100 fL (79-100) Mean Corpuscular Hemoglobin 33 pg (25-35) Mean Corpuscular Hemoglobin Concent 33 g/dL (31-37) Red Cell Distribution Width 14.1 % (11.5-14.5) Platelet Count 160 x10^3/uL (140-400) Neutrophils (%) (Auto) 91 % (31-73) Lymphocytes (%) (Auto) 6 % (24-48) Monocytes (%) (Auto) 2 % (0-9) Eosinophils (%) (Auto) 1 % (0-3) Basophils (%) (Auto) 0 % (0-3) Neutrophils # (Auto) 13.6 x10^3/uL (1.8-7.7) Lymphocytes # (Auto) 0.9 x10^3/uL (1.0-4.8) Monocytes # (Auto) 0.3 x10^3/uL (0.0-1.1) Eosinophils # (Auto) 0.1 x10^3/uL (0.0-0.7) Basophils # (Auto) 0.0 x10^3/uL (0.0-0.2) Sodium Level 136 mmol/L (136-145) Potassium Level 3.6 mmol/L (3.5-5.1) Chloride Level 97 mmol/L (98-107) Carbon Dioxide Level 32 mmol/L (21-32) Anion Gap 7 (6-14) Blood Urea Nitrogen 19 mg/dL (8-26) Creatinine 0.6 mg/dL (0.7-1.3) Estimated GFR (Cockcroft-Gault) 142.6 Glucose Level 142 mg/dL (70-99) Calcium Level 8.0 mg/dL (8.5-10.1) Microbiology 07/03/20 Blood Culture - Final, Complete NO GROWTH AFTER 5 DAYS Medications Current Medications Ceftriaxone Sodium (Rocephin) 1 gm 1X ONCE IVP Last administered on 07/03/20at 20:11; Start 07/03/20 at 19:15; Stop 07/03/20 at 19:19; Status DC Azithromycin (Zithromax) 500 mg 1X ONCE PO Last administered on 07/03/20at 20:11; Start 07/03/20 at 19:15; Stop 07/03/20 at 19:19; Status DC Sodium Chloride 1,000 ml @ 1,000 mls/hr 1X ONCE IV Last administered on 07/03/20at 20:11; Start 07/03/20 at 19:15; Stop 07/03/20 at 20:14; Status DC Sodium Chloride 1,000 ml @ 1,000 mls/hr 1X ONCE IV Last administered on 07/03/20at 19:15; Start 07/03/20 at 19:15; Stop 07/03/20 at 20:14; Status DC Iohexol (Omnipaque 350 Mg/ml) 90 ml 1X ONCE IV Last administered on 07/03/20at 21:00; Start 07/03/20 at 20:45; Stop 07/03/20 at 20:46; Status DC Info (CONTRAST GIVEN -- Rx MONITORING) 1 each PRN DAILY PRN MC SEE COMMENTS; Start 07/03/20 at 20:45; Stop 07/05/20 at 20:44; Status DC Enoxaparin Sodium (Lovenox 150mg Syringe) 150 mg 1X ONCE SQ Last administered on 07/03/20at 22:45; Start 07/03/20 at 23:00; Stop 07/03/20 at 23:01; Status DC Ondansetron HCl (Zofran) 4 mg PRN Q8HRS PRN IV NAUSEA/VOMITING 1ST CHOICE; Start 07/03/20 at 22:30; Stop 07/04/20 at 22:29; Status DC Morphine Sulfate (Morphine Sulfate) 2 mg PRN Q2HR PRN IV SEVERE PAIN 7-10; Start 07/03/20 at 22:30; Stop 07/04/20 at 22:29; Status DC Sodium Chloride 1,000 ml @ 100 mls/hr Q10H IV Last administered on 07/05/20at 00:35; Start 07/03/20 at 23:00; Stop 07/04/20 at 22:59; Status DC Acetaminophen (Tylenol) 650 mg PRN Q4HRS PRN PO FEVER > 100.3'F; Start 07/03/20 at 22:30; Stop 07/04/20 at 22:29; Status DC Throat Lozenges (Cepacol Sore Throat Lozenge) 1 lety PRN Q2HRS PRN PO SORE THROAT; Start 07/04/20 at 01:15 Furosemide (Lasix) 20 mg 1X ONCE IVP Last administered on 07/04/20at 10:10; Start 07/04/20 at 10:00; Stop 07/04/20 at 10:01; Status DC Succinylcholine Chloride (Anectine) 200 mg STK-MED ONCE .ROUTE ; Start 07/04/20 at 09:09; Stop 07/04/20 at 09:09; Status DC Etomidate (Amidate) 20 mg STK-MED ONCE IV ; Start 07/04/20 at 09:09; Stop 07/04/20 at 09:09; Status DC Fentanyl Citrate 30 ml @ 0 mls/hr CONT PRN IV SEE PROTOCOL Last administered on 07/04/20at 09:36; Start 07/04/20 at 09:15; Stop 07/04/20 at 14:36; Status DC Propofol 100 ml @ 0 mls/hr CONT PRN IV SEE PROTOCOL Last administered on 07/23/20at 04:56; Start 07/04/20 at 09:15 Midazolam HCl 100 ml @ 0 mls/hr CONT PRN IV SEE PROTOCOL Last administered on 07/23/20at 04:30; Start 07/04/20 at 09:15 Midazolam HCl (Versed) 5 mg 1X STAT IV Last administered on 07/04/20at 09:41; Start 07/04/20 at 09:21; Stop 07/04/20 at 09:22; Status DC Midazolam HCl (Versed) 5 mg STK-MED ONCE .ROUTE ; Start 07/04/20 at 09:21; Stop 07/04/20 at 09:21; Status DC Etomidate (Amidate) 10 mg 1X ONCE IV Last administered on 07/04/20at 09:37; Start 07/04/20 at 09:30; Stop 07/04/20 at 09:31; Status DC Succinylcholine Chloride (Anectine) 200 mg 1X ONCE IV Last administered on 07/04/20at 09:38; Start 07/04/20 at 09:30; Stop 07/04/20 at 09:31; Status DC Vecuronium Bacliff (Norcuron Bolus) 6 mg 1X ONCE IV Last administered on 07/04/20at 09:38; Start 07/04/20 at 09:45; Stop 07/04/20 at 09:46; Status DC Vecuronium Bacliff (Norcuron Bolus) 10 mg STK-MED ONCE IV ; Start 07/04/20 at 09:33; Stop 07/04/20 at 09:33; Status DC Pantoprazole Sodium (PROTONIX VIAL for IV PUSH) 40 mg DAILYAC IVP Last administered on 07/23/20at 08:20; Start 07/04/20 at 12:30 Methylprednisolone Sodium Succinate (SOLU-Medrol 40MG VIAL) 40 mg Q8HRS IV Last administered on 07/11/20at 05:41; Start 07/04/20 at 14:00; Stop 07/11/20 at 11:36; Status DC Piperacillin Sod/ Tazobactam Sod (Zosyn Per Pharmacy) 1 each PRN DAILY PRN MC SEE COMMENTS; Start 07/04/20 at 12:00; Stop 07/18/20 at 07:46; Status DC Heparin Sodium/ Dextrose 250 ml @ 0 mls/hr CONT PRN IV PER PROTOCOL Last administered on 07/15/20at 02:09; Start 07/04/20 at 12:00; Stop 07/16/20 at 12:09; Status DC Heparin Sodium (Porcine) (Heparin Sodium) 2,500 unit PRN Q6HRS PRN IV FOR UFH LEVEL LESS THAN 0.2 Last administered on 07/15/20at 09:19; Start 07/04/20 at 12:00; Stop 07/16/20 at 12:09; Status DC Heparin Sodium (Porcine) (Heparin Sodium) 1,250 unit PRN Q6HRS PRN IV FOR UFH LEVEL 0.2 - 0.29 Last administered on 07/05/20at 18:27; Start 07/04/20 at 12:00; Stop 07/16/20 at 12:09; Status DC Piperacillin Sod/ Tazobactam Sod 3.375 gm/Sodium Chloride 50 ml @ 100 mls/hr Q6HRS IV Last administered on 07/17/20at 05:10; Start 07/04/20 at 12:00; Stop 07/17/20 at 11:11; Status DC Zinc Sulfate (Orazinc) 220 mg DAILY PO Last administered on 07/23/20at 08:20; Start 07/05/20 at 09:00 Ascorbic Acid (Vitamin C) 500 mg Q6HRS PO Last administered on 07/23/20at 06:05; Start 07/04/20 at 18:00 Vitamin D (Vitamin D3) 5,000 unit DAILY PO Last administered on 07/23/20at 08:20; Start 07/05/20 at 09:00 Vecuronium Bacliff (Norcuron Bolus) 6 mg 1X ONCE IV Last administered on 07/04/20at 13:27; Start 07/04/20 at 13:15; Stop 07/04/20 at 13:16; Status DC Norepinephrine Bitartrate 8 mg/ Dextrose 258 ml @ 16.061 mls/ hr CONT PRN IV PER PROTOCOL Last administered on 07/05/20at 00:33; Start 07/04/20 at 13:15; Stop 07/18/20 at 11:01; Status DC Fentanyl Citrate 55 ml @ 0 mls/hr CONT PRN IV SEE PROTOCOL Last administered on 07/23/20at 00:30; Start 07/04/20 at 14:45 Vecuronium Bacliff (Norcuron Bolus) 6 mg Q4H PRN IV OVERBREATHING VENT/out of sync Last administered on 07/20/20at 12:32; Start 07/04/20 at 16:45; Stop 07/22/20 at 09:34; Status DC Furosemide (Lasix) 40 mg 1X ONCE IVP Last administered on 07/05/20at 14:17; Start 07/05/20 at 13:30; Stop 07/05/20 at 13:31; Status DC Insulin Human Lispro (HumaLOG) 0-5 UNITS Q6HRS SQ Last administered on 07/11/20at 05:42; Start 07/05/20 at 18:00; Stop 07/11/20 at 07:54; Status DC Dextrose (Dextrose 50%-Water Syringe) 12.5 gm PRN Q15MIN PRN IV SEE COMMENTS; Start 07/05/20 at 14:15 Insulin Human Lispro (HumaLOG) 2 units 1X ONCE SQ Last administered on 07/05/20at 14:19; Start 07/05/20 at 14:30; Stop 07/05/20 at 14:31; Status DC Remdesivir 200 mg/ Sodium Chloride 210 ml @ 210 mls/hr 1X ONCE IV Last administered on 07/06/20at 14:51; Start 07/06/20 at 14:30; Stop 07/06/20 at 15:29; Status DC Remdesivir 100 mg/ Sodium Chloride 230 ml @ 460 mls/hr Q24H IV Last administered on 07/10/20at 13:59; Start 07/07/20 at 14:30; Stop 07/10/20 at 14:59; Status DC Insulin Human Lispro (HumaLOG) 0-9 UNITS TIDWMEALS SQ Last administered on 07/12/20at 11:31; Start 07/11/20 at 08:00; Stop 07/13/20 at 10:17; Status DC Methylprednisolone Sodium Succinate (SOLU-Medrol 40MG VIAL) 40 mg DAILY IV Last administered on 07/14/20at 07:57; Start 07/12/20 at 09:00; Stop 07/14/20 at 09:26; Status DC Acetaminophen (Tylenol) 650 mg PRN Q6HRS PRN PEG MILD PAIN / TEMP > 100.3'F Last administered on 07/23/20at 04:10; Start 07/12/20 at 12:00 Vecuronium Bacliff 50 mg/ Miscellaneous 50 ml @ 4.094 mls/ hr CONT PRN IV SEE I/O RECORD Last administered on 07/18/20at 01:56; Start 07/12/20 at 14:45; Stop 07/22/20 at 09:34; Status DC Insulin Human Lispro (HumaLOG) 0-9 UNITS Q6HRS SQ Last administered on 07/22/20at 14:47; Start 07/13/20 at 12:00 Methylprednisolone Sodium Succinate (SOLU-Medrol 40MG VIAL) 40 mg Q12HR IV Last administered on 07/16/20at 09:57; Start 07/14/20 at 21:00; Stop 07/16/20 at 12:10; Status DC Info (Anti-Coagulation Monitoring By Pharmacy) 1 each PRN DAILY PRN MC SEE COMMENTS Last administered on 07/22/20at 10:33; Start 07/16/20 at 08:15 Apixaban (Eliquis) 10 mg BID PO Last administered on 07/22/20at 20:39; Start 07/16/20 at 13:00; Stop 07/22/20 at 21:01; Status DC Methylprednisolone Sodium Succinate (SOLU-Medrol 40MG VIAL) 40 mg DAILY IV Last administered on 07/16/20at 12:22; Start 07/16/20 at 13:00; Stop 07/17/20 at 08:24; Status DC Apixaban (Eliquis) 5 mg BID PO Last administered on 07/23/20at 08:20; Start 07/23/20 at 09:00 Methylprednisolone Sodium Succinate (SOLU-Medrol 40MG VIAL) 40 mg Q12HR IV Last administered on 07/20/20at 07:54; Start 07/17/20 at 09:00; Stop 07/20/20 at 10:20; Status DC Multi-Ingred Cream/Lotion/Oil/ Oint (Artificial Tears Eye Ointment) 1 wenceslao PRN Q1HR PRN OU DRY EYE; Start 07/18/20 at 10:45 Furosemide (Lasix) 40 mg 1X ONCE IVP Last administered on 07/19/20at 00:55; Start 07/19/20 at 00:45; Stop 07/19/20 at 00:46; Status DC Methylprednisolone Sodium Succinate (SOLU-Medrol 40MG VIAL) 40 mg DAILY IV Last administered on 07/22/20at 09:08; Start 07/21/20 at 09:00; Stop 07/22/20 at 09:36; Status DC Lorazepam (Ativan Inj) 2 mg PRN Q1HR PRN IV SEE COMMENTS Last administered on 07/22/20at 11:12; Start 07/21/20 at 12:30 Vecuronium Bacliff (Norcuron Bolus) 6 mg PRN Q6HRS PRN IV SEDATION Last administered on 07/22/20at 12:02; Start 07/22/20 at 12:00 Vitals/I & O Vital Sign - Last 24 Hours 07/22/20 07/22/20 07/22/2029/20 09:00 10:00 10:16 11:00 Pulse 76 84 102 Resp 25 B/P (MAP) 96/61 (73) 106/64 (78) 117/65 (82) Pulse Ox 94 94 94 91 O2 Delivery Ventilator Ventilator Ventilator Ventilator O2 Flow Rate 15.0 07/22/20 07/22/20 07/22/20 07/22/20 11:50 12:00 12:00 13:00 Temp 98.6 98.6 Pulse 102 104 Resp B/P (MAP) 122/74 (90) 123/75 (91) Pulse Ox 92 92 93 O2 Delivery Ventilator Mechanical Ventilator Ventilator Ventilator 07/22/20 07/22/20 07/22/20 07/22/20 14:00 15:00 15:31 16:00 Temp 99.2 99.2 Pulse 100 92 100 Resp B/P (MAP) 110/68 (82) 108/68 (81) 102/59 (73) Pulse Ox 93 92 94 95 O2 Delivery Ventilator Ventilator Ventilator Ventilator 07/22/20 07/22/20 07/22/20 07/22/20 16:00 17:00 18:00 19:00 Pulse 88 74 66 Resp B/P (MAP) 107/65 (79) 90/54 (66) 84/54 (64) Pulse Ox 93 92 93 O2 Delivery Mechanical Ventilator Ventilator Ventilator Ventilator 07/22/20 07/22/20 07/22/20 07/22/20 20:00 20:00 20:03 21:00 Temp 99.2 99.2 Pulse 69 67 Resp B/P (MAP) 97/63 (74) 83/47 (59) Pulse Ox 96 94 96 O2 Delivery Ventilator Mechanical Ventilator Ventilator Ventilator 07/22/20 07/22/20 07/22/20 07/23/20 22:00 23:00 23:47 00:00 Temp 98.5 98.5 Pulse 87 83 80 Resp 22 22 B/P (MAP) 130/81 (97) 126/76 (93) 95/56 (69) Pulse Ox 93 94 94 90 O2 Delivery Ventilator Ventilator Ventilator Ventilator 07/23/20 07/23/20 07/23/20 07/23/20 00:00 00:30 01:00 02:00 Pulse 88 87 Resp 22 22 22 B/P (MAP) 132/77 (95) 121/71 (88) Pulse Ox 95 91 90 O2 Delivery Mechanical Ventilator Ventilator Ventilator Ventilator 07/23/20 07/23/20 07/23/20 07/23/20 03:00 04:00 04:00 04:10 Temp 101.4 101.4 Pulse 100 102 Resp 22 28 B/P (MAP) 121/68 (85) 134/80 (98) Pulse Ox 92 92 92 O2 Delivery Ventilator Mechanical Ventilator Ventilator Ventilator 07/23/20 07/23/20 07/23/20 05:00 06:00 07:00 Pulse 114 104 104 Resp 22 22 B/P (MAP) 135/71 (92) 105/60 (75) 112/66 (81) Pulse Ox 92 92 93 O2 Delivery Ventilator Ventilator Ventilator Intake and Output 07/22/20 07/22/20 07/23/20 15:00 23:00 07:00 Intake Total 200 ml 1322 ml 1346 ml Output Total 675 ml 780 ml 460 ml Balance -475 ml 542 ml 886 ml Justicifation of Admission Dx: Justifications for Admission: Justification of Admission Dx: Yes REESE CASEY MD Jul 23, 2020 08:40
[2020-07-23 09:03] LABS: FIO2 ABG 50
--- NOTE | 2020-07-23 09:53 | PDOC ---
PULMONARY PROGRESS NOTES DATE: 07/23/20 TIME: 09:51 Subjective PT. remains on vent support , 50% FiO2 and a PEEP of 6 Patient did not tolerate sedation vacation yesterday Low-grade fever overnight no concerns from nursing Vitals Vital Signs Date Time Temp Pulse Resp B/P (MAP) Pulse Ox O2 Delivery O2 Flow Rate FiO2 07/23/20 09:00 101 22 115/67 (83) 93 Ventilator 07/23/20 08:00 100.5 100.5 07/22/20 10:16 15.0 Comments Patient seen during pandemic visual exam performed Intubated/sedated RRR no Accessory muscle use No obvious rash or edema Lungs: Other (orally intubated, clear ) Labs Laboratory Tests Test 07/21/20 11:49 07/21/20 17:31 07/21/20 23:56 07/22/20 06:20 Glucose (Fingerstick) 200 mg/dL (70-99) 234 mg/dL (70-99) 165 mg/dL (70-99) 147 mg/dL (70-99) Test 07/22/20 08:25 07/22/20 14:42 07/22/20 17:42 07/23/20 05:40 O2 Saturation 94 % (92-99) Arterial Blood pH 7.44 (7.35-7.45) Arterial Blood pCO2 at Patient Temp 49 mmHg (35-46) Arterial Blood pO2 at Patient Temp 72 mmHg (75-108) Arterial Blood HCO3 33 mmol/L (21-28) Arterial Blood Base Excess 8 mmol/L (-3-3) FiO2 55% Glucose (Fingerstick) 239 mg/dL (70-99) 140 mg/dL (70-99) White Blood Count 15.0 x10^3/uL (4.0-11.0) Red Blood Count 3.54 x10^6/uL (4.30-5.70) Hemoglobin 11.7 g/dL (13.0-17.5) Hematocrit 35.4 % (39.0-53.0) Mean Corpuscular Volume 100 fL (79-100) Mean Corpuscular Hemoglobin 33 pg (25-35) Mean Corpuscular Hemoglobin Concent 33 g/dL (31-37) Red Cell Distribution Width 14.1 % (11.5-14.5) Platelet Count 160 x10^3/uL (140-400) Neutrophils (%) (Auto) 91 % (31-73) Lymphocytes (%) (Auto) 6 % (24-48) Monocytes (%) (Auto) 2 % (0-9) Eosinophils (%) (Auto) 1 % (0-3) Basophils (%) (Auto) 0 % (0-3) Neutrophils # (Auto) 13.6 x10^3/uL (1.8-7.7) Lymphocytes # (Auto) 0.9 x10^3/uL (1.0-4.8) Monocytes # (Auto) 0.3 x10^3/uL (0.0-1.1) Eosinophils # (Auto) 0.1 x10^3/uL (0.0-0.7) Basophils # (Auto) 0.0 x10^3/uL (0.0-0.2) Sodium Level 136 mmol/L (136-145) Potassium Level 3.6 mmol/L (3.5-5.1) Chloride Level 97 mmol/L (98-107) Carbon Dioxide Level 32 mmol/L (21-32) Anion Gap 7 (6-14) Blood Urea Nitrogen 19 mg/dL (8-26) Creatinine 0.6 mg/dL (0.7-1.3) Estimated GFR (Cockcroft-Gault) 142.6 Glucose Level 142 mg/dL (70-99) Calcium Level 8.0 mg/dL (8.5-10.1) Test 07/23/20 07:55 O2 Saturation 93 % (92-99) Arterial Blood pH 7.50 (7.35-7.45) Arterial Blood pCO2 at Patient Temp 41 mmHg (35-46) Arterial Blood pO2 at Patient Temp 66 mmHg (75-108) Arterial Blood HCO3 31 mmol/L (21-28) Arterial Blood Base Excess 7 mmol/L (-3-3) FiO2 50 Laboratory Tests Test 07/22/20 14:42 07/22/20 17:42 07/23/20 05:40 07/23/20 07:55 Glucose (Fingerstick) 239 mg/dL (70-99) 140 mg/dL (70-99) White Blood Count 15.0 x10^3/uL (4.0-11.0) Red Blood Count 3.54 x10^6/uL (4.30-5.70) Hemoglobin 11.7 g/dL (13.0-17.5) Hematocrit 35.4 % (39.0-53.0) Mean Corpuscular Volume 100 fL (79-100) Mean Corpuscular Hemoglobin 33 pg (25-35) Mean Corpuscular Hemoglobin Concent 33 g/dL (31-37) Red Cell Distribution Width 14.1 % (11.5-14.5) Platelet Count 160 x10^3/uL (140-400) Neutrophils (%) (Auto) 91 % (31-73) Lymphocytes (%) (Auto) 6 % (24-48) Monocytes (%) (Auto) 2 % (0-9) Eosinophils (%) (Auto) 1 % (0-3) Basophils (%) (Auto) 0 % (0-3) Neutrophils # (Auto) 13.6 x10^3/uL (1.8-7.7) Lymphocytes # (Auto) 0.9 x10^3/uL (1.0-4.8) Monocytes # (Auto) 0.3 x10^3/uL (0.0-1.1) Eosinophils # (Auto) 0.1 x10^3/uL (0.0-0.7) Basophils # (Auto) 0.0 x10^3/uL (0.0-0.2) Sodium Level 136 mmol/L (136-145) Potassium Level 3.6 mmol/L (3.5-5.1) Chloride Level 97 mmol/L (98-107) Carbon Dioxide Level 32 mmol/L (21-32) Anion Gap 7 (6-14) Blood Urea Nitrogen 19 mg/dL (8-26) Creatinine 0.6 mg/dL (0.7-1.3) Estimated GFR (Cockcroft-Gault) 142.6 Glucose Level 142 mg/dL (70-99) Calcium Level 8.0 mg/dL (8.5-10.1) O2 Saturation 93 % (92-99) Arterial Blood pH 7.50 (7.35-7.45) Arterial Blood pCO2 at Patient Temp 41 mmHg (35-46) Arterial Blood pO2 at Patient Temp 66 mmHg (75-108) Arterial Blood HCO3 31 mmol/L (21-28) Arterial Blood Base Excess 7 mmol/L (-3-3) FiO2 50 Comments CXR 07/23 Impression: 1. Increased multifocal pulmonary opacities. Impression . IMPRESSION: 1. Acute hypoxemic respiratory failure. 2. Acute pulmonary embolism with cor pulmonale. 3. Possible COVID-19. 4[address] CT chest revealing ground glass opacities. 5. Hypertension. 6. History of bronchitis. 7. Elevated troponin. 8. Acute kidney injury. 9. Leukocytosis. 10. Covid-19 positive Plan . Continue current ventilatory support, FiO2 50% and a PEEP of 6, patient did not tolerate sedation vacation yesterday, will proceed with CPAP trial once patient is on 45% FiO2 Follow chest x-ray and ABG, Follow cardiology recommendations Antibiotics per ID-- off ABX, infectious disease has signed off, increasing leukocytosis has completed full course of remdesivir continue tube feeding for nutritional support DVT/GI prophylaxis, Eliquis/ Protonix Discussed with RN and RT Pt. is FULL CODE Critical Care Time 30min, reviewing labs, diagnostics and discussing with care team NERY SALINAS MD Jul 23, 2020 09:53
--- NOTE | 2020-07-23 11:40 | PDOC ---
Infectious Disease Note Subjective: Subjective Asked to see patient again due to fever T-max 101 Patient remains sedated /intubated Discussed with nursing staff Vital Signs: Vital Signs Vital Signs Date Time Temp Pulse Resp B/P (MAP) Pulse Ox O2 Delivery O2 Flow Rate FiO2 07/23/20 11:00 97 22 121/79 (93) 94 Ventilator 07/23/20 10:00 101.0 101.0 07/22/20 10:16 15.0 Physical Exam: PHYSICAL EXAM General intubated/sedated HEENT normocephalic atraumatic, OGT/ETT present LUNGS: Coarse breath sounds anteriorly HEART: S1-S2 no murmurs ABDOMEN: Nondistended, soft bowel sounds present Fernandez in place SKIN: No generalized rash Right upper extremity PICC line clean Neuro unable to assess Psych unable to assess Medications: Inpatient Meds: Current Medications Medications (Trade) Dose Ordered Sig/Natalee Start Time Stop Time Status Last Admin Dose Admin Acetaminophen (Tylenol) 650 mg PRN Q6HRS PRN 07/12/20 12:00 07/23/20 09:17 650 MG Apixaban (Eliquis) 5 mg BID 07/23/20 09:00 07/23/20 08:20 5 MG Ascorbic Acid (Vitamin C) 500 mg Q6HRS 07/04/20 18:00 07/23/20 11:25 500 MG Azithromycin (Zithromax) 500 mg 1X ONCE 07/03/20 19:15 07/03/20 19:19 DC 07/03/20 20:11 500 MG Ceftriaxone Sodium (Rocephin) 1 gm 1X ONCE 07/03/20 19:15 07/03/20 19:19 DC 07/03/20 20:11 1 GM Dextrose (Dextrose 50%-Water Syringe) 12.5 gm PRN Q15MIN PRN 07/05/20 14:15 Enoxaparin Sodium (Lovenox 150mg Syringe) 150 mg 1X ONCE 07/03/20 23:00 07/03/20 23:01 DC 07/03/20 22:45 150 MG Etomidate (Amidate) 10 mg 1X ONCE 07/04/20 09:30 07/04/20 09:31 DC 07/04/20 09:37 10 MG Fentanyl Citrate 55 ml @ 0 mls/hr CONT PRN 07/04/20 14:45 07/23/20 00:30 3 MLS/HR Furosemide (Lasix) 40 mg 1X ONCE 07/19/20 00:45 07/19/20 00:46 DC 07/19/20 00:55 40 MG Heparin Sodium (Porcine) (Heparin Sodium) 1,250 unit PRN Q6HRS PRN 07/04/20 12:00 07/16/20 12:09 DC 07/05/20 18:27 1,250 UNIT Heparin Sodium/ Dextrose 250 ml @ 0 mls/hr CONT PRN 07/04/20 12:00 07/16/20 12:09 DC 07/15/20 02:09 14.9 MLS/HR Info (Anti-Coagulation Monitoring By Pharmacy) 1 each PRN DAILY PRN 07/16/20 08:15 07/22/20 10:33 1 EACH Info (CONTRAST GIVEN -- Rx MONITORING) 1 each PRN DAILY PRN 07/03/20 20:45 07/05/20 20:44 DC Insulin Human Lispro (HumaLOG) 0-9 UNITS Q6HRS 07/13/20 12:00 07/23/20 11:20 4 UNITS Iohexol (Omnipaque 350 Mg/ml) 90 ml 1X ONCE 07/03/20 20:45 07/03/20 20:46 DC 07/03/20 21:00 90 ML Lorazepam (Ativan Inj) 2 mg PRN Q1HR PRN 07/21/20 12:30 07/22/20 11:12 2 MG Methylprednisolone Sodium Succinate (SOLU-Medrol 40MG VIAL) 40 mg DAILY 07/21/20 09:00 07/22/20 09:36 DC 07/22/20 09:08 40 MG Midazolam HCl (Versed) 5 mg STK-MED ONCE 07/04/20 09:21 07/04/20 09:21 DC Morphine Sulfate (Morphine Sulfate) 2 mg PRN Q2HR PRN 07/03/20 22:30 07/04/20 22:29 DC Multi-Ingred Cream/Lotion/Oil/ Oint (Artificial Tears Eye Ointment) 1 wenceslao PRN Q1HR PRN 07/18/20 10:45 Norepinephrine Bitartrate 8 mg/ Dextrose 258 ml @ 16.061 mls/ hr CONT PRN 07/04/20 13:15 07/18/20 11:01 DC 07/05/20 00:33 28.909 MLS/HR Ondansetron HCl (Zofran) 4 mg PRN Q8HRS PRN 07/03/20 22:30 07/04/20 22:29 DC Pantoprazole Sodium (PROTONIX VIAL for IV PUSH) 40 mg DAILYAC 07/04/20 12:30 07/23/20 08:20 40 MG Piperacillin Sod/ Tazobactam Sod (Zosyn Per Pharmacy) 1 each PRN DAILY PRN 07/04/20 12:00 07/18/20 07:46 DC Piperacillin Sod/ Tazobactam Sod 3.375 gm/Sodium Chloride 50 ml @ 100 mls/hr Q6HRS 07/04/20 12:00 07/17/20 11:11 DC 07/17/20 05:10 100 MLS/HR Propofol 100 ml @ 0 mls/hr CONT PRN 07/04/20 09:15 07/23/20 09:18 17.4 MLS/HR Remdesivir 100 mg/ Sodium Chloride 230 ml @ 460 mls/hr Q24H 07/07/20 14:30 07/10/20 14:59 DC 07/10/20 13:59 460 MLS/HR Remdesivir 200 mg/ Sodium Chloride 210 ml @ 210 mls/hr 1X ONCE 07/06/20 14:30 07/06/20 15:29 DC 07/06/20 14:51 210 MLS/HR Sodium Chloride 1,000 ml @ 100 mls/hr Q10H 07/03/20 23:00 07/04/20 22:59 DC 07/05/20 00:35 100 MLS/HR Succinylcholine Chloride (Anectine) 200 mg 1X ONCE 07/04/20 09:30 07/04/20 09:31 DC 07/04/20 09:38 200 MG Throat Lozenges (Cepacol Sore Throat Lozenge) 1 lety PRN Q2HRS PRN 07/04/20 01:15 Vecuronium [place] 50 mg/ Miscellaneous 50 ml @ 4.094 mls/ hr CONT PRN 07/12/20 14:45 07/22/20 09:34 DC 07/18/20 01:56 7.5 MLS/HR Vecuronium [place] (Norcuron Bolus) 6 mg PRN Q6HRS PRN 07/22/20 12:00 07/22/20 12:02 6 MG Vitamin D (Vitamin D3) 5,000 unit DAILY 07/05/20 09:00 07/23/20 08:20 5,000 UNIT Zinc Sulfate (Orazinc) 220 mg DAILY 07/05/20 09:00 07/23/20 08:20 220 MG Labs: Lab Laboratory Tests Test 07/22/20 14:42 07/22/20 17:42 07/23/20 05:40 07/23/20 07:55 Glucose (Fingerstick) 239 mg/dL (70-99) 140 mg/dL (70-99) White Blood Count 15.0 x10^3/uL (4.0-11.0) Red Blood Count 3.54 x10^6/uL (4.30-5.70) Hemoglobin 11.7 g/dL (13.0-17.5) Hematocrit 35.4 % (39.0-53.0) Mean Corpuscular Volume 100 fL (79-100) Mean Corpuscular Hemoglobin 33 pg (25-35) Mean Corpuscular Hemoglobin Concent 33 g/dL (31-37) Red Cell Distribution Width 14.1 % (11.5-14.5) Platelet Count 160 x10^3/uL (140-400) Neutrophils (%) (Auto) 91 % (31-73) Lymphocytes (%) (Auto) 6 % (24-48) Monocytes (%) (Auto) 2 % (0-9) Eosinophils (%) (Auto) 1 % (0-3) Basophils (%) (Auto) 0 % (0-3) Neutrophils # (Auto) 13.6 x10^3/uL (1.8-7.7) Lymphocytes # (Auto) 0.9 x10^3/uL (1.0-4.8) Monocytes # (Auto) 0.3 x10^3/uL (0.0-1.1) Eosinophils # (Auto) 0.1 x10^3/uL (0.0-0.7) Basophils # (Auto) 0.0 x10^3/uL (0.0-0.2) Sodium Level 136 mmol/L (136-145) Potassium Level 3.6 mmol/L (3.5-5.1) Chloride Level 97 mmol/L (98-107) Carbon Dioxide Level 32 mmol/L (21-32) Anion Gap 7 (6-14) Blood Urea Nitrogen 19 mg/dL (8-26) Creatinine 0.6 mg/dL (0.7-1.3) Estimated GFR (Cockcroft-Gault) 142.6 Glucose Level 142 mg/dL (70-99) Calcium Level 8.0 mg/dL (8.5-10.1) O2 Saturation 93 % (92-99) Arterial Blood pH 7.50 (7.35-7.45) Arterial Blood pCO2 at Patient Temp 41 mmHg (35-46) Arterial Blood pO2 at Patient Temp 66 mmHg (75-108) Arterial Blood HCO3 31 mmol/L (21-28) Arterial Blood Base Excess 7 mmol/L (-3-3) FiO2 50 Test 07/23/20 11:17 Glucose (Fingerstick) 184 mg/dL (70-99) Objective: Assessment: Fever likely secondary pneumonia versus other infection Leukocytosis COVID-19 positive. Acute hypoxic respiratory failure/ARDS /pneumonia Bilateral pulmonary emboli. Hypertension. Plan: Plan of Care Start Zosyn Status post steroids Status post remdesivir Blood culture, UA and urine culture Monitor labs and cultures d/w JAMI LUCAS MD Jul 23, 2020 11:40
--- NOTE | 2020-07-23 12:58 | NUR ---
SS following up with discharge planning. SS reviewed pt chart and discussed with pt RN. Pt is currently on the vent at 55%. COVID19 positive. Attempting to decrease propofol and versed. Per Dr. Mane, possible CPAP trial once FI02 is at 45%. Pt on tube feeds. Self pay. SS will continue to follow for discharge planning.
[2020-07-23 22:08] LABS: BILIRUBIN,URINE SMALL (NEG); CLARITY,URINE CLOUDY; NITRITE,URINE POSITIVE (NEG); PH,URINE 5.5 (<5.0-8.0); PROTEIN,URINE 100 mg/dL (NEG-TRACE)
[2020-07-23 22:13] LABS: COLOR,URINE AMBER
[2020-07-23 22:15] LABS: RBC,URINE TNTC /HPF (0-2)
[2020-07-23 22:16] LABS: AMORPHOUS SEDIMENT,UR PRESENT /HPF; BACTERIA,URINE MANY /HPF (0-FEW); GRANULAR CASTS,URINE OCCASIONAL /HPF
[2020-07-24] VITALS (23 sets, daily range): BP systolic 80–116; BP diastolic 51–70
[2020-07-24] MEDS: fentaNYL HIGH DOSE PCA 55 ML IV PRN ×2 (01:09→13:40)
[2020-07-24] MEDS: ACETAMINOPHEN 650 MG/20.3 ML SOLUTION. PEG PRN (03:01)
[2020-07-24] MEDS: MIDAZOLAM 100mg/100ml NS BAG 100 ML IV PRN ×3 (04:22→20:48)
[2020-07-24] MEDS: PROPOFOL 100 ML IV PRN ×4 (04:25→17:05)
[2020-07-24] MEDS: ASCORBIC ACID 500 MG TABLET PO SCH ×3 (05:23→17:24)
[2020-07-24] MEDS: INSULIN LISPRO 300 UNITS/3 ML VIAL. SQ SCH ×3 (05:35→17:33)
[2020-07-24 05:49] LABS: BASO % 0 % (0-3); EOS # 0.3 x10^3/uL (0.0-0.7); EOS % 1 % (0-3); HEMATOCRIT 37.8 % (39.0-53.0); HEMOGLOBIN 12.7 g/dL (13.0-17.5); LYMPH # 1.3 x10^3/uL (1.0-4.8); LYMPH % 6 % (24-48); MEAN CORPUSCULAR HEMOGLOBIN 34 pg (25-35); MEAN CORPUSCULAR HGB CONC 34 g/dL (31-37); MEAN CORPUSCULAR VOLUME 100 fL (79-100); MONO # 0.4 x10^3/uL (0.0-1.1); MONO % 2 % (0-9); NEUT # 19.6 x10^3/uL (1.8-7.7); NEUT % 90 % (31-73); PLATELET COUNT 169 x10^3/uL (140-400); RED BLOOD COUNT 3.78 x10^6/uL (4.30-5.70); RED CELL DISTRIBUTION WIDTH 14.5 % (11.5-14.5); WHITE BLOOD COUNT 21.6 x10^3/uL (4.0-11.0)
[2020-07-24 06:11] LABS: ALBUMIN 1.8 g/dL (3.4-5.0); ALBUMIN/GLOBULIN RATIO 0.5 (1.0-1.7); CREATININE 0.4 mg/dL (0.7-1.3); GFR 227.7; POTASSIUM 3.4 mmol/L (3.5-5.1); TOTAL BILIRUBIN 0.6 mg/dL (0.2-1.0); TOTAL PROTEIN 5.4 g/dL (6.4-8.2)
[2020-07-24 06:38] LABS: % BANDS 7 % (0-9); % EOS 1 % (0-5); % LYMPHS 5 % (24-48); % MONOS 1 % (0-10); % SEGS 86 % (35-66); PLT ESTIMATE ADEQUATE (ADEQUATE)
[2020-07-24 06:39] LABS: TOXIC VACUOLATION PRESENT
--- NOTE | 2020-07-24 08:24 | PDOC ---
PULMONARY PROGRESS NOTES DATE: 07/24/20 TIME: 08:24 Subjective PT. remains on vent support , 50% FiO2 and a PEEP of 6 hypotension overnight and this am no concerns from nursing Vitals Vital Signs Date Time Temp Pulse Resp B/P (MAP) Pulse Ox O2 Delivery O2 Flow Rate FiO2 07/24/20 07:00 98.7 80 34 109/70 (83) 100 Ventilator 98.7 Comments Patient seen during visual exam performed Intubated/sedated RRR no Accessory muscle use No obvious rash or edema Lungs: Other (orally intubated, clear ) Labs Laboratory Tests Test 07/22/20 08:25 07/22/20 14:42 07/22/20 17:42 07/23/20 05:40 O2 Saturation 94 % (92-99) Arterial Blood pH 7.44 (7.35-7.45) Arterial Blood pCO2 at Patient Temp 49 mmHg (35-46) Arterial Blood pO2 at Patient Temp 72 mmHg (75-108) Arterial Blood HCO3 33 mmol/L (21-28) Arterial Blood Base Excess 8 mmol/L (-3-3) FiO2 55% Glucose (Fingerstick) 239 mg/dL (70-99) 140 mg/dL (70-99) White Blood Count 15.0 x10^3/uL (4.0-11.0) Red Blood Count 3.54 x10^6/uL (4.30-5.70) Hemoglobin 11.7 g/dL (13.0-17.5) Hematocrit 35.4 % (39.0-53.0) Mean Corpuscular Volume 100 fL (79-100) Mean Corpuscular Hemoglobin 33 pg (25-35) Mean Corpuscular Hemoglobin Concent 33 g/dL (31-37) Red Cell Distribution Width 14.1 % (11.5-14.5) Platelet Count 160 x10^3/uL (140-400) Neutrophils (%) (Auto) 91 % (31-73) Lymphocytes (%) (Auto) 6 % (24-48) Monocytes (%) (Auto) 2 % (0-9) Eosinophils (%) (Auto) 1 % (0-3) Basophils (%) (Auto) 0 % (0-3) Neutrophils # (Auto) 13.6 x10^3/uL (1.8-7.7) Lymphocytes # (Auto) 0.9 x10^3/uL (1.0-4.8) Monocytes # (Auto) 0.3 x10^3/uL (0.0-1.1) Eosinophils # (Auto) 0.1 x10^3/uL (0.0-0.7) Basophils # (Auto) 0.0 x10^3/uL (0.0-0.2) Sodium Level 136 mmol/L (136-145) Potassium Level 3.6 mmol/L (3.5-5.1) Chloride Level 97 mmol/L (98-107) Carbon Dioxide Level 32 mmol/L (21-32) Anion Gap 7 (6-14) Blood Urea Nitrogen 19 mg/dL (8-26) Creatinine 0.6 mg/dL (0.7-1.3) Estimated GFR (Cockcroft-Gault) 142.6 Glucose Level 142 mg/dL (70-99) Calcium Level 8.0 mg/dL (8.5-10.1) Test 07/23/20 07:55 07/23/20 11:17 07/23/20 17:32 07/23/20 21:00 O2 Saturation 93 % (92-99) Arterial Blood pH 7.50 (7.35-7.45) Arterial Blood pCO2 at Patient Temp 41 mmHg (35-46) Arterial Blood pO2 at Patient Temp 66 mmHg (75-108) Arterial Blood HCO3 31 mmol/L (21-28) Arterial Blood Base Excess 7 mmol/L (-3-3) FiO2 50 Glucose (Fingerstick) 184 mg/dL (70-99) 143 mg/dL (70-99) Urine Collection Type Unknown Urine Color [place] Urine Clarity Cloudy Urine pH 5.5 (<5.0-8.0) Urine Specific [place] >=1.030 (1.000-1.030) Urine Protein 100 mg/dL (NEG-TRACE) Urine Glucose (UA) Negative mg/dL (NEG) Urine Ketones (Stick) Trace mg/dL (NEG) Urine Blood Large (NEG) Urine Nitrite Positive (NEG) Urine Bilirubin Small (NEG) Urine Urobilinogen Dipstick 4.0 mg/dL (0.2 mg/dL) Urine Leukocyte Esterase Moderate (NEG) Urine RBC Tntc /HPF (0-2) Urine WBC 11-20 /HPF (0-4) Urine Squamous Epithelial Cells Occ /LPF Urine Amorphous Sediment Present /HPF Urine Bacteria Many /HPF (0-FEW) Urine Granular Casts Occasional /HPF Urine Mucus Mod /LPF Test 07/23/20 23:49 07/24/20 05:20 07/24/20 05:28 Glucose (Fingerstick) 119 mg/dL (70-99) 222 mg/dL (70-99) White Blood Count 21.6 x10^3/uL (4.0-11.0) Red Blood Count 3.78 x10^6/uL (4.30-5.70) Hemoglobin 12.7 g/dL (13.0-17.5) Hematocrit 37.8 % (39.0-53.0) Mean Corpuscular Volume 100 fL (79-100) Mean Corpuscular Hemoglobin 34 pg (25-35) Mean Corpuscular Hemoglobin Concent 34 g/dL (31-37) Red Cell Distribution Width 14.5 % (11.5-14.5) Platelet Count 169 x10^3/uL (140-400) Neutrophils (%) (Auto) 90 % (31-73) Lymphocytes (%) (Auto) 6 % (24-48) Monocytes (%) (Auto) 2 % (0-9) Eosinophils (%) (Auto) 1 % (0-3) Basophils (%) (Auto) 0 % (0-3) Neutrophils # (Auto) 19.6 x10^3/uL (1.8-7.7) Lymphocytes # (Auto) 1.3 x10^3/uL (1.0-4.8) Monocytes # (Auto) 0.4 x10^3/uL (0.0-1.1) Eosinophils # (Auto) 0.3 x10^3/uL (0.0-0.7) Basophils # (Auto) 0.0 x10^3/uL (0.0-0.2) Segmented Neutrophils % 86 % (35-66) Band Neutrophils % 7 % (0-9) Lymphocytes % 5 % (24-48) Monocytes % 1 % (0-10) Eosinophils % 1 % (0-5) Toxic Vacuolation Present Dohle Bodies Present Platelet Estimate Adequate (ADEQUATE) Sodium Level 133 mmol/L (136-145) Potassium Level 3.4 mmol/L (3.5-5.1) Chloride Level 95 mmol/L (98-107) Carbon Dioxide Level 32 mmol/L (21-32) Anion Gap 6 (6-14) Blood Urea Nitrogen 13 mg/dL (8-26) Creatinine 0.4 mg/dL (0.7-1.3) Estimated GFR (Cockcroft-Gault) 227.7 BUN/Creatinine Ratio 33 (6-20) Glucose Level 151 mg/dL (70-99) Calcium Level 8.0 mg/dL (8.5-10.1) Total Bilirubin 0.6 mg/dL (0.2-1.0) Aspartate Amino Transf (AST/SGOT) 15 U/L (15-37) Alanine Aminotransferase (ALT/SGPT) 42 U/L (16-63) Alkaline Phosphatase 104 U/L (46-116) Total Protein 5.4 g/dL (6.4-8.2) Albumin 1.8 g/dL (3.4-5.0) Albumin/Globulin Ratio 0.5 (1.0-1.7) Laboratory Tests Test 07/23/20 11:17 07/23/20 17:32 07/23/20 21:00 07/23/20 23:49 Glucose (Fingerstick) 184 mg/dL (70-99) 143 mg/dL (70-99) 119 mg/dL (70-99) Urine Collection Type Unknown Urine Color [place] Urine Clarity Cloudy Urine pH 5.5 (<5.0-8.0) Urine Specific [place] >=1.030 (1.000-1.030) Urine Protein 100 mg/dL (NEG-TRACE) Urine Glucose (UA) Negative mg/dL (NEG) Urine Ketones (Stick) Trace mg/dL (NEG) Urine Blood Large (NEG) Urine Nitrite Positive (NEG) Urine Bilirubin Small (NEG) Urine Urobilinogen Dipstick 4.0 mg/dL (0.2 mg/dL) Urine Leukocyte Esterase Moderate (NEG) Urine RBC Tntc /HPF (0-2) Urine WBC 11-20 /HPF (0-4) Urine Squamous Epithelial Cells Occ /LPF Urine Amorphous Sediment Present /HPF Urine Bacteria Many /HPF (0-FEW) Urine Granular Casts Occasional /HPF Urine Mucus Mod /LPF Test 07/24/20 05:20 121/20 05:28 White Blood Count 21.6 x10^3/uL (4.0-11.0) Red Blood Count 3.78 x10^6/uL (4.30-5.70) Hemoglobin 12.7 g/dL (13.0-17.5) Hematocrit 37.8 % (39.0-53.0) Mean Corpuscular Volume 100 fL (79-100) Mean Corpuscular Hemoglobin 34 pg (25-35) Mean Corpuscular Hemoglobin Concent 34 g/dL (31-37) Red Cell Distribution Width 14.5 % (11.5-14.5) Platelet Count 169 x10^3/uL (140-400) Neutrophils (%) (Auto) 90 % (31-73) Lymphocytes (%) (Auto) 6 % (24-48) Monocytes (%) (Auto) 2 % (0-9) Eosinophils (%) (Auto) 1 % (0-3) Basophils (%) (Auto) 0 % (0-3) Neutrophils # (Auto) 19.6 x10^3/uL (1.8-7.7) Lymphocytes # (Auto) 1.3 x10^3/uL (1.0-4.8) Monocytes # (Auto) 0.4 x10^3/uL (0.0-1.1) Eosinophils # (Auto) 0.3 x10^3/uL (0.0-0.7) Basophils # (Auto) 0.0 x10^3/uL (0.0-0.2) Segmented Neutrophils % 86 % (35-66) Band Neutrophils % 7 % (0-9) Lymphocytes % 5 % (24-48) Monocytes % 1 % (0-10) Eosinophils % 1 % (0-5) Toxic Vacuolation Present Dohle Bodies Present Platelet Estimate Adequate (ADEQUATE) Sodium Level 133 mmol/L (136-145) Potassium Level 3.4 mmol/L (3.5-5.1) Chloride Level 95 mmol/L (98-107) Carbon Dioxide Level 32 mmol/L (21-32) Anion Gap 6 (6-14) Blood Urea Nitrogen 13 mg/dL (8-26) Creatinine 0.4 mg/dL (0.7-1.3) Estimated GFR (Cockcroft-Gault) 227.7 BUN/Creatinine Ratio 33 (6-20) Glucose Level 151 mg/dL (70-99) Calcium Level 8.0 mg/dL (8.5-10.1) Total Bilirubin 0.6 mg/dL (0.2-1.0) Aspartate Amino Transf (AST/SGOT) 15 U/L (15-37) Alanine Aminotransferase (ALT/SGPT) 42 U/L (16-63) Alkaline Phosphatase 104 U/L (46-116) Total Protein 5.4 g/dL (6.4-8.2) Albumin 1.8 g/dL (3.4-5.0) Albumin/Globulin Ratio 0.5 (1.0-1.7) Glucose (Fingerstick) 222 mg/dL (70-99) Comments CXR 07/23 Impression: 1. Increased multifocal pulmonary opacities. Impression . IMPRESSION: 1. Acute hypoxemic respiratory failure. 2. Acute pulmonary embolism with cor pulmonale. 3. Possible COVID-19. 4[address] chest revealing ground glass opacities. 5. Hypertension. 6. History of bronchitis. 7. Elevated troponin. 8. Acute kidney injury. 9. Leukocytosis. 10. Covid-19 positive Plan . Continue current ventilatory support, FiO2 50% and a PEEP of 6, not ready for trail today will proceed with CPAP trial once patient is on 45% FiO2 Follow chest x-ray and ABG, Follow cardiology recommendations Antibiotics per ID-- on zosyn Vasopressors if need for hypotension, keep MAP above 65 has completed full course of remdesivir continue tube feeding for nutritional support DVT/GI prophylaxis, Eliquis/ Protonix Discussed with RN and RT Pt. is FULL CODE Critical Care Time [id number] ALVIN RAMSEY MD Jul 24, 2020 08:24
[2020-07-24] MEDS: PANTOPRAZOLE IV PUSH 40 MG VIAL. IVP SCH (08:32)
[2020-07-24] MEDS: ZINC SULFATE 220 MG CAPSULE. PO SCH (08:33)
[2020-07-24] MEDS: CHOLECALCIFEROL (VITAMIN D3) 5,000 UNIT CAPSULE PO SCH (08:33)
[2020-07-24] MEDS: APIXABAN 5 MG TABLET. PO SCH ×2 (08:33→20:49)
[2020-07-24 08:55] LABS: BASE EXCESS ABG 6 mmol/L (-3-3); HCO3 ABG 32 mmol/L (21-28); PCO2 ABG 51 mmHg (35-46); PO2 ABG 88 mmHg (75-108); SAT O2 ABG 96 % (92-99)
--- NOTE | 2020-07-24 09:01 | PDOC ---
PROGRESS NOTES Date of Service: DATE: 07/24/20 TIME: 09:00 Chief Complaint Chief Complaint IMPRESSION Acute hypoxic respiratory failure requiring VENT SUPPORT COVID-19 Subsegmental bilateral PE Leukocytosis NSTEMI AKA Lactic acidosis Hyponatremia, RESOLVED Plan: Appreciate pulmonology recommendations Continue current ventilatory support, currently on 70% and PEEP of 6, avoid increasing PEEP 2/2 risk of barotrauma Follow chest x-ray and ABG, vent management as per pulmonology Heparin has been transitioned to Xarelto Solu-Medrol 40 mg every 12 hours Appreciate ID recommendationscontinue Remdesivir and empiric antibiotics IV fluids Discussed with RN and SW. Antibiotics per ID-- off ABX, infectious disease has signed off, increasing leukocytosis has completed full course of remdesivir continue tube feeding for nutritional support 33 MIN CC TIME History of Present Illness History of Present Illness t max 102 f fio2 50% 07/21/2020 Patient no acute events reported overnight. Patient continues to require a lot of support from vent. Discussed with RN 09/19/2019 Patient continues to be pretty much the same , fio2 is at 70%, heparin 07/19/2020 Patient hypotensive today, we will follow recommendations from critical health care technician. Vent management as per [facility] consultant, no other complaints. 07/18/2020 Patient with no acute events reported overnight, fio2 is now at 75% PEEP of 6, Vent management as per pulmonary [facility] consultant slight increase in temperature noted over the lat 24 hours. Will continue to follow 07/17/2020 Patient with no acute events reported overnight, contineus to require an fio2 of 80%, continue with supportive measures. 07/16/2020 Patient with no acute events reported overnight, patient continues to require quite a bit of FiO2 at 80%. Vent management as per [facility] consultant, will place a call to family members after rounding. Discussed with RN 07/15/2020 Patient seen and examined bedside in the ICU. FiO2 80% PEEP of 6.pH 7.56, PCO2 32, PO2 56, HCO3 28. Will adjust respiratory rate accordingly to correct pH.> 50% time spent in patient chart, labs, and imaging review and in discussion with RN and SW 07/14/2020 Patient seen and examined bedside. FiO2 65% and PEEP of 6 on vent. ABG: pH 7.26, PCO2 77, PO2 114, HCO3 34. We will adjust respiratory rate or tidal volume to titrate pH.> 50% time spent in patient chart, labs, and imaging review and in discussion with RN and JAVIER 07/13/2020 No acute events overnight. Patient examined bedside sedated and intubated. FiO2 70% PEEP of 6. Improved ABGs.> 50% time spent in patient chart, labs, and imaging review and in discussion with RN and JAVIER 07/12/2020 Patient seen and examined in the ICU. Sedated and intubated. FiO2 65, PEEP of 8 with improved oxygenation. pH 7.4, PCO2 48, PO2 94, HCO3 30. +500 cc fluid balance.> 50% time spent in patient chart, labs, and imaging review and in discussion with RN and JAVIER 07/11/2020 Patient seen and examined bedside in the ICU. Patient continues to be intubated and sedated. FiO2 75%, PEEP of 10. pH 7.40, PCO2 44, PO2 is 135, HCO3 26. Can likely decrease FiO2 due to improved oxygenation. +173 cc in the past 24 hours 07/10/2020 Patient seen and examined bedside in ICU. Patient is intubated and sedated. FiO2 90%, PEEP of 10, respiratory rate of 30. ABG: pH is 7.41, PCO2 42, PO2 113, HCO3 26. 07/09/2020 Patient seen and examined in the ICU. Intubated and sedated. Vent settings FiO2 90%, PEEP of 10, respiratory rate of 30. 07/05: Patient seen in ICU, still intubated and sedated. COVID-19 pending. Patient remains on heparin infusion. Discussed with RN, will try to have central line placed per anesthesia. 07/06: Patient seen in ICU. Still FiO2 100% on vent and sedated. COVID-19 positive. Continue heparin infusion, Zosyn, steroids. 07/07: Covid positive patient seen in ICU. On vent with FiO2 100%, PEEP 10. Continue remdesivir, steroids, Zosyn. Continue to monitor 07/08: Patient seen in Covid ICU. Still on vent with FiO2 100%, PEEP 10. Afebrile. No acute events overnight. Continue steroids, antibiotics, and re mdesivir. Patient is 49-year-old male with past medical history of hypertension, who presents to the ED with complaints of worsening shortness of breath over the past 5 days. Associated sore throat, fatigue, and generalized weakness. Patient was reportedly tested for COVID-19 last Thursday, but he had negative test results. His symptoms acutely worsened yesterday. Upon arrival to the ER his oxygen saturation was 60% on room air. He was placed on BiPAP and admitted to the ICU. Patient was subsequently intubated due to worsening respiratory failure. Vitals Vitals Vital Signs Date Time Temp Pulse Resp B/P (MAP) Pulse Ox O2 Delivery O2 Flow Rate FiO2 07/24/20 08:00 Mechanical Ventilator 07/24/20 08:00 97.9 77 22 84/54 (64) 100 97.9 Physical Exam Physical Exam General intubated/sedated HEENT normocephalic atraumatic, OGT/ETT present LUNGS: Coarse breath sounds anteriorly HEART: S1-S2 no murmurs ABDOMEN: Nondistended, soft bowel sounds present Fernandez in place SKIN: No generalized rash Right upper extremity PICC line clean Neuro unable to assess Psych unable to assess General: Other (Sedated and intubated) Heart: Regular rate (SR/ST) Lungs: Other (orally intubated, clear ) Abdomen: Other (Nondistended) Extremities: No clubbing, No cyanosis Skin: No rashes, No breakdown Labs LABS SPEC #: [id number] ROBE: 07/03/20 STATUS: COMP REQ #: [id number] RECD: 07/03/20 [facility] DR: YARITZA SMITH DO SOURCE: BLOOD ENTR: 07/03/20 [facility] : SPDESAlexys: ORDERED: BCULT Procedure Result BLOOD CULTURE Final NO GROWTH AFTER 5 DAYS -- Laboratory Tests Test 07/23/20 11:17 07/23/20 17:32 07/23/20 21:00 07/23/20 23:49 Glucose (Fingerstick) 184 mg/dL (70-99) 143 mg/dL (70-99) 119 mg/dL (70-99) Urine Collection Type Unknown Urine Color Saumya Urine Clarity Cloudy Urine pH 5.5 (<5.0-8.0) Urine Specific Vernal >=1.030 (1.000-1.030) Urine Protein 100 mg/dL (NEG-TRACE) Urine Glucose (UA) Negative mg/dL (NEG) Urine Ketones (Stick) Trace mg/dL (NEG) Urine Blood Large (NEG) Urine Nitrite Positive (NEG) Urine Bilirubin Small (NEG) Urine Urobilinogen Dipstick 4.0 mg/dL (0.2 mg/dL) Urine Leukocyte Esterase Moderate (NEG) Urine RBC Tntc /HPF (0-2) Urine WBC 11-20 /HPF (0-4) Urine Squamous Epithelial Cells Occ /LPF Urine Amorphous Sediment Present /HPF Urine Bacteria Many /HPF (0-FEW) Urine Granular Casts Occasional /HPF Urine Mucus Mod /LPF Test 07/24/20 05:20 07/24/20 05:28 White Blood Count 21.6 x10^3/uL (4.0-11.0) Red Blood Count 3.78 x10^6/uL (4.30-5.70) Hemoglobin 12.7 g/dL (13.0-17.5) Hematocrit 37.8 % (39.0-53.0) Mean Corpuscular Volume 100 fL (79-100) Mean Corpuscular Hemoglobin 34 pg (25-35) Mean Corpuscular Hemoglobin Concent 34 g/dL (31-37) Red Cell Distribution Width 14.5 % (11.5-14.5) Platelet Count 169 x10^3/uL (140-400) Neutrophils (%) (Auto) 90 % (31-73) Lymphocytes (%) (Auto) 6 % (24-48) Monocytes (%) (Auto) 2 % (0-9) Eosinophils (%) (Auto) 1 % (0-3) Basophils (%) (Auto) 0 % (0-3) Neutrophils # (Auto) 19.6 x10^3/uL (1.8-7.7) Lymphocytes # (Auto) 1.3 x10^3/uL (1.0-4.8) Monocytes # (Auto) 0.4 x10^3/uL (0.0-1.1) Eosinophils # (Auto) 0.3 x10^3/uL (0.0-0.7) Basophils # (Auto) 0.0 x10^3/uL (0.0-0.2) Segmented Neutrophils % 86 % (35-66) Band Neutrophils % 7 % (0-9) Lymphocytes % 5 % (24-48) Monocytes % 1 % (0-10) Eosinophils % 1 % (0-5) Toxic Vacuolation Present Dohle Bodies Present Platelet Estimate Adequate (ADEQUATE) Sodium Level 133 mmol/L (136-145) Potassium Level 3.4 mmol/L (3.5-5.1) Chloride Level 95 mmol/L (98-107) Carbon Dioxide Level 32 mmol/L (21-32) Anion Gap 6 (6-14) Blood Urea Nitrogen 13 mg/dL (8-26) Creatinine 0.4 mg/dL (0.7-1.3) Estimated GFR (Cockcroft-Gault) 227.7 BUN/Creatinine Ratio 33 (6-20) Glucose Level 151 mg/dL (70-99) Calcium Level 8.0 mg/dL (8.5-10.1) Total Bilirubin 0.6 mg/dL (0.2-1.0) Aspartate Amino Transf (AST/SGOT) 15 U/L (15-37) Alanine Aminotransferase (ALT/SGPT) 42 U/L (16-63) Alkaline Phosphatase 104 U/L (46-116) Total Protein 5.4 g/dL (6.4-8.2) Albumin 1.8 g/dL (3.4-5.0) Albumin/Globulin Ratio 0.5 (1.0-1.7) Glucose (Fingerstick) 222 mg/dL (70-99) Assessment and Plan Assessmemt and Plan Problems Medical Problems: (1) Acute respiratory failure with hypoxia Status: Acute (2) PRIYA (acute kidney injury) Status: Acute (3) Elevated troponin I level Status: Acute (4) Pulmonary emboli Status: Acute (5) Suspected COVID-19 virus infection Status: Acute Comment Review of Relevant I have reviewed the following items trino (where applicable) has been applied. Labs Laboratory Tests Test 07/22/20 14:42 07/22/20 17:42 07/23/20 05:40 07/23/20 07:55 Glucose (Fingerstick) 239 mg/dL (70-99) 140 mg/dL (70-99) White Blood Count 15.0 x10^3/uL (4.0-11.0) Red Blood Count 3.54 x10^6/uL (4.30-5.70) Hemoglobin 11.7 g/dL (13.0-17.5) Hematocrit 35.4 % (39.0-53.0) Mean Corpuscular Volume 100 fL (79-100) Mean Corpuscular Hemoglobin 33 pg (25-35) Mean Corpuscular Hemoglobin Concent 33 g/dL (31-37) Red Cell Distribution Width 14.1 % (11.5-14.5) Platelet Count 160 x10^3/uL (140-400) Neutrophils (%) (Auto) 91 % (31-73) Lymphocytes (%) (Auto) 6 % (24-48) Monocytes (%) (Auto) 2 % (0-9) Eosinophils (%) (Auto) 1 % (0-3) Basophils (%) (Auto) 0 % (0-3) Neutrophils # (Auto) 13.6 x10^3/uL (1.8-7.7) Lymphocytes # (Auto) 0.9 x10^3/uL (1.0-4.8) Monocytes # (Auto) 0.3 x10^3/uL (0.0-1.1) Eosinophils # (Auto) 0.1 x10^3/uL (0.0-0.7) Basophils # (Auto) 0.0 x10^3/uL (0.0-0.2) Sodium Level 136 mmol/L (136-145) Potassium Level 3.6 mmol/L (3.5-5.1) Chloride Level 97 mmol/L (98-107) Carbon Dioxide Level 32 mmol/L (21-32) Anion Gap 7 (6-14) Blood Urea Nitrogen 19 mg/dL (8-26) Creatinine 0.6 mg/dL (0.7-1.3) Estimated GFR (Cockcroft-Gault) 142.6 Glucose Level 142 mg/dL (70-99) Calcium Level 8.0 mg/dL (8.5-10.1) O2 Saturation 93 % (92-99) Arterial Blood pH 7.50 (7.35-7.45) Arterial Blood pCO2 at Patient Temp 41 mmHg (35-46) Arterial Blood pO2 at Patient Temp 66 mmHg (75-108) Arterial Blood HCO3 31 mmol/L (21-28) Arterial Blood Base Excess 7 mmol/L (-3-3) FiO2 50 Test 07/23/20 11:17 07/23/20 17:32 07/23/20 21:00 07/23/20 23:49 Glucose (Fingerstick) 184 mg/dL (70-99) 143 mg/dL (70-99) 119 mg/dL (70-99) Urine Collection Type Unknown Urine Color Saumya Urine Clarity Cloudy Urine pH 5.5 (<5.0-8.0) Urine Specific Vernal >=1.030 (1.000-1.030) Urine Protein 100 mg/dL (NEG-TRACE) Urine Glucose (UA) Negative mg/dL (NEG) Urine Ketones (Stick) Trace mg/dL (NEG) Urine Blood Large (NEG) Urine Nitrite Positive (NEG) Urine Bilirubin Small (NEG) Urine Urobilinogen Dipstick 4.0 mg/dL (0.2 mg/dL) Urine Leukocyte Esterase Moderate (NEG) Urine RBC Tntc /HPF (0-2) Urine WBC 11-20 /HPF (0-4) Urine Squamous Epithelial Cells Occ /LPF Urine Amorphous Sediment Present /HPF Urine Bacteria Many /HPF (0-FEW) Urine Granular Casts Occasional /HPF Urine Mucus Mod /LPF Test 07/24/20 05:20 07/24/20 05:28 White Blood Count 21.6 x10^3/uL (4.0-11.0) Red Blood Count 3.78 x10^6/uL (4.30-5.70) Hemoglobin 12.7 g/dL (13.0-17.5) Hematocrit 37.8 % (39.0-53.0) Mean Corpuscular Volume 100 fL (79-100) Mean Corpuscular Hemoglobin 34 pg (25-35) Mean Corpuscular Hemoglobin Concent 34 g/dL (31-37) Red Cell Distribution Width 14.5 % (11.5-14.5) Platelet Count 169 x10^3/uL (140-400) Neutrophils (%) (Auto) 90 % (31-73) Lymphocytes (%) (Auto) 6 % (24-48) Monocytes (%) (Auto) 2 % (0-9) Eosinophils (%) (Auto) 1 % (0-3) Basophils (%) (Auto) 0 % (0-3) Neutrophils # (Auto) 19.6 x10^3/uL (1.8-7.7) Lymphocytes # (Auto) 1.3 x10^3/uL (1.0-4.8) Monocytes # (Auto) 0.4 x10^3/uL (0.0-1.1) Eosinophils # (Auto) 0.3 x10^3/uL (0.0-0.7) Basophils # (Auto) 0.0 x10^3/uL (0.0-0.2) Segmented Neutrophils % 86 % (35-66) Band Neutrophils % 7 % (0-9) Lymphocytes % 5 % (24-48) Monocytes % 1 % (0-10) Eosinophils % 1 % (0-5) Toxic Vacuolation Present Dohle Bodies Present Platelet Estimate Adequate (ADEQUATE) Sodium Level 133 mmol/L (136-145) Potassium Level 3.4 mmol/L (3.5-5.1) Chloride Level 95 mmol/L (98-107) Carbon Dioxide Level 32 mmol/L (21-32) Anion Gap 6 (6-14) Blood Urea Nitrogen 13 mg/dL (8-26) Creatinine 0.4 mg/dL (0.7-1.3) Estimated GFR (Cockcroft-Gault) 227.7 BUN/Creatinine Ratio 33 (6-20) Glucose Level 151 mg/dL (70-99) Calcium Level 8.0 mg/dL (8.5-10.1) Total Bilirubin 0.6 mg/dL (0.2-1.0) Aspartate Amino Transf (AST/SGOT) 15 U/L (15-37) Alanine Aminotransferase (ALT/SGPT) 42 U/L (16-63) Alkaline Phosphatase 104 U/L (46-116) Total Protein 5.4 g/dL (6.4-8.2) Albumin 1.8 g/dL (3.4-5.0) Albumin/Globulin Ratio 0.5 (1.0-1.7) Glucose (Fingerstick) 222 mg/dL (70-99) Laboratory Tests Test 07/23/20 11:17 07/23/20 17:32 07/23/20 21:00 07/23/20 23:49 Glucose (Fingerstick) 184 mg/dL (70-99) 143 mg/dL (70-99) 119 mg/dL (70-99) Urine Collection Type Unknown Urine Color Saumya Urine Clarity Cloudy Urine pH 5.5 (<5.0-8.0) Urine Specific Vernal >=1.030 (1.000-1.030) Urine Protein 100 mg/dL (NEG-TRACE) Urine Glucose (UA) Negative mg/dL (NEG) Urine Ketones (Stick) Trace mg/dL (NEG) Urine Blood Large (NEG) Urine Nitrite Positive (NEG) Urine Bilirubin Small (NEG) Urine Urobilinogen Dipstick 4.0 mg/dL (0.2 mg/dL) Urine Leukocyte Esterase Moderate (NEG) Urine RBC Tntc /HPF (0-2) Urine WBC 11-20 /HPF (0-4) Urine Squamous Epithelial Cells Occ /LPF Urine Amorphous Sediment Present /HPF Urine Bacteria Many /HPF (0-FEW) Urine Granular Casts Occasional /HPF Urine Mucus Mod /LPF Test 07/24/20 05:20 07/24/20 05:28 White Blood Count 21.6 x10^3/uL (4.0-11.0) Red Blood Count 3.78 x10^6/uL (4.30-5.70) Hemoglobin 12.7 g/dL (13.0-17.5) Hematocrit 37.8 % (39.0-53.0) Mean Corpuscular Volume 100 fL (79-100) Mean Corpuscular Hemoglobin 34 pg (25-35) Mean Corpuscular Hemoglobin Concent 34 g/dL (31-37) Red Cell Distribution Width 14.5 % (11.5-14.5) Platelet Count 169 x10^3/uL (140-400) Neutrophils (%) (Auto) 90 % (31-73) Lymphocytes (%) (Auto) 6 % (24-48) Monocytes (%) (Auto) 2 % (0-9) Eosinophils (%) (Auto) 1 % (0-3) Basophils (%) (Auto) 0 % (0-3) Neutrophils # (Auto) 19.6 x10^3/uL (1.8-7.7) Lymphocytes # (Auto) 1.3 x10^3/uL (1.0-4.8) Monocytes # (Auto) 0.4 x10^3/uL (0.0-1.1) Eosinophils # (Auto) 0.3 x10^3/uL (0.0-0.7) Basophils # (Auto) 0.0 x10^3/uL (0.0-0.2) Segmented Neutrophils % 86 % (35-66) Band Neutrophils % 7 % (0-9) Lymphocytes % 5 % (24-48) Monocytes % 1 % (0-10) Eosinophils % 1 % (0-5) Toxic Vacuolation Present Dohle Bodies Present Platelet Estimate Adequate (ADEQUATE) Sodium Level 133 mmol/L (136-145) Potassium Level 3.4 mmol/L (3.5-5.1) Chloride Level 95 mmol/L (98-107) Carbon Dioxide Level 32 mmol/L (21-32) Anion Gap 6 (6-14) Blood Urea Nitrogen 13 mg/dL (8-26) Creatinine 0.4 mg/dL (0.7-1.3) Estimated GFR (Cockcroft-Gault) 227.7 BUN/Creatinine Ratio 33 (6-20) Glucose Level 151 mg/dL (70-99) Calcium Level 8.0 mg/dL (8.5-10.1) Total Bilirubin 0.6 mg/dL (0.2-1.0) Aspartate Amino Transf (AST/SGOT) 15 U/L (15-37) Alanine Aminotransferase (ALT/SGPT) 42 U/L (16-63) Alkaline Phosphatase 104 U/L (46-116) Total Protein 5.4 g/dL (6.4-8.2) Albumin 1.8 g/dL (3.4-5.0) Albumin/Globulin Ratio 0.5 (1.0-1.7) Glucose (Fingerstick) 222 mg/dL (70-99) Microbiology 07/03/20 Blood Culture - Final, Complete NO GROWTH AFTER 5 DAYS Medications Current Medications Ceftriaxone Sodium (Rocephin) 1 gm 1X ONCE IVP Last administered on 07/03/20at 20:11; Start 07/03/20 at 19:15; Stop 07/03/20 at 19:19; Status DC Azithromycin (Zithromax) 500 mg 1X ONCE PO Last administered on 07/03/20at 20:11; Start 07/03/20 at 19:15; Stop 07/03/20 at 19:19; Status DC Sodium Chloride 1,000 ml @ 1,000 mls/hr 1X ONCE IV Last administered on 07/03/20at 20:11; Start 07/03/20 at 19:15; Stop 07/03/20 at 20:14; Status DC Sodium Chloride 1,000 ml @ 1,000 mls/hr 1X ONCE IV Last administered on 07/03/20at 19:15; Start 07/03/20 at 19:15; Stop 07/03/20 at 20:14; Status DC Iohexol (Omnipaque 350 Mg/ml) 90 ml 1X ONCE IV Last administered on 07/03/20at 21:00; Start 07/03/20 at 20:45; Stop 07/03/20 at 20:46; Status DC Info (CONTRAST GIVEN -- Rx MONITORING) 1 each PRN DAILY PRN MC SEE COMMENTS; Start 07/03/20 at 20:45; Stop 07/05/20 at 20:44; Status DC Enoxaparin Sodium (Lovenox 150mg Syringe) 150 mg 1X ONCE SQ Last administered on 07/03/20at 22:45; Start 07/03/20 at 23:00; Stop 07/03/20 at 23:01; Status DC Ondansetron HCl (Zofran) 4 mg PRN Q8HRS PRN IV NAUSEA/VOMITING 1ST CHOICE; Start 07/03/20 at 22:30; Stop 07/04/20 at 22:29; Status DC Morphine Sulfate (Morphine Sulfate) 2 mg PRN Q2HR PRN IV SEVERE PAIN 7-10; Start 07/03/20 at 22:30; Stop 07/04/20 at 22:29; Status DC Sodium Chloride 1,000 ml @ 100 mls/hr Q10H IV Last administered on 07/05/20at 00:35; Start 07/03/20 at 23:00; Stop 07/04/20 at 22:59; Status DC Acetaminophen (Tylenol) 650 mg PRN Q4HRS PRN PO FEVER > 100.3'F; Start 07/03/20 at 22:30; Stop 07/04/20 at 22:29; Status DC Throat Lozenges (Cepacol Sore Throat Lozenge) 1 lety PRN Q2HRS PRN PO SORE THROAT; Start 07/04/20 at 01:15 Furosemide (Lasix) 20 mg 1X ONCE IVP Last administered on 07/04/20at 10:10; Start 07/04/20 at 10:00; Stop 07/04/20 at 10:01; Status DC Succinylcholine Chloride (Anectine) 200 mg STK-MED ONCE .ROUTE ; Start 07/04/20 at 09:09; Stop 07/04/20 at 09:09; Status DC Etomidate (Amidate) 20 mg STK-MED ONCE IV ; Start 07/04/20 at 09:09; Stop 07/04/20 at 09:09; Status DC Fentanyl Citrate 30 ml @ 0 mls/hr CONT PRN IV SEE PROTOCOL Last administered on 07/04/20at 09:36; Start 07/04/20 at 09:15; Stop 07/04/20 at 14:36; Status DC Propofol 100 ml @ 0 mls/hr CONT PRN IV SEE PROTOCOL Last administered on 07/24/20at 07:09; Start 07/04/20 at 09:15 Midazolam HCl 100 ml @ 0 mls/hr CONT PRN IV SEE PROTOCOL Last administered on 07/24/20at 04:22; Start 07/04/20 at 09:15 Midazolam HCl (Versed) 5 mg 1X STAT IV Last administered on 07/04/20at 09:41; Start 07/04/20 at 09:21; Stop 07/04/20 at 09:22; Status DC Midazolam HCl (Versed) 5 mg STK-MED ONCE .ROUTE ; Start 07/04/20 at 09:21; Stop 07/04/20 at 09:21; Status DC Etomidate (Amidate) 10 mg 1X ONCE IV Last administered on 07/04/20at 09:37; Start 07/04/20 at 09:30; Stop 07/04/20 at 09:31; Status DC Succinylcholine Chloride (Anectine) 200 mg 1X ONCE IV Last administered on 07/04/20at 09:38; Start 07/04/20 at 09:30; Stop 07/04/20 at 09:31; Status DC Vecuronium [place] (Norcuron Bolus) 6 mg 1X ONCE IV Last administered on 07/04/20at 09:38; Start 07/04/20 at 09:45; Stop 07/04/20 at 09:46; Status DC Vecuronium [place] (Norcuron Bolus) 10 mg STK-MED ONCE IV ; Start 07/04/20 at 09:33; Stop 07/04/20 at 09:33; Status DC Pantoprazole Sodium (PROTONIX VIAL for IV PUSH) 40 mg DAILYAC IVP Last administered on 07/24/20at 08:32; Start 07/04/20 at 12:30 Methylprednisolone Sodium Succinate (SOLU-Medrol 40MG VIAL) 40 mg Q8HRS IV Last administered on 07/11/20at 05:41; Start 07/04/20 at 14:00; Stop 07/11/20 at 11:36; Status DC Piperacillin Sod/ Tazobactam Sod (Zosyn Per Pharmacy) 1 each PRN DAILY PRN MC SEE COMMENTS; Start 07/04/20 at 12:00; Stop 07/18/20 at 07:46; Status DC Heparin Sodium/ Dextrose 250 ml @ 0 mls/hr CONT PRN IV PER PROTOCOL Last administered on 07/15/20at 02:09; Start 07/04/20 at 12:00; Stop 07/16/20 at 12:09; Status DC Heparin Sodium (Porcine) (Heparin Sodium) 2,500 unit PRN Q6HRS PRN IV FOR UFH LEVEL LESS THAN 0.2 Last administered on 07/15/20at 09:19; Start 07/04/20 at 12:00; Stop 07/16/20 at 12:09; Status DC Heparin Sodium (Porcine) (Heparin Sodium) 1,250 unit PRN Q6HRS PRN IV FOR UFH LEVEL 0.2 - 0.29 Last administered on 07/05/20at 18:27; Start 07/04/20 at 12:00; Stop 07/16/20 at 12:09; Status DC Piperacillin Sod/ Tazobactam Sod 3.375 gm/Sodium Chloride 50 ml @ 100 mls/hr Q6HRS IV Last administered on 07/17/20at 05:10; Start 07/04/20 at 12:00; Stop 07/17/20 at 11:11; Status DC Zinc Sulfate (Orazinc) 220 mg DAILY PO Last administered on 07/24/20at 08:33; Start 07/05/20 at 09:00 Ascorbic Acid (Vitamin C) 500 mg Q6HRS PO Last administered on 07/24/20at 05:23; Start 07/04/20 at 18:00 Vitamin D (Vitamin D3) 5,000 unit DAILY PO Last administered on 07/24/20at 08:33; Start 07/05/20 at 09:00 Vecuronium [place] (Norcuron Bolus) 6 mg 1X ONCE IV Last administered on 07/04/20at 13:27; Start 07/04/20 at 13:15; Stop 07/04/20 at 13:16; Status DC Norepinephrine Bitartrate 8 mg/ Dextrose 258 ml @ 16.061 mls/ hr CONT PRN IV PER PROTOCOL Last administered on 07/05/20at 00:33; Start 07/04/20 at 13:15; Stop 07/18/20 at 11:01; Status DC Fentanyl Citrate 55 ml @ 0 mls/hr CONT PRN IV SEE PROTOCOL Last administered on 07/24/20at 01:09; Start 07/04/20 at 14:45 Vecuronium [place] (Norcuron Bolus) 6 mg Q4H PRN IV OVERBREATHING VENT/out of sync Last administered on 07/20/20at 12:32; Start 07/04/20 at 16:45; Stop 07/22/20 at 09:34; Status DC Furosemide (Lasix) 40 mg 1X ONCE IVP Last administered on 07/05/20at 14:17; Start 07/05/20 at 13:30; Stop 07/05/20 at 13:31; Status DC Insulin Human Lispro (HumaLOG) 0-5 UNITS Q6HRS SQ Last administered on 07/11/20at 05:42; Start 07/05/20 at 18:00; Stop 07/11/20 at 07:54; Status DC Dextrose (Dextrose 50%-Water Syringe) 12.5 gm PRN Q15MIN PRN IV SEE COMMENTS; Start 07/05/20 at 14:15 Insulin Human Lispro (HumaLOG) 2 units 1X ONCE SQ Last administered on 07/05/20at 14:19; Start 07/05/20 at 14:30; Stop 07/05/20 at 14:31; Status DC Remdesivir 200 mg/ Sodium Chloride 210 ml @ 210 mls/hr 1X ONCE IV Last administered on 07/06/20at 14:51; Start 07/06/20 at 14:30; Stop 07/06/20 at 15:29; Status DC Remdesivir 100 mg/ Sodium Chloride 230 ml @ 460 mls/hr Q24H IV Last administered on 07/10/20at 13:59; Start 07/07/20 at 14:30; Stop 07/10/20 at 14:59; Status DC Insulin Human Lispro (HumaLOG) 0-9 UNITS TIDWMEALS SQ Last administered on 07/12/20at 11:31; Start 07/11/20 at 08:00; Stop 07/13/20 at 10:17; Status DC Methylprednisolone Sodium Succinate (SOLU-Medrol 40MG VIAL) 40 mg DAILY IV Last administered on 07/14/20at 07:57; Start 07/12/20 at 09:00; Stop 07/14/20 at 0 9:26; Status DC Acetaminophen (Tylenol) 650 mg PRN Q6HRS PRN PEG MILD PAIN / TEMP > 100.3'F Last administered on 07/24/20at 03:01; Start 07/12/20 at 12:00 Vecuronium [place] 50 mg/ Miscellaneous 50 ml @ 4.094 mls/ hr CONT PRN IV SEE I/O RECORD Last administered on 07/18/20at 01:56; Start 07/12/20 at 14:45; Stop 07/22/20 at 09:34; Status DC Insulin Human Lispro (HumaLOG) 0-9 UNITS Q6HRS SQ Last administered on 07/24/20at 05:35; Start 07/13/20 at 12:00 Methylprednisolone Sodium Succinate (SOLU-Medrol 40MG VIAL) 40 mg Q12HR IV Last administered on 07/16/20at 09:57; Start 07/14/20 at 21:00; Stop 07/16/20 at 12:10; Status DC Info (Anti-Coagulation Monitoring By Pharmacy) 1 each PRN DAILY PRN MC SEE COMMENTS Last administered on 07/22/20at 10:33; Start 07/16/20 at 08:15 Apixaban (Eliquis) 10 mg BID PO Last administered on 07/22/20at 20:39; Start 07/16/20 at 13:00; Stop 07/22/20 at 21:01; Status DC Methylprednisolone Sodium Succinate (SOLU-Medrol 40MG VIAL) 40 mg DAILY IV Last administered on 07/16/20at 12:22; Start 07/16/20 at 13:00; Stop 07/17/20 at 08:24; Status DC Apixaban (Eliquis) 5 mg BID PO Last administered on 07/24/20at 08:33; Start 07/23/20 at 09:00 Methylprednisolone Sodium Succinate (SOLU-Medrol 40MG VIAL) 40 mg Q12HR IV Last administered on 07/20/20at 07:54; Start 07/17/20 at 09:00; Stop 07/20/20 at 10:20; Status DC Multi-Ingred Cream/Lotion/Oil/ Oint (Artificial Tears Eye Ointment) 1 wenceslao PRN Q1HR PRN OU DRY EYE; Start 07/18/20 at 10:45 Furosemide (Lasix) 40 mg 1X ONCE IVP Last administered on 07/19/20at 00:55; Start 07/19/20 at 00:45; Stop 07/19/20 at 00:46; Status DC Methylprednisolone Sodium Succinate (SOLU-Medrol 40MG VIAL) 40 mg DAILY IV Last administered on 07/22/20at 09:08; Start 07/21/20 at 09:00; Stop 07/22/20 at 09:36; Status DC Lorazepam (Ativan Inj) 2 mg PRN Q1HR PRN IV SEE COMMENTS Last administered on 07/24/20at 06:51; Start 07/21/20 at 12:30 Vecuronium [place] (Norcuron Bolus) 6 mg PRN Q6HRS PRN IV SEDATION Last administered on 07/22/20at 12:02; Start 07/22/20 at 12:00 Vitals/I & O Vital Sign - Last 24 Hours 07/23/20 07/23/20 07/23/20 07/23/20 10:00 11:00 11:42 12:00 Temp 101.0 100.0 101.0 100.0 Pulse 100 97 91 Resp 22 22 B/P (MAP) 101/55 (70) 121/79 (93) 151/92 (111) Pulse Ox 93 94 95 94 O2 Delivery Ventilator Ventilator Ventilator Ventilator 07/23/20 07/23/20 07/23/20 07/23/20 12:00 13:00 14:00 15:00 Temp 99.9 99.8 98.7 99.9 99.8 98.7 Pulse 85 84 89 Resp 22 22 B/P (MAP) 117/73 (88) 113/73 (86) 128/70 (89) Pulse Ox 95 100 97 O2 Delivery Mechanical Ventilator Ventilator Ventilator Ventilator 07/23/20 07/23/20 07/23/20 07/23/20 15:43 15:52 16:00 17:00 Temp 98.6 100.1 98.6 100.1 Pulse 87 95 Resp B/P (MAP) 102/63 (76) 106/67 (80) Pulse Ox 99 100 98 O2 Delivery Mechanical Ventilator Ventilator Ventilator Ventilator 07/23/20 07/23/20 07/23/20 07/23/20 18:00 19:00 20:00 20:00 Temp 100.7 99.8 99.0 100.7 99.8 99.0 Pulse 89 88 86 Resp 22 B/P (MAP) 103/61 (75) 99/61 (74) 103/59 (74) Pulse Ox 99 99 99 O2 Delivery Ventilator Ventilator Mechanical Ventilator Ventilator 07/23/20 07/23/20 07/23/20 07/23/20 20:15 21:00 22:00 23:00 Temp 98.3 98.8 98.9 98.3 98.8 98.9 Pulse 84 82 84 Resp 30 22 22 B/P (MAP) 99/60 (73) 95/62 (73) 97/58 (71) Pulse Ox 99 99 99 98 O2 Delivery Ventilator Ventilator Ventilator Ventilator 07/24/20 07/24/20 07/24/20 07/24/20 00:00 00:00 00:32 01:00 Temp 99.2 100.7 99.2 100.7 Pulse 88 91 Resp 22 22 B/P (MAP) 109/60 (76) 94/54 (67) Pulse Ox 98 100 98 O2 Delivery Ventilator Mechanical Ventilator Ventilator Ventilator 07/24/20 07/24/20 07/24/20 07/24/20 01:09 02:00 03:00 04:00 Temp 101.7 102.2 101.7 102.2 Pulse 98 96 Resp 22 37 22 B/P (MAP) 105/63 (77) 90/51 (64) Pulse Ox 100 100 98 O2 Delivery Ventilator Ventilator Ventilator Mechanical Ventilator 07/24/20 07/24/20 07/24/20 07/24/20 04:00 04:10 05:00 06:00 Temp 100.9 99.8 98.9 100.9 99.8 98.9 Pulse 88 99 93 Resp 28 22 34 B/P (MAP) 80/51 (61) 108/65 (79) 116/65 (82) Pulse Ox 100 99 100 98 O2 Delivery Ventilator Ventilator Ventilator Ventilator 07/24/20 07/24/20 07/24/20 07:00 08:00 08:00 Temp 98.7 97.9 98.7 97.9 Pulse 80 77 Resp 34 22 B/P (MAP) 109/70 (83) 84/54 (64) Pulse Ox 100 100 O2 Delivery Ventilator Ventilator Mechanical Ventilator Intake and Output 07/23/20 07/23/20 07/24/20 15:00 23:00 07:00 Intake Total 755 ml 971 ml 1347 ml Output Total 420 ml 565 ml 485 ml Balance 335 ml 406 ml 862 ml Justicifation of Admission Dx: Justifications for Admission: Justification of Admission Dx: Yes REESE CASEY MD Jul 24, 2020 09:01
--- NOTE | 2020-07-24 09:19 | PDOC ---
Infectious Disease Note Subjective: Subjective Patient sedated /intubated T max 102 .7*F Off pressors Discussed with nursing staff Vital Signs: Vital Signs Vital Signs Date Time Temp Pulse Resp B/P (MAP) Pulse Ox O2 Delivery O2 Flow Rate FiO2 07/24/20 08:00 Mechanical Ventilator 07/24/20 08:00 97.9 77 22 84/54 (64) 100 97.9 Physical Exam: PHYSICAL EXAM General intubated/sedated HEENT normocephalic atraumatic, OGT/ETT present LUNGS: Coarse breath sounds anteriorly HEART: S1-S2 no murmurs ABDOMEN: Nondistended, soft bowel sounds present Fernandez in place SKIN: No generalized rash Right upper extremity PICC line clean Neuro intubated/sedated Medications: Inpatient Meds: Current Medications Medications (Trade) Dose Ordered Sig/Natalee Start Time Stop Time Status Last Admin Dose Admin Acetaminophen (Tylenol) 650 mg PRN Q6HRS PRN 07/12/20 12:00 07/24/20 03:01 650 MG Apixaban (Eliquis) 5 mg BID 07/23/20 09:00 07/24/20 08:33 5 MG Ascorbic Acid (Vitamin C) 500 mg Q6HRS 07/04/20 18:00 07/24/20 05:23 500 MG Azithromycin (Zithromax) 500 mg 1X ONCE 07/03/20 19:15 07/03/20 19:19 DC 07/03/20 20:11 500 MG Ceftriaxone Sodium (Rocephin) 1 gm 1X ONCE 07/03/20 19:15 07/03/20 19:19 DC 07/03/20 20:11 1 GM Dextrose (Dextrose 50%-Water Syringe) 12.5 gm PRN Q15MIN PRN 07/05/20 14:15 Enoxaparin Sodium (Lovenox 150mg Syringe) 150 mg 1X ONCE 07/03/20 23:00 07/03/20 23:01 DC 07/03/20 22:45 150 MG Etomidate (Amidate) 10 mg 1X ONCE 07/04/20 09:30 07/04/20 09:31 DC 07/04/20 09:37 10 MG Fentanyl Citrate 55 ml @ 0 mls/hr CONT PRN 07/04/20 14:45 07/24/20 01:09 3 MLS/HR Furosemide (Lasix) 40 mg 1X ONCE 07/19/20 00:45 07/19/20 00:46 DC 07/19/20 00:55 40 MG Heparin Sodium (Porcine) (Heparin Sodium) 1,250 unit PRN Q6HRS PRN 07/04/20 12:00 07/16/20 12:09 DC 07/05/20 18:27 1,250 UNIT Heparin Sodium/ Dextrose 250 ml @ 0 mls/hr CONT PRN 07/04/20 12:00 07/16/20 12:09 DC 07/15/20 02:09 14.9 MLS/HR Info (Anti-Coagulation Monitoring By Pharmacy) 1 each PRN DAILY PRN 07/16/20 08:15 07/22/20 10:33 1 EACH Info (CONTRAST GIVEN -- Rx MONITORING) 1 each PRN DAILY PRN 07/03/20 20:45 07/05/20 20:44 DC Insulin Human Lispro (HumaLOG) 0-9 UNITS Q6HRS 07/13/20 12:00 07/24/20 05:35 5 UNITS Iohexol (Omnipaque 350 Mg/ml) 90 ml 1X ONCE 07/03/20 20:45 07/03/20 20:46 DC 07/03/20 21:00 90 ML Lorazepam (Ativan Inj) 2 mg PRN Q1HR PRN 07/21/20 12:30 07/24/20 06:51 2 MG Methylprednisolone Sodium Succinate (SOLU-Medrol 40MG VIAL) 40 mg DAILY 07/21/20 09:00 07/22/20 09:36 DC 07/22/20 09:08 40 MG Midazolam HCl (Versed) 5 mg STK-MED ONCE 07/04/20 09:21 07/04/20 09:21 DC Morphine Sulfate (Morphine Sulfate) 2 mg PRN Q2HR PRN 07/03/20 22:30 07/04/20 22:29 DC Multi-Ingred Cream/Lotion/Oil/ Oint (Artificial Tears Eye Ointment) 1 wenceslao PRN Q1HR PRN 07/18/20 10:45 Norepinephrine Bitartrate 8 mg/ Dextrose 258 ml @ 16.061 mls/ hr CONT PRN 07/04/20 13:15 07/18/20 11:01 DC 07/05/20 00:33 28.909 MLS/HR Ondansetron HCl (Zofran) 4 mg PRN Q8HRS PRN 07/03/20 22:30 07/04/20 22:29 DC Pantoprazole Sodium (PROTONIX VIAL for IV PUSH) 40 mg DAILYAC 07/04/20 12:30 07/24/20 08:32 40 MG Piperacillin Sod/ Tazobactam Sod (Zosyn Per Pharmacy) 1 each PRN DAILY PRN 07/04/20 12:00 07/18/20 07:46 DC Piperacillin Sod/ Tazobactam Sod 3.375 gm/Sodium Chloride 50 ml @ 100 mls/hr Q6HRS 07/04/20 12:00 07/17/20 11:11 DC 07/17/20 05:10 100 MLS/HR Propofol 100 ml @ 0 mls/hr CONT PRN 07/04/20 09:15 07/24/20 07:09 24.9 MLS/HR Remdesivir 100 mg/ Sodium Chloride 230 ml @ 460 mls/hr Q24H 07/07/20 14:30 07/10/20 14:59 DC 07/10/20 13:59 460 MLS/HR Remdesivir 200 mg/ Sodium Chloride 210 ml @ 210 mls/hr 1X ONCE 07/06/20 14:30 07/06/20 15:29 DC 07/06/20 14:51 210 MLS/HR Sodium Chloride 1,000 ml @ 100 mls/hr Q10H 07/03/20 23:00 07/04/20 22:59 DC 07/05/20 00:35 100 MLS/HR Succinylcholine Chloride (Anectine) 200 mg 1X ONCE 07/04/20 09:30 07/04/20 09:31 DC 07/04/20 09:38 200 MG Throat Lozenges (Cepacol Sore Throat Lozenge) 1 lety PRN Q2HRS PRN 07/04/20 01:15 Vecuronium [place] 50 mg/ Miscellaneous 50 ml @ 4.094 mls/ hr CONT PRN 07/12/20 14:45 07/22/20 09:34 DC 07/18/20 01:56 7.5 MLS/HR Vecuronium [place] (Norcuron Bolus) 6 mg PRN Q6HRS PRN 07/22/20 12:00 07/22/20 12:02 6 MG Vitamin D (Vitamin D3) 5,000 unit DAILY 07/05/20 09:00 07/24/20 08:33 5,000 UNIT Zinc Sulfate (Orazinc) 220 mg DAILY 07/05/20 09:00 07/24/20 08:33 220 MG Labs: Lab Laboratory Tests Test 07/23/20 11:17 07/23/20 17:32 07/23/20 21:00 07/23/20 23:49 Glucose (Fingerstick) 184 mg/dL (70-99) 143 mg/dL (70-99) 119 mg/dL (70-99) Urine Collection Type Unknown Urine Color [place] Urine Clarity Cloudy Urine pH 5.5 (<5.0-8.0) Urine Specific [place] >=1.030 (1.000-1.030) Urine Protein 100 mg/dL (NEG-TRACE) Urine Glucose (UA) Negative mg/dL (NEG) Urine Ketones (Stick) Trace mg/dL (NEG) Urine Blood Large (NEG) Urine Nitrite Positive (NEG) Urine Bilirubin Small (NEG) Urine Urobilinogen Dipstick 4.0 mg/dL (0.2 mg/dL) Urine Leukocyte Esterase Moderate (NEG) Urine RBC Tntc /HPF (0-2) Urine WBC 11-20 /HPF (0-4) Urine Squamous Epithelial Cells Occ /LPF Urine Amorphous Sediment Present /HPF Urine Bacteria Many /HPF (0-FEW) Urine Granular Casts Occasional /HPF Urine Mucus Mod /LPF Test 07/24/20 05:20 07/24/20 05:28 White Blood Count 21.6 x10^3/uL (4.0-11.0) Red Blood Count 3.78 x10^6/uL (4.30-5.70) Hemoglobin 12.7 g/dL (13.0-17.5) Hematocrit 37.8 % (39.0-53.0) Mean Corpuscular Volume 100 fL (79-100) Mean Corpuscular Hemoglobin 34 pg (25-35) Mean Corpuscular Hemoglobin Concent 34 g/dL (31-37) Red Cell Distribution Width 14.5 % (11.5-14.5) Platelet Count 169 x10^3/uL (140-400) Neutrophils (%) (Auto) 90 % (31-73) Lymphocytes (%) (Auto) 6 % (24-48) Monocytes (%) (Auto) 2 % (0-9) Eosinophils (%) (Auto) 1 % (0-3) Basophils (%) (Auto) 0 % (0-3) Neutrophils # (Auto) 19.6 x10^3/uL (1.8-7.7) Lymphocytes # (Auto) 1.3 x10^3/uL (1.0-4.8) Monocytes # (Auto) 0.4 x10^3/uL (0.0-1.1) Eosinophils # (Auto) 0.3 x10^3/uL (0.0-0.7) Basophils # (Auto) 0.0 x10^3/uL (0.0-0.2) Segmented Neutrophils % 86 % (35-66) Band Neutrophils % 7 % (0-9) Lymphocytes % 5 % (24-48) Monocytes % 1 % (0-10) Eosinophils % 1 % (0-5) Toxic Vacuolation Present Dohle Bodies Present Platelet Estimate Adequate (ADEQUATE) Sodium Level 133 mmol/L (136-145) Potassium Level 3.4 mmol/L (3.5-5.1) Chloride Level 95 mmol/L (98-107) Carbon Dioxide Level 32 mmol/L (21-32) Anion Gap 6 (6-14) Blood Urea Nitrogen 13 mg/dL (8-26) Creatinine 0.4 mg/dL (0.7-1.3) Estimated GFR (Cockcroft-Gault) 227.7 BUN/Creatinine Ratio 33 (6-20) Glucose Level 151 mg/dL (70-99) Calcium Level 8.0 mg/dL (8.5-10.1) Total Bilirubin 0.6 mg/dL (0.2-1.0) Aspartate Amino Transf (AST/SGOT) 15 U/L (15-37) Alanine Aminotransferase (ALT/SGPT) 42 U/L (16-63) Alkaline Phosphatase 104 U/L (46-116) Total Protein 5.4 g/dL (6.4-8.2) Albumin 1.8 g/dL (3.4-5.0) Albumin/Globulin Ratio 0.5 (1.0-1.7) Glucose (Fingerstick) 222 mg/dL (70-99) Objective: Assessment: Fever pattern fluctuates between high fever and low fever below 96 degrees,? Autonomic etiology Leukocytosis COVID-19 positive. Status post remdesivir, steroids Acute hypoxic respiratory failure/ARDS /pneumonia Bilateral pulmonary emboli. Hypertension. Plan: Plan of Care Zosyn Status post steroids Status post remdesivir F/U Blood and urine culture Monitor labs and cultures Critically ill d/w JAMI LUCAS MD Jul 24, 2020 09:19
[2020-07-24] MEDS: PIPERACILLIN/TAZOBACTAM 4.5 GM in IV NORMAL SALINE 100ML 100 ML IV SCH ×2 (11:30→17:32)
--- NOTE | 2020-07-24 13:03 | NUR ---
SS following up with discharge planning. SS reviewed pt chart and discussed with pt RN. Pt is currently on the vent at 50%. COVID19 positive. Self pay. Pt on IV Zosyn. Sedation being weaned. SS will continue to follow for discharge planning.
[2020-07-24] MEDS ORDERED: SODIUM PHOSPHATE 20 MMOL in IV NORMAL SALINE 250ML 250 ML IV ONE (15:30)
[2020-07-24] MEDS ORDERED: POTASSIUM PHOS,M-BASIC-D-BASIC 13.6 MMOL in IV NORMAL SALINE 250ML 250 ML IV SCH (15:30)
[2020-07-24] MEDS ORDERED: POTASSIUM CHLORIDE 20MEQ 100 ML IV SCH ×3 (15:30→16:00)
[2020-07-24] MEDS ORDERED: POTASSIUM CHLORIDE 10MEQ 100 ML IV SCH ×3 (15:30)
[2020-07-24] MEDS ORDERED: SODIUM PHOSPHATE 30 MMOL in IV NORMAL SALINE 250ML 250 ML IV ONE (15:30)
[2020-07-24] MEDS ORDERED: ELECTROLYTE (ICU) PROTOCOL. MC PRN (15:45)
[2020-07-24 21:35] LABS: FIO2 ABG 50
[2020-07-25] VITALS (24 sets, daily range): BP systolic 89–115; BP diastolic 52–74
[2020-07-25] MEDS: PIPERACILLIN/TAZOBACTAM 4.5 GM in IV NORMAL SALINE 100ML 100 ML IV SCH ×5 (01:19→23:56)
[2020-07-25] MEDS: ASCORBIC ACID 500 MG TABLET PO SCH ×5 (01:19→23:56)
[2020-07-25] MEDS: PROPOFOL 100 ML IV PRN ×2 (01:48→13:17)
[2020-07-25 04:51] LABS: BASO % 0 % (0-3); EOS # 0.3 x10^3/uL (0.0-0.7); EOS % 1 % (0-3); HEMATOCRIT 31.9 % (39.0-53.0); HEMOGLOBIN 10.8 g/dL (13.0-17.5); LYMPH # 0.6 x10^3/uL (1.0-4.8); LYMPH % 3 % (24-48); MEAN CORPUSCULAR HEMOGLOBIN 34 pg (25-35); MEAN CORPUSCULAR HGB CONC 34 g/dL (31-37); MEAN CORPUSCULAR VOLUME 99 fL (79-100); MONO # 0.3 x10^3/uL (0.0-1.1); MONO % 2 % (0-9); NEUT # 16.7 x10^3/uL (1.8-7.7); NEUT % 93 % (31-73); PLATELET COUNT 163 x10^3/uL (140-400); RED BLOOD COUNT 3.23 x10^6/uL (4.30-5.70); RED CELL DISTRIBUTION WIDTH 14.3 % (11.5-14.5); WHITE BLOOD COUNT 17.9 x10^3/uL (4.0-11.0)
[2020-07-25 05:02] LABS: ALBUMIN 1.4 g/dL (3.4-5.0); ALBUMIN/GLOBULIN RATIO 0.3 (1.0-1.7); CREATININE 0.4 mg/dL (0.7-1.3); GFR 227.7; POTASSIUM 3.8 mmol/L (3.5-5.1); TOTAL BILIRUBIN 0.7 mg/dL (0.2-1.0); TOTAL PROTEIN 5.6 g/dL (6.4-8.2)
[2020-07-25] MEDS: INSULIN LISPRO 300 UNITS/3 ML VIAL. SQ SCH ×5 (05:32→23:07)
--- NOTE | 2020-07-25 05:59 | PDOC ---
Infectious Disease Note Subjective: Subjective Patient sedated /intubated Discussed with RN Fever pattern improved Vital Signs: Vital Signs Vital Signs Date Time Temp Pulse Resp B/P (MAP) Pulse Ox O2 Delivery O2 Flow Rate FiO2 07/25/20 04:02 100 Ventilator 07/25/20 03:00 94 22 89/52 (64) 07/25/20 00:00 96.4 96.4 Physical Exam: PHYSICAL EXAM General intubated/sedated HEENT normocephalic atraumatic, OGT/ETT present LUNGS: Coarse breath sounds anteriorly HEART: S1-S2 no murmurs ABDOMEN: Nondistended, soft bowel sounds present Fernandez in place SKIN: No generalized rash Right upper extremity PICC line clean Neuro intubated/sedated Medications: Inpatient Meds: Current Medications Medications (Trade) Dose Ordered Sig/Natalee Start Time Stop Time Status Last Admin Dose Admin Acetaminophen (Tylenol) 650 mg PRN Q6HRS PRN 07/12/20 12:00 07/24/20 03:01 650 MG Apixaban (Eliquis) 5 mg BID 07/23/20 09:00 07/24/20 20:49 5 MG Ascorbic Acid (Vitamin C) 500 mg Q6HRS 07/04/20 18:00 07/25/20 01:19 500 MG Azithromycin (Zithromax) 500 mg 1X ONCE 07/03/20 19:15 07/03/20 19:19 DC 07/03/20 20:11 500 MG Ceftriaxone Sodium (Rocephin) 1 gm 1X ONCE 07/03/20 19:15 07/03/20 19:19 DC 07/03/20 20:11 1 GM Dextrose (Dextrose 50%-Water Syringe) 12.5 gm PRN Q15MIN PRN 07/05/20 14:15 Enoxaparin Sodium (Lovenox 150mg Syringe) 150 mg 1X ONCE 07/03/20 23:00 07/03/20 23:01 DC 07/03/20 22:45 150 MG Etomidate (Amidate) 10 mg 1X ONCE 07/04/20 09:30 07/04/20 09:31 DC 07/04/20 09:37 10 MG Fentanyl Citrate 55 ml @ 0 mls/hr CONT PRN 07/04/20 14:45 07/24/20 13:40 3 MLS/HR Furosemide (Lasix) 40 mg 1X ONCE 07/19/20 00:45 07/19/20 00:46 DC 07/19/20 00:55 40 MG Heparin Sodium (Porcine) (Heparin Sodium) 1,250 unit PRN Q6HRS PRN 07/04/20 12:00 07/16/20 12:09 DC 07/05/20 18:27 1,250 UNIT Heparin Sodium/ Dextrose 250 ml @ 0 mls/hr CONT PRN 07/04/20 12:00 07/16/20 12:09 DC 07/15/20 02:09 14.9 MLS/HR Info (Anti-Coagulation Monitoring By Pharmacy) 1 each PRN DAILY PRN 07/16/20 08:15 07/22/20 10:33 1 EACH Info (CONTRAST GIVEN -- Rx MONITORING) 1 each PRN DAILY PRN 07/03/20 20:45 07/05/20 20:44 DC Info (Icu Electrolyte Protocol) 1 ea CONT PRN PRN 07/24/20 15:45 Insulin Human Lispro (HumaLOG) 0-9 UNITS Q6HRS 07/13/20 12:00 07/24/20 05:35 5 UNITS Iohexol (Omnipaque 350 Mg/ml) 90 ml 1X ONCE 07/03/20 20:45 07/03/20 20:46 DC 07/03/20 21:00 90 ML Lorazepam (Ativan Inj) 2 mg PRN Q1HR PRN 07/21/20 12:30 07/24/20 06:51 2 MG Magnesium Sulfate 100 ml @ 50 mls/hr DAILY 07/25/20 09:00 07/28/20 08:59 UNV Methylprednisolone Sodium Succinate (SOLU-Medrol 40MG VIAL) 40 mg DAILY 07/21/20 09:00 07/22/20 09:36 DC 07/22/20 09:08 40 MG Midazolam HCl (Versed) 5 mg STK-MED ONCE 07/04/20 09:21 07/04/20 09:21 DC Morphine Sulfate (Morphine Sulfate) 2 mg PRN Q2HR PRN 07/03/20 22:30 07/04/20 22:29 DC Multi-Ingred Cream/Lotion/Oil/ Oint (Artificial Tears Eye Ointment) 1 wenceslao PRN Q1HR PRN 07/18/20 10:45 Norepinephrine Bitartrate 8 mg/ Dextrose 258 ml @ 16.061 mls/ hr CONT PRN 07/04/20 13:15 07/18/20 11:01 DC 07/05/20 00:33 28.909 MLS/HR Ondansetron HCl (Zofran) 4 mg PRN Q8HRS PRN 07/03/20 22:30 07/04/20 22:29 DC Pantoprazole Sodium (PROTONIX VIAL for IV PUSH) 40 mg DAILYAC 07/04/20 12:30 07/24/20 08:32 40 MG Piperacillin Sod/ Tazobactam Sod (Zosyn Per Pharmacy) 1 each PRN DAILY PRN 07/04/20 12:00 07/18/20 07:46 DC Piperacillin Sod/ Tazobactam Sod 3.375 gm/Sodium Chloride 50 ml @ 100 mls/hr Q6HRS 07/04/20 12:00 07/17/20 11:11 DC 07/17/20 05:10 100 MLS/HR Piperacillin Sod/ Tazobactam Sod 4.5 gm/Sodium Chloride 100 ml @ 200 mls/hr Q6HRS 07/24/20 12:00 07/25/20 01:19 200 MLS/HR Potassium Chloride/Water 100 ml @ 100 mls/hr Q1HR 07/24/20 16:00 07/24/20 21:59 UNV Potassium Phosphate 13.6 mmol/Sodium Chloride 254.5333 ml @ 62.5 mls/hr Q4H 07/24/20 15:30 07/25/20 03:29 UNV Propofol 100 ml @ 0 mls/hr CONT PRN 07/04/20 09:15 07/25/20 01:48 12.5 MLS/HR Remdesivir 100 mg/ Sodium Chloride 230 ml @ 460 mls/hr Q24H 07/07/20 14:30 07/10/20 14:59 DC 07/10/20 13:59 460 MLS/HR Remdesivir 200 mg/ Sodium Chloride 210 ml @ 210 mls/hr 1X ONCE 07/06/20 14:30 07/06/20 15:29 DC 07/06/20 14:51 210 MLS/HR Sodium Chloride 1,000 ml @ 100 mls/hr Q10H 07/03/20 23:00 07/04/20 22:59 DC 07/05/20 00:35 100 MLS/HR Sodium Phosphate 20 mmol/Sodium Chloride 256.6667 ml @ 62.5 mls/hr 1X ONCE 07/24/20 15:30 07/24/20 19:36 UNV Sodium Phosphate 30 mmol/Sodium Chloride 260 ml @ 62.5 mls/hr 1X ONCE 07/24/20 15:30 07/24/20 19:39 UNV Succinylcholine Chloride (Anectine) 200 mg 1X ONCE 07/04/20 09:30 07/04/20 09:31 DC 07/04/20 09:38 200 MG Throat Lozenges (Cepacol Sore Throat Lozenge) 1 lety PRN Q2HRS PRN 07/04/20 01:15 Vecuronium [place] 50 mg/ Miscellaneous 50 ml @ 4.094 mls/ hr CONT PRN 07/12/20 14:45 07/22/20 09:34 DC 07/18/20 01:56 7.5 MLS/HR Vecuronium [place] (Norcuron Bolus) 6 mg PRN Q6HRS PRN 07/22/20 12:00 07/22/20 12:02 6 MG Vitamin D (Vitamin D3) 5,000 unit DAILY 07/05/20 09:00 07/24/20 08:33 5,000 UNIT Zinc Sulfate (Orazinc) 220 mg DAILY 07/05/20 09:00 07/24/20 08:33 220 MG Labs: Lab Laboratory Tests Test 07/24/20 08:45 07/24/20 11:35 07/24/20 17:29 07/25/20 01:25 O2 Saturation 96 % (92-99) Arterial Blood pH 7.41 (7.35-7.45) Arterial Blood pCO2 at Patient Temp 51 mmHg (35-46) Arterial Blood pO2 at Patient Temp 88 mmHg (75-108) Arterial Blood HCO3 32 mmol/L (21-28) Arterial Blood Base Excess 6 mmol/L (-3-3) FiO2 50 Glucose (Fingerstick) 142 mg/dL (70-99) 136 mg/dL (70-99) 134 mg/dL (70-99) Test 07/25/20 04:40 White Blood Count 17.9 x10^3/uL (4.0-11.0) Red Blood Count 3.23 x10^6/uL (4.30-5.70) Hemoglobin 10.8 g/dL (13.0-17.5) Hematocrit 31.9 % (39.0-53.0) Mean Corpuscular Volume 99 fL (79-100) Mean Corpuscular Hemoglobin 34 pg (25-35) Mean Corpuscular Hemoglobin Concent 34 g/dL (31-37) Red Cell Distribution Width 14.3 % (11.5-14.5) Platelet Count 163 x10^3/uL (140-400) Neutrophils (%) (Auto) 93 % (31-73) Lymphocytes (%) (Auto) 3 % (24-48) Monocytes (%) (Auto) 2 % (0-9) Eosinophils (%) (Auto) 1 % (0-3) Basophils (%) (Auto) 0 % (0-3) Neutrophils # (Auto) 16.7 x10^3/uL (1.8-7.7) Lymphocytes # (Auto) 0.6 x10^3/uL (1.0-4.8) Monocytes # (Auto) 0.3 x10^3/uL (0.0-1.1) Eosinophils # (Auto) 0.3 x10^3/uL (0.0-0.7) Basophils # (Auto) 0.0 x10^3/uL (0.0-0.2) Sodium Level 132 mmol/L (136-145) Potassium Level 3.8 mmol/L (3.5-5.1) Chloride Level 95 mmol/L (98-107) Carbon Dioxide Level 32 mmol/L (21-32) Anion Gap 5 (6-14) Blood Urea Nitrogen 12 mg/dL (8-26) Creatinine 0.4 mg/dL (0.7-1.3) Estimated GFR (Cockcroft-Gault) 227.7 BUN/Creatinine Ratio 30 (6-20) Glucose Level 174 mg/dL (70-99) Calcium Level 8.0 mg/dL (8.5-10.1) Total Bilirubin 0.7 mg/dL (0.2-1.0) Aspartate Amino Transf (AST/SGOT) 13 U/L (15-37) Alanine Aminotransferase (ALT/SGPT) 30 U/L (16-63) Alkaline Phosphatase 102 U/L (46-116) Total Protein 5.6 g/dL (6.4-8.2) Albumin 1.4 g/dL (3.4-5.0) Albumin/Globulin Ratio 0.3 (1.0-1.7) Objective: Assessment: Fever Leukocytosis COVID-19 positive. Status post remdesivir, steroids Acute hypoxic respiratory failure/ARDS /pneumonia Bilateral pulmonary emboli. Hypertension. Bacteremia 07/23 1/2 bottles GPC Plan: Plan of Care Cont Zosyn start IV Vanc per pharmacy Monitor renal func closely F/U GPC in BC Repeat BC in am Status post steroids Status post remdesivir Monitor labs and cultures Critically ill d/w JAMI LUCAS MD Jul 25, 2020 05:59
[2020-07-25] MEDS: MIDAZOLAM 100mg/100ml NS BAG 100 ML IV PRN ×2 (06:17→13:34)
[2020-07-25] MEDS: fentaNYL HIGH DOSE PCA 55 ML IV PRN ×2 (06:19→21:30)
--- NOTE | 2020-07-25 06:50 | NUR ---
Received critical microbiology result at 0639. Reported to A Warner at 0645, Gram + Cocci in clusters, in bottles 1 of 2 dated on 07/23. Martha Hylton ordered this RN to order Vancomycin per pharmacy recommendation. Will continue to assess and monitor.
[2020-07-25] MEDS ORDERED: VANCOMYCIN 2 GM in IV NORMAL SALINE 500ML BAG 500 ML IV ONE (07:00)
--- NOTE | 2020-07-25 08:15 | PDOC ---
PROGRESS NOTES Date of Service: DATE: 07/25/20 TIME: 08:15 Chief Complaint Chief Complaint IMPRESSION Acute hypoxic respiratory failure requiring VENT SUPPORT Acute hypoxic respiratory failure/ARDS /pneumonia COVID-19 Subsegmental bilateral PE Leukocytosis NSTEMI AKA Lactic acidosis Hyponatremia, RESOLVED Plan: Appreciate pulmonology recommendations Continue current ventilatory support, currently on 70% and PEEP of 6, avoid increasing PEEP 2/2 risk of barotrauma Follow chest x-ray and ABG, vent management as per pulmonology Heparin has been transitioned to Xarelto Solu-Medrol 40 mg every 12 hours Appreciate ID recommendationscontinue Remdesivir and empiric antibiotics IV fluids Discussed with RN and SW. Antibiotics per ID-- off ABX, infectious disease following increasing leukocytosis has completed full course of remdesivir continue tube feeding for nutritional support 34 MIN CC TIME History of Present Illness History of Present Illness t max 102 f fio2 50% 07/21/2020 Patient no acute events reported overnight. Patient continues to require a lot of support from vent. Discussed with RN 09/19/2019 Patient continues to be pretty much the same , fio2 is at 70%, heparin 07/19/2020 Patient hypotensive today, we will follow recommendations from critical acute care occupational therapist. Vent management as per managed security sales consultant, no other complaints. 07/18/2020 Patient with no acute events reported overnight, fio2 is now at 75% PEEP of 6, Vent management as per pulmonary managed security sales consultant slight increase in temperature noted over the lat 24 hours. Will continue to follow 07/17/2020 Patient with no acute events reported overnight, contineus to require an fio2 of 80%, continue with supportive measures. 07/16/2020 Patient with no acute events reported overnight, patient continues to require quite a bit of FiO2 at 80%. Vent management as per managed security sales consultant, will place a call to family members after rounding. Discussed with RN 07/15/2020 Patient seen and examined bedside in the ICU. FiO2 80% PEEP of 6.pH 7.56, PCO2 32, PO2 56, HCO3 28. Will adjust respiratory rate accordingly to correct pH.> 50% time spent in patient chart, labs, and imaging review and in discussion with RN and SW 07/14/2020 Patient seen and examined bedside. FiO2 65% and PEEP of 6 on vent. ABG: pH 7.26, PCO2 77, PO2 114, HCO3 34. We will adjust respiratory rate or tidal volume to titrate pH.> 50% time spent in patient chart, labs, and imaging review and in discussion with RN and JAVIER 07/13/2020 No acute events overnight. Patient examined bedside sedated and intubated. FiO2 70% PEEP of 6. Improved ABGs.> 50% time spent in patient chart, labs, and imaging review and in discussion with RN and JAVIER 07/12/2020 Patient seen and examined in the ICU. Sedated and intubated. FiO2 65, PEEP of 8 with improved oxygenation. pH 7.4, PCO2 48, PO2 94, HCO3 30. +500 cc fluid balance.> 50% time spent in patient chart, labs, and imaging review and in discussion with RN and JAVIER 07/11/2020 Patient seen and examined bedside in the ICU. Patient continues to be intubated and sedated. FiO2 75%, PEEP of 10. pH 7.40, PCO2 44, PO2 is 135, HCO3 26. Can likely decrease FiO2 due to improved oxygenation. +173 cc in the past 24 hours 07/10/2020 Patient seen and examined bedside in ICU. Patient is intubated and sedated. FiO2 90%, PEEP of 10, respiratory rate of 30. ABG: pH is 7.41, PCO2 42, PO2 113, HCO3 26. 07/09/2020 Patient seen and examined in the ICU. Intubated and sedated. Vent settings FiO2 90%, PEEP of 10, respiratory rate of 30. 07/05: Patient seen in ICU, still intubated and sedated. COVID-19 pending. Patient remains on heparin infusion. Discussed with RN, will try to have central line placed per anesthesia. 07/06: Patient seen in ICU. Still FiO2 100% on vent and sedated. COVID-19 positive. Continue heparin infusion, Zosyn, steroids. 07/07: Covid positive patient seen in ICU. On vent with FiO2 100%, PEEP 10. Continue remdesivir, steroids, Zosyn. Continue to monitor 07/08: Patient seen in Covid ICU. Still on vent with FiO2 100%, PEEP 10. Afebrile. No acute events overnight. Continue steroids, antibiotics, and remdesivir. Patient is 49-year-old male with past medical history of hypertension, who presents to the ED with complaints of worsening shortness of breath over the past 5 days. Associated sore throat, fatigue, and generalized weakness. Patient was reportedly tested for COVID-19 last Thursday, but he had negative test results. His symptoms acutely worsened yesterday. Upon arrival to the ER his oxygen saturation was 60% on room air. He was placed on BiPAP and admitted to the ICU. Patient was subsequently intubated due to worsening respiratory failure. Vitals Vitals Vital Signs Date Time Temp Pulse Resp B/P (MAP) Pulse Ox O2 Delivery O2 Flow Rate FiO2 07/25/20 06:58 22 100 Ventilator 07/25/20 06:00 94 104/65 (78) 07/25/20 05:00 99.3 99.3 Physical Exam Physical Exam General intubated/sedated HEENT normocephalic atraumatic, OGT/ETT present LUNGS: Coarse breath sounds anteriorly HEART: S1-S2 no murmurs ABDOMEN: Nondistended, soft bowel sounds present Fernandez in place SKIN: No generalized rash Right upper extremity PICC line clean Neuro intubated/sedated General: Other (Sedated and intubated) Heart: Regular rate (SR/ST) Lungs: Other (orally intubated, clear ) Abdomen: Other (Nondistended) Extremities: No clubbing, No cyanosis Skin: No rashes, No breakdown Labs LABS Laboratory Tests Test 07/24/20 08:45 07/24/20 11:35 07/24/20 17:29 07/25/20 01:25 O2 Saturation 96 % (92-99) Arterial Blood pH 7.41 (7.35-7.45) Arterial Blood pCO2 at Patient Temp 51 mmHg (35-46) Arterial Blood pO2 at Patient Temp 88 mmHg (75-108) Arterial Blood HCO3 32 mmol/L (21-28) Arterial Blood Base Excess 6 mmol/L (-3-3) FiO2 50 Glucose (Fingerstick) 142 mg/dL (70-99) 136 mg/dL (70-99) 134 mg/dL (70-99) Test 07/25/20 04:40 White Blood Count 17.9 x10^3/uL (4.0-11.0) Red Blood Count 3.23 x10^6/uL (4.30-5.70) Hemoglobin 10.8 g/dL (13.0-17.5) Hematocrit 31.9 % (39.0-53.0) Mean Corpuscular Volume 99 fL (79-100) Mean Corpuscular Hemoglobin 34 pg (25-35) Mean Corpuscular Hemoglobin Concent 34 g/dL (31-37) Red Cell Distribution Width 14.3 % (11.5-14.5) Platelet Count 163 x10^3/uL (140-400) Neutrophils (%) (Auto) 93 % (31-73) Lymphocytes (%) (Auto) 3 % (24-48) Monocytes (%) (Auto) 2 % (0-9) Eosinophils (%) (Auto) 1 % (0-3) Basophils (%) (Auto) 0 % (0-3) Neutrophils # (Auto) 16.7 x10^3/uL (1.8-7.7) Lymphocytes # (Auto) 0.6 x10^3/uL (1.0-4.8) Monocytes # (Auto) 0.3 x10^3/uL (0.0-1.1) Eosinophils # (Auto) 0.3 x10^3/uL (0.0-0.7) Basophils # (Auto) 0.0 x10^3/uL (0.0-0.2) Sodium Level 132 mmol/L (136-145) Potassium Level 3.8 mmol/L (3.5-5.1) Chloride Level 95 mmol/L (98-107) Carbon Dioxide Level 32 mmol/L (21-32) Anion Gap 5 (6-14) Blood Urea Nitrogen 12 mg/dL (8-26) Creatinine 0.4 mg/dL (0.7-1.3) Estimated GFR (Cockcroft-Gault) 227.7 BUN/Creatinine Ratio 30 (6-20) Glucose Level 174 mg/dL (70-99) Calcium Level 8.0 mg/dL (8.5-10.1) Total Bilirubin 0.7 mg/dL (0.2-1.0) Aspartate Amino Transf (AST/SGOT) 13 U/L (15-37) Alanine Aminotransferase (ALT/SGPT) 30 U/L (16-63) Alkaline Phosphatase 102 U/L (46-116) Total Protein 5.6 g/dL (6.4-8.2) Albumin 1.4 g/dL (3.4-5.0) Albumin/Globulin Ratio 0.3 (1.0-1.7) Assessment and Plan Assessmemt and Plan Problems Medical Problems: (1) Acute respiratory failure with hypoxia Status: Acute (2) PRIYA (acute kidney injury) Status: Acute (3) Elevated troponin I level Status: Acute (4) Pulmonary emboli Status: Acute (5) Suspected COVID-19 virus infection Status: Acute Comment Review of Relevant I have reviewed the following items trino (where applicable) has been applied. Labs Laboratory Tests Test 07/23/20 11:17 07/23/20 17:32 07/23/20 21:00 07/23/20 23:49 Glucose (Fingerstick) 184 mg/dL (70-99) 143 mg/dL (70-99) 119 mg/dL (70-99) Urine Collection Type Unknown Urine Color [place] Urine Clarity Cloudy Urine pH 5.5 (<5.0-8.0) Urine Specific [place] >=1.030 (1.000-1.030) Urine Protein 100 mg/dL (NEG-TRACE) Urine Glucose (UA) Negative mg/dL (NEG) Urine Ketones (Stick) Trace mg/dL (NEG) Urine Blood Large (NEG) Urine Nitrite Positive (NEG) Urine Bilirubin Small (NEG) Urine Urobilinogen Dipstick 4.0 mg/dL (0.2 mg/dL) Urine Leukocyte Esterase Moderate (NEG) Urine RBC Tntc /HPF (0-2) Urine WBC 11-20 /HPF (0-4) Urine Squamous Epithelial Cells Occ /LPF Urine Amorphous Sediment Present /HPF Urine Bacteria Many /HPF (0-FEW) Urine Granular Casts Occasional /HPF Urine Mucus Mod /LPF Test 07/24/20 05:20 07/24/20 05:28 07/24/20 08:45 07/24/20 11:35 White Blood Count 21.6 x10^3/uL (4.0-11.0) Red Blood Count 3.78 x10^6/uL (4.30-5.70) Hemoglobin 12.7 g/dL (13.0-17.5) Hematocrit 37.8 % (39.0-53.0) Mean Corpuscular Volume 100 fL (79-100) Mean Corpuscular Hemoglobin 34 pg (25-35) Mean Corpuscular Hemoglobin Concent 34 g/dL (31-37) Red Cell Distribution Width 14.5 % (11.5-14.5) Platelet Count 169 x10^3/uL (140-400) Neutrophils (%) (Auto) 90 % (31-73) Lymphocytes (%) (Auto) 6 % (24-48) Monocytes (%) (Auto) 2 % (0-9) Eosinophils (%) (Auto) 1 % (0-3) Basophils (%) (Auto) 0 % (0-3) Neutrophils # (Auto) 19.6 x10^3/uL (1.8-7.7) Lymphocytes # (Auto) 1.3 x10^3/uL (1.0-4.8) Monocytes # (Auto) 0.4 x10^3/uL (0.0-1.1) Eosinophils # (Auto) 0.3 x10^3/uL (0.0-0.7) Basophils # (Auto) 0.0 x10^3/uL (0.0-0.2) Segmented Neutrophils % 86 % (35-66) Band Neutrophils % 7 % (0-9) Lymphocytes % 5 % (24-48) Monocytes % 1 % (0-10) Eosinophils % 1 % (0-5) Toxic Vacuolation Present Dohle Bodies Present Platelet Estimate Adequate (ADEQUATE) Sodium Level 133 mmol/L (136-145) Potassium Level 3.4 mmol/L (3.5-5.1) Chloride Level 95 mmol/L (98-107) Carbon Dioxide Level 32 mmol/L (21-32) Anion Gap 6 (6-14) Blood Urea Nitrogen 13 mg/dL (8-26) Creatinine 0.4 mg/dL (0.7-1.3) Estimated GFR (Cockcroft-Gault) 227.7 BUN/Creatinine Ratio 33 (6-20) Glucose Level 151 mg/dL (70-99) Calcium Level 8.0 mg/dL (8.5-10.1) Total Bilirubin 0.6 mg/dL (0.2-1.0) Aspartate Amino Transf (AST/SGOT) 15 U/L (15-37) Alanine Aminotransferase (ALT/SGPT) 42 U/L (16-63) Alkaline Phosphatase 104 U/L (46-116) Total Protein 5.4 g/dL (6.4-8.2) Albumin 1.8 g/dL (3.4-5.0) Albumin/Globulin Ratio 0.5 (1.0-1.7) Glucose (Fingerstick) 222 mg/dL (70-99) 142 mg/dL (70-99) O2 Saturation 96 % (92-99) Arterial Blood pH 7.41 (7.35-7.45) Arterial Blood pCO2 at Patient Temp 51 mmHg (35-46) Arterial Blood pO2 at Patient Temp 88 mmHg (75-108) Arterial Blood HCO3 32 mmol/L (21-28) Arterial Blood Base Excess 6 mmol/L (-3-3) FiO2 50 Test 07/24/20 17:29 07/25/20 01:25 07/25/20 04:40 Glucose (Fingerstick) 136 mg/dL (70-99) 134 mg/dL (70-99) White Blood Count 17.9 x10^3/uL (4.0-11.0) Red Blood Count 3.23 x10^6/uL (4.30-5.70) Hemoglobin 10.8 g/dL (13.0-17.5) Hematocrit 31.9 % (39.0-53.0) Mean Corpuscular Volume 99 fL (79-100) Mean Corpuscular Hemoglobin 34 pg (25-35) Mean Corpuscular Hemoglobin Concent 34 g/dL (31-37) Red Cell Distribution Width 14.3 % (11.5-14.5) Platelet Count 163 x10^3/uL (140-400) Neutrophils (%) (Auto) 93 % (31-73) Lymphocytes (%) (Auto) 3 % (24-48) Monocytes (%) (Auto) 2 % (0-9) Eosinophils (%) (Auto) 1 % (0-3) Basophils (%) (Auto) 0 % (0-3) Neutrophils # (Auto) 16.7 x10^3/uL (1.8-7.7) Lymphocytes # (Auto) 0.6 x10^3/uL (1.0-4.8) Monocytes # (Auto) 0.3 x10^3/uL (0.0-1.1) Eosinophils # (Auto) 0.3 x10^3/uL (0.0-0.7) Basophils # (Auto) 0.0 x10^3/uL (0.0-0.2) Sodium Level 132 mmol/L (136-145) Potassium Level 3.8 mmol/L (3.5-5.1) Chloride Level 95 mmol/L (98-107) Carbon Dioxide Level 32 mmol/L (21-32) Anion Gap 5 (6-14) Blood Urea Nitrogen 12 mg/dL (8-26) Creatinine 0.4 mg/dL (0.7-1.3) Estimated GFR (Cockcroft-Gault) 227.7 BUN/Creatinine Ratio 30 (6-20) Glucose Level 174 mg/dL (70-99) Calcium Level 8.0 mg/dL (8.5-10.1) Total Bilirubin 0.7 mg/dL (0.2-1.0) Aspartate Amino Transf (AST/SGOT) 13 U/L (15-37) Alanine Aminotransferase (ALT/SGPT) 30 U/L (16-63) Alkaline Phosphatase 102 U/L (46-116) Total Protein 5.6 g/dL (6.4-8.2) Albumin 1.4 g/dL (3.4-5.0) Albumin/Globulin Ratio 0.3 (1.0-1.7) Laboratory Tests Test 07/24/20 08:45 07/24/20 11:35 07/24/20 17:29 07/25/20 01:25 O2 Saturation 96 % (92-99) Arterial Blood pH 7.41 (7.35-7.45) Arterial Blood pCO2 at Patient Temp 51 mmHg (35-46) Arterial Blood pO2 at Patient Temp 88 mmHg (75-108) Arterial Blood HCO3 32 mmol/L (21-28) Arterial Blood Base Excess 6 mmol/L (-3-3) FiO2 50 Glucose (Fingerstick) 142 mg/dL (70-99) 136 mg/dL (70-99) 134 mg/dL (70-99) Test 07/25/20 04:40 White Blood Count 17.9 x10^3/uL (4.0-11.0) Red Blood Count 3.23 x10^6/uL (4.30-5.70) Hemoglobin 10.8 g/dL (13.0-17.5) Hematocrit 31.9 % (39.0-53.0) Mean Corpuscular Volume 99 fL (79-100) Mean Corpuscular Hemoglobin 34 pg (25-35) Mean Corpuscular Hemoglobin Concent 34 g/dL (31-37) Red Cell Distribution Width 14.3 % (11.5-14.5) Platelet Count 163 x10^3/uL (140-400) Neutrophils (%) (Auto) 93 % (31-73) Lymphocytes (%) (Auto) 3 % (24-48) Monocytes (%) (Auto) 2 % (0-9) Eosinophils (%) (Auto) 1 % (0-3) Basophils (%) (Auto) 0 % (0-3) Neutrophils # (Auto) 16.7 x10^3/uL (1.8-7.7) Lymphocytes # (Auto) 0.6 x10^3/uL (1.0-4.8) Monocytes # (Auto) 0.3 x10^3/uL (0.0-1.1) Eosinophils # (Auto) 0.3 x10^3/uL (0.0-0.7) Basophils # (Auto) 0.0 x10^3/uL (0.0-0.2) Sodium Level 132 mmol/L (136-145) Potassium Level 3.8 mmol/L (3.5-5.1) Chloride Level 95 mmol/L (98-107) Carbon Dioxide Level 32 mmol/L (21-32) Anion Gap 5 (6-14) Blood Urea Nitrogen 12 mg/dL (8-26) Creatinine 0.4 mg/dL (0.7-1.3) Estimated GFR (Cockcroft-Gault) 227.7 BUN/Creatinine Ratio 30 (6-20) Glucose Level 174 mg/dL (70-99) Calcium Level 8.0 mg/dL (8.5-10.1) Total Bilirubin 0.7 mg/dL (0.2-1.0) Aspartate Amino Transf (AST/SGOT) 13 U/L (15-37) Alanine Aminotransferase (ALT/SGPT) 30 U/L (16-63) Alkaline Phosphatase 102 U/L (46-116) Total Protein 5.6 g/dL (6.4-8.2) Albumin 1.4 g/dL (3.4-5.0) Albumin/Globulin Ratio 0.3 (1.0-1.7) Microbiology 07/23/20 Blood Culture - Final, Complete Medications Current Medications Ceftriaxone Sodium (Rocephin) 1 gm 1X ONCE IVP Last administered on 07/03/20at 20:11; Start 07/03/20 at 19:15; Stop 07/03/20 at 19:19; Status DC Azithromycin (Zithromax) 500 mg 1X ONCE PO Last administered on 07/03/20at 20:11; Start 07/03/20 at 19:15; Stop 07/03/20 at 19:19; Status DC Sodium Chloride 1,000 ml @ 1,000 mls/hr 1X ONCE IV Last administered on 07/03/20at 20:11; Start 07/03/20 at 19:15; Stop 07/03/20 at 20:14; Status DC Sodium Chloride 1,000 ml @ 1,000 mls/hr 1X ONCE IV Last administered on 07/03/20at 19:15; Start 07/03/20 at 19:15; Stop 07/03/20 at 20:14; Status DC Iohexol (Omnipaque 350 Mg/ml) 90 ml 1X ONCE IV Last administered on 07/03/20at 21:00; Start 07/03/20 at 20:45; Stop 07/03/20 at 20:46; Status DC Info (CONTRAST GIVEN -- Rx MONITORING) 1 each PRN DAILY PRN MC SEE COMMENTS; Start 07/03/20 at 20:45; Stop 07/05/20 at 20:44; Status DC Enoxaparin Sodium (Lovenox 150mg Syringe) 150 mg 1X ONCE SQ Last administered on 07/03/20at 22:45; Start 07/03/20 at 23:00; Stop 07/03/20 at 23:01; Status DC Ondansetron HCl (Zofran) 4 mg PRN Q8HRS PRN IV NAUSEA/VOMITING 1ST CHOICE; Start 07/03/20 at 22:30; Stop 07/04/20 at 22:29; Status DC Morphine Sulfate (Morphine Sulfate) 2 mg PRN Q2HR PRN IV SEVERE PAIN 7-10; Start 07/03/20 at 22:30; Stop 07/04/20 at 22:29; Status DC Sodium Chloride 1,000 ml @ 100 mls/hr Q10H IV Last administered on 07/05/20at 00:35; Start 07/03/20 at 23:00; Stop 07/04/20 at 22:59; Status DC Acetaminophen (Tylenol) 650 mg PRN Q4HRS PRN PO FEVER > 100.3'F; Start 07/03/20 at 22:30; Stop 07/04/20 at 22:29; Status DC Throat Lozenges (Cepacol Sore Throat Lozenge) 1 lety PRN Q2HRS PRN PO SORE THROAT; Start 07/04/20 at 01:15 Furosemide (Lasix) 20 mg 1X ONCE IVP Last administered on 07/04/20at 10:10; Start 07/04/20 at 10:00; Stop 07/04/20 at 10:01; Status DC Succinylcholine Chloride (Anectine) 200 mg STK-MED ONCE .ROUTE ; Start 07/04/20 at 09:09; Stop 07/04/20 at 09:09; Status DC Etomidate (Amidate) 20 mg STK-MED ONCE IV ; Start 07/04/20 at 09:09; Stop 07/04/20 at 09:09; Status DC Fentanyl Citrate 30 ml @ 0 mls/hr CONT PRN IV SEE PROTOCOL Last administered on 07/04/20at 09:36; Start 07/04/20 at 09:15; Stop 07/04/20 at 14:36; Status DC Propofol 100 ml @ 0 mls/hr CONT PRN IV SEE PROTOCOL Last administered on 07/25/20at 01:48; Start 07/04/20 at 09:15 Midazolam HCl 100 ml @ 0 mls/hr CONT PRN IV SEE PROTOCOL Last administered on 07/25/20at 06:17; Start 07/04/20 at 09:15 Midazolam HCl (Versed) 5 mg 1X STAT IV Last administered on 07/04/20at 09:41; Start 07/04/20 at 09:21; Stop 07/04/20 at 09:22; Status DC Midazolam HCl (Versed) 5 mg STK-MED ONCE .ROUTE ; Start 07/04/20 at 09:21; Stop 07/04/20 at 09:21; Status DC Etomidate (Amidate) 10 mg 1X ONCE IV Last administered on 07/04/20at 09:37; Start 07/04/20 at 09:30; Stop 07/04/20 at 09:31; Status DC Succinylcholine Chloride (Anectine) 200 mg 1X ONCE IV Last administered on 07/04/20at 09:38; Start 07/04/20 at 09:30; Stop 07/04/20 at 09:31; Status DC Vecuronium [place] (Norcuron Bolus) 6 mg 1X ONCE IV Last administered on 07/04/20at 09:38; Start 07/04/20 at 09:45; Stop 07/04/20 at 09:46; Status DC Vecuronium [place] (Norcuron Bolus) 10 mg STK-MED ONCE IV ; Start 07/04/20 at 09:33; Stop 07/04/20 at 09:33; Status DC Pantoprazole Sodium (PROTONIX VIAL for IV PUSH) 40 mg DAILYAC IVP Last administered on 07/24/20at 08:32; Start 07/04/20 at 12:30 Methylprednisolone Sodium Succinate (SOLU-Medrol 40MG VIAL) 40 mg Q8HRS IV Last administered on 07/11/20at 05:41; Start 07/04/20 at 14:00; Stop 07/11/20 at 11:36; Status DC Piperacillin Sod/ Tazobactam Sod (Zosyn Per Pharmacy) 1 each PRN DAILY PRN MC SEE COMMENTS; Start 07/04/20 at 12:00; Stop 07/18/20 at 07:46; Status DC Heparin Sodium/ Dextrose 250 ml @ 0 mls/hr CONT PRN IV PER PROTOCOL Last administered on 07/15/20at 02:09; Start 07/04/20 at 12:00; Stop 07/16/20 at 12:09; Status DC Heparin Sodium (Porcine) (Heparin Sodium) 2,500 unit PRN Q6HRS PRN IV FOR UFH LEVEL LESS THAN 0.2 Last administered on 07/15/20at 09:19; Start 07/04/20 at 12:00; Stop 07/16/20 at 12:09; Status DC Heparin Sodium (Porcine) (Heparin Sodium) 1,250 unit PRN Q6HRS PRN IV FOR UFH LEVEL 0.2 - 0.29 Last administered on 07/05/20at 18:27; Start 07/04/20 at 12: 00; Stop 07/16/20 at 12:09; Status DC Piperacillin Sod/ Tazobactam Sod 3.375 gm/Sodium Chloride 50 ml @ 100 mls/hr Q6HRS IV Last administered on 07/17/20at 05:10; Start 07/04/20 at 12:00; Stop 07/17/20 at 11:11; Status DC Zinc Sulfate (Orazinc) 220 mg DAILY PO Last administered on 07/24/20at 08:33; Start 07/05/20 at 09:00 Ascorbic Acid (Vitamin C) 500 mg Q6HRS PO Last administered on 07/25/20at 06:16; Start 07/04/20 at 18:00 Vitamin D (Vitamin D3) 5,000 unit DAILY PO Last administered on 07/24/20at 08:33; Start 07/05/20 at 09:00 Vecuronium [place] (Norcuron Bolus) 6 mg 1X ONCE IV Last administered on 07/04/20at 13:27; Start 07/04/20 at 13:15; Stop 07/04/20 at 13:16; Status DC Norepinephrine Bitartrate 8 mg/ Dextrose 258 ml @ 16.061 mls/ hr CONT PRN IV PER PROTOCOL Last administered on 07/05/20at 00:33; Start 07/04/20 at 13:15; Stop 07/18/20 at 11:01; Status DC Fentanyl Citrate 55 ml @ 0 mls/hr CONT PRN IV SEE PROTOCOL Last administered on 07/25/20at 06:19; Start 07/04/20 at 14:45 Vecuronium [place] (Norcuron Bolus) 6 mg Q4H PRN IV OVERBREATHING VENT/out of sync Last administered on 07/20/20at 12:32; Start 07/04/20 at 16:45; Stop 07/22/20 at 09:34; Status DC Furosemide (Lasix) 40 mg 1X ONCE IVP Last administered on 07/05/20at 14:17; Start 07/05/20 at 13:30; Stop 07/05/20 at 13:31; Status DC Insulin Human Lispro (HumaLOG) 0-5 UNITS Q6HRS SQ Last administered on 07/11/20at 05:42; Start 07/05/20 at 18:00; Stop 07/11/20 at 07:54; Status DC Dextrose (Dextrose 50%-Water Syringe) 12.5 gm PRN Q15MIN PRN IV SEE COMMENTS; Start 07/05/20 at 14:15 Insulin Human Lispro (HumaLOG) 2 units 1X ONCE SQ Last administered on 07/05/20at 14:19; Start 07/05/20 at 14:30; Stop 07/05/20 at 14:31; Status DC Remdesivir 200 mg/ Sodium Chloride 210 ml @ 210 mls/hr 1X ONCE IV Last administered on 07/06/20at 14:51; Start 07/06/20 at 14:30; Stop 07/06/20 at 15:29; Status DC Remdesivir 100 mg/ Sodium Chloride 230 ml @ 460 mls/hr Q24H IV Last administered on 07/10/20at 13:59; Start 07/07/20 at 14:30; Stop 07/10/20 at 14:59; Status DC Insulin Human Lispro (HumaLOG) 0-9 UNITS TIDWMEALS SQ Last administered on 07/12/20at 11:31; Start 07/11/20 at 08:00; Stop 07/13/20 at 10:17; Status DC Methylprednisolone Sodium Succinate (SOLU-Medrol 40MG VIAL) 40 mg DAILY IV Last administered on 07/14/20at 07:57; Start 07/12/20 at 09:00; Stop 07/14/20 at 09:26; Status DC Acetaminophen (Tylenol) 650 mg PRN Q6HRS PRN PEG MILD PAIN / TEMP > 100.3'F Last administered on 07/24/20at 03:01; Start 07/12/20 at 12:00 Vecuronium [place] 50 mg/ Miscellaneous 50 ml @ 4.094 mls/ hr CONT PRN IV SEE I/O RECORD Last administered on 07/18/20at 01:56; Start 07/12/20 at 14:45; Stop 07/22/20 at 09:34; Status DC Insulin Human Lispro (HumaLOG) 0-9 UNITS Q6HRS SQ Last administered on 07/24/20at 05:35; Start 07/13/20 at 12:00 Methylprednisolone Sodium Succinate (SOLU-Medrol 40MG VIAL) 40 mg Q12HR IV Last administered on 07/16/20at 09:57; Start 07/14/20 at 21:00; Stop 07/16/20 at 12:10; Status DC Info (Anti-Coagulation Monitoring By Pharmacy) 1 each PRN DAILY PRN MC SEE COMMENTS Last administered on 07/22/20at 10:33; Start 07/16/20 at 08:15 Apixaban (Eliquis) 10 mg BID PO Last administered on 07/22/20at 20:39; Start 07/16/20 at 13:00; Stop 07/22/20 at 21:01; Status DC Methylprednisolone Sodium Succinate (SOLU-Medrol 40MG VIAL) 40 mg DAILY IV Last administered on 07/16/20at 12:22; Start 07/16/20 at 13:00; Stop 07/17/20 at 08:24; Status DC Apixaban (Eliquis) 5 mg BID PO Last administered on 07/24/20at 20:49; Start 07/23/20 at 09:00 Methylprednisolone Sodium Succinate (SOLU-Medrol 40MG VIAL) 40 mg Q12HR IV Last administered on 07/20/20at 07:54; Start 07/17/20 at 09:00; Stop 07/20/20 at 10:20; Status DC Multi-Ingred Cream/Lotion/Oil/ Oint (Artificial Tears Eye Ointment) 1 wenceslao PRN Q1HR PRN OU DRY EYE; Start 07/18/20 at 10:45 Furosemide (Lasix) 40 mg 1X ONCE IVP Last administered on 07/19/20at 00:55; Start 07/19/20 at 00:45; Stop 07/19/20 at 00:46; Status DC Methylprednisolone Sodium Succinate (SOLU-Medrol 40MG VIAL) 40 mg DAILY IV Last administered on 07/22/20at 09:08; Start 07/21/20 at 09:00; Stop 07/22/20 at 09:36; Status DC Lorazepam (Ativan Inj) 2 mg PRN Q1HR PRN IV SEE COMMENTS Last administered on 07/24/20at 06:51; Start 07/21/20 at 12:30 Vecuronium [place] (Norcuron Bolus) 6 mg PRN Q6HRS PRN IV SEDATION Last administered on 07/22/20at 12:02; Start 07/22/20 at 12:00 Piperacillin Sod/ Tazobactam Sod 4.5 gm/Sodium Chloride 100 ml @ 200 mls/hr Q6HRS IV Last administered on 07/25/20at 06:16; Start 07/24/20 at 12:00 Potassium Chloride/Water 100 ml @ 100 mls/hr Q1H IV ; Start 07/24/20 at 15:30; Stop 07/24/20 at 19:29; Status UNV Potassium Chloride/Water 100 ml @ 100 mls/hr Q1H IV ; Start 07/24/20 at 15:30; Stop 07/24/20 at 17:29; Status UNV Potassium Chloride/Water 100 ml @ 100 mls/hr Q1H IV ; Start 07/24/20 at 15:30; Stop 07/24/20 at 23:29; Status UNV Potassium Chloride/Water 100 ml @ 100 mls/hr Q1H IV ; Start 07/24/20 at 15:30; Stop 07/24/20 at 19:29; Status UNV Potassium Chloride/Water 100 ml @ 100 mls/hr Q1H IV ; Start 07/24/20 at 15:30; Stop 07/25/20 at 03:29; Status UNV Potassium Chloride/Water 100 ml @ 100 mls/hr Q1HR IV ; Start 07/24/20 at 16:00; Stop 07/24/20 at 21:59; Status UNV Magnesium Sulfate 100 ml @ 50 mls/hr DAILY IV ; Start 07/25/20 at 09:00; Stop 07/28/20 at 08:59; Status UNV Sodium Phosphate 20 mmol/Sodium Chloride 256.6667 ml @ 62.5 mls/hr 1X ONCE IV ; Start 07/24/20 at 15:30; Stop 07/24/20 at 19:36; Status UNV Sodium Phosphate 30 mmol/Sodium Chloride 260 ml @ 62.5 mls/hr 1X ONCE IV ; Start 07/24/20 at 15:30; Stop 07/24/20 at 19:39; Status UNV Potassium Phosphate 13.6 mmol/Sodium Chloride 254.5333 ml @ 62.5 mls/hr Q4H IV ; Start 07/24/20 at 15:30; Stop 07/25/20 at 03:29; Status UNV Info (Icu Electrolyte Protocol) 1 ea CONT PRN PRN MC SEE COMMENTS; Start 07/24/20 at 15:45 Vancomycin HCl (Vanco Per Pharmacy) 1 each PRN DAILY PRN MC SEE COMMENTS; S tart 07/25/20 at 07:00 Vancomycin HCl 2 gm/Sodium Chloride 500 ml @ 250 mls/hr 1X ONCE IV Last administered on 07/25/20at 07:06; Start 07/25/20 at 07:00; Stop 07/25/20 at 08:59 Vitals/I & O Vital Sign - Last 24 Hours 07/24/20 07/24/20 07/24/20 07/24/20 08:45 09:00 10:00 11:00 Temp 97.0 96.5 96.3 97.0 96.5 96.3 Pulse 74 75 79 Resp 22 22 B/P (MAP) 83/55 (64) 81/51 (61) 83/56 (65) Pulse Ox 100 100 100 100 O2 Delivery Ventilator Ventilator Ventilator Ventilator 07/24/20 07/24/20 07/24/20 07/24/20 11:47 12:00 12:10 13:00 Temp 97.3 99.6 97.3 99.6 Pulse 85 92 Resp B/P (MAP) 85/55 (65) 104/69 (81) Pulse Ox 100 100 99 O2 Delivery Mechanical Ventilator Ventilator Ventilator Ventilator 07/24/20 07/24/20 07/24/20 07/24/20 14:00 15:00 15:43 15:53 Temp 98.9 98.7 98.9 98.7 Pulse 93 92 Resp B/P (MAP) 109/69 (82) 105/65 (78) Pulse Ox 100 100 100 O2 Delivery Ventilator Ventilator Ventilator Mechanical Ventilator 07/24/20 07/24/20 07/24/20 07/24/20 16:00 17:00 18:00 20:00 Temp 97.1 97.6 95.3 99.4 97.1 97.6 95.3 99.4 Pulse 85 79 77 88 Resp 22 22 22 B/P (MAP) 98/61 (73) 89/55 (66) 84/59 (67) 104/60 (75) Pulse Ox 100 100 100 98 O2 Delivery Ventilator Ventilator Ventilator Ventilator 07/24/20 07/24/20 07/24/20 07/24/20 20:00 20:11 21:00 22:00 Pulse 92 88 Resp 22 22 B/P (MAP) 99/58 (72) 98/64 (75) Pulse Ox 96 98 98 O2 Delivery Mechanical Ventilator Ventilator Ventilator Ventilator 07/24/20 07/24/20 07/25/20 07/25/20 23:00 23:48 00:00 00:00 Temp 96.4 96.4 Pulse 84 80 Resp B/P (MAP) 102/61 (75) 94/58 (70) Pulse Ox 98 100 98 O2 Delivery Ventilator Ventilator Mechanical Ventilator Ventilator 07/25/20 07/25/20 07/25/20 07/25/20 01:00 02:00 03:00 04:00 Pulse 88 96 94 Resp B/P (MAP) 96/58 (71) 95/60 (72) 89/52 (64) Pulse Ox 98 98 100 O2 Delivery Ventilator Ventilator Ventilator Mechanical Ventilator 07/25/20 07/25/20 07/25/20 07/25/20 04:00 04:02 05:00 06:00 Temp 99.3 99.3 Pulse 94 98 94 Resp B/P (MAP) 111/65 (80) 104/65 (78) Pulse Ox 100 100 100 100 O2 Delivery Ventilator Ventilator Ventilator 07/25/20 07/25/20 06:19 06:58 Resp Pulse Ox 100 100 O2 Delivery Ventilator Ventilator Intake and Output 07/24/20 07/24/20 07/25/20 15:00 23:00 07:00 Intake Total 850 ml 500 ml 200 ml Output Total 225 ml 315 ml 365 ml Balance 625 ml 185 ml -165 ml Justicifation of Admission Dx: Justifications for Admission: Justification of Admission Dx: Yes REESE CASEY MD Jul 25, 2020 08:15
--- NOTE | 2020-07-25 08:29 | PDOC ---
PULMONARY PROGRESS NOTES DATE: 07/25/20 TIME: 08:29 Subjective PT. remains on vent support , 45% FiO2 and a PEEP of 6 low grade fever overnight no concerns from nursing Vitals Vital Signs Date Time Temp Pulse Resp B/P (MAP) Pulse Ox O2 Delivery O2 Flow Rate FiO2 07/25/20 06:58 22 100 Ventilator 07/25/20 06:00 94 104/65 (78) 07/25/20 05:00 99.3 99.3 Comments Patient seen during pandemic visual exam performed Intubated/sedated RRR no Accessory muscle use No obvious rash or edema Lungs: Other (orally intubated, clear ) Labs Laboratory Tests Test 07/23/20 11:17 07/23/20 17:32 07/23/20 21:00 07/23/20 23:49 Glucose (Fingerstick) 184 mg/dL (70-99) 143 mg/dL (70-99) 119 mg/dL (70-99) Urine Collection Type Unknown Urine Color [place] Urine Clarity Cloudy Urine pH 5.5 (<5.0-8.0) Urine Specific [place] >=1.030 (1.000-1.030) Urine Protein 100 mg/dL (NEG-TRACE) Urine Glucose (UA) Negative mg/dL (NEG) Urine Ketones (Stick) Trace mg/dL (NEG) Urine Blood Large (NEG) Urine Nitrite Positive (NEG) Urine Bilirubin Small (NEG) Urine Urobilinogen Dipstick 4.0 mg/dL (0.2 mg/dL) Urine Leukocyte Esterase Moderate (NEG) Urine RBC Tntc /HPF (0-2) Urine WBC 11-20 /HPF (0-4) Urine Squamous Epithelial Cells Occ /LPF Urine Amorphous Sediment Present /HPF Urine Bacteria Many /HPF (0-FEW) Urine Granular Casts Occasional /HPF Urine Mucus Mod /LPF Test 07/24/20 05:20 07/24/20 05:28 07/24/20 08:45 07/24/20 11:35 White Blood Count 21.6 x10^3/uL (4.0-11.0) Red Blood Count 3.78 x10^6/uL (4.30-5.70) Hemoglobin 12.7 g/dL (13.0-17.5) Hematocrit 37.8 % (39.0-53.0) Mean Corpuscular Volume 100 fL (79-100) Mean Corpuscular Hemoglobin 34 pg (25-35) Mean Corpuscular Hemoglobin Concent 34 g/dL (31-37) Red Cell Distribution Width 14.5 % (11.5-14.5) Platelet Count 169 x10^3/uL (140-400) Neutrophils (%) (Auto) 90 % (31-73) Lymphocytes (%) (Auto) 6 % (24-48) Monocytes (%) (Auto) 2 % (0-9) Eosinophils (%) (Auto) 1 % (0-3) Basophils (%) (Auto) 0 % (0-3) Neutrophils # (Auto) 19.6 x10^3/uL (1.8-7.7) Lymphocytes # (Auto) 1.3 x10^3/uL (1.0-4.8) Monocytes # (Auto) 0.4 x10^3/uL (0.0-1.1) Eosinophils # (Auto) 0.3 x10^3/uL (0.0-0.7) Basophils # (Auto) 0.0 x10^3/uL (0.0-0.2) Segmented Neutrophils % 86 % (35-66) Band Neutrophils % 7 % (0-9) Lymphocytes % 5 % (24-48) Monocytes % 1 % (0-10) Eosinophils % 1 % (0-5) Toxic Vacuolation Present Dohle Bodies Present Platelet Estimate Adequate (ADEQUATE) Sodium Level 133 mmol/L (136-145) Potassium Level 3.4 mmol/L (3.5-5.1) Chloride Level 95 mmol/L (98-107) Carbon Dioxide Level 32 mmol/L (21-32) Anion Gap 6 (6-14) Blood Urea Nitrogen 13 mg/dL (8-26) Creatinine 0.4 mg/dL (0.7-1.3) Estimated GFR (Cockcroft-Gault) 227.7 BUN/Creatinine Ratio 33 (6-20) Glucose Level 151 mg/dL (70-99) Calcium Level 8.0 mg/dL (8.5-10.1) Total Bilirubin 0.6 mg/dL (0.2-1.0) Aspartate Amino Transf (AST/SGOT) 15 U/L (15-37) Alanine Aminotransferase (ALT/SGPT) 42 U/L (16-63) Alkaline Phosphatase 104 U/L (46-116) Total Protein 5.4 g/dL (6.4-8.2) Albumin 1.8 g/dL (3.4-5.0) Albumin/Globulin Ratio 0.5 (1.0-1.7) Glucose (Fingerstick) 222 mg/dL (70-99) 142 mg/dL (70-99) O2 Saturation 96 % (92-99) Arterial Blood pH 7.41 (7.35-7.45) Arterial Blood pCO2 at Patient Temp 51 mmHg (35-46) Arterial Blood pO2 at Patient Temp 88 mmHg (75-108) Arterial Blood HCO3 32 mmol/L (21-28) Arterial Blood Base Excess 6 mmol/L (-3-3) FiO2 50 Test 07/24/20 17:29 07/25/20 01:25 07/25/20 04:40 Glucose (Fingerstick) 136 mg/dL (70-99) 134 mg/dL (70-99) White Blood Count 17.9 x10^3/uL (4.0-11.0) Red Blood Count 3.23 x10^6/uL (4.30-5.70) Hemoglobin 10.8 g/dL (13.0-17.5) Hematocrit 31.9 % (39.0-53.0) Mean Corpuscular Volume 99 fL (79-100) Mean Corpuscular Hemoglobin 34 pg (25-35) Mean Corpuscular Hemoglobin Concent 34 g/dL (31-37) Red Cell Distribution Width 14.3 % (11.5-14.5) Platelet Count 163 x10^3/uL (140-400) Neutrophils (%) (Auto) 93 % (31-73) Lymphocytes (%) (Auto) 3 % (24-48) Monocytes (%) (Auto) 2 % (0-9) Eosinophils (%) (Auto) 1 % (0-3) Basophils (%) (Auto) 0 % (0-3) Neutrophils # (Auto) 16.7 x10^3/uL (1.8-7.7) Lymphocytes # (Auto) 0.6 x10^3/uL (1.0-4.8) Monocytes # (Auto) 0.3 x10^3/uL (0.0-1.1) Eosinophils # (Auto) 0.3 x10^3/uL (0.0-0.7) Basophils # (Auto) 0.0 x10^3/uL (0.0-0.2) Sodium Level 132 mmol/L (136-145) Potassium Level 3.8 mmol/L (3.5-5.1) Chloride Level 95 mmol/L (98-107) Carbon Dioxide Level 32 mmol/L (21-32) Anion Gap 5 (6-14) Blood Urea Nitrogen 12 mg/dL (8-26) Creatinine 0.4 mg/dL (0.7-1.3) Estimated GFR (Cockcroft-Gault) 227.7 BUN/Creatinine Ratio 30 (6-20) Glucose Level 174 mg/dL (70-99) Calcium Level 8.0 mg/dL (8.5-10.1) Total Bilirubin 0.7 mg/dL (0.2-1.0) Aspartate Amino Transf (AST/SGOT) 13 U/L (15-37) Alanine Aminotransferase (ALT/SGPT) 30 U/L (16-63) Alkaline Phosphatase 102 U/L (46-116) Total Protein 5.6 g/dL (6.4-8.2) Albumin 1.4 g/dL (3.4-5.0) Albumin/Globulin Ratio 0.3 (1.0-1.7) Laboratory Tests Test 07/24/20 08:45 07/24/20 11:35 07/24/20 17:29 07/25/20 01:25 O2 Saturation 96 % (92-99) Arterial Blood pH 7.41 (7.35-7.45) Arterial Blood pCO2 at Patient Temp 51 mmHg (35-46) Arterial Blood pO2 at Patient Temp 88 mmHg (75-108) Arterial Blood HCO3 32 mmol/L (21-28) Arterial Blood Base Excess 6 mmol/L (-3-3) FiO2 50 Glucose (Fingerstick) 142 mg/dL (70-99) 136 mg/dL (70-99) 134 mg/dL (70-99) Test 07/25/20 04:40 White Blood Count 17.9 x10^3/uL (4.0-11.0) Red Blood Count 3.23 x10^6/uL (4.30-5.70) Hemoglobin 10.8 g/dL (13.0-17.5) Hematocrit 31.9 % (39.0-53.0) Mean Corpuscular Volume 99 fL (79-100) Mean Corpuscular Hemoglobin 34 pg (25-35) Mean Corpuscular Hemoglobin Concent 34 g/dL (31-37) Red Cell Distribution Width 14.3 % (11.5-14.5) Platelet Count 163 x10^3/uL (140-400) Neutrophils (%) (Auto) 93 % (31-73) Lymphocytes (%) (Auto) 3 % (24-48) Monocytes (%) (Auto) 2 % (0-9) Eosinophils (%) (Auto) 1 % (0-3) Basophils (%) (Auto) 0 % (0-3) Neutrophils # (Auto) 16.7 x10^3/uL (1.8-7.7) Lymphocytes # (Auto) 0.6 x10^3/uL (1.0-4.8) Monocytes # (Auto) 0.3 x10^3/uL (0.0-1.1) Eosinophils # (Auto) 0.3 x10^3/uL (0.0-0.7) Basophils # (Auto) 0.0 x10^3/uL (0.0-0.2) Sodium Level 132 mmol/L (136-145) Potassium Level 3.8 mmol/L (3.5-5.1) Chloride Level 95 mmol/L (98-107) Carbon Dioxide Level 32 mmol/L (21-32) Anion Gap 5 (6-14) Blood Urea Nitrogen 12 mg/dL (8-26) Creatinine 0.4 mg/dL (0.7-1.3) Estimated GFR (Cockcroft-Gault) 227.7 BUN/Creatinine Ratio 30 (6-20) Glucose Level 174 mg/dL (70-99) Calcium Level 8.0 mg/dL (8.5-10.1) Total Bilirubin 0.7 mg/dL (0.2-1.0) Aspartate Amino Transf (AST/SGOT) 13 U/L (15-37) Alanine Aminotransferase (ALT/SGPT) 30 U/L (16-63) Alkaline Phosphatase 102 U/L (46-116) Total Protein 5.6 g/dL (6.4-8.2) Albumin 1.4 g/dL (3.4-5.0) Albumin/Globulin Ratio 0.3 (1.0-1.7) Comments CXR 07/23 Impression: 1. Increased multifocal pulmonary opacities. Impression . IMPRESSION: 1. Acute hypoxemic respiratory failure. 2. Acute pulmonary embolism with cor pulmonale. 3. Possible COVID-19. 4. Ab[address] CT chest revealing ground glass opacities. 5. Hypertension. 6. History of bronchitis. 7. Elevated troponin. 8. Acute kidney injury. 9. Leukocytosis. 10. Covid-19 positive Plan . Continue current ventilatory support, FiO2 45% and a PEEP of 6, proceed with sedation vacation,in anticipation of CPAP trial will consult surgery for possible trach, if not able to wean/extubate by end of week Follow chest x-ray and ABG, Follow cardiology recommendations Antibiotics per ID-- on zosyn Vasopressors if need for hypotension, keep MAP above 65 Has completed full course of remdesivir Continue tube feeding for nutritional support DVT/GI prophylaxis, Eliquis/ Protonix Discussed with RN and RT Pt. is FULL CODE Critical Care Time [id number] ALVIN RAMSEY MD Jul 25, 2020 08:29
[2020-07-25] MEDS ORDERED: MAGNESIUM SULFATE 4GM 100 ML IV SCH (09:00)
[2020-07-25 09:42] LABS: BASE EXCESS ABG 7 mmol/L (-3-3); HCO3 ABG 32 mmol/L (21-28); PCO2 ABG 48 mmHg (35-46); PO2 ABG 77 mmHg (75-108); SAT O2 ABG 95 % (92-99)
[2020-07-25] MEDS: APIXABAN 5 MG TABLET. PO SCH ×2 (09:46→20:38)
[2020-07-25] MEDS: CHOLECALCIFEROL (VITAMIN D3) 5,000 UNIT CAPSULE PO SCH (09:46)
[2020-07-25] MEDS: ZINC SULFATE 220 MG CAPSULE. PO SCH (09:46)
[2020-07-25] MEDS: PANTOPRAZOLE IV PUSH 40 MG VIAL. IVP SCH (09:46)
[2020-07-25 09:52] LABS: FIO2 ABG 45
[2020-07-25] MEDS: VANCOMYCIN PER PHARMACY MC PRN (11:11)
--- NOTE | 2020-07-25 11:11 | NUR ---
Pharmacy Vancomycin Dosing Note S:Consulted to monitor and dose vancomycin started 07/25/20. O:ABHISHEK SKINNER is a 49 year old M with HCAP . Height: 5 feet, 6 inches Weight: 80.6 kg [place] Body Weight: 63.80 Adjusted Body Weight: 70.52 Dosing Weight: Actual Other Antibiotics: ZOSYN LABS: Last BUN: 12 Last Creatinine: 0.4 Creatinine Clearance: >200 mL/min Last WBC: 17.9 Last Procalcitonin: Tmax (past 24 hours): Microbiology: GM (+) COCCI IN CLUSTERS IN 1 OF 2 SETS. I/O: 1550/905 Drug Levels: Last level: on at Last dose given at Vancomycin Dosing: Loading Dose: 2000 mg x1 Dosing Weight: Actual Target Trough: 15-20 A: Based on: HT WT AND RENAL FUNCTION P: 1. Begin Vancomycin 1250 mg IV q8h 2. Follow up Trough level on 07/26/20 at 0630 3. Pharmacy will continue to monitor, follow and adjust therapy as needed. JAMIE HERNANDES, [facility], 07/25/20 1236
--- NOTE | 2020-07-25 11:15 | NUR ---
Began sedation vacation/breathing trial. Patient lasted 1 hour before he began to peace the vent. Peak pressures greater than 80 for over 4 minutes. Constantly coughing. Patient resedation.
[2020-07-25] MEDS: VANCOMYCIN 1.25 GM in IV NORMAL SALINE 250ML 250 ML IV SCH ×2 (12:46→22:44)
--- NOTE | 2020-07-25 14:07 | NUR ---
SS following up with discharge planning. SS reviewed pt chart and discussed with pt RN. Pt is currently on the vent at 45%. COVID19 positive. RN attempted sedation vacation this morning. Pt did not tolerate well and is now back on sedation. Pt on IV Vancomycin and IV Zosyn. Self pay. Not stable. SS will continue to follow for discharge planning.
[2020-07-25] MEDS: ACETAMINOPHEN 650 MG/20.3 ML SOLUTION. PEG PRN (23:00)
[2020-07-26] VITALS (24 sets, daily range): BP systolic 94–134; BP diastolic 51–76
[2020-07-26] MEDS: MIDAZOLAM 100mg/100ml NS BAG 100 ML IV PRN ×3 (00:45→22:06)
[2020-07-26] MEDS: PIPERACILLIN/TAZOBACTAM 4.5 GM in IV NORMAL SALINE 100ML 100 ML IV SCH (05:36)
[2020-07-26] MEDS: ASCORBIC ACID 500 MG TABLET PO SCH ×3 (05:36→17:24)
[2020-07-26] MEDS: INSULIN LISPRO 300 UNITS/3 ML VIAL. SQ SCH ×3 (06:00→17:34)
--- NOTE | 2020-07-26 06:12 | RAD ---
CHEST AP ONLY INDICATION: Reason: resp. failure 104 / Spl. Instructions: / History: . COMPARISON STUDY: 07/23/2020. FINDINGS: Life Support Devices: Stable endotracheal tube, enteric tube, right PICC. Lungs: Low lung volume. Bilateral perihilar and basilar heterogeneous opacities, progressed in the left base. Pleura: Stable pleural spaces. Heart and Mediastinum: Stable cardiomediastinal silhouette and great vessels. Bones and Soft Tissues: Stable regional skeleton and soft tissues. IMPRESSION: 1. Stable life support devices. 2. Bilateral perihilar and basilar opacities, progressed in the left base. Electronically signed by: Chase Bradshaw MD (07/26/2020 6:09 AM) [facility]
[2020-07-26 06:23] LABS: BASO % 0 % (0-3); EOS # 0.2 x10^3/uL (0.0-0.7); EOS % 2 % (0-3); HEMATOCRIT 28.1 % (39.0-53.0); HEMOGLOBIN 9.7 g/dL (13.0-17.5); LYMPH # 0.6 x10^3/uL (1.0-4.8); LYMPH % 5 % (24-48); MEAN CORPUSCULAR HEMOGLOBIN 34 pg (25-35); MEAN CORPUSCULAR HGB CONC 34 g/dL (31-37); MEAN CORPUSCULAR VOLUME 99 fL (79-100); MONO # 0.3 x10^3/uL (0.0-1.1); MONO % 3 % (0-9); NEUT # 10.1 x10^3/uL (1.8-7.7); NEUT % 90 % (31-73); PLATELET COUNT 156 x10^3/uL (140-400); RED BLOOD COUNT 2.83 x10^6/uL (4.30-5.70); RED CELL DISTRIBUTION WIDTH 14.6 % (11.5-14.5); WHITE BLOOD COUNT 11.3 x10^3/uL (4.0-11.0)
[2020-07-26 06:38] LABS: ALBUMIN 1.4 g/dL (3.4-5.0); ALBUMIN/GLOBULIN RATIO 0.3 (1.0-1.7); CALCIUM 8.2 mg/dL (8.5-10.1); CREATININE 0.6 mg/dL (0.7-1.3); GFR 142.6; POTASSIUM 3.6 mmol/L (3.5-5.1); TOTAL BILIRUBIN 0.7 mg/dL (0.2-1.0); TOTAL PROTEIN 5.5 g/dL (6.4-8.2); VANC TR 7.2 mcg/mL (10.0-20.0)
[2020-07-26] MEDS: ZINC SULFATE 220 MG CAPSULE. PO SCH (08:03)
[2020-07-26] MEDS: APIXABAN 5 MG TABLET. PO SCH ×2 (08:03→20:31)
[2020-07-26] MEDS: PANTOPRAZOLE IV PUSH 40 MG VIAL. IVP SCH (08:03)
[2020-07-26] MEDS: VANCOMYCIN 1.5 GM in IV NORMAL SALINE 500ML BAG 500 ML IV SCH ×2 (08:04→15:42)
[2020-07-26] MEDS: CHOLECALCIFEROL (VITAMIN D3) 5,000 UNIT CAPSULE PO SCH (08:04)
[2020-07-26] MEDS: ACETAMINOPHEN 650 MG/20.3 ML SOLUTION. PEG PRN (08:34)
--- NOTE | 2020-07-26 08:37 | PDOC ---
PULMONARY PROGRESS NOTES DATE: 07/26/20 TIME: 08:37 Subjective PT. remains on vent support , 45% FiO2 and a PEEP of 6 fever overnight did not tolerate sedation doug yesterday no concerns from nursing Vitals Vital Signs Date Time Temp Pulse Resp B/P (MAP) Pulse Ox O2 Delivery O2 Flow Rate FiO2 07/26/20 07:56 100 Ventilator 07/26/20 07:00 102 24 94/53 (67) 07/26/20 04:00 99.9 99.9 07/25/20 22:41 15.0 Comments Patient seen during pandemic visual exam performed Intubated/sedated RRR no Accessory muscle use No obvious rash or edema Lungs: Other (orally intubated, clear ) Labs Laboratory Tests Test 07/24/20 08:45 07/24/20 11:35 07/24/20 17:29 07/25/20 01:25 O2 Saturation 96 % (92-99) Arterial Blood pH 7.41 (7.35-7.45) Arterial Blood pCO2 at Patient Temp 51 mmHg (35-46) Arterial Blood pO2 at Patient Temp 88 mmHg (75-108) Arterial Blood HCO3 32 mmol/L (21-28) Arterial Blood Base Excess 6 mmol/L (-3-3) FiO2 50 Glucose (Fingerstick) 142 mg/dL (70-99) 136 mg/dL (70-99) 134 mg/dL (70-99) Test 07/25/20 04:40 07/25/20 05:24 07/25/20 08:00 07/25/20 11:45 White Blood Count 17.9 x10^3/uL (4.0-11.0) Red Blood Count 3.23 x10^6/uL (4.30-5.70) Hemoglobin 10.8 g/dL (13.0-17.5) Hematocrit 31.9 % (39.0-53.0) Mean Corpuscular Volume 99 fL (79-100) Mean Corpuscular Hemoglobin 34 pg (25-35) Mean Corpuscular Hemoglobin Concent 34 g/dL (31-37) Red Cell Distribution Width 14.3 % (11.5-14.5) Platelet Count 163 x10^3/uL (140-400) Neutrophils (%) (Auto) 93 % (31-73) Lymphocytes (%) (Auto) 3 % (24-48) Monocytes (%) (Auto) 2 % (0-9) Eosinophils (%) (Auto) 1 % (0-3) Basophils (%) (Auto) 0 % (0-3) Neutrophils # (Auto) 16.7 x10^3/uL (1.8-7.7) Lymphocytes # (Auto) 0.6 x10^3/uL (1.0-4.8) Monocytes # (Auto) 0.3 x10^3/uL (0.0-1.1) Eosinophils # (Auto) 0.3 x10^3/uL (0.0-0.7) Basophils # (Auto) 0.0 x10^3/uL (0.0-0.2) Sodium Level 132 mmol/L (136-145) Potassium Level 3.8 mmol/L (3.5-5.1) Chloride Level 95 mmol/L (98-107) Carbon Dioxide Level 32 mmol/L (21-32) Anion Gap 5 (6-14) Blood Urea Nitrogen 12 mg/dL (8-26) Creatinine 0.4 mg/dL (0.7-1.3) Estimated GFR (Cockcroft-Gault) 227.7 BUN/Creatinine Ratio 30 (6-20) Glucose Level 174 mg/dL (70-99) Calcium Level 8.0 mg/dL (8.5-10.1) Total Bilirubin 0.7 mg/dL (0.2-1.0) Aspartate Amino Transf (AST/SGOT) 13 U/L (15-37) Alanine Aminotransferase (ALT/SGPT) 30 U/L (16-63) Alkaline Phosphatase 102 U/L (46-116) Total Protein 5.6 g/dL (6.4-8.2) Albumin 1.4 g/dL (3.4-5.0) Albumin/Globulin Ratio 0.3 (1.0-1.7) Glucose (Fingerstick) 148 mg/dL (70-99) 162 mg/dL (70-99) O2 Saturation 95 % (92-99) Arterial Blood pH 7.44 (7.35-7.45) Arterial Blood pCO2 at Patient Temp 48 mmHg (35-46) Arterial Blood pO2 at Patient Temp 77 mmHg (75-108) Arterial Blood HCO3 32 mmol/L (21-28) Arterial Blood Base Excess 7 mmol/L (-3-3) FiO2 45 Test 07/25/20 17:14 07/26/20 06:10 Glucose (Fingerstick) 136 mg/dL (70-99) White Blood Count 11.3 x10^3/uL (4.0-11.0) Red Blood Count 2.83 x10^6/uL (4.30-5.70) Hemoglobin 9.7 g/dL (13.0-17.5) Hematocrit 28.1 % (39.0-53.0) Mean Corpuscular Volume 99 fL (79-100) Mean Corpuscular Hemoglobin 34 pg (25-35) Mean Corpuscular Hemoglobin Concent 34 g/dL (31-37) Red Cell Distribution Width 14.6 % (11.5-14.5) Platelet Count 156 x10^3/uL (140-400) Neutrophils (%) (Auto) 90 % (31-73) Lymphocytes (%) (Auto) 5 % (24-48) Monocytes (%) (Auto) 3 % (0-9) Eosinophils (%) (Auto) 2 % (0-3) Basophils (%) (Auto) 0 % (0-3) Neutrophils # (Auto) 10.1 x10^3/uL (1.8-7.7) Lymphocytes # (Auto) 0.6 x10^3/uL (1.0-4.8) Monocytes # (Auto) 0.3 x10^3/uL (0.0-1.1) Eosinophils # (Auto) 0.2 x10^3/uL (0.0-0.7) Basophils # (Auto) 0.0 x10^3/uL (0.0-0.2) Sodium Level 133 mmol/L (136-145) Potassium Level 3.6 mmol/L (3.5-5.1) Chloride Level 97 mmol/L (98-107) Carbon Dioxide Level 33 mmol/L (21-32) Anion Gap 3 (6-14) Blood Urea Nitrogen 12 mg/dL (8-26) Creatinine 0.6 mg/dL (0.7-1.3) Estimated GFR (Cockcroft-Gault) 142.6 BUN/Creatinine Ratio 20 (6-20) Glucose Level 163 mg/dL (70-99) Calcium Level 8.2 mg/dL (8.5-10.1) Total Bilirubin 0.7 mg/dL (0.2-1.0) Aspartate Amino Transf (AST/SGOT) 12 U/L (15-37) Alanine Aminotransferase (ALT/SGPT) 26 U/L (16-63) Alkaline Phosphatase 115 U/L (46-116) Total Protein 5.5 g/dL (6.4-8.2) Albumin 1.4 g/dL (3.4-5.0) Albumin/Globulin Ratio 0.3 (1.0-1.7) Vancomycin Level Trough 7.2 mcg/mL (10.0-20.0) Vancomycin Last Dose Date 07/25/20 Vancomycin Last Dose Time 2300 Laboratory Tests Test 07/25/20 11:45 07/25/20 17:14 07/26/20 06:10 Glucose (Fingerstick) 162 mg/dL (70-99) 136 mg/dL (70-99) White Blood Count 11.3 x10^3/uL (4.0-11.0) Red Blood Count 2.83 x10^6/uL (4.30-5.70) Hemoglobin 9.7 g/dL (13.0-17.5) Hematocrit 28.1 % (39.0-53.0) Mean Corpuscular Volume 99 fL (79-100) Mean Corpuscular Hemoglobin 34 pg (25-35) Mean Corpuscular Hemoglobin Concent 34 g/dL (31-37) Red Cell Distribution Width 14.6 % (11.5-14.5) Platelet Count 156 x10^3/uL (140-400) Neutrophils (%) (Auto) 90 % (31-73) Lymphocytes (%) (Auto) 5 % (24-48) Monocytes (%) (Auto) 3 % (0-9) Eosinophils (%) (Auto) 2 % (0-3) Basophils (%) (Auto) 0 % (0-3) Neutrophils # (Auto) 10.1 x10^3/uL (1.8-7.7) Lymphocytes # (Auto) 0.6 x10^3/uL (1.0-4.8) Monocytes # (Auto) 0.3 x10^3/uL (0.0-1.1) Eosinophils # (Auto) 0.2 x10^3/uL (0.0-0.7) Basophils # (Auto) 0.0 x10^3/uL (0.0-0.2) Sodium Level 133 mmol/L (136-145) Potassium Level 3.6 mmol/L (3.5-5.1) Chloride Level 97 mmol/L (98-107) Carbon Dioxide Level 33 mmol/L (21-32) Anion Gap 3 (6-14) Blood Urea Nitrogen 12 mg/dL (8-26) Creatinine 0.6 mg/dL (0.7-1.3) Estimated GFR (Cockcroft-Gault) 142.6 BUN/Creatinine Ratio 20 (6-20) Glucose Level 163 mg/dL (70-99) Calcium Level 8.2 mg/dL (8.5-10.1) Total Bilirubin 0.7 mg/dL (0.2-1.0) Aspartate Amino Transf (AST/SGOT) 12 U/L (15-37) Alanine Aminotransferase (ALT/SGPT) 26 U/L (16-63) Alkaline Phosphatase 115 U/L (46-116) Total Protein 5.5 g/dL (6.4-8.2) Albumin 1.4 g/dL (3.4-5.0) Albumin/Globulin Ratio 0.3 (1.0-1.7) Vancomycin Level Trough 7.2 mcg/mL (10.0-20.0) Vancomycin Last Dose Date 07/25/20 Vancomycin Last Dose Time 2300 Comments CXR 07/26 IMPRESSION: 1. Stable life support devices. 2. Bilateral perihilar and basilar opacities, progressed in the left base Impression . IMPRESSION: 1. Acute hypoxemic respiratory failure. 2. Acute pulmonary embolism with cor pulmonale. 3. Possible COVID-19. 4[address] CT chest revealing ground glass opacities. 5. Hypertension. 6. History of bronchitis. 7. Elevated troponin. 8. Acute kidney injury. 9. Leukocytosis. 10. Covid-19 positive Plan . Continue current ventilatory support, FiO2 45% and a PEEP of 6, will consult surgery for possible trach, not able to tolerate sedation doug again yesterday 07/25 Follow chest x-ray and ABG, Follow cardiology recommendations Antibiotics per ID-- vanco/humberto, urine culture + GNR Vasopressors if need for hypotension, keep MAP above 65 Has completed full course of remdesivir Continue tube feeding for nutritional support DVT/GI prophylaxis, Eliquis/ Protonix Discussed with RN and RT Pt. is FULL CODE Critical Care Time [id number] ALVIN RAMSEY MD Jul 26, 2020 08:37
[2020-07-26] MEDS: VANCOMYCIN PER PHARMACY MC PRN ×2 (08:46→08:53)
--- NOTE | 2020-07-26 08:49 | NUR ---
Pharmacy Vancomycin Dosing Note S: Consulted to monitor and dose vancomycin started 07/25/20. O: ABHISHEK SKINNER is a 49 year old M with concerns for possible bacteremia and pneumonia. Other Antibiotics: ZOSYN LABS: Last BUN: 12 Last Creatinine: 0.6 Creatinine Clearance: >100 mL/min Last WBC: 11.3 Last Procalcitonin: - Tmax (past 24 hours): 102.4 Microbiology: 07/23 Blood culture: GM (+) COCCI IN CLUSTERS IN 1 OF 2 SETS. 07/23 Urine culture: > 100,000 cfu/ml gram negative rods I/O: 1784/1315 Drug Levels: Last Trough level: 7.2 on 07/26/20 at 0610 Last dose given 07/25/20 at 2244 Vancomycin Dosing: Dosing Weight: Actual Target Trough: 15-20 A: Based on: Vancomycin trough drawn appropriately prior to 4th dose, severity of suspected infection, patient's renal function and PMH P: 1. Vancomycin dose increased to 1500 mg IV q8h 2. Follow up Trough level on 07/27/20 at 0730 3. Pharmacy will continue to monitor, follow and adjust therapy as needed. HARPAL GERARD, [facility], 07/26/20 0846
[2020-07-26] MEDS: ANTI-COAG MONITOR BY PHARMACY. MC PRN (08:59)
--- NOTE | 2020-07-26 09:31 | PDOC ---
PROGRESS NOTES Date of Service: DATE: 07/26/20 TIME: 09:31 Chief Complaint Chief Complaint IMPRESSION Acute hypoxic respiratory failure requiring VENT SUPPORT Acute hypoxic respiratory failure/ARDS /pneumonia Bilateral perihilar and basilar opacities, progressed in the left base. 07-26 COVID-19 Subsegmental bilateral PE Leukocytosis NSTEMI AKA Lactic acidosis Hyponatremia, RESOLVED Plan: Appreciate pulmonology recommendations Continue current ventilatory support, currently on 70% and PEEP of 6, avoid increasing PEEP 2/2 risk of barotrauma Follow chest x-ray and ABG, vent management as per pulmonology Heparin has been transitioned to Xarelto Solu-Medrol 40 mg every 12 hours Appreciate ID recommendationscontinue Remdesivir and empiric antibiotics IV fluids Discussed with RN and JAVIER. Antibiotics per ID-- off ABX, infectious disease following increasing leukocytosis has completed full course of remdesivir continue tube feeding for nutritional support 36 MIN CC TIME History of Present Illness History of Present Illness t max 102 f fio2 50% 07/21/2020 Patient no acute events reported overnight. Patient continues to require a lot of support from vent. Discussed with RN 09/19/2019 Patient continues to be pretty much the same , fio2 is at 70%, heparin 07/19/2020 Patient hypotensive today, we will follow recommendations from critical nursing care partner. Vent management as per storage management consultant, no other complaints. 07/18/2020 Patient with no acute events reported overnight, fio2 is now at 75% PEEP of 6, Vent management as per pulmonary storage management consultant slight increase in temperature noted over the lat 24 hours. Will continue to follow 07/17/2020 Patient with no acute events reported overnight, contineus to require an fio2 of 80%, continue with supportive measures. 07/16/2020 Patient with no acute events reported overnight, patient continues to require quite a bit of FiO2 at 80%. Vent management as per storage management consultant, will place a call to family members after rounding. Discussed with RN 07/15/2020 Patient seen and examined bedside in the ICU. FiO2 80% PEEP of 6.pH 7.56, PCO2 32, PO2 56, HCO3 28. Will adjust respiratory rate accordingly to correct pH.> 50% time spent in patient chart, labs, and imaging review and in discussion with RN and SW 07/14/2020 Patient seen and examined bedside. FiO2 65% and PEEP of 6 on vent. ABG: pH 7.26, PCO2 77, PO2 114, HCO3 34. We will adjust respiratory rate or tidal volume to titrate pH.> 50% time spent in patient chart, labs, and imaging review and in discussion with RN and JAVIER 07/13/2020 No acute events overnight. Patient examined bedside sedated and intubated. FiO2 70% PEEP of 6. Improved ABGs.> 50% time spent in patient chart, labs, and imaging review and in discussion with RN and JAVIER 07/12/2020 Patient seen and examined in the ICU. Sedated and intubated. FiO2 65, PEEP of 8 with improved oxygenation. pH 7.4, PCO2 48, PO2 94, HCO3 30. +500 cc fluid balance.> 50% time spent in patient chart, labs, and imaging review and in discussion with RN and JAVIER 07/11/2020 Patient seen and examined bedside in the ICU. Patient continues to be intubated and sedated. FiO2 75%, PEEP of 10. pH 7.40, PCO2 44, PO2 is 135, HCO3 26. Can likely decrease FiO2 due to improved oxygenation. +173 cc in the past 24 hours 07/10/2020 Patient seen and examined bedside in ICU. Patient is intubated and sedated. FiO2 90%, PEEP of 10, respiratory rate of 30. ABG: pH is 7.41, PCO2 42, PO2 113, HCO3 26. 07/09/2020 Patient seen and examined in the ICU. Intubated and sedated. Vent settings FiO2 90%, PEEP of 10, respiratory rate of 30. 07/05: Patient seen in ICU, still intubated and sedated. COVID-19 pending. Patient remains on heparin infusion. Discussed with RN, will try to have central line placed per anesthesia. 07/06: Patient seen in ICU. Still FiO2 100% on vent and sedated. COVID-19 positive. Continue heparin infusion, Zosyn, steroids. 07/07: Covid positive patient seen in ICU. On vent with FiO2 100%, PEEP 10. Continue remdesivir, steroids, Zosyn. Continue to monitor 07/08: Patient seen in Covid ICU. Still on vent with FiO2 100%, PEEP 10. Afebrile. No acute events overnight. Continue steroids, antibiotics, and remdesivir. Patient is 49-year-old male with past medical history of hypertension, who presents to the ED with complaints of worsening shortness of breath over the past 5 days. Associated sore throat, fatigue, and generalized weakness. Patient was reportedly tested for COVID-19 last Thursday, but he had negative test results. His symptoms acutely worsened yesterday. Upon arrival to the ER his oxygen saturation was 60% on room air. He was placed on BiPAP and admitted to the ICU. Patient was subsequently intubated due to worsening respiratory failure. Vitals Vitals Vital Signs Date Time Temp Pulse Resp B/P (MAP) Pulse Ox O2 Delivery O2 Flow Rate FiO2 07/26/20 09:00 94 35 98/52 (67) 99 Ventilator 07/26/20 08:00 102.4 102.4 07/25/20 22:41 15.0 Physical Exam Physical Exam General intubated/sedated HEENT normocephalic atraumatic, OGT/ETT present LUNGS: Coarse breath sounds anteriorly HEART: S1-S2 no murmurs ABDOMEN: Nondistended, soft bowel sounds present Fernandez in place SKIN: No generalized rash Right upper extremity PICC line clean Neuro intubated/sedated General: Other (Sedated and intubated) Heart: Regular rate (SR/ST) Lungs: Other (orally intubated, clear ) Abdomen: Other (Nondistended) Extremities: No clubbing, No cyanosis Skin: No rashes, No breakdown Labs LABS PATIENT: ABHISHEK SKINNER ACCOUNT: [id number] : 1970 LOCATION: [address] [place] [address] AGE: 49 SEX: M EXAM STATUS: ADM IN ORD. PHYSICIAN: ALVIN RAMSEY MD REASON: resp. failure 104 PROCEDURE: CHEST AP ONLY CHEST AP ONLY INDICATION: Reason: resp. failure 104 / Spl. Instructions: / History: . COMPARISON STUDY: 07/23/2020. FINDINGS: Life Support Devices: Stable endotracheal tube, enteric tube, right PICC. Lungs: Low lung volume. Bilateral perihilar and basilar heterogeneous opacities, progressed in the left base. Pleura: Stable pleural spaces. Heart and Mediastinum: Stable cardiomediastinal silhouette and great vessels. Bones and Soft Tissues: Stable regional skeleton and soft tissues. IMPRESSION: 1. Stable life support devices. 2. Bilateral perihilar and basilar opacities, progressed in the left base. Electronically signed by: Shanel Bradshaw MD (07/26/2020 6:09 AM) [facility] DICTATED and SIGNED BY: SHANEL BRADSHAW MD DATE: 07/26/20 [id number] Laboratory Tests Test 07/25/20 11:45 07/25/20 17:14 07/26/20 06:10 Glucose (Fingerstick) 162 mg/dL (70-99) 136 mg/dL (70-99) White Blood Count 11.3 x10^3/uL (4.0-11.0) Red Blood Count 2.83 x10^6/uL (4.30-5.70) Hemoglobin 9.7 g/dL (13.0-17.5) Hematocrit 28.1 % (39.0-53.0) Mean Corpuscular Volume 99 fL (79-100) Mean Corpuscular Hemoglobin 34 pg (25-35) Mean Corpuscular Hemoglobin Concent 34 g/dL (31-37) Red Cell Distribution Width 14.6 % (11.5-14.5) Platelet Count 156 x10^3/uL (140-400) Neutrophils (%) (Auto) 90 % (31-73) Lymphocytes (%) (Auto) 5 % (24-48) Monocytes (%) (Auto) 3 % (0-9) Eosinophils (%) (Auto) 2 % (0-3) Basophils (%) (Auto) 0 % (0-3) Neutrophils # (Auto) 10.1 x10^3/uL (1.8-7.7) Lymphocytes # (Auto) 0.6 x10^3/uL (1.0-4.8) Monocytes # (Auto) 0.3 x10^3/uL (0.0-1.1) Eosinophils # (Auto) 0.2 x10^3/uL (0.0-0.7) Basophils # (Auto) 0.0 x10^3/uL (0.0-0.2) Sodium Level 133 mmol/L (136-145) Potassium Level 3.6 mmol/L (3.5-5.1) Chloride Level 97 mmol/L (98-107) Carbon Dioxide Level 33 mmol/L (21-32) Anion Gap 3 (6-14) Blood Urea Nitrogen 12 mg/dL (8-26) Creatinine 0.6 mg/dL (0.7-1.3) Estimated GFR (Cockcroft-Gault) 142.6 BUN/Creatinine Ratio 20 (6-20) Glucose Level 163 mg/dL (70-99) Calcium Level 8.2 mg/dL (8.5-10.1) Total Bilirubin 0.7 mg/dL (0.2-1.0) Aspartate Amino Transf (AST/SGOT) 12 U/L (15-37) Alanine Aminotransferase (ALT/SGPT) 26 U/L (16-63) Alkaline Phosphatase 115 U/L (46-116) Total Protein 5.5 g/dL (6.4-8.2) Albumin 1.4 g/dL (3.4-5.0) Albumin/Globulin Ratio 0.3 (1.0-1.7) Vancomycin Level Trough 7.2 mcg/mL (10.0-20.0) Vancomycin Last Dose Date 07/25/20 Vancomycin Last Dose Time 2300 Assessment and Plan Assessmemt and Plan Problems Medical Problems: (1) Acute respiratory failure with hypoxia Status: Acute (2) PRIYA (acute kidney injury) Status: Acute (3) Elevated troponin I level Status: Acute (4) Pulmonary emboli Status: Acute (5) Suspected COVID-19 virus infection Status: Acute Comment Review of Relevant I have reviewed the following items trino (where applicable) has been applied. Labs Laboratory Tests Test 07/24/20 11:35 07/24/20 17:29 07/25/20 01:25 07/25/20 04:40 Glucose (Fingerstick) 142 mg/dL (70-99) 136 mg/dL (70-99) 134 mg/dL (70-99) White Blood Count 17.9 x10^3/uL (4.0-11.0) Red Blood Count 3.23 x10^6/uL (4.30-5.70) Hemoglobin 10.8 g/dL (13.0-17.5) Hematocrit 31.9 % (39.0-53.0) Mean Corpuscular Volume 99 fL (79-100) Mean Corpuscular Hemoglobin 34 pg (25-35) Mean Corpuscular Hemoglobin Concent 34 g/dL (31-37) Red Cell Distribution Width 14.3 % (11.5-14.5) Platelet Count 163 x10^3/uL (140-400) Neutrophils (%) (Auto) 93 % (31-73) Lymphocytes (%) (Auto) 3 % (24-48) Monocytes (%) (Auto) 2 % (0-9) Eosinophils (%) (Auto) 1 % (0-3) Basophils (%) (Auto) 0 % (0-3) Neutrophils # (Auto) 16.7 x10^3/uL (1.8-7.7) Lymphocytes # (Auto) 0.6 x10^3/uL (1.0-4.8) Monocytes # (Auto) 0.3 x10^3/uL (0.0-1.1) Eosinophils # (Auto) 0.3 x10^3/uL (0.0-0.7) Basophils # (Auto) 0.0 x10^3/uL (0.0-0.2) Sodium Level 132 mmol/L (136-145) Potassium Level 3.8 mmol/L (3.5-5.1) Chloride Level 95 mmol/L (98-107) Carbon Dioxide Level 32 mmol/L (21-32) Anion Gap 5 (6-14) Blood Urea Nitrogen 12 mg/dL (8-26) Creatinine 0.4 mg/dL (0.7-1.3) Estimated GFR (Cockcroft-Gault) 227.7 BUN/Creatinine Ratio 30 (6-20) Glucose Level 174 mg/dL (70-99) Calcium Level 8.0 mg/dL (8.5-10.1) Total Bilirubin 0.7 mg/dL (0.2-1.0) Aspartate Amino Transf (AST/SGOT) 13 U/L (15-37) Alanine Aminotransferase (ALT/SGPT) 30 U/L (16-63) Alkaline Phosphatase 102 U/L (46-116) Total Protein 5.6 g/dL (6.4-8.2) Albumin 1.4 g/dL (3.4-5.0) Albumin/Globulin Ratio 0.3 (1.0-1.7) Test 07/25/20 05:24 07/25/20 08:00 07/25/20 11:45 07/25/20 17:14 Glucose (Fingerstick) 148 mg/dL (70-99) 162 mg/dL (70-99) 136 mg/dL (70-99) O2 Saturation 95 % (92-99) Arterial Blood pH 7.44 (7.35-7.45) Arterial Blood pCO2 at Patient Temp 48 mmHg (35-46) Arterial Blood pO2 at Patient Temp 77 mmHg (75-108) Arterial Blood HCO3 32 mmol/L (21-28) Arterial Blood Base Excess 7 mmol/L (-3-3) FiO2 45 Test 07/26/20 06:10 White Blood Count 11.3 x10^3/uL (4.0-11.0) Red Blood Count 2.83 x10^6/uL (4.30-5.70) Hemoglobin 9.7 g/dL (13.0-17.5) Hematocrit 28.1 % (39.0-53.0) Mean Corpuscular Volume 99 fL (79-100) Mean Corpuscular Hemoglobin 34 pg (25-35) Mean Corpuscular Hemoglobin Concent 34 g/dL (31-37) Red Cell Distribution Width 14.6 % (11.5-14.5) Platelet Count 156 x10^3/uL (140-400) Neutrophils (%) (Auto) 90 % (31-73) Lymphocytes (%) (Auto) 5 % (24-48) Monocytes (%) (Auto) 3 % (0-9) Eosinophils (%) (Auto) 2 % (0-3) Basophils (%) (Auto) 0 % (0-3) Neutrophils # (Auto) 10.1 x10^3/uL (1.8-7.7) Lymphocytes # (Auto) 0.6 x10^3/uL (1.0-4.8) Monocytes # (Auto) 0.3 x10^3/uL (0.0-1.1) Eosinophils # (Auto) 0.2 x10^3/uL (0.0-0.7) Basophils # (Auto) 0.0 x10^3/uL (0.0-0.2) Sodium Level 133 mmol/L (136-145) Potassium Level 3.6 mmol/L (3.5-5.1) Chloride Level 97 mmol/L (98-107) Carbon Dioxide Level 33 mmol/L (21-32) Anion Gap 3 (6-14) Blood Urea Nitrogen 12 mg/dL (8-26) Creatinine 0.6 mg/dL (0.7-1.3) Estimated GFR (Cockcroft-Gault) 142.6 BUN/Creatinine Ratio 20 (6-20) Glucose Level 163 mg/dL (70-99) Calcium Level 8.2 mg/dL (8.5-10.1) Total Bilirubin 0.7 mg/dL (0.2-1.0) Aspartate Amino Transf (AST/SGOT) 12 U/L (15-37) Alanine Aminotransferase (ALT/SGPT) 26 U/L (16-63) Alkaline Phosphatase 115 U/L (46-116) Total Protein 5.5 g/dL (6.4-8.2) Albumin 1.4 g/dL (3.4-5.0) Albumin/Globulin Ratio 0.3 (1.0-1.7) Vancomycin Level Trough 7.2 mcg/mL (10.0-20.0) Vancomycin Last Dose Date 07/25/20 Vancomycin Last Dose Time 2300 Laboratory Tests Test 07/25/20 11:45 07/25/20 17:14 07/26/20 06:10 Glucose (Fingerstick) 162 mg/dL (70-99) 136 mg/dL (70-99) White Blood Count 11.3 x10^3/uL (4.0-11.0) Red Blood Count 2.83 x10^6/uL (4.30-5.70) Hemoglobin 9.7 g/dL (13.0-17.5) Hematocrit 28.1 % (39.0-53.0) Mean Corpuscular Volume 99 fL (79-100) Mean Corpuscular Hemoglobin 34 pg (25-35) Mean Corpuscular Hemoglobin Concent 34 g/dL (31-37) Red Cell Distribution Width 14.6 % (11.5-14.5) Platelet Count 156 x10^3/uL (140-400) Neutrophils (%) (Auto) 90 % (31-73) Lymphocytes (%) (Auto) 5 % (24-48) Monocytes (%) (Auto) 3 % (0-9) Eosinophils (%) (Auto) 2 % (0-3) Basophils (%) (Auto) 0 % (0-3) Neutrophils # (Auto) 10.1 x10^3/uL (1.8-7.7) Lymphocytes # (Auto) 0.6 x10^3/uL (1.0-4.8) Monocytes # (Auto) 0.3 x10^3/uL (0.0-1.1) Eosinophils # (Auto) 0.2 x10^3/uL (0.0-0.7) Basophils # (Auto) 0.0 x10^3/uL (0.0-0.2) Sodium Level 133 mmol/L (136-145) Potassium Level 3.6 mmol/L (3.5-5.1) Chloride Level 97 mmol/L (98-107) Carbon Dioxide Level 33 mmol/L (21-32) Anion Gap 3 (6-14) Blood Urea Nitrogen 12 mg/dL (8-26) Creatinine 0.6 mg/dL (0.7-1.3) Estimated GFR (Cockcroft-Gault) 142.6 BUN/Creatinine Ratio 20 (6-20) Glucose Level 163 mg/dL (70-99) Calcium Level 8.2 mg/dL (8.5-10.1) Total Bilirubin 0.7 mg/dL (0.2-1.0) Aspartate Amino Transf (AST/SGOT) 12 U/L (15-37) Alanine Aminotransferase (ALT/SGPT) 26 U/L (16-63) Alkaline Phosphatase 115 U/L (46-116) Total Protein 5.5 g/dL (6.4-8.2) Albumin 1.4 g/dL (3.4-5.0) Albumin/Globulin Ratio 0.3 (1.0-1.7) Vancomycin Level Trough 7.2 mcg/mL (10.0-20.0) Vancomycin Last Dose Date 07/25/20 Vancomycin Last Dose Time 2300 Microbiology 07/23/20 Urine Culture - Final, Complete 07/23/20 Antimicrobic Susceptibility - Final, Complete 07/23/20 Blood Culture - Final, Complete Medications Current Medications Ceftriaxone Sodium (Rocephin) 1 gm 1X ONCE IVP Last administered on 07/03/20at 20:11; Start 07/03/20 at 19:15; Stop 07/03/20 at 19:19; Status DC Azithromycin (Zithromax) 500 mg 1X ONCE PO Last administered on 07/03/20at 20:11; Start 07/03/20 at 19:15; Stop 07/03/20 at 19:19; Status DC Sodium Chloride 1,000 ml @ 1,000 mls/hr 1X ONCE IV Last administered on 07/03/20at 20:11; Start 07/03/20 at 19:15; Stop 07/03/20 at 20:14; Status DC Sodium Chloride 1,000 ml @ 1,000 mls/hr 1X ONCE IV Last administered on 07/03/20at 19:15; Start 07/03/20 at 19:15; Stop 07/03/20 at 20:14; Status DC Iohexol (Omnipaque 350 Mg/ml) 90 ml 1X ONCE IV Last administered on 07/03/20at 21:00; Start 07/03/20 at 20:45; Stop 07/03/20 at 20:46; Status DC Info (CONTRAST GIVEN -- Rx MONITORING) 1 each PRN DAILY PRN MC SEE COMMENTS; Start 07/03/20 at 20:45; Stop 07/05/20 at 20:44; Status DC Enoxaparin Sodium (Lovenox 150mg Syringe) 150 mg 1X ONCE SQ Last administered on 07/03/20at 22:45; Start 07/03/20 at 23:00; Stop 07/03/20 at 23:01; Status DC Ondansetron HCl (Zofran) 4 mg PRN Q8HRS PRN IV NAUSEA/VOMITING 1ST CHOICE; Start 07/03/20 at 22:30; Stop 07/04/20 at 22:29; Status DC Morphine Sulfate (Morphine Sulfate) 2 mg PRN Q2HR PRN IV SEVERE PAIN 7-10; Start 07/03/20 at 22:30; Stop 07/04/20 at 22:29; Status DC Sodium Chloride 1,000 ml @ 100 mls/hr Q10H IV Last administered on 07/05/20at 00:35; Start 07/03/20 at 23:00; Stop 07/04/20 at 22:59; Status DC Acetaminophen (Tylenol) 650 mg PRN Q4HRS PRN PO FEVER > 100.3'F; Start 07/03/20 at 22:30; Stop 07/04/20 at 22:29; Status DC Throat Lozenges (Cepacol Sore Throat Lozenge) 1 lety PRN Q2HRS PRN PO SORE THROAT; Start 07/04/20 at 01:15 Furosemide (Lasix) 20 mg 1X ONCE IVP Last administered on 07/04/20at 10:10; Start 07/04/20 at 10:00; Stop 07/04/20 at 10:01; Status DC Succinylcholine Chloride (Anectine) 200 mg STK-MED ONCE .ROUTE ; Start 07/04/20 at 09:09; Stop 07/04/20 at 09:09; Status DC Etomidate (Amidate) 20 mg STK-MED ONCE IV ; Start 07/04/20 at 09:09; Stop 07/04/20 at 09:09; Status DC Fentanyl Citrate 30 ml @ 0 mls/hr CONT PRN IV SEE PROTOCOL Last administered on 07/04/20at 09:36; Start 07/04/20 at 09:15; Stop 07/04/20 at 14:36; Status DC Propofol 100 ml @ 0 mls/hr CONT PRN IV SEE PROTOCOL Last administered on 07/25/20at 13:17; Start 07/04/20 at 09:15 Midazolam HCl 100 ml @ 0 mls/hr CONT PRN IV SEE PROTOCOL Last administered on 07/26/20at 00:45; Start 07/04/20 at 09:15 Midazolam HCl (Versed) 5 mg 1X STAT IV Last administered on 07/04/20at 09:41; Start 07/04/20 at 09:21; Stop 07/04/20 at 09:22; Status DC Midazolam HCl (Versed) 5 mg STK-MED ONCE .ROUTE ; Start 07/04/20 at 09:21; Stop 07/04/20 at 09:21; Status DC Etomidate (Amidate) 10 mg 1X ONCE IV Last administered on 07/04/20at 09:37; Start 07/04/20 at 09:30; Stop 07/04/20 at 09:31; Status DC Succinylcholine Chloride (Anectine) 200 mg 1X ONCE IV Last administered on 07/04/20at 09:38; Start 07/04/20 at 09:30; Stop 07/04/20 at 09:31; Status DC Vecuronium [place] (Norcuron Bolus) 6 mg 1X ONCE IV Last administered on 07/04/20at 09:38; Start 07/04/20 at 09:45; Stop 07/04/20 at 09:46; Status DC Vecuronium [place] (Norcuron Bolus) 10 mg STK-MED ONCE IV ; Start 07/04/20 at 09:33; Stop 07/04/20 at 09:33; Status DC Pantoprazole Sodium (PROTONIX VIAL for IV PUSH) 40 mg DAILYAC IVP Last administered on 07/26/20at 08:03; Start 07/04/20 at 12:30 Methylprednisolone Sodium Succinate (SOLU-Medrol 40MG VIAL) 40 mg Q8HRS IV Last administered on 07/11/20at 05:41; Start 07/04/20 at 14:00; Stop 07/11/20 at 11:36; Status DC Piperacillin Sod/ Tazobactam Sod (Zosyn Per Pharmacy) 1 each PRN DAILY PRN MC SEE COMMENTS; Start 07/04/20 at 12:00; Stop 07/18/20 at 07:46; Status DC Heparin Sodium/ Dextrose 250 ml @ 0 mls/hr CONT PRN IV PER PROTOCOL Last administered on 07/15/20at 02:09; Start 07/04/20 at 12:00; Stop 07/16/20 at 12:09; Status DC Heparin Sodium (Porcine) (Heparin Sodium) 2,500 unit PRN Q6HRS PRN IV FOR UFH LEVEL LESS THAN 0.2 Last administered on 07/15/20at 09:19; Start 07/04/20 at 12:00; Stop 07/16/20 at 12:09; Status DC Heparin Sodium (Porcine) (Heparin Sodium) 1,250 unit PRN Q6HRS PRN IV FOR UFH LEVEL 0.2 - 0.29 Last administered on 07/05/20at 18:27; Start 07/04/20 at 12:00; Stop 07/16/20 at 12:09; Status DC Piperacillin Sod/ Tazobactam Sod 3.375 gm/Sodium Chloride 50 ml @ 100 mls/hr Q6HRS IV Last administered on 07/17/20at 05:10; Start 07/04/20 at 12:00; Stop 07/17/20 at 11:11; Status DC Zinc Sulfate (Orazinc) 220 mg DAILY PO Last administered on 07/26/20at 08:03; Start 07/05/20 at 09:00 Ascorbic Acid (Vitamin C) 500 mg Q6HRS PO Last administered on 07/26/20at 05:36; Start 07/04/20 at 18:00 Vitamin D (Vitamin D3) 5,000 unit DAILY PO Last administered on 07/25/20at 09:46; Start 07/05/20 at 09:00 Vecuronium [place] (Norcuron Bolus) 6 mg 1X ONCE IV Last administered on 07/04/20at 13:27; Start 07/04/20 at 13:15; Stop 07/04/20 at 13:16; Status DC Norepinephrine Bitartrate 8 mg/ Dextrose 258 ml @ 16.061 mls/ hr CONT PRN IV PER PROTOCOL Last administered on 07/05/20at 00:33; Start 07/04/20 at 13:15; Stop 07/18/20 at 11:01; Status DC Fentanyl Citrate 55 ml @ 0 mls/hr CONT PRN IV SEE PROTOCOL Last administered on 07/25/20at 21:30; Start 07/04/20 at 14:45 Vecuronium [place] (Norcuron Bolus) 6 mg Q4H PRN IV OVERBREATHING VENT/out of sync Last administered on 07/20/20at 12:32; Start 07/04/20 at 16:45; Stop 07/22/20 at 09:34; Status DC Furosemide (Lasix) 40 mg 1X ONCE IVP Last administered on 07/05/20at 14:17; Start 07/05/20 at 13:30; Stop 07/05/20 at 13:31; Status DC Insulin Human Lispro (HumaLOG) 0-5 UNITS Q6HRS SQ Last administered on 07/11/20at 05:42; Start 07/05/20 at 18:00; Stop 07/11/20 at 07:54; Status DC Dextrose (Dextrose 50%-Water Syringe) 12.5 gm PRN Q15MIN PRN IV SEE COMMENTS; Start 07/05/20 at 14:15 Insulin Human Lispro (HumaLOG) 2 units 1X ONCE SQ Last administered on 07/05/20at 14:19; Start 07/05/20 at 14:30; Stop 07/05/20 at 14:31; Status DC Remdesivir 200 mg/ Sodium Chloride 210 ml @ 210 mls/hr 1X ONCE IV Last administered on 07/06/20at 14:51; Start 07/06/20 at 14:30; Stop 07/06/20 at 15:29; Status DC Remdesivir 100 mg/ Sodium Chloride 230 ml @ 460 mls/hr Q24H IV Last administered on 07/10/20at 13:59; Start 07/07/20 at 14:30; Stop 07/10/20 at 14:59; Status DC Insulin Human Lispro (HumaLOG) 0-9 UNITS TIDWMEALS SQ Last administered on 07/12/20at 11:31; Start 07/11/20 at 08:00; Stop 07/13/20 at 10:17; Status DC Methylprednisolone Sodium Succinate (SOLU-Medrol 40MG VIAL) 40 mg DAILY IV Last administered on 07/14/20at 07:57; Start 07/12/20 at 09:00; Stop 07/14/20 at 09:26; Status DC Acetaminophen (Tylenol) 650 mg PRN Q6HRS PRN PEG MILD PAIN / TEMP > 100.3'F Last administered on 07/26/20at 08:34; Start 07/12/20 at 12:00 Vecuronium [place] 50 mg/ Miscellaneous 50 ml @ 4.094 mls/ hr CONT PRN IV SEE I/O RECORD Last administered on 07/18/20at 01:56; Start 07/12/20 at 14:45; Stop 07/22/20 at 09:34; Status DC Insulin Human Lispro (HumaLOG) 0-9 UNITS Q6HRS SQ Last administered on 07/25/20at 11:49; Start 07/13/20 at 12:00 Methylprednisolone Sodium Succinate (SOLU-Medrol 40MG VIAL) 40 mg Q12HR IV Last administered on 07/16/20at 09:57; Start 07/14/20 at 21:00; Stop 07/16/20 at 12:10; Status DC Info (Anti-Coagulation Monitoring By Pharmacy) 1 each PRN DAILY PRN MC SEE COMMENTS Last administered on 07/26/20at 08:59; Start 07/16/20 at 08:15 Apixaban (Eliquis) 10 mg BID PO Last administered on 07/22/20at 20:39; Start 07/16/20 at 13:00; Stop 07/22/20 at 21:01; Status DC Methylprednisolone Sodium Succinate (SOLU-Medrol 40MG VIAL) 40 mg DAILY IV Last administered on 07/16/20at 12:22; Start 07/16/20 at 13:00; Stop 07/17/20 at 08:24; Status DC Apixaban (Eliquis) 5 mg BID PO Last administered on 07/26/20at 08:03; Start 07/23/20 at 09:00 Methylprednisolone Sodium Succinate (SOLU-Medrol 40MG VIAL) 40 mg Q12HR IV Last administered on 07/20/20at 07:54; Start 07/17/20 at 09:00; Stop 07/20/20 at 10:20; Status DC Multi-Ingred Cream/Lotion/Oil/ Oint (Artificial Tears Eye Ointment) 1 wenceslao PRN Q1HR PRN OU DRY EYE; Start 07/18/20 at 10:45 Furosemide (Lasix) 40 mg 1X ONCE IVP Last administered on 07/19/20at 00:55; Start 07/19/20 at 00:45; Stop 07/19/20 at 00:46; Status DC Methylprednisolone Sodium Succinate (SOLU-Medrol 40MG VIAL) 40 mg DAILY IV Last administered on 07/22/20at 09:08; Start 07/21/20 at 09:00; Stop 07/22/20 at 09:36; Status DC Lorazepam (Ativan Inj) 2 mg PRN Q1HR PRN IV SEE COMMENTS Last administered on 07/24/20at 06:51; Start 07/21/20 at 12:30 Vecuronium [place] (Norcuron Bolus) 6 mg PRN Q6HRS PRN IV SEDATION Last administered on 07/22/20at 12:02; Start 07/22/20 at 12:00 Piperacillin Sod/ Tazobactam Sod 4.5 gm/Sodium Chloride 100 ml @ 200 mls/hr Q6HRS IV Last administered on 07/26/20at 05:36; Start 07/24/20 at 12:00 Potassium Chloride/Water 100 ml @ 100 mls/hr Q1H IV ; Start 07/24/20 at 15:30; Stop 07/24/20 at 19:29; Status UNV Potassium Chloride/Water 100 ml @ 100 mls/hr Q1H IV ; Start 07/24/20 at 15:30; Stop 07/24/20 at 17:29; Status UNV Potassium Chloride/Water 100 ml @ 100 mls/hr Q1H IV ; Start 07/24/20 at 15:30; Stop 07/24/20 at 23:29; Status UNV Potassium Chloride/Water 100 ml @ 100 mls/hr Q1H IV ; Start 07/24/20 at 15:30; Stop 07/24/20 at 19:29; Status UNV Potassium Chloride/Water 100 ml @ 100 mls/hr Q1H IV ; Start 07/24/20 at 15:30; Stop 07/25/20 at 03:29; Status UNV Potassium Chloride/Water 100 ml @ 100 mls/hr Q1HR IV ; Start 07/24/20 at 16:00; Stop 07/24/20 at 21:59; Status UNV Magnesium Sulfate 100 ml @ 50 mls/hr DAILY IV ; Start 07/25/20 at 09:00; Stop 07/28/20 at 08:59; Status UNV Sodium Phosphate 20 mmol/Sodium Chloride 256.6667 ml @ 62.5 mls/hr 1X ONCE IV ; Start 07/24/20 at 15:30; Stop 07/24/20 at 19:36; Status UNV Sodium Phosphate 30 mmol/Sodium Chloride 260 ml @ 62.5 mls/hr 1X ONCE IV ; Start 07/24/20 at 15:30; Stop 07/24/20 at 19:39; Status UNV Potassium Phosphate 13.6 mmol/Sodium Chloride 254.5333 ml @ 62.5 mls/hr Q4H IV ; Start 07/24/20 at 15:30; Stop 07/25/20 at 03:29; Status UNV Info (Icu Electrolyte Protocol) 1 ea CONT PRN PRN MC SEE COMMENTS; Start 07/24/20 at 15:45 Vancomycin HCl (Vanco Per Pharmacy) 1 each PRN DAILY PRN MC SEE COMMENTS Last administered on 07/26/20at 08:53; Start 07/25/20 at 07:00 Vancomycin HCl 2 gm/Sodium Chloride 500 ml @ 250 mls/hr 1X ONCE IV Last administered on 07/25/20at 07:06; Start 07/25/20 at 07:00; Stop 07/25/20 at 08: 59; Status DC Vancomycin HCl 1.25 gm/Sodium Chloride 250 ml @ 167 mls/hr Q8H IV Last administered on 07/25/20at 22:44; Start 07/25/20 at 15:00; Stop 07/26/20 at 07:31; Status DC Vancomycin HCl (Vancomycin Trough Level) 1 each 1X ONCE MC Last administered on 07/26/20at 06:13; Start 07/26/20 at 06:30; Stop 07/26/20 at 06:31; Status DC Vancomycin HCl 1.5 gm/Sodium Chloride 500 ml @ 250 mls/hr Q8H IV Last administered on 07/26/20at 08:04; Start 07/26/20 at 08:00 Vancomycin HCl (Vancomycin Trough Level) 1 each 1X ONCE MC ; Start 07/27/20 at 07:30; Stop 07/27/20 at 07:31 Vitals/I & O Vital Sign - Last 24 Hours 07/25/20 07/25/20 07/25/20 07/25/20 10:00 11:00 12:00 12:00 Temp 97.5 97.5 Pulse 87 98 103 Resp 22 22 B/P (MAP) 102/68 (79) 109/73 (85) 115/74 (88) Pulse Ox 100 73 100 O2 Delivery Ventilator Ventilator Mechanical Ventilator Ventilator 07/25/20 07/25/20 07/25/20 07/25/20 12:24 13:00 14:00 15:00 Pulse 89 88 90 Resp 22 22 B/P (MAP) 92/57 (69) 105/66 (79) 109/67 (81) Pulse Ox 100 100 100 100 O2 Delivery Ventilator Ventilator Ventilator Ventilator 07/25/20 07/25/20 07/25/20 07/25/20 15:35 16:00 17:00 18:00 Temp 98.0 98.0 Pulse 87 84 85 Resp 22 22 22 B/P (MAP) 107/66 (80) 95/59 (71) 98/70 (79) Pulse Ox 99 99 100 O2 Delivery Mechanical Ventilator Ventilator Ventilator Ventilator 07/25/20 07/25/20 07/25/20 07/25/20 18:30 19:00 20:00 20:00 Temp 99.2 99.2 Pulse 85 92 Resp 22 24 B/P (MAP) 98/60 (73) 109/64 (79) Pulse Ox 99 100 100 O2 Delivery Ventilator Ventilator Mechanical Ventilator Ventilator 07/25/20 07/25/20 07/25/20 07/25/20 20:35 21:00 21:30 22:00 Pulse 97 101 Resp 24 24 B/P (MAP) 105/63 (77) 106/60 (75) Pulse Ox 100 100 100 100 O2 Delivery Ventilator Ventilator Ventilator O2 Flow Rate 15.0 07/25/20 07/25/20 07/25/20 07/25/20 22:41 23:00 23:59 23:59 Temp 99.9 99.9 Pulse 101 99 Resp 24 25 B/P (MAP) 99/55 (70) 114/56 (75) Pulse Ox 100 100 99 O2 Delivery Ventilator Ventilator Mechanical Ventilator O2 Flow Rate 15.0 07/26/20 07/26/20 07/26/20 07/26/20 01:00 01:19 02:00 03:05 Pulse 103 102 108 Resp 24 24 24 B/P (MAP) 94/51 (65) 103/66 (78) 101/54 (70) Pulse Ox 100 100 100 100 O2 Delivery Ventilator Ventilator Ventilator Ventilator 07/26/20 07/26/20 07/26/20 07/26/20 04:00 04:00 04:25 05:04 Temp 99.9 99.9 Pulse 102 108 Resp 24 24 B/P (MAP) 101/54 (70) 100/60 (73) Pulse Ox 100 100 100 O2 Delivery Mechanical Ventilator Ventilator Ventilator Ventilator 07/26/20 07/26/20 07/26/20 07/26/20 06:01 07:00 07:56 08:00 Pulse 103 102 Resp 24 24 B/P (MAP) 100/76 (84) 94/53 (67) Pulse Ox 100 100 100 O2 Delivery Ventilator Ventilator Ventilator Mechanical Ventilator 07/26/20 07/26/20 08:00 09:00 Temp 102.4 102.4 Pulse 100 94 Resp 35 35 B/P (MAP) 98/56 (70) 98/52 (67) Pulse Ox 100 99 O2 Delivery Ventilator Ventilator Intake and Output 07/25/20 07/25/20 07/26/20 15:00 23:00 07:00 Intake Total 1166 ml 268 ml 450 ml Output Total 285 ml 480 ml 550 ml Balance 881 ml -212 ml -100 ml Justicifation of Admission Dx: Justifications for Admission: Justification of Admission Dx: Yes REESE CASEY MD Jul 26, 2020 09:31
--- NOTE | 2020-07-26 10:55 | PDOC ---
Infectious Disease Note Subjective: Subjective Patient sedated /intubated Febrile at 102 this a.m. Vital Signs: Vital Signs Vital Signs Date Time Temp Pulse Resp B/P (MAP) Pulse Ox O2 Delivery O2 Flow Rate FiO2 07/26/20 10:15 99.9 86 24 97/55 (69) 97 Ventilator 15.0 99.9 Physical Exam: PHYSICAL EXAM General intubated/sedated HEENT normocephalic atraumatic, OGT/ETT present LUNGS: Coarse breath sounds anteriorly HEART: S1-S2 no murmurs ABDOMEN: Nondistended, soft bowel sounds present Fernandez in place SKIN: No generalized rash Right upper extremity PICC line clean Neuro intubated/sedated Medications: Inpatient Meds: Current Medications Medications (Trade) Dose Ordered Sig/Natalee Start Time Stop Time Status Last Admin Dose Admin Acetaminophen (Tylenol) 650 mg PRN Q6HRS PRN 07/12/20 12:00 07/26/20 08:34 650 MG Apixaban (Eliquis) 5 mg BID 07/23/20 09:00 07/26/20 08:03 5 MG Ascorbic Acid (Vitamin C) 500 mg Q6HRS 07/04/20 18:00 07/26/20 05:36 500 MG Azithromycin (Zithromax) 500 mg 1X ONCE 07/03/20 19:15 07/03/20 19:19 DC 07/03/20 20:11 500 MG Ceftriaxone Sodium (Rocephin) 1 gm 1X ONCE 07/03/20 19:15 07/03/20 19:19 DC 07/03/20 20:11 1 GM Dextrose (Dextrose 50%-Water Syringe) 12.5 gm PRN Q15MIN PRN 07/05/20 14:15 Enoxaparin Sodium (Lovenox 150mg Syringe) 150 mg 1X ONCE 07/03/20 23:00 07/03/20 23:01 DC 07/03/20 22:45 150 MG Etomidate (Amidate) 10 mg 1X ONCE 07/04/20 09:30 07/04/20 09:31 DC 07/04/20 09:37 10 MG Fentanyl Citrate 55 ml @ 0 mls/hr CONT PRN 07/04/20 14:45 07/25/20 21:30 3 MLS/HR Furosemide (Lasix) 40 mg 1X ONCE 07/19/20 00:45 11/26/20 00:46 DC 07/19/20 00:55 40 MG Heparin Sodium (Porcine) (Heparin Sodium) 1,250 unit PRN Q6HRS PRN 07/04/20 12:00 07/16/20 12:09 DC 07/05/20 18:27 1,250 UNIT Heparin Sodium/ Dextrose 250 ml @ 0 mls/hr CONT PRN 07/04/20 12:00 07/16/20 12:09 DC 07/15/20 02:09 14.9 MLS/HR Info (Anti-Coagulation Monitoring By Pharmacy) 1 each PRN DAILY PRN 07/16/20 08:15 07/26/20 08:59 1 EACH Info (CONTRAST GIVEN -- Rx MONITORING) 1 each PRN DAILY PRN 07/03/20 20:45 07/05/20 20:44 DC Info (Icu Electrolyte Protocol) 1 ea CONT PRN PRN 07/24/20 15:45 Insulin Human Lispro (HumaLOG) 0-9 UNITS Q6HRS 07/13/20 12:00 07/25/20 11:49 4 UNITS Iohexol (Omnipaque 350 Mg/ml) 90 ml 1X ONCE 07/03/20 20:45 07/03/20 20:46 DC 07/03/20 21:00 90 ML Lorazepam (Ativan Inj) 2 mg PRN Q1HR PRN 07/21/20 12:30 07/24/20 06:51 2 MG Magnesium Sulfate 100 ml @ 50 mls/hr DAILY 07/25/20 09:00 07/28/20 08:59 UNV Methylprednisolone Sodium Succinate (SOLU-Medrol 40MG VIAL) 40 mg DAILY 07/21/20 09:00 07/22/20 09:36 DC 07/22/20 09:08 40 MG Midazolam HCl (Versed) 5 mg STK-MED ONCE 07/04/20 09:21 07/04/20 09:21 DC Morphine Sulfate (Morphine Sulfate) 2 mg PRN Q2HR PRN 07/03/20 22:30 07/04/20 22:29 DC Multi-Ingred Cream/Lotion/Oil/ Oint (Artificial Tears Eye Ointment) 1 wenceslao PRN Q1HR PRN 07/18/20 10:45 Norepinephrine Bitartrate 8 mg/ Dextrose 258 ml @ 16.061 mls/ hr CONT PRN 07/04/20 13:15 07/18/20 11:01 DC 07/05/20 00:33 28.909 MLS/HR Ondansetron HCl (Zofran) 4 mg PRN Q8HRS PRN 07/03/20 22:30 07/04/20 22:29 DC Pantoprazole Sodium (PROTONIX VIAL for IV PUSH) 40 mg DAILYAC 07/04/20 12:30 07/26/20 08:03 40 MG Piperacillin Sod/ Tazobactam Sod (Zosyn Per Pharmacy) 1 each PRN DAILY PRN 07/04/20 12:00 07/18/20 07:46 DC Piperacillin Sod/ Tazobactam Sod 3.375 gm/Sodium Chloride 50 ml @ 100 mls/hr Q6HRS 07/04/20 12:00 07/17/20 11:11 DC 07/17/20 05:10 100 MLS/HR Piperacillin Sod/ Tazobactam Sod 4.5 gm/Sodium Chloride 100 ml @ 200 mls/hr Q6HRS 07/24/20 12:00 07/26/20 05:36 200 MLS/HR Potassium Chloride/Water 100 ml @ 100 mls/hr Q1HR 07/24/20 16:00 07/24/20 21:59 UNV Potassium Phosphate 13.6 mmol/Sodium Chloride 254.5333 ml @ 62.5 mls/hr Q4H 07/24/20 15:30 07/25/20 03:29 UNV Propofol 100 ml @ 0 mls/hr CONT PRN 07/04/20 09:15 07/25/20 13:17 5 MLS/HR Remdesivir 100 mg/ Sodium Chloride 230 ml @ 460 mls/hr Q24H 07/07/20 14:30 07/10/20 14:59 DC 07/10/20 13:59 460 MLS/HR Remdesivir 200 mg/ Sodium Chloride 210 ml @ 210 mls/hr 1X ONCE 07/06/20 14:30 07/06/20 15:29 DC 07/06/20 14:51 210 MLS/HR Sodium Chloride 1,000 ml @ 100 mls/hr Q10H 07/03/20 23:00 07/04/20 22:59 DC 07/05/20 00:35 100 MLS/HR Sodium Phosphate 20 mmol/Sodium Chloride 256.6667 ml @ 62.5 mls/hr 1X ONCE 07/24/20 15:30 07/24/20 19:36 UNV Sodium Phosphate 30 mmol/Sodium Chloride 260 ml @ 62.5 mls/hr 1X ONCE 07/24/20 15:30 07/24/20 19:39 UNV Succinylcholine Chloride (Anectine) 200 mg 1X ONCE 07/04/20 09:30 07/04/20 09:31 DC 07/04/20 09:38 200 MG Throat Lozenges (Cepacol Sore Throat Lozenge) 1 lety PRN Q2HRS PRN 07/04/20 01:15 Vancomycin HCl (Vanco Per Pharmacy) 1 each PRN DAILY PRN 07/25/20 07:00 07/26/20 08:53 1 EACH Vancomycin HCl (Vancomycin Trough Level) 1 each 1X ONCE 07/27/20 07:30 07/27/20 07:31 Vancomycin HCl 1.25 gm/Sodium Chloride 250 ml @ 167 mls/hr Q8H 07/25/20 15:00 07/26/20 07:31 DC 07/25/20 22:44 167 MLS/HR Vancomycin HCl 1.5 gm/Sodium Chloride 500 ml @ 250 mls/hr Q8H 07/26/20 08:00 07/26/20 08:04 250 MLS/HR Vancomycin HCl 2 gm/Sodium Chloride 500 ml @ 250 mls/hr 1X ONCE 07/25/20 07:00 07/25/20 08:59 DC 07/25/20 07:06 250 MLS/HR Vecuronium [place] 50 mg/ Miscellaneous 50 ml @ 4.094 mls/ hr CONT PRN 07/12/20 14:45 07/22/20 09:34 DC 07/18/20 01:56 7.5 MLS/HR Vecuronium [place] (Norcuron Bolus) 6 mg PRN Q6HRS PRN 07/22/20 12:00 07/22/20 12:02 6 MG Vitamin D (Vitamin D3) 5,000 unit DAILY 07/05/20 09:00 07/25/20 09:46 5,000 UNIT Zinc Sulfate (Orazinc) 220 mg DAILY 07/05/20 09:00 07/26/20 08:03 220 MG Labs: Lab Laboratory Tests Test 07/25/20 11:45 07/25/20 17:14 07/26/20 06:10 Glucose (Fingerstick) 162 mg/dL (70-99) 136 mg/dL (70-99) White Blood Count 11.3 x10^3/uL (4.0-11.0) Red Blood Count 2.83 x10^6/uL (4.30-5.70) Hemoglobin 9.7 g/dL (13.0-17.5) Hematocrit 28.1 % (39.0-53.0) Mean Corpuscular Volume 99 fL (79-100) Mean Corpuscular Hemoglobin 34 pg (25-35) Mean Corpuscular Hemoglobin Concent 34 g/dL (31-37) Red Cell Distribution Width 14.6 % (11.5-14.5) Platelet Count 156 x10^3/uL (140-400) Neutrophils (%) (Auto) 90 % (31-73) Lymphocytes (%) (Auto) 5 % (24-48) Monocytes (%) (Auto) 3 % (0-9) Eosinophils (%) (Auto) 2 % (0-3) Basophils (%) (Auto) 0 % (0-3) Neutrophils # (Auto) 10.1 x10^3/uL (1.8-7.7) Lymphocytes # (Auto) 0.6 x10^3/uL (1.0-4.8) Monocytes # (Auto) 0.3 x10^3/uL (0.0-1.1) Eosinophils # (Auto) 0.2 x10^3/uL (0.0-0.7) Basophils # (Auto) 0.0 x10^3/uL (0.0-0.2) Sodium Level 133 mmol/L (136-145) Potassium Level 3.6 mmol/L (3.5-5.1) Chloride Level 97 mmol/L (98-107) Carbon Dioxide Level 33 mmol/L (21-32) Anion Gap 3 (6-14) Blood Urea Nitrogen 12 mg/dL (8-26) Creatinine 0.6 mg/dL (0.7-1.3) Estimated GFR (Cockcroft-Gault) 142.6 BUN/Creatinine Ratio 20 (6-20) Glucose Level 163 mg/dL (70-99) Calcium Level 8.2 mg/dL (8.5-10.1) Total Bilirubin 0.7 mg/dL (0.2-1.0) Aspartate Amino Transf (AST/SGOT) 12 U/L (15-37) Alanine Aminotransferase (ALT/SGPT) 26 U/L (16-63) Alkaline Phosphatase 115 U/L (46-116) Total Protein 5.5 g/dL (6.4-8.2) Albumin 1.4 g/dL (3.4-5.0) Albumin/Globulin Ratio 0.3 (1.0-1.7) Vancomycin Level Trough 7.2 mcg/mL (10.0-20.0) Vancomycin Last Dose Date 07/25/20 Vancomycin Last Dose Time 2300 Objective: Assessment: Fever Leukocytosis COVID-19 positive. Status post remdesivir, steroids Acute hypoxic respiratory failure/ARDS /pneumonia Bilateral pulmonary emboli. Hypertension. Bacteremia 07/23 1/2 bottles GPC Enterobacter UTI Plan: Plan of Care Change Zosyn to meropenem IV Vanc per pharmacy Monitor renal func closely F/U GPC in BC DC Jim Repeat BC in am Status post steroids Status post remdesivir Monitor labs and cultures Critically ill JAMI ROTHMAN MD Jul 26, 2020 10:55
[2020-07-26] MEDS: MEROPENEM 500 MG in IV NORMAL SALINE 50ML 50 ML IV SCH ×2 (12:02→17:24)
--- NOTE | 2020-07-26 12:16 | PDOC2 ---
CONSULT Date of Consult Date of Consult DATE: 07/26/20 TIME: 12:12 Reason for Consult Reason for Consult: Respiratory failure Referring Physician Referring Physician: Dr. Braden Identification/Chief Complaint Chief Complaint none Source Source: Chart review History of Present Illness Reason for Visit: 49 yo M with respiratory failure. Pt currently orally intubated. Past Medical History Cardiovascular: HTN Past Surgical History Past Surgical History: No pertinent history Family History Family History: Family History Unknown Social History No ALCOHOL: occassional Drugs: None Lives: with Family Current Problem List Problem List Problems Medical Problems: (1) Acute respiratory failure with hypoxia Status: Acute (2) PRIYA (acute kidney injury) Status: Acute (3) Elevated troponin I level Status: Acute (4) Pulmonary emboli Status: Acute (5) Suspected COVID-19 virus infection Status: Acute Current Medications Current Medications Current Medications Ceftriaxone Sodium (Rocephin) 1 gm 1X ONCE IVP Last administered on 07/03/20at 20:11; Start 07/03/20 at 19:15; Stop 07/03/20 at 19:19; Status DC Azithromycin (Zithromax) 500 mg 1X ONCE PO Last administered on 07/03/20at 20:11; Start 07/03/20 at 19:15; Stop 07/03/20 at 19:19; Status DC Sodium Chloride 1,000 ml @ 1,000 mls/hr 1X ONCE IV Last administered on 07/03/20at 20:11; Start 07/03/20 at 19:15; Stop 07/03/20 at 20:14; Status DC Sodium Chloride 1,000 ml @ 1,000 mls/hr 1X ONCE IV Last administered on 07/03/20at 19:15; Start 07/03/20 at 19:15; Stop 07/03/20 at 20:14; Status DC Iohexol (Omnipaque 350 Mg/ml) 90 ml 1X ONCE IV Last administered on 07/03/20at 21:00; Start 07/03/20 at 20:45; Stop 07/03/20 at 20:46; Status DC Info (CONTRAST GIVEN -- Rx MONITORING) 1 each PRN DAILY PRN MC SEE COMMENTS; Start 07/03/20 at 20:45; Stop 07/05/20 at 20:44; Status DC Enoxaparin Sodium (Lovenox 150mg Syringe) 150 mg 1X ONCE SQ Last administered on 07/03/20at 22:45; Start 07/03/20 at 23:00; Stop 07/03/20 at 23:01; Status DC Ondansetron HCl (Zofran) 4 mg PRN Q8HRS PRN IV NAUSEA/VOMITING 1ST CHOICE; Start 07/03/20 at 22:30; Stop 07/04/20 at 22:29; Status DC Morphine Sulfate (Morphine Sulfate) 2 mg PRN Q2HR PRN IV SEVERE PAIN 7-10; Start 07/03/20 at 22:30; Stop 07/04/20 at 22:29; Status DC Sodium Chloride 1,000 ml @ 100 mls/hr Q10H IV Last administered on 07/05/20at 00:35; Start 07/03/20 at 23:00; Stop 07/04/20 at 22:59; Status DC Acetaminophen (Tylenol) 650 mg PRN Q4HRS PRN PO FEVER > 100.3'F; Start 07/03/20 at 22:30; Stop 07/04/20 at 22:29; Status DC Throat Lozenges (Cepacol Sore Throat Lozenge) 1 lety PRN Q2HRS PRN PO SORE THROAT; Start 07/04/20 at 01:15 Furosemide (Lasix) 20 mg 1X ONCE IVP Last administered on 07/04/20at 10:10; Start 07/04/20 at 10:00; Stop 07/04/20 at 10:01; Status DC Succinylcholine Chloride (Anectine) 200 mg STK-MED ONCE .ROUTE ; Start 07/04/20 at 09:09; Stop 07/04/20 at 09:09; Status DC Etomidate (Amidate) 20 mg STK-MED ONCE IV ; Start 07/04/20 at 09:09; Stop 07/04/20 at 09:09; Status DC Fentanyl Citrate 30 ml @ 0 mls/hr CONT PRN IV SEE PROTOCOL Last administered on 07/04/20at 09:36; Start 07/04/20 at 09:15; Stop 07/04/20 at 14:36; Status DC Propofol 100 ml @ 0 mls/hr CONT PRN IV SEE PROTOCOL Last administered on 07/25/20at 13:17; Start 07/04/20 at 09:15 Midazolam HCl 100 ml @ 0 mls/hr CONT PRN IV SEE PROTOCOL Last administered on 07/26/20at 00:45; Start 07/04/20 at 09:15 Midazolam HCl (Versed) 5 mg 1X STAT IV Last administered on 07/04/20at 09:41; Start 07/04/20 at 09:21; Stop 07/04/20 at 09:22; Status DC Midazolam HCl (Versed) 5 mg STK-MED ONCE .ROUTE ; Start 07/04/20 at 09:21; Stop 07/04/20 at 09:21; Status DC Etomidate (Amidate) 10 mg 1X ONCE IV Last administered on 07/04/20at 09:37; Start 07/04/20 at 09:30; Stop 07/04/20 at 09:31; Status DC Succinylcholine Chloride (Anectine) 200 mg 1X ONCE IV Last administered on 07/04/20at 09:38; Start 07/04/20 at 09:30; Stop 07/04/20 at 09:31; Status DC Vecuronium Saco (Norcuron Bolus) 6 mg 1X ONCE IV Last administered on 07/04/20at 09:38; Start 07/04/20 at 09:45; Stop 07/04/20 at 09:46; Status DC Vecuronium Saco (Norcuron Bolus) 10 mg STK-MED ONCE IV ; Start 07/04/20 at 09:33; Stop 07/04/20 at 09:33; Status DC Pantoprazole Sodium (PROTONIX VIAL for IV PUSH) 40 mg DAILYAC IVP Last administered on 07/26/20at 08:03; Start 07/04/20 at 12:30 Methylprednisolone Sodium Succinate (SOLU-Medrol 40MG VIAL) 40 mg Q8HRS IV Last administered on 07/11/20at 05:41; Start 07/04/20 at 14:00; Stop 07/11/20 at 11:36; Status DC Piperacillin Sod/ Tazobactam Sod (Zosyn Per Pharmacy) 1 each PRN DAILY PRN MC SEE COMMENTS; Start 07/04/20 at 12:00; Stop 07/18/20 at 07:46; Status DC Heparin Sodium/ Dextrose 250 ml @ 0 mls/hr CONT PRN IV PER PROTOCOL Last administered on 07/15/20at 02:09; Start 07/04/20 at 12:00; Stop 07/16/20 at 12:09; Status DC Heparin Sodium (Porcine) (Heparin Sodium) 2,500 unit PRN Q6HRS PRN IV FOR UFH LEVEL LESS THAN 0.2 Last administered on 07/15/20at 09:19; Start 07/04/20 at 12:00; Stop 07/16/20 at 12:09; Status DC Heparin Sodium (Porcine) (Heparin Sodium) 1,250 unit PRN Q6HRS PRN IV FOR UFH LEVEL 0.2 - 0.29 Last administered on 07/05/20at 18:27; Start 07/04/20 at 12:00; Stop 07/16/20 at 12:09; Status DC Piperacillin Sod/ Tazobactam Sod 3.375 gm/Sodium Chloride 50 ml @ 100 mls/hr Q6HRS IV Last administered on 07/17/20at 05:10; Start 07/04/20 at 12:00; Stop 07/17/20 at 11:11; Status DC Zinc Sulfate (Orazinc) 220 mg DAILY PO Last administered on 07/26/20at 08:03; Start 07/05/20 at 09:00 Ascorbic Acid (Vitamin C) 500 mg Q6HRS PO Last administered on 07/26/20at 12:02; Start 07/04/20 at 18:00 Vitamin D (Vitamin D3) 5,000 unit DAILY PO Last administered on 07/25/20at 09:46 ; Start 07/05/20 at 09:00 Vecuronium Saco (Norcuron Bolus) 6 mg 1X ONCE IV Last administered on 07/04/20at 13:27; Start 07/04/20 at 13:15; Stop 07/04/20 at 13:16; Status DC Norepinephrine Bitartrate 8 mg/ Dextrose 258 ml @ 16.061 mls/ hr CONT PRN IV PER PROTOCOL Last administered on 07/05/20at 00:33; Start 07/04/20 at 13:15; Stop 07/18/20 at 11:01; Status DC Fentanyl Citrate 55 ml @ 0 mls/hr CONT PRN IV SEE PROTOCOL Last administered on 07/25/20at 21:30; Start 07/04/20 at 14:45 Vecuronium Saco (Norcuron Bolus) 6 mg Q4H PRN IV OVERBREATHING VENT/out of sync Last administered on 07/20/20at 12:32; Start 07/04/20 at 16:45; Stop 07/22/20 at 09:34; Status DC Furosemide (Lasix) 40 mg 1X ONCE IVP Last administered on 07/05/20at 14:17; Start 07/05/20 at 13:30; Stop 07/05/20 at 13:31; Status DC Insulin Human Lispro (HumaLOG) 0-5 UNITS Q6HRS SQ Last administered on 09/10/19at 05:42; Start 07/05/20 at 18:00; Stop 07/11/20 at 07:54; Status DC Dextrose (Dextrose 50%-Water Syringe) 12.5 gm PRN Q15MIN PRN IV SEE COMMENTS; Start 07/05/20 at 14:15 Insulin Human Lispro (HumaLOG) 2 units 1X ONCE SQ Last administered on 07/05/20at 14:19; Start 07/05/20 at 14:30; Stop 07/05/20 at 14:31; Status DC Remdesivir 200 mg/ Sodium Chloride 210 ml @ 210 mls/hr 1X ONCE IV Last administered on 07/06/20at 14:51; Start 07/06/20 at 14:30; Stop 07/06/20 at 15:29; Status DC Remdesivir 100 mg/ Sodium Chloride 230 ml @ 460 mls/hr Q24H IV Last administered on 07/10/20at 13:59; Start 07/07/20 at 14:30; Stop 07/10/20 at 14:59; Status DC Insulin Human Lispro (HumaLOG) 0-9 UNITS TIDWMEALS SQ Last administered on 07/12/20at 11:31; Start 07/11/20 at 08:00; Stop 07/13/20 at 10:17; Status DC Methylprednisolone Sodium Succinate (SOLU-Medrol 40MG VIAL) 40 mg DAILY IV Last administered on 07/14/20at 07:57; Start 07/12/20 at 09:00; Stop 07/14/20 at 09:26; Status DC Acetaminophen (Tylenol) 650 mg PRN Q6HRS PRN PEG MILD PAIN / TEMP > 100.3'F Last administered on 07/26/20at 08:34; Start 07/12/20 at 12:00 Vecuronium Saco 50 mg/ Miscellaneous 50 ml @ 4.094 mls/ hr CONT PRN IV SEE I/O RECORD Last administered on 07/18/20at 01:56; Start 07/12/20 at 14:45; Stop 07/22/20 at 09:34; Status DC Insulin Human Lispro (HumaLOG) 0-9 UNITS Q6HRS SQ Last administered on 07/25/20at 11:49; Start 07/13/20 at 12:00 Methylprednisolone Sodium Succinate (SOLU-Medrol 40MG VIAL) 40 mg Q12HR IV Last administered on 07/16/20at 09:57; Start 07/14/20 at 21:00; Stop 07/16/20 at 12:10; Status DC Info (Anti-Coagulation Monitoring By Pharmacy) 1 each PRN DAILY PRN MC SEE COMMENTS Last administered on 07/26/20at 08:59; Start 07/16/20 at 08:15 Apixaban (Eliquis) 10 mg BID PO Last administered on 07/22/20at 20:39; Start 07/16/20 at 13:00; Stop 07/22/20 at 21:01; Status DC Methylprednisolone Sodium Succinate (SOLU-Medrol 40MG VIAL) 40 mg DAILY IV Last administered on 07/16/20at 12:22; Start 07/16/20 at 13:00; Stop 07/17/20 at 08:24; Status DC Apixaban (Eliquis) 5 mg BID PO Last administered on 07/26/20at 08:03; Start 07/23/20 at 09:00 Methylprednisolone Sodium Succinate (SOLU-Medrol 40MG VIAL) 40 mg Q12HR IV Last administered on 07/20/20at 07:54; Start 07/17/20 at 09:00; Stop 07/20/20 at 10:20; Status DC Multi-Ingred Cream/Lotion/Oil/ Oint (Artificial Tears Eye Ointment) 1 wenceslao PRN Q1HR PRN OU DRY EYE; Start 07/18/20 at 10:45 Furosemide (Lasix) 40 mg 1X ONCE IVP Last administered on 07/19/20at 00:55; Start 07/19/20 at 00:45; Stop 07/19/20 at 00:46; Status DC Methylprednisolone Sodium Succinate (SOLU-Medrol 40MG VIAL) 40 mg DAILY IV Last administered on 07/22/20at 09:08; Start 07/21/20 at 09:00; Stop 07/22/20 at 09:36; Status DC Lorazepam (Ativan Inj) 2 mg PRN Q1HR PRN IV SEE COMMENTS Last administered on 07/24/20at 06:51; Start 07/21/20 at 12:30 Vecuronium Saco (Norcuron Bolus) 6 mg PRN Q6HRS PRN IV SEDATION Last administered on 07/22/20at 12:02; Start 07/22/20 at 12:00 Piperacillin Sod/ Tazobactam Sod 4.5 gm/Sodium Chloride 100 ml @ 200 mls/hr Q6HRS IV Last administered on 07/26/20at 05:36; Start 07/24/20 at 12:00; Stop 07/26/20 at 10:53; Status DC Potassium Chloride/Water 100 ml @ 100 mls/hr Q1H IV ; Start 07/24/20 at 15:30; Stop 07/24/20 at 19:29; Status UNV Potassium Chloride/Water 100 ml @ 100 mls/hr Q1H IV ; Start 07/24/20 at 15:30; Stop 07/24/20 at 17:29; Status UNV Potassium Chloride/Water 100 ml @ 100 mls/hr Q1H IV ; Start 07/24/20 at 15:30; Stop 07/24/20 at 23:29; Status UNV Potassium Chloride/Water 100 ml @ 100 mls/hr Q1H IV ; Start 07/24/20 at 15:30; Stop 07/24/20 at 19:29; Status UNV Potassium Chloride/Water 100 ml @ 100 mls/hr Q1H IV ; Start 07/24/20 at 15:30; Stop 07/25/20 at 03:29; Status UNV Potassium Chloride/Water 100 ml @ 100 mls/hr Q1HR IV ; Start 07/24/20 at 16:00; Stop 07/24/20 at 21:59; Status UNV Magnesium Sulfate 100 ml @ 50 mls/hr DAILY IV ; Start 07/25/20 at 09:00; Stop 07/28/20 at 08:59; Status UNV Sodium Phosphate 20 mmol/Sodium Chloride 256.6667 ml @ 62.5 mls/hr 1X ONCE IV ; Start 07/24/20 at 15:30; Stop 07/24/20 at 19:36; Status UNV Sodium Phosphate 30 mmol/Sodium Chloride 260 ml @ 62.5 mls/hr 1X ONCE IV ; Start 07/24/20 at 15:30; Stop 07/24/20 at 19:39; Status UNV Potassium Phosphate 13.6 mmol/Sodium Chloride 254.5333 ml @ 62.5 mls/hr Q4H IV ; Start 07/24/20 at 15:30; Stop 07/25/20 at 03:29; Status UNV Info (Icu Electrolyte Protocol) 1 ea CONT PRN PRN MC SEE COMMENTS; Start 07/24/20 at 15:45 Vancomycin HCl (Vanco Per Pharmacy) 1 each PRN DAILY PRN MC SEE COMMENTS Last administered on 07/26/20at 08:53; Start 07/25/20 at 07:00 Vancomycin HCl 2 gm/Sodium Chloride 500 ml @ 250 mls/hr 1X ONCE IV Last administered on 07/25/20at 07:06; Start 07/25/20 at 07:00; Stop 07/25/20 at 08:59; Status DC Vancomycin HCl 1.25 gm/Sodium Chloride 250 ml @ 167 mls/hr Q8H IV Last administered on 07/25/20at 22:44; Start 07/25/20 at 15:00; Stop 07/26/20 at 07:31; Status DC Vancomycin HCl (Vancomycin Trough Level) 1 each 1X ONCE MC Last administered on 07/26/20at 06:13; Start 07/26/20 at 06:30; Stop 07/26/20 at 06:31; Status DC Vancomycin HCl 1.5 gm/Sodium Chloride 500 ml @ 250 mls/hr Q8H IV Last administered on 07/26/20at 08:04; Start 07/26/20 at 08:00 Vancomycin HCl (Vancomycin Trough Level) 1 each 1X ONCE MC ; Start 07/27/20 at 07:30; Stop 07/27/20 at 07:31 Meropenem 500 mg/ Sodium Chloride 50 ml @ 100 mls/hr Q6HRS IV Last adminis tered on 07/26/20at 12:02; Start 07/26/20 at 12:00 Allergies Allergies: Coded Allergies: No Known Drug Allergies (Unverified , 07/03/20) ROS Review of System unobtainable Physical Exam General: No acute distress HEENT: Other (orally intubated) Vitals VITALS Vital Signs Date Time Temp Pulse Resp B/P (MAP) Pulse Ox O2 Delivery O2 Flow Rate FiO2 07/26/20 11:26 99 Ventilator 07/26/20 11:00 83 32 116/67 (83) 07/26/20 10:15 99.9 15.0 99.9 Labs Labs Laboratory Tests Test 07/24/20 17:29 07/25/20 01:25 07/25/20 04:40 07/25/20 05:24 Glucose (Fingerstick) 136 mg/dL (70-99) 134 mg/dL (70-99) 148 mg/dL (70-99) White Blood Count 17.9 x10^3/uL (4.0-11.0) Red Blood Count 3.23 x10^6/uL (4.30-5.70) Hemoglobin 10.8 g/dL (13.0-17.5) Hematocrit 31.9 % (39.0-53.0) Mean Corpuscular Volume 99 fL (79-100) Mean Corpuscular Hemoglobin 34 pg (25-35) Mean Corpuscular Hemoglobin Concent 34 g/dL (31-37) Red Cell Distribution Width 14.3 % (11.5-14.5) Platelet Count 163 x10^3/uL (140-400) Neutrophils (%) (Auto) 93 % (31-73) Lymphocytes (%) (Auto) 3 % (24-48) Monocytes (%) (Auto) 2 % (0-9) Eosinophils (%) (Auto) 1 % (0-3) Basophils (%) (Auto) 0 % (0-3) Neutrophils # (Auto) 16.7 x10^3/uL (1.8-7.7) Lymphocytes # (Auto) 0.6 x10^3/uL (1.0-4.8) Monocytes # (Auto) 0.3 x10^3/uL (0.0-1.1) Eosinophils # (Auto) 0.3 x10^3/uL (0.0-0.7) Basophils # (Auto) 0.0 x10^3/uL (0.0-0.2) Sodium Level 132 mmol/L (136-145) Potassium Level 3.8 mmol/L (3.5-5.1) Chloride Level 95 mmol/L (98-107) Carbon Dioxide Level 32 mmol/L (21-32) Anion Gap 5 (6-14) Blood Urea Nitrogen 12 mg/dL (8-26) Creatinine 0.4 mg/dL (0.7-1.3) Estimated GFR (Cockcroft-Gault) 227.7 BUN/Creatinine Ratio 30 (6-20) Glucose Level 174 mg/dL (70-99) Calcium Level 8.0 mg/dL (8.5-10.1) Total Bilirubin 0.7 mg/dL (0.2-1.0) Aspartate Amino Transf (AST/SGOT) 13 U/L (15-37) Alanine Aminotransferase (ALT/SGPT) 30 U/L (16-63) Alkaline Phosphatase 102 U/L (46-116) Total Protein 5.6 g/dL (6.4-8.2) Albumin 1.4 g/dL (3.4-5.0) Albumin/Globulin Ratio 0.3 (1.0-1.7) Test 07/25/20 08:00 07/25/20 11:45 07/25/20 17:14 07/26/20 06:10 O2 Saturation 95 % (92-99) Arterial Blood pH 7.44 (7.35-7.45) Arterial Blood pCO2 at Patient Temp 48 mmHg (35-46) Arterial Blood pO2 at Patient Temp 77 mmHg (75-108) Arterial Blood HCO3 32 mmol/L (21-28) Arterial Blood Base Excess 7 mmol/L (-3-3) FiO2 45 Glucose (Fingerstick) 162 mg/dL (70-99) 136 mg/dL (70-99) White Blood Count 11.3 x10^3/uL (4.0-11.0) Red Blood Count 2.83 x10^6/uL (4.30-5.70) Hemoglobin 9.7 g/dL (13.0-17.5) Hematocrit 28.1 % (39.0-53.0) Mean Corpuscular Volume 99 fL (79-100) Mean Corpuscular Hemoglobin 34 pg (25-35) Mean Corpuscular Hemoglobin Concent 34 g/dL (31-37) Red Cell Distribution Width 14.6 % (11.5-14.5) Platelet Count 156 x10^3/uL (140-400) Neutrophils (%) (Auto) 90 % (31-73) Lymphocytes (%) (Auto) 5 % (24-48) Monocytes (%) (Auto) 3 % (0-9) Eosinophils (%) (Auto) 2 % (0-3) Basophils (%) (Auto) 0 % (0-3) Neutrophils # (Auto) 10.1 x10^3/uL (1.8-7.7) Lymphocytes # (Auto) 0.6 x10^3/uL (1.0-4.8) Monocytes # (Auto) 0.3 x10^3/uL (0.0-1.1) Eosinophils # (Auto) 0.2 x10^3/uL (0.0-0.7) Basophils # (Auto) 0.0 x10^3/uL (0.0-0.2) Sodium Level 133 mmol/L (136-145) Potassium Level 3.6 mmol/L (3.5-5.1) Chloride Level 97 mmol/L (98-107) Carbon Dioxide Level 33 mmol/L (21-32) Anion Gap 3 (6-14) Blood Urea Nitrogen 12 mg/dL (8-26) Creatinine 0.6 mg/dL (0.7-1.3) Estimated GFR (Cockcroft-Gault) 142.6 BUN/Creatinine Ratio 20 (6-20) Glucose Level 163 mg/dL (70-99) Calcium Level 8.2 mg/dL (8.5-10.1) Total Bilirubin 0.7 mg/dL (0.2-1.0) Aspartate Amino Transf (AST/SGOT) 12 U/L (15-37) Alanine Aminotransferase (ALT/SGPT) 26 U/L (16-63) Alkaline Phosphatase 115 U/L (46-116) Total Protein 5.5 g/dL (6.4-8.2) Albumin 1.4 g/dL (3.4-5.0) Albumin/Globulin Ratio 0.3 (1.0-1.7) Vancomycin Level Trough 7.2 mcg/mL (10.0-20.0) Vancomycin Last Dose Date 07/25/20 Vancomycin Last Dose Time 2300 Laboratory Tests Test 07/25/20 17:14 07/26/20 06:10 Glucose (Fingerstick) 136 mg/dL (70-99) White Blood Count 11.3 x10^3/uL (4.0-11.0) Red Blood Count 2.83 x10^6/uL (4.30-5.70) Hemoglobin 9.7 g/dL (13.0-17.5) Hematocrit 28.1 % (39.0-53.0) Mean Corpuscular Volume 99 fL (79-100) Mean Corpuscular Hemoglobin 34 pg (25-35) Mean Corpuscular Hemoglobin Concent 34 g/dL (31-37) Red Cell Distribution Width 14.6 % (11.5-14.5) Platelet Count 156 x10^3/uL (140-400) Neutrophils (%) (Auto) 90 % (31-73) Lymphocytes (%) (Auto) 5 % (24-48) Monocytes (%) (Auto) 3 % (0-9) Eosinophils (%) (Auto) 2 % (0-3) Basophils (%) (Auto) 0 % (0-3) Neutrophils # (Auto) 10.1 x10^3/uL (1.8-7.7) Lymphocytes # (Auto) 0.6 x10^3/uL (1.0-4.8) Monocytes # (Auto) 0.3 x10^3/uL (0.0-1.1) Eosinophils # (Auto) 0.2 x10^3/uL (0.0-0.7) Basophils # (Auto) 0.0 x10^3/uL (0.0-0.2) Sodium Level 133 mmol/L (136-145) Potassium Level 3.6 mmol/L (3.5-5.1) Chloride Level 97 mmol/L (98-107) Carbon Dioxide Level 33 mmol/L (21-32) Anion Gap 3 (6-14) Blood Urea Nitrogen 12 mg/dL (8-26) Creatinine 0.6 mg/dL (0.7-1.3) Estimated GFR (Cockcroft-Gault) 142.6 BUN/Creatinine Ratio 20 (6-20) Glucose Level 163 mg/dL (70-99) Calcium Level 8.2 mg/dL (8.5-10.1) Total Bilirubin 0.7 mg/dL (0.2-1.0) Aspartate Amino Transf (AST/SGOT) 12 U/L (15-37) Alanine Aminotransferase (ALT/SGPT) 26 U/L (16-63) Alkaline Phosphatase 115 U/L (46-116) Total Protein 5.5 g/dL (6.4-8.2) Albumin 1.4 g/dL (3.4-5.0) Albumin/Globulin Ratio 0.3 (1.0-1.7) Vancomycin Level Trough 7.2 mcg/mL (10.0-20.0) Vancomycin Last Dose Date 07/25/20 Vancomycin Last Dose Time 2300 Assessment/Plan Assessment/Plan Respiratory failure cont care per pulm if unable to wean from ventilator, will consider tracheostomy. Thanks for consult! BRETT MCGEE MD Jul 26, 2020 12:16
[2020-07-26] MEDS: fentaNYL HIGH DOSE PCA 55 ML IV PRN (14:13)
--- NOTE | 2020-07-26 14:22 | NUR ---
SS following up with discharge planning. SS reviewed pt chart and discussed with pt RN. Pt is currently on the vent at 45%. COVID19 positive. Pt on IV Vancomycin and IV Meropenem. Not stable. SS will continue to follow for discharge planning.
[2020-07-26] MEDS: PROPOFOL 100 ML IV PRN ×2 (18:24→20:32)
--- NOTE | 2020-07-26 21:10 | NUR ---
Spoke to patient's son, Pancho at 2039 regarding his and patient's request to transfer patient to [facility]. Explained to son procedure for transfer: patient's physician must agree to transfer patient, an [facility] physician to accept care of patient and the hospital agrees to lateral transfer. Son insistent that patient transfer tonight; explained that patient's physician will be notified as will the nursing thermostatic controls supervisor--son agreeable. Paged Dr Valentin, returned page at 2049, notified of above and updated on patient need for increased O2; patient refused to wear BiPap and oxygen now at 15L High flow NC with O2 saturation of 88-93%. Orders received to change status to ICU for the night secondary to increased O2 need and patient not stable to transfer to another hospital tonight but can be reevaluated in am. Nursing Dermatology Teacher spoke to [facility] Dermatology Teacher who states they are not accepting lateral transfer at this point. Called Pancho at [phone], notified of physicians orders and [facility] refusing patient. Pancho verbalized understanding and stated he is just trying to help his mom; he also verbalized he and his are also Covid +. Notified patient's oxygen saturation is much improved and if she worsens we will call with an update or he can call later for an update. Addendum: 07/26/20 at 2153 by FARHAN LEIGH RN Disregard note--charted on wrong patient.
[2020-07-27] VITALS (27 sets, daily range): BP systolic 90–131; BP diastolic 46–80
[2020-07-27] MEDS: ASCORBIC ACID 500 MG TABLET PO SCH ×4 (00:07→17:19)
[2020-07-27] MEDS: MEROPENEM 500 MG in IV NORMAL SALINE 50ML 50 ML IV SCH ×4 (00:07→18:13)
[2020-07-27] MEDS: INSULIN LISPRO 300 UNITS/3 ML VIAL. SQ SCH ×3 (00:15→18:17)
[2020-07-27 06:36] LABS: BASO % 0 % (0-3); EOS # 0.3 x10^3/uL (0.0-0.7); EOS % 3 % (0-3); LYMPH # 0.7 x10^3/uL (1.0-4.8); LYMPH % 7 % (24-48); MEAN CORPUSCULAR HEMOGLOBIN 36 pg (25-35); MEAN CORPUSCULAR HGB CONC 37 g/dL (31-37); MEAN CORPUSCULAR VOLUME 99 fL (79-100); MONO # 0.5 x10^3/uL (0.0-1.1); MONO % 5 % (0-9); NEUT % 85 % (31-73); PLATELET COUNT 208 x10^3/uL (140-400); RED BLOOD COUNT 1.79 x10^6/uL (4.30-5.70); RED CELL DISTRIBUTION WIDTH 14.4 % (11.5-14.5); WHITE BLOOD COUNT 10.6 x10^3/uL (4.0-11.0)
[2020-07-27 06:47] LABS: HEMATOCRIT 17.8 % (39.0-53.0); HEMOGLOBIN 6.5 g/dL (13.0-17.5)
[2020-07-27 06:54] LABS: ALBUMIN 1.4 g/dL (3.4-5.0); ALBUMIN/GLOBULIN RATIO 0.3 (1.0-1.7); ALK PHOS 145 U/L (46-116); ALT (SGPT) 33 U/L (16-63); ANION GAP 5 (6-14); AST (SGOT) 22 U/L (15-37); BLOOD UREA NITROGEN 8 mg/dL (8-26); BUN/CREATININE RATIO 27 (6-20); CALCIUM 8.3 mg/dL (8.5-10.1); CARBON DIOXIDE 30 mmol/L (21-32); CHLORIDE 96 mmol/L (98-107); CREATININE 0.3 mg/dL (0.7-1.3); GFR > 300.0; GLUCOSE 114 mg/dL (70-99); SODIUM 131 mmol/L (136-145); TOTAL BILIRUBIN 0.6 mg/dL (0.2-1.0); TOTAL PROTEIN 5.7 g/dL (6.4-8.2)
[2020-07-27] MEDS: PROPOFOL 100 ML IV PRN ×2 (07:56→15:00)
[2020-07-27] MEDS: PANTOPRAZOLE IV PUSH 40 MG VIAL. IVP SCH (07:57)
[2020-07-27] MEDS: fentaNYL HIGH DOSE PCA 55 ML IV PRN ×2 (07:57→23:20)
[2020-07-27] MEDS: ZINC SULFATE 220 MG CAPSULE. PO SCH (07:58)
[2020-07-27] MEDS: CHOLECALCIFEROL (VITAMIN D3) 5,000 UNIT CAPSULE PO SCH (07:58)
[2020-07-27 08:07] LABS: BASE EXCESS ABG 4 mmol/L (-3-3); CORRECTED PCO2 ABG 51 mmHg; CORRECTED PH ABG 7.39; CORRECTED PO2 ABG 76 mmHg; HCO3 ABG 30 mmol/L (21-28); PCO2 ABG 47 mmHg (35-46); PO2 ABG 69 mmHg (75-108); SAT O2 ABG 92 % (92-99)
[2020-07-27 08:08] LABS: FIO2 ABG 45 Vent
[2020-07-27] MEDS: MIDAZOLAM 100mg/100ml NS BAG 100 ML IV PRN ×2 (08:29→18:14)
--- NOTE | 2020-07-27 08:31 | PDOC ---
PROGRESS NOTES Date of Service: DATE: 07/27/20 TIME: 08:31 Chief Complaint Chief Complaint IMPRESSION Acute hypoxic respiratory failure requiring VENT SUPPORT Acute hypoxic respiratory failure/ARDS /pneumonia Bilateral perihilar and basilar opacities, progressed in the left base. 07-26 COVID-19 Subsegmental bilateral PE Leukocytosis NSTEMI AKA Lactic acidosis Hyponatremia, RESOLVED hgb 6.5 07-27, transfused 1 unit prbc's hyp[okalemia, on replacement Plan: Appreciate pulmonology recommendations Continue current ventilatory support, currently on 70% and PEEP of 6, avoid increasing PEEP 2/2 risk of barotrauma Follow chest x-ray and ABG, vent management as per pulmonology Heparin has been transitioned to Xarelto Solu-Medrol 40 mg every 12 hours Appreciate ID recommendationscontinue Remdesivir and empiric antibiotics IV fluids Discussed with RN and SW. Antibiotics per ID-- off ABX, infectious disease following increasing leukocyt osis has completed full course of remdesivir continue tube feeding for nutritional support 33 MIN CC TIME History of Present Illness History of Present Illness t max 102 f fio2 50% 07/21/2020 Patient no acute events reported overnight. Patient continues to require a lot of support from vent. Discussed with RN 09/19/2019 Patient continues to be pretty much the same , fio2 is at 70%, heparin 07/19/2020 Patient hypotensive today, we will follow recommendations from critical anesthesiologist and critical care. Vent management as per media consultant, no other complaints. 07/18/2020 Patient with no acute events reported overnight, fio2 is now at 75% PEEP of 6, Vent management as per pulmonary media consultant slight increase in temperature noted over the lat 24 hours. Will continue to follow 07/17/2020 Patient with no acute events reported overnight, contineus to require an fio2 of 80%, continue with supportive measures. 07/16/2020 Patient with no acute events reported overnight, patient continues to require quite a bit of FiO2 at 80%. Vent management as per media consultant, will place a call to family members after rounding. Discussed with RN 07/15/2020 Patient seen and examined bedside in the ICU. FiO2 80% PEEP of 6.pH 7.56, PCO2 32, PO2 56, HCO3 28. Will adjust respiratory rate accordingly to correct pH.> 50% time spent in patient chart, labs, and imaging review and in discussion with RN and SW 07/14/2020 Patient seen and examined bedside. FiO2 65% and PEEP of 6 on vent. ABG: pH 7.26, PCO2 77, PO2 114, HCO3 34. We will adjust respiratory rate or tidal volume to titrate pH.> 50% time spent in patient chart, labs, and imaging review and in discussion with RN and JAVIER 07/13/2020 No acute events overnight. Patient examined bedside sedated and intubated. FiO2 70% PEEP of 6. Improved ABGs.> 50% time spent in patient chart, labs, and imaging review and in discussion with RN and JAVIER 07/12/2020 Patient seen and examined in the ICU. Sedated and intubated. FiO2 65, PEEP of 8 with improved oxygenation. pH 7.4, PCO2 48, PO2 94, HCO3 30. +500 cc fluid balance.> 50% time spent in patient chart, labs, and imaging review and in discussion with RN and JAVIER 07/11/2020 Patient seen and examined bedside in the ICU. Patient continues to be intubated and sedated. FiO2 75%, PEEP of 10. pH 7.40, PCO2 44, PO2 is 135, HCO3 26. Can likely decrease FiO2 due to improved oxygenation. +173 cc in the past 24 hours 07/10/2020 Patient seen and examined bedside in ICU. Patient is intubated and sedated. FiO2 90%, PEEP of 10, respiratory rate of 30. ABG: pH is 7.41, PCO2 42, PO2 113, HCO3 26. 07/09/2020 Patient seen and examined in the ICU. Intubated and sedated. Vent settings FiO2 90%, PEEP of 10, respiratory rate of 30. 07/05: Patient seen in ICU, still intubated and sedated. COVID-19 pending. Patient remains on heparin infusion. Discussed with RN, will try to have centr al line placed per anesthesia. 07/06: Patient seen in ICU. Still FiO2 100% on vent and sedated. COVID-19 positive. Continue heparin infusion, Zosyn, steroids. 07/07: Covid positive patient seen in ICU. On vent with FiO2 100%, PEEP 10. Continue remdesivir, steroids, Zosyn. Continue to monitor 07/08: Patient seen in Covid ICU. Still on vent with FiO2 100%, PEEP 10. Afebrile. No acute events overnight. Continue steroids, antibiotics, and remdesivir. Patient is 49-year-old male with past medical history of hypertension, who presents to the ED with complaints of worsening shortness of breath over the past 5 days. Associated sore throat, fatigue, and generalized weakness. Patient was reportedly tested for COVID-19 last Thursday, but he had negative test results. His symptoms acutely worsened yesterday. Upon arrival to the ER his oxygen saturation was 60% on room air. He was placed on BiPAP and admitted to the ICU. Patient was subsequently intubated due to worsening respiratory failure. Vitals Vitals Vital Signs Date Time Temp Pulse Resp B/P (MAP) Pulse Ox O2 Delivery O2 Flow Rate FiO2 07/27/20 08:25 Mechanical Ventilator 07/27/20 08:00 101.5 94 27 131/79 (96) 100 101.5 07/26/20 10:15 15.0 Physical Exam Physical Exam General intubated/sedated HEENT normocephalic atraumatic, OGT/ETT present LUNGS: Coarse breath sounds anteriorly HEART: S1-S2 no murmurs ABDOMEN: Nondistended, soft bowel sounds present Fernandez in place SKIN: No generalized rash Right upper extremity PICC line clean Neuro intubated/sedated General: No acute distress Heart: Regular rate (SR/ST) Lungs: Other (orally intubated, clear ) Abdomen: Other (Nondistended) Extremities: No clubbing, No cyanosis Skin: No rashes, No breakdown Labs LABS Laboratory Tests Test 07/26/20 12:07 07/26/20 17:29 07/27/20 00:15 07/27/20 06:00 Glucose (Fingerstick) 149 mg/dL (70-99) 121 mg/dL (70-99) 119 mg/dL (70-99) White Blood Count 10.6 x10^3/uL (4.0-11.0) Red Blood Count 1.79 x10^6/uL (4.30-5.70) Hemoglobin 6.5 g/dL (13.0-17.5) Hematocrit 17.8 % (39.0-53.0) Mean Corpuscular Volume 99 fL (79-100) Mean Corpuscular Hemoglobin 36 pg (25-35) Mean Corpuscular Hemoglobin Concent 37 g/dL (31-37) Red Cell Distribution Width 14.4 % (11.5-14.5) Platelet Count 208 x10^3/uL (140-400) Neutrophils (%) (Auto) 85 % (31-73) Lymphocytes (%) (Auto) 7 % (24-48) Monocytes (%) (Auto) 5 % (0-9) Eosinophils (%) (Auto) 3 % (0-3) Basophils (%) (Auto) 0 % (0-3) Neutrophils # (Auto) 9.0 x10^3/uL (1.8-7.7) Lymphocytes # (Auto) 0.7 x10^3/uL (1.0-4.8) Monocytes # (Auto) 0.5 x10^3/uL (0.0-1.1) Eosinophils # (Auto) 0.3 x10^3/uL (0.0-0.7) Basophils # (Auto) 0.0 x10^3/uL (0.0-0.2) Sodium Level 131 mmol/L (136-145) Potassium Level 3.0 mmol/L (3.5-5.1) Chloride Level 96 mmol/L (98-107) Carbon Dioxide Level 30 mmol/L (21-32) Anion Gap 5 (6-14) Blood Urea Nitrogen 8 mg/dL (8-26) Creatinine 0.3 mg/dL (0.7-1.3) Estimated GFR (Cockcroft-Gault) > 300.0 BUN/Creatinine Ratio 27 (6-20) Glucose Level 114 mg/dL (70-99) Calcium Level 8.3 mg/dL (8.5-10.1) Total Bilirubin 0.6 mg/dL (0.2-1.0) Aspartate Amino Transf (AST/SGOT) 22 U/L (15-37) Alanine Aminotransferase (ALT/SGPT) 33 U/L (16-63) Alkaline Phosphatase 145 U/L (46-116) Total Protein 5.7 g/dL (6.4-8.2) Albumin 1.4 g/dL (3.4-5.0) Albumin/Globulin Ratio 0.3 (1.0-1.7) Test 07/27/20 08:05 O2 Saturation 92 % (92-99) Arterial Blood pH 7.41 (7.35-7.45) Arterial Blood pH (Temp corrected) 7.39 Arterial Blood pCO2 at Patient Temp 47 mmHg (35-46) Arterial Blood pCO2 (Temp correct) 51 mmHg Arterial Blood pO2 at Patient Temp 69 mmHg (75-108) Arterial Blood pO2 (Temp corrected) 76 mmHg Arterial Blood HCO3 30 mmol/L (21-28) Arterial Blood Base Excess 4 mmol/L (-3-3) FiO2 45 vent Assessment and Plan Assessmemt and Plan Problems Medical Problems: (1) Acute respiratory failure with hypoxia Status: Acute (2) PRIYA (acute kidney injury) Status: Acute (3) Elevated troponin I level Status: Acute (4) Pulmonary emboli Status: Acute (5) Suspected COVID-19 virus infection Status: Acute Comment Review of Relevant I have reviewed the following items trino (where applicable) has been applied. Labs Laboratory Tests Test 07/25/20 11:45 07/25/20 17:14 07/26/20 06:10 07/26/20 12:07 Glucose (Fingerstick) 162 mg/dL (70-99) 136 mg/dL (70-99) 149 mg/dL (70-99) White Blood Count 11.3 x10^3/uL (4.0-11.0) Red Blood Count 2.83 x10^6/uL (4.30-5.70) Hemoglobin 9.7 g/dL (13.0-17.5) Hematocrit 28.1 % (39.0-53.0) Mean Corpuscular Volume 99 fL (79-100) Mean Corpuscular Hemoglobin 34 pg (25-35) Mean Corpuscular Hemoglobin Concent 34 g/dL (31-37) Red Cell Distribution Width 14.6 % (11.5-14.5) Platelet Count 156 x10^3/uL (140-400) Neutrophils (%) (Auto) 90 % (31-73) Lymphocytes (%) (Auto) 5 % (24-48) Monocytes (%) (Auto) 3 % (0-9) Eosinophils (%) (Auto) 2 % (0-3) Basophils (%) (Auto) 0 % (0-3) Neutrophils # (Auto) 10.1 x10^3/uL (1.8-7.7) Lymphocytes # (Auto) 0.6 x10^3/uL (1.0-4.8) Monocytes # (Auto) 0.3 x10^3/uL (0.0-1.1) Eosinophils # (Auto) 0.2 x10^3/uL (0.0-0.7) Basophils # (Auto) 0.0 x10^3/uL (0.0-0.2) Sodium Level 133 mmol/L (136-145) Potassium Level 3.6 mmol/L (3.5-5.1) Chloride Level 97 mmol/L (98-107) Carbon Dioxide Level 33 mmol/L (21-32) Anion Gap 3 (6-14) Blood Urea Nitrogen 12 mg/dL (8-26) Creatinine 0.6 mg/dL (0.7-1.3) Estimated GFR (Cockcroft-Gault) 142.6 BUN/Creatinine Ratio 20 (6-20) Glucose Level 163 mg/dL (70-99) Calcium Level 8.2 mg/dL (8.5-10.1) Total Bilirubin 0.7 mg/dL (0.2-1.0) Aspartate Amino Transf (AST/SGOT) 12 U/L (15-37) Alanine Aminotransferase (ALT/SGPT) 26 U/L (16-63) Alkaline Phosphatase 115 U/L (46-116) Total Protein 5.5 g/dL (6.4-8.2) Albumin 1.4 g/dL (3.4-5.0) Albumin/Globulin Ratio 0.3 (1.0-1.7) Vancomycin Level Trough 7.2 mcg/mL (10.0-20.0) Vancomycin Last Dose Date 07/25/20 Vancomycin Last Dose Time 2300 Test 07/26/20 17:29 07/27/20 00:15 07/27/20 06:00 07/27/20 08:05 Glucose (Fingerstick) 121 mg/dL (70-99) 119 mg/dL (70-99) White Blood Count 10.6 x10^3/uL (4.0-11.0) Red Blood Count 1.79 x10^6/uL (4.30-5.70) Hemoglobin 6.5 g/dL (13.0-17.5) Hematocrit 17.8 % (39.0-53.0) Mean Corpuscular Volume 99 fL (79-100) Mean Corpuscular Hemoglobin 36 pg (25-35) Mean Corpuscular Hemoglobin Concent 37 g/dL (31-37) Red Cell Distribution Width 14.4 % (11.5-14.5) Platelet Count 208 x10^3/uL (140-400) Neutrophils (%) (Auto) 85 % (31-73) Lymphocytes (%) (Auto) 7 % (24-48) Monocytes (%) (Auto) 5 % (0-9) Eosinophils (%) (Auto) 3 % (0-3) Basophils (%) (Auto) 0 % (0-3) Neutrophils # (Auto) 9.0 x10^3/uL (1.8-7.7) Lymphocytes # (Auto) 0.7 x10^3/uL (1.0-4.8) Monocytes # (Auto) 0.5 x10^3/uL (0.0-1.1) Eosinophils # (Auto) 0.3 x10^3/uL (0.0-0.7) Basophils # (Auto) 0.0 x10^3/uL (0.0-0.2) Sodium Level 131 mmol/L (136-145) Potassium Level 3.0 mmol/L (3.5-5.1) Chloride Level 96 mmol/L (98-107) Carbon Dioxide Level 30 mmol/L (21-32) Anion Gap 5 (6-14) Blood Urea Nitrogen 8 mg/dL (8-26) Creatinine 0.3 mg/dL (0.7-1.3) Estimated GFR (Cockcroft-Gault) > 300.0 BUN/Creatinine Ratio 27 (6-20) Glucose Level 114 mg/dL (70-99) Calcium Level 8.3 mg/dL (8.5-10.1) Total Bilirubin 0.6 mg/dL (0.2-1.0) Aspartate Amino Transf (AST/SGOT) 22 U/L (15-37) Alanine Aminotransferase (ALT/SGPT) 33 U/L (16-63) Alkaline Phosphatase 145 U/L (46-116) Total Protein 5.7 g/dL (6.4-8.2) Albumin 1.4 g/dL (3.4-5.0) Albumin/Globulin Ratio 0.3 (1.0-1.7) O2 Saturation 92 % (92-99) Arterial Blood pH 7.41 (7.35-7.45) Arterial Blood pH (Temp corrected) 7.39 Arterial Blood pCO2 at Patient Temp 47 mmHg (35-46) Arterial Blood pCO2 (Temp correct) 51 mmHg Arterial Blood pO2 at Patient Temp 69 mmHg (75-108) Arterial Blood pO2 (Temp corrected) 76 mmHg Arterial Blood HCO3 30 mmol/L (21-28) Arterial Blood Base Excess 4 mmol/L (-3-3) FiO2 45 vent Laboratory Tests Test 07/26/20 12:07 07/26/20 17:29 07/27/20 00:15 07/27/20 06:00 Glucose (Fingerstick) 149 mg/dL (70-99) 121 mg/dL (70-99) 119 mg/dL (70-99) White Blood Count 10.6 x10^3/uL (4.0-11.0) Red Blood Count 1.79 x10^6/uL (4.30-5.70) Hemoglobin 6.5 g/dL (13.0-17.5) Hematocrit 17.8 % (39.0-53.0) Mean Corpuscular Volume 99 fL (79-100) Mean Corpuscular Hemoglobin 36 pg (25-35) Mean Corpuscular Hemoglobin Concent 37 g/dL (31-37) Red Cell Distribution Width 14.4 % (11.5-14.5) Platelet Count 208 x10^3/uL (140-400) Neutrophils (%) (Auto) 85 % (31-73) Lymphocytes (%) (Auto) 7 % (24-48) Monocytes (%) (Auto) 5 % (0-9) Eosinophils (%) (Auto) 3 % (0-3) Basophils (%) (Auto) 0 % (0-3) Neutrophils # (Auto) 9.0 x10^3/uL (1.8-7.7) Lymphocytes # (Auto) 0.7 x10^3/uL (1.0-4.8) Monocytes # (Auto) 0.5 x10^3/uL (0.0-1.1) Eosinophils # (Auto) 0.3 x10^3/uL (0.0-0.7) Basophils # (Auto) 0.0 x10^3/uL (0.0-0.2) Sodium Level 131 mmol/L (136-145) Potassium Level 3.0 mmol/L (3.5-5.1) Chloride Level 96 mmol/L (98-107) Carbon Dioxide Level 30 mmol/L (21-32) Anion Gap 5 (6-14) Blood Urea Nitrogen 8 mg/dL (8-26) Creatinine 0.3 mg/dL (0.7-1.3) Estimated GFR (Cockcroft-Gault) > 300.0 BUN/Creatinine Ratio 27 (6-20) Glucose Level 114 mg/dL (70-99) Calcium Level 8.3 mg/dL (8.5-10.1) Total Bilirubin 0.6 mg/dL (0.2-1.0) Aspartate Amino Transf (AST/SGOT) 22 U/L (15-37) Alanine Aminotransferase (ALT/SGPT) 33 U/L (16-63) Alkaline Phosphatase 145 U/L (46-116) Total Protein 5.7 g/dL (6.4-8.2) Albumin 1.4 g/dL (3.4-5.0) Albumin/Globulin Ratio 0.3 (1.0-1.7) Test 07/27/20 08:05 O2 Saturation 92 % (92-99) Arterial Blood pH 7.41 (7.35-7.45) Arterial Blood pH (Temp corrected) 7.39 Arterial Blood pCO2 at Patient Temp 47 mmHg (35-46) Arterial Blood pCO2 (Temp correct) 51 mmHg Arterial Blood pO2 at Patient Temp 69 mmHg (75-108) Arterial Blood pO2 (Temp corrected) 76 mmHg Arterial Blood HCO3 30 mmol/L (21-28) Arterial Blood Base Excess 4 mmol/L (-3-3) FiO2 45 vent Microbiology 07/23/20 Urine Culture - Final, Complete 07/23/20 Antimicrobic Susceptibility - Final, Complete 07/23/20 Blood Culture - Preliminary, Resulted Medications Current Medications Ceftriaxone Sodium (Rocephin) 1 gm 1X ONCE IVP Last administered on 07/03/20at 20:11; Start 07/03/20 at 19:15; Stop 07/03/20 at 19:19; Status DC Azithromycin (Zithromax) 500 mg 1X ONCE PO Last administered on 11/10/20at 20:11; Start 07/03/20 at 19:15; Stop 07/03/20 at 19:19; Status DC Sodium Chloride 1,000 ml @ 1,000 mls/hr 1X ONCE IV Last administered on 07/03/20at 20:11; Start 07/03/20 at 19:15; Stop 07/03/20 at 20:14; Status DC Sodium Chloride 1,000 ml @ 1,000 mls/hr 1X ONCE IV Last administered on 07/03/20at 19:15; Start 07/03/20 at 19:15; Stop 07/03/20 at 20:14; Status DC Iohexol (Omnipaque 350 Mg/ml) 90 ml 1X ONCE IV Last administered on 07/03/20at 21:00; Start 07/03/20 at 20:45; Stop 07/03/20 at 20:46; Status DC Info (CONTRAST GIVEN -- Rx MONITORING) 1 each PRN DAILY PRN MC SEE COMMENTS; Start 07/03/20 at 20:45; Stop 07/05/20 at 20:44; Status DC Enoxaparin Sodium (Lovenox 150mg Syringe) 150 mg 1X ONCE SQ Last administered on 07/03/20at 22:45; Start 07/03/20 at 23:00; Stop 07/03/20 at 23:01; Status DC Ondansetron HCl (Zofran) 4 mg PRN Q8HRS PRN IV NAUSEA/VOMITING 1ST CHOICE; Start 07/03/20 at 22:30; Stop 07/04/20 at 22:29; Status DC Morphine Sulfate (Morphine Sulfate) 2 mg PRN Q2HR PRN IV SEVERE PAIN 7-10; Start 07/03/20 at 22:30; Stop 07/04/20 at 22:29; Status DC Sodium Chloride 1,000 ml @ 100 mls/hr Q10H IV Last administered on 07/05/20at 00:35; Start 07/03/20 at 23:00; Stop 07/04/20 at 22:59; Status DC Acetaminophen (Tylenol) 650 mg PRN Q4HRS PRN PO FEVER > 100.3'F; Start 07/03/20 at 22:30; Stop 07/04/20 at 22:29; Status DC Throat Lozenges (Cepacol Sore Throat Lozenge) 1 lety PRN Q2HRS PRN PO SORE THROAT; Start 07/04/20 at 01:15 Furosemide (Lasix) 20 mg 1X ONCE IVP Last administered on 07/04/20at 10:10; Start 07/04/20 at 10:00; Stop 07/04/20 at 10:01; Status DC Succinylcholine Chloride (Anectine) 200 mg STK-MED ONCE .ROUTE ; Start 07/04/20 at 09:09; Stop 07/04/20 at 09:09; Status DC Etomidate (Amidate) 20 mg STK-MED ONCE IV ; Start 07/04/20 at 09:09; Stop 07/04/20 at 09:09; Status DC Fentanyl Citrate 30 ml @ 0 mls/hr CONT PRN IV SEE PROTOCOL Last administered on 07/04/20at 09:36; Start 07/04/20 at 09:15; Stop 07/04/20 at 14:36; Status DC Propofol 100 ml @ 0 mls/hr CONT PRN IV SEE PROTOCOL Last administered on 07/27/20at 07:56; Start 07/04/20 at 09:15 Midazolam HCl 100 ml @ 0 mls/hr CONT PRN IV SEE PROTOCOL Last administered on 07/27/20at 08:29; Start 07/04/20 at 09:15 Midazolam HCl (Versed) 5 mg 1X STAT IV Last administered on 07/04/20at 09:41; Start 07/04/20 at 09:21; Stop 07/04/20 at 09:22; Status DC Midazolam HCl (Versed) 5 mg STK-MED ONCE .ROUTE ; Start 07/04/20 at 09:21; Stop 07/04/20 at 09:21; Status DC Etomidate (Amidate) 10 mg 1X ONCE IV Last administered on 07/04/20at 09:37; Start 07/04/20 at 09:30; Stop 07/04/20 at 09:31; Status DC Succinylcholine Chloride (Anectine) 200 mg 1X ONCE IV Last administered on 07/04/20at 09:38; Start 07/04/20 at 09:30; Stop 07/04/20 at 09:31; Status DC Vecuronium Phoenix (Norcuron Bolus) 6 mg 1X ONCE IV Last administered on 07/04/20at 09:38; Start 07/04/20 at 09:45; Stop 07/04/20 at 09:46; Status DC Vecuronium Phoenix (Norcuron Bolus) 10 mg STK-MED ONCE IV ; Start 07/04/20 at 09:33; Stop 07/04/20 at 09:33; Status DC Pantoprazole Sodium (PROTONIX VIAL for IV PUSH) 40 mg DAILYAC IVP Last administered on 07/27/20at 07:57; Start 07/04/20 at 12:30 Methylprednisolone Sodium Succinate (SOLU-Medrol 40MG VIAL) 40 mg Q8HRS IV Last administered on 07/11/20at 05:41; Start 07/04/20 at 14:00; Stop 07/11/20 at 11:36; Status DC Piperacillin Sod/ Tazobactam Sod (Zosyn Per Pharmacy) 1 each PRN DAILY PRN MC SEE COMMENTS; Start 07/04/20 at 12:00; Stop 07/18/20 at 07:46; Status DC Heparin Sodium/ Dextrose 250 ml @ 0 mls/hr CONT PRN IV PER PROTOCOL Last administered on 07/15/20at 02:09; Start 07/04/20 at 12:00; Stop 07/16/20 at 12:09; Status DC Heparin Sodium (Porcine) (Heparin Sodium) 2,500 unit PRN Q6HRS PRN IV FOR UFH LEVEL LESS THAN 0.2 Last administered on 07/15/20at 09:19; Start 07/04/20 at 12:00; Stop 07/16/20 at 12:09; Status DC Heparin Sodium (Porcine) (Heparin Sodium) 1,250 unit PRN Q6HRS PRN IV FOR UFH LEVEL 0.2 - 0.29 Last administered on 07/05/20at 18:27; Start 07/04/20 at 12:00; Stop 07/16/20 at 12:09; Status DC Piperacillin Sod/ Tazobactam Sod 3.375 gm/Sodium Chloride 50 ml @ 100 mls/hr Q6HRS IV Last administered on 07/17/20at 05:10; Start 07/04/20 at 12:00; Stop 07/17/20 at 11:11; Status DC Zinc Sulfate (Orazinc) 220 mg DAILY PO Last administered on 07/27/20at 07:58; Start 07/05/20 at 09:00 Ascorbic Acid (Vitamin C) 500 mg Q6HRS PO Last administered on 07/27/20at 07:58; Start 07/04/20 at 18:00 Vitamin D (Vitamin D3) 5,000 unit DAILY PO Last administered on 07/27/20at 07:58; Start 07/05/20 at 09:00 Vecuronium Phoenix (Norcuron Bolus) 6 mg 1X ONCE IV Last administered on 07/04/20at 13:27; Start 07/04/20 at 13:15; Stop 07/04/20 at 13:16; Status DC Norepinephrine Bitartrate 8 mg/ Dextrose 258 ml @ 16.061 mls/ hr CONT PRN IV PER PROTOCOL Last administered on 07/05/20at 00:33; Start 07/04/20 at 13:15; Stop 07/18/20 at 11:01; Status DC Fentanyl Citrate 55 ml @ 0 mls/hr CONT PRN IV SEE PROTOCOL Last administered on 07/27/20at 07:57; Start 07/04/20 at 14:45 Vecuronium Phoenix (Norcuron Bolus) 6 mg Q4H PRN IV OVERBREATHING VENT/out of sync Last administered on 07/20/20at 12:32; Start 07/04/20 at 16:45; Stop 07/22/20 at 09:34; Status DC Furosemide (Lasix) 40 mg 1X ONCE IVP Last administered on 07/05/20at 14:17; Start 07/05/20 at 13:30; Stop 07/05/20 at 13:31; Status DC Insulin Human Lispro (HumaLOG) 0-5 UNITS Q6HRS SQ Last administered on 07/11/20at 05:42; Start 07/05/20 at 18:00; Stop 07/11/20 at 07:54; Status DC Dextrose (Dextrose 50%-Water Syringe) 12.5 gm PRN Q15MIN PRN IV SEE COMMENTS; Start 07/05/20 at 14:15 Insulin Human Lispro (HumaLOG) 2 units 1X ONCE SQ Last administered on 07/05/20at 14:19; Start 07/05/20 at 14:30; Stop 07/05/20 at 14:31; Status DC Remdesivir 200 mg/ Sodium Chloride 210 ml @ 210 mls/hr 1X ONCE IV Last administered on 07/06/20at 14:51; Start 07/06/20 at 14:30; Stop 07/06/20 at 15:29; Status DC Remdesivir 100 mg/ Sodium Chloride 230 ml @ 460 mls/hr Q24H IV Last administered on 07/10/20at 13:59; Start 07/07/20 at 14:30; Stop 07/10/20 at 14:59; Status DC Insulin Human Lispro (HumaLOG) 0-9 UNITS TIDWMEALS SQ Last administered on 07/12/20at 11:31; Start 07/11/20 at 08:00; Stop 07/13/20 at 10:17; Status DC Methylprednisolone Sodium Succinate (SOLU-Medrol 40MG VIAL) 40 mg DAILY IV Last administered on 07/14/20at 07:57; Start 07/12/20 at 09:00; Stop 07/14/20 at 09:26; Status DC Acetaminophen (Tylenol) 650 mg PRN Q6HRS PRN PEG MILD PAIN / TEMP > 100.3'F Last administered on 07/26/20at 08:34; Start 07/12/20 at 12:00 Vecuronium Phoenix 50 mg/ Miscellaneous 50 ml @ 4.094 mls/ hr CONT PRN IV SEE I/O RECORD Last administered on 07/18/20at 01:56; Start 07/12/20 at 14:45; Stop 07/22/20 at 09:34; Status DC Insulin Human Lispro (HumaLOG) 0-9 UNITS Q6HRS SQ Last administered on 07/25/20at 11:49; Start 07/13/20 at 12:00 Methylprednisolone Sodium Succinate (SOLU-Medrol 40MG VIAL) 40 mg Q12HR IV Last administered on 07/16/20at 09:57; Start 07/14/20 at 21:00; Stop 07/16/20 at 12:10; Status DC Info (Anti-Coagulation Monitoring By Pharmacy) 1 each PRN DAILY PRN MC SEE COMMENTS Last administered on 07/26/20 08:59; Start 07/16/20 at 08:15 Apixaban (Eliquis) 10 mg BID PO Last administered on 07/22/20at 20:39; Start 07/16/20 at 13:00; Stop 07/22/20 at 21:01; Status DC Methylprednisolone Sodium Succinate (SOLU-Medrol 40MG VIAL) 40 mg DAILY IV Last administered on 07/16/20at 12:22; Start 07/16/20 at 13:00; Stop 07/17/20 at 08:24; Status DC Apixaban (Eliquis) 5 mg BID PO Last administered on 07/26/20at 20:31; Start 07/23/20 at 09:00 Methylprednisolone Sodium Succinate (SOLU-Medrol 40MG VIAL) 40 mg Q12HR IV Last administered on 07/20/20at 07:54; Start 07/17/20 at 09:00; Stop 07/20/20 at 10:20; Status DC Multi-Ingred Cream/Lotion/Oil/ Oint (Artificial Tears Eye Ointment) 1 wenceslao PRN Q1HR PRN OU DRY EYE; Start 07/18/20 at 10:45 Furosemide (Lasix) 40 mg 1X ONCE IVP Last administered on 07/19/20at 00:55; Start 07/19/20 at 00:45; Stop 07/19/20 at 00:46; Status DC Methylprednisolone Sodium Succinate (SOLU-Medrol 40MG VIAL) 40 mg DAILY IV Last administered on 07/22/20at 09:08; Start 07/21/20 at 09:00; Stop 07/22/20 at 09:36; Status DC Lorazepam (Ativan Inj) 2 mg PRN Q1HR PRN IV SEE COMMENTS Last administered on 07/24/20at 06:51; Start 07/21/20 at 12:30 Vecuronium [place] (Norcuron Bolus) 6 mg PRN Q6HRS PRN IV SEDATION Last administered on 07/22/20at 12:02; Start 07/22/20 at 12:00; Stop 07/26/20 at 21:14; Status DC Piperacillin Sod/ Tazobactam Sod 4.5 gm/Sodium Chloride 100 ml @ 200 mls/hr Q6HRS IV Last administered on 07/26/20at 05:36; Start 07/24/20 at 12:00; Stop 07/26/20 at 10:53; Status DC Potassium Chloride/Water 100 ml @ 100 mls/hr Q1H IV ; Start 07/24/20 at 15:30; Stop 07/24/20 at 19:29; Status UNV Potassium Chloride/Water 100 ml @ 100 mls/hr Q1H IV ; Start 07/24/20 at 15:30; Stop 07/24/20 at 17:29; Status UNV Potassium Chloride/Water 100 ml @ 100 mls/hr Q1H IV ; Start 07/24/20 at 15:30; Stop 07/24/20 at 23:29; Status UNV Potassium Chloride/Water 100 ml @ 100 mls/hr Q1H IV ; Start 07/24/20 at 15:30; Stop 07/24/20 at 19:29; Status UNV Potassium Chloride/Water 100 ml @ 100 mls/hr Q1H IV ; Start 07/24/20 at 15:30; Stop 07/25/20 at 03:29; Status UNV Potassium Chloride/Water 100 ml @ 100 mls/hr Q1HR IV ; Start 07/24/20 at 16:00; Stop 07/24/20 at 21:59; Status UNV Magnesium Sulfate 100 ml @ 50 mls/hr DAILY IV ; Start 07/25/20 at 09:00; Stop 07/28/20 at 08:59; Status UNV Sodium Phosphate 20 mmol/Sodium Chloride 256.6667 ml @ 62.5 mls/hr 1X ONCE IV ; Start 07/24/20 at 15:30; Stop 07/24/20 at 19:36; Status UNV Sodium Phosphate 30 mmol/Sodium Chloride 260 ml @ 62.5 mls/hr 1X ONCE IV ; Start 07/24/20 at 15:30; Stop 07/24/20 at 19:39; Status UNV Potassium Phosphate 13.6 mmol/Sodium Chloride 254.5333 ml @ 62.5 mls/hr Q4H IV ; Start 07/24/20 at 15:30; Stop 07/25/20 at 03:29; Status UNV Info (Icu Electrolyte Protocol) 1 ea CONT PRN PRN MC SEE COMMENTS; Start 07/24/20 at 15:45 Vancomycin HCl (Vanco Per Pharmacy) 1 each PRN DAILY PRN MC SEE COMMENTS Last administered on 07/26/20at 08:53; Start 07/25/20 at 07:00; Stop 07/26/20 at 21:14; Status DC Vancomycin HCl 2 gm/Sodium Chloride 500 ml @ 250 mls/hr 1X ONCE IV Last administered on 07/25/20at 07:06; Start 07/25/20 at 07:00; Stop 07/25/20 at 08:59; Status DC Vancomycin HCl 1.25 gm/Sodium Chloride 250 ml @ 167 mls/hr Q8H IV Last administered on 07/25/20at 22:44; Start 07/25/20 at 15:00; Stop 07/26/20 at 07:31; Status DC Vancomycin HCl (Vancomycin Trough Level) 1 each 1X ONCE MC Last administered on 07/26/20at 06:13; Start 07/26/20 at 06:30; Stop 07/26/20 at 06:31; Status DC Vancomycin HCl 1.5 gm/Sodium Chloride 500 ml @ 250 mls/hr Q8H IV Last administered on 07/26/20at 15:42; Start 07/26/20 at 08:00; Stop 07/26/20 at 21:14; Status DC Vancomycin HCl (Vancomycin Trough Level) 1 each 1X ONCE MC ; Start 07/27/20 at 07:30; Stop 07/27/20 at 07:31; Status Cancel Meropenem 500 mg/ Sodium Chloride 50 ml @ 100 mls/hr Q6HRS IV Last administered on 07/27/20at 05:55; Start 07/26/20 at 12:00 Vitals/I & O Vital Sign - Last 24 Hours 07/26/20 07/26/20 07/26/20 07/26/20 09:00 10:15 11:00 11:26 Temp 99.9 99.9 Pulse 94 86 83 Resp 35 24 32 B/P (MAP) 98/52 (67) 97/55 (69) 116/67 (83) Pulse Ox 99 97 99 99 O2 Delivery Ventilator Ventilator Ventilator Ventilator O2 Flow Rate 15.0 07/26/20 07/26/20 07/26/20 07/26/20 12:00 12:00 13:00 14:00 Temp 98.5 99.5 98.5 99.5 Pulse 82 83 89 Resp 32 32 32 B/P (MAP) 106/65 (79) 121/72 (88) 100/57 (71) Pulse Ox 100 99 100 O2 Delivery Mechanical Ventilator Ventilator Ventilator Ventilator 07/26/20 07/26/20 07/26/20 07/26/20 15:00 15:57 16:00 17:00 Temp 100.2 100.2 Pulse 89 87 87 Resp 32 32 32 B/P (MAP) 117/69 (85) 115/59 (77) 115/61 (79) Pulse Ox 100 100 100 O2 Delivery Ventilator Mechanical Ventilator Ventilator Ventilator 07/26/20 07/26/20 07/26/20 07/26/20 18:00 19:00 20:00 20:00 Temp 99.2 99.2 Pulse 88 86 86 Resp 32 30 36 B/P (MAP) 118/65 (82) 118/72 (87) 106/62 (77) Pulse Ox 100 100 100 O2 Delivery Ventilator Ventilator Ventilator Mechanical Ventilator 07/26/20 07/26/20 07/26/20 07/26/20 20:02 21:00 22:00 23:00 Temp 98.0 98.0 Pulse 86 88 78 Resp 24 B/P (MAP) 108/61 (77) 134/76 (95) 102/64 (77) Pulse Ox 99 100 100 100 O2 Delivery Ventilator Ventilator Ventilator Ventilator 07/26/20 07/26/20 07/27/20 07/27/20 23:59 23:59 00:17 01:00 Temp 99.7 99.7 Pulse 82 87 Resp 28 B/P (MAP) 105/64 (78) 108/66 (80) Pulse Ox 100 100 100 O2 Delivery Mechanical Ventilator Ventilator Ventilator Ventilator 07/27/20 07/27/20 07/27/20 07/27/20 02:00 03:00 03:18 04:00 Temp 100.0 99.7 100.0 99.7 Pulse 83 81 80 Resp 28 B/P (MAP) 101/63 (76) 105/60 (75) 105/61 (76) Pulse Ox 100 100 100 100 O2 Delivery Ventilator Ventilator Ventilator Ventilator 07/27/20 07/27/20 07/27/20 07/27/20 04:00 05:00 06:00 07:00 Temp 99.3 99.3 Pulse 86 82 86 Resp 24 B/P (MAP) 124/72 (89) 109/66 (80) 117/66 (83) Pulse Ox 100 100 100 O2 Delivery Mechanical Ventilator Ventilator Ventilator Ventilator 07/27/20 07/27/20 07/27/20 07/27/20 07:49 07:57 08:00 08:25 Temp 101.5 101.5 Pulse 94 Resp 20 27 B/P (MAP) 131/79 (96) Pulse Ox 100 100 O2 Delivery Ventilator Ventilator Ventilator Mechanical Ventilator Intake and Output 07/26/20 07/26/20 07/27/20 15:00 23:00 07:00 Intake Total 1500 ml 1292 ml 1563 ml Output Total 775 ml 640 ml 750 ml Balance 725 ml 652 ml 813 ml Justicifation of Admission Dx: Justifications for Admission: Justification of Admission Dx: Yes REESE CASEY MD Jul 27, 2020 08:31
--- NOTE | 2020-07-27 08:35 | PDOC ---
PULMONARY PROGRESS NOTES DATE: 07/27/20 TIME: 08:35 Subjective PT. remains on vent support , 45% FiO2 and a PEEP of 6 Continues to have fevere Anemia this am, HGB 6.4 no concerns from nursing Vitals Vital Signs Date Time Temp Pulse Resp B/P (MAP) Pulse Ox O2 Delivery O2 Flow Rate FiO2 07/27/20 08:25 Mechanical Ventilator 07/27/20 08:00 101.5 94 27 131/79 (96) 100 101.5 07/26/20 10:15 15.0 Comments Patient seen during pandemic visual exam performed Intubated/sedated RRR no Accessory muscle use No obvious rash or edema Lungs: Other (orally intubated, clear ) Labs Laboratory Tests Test 07/25/20 11:45 07/25/20 17:14 07/26/20 06:10 07/26/20 12:07 Glucose (Fingerstick) 162 mg/dL (70-99) 136 mg/dL (70-99) 149 mg/dL (70-99) White Blood Count 11.3 x10^3/uL (4.0-11.0) Red Blood Count 2.83 x10^6/uL (4.30-5.70) Hemoglobin 9.7 g/dL (13.0-17.5) Hematocrit 28.1 % (39.0-53.0) Mean Corpuscular Volume 99 fL (79-100) Mean Corpuscular Hemoglobin 34 pg (25-35) Mean Corpuscular Hemoglobin Concent 34 g/dL (31-37) Red Cell Distribution Width 14.6 % (11.5-14.5) Platelet Count 156 x10^3/uL (140-400) Neutrophils (%) (Auto) 90 % (31-73) Lymphocytes (%) (Auto) 5 % (24-48) Monocytes (%) (Auto) 3 % (0-9) Eosinophils (%) (Auto) 2 % (0-3) Basophils (%) (Auto) 0 % (0-3) Neutrophils # (Auto) 10.1 x10^3/uL (1.8-7.7) Lymphocytes # (Auto) 0.6 x10^3/uL (1.0-4.8) Monocytes # (Auto) 0.3 x10^3/uL (0.0-1.1) Eosinophils # (Auto) 0.2 x10^3/uL (0.0-0.7) Basophils # (Auto) 0.0 x10^3/uL (0.0-0.2) Sodium Level 133 mmol/L (136-145) Potassium Level 3.6 mmol/L (3.5-5.1) Chloride Level 97 mmol/L (98-107) Carbon Dioxide Level 33 mmol/L (21-32) Anion Gap 3 (6-14) Blood Urea Nitrogen 12 mg/dL (8-26) Creatinine 0.6 mg/dL (0.7-1.3) Estimated GFR (Cockcroft-Gault) 142.6 BUN/Creatinine Ratio 20 (6-20) Glucose Level 163 mg/dL (70-99) Calcium Level 8.2 mg/dL (8.5-10.1) Total Bilirubin 0.7 mg/dL (0.2-1.0) Aspartate Amino Transf (AST/SGOT) 12 U/L (15-37) Alanine Aminotransferase (ALT/SGPT) 26 U/L (16-63) Alkaline Phosphatase 115 U/L (46-116) Total Protein 5.5 g/dL (6.4-8.2) Albumin 1.4 g/dL (3.4-5.0) Albumin/Globulin Ratio 0.3 (1.0-1.7) Vancomycin Level Trough 7.2 mcg/mL (10.0-20.0) Vancomycin Last Dose Date 07/25/20 Vancomycin Last Dose Time 2300 Test 07/26/20 17:29 07/27/20 00:15 07/27/20 06:00 07/27/20 08:05 Glucose (Fingerstick) 121 mg/dL (70-99) 119 mg/dL (70-99) White Blood Count 10.6 x10^3/uL (4.0-11.0) Red Blood Count 1.79 x10^6/uL (4.30-5.70) Hemoglobin 6.5 g/dL (13.0-17.5) Hematocrit 17.8 % (39.0-53.0) Mean Corpuscular Volume 99 fL (79-100) Mean Corpuscular Hemoglobin 36 pg (25-35) Mean Corpuscular Hemoglobin Concent 37 g/dL (31-37) Red Cell Distribution Width 14.4 % (11.5-14.5) Platelet Count 208 x10^3/uL (140-400) Neutrophils (%) (Auto) 85 % (31-73) Lymphocytes (%) (Auto) 7 % (24-48) Monocytes (%) (Auto) 5 % (0-9) Eosinophils (%) (Auto) 3 % (0-3) Basophils (%) (Auto) 0 % (0-3) Neutrophils # (Auto) 9.0 x10^3/uL (1.8-7.7) Lymphocytes # (Auto) 0.7 x10^3/uL (1.0-4.8) Monocytes # (Auto) 0.5 x10^3/uL (0.0-1.1) Eosinophils # (Auto) 0.3 x10^3/uL (0.0-0.7) Basophils # (Auto) 0.0 x10^3/uL (0.0-0.2) Sodium Level 131 mmol/L (136-145) Potassium Level 3.0 mmol/L (3.5-5.1) Chloride Level 96 mmol/L (98-107) Carbon Dioxide Level 30 mmol/L (21-32) Anion Gap 5 (6-14) Blood Urea Nitrogen 8 mg/dL (8-26) Creatinine 0.3 mg/dL (0.7-1.3) Estimated GFR (Cockcroft-Gault) > 300.0 BUN/Creatinine Ratio 27 (6-20) Glucose Level 114 mg/dL (70-99) Calcium Level 8.3 mg/dL (8.5-10.1) Total Bilirubin 0.6 mg/dL (0.2-1.0) Aspartate Amino Transf (AST/SGOT) 22 U/L (15-37) Alanine Aminotransferase (ALT/SGPT) 33 U/L (16-63) Alkaline Phosphatase 145 U/L (46-116) Total Protein 5.7 g/dL (6.4-8.2) Albumin 1.4 g/dL (3.4-5.0) Albumin/Globulin Ratio 0.3 (1.0-1.7) O2 Saturation 92 % (92-99) Arterial Blood pH 7.41 (7.35-7.45) Arterial Blood pH (Temp corrected) 7.39 Arterial Blood pCO2 at Patient Temp 47 mmHg (35-46) Arterial Blood pCO2 (Temp correct) 51 mmHg Arterial Blood pO2 at Patient Temp 69 mmHg (75-108) Arterial Blood pO2 (Temp corrected) 76 mmHg Arterial Blood HCO3 30 mmol/L (21-28) Arterial Blood Base Excess 4 mmol/L (-3-3) FiO2 45 vent Laboratory Tests Test 07/26/20 12:07 07/26/20 17:29 07/27/20 00:15 07/27/20 06:00 Glucose (Fingerstick) 149 mg/dL (70-99) 121 mg/dL (70-99) 119 mg/dL (70-99) White Blood Count 10.6 x10^3/uL (4.0-11.0) Red Blood Count 1.79 x10^6/uL (4.30-5.70) Hemoglobin 6.5 g/dL (13.0-17.5) Hematocrit 17.8 % (39.0-53.0) Mean Corpuscular Volume 99 fL (79-100) Mean Corpuscular Hemoglobin 36 pg (25-35) Mean Corpuscular Hemoglobin Concent 37 g/dL (31-37) Red Cell Distribution Width 14.4 % (11.5-14.5) Platelet Count 208 x10^3/uL (140-400) Neutrophils (%) (Auto) 85 % (31-73) Lymphocytes (%) (Auto) 7 % (24-48) Monocytes (%) (Auto) 5 % (0-9) Eosinophils (%) (Auto) 3 % (0-3) Basophils (%) (Auto) 0 % (0-3) Neutrophils # (Auto) 9.0 x10^3/uL (1.8-7.7) Lymphocytes # (Auto) 0.7 x10^3/uL (1.0-4.8) Monocytes # (Auto) 0.5 x10^3/uL (0.0-1.1) Eosinophils # (Auto) 0.3 x10^3/uL (0.0-0.7) Basophils # (Auto) 0.0 x10^3/uL (0.0-0.2) Sodium Level 131 mmol/L (136-145) Potassium Level 3.0 mmol/L (3.5-5.1) Chloride Level 96 mmol/L (98-107) Carbon Dioxide Level 30 mmol/L (21-32) Anion Gap 5 (6-14) Blood Urea Nitrogen 8 mg/dL (8-26) Creatinine 0.3 mg/dL (0.7-1.3) Estimated GFR (Cockcroft-Gault) > 300.0 BUN/Creatinine Ratio 27 (6-20) Glucose Level 114 mg/dL (70-99) Calcium Level 8.3 mg/dL (8.5-10.1) Total Bilirubin 0.6 mg/dL (0.2-1.0) Aspartate Amino Transf (AST/SGOT) 22 U/L (15-37) Alanine Aminotransferase (ALT/SGPT) 33 U/L (16-63) Alkaline Phosphatase 145 U/L (46-116) Total Protein 5.7 g/dL (6.4-8.2) Albumin 1.4 g/dL (3.4-5.0) Albumin/Globulin Ratio 0.3 (1.0-1.7) Test 07/27/20 08:05 O2 Saturation 92 % (92-99) Arterial Blood pH 7.41 (7.35-7.45) Arterial Blood pH (Temp corrected) 7.39 Arterial Blood pCO2 at Patient Temp 47 mmHg (35-46) Arterial Blood pCO2 (Temp correct) 51 mmHg Arterial Blood pO2 at Patient Temp 69 mmHg (75-108) Arterial Blood pO2 (Temp corrected) 76 mmHg Arterial Blood HCO3 30 mmol/L (21-28) Arterial Blood Base Excess 4 mmol/L (-3-3) FiO2 45 vent Comments CXR 07/26 IMPRESSION: 1. Stable life support devices. 2. Bilateral perihilar and basilar opacities, progressed in the left base Impression . IMPRESSION: 1. Acute hypoxemic respiratory failure. 2. Acute pulmonary embolism with cor pulmonale. 3. Possible COVID-19. 4[address] CT chest revealing ground glass opacities. 5. Hypertension. 6. History of bronchitis. 7. Elevated troponin. 8. Acute kidney injury. 9. Leukocytosis. 10. Covid-19 positive Plan . Continue current ventilatory support, FiO2 45% and a PEEP of 6, surgery following for trach Anemia today, tranfuse PRBC and monitor HGB, transfuse if less than 7.0 D/C eliquis, consider IV heparin when ready to restart A/C Follow chest x-ray and ABG, no changes today Follow cardiology recommendations Antibiotics per ID-- humberto, urine culture + GNR Vasopressors if need for hypotension, keep MAP above 65 Has completed full course of remdesivir Continue tube feeding for nutritional support DVT/GI prophylaxis,Protonix Discussed with RN and RT Pt. is FULL CODE Critical Care Time 1115-1145AM ALVIN RAMSEY MD Jul 27, 2020 08:35
[2020-07-27] MEDS: APIXABAN 5 MG TABLET. PO SCH (09:00)
[2020-07-27] MEDS: POTASSIUM CHLORIDE 20MEQ 100 ML IV SCH ×2 (09:53→11:29)
[2020-07-27] MEDS: ACETAMINOPHEN 650 MG/20.3 ML SOLUTION. PEG PRN ×2 (09:53→17:19)
[2020-07-27 10:06] LABS: MAGNESIUM 1.8 mg/dL (1.8-2.4); PHOSPHORUS 3.5 mg/dL (2.6-4.7)
--- NOTE | 2020-07-27 11:06 | NUR ---
SS following up with discharge planning. SS reviewed pt chart and discussed with pt RN. Pt is currently on the vent at 45%. COVID19 positive. Pt having fevers. Pt getting blood today. Pt now on IV Meropenem. Self pay. Not stable. SS will continue to follow for discharge planning.
--- NOTE | 2020-07-27 11:41 | PDOC ---
Infectious Disease Note Subjective: Subjective Patient sedated /intubated Patient continues to remain febrile Vital Signs: Vital Signs Vital Signs Date Time Temp Pulse Resp B/P (MAP) Pulse Ox O2 Delivery O2 Flow Rate FiO2 07/27/20 10:00 101.0 92 26 121/80 (94) 99 Ventilator 101.0 07/26/20 10:15 15.0 Physical Exam: PHYSICAL EXAM General intubated/sedated HEENT normocephalic atraumatic, OGT/ETT present LUNGS: Coarse breath sounds anteriorly HEART: S1-S2 no murmurs ABDOMEN: Nondistended, soft bowel sounds present Fernandez in place SKIN: No generalized rash Right upper extremity PICC line clean Neuro intubated/sedated Medications: Inpatient Meds: Current Medications Medications (Trade) Dose Ordered Sig/Natalee Start Time Stop Time Status Last Admin Dose Admin Acetaminophen (Tylenol) 650 mg PRN Q6HRS PRN 07/12/20 12:00 07/27/20 09:53 650 MG Apixaban (Eliquis) 5 mg BID 07/23/20 09:00 07/26/20 20:31 5 MG Ascorbic Acid (Vitamin C) 500 mg Q6HRS 07/04/20 18:00 07/27/20 07:58 500 MG Azithromycin (Zithromax) 500 mg 1X ONCE 07/03/20 19:15 07/03/20 19:19 DC 07/03/20 20:11 500 MG Ceftriaxone Sodium (Rocephin) 1 gm 1X ONCE 07/03/20 19:15 07/03/20 19:19 DC 07/03/20 20:11 1 GM Dextrose (Dextrose 50%-Water Syringe) 12.5 gm PRN Q15MIN PRN 07/05/20 14:15 Enoxaparin Sodium (Lovenox 150mg Syringe) 150 mg 1X ONCE 07/03/20 23:00 07/03/20 23:01 DC 07/03/20 22:45 150 MG Etomidate (Amidate) 10 mg 1X ONCE 07/04/20 09:30 07/04/20 09:31 DC 07/04/20 09:37 10 MG Fentanyl Citrate 55 ml @ 0 mls/hr CONT PRN 07/04/20 14:45 07/27/20 07:57 1.75 MLS/HR Furosemide (Lasix) 40 mg 1X ONCE 07/19/20 00:45 07/19/20 00:46 DC 07/19/20 00:55 40 MG Heparin Sodium (Porcine) (Heparin Sodium) 1,250 unit PRN Q6HRS PRN 07/04/20 12:00 07/16/20 12:09 DC 07/05/20 18:27 1,250 UNIT Heparin Sodium/ Dextrose 250 ml @ 0 mls/hr CONT PRN 07/04/20 12:00 07/16/20 12:09 DC 07/15/20 02:09 14.9 MLS/HR Info (Anti-Coagulation Monitoring By Pharmacy) 1 each PRN DAILY PRN 07/16/20 08:15 07/26/20 08:59 1 EACH Info (CONTRAST GIVEN -- Rx MONITORING) 1 each PRN DAILY PRN 07/03/20 20:45 07/05/20 20:44 DC Info (Icu Electrolyte Protocol) 1 ea CONT PRN PRN 07/24/20 15:45 Insulin Human Lispro (HumaLOG) 0-9 UNITS [id number] 07/27/20 18:00 Iohexol (Omnipaque 350 Mg/ml) 90 ml 1X ONCE 07/03/20 20:45 07/03/20 20:46 DC 07/03/20 21:00 90 ML Lorazepam (Ativan Inj) 2 mg PRN Q1HR PRN 07/21/20 12:30 07/24/20 06:51 2 MG Magnesium Sulfate 100 ml @ 50 mls/hr DAILY 07/25/20 09:00 07/28/20 08:59 UNV Meropenem 500 mg/ Sodium Chloride 50 ml @ 100 mls/hr Q6HRS 07/26/20 12:00 07/27/20 11:29 100 MLS/HR Methylprednisolone Sodium Succinate (SOLU-Medrol 40MG VIAL) 40 mg DAILY 07/21/20 09:00 07/22/20 09:36 DC 07/22/20 09:08 40 MG Midazolam HCl (Versed) 5 mg STK-MED ONCE 07/04/20 09:21 07/04/20 09:21 DC Morphine Sulfate (Morphine Sulfate) 2 mg PRN Q2HR PRN 07/03/20 22:30 07/04/20 22:29 DC Multi-Ingred Cream/Lotion/Oil/ Oint (Artificial Tears Eye Ointment) 1 wenceslao PRN Q1HR PRN 07/18/20 10:45 Norepinephrine Bitartrate 8 mg/ Dextrose 258 ml @ 16.061 mls/ hr CONT PRN 07/04/20 13:15 07/18/20 11:01 DC 07/05/20 00:33 28.909 MLS/HR Ondansetron HCl (Zofran) 4 mg PRN Q8HRS PRN 07/03/20 22:30 07/04/20 22:29 DC Pantoprazole Sodium (PROTONIX VIAL for IV PUSH) 40 mg DAILYAC 07/04/20 12:30 07/27/20 07:57 40 MG Piperacillin Sod/ Tazobactam Sod (Zosyn Per Pharmacy) 1 each PRN DAILY PRN 07/04/20 12:00 07/18/20 07:46 DC Piperacillin Sod/ Tazobactam Sod 3.375 gm/Sodium Chloride 50 ml @ 100 mls/hr Q6HRS 07/04/20 12:00 07/17/20 11:11 DC 07/17/20 05:10 100 MLS/HR Piperacillin Sod/ Tazobactam Sod 4.5 gm/Sodium Chloride 100 ml @ 200 mls/hr Q6HRS 07/24/20 12:00 07/26/20 10:53 DC 07/26/20 05:36 200 MLS/HR Potassium Chloride/Water 100 ml @ 100 mls/hr Q1H 07/27/20 10:30 07/27/20 12:29 07/27/20 11:29 100 MLS/HR Potassium Phosphate 13.6 mmol/Sodium Chloride 254.5333 ml @ 62.5 mls/hr Q4H 07/24/20 15:30 07/25/20 03:29 UNV Propofol 100 ml @ 0 mls/hr CONT PRN 07/04/20 09:15 07/27/20 07:56 10 MLS/HR Remdesivir 100 mg/ Sodium Chloride 230 ml @ 460 mls/hr Q24H 07/07/20 14:30 07/10/20 14:59 DC 07/10/20 13:59 460 MLS/HR Remdesivir 200 mg/ Sodium Chloride 210 ml @ 210 mls/hr 1X ONCE 07/06/20 14:30 07/06/20 15:29 DC 07/06/20 14:51 210 MLS/HR Sodium Chloride 1,000 ml @ 100 mls/hr Q10H 07/03/20 23:00 07/04/20 22:59 DC 07/05/20 00:35 100 MLS/HR Sodium Phosphate 20 mmol/Sodium Chloride 256.6667 ml @ 62.5 mls/hr 1X ONCE 07/24/20 15:30 07/24/20 19:36 UNV Sodium Phosphate 30 mmol/Sodium Chloride 260 ml @ 62.5 mls/hr 1X ONCE 07/24/20 15:30 07/24/20 19:39 UNV Succinylcholine Chloride (Anectine) 200 mg 1X ONCE 07/04/20 09:30 07/04/20 09:31 DC 07/04/20 09:38 200 MG Throat Lozenges (Cepacol Sore Throat Lozenge) 1 lety PRN Q2HRS PRN 07/04/20 01:15 Vancomycin HCl (Vanco Per Pharmacy) 1 each PRN DAILY PRN 07/25/20 07:00 07/26/20 21:14 DC 07/26/20 08:53 1 EACH Vancomycin HCl (Vancomycin Trough Level) 1 each 1X ONCE 07/27/20 07:30 07/27/20 07:31 Cancel Vancomycin HCl 1.25 gm/Sodium Chloride 250 ml @ 167 mls/hr Q8H 07/25/20 15:00 07/26/20 07:31 DC 07/25/20 22:44 167 MLS/HR Vancomycin HCl 1.5 gm/Sodium Chloride 500 ml @ 250 mls/hr Q8H 07/26/20 08:00 07/26/20 21:14 DC 07/26/20 15:42 250 MLS/HR Vancomycin HCl 2 gm/Sodium Chloride 500 ml @ 250 mls/hr 1X ONCE 07/25/20 07:00 07/25/20 08:59 DC 07/25/20 07:06 250 MLS/HR Vecuronium [place] 50 mg/ Miscellaneous 50 ml @ 4.094 mls/ hr CONT PRN 07/12/20 14:45 07/22/20 09:34 DC 07/18/20 01:56 7.5 MLS/HR Vecuronium [place] (Norcuron Bolus) 6 mg PRN Q6HRS PRN 07/22/20 12:00 07/26/20 21:14 DC 07/22/20 12:02 6 MG Vitamin D (Vitamin D3) 5,000 unit DAILY 07/05/20 09:00 07/27/20 07:58 5,000 UNIT Zinc Sulfate (Orazinc) 220 mg DAILY 07/05/20 09:00 07/27/20 07:58 220 MG Labs: Lab Laboratory Tests Test 07/26/20 12:07 07/26/20 17:29 07/27/20 00:15 07/27/20 06:00 Glucose (Fingerstick) 149 mg/dL (70-99) 121 mg/dL (70-99) 119 mg/dL (70-99) White Blood Count 10.6 x10^3/uL (4.0-11.0) Red Blood Count 1.79 x10^6/uL (4.30-5.70) Hemoglobin 6.5 g/dL (13.0-17.5) Hematocrit 17.8 % (39.0-53.0) Mean Corpuscular Volume 99 fL (79-100) Mean Corpuscular Hemoglobin 36 pg (25-35) Mean Corpuscular Hemoglobin Concent 37 g/dL (31-37) Red Cell Distribution Width 14.4 % (11.5-14.5) Platelet Count 208 x10^3/uL (140-400) Neutrophils (%) (Auto) 85 % (31-73) Lymphocytes (%) (Auto) 7 % (24-48) Monocytes (%) (Auto) 5 % (0-9) Eosinophils (%) (Auto) 3 % (0-3) Basophils (%) (Auto) 0 % (0-3) Neutrophils # (Auto) 9.0 x10^3/uL (1.8-7.7) Lymphocytes # (Auto) 0.7 x10^3/uL (1.0-4.8) Monocytes # (Auto) 0.5 x10^3/uL (0.0-1.1) Eosinophils # (Auto) 0.3 x10^3/uL (0.0-0.7) Basophils # (Auto) 0.0 x10^3/uL (0.0-0.2) Sodium Level 131 mmol/L (136-145) Potassium Level 3.0 mmol/L (3.5-5.1) Chloride Level 96 mmol/L (98-107) Carbon Dioxide Level 30 mmol/L (21-32) Anion Gap 5 (6-14) Blood Urea Nitrogen 8 mg/dL (8-26) Creatinine 0.3 mg/dL (0.7-1.3) Estimated GFR (Cockcroft-Gault) > 300.0 BUN/Creatinine Ratio 27 (6-20) Glucose Level 114 mg/dL (70-99) Calcium Level 8.3 mg/dL (8.5-10.1) Phosphorus Level 3.5 mg/dL (2.6-4.7) Magnesium Level 1.8 mg/dL (1.8-2.4) Total Bilirubin 0.6 mg/dL (0.2-1.0) Aspartate Amino Transf (AST/SGOT) 22 U/L (15-37) Alanine Aminotransferase (ALT/SGPT) 33 U/L (16-63) Alkaline Phosphatase 145 U/L (46-116) Total Protein 5.7 g/dL (6.4-8.2) Albumin 1.4 g/dL (3.4-5.0) Albumin/Globulin Ratio 0.3 (1.0-1.7) Test 07/27/20 08:05 O2 Saturation 92 % (92-99) Arterial Blood pH 7.41 (7.35-7.45) Arterial Blood pH (Temp corrected) 7.39 Arterial Blood pCO2 at Patient Temp 47 mmHg (35-46) Arterial Blood pCO2 (Temp correct) 51 mmHg Arterial Blood pO2 at Patient Temp 69 mmHg (75-108) Arterial Blood pO2 (Temp corrected) 76 mmHg Arterial Blood HCO3 30 mmol/L (21-28) Arterial Blood Base Excess 4 mmol/L (-3-3) FiO2 45 vent Objective: Assessment: Fever Leukocytosis improved COVID-19 positive. Status post remdesivir, steroids Acute hypoxic respiratory failure/ARDS /pneumonia Bilateral pulmonary emboli. Hypertension. Bacteremia 07/23 1/2 bottles coagulase-negative staph likely contaminant Enterobacter UTI Plan: Plan of Care Cont meropenem Start Zyvox DC PICC line CT A/P DC Fernandez if not done already Follow-up repeat BC Monitor labs and cultures Critically ill D/W JAMI LUCAS MD Jul 27, 2020 11:41
--- NOTE | 2020-07-27 15:07 | NUR ---
Daily update. 1 unit PRBC infused per order. new Peripheral IV 's started and PICC line removed as per order. Temperature started at 101.9 this AM, currently at 98.8. Family updated.
[2020-07-28] VITALS (24 sets, daily range): BP systolic 92–140; BP diastolic 55–82
[2020-07-28] MEDS: MEROPENEM 500 MG in IV NORMAL SALINE 50ML 50 ML IV SCH ×5 (00:10→23:45)
[2020-07-28] MEDS: ASCORBIC ACID 500 MG TABLET PO SCH ×4 (00:11→19:00)
[2020-07-28] MEDS: PROPOFOL 100 ML IV PRN ×3 (02:23→21:30)
[2020-07-28] MEDS: MIDAZOLAM 100mg/100ml NS BAG 100 ML IV PRN ×3 (02:44→23:44)
--- NOTE | 2020-07-28 05:57 | PDOC ---
PULMONARY PROGRESS NOTES DATE: 07/28/20 TIME: 05:55 Subjective PT. remains on vent support , 45% FiO2 and a PEEP of 6 large ett secretion sedated on propofol fentanyl versed Continues to have fever Vitals Vital Signs Date Time Temp Pulse Resp B/P (MAP) Pulse Ox O2 Delivery O2 Flow Rate FiO2 07/28/20 04:00 99 Ventilator 07/28/20 02:00 82 28 135/73 (93) 07/27/20 23:59 99.6 99.6 Comments Patient seen during COVID- pandemic visual exam performed Intubated/sedated nc at has accessory muscle use tachypneac RRR No obvious rash or edema Lungs: Other (orally intubated, clear ) Labs Laboratory Tests Test 07/26/20 06:10 07/26/20 12:07 07/26/20 17:29 07/27/20 00:15 White Blood Count 11.3 x10^3/uL (4.0-11.0) Red Blood Count 2.83 x10^6/uL (4.30-5.70) Hemoglobin 9.7 g/dL (13.0-17.5) Hematocrit 28.1 % (39.0-53.0) Mean Corpuscular Volume 99 fL (79-100) Mean Corpuscular Hemoglobin 34 pg (25-35) Mean Corpuscular Hemoglobin Concent 34 g/dL (31-37) Red Cell Distribution Width 14.6 % (11.5-14.5) Platelet Count 156 x10^3/uL (140-400) Neutrophils (%) (Auto) 90 % (31-73) Lymphocytes (%) (Auto) 5 % (24-48) Monocytes (%) (Auto) 3 % (0-9) Eosinophils (%) (Auto) 2 % (0-3) Basophils (%) (Auto) 0 % (0-3) Neutrophils # (Auto) 10.1 x10^3/uL (1.8-7.7) Lymphocytes # (Auto) 0.6 x10^3/uL (1.0-4.8) Monocytes # (Auto) 0.3 x10^3/uL (0.0-1.1) Eosinophils # (Auto) 0.2 x10^3/uL (0.0-0.7) Basophils # (Auto) 0.0 x10^3/uL (0.0-0.2) Sodium Level 133 mmol/L (136-145) Potassium Level 3.6 mmol/L (3.5-5.1) Chloride Level 97 mmol/L (98-107) Carbon Dioxide Level 33 mmol/L (21-32) Anion Gap 3 (6-14) Blood Urea Nitrogen 12 mg/dL (8-26) Creatinine 0.6 mg/dL (0.7-1.3) Estimated GFR (Cockcroft-Gault) 142.6 BUN/Creatinine Ratio 20 (6-20) Glucose Level 163 mg/dL (70-99) Calcium Level 8.2 mg/dL (8.5-10.1) Total Bilirubin 0.7 mg/dL (0.2-1.0) Aspartate Amino Transf (AST/SGOT) 12 U/L (15-37) Alanine Aminotransferase (ALT/SGPT) 26 U/L (16-63) Alkaline Phosphatase 115 U/L (46-116) Total Protein 5.5 g/dL (6.4-8.2) Albumin 1.4 g/dL (3.4-5.0) Albumin/Globulin Ratio 0.3 (1.0-1.7) Vancomycin Level Trough 7.2 mcg/mL (10.0-20.0) Vancomycin Last Dose Date 07/25/20 Vancomycin Last Dose Time 2300 Glucose (Fingerstick) 149 mg/dL (70-99) 121 mg/dL (70-99) 119 mg/dL (70-99) Test 07/27/20 06:00 07/27/20 08:05 07/27/20 17:24 White Blood Count 10.6 x10^3/uL (4.0-11.0) Red Blood Count 1.79 x10^6/uL (4.30-5.70) Hemoglobin 6.5 g/dL (13.0-17.5) Hematocrit 17.8 % (39.0-53.0) Mean Corpuscular Volume 99 fL (79-100) Mean Corpuscular Hemoglobin 36 pg (25-35) Mean Corpuscular Hemoglobin Concent 37 g/dL (31-37) Red Cell Distribution Width 14.4 % (11.5-14.5) Platelet Count 208 x10^3/uL (140-400) Neutrophils (%) (Auto) 85 % (31-73) Lymphocytes (%) (Auto) 7 % (24-48) Monocytes (%) (Auto) 5 % (0-9) Eosinophils (%) (Auto) 3 % (0-3) Basophils (%) (Auto) 0 % (0-3) Neutrophils # (Auto) 9.0 x10^3/uL (1.8-7.7) Lymphocytes # (Auto) 0.7 x10^3/uL (1.0-4.8) Monocytes # (Auto) 0.5 x10^3/uL (0.0-1.1) Eosinophils # (Auto) 0.3 x10^3/uL (0.0-0.7) Basophils # (Auto) 0.0 x10^3/uL (0.0-0.2) Sodium Level 131 mmol/L (136-145) Potassium Level 3.0 mmol/L (3.5-5.1) Chloride Level 96 mmol/L (98-107) Carbon Dioxide Level 30 mmol/L (21-32) Anion Gap 5 (6-14) Blood Urea Nitrogen 8 mg/dL (8-26) Creatinine 0.3 mg/dL (0.7-1.3) Estimated GFR (Cockcroft-Gault) > 300.0 BUN/Creatinine Ratio 27 (6-20) Glucose Level 114 mg/dL (70-99) Calcium Level 8.3 mg/dL (8.5-10.1) Phosphorus Level 3.5 mg/dL (2.6-4.7) Magnesium Level 1.8 mg/dL (1.8-2.4) Total Bilirubin 0.6 mg/dL (0.2-1.0) Aspartate Amino Transf (AST/SGOT) 22 U/L (15-37) Alanine Aminotransferase (ALT/SGPT) 33 U/L (16-63) Alkaline Phosphatase 145 U/L (46-116) Total Protein 5.7 g/dL (6.4-8.2) Albumin 1.4 g/dL (3.4-5.0) Albumin/Globulin Ratio 0.3 (1.0-1.7) O2 Saturation 92 % (92-99) Arterial Blood pH 7.41 (7.35-7.45) Arterial Blood pH (Temp corrected) 7.39 Arterial Blood pCO2 at Patient Temp 47 mmHg (35-46) Arterial Blood pCO2 (Temp correct) 51 mmHg Arterial Blood pO2 at Patient Temp 69 mmHg (75-108) Arterial Blood pO2 (Temp corrected) 76 mmHg Arterial Blood HCO3 30 mmol/L (21-28) Arterial Blood Base Excess 4 mmol/L (-3-3) FiO2 45 vent Glucose (Fingerstick) 169 mg/dL (70-99) Laboratory Tests Test 07/27/20 06:00 07/27/20 08:05 07/27/20 17:24 White Blood Count 10.6 x10^3/uL (4.0-11.0) Red Blood Count 1.79 x10^6/uL (4.30-5.70) Hemoglobin 6.5 g/dL (13.0-17.5) Hematocrit 17.8 % (39.0-53.0) Mean Corpuscular Volume 99 fL (79-100) Mean Corpuscular Hemoglobin 36 pg (25-35) Mean Corpuscular Hemoglobin Concent 37 g/dL (31-37) Red Cell Distribution Width 14.4 % (11.5-14.5) Platelet Count 208 x10^3/uL (140-400) Neutrophils (%) (Auto) 85 % (31-73) Lymphocytes (%) (Auto) 7 % (24-48) Monocytes (%) (Auto) 5 % (0-9) Eosinophils (%) (Auto) 3 % (0-3) Basophils (%) (Auto) 0 % (0-3) Neutrophils # (Auto) 9.0 x10^3/uL (1.8-7.7) Lymphocytes # (Auto) 0.7 x10^3/uL (1.0-4.8) Monocytes # (Auto) 0.5 x10^3/uL (0.0-1.1) Eosinophils # (Auto) 0.3 x10^3/uL (0.0-0.7) Basophils # (Auto) 0.0 x10^3/uL (0.0-0.2) Sodium Level 131 mmol/L (136-145) Potassium Level 3.0 mmol/L (3.5-5.1) Chloride Level 96 mmol/L (98-107) Carbon Dioxide Level 30 mmol/L (21-32) Anion Gap 5 (6-14) Blood Urea Nitrogen 8 mg/dL (8-26) Creatinine 0.3 mg/dL (0.7-1.3) Estimated GFR (Cockcroft-Gault) > 300.0 BUN/Creatinine Ratio 27 (6-20) Glucose Level 114 mg/dL (70-99) Calcium Level 8.3 mg/dL (8.5-10.1) Phosphorus Level 3.5 mg/dL (2.6-4.7) Magnesium Level 1.8 mg/dL (1.8-2.4) Total Bilirubin 0.6 mg/dL (0.2-1.0) Aspartate Amino Transf (AST/SGOT) 22 U/L (15-37) Alanine Aminotransferase (ALT/SGPT) 33 U/L (16-63) Alkaline Phosphatase 145 U/L (46-116) Total Protein 5.7 g/dL (6.4-8.2) Albumin 1.4 g/dL (3.4-5.0) Albumin/Globulin Ratio 0.3 (1.0-1.7) O2 Saturation 92 % (92-99) Arterial Blood pH 7.41 (7.35-7.45) Arterial Blood pH (Temp corrected) 7.39 Arterial Blood pCO2 at Patient Temp 47 mmHg (35-46) Arterial Blood pCO2 (Temp correct) 51 mmHg Arterial Blood pO2 at Patient Temp 69 mmHg (75-108) Arterial Blood pO2 (Temp corrected) 76 mmHg Arterial Blood HCO3 30 mmol/L (21-28) Arterial Blood Base Excess 4 mmol/L (-3-3) FiO2 45 vent Glucose (Fingerstick) 169 mg/dL (70-99) Comments CXR reviewed 1. Stable life support devices. 2. Bilateral perihilar and basilar opacities, progressed in the left base Impression . IMPRESSION: 1. Acute hypoxemic respiratory failure. 2. Acute pulmonary embolism with cor pulmonale. 3. COVID-[address] chest revealing ground glass opacities. 5. Hypertension. 6. History of bronchitis. 7. Elevated troponin. 8. Acute kidney injury. 9. Leukocytosis. 10. Covid-19 positive Plan . Continue current ventilatory support, FiO2 45% and a PEEP of 6, 02 titration as tolerated tachypneac paradoxical abd motion at time start vec prn surgery following for trach s/p PRBC and monitor HGB, transfuse if less than 7.0 off eliquis, consider IV heparin when ready to restart A/C reviewed chest x-ray and ABG, Follow cardiology recommendations Antibiotics per ID-- Vasopressors if need for hypotension, keep MAP above 65 Has completed full course of remdesivir Continue tube feeding for nutritional support DVT/GI prophylaxis,Protonix Discussed with RN and RT Pt. is FULL CODE critically ill cc time 30 min no overlap TRACIE CAVAZOS MD Jul 28, 2020 05:57
[2020-07-28] MEDS: INSULIN LISPRO 300 UNITS/3 ML VIAL. SQ SCH ×2 (06:00→19:00)
--- NOTE | 2020-07-28 06:00 | NUR ---
Dr Cheema here, updated on overall condition an discussed increase in sedation and patient has continuous coughing episodes; orders received for Vecuronium 6MG IVP PRN Q6HRS.
[2020-07-28] MEDS ORDERED: VECURONIUM BOLUS 10 MG VIAL. IV ONE ×2 (08:45→09:30)
[2020-07-28] MEDS: PANTOPRAZOLE IV PUSH 40 MG VIAL. IVP SCH ×2 (08:54→09:34)
[2020-07-28] MEDS: CHOLECALCIFEROL (VITAMIN D3) 5,000 UNIT CAPSULE PO SCH (09:00)
[2020-07-28] MEDS: ZINC SULFATE 220 MG CAPSULE. PO SCH (09:00)
--- NOTE | 2020-07-28 09:50 | PDOC ---
PROGRESS NOTES Date of Service: DATE: 07/28/20 TIME: 09:50 Chief Complaint Chief Complaint IMPRESSION Acute hypoxic respiratory failure requiring VENT SUPPORT Acute hypoxic respiratory failure/ARDS /pneumonia Bilateral perihilar and basilar opacities, progressed in the left base. 07-26 COVID-19 Subsegmental bilateral PE Leukocytosis NSTEMI AKA Lactic acidosis Hyponatremia, RESOLVED hgb 6.5 07-27, transfused 1 unit prbc's hyp[okalemia, on replacement Plan: Appreciate pulmonology recommendations Continue current ventilatory support, currently on 70% and PEEP of 6, avoid increasing PEEP 2/2 risk of barotrauma Follow chest x-ray and ABG, vent management as per pulmonology Heparin has been transitioned to Xarelto Solu-Medrol 40 mg every 12 hours Appreciate ID recommendationscontinue Remdesivir and empiric antibiotics IV fluids Discussed with RN and SW. Antibiotics per ID-- off ABX, infectious disease following increasing leukocyt osis has completed full course of remdesivir continue tube feeding for nutritional support 35 MIN CC TIME History of Present Illness History of Present Illness t max 102 f fio2 50% 07/21/2020 Patient no acute events reported overnight. Patient continues to require a lot of support from vent. Discussed with RN 09/19/2019 Patient continues to be pretty much the same , fio2 is at 70%, heparin 07/19/2020 Patient hypotensive today, we will follow recommendations from critical gericare aide. Vent management as per oracle distribution consultant, no other complaints. 07/18/2020 Patient with no acute events reported overnight, fio2 is now at 75% PEEP of 6, Vent management as per pulmonary oracle distribution consultant slight increase in temperature noted over the lat 24 hours. Will continue to follow 07/17/2020 Patient with no acute events reported overnight, contineus to require an fio2 of 80%, continue with supportive measures. 07/16/2020 Patient with no acute events reported overnight, patient continues to require quite a bit of FiO2 at 80%. Vent management as per oracle distribution consultant, will place a call to family members after rounding. Discussed with RN 07/15/2020 Patient seen and examined bedside in the ICU. FiO2 80% PEEP of 6.pH 7.56, PCO2 32, PO2 56, HCO3 28. Will adjust respiratory rate accordingly to correct pH.> 50% time spent in patient chart, labs, and imaging review and in discussion with RN and SW 07/14/2020 Patient seen and examined bedside. FiO2 65% and PEEP of 6 on vent. ABG: pH 7.26, PCO2 77, PO2 114, HCO3 34. We will adjust respiratory rate or tidal volume to titrate pH.> 50% time spent in patient chart, labs, and imaging review and in discussion with RN and JAVIER 07/13/2020 No acute events overnight. Patient examined bedside sedated and intubated. FiO2 70% PEEP of 6. Improved ABGs.> 50% time spent in patient chart, labs, and imaging review and in discussion with RN and JAVIER 07/12/2020 Patient seen and examined in the ICU. Sedated and intubated. FiO2 65, PEEP of 8 with improved oxygenation. pH 7.4, PCO2 48, PO2 94, HCO3 30. +500 cc fluid balance.> 50% time spent in patient chart, labs, and imaging review and in discussion with RN and JAVIER 07/11/2020 Patient seen and examined bedside in the ICU. Patient continues to be intubated and sedated. FiO2 75%, PEEP of 10. pH 7.40, PCO2 44, PO2 is 135, HCO3 26. Can likely decrease FiO2 due to improved oxygenation. +173 cc in the past 24 hours 07/10/2020 Patient seen and examined bedside in ICU. Patient is intubated and sedated. FiO2 90%, PEEP of 10, respiratory rate of 30. ABG: pH is 7.41, PCO2 42, PO2 113, HCO3 26. 07/09/2020 Patient seen and examined in the ICU. Intubated and sedated. Vent settings FiO2 90%, PEEP of 10, respiratory rate of 30. 07/05: Patient seen in ICU, still intubated and sedated. COVID-19 pending. Patient remains on heparin infusion. Discussed with RN, will try to have centr al line placed per anesthesia. 07/06: Patient seen in ICU. Still FiO2 100% on vent and sedated. COVID-19 positive. Continue heparin infusion, Zosyn, steroids. 07/07: Covid positive patient seen in ICU. On vent with FiO2 100%, PEEP 10. Continue remdesivir, steroids, Zosyn. Continue to monitor 07/08: Patient seen in Covid ICU. Still on vent with FiO2 100%, PEEP 10. Afebrile. No acute events overnight. Continue steroids, antibiotics, and remdesivir. Patient is 49-year-old male with past medical history of hypertension, who presents to the ED with complaints of worsening shortness of breath over the past 5 days. Associated sore throat, fatigue, and generalized weakness. Patient was reportedly tested for COVID-19 last Thursday, but he had negative test results. His symptoms acutely worsened yesterday. Upon arrival to the ER his oxygen saturation was 60% on room air. He was placed on BiPAP and admitted to the ICU. Patient was subsequently intubated due to worsening respiratory failure. Vitals Vitals Vital Signs Date Time Temp Pulse Resp B/P (MAP) Pulse Ox O2 Delivery O2 Flow Rate FiO2 07/28/20 08:34 100 Ventilator 07/28/20 07:00 86 32 121/66 (84) 07/28/20 06:00 100.0 100.0 Physical Exam Physical Exam General intubated/sedated HEENT normocephalic atraumatic, OGT/ETT present LUNGS: Coarse breath sounds anteriorly HEART: S1-S2 no murmurs ABDOMEN: Nondistended, soft bowel sounds present Fernandez in place SKIN: No generalized rash Right upper extremity PICC line clean Neuro intubated/sedated General: No acute distress Heart: Regular rate (SR/ST) Lungs: Other (orally intubated, clear ) Abdomen: Other (Nondistended) Extremities: No clubbing, No cyanosis Skin: No rashes, No breakdown Labs LABS Laboratory Tests Test 07/27/20 17:24 07/28/20 05:22 Glucose (Fingerstick) 169 mg/dL (70-99) 92 mg/dL (70-99) Assessment and Plan Assessmemt and Plan Problems Medical Problems: (1) Acute respiratory failure with hypoxia Status: Acute (2) PRIYA (acute kidney injury) Status: Acute (3) Elevated troponin I level Status: Acute (4) Pulmonary emboli Status: Acute (5) Suspected COVID-19 virus infection Status: Acute Comment Review of Relevant I have reviewed the following items trino (where applicable) has been applied. Labs Laboratory Tests Test 07/26/20 12:07 07/26/20 17:29 07/27/20 00:15 07/27/20 06:00 Glucose (Fingerstick) 149 mg/dL (70-99) 121 mg/dL (70-99) 119 mg/dL (70-99) White Blood Count 10.6 x10^3/uL (4.0-11.0) Red Blood Count 1.79 x10^6/uL (4.30-5.70) Hemoglobin 6.5 g/dL (13.0-17.5) Hematocrit 17.8 % (39.0-53.0) Mean Corpuscular Volume 99 fL (79-100) Mean Corpuscular Hemoglobin 36 pg (25-35) Mean Corpuscular Hemoglobin Concent 37 g/dL (31-37) Red Cell Distribution Width 14.4 % (11.5-14.5) Platelet Count 208 x10^3/uL (140-400) Neutrophils (%) (Auto) 85 % (31-73) Lymphocytes (%) (Auto) 7 % (24-48) Monocytes (%) (Auto) 5 % (0-9) Eosinophils (%) (Auto) 3 % (0-3) Basophils (%) (Auto) 0 % (0-3) Neutrophils # (Auto) 9.0 x10^3/uL (1.8-7.7) Lymphocytes # (Auto) 0.7 x10^3/uL (1.0-4.8) Monocytes # (Auto) 0.5 x10^3/uL (0.0-1.1) Eosinophils # (Auto) 0.3 x10^3/uL (0.0-0.7) Basophils # (Auto) 0.0 x10^3/uL (0.0-0.2) Sodium Level 131 mmol/L (136-145) Potassium Level 3.0 mmol/L (3.5-5.1) Chloride Level 96 mmol/L (98-107) Carbon Dioxide Level 30 mmol/L (21-32) Anion Gap 5 (6-14) Blood Urea Nitrogen 8 mg/dL (8-26) Creatinine 0.3 mg/dL (0.7-1.3) Estimated GFR (Cockcroft-Gault) > 300.0 BUN/Creatinine Ratio 27 (6-20) Glucose Level 114 mg/dL (70-99) Calcium Level 8.3 mg/dL (8.5-10.1) Phosphorus Level 3.5 mg/dL (2.6-4.7) Magnesium Level 1.8 mg/dL (1.8-2.4) Total Bilirubin 0.6 mg/dL (0.2-1.0) Aspartate Amino Transf (AST/SGOT) 22 U/L (15-37) Alanine Aminotransferase (ALT/SGPT) 33 U/L (16-63) Alkaline Phosphatase 145 U/L (46-116) Total Protein 5.7 g/dL (6.4-8.2) Albumin 1.4 g/dL (3.4-5.0) Albumin/Globulin Ratio 0.3 (1.0-1.7) Test 07/27/20 08:05 07/27/20 17:24 07/28/20 05:22 O2 Saturation 92 % (92-99) Arterial Blood pH 7.41 (7.35-7.45) Arterial Blood pH (Temp corrected) 7.39 Arterial Blood pCO2 at Patient Temp 47 mmHg (35-46) Arterial Blood pCO2 (Temp correct) 51 mmHg Arterial Blood pO2 at Patient Temp 69 mmHg (75-108) Arterial Blood pO2 (Temp corrected) 76 mmHg Arterial Blood HCO3 30 mmol/L (21-28) Arterial Blood Base Excess 4 mmol/L (-3-3) FiO2 45 vent Glucose (Fingerstick) 169 mg/dL (70-99) 92 mg/dL (70-99) Laboratory Tests Test 07/27/20 17:24 07/28/20 05:22 Glucose (Fingerstick) 169 mg/dL (70-99) 92 mg/dL (70-99) Microbiology 07/27/20 Blood Culture - Preliminary, Resulted NO GROWTH AFTER 1 DAY 07/23/20 Urine Culture - Final, Complete 07/23/20 Antimicrobic Susceptibility - Final, Complete Medications Current Medications Ceftriaxone Sodium (Rocephin) 1 gm 1X ONCE IVP Last administered on 07/03/20at 20:11; Start 07/03/20 at 19:15; Stop 07/03/20 at 19:19; Status DC Azithromycin (Zithromax) 500 mg 1X ONCE PO Last administered on 07/03/20at 20:11; Start 07/03/20 at 19:15; Stop 07/03/20 at 19:19; Status DC Sodium Chloride 1,000 ml @ 1,000 mls/hr 1X ONCE IV Last administered on 07/03/20at 20:11; Start 07/03/20 at 19:15; Stop 07/03/20 at 20:14; Status DC Sodium Chloride 1,000 ml @ 1,000 mls/hr 1X ONCE IV Last administered on 07/03/20at 19:15; Start 07/03/20 at 19:15; Stop 07/03/20 at 20:14; Status DC Iohexol (Omnipaque 350 Mg/ml) 90 ml 1X ONCE IV Last administered on 07/03/20at 21:00; Start 07/03/20 at 20:45; Stop 07/03/20 at 20:46; Status DC Info (CONTRAST GIVEN -- Rx MONITORING) 1 each PRN DAILY PRN MC SEE COMMENTS; Start 07/03/20 at 20:45; Stop 07/05/20 at 20:44; Status DC Enoxaparin Sodium (Lovenox 150mg Syringe) 150 mg 1X ONCE SQ Last administered on 07/03/20at 22:45; Start 07/03/20 at 23:00; Stop 07/03/20 at 23:01; Status DC Ondansetron HCl (Zofran) 4 mg PRN Q8HRS PRN IV NAUSEA/VOMITING 1ST CHOICE; Start 07/03/20 at 22:30; Stop 07/04/20 at 22:29; Status DC Morphine Sulfate (Morphine Sulfate) 2 mg PRN Q2HR PRN IV SEVERE PAIN 7-10; Start 07/03/20 at 22:30; Stop 07/04/20 at 22:29; Status DC Sodium Chloride 1,000 ml @ 100 mls/hr Q10H IV Last administered on 07/05/20at 00:35; Start 07/03/20 at 23:00; Stop 07/04/20 at 22:59; Status DC Acetaminophen (Tylenol) 650 mg PRN Q4HRS PRN PO FEVER > 100.3'F; Start 07/03/20 at 22:30; Stop 07/04/20 at 22:29; Status DC Throat Lozenges (Cepacol Sore Throat Lozenge) 1 lety PRN Q2HRS PRN PO SORE THROAT; Start 07/04/20 at 01:15 Furosemide (Lasix) 20 mg 1X ONCE IVP Last administered on 07/04/20at 10:10; Start 07/04/20 at 10:00; Stop 07/04/20 at 10:01; Status DC Succinylcholine Chloride (Anectine) 200 mg STK-MED ONCE .ROUTE ; Start 07/04/20 at 09:09; Stop 07/04/20 at 09:09; Status DC Etomidate (Amidate) 20 mg STK-MED ONCE IV ; Start 07/04/20 at 09:09; Stop 07/04/20 at 09:09; Status DC Fentanyl Citrate 30 ml @ 0 mls/hr CONT PRN IV SEE PROTOCOL Last administered on 07/04/20at 09:36; Start 07/04/20 at 09:15; Stop 07/04/20 at 14:36; Status DC Propofol 100 ml @ 0 mls/hr CONT PRN IV SEE PROTOCOL Last administered on 07/28/20at 02:23; Start 07/04/20 at 09:15 Midazolam HCl 100 ml @ 0 mls/hr CONT PRN IV SEE PROTOCOL Last administered on 07/28/20at 02:44; Start 07/04/20 at 09:15 Midazolam HCl (Versed) 5 mg 1X STAT IV Last administered on 07/04/20at 09:41; Start 07/04/20 at 09:21; Stop 07/04/20 at 09:22; Status DC Midazolam HCl (Versed) 5 mg STK-MED ONCE .ROUTE ; Start 07/04/20 at 09:21; Stop 07/04/20 at 09:21; Status DC Etomidate (Amidate) 10 mg 1X ONCE IV Last administered on 07/04/20at 09:37; Start 07/04/20 at 09:30; Stop 07/04/20 at 09:31; Status DC Succinylcholine Chloride (Anectine) 200 mg 1X ONCE IV Last administered on 07/04/20at 09:38; Start 07/04/20 at 09:30; Stop 07/04/20 at 09:31; Status DC Vecuronium [place] (Norcuron Bolus) 6 mg 1X ONCE IV Last administered on 07/04/20at 09:38; Start 07/04/20 at 09:45; Stop 07/04/20 at 09:46; Status DC Vecuronium [place] (Norcuron Bolus) 10 mg STK-MED ONCE IV ; Start 07/04/20 at 09:33; Stop 07/04/20 at 09:33; Status DC Pantoprazole Sodium (PROTONIX VIAL for IV PUSH) 40 mg DAILYAC IVP Last administered on 07/28/20at 09:34; Start 07/04/20 at 12:30 Methylprednisolone Sodium Succinate (SOLU-Medrol 40MG VIAL) 40 mg Q8HRS IV Last administered on 07/11/20at 05:41; Start 07/04/20 at 14:00; Stop 07/11/20 at 11:36; Status DC Piperacillin Sod/ Tazobactam Sod (Zosyn Per Pharmacy) 1 each PRN DAILY PRN MC SEE COMMENTS; Start 07/04/20 at 12:00; Stop 07/18/20 at 07:46; Status DC Heparin Sodium/ Dextrose 250 ml @ 0 mls/hr CONT PRN IV PER PROTOCOL Last administered on 07/15/20at 02:09; Start 07/04/20 at 12:00; Stop 07/16/20 at 12:09; Status DC Heparin Sodium (Porcine) (Heparin Sodium) 2,500 unit PRN Q6HRS PRN IV FOR UFH LEVEL LESS THAN 0.2 Last administered on 07/15/20at 09:19; Start 07/04/20 at 12:00; Stop 07/16/20 at 12:09; Status DC Heparin Sodium (Porcine) (Heparin Sodium) 1,250 unit PRN Q6HRS PRN IV FOR UFH LEVEL 0.2 - 0.29 Last administered on 07/05/20at 18:27; Start 07/04/20 at 12:00; Stop 07/16/20 at 12:09; Status DC Piperacillin Sod/ Tazobactam Sod 3.375 gm/Sodium Chloride 50 ml @ 100 mls/hr Q6HRS IV Last administered on 07/17/20at 05:10; Start 07/04/20 at 12:00; Stop 07/17/20 at 11:11; Status DC Zinc Sulfate (Orazinc) 220 mg DAILY PO Last administered on 07/27/20at 07:58; Start 07/05/20 at 09:00 Ascorbic Acid (Vitamin C) 500 mg Q6HRS PO Last administered on 07/28/20at 05:15; Start 07/04/20 at 18:00 Vitamin D (Vitamin D3) 5,000 unit DAILY PO Last administered on 07/27/20at 07:58; Start 07/05/20 at 09:00 Vecuronium [place] (Norcuron Bolus) 6 mg 1X ONCE IV Last administered on 07/04/20at 13:27; Start 07/04/20 at 13:15; Stop 07/04/20 at 13:16; Status DC Norepinephrine Bitartrate 8 mg/ Dextrose 258 ml @ 16.061 mls/ hr CONT PRN IV PER PROTOCOL Last administered on 07/05/20at 00:33; Start 07/04/20 at 13:15; Stop 07/18/20 at 11:01; Status DC Fentanyl Citrate 55 ml @ 0 mls/hr CONT PRN IV SEE PROTOCOL Last administered on 07/27/20at 23:20; Start 07/04/20 at 14:45 Vecuronium [place] (Norcuron Bolus) 6 mg Q4H PRN IV OVERBREATHING VENT/out of sync Last administered on 07/20/20at 12:32; Start 07/04/20 at 16:45; Stop 07/22/20 at 09:34; Status DC Furosemide (Lasix) 40 mg 1X ONCE IVP Last administered on 07/05/20at 14:17; Start 07/05/20 at 13:30; Stop 07/05/20 at 13:31; Status DC Insulin Human Lispro (HumaLOG) 0-5 UNITS Q6HRS SQ Last administered on 07/11/20at 05:42; Start 07/05/20 at 18:00; Stop 07/11/20 at 07:54; Status DC Dextrose (Dextrose 50%-Water Syringe) 12.5 gm PRN Q15MIN PRN IV SEE COMMENTS; Start 07/05/20 at 14:15 Insulin Human Lispro (HumaLOG) 2 units 1X ONCE SQ Last administered on 07/05/20at 14:19; Start 07/05/20 at 14:30; Stop 07/05/20 at 14:31; Status DC Remdesivir 200 mg/ Sodium Chloride 210 ml @ 210 mls/hr 1X ONCE IV Last administered on 07/06/20at 14:51; Start 07/06/20 at 14:30; Stop 07/06/20 at 15:29; Status DC Remdesivir 100 mg/ Sodium Chloride 230 ml @ 460 mls/hr Q24H IV Last administered on 07/10/20at 13:59; Start 07/07/20 at 14:30; Stop 07/10/20 at 14:59; Status DC Insulin Human Lispro (HumaLOG) 0-9 UNITS TIDWMEALS SQ Last administered on 07/12/20at 11:31; Start 07/11/20 at 08:00; Stop 07/13/20 at 10:17; Status DC Methylprednisolone Sodium Succinate (SOLU-Medrol 40MG VIAL) 40 mg DAILY IV Last administered on 07/14/20at 07:57; Start 07/12/20 at 09:00; Stop 07/14/20 at 09:26; Status DC Acetaminophen (Tylenol) 650 mg PRN Q6HRS PRN PEG MILD PAIN / TEMP > 100.3'F Last administered on 07/27/20at 17:19; Start 07/12/20 at 12:00 Vecuronium [place] 50 mg/ Miscellaneous 50 ml @ 4.094 mls/ hr CONT PRN IV SEE I/O RECORD Last administered on 07/18/20at 01:56; Start 07/12/20 at 14:45; Stop 07/22/20 at 09:34; Status DC Insulin Human Lispro (HumaLOG) 0-9 UNITS Q6HRS SQ Last administered on 07/25/20at 11:49; Start 07/13/20 at 12:00; Stop 07/27/20 at 10:41; Status DC Methylprednisolone Sodium Succinate (SOLU-Medrol 40MG VIAL) 40 mg Q12HR IV Last administered on 07/16/20at 09:57; Start 07/14/20 at 21:00; Stop 07/16/20 at 12:10; Status DC Info (Anti-Coagulation Monitoring By Pharmacy) 1 each PRN DAILY PRN MC SEE COMMENTS Last administered on 07/26/20at 08:59; Start 07/16/20 at 08:15 Apixaban (Eliquis) 10 mg BID PO Last administered on 07/22/20at 20:39; Start 07/16/20 at 13:00; Stop 07/22/20 at 21:01; Status DC Methylprednisolone Sodium Succinate (SOLU-Medrol 40MG VIAL) 40 mg DAILY IV Last administered on 07/16/20at 12:22; Start 07/16/20 at 13:00; Stop 07/17/20 at 08:24; Status DC Apixaban (Eliquis) 5 mg BID PO Last administered on 07/26/20at 20:31; Start 07/23/20 at 09:00; Stop 07/27/20 at 12:19; Status DC Methylprednisolone Sodium Succinate (SOLU-Medrol 40MG VIAL) 40 mg Q12HR IV Last administered on 07/20/20at 07:54; Start 07/17/20 at 09:00; Stop 07/20/20 at 10:20; Status DC Multi-Ingred Cream/Lotion/Oil/ Oint (Artificial Tears Eye Ointment) 1 wenceslao PRN Q1HR PRN OU DRY EYE Last administered on 07/27/20at 17:19; Start 07/18/20 at 10:45 Furosemide (Lasix) 40 mg 1X ONCE IVP Last administered on 07/19/20at 00:55; Start 07/19/20 at 00:45; Stop 07/19/20 at 00:46; Status DC Methylprednisolone Sodium Succinate (SOLU-Medrol 40MG VIAL) 40 mg DAILY IV Last administered on 07/22/20at 09:08; Start 07/21/20 at 09:00; Stop 07/22/20 at 09:36; Status DC Lorazepam (Ativan Inj) 2 mg PRN Q1HR PRN IV SEE COMMENTS Last administered on 07/24/20at 06:51; Start 07/21/20 at 12:30 Vecuronium [place] (Norcuron Bolus) 6 mg PRN Q6HRS PRN IV SEDATION Last administered on 07/22/20at 12:02; Start 07/22/20 at 12:00; Stop 07/26/20 at 21:14; Status DC Piperacillin Sod/ Tazobactam Sod 4.5 gm/Sodium Chloride 100 ml @ 200 mls/hr Q6HRS IV Last administered on 07/26/20at 05:36; Start 07/24/20 at 12:00; Stop 07/26/20 at 10:53; Status DC Potassium Chloride/Water 100 ml @ 100 mls/hr Q1H IV ; Start 07/24/20 at 15:30; Stop 07/24/20 at 19:29; Status UNV Potassium Chloride/Water 100 ml @ 100 mls/hr Q1H IV ; Start 07/24/20 at 15:30; Stop 07/24/20 at 17:29; Status UNV Potassium Chloride/Water 100 ml @ 100 mls/hr Q1H IV ; Start 07/24/20 at 15:30; Stop 07/24/20 at 23:29; Status UNV Potassium Chloride/Water 100 ml @ 100 mls/hr Q1H IV ; Start 07/24/20 at 15:30; Stop 07/24/20 at 19:29; Status UNV Potassium Chloride/Water 100 ml @ 100 mls/hr Q1H IV ; Start 07/24/20 at 15:30; Stop 07/25/20 at 03:29; Status UNV Potassium Chloride/Water 100 ml @ 100 mls/hr Q1HR IV ; Start 07/24/20 at 16:00; Stop 07/24/20 at 21:59; Status UNV Magnesium Sulfate 100 ml @ 50 mls/hr DAILY IV ; Start 07/25/20 at 09:00; Stop 07/28/20 at 08:59; Status UNV Sodium Phosphate 20 mmol/Sodium Chloride 256.6667 ml @ 62.5 mls/hr 1X ONCE IV ; Start 07/24/20 at 15:30; Stop 07/24/20 at 19:36; Status UNV Sodium Phosphate 30 mmol/Sodium Chloride 260 ml @ 62.5 mls/hr 1X ONCE IV ; Start 07/24/20 at 15:30; Stop 07/24/20 at 19:39; Status UNV Potassium Phosphate 13.6 mmol/Sodium Chloride 254.5333 ml @ 62.5 mls/hr Q4H IV ; Start 07/24/20 at 15:30; Stop 07/25/20 at 03:29; Status UNV Info (Icu Electrolyte Protocol) 1 ea CONT PRN PRN MC SEE COMMENTS; Start 07/24/20 at 15:45 Vancomycin HCl (Vanco Per Pharmacy) 1 each PRN DAILY PRN MC SEE COMMENTS Last administered on 07/26/20at 08:53; Start 07/25/20 at 07:00; Stop 07/26/20 at 21:14; Status DC Vancomycin HCl 2 gm/Sodium Chloride 500 ml @ 250 mls/hr 1X ONCE IV Last administered on 07/25/20at 07:06; Start 07/25/20 at 07:00; Stop 07/25/20 at 08:59; Status DC Vancomycin HCl 1.25 gm/Sodium Chloride 250 ml @ 167 mls/hr Q8H IV Last administered on 07/25/20at 22:44; Start 07/25/20 at 15:00; Stop 07/26/20 at 07:31; Status DC Vancomycin HCl (Vancomycin Trough Level) 1 each 1X ONCE MC Last administered on 07/26/20at 06:13; Start 07/26/20 at 06:30; Stop 07/26/20 at 06:31; Status DC Vancomycin HCl 1.5 gm/Sodium Chloride 500 ml @ 250 mls/hr Q8H IV Last administered on 07/26/20at 15:42; Start 07/26/20 at 08:00; Stop 07/26/20 at 21:14; Status DC Vancomycin HCl (Vancomycin Trough Level) 1 each 1X ONCE MC ; Start 07/27/20 at 07:30; Stop 07/27/20 at 07:31; Status Cancel Meropenem 500 mg/ Sodium Chloride 50 ml @ 100 mls/hr Q6HRS IV Last administered on 07/28/20at 06:10; Start 07/26/20 at 12:00 Potassium Chloride/Water 100 ml @ 100 mls/hr Q1H IV Last administered on 07/27/20at 11:29; Start 07/27/20 at 10:30; Stop 07/27/20 at 12:29; Status DC Insulin Human Lispro (HumaLOG) 0-9 UNITS [id number] SQ Last administered on 07/27/20at 18:17; Start 07/27/20 at 18:00 Linezolid/Dextrose 300 ml @ 300 mls/hr Q12HR IV Last administered on 07/28/20at 09:34; Start 07/27/20 at 12:30 Vecuronium [place] (Norcuron Bolus) 6 mg PRN Q6HRS ONCE IV ; Start 07/28/20 at 08:45; Stop 07/28/20 at 09:11; Status DC Vecuronium [place] (Norcuron Bolus) 6 mg 1X ONCE IV Last administered on 07/28/20at 09:34; Start 07/28/20 at 09:30; Stop 12/5/20 at 09:31; Status DC Vitals/I & O Vital Sign - Last 24 Hours 07/27/20 07/27/20 07/27/20 07/27/20 10:00 11:38 11:40 11:53 Temp 101.0 100.0 99.6 101.0 100.0 99.6 Pulse 92 80 79 Resp B/P (MAP) 121/80 (94) 90/63 (72) 98/64 Pulse Ox 99 100 99 O2 Delivery Ventilator Ventilator Ventilator 07/27/20 07/27/20 07/27/20 07/27/20 12:16 12:17 12:30 12:45 Temp 99.5 99.5 Pulse 79 80 75 Resp B/P (MAP) 106/68 (81) 98/60 (73) 110/60 (77) Pulse Ox 100 100 100 O2 Delivery Ventilator Mechanical Ventilator Ventilator Ventilator 07/27/20 07/27/20 07/27/20 07/27/20 13:00 13:30 14:30 15:00 Temp 98.9 98.6 98.9 98.6 Pulse 79 82 78 84 Resp B/P (MAP) 113/64 (80) 106/60 (75) 116/55 (75) 98/46 (63) Pulse Ox 100 100 100 100 O2 Delivery Ventilator Ventilator Ventilator Ventilator 07/27/20 07/27/20 07/27/20 07/27/20 16:00 16:00 16:26 17:43 Temp 100.1 100.1 100.1 100.1 Pulse 84 82 Resp B/P (MAP) 101/52 (68) 101/52 (68) Pulse Ox 99 100 99 O2 Delivery Ventilator Mechanical Ventilator Ventilator Ventilator 07/27/20 07/27/20 07/27/20 07/27/20 18:18 19:00 20:00 20:00 Temp 100.2 100.2 Pulse 86 84 Resp B/P (MAP) 101/51 (68) Pulse Ox 100 98 O2 Delivery Ventilator Ventilator Mechanical Ventilator Ventilator 07/27/20 07/27/20 07/27/20 07/27/20 20:00 21:00 22:00 23:00 Temp 99.7 99.2 99.7 99.2 Pulse 82 82 80 81 Resp 22 B/P (MAP) 109/73 (85) 107/73 (84) 104/60 (75) 108/72 (84) Pulse Ox 100 100 100 100 O2 Delivery Ventilator Ventilator Ventilator Ventilator 07/27/20 07/27/20 07/27/20 07/28/20 23:50 23:59 23:59 00:00 Temp 99.6 99.6 Pulse 78 Resp 22 22 B/P (MAP) 115/73 (87) Pulse Ox 100 100 98 O2 Delivery Ventilator Ventilator Mechanical Ventilator Ventilator 07/28/20 07/28/20 07/28/20 07/28/20 01:00 02:00 03:00 04:00 Temp 100.7 100.4 100.7 100.4 Pulse 84 82 90 Resp 22 28 30 B/P (MAP) 125/75 (92) 135/73 (93) 122/68 (86) Pulse Ox 100 100 100 O2 Delivery Ventilator Ventilator Ventilator Mechanical Ventilator 07/28/20 07/28/20 07/28/20 07/28/20 04:00 04:00 05:00 06:00 Temp 100.4 100.0 100.4 100.0 Pulse 92 88 84 Resp 36 28 24 B/P (MAP) 140/80 (100) 117/67 (84) 131/77 (95) Pulse Ox 99 99 100 100 O2 Delivery Ventilator Ventilator Ventilator Ventilator 07/28/20 07/28/20 07:00 08:34 Pulse 86 Resp 32 B/P (MAP) 121/66 (84) Pulse Ox 100 100 O2 Delivery Ventilator Ventilator Intake and Output 07/27/20 07/27/20 07/28/20 15:00 23:00 07:00 Intake Total 885 ml 1597 ml 998 ml Output Total 425 ml 1335 ml 1090 ml Balance 460 ml 262 ml -92 ml Justicifation of Admission Dx: Justifications for Admission: Justification of Admission Dx: Yes REESE CASEY MD Jul 28, 2020 09:50
--- NOTE | 2020-07-28 11:21 | PDOC ---
Infectious Disease Note Subjective: Subjective Patient sedated /intubated Fever pattern improving s/p PRBCS PICC Line removal Vital Signs: Vital Signs Vital Signs Date Time Temp Pulse Resp B/P (MAP) Pulse Ox O2 Delivery O2 Flow Rate FiO2 07/28/20 08:34 100 Ventilator 07/28/20 07:00 86 32 121/66 (84) 07/28/20 06:00 100.0 100.0 Physical Exam: PHYSICAL EXAM General intubated/sedated HEENT normocephalic atraumatic, OGT/ETT present LUNGS: Coarse breath sounds anteriorly HEART: S1-S2 no murmurs ABDOMEN: Nondistended, soft bowel sounds present Fernandez in place SKIN: No generalized rash Right upper extremity PICC line removed PIV Clean Neuro intubated/sedated Medications: Inpatient Meds: Current Medications Medications (Trade) Dose Ordered Sig/Natalee Start Time Stop Time Status Last Admin Dose Admin Acetaminophen (Tylenol) 650 mg PRN Q6HRS PRN 07/12/20 12:00 07/27/20 17:19 650 MG Apixaban (Eliquis) 5 mg BID 07/23/20 09:00 07/27/20 12:19 DC 07/26/20 20:31 5 MG Ascorbic Acid (Vitamin C) 500 mg Q6HRS 07/04/20 18:00 07/28/20 05:15 500 MG Azithromycin (Zithromax) 500 mg 1X ONCE 07/03/20 19:15 07/03/20 19:19 DC 07/03/20 20:11 500 MG Ceftriaxone Sodium (Rocephin) 1 gm 1X ONCE 07/03/20 19:15 07/03/20 19:19 DC 07/03/20 20:11 1 GM Dextrose (Dextrose 50%-Water Syringe) 12.5 gm PRN Q15MIN PRN 07/05/20 14:15 Enoxaparin Sodium (Lovenox 150mg Syringe) 150 mg 1X ONCE 07/03/20 23:00 07/03/20 23:01 DC 07/03/20 22:45 150 MG Etomidate (Amidate) 10 mg 1X ONCE 07/04/20 09:30 07/04/20 09:31 DC 07/04/20 09:37 10 MG Fentanyl Citrate 55 ml @ 0 mls/hr CONT PRN 07/04/20 14:45 07/27/20 23:20 3 MLS/HR Furosemide (Lasix) 40 mg 1X ONCE 07/19/20 00:45 07/19/20 00:46 DC 07/19/20 00:55 40 MG Heparin Sodium (Porcine) (Heparin Sodium) 1,250 unit PRN Q6HRS PRN 07/04/20 12:00 07/16/20 12:09 DC 07/05/20 18:27 1,250 UNIT Heparin Sodium/ Dextrose 250 ml @ 0 mls/hr CONT PRN 07/04/20 12:00 07/16/20 12:09 DC 07/15/20 02:09 14.9 MLS/HR Info (Anti-Coagulation Monitoring By Pharmacy) 1 each PRN DAILY PRN 07/16/20 08:15 07/26/20 08:59 1 EACH Info (CONTRAST GIVEN -- Rx MONITORING) 1 each PRN DAILY PRN 07/03/20 20:45 07/05/20 20:44 DC Info (Icu Electrolyte Protocol) 1 ea CONT PRN PRN 07/24/20 15:45 Insulin Human Lispro (HumaLOG) 0-9 UNITS [id number] 07/27/20 18:00 07/27/20 18:17 4 UNITS Iohexol (Omnipaque 350 Mg/ml) 90 ml 1X ONCE 07/03/20 20:45 07/03/20 20:46 DC 07/03/20 21:00 90 ML Linezolid/Dextrose 300 ml @ 300 mls/hr Q12HR 07/27/20 12:30 07/28/20 09:34 300 MLS/HR Lorazepam (Ativan Inj) 2 mg PRN Q1HR PRN 07/21/20 12:30 07/24/20 06:51 2 MG Magnesium Sulfate 100 ml @ 50 mls/hr DAILY 07/25/20 09:00 07/28/20 08:59 UNV Meropenem 500 mg/ Sodium Chloride 50 ml @ 100 mls/hr Q6HRS 07/26/20 12:00 07/28/20 06:10 100 MLS/HR Methylprednisolone Sodium Succinate (SOLU-Medrol 40MG VIAL) 40 mg DAILY 07/21/20 09:00 07/22/20 09:36 DC 07/22/20 09:08 40 MG Midazolam HCl (Versed) 5 mg STK-MED ONCE 07/04/20 09:21 07/04/20 09:21 DC Morphine Sulfate (Morphine Sulfate) 2 mg PRN Q2HR PRN 07/03/20 22:30 07/04/20 22:29 DC Multi-Ingred Cream/Lotion/Oil/ Oint (Artificial Tears Eye Ointment) 1 wenceslao PRN Q1HR PRN 07/18/20 10:45 07/27/20 17:19 1 WENCESLAO Norepinephrine Bitartrate 8 mg/ Dextrose 258 ml @ 16.061 mls/ hr CONT PRN 07/04/20 13:15 07/18/20 11:01 DC 07/05/20 00:33 28.909 MLS/HR Ondansetron HCl (Zofran) 4 mg PRN Q8HRS PRN 07/03/20 22:30 07/04/20 22:29 DC Pantoprazole Sodium (PROTONIX VIAL for IV PUSH) 40 mg DAILYAC 07/04/20 12:30 07/28/20 09:34 40 MG Piperacillin Sod/ Tazobactam Sod (Zosyn Per Pharmacy) 1 each PRN DAILY PRN 07/04/20 12:00 07/18/20 07:46 DC Piperacillin Sod/ Tazobactam Sod 3.375 gm/Sodium Chloride 50 ml @ 100 mls/hr Q6HRS 07/04/20 12:00 07/17/20 11:11 DC 07/17/20 05:10 100 MLS/HR Piperacillin Sod/ Tazobactam Sod 4.5 gm/Sodium Chloride 100 ml @ 200 mls/hr Q6HRS 07/24/20 12:00 07/26/20 10:53 DC 07/26/20 05:36 200 MLS/HR Potassium Chloride/Water 100 ml @ 100 mls/hr Q1H 07/27/20 10:30 07/27/20 12:29 DC 07/27/20 11:29 100 MLS/HR Potassium Phosphate 13.6 mmol/Sodium Chloride 254.5333 ml @ 62.5 mls/hr Q4H 07/24/20 15:30 07/25/20 03:29 UNV Propofol 100 ml @ 0 mls/hr CONT PRN 07/04/20 09:15 07/28/20 02:23 10 MLS/HR Remdesivir 100 mg/ Sodium Chloride 230 ml @ 460 mls/hr Q24H 07/07/20 14:30 07/10/20 14:59 DC 07/10/20 13:59 460 MLS/HR Remdesivir 200 mg/ Sodium Chloride 210 ml @ 210 mls/hr 1X ONCE 07/06/20 14:30 07/06/20 15:29 DC 07/06/20 14:51 210 MLS/HR Sodium Chloride 1,000 ml @ 100 mls/hr Q10H 07/03/20 23:00 07/04/20 22:59 DC 07/05/20 00:35 100 MLS/HR Sodium Phosphate 20 mmol/Sodium Chloride 256.6667 ml @ 62.5 mls/hr 1X ONCE 07/24/20 15:30 07/24/20 19:36 UNV Sodium Phosphate 30 mmol/Sodium Chloride 260 ml @ 62.5 mls/hr 1X ONCE 07/24/20 15:30 07/24/20 19:39 UNV Succinylcholine Chloride (Anectine) 200 mg 1X ONCE 07/04/20 09:30 07/04/20 09:31 DC 07/04/20 09:38 200 MG Throat Lozenges (Cepacol Sore Throat Lozenge) 1 lety PRN Q2HRS PRN 07/04/20 01:15 Vancomycin HCl (Vanco Per Pharmacy) 1 each PRN DAILY PRN 07/25/20 07:00 07/26/20 21:14 DC 07/26/20 08:53 1 EACH Vancomycin HCl (Vancomycin Trough Level) 1 each 1X ONCE 07/27/20 07:30 07/27/20 07:31 Cancel Vancomycin HCl 1.25 gm/Sodium Chloride 250 ml @ 167 mls/hr Q8H 07/25/20 15:00 07/26/20 07:31 DC 07/25/20 22:44 167 MLS/HR Vancomycin HCl 1.5 gm/Sodium Chloride 500 ml @ 250 mls/hr Q8H 07/26/20 08:00 07/26/20 21:14 DC 07/26/20 15:42 250 MLS/HR Vancomycin HCl 2 gm/Sodium Chloride 500 ml @ 250 mls/hr 1X ONCE 07/25/20 07:00 07/25/20 08:59 DC 07/25/20 07:06 250 MLS/HR Vecuronium [place] 50 mg/ Miscellaneous 50 ml @ 4.094 mls/ hr CONT PRN 07/12/20 14:45 07/22/20 09:34 DC 07/18/20 01:56 7.5 MLS/HR Vecuronium [place] (Norcuron Bolus) 6 mg 1X ONCE 07/28/20 09:30 07/28/20 09:31 DC 07/28/20 09:34 6 MG Vitamin D (Vitamin D3) 5,000 unit DAILY 07/05/20 09:00 07/27/20 07:58 5,000 UNIT Zinc Sulfate (Orazinc) 220 mg DAILY 07/05/20 09:00 07/27/20 07:58 220 MG Labs: Lab Laboratory Tests Test 07/27/20 17:24 07/28/20 05:22 Glucose (Fingerstick) 169 mg/dL (70-99) 92 mg/dL (70-99) Objective: Assessment: Fever Leukocytosis improved COVID-19 positive. Status post remdesivir, steroids Acute hypoxic respiratory failure/ARDS /pneumonia Bilateral pulmonary emboli. Hypertension. Bacteremia 07/23 1/2 bottles coagulase-negative staph likely contaminant Enterobacter UTI Plan: Plan of Care Cont meropenem/Zyvox RUE PICC line DC CT A/P pending Fernandez changed 07/26 Follow-up repeat BC Monitor labs and cultures Critically ill D/W JAMI LUCAS MD Jul 28, 2020 11:21
[2020-07-28 13:52] LABS: BASO % 1 % (0-3); EOS # 0.3 x10^3/uL (0.0-0.7); EOS % 4 % (0-3); HEMATOCRIT 32.7 % (39.0-53.0); LYMPH # 0.7 x10^3/uL (1.0-4.8); LYMPH % 10 % (24-48); MEAN CORPUSCULAR HEMOGLOBIN 33 pg (25-35); MEAN CORPUSCULAR HGB CONC 34 g/dL (31-37); MEAN CORPUSCULAR VOLUME 97 fL (79-100); MONO # 0.4 x10^3/uL (0.0-1.1); MONO % 6 % (0-9); NEUT # 5.8 x10^3/uL (1.8-7.7); NEUT % 81 % (31-73); PLATELET COUNT 188 x10^3/uL (140-400); RED BLOOD COUNT 3.38 x10^6/uL (4.30-5.70); RED CELL DISTRIBUTION WIDTH 16.1 % (11.5-14.5); WHITE BLOOD COUNT 7.2 x10^3/uL (4.0-11.0)
[2020-07-28 14:04] LABS: ALBUMIN 1.4 g/dL (3.4-5.0); ALBUMIN/GLOBULIN RATIO 0.3 (1.0-1.7); CREATININE 0.5 mg/dL (0.7-1.3); POTASSIUM 3.7 mmol/L (3.5-5.1); TOTAL BILIRUBIN 0.4 mg/dL (0.2-1.0); TOTAL PROTEIN 6.1 g/dL (6.4-8.2)
[2020-07-28] MEDS: fentaNYL HIGH DOSE PCA 55 ML IV PRN (17:11)
[2020-07-28] MEDS: VECURONIUM BOLUS 10 MG VIAL. IV PRN (23:59)
[2020-07-29] VITALS (21 sets, daily range): BP systolic 97–137; BP diastolic 52–83
[2020-07-29] MEDS: ASCORBIC ACID 500 MG TABLET PO SCH ×5 (01:20→23:46)
[2020-07-29] MEDS: PROPOFOL 100 ML IV PRN ×3 (03:33→23:20)
[2020-07-29 05:55] LABS: ALBUMIN 1.5 g/dL (3.4-5.0); ALBUMIN/GLOBULIN RATIO 0.3 (1.0-1.7); CALCIUM 8.3 mg/dL (8.5-10.1); CREATININE 0.4 mg/dL (0.7-1.3); GFR 227.7; POTASSIUM 3.5 mmol/L (3.5-5.1); TOTAL BILIRUBIN 0.4 mg/dL (0.2-1.0)
--- NOTE | 2020-07-29 05:55 | NUR ---
Dr Cheema on unit, updated on patient's overall condition, improved sedation management with Vecuronium PRN, and patient's increasing amount of secretions. Orders received to obtain sputum C&S, Lasix 20MG IVP and KCL 20Meq per OG--see orders.
[2020-07-29] MEDS: INSULIN LISPRO 300 UNITS/3 ML VIAL. SQ SCH ×2 (06:00→18:00)
--- NOTE | 2020-07-29 06:04 | PDOC ---
PULMONARY PROGRESS NOTES DATE: 07/29/20 TIME: 06:02 Subjective PT. remains on vent support , 45% FiO2 and a PEEP of 6 large ett secretion sedated on propofol fentanyl versed vec prn low grade fever Vitals Vital Signs Date Time Temp Pulse Resp B/P (MAP) Pulse Ox O2 Delivery O2 Flow Rate FiO2 07/29/20 04:54 100 Ventilator 07/28/20 18:00 77 21 96/61 (73) 07/28/20 17:11 15.0 07/28/20 16:00 99.7 99.7 Comments Patient seen during pandemic visual exam performed Intubated/sedated nc at has accessory muscle use tachypneac RRR No obvious rash or edema Lungs: Other (orally intubated, clear ) Labs Laboratory Tests Test 07/27/20 08:05 07/27/20 17:24 07/28/20 05:22 07/28/20 12:45 O2 Saturation 92 % (92-99) Arterial Blood pH 7.41 (7.35-7.45) Arterial Blood pH (Temp corrected) 7.39 Arterial Blood pCO2 at Patient Temp 47 mmHg (35-46) Arterial Blood pCO2 (Temp correct) 51 mmHg Arterial Blood pO2 at Patient Temp 69 mmHg (75-108) Arterial Blood pO2 (Temp corrected) 76 mmHg Arterial Blood HCO3 30 mmol/L (21-28) Arterial Blood Base Excess 4 mmol/L (-3-3) FiO2 45 vent Glucose (Fingerstick) 169 mg/dL (70-99) 92 mg/dL (70-99) White Blood Count 7.2 x10^3/uL (4.0-11.0) Red Blood Count 3.38 x10^6/uL (4.30-5.70) Hemoglobin 11.0 g/dL (13.0-17.5) Hematocrit 32.7 % (39.0-53.0) Mean Corpuscular Volume 97 fL (79-100) Mean Corpuscular Hemoglobin 33 pg (25-35) Mean Corpuscular Hemoglobin Concent 34 g/dL (31-37) Red Cell Distribution Width 16.1 % (11.5-14.5) Platelet Count 188 x10^3/uL (140-400) Neutrophils (%) (Auto) 81 % (31-73) Lymphocytes (%) (Auto) 10 % (24-48) Monocytes (%) (Auto) 6 % (0-9) Eosinophils (%) (Auto) 4 % (0-3) Basophils (%) (Auto) 1 % (0-3) Neutrophils # (Auto) 5.8 x10^3/uL (1.8-7.7) Lymphocytes # (Auto) 0.7 x10^3/uL (1.0-4.8) Monocytes # (Auto) 0.4 x10^3/uL (0.0-1.1) Eosinophils # (Auto) 0.3 x10^3/uL (0.0-0.7) Basophils # (Auto) 0.0 x10^3/uL (0.0-0.2) Sodium Level 134 mmol/L (136-145) Potassium Level 3.7 mmol/L (3.5-5.1) Chloride Level 96 mmol/L (98-107) Carbon Dioxide Level 34 mmol/L (21-32) Anion Gap 4 (6-14) Blood Urea Nitrogen 9 mg/dL (8-26) Creatinine 0.5 mg/dL (0.7-1.3) Estimated GFR (Cockcroft-Gault) 176.0 BUN/Creatinine Ratio 18 (6-20) Glucose Level 167 mg/dL (70-99) Calcium Level 8.0 mg/dL (8.5-10.1) Total Bilirubin 0.4 mg/dL (0.2-1.0) Aspartate Amino Transf (AST/SGOT) 27 U/L (15-37) Alanine Aminotransferase (ALT/SGPT) 45 U/L (16-63) Alkaline Phosphatase 217 U/L (46-116) Total Protein 6.1 g/dL (6.4-8.2) Albumin 1.4 g/dL (3.4-5.0) Albumin/Globulin Ratio 0.3 (1.0-1.7) Test 07/28/20 18:37 07/29/20 05:00 Glucose (Fingerstick) 100 mg/dL (70-99) Sodium Level 135 mmol/L (136-145) Potassium Level 3.5 mmol/L (3.5-5.1) Chloride Level 95 mmol/L (98-107) Carbon Dioxide Level 32 mmol/L (21-32) Anion Gap 8 (6-14) Blood Urea Nitrogen 9 mg/dL (8-26) Creatinine 0.4 mg/dL (0.7-1.3) Estimated GFR (Cockcroft-Gault) 227.7 BUN/Creatinine Ratio 23 (6-20) Glucose Level 158 mg/dL (70-99) Calcium Level 8.3 mg/dL (8.5-10.1) Total Bilirubin 0.4 mg/dL (0.2-1.0) Aspartate Amino Transf (AST/SGOT) 39 U/L (15-37) Alanine Aminotransferase (ALT/SGPT) 61 U/L (16-63) Alkaline Phosphatase 240 U/L (46-116) Total Protein 6.0 g/dL (6.4-8.2) Albumin 1.5 g/dL (3.4-5.0) Albumin/Globulin Ratio 0.3 (1.0-1.7) Laboratory Tests Test 07/28/20 12:45 07/28/20 18:37 07/29/20 05:00 White Blood Count 7.2 x10^3/uL (4.0-11.0) Red Blood Count 3.38 x10^6/uL (4.30-5.70) Hemoglobin 11.0 g/dL (13.0-17.5) Hematocrit 32.7 % (39.0-53.0) Mean Corpuscular Volume 97 fL (79-100) Mean Corpuscular Hemoglobin 33 pg (25-35) Mean Corpuscular Hemoglobin Concent 34 g/dL (31-37) Red Cell Distribution Width 16.1 % (11.5-14.5) Platelet Count 188 x10^3/uL (140-400) Neutrophils (%) (Auto) 81 % (31-73) Lymphocytes (%) (Auto) 10 % (24-48) Monocytes (%) (Auto) 6 % (0-9) Eosinophils (%) (Auto) 4 % (0-3) Basophils (%) (Auto) 1 % (0-3) Neutrophils # (Auto) 5.8 x10^3/uL (1.8-7.7) Lymphocytes # (Auto) 0.7 x10^3/uL (1.0-4.8) Monocytes # (Auto) 0.4 x10^3/uL (0.0-1.1) Eosinophils # (Auto) 0.3 x10^3/uL (0.0-0.7) Basophils # (Auto) 0.0 x10^3/uL (0.0-0.2) Sodium Level 134 mmol/L (136-145) 135 mmol/L (136-145) Potassium Level 3.7 mmol/L (3.5-5.1) 3.5 mmol/L (3.5-5.1) Chloride Level 96 mmol/L (98-107) 95 mmol/L (98-107) Carbon Dioxide Level 34 mmol/L (21-32) 32 mmol/L (21-32) Anion Gap 4 (6-14) 8 (6-14) Blood Urea Nitrogen 9 mg/dL (8-26) 9 mg/dL (8-26) Creatinine 0.5 mg/dL (0.7-1.3) 0.4 mg/dL (0.7-1.3) Estimated GFR (Cockcroft-Gault) 176.0 227.7 BUN/Creatinine Ratio 18 (6-20) 23 (6-20) Glucose Level 167 mg/dL (70-99) 158 mg/dL (70-99) Calcium Level 8.0 mg/dL (8.5-10.1) 8.3 mg/dL (8.5-10.1) Total Bilirubin 0.4 mg/dL (0.2-1.0) 0.4 mg/dL (0.2-1.0) Aspartate Amino Transf (AST/SGOT) 27 U/L (15-37) 39 U/L (15-37) Alanine Aminotransferase (ALT/SGPT) 45 U/L (16-63) 61 U/L (16-63) Alkaline Phosphatase 217 U/L (46-116) 240 U/L (46-116) Total Protein 6.1 g/dL (6.4-8.2) 6.0 g/dL (6.4-8.2) Albumin 1.4 g/dL (3.4-5.0) 1.5 g/dL (3.4-5.0) Albumin/Globulin Ratio 0.3 (1.0-1.7) 0.3 (1.0-1.7) Glucose (Fingerstick) 100 mg/dL (70-99) Comments CXR reviewed 1. Stable life support devices. 2. Bilateral perihilar and basilar opacities, progressed in the left base Impression . IMPRESSION: 1. Acute hypoxemic respiratory failure. 2. Acute pulmonary embolism with cor pulmonale. 3. COVID-[address] chest revealing ground glass opacities. 5. Hypertension. 6. History of bronchitis. 7. Elevated troponin. 8. Acute kidney injury. 9. Leukocytosis. 10. Covid-19 positive Plan . Continue current ventilatory support, FiO2 45% and a PEEP of 6, 02 titration as tolerated vec prn I>>O for the past few days lasix iv kcl per ng surgery following for trach s/p PRBC and monitor HGB, transfuse if less than 7.0 off eliquis, consider IV heparin when ready to restart A/C reviewed chest x-ray and ABG, Follow cardiology recommendations Antibiotics per ID-- Vasopressors if need for hypotension, keep MAP above 65 Has completed full course of remdesivir Continue tube feeding for nutritional support DVT/GI prophylaxis,Protonix Discussed with RN and RT Pt. is FULL CODE critically ill cc time 30 min no overlap TRACIE CAVAZOS MD Jul 29, 2020 06:04
[2020-07-29] MEDS: MEROPENEM 500 MG in IV NORMAL SALINE 50ML 50 ML IV SCH ×5 (06:27→23:46)
[2020-07-29] MEDS ORDERED: POTASSIUM BICARB 10 MEQ EFFERVESCENT TABLET. NG ONE (06:30)
[2020-07-29] MEDS ORDERED: FUROSEMIDE 20 MG/2 ML VIAL. IVP ONE (06:30)
[2020-07-29 06:38] LABS: BASO % 1 % (0-3); EOS # 0.3 x10^3/uL (0.0-0.7); EOS % 5 % (0-3); HEMATOCRIT 31.9 % (39.0-53.0); HEMOGLOBIN 10.7 g/dL (13.0-17.5); LYMPH # 0.9 x10^3/uL (1.0-4.8); LYMPH % 14 % (24-48); MEAN CORPUSCULAR HEMOGLOBIN 33 pg (25-35); MEAN CORPUSCULAR HGB CONC 34 g/dL (31-37); MEAN CORPUSCULAR VOLUME 97 fL (79-100); MONO # 0.3 x10^3/uL (0.0-1.1); MONO % 5 % (0-9); NEUT % 76 % (31-73); PLATELET COUNT 211 x10^3/uL (140-400); RED BLOOD COUNT 3.28 x10^6/uL (4.30-5.70); WHITE BLOOD COUNT 6.6 x10^3/uL (4.0-11.0)
[2020-07-29] MEDS: fentaNYL HIGH DOSE PCA 55 ML IV PRN (07:19)
[2020-07-29] MEDS: MIDAZOLAM 100mg/100ml NS BAG 100 ML IV PRN ×2 (07:45→08:29)
--- NOTE | 2020-07-29 08:31 | RAD ---
CHEST AP ONLY Clinical History: Reason: pneumonia / Spl. Instructions: / History: Technique: AP view of the chest was obtained at 07/29/2020 5:00 AM. Comparison: July 26, 2020. Findings: There is patchy opacities throughout the lungs and obscuration of the heart and left hemidiaphragm and density along the pleural margin on the left. The pulmonary vessels and cardiac silhouette are difficult to visualize. The intrarenal tube and NG tube are unchanged. The right PICC has been removed. Impression: Moderate loculated left pleural effusion and marked bilateral pulmonary infiltrates. This appears worse and could be secondary to CHF or pneumonia or ARDS. Electronically signed by: Addison Wan III, MD (07/29/2020 8:28 AM) [facility]
[2020-07-29] MEDS: ZINC SULFATE 220 MG CAPSULE. PO SCH (08:32)
[2020-07-29] MEDS: CHOLECALCIFEROL (VITAMIN D3) 5,000 UNIT CAPSULE PO SCH (08:32)
[2020-07-29] MEDS: PANTOPRAZOLE IV PUSH 40 MG VIAL. IVP SCH (08:33)
[2020-07-29 08:36] LABS: BASE EXCESS ABG 8 mmol/L (-3-3); HCO3 ABG 33 mmol/L (21-28); PCO2 ABG 47 mmHg (35-46); PO2 ABG 77 mmHg (75-108); SAT O2 ABG 96 % (92-99)
[2020-07-29 08:42] LABS: FIO2 ABG 45% VENT
[2020-07-29] MEDS: VECURONIUM BOLUS 10 MG VIAL. IV PRN ×2 (09:42→15:37)
--- NOTE | 2020-07-29 10:49 | PDOC ---
PROGRESS NOTES Date of Service: DATE: 07/29/20 TIME: 10:48 Chief Complaint Chief Complaint IMPRESSION Acute hypoxic respiratory failure requiring VENT SUPPORT Acute hypoxic respiratory failure/ARDS /pneumonia Bilateral perihilar and basilar opacities, progressed in the left base. 12 COVID-19 Subsegmental bilateral PE Leukocytosis NSTEMI AKA Lactic acidosis Hyponatremia, RESOLVED hgb 6.5 07-27, transfused 1 unit prbc's hyp[okalemia, on replacement Plan: Appreciate pulmonology recommendations Continue current ventilatory support, currently on 70% and PEEP of 6, avoid increasing PEEP 2/2 risk of barotrauma Follow chest x-ray and ABG, vent management as per pulmonology Heparin has been transitioned to Xarelto Solu-Medrol 40 mg every 12 hours Appreciate ID recommendationscontinue Remdesivir and empiric antibiotics IV fluids Discussed with RN and SW. Antibiotics per ID-- off ABX, infectious disease following increasing leukocyt osis has completed full course of remdesivir continue tube feeding for nutritional support 35 MIN CC TIME History of Present Illness History of Present Illness t max 102 f fio2 50% 07/21/2020 Patient no acute events reported overnight. Patient continues to require a lot of support from vent. Discussed with RN 09/19/2019 Patient continues to be pretty much the same , fio2 is at 70%, heparin 07/19/2020 Patient hypotensive today, we will follow recommendations from critical pharmacy care coordinator. Vent management as per hr shared services consultant, no other complaints. 07/18/2020 Patient with no acute events reported overnight, fio2 is now at 75% PEEP of 6, Vent management as per pulmonary hr shared services consultant slight increase in temperature noted over the lat 24 hours. Will continue to follow 07/17/2020 Patient with no acute events reported overnight, contineus to require an fio2 of 80%, continue with supportive measures. 07/16/2020 Patient with no acute events reported overnight, patient continues to require quite a bit of FiO2 at 80%. Vent management as per hr shared services consultant, will place a call to family members after rounding. Discussed with RN 07/15/2020 Patient seen and examined bedside in the ICU. FiO2 80% PEEP of 6.pH 7.56, PCO2 32, PO2 56, HCO3 28. Will adjust respiratory rate accordingly to correct pH.> 50% time spent in patient chart, labs, and imaging review and in discussion with RN and SW 07/14/2020 Patient seen and examined bedside. FiO2 65% and PEEP of 6 on vent. ABG: pH 7.26, PCO2 77, PO2 114, HCO3 34. We will adjust respiratory rate or tidal volume to titrate pH.> 50% time spent in patient chart, labs, and imaging review and in discussion with RN and JAVIER 07/13/2020 No acute events overnight. Patient examined bedside sedated and intubated. FiO2 70% PEEP of 6. Improved ABGs.> 50% time spent in patient chart, labs, and imaging review and in discussion with RN and JAVIER 07/12/2020 Patient seen and examined in the ICU. Sedated and intubated. FiO2 65, PEEP of 8 with improved oxygenation. pH 7.4, PCO2 48, PO2 94, HCO3 30. +500 cc fluid balance.> 50% time spent in patient chart, labs, and imaging review and in discussion with RN and JAVIER 07/11/2020 Patient seen and examined bedside in the ICU. Patient continues to be intubated and sedated. FiO2 75%, PEEP of 10. pH 7.40, PCO2 44, PO2 is 135, HCO3 26. Can likely decrease FiO2 due to improved oxygenation. +173 cc in the past 24 hours 07/10/2020 Patient seen and examined bedside in ICU. Patient is intubated and sedated. FiO2 90%, PEEP of 10, respiratory rate of 30. ABG: pH is 7.41, PCO2 42, PO2 113, HCO3 26. 07/09/2020 Patient seen and examined in the ICU. Intubated and sedated. Vent settings FiO2 90%, PEEP of 10, respiratory rate of 30. 07/05: Patient seen in ICU, still intubated and sedated. COVID-19 pending. Patient remains on heparin infusion. Discussed with RN, will try to have centr al line placed per anesthesia. 07/06: Patient seen in ICU. Still FiO2 100% on vent and sedated. COVID-19 positive. Continue heparin infusion, Zosyn, steroids. 07/07: Covid positive patient seen in ICU. On vent with FiO2 100%, PEEP 10. Continue remdesivir, steroids, Zosyn. Continue to monitor 07/08: Patient seen in Covid ICU. Still on vent with FiO2 100%, PEEP 10. Afebrile. No acute events overnight. Continue steroids, antibiotics, and remdesivir. Patient is 49-year-old male with past medical history of hypertension, who presents to the ED with complaints of worsening shortness of breath over the past 5 days. Associated sore throat, fatigue, and generalized weakness. Patient was reportedly tested for COVID-19 last Thursday, but he had negative test results. His symptoms acutely worsened yesterday. Upon arrival to the ER his oxygen saturation was 60% on room air. He was placed on BiPAP and admitted to the ICU. Patient was subsequently intubated due to worsening respiratory failure. Vitals Vitals Vital Signs Date Time Temp Pulse Resp B/P (MAP) Pulse Ox O2 Delivery O2 Flow Rate FiO2 07/29/20 08:22 100 Ventilator 07/29/20 07:49 15.0 07/29/20 07:00 88 30 120/75 (90) 07/29/20 06:00 100.0 100.0 Physical Exam Physical Exam General intubated/sedated HEENT normocephalic atraumatic, OGT/ETT present LUNGS: Coarse breath sounds anteriorly HEART: S1-S2 no murmurs ABDOMEN: Nondistended, soft bowel sounds present Fernandez in place SKIN: No generalized rash Right upper extremity PICC line removed PIV Clean Neuro intubated/sedated General: No acute distress Heart: Regular rate (SR/ST) Lungs: Other (orally intubated, clear ) Abdomen: Other (Nondistended) Extremities: No clubbing, No cyanosis Skin: No rashes, No breakdown Labs LABS Laboratory Tests Test 07/28/20 12:45 07/28/20 18:37 07/29/20 05:00 07/29/20 08:30 White Blood Count 7.2 x10^3/uL (4.0-11.0) 6.6 x10^3/uL (4.0-11.0) Red Blood Count 3.38 x10^6/uL (4.30-5.70) 3.28 x10^6/uL (4.30-5.70) Hemoglobin 11.0 g/dL (13.0-17.5) 10.7 g/dL (13.0-17.5) Hematocrit 32.7 % (39.0-53.0) 31.9 % (39.0-53.0) Mean Corpuscular Volume 97 fL (79-100) 97 fL (79-100) Mean Corpuscular Hemoglobin 33 pg (25-35) 33 pg (25-35) Mean Corpuscular Hemoglobin Concent 34 g/dL (31-37) 34 g/dL (31-37) Red Cell Distribution Width 16.1 % (11.5-14.5) 16.0 % (11.5-14.5) Platelet Count 188 x10^3/uL (140-400) 211 x10^3/uL (140-400) Neutrophils (%) (Auto) 81 % (31-73) 76 % (31-73) Lymphocytes (%) (Auto) 10 % (24-48) 14 % (24-48) Monocytes (%) (Auto) 6 % (0-9) 5 % (0-9) Eosinophils (%) (Auto) 4 % (0-3) 5 % (0-3) Basophils (%) (Auto) 1 % (0-3) 1 % (0-3) Neutrophils # (Auto) 5.8 x10^3/uL (1.8-7.7) 5.0 x10^3/uL (1.8-7.7) Lymphocytes # (Auto) 0.7 x10^3/uL (1.0-4.8) 0.9 x10^3/uL (1.0-4.8) Monocytes # (Auto) 0.4 x10^3/uL (0.0-1.1) 0.3 x10^3/uL (0.0-1.1) Eosinophils # (Auto) 0.3 x10^3/uL (0.0-0.7) 0.3 x10^3/uL (0.0-0.7) Basophils # (Auto) 0.0 x10^3/uL (0.0-0.2) 0.0 x10^3/uL (0.0-0.2) Sodium Level 134 mmol/L (136-145) 135 mmol/L (136-145) Potassium Level 3.7 mmol/L (3.5-5.1) 3.5 mmol/L (3.5-5.1) Chloride Level 96 mmol/L (98-107) 95 mmol/L (98-107) Carbon Dioxide Level 34 mmol/L (21-32) 32 mmol/L (21-32) Anion Gap 4 (6-14) 8 (6-14) Blood Urea Nitrogen 9 mg/dL (8-26) 9 mg/dL (8-26) Creatinine 0.5 mg/dL (0.7-1.3) 0.4 mg/dL (0.7-1.3) Estimated GFR (Cockcroft-Gault) 176.0 227.7 BUN/Creatinine Ratio 18 (6-20) 23 (6-20) Glucose Level 167 mg/dL (70-99) 158 mg/dL (70-99) Calcium Level 8.0 mg/dL (8.5-10.1) 8.3 mg/dL (8.5-10.1) Total Bilirubin 0.4 mg/dL (0.2-1.0) 0.4 mg/dL (0.2-1.0) Aspartate Amino Transf (AST/SGOT) 27 U/L (15-37) 39 U/L (15-37) Alanine Aminotransferase (ALT/SGPT) 45 U/L (16-63) 61 U/L (16-63) Alkaline Phosphatase 217 U/L (46-116) 240 U/L (46-116) Total Protein 6.1 g/dL (6.4-8.2) 6.0 g/dL (6.4-8.2) Albumin 1.4 g/dL (3.4-5.0) 1.5 g/dL (3.4-5.0) Albumin/Globulin Ratio 0.3 (1.0-1.7) 0.3 (1.0-1.7) Glucose (Fingerstick) 100 mg/dL (70-99) O2 Saturation 96 % (92-99) Arterial Blood pH 7.47 (7.35-7.45) Arterial Blood pCO2 at Patient Temp 47 mmHg (35-46) Arterial Blood pO2 at Patient Temp 77 mmHg (75-108) Arterial Blood HCO3 33 mmol/L (21-28) Arterial Blood Base Excess 8 mmol/L (-3-3) FiO2 45% vent Assessment and Plan Assessmemt and Plan Problems Medical Problems: (1) Acute respiratory failure with hypoxia Status: Acute (2) PRIYA (acute kidney injury) Status: Acute (3) Elevated troponin I level Status: Acute (4) Pulmonary emboli Status: Acute (5) Suspected COVID-19 virus infection Status: Acute Comment Review of Relevant I have reviewed the following items trino (where applicable) has been applied. Labs Laboratory Tests Test 07/27/20 17:24 07/28/20 05:22 07/28/20 12:45 07/28/20 18:37 Glucose (Fingerstick) 169 mg/dL (70-99) 92 mg/dL (70-99) 100 mg/dL (70-99) White Blood Count 7.2 x10^3/uL (4.0-11.0) Red Blood Count 3.38 x10^6/uL (4.30-5.70) Hemoglobin 11.0 g/dL (13.0-17.5) Hematocrit 32.7 % (39.0-53.0) Mean Corpuscular Volume 97 fL (79-100) Mean Corpuscular Hemoglobin 33 pg (25-35) Mean Corpuscular Hemoglobin Concent 34 g/dL (31-37) Red Cell Distribution Width 16.1 % (11.5-14.5) Platelet Count 188 x10^3/uL (140-400) Neutrophils (%) (Auto) 81 % (31-73) Lymphocytes (%) (Auto) 10 % (24-48) Monocytes (%) (Auto) 6 % (0-9) Eosinophils (%) (Auto) 4 % (0-3) Basophils (%) (Auto) 1 % (0-3) Neutrophils # (Auto) 5.8 x10^3/uL (1.8-7.7) Lymphocytes # (Auto) 0.7 x10^3/uL (1.0-4.8) Monocytes # (Auto) 0.4 x10^3/uL (0.0-1.1) Eosinophils # (Auto) 0.3 x10^3/uL (0.0-0.7) Basophils # (Auto) 0.0 x10^3/uL (0.0-0.2) Sodium Level 134 mmol/L (136-145) Potassium Level 3.7 mmol/L (3.5-5.1) Chloride Level 96 mmol/L (98-107) Carbon Dioxide Level 34 mmol/L (21-32) Anion Gap 4 (6-14) Blood Urea Nitrogen 9 mg/dL (8-26) Creatinine 0.5 mg/dL (0.7-1.3) Estimated GFR (Cockcroft-Gault) 176.0 BUN/Creatinine Ratio 18 (6-20) Glucose Level 167 mg/dL (70-99) Calcium Level 8.0 mg/dL (8.5-10.1) Total Bilirubin 0.4 mg/dL (0.2-1.0) Aspartate Amino Transf (AST/SGOT) 27 U/L (15-37) Alanine Aminotransferase (ALT/SGPT) 45 U/L (16-63) Alkaline Phosphatase 217 U/L (46-116) Total Protein 6.1 g/dL (6.4-8.2) Albumin 1.4 g/dL (3.4-5.0) Albumin/Globulin Ratio 0.3 (1.0-1.7) Test 07/29/20 05:00 07/29/20 08:30 White Blood Count 6.6 x10^3/uL (4.0-11.0) Red Blood Count 3.28 x10^6/uL (4.30-5.70) Hemoglobin 10.7 g/dL (13.0-17.5) Hematocrit 31.9 % (39.0-53.0) Mean Corpuscular Volume 97 fL (79-100) Mean Corpuscular Hemoglobin 33 pg (25-35) Mean Corpuscular Hemoglobin Concent 34 g/dL (31-37) Red Cell Distribution Width 16.0 % (11.5-14.5) Platelet Count 211 x10^3/uL (140-400) Neutrophils (%) (Auto) 76 % (31-73) Lymphocytes (%) (Auto) 14 % (24-48) Monocytes (%) (Auto) 5 % (0-9) Eosinophils (%) (Auto) 5 % (0-3) Basophils (%) (Auto) 1 % (0-3) Neutrophils # (Auto) 5.0 x10^3/uL (1.8-7.7) Lymphocytes # (Auto) 0.9 x10^3/uL (1.0-4.8) Monocytes # (Auto) 0.3 x10^3/uL (0.0-1.1) Eosinophils # (Auto) 0.3 x10^3/uL (0.0-0.7) Basophils # (Auto) 0.0 x10^3/uL (0.0-0.2) Sodium Level 135 mmol/L (136-145) Potassium Level 3.5 mmol/L (3.5-5.1) Chloride Level 95 mmol/L (98-107) Carbon Dioxide Level 32 mmol/L (21-32) Anion Gap 8 (6-14) Blood Urea Nitrogen 9 mg/dL (8-26) Creatinine 0.4 mg/dL (0.7-1.3) Estimated GFR (Cockcroft-Gault) 227.7 BUN/Creatinine Ratio 23 (6-20) Glucose Level 158 mg/dL (70-99) Calcium Level 8.3 mg/dL (8.5-10.1) Total Bilirubin 0.4 mg/dL (0.2-1.0) Aspartate Amino Transf (AST/SGOT) 39 U/L (15-37) Alanine Aminotransferase (ALT/SGPT) 61 U/L (16-63) Alkaline Phosphatase 240 U/L (46-116) Total Protein 6.0 g/dL (6.4-8.2) Albumin 1.5 g/dL (3.4-5.0) Albumin/Globulin Ratio 0.3 (1.0-1.7) O2 Saturation 96 % (92-99) Arterial Blood pH 7.47 (7.35-7.45) Arterial Blood pCO2 at Patient Temp 47 mmHg (35-46) Arterial Blood pO2 at Patient Temp 77 mmHg (75-108) Arterial Blood HCO3 33 mmol/L (21-28) Arterial Blood Base Excess 8 mmol/L (-3-3) FiO2 45% vent Laboratory Tests Test 07/28/20 12:45 07/28/20 18:37 07/29/20 05:00 07/29/20 08:30 White Blood Count 7.2 x10^3/uL (4.0-11.0) 6.6 x10^3/uL (4.0-11.0) Red Blood Count 3.38 x10^6/uL (4.30-5.70) 3.28 x10^6/uL (4.30-5.70) Hemoglobin 11.0 g/dL (13.0-17.5) 10.7 g/dL (13.0-17.5) Hematocrit 32.7 % (39.0-53.0) 31.9 % (39.0-53.0) Mean Corpuscular Volume 97 fL (79-100) 97 fL (79-100) Mean Corpuscular Hemoglobin 33 pg (25-35) 33 pg (25-35) Mean Corpuscular Hemoglobin Concent 34 g/dL (31-37) 34 g/dL (31-37) Red Cell Distribution Width 16.1 % (11.5-14.5) 16.0 % (11.5-14.5) Platelet Count 188 x10^3/uL (140-400) 211 x10^3/uL (140-400) Neutrophils (%) (Auto) 81 % (31-73) 76 % (31-73) Lymphocytes (%) (Auto) 10 % (24-48) 14 % (24-48) Monocytes (%) (Auto) 6 % (0-9) 5 % (0-9) Eosinophils (%) (Auto) 4 % (0-3) 5 % (0-3) Basophils (%) (Auto) 1 % (0-3) 1 % (0-3) Neutrophils # (Auto) 5.8 x10^3/uL (1.8-7.7) 5.0 x10^3/uL (1.8-7.7) Lymphocytes # (Auto) 0.7 x10^3/uL (1.0-4.8) 0.9 x10^3/uL (1.0-4.8) Monocytes # (Auto) 0.4 x10^3/uL (0.0-1.1) 0.3 x10^3/uL (0.0-1.1) Eosinophils # (Auto) 0.3 x10^3/uL (0.0-0.7) 0.3 x10^3/uL (0.0-0.7) Basophils # (Auto) 0.0 x10^3/uL (0.0-0.2) 0.0 x10^3/uL (0.0-0.2) Sodium Level 134 mmol/L (136-145) 135 mmol/L (136-145) Potassium Level 3.7 mmol/L (3.5-5.1) 3.5 mmol/L (3.5-5.1) Chloride Level 96 mmol/L (98-107) 95 mmol/L (98-107) Carbon Dioxide Level 34 mmol/L (21-32) 32 mmol/L (21-32) Anion Gap 4 (6-14) 8 (6-14) Blood Urea Nitrogen 9 mg/dL (8-26) 9 mg/dL (8-26) Creatinine 0.5 mg/dL (0.7-1.3) 0.4 mg/dL (0.7-1.3) Estimated GFR (Cockcroft-Gault) 176.0 227.7 BUN/Creatinine Ratio 18 (6-20) 23 (6-20) Glucose Level 167 mg/dL (70-99) 158 mg/dL (70-99) Calcium Level 8.0 mg/dL (8.5-10.1) 8.3 mg/dL (8.5-10.1) Total Bilirubin 0.4 mg/dL (0.2-1.0) 0.4 mg/dL (0.2-1.0) Aspartate Amino Transf (AST/SGOT) 27 U/L (15-37) 39 U/L (15-37) Alanine Aminotransferase (ALT/SGPT) 45 U/L (16-63) 61 U/L (16-63) Alkaline Phosphatase 217 U/L (46-116) 240 U/L (46-116) Total Protein 6.1 g/dL (6.4-8.2) 6.0 g/dL (6.4-8.2) Albumin 1.4 g/dL (3.4-5.0) 1.5 g/dL (3.4-5.0) Albumin/Globulin Ratio 0.3 (1.0-1.7) 0.3 (1.0-1.7) Glucose (Fingerstick) 100 mg/dL (70-99) O2 Saturation 96 % (92-99) Arterial Blood pH 7.47 (7.35-7.45) Arterial Blood pCO2 at Patient Temp 47 mmHg (35-46) Arterial Blood pO2 at Patient Temp 77 mmHg (75-108) Arterial Blood HCO3 33 mmol/L (21-28) Arterial Blood Base Excess 8 mmol/L (-3-3) FiO2 45% vent Microbiology 07/27/20 Blood Culture - Final, Complete 07/23/20 Urine Culture - Final, Complete 07/23/20 Antimicrobic Susceptibility - Final, Complete Medications Current Medications Ceftriaxone Sodium (Rocephin) 1 gm 1X ONCE IVP Last administered on 07/03/20at 20:11; Start 07/03/20 at 19:15; Stop 07/03/20 at 19:19; Status DC Azithromycin (Zithromax) 500 mg 1X ONCE PO Last administered on 07/03/20at 20:11; Start 07/03/20 at 19:15; Stop 07/03/20 at 19:19; Status DC Sodium Chloride 1,000 ml @ 1,000 mls/hr 1X ONCE IV Last administered on 07/03/20at 20:11; Start 07/03/20 at 19:15; Stop 07/03/20 at 20:14; Status DC Sodium Chloride 1,000 ml @ 1,000 mls/hr 1X ONCE IV Last administered on 07/03/20at 19:15; Start 07/03/20 at 19:15; Stop 07/03/20 at 20:14; Status DC Iohexol (Omnipaque 350 Mg/ml) 90 ml 1X ONCE IV Last administered on 07/03/20at 21:00; Start 07/03/20 at 20:45; Stop 07/03/20 at 20:46; Status DC Info (CONTRAST GIVEN -- Rx MONITORING) 1 each PRN DAILY PRN MC SEE COMMENTS; Start 07/03/20 at 20:45; Stop 07/05/20 at 20:44; Status DC Enoxaparin Sodium (Lovenox 150mg Syringe) 150 mg 1X ONCE SQ Last administered on 07/03/20at 22:45; Start 07/03/20 at 23:00; Stop 07/03/20 at 23:01; Status DC Ondansetron HCl (Zofran) 4 mg PRN Q8HRS PRN IV NAUSEA/VOMITING 1ST CHOICE; Start 07/03/20 at 22:30; Stop 07/04/20 at 22:29; Status DC Morphine Sulfate (Morphine Sulfate) 2 mg PRN Q2HR PRN IV SEVERE PAIN 7-10; Sta rt 07/03/20 at 22:30; Stop 07/04/20 at 22:29; Status DC Sodium Chloride 1,000 ml @ 100 mls/hr Q10H IV Last administered on 07/05/20at 00:35; Start 07/03/20 at 23:00; Stop 07/04/20 at 22:59; Status DC Acetaminophen (Tylenol) 650 mg PRN Q4HRS PRN PO FEVER > 100.3'F; Start 07/03/20 at 22:30; Stop 07/04/20 at 22:29; Status DC Throat Lozenges (Cepacol Sore Throat Lozenge) 1 lety PRN Q2HRS PRN PO SORE THROAT; Start 07/04/20 at 01:15 Furosemide (Lasix) 20 mg 1X ONCE IVP Last administered on 07/04/20at 10:10; Start 07/04/20 at 10:00; Stop 07/04/20 at 10:01; Status DC Succinylcholine Chloride (Anectine) 200 mg STK-MED ONCE .ROUTE ; Start 07/04/20 at 09:09; Stop 07/04/20 at 09:09; Status DC Etomidate (Amidate) 20 mg STK-MED ONCE IV ; Start 07/04/20 at 09:09; Stop 07/04/20 at 09:09; Status DC Fentanyl Citrate 30 ml @ 0 mls/hr CONT PRN IV SEE PROTOCOL Last administered on 07/04/20at 09:36; Start 07/04/20 at 09:15; Stop 07/04/20 at 14:36; Status DC Propofol 100 ml @ 0 mls/hr CONT PRN IV SEE PROTOCOL Last administered on 07/28/20at 21:30; Start 07/04/20 at 09:15 Midazolam HCl 100 ml @ 0 mls/hr CONT PRN IV SEE PROTOCOL Last administered on 07/29/20at 08:29; Start 07/04/20 at 09:15 Midazolam HCl (Versed) 5 mg 1X STAT IV Last administered on 07/04/20at 09:41; Start 07/04/20 at 09:21; Stop 07/04/20 at 09:22; Status DC Midazolam HCl (Versed) 5 mg STK-MED ONCE .ROUTE ; Start 07/04/20 at 09:21; Stop 07/04/20 at 09:21; Status DC Etomidate (Amidate) 10 mg 1X ONCE IV Last administered on 07/04/20at 09:37; Start 07/04/20 at 09:30; Stop 07/04/20 at 09:31; Status DC Succinylcholine Chloride (Anectine) 200 mg 1X ONCE IV Last administered on 07/04/20at 09:38; Start 07/04/20 at 09:30; Stop 07/04/20 at 09:31; Status DC Vecuronium Madison (Norcuron Bolus) 6 mg 1X ONCE IV Last administered on 07/04/20at 09:38; Start 07/04/20 at 09:45; Stop 07/04/20 at 09:46; Status DC Vecuronium Madison (Norcuron Bolus) 10 mg STK-MED ONCE IV ; Start 07/04/20 at 09:33; Stop 07/04/20 at 09:33; Status DC Pantoprazole Sodium (PROTONIX VIAL for IV PUSH) 40 mg DAILYAC IVP Last administered on 07/29/20at 08:33; Start 07/04/20 at 12:30 Methylprednisolone Sodium Succinate (SOLU-Medrol 40MG VIAL) 40 mg Q8HRS IV Last administered on 07/11/20at 05:41; Start 07/04/20 at 14:00; Stop 07/11/20 at 11:36; Status DC Piperacillin Sod/ Tazobactam Sod (Zosyn Per Pharmacy) 1 each PRN DAILY PRN MC SEE COMMENTS; Start 07/04/20 at 12:00; Stop 07/18/20 at 07:46; Status DC Heparin Sodium/ Dextrose 250 ml @ 0 mls/hr CONT PRN IV PER PROTOCOL Last administered on 07/15/20at 02:09; Start 07/04/20 at 12:00; Stop 07/16/20 at 12:09; Status DC Heparin Sodium (Porcine) (Heparin Sodium) 2,500 unit PRN Q6HRS PRN IV FOR UFH LEVEL LESS THAN 0.2 Last administered on 07/15/20at 09:19; Start 07/04/20 at 12:00; Stop 07/16/20 at 12:09; Status DC Heparin Sodium (Porcine) (Heparin Sodium) 1,250 unit PRN Q6HRS PRN IV FOR UFH LEVEL 0.2 - 0.29 Last administered on 07/05/20at 18:27; Start 07/04/20 at 12:00; Stop 07/16/20 at 12:09; Status DC Piperacillin Sod/ Tazobactam Sod 3.375 gm/Sodium Chloride 50 ml @ 100 mls/hr Q6HRS IV Last administered on 07/17/20at 05:10; Start 07/04/20 at 12:00; Stop 07/17/20 at 11:11; Status DC Zinc Sulfate (Orazinc) 220 mg DAILY PO Last administered on 07/29/20at 08:32; Start 07/05/20 at 09:00 Ascorbic Acid (Vitamin C) 500 mg Q6HRS PO Last administered on 07/29/20at 06:28; Start 07/04/20 at 18:00 Vitamin D (Vitamin D3) 5,000 unit DAILY PO Last administered on 07/29/20at 08:32; Start 07/05/20 at 09:00 Vecuronium Madison (Norcuron Bolus) 6 mg 1X ONCE IV Last administered on 07/04/20at 13:27; Start 07/04/20 at 13:15; Stop 07/04/20 at 13:16; Status DC Norepinephrine Bitartrate 8 mg/ Dextrose 258 ml @ 16.061 mls/ hr CONT PRN IV PER PROTOCOL Last administered on 07/05/20at 00:33; Start 07/04/20 at 13:15; Stop 07/18/20 at 11:01; Status DC Fentanyl Citrate 55 ml @ 0 mls/hr CONT PRN IV SEE PROTOCOL Last administered on 07/29/20at 07:19; Start 07/04/20 at 14:45 Vecuronium Madison (Norcuron Bolus) 6 mg Q4H PRN IV OVERBREATHING VENT/out of sync Last administered on 07/20/20at 12:32; Start 07/04/20 at 16:45; Stop 07/22/20 at 09:34; Status DC Furosemide (Lasix) 40 mg 1X ONCE IVP Last administered on 07/05/20at 14:17; Start 07/05/20 at 13:30; Stop 07/05/20 at 13:31; Status DC Insulin Human Lispro (HumaLOG) 0-5 UNITS Q6HRS SQ Last administered on 07/11/20at 05:42; Start 07/05/20 at 18:00; Stop 07/11/20 at 07:54; Status DC Dextrose (Dextrose 50%-Water Syringe) 12.5 gm PRN Q15MIN PRN IV SEE COMMENTS; Start 07/05/20 at 14:15 Insulin Human Lispro (HumaLOG) 2 units 1X ONCE SQ Last administered on 07/05/20at 14:19; Start 07/05/20 at 14:30; Stop 07/05/20 at 14:31; Status DC Remdesivir 200 mg/ Sodium Chloride 210 ml @ 210 mls/hr 1X ONCE IV Last administered on 07/06/20at 14:51; Start 07/06/20 at 14:30; Stop 07/06/20 at 15:29; Status DC Remdesivir 100 mg/ Sodium Chloride 230 ml @ 460 mls/hr Q24H IV Last administered on 07/10/20at 13:59; Start 07/07/20 at 14:30; Stop 07/10/20 at 14:59; Status DC Insulin Human Lispro (HumaLOG) 0-9 UNITS TIDWMEALS SQ Last administered on 07/12/20at 11:31; Start 07/11/20 at 08:00; Stop 07/13/20 at 10:17; Status DC Methylprednisolone Sodium Succinate (SOLU-Medrol 40MG VIAL) 40 mg DAILY IV Last administered on 07/14/20at 07:57; Start 07/12/20 at 09:00; Stop 07/14/20 at 09:26; Status DC Acetaminophen (Tylenol) 650 mg PRN Q6HRS PRN PEG MILD PAIN / TEMP > 100.3'F Last administered on 07/27/20at 17:19; Start 07/12/20 at 12:00 Vecuronium [place] 50 mg/ Miscellaneous 50 ml @ 4.094 mls/ hr CONT PRN IV SEE I/O RECORD Last administered on 07/18/20at 01:56; Start 07/12/20 at 14:45; Stop 07/22/20 at 09:34; Status DC Insulin Human Lispro (HumaLOG) 0-9 UNITS Q6HRS SQ Last administered on 07/25/20at 11:49; Start 07/13/20 at 12:00; Stop 07/27/20 at 10:41; Status DC Methylprednisolone Sodium Succinate (SOLU-Medrol 40MG VIAL) 40 mg Q12HR IV Last administered on 07/16/20at 09:57; Start 07/14/20 at 21:00; Stop 07/16/20 at 12:10; Status DC Info (Anti-Coagulation Monitoring By Pharmacy) 1 each PRN DAILY PRN MC SEE COMMENTS Last administered on 07/26/20at 08:59; Start 07/16/20 at 08:15 Apixaban (Eliquis) 10 mg BID PO Last administered on 07/22/20at 20:39; Start 07/16/20 at 13:00; Stop 07/22/20 at 21:01; Status DC Methylprednisolone Sodium Succinate (SOLU-Medrol 40MG VIAL) 40 mg DAILY IV Last administered on 07/16/20at 12:22; Start 07/16/20 at 13:00; Stop 07/17/20 at 08:24; Status DC Apixaban (Eliquis) 5 mg BID PO Last administered on 07/26/20at 20:31; Start 07/23/20 at 09:00; Stop 07/27/20 at 12:19; Status DC Methylprednisolone Sodium Succinate (SOLU-Medrol 40MG VIAL) 40 mg Q12HR IV Last administered on 07/20/20at 07:54; Start 07/17/20 at 09:00; Stop 07/20/20 at 10:20; Status DC Multi-Ingred Cream/Lotion/Oil/ Oint (Artificial Tears Eye Ointment) 1 wenceslao PRN Q1HR PRN OU DRY EYE Last administered on 07/27/20at 17:19; Start 07/18/20 at 10:45 Furosemide (Lasix) 40 mg 1X ONCE IVP Last administered on 07/19/20at 00:55; Start 07/19/20 at 00:45; Stop 07/19/20 at 00:46; Status DC Methylprednisolone Sodium Succinate (SOLU-Medrol 40MG VIAL) 40 mg DAILY IV Last administered on 07/22/20at 09:08; Start 07/21/20 at 09:00; Stop 07/22/20 at 09:36; Status DC Lorazepam (Ativan Inj) 2 mg PRN Q1HR PRN IV SEE COMMENTS Last administered on 07/24/20at 06:51; Start 07/21/20 at 12:30 Vecuronium [place] (Norcuron Bolus) 6 mg PRN Q6HRS PRN IV SEDATION Last adm inistered on 07/22/20at 12:02; Start 07/22/20 at 12:00; Stop 07/26/20 at 21:14; Status DC Piperacillin Sod/ Tazobactam Sod 4.5 gm/Sodium Chloride 100 ml @ 200 mls/hr Q6HRS IV Last administered on 07/26/20at 05:36; Start 07/24/20 at 12:00; Stop 07/26/20 at 10:53; Status DC Potassium Chloride/Water 100 ml @ 100 mls/hr Q1H IV ; Start 07/24/20 at 15:30; Stop 07/24/20 at 19:29; Status UNV Potassium Chloride/Water 100 ml @ 100 mls/hr Q1H IV ; Start 07/24/20 at 15:30; Stop 07/24/20 at 17:29; Status UNV Potassium Chloride/Water 100 ml @ 100 mls/hr Q1H IV ; Start 07/24/20 at 15:30; Stop 07/24/20 at 23:29; Status UNV Potassium Chloride/Water 100 ml @ 100 mls/hr Q1H IV ; Start 07/24/20 at 15:30; Stop 07/24/20 at 19:29; Status UNV Potassium Chloride/Water 100 ml @ 100 mls/hr Q1H IV ; Start 07/24/20 at 15:30; Stop 07/25/20 at 03:29; Status UNV Potassium Chloride/Water 100 ml @ 100 mls/hr Q1HR IV ; Start 07/24/20 at 16:00; Stop 07/24/20 at 21:59; Status UNV Magnesium Sulfate 100 ml @ 50 mls/hr DAILY IV ; Start 07/25/20 at 09:00; Stop 07/28/20 at 08:59; Status UNV Sodium Phosphate 20 mmol/Sodium Chloride 256.6667 ml @ 62.5 mls/hr 1X ONCE IV ; Start 07/24/20 at 15:30; Stop 07/24/20 at 19:36; Status UNV Sodium Phosphate 30 mmol/Sodium Chloride 260 ml @ 62.5 mls/hr 1X ONCE IV ; Start 07/24/20 at 15:30; Stop 07/24/20 at 19:39; Status UNV Potassium Phosphate 13.6 mmol/Sodium Chloride 254.5333 ml @ 62.5 mls/hr Q4H IV ; Start 07/24/20 at 15:30; Stop 07/25/20 at 03:29; Status UNV Info (Icu Electrolyte Protocol) 1 ea CONT PRN PRN MC SEE COMMENTS; Start 07/24/20 at 15:45 Vancomycin HCl (Vanco Per Pharmacy) 1 each PRN DAILY PRN MC SEE COMMENTS Last administered on 07/26/20at 08:53; Start 07/25/20 at 07:00; Stop 07/26/20 at 21:14; Status DC Vancomycin HCl 2 gm/Sodium Chloride 500 ml @ 250 mls/hr 1X ONCE IV Last administered on 07/25/20at 07:06; Start 07/25/20 at 07:00; Stop 07/25/20 at 08:59; Status DC Vancomycin HCl 1.25 gm/Sodium Chloride 250 ml @ 167 mls/hr Q8H IV Last administered on 07/25/20at 22:44; Start 07/25/20 at 15:00; Stop 07/26/20 at 07:31; Status DC Vancomycin HCl (Vancomycin Trough Level) 1 each 1X ONCE MC Last administered on 07/26/20at 06:13; Start 07/26/20 at 06:30; Stop 07/26/20 at 06:31; Status DC Vancomycin HCl 1.5 gm/Sodium Chloride 500 ml @ 250 mls/hr Q8H IV Last administered on 07/26/20at 15:42; Start 07/26/20 at 08:00; Stop 07/26/20 at 21:14; Status DC Vancomycin HCl (Vancomycin Trough Level) 1 each 1X ONCE MC ; Start 07/27/20 at 07:30; Stop 07/27/20 at 07:31; Status Cancel Meropenem 500 mg/ Sodium Chloride 50 ml @ 100 mls/hr Q6HRS IV Last administered on 07/29/20at 06:31; Start 07/26/20 at 12:00 Potassium Chloride/Water 100 ml @ 100 mls/hr Q1H IV Last administered on 07/27/20at 11:29; Start 07/27/20 at 10:30; Stop 07/27/20 at 12:29; Status DC Insulin Human Lispro (HumaLOG) 0-9 UNITS [id number] SQ Last administered on 07/27/20at 18:17; Start 07/27/20 at 18:00 Linezolid/Dextrose 300 ml @ 300 mls/hr Q12HR IV Last administered on 07/29/20at 09:44; Start 07/27/20 at 12:30 Vecuronium [place] (Norcuron Bolus) 6 mg PRN Q6HRS ONCE IV ; Start 07/28/20 at 08:45; Stop 07/28/20 at 09:11; Status DC Vecuronium [place] (Norcuron Bolus) 6 mg 1X ONCE IV Last administered on 07/28/20at 09:34; Start 07/28/20 at 09:30; Stop 07/28/20 at 09:31; Status DC Vecuronium [place] (Norcuron Bolus) 6 mg PRN Q6HRS PRN IV Vent Management Last administered on 07/29/20at 09:42; Start 07/28/20 at 23:00 Furosemide (Lasix) 20 mg 1X ONCE IVP Last administered on 07/29/20at 06:35; Start 07/29/20 at 06:30; Stop 07/29/20 at 06:31; Status DC Potassium Bicarbonate (Potassium Effervescent Tablet) 20 meq 1X ONCE NG Last administered on 07/29/20at 06:36; Start 07/29/20 at 06:30; Stop 07/29/20 at 06:31; Status DC Vitals/I & O Vital Sign - Last 24 Hours 07/28/20 07/28/20 07/28/20 07/28/20 11:00 11:21 12:00 12:00 Temp 100.0 100.0 Pulse 78 72 Resp 18 21 B/P (MAP) 117/72 (87) 107/66 (80) Pulse Ox 100 100 89 O2 Delivery Ventilator Ventilator Ventilator Mechanical Ventilator 07/28/20 07/28/20 07/28/20 07/28/20 13:00 14:00 15:00 16:00 Pulse 80 86 84 Resp 18 20 25 B/P (MAP) 104/62 (76) 99/57 (71) 111/69 (83) Pulse Ox 100 100 100 O2 Delivery Ventilator Ventilator Ventilator Mechanical Ventilator 07/28/20 07/28/20 07/28/20 07/28/20 16:00 16:09 17:00 17:11 Temp 99.7 99.7 Pulse 83 76 Resp 22 B/P (MAP) 114/67 (83) 111/66 (81) Pulse Ox 100 100 100 100 O2 Delivery Ventilator Ventilator Ventilator O2 Flow Rate 15.0 07/28/20 07/28/20 07/28/20 07/28/20 17:41 18:00 19:00 20:00 Pulse 77 84 Resp 22 B/P (MAP) 96/61 (73) 96/55 (69) Pulse Ox 100 100 99 O2 Delivery Ventilator Ventilator Mechanical Ventilator O2 Flow Rate 15.0 07/28/20 07/28/20 07/28/20 07/28/20 20:00 20:33 21:00 22:00 Temp 100.1 99.6 100.1 99.6 Pulse 84 89 80 Resp 22 B/P (MAP) 98/56 (70) 110/65 (80) 92/57 (69) Pulse Ox 100 99 100 100 O2 Delivery Ventilator Ventilator Ventilator Ventilator 07/28/20 07/28/20 07/28/20 07/29/20 23:00 23:59 23:59 00:00 Temp 98.6 98.6 Pulse 82 98 Resp 22 38 B/P (MAP) 110/65 (80) 119/76 (90) Pulse Ox 100 98 99 O2 Delivery Ventilator Mechanical Ventilator Ventilator Ventilator 07/29/20 07/29/20 07/29/20 07/29/20 01:00 02:00 03:00 04:00 Temp 100.6 100.6 Pulse 72 74 76 Resp 22 22 22 B/P (MAP) 103/67 (79) 116/69 (85) 97/58 (71) Pulse Ox 100 100 100 O2 Delivery Ventilator Ventilator Ventilator Mechanical Ventilator 07/29/20 07/29/20 07/29/20 07/29/20 04:00 04:54 05:00 06:00 Temp 100.4 100.0 100.4 100.0 Pulse 80 90 86 Resp 22 28 28 B/P (MAP) 100/58 (72) 137/83 (101) 111/70 (84) Pulse Ox 100 100 100 100 O2 Delivery Ventilator Ventilator Ventilator Ventilator 07/29/20 07/29/20 07/29/20 07/29/20 07:00 07:19 07:49 08:22 Pulse 88 Resp 30 B/P (MAP) 120/75 (90) Pulse Ox 99 100 100 100 O2 Delivery Ventilator Ventilator O2 Flow Rate 15.0 15.0 Intake and Output 07/28/20 07/28/20 07/29/20 15:00 23:00 07:00 Intake Total 450 ml 1250 ml 1374 ml Output Total 1525 ml 580 ml 800 ml Balance -1075 ml 670 ml 574 ml Justicifation of Admission Dx: Justifications for Admission: Justification of Admission Dx: Yes REESE CASEY MD Jul 29, 2020 10:49
--- NOTE | 2020-07-29 12:31 | PDOC ---
Infectious Disease Note Subjective: Subjective Patient Intubated Fever pattern improving s/p PRBCS CT abdomen and pelvis still pending Vital Signs: Vital Signs Vital Signs Date Time Temp Pulse Resp B/P (MAP) Pulse Ox O2 Delivery O2 Flow Rate FiO2 07/29/20 11:18 97 Ventilator 07/29/20 07:49 15.0 07/29/20 07:00 88 30 120/75 (90) 07/29/20 06:00 100.0 100.0 Physical Exam: PHYSICAL EXAM General intubated/sedated HEENT normocephalic atraumatic, OGT/ETT present LUNGS: Coarse breath sounds anteriorly HEART: S1-S2 no murmurs ABDOMEN: Nondistended, soft bowel sounds present Fernandez in place SKIN: No generalized rash Right upper extremity PICC line removed PIV Clean Neuro intubated/sedated Medications: Inpatient Meds: Current Medications Medications (Trade) Dose Ordered Sig/Natalee Start Time Stop Time Status Last Admin Dose Admin Acetaminophen (Tylenol) 650 mg PRN Q6HRS PRN 07/12/20 12:00 07/27/20 17:19 650 MG Apixaban (Eliquis) 5 mg BID 07/23/20 09:00 07/27/20 12:19 DC 07/26/20 20:31 5 MG Ascorbic Acid (Vitamin C) 500 mg Q6HRS 07/04/20 18:00 07/29/20 06:28 500 MG Azithromycin (Zithromax) 500 mg 1X ONCE 07/03/20 19:15 07/03/20 19:19 DC 07/03/20 20:11 500 MG Ceftriaxone Sodium (Rocephin) 1 gm 1X ONCE 07/03/20 19:15 07/03/20 19:19 DC 07/03/20 20:11 1 GM Dextrose (Dextrose 50%-Water Syringe) 12.5 gm PRN Q15MIN PRN 07/05/20 14:15 Enoxaparin Sodium (Lovenox 150mg Syringe) 150 mg 1X ONCE 07/03/20 23:00 07/03/20 23:01 DC 07/03/20 22:45 150 MG Etomidate (Amidate) 10 mg 1X ONCE 07/04/20 09:30 07/04/20 09:31 DC 07/04/20 09:37 10 MG Fentanyl Citrate 55 ml @ 0 mls/hr CONT PRN 07/04/20 14:45 07/29/20 07:19 3 MLS/HR Furosemide (Lasix) 20 mg 1X ONCE 07/29/20 06:30 07/29/20 06:31 DC 07/29/20 06:35 20 MG Heparin Sodium (Porcine) (Heparin Sodium) 1,250 unit PRN Q6HRS PRN 07/04/20 12:00 07/16/20 12:09 DC 07/05/20 18:27 1,250 UNIT Heparin Sodium/ Dextrose 250 ml @ 0 mls/hr CONT PRN 07/04/20 12:00 07/16/20 12:09 DC 07/15/20 02:09 14.9 MLS/HR Info (Anti-Coagulation Monitoring By Pharmacy) 1 each PRN DAILY PRN 07/16/20 08:15 07/26/20 08:59 1 EACH Info (CONTRAST GIVEN -- Rx MONITORING) 1 each PRN DAILY PRN 07/03/20 20:45 07/05/20 20:44 DC Info (Icu Electrolyte Protocol) 1 ea CONT PRN PRN 07/24/20 15:45 Insulin Human Lispro (HumaLOG) 0-9 UNITS [id number] 07/27/20 18:00 07/27/20 18:17 4 UNITS Iohexol (Omnipaque 350 Mg/ml) 90 ml 1X ONCE 07/03/20 20:45 07/03/20 20:46 DC 07/03/20 21:00 90 ML Linezolid/Dextrose 300 ml @ 300 mls/hr Q12HR 07/27/20 12:30 07/29/20 09:44 300 MLS/HR Lorazepam (Ativan Inj) 2 mg PRN Q1HR PRN 07/21/20 12:30 07/24/20 06:51 2 MG Magnesium Sulfate 100 ml @ 50 mls/hr DAILY 07/25/20 09:00 07/28/20 08:59 UNV Meropenem 500 mg/ Sodium Chloride 50 ml @ 100 mls/hr Q6HRS 07/26/20 12:00 07/29/20 06:31 100 MLS/HR Methylprednisolone Sodium Succinate (SOLU-Medrol 40MG VIAL) 40 mg DAILY 07/21/20 09:00 07/22/20 09:36 DC 07/22/20 09:08 40 MG Midazolam HCl (Versed) 5 mg STK-MED ONCE 07/04/20 09:21 07/04/20 09:21 DC Morphine Sulfate (Morphine Sulfate) 2 mg PRN Q2HR PRN 07/03/20 22:30 07/04/20 22:29 DC Multi-Ingred Cream/Lotion/Oil/ Oint (Artificial Tears Eye Ointment) 1 wenceslao PRN Q1HR PRN 07/18/20 10:45 07/27/20 17:19 1 WENCESLAO Norepinephrine Bitartrate 8 mg/ Dextrose 258 ml @ 16.061 mls/ hr CONT PRN 07/04/20 13:15 07/18/20 11:01 DC 07/05/20 00:33 28.909 MLS/HR Ondansetron HCl (Zofran) 4 mg PRN Q8HRS PRN 07/03/20 22:30 07/04/20 22:29 DC Pantoprazole Sodium (PROTONIX VIAL for IV PUSH) 40 mg DAILYAC 07/04/20 12:30 07/29/20 08:33 40 MG Piperacillin Sod/ Tazobactam Sod (Zosyn Per Pharmacy) 1 each PRN DAILY PRN 07/04/20 12:00 07/18/20 07:46 DC Piperacillin Sod/ Tazobactam Sod 3.375 gm/Sodium Chloride 50 ml @ 100 mls/hr Q6HRS 07/04/20 12:00 07/17/20 11:11 DC 07/17/20 05:10 100 MLS/HR Piperacillin Sod/ Tazobactam Sod 4.5 gm/Sodium Chloride 100 ml @ 200 mls/hr Q6HRS 07/24/20 12:00 07/26/20 10:53 DC 07/26/20 05:36 200 MLS/HR Potassium Bicarbonate (Potassium Effervescent Tablet) 20 meq 1X ONCE 07/29/20 06:30 07/29/20 06:31 DC 07/29/20 06:36 20 MEQ Potassium Chloride/Water 100 ml @ 100 mls/hr Q1H 07/27/20 10:30 07/27/20 12:29 DC 07/27/20 11:29 100 MLS/HR Potassium Phosphate 13.6 mmol/Sodium Chloride 254.5333 ml @ 62.5 mls/hr Q4H 07/24/20 15:30 07/25/20 03:29 UNV Propofol 100 ml @ 0 mls/hr CONT PRN 07/04/20 09:15 07/28/20 21:30 14.9 MLS/HR Remdesivir 100 mg/ Sodium Chloride 230 ml @ 460 mls/hr Q24H 07/07/20 14:30 07/10/20 14:59 DC 07/10/20 13:59 460 MLS/HR Remdesivir 200 mg/ Sodium Chloride 210 ml @ 210 mls/hr 1X ONCE 07/06/20 14:30 07/06/20 15:29 DC 07/06/20 14:51 210 MLS/HR Sodium Chloride 1,000 ml @ 100 mls/hr Q10H 07/03/20 23:00 07/04/20 22:59 DC 07/05/20 00:35 100 MLS/HR Sodium Phosphate 20 mmol/Sodium Chloride 256.6667 ml @ 62.5 mls/hr 1X ONCE 07/24/20 15:30 07/24/20 19:36 UNV Sodium Phosphate 30 mmol/Sodium Chloride 260 ml @ 62.5 mls/hr 1X ONCE 07/24/20 15:30 07/24/20 19:39 UNV Succinylcholine Chloride (Anectine) 200 mg 1X ONCE 07/04/20 09:30 07/04/20 09:31 DC 07/04/20 09:38 200 MG Throat Lozenges (Cepacol Sore Throat Lozenge) 1 lety PRN Q2HRS PRN 07/04/20 01:15 Vancomycin HCl (Vanco Per Pharmacy) 1 each PRN DAILY PRN 07/25/20 07:00 07/26/20 21:14 DC 07/26/20 08:53 1 EACH Vancomycin HCl (Vancomycin Trough Level) 1 each 1X ONCE 07/27/20 07:30 07/27/20 07:31 Cancel Vancomycin HCl 1.25 gm/Sodium Chloride 250 ml @ 167 mls/hr Q8H 07/25/20 15:00 07/26/20 07:31 DC 07/25/20 22:44 167 MLS/HR Vancomycin HCl 1.5 gm/Sodium Chloride 500 ml @ 250 mls/hr Q8H 07/26/20 08:00 07/26/20 21:14 DC 07/26/20 15:42 250 MLS/HR Vancomycin HCl 2 gm/Sodium Chloride 500 ml @ 250 mls/hr 1X ONCE 07/25/20 07:00 07/25/20 08:59 DC 07/25/20 07:06 250 MLS/HR Vecuronium [place] 50 mg/ Miscellaneous 50 ml @ 4.094 mls/ hr CONT PRN 07/12/20 14:45 07/22/20 09:34 DC 07/18/20 01:56 7.5 MLS/HR Vecuronium [place] (Norcuron Bolus) 6 mg PRN Q6HRS PRN 07/28/20 23:00 07/29/20 09:42 6 MG Vitamin D (Vitamin D3) 5,000 unit DAILY 07/05/20 09:00 07/29/20 08:32 5,000 UNIT Zinc Sulfate (Orazinc) 220 mg DAILY 07/05/20 09:00 07/29/20 08:32 220 MG Labs: Lab Laboratory Tests Test 07/28/20 12:45 07/28/20 18:37 07/29/20 05:00 07/29/20 08:30 White Blood Count 7.2 x10^3/uL (4.0-11.0) 6.6 x10^3/uL (4.0-11.0) Red Blood Count 3.38 x10^6/uL (4.30-5.70) 3.28 x10^6/uL (4.30-5.70) Hemoglobin 11.0 g/dL (13.0-17.5) 10.7 g/dL (13.0-17.5) Hematocrit 32.7 % (39.0-53.0) 31.9 % (39.0-53.0) Mean Corpuscular Volume 97 fL (79-100) 97 fL (79-100) Mean Corpuscular Hemoglobin 33 pg (25-35) 33 pg (25-35) Mean Corpuscular Hemoglobin Concent 34 g/dL (31-37) 34 g/dL (31-37) Red Cell Distribution Width 16.1 % (11.5-14.5) 16.0 % (11.5-14.5) Platelet Count 188 x10^3/uL (140-400) 211 x10^3/uL (140-400) Neutrophils (%) (Auto) 81 % (31-73) 76 % (31-73) Lymphocytes (%) (Auto) 10 % (24-48) 14 % (24-48) Monocytes (%) (Auto) 6 % (0-9) 5 % (0-9) Eosinophils (%) (Auto) 4 % (0-3) 5 % (0-3) Basophils (%) (Auto) 1 % (0-3) 1 % (0-3) Neutrophils # (Auto) 5.8 x10^3/uL (1.8-7.7) 5.0 x10^3/uL (1.8-7.7) Lymphocytes # (Auto) 0.7 x10^3/uL (1.0-4.8) 0.9 x10^3/uL (1.0-4.8) Monocytes # (Auto) 0.4 x10^3/uL (0.0-1.1) 0.3 x10^3/uL (0.0-1.1) Eosinophils # (Auto) 0.3 x10^3/uL (0.0-0.7) 0.3 x10^3/uL (0.0-0.7) Basophils # (Auto) 0.0 x10^3/uL (0.0-0.2) 0.0 x10^3/uL (0.0-0.2) Sodium Level 134 mmol/L (136-145) 135 mmol/L (136-145) Potassium Level 3.7 mmol/L (3.5-5.1) 3.5 mmol/L (3.5-5.1) Chloride Level 96 mmol/L (98-107) 95 mmol/L (98-107) Carbon Dioxide Level 34 mmol/L (21-32) 32 mmol/L (21-32) Anion Gap 4 (6-14) 8 (6-14) Blood Urea Nitrogen 9 mg/dL (8-26) 9 mg/dL (8-26) Creatinine 0.5 mg/dL (0.7-1.3) 0.4 mg/dL (0.7-1.3) Estimated GFR (Cockcroft-Gault) 176.0 227.7 BUN/Creatinine Ratio 18 (6-20) 23 (6-20) Glucose Level 167 mg/dL (70-99) 158 mg/dL (70-99) Calcium Level 8.0 mg/dL (8.5-10.1) 8.3 mg/dL (8.5-10.1) Total Bilirubin 0.4 mg/dL (0.2-1.0) 0.4 mg/dL (0.2-1.0) Aspartate Amino Transf (AST/SGOT) 27 U/L (15-37) 39 U/L (15-37) Alanine Aminotransferase (ALT/SGPT) 45 U/L (16-63) 61 U/L (16-63) Alkaline Phosphatase 217 U/L (46-116) 240 U/L (46-116) Total Protein 6.1 g/dL (6.4-8.2) 6.0 g/dL (6.4-8.2) Albumin 1.4 g/dL (3.4-5.0) 1.5 g/dL (3.4-5.0) Albumin/Globulin Ratio 0.3 (1.0-1.7) 0.3 (1.0-1.7) Glucose (Fingerstick) 100 mg/dL (70-99) O2 Saturation 96 % (92-99) Arterial Blood pH 7.47 (7.35-7.45) Arterial Blood pCO2 at Patient Temp 47 mmHg (35-46) Arterial Blood pO2 at Patient Temp 77 mmHg (75-108) Arterial Blood HCO3 33 mmol/L (21-28) Arterial Blood Base Excess 8 mmol/L (-3-3) FiO2 45% vent Test 07/29/20 11:56 Glucose (Fingerstick) 134 mg/dL (70-99) Objective: Assessment: Fever Leukocytosis improved COVID-19 positive. Status post remdesivir, steroids Acute hypoxic respiratory failure/ARDS /pneumonia Bilateral pulmonary emboli. Hypertension. Bacteremia 07/23 08/25 bottles staph hominis likely contaminant Repeat blood cultures staph capitis likely contaminant Enterobacter UTI Plan: Plan of Care Cont meropenem/Zyvox RUE PICC line DC'd CT A/P still pending Fernandez changed 07/26 Follow-up repeat BC Monitor labs and cultures Critically ill D/W RN LORNA,EDDYUNDHATI S MD Jul 29, 2020 12:31
[2020-07-29 12:37] LABS: % BANDS 8 % (0-9); % EOS 3 % (0-5); % LYMPHS 16 % (24-48); % MONOS 5 % (0-10); % MYELOS 3 % (0-0); % SEGS 65 % (35-66); PLT ESTIMATE ADEQUATE (ADEQUATE)
--- NOTE | 2020-07-29 15:17 | RAD ---
Abdominal and Pelvis CT, Without Contrast: History: Reason: R/O OBSTRUCTIVE UROPATHY OR OTHER ABN,PT WITH FEVER / Spl. Instructions: / History: Comparison: None. Procedure: Axial images are obtained of the abdomen and pelvis, without IV or oral contrast. Oral Contrast: No Findings: Evaluation of solid organs is limited without contrast. There is a moderate left pleural effusion and there is a mild right effusion and there is significant patchy opacities in the lung bases. There is a loculated air-fluid collection anteriorly in the left lung base partially included in this examination. There is an NG tube with its tip in the distal stomach. The appendix is normal. The gallbladder is normal. There is air and stool scattered throughout the colon. The urinary bladder is mostly collapsed around a Fernandez. Mild air in the anterior bladder is likely from Fernandez placement. Liver: Normal. Spleen: Normal. Pancreas: Normal. Adrenal Glands: Normal. Kidneys: Normal. There is no free air or free fluid. There is no lymphadenopathy. There is no pericolonic inflammation identified. Impression: 1. Bilateral pleural effusions and bilateral infiltrates left worse than right suggests atypical pneumonia. 2. There is an air-fluid collection anteriorly in the left lung base partially included examination which could be a loculated hydropneumothorax or could be a lung abscess. 3. Mild colonic constipation versus colonic ileus. End impression PQRS Compliance Statement: One or more of the following individualized dose reduction techniques were utilized for this examination: 1. Automated exposure control 2. Adjustment of the mA and/or kV according to patient size 3. Use of iterative reconstruction technique Electronically signed by: Addison Wan III, MD (07/29/2020 3:14 PM) [facility]
[2020-07-29] MEDS: ACETAMINOPHEN 650 MG/20.3 ML SOLUTION. PEG PRN (23:46)
[2020-07-30] VITALS (23 sets, daily range): BP systolic 94–136; BP diastolic 47–80
[2020-07-30] MEDS: PROPOFOL 100 ML IV PRN ×3 (04:09→17:47)
[2020-07-30] MEDS: MIDAZOLAM 100mg/100ml NS BAG 100 ML IV PRN ×2 (05:17→14:43)
[2020-07-30] MEDS: fentaNYL HIGH DOSE PCA 55 ML IV PRN (05:18)
[2020-07-30] MEDS: ASCORBIC ACID 500 MG TABLET PO SCH ×4 (05:39→23:33)
[2020-07-30] MEDS: MEROPENEM 500 MG in IV NORMAL SALINE 50ML 50 ML IV SCH ×4 (05:40→23:33)
[2020-07-30] MEDS: INSULIN LISPRO 300 UNITS/3 ML VIAL. SQ SCH ×2 (05:40→17:49)
--- NOTE | 2020-07-30 07:43 | PDOC ---
Infectious Disease Note Subjective Subjective Patient Intubated Fever pattern improving ROS ROS unable to do Vital Sign Vital Signs Vital Signs Date Time Temp Pulse Resp B/P (MAP) Pulse Ox O2 Delivery O2 Flow Rate FiO2 07/30/20 06:00 98.4 73 20 106/63 (77) 98 Ventilator 98.4 07/29/20 07:49 15.0 Physical Exam PHYSICAL EXAM General intubated/sedated HEENT normocephalic atraumatic, OGT/ETT present LUNGS: Coarse breath sounds anteriorly HEART: S1-S2 no murmurs ABDOMEN: Nondistended, soft bowel sounds present Fernandez in place SKIN: No generalized rash Right upper extremity PICC line removed PIV Clean Neuro intubated/sedated Labs Lab Laboratory Tests Test 07/29/20 08:30 07/29/20 11:56 07/29/20 16:54 07/30/20 05:34 O2 Saturation 96 % (92-99) Arterial Blood pH 7.47 (7.35-7.45) Arterial Blood pCO2 at Patient Temp 47 mmHg (35-46) Arterial Blood pO2 at Patient Temp 77 mmHg (75-108) Arterial Blood HCO3 33 mmol/L (21-28) Arterial Blood Base Excess 8 mmol/L (-3-3) FiO2 45% vent Glucose (Fingerstick) 134 mg/dL (70-99) 116 mg/dL (70-99) 144 mg/dL (70-99) Micro Microbiology 07/03/20 Blood Culture - Final, Complete NO GROWTH AFTER 5 DAYS Objective Assessment Fever Leukocytosis improved COVID-19 positive. Status post remdesivir, steroids Acute hypoxic respiratory failure/ARDS /pneumonia Bilateral pulmonary emboli. Hypertension. Bacteremia 07/232 bottles staph hominis likely contaminant Repeat blood cultures staph capitis likely contaminant Enterobacter UTI Plan Plan of Care Cont meropenem/Zyvox RUE PICC line DC'd Fernandez changed 07/26 Follow-up repeat BC Monitor labs and cultures Critically ill D/W MONALISA LUCAS MD Jul 30, 2020 07:43
--- NOTE | 2020-07-30 09:40 | PDOC ---
[employer] PROGRESS NOTE Date of Service DOS: DATE: 07/30/20 TIME: 09:37 Chief Complaint Chief Complaint IMPRESSION Acute hypoxic respiratory failure requiring VENT SUPPORT Acute hypoxic respiratory failure/ARDS /pneumonia Bilateral perihilar and basilar opacities, progressed in the left base. 07-26 [facility]- Subsegmental bilateral PE Leukocytosis NSTEMI AKA Lactic acidosis Hyponatremia, RESOLVED hgb 6.5 07-27, transfused 1 unit prbc's hyp[okalemia, on replacement Plan: Appreciate pulmonology recommendations Continue current ventilatory support, currently on 70% and PEEP of 6, avoid increasing PEEP 2/2 risk of barotrauma Follow chest x-ray and ABG, vent management as per pulmonology Heparin has been transitioned to Xarelto Solu-Medrol 40 mg every 12 hours Appreciate ID recommendationscontinue Remdesivir and empiric antibiotics IV fluids Discussed with RN and SW. Antibiotics per ID-- off ABX, infectious disease following increasing leukocytosis has completed full course of remdesivir continue tube feeding for nutritional support 35 MIN CC TIME History of Present Illness History of Present Illness 07/30/2020 Patient seen in [place] [id number] ICU. He is febrile on vent, FiO2 45%, PEEP 6. Will attempt to speak with family about decision on trach and PEG tube. Discussed with RN. t max 102 f fio2 50% 07/21/2020 Patient no acute events reported overnight. Patient continues to require a lot of support from vent. Discussed with RN 09/19/2019 Patient continues to be pretty much the same , fio2 is at 70%, heparin 07/19/2020 Patient hypotensive today, we will follow recommendations from critical child care counselor. Vent management as per car sales consultant, no other complaints. 07/18/2020 Patient with no acute events reported overnight, fio2 is now at 75% PEEP of 6, Vent management as per pulmonary car sales consultant slight increase in temperature noted over the lat 24 hours. Will continue to follow 07/17/2020 Patient with no acute events reported overnight, contineus to require an fio2 of 80%, continue with supportive measures. 07/16/2020 Patient with no acute events reported overnight, patient continues to require quite a bit of FiO2 at 80%. Vent management as per car sales consultant, will place a call to family members after rounding. Discussed with RN 07/15/2020 Patient seen and examined bedside in the ICU. FiO2 80% PEEP of 6.pH 7.56, PCO2 32, PO2 56, HCO3 28. Will adjust respiratory rate accordingly to correct pH.> 50% time spent in patient chart, labs, and imaging review and in discussion with RN and JAVIER 07/14/2020 Patient seen and examined bedside. FiO2 65% and PEEP of 6 on vent. ABG: pH 7.26, PCO2 77, PO2 114, HCO3 34. We will adjust respiratory rate or tidal volume to titrate pH.> 50% time spent in patient chart, labs, and imaging review and in discussion with RN and JAVIER 07/13/2020 No acute events overnight. Patient examined bedside sedated and intubated. FiO2 70% PEEP of 6. Improved ABGs.> 50% time spent in patient chart, labs, and imaging review and in discussion with RN and JAVIER 07/12/2020 Patient seen and examined in the ICU. Sedated and intubated. FiO2 65, PEEP of 8 with improved oxygenation. pH 7.4, PCO2 48, PO2 94, HCO3 30. +500 cc fluid balance.> 50% time spent in patient chart, labs, and imaging review and in discussion with RN and JAVIER 07/11/2020 Patient seen and examined bedside in the ICU. Patient continues to be intubated and sedated. FiO2 75%, PEEP of 10. pH 7.40, PCO2 44, PO2 is 135, HCO3 26. Can likely decrease FiO2 due to improved oxygenation. +173 cc in the past 24 hours 07/10/2020 Patient seen and examined bedside in ICU. Patient is intubated and sedated. FiO2 90%, PEEP of 10, respiratory rate of 30. ABG: pH is 7.41, PCO2 42, PO2 113, HCO3 26. 07/09/2020 Patient seen and examined in the ICU. Intubated and sedated. Vent settings FiO 2 90%, PEEP of 10, respiratory rate of 30. 07/05: Patient seen in ICU, still intubated and sedated. COVID-19 pending. Patient remains on heparin infusion. Discussed with RN, will try to have central line placed per anesthesia. 07/06: Patient seen in ICU. Still FiO2 100% on vent and sedated. COVID-19 positive. Continue heparin infusion, Zosyn, steroids. 07/07: Covid positive patient seen in ICU. On vent with FiO2 100%, PEEP 10. Continue remdesivir, steroids, Zosyn. Continue to monitor 07/08: Patient seen in Covid ICU. Still on vent with FiO2 100%, PEEP 10. Afebrile. No acute events overnight. Continue steroids, antibiotics, and remdesivir. Patient is 49-year-old male with past medical history of hypertension, who presents to the ED with complaints of worsening shortness of breath over the past 5 days. Associated sore throat, fatigue, and generalized weakness. Patient was reportedly tested for COVID-19 last Thursday, but he had negative test results. His symptoms acutely worsened yesterday. Upon arrival to the ER his oxygen saturation was 60% on room air. He was placed on BiPAP and admitted to the ICU. Patient was subsequently intubated due to worsening respiratory failure. Vitals/I&O Vitals/I&O: Vital Signs Date Time Temp Pulse Resp B/P (MAP) Pulse Ox O2 Delivery O2 Flow Rate FiO2 07/30/20 06:00 98.4 73 20 106/63 (77) 98 Ventilator 98.4 07/29/20 07:49 15.0 I & O 07/29/20 07/29/20 07/30/20 15:00 23:00 07:00 Intake Total 150 ml 500 ml 1677 ml Output Total 2800 ml 765 ml 710 ml Balance -2650 ml -265 ml 967 ml Physical Exam Physical Exam: General intubated/sedated HEENT normocephalic atraumatic, OGT/ETT present LUNGS: Coarse breath sounds anteriorly HEART: S1-S2 no murmurs ABDOMEN: Nondistended, soft bowel sounds present Fernandez in place SKIN: No generalized rash Right upper extremity PICC line removed PIV Clean Neuro intubated/sedated General: No acute distress Heart: Regular rate (SR/ST) Lungs: Other (orally intubated, clear ) Abdomen: Other (Nondistended) Extremities: No clubbing, No cyanosis Skin: No rashes, No breakdown Labs Labs: Laboratory Tests Test 07/29/20 11:56 07/29/20 16:54 07/30/20 05:34 Glucose (Fingerstick) 134 mg/dL (70-99) 116 mg/dL (70-99) 144 mg/dL (70-99) Review of Systems Review of Systems: Unable to obtain due to clinical condition Assessment and Plan Assessmemt and Plan Problems Medical Problems: (1) Acute respiratory failure with hypoxia Status: Acute (2) PRIYA (acute kidney injury) Status: Acute (3) Elevated troponin I level Status: Acute (4) Pulmonary emboli Status: Acute (5) Suspected COVID-19 virus infection Status: Acute Comment Review of Relevant I have reviewed the following items trino (where applicable) has been applied. Justifications for Admission Other Justification SHERLY DUKES MD Jul 30, 2020 09:40
[2020-07-30] MEDS: ZINC SULFATE 220 MG CAPSULE. PO SCH (09:48)
[2020-07-30] MEDS: PANTOPRAZOLE IV PUSH 40 MG VIAL. IVP SCH (09:48)
[2020-07-30] MEDS: CHOLECALCIFEROL (VITAMIN D3) 5,000 UNIT CAPSULE PO SCH (09:48)
[2020-07-30] MEDS: ACETAMINOPHEN 650 MG/20.3 ML SOLUTION. PEG PRN (09:48)
--- NOTE | 2020-07-30 11:08 | PDOC ---
PULMONARY PROGRESS NOTES DATE: 07/30/20 TIME: 11:05 Subjective PT. remains on vent support , 45% FiO2 and a PEEP of 6 large ett secretion sedated on propofol fentanyl versed vec prn low grade fever Vitals Vital Signs Date Time Temp Pulse Resp B/P (MAP) Pulse Ox O2 Delivery O2 Flow Rate FiO2 07/30/20 06:00 98.4 73 20 106/63 (77) 98 Ventilator 98.4 07/29/20 07:49 15.0 Comments Patient seen during ID pandemic visual exam performed Intubated/sedated nc at has accessory muscle use tachypneac RRR No obvious rash or edema Lungs: Other (orally intubated, clear ) Labs Laboratory Tests Test 07/28/20 12:45 07/28/20 18:37 07/29/20 05:00 07/29/20 08:30 White Blood Count 7.2 x10^3/uL (4.0-11.0) 6.6 x10^3/uL (4.0-11.0) Red Blood Count 3.38 x10^6/uL (4.30-5.70) 3.28 x10^6/uL (4.30-5.70) Hemoglobin 11.0 g/dL (13.0-17.5) 10.7 g/dL (13.0-17.5) Hematocrit 32.7 % (39.0-53.0) 31.9 % (39.0-53.0) Mean Corpuscular Volume 97 fL (79-100) 97 fL (79-100) Mean Corpuscular Hemoglobin 33 pg (25-35) 33 pg (25-35) Mean Corpuscular Hemoglobin Concent 34 g/dL (31-37) 34 g/dL (31-37) Red Cell Distribution Width 16.1 % (11.5-14.5) 16.0 % (11.5-14.5) Platelet Count 188 x10^3/uL (140-400) 211 x10^3/uL (140-400) Neutrophils (%) (Auto) 81 % (31-73) 76 % (31-73) Lymphocytes (%) (Auto) 10 % (24-48) 14 % (24-48) Monocytes (%) (Auto) 6 % (0-9) 5 % (0-9) Eosinophils (%) (Auto) 4 % (0-3) 5 % (0-3) Basophils (%) (Auto) 1 % (0-3) 1 % (0-3) Neutrophils # (Auto) 5.8 x10^3/uL (1.8-7.7) 5.0 x10^3/uL (1.8-7.7) Lymphocytes # (Auto) 0.7 x10^3/uL (1.0-4.8) 0.9 x10^3/uL (1.0-4.8) Monocytes # (Auto) 0.4 x10^3/uL (0.0-1.1) 0.3 x10^3/uL (0.0-1.1) Eosinophils # (Auto) 0.3 x10^3/uL (0.0-0.7) 0.3 x10^3/uL (0.0-0.7) Basophils # (Auto) 0.0 x10^3/uL (0.0-0.2) 0.0 x10^3/uL (0.0-0.2) Sodium Level 134 mmol/L (136-145) 135 mmol/L (136-145) Potassium Level 3.7 mmol/L (3.5-5.1) 3.5 mmol/L (3.5-5.1) Chloride Level 96 mmol/L (98-107) 95 mmol/L (98-107) Carbon Dioxide Level 34 mmol/L (21-32) 32 mmol/L (21-32) Anion Gap 4 (6-14) 8 (6-14) Blood Urea Nitrogen 9 mg/dL (8-26) 9 mg/dL (8-26) Creatinine 0.5 mg/dL (0.7-1.3) 0.4 mg/dL (0.7-1.3) Estimated GFR (Cockcroft-Gault) 176.0 227.7 BUN/Creatinine Ratio 18 (6-20) 23 (6-20) Glucose Level 167 mg/dL (70-99) 158 mg/dL (70-99) Calcium Level 8.0 mg/dL (8.5-10.1) 8.3 mg/dL (8.5-10.1) Total Bilirubin 0.4 mg/dL (0.2-1.0) 0.4 mg/dL (0.2-1.0) Aspartate Amino Transf (AST/SGOT) 27 U/L (15-37) 39 U/L (15-37) Alanine Aminotransferase (ALT/SGPT) 45 U/L (16-63) 61 U/L (16-63) Alkaline Phosphatase 217 U/L (46-116) 240 U/L (46-116) Total Protein 6.1 g/dL (6.4-8.2) 6.0 g/dL (6.4-8.2) Albumin 1.4 g/dL (3.4-5.0) 1.5 g/dL (3.4-5.0) Albumin/Globulin Ratio 0.3 (1.0-1.7) 0.3 (1.0-1.7) Glucose (Fingerstick) 100 mg/dL (70-99) Segmented Neutrophils % 65 % (35-66) Band Neutrophils % 8 % (0-9) Lymphocytes % 16 % (24-48) Monocytes % 5 % (0-10) Eosinophils % 3 % (0-5) Myelocytes % 3 % (0-0) Platelet Estimate Adequate (ADEQUATE) O2 Saturation 96 % (92-99) Arterial Blood pH 7.47 (7.35-7.45) Arterial Blood pCO2 at Patient Temp 47 mmHg (35-46) Arterial Blood pO2 at Patient Temp 77 mmHg (75-108) Arterial Blood HCO3 33 mmol/L (21-28) Arterial Blood Base Excess 8 mmol/L (-3-3) FiO2 45% vent Test 07/29/20 11:56 07/29/20 16:54 07/30/20 05:34 Glucose (Fingerstick) 134 mg/dL (70-99) 116 mg/dL (70-99) 144 mg/dL (70-99) Laboratory Tests Test 07/29/20 11:56 07/29/20 16:54 07/30/20 05:34 Glucose (Fingerstick) 134 mg/dL (70-99) 116 mg/dL (70-99) 144 mg/dL (70-99) Comments CXR reviewed 1. Stable life support devices. 2. Bilateral perihilar and basilar opacities, progressed in the left base Impression . IMPRESSION: 1. Acute hypoxemic respiratory failure./ALI/ARDS due to COVID -19 2. Acute pulmonary embolism with cor pulmonale. 3. COVID-[address] chest revealing ground glass opacities. 5. Hypertension. 6. History of bronchitis. 7. Elevated troponin. 8. Acute kidney injury. 9. Leukocytosis. 10. Covid-19 positive 11. Possible loculated hydroPTX left base Plan . Continue current ventilatory support, FiO2 45% and a PEEP of 6, 02 titration as tolerated vec prn I>>O for the past few days lasix iv kcl per ng does not tolerate off sedation. d/w family , needs trach, they agree surgery re consulted for trach s/p PRBC and monitor HGB, transfuse if less than 7.0 off eliquis, consider IV heparin when ready to restart A/C reviewed chest x-ray and ABG, Follow cardiology recommendations Antibiotics per ID-- Vasopressors if need for hypotension, keep MAP above 65 Has completed full course of remdesivir Continue tube feeding for nutritional support DVT/GI prophylaxis,Protonix monitor cxr prn for PTX Discussed with RN and RT Pt. is FULL CODE critically ill cc time 30 min no overlap NERY SALINAS MD Jul 30, 2020 11:08
--- NOTE | 2020-07-30 11:49 | PDOC ---
NATE SANTIAGO HISTORICAL GUIDE 07/30/20 1149: SURGICAL PROGRESS NOTE DATE: 07/30/20 TIME: 11:47 Subjective vent, not able to extubate family now agreeable to trach Vital Signs Vital Signs Date Time Temp Pulse Resp B/P (MAP) Pulse Ox O2 Delivery O2 Flow Rate FiO2 07/30/20 06:00 98.4 73 20 106/63 (77) 98 Ventilator 98.4 07/29/20 07:49 15.0 I&O Intake and Output 07/30/20 06:59 Intake Total 2327 ml Output Total 4275 ml Balance -1948 ml IV Total 1011 ml Tube Feeding 1116 ml Other 200 ml Output Urine Total 4275 ml Gastric Drainage Total 0 ml General: No acute distress HEENT: Other ([facility] vent) Abdomen: Soft Labs Laboratory Tests Test 07/28/20 12:45 07/28/20 18:37 07/29/20 05:00 07/29/20 08:30 White Blood Count 7.2 x10^3/uL (4.0-11.0) 6.6 x10^3/uL (4.0-11.0) Red Blood Count 3.38 x10^6/uL (4.30-5.70) 3.28 x10^6/uL (4.30-5.70) Hemoglobin 11.0 g/dL (13.0-17.5) 10.7 g/dL (13.0-17.5) Hematocrit 32.7 % (39.0-53.0) 31.9 % (39.0-53.0) Mean Corpuscular Volume 97 fL (79-100) 97 fL (79-100) Mean Corpuscular Hemoglobin 33 pg (25-35) 33 pg (25-35) Mean Corpuscular Hemoglobin Concent 34 g/dL (31-37) 34 g/dL (31-37) Red Cell Distribution Width 16.1 % (11.5-14.5) 16.0 % (11.5-14.5) Platelet Count 188 x10^3/uL (140-400) 211 x10^3/uL (140-400) Neutrophils (%) (Auto) 81 % (31-73) 76 % (31-73) Lymphocytes (%) (Auto) 10 % (24-48) 14 % (24-48) Monocytes (%) (Auto) 6 % (0-9) 5 % (0-9) Eosinophils (%) (Auto) 4 % (0-3) 5 % (0-3) Basophils (%) (Auto) 1 % (0-3) 1 % (0-3) Neutrophils # (Auto) 5.8 x10^3/uL (1.8-7.7) 5.0 x10^3/uL (1.8-7.7) Lymphocytes # (Auto) 0.7 x10^3/uL (1.0-4.8) 0.9 x10^3/uL (1.0-4.8) Monocytes # (Auto) 0.4 x10^3/uL (0.0-1.1) 0.3 x10^3/uL (0.0-1.1) Eosinophils # (Auto) 0.3 x10^3/uL (0.0-0.7) 0.3 x10^3/uL (0.0-0.7) Basophils # (Auto) 0.0 x10^3/uL (0.0-0.2) 0.0 x10^3/uL (0.0-0.2) Sodium Level 134 mmol/L (136-145) 135 mmol/L (136-145) Potassium Level 3.7 mmol/L (3.5-5.1) 3.5 mmol/L (3.5-5.1) Chloride Level 96 mmol/L (98-107) 95 mmol/L (98-107) Carbon Dioxide Level 34 mmol/L (21-32) 32 mmol/L (21-32) Anion Gap 4 (6-14) 8 (6-14) Blood Urea Nitrogen 9 mg/dL (8-26) 9 mg/dL (8-26) Creatinine 0.5 mg/dL (0.7-1.3) 0.4 mg/dL (0.7-1.3) Estimated GFR (Cockcroft-Gault) 176.0 227.7 BUN/Creatinine Ratio 18 (6-20) 23 (6-20) Glucose Level 167 mg/dL (70-99) 158 mg/dL (70-99) Calcium Level 8.0 mg/dL (8.5-10.1) 8.3 mg/dL (8.5-10.1) Total Bilirubin 0.4 mg/dL (0.2-1.0) 0.4 mg/dL (0.2-1.0) Aspartate Amino Transf (AST/SGOT) 27 U/L (15-37) 39 U/L (15-37) Alanine Aminotransferase (ALT/SGPT) 45 U/L (16-63) 61 U/L (16-63) Alkaline Phosphatase 217 U/L (46-116) 240 U/L (46-116) Total Protein 6.1 g/dL (6.4-8.2) 6.0 g/dL (6.4-8.2) Albumin 1.4 g/dL (3.4-5.0) 1.5 g/dL (3.4-5.0) Albumin/Globulin Ratio 0.3 (1.0-1.7) 0.3 (1.0-1.7) Glucose (Fingerstick) 100 mg/dL (70-99) Segmented Neutrophils % 65 % (35-66) Band Neutrophils % 8 % (0-9) Lymphocytes % 16 % (24-48) Monocytes % 5 % (0-10) Eosinophils % 3 % (0-5) Myelocytes % 3 % (0-0) Platelet Estimate Adequate (ADEQUATE) O2 Saturation 96 % (92-99) Arterial Blood pH 7.47 (7.35-7.45) Arterial Blood pCO2 at Patient Temp 47 mmHg (35-46) Arterial Blood pO2 at Patient Temp 77 mmHg (75-108) Arterial Blood HCO3 33 mmol/L (21-28) Arterial Blood Base Excess 8 mmol/L (-3-3) FiO2 45% vent Test 07/29/20 11:56 07/29/20 16:54 07/30/20 05:34 Glucose (Fingerstick) 134 mg/dL (70-99) 116 mg/dL (70-99) 144 mg/dL (70-99) Laboratory Tests Test 07/29/20 11:56 07/29/20 16:54 07/30/20 05:34 Glucose (Fingerstick) 134 mg/dL (70-99) 116 mg/dL (70-99) 144 mg/dL (70-99) Problem List Problems Medical Problems: (1) Acute respiratory failure with hypoxia Status: Acute (2) PRIYA (acute kidney injury) Status: Acute (3) Elevated troponin I level Status: Acute (4) Pulmonary emboli Status: Acute (5) Suspected COVID-19 virus infection Status: Acute Assessment/Plan will plan trach will review with Dr Mcdonough for timing Justicifation of Admission Dx: Justifications for Admission: Justification of Admission Dx: Yes BRETT MCDONOUGH MD 07/30/201920: SURGICAL PROGRESS NOTE Assessment/Plan Pt seen and examined. Agree with Ms. Santiago's note Will tentatively plan tracheostomy tomorrow. NATE SANTIAGO HISTORICAL GUIDE Jul 30, 2020 11:49 BRETT MCDONOUGH MD Jul 30, 2020 19:21
--- NOTE | 2020-07-30 14:40 | NUR ---
Have reviewed and agree with documentation completed by newsroom intern and have made changes as needed
[2020-07-30 19:33] LABS: EOS % 5 % (0-3); HEMATOCRIT 29.7 % (39.0-53.0); HEMOGLOBIN 9.9 g/dL (13.0-17.5); LYMPH % 17 % (24-48); MEAN CORPUSCULAR HEMOGLOBIN 32 pg (25-35); MEAN CORPUSCULAR HGB CONC 33 g/dL (31-37); MEAN CORPUSCULAR VOLUME 96 fL (79-100); MONO % 5 % (0-9); NEUT % 73 % (31-73); PLATELET COUNT 254 x10^3/uL (140-400); RED CELL DISTRIBUTION WIDTH 15.6 % (11.5-14.5); WHITE BLOOD COUNT 5.8 x10^3/uL (4.0-11.0)
[2020-07-30 19:34] LABS: BASO % 0 % (0-3); EOS # 0.3 x10^3/uL (0.0-0.7); MONO # 0.3 x10^3/uL (0.0-1.1); NEUT # 4.2 x10^3/uL (1.8-7.7)
[2020-07-30 20:15] LABS: CREATININE 0.5 mg/dL (0.7-1.3); POTASSIUM 3.6 mmol/L (3.5-5.1)
[2020-07-30 21:17] LABS: PHOSPHORUS 3.3 mg/dL (2.6-4.7)
[2020-07-31] VITALS (24 sets, daily range): BP systolic 94–133; BP diastolic 54–81
[2020-07-31] MEDS: PROPOFOL 100 ML IV PRN ×4 (00:06→16:17)
[2020-07-31] MEDS: fentaNYL HIGH DOSE PCA 55 ML IV PRN ×2 (00:08→14:14)
[2020-07-31] MEDS: VECURONIUM BOLUS 10 MG VIAL. IV PRN (02:30)
[2020-07-31] MEDS: MIDAZOLAM 100mg/100ml NS BAG 100 ML IV PRN ×3 (04:15→19:31)
[2020-07-31] MEDS: ASCORBIC ACID 500 MG TABLET PO SCH ×4 (05:10→23:14)
[2020-07-31] MEDS: ACETAMINOPHEN 650 MG/20.3 ML SOLUTION. PEG PRN (05:10)
[2020-07-31] MEDS: MEROPENEM 500 MG in IV NORMAL SALINE 50ML 50 ML IV SCH ×4 (05:20→23:37)
[2020-07-31] MEDS: INSULIN LISPRO 300 UNITS/3 ML VIAL. SQ SCH ×2 (06:00→17:30)
--- NOTE | 2020-07-31 07:36 | PDOC ---
Infectious Disease Note Subjective Subjective Patient Intubated Fever+ ROS ROS no n/v Vital Sign Vital Signs Vital Signs Date Time Temp Pulse Resp B/P (MAP) Pulse Ox O2 Delivery O2 Flow Rate FiO2 07/31/20 07:00 99.9 79 20 94/54 (67) 97 Ventilator 99.9 Physical Exam PHYSICAL EXAM General intubated/sedated HEENT normocephalic atraumatic, OGT/ETT present LUNGS: Coarse breath sounds anteriorly HEART: S1-S2 no murmurs ABDOMEN: Nondistended, soft bowel sounds present Fernandez in place SKIN: No generalized rash Right upper extremity PICC line removed PIV Clean Neuro intubated/sedated Labs Lab Laboratory Tests Test 07/30/20 17:14 07/30/20 19:15 07/31/20 06:06 Glucose (Fingerstick) 122 mg/dL (70-99) 124 mg/dL (70-99) White Blood Count 5.8 x10^3/uL (4.0-11.0) Red Blood Count 3.10 x10^6/uL (4.30-5.70) Hemoglobin 9.9 g/dL (13.0-17.5) Hematocrit 29.7 % (39.0-53.0) Mean Corpuscular Volume 96 fL (79-100) Mean Corpuscular Hemoglobin 32 pg (25-35) Mean Corpuscular Hemoglobin Concent 33 g/dL (31-37) Red Cell Distribution Width 15.6 % (11.5-14.5) Platelet Count 254 x10^3/uL (140-400) Neutrophils (%) (Auto) 73 % (31-73) Lymphocytes (%) (Auto) 17 % (24-48) Monocytes (%) (Auto) 5 % (0-9) Eosinophils (%) (Auto) 5 % (0-3) Basophils (%) (Auto) 0 % (0-3) Neutrophils # (Auto) 4.2 x10^3/uL (1.8-7.7) Lymphocytes # (Auto) 1.0 x10^3/uL (1.0-4.8) Monocytes # (Auto) 0.3 x10^3/uL (0.0-1.1) Eosinophils # (Auto) 0.3 x10^3/uL (0.0-0.7) Basophils # (Auto) 0.0 x10^3/uL (0.0-0.2) Sodium Level 133 mmol/L (136-145) Potassium Level 3.6 mmol/L (3.5-5.1) Chloride Level 96 mmol/L (98-107) Carbon Dioxide Level 35 mmol/L (21-32) Anion Gap 3 (6-14) Blood Urea Nitrogen 10 mg/dL (8-26) Creatinine 0.5 mg/dL (0.7-1.3) Estimated GFR (Cockcroft-Gault) 2.0 Glucose Level 116 mg/dL (70-99) Calcium Level 8.0 mg/dL (8.5-10.1) Phosphorus Level 3.3 mg/dL (2.6-4.7) Magnesium Level 2.0 mg/dL (1.8-2.4) Micro sputum enterobacter Objective Assessment Fever Leukocytosis improved COVID-19 positive. Status post remdesivir, steroids Acute hypoxic respiratory failure/ARDS /pneumonia Bilateral pulmonary emboli. Hypertension. Bacteremia 07/23 08/25 bottles staph hominis likely contaminant Repeat blood cultures staph capitis likely contaminant Enterobacter UTI and pneumonia Plan Plan of Care Cont meropenem/dc Zyvox RUE PICC line CHILANGO'donna Fernandez changed 07/26 Follow-up repeat BC Monitor labs and cultures Critically ill D/W MONALISA LUCAS MD Jul 31, 2020 07:36
--- NOTE | 2020-07-31 07:40 | PDOC ---
[employer] PROGRESS NOTE Date of Service DOS: DATE: 07/31/20 TIME: 07:33 Chief Complaint Chief Complaint IMPRESSION Acute hypoxic respiratory failure requiring VENT SUPPORT Acute hypoxic respiratory failure/ARDS /pneumonia Bilateral perihilar and basilar opacities, progressed in the left base. 07-26 COVID-19 Subsegmental bilateral PE Leukocytosis NSTEMI AKA Lactic acidosis Hyponatremia, RESOLVED hgb 6.5 07-27, transfused 1 unit prbc's hyp[okalemia, on replacement Plan: Appreciate pulmonology recommendations Continue current ventilatory support, currently on 70% and PEEP of 6, avoid increasing PEEP 2/2 risk of barotrauma Follow chest x-ray and ABG, vent management as per pulmonology Heparin has been transitioned to Xarelto Solu-Medrol 40 mg every 12 hours Appreciate ID recommendationscontinue Remdesivir and empiric antibiotics IV fluids Discussed with RN and SW. Antibiotics per ID-- off ABX, infectious disease following increasing leukocytosis has completed full course of remdesivir continue tube feeding for nutritional support 35 MIN CC TIME History of Present Illness History of Present Illness 07/31/2020 Patient still spiking fevers. Patient remains on vent, FiO2 45%, PEEP 6. Tracheostomy tentatively planned for today. 07/30/2020 Patient seen in [facility]- ICU. He is febrile on vent, FiO2 45%, PEEP 6. Will attempt to speak with family about decision on trach and PEG tube. Discussed with RN. t max 102 f fio2 50% 07/21/2020 Patient no acute events reported overnight. Patient continues to require a lot of support from vent. Discussed with RN 09/19/2019 Patient continues to be pretty much the same , fio2 is at 70%, heparin 07/19/2020 Patient hypotensive today, we will follow recommendations from critical animal daycare provider. Vent management as per crop consultant, no other complaints. 07/18/2020 Patient with no acute events reported overnight, fio2 is now at 75% PEEP of 6, Vent management as per pulmonary crop consultant slight increase in temperature noted over the lat 24 hours. Will continue to follow 07/17/2020 Patient with no acute events reported overnight, contineus to require an fio2 of 80%, continue with supportive measures. 07/16/2020 Patient with no acute events reported overnight, patient continues to require quite a bit of FiO2 at 80%. Vent management as per crop consultant, will place a call to family members after rounding. Discussed with RN 07/15/2020 Patient seen and examined bedside in the ICU. FiO2 80% PEEP of 6.pH 7.56, PCO2 32, PO2 56, HCO3 28. Will adjust respiratory rate accordingly to correct pH.> 50% time spent in patient chart, labs, and imaging review and in discussion with RN and JAVIER 07/14/2020 Patient seen and examined bedside. FiO2 65% and PEEP of 6 on vent. ABG: pH 7.26, PCO2 77, PO2 114, HCO3 34. We will adjust respiratory rate or tidal volume to titrate pH.> 50% time spent in patient chart, labs, and imaging review and in discussion with RN and JAVIER 07/13/2020 No acute events overnight. Patient examined bedside sedated and intubated. FiO2 70% PEEP of 6. Improved ABGs.> 50% time spent in patient chart, labs, and imaging review and in discussion with RN and JAVIER 07/12/2020 Patient seen and examined in the ICU. Sedated and intubated. FiO2 65, PEEP of 8 with improved oxygenation. pH 7.4, PCO2 48, PO2 94, HCO3 30. +500 cc fluid balance.> 50% time spent in patient chart, labs, and imaging review and in discussion with RN and JAVIER 07/11/2020 Patient seen and examined bedside in the ICU. Patient continues to be intubated and sedated. FiO2 75%, PEEP of 10. pH 7.40, PCO2 44, PO2 is 135, HCO3 26. Can likely decrease FiO2 due to improved oxygenation. +173 cc in the past 24 hours 07/10/2020 Patient seen and examined bedside in ICU. Patient is intubated and sedated. FiO2 90%, PEEP of 10, respiratory rate of 30. ABG: pH is 7.41, PCO2 42, PO2 113, HCO3 26. 07/09/2020 Patient seen and examined in the ICU. Intubated and sedated. Vent settings Fi O2 90%, PEEP of 10, respiratory rate of 30. 07/05: Patient seen in ICU, still intubated and sedated. COVID-19 pending. Patient remains on heparin infusion. Discussed with RN, will try to have central line placed per anesthesia. 07/06: Patient seen in ICU. Still FiO2 100% on vent and sedated. COVID-19 positive. Continue heparin infusion, Zosyn, steroids. 07/07: Covid positive patient seen in ICU. On vent with FiO2 100%, PEEP 10. Continue remdesivir, steroids, Zosyn. Continue to monitor 07/08: Patient seen in Covid ICU. Still on vent with FiO2 100%, PEEP 10. Afebrile. No acute events overnight. Continue steroids, antibiotics, and remdesivir. Patient is 49-year-old male with past medical history of hypertension, who presents to the ED with complaints of worsening shortness of breath over the past 5 days. Associated sore throat, fatigue, and generalized weakness. Patient was reportedly tested for COVID-19 last Thursday, but he had negative test results. His symptoms acutely worsened yesterday. Upon arrival to the ER his oxygen saturation was 60% on room air. He was placed on BiPAP and admitted to the ICU. Patient was subsequently intubated due to worsening respiratory failure. Vitals/I&O Vitals/I&O: Vital Signs Date Time Temp Pulse Resp B/P (MAP) Pulse Ox O2 Delivery O2 Flow Rate FiO2 07/31/20 07:00 99.9 79 20 94/54 (67) 97 Ventilator 99.9 I & O 07/30/20 07/30/20 07/31/20 15:00 23:00 07:00 Intake Total 200 ml 700 ml 1361 ml Output Total 440 ml 360 ml 390 ml Balance -240 ml 340 ml 971 ml Physical Exam Physical Exam: General intubated/sedated HEENT normocephalic atraumatic, OGT/ETT present LUNGS: Coarse breath sounds anteriorly HEART: S1-S2 no murmurs ABDOMEN: Nondistended, soft bowel sounds present Fernandez in place SKIN: No generalized rash Right upper extremity PICC line removed PIV Clean Neuro intubated/sedated General: No acute distress Heart: Regular rate (SR/ST) Lungs: Other (orally intubated, clear ) Abdomen: Soft Extremities: No clubbing, No cyanosis Skin: No rashes, No breakdown Labs Labs: Laboratory Tests Test 07/30/20 17:14 07/30/20 19:15 07/31/20 06:06 Glucose (Fingerstick) 122 mg/dL (70-99) 124 mg/dL (70-99) White Blood Count 5.8 x10^3/uL (4.0-11.0) Red Blood Count 3.10 x10^6/uL (4.30-5.70) Hemoglobin 9.9 g/dL (13.0-17.5) Hematocrit 29.7 % (39.0-53.0) Mean Corpuscular Volume 96 fL (79-100) Mean Corpuscular Hemoglobin 32 pg (25-35) Mean Corpuscular Hemoglobin Concent 33 g/dL (31-37) Red Cell Distribution Width 15.6 % (11.5-14.5) Platelet Count 254 x10^3/uL (140-400) Neutrophils (%) (Auto) 73 % (31-73) Lymphocytes (%) (Auto) 17 % (24-48) Monocytes (%) (Auto) 5 % (0-9) Eosinophils (%) (Auto) 5 % (0-3) Basophils (%) (Auto) 0 % (0-3) Neutrophils # (Auto) 4.2 x10^3/uL (1.8-7.7) Lymphocytes # (Auto) 1.0 x10^3/uL (1.0-4.8) Monocytes # (Auto) 0.3 x10^3/uL (0.0-1.1) Eosinophils # (Auto) 0.3 x10^3/uL (0.0-0.7) Basophils # (Auto) 0.0 x10^3/uL (0.0-0.2) Sodium Level 133 mmol/L (136-145) Potassium Level 3.6 mmol/L (3.5-5.1) Chloride Level 96 mmol/L (98-107) Carbon Dioxide Level 35 mmol/L (21-32) Anion Gap 3 (6-14) Blood Urea Nitrogen 10 mg/dL (8-26) Creatinine 0.5 mg/dL (0.7-1.3) Estimated GFR (Cockcroft-Gault) 2.0 Glucose Level 116 mg/dL (70-99) Calcium Level 8.0 mg/dL (8.5-10.1) Phosphorus Level 3.3 mg/dL (2.6-4.7) Magnesium Level 2.0 mg/dL (1.8-2.4) Review of Systems Review of Systems: Unable to obtain due to clinical condition Assessment and Plan Assessmemt and Plan Problems Medical Problems: (1) Acute respiratory failure with hypoxia Status: Acute (2) PRIYA (acute kidney injury) Status: Acute (3) Elevated troponin I level Status: Acute (4) Pulmonary emboli Status: Acute (5) Suspected COVID-19 virus infection Status: Acute Comment Review of Relevant I have reviewed the following items trino (where applicable) has been applied. Justifications for Admission Other Justification SHERLY DUKES MD Jul 31, 2020 07:40
[2020-07-31 07:47] LABS: CREATININE 0.5 mg/dL (0.7-1.3); POTASSIUM 3.6 mmol/L (3.5-5.1)
[2020-07-31 07:54] LABS: BASO % 0 % (0-3); EOS # 0.3 x10^3/uL (0.0-0.7); EOS % 4 % (0-3); HEMATOCRIT 28.9 % (39.0-53.0); HEMOGLOBIN 9.6 g/dL (13.0-17.5); LYMPH # 0.8 x10^3/uL (1.0-4.8); LYMPH % 11 % (24-48); MEAN CORPUSCULAR HEMOGLOBIN 32 pg (25-35); MEAN CORPUSCULAR HGB CONC 33 g/dL (31-37); MEAN CORPUSCULAR VOLUME 96 fL (79-100); MONO # 0.4 x10^3/uL (0.0-1.1); MONO % 5 % (0-9); NEUT # 5.7 x10^3/uL (1.8-7.7); NEUT % 79 % (31-73); PLATELET COUNT 269 x10^3/uL (140-400); RED BLOOD COUNT 3.01 x10^6/uL (4.30-5.70); RED CELL DISTRIBUTION WIDTH 15.6 % (11.5-14.5); WHITE BLOOD COUNT 7.3 x10^3/uL (4.0-11.0)
[2020-07-31] MEDS: ZINC SULFATE 220 MG CAPSULE. PO SCH (07:54)
[2020-07-31] MEDS: CHOLECALCIFEROL (VITAMIN D3) 5,000 UNIT CAPSULE PO SCH (07:54)
[2020-07-31 09:08] LABS: BASE EXCESS ABG 9 mmol/L (-3-3); HCO3 ABG 34 mmol/L (21-28); PCO2 ABG 47 mmHg (35-46); PO2 ABG 89 mmHg (75-108); SAT O2 ABG 97 % (92-99)
[2020-07-31 09:40] LABS: FIO2 ABG 45
--- NOTE | 2020-07-31 10:53 | PDOC ---
PULMONARY PROGRESS NOTES DATE: 07/31/20 TIME: 10:51 Subjective PT. remains on vent support , 45% FiO2 and a PEEP of 6 Patient is planned for tracheostomy today Fever overnight No other concerns from nursing Vitals Vital Signs Date Time Temp Pulse Resp B/P (MAP) Pulse Ox O2 Delivery O2 Flow Rate FiO2 07/31/20 10:21 97 Ventilator 07/31/20 10:00 100.4 85 20 102/62 (75) 100.4 Comments Patient seen during - pandemic visual exam performed Intubated/sedated has accessory muscle use tachypneac RRR No obvious rash or edema Lungs: Other (orally intubated, clear ) Labs Laboratory Tests Test 07/29/20 11:56 07/29/20 16:54 07/30/20 05:34 07/30/20 17:14 Glucose (Fingerstick) 134 mg/dL (70-99) 116 mg/dL (70-99) 144 mg/dL (70-99) 122 mg/dL (70-99) Test 07/30/20 19:15 07/31/20 06:06 07/31/20 06:28 07/31/20 08:40 White Blood Count 5.8 x10^3/uL (4.0-11.0) 7.3 x10^3/uL (4.0-11.0) Red Blood Count 3.10 x10^6/uL (4.30-5.70) 3.01 x10^6/uL (4.30-5.70) Hemoglobin 9.9 g/dL (13.0-17.5) 9.6 g/dL (13.0-17.5) Hematocrit 29.7 % (39.0-53.0) 28.9 % (39.0-53.0) Mean Corpuscular Volume 96 fL (79-100) 96 fL (79-100) Mean Corpuscular Hemoglobin 32 pg (25-35) 32 pg (25-35) Mean Corpuscular Hemoglobin Concent 33 g/dL (31-37) 33 g/dL (31-37) Red Cell Distribution Width 15.6 % (11.5-14.5) 15.6 % (11.5-14.5) Platelet Count 254 x10^3/uL (140-400) 269 x10^3/uL (140-400) Neutrophils (%) (Auto) 73 % (31-73) 79 % (31-73) Lymphocytes (%) (Auto) 17 % (24-48) 11 % (24-48) Monocytes (%) (Auto) 5 % (0-9) 5 % (0-9) Eosinophils (%) (Auto) 5 % (0-3) 4 % (0-3) Basophils (%) (Auto) 0 % (0-3) 0 % (0-3) Neutrophils # (Auto) 4.2 x10^3/uL (1.8-7.7) 5.7 x10^3/uL (1.8-7.7) Lymphocytes # (Auto) 1.0 x10^3/uL (1.0-4.8) 0.8 x10^3/uL (1.0-4.8) Monocytes # (Auto) 0.3 x10^3/uL (0.0-1.1) 0.4 x10^3/uL (0.0-1.1) Eosinophils # (Auto) 0.3 x10^3/uL (0.0-0.7) 0.3 x10^3/uL (0.0-0.7) Basophils # (Auto) 0.0 x10^3/uL (0.0-0.2) 0.0 x10^3/uL (0.0-0.2) Sodium Level 133 mmol/L (136-145) 132 mmol/L (136-145) Potassium Level 3.6 mmol/L (3.5-5.1) 3.6 mmol/L (3.5-5.1) Chloride Level 96 mmol/L (98-107) 95 mmol/L (98-107) Carbon Dioxide Level 35 mmol/L (21-32) 36 mmol/L (21-32) Anion Gap 3 (6-14) 1 (6-14) Blood Urea Nitrogen 10 mg/dL (8-26) 9 mg/dL (8-26) Creatinine 0.5 mg/dL (0.7-1.3) 0.5 mg/dL (0.7-1.3) Estimated GFR (Cockcroft-Gault) 2.0 176.0 Glucose Level 116 mg/dL (70-99) 112 mg/dL (70-99) Calcium Level 8.0 mg/dL (8.5-10.1) 8.0 mg/dL (8.5-10.1) Phosphorus Level 3.3 mg/dL (2.6-4.7) Magnesium Level 2.0 mg/dL (1.8-2.4) Glucose (Fingerstick) 124 mg/dL (70-99) O2 Saturation 97 % (92-99) Arterial Blood pH 7.48 (7.35-7.45) Arterial Blood pCO2 at Patient Temp 47 mmHg (35-46) Arterial Blood pO2 at Patient Temp 89 mmHg (75-108) Arterial Blood HCO3 34 mmol/L (21-28) Arterial Blood Base Excess 9 mmol/L (-3-3) FiO2 45 SARS-CoV-2 Antigen (Rapid) Negative (NEGATIVE) Laboratory Tests Test 07/30/20 17:14 07/30/20 19:15 07/31/20 06:06 07/31/20 06:28 Glucose (Fingerstick) 122 mg/dL (70-99) 124 mg/dL (70-99) White Blood Count 5.8 x10^3/uL (4.0-11.0) 7.3 x10^3/uL (4.0-11.0) Red Blood Count 3.10 x10^6/uL (4.30-5.70) 3.01 x10^6/uL (4.30-5.70) Hemoglobin 9.9 g/dL (13.0-17.5) 9.6 g/dL (13.0-17.5) Hematocrit 29.7 % (39.0-53.0) 28.9 % (39.0-53.0) Mean Corpuscular Volume 96 fL (79-100) 96 fL (79-100) Mean Corpuscular Hemoglobin 32 pg (25-35) 32 pg (25-35) Mean Corpuscular Hemoglobin Concent 33 g/dL (31-37) 33 g/dL (31-37) Red Cell Distribution Width 15.6 % (11.5-14.5) 15.6 % (11.5-14.5) Platelet Count 254 x10^3/uL (140-400) 269 x10^3/uL (140-400) Neutrophils (%) (Auto) 73 % (31-73) 79 % (31-73) Lymphocytes (%) (Auto) 17 % (24-48) 11 % (24-48) Monocytes (%) (Auto) 5 % (0-9) 5 % (0-9) Eosinophils (%) (Auto) 5 % (0-3) 4 % (0-3) Basophils (%) (Auto) 0 % (0-3) 0 % (0-3) Neutrophils # (Auto) 4.2 x10^3/uL (1.8-7.7) 5.7 x10^3/uL (1.8-7.7) Lymphocytes # (Auto) 1.0 x10^3/uL (1.0-4.8) 0.8 x10^3/uL (1.0-4.8) Monocytes # (Auto) 0.3 x10^3/uL (0.0-1.1) 0.4 x10^3/uL (0.0-1.1) Eosinophils # (Auto) 0.3 x10^3/uL (0.0-0.7) 0.3 x10^3/uL (0.0-0.7) Basophils # (Auto) 0.0 x10^3/uL (0.0-0.2) 0.0 x10^3/uL (0.0-0.2) Sodium Level 133 mmol/L (136-145) 132 mmol/L (136-145) Potassium Level 3.6 mmol/L (3.5-5.1) 3.6 mmol/L (3.5-5.1) Chloride Level 96 mmol/L (98-107) 95 mmol/L (98-107) Carbon Dioxide Level 35 mmol/L (21-32) 36 mmol/L (21-32) Anion Gap 3 (6-14) 1 (6-14) Blood Urea Nitrogen 10 mg/dL (8-26) 9 mg/dL (8-26) Creatinine 0.5 mg/dL (0.7-1.3) 0.5 mg/dL (0.7-1.3) Estimated GFR (Cockcroft-Gault) 2.0 176.0 Glucose Level 116 mg/dL (70-99) 112 mg/dL (70-99) Calcium Level 8.0 mg/dL (8.5-10.1) 8.0 mg/dL (8.5-10.1) Phosphorus Level 3.3 mg/dL (2.6-4.7) Magnesium Level 2.0 mg/dL (1.8-2.4) Test 07/31/20 08:40 O2 Saturation 97 % (92-99) Arterial Blood pH 7.48 (7.35-7.45) Arterial Blood pCO2 at Patient Temp 47 mmHg (35-46) Arterial Blood pO2 at Patient Temp 89 mmHg (75-108) Arterial Blood HCO3 34 mmol/L (21-28) Arterial Blood Base Excess 9 mmol/L (-3-3) FiO2 45 SARS-CoV-2 Antigen (Rapid) Negative (NEGATIVE) Comments CXR reviewed 1. Stable life support devices. 2. Bilateral perihilar and basilar opacities, progressed in the left base Impression . IMPRESSION: 1. Acute hypoxemic respiratory failure./ALI/ARDS due to COVID -19 2. Acute pulmonary embolism with cor pulmonale. 3. COVID-[address] chest revealing ground glass opacities. 5. Hypertension. 6. History of bronchitis. 7. Elevated troponin. 8. Acute kidney injury. 9. Leukocytosis. 10. Covid-19 positive 11. Possible loculated hydroPTX left base Plan . Continue current ventilatory support, FiO2 45% and a PEEP of 6, does not tolerate off sedation. Plan for tracheostomy today off eliquis, consider IV heparin when ready to restart A/C reviewed chest x-ray and ABG, no changes at this time Follow cardiology recommendations Antibiotics per ID--currently on meropenem, blood cultures showing staph capitis, respiratory culture showing gram-negative rods Has completed full course of remdesivir Continue tube feeding for nutritional support DVT/GI prophylaxis,Protonix Discussed with RN and RT Pt. is FULL CODE critically ill cc time 30 min no overlap NERY SALINAS MD Jul 31, 2020 10:53
--- NOTE | 2020-07-31 11:57 | NUR ---
SS following up with discharge planning. SS reviewed pt chart and discussed with pt RN. Pt remains on the vent at this time at 45%. Pt had negative COVID19 test result on rapid test. Pt has history of COVID19. Self pay. Pt on IV Meropenem. Pt getting trach placement today. SS discussed with Med [facility]. SS was notified that pt's spouse lives in [place] and pt has no legal DPOA so Medicaid application is unable to be completed at this time. SS will continue to follow for discharge planning.
[2020-07-31] MEDS ORDERED: ROCURONIUM 100 MG/10 ML VIAL. ONE (12:35)
[2020-07-31] MEDS ORDERED: SURGICEL FIBRILLAR 1X2 EACH. ONE (13:08)
[2020-07-31] MEDS ORDERED: BUPIVACAINE-EPI 0.5%-1:200000 MPF 30 ML VIAL. INJ ONE (13:45)
--- NOTE | 2020-07-31 19:27 | PDOC ---
SURGICAL PROGRESS NOTE DATE: 07/31/20 TIME: 19:26 Subjective Secondary to lack of OR availability, tracheostomy not able to be done today. Will attempt tomorrow. Vital Signs Vital Signs Date Time Temp Pulse Resp B/P (MAP) Pulse Ox O2 Delivery O2 Flow Rate FiO2 07/31/20 19:00 100.2 78 18 101/62 (75) 97 Ventilator 100.2 I&O Intake and Output 07/31/20 07:00 Intake Total 2261 ml Output Total 1190 ml Balance 1071 ml IV Total 721 ml Tube Feeding 1240 ml Other 300 ml Output Urine Total 1190 ml Gastric Drainage Total 0 ml # Bowel Movements 1 Labs Laboratory Tests Test 07/30/20 05:34 07/30/20 17:14 07/30/20 19:15 07/31/20 06:06 Glucose (Fingerstick) 144 mg/dL (70-99) 122 mg/dL (70-99) 124 mg/dL (70-99) White Blood Count 5.8 x10^3/uL (4.0-11.0) Red Blood Count 3.10 x10^6/uL (4.30-5.70) Hemoglobin 9.9 g/dL (13.0-17.5) Hematocrit 29.7 % (39.0-53.0) Mean Corpuscular Volume 96 fL (79-100) Mean Corpuscular Hemoglobin 32 pg (25-35) Mean Corpuscular Hemoglobin Concent 33 g/dL (31-37) Red Cell Distribution Width 15.6 % (11.5-14.5) Platelet Count 254 x10^3/uL (140-400) Neutrophils (%) (Auto) 73 % (31-73) Lymphocytes (%) (Auto) 17 % (24-48) Monocytes (%) (Auto) 5 % (0-9) Eosinophils (%) (Auto) 5 % (0-3) Basophils (%) (Auto) 0 % (0-3) Neutrophils # (Auto) 4.2 x10^3/uL (1.8-7.7) Lymphocytes # (Auto) 1.0 x10^3/uL (1.0-4.8) Monocytes # (Auto) 0.3 x10^3/uL (0.0-1.1) Eosinophils # (Auto) 0.3 x10^3/uL (0.0-0.7) Basophils # (Auto) 0.0 x10^3/uL (0.0-0.2) Sodium Level 133 mmol/L (136-145) Potassium Level 3.6 mmol/L (3.5-5.1) Chloride Level 96 mmol/L (98-107) Carbon Dioxide Level 35 mmol/L (21-32) Anion Gap 3 (6-14) Blood Urea Nitrogen 10 mg/dL (8-26) Creatinine 0.5 mg/dL (0.7-1.3) Estimated GFR (Cockcroft-Gault) 2.0 Glucose Level 116 mg/dL (70-99) Calcium Level 8.0 mg/dL (8.5-10.1) Phosphorus Level 3.3 mg/dL (2.6-4.7) Magnesium Level 2.0 mg/dL (1.8-2.4) Test 07/31/20 06:28 07/31/20 08:40 White Blood Count 7.3 x10^3/uL (4.0-11.0) Red Blood Count 3.01 x10^6/uL (4.30-5.70) Hemoglobin 9.6 g/dL (13.0-17.5) Hematocrit 28.9 % (39.0-53.0) Mean Corpuscular Volume 96 fL (79-100) Mean Corpuscular Hemoglobin 32 pg (25-35) Mean Corpuscular Hemoglobin Concent 33 g/dL (31-37) Red Cell Distribution Width 15.6 % (11.5-14.5) Platelet Count 269 x10^3/uL (140-400) Neutrophils (%) (Auto) 79 % (31-73) Lymphocytes (%) (Auto) 11 % (24-48) Monocytes (%) (Auto) 5 % (0-9) Eosinophils (%) (Auto) 4 % (0-3) Basophils (%) (Auto) 0 % (0-3) Neutrophils # (Auto) 5.7 x10^3/uL (1.8-7.7) Lymphocytes # (Auto) 0.8 x10^3/uL (1.0-4.8) Monocytes # (Auto) 0.4 x10^3/uL (0.0-1.1) Eosinophils # (Auto) 0.3 x10^3/uL (0.0-0.7) Basophils # (Auto) 0.0 x10^3/uL (0.0-0.2) Sodium Level 132 mmol/L (136-145) Potassium Level 3.6 mmol/L (3.5-5.1) Chloride Level 95 mmol/L (98-107) Carbon Dioxide Level 36 mmol/L (21-32) Anion Gap 1 (6-14) Blood Urea Nitrogen 9 mg/dL (8-26) Creatinine 0.5 mg/dL (0.7-1.3) Estimated GFR (Cockcroft-Gault) 176.0 Glucose Level 112 mg/dL (70-99) Calcium Level 8.0 mg/dL (8.5-10.1) O2 Saturation 97 % (92-99) Arterial Blood pH 7.48 (7.35-7.45) Arterial Blood pCO2 at Patient Temp 47 mmHg (35-46) Arterial Blood pO2 at Patient Temp 89 mmHg (75-108) Arterial Blood HCO3 34 mmol/L (21-28) Arterial Blood Base Excess 9 mmol/L (-3-3) FiO2 45 SARS-CoV-2 Antigen (Rapid) Negative (NEGATIVE) Laboratory Tests Test 07/31/20 06:06 07/31/20 06:28 07/31/20 08:40 Glucose (Fingerstick) 124 mg/dL (70-99) White Blood Count 7.3 x10^3/uL (4.0-11.0) Red Blood Count 3.01 x10^6/uL (4.30-5.70) Hemoglobin 9.6 g/dL (13.0-17.5) Hematocrit 28.9 % (39.0-53.0) Mean Corpuscular Volume 96 fL (79-100) Mean Corpuscular Hemoglobin 32 pg (25-35) Mean Corpuscular Hemoglobin Concent 33 g/dL (31-37) Red Cell Distribution Width 15.6 % (11.5-14.5) Platelet Count 269 x10^3/uL (140-400) Neutrophils (%) (Auto) 79 % (31-73) Lymphocytes (%) (Auto) 11 % (24-48) Monocytes (%) (Auto) 5 % (0-9) Eosinophils (%) (Auto) 4 % (0-3) Basophils (%) (Auto) 0 % (0-3) Neutrophils # (Auto) 5.7 x10^3/uL (1.8-7.7) Lymphocytes # (Auto) 0.8 x10^3/uL (1.0-4.8) Monocytes # (Auto) 0.4 x10^3/uL (0.0-1.1) Eosinophils # (Auto) 0.3 x10^3/uL (0.0-0.7) Basophils # (Auto) 0.0 x10^3/uL (0.0-0.2) Sodium Level 132 mmol/L (136-145) Potassium Level 3.6 mmol/L (3.5-5.1) Chloride Level 95 mmol/L (98-107) Carbon Dioxide Level 36 mmol/L (21-32) Anion Gap 1 (6-14) Blood Urea Nitrogen 9 mg/dL (8-26) Creatinine 0.5 mg/dL (0.7-1.3) Estimated GFR (Cockcroft-Gault) 176.0 Glucose Level 112 mg/dL (70-99) Calcium Level 8.0 mg/dL (8.5-10.1) O2 Saturation 97 % (92-99) Arterial Blood pH 7.48 (7.35-7.45) Arterial Blood pCO2 at Patient Temp 47 mmHg (35-46) Arterial Blood pO2 at Patient Temp 89 mmHg (75-108) Arterial Blood HCO3 34 mmol/L (21-28) Arterial Blood Base Excess 9 mmol/L (-3-3) FiO2 45 SARS-CoV-2 Antigen (Rapid) Negative (NEGATIVE) Problem List Problems Medical Problems: (1) Acute respiratory failure with hypoxia Status: Acute (2) PRIYA (acute kidney injury) Status: Acute (3) Elevated troponin I level Status: Acute (4) Pulmonary emboli Status: Acute (5) Suspected COVID-19 virus infection Status: Acute Justicifation of Admission Dx: Justifications for Admission: Justification of Admission Dx: Yes BRETT MCGEE MD Jul 31, 2020 19:27
[2020-08-01] VITALS (24 sets, daily range): BP systolic 102–144; BP diastolic 55–84
[2020-08-01] MEDS: PROPOFOL 100 ML IV PRN ×4 (00:19→17:42)
[2020-08-01] MEDS: MEROPENEM 500 MG in IV NORMAL SALINE 50ML 50 ML IV SCH ×3 (05:44→17:41)
[2020-08-01] MEDS: ASCORBIC ACID 500 MG TABLET PO SCH ×3 (05:44→17:16)
[2020-08-01] MEDS: INSULIN LISPRO 300 UNITS/3 ML VIAL. SQ SCH ×2 (06:00→17:16)
[2020-08-01] MEDS: MIDAZOLAM 100mg/100ml NS BAG 100 ML IV PRN ×2 (06:24→16:34)
[2020-08-01] MEDS: fentaNYL HIGH DOSE PCA 55 ML IV PRN ×2 (06:26→23:16)
[2020-08-01] MEDS ORDERED: MORPHINE SULFATE 2 MG/ML VIAL. IVP PRN (07:00)
[2020-08-01] MEDS ORDERED: ONDANSETRON PF 4 MG/2 ML VIAL. IVP PRN (07:00)
[2020-08-01] MEDS ORDERED: fentaNYL PF VIAL 100 MCG/2 ML VIAL IVP PRN ×2 (07:00)
[2020-08-01] MEDS ORDERED: IV RINGERS,LACTATED 1000ML 1,000 ML IV SCH (07:00)
[2020-08-01] MEDS ORDERED: LIDOCAINE 1% PF 2 ML VIAL. ID PRN (07:00)
[2020-08-01] MEDS ORDERED: HYDROmorphone 2 MG/ML VIAL IVP PRN (07:00)
[2020-08-01] MEDS ORDERED: PROCHLORPERAZINE 10 MG/2 ML VIAL. IVP PRN (07:00)
[2020-08-01 07:44] LABS: BASO % 0 % (0-3); EOS # 0.3 x10^3/uL (0.0-0.7); EOS % 4 % (0-3); HEMATOCRIT 30.8 % (39.0-53.0); HEMOGLOBIN 10.4 g/dL (13.0-17.5); LYMPH % 12 % (24-48); MEAN CORPUSCULAR HEMOGLOBIN 32 pg (25-35); MEAN CORPUSCULAR HGB CONC 34 g/dL (31-37); MEAN CORPUSCULAR VOLUME 96 fL (79-100); MONO # 0.4 x10^3/uL (0.0-1.1); MONO % 5 % (0-9); NEUT # 6.5 x10^3/uL (1.8-7.7); NEUT % 79 % (31-73); PLATELET COUNT 319 x10^3/uL (140-400); RED BLOOD COUNT 3.23 x10^6/uL (4.30-5.70); RED CELL DISTRIBUTION WIDTH 15.7 % (11.5-14.5); WHITE BLOOD COUNT 8.3 x10^3/uL (4.0-11.0)
[2020-08-01 08:01] LABS: CALCIUM 8.3 mg/dL (8.5-10.1); CREATININE 0.4 mg/dL (0.7-1.3); GFR 227.7
--- NOTE | 2020-08-01 08:11 | PDOC ---
Infectious Disease Note Subjective Subjective Patient Intubated Fever+ ROS ROS no n/v/d/ Vital Sign Vital Signs Vital Signs Date Time Temp Pulse Resp B/P (MAP) Pulse Ox O2 Delivery O2 Flow Rate FiO2 08/01/20 08:00 101.3 93 18 118/69 (85) 99 Ventilator 101.3 Physical Exam PHYSICAL EXAM General intubated/sedated HEENT normocephalic atraumatic, OGT/ETT present LUNGS: Coarse breath sounds anteriorly HEART: S1-S2 no murmurs ABDOMEN: Nondistended, soft bowel sounds present Fernandez in place SKIN: No generalized rash Right upper extremity PICC line removed PIV Clean Neuro intubated/sedated Labs Lab Laboratory Tests Test 07/31/20 08:40 08/01/20 05:52 08/01/20 06:09 O2 Saturation 97 % (92-99) Arterial Blood pH 7.48 (7.35-7.45) Arterial Blood pCO2 at Patient Temp 47 mmHg (35-46) Arterial Blood pO2 at Patient Temp 89 mmHg (75-108) Arterial Blood HCO3 34 mmol/L (21-28) Arterial Blood Base Excess 9 mmol/L (-3-3) FiO2 45 SARS-CoV-2 Antigen (Rapid) Negative (NEGATIVE) Glucose (Fingerstick) 79 mg/dL (70-99) White Blood Count 8.3 x10^3/uL (4.0-11.0) Red Blood Count 3.23 x10^6/uL (4.30-5.70) Hemoglobin 10.4 g/dL (13.0-17.5) Hematocrit 30.8 % (39.0-53.0) Mean Corpuscular Volume 96 fL (79-100) Mean Corpuscular Hemoglobin 32 pg (25-35) Mean Corpuscular Hemoglobin Concent 34 g/dL (31-37) Red Cell Distribution Width 15.7 % (11.5-14.5) Platelet Count 319 x10^3/uL (140-400) Neutrophils (%) (Auto) 79 % (31-73) Lymphocytes (%) (Auto) 12 % (24-48) Monocytes (%) (Auto) 5 % (0-9) Eosinophils (%) (Auto) 4 % (0-3) Basophils (%) (Auto) 0 % (0-3) Neutrophils # (Auto) 6.5 x10^3/uL (1.8-7.7) Lymphocytes # (Auto) 1.0 x10^3/uL (1.0-4.8) Monocytes # (Auto) 0.4 x10^3/uL (0.0-1.1) Eosinophils # (Auto) 0.3 x10^3/uL (0.0-0.7) Basophils # (Auto) 0.0 x10^3/uL (0.0-0.2) Sodium Level 134 mmol/L (136-145) Potassium Level 4.0 mmol/L (3.5-5.1) Chloride Level 96 mmol/L (98-107) Carbon Dioxide Level 33 mmol/L (21-32) Anion Gap 5 (6-14) Blood Urea Nitrogen 9 mg/dL (8-26) Creatinine 0.4 mg/dL (0.7-1.3) Estimated GFR (Cockcroft-Gault) 227.7 Glucose Level 87 mg/dL (70-99) Calcium Level 8.3 mg/dL (8.5-10.1) Micro sputum enterobacter Objective Assessment Fever Leukocytosis improved COVID-19 positive. Status post remdesivir, steroids Acute hypoxic respiratory failure/ARDS /pneumonia Bilateral pulmonary emboli. Hypertension. Bacteremia 07/23 1/2 bottles staph hominis likely contaminant Repeat blood cultures staph capitis likely contaminant Enterobacter UTI and pneumonia Plan Plan of Care Cont meropenem/add dapto RUE PICC line DC'd Fernandez changed 07/26 Follow-up repeat BC Monitor labs and cultures Critically ill D/W MONALISA LUCAS MD Aug 01, 2020 08:10
[2020-08-01] MEDS: PANTOPRAZOLE IV PUSH 40 MG VIAL. IVP SCH (08:20)
[2020-08-01] MEDS: CHOLECALCIFEROL (VITAMIN D3) 5,000 UNIT CAPSULE PO SCH (09:00)
[2020-08-01] MEDS: ZINC SULFATE 220 MG CAPSULE. PO SCH (09:00)
[2020-08-01] MEDS: DAPTOmycin (GENERIC) IVPB 470 MG in IV NORMAL SALINE 50ML 50 ML IV SCH (09:13)
--- NOTE | 2020-08-01 11:23 | PDOC ---
PULMONARY PROGRESS NOTES DATE: 08/01/20 TIME: 11:21 Subjective PT. remains on vent support , 45% FiO2 and a PEEP of 6 Patient is planned for tracheostomy today Fever overnight No other concerns from nursing Vitals Vital Signs Date Time Temp Pulse Resp B/P (MAP) Pulse Ox O2 Delivery O2 Flow Rate FiO2 08/01/20 10:00 101.1 92 18 118/59 (78) 96 Ventilator 101.1 Comments Patient seen during pandemic visual exam performed Intubated/sedated has accessory muscle use tachypneac RRR No obvious rash or edema Lungs: Other (orally intubated, clear ) Labs Laboratory Tests Test 07/30/20 17:14 07/30/20 19:15 07/31/20 06:06 07/31/20 06:28 Glucose (Fingerstick) 122 mg/dL (70-99) 124 mg/dL (70-99) White Blood Count 5.8 x10^3/uL (4.0-11.0) 7.3 x10^3/uL (4.0-11.0) Red Blood Count 3.10 x10^6/uL (4.30-5.70) 3.01 x10^6/uL (4.30-5.70) Hemoglobin 9.9 g/dL (13.0-17.5) 9.6 g/dL (13.0-17.5) Hematocrit 29.7 % (39.0-53.0) 28.9 % (39.0-53.0) Mean Corpuscular Volume 96 fL (79-100) 96 fL (79-100) Mean Corpuscular Hemoglobin 32 pg (25-35) 32 pg (25-35) Mean Corpuscular Hemoglobin Concent 33 g/dL (31-37) 33 g/dL (31-37) Red Cell Distribution Width 15.6 % (11.5-14.5) 15.6 % (11.5-14.5) Platelet Count 254 x10^3/uL (140-400) 269 x10^3/uL (140-400) Neutrophils (%) (Auto) 73 % (31-73) 79 % (31-73) Lymphocytes (%) (Auto) 17 % (24-48) 11 % (24-48) Monocytes (%) (Auto) 5 % (0-9) 5 % (0-9) Eosinophils (%) (Auto) 5 % (0-3) 4 % (0-3) Basophils (%) (Auto) 0 % (0-3) 0 % (0-3) Neutrophils # (Auto) 4.2 x10^3/uL (1.8-7.7) 5.7 x10^3/uL (1.8-7.7) Lymphocytes # (Auto) 1.0 x10^3/uL (1.0-4.8) 0.8 x10^3/uL (1.0-4.8) Monocytes # (Auto) 0.3 x10^3/uL (0.0-1.1) 0.4 x10^3/uL (0.0-1.1) Eosinophils # (Auto) 0.3 x10^3/uL (0.0-0.7) 0.3 x10^3/uL (0.0-0.7) Basophils # (Auto) 0.0 x10^3/uL (0.0-0.2) 0.0 x10^3/uL (0.0-0.2) Sodium Level 133 mmol/L (136-145) 132 mmol/L (136-145) Potassium Level 3.6 mmol/L (3.5-5.1) 3.6 mmol/L (3.5-5.1) Chloride Level 96 mmol/L (98-107) 95 mmol/L (98-107) Carbon Dioxide Level 35 mmol/L (21-32) 36 mmol/L (21-32) Anion Gap 3 (6-14) 1 (6-14) Blood Urea Nitrogen 10 mg/dL (8-26) 9 mg/dL (8-26) Creatinine 0.5 mg/dL (0.7-1.3) 0.5 mg/dL (0.7-1.3) Estimated GFR (Cockcroft-Gault) 2.0 176.0 Glucose Level 116 mg/dL (70-99) 112 mg/dL (70-99) Calcium Level 8.0 mg/dL (8.5-10.1) 8.0 mg/dL (8.5-10.1) Phosphorus Level 3.3 mg/dL (2.6-4.7) Magnesium Level 2.0 mg/dL (1.8-2.4) Test 07/31/20 08:40 08/01/20 05:52 08/01/20 06:09 O2 Saturation 97 % (92-99) Arterial Blood pH 7.48 (7.35-7.45) Arterial Blood pCO2 at Patient Temp 47 mmHg (35-46) Arterial Blood pO2 at Patient Temp 89 mmHg (75-108) Arterial Blood HCO3 34 mmol/L (21-28) Arterial Blood Base Excess 9 mmol/L (-3-3) FiO2 45 Coronavirus (PCR) Not detected (Not Detected) SARS-CoV-2 Antigen (Rapid) Negative (NEGATIVE) Glucose (Fingerstick) 79 mg/dL (70-99) White Blood Count 8.3 x10^3/uL (4.0-11.0) Red Blood Count 3.23 x10^6/uL (4.30-5.70) Hemoglobin 10.4 g/dL (13.0-17.5) Hematocrit 30.8 % (39.0-53.0) Mean Corpuscular Volume 96 fL (79-100) Mean Corpuscular Hemoglobin 32 pg (25-35) Mean Corpuscular Hemoglobin Concent 34 g/dL (31-37) Red Cell Distribution Width 15.7 % (11.5-14.5) Platelet Count 319 x10^3/uL (140-400) Neutrophils (%) (Auto) 79 % (31-73) Lymphocytes (%) (Auto) 12 % (24-48) Monocytes (%) (Auto) 5 % (0-9) Eosinophils (%) (Auto) 4 % (0-3) Basophils (%) (Auto) 0 % (0-3) Neutrophils # (Auto) 6.5 x10^3/uL (1.8-7.7) Lymphocytes # (Auto) 1.0 x10^3/uL (1.0-4.8) Monocytes # (Auto) 0.4 x10^3/uL (0.0-1.1) Eosinophils # (Auto) 0.3 x10^3/uL (0.0-0.7) Basophils # (Auto) 0.0 x10^3/uL (0.0-0.2) Sodium Level 134 mmol/L (136-145) Potassium Level 4.0 mmol/L (3.5-5.1) Chloride Level 96 mmol/L (98-107) Carbon Dioxide Level 33 mmol/L (21-32) Anion Gap 5 (6-14) Blood Urea Nitrogen 9 mg/dL (8-26) Creatinine 0.4 mg/dL (0.7-1.3) Estimated GFR (Cockcroft-Gault) 227.7 Glucose Level 87 mg/dL (70-99) Calcium Level 8.3 mg/dL (8.5-10.1) Laboratory Tests Test 08/01/20 05:52 08/01/20 06:09 Glucose (Fingerstick) 79 mg/dL (70-99) White Blood Count 8.3 x10^3/uL (4.0-11.0) Red Blood Count 3.23 x10^6/uL (4.30-5.70) Hemoglobin 10.4 g/dL (13.0-17.5) Hematocrit 30.8 % (39.0-53.0) Mean Corpuscular Volume 96 fL (79-100) Mean Corpuscular Hemoglobin 32 pg (25-35) Mean Corpuscular Hemoglobin Concent 34 g/dL (31-37) Red Cell Distribution Width 15.7 % (11.5-14.5) Platelet Count 319 x10^3/uL (140-400) Neutrophils (%) (Auto) 79 % (31-73) Lymphocytes (%) (Auto) 12 % (24-48) Monocytes (%) (Auto) 5 % (0-9) Eosinophils (%) (Auto) 4 % (0-3) Basophils (%) (Auto) 0 % (0-3) Neutrophils # (Auto) 6.5 x10^3/uL (1.8-7.7) Lymphocytes # (Auto) 1.0 x10^3/uL (1.0-4.8) Monocytes # (Auto) 0.4 x10^3/uL (0.0-1.1) Eosinophils # (Auto) 0.3 x10^3/uL (0.0-0.7) Basophils # (Auto) 0.0 x10^3/uL (0.0-0.2) Sodium Level 134 mmol/L (136-145) Potassium Level 4.0 mmol/L (3.5-5.1) Chloride Level 96 mmol/L (98-107) Carbon Dioxide Level 33 mmol/L (21-32) Anion Gap 5 (6-14) Blood Urea Nitrogen 9 mg/dL (8-26) Creatinine 0.4 mg/dL (0.7-1.3) Estimated GFR (Cockcroft-Gault) 227.7 Glucose Level 87 mg/dL (70-99) Calcium Level 8.3 mg/dL (8.5-10.1) Comments CXR reviewed 1. Stable life support devices. 2. Bilateral perihilar and basilar opacities, progressed in the left base Impression . IMPRESSION: 1. Acute hypoxemic respiratory failure./ALI/ARDS due to COVID -19 2. Acute pulmonary embolism with cor pulmonale. 3. COVID-[address] chest revealing ground glass opacities. 5. Hypertension. 6. History of bronchitis. 7. Elevated troponin. 8. Acute kidney injury. 9. Leukocytosis. 10. Covid-19 positive 11. Possible loculated hydroPTX left base Plan . Continue current ventilatory support, FiO2 45% and a PEEP of 6, oxygenation improving does not tolerate off sedation. Plan for tracheostomy today off eliquis, consider IV heparin when ready to restart A/C reviewed chest x-ray and ABG, no changes at this time Follow cardiology recommendations Antibiotics per ID--currently on meropenem, blood cultures showing staph capi tis, respiratory culture showing gram-negative rods Has completed full course of remdesivir Continue tube feeding for nutritional support DVT/GI prophylaxis,Protonix Discussed with RN and RT Pt. is FULL CODE critically ill cc time 30 min no overlap NERY SALINAS MD Aug 01, 2020 11:23
--- NOTE | 2020-08-01 15:25 | NUR ---
SS following up with discharge planning. SS reviewed pt chart and discussed with pt RN. Pt is currently on the vent at 40%. COVID19 negative on most recent rapid test. Pt on IV Meropenem and IV Daptomycin. Pt trach placement rescheduled to 08/02/2020. Self pay. SS will continue to follow for discharge planning.
--- NOTE | 2020-08-01 15:52 | PDOC ---
[employer] PROGRESS NOTE Date of Service DOS: DATE: 08/01/20 TIME: 15:50 Chief Complaint Chief Complaint IMPRESSION Acute hypoxic respiratory failure requiring VENT SUPPORT Acute hypoxic respiratory failure/ARDS /pneumonia Bilateral perihilar and basilar opacities, progressed in the left base. 07-26 COVID-19 Subsegmental bilateral PE Leukocytosis NSTEMI AKA Lactic acidosis Hyponatremia, RESOLVED hgb 6.5 07-27, transfused 1 unit prbc's hyp[okalemia, on replacement Plan: Appreciate pulmonology recommendations Continue current ventilatory support, currently on 70% and PEEP of 6, avoid increasing PEEP 2/2 risk of barotrauma Follow chest x-ray and ABG, vent management as per pulmonology Heparin has been transitioned to Xarelto Solu-Medrol 40 mg every 12 hours Appreciate ID recommendationscontinue Remdesivir and empiric antibiotics IV fluids Discussed with RN and SW. Antibiotics per ID-- off ABX, infectious disease following increasing leukocytosis has completed full course of remdesivir continue tube feeding for nutritional support 35 MIN CC TIME History of Present Illness History of Present Illness 08/01/2020 Patient seen in [facility] ICU. Patient remains slightly febrile. Mechanically ventilated, FiO2 45%, PEEP 6. Tracheostomy unable to perform yesterday, general surgery to attempt again today. Discussed with RN. 07/31/2020 Patient still spiking fevers. Patient remains on vent, FiO2 45%, PEEP 6. Tracheostomy tentatively planned for today. 07/30/2020 Patient seen in [place] [id number] ICU. He is febrile on vent, FiO2 45%, PEEP 6. Will attempt to speak with family about decision on trach and PEG tube. Discussed with RN. t max 102 f fio2 50% 07/21/2020 Patient no acute events reported overnight. Patient continues to require a lot of support from vent. Discussed with RN 09/19/2019 Patient continues to be pretty much the same , fio2 is at 70%, heparin 07/19/2020 Patient hypotensive today, we will follow recommendations from critical hearing healthcare practitioner. Vent management as per contaminated land consultant, no other complaints. 07/18/2020 Patient with no acute events reported overnight, fio2 is now at 75% PEEP of 6, Vent management as per pulmonary contaminated land consultant slight increase in temperature noted over the lat 24 hours. Will continue to follow 07/17/2020 Patient with no acute events reported overnight, contineus to require an fio2 of 80%, continue with supportive measures. 07/16/2020 Patient with no acute events reported overnight, patient continues to require quite a bit of FiO2 at 80%. Vent management as per contaminated land consultant, will place a call to family members after rounding. Discussed with RN 07/15/2020 Patient seen and examined bedside in the ICU. FiO2 80% PEEP of 6.pH 7.56, PCO2 32, PO2 56, HCO3 28. Will adjust respiratory rate accordingly to correct pH.> 50% time spent in patient chart, labs, and imaging review and in discussion with RN and JAVIER 07/14/2020 Patient seen and examined bedside. FiO2 65% and PEEP of 6 on vent. ABG: pH 7.26, PCO2 77, PO2 114, HCO3 34. We will adjust respiratory rate or tidal volume to titrate pH.> 50% time spent in patient chart, labs, and imaging review and in discussion with RN and JAVIER 07/13/2020 No acute events overnight. Patient examined bedside sedated and intubated. FiO2 70% PEEP of 6. Improved ABGs.> 50% time spent in patient chart, labs, and imaging review and in discussion with RN and JAVIER 07/12/2020 Patient seen and examined in the ICU. Sedated and intubated. FiO2 65, PEEP of 8 with improved oxygenation. pH 7.4, PCO2 48, PO2 94, HCO3 30. +500 cc fluid balance.> 50% time spent in patient chart, labs, and imaging review and in discussion with RN and JAVIER 07/11/2020 Patient seen and examined bedside in the ICU. Patient continues to be intubated and sedated. FiO2 75%, PEEP of 10. pH 7.40, PCO2 44, PO2 is 135, HCO3 26. Can likely decrease FiO2 due to improved oxygenation. +173 cc in the past 24 hours 07/10/2020 Patient seen and examined bedside in ICU. Patient is intubated and sedated. FiO2 90%, PEEP of 10, respiratory rate of 30. ABG: pH is 7.41, PCO2 42, PO2 113, HCO3 26. 07/09/2020 Patient seen and examined in the ICU. Intubated and sedated. Vent settings FiO2 90%, PEEP of 10, respiratory rate of 30. 07/05: Patient seen in ICU, still intubated and sedated. COVID-19 pending. Patient remains on heparin infusion. Discussed with RN, will try to have central line placed per anesthesia. 07/06: Patient seen in ICU. Still FiO2 100% on vent and sedated. COVID-19 positive. Continue heparin infusion, Zosyn, steroids. 07/07: Covid positive patient seen in ICU. On vent with FiO2 100%, PEEP 10. Continue remdesivir, steroids, Zosyn. Continue to monitor 07/08: Patient seen in Covid ICU. Still on vent with FiO2 100%, PEEP 10. Afebrile. No acute events overnight. Continue steroids, antibiotics, and remdesivir. Patient is 49-year-old male with past medical history of hypertension, who presents to the ED with complaints of worsening shortness of breath over the past 5 days. Associated sore throat, fatigue, and generalized weakness. Patient was reportedly tested for COVID-19 last Thursday, but he had negative test results. His symptoms acutely worsened yesterday. Upon arrival to the ER his oxygen saturation was 60% on room air. He was placed on BiPAP and admitted to the ICU. Patient was subsequently intubated due to worsening respiratory failure. Vitals/I&O Vitals/I&O: Vital Signs Date Time Temp Pulse Resp B/P (MAP) Pulse Ox O2 Delivery O2 Flow Rate FiO2 08/01/20 15:46 Mechanical Ventilator 08/01/20 15:00 100.9 91 18 120/73 (89) 97 100.9 I & O 07/31/20 07/31/20 08/01/20 15:00 23:00 07:00 Intake Total 250 ml 619 ml 591 ml Output Total 425 ml 665 ml 1040 ml Balance -175 ml -46 ml -449 ml Physical Exam Physical Exam: General intubated/sedated HEENT normocephalic atraumatic, OGT/ETT present LUNGS: Coarse breath sounds anteriorly HEART: S1-S2 no murmurs ABDOMEN: Nondistended, soft bowel sounds present Fernandez in place SKIN: No generalized rash Right upper extremity PICC line removed PIV Clean Neuro intubated/sedated General: No acute distress Heart: Regular rate (SR/ST) Lungs: Other (orally intubated, clear ) Abdomen: Soft Extremities: No clubbing, No cyanosis Skin: No rashes, No breakdown Labs Labs: Laboratory Tests Test 08/01/20 05:52 08/01/20 06:09 Glucose (Fingerstick) 79 mg/dL (70-99) White Blood Count 8.3 x10^3/uL (4.0-11.0) Red Blood Count 3.23 x10^6/uL (4.30-5.70) Hemoglobin 10.4 g/dL (13.0-17.5) Hematocrit 30.8 % (39.0-53.0) Mean Corpuscular Volume 96 fL (79-100) Mean Corpuscular Hemoglobin 32 pg (25-35) Mean Corpuscular Hemoglobin Concent 34 g/dL (31-37) Red Cell Distribution Width 15.7 % (11.5-14.5) Platelet Count 319 x10^3/uL (140-400) Neutrophils (%) (Auto) 79 % (31-73) Lymphocytes (%) (Auto) 12 % (24-48) Monocytes (%) (Auto) 5 % (0-9) Eosinophils (%) (Auto) 4 % (0-3) Basophils (%) (Auto) 0 % (0-3) Neutrophils # (Auto) 6.5 x10^3/uL (1.8-7.7) Lymphocytes # (Auto) 1.0 x10^3/uL (1.0-4.8) Monocytes # (Auto) 0.4 x10^3/uL (0.0-1.1) Eosinophils # (Auto) 0.3 x10^3/uL (0.0-0.7) Basophils # (Auto) 0.0 x10^3/uL (0.0-0.2) Sodium Level 134 mmol/L (136-145) Potassium Level 4.0 mmol/L (3.5-5.1) Chloride Level 96 mmol/L (98-107) Carbon Dioxide Level 33 mmol/L (21-32) Anion Gap 5 (6-14) Blood Urea Nitrogen 9 mg/dL (8-26) Creatinine 0.4 mg/dL (0.7-1.3) Estimated GFR (Cockcroft-Gault) 227.7 Glucose Level 87 mg/dL (70-99) Calcium Level 8.3 mg/dL (8.5-10.1) Review of Systems Review of Systems: Unable to obtain due to clinical condition Assessment and Plan Assessmemt and Plan Problems Medical Problems: (1) Acute respiratory failure with hypoxia Status: Acute (2) PRIYA (acute kidney injury) Status: Acute (3) Elevated troponin I level Status: Acute (4) Pulmonary emboli Status: Acute (5) Suspected COVID-19 virus infection Status: Acute Comment Review of Relevant I have reviewed the following items trino (where applicable) has been applied. Medications: Current Medications Medications (Trade) Dose Ordered Sig/Natalee Route PRN Reason Start Time Stop Time Status Last Admin Dose Admin Daptomycin 470 mg/ Sodium Chloride 50 ml @ 100 mls/hr Q24H IV 08/01/20 09:00 08/01/20 09:13 Justifications for Admission Other Justification SHERLY DUKES MD Aug 01, 2020 15:51
--- NOTE | 2020-08-01 19:40 | PDOC ---
SURGICAL PROGRESS NOTE DATE: 08/01/20 TIME: 19:39 Subjective Pt orally intubated Vital Signs Vital Signs Date Time Temp Pulse Resp B/P (MAP) Pulse Ox O2 Delivery O2 Flow Rate FiO2 08/01/20 18:00 101.1 93 18 115/67 (83) 96 Ventilator 101.1 I&O Intake and Output 08/01/20 07:00 Intake Total 1460 ml Output Total 2130 ml Balance -670 ml IV Total 860 ml Tube Feeding 600 ml Output Urine Total 1230 ml Gastric Drainage Total 900 ml General: No acute distress HEENT: Other (orally intubated) Labs Laboratory Tests Test 07/31/20 06:06 07/31/20 06:28 07/31/20 08:40 08/01/20 05:52 Glucose (Fingerstick) 124 mg/dL (70-99) 79 mg/dL (70-99) White Blood Count 7.3 x10^3/uL (4.0-11.0) Red Blood Count 3.01 x10^6/uL (4.30-5.70) Hemoglobin 9.6 g/dL (13.0-17.5) Hematocrit 28.9 % (39.0-53.0) Mean Corpuscular Volume 96 fL (79-100) Mean Corpuscular Hemoglobin 32 pg (25-35) Mean Corpuscular Hemoglobin Concent 33 g/dL (31-37) Red Cell Distribution Width 15.6 % (11.5-14.5) Platelet Count 269 x10^3/uL (140-400) Neutrophils (%) (Auto) 79 % (31-73) Lymphocytes (%) (Auto) 11 % (24-48) Monocytes (%) (Auto) 5 % (0-9) Eosinophils (%) (Auto) 4 % (0-3) Basophils (%) (Auto) 0 % (0-3) Neutrophils # (Auto) 5.7 x10^3/uL (1.8-7.7) Lymphocytes # (Auto) 0.8 x10^3/uL (1.0-4.8) Monocytes # (Auto) 0.4 x10^3/uL (0.0-1.1) Eosinophils # (Auto) 0.3 x10^3/uL (0.0-0.7) Basophils # (Auto) 0.0 x10^3/uL (0.0-0.2) Sodium Level 132 mmol/L (136-145) Potassium Level 3.6 mmol/L (3.5-5.1) Chloride Level 95 mmol/L (98-107) Carbon Dioxide Level 36 mmol/L (21-32) Anion Gap 1 (6-14) Blood Urea Nitrogen 9 mg/dL (8-26) Creatinine 0.5 mg/dL (0.7-1.3) Estimated GFR (Cockcroft-Gault) 176.0 Glucose Level 112 mg/dL (70-99) Calcium Level 8.0 mg/dL (8.5-10.1) O2 Saturation 97 % (92-99) Arterial Blood pH 7.48 (7.35-7.45) Arterial Blood pCO2 at Patient Temp 47 mmHg (35-46) Arterial Blood pO2 at Patient Temp 89 mmHg (75-108) Arterial Blood HCO3 34 mmol/L (21-28) Arterial Blood Base Excess 9 mmol/L (-3-3) FiO2 45 Coronavirus (PCR) Not detected (Not Detected) SARS-CoV-2 Antigen (Rapid) Negative (NEGATIVE) Test 08/01/20 06:09 White Blood Count 8.3 x10^3/uL (4.0-11.0) Red Blood Count 3.23 x10^6/uL (4.30-5.70) Hemoglobin 10.4 g/dL (13.0-17.5) Hematocrit 30.8 % (39.0-53.0) Mean Corpuscular Volume 96 fL (79-100) Mean Corpuscular Hemoglobin 32 pg (25-35) Mean Corpuscular Hemoglobin Concent 34 g/dL (31-37) Red Cell Distribution Width 15.7 % (11.5-14.5) Platelet Count 319 x10^3/uL (140-400) Neutrophils (%) (Auto) 79 % (31-73) Lymphocytes (%) (Auto) 12 % (24-48) Monocytes (%) (Auto) 5 % (0-9) Eosinophils (%) (Auto) 4 % (0-3) Basophils (%) (Auto) 0 % (0-3) Neutrophils # (Auto) 6.5 x10^3/uL (1.8-7.7) Lymphocytes # (Auto) 1.0 x10^3/uL (1.0-4.8) Monocytes # (Auto) 0.4 x10^3/uL (0.0-1.1) Eosinophils # (Auto) 0.3 x10^3/uL (0.0-0.7) Basophils # (Auto) 0.0 x10^3/uL (0.0-0.2) Sodium Level 134 mmol/L (136-145) Potassium Level 4.0 mmol/L (3.5-5.1) Chloride Level 96 mmol/L (98-107) Carbon Dioxide Level 33 mmol/L (21-32) Anion Gap 5 (6-14) Blood Urea Nitrogen 9 mg/dL (8-26) Creatinine 0.4 mg/dL (0.7-1.3) Estimated GFR (Cockcroft-Gault) 227.7 Glucose Level 87 mg/dL (70-99) Calcium Level 8.3 mg/dL (8.5-10.1) Laboratory Tests Test 08/01/20 05:52 08/01/20 06:09 Glucose (Fingerstick) 79 mg/dL (70-99) White Blood Count 8.3 x10^3/uL (4.0-11.0) Red Blood Count 3.23 x10^6/uL (4.30-5.70) Hemoglobin 10.4 g/dL (13.0-17.5) Hematocrit 30.8 % (39.0-53.0) Mean Corpuscular Volume 96 fL (79-100) Mean Corpuscular Hemoglobin 32 pg (25-35) Mean Corpuscular Hemoglobin Concent 34 g/dL (31-37) Red Cell Distribution Width 15.7 % (11.5-14.5) Platelet Count 319 x10^3/uL (140-400) Neutrophils (%) (Auto) 79 % (31-73) Lymphocytes (%) (Auto) 12 % (24-48) Monocytes (%) (Auto) 5 % (0-9) Eosinophils (%) (Auto) 4 % (0-3) Basophils (%) (Auto) 0 % (0-3) Neutrophils # (Auto) 6.5 x10^3/uL (1.8-7.7) Lymphocytes # (Auto) 1.0 x10^3/uL (1.0-4.8) Monocytes # (Auto) 0.4 x10^3/uL (0.0-1.1) Eosinophils # (Auto) 0.3 x10^3/uL (0.0-0.7) Basophils # (Auto) 0.0 x10^3/uL (0.0-0.2) Sodium Level 134 mmol/L (136-145) Potassium Level 4.0 mmol/L (3.5-5.1) Chloride Level 96 mmol/L (98-107) Carbon Dioxide Level 33 mmol/L (21-32) Anion Gap 5 (6-14) Blood Urea Nitrogen 9 mg/dL (8-26) Creatinine 0.4 mg/dL (0.7-1.3) Estimated GFR (Cockcroft-Gault) 227.7 Glucose Level 87 mg/dL (70-99) Calcium Level 8.3 mg/dL (8.5-10.1) Problem List Problems Medical Problems: (1) Acute respiratory failure with hypoxia Status: Acute (2) PRIYA (acute kidney injury) Status: Acute (3) Elevated troponin I level Status: Acute (4) Pulmonary emboli Status: Acute (5) Suspected COVID-19 virus infection Status: Acute Assessment/Plan OR not available today tracheostomy planned for tomorrow Justicifation of Admission Dx: Justifications for Admission: Justification of Admission Dx: Yes BRETT MCGEE MD Aug 01, 2020 19:40
[2020-08-02] VITALS (25 sets, daily range): BP systolic 96–160; BP diastolic 59–95
[2020-08-02] MEDS: MEROPENEM 500 MG in IV NORMAL SALINE 50ML 50 ML IV SCH ×2 (00:02→06:02)
[2020-08-02] MEDS: PROPOFOL 100 ML IV PRN ×4 (02:10→23:22)
[2020-08-02] MEDS: MIDAZOLAM 100mg/100ml NS BAG 100 ML IV PRN ×4 (03:35→23:21)
--- NOTE | 2020-08-02 04:58 | RAD ---
PORTABLE CHEST 1V History: Reason: Vent, post trach 104 / Spl. Instructions: / History: Comparison: July 29, 2020 Findings: Stable endotracheal tube and enteric tube. Diffuse interstitial and alveolar opacities, decreased compared to prior. Moderate left loculated pleural effusion, unchanged. Unchanged heart size. No pneumothorax. Impression: 1. Decreased diffuse interstitial and alveolar opacities. 2. Moderate loculated left pleural effusion, unchanged. Electronically signed by: Nicolas Clemente DO (08/02/2020 4:55 AM) [facility]
[2020-08-02] MEDS: ASCORBIC ACID 500 MG TABLET PO SCH ×4 (05:14→18:00)
[2020-08-02] MEDS ORDERED: ONDANSETRON PF 4 MG/2 ML VIAL. IV PRN (07:00)
[2020-08-02] MEDS ORDERED: HYDROmorphone 2 MG/ML VIAL IV PRN (07:00)
[2020-08-02] MEDS ORDERED: LIDOCAINE 1% PF 2 ML VIAL. ID PRN (07:00)
[2020-08-02] MEDS ORDERED: MORPHINE SULFATE 2 MG/ML VIAL. IV PRN (07:00)
[2020-08-02] MEDS ORDERED: IV RINGERS,LACTATED 1000ML 1,000 ML IV SCH (07:00)
[2020-08-02] MEDS ORDERED: fentaNYL PF VIAL 100 MCG/2 ML VIAL IV PRN ×2 (07:00)
[2020-08-02] MEDS ORDERED: PROCHLORPERAZINE 10 MG/2 ML VIAL. IV PRN (07:00)
[2020-08-02] MEDS: CHOLECALCIFEROL (VITAMIN D3) 5,000 UNIT CAPSULE PO SCH (07:32)
[2020-08-02] MEDS: PANTOPRAZOLE IV PUSH 40 MG VIAL. IVP SCH ×2 (07:32→07:59)
[2020-08-02] MEDS: ZINC SULFATE 220 MG CAPSULE. PO SCH (07:32)
--- NOTE | 2020-08-02 07:45 | PDOC ---
Infectious Disease Note Subjective Subjective Patient Intubated Fever+ ROS ROS no n/v/d/ Vital Sign Vital Signs Vital Signs Date Time Temp Pulse Resp B/P (MAP) Pulse Ox O2 Delivery O2 Flow Rate FiO2 08/02/20 06:00 100.6 91 23 114/60 (78) 96 Ventilator 100.6 Physical Exam PHYSICAL EXAM General intubated/sedated HEENT normocephalic atraumatic, OGT/ETT present LUNGS: Coarse breath sounds anteriorly HEART: S1-S2 no murmurs ABDOMEN: Nondistended, soft bowel sounds present Fernandez in place SKIN: No generalized rash Right upper extremity PICC line removed PIV Clean Neuro intubated/sedated Labs Micro sputum enterobacter Objective Assessment Fever Leukocytosis improved COVID-19 positive. Status post remdesivir, steroids Acute hypoxic respiratory failure/ARDS /pneumonia Bilateral pulmonary emboli. Hypertension. Bacteremia 07/23 1/2 bottles staph hominis likely contaminant Repeat blood cultures staph capitis likely contaminant Enterobacter UTI and pneumonia Plan Plan of Care Cont dapto ,, d/c meropenem, start levaquin RUE PICC line DC'd Fernandez changed 07/26 Follow-up repeat BC Monitor labs and cultures Critically ill likely drug fever D/W MONALISA LUCAS MD Aug 02, 2020 07:45
[2020-08-02 07:55] LABS: BASO % 0 % (0-3); EOS # 0.4 x10^3/uL (0.0-0.7); EOS % 5 % (0-3); HEMATOCRIT 31.1 % (39.0-53.0); HEMOGLOBIN 10.4 g/dL (13.0-17.5); LYMPH # 0.9 x10^3/uL (1.0-4.8); LYMPH % 12 % (24-48); MEAN CORPUSCULAR HEMOGLOBIN 32 pg (25-35); MEAN CORPUSCULAR HGB CONC 34 g/dL (31-37); MEAN CORPUSCULAR VOLUME 95 fL (79-100); MONO # 0.5 x10^3/uL (0.0-1.1); MONO % 7 % (0-9); NEUT # 6.2 x10^3/uL (1.8-7.7); NEUT % 77 % (31-73); PLATELET COUNT 346 x10^3/uL (140-400); RED BLOOD COUNT 3.26 x10^6/uL (4.30-5.70); RED CELL DISTRIBUTION WIDTH 15.6 % (11.5-14.5)
[2020-08-02] MEDS: DAPTOmycin (GENERIC) IVPB 470 MG in IV NORMAL SALINE 50ML 50 ML IV SCH (08:01)
[2020-08-02 08:21] LABS: BASE EXCESS ABG 5 mmol/L (-3-3); HCO3 ABG 29 mmol/L (21-28); PCO2 ABG 45 mmHg (35-46); PO2 ABG 80 mmHg (75-108); SAT O2 ABG 95 % (92-99)
[2020-08-02 08:33] LABS: ANION GAP 7 (6-14); BLOOD UREA NITROGEN 9 mg/dL (8-26); CALCIUM 8.5 mg/dL (8.5-10.1); CARBON DIOXIDE 32 mmol/L (21-32); CHLORIDE 95 mmol/L (98-107); CREATININE 0.3 mg/dL (0.7-1.3); GFR > 300.0; GLUCOSE 88 mg/dL (70-99); POTASSIUM 3.6 mmol/L (3.5-5.1); SODIUM 134 mmol/L (136-145)
[2020-08-02 08:41] LABS: FIO2 ABG 40/VENT
[2020-08-02] MEDS ORDERED: ROCURONIUM 50 MG/5 ML VIAL. ONE (10:12)
--- NOTE | 2020-08-02 11:32 | PDOC ---
PULMONARY PROGRESS NOTES DATE: 08/02/20 TIME: 11:30 Subjective PT. remains on vent support , 40% FiO2 and a PEEP of 6 Tracheostomy has been postponed until Thursday Fever overnight No other concerns from nursing Vitals Vital Signs Date Time Temp Pulse Resp B/P (MAP) Pulse Ox O2 Delivery O2 Flow Rate FiO2 08/02/20 11:09 97 Ventilator 08/02/20 06:00 100.6 91 23 114/60 (78) 100.6 Comments Patient seen during ID pandemic visual exam performed Intubated/sedated has accessory muscle use tachypneac RRR No obvious rash or edema Lungs: Other (orally intubated, clear ) Labs Laboratory Tests Test 08/01/20 05:52 08/01/20 06:09 08/02/20 06:11 08/02/20 08:00 Glucose (Fingerstick) 79 mg/dL (70-99) White Blood Count 8.3 x10^3/uL (4.0-11.0) 8.0 x10^3/uL (4.0-11.0) Red Blood Count 3.23 x10^6/uL (4.30-5.70) 3.26 x10^6/uL (4.30-5.70) Hemoglobin 10.4 g/dL (13.0-17.5) 10.4 g/dL (13.0-17.5) Hematocrit 30.8 % (39.0-53.0) 31.1 % (39.0-53.0) Mean Corpuscular Volume 96 fL (79-100) 95 fL (79-100) Mean Corpuscular Hemoglobin 32 pg (25-35) 32 pg (25-35) Mean Corpuscular Hemoglobin Concent 34 g/dL (31-37) 34 g/dL (31-37) Red Cell Distribution Width 15.7 % (11.5-14.5) 15.6 % (11.5-14.5) Platelet Count 319 x10^3/uL (140-400) 346 x10^3/uL (140-400) Neutrophils (%) (Auto) 79 % (31-73) 77 % (31-73) Lymphocytes (%) (Auto) 12 % (24-48) 12 % (24-48) Monocytes (%) (Auto) 5 % (0-9) 7 % (0-9) Eosinophils (%) (Auto) 4 % (0-3) 5 % (0-3) Basophils (%) (Auto) 0 % (0-3) 0 % (0-3) Neutrophils # (Auto) 6.5 x10^3/uL (1.8-7.7) 6.2 x10^3/uL (1.8-7.7) Lymphocytes # (Auto) 1.0 x10^3/uL (1.0-4.8) 0.9 x10^3/uL (1.0-4.8) Monocytes # (Auto) 0.4 x10^3/uL (0.0-1.1) 0.5 x10^3/uL (0.0-1.1) Eosinophils # (Auto) 0.3 x10^3/uL (0.0-0.7) 0.4 x10^3/uL (0.0-0.7) Basophils # (Auto) 0.0 x10^3/uL (0.0-0.2) 0.0 x10^3/uL (0.0-0.2) Sodium Level 134 mmol/L (136-145) 134 mmol/L (136-145) Potassium Level 4.0 mmol/L (3.5-5.1) 3.6 mmol/L (3.5-5.1) Chloride Level 96 mmol/L (98-107) 95 mmol/L (98-107) Carbon Dioxide Level 33 mmol/L (21-32) 32 mmol/L (21-32) Anion Gap 5 (6-14) 7 (6-14) Blood Urea Nitrogen 9 mg/dL (8-26) 9 mg/dL (8-26) Creatinine 0.4 mg/dL (0.7-1.3) 0.3 mg/dL (0.7-1.3) Estimated GFR (Cockcroft-Gault) 227.7 > 300.0 Glucose Level 87 mg/dL (70-99) 88 mg/dL (70-99) Calcium Level 8.3 mg/dL (8.5-10.1) 8.5 mg/dL (8.5-10.1) Creatine Kinase 58 U/L (39-308) O2 Saturation 95 % (92-99) Arterial Blood pH 7.44 (7.35-7.45) Arterial Blood pCO2 at Patient Temp 45 mmHg (35-46) Arterial Blood pO2 at Patient Temp 80 mmHg (75-108) Arterial Blood HCO3 29 mmol/L (21-28) Arterial Blood Base Excess 5 mmol/L (-3-3) FiO2 40/vent Laboratory Tests Test 08/02/20 06:11 08/02/20 08:00 White Blood Count 8.0 x10^3/uL (4.0-11.0) Red Blood Count 3.26 x10^6/uL (4.30-5.70) Hemoglobin 10.4 g/dL (13.0-17.5) Hematocrit 31.1 % (39.0-53.0) Mean Corpuscular Volume 95 fL (79-100) Mean Corpuscular Hemoglobin 32 pg (25-35) Mean Corpuscular Hemoglobin Concent 34 g/dL (31-37) Red Cell Distribution Width 15.6 % (11.5-14.5) Platelet Count 346 x10^3/uL (140-400) Neutrophils (%) (Auto) 77 % (31-73) Lymphocytes (%) (Auto) 12 % (24-48) Monocytes (%) (Auto) 7 % (0-9) Eosinophils (%) (Auto) 5 % (0-3) Basophils (%) (Auto) 0 % (0-3) Neutrophils # (Auto) 6.2 x10^3/uL (1.8-7.7) Lymphocytes # (Auto) 0.9 x10^3/uL (1.0-4.8) Monocytes # (Auto) 0.5 x10^3/uL (0.0-1.1) Eosinophils # (Auto) 0.4 x10^3/uL (0.0-0.7) Basophils # (Auto) 0.0 x10^3/uL (0.0-0.2) Sodium Level 134 mmol/L (136-145) Potassium Level 3.6 mmol/L (3.5-5.1) Chloride Level 95 mmol/L (98-107) Carbon Dioxide Level 32 mmol/L (21-32) Anion Gap 7 (6-14) Blood Urea Nitrogen 9 mg/dL (8-26) Creatinine 0.3 mg/dL (0.7-1.3) Estimated GFR (Cockcroft-Gault) > 300.0 Glucose Level 88 mg/dL (70-99) Calcium Level 8.5 mg/dL (8.5-10.1) Creatine Kinase 58 U/L (39-308) O2 Saturation 95 % (92-99) Arterial Blood pH 7.44 (7.35-7.45) Arterial Blood pCO2 at Patient Temp 45 mmHg (35-46) Arterial Blood pO2 at Patient Temp 80 mmHg (75-108) Arterial Blood HCO3 29 mmol/L (21-28) Arterial Blood Base Excess 5 mmol/L (-3-3) FiO2 40/vent Comments CXR 08/02 Impression: 1. Decreased diffuse interstitial and alveolar opacities. 2. Moderate loculated left pleural effusion, unchanged. Impression . IMPRESSION: 1. Acute hypoxemic respiratory failure./ALI/ARDS due to COVID -19 2. Acute pulmonary embolism with cor pulmonale. 3. COVID-[address] chest revealing ground glass opacities. 5. Hypertension. 6. History of bronchitis. 7. Elevated troponin. 8. Acute kidney injury. 9. Leukocytosis. 10. Covid-19 positive 11. Possible loculated hydroPTX left base Plan . Continue current ventilatory support, FiO2 40% and a PEEP of 6, oxygenation improving does not tolerate off sedation. Tracheostomy has been postponed until Thursday off eliquis, consider IV heparin when ready to restart A/C reviewed chest x-ray and ABG, no changes at this time Follow cardiology recommendations Antibiotics per ID--currently on daptomycin and Levaquin Has completed full course of remdesivir Continue tube feeding for nutritional support, consult GI for PEG tube placement DVT/GI prophylaxis,Protonix Discussed with RN and RT Pt. is FULL CODE critically ill cc time 30 min no overlap NERY SALINAS MD Aug 02, 2020 11:31
[2020-08-02] MEDS: VECURONIUM BOLUS 10 MG VIAL. IV PRN (12:01)
--- NOTE | 2020-08-02 12:14 | PDOC2 ---
GI CONSULT Date of Service: DATE: 08/02/20 TIME: 12:03 Reason For Consult: PEG HPI: HPI: 49 y/o female admitted on 07/03/20 w/ COVID infection and resp failure. Remains on ventilator in ICU. History from chart and nurse. Dr. Nance has d/w family - awaiting tracheostomy placement and we have been asked to see for PEG. Has OG - feeds have been held for pending tracheostomy - no available OR time this week. She is unaware of any prior issues w/ OG feeds. Some anemia - required transfusion on 07/27 - Hgb stable now. Elevated Alk Phos - last checked 07/29. CT on 07/29 showed constipation vs ileus - stool charted 07/31. On IV PPI. PMH: PMH: asthma, HTN FH: Family History: No pertinent hx Social History: Smoke: No ALCOHOL: occassional Drugs: None ROS: unable to obtain Vitals: Vitals: Vital Signs Date Time Temp Pulse Resp B/P (MAP) Pulse Ox O2 Delivery O2 Flow Rate FiO2 08/02/20 11:09 97 Ventilator 08/02/20 06:00 100.6 91 23 114/60 (78) 100.6 Labs: Labs: Laboratory Tests Test 08/02/20 06:11 08/02/20 08:00 White Blood Count 8.0 x10^3/uL (4.0-11.0) Red Blood Count 3.26 x10^6/uL (4.30-5.70) Hemoglobin 10.4 g/dL (13.0-17.5) Hematocrit 31.1 % (39.0-53.0) Mean Corpuscular Volume 95 fL (79-100) Mean Corpuscular Hemoglobin 32 pg (25-35) Mean Corpuscular Hemoglobin Concent 34 g/dL (31-37) Red Cell Distribution Width 15.6 % (11.5-14.5) Platelet Count 346 x10^3/uL (140-400) Neutrophils (%) (Auto) 77 % (31-73) Lymphocytes (%) (Auto) 12 % (24-48) Monocytes (%) (Auto) 7 % (0-9) Eosinophils (%) (Auto) 5 % (0-3) Basophils (%) (Auto) 0 % (0-3) Neutrophils # (Auto) 6.2 x10^3/uL (1.8-7.7) Lymphocytes # (Auto) 0.9 x10^3/uL (1.0-4.8) Monocytes # (Auto) 0.5 x10^3/uL (0.0-1.1) Eosinophils # (Auto) 0.4 x10^3/uL (0.0-0.7) Basophils # (Auto) 0.0 x10^3/uL (0.0-0.2) Sodium Level 134 mmol/L (136-145) Potassium Level 3.6 mmol/L (3.5-5.1) Chloride Level 95 mmol/L (98-107) Carbon Dioxide Level 32 mmol/L (21-32) Anion Gap 7 (6-14) Blood Urea Nitrogen 9 mg/dL (8-26) Creatinine 0.3 mg/dL (0.7-1.3) Estimated GFR (Cockcroft-Gault) > 300.0 Glucose Level 88 mg/dL (70-99) Calcium Level 8.5 mg/dL (8.5-10.1) Creatine Kinase 58 U/L (39-308) O2 Saturation 95 % (92-99) Arterial Blood pH 7.44 (7.35-7.45) Arterial Blood pCO2 at Patient Temp 45 mmHg (35-46) Arterial Blood pO2 at Patient Temp 80 mmHg (75-108) Arterial Blood HCO3 29 mmol/L (21-28) Arterial Blood Base Excess 5 mmol/L (-3-3) FiO2 40/vent Allergies: Coded Allergies: No Known Drug Allergies (Unverified , 07/03/20) Medications: Current Medications Medications (Trade) Dose Ordered Sig/Natalee Route PRN Reason Start Time Stop Time Status Last Admin Dose Admin Ringer's Solution 1,000 ml @ 30 mls/hr Q24H IV 08/02/20 07:00 08/02/20 18:59 08/02/20 07:53 Levofloxacin/ Dextrose 150 ml @ 100 mls/hr Q24H IV 08/02/20 09:00 08/02/20 08:04 Imaging: Imaging: CXR 08/02 Impression: 1. Decreased diffuse interstitial and alveolar opacities. 2. Moderate loculated left pleural effusion, unchanged. CT A/P 07/29 Impression: 1. Bilateral pleural effusions and bilateral infiltrates left worse than right suggests atypical pneumonia. 2. There is an air-fluid collection anteriorly in the left lung base partially included examination which could be a loculated hydropneumothorax or could be a lung abscess. 3. Mild colonic constipation versus colonic ileus. PE: GEN: intubated in COVID isolation in ICU HEENT: atraumatic LUNGS: vent/clear HEART: RRR ABD: quiet, soft, non-distended SKIN: no surgical scars on abdomen NEURO/PSYCH: sedated A/P: A/P: COVID-19 infection - positive 07/03, negative 07/31 Resp failure/pneumonia/PEs, UTI, ?bacteremia, fever Normocytic anemia, elevated Alk Phos -- Tentative plans for tracheostomy on Thursday, could pursue PEG after that (?Thursday) - will d/w Dr. Haque. Check INR. Agree w/ PPI. LYNETTE CELIS Aug 02, 2020 12:14
[2020-08-02 12:42] LABS: PROTHROMBIN TIME PATIENT 16.7 SEC (11.7-14.0)
--- NOTE | 2020-08-02 13:05 | PDOC ---
[employer] PROGRESS NOTE Date of Service DOS: DATE: 08/02/20 TIME: 13:03 Chief Complaint Chief Complaint IMPRESSION Acute hypoxic respiratory failure requiring VENT SUPPORT Acute hypoxic respiratory failure/ARDS /pneumonia Bilateral perihilar and basilar opacities, progressed in the left base. [facility] [facility] Subsegmental bilateral PE Leukocytosis NSTEMI AKA Lactic acidosis Hyponatremia, RESOLVED hgb 6.5 07-27, transfused 1 unit prbc's hyp[okalemia, on replacement Plan: Appreciate pulmonology recommendations Continue current ventilatory support, currently on 70% and PEEP of 6, avoid increasing PEEP 2/2 risk of barotrauma Follow chest x-ray and ABG, vent management as per pulmonology Heparin has been transitioned to Xarelto Solu-Medrol 40 mg every 12 hours Appreciate ID recommendationscontinue Remdesivir and empiric antibiotics IV fluids Discussed with RN and SW. Antibiotics per ID-- off ABX, infectious disease following increasing leukocytosis has completed full course of remdesivir continue tube feeding for nutritional support 35 MIN CC TIME History of Present Illness History of Present Illness 08/02/2020 Patient seen and evaluated in [facility] ICU. He is febrile this morning. Still intubated mechanically ventilated with FiO2 40 %, PEEP 6. Plans for tr acheostomy today. 08/01/2020 Patient seen in [facility] ICU. Patient remains slightly febrile. Mechanically ventilated, FiO2 45%, PEEP 6. Tracheostomy unable to perform yesterday, general surgery to attempt again today. Discussed with RN. 07/31/2020 Patient still spiking fevers. Patient remains on vent, FiO2 45%, PEEP 6. Tracheostomy tentatively planned for today. 07/30/2020 Patient seen in [place] [id number] ICU. He is febrile on vent, FiO2 45%, PEEP 6. Will attempt to speak with family about decision on trach and PEG tube. Discussed with RN. t max 102 f fio2 50% 07/21/2020 Patient no acute events reported overnight. Patient continues to require a lot of support from vent. Discussed with RN 09/19/2019 Patient continues to be pretty much the same , fio2 is at 70%, heparin 07/19/2020 Patient hypotensive today, we will follow recommendations from critical inspector health care facilities. Vent management as per procurement consultant, no other complaints. 07/18/2020 Patient with no acute events reported overnight, fio2 is now at 75% PEEP of 6, Vent management as per pulmonary procurement consultant slight increase in temperature noted over the lat 24 hours. Will continue to follow 07/17/2020 Patient with no acute events reported overnight, contineus to require an fio2 of 80%, continue with supportive measures. 07/16/2020 Patient with no acute events reported overnight, patient continues to require quite a bit of FiO2 at 80%. Vent management as per procurement consultant, will place a call to family members after rounding. Discussed with RN 07/15/2020 Patient seen and examined bedside in the ICU. FiO2 80% PEEP of 6.pH 7.56, PCO2 32, PO2 56, HCO3 28. Will adjust respiratory rate accordingly to correct pH.> 50% time spent in patient chart, labs, and imaging review and in discussion with RN and JAVIER 07/14/2020 Patient seen and examined bedside. FiO2 65% and PEEP of 6 on vent. ABG: pH 7.26, PCO2 77, PO2 114, HCO3 34. We will adjust respiratory rate or tidal volume to titrate pH.> 50% time spent in patient chart, labs, and imaging review and in discussion with RN and JAVIER 07/13/2020 No acute events overnight. Patient examined bedside sedated and intubated. FiO2 70% PEEP of 6. Improved ABGs.> 50% time spent in patient chart, labs, and imaging review and in discussion with RN and JAVIER 07/12/2020 Patient seen and examined in the ICU. Sedated and intubated. FiO2 65, PEEP of 8 with improved oxygenation. pH 7.4, PCO2 48, PO2 94, HCO3 30. +500 cc fluid balance.> 50% time spent in patient chart, labs, and imaging review and in discussion with RN and JAVIER 07/11/2020 Patient seen and examined bedside in the ICU. Patient continues to be intubated and sedated. FiO2 75%, PEEP of 10. pH 7.40, PCO2 44, PO2 is 135, HCO3 26. Can likely decrease FiO2 due to improved oxygenation. +173 cc in the past 24 hours 07/10/2020 Patient seen and examined bedside in ICU. Patient is intubated and sedated. FiO2 90%, PEEP of 10, respiratory rate of 30. ABG: pH is 7.41, PCO2 42, PO2 113, HCO3 26. 07/09/2020 Patient seen and examined in the ICU. Intubated and sedated. Vent settings FiO2 90%, PEEP of 10, respiratory rate of 30. 07/05: Patient seen in ICU, still intubated and sedated. COVID-19 pending. Patient remains on heparin infusion. Discussed with RN, will try to have central line placed per anesthesia. 07/06: Patient seen in ICU. Still FiO2 100% on vent and sedated. COVID-19 positive. Continue heparin infusion, Zosyn, steroids. 07/07: Covid positive patient seen in ICU. On vent with FiO2 100%, PEEP 10. Continue remdesivir, steroids, Zosyn. Continue to monitor 07/08: Patient seen in Covid ICU. Still on vent with FiO2 100%, PEEP 10. Afebrile. No acute events overnight. Continue steroids, antibiotics, and remdesivir. Patient is 49-year-old male with past medical history of hypertension, who presents to the ED with complaints of worsening shortness of breath over the past 5 days. Associated sore throat, fatigue, and generalized weakness. Patient was reportedly tested for COVID-19 last Thursday, but he had negative test results. His symptoms acutely worsened yesterday. Upon arrival to the ER his oxygen saturation was 60% on room air. He was placed on BiPAP and admitted to the ICU. Patient was subsequently intubated due to worsening respiratory failure. Vitals/I&O Vitals/I&O: Vital Signs Date Time Temp Pulse Resp B/P (MAP) Pulse Ox O2 Delivery O2 Flow Rate FiO2 08/02/20 11:09 97 Ventilator 08/02/20 06:00 100.6 91 23 114/60 (78) 100.6 I & O 08/01/20 08/01/20 08/02/20 15:00 23:00 07:00 Intake Total 300 ml 596 ml 594 ml Output Total 900 ml 915 ml 760 ml Balance -600 ml -319 ml -166 ml Physical Exam Physical Exam: General intubated/sedated HEENT normocephalic atraumatic, OGT/ETT present LUNGS: Coarse breath sounds anteriorly HEART: S1-S2 no murmurs ABDOMEN: Nondistended, soft bowel sounds present Fernandez in place SKIN: No generalized rash Right upper extremity PICC line removed PIV Clean Neuro intubated/sedated Labs Labs: Laboratory Tests Test 08/02/20 06:11 08/02/20 08:00 White Blood Count 8.0 x10^3/uL (4.0-11.0) Red Blood Count 3.26 x10^6/uL (4.30-5.70) Hemoglobin 10.4 g/dL (13.0-17.5) Hematocrit 31.1 % (39.0-53.0) Mean Corpuscular Volume 95 fL (79-100) Mean Corpuscular Hemoglobin 32 pg (25-35) Mean Corpuscular Hemoglobin Concent 34 g/dL (31-37) Red Cell Distribution Width 15.6 % (11.5-14.5) Platelet Count 346 x10^3/uL (140-400) Neutrophils (%) (Auto) 77 % (31-73) Lymphocytes (%) (Auto) 12 % (24-48) Monocytes (%) (Auto) 7 % (0-9) Eosinophils (%) (Auto) 5 % (0-3) Basophils (%) (Auto) 0 % (0-3) Neutrophils # (Auto) 6.2 x10^3/uL (1.8-7.7) Lymphocytes # (Auto) 0.9 x10^3/uL (1.0-4.8) Monocytes # (Auto) 0.5 x10^3/uL (0.0-1.1) Eosinophils # (Auto) 0.4 x10^3/uL (0.0-0.7) Basophils # (Auto) 0.0 x10^3/uL (0.0-0.2) Prothrombin Time 16.7 SEC (11.7-14.0) Prothromb Time International Ratio 1.4 (0.8-1.1) Sodium Level 134 mmol/L (136-145) Potassium Level 3.6 mmol/L (3.5-5.1) Chloride Level 95 mmol/L (98-107) Carbon Dioxide Level 32 mmol/L (21-32) Anion Gap 7 (6-14) Blood Urea Nitrogen 9 mg/dL (8-26) Creatinine 0.3 mg/dL (0.7-1.3) Estimated GFR (Cockcroft-Gault) > 300.0 Glucose Level 88 mg/dL (70-99) Calcium Level 8.5 mg/dL (8.5-10.1) Creatine Kinase 58 U/L (39-308) O2 Saturation 95 % (92-99) Arterial Blood pH 7.44 (7.35-7.45) Arterial Blood pCO2 at Patient Temp 45 mmHg (35-46) Arterial Blood pO2 at Patient Temp 80 mmHg (75-108) Arterial Blood HCO3 29 mmol/L (21-28) Arterial Blood Base Excess 5 mmol/L (-3-3) FiO2 40/vent Review of Systems Review of Systems: Unable to obtain due to clinical condition Assessment and Plan Assessmemt and Plan Problems Medical Problems: (1) Acute respiratory failure with hypoxia Status: Acute (2) PRIYA (acute kidney injury) Status: Acute (3) Elevated troponin I level Status: Acute (4) Pulmonary emboli Status: Acute (5) Suspected COVID-19 virus infection Status: Acute Comment Review of Relevant I have reviewed the following items trino (where applicable) has been applied. Medications: Current Medications Medications (Trade) Dose Ordered Sig/Natalee Route PRN Reason Start Time Stop Time Status Last Admin Dose Admin Ringer's Solution 1,000 ml @ 30 mls/hr Q24H IV 08/02/20 07:00 08/02/20 18:59 08/02/20 07:53 Levofloxacin/ Dextrose 150 ml @ 100 mls/hr Q24H IV 08/02/20 09:00 08/02/20 08:04 Justifications for Admission Other Justification SHERLY DUKES MD Aug 02, 2020 13:05
--- NOTE | 2020-08-02 15:11 | NUR ---
SS following up with discharge planning. SS reviewed pt chart and discussed with pt RN. Pt is currently on the vent at 45%. Trach placement rescheduled for 08/06/2020. COVID19 negative. Pt on IV Levaquin and IV Daptomycin. Self pay. SS will continue to follow for discharge planning.
[2020-08-02] MEDS: fentaNYL HIGH DOSE PCA 55 ML IV PRN (15:50)
[2020-08-03] VITALS (23 sets, daily range): BP systolic 93–136; BP diastolic 56–86
[2020-08-03] MEDS: ASCORBIC ACID 500 MG TABLET PO SCH ×4 (00:10→17:02)
[2020-08-03] MEDS: PROPOFOL 100 ML IV PRN ×3 (04:42→17:02)
--- NOTE | 2020-08-03 07:44 | PDOC ---
[employer] PROGRESS NOTE Date of Service DOS: DATE: 08/03/20 TIME: 07:35 Chief Complaint Chief Complaint IMPRESSION Acute hypoxic respiratory failure requiring VENT SUPPORT Acute hypoxic respiratory failure/ARDS /pneumonia Bilateral perihilar and basilar opacities, progressed in the left base. 07-26 [facility]- Subsegmental bilateral PE Leukocytosis NSTEMI AKA Lactic acidosis Hyponatremia, RESOLVED hgb 6.5 07-27, transfused 1 unit prbc's hyp[okalemia, on replacement Plan: Appreciate pulmonology recommendations Continue current ventilatory support, currently on 70% and PEEP of 6, avoid increasing PEEP 2/2 risk of barotrauma Follow chest x-ray and ABG, vent management as per pulmonology Heparin has been transitioned to Xarelto Solu-Medrol 40 mg every 12 hours Appreciate ID recommendationscontinue Remdesivir and empiric antibiotics IV fluids Discussed with RN and SW. Antibiotics per ID-- off ABX, infectious disease following increasing leukocytosis has completed full course of remdesivir continue tube feeding for nutritional support 35 MIN CC TIME History of Present Illness History of Present Illness 08/03/2020 Patient seen in [place] [address] ICU. Still with low-grade fever. He remains on vent with FiO2 100%, PEEP 12. Plan for trach on Thursday, and PEG at some point after. 08/02/2020 Patient seen and evaluated in [facility] ICU. He is febrile this morning. Still intubated mechanically ventilated with FiO2 40 %, PEEP 6. Plans for tracheostomy today. 08/01/2020 Patient seen in [facility] ICU. Patient remains slightly febrile. Mechanically ventilated, FiO2 45%, PEEP 6. Tracheostomy unable to perform yesterday, general surgery to attempt again today. Discussed with RN. 07/31/2020 Patient still spiking fevers. Patient remains on vent, FiO2 45%, PEEP 6. Tracheostomy tentatively planned for today. 07/30/2020 Patient seen in [place] [address] ICU. He is febrile on vent, FiO2 45%, PEEP 6. Will attempt to speak with family about decision on trach and PEG tube. Discussed with RN. t max 102 f fio2 50% 07/21/2020 Patient no acute events reported overnight. Patient continues to require a lot of support from vent. Discussed with RN 09/19/2019 Patient continues to be pretty much the same , fio2 is at 70%, heparin 07/19/2020 Patient hypotensive today, we will follow recommendations from critical disabilities caregiver. Vent management as per pre owned sales consultant, no other complaints. 07/18/2020 Patient with no acute events reported overnight, fio2 is now at 75% PEEP of 6, Vent management as per pulmonary pre owned sales consultant slight increase in temperature noted over the lat 24 hours. Will continue to follow 07/17/2020 Patient with no acute events reported overnight, contineus to require an fio2 of 80%, continue with supportive measures. 07/16/2020 Patient with no acute events reported overnight, patient continues to require quite a bit of FiO2 at 80%. Vent management as per pre owned sales consultant, will place a call to family members after rounding. Discussed with RN 07/15/2020 Patient seen and examined bedside in the ICU. FiO2 80% PEEP of 6.pH 7.56, PCO2 32, PO2 56, HCO3 28. Will adjust respiratory rate accordingly to correct pH.> 50% time spent in patient chart, labs, and imaging review and in discussion with RN and JAVIER 07/14/2020 Patient seen and examined bedside. FiO2 65% and PEEP of 6 on vent. ABG: pH 7.26, PCO2 77, PO2 114, HCO3 34. We will adjust respiratory rate or tidal volume to titrate pH.> 50% time spent in patient chart, labs, and imaging review and in discussion with RN and JAVIER 07/13/2020 No acute events overnight. Patient examined bedside sedated and intubated. FiO2 70% PEEP of 6. Improved ABGs.> 50% time spent in patient chart, labs, and imaging review and in discussion with RN and JAVIER 07/12/2020 Patient seen and examined in the ICU. Sedated and intubated. FiO2 65, PEEP of 8 with improved oxygenation. pH 7.4, PCO2 48, PO2 94, HCO3 30. +500 cc fluid balance.> 50% time spent in patient chart, labs, and imaging review and in discussion with RN and JAVIER 07/11/2020 Patient seen and examined bedside in the ICU. Patient continues to be intubated and sedated. FiO2 75%, PEEP of 10. pH 7.40, PCO2 44, PO2 is 135, HCO3 26. Can likely decrease FiO2 due to improved oxygenation. +173 cc in the past 24 hours 07/10/2020 Patient seen and examined bedside in ICU. Patient is intubated and sedated. FiO2 90%, PEEP of 10, respiratory rate of 30. ABG: pH is 7.41, PCO2 42, PO2 113, HCO3 26. 07/09/2020 Patient seen and examined in the ICU. Intubated and sedated. Vent settings FiO2 90%, PEEP of 10, respiratory rate of 30. 07/05: Patient seen in ICU, still intubated and sedated. COVID-19 pending. Patient remains on heparin infusion. Discussed with RN, will try to have c entral line placed per anesthesia. 07/06: Patient seen in ICU. Still FiO2 100% on vent and sedated. COVID-19 positive. Continue heparin infusion, Zosyn, steroids. 07/07: Covid positive patient seen in ICU. On vent with FiO2 100%, PEEP 10. Continue remdesivir, steroids, Zosyn. Continue to monitor 07/08: Patient seen in [facility]id ICU. Still on vent with FiO2 100%, PEEP 10. Afebrile. No acute events overnight. Continue steroids, antibiotics, and remdesivir. Patient is 49-year-old male with past medical history of hypertension, who presents to the ED with complaints of worsening shortness of breath over the past 5 days. Associated sore throat, fatigue, and generalized weakness. Patient was reportedly tested for COVID-19 last Thursday, but he had negative test results. His symptoms acutely worsened yesterday. Upon arrival to the ER his oxygen saturation was 60% on room air. He was placed on BiPAP and admitted to the ICU. Patient was subsequently intubated due to worsening respiratory failure. Vitals/I&O Vitals/I&O: Vital Signs Date Time Temp Pulse Resp B/P (MAP) Pulse Ox O2 Delivery O2 Flow Rate FiO2 08/03/20 05:20 99 Ventilator 08/03/20 02:00 99.9 85 20 107/64 (78) 99.9 I & O 08/02/20 08/02/20 08/03/20 15:00 23:00 07:00 Intake Total 350 ml 200 ml 100 ml Output Total 450 ml 620 ml 140 ml Balance -100 ml -420 ml -40 ml Physical Exam Physical Exam: General intubated/sedated HEENT normocephalic atraumatic, OGT/ETT present LUNGS: Coarse breath sounds anteriorly HEART: S1-S2 no murmurs ABDOMEN: Nondistended, soft bowel sounds present Fernandez in place SKIN: No generalized rash Right upper extremity PICC line removed PIV Clean Neuro intubated/sedated Labs Labs: Laboratory Tests Test 08/02/20 08:00 O2 Saturation 95 % (92-99) Arterial Blood pH 7.44 (7.35-7.45) Arterial Blood pCO2 at Patient Temp 45 mmHg (35-46) Arterial Blood pO2 at Patient Temp 80 mmHg (75-108) Arterial Blood HCO3 29 mmol/L (21-28) Arterial Blood Base Excess 5 mmol/L (-3-3) FiO2 40/vent Review of Systems Review of Systems: Unable to obtain due to clinical condition Assessment and Plan Assessmemt and Plan Problems Medical Problems: (1) Acute respiratory failure with hypoxia Status: Acute (2) PRIYA (acute kidney injury) Status: Acute (3) Elevated troponin I level Status: Acute (4) Pulmonary emboli Status: Acute (5) Suspected COVID-19 virus infection Status: Acute Comment Review of Relevant I have reviewed the following items trino (where applicable) has been applied. Medications: Current Medications Medications (Trade) Dose Ordered Sig/Natalee Route PRN Reason Start Time Stop Time Status Last Admin Dose Admin Levofloxacin/ Dextrose 150 ml @ 100 mls/hr Q24H IV 08/02/20 09:00 08/02/20 08:04 Justifications for Admission Other Justification SHERLY DUKES MD Aug 03, 2020 07:44
--- NOTE | 2020-08-03 08:03 | PDOC ---
Infectious Disease Note Subjective Subjective Patient Intubated Fever+ ROS ROS no n/v/d/ Vital Sign Vital Signs Vital Signs Date Time Temp Pulse Resp B/P (MAP) Pulse Ox O2 Delivery O2 Flow Rate FiO2 08/03/20 07:57 Mechanical Ventilator 08/03/20 07:00 100.6 90 18 121/71 (88) 98 100.6 Physical Exam PHYSICAL EXAM General intubated/sedated HEENT normocephalic atraumatic, OGT/ETT present LUNGS: Coarse breath sounds anteriorly HEART: S1-S2 no murmurs ABDOMEN: Nondistended, soft bowel sounds present Fernandez in place SKIN: No generalized rash Right upper extremity PICC line removed PIV Clean Neuro intubated/sedated Labs Micro sputum enterobacter Objective Assessment Fever Leukocytosis improved COVID-19 positive. Status post remdesivir, steroids Acute hypoxic respiratory failure/ARDS /pneumonia Bilateral pulmonary emboli. Hypertension. Bacteremia 07/23 1/2 bottles staph hominis likely contaminant Repeat blood cultures staph capitis likely contaminant Enterobacter UTI and pneumonia Plan Plan of Care Cont dapto ,, levaquin RUE PICC line DC'd Fernandez changed 07/26 Follow-up repeat BC Monitor labs and cultures Critically ill likely drug fever D/W MONALISA LUCAS MD Aug 03, 2020 08:03
[2020-08-03] MEDS: fentaNYL HIGH DOSE PCA 55 ML IV PRN (08:07)
[2020-08-03] MEDS: ZINC SULFATE 220 MG CAPSULE. PO SCH (08:07)
[2020-08-03] MEDS: PANTOPRAZOLE IV PUSH 40 MG VIAL. IVP SCH (08:07)
[2020-08-03] MEDS: CHOLECALCIFEROL (VITAMIN D3) 5,000 UNIT CAPSULE PO SCH (08:07)
[2020-08-03] MEDS: MIDAZOLAM 100mg/100ml NS BAG 100 ML IV PRN ×2 (09:59→20:16)
[2020-08-03] MEDS: DAPTOmycin (GENERIC) IVPB 470 MG in IV NORMAL SALINE 50ML 50 ML IV SCH (10:14)
[2020-08-03] MEDS ORDERED: HEPARIN for IV BOLUS 10,000 UNIT/10 ML VIAL. IV PRN ×3 (10:45→11:00)
[2020-08-03] MEDS ORDERED: HEPARIN 25,000UTS/250ML PREMIX 250 ML IV PRN (10:45)
[2020-08-03] MEDS: HEPARIN for IV BOLUS 10,000 UNIT/10 ML VIAL. IV PRN (11:01)
[2020-08-03] MEDS: HEPARIN 25,000UTS/250ML PREMIX 250 ML IV PRN (11:05)
--- NOTE | 2020-08-03 11:11 | PDOC ---
PULMONARY PROGRESS NOTES DATE: 08/03/20 TIME: 11:10 Subjective PT. remains on vent support , 40% FiO2 and a PEEP of 6 Tracheostomy has been postponed until Thursday Fever overnight No other concerns from nursing Vitals Vital Signs Date Time Temp Pulse Resp B/P (MAP) Pulse Ox O2 Delivery O2 Flow Rate FiO2 08/03/20 11:00 100.2 87 18 109/64 (79) 98 Ventilator 100.2 Comments Patient seen during pandemic visual exam performed Intubated/sedated has accessory muscle use tachypneac RRR No obvious rash or edema Labs Laboratory Tests Test 08/02/20 06:11 08/02/20 08:00 White Blood Count 8.0 x10^3/uL (4.0-11.0) Red Blood Count 3.26 x10^6/uL (4.30-5.70) Hemoglobin 10.4 g/dL (13.0-17.5) Hematocrit 31.1 % (39.0-53.0) Mean Corpuscular Volume 95 fL (79-100) Mean Corpuscular Hemoglobin 32 pg (25-35) Mean Corpuscular Hemoglobin Concent 34 g/dL (31-37) Red Cell Distribution Width 15.6 % (11.5-14.5) Platelet Count 346 x10^3/uL (140-400) Neutrophils (%) (Auto) 77 % (31-73) Lymphocytes (%) (Auto) 12 % (24-48) Monocytes (%) (Auto) 7 % (0-9) Eosinophils (%) (Auto) 5 % (0-3) Basophils (%) (Auto) 0 % (0-3) Neutrophils # (Auto) 6.2 x10^3/uL (1.8-7.7) Lymphocytes # (Auto) 0.9 x10^3/uL (1.0-4.8) Monocytes # (Auto) 0.5 x10^3/uL (0.0-1.1) Eosinophils # (Auto) 0.4 x10^3/uL (0.0-0.7) Basophils # (Auto) 0.0 x10^3/uL (0.0-0.2) Prothrombin Time 16.7 SEC (11.7-14.0) Prothromb Time International Ratio 1.4 (0.8-1.1) Sodium Level 134 mmol/L (136-145) Potassium Level 3.6 mmol/L (3.5-5.1) Chloride Level 95 mmol/L (98-107) Carbon Dioxide Level 32 mmol/L (21-32) Anion Gap 7 (6-14) Blood Urea Nitrogen 9 mg/dL (8-26) Creatinine 0.3 mg/dL (0.7-1.3) Estimated GFR (Cockcroft-Gault) > 300.0 Glucose Level 88 mg/dL (70-99) Calcium Level 8.5 mg/dL (8.5-10.1) Creatine Kinase 58 U/L (39-308) O2 Saturation 95 % (92-99) Arterial Blood pH 7.44 (7.35-7.45) Arterial Blood pCO2 at Patient Temp 45 mmHg (35-46) Arterial Blood pO2 at Patient Temp 80 mmHg (75-108) Arterial Blood HCO3 29 mmol/L (21-28) Arterial Blood Base Excess 5 mmol/L (-3-3) FiO2 40/vent Comments CXR 08/02 Impression: 1. Decreased diffuse interstitial and alveolar opacities. 2. Moderate loculated left pleural effusion, unchanged. Impression . IMPRESSION: 1. Acute hypoxemic respiratory failure./ALI/ARDS due to COVID -19 2. Acute pulmonary embolism with cor pulmonale. 3. COVID-[address] chest revealing ground glass opacities. 5. Hypertension. 6. History of bronchitis. 7. Elevated troponin. 8. Acute kidney injury. 9. Leukocytosis. 10. Covid-19 positive 11. Possible loculated hydroPTX left base Plan . Continue current ventilatory support, FiO2 40% and a PEEP of 6, oxygenation improving does not tolerate off sedation. Tracheostomy has been postponed until Thursday off eliquis, consider IV heparin full dose till day of surgery reviewed chest x-ray and ABG, no changes at this time Follow cardiology recommendations Antibiotics per ID--currently on daptomycin and Levaquin Has completed full course of remdesivir Continue tube feeding for nutritional support, consult GI for PEG tube placement DVT/GI prophylaxis,Protonix Discussed with RN and RT Pt. is FULL CODE critically ill cc time 30 min no overlap NERY SALINAS MD Aug 03, 2020 11:11
--- NOTE | 2020-08-03 11:54 | PDOC ---
Date of Service: DATE: 08/03/20 TIME: 11:52 Objective: Objective: D/w nurse - no GI concerns, to restart OG feeds today. On Heparin which will held held on Sun night. Trach plans for Thu. Vital Signs: Vital Signs Date Time Temp Pulse Resp B/P (MAP) Pulse Ox O2 Delivery O2 Flow Rate FiO2 08/03/20 11:39 Mechanical Ventilator 08/03/20 11:18 99 08/03/20 11:00 100.2 87 18 109/64 (79) 100.2 Labs: BLOOD CULTURE Preliminary NO GROWTH AFTER 3 DAYS PE: GEN: intubated LUNGS: vent HEART: RRR ABD: non-distended NEURO/PSYCH: sedated A/P: COVID-19 infection - positive 07/03, negative 07/31 Resp failure/pneumonia/PEs Fever -- Tentative plans as above, will follow for possible PEG placement next week. Justicifation of Admission Dx: Justifications for Admission: Justification of Admission Dx: Yes LYNETTE CELIS Aug 03, 2020 11:54
--- NOTE | 2020-08-03 12:01 | NUR ---
Have reviewed and agree with documentation completed by human resource internship and made changes as needed/appropriate
--- NOTE | 2020-08-03 14:33 | NUR ---
SS following up with discharge planning. SS reviewed pt chart and discussed with pt RN. Pt is currently on the vent at 40%. COVID19 negative. Pt on IV Levaquin and IV Daptomycin. Full Code. Self pay. Trach rescheduled for 08/06/2020. SS will continue to follow for discharge planning.
[2020-08-03] MEDS: ACETAMINOPHEN 650 MG/20.3 ML SOLUTION. PEG PRN (17:40)
[2020-08-04] VITALS (24 sets, daily range): BP systolic 97–174; BP diastolic 58–90
[2020-08-04] MEDS: fentaNYL HIGH DOSE PCA 55 ML IV PRN ×2 (00:11→16:57)
[2020-08-04] MEDS: ASCORBIC ACID 500 MG TABLET PO SCH ×4 (00:11→17:59)
[2020-08-04] MEDS: PROPOFOL 100 ML IV PRN ×4 (00:12→17:59)
[2020-08-04] MEDS: HEPARIN 25,000UTS/250ML PREMIX 250 ML IV PRN ×2 (03:24→20:03)
[2020-08-04] MEDS: MIDAZOLAM 100mg/100ml NS BAG 100 ML IV PRN ×2 (05:57→14:15)
[2020-08-04] MEDS: CHOLECALCIFEROL (VITAMIN D3) 5,000 UNIT CAPSULE PO SCH (08:20)
[2020-08-04] MEDS: PANTOPRAZOLE IV PUSH 40 MG VIAL. IVP SCH (08:20)
[2020-08-04] MEDS: ZINC SULFATE 220 MG CAPSULE. PO SCH (08:21)
--- NOTE | 2020-08-04 08:56 | PDOC ---
PULMONARY PROGRESS NOTES DATE: 08/04/20 TIME: 08:55 Subjective PT. remains on vent support , 40% FiO2 and a PEEP of 6 sedated on versed propofol fentanyl large ett secretion Tracheostomy has been postponed until Thursday Fever overnight No other concerns from nursing Vitals Vital Signs Date Time Temp Pulse Resp B/P (MAP) Pulse Ox O2 Delivery O2 Flow Rate FiO2 08/04/20 08:00 100.2 84 18 100/63 (75) 100 Ventilator 100.2 Comments Patient seen during COVID-19 pandemic visual exam performed Intubated/sedated has accessory muscle use tachypneac RRR No obvious rash or edema Labs Laboratory Tests Test 08/03/20 16:50 08/03/20 23:15 Activated Partial Thromboplast Time 82 SEC (24-38) 75 SEC (24-38) Laboratory Tests Test 08/03/20 16:50 08/03/20 23:15 Activated Partial Thromboplast Time 82 SEC (24-38) 75 SEC (24-38) Comments CXR 08/02 Impression: 1. Decreased diffuse interstitial and alveolar opacities. 2. Moderate loculated left pleural effusion, unchanged. Impression . IMPRESSION: 1. Acute hypoxemic respiratory failure./ALI/ARDS due to COVID -19 2. Acute pulmonary embolism with cor pulmonale. 3. COVID-[address] chest revealing ground glass opacities. 5. Hypertension. 6. History of bronchitis. 7. Elevated troponin. 8. Acute kidney injury. 9. Leukocytosis. 10. Covid-19 positive 11. Possible loculated hydroPTX left base 12. fever ?tb Plan . Continue current ventilatory support, FiO2 40% and a PEEP of 6, oxygenation improving still febrile sputum for afb discussed w id does not tolerate off sedation. Tracheostomy Thursday off eliquis, consider IV heparin full dose till day of surgery reviewed chest x-ray and ABG, no changes at this time Follow cardiology recommendations Antibiotics per ID--currently on daptomycin and Levaquin Has completed full course of remdesivir Continue tube feeding for nutritional support, consult GI for PEG tube placement DVT/GI prophylaxis,Protonix Discussed with RN and RT Pt. is FULL CODE critically ill cc time 30 min no overlap TRACIE CAVAZOS MD Aug 04, 2020 08:56
[2020-08-04 09:35] LABS: BASE EXCESS ABG 6 mmol/L (-3-3); CORRECTED PCO2 ABG 43 mmHg; CORRECTED PH ABG 7.46; CORRECTED PO2 ABG 78 mmHg; HCO3 ABG 30 mmol/L (21-28); PCO2 ABG 41 mmHg (35-46); PO2 ABG 72 mmHg (75-108); SAT O2 ABG 94 % (92-99)
[2020-08-04] MEDS: ANTI-COAG MONITOR BY PHARMACY. MC PRN (09:48)
[2020-08-04] MEDS: DAPTOmycin (GENERIC) IVPB 470 MG in IV NORMAL SALINE 50ML 50 ML IV SCH (09:58)
[2020-08-04] MEDS: HEPARIN for IV BOLUS 10,000 UNIT/10 ML VIAL. IV PRN (10:56)
--- NOTE | 2020-08-04 12:17 | PDOC ---
Infectious Disease Note Subjective Subjective Patient Intubated Fever+ Vital Sign Vital Signs Vital Signs Date Time Temp Pulse Resp B/P (MAP) Pulse Ox O2 Delivery O2 Flow Rate FiO2 08/04/20 12:00 Mechanical Ventilator 08/04/20 12:00 101.3 92 18 107/66 (80) 100 101.3 Physical Exam PHYSICAL EXAM General intubated/sedated HEENT normocephalic atraumatic, OGT/ETT present LUNGS: Coarse breath sounds anteriorly HEART: S1-S2 no murmurs ABDOMEN: Nondistended, soft bowel sounds present Fernandez in place SKIN: No generalized rash Right upper extremity PICC line removed PIV Clean Neuro intubated/sedated Labs Lab Laboratory Tests Test 08/03/20 16:50 08/03/20 23:15 08/04/20 08:45 Activated Partial Thromboplast Time 82 SEC (24-38) 75 SEC (24-38) 49 SEC (24-38) Micro sputum enterobacter Objective Assessment Fever Leukocytosis improved COVID-19 positive. Status post remdesivir, steroids Acute hypoxic respiratory failure/ARDS /pneumonia Bilateral pulmonary emboli. Hypertension. Bacteremia 07/23 12 bottles staph hominis likely contaminant Repeat blood cultures staph capitis likely contaminant Enterobacter UTI and pneumonia Plan Plan of Care Cont dapto ,, levaquin RUE PICC line DC'd Fernandez changed 07/26 Follow-up repeat BC Monitor labs and cultures Critically ill likely drug fever D/W RN fever ? may have TB will start with tracheal aspirate for afb MONALISA ROTHMAN MD Aug 04, 2020 12:17
[2020-08-04] MEDS: ACETAMINOPHEN 650 MG/20.3 ML SOLUTION. PEG PRN (12:41)
--- NOTE | 2020-08-04 12:48 | PDOC ---
[employer] PROGRESS NOTE Date of Service DOS: DATE: 08/04/20 TIME: 12:46 Chief Complaint Chief Complaint IMPRESSION Acute hypoxic respiratory failure requiring VENT SUPPORT Acute hypoxic respiratory failure/ARDS /pneumonia Bilateral perihilar and basilar opacities, progressed in the left base. 07-26 [facility]- Subsegmental bilateral PE Leukocytosis NSTEMI AKA Lactic acidosis Hyponatremia, RESOLVED hgb 6.5 07-27, transfused 1 unit prbc's hyp[okalemia, on replacement Plan: Appreciate pulmonology recommendations Continue current ventilatory support, currently on 70% and PEEP of 6, avoid increasing PEEP 2/2 risk of barotrauma Follow chest x-ray and ABG, vent management as per pulmonology Heparin has been transitioned to Xarelto Solu-Medrol 40 mg every 12 hours Appreciate ID recommendationscontinue Remdesivir and empiric antibiotics IV fluids Discussed with RN and SW. Antibiotics per ID-- off ABX, infectious disease following increasing leukocytosis has completed full course of remdesivir continue tube feeding for nutritional support 35 MIN CC TIME History of Present Illness History of Present Illness 08/04/2020 Patient seen in [facility] ICU. Still with low-grade fevers. Mechanically ventilated, FiO2 40%, PEEP 6. No acute change, plan for trach Thursday. 08/03/2020 Patient seen in [place] [id number] ICU. Still with low-grade fever. He remains on vent with FiO2 100%, PEEP 12. Plan for trach on Thursday, and PEG at some point after. 08/02/2020 Patient seen and evaluated in [facility] ICU. He is febrile this morning. Still i ntubated mechanically ventilated with FiO2 40 %, PEEP 6. Plans for tracheostomy today. 08/01/2020 Patient seen in [facility] ICU. Patient remains slightly febrile. Mechanically ventilated, FiO2 45%, PEEP 6. Tracheostomy unable to perform yesterday, general surgery to attempt again today. Discussed with RN. 07/31/2020 Patient still spiking fevers. Patient remains on vent, FiO2 45%, PEEP 6. Tracheostomy tentatively planned for today. 07/30/2020 Patient seen in [place] [address] ICU. He is febrile on vent, FiO2 45%, PEEP 6. Will attempt to speak with family about decision on trach and PEG tube. Discussed with RN. t max 102 f fio2 50% 07/21/2020 Patient no acute events reported overnight. Patient continues to require a lot of support from vent. Discussed with RN 09/19/2019 Patient continues to be pretty much the same , fio2 is at 70%, heparin 07/19/2020 Patient hypotensive today, we will follow recommendations from critical career coach. Vent management as per presales consultant, no other complaints. 07/18/2020 Patient with no acute events reported overnight, fio2 is now at 75% PEEP of 6, Vent management as per pulmonary presales consultant slight increase in temperature noted over the lat 24 hours. Will continue to follow 07/17/2020 Patient with no acute events reported overnight, contineus to require an fio2 of 80%, continue with supportive measures. 07/16/2020 Patient with no acute events reported overnight, patient continues to require quite a bit of FiO2 at 80%. Vent management as per presales consultant, will place a call to family members after rounding. Discussed with RN 07/15/2020 Patient seen and examined bedside in the ICU. FiO2 80% PEEP of 6.pH 7.56, PCO2 32, PO2 56, HCO3 28. Will adjust respiratory rate accordingly to correct pH.> 50% time spent in patient chart, labs, and imaging review and in discussion with RN and JAVIER 07/14/2020 Patient seen and examined bedside. FiO2 65% and PEEP of 6 on vent. ABG: pH 7.26, PCO2 77, PO2 114, HCO3 34. We will adjust respiratory rate or tidal volume to titrate pH.> 50% time spent in patient chart, labs, and imaging review and in discussion with RN and JAVIER 07/13/2020 No acute events overnight. Patient examined bedside sedated and intubated. FiO2 70% PEEP of 6. Improved ABGs.> 50% time spent in patient chart, labs, and imaging review and in discussion with RN and JAVIER 07/12/2020 Patient seen and examined in the ICU. Sedated and intubated. FiO2 65, PEEP of 8 with improved oxygenation. pH 7.4, PCO2 48, PO2 94, HCO3 30. +500 cc fluid balance.> 50% time spent in patient chart, labs, and imaging review and in discussion with RN and JAVIER 07/11/2020 Patient seen and examined bedside in the ICU. Patient continues to be intubated and sedated. FiO2 75%, PEEP of 10. pH 7.40, PCO2 44, PO2 is 135, HCO3 26. Can likely decrease FiO2 due to improved oxygenation. +173 cc in the past 24 hours 07/10/2020 Patient seen and examined bedside in ICU. Patient is intubated and sedated. FiO2 90%, PEEP of 10, respiratory rate of 30. ABG: pH is 7.41, PCO2 42, PO2 113, HCO3 26. 07/09/2020 Patient seen and examined in the ICU. Intubated and sedated. Vent settings FiO2 90%, PEEP of 10, respiratory rate of 30. 07/05: Patient seen in ICU, still intubated and sedated. COVID-19 pending. Patient remains on heparin infusion. Discussed with RN, will try to have central line placed per anesthesia. 07/06: Patient seen in ICU. Still FiO2 100% on vent and sedated. COVID-19 positive. Continue heparin infusion, Zosyn, steroids. 07/07: Covid positive patient seen in ICU. On vent with FiO2 100%, PEEP 10. Continue remdesivir, steroids, Zosyn. Continue to monitor 07/08: Patient seen in [facility] ICU. Still on vent with FiO2 100%, PEEP 10. Afebrile. No acute events overnight. Continue steroids, antibiotics, and remdesivir. Patient is 49-year-old male with past medical history of hypertension, who presents to the ED with complaints of worsening shortness of breath over the past 5 days. Associated sore throat, fatigue, and generalized weakness. Patient was reportedly tested for COVID-19 last Thursday, but he had negative test results. His symptoms acutely worsened yesterday. Upon arrival to the ER his oxygen saturation was 60% on room air. He was placed on BiPAP and admitted to the ICU. Patient was subsequently intubated due to worsening respiratory failure. Vitals/I&O Vitals/I&O: Vital Signs Date Time Temp Pulse Resp B/P (MAP) Pulse Ox O2 Delivery O2 Flow Rate FiO2 08/04/20 12:00 Mechanical Ventilator 08/04/20 12:00 101.3 92 18 107/66 (80) 100 101.3 I & O 08/03/20 08/03/20 08/04/20 15:00 23:00 07:00 Intake Total 400 ml 736 ml 948.8 ml Output Total 245 ml 475 ml 850 ml Balance 155 ml 261 ml 98.8 ml Physical Exam Physical Exam: General intubated/sedated HEENT normocephalic atraumatic, OGT/ETT present LUNGS: Coarse breath sounds anteriorly HEART: S1-S2 no murmurs ABDOMEN: Nondistended, soft bowel sounds present Fernandez in place SKIN: No generalized rash Right upper extremity PICC line removed PIV Clean Neuro intubated/sedated Labs Labs: Laboratory Tests Test 08/03/20 16:50 08/03/20 23:15 08/04/20 08:45 Activated Partial Thromboplast Time 82 SEC (24-38) 75 SEC (24-38) 49 SEC (24-38) Review of Systems Review of Systems: Unable to obtain due to clinical condition Assessment and Plan Assessmemt and Plan Problems Medical Problems: (1) Acute respiratory failure with hypoxia Status: Acute (2) PRIYA (acute kidney injury) Status: Acute (3) Elevated troponin I level Status: Acute (4) Pulmonary emboli Status: Acute (5) Suspected COVID-19 virus infection Status: Acute Comment Review of Relevant I have reviewed the following items trino (where applicable) has been applied. Justifications for Admission Other Justification SHERLY DUKES MD Aug 04, 2020 12:47
[2020-08-04 16:46] LABS: FIO2 ABG 40
[2020-08-05] VITALS (24 sets, daily range): BP systolic 86–112; BP diastolic 51–69
[2020-08-05] MEDS: ASCORBIC ACID 500 MG TABLET PO SCH ×2 (00:03→06:07)
[2020-08-05] MEDS: PROPOFOL 100 ML IV PRN ×4 (00:04→21:00)
[2020-08-05] MEDS: MIDAZOLAM 100mg/100ml NS BAG 100 ML IV PRN ×3 (00:04→21:01)
--- NOTE | 2020-08-05 05:35 | PDOC ---
PULMONARY PROGRESS NOTES DATE: 08/05/20 TIME: 05:34 Subjective PT. remains on vent support , 40% FiO2 and a PEEP of 6 sedated on versed propofol fentanyl mod ett secretion Tracheostomy has been postponed until Thursday Fever overnight Vitals Vital Signs Date Time Temp Pulse Resp B/P (MAP) Pulse Ox O2 Delivery O2 Flow Rate FiO2 08/05/20 05:00 99.7 75 18 90/60 (70) 99 Ventilator 99.7 Comments Patient seen during visual exam performed Intubated/sedated has accessory muscle use tachypneac RRR No obvious rash or edema Labs Laboratory Tests Test 08/03/20 16:50 08/03/20 23:15 08/04/20 08:45 08/04/20 09:30 Activated Partial Thromboplast Time 82 SEC (24-38) 75 SEC (24-38) 49 SEC (24-38) O2 Saturation 94 % (92-99) Arterial Blood pH 7.48 (7.35-7.45) Arterial Blood pH (Temp corrected) 7.46 Arterial Blood pCO2 at Patient Temp 41 mmHg (35-46) Arterial Blood pCO2 (Temp correct) 43 mmHg Arterial Blood pO2 at Patient Temp 72 mmHg (75-108) Arterial Blood pO2 (Temp corrected) 78 mmHg Arterial Blood HCO3 30 mmol/L (21-28) Arterial Blood Base Excess 6 mmol/L (-3-3) FiO2 40 Test 08/04/20 16:40 08/04/20 23:15 Activated Partial Thromboplast Time 101 SEC (24-38) 91 SEC (24-38) Laboratory Tests Test 08/04/20 08:45 08/04/20 09:30 08/04/20 16:40 08/04/20 23:15 Activated Partial Thromboplast Time 49 SEC (24-38) 101 SEC (24-38) 91 SEC (24-38) O2 Saturation 94 % (92-99) Arterial Blood pH 7.48 (7.35-7.45) Arterial Blood pH (Temp corrected) 7.46 Arterial Blood pCO2 at Patient Temp 41 mmHg (35-46) Arterial Blood pCO2 (Temp correct) 43 mmHg Arterial Blood pO2 at Patient Temp 72 mmHg (75-108) Arterial Blood pO2 (Temp corrected) 78 mmHg Arterial Blood HCO3 30 mmol/L (21-28) Arterial Blood Base Excess 6 mmol/L (-3-3) FiO2 40 Comments CXR 08/02 reviewed 1. Decreased diffuse interstitial and alveolar opacities. 2. Moderate loculated left pleural effusion, unchanged. Impression . IMPRESSION: 1. Acute hypoxemic respiratory failure./ALI/ARDS due to COVID -19 2. Acute pulmonary embolism with cor pulmonale. 3. COVID-[address] chest revealing ground glass opacities. 5. Hypertension. 6. History of bronchitis. 7. Elevated troponin. 8. Acute kidney injury. 9. Leukocytosis. 10. Covid-19 positive 11. Possible loculated hydroPTX left base 12. fever ?tb Plan . Continue current ventilatory support, FiO2 40% and a PEEP of 6, oxygenation improving still febrile fu sputum for afb discussed w id does not tolerate off sedation. Tracheostomy Thursday off eliquis, consider IV heparin full dose till day of surgery reviewed chest x-ray and ABG, Follow cardiology recommendations Antibiotics per ID-- Has completed full course of remdesivir Continue tube feeding for nutritional support, consult GI for PEG tube placement DVT/GI prophylaxis,Protonix Discussed with RN and RT Pt. is FULL CODE critically ill cc time 30 min no overlap TRACIE CAVAZOS MD Aug 05, 2020 05:34
[2020-08-05] MEDS: ZINC SULFATE 220 MG CAPSULE. PO SCH (07:16)
[2020-08-05] MEDS: CHOLECALCIFEROL (VITAMIN D3) 5,000 UNIT CAPSULE PO SCH (07:16)
--- NOTE | 2020-08-05 09:04 | PDOC ---
[employer] PROGRESS NOTE Date of Service DOS: DATE: 08/05/20 TIME: 09:03 Chief Complaint Chief Complaint IMPRESSION Acute hypoxic respiratory failure requiring VENT SUPPORT Acute hypoxic respiratory failure/ARDS /pneumonia Bilateral perihilar and basilar opacities, progressed in the left base. 07-26 [facility]-19 Subsegmental bilateral PE Leukocytosis NSTEMI AKA Lactic acidosis Hyponatremia, RESOLVED hgb 6.5 07-27, transfused 1 unit prbc's hyp[okalemia, on replacement Plan: Appreciate pulmonology recommendations Continue current ventilatory support, currently on 70% and PEEP of 6, avoid increasing PEEP 2/2 risk of barotrauma Follow chest x-ray and ABG, vent management as per pulmonology Heparin has been transitioned to Xarelto Solu-Medrol 40 mg every 12 hours Appreciate ID recommendationscontinue Remdesivir and empiric antibiotics IV fluids Discussed with RN and SW. Antibiotics per ID-- off ABX, infectious disease following increasing leukocytosis has completed full course of remdesivir continue tube feeding for nutritional support 35 MIN CC TIME History of Present Illness History of Present Illness 08/05/2020 Patient seen and evaluated. No acute events, febrile overnight. Mechanically ventilated with FiO2 40%, PEEP 6. Plan for trach Thursday. 08/04/2020 Patient seen in [facility] ICU. Still with low-grade fevers. Mechanically ventilated, FiO2 40%, PEEP 6. No acute change, plan for trach Thursday. 08/03/2020 Patient seen in [place] [address] ICU. Still with low-grade fever. He remains on vent with FiO2 100%, PEEP 12. Plan for trach on Thursday, and PEG at some point after. 08/02/2020 Patient seen and evaluated in [facility] ICU. He is febrile this morning. Still intubated mechanically ventilated with FiO2 40 %, PEEP 6. Plans for tracheostomy today. 08/01/2020 Patient seen in [facility] ICU. Patient remains slightly febrile. Mechanically ventilated, FiO2 45%, PEEP 6. Tracheostomy unable to perform yesterday, general surgery to attempt again today. Discussed with RN. 07/31/2020 Patient still spiking fevers. Patient remains on vent, FiO2 45%, PEEP 6. Tracheostomy tentatively planned for today. 07/30/2020 Patient seen in [place] [address] ICU. He is febrile on vent, FiO2 45%, PEEP 6. Will attempt to speak with family about decision on trach and PEG tube. Discussed with RN. t max 102 f fio2 50% 07/21/2020 Patient no acute events reported overnight. Patient continues to require a lot of support from vent. Discussed with RN 09/19/2019 Patient continues to be pretty much the same , fio2 is at 70%, heparin 07/19/2020 Patient hypotensive today, we will follow recommendations from critical daycare worker. Vent management as per information systems consultant, no other complaints. 07/18/2020 Patient with no acute events reported overnight, fio2 is now at 75% PEEP of 6, Vent management as per pulmonary information systems consultant slight increase in temperature noted over the lat 24 hours. Will continue to follow 07/17/2020 Patient with no acute events reported overnight, contineus to require an fio2 of 80%, continue with supportive measures. 07/16/2020 Patient with no acute events reported overnight, patient continues to require quite a bit of FiO2 at 80%. Vent management as per information systems consultant, will place a call to family members after rounding. Discussed with RN 07/15/2020 Patient seen and examined bedside in the ICU. FiO2 80% PEEP of 6.pH 7.56, PCO2 32, PO2 56, HCO3 28. Will adjust respiratory rate accordingly to correct pH.> 50% time spent in patient chart, labs, and imaging review and in discussion with RN and JAVIER 07/14/2020 Patient seen and examined bedside. FiO2 65% and PEEP of 6 on vent. ABG: pH 7.26, PCO2 77, PO2 114, HCO3 34. We will adjust respiratory rate or tidal volume to titrate pH.> 50% time spent in patient chart, labs, and imaging review and in discussion with RN and JAVIER 07/13/2020 No acute events overnight. Patient examined bedside sedated and intubated. FiO2 70% PEEP of 6. Improved ABGs.> 50% time spent in patient chart, labs, and imaging review and in discussion with RN and JAVIER 07/12/2020 Patient seen and examined in the ICU. Sedated and intubated. FiO2 65, PEEP of 8 with improved oxygenation. pH 7.4, PCO2 48, PO2 94, HCO3 30. +500 cc fluid balance.> 50% time spent in patient chart, labs, and imaging review and in discussion with RN and JAVIER 07/11/2020 Patient seen and examined bedside in the ICU. Patient continues to be intubated and sedated. FiO2 75%, PEEP of 10. pH 7.40, PCO2 44, PO2 is 135, HCO3 26. Can likely decrease FiO2 due to improved oxygenation. +173 cc in the past 24 hours 07/10/2020 Patient seen and examined bedside in ICU. Patient is intubated and sedated. FiO2 90%, PEEP of 10, respiratory rate of 30. ABG: pH is 7.41, PCO2 42, PO2 113, HCO3 26. 07/09/2020 Patient seen and examined in the ICU. Intubated and sedated. Vent settings FiO2 90%, PEEP of 10, respiratory rate of 30. 07/05: Patient seen in ICU, still intubated and sedated. COVID-19 pending. Patient remains on heparin infusion. Discussed with RN, will try to have central line placed per anesthesia. 07/06: Patient seen in ICU. Still FiO2 100% on vent and sedated. COVID-19 positive. Continue heparin infusion, Zosyn, steroids. 07/07: Covid positive patient seen in ICU. On vent with FiO2 100%, PEEP 10. Continue remdesivir, steroids, Zosyn. Continue to monitor 07/08: Patient seen in [facility] ICU. Still on vent with FiO2 100%, PEEP 10. Afebrile. No acute events overnight. Continue steroids, antibiotics, and remdesivir. Patient is 49-year-old male with past medical history of hypertension, who presents to the ED with complaints of worsening shortness of breath over the past 5 days. Associated sore throat, fatigue, and generalized weakness. Patient was reportedly tested for COVID-19 last Thursday, but he had negative test results. His symptoms acutely worsened yesterday. Upon arrival to the ER his oxygen saturation was 60% on room air. He was placed on BiPAP and admitted to the ICU. Patient was subsequently intubated due to worsening respiratory failure. Vitals/I&O Vitals/I&O: Vital Signs Date Time Temp Pulse Resp B/P (MAP) Pulse Ox O2 Delivery O2 Flow Rate FiO2 08/05/20 09:00 100.2 85 18 105/63 (77) 100 Ventilator 100.2 I & O 08/04/20 08/04/20 08/05/20 15:00 23:00 07:00 Intake Total 400 ml 1287 ml 1373.0 ml Output Total 950 ml 750 ml 900 ml Balance -550 ml 537 ml 473.0 ml Physical Exam Physical Exam: General intubated/sedated HEENT normocephalic atraumatic, OGT/ETT present LUNGS: Coarse breath sounds anteriorly HEART: S1-S2 no murmurs ABDOMEN: Nondistended, soft bowel sounds present Fernandez in place SKIN: No generalized rash Right upper extremity PICC line removed PIV Clean Neuro intubated/sedated Labs Labs: Laboratory Tests Test 08/04/20 09:30 08/04/20 16:40 08/04/20 23:15 O2 Saturation 94 % (92-99) Arterial Blood pH 7.48 (7.35-7.45) Arterial Blood pH (Temp corrected) 7.46 Arterial Blood pCO2 at Patient Temp 41 mmHg (35-46) Arterial Blood pCO2 (Temp correct) 43 mmHg Arterial Blood pO2 at Patient Temp 72 mmHg (75-108) Arterial Blood pO2 (Temp corrected) 78 mmHg Arterial Blood HCO3 30 mmol/L (21-28) Arterial Blood Base Excess 6 mmol/L (-3-3) FiO2 40 Activated Partial Thromboplast Time 101 SEC (24-38) 91 SEC (24-38) Review of Systems Review of Systems: Unable to obtain due to clinical condition Assessment and Plan Assessmemt and Plan Problems Medical Problems: (1) Acute respiratory failure with hypoxia Status: Acute (2) PRIYA (acute kidney injury) Status: Acute (3) Elevated troponin I level Status: Acute (4) Pulmonary emboli Status: Acute (5) Suspected COVID-19 virus infection Status: Acute Comment Review of Relevant I have reviewed the following items trino (where applicable) has been applied. Justifications for Admission Other Justification SHERLY DUKES MD Aug 05, 2020 09:04
--- NOTE | 2020-08-05 09:17 | PDOC ---
NATE SANTIAGO [employer]/TRACK AND FIELD COACH 08/05/20 0917: SURGICAL PROGRESS NOTE DATE: 08/05/20 TIME: 09:16 Subjective plans for trach tomorrow d/w nursing heparin to stop at [place] Vital Signs Vital Signs Date Time Temp Pulse Resp B/P (MAP) Pulse Ox O2 Delivery O2 Flow Rate FiO2 08/05/20 09:00 100.2 85 18 105/63 (77) 100 Ventilator 100.2 I&O Intake and Output 08/05/20 07:00 Intake Total 3060.0 ml Output Total 2600 ml Balance 460.0 ml Intake Oral 0 ml IV Total 1261.0 ml Tube Feeding 1499 ml Other 300 ml Output Urine Total 2600 ml Gastric Drainage Total 0 ml # Bowel Movements 1 General: Other (sedated ) Lungs: Other (mech vent) Labs Laboratory Tests Test 08/03/20 16:50 08/03/20 23:15 08/04/20 08:45 08/04/20 09:30 Activated Partial Thromboplast Time 82 SEC (24-38) 75 SEC (24-38) 49 SEC (24-38) O2 Saturation 94 % (92-99) Arterial Blood pH 7.48 (7.35-7.45) Arterial Blood pH (Temp corrected) 7.46 Arterial Blood pCO2 at Patient Temp 41 mmHg (35-46) Arterial Blood pCO2 (Temp correct) 43 mmHg Arterial Blood pO2 at Patient Temp 72 mmHg (75-108) Arterial Blood pO2 (Temp corrected) 78 mmHg Arterial Blood HCO3 30 mmol/L (21-28) Arterial Blood Base Excess 6 mmol/L (-3-3) FiO2 40 Test 08/04/20 16:40 08/04/20 23:15 Activated Partial Thromboplast Time 101 SEC (24-38) 91 SEC (24-38) Laboratory Tests Test 08/04/20 09:30 08/04/20 16:40 08/04/20 23:15 O2 Saturation 94 % (92-99) Arterial Blood pH 7.48 (7.35-7.45) Arterial Blood pH (Temp corrected) 7.46 Arterial Blood pCO2 at Patient Temp 41 mmHg (35-46) Arterial Blood pCO2 (Temp correct) 43 mmHg Arterial Blood pO2 at Patient Temp 72 mmHg (75-108) Arterial Blood pO2 (Temp corrected) 78 mmHg Arterial Blood HCO3 30 mmol/L (21-28) Arterial Blood Base Excess 6 mmol/L (-3-3) FiO2 40 Activated Partial Thromboplast Time 101 SEC (24-38) 91 SEC (24-38) Problem List Problems Medical Problems: (1) Acute respiratory failure with hypoxia Status: Acute (2) PRIYA (acute kidney injury) Status: Acute (3) Elevated troponin I level Status: Acute (4) Pulmonary emboli Status: Acute (5) Suspected COVID-19 virus infection Status: Acute Assessment/Plan hold TF and Heparin at [place] trach in AM Justicifation of Admission Dx: Justifications for Admission: Justification of Admission Dx: Yes BRETT MCGEE MD 08/05/201915: SURGICAL PROGRESS NOTE Assessment/Plan Pt seen and examined. Agree with Ms. Santiago's note Plan trach in AM. NATE SANTIAGO APRN Aug 05, 2020 09:17 BRETT MCGEE MD Aug 05, 2020 19:16
[2020-08-05] MEDS: fentaNYL HIGH DOSE PCA 55 ML IV PRN (09:21)
[2020-08-05] MEDS: DAPTOmycin (GENERIC) IVPB 470 MG in IV NORMAL SALINE 50ML 50 ML IV SCH (09:24)
[2020-08-05] MEDS: ANTI-COAG MONITOR BY PHARMACY. MC PRN (11:05)
--- NOTE | 2020-08-05 11:19 | PDOC ---
Infectious Disease Note Subjective Subjective Patient Intubated Fever+ ROS ROS No nausea vomiting diarrhea Vital Sign Vital Signs Vital Signs Date Time Temp Pulse Resp B/P (MAP) Pulse Ox O2 Delivery O2 Flow Rate FiO2 08/05/20 11:00 101.1 94 18 110/68 (82) 100 Ventilator 101.1 Physical Exam PHYSICAL EXAM General intubated/sedated HEENT normocephalic atraumatic, OGT/ETT present LUNGS: Coarse breath sounds anteriorly HEART: S1-S2 no murmurs ABDOMEN: Nondistended, soft bowel sounds present Fernandez in place SKIN: No generalized rash Right upper extremity PICC line removed PIV Clean Neuro intubated/sedated Labs Lab Laboratory Tests Test 08/04/20 16:40 08/04/20 23:15 Activated Partial Thromboplast Time 101 SEC (24-38) 91 SEC (24-38) Micro sputum enterobacter Objective Assessment Fever Leukocytosis improved COVID-19 positive. Status post remdesivir, steroids Acute hypoxic respiratory failure/ARDS /pneumonia Bilateral pulmonary emboli. Hypertension. Bacteremia 07/23 08/25 bottles staph hominis likely contaminant Repeat blood cultures staph capitis likely contaminant Enterobacter UTI and pneumonia Plan Plan of Care DC dapto ,, levaquin RUE PICC line DC'd Fernandez changed 07/26 Follow-up repeat BC Monitor labs and cultures D/W RN fever ? may have TB will start with tracheal aspirate for afb MONALISA ROTHMAN MD Aug 05, 2020 11:19
[2020-08-05] MEDS: ACETAMINOPHEN 650 MG/20.3 ML SOLUTION. PEG PRN (13:06)
[2020-08-05] MEDS: HEPARIN 25,000UTS/250ML PREMIX 250 ML IV PRN (15:09)
[2020-08-06] VITALS (24 sets, daily range): BP systolic 85–124; BP diastolic 44–78
[2020-08-06] MEDS: fentaNYL HIGH DOSE PCA 55 ML IV PRN ×2 (04:14→22:11)
[2020-08-06] MEDS: PROPOFOL 100 ML IV PRN ×3 (04:36→16:19)
[2020-08-06] MEDS ORDERED: BUPIVACAINE-EPI 0.5%-1:200000 MPF 30 ML VIAL. INJ ONE (06:30)
[2020-08-06 06:44] LABS: BASO # 0.1 x10^3/uL (0.0-0.2); BASO % 1 % (0-3); EOS # 0.2 x10^3/uL (0.0-0.7); EOS % 3 % (0-3); HEMATOCRIT 32.2 % (39.0-53.0); HEMOGLOBIN 10.9 g/dL (13.0-17.5); LYMPH # 1.5 x10^3/uL (1.0-4.8); LYMPH % 19 % (24-48); MEAN CORPUSCULAR HEMOGLOBIN 32 pg (25-35); MEAN CORPUSCULAR HGB CONC 34 g/dL (31-37); MEAN CORPUSCULAR VOLUME 95 fL (79-100); MONO # 0.8 x10^3/uL (0.0-1.1); MONO % 10 % (0-9); NEUT # 5.4 x10^3/uL (1.8-7.7); NEUT % 68 % (31-73); PLATELET COUNT 470 x10^3/uL (140-400); RED BLOOD COUNT 3.38 x10^6/uL (4.30-5.70); RED CELL DISTRIBUTION WIDTH 15.6 % (11.5-14.5); WHITE BLOOD COUNT 7.9 x10^3/uL (4.0-11.0)
[2020-08-06] MEDS: ZINC SULFATE 220 MG CAPSULE. PO SCH (06:54)
[2020-08-06] MEDS: CHOLECALCIFEROL (VITAMIN D3) 5,000 UNIT CAPSULE PO SCH (06:55)
[2020-08-06] MEDS ORDERED: PROCHLORPERAZINE 10 MG/2 ML VIAL. IV PRN (07:00)
[2020-08-06] MEDS: PANTOPRAZOLE IV PUSH 40 MG VIAL. IVP SCH (07:00)
[2020-08-06] MEDS ORDERED: HYDROmorphone 2 MG/ML VIAL IV PRN (07:00)
[2020-08-06] MEDS ORDERED: ONDANSETRON PF 4 MG/2 ML VIAL. IV PRN (07:00)
[2020-08-06] MEDS ORDERED: MORPHINE SULFATE 2 MG/ML VIAL. IV PRN (07:00)
[2020-08-06] MEDS ORDERED: IV RINGERS,LACTATED 1000ML 1,000 ML IV SCH (07:00)
[2020-08-06] MEDS ORDERED: LIDOCAINE 1% PF 2 ML VIAL. ID PRN (07:00)
[2020-08-06] MEDS ORDERED: fentaNYL PF VIAL 100 MCG/2 ML VIAL IV PRN ×2 (07:00)
[2020-08-06 07:03] LABS: CALCIUM 8.9 mg/dL (8.5-10.1); CREATININE 0.6 mg/dL (0.7-1.3); GFR 142.6; POTASSIUM 3.4 mmol/L (3.5-5.1)
[2020-08-06 07:07] LABS: PROTHROMBIN TIME PATIENT 16.4 SEC (11.7-14.0)
--- NOTE | 2020-08-06 07:32 | PDOC ---
Infectious Disease Note Subjective Subjective Patient Intubated Fever+ ROS ROS No nausea vomiting diarrhea Vital Sign Vital Signs Vital Signs Date Time Temp Pulse Resp B/P (MAP) Pulse Ox O2 Delivery O2 Flow Rate FiO2 08/06/20 06:00 99.8 81 18 108/66 (80) 100 Ventilator 99.8 Physical Exam PHYSICAL EXAM General intubated/sedated HEENT normocephalic atraumatic, OGT/ETT present LUNGS: Coarse breath sounds anteriorly HEART: S1-S2 no murmurs ABDOMEN: Nondistended, soft bowel sounds present Fernandez in place SKIN: No generalized rash Right upper extremity PICC line removed PIV Clean Neuro intubated/sedated Labs Lab Laboratory Tests Test 08/05/20 10:15 08/06/20 05:50 Activated Partial Thromboplast Time 77 SEC (24-38) White Blood Count 7.9 x10^3/uL (4.0-11.0) Red Blood Count 3.38 x10^6/uL (4.30-5.70) Hemoglobin 10.9 g/dL (13.0-17.5) Hematocrit 32.2 % (39.0-53.0) Mean Corpuscular Volume 95 fL (79-100) Mean Corpuscular Hemoglobin 32 pg (25-35) Mean Corpuscular Hemoglobin Concent 34 g/dL (31-37) Red Cell Distribution Width 15.6 % (11.5-14.5) Platelet Count 470 x10^3/uL (140-400) Neutrophils (%) (Auto) 68 % (31-73) Lymphocytes (%) (Auto) 19 % (24-48) Monocytes (%) (Auto) 10 % (0-9) Eosinophils (%) (Auto) 3 % (0-3) Basophils (%) (Auto) 1 % (0-3) Neutrophils # (Auto) 5.4 x10^3/uL (1.8-7.7) Lymphocytes # (Auto) 1.5 x10^3/uL (1.0-4.8) Monocytes # (Auto) 0.8 x10^3/uL (0.0-1.1) Eosinophils # (Auto) 0.2 x10^3/uL (0.0-0.7) Basophils # (Auto) 0.1 x10^3/uL (0.0-0.2) Prothrombin Time 16.4 SEC (11.7-14.0) Prothromb Time International Ratio 1.4 (0.8-1.1) Sodium Level 137 mmol/L (136-145) Potassium Level 3.4 mmol/L (3.5-5.1) Chloride Level 97 mmol/L (98-107) Carbon Dioxide Level 36 mmol/L (21-32) Anion Gap 4 (6-14) Blood Urea Nitrogen 8 mg/dL (8-26) Creatinine 0.6 mg/dL (0.7-1.3) Estimated GFR (Cockcroft-Gault) 142.6 Glucose Level 107 mg/dL (70-99) Calcium Level 8.9 mg/dL (8.5-10.1) Micro sputum enterobacter Objective Assessment Fever Leukocytosis improved COVID-19 positive. Status post remdesivir, steroids Acute hypoxic respiratory failure/ARDS /pneumonia Bilateral pulmonary emboli. Hypertension. Bacteremia 07/23/ bottles staph hominis likely contaminant Repeat blood cultures staph capitis likely contaminant Enterobacter UTI and pneumonia Plan Plan of Care RUE PICC line DC'd Jim changed 07/26 Follow-up repeat BC Monitor labs and cultures D/W RN fever ? may have TB tracheal aspirate for afb MONALISA ROTHMAN MD Aug 06, 2020 07:32
[2020-08-06] MEDS: MIDAZOLAM 100mg/100ml NS BAG 100 ML IV PRN ×2 (07:44→14:45)
[2020-08-06 08:13] LABS: BASE EXCESS ABG 7 mmol/L (-3-3); HCO3 ABG 32 mmol/L (21-28); PCO2 ABG 44 mmHg (35-46); PO2 ABG 93 mmHg (75-108); SAT O2 ABG 97 % (92-99)
--- NOTE | 2020-08-06 08:34 | PDOC ---
PULMONARY PROGRESS NOTE Diagnosis PROBLEM LIST Problems Medical Problems: (1) Acute respiratory failure with hypoxia Status: Acute (2) PRIYA (acute kidney injury) Status: Acute (3) Elevated troponin I level Status: Acute (4) Pulmonary emboli Status: Acute (5) Suspected COVID-19 virus infection Status: Acute Objective Vital Signs Date Time Temp Pulse Resp B/P (MAP) Pulse Ox O2 Delivery O2 Flow Rate FiO2 08/06/20 08:00 99.9 80 18 85/63 (70) 100 Ventilator 99.9 Intake and Output 08/06/20 06:59 Intake Total 2061.5 ml Output Total 2300 ml Balance -238.5 ml Intake Oral 0 ml IV Total 994.5 ml Tube Feeding 867 ml Other 200 ml Output Urine Total 2300 ml Gastric Drainage Total 0 ml VITALS/I&O Vital Sign - Last 24 Hours 08/05/20 08/05/20 08/05/20 08/05/20 09:00 10:00 11:00 11:22 Temp 100.2 100.6 101.1 100.2 100.6 101.1 Pulse 85 85 94 Resp 18 18 18 B/P (MAP) 105/63 (77) 96/58 (71) 110/68 (82) Pulse Ox 100 100 100 100 O2 Delivery Ventilator Ventilator Ventilator Ventilator 08/05/20 08/05/20 08/05/20 08/05/20 11:39 12:00 13:00 14:00 Temp 101.5 101.7 101.5 101.5 101.7 101.5 Pulse 95 96 93 Resp 18 18 18 B/P (MAP) 112/69 (83) 108/62 (77) 95/62 (73) Pulse Ox 100 100 100 O2 Delivery Mechanical Ventilator Ventilator Ventilator Ventilator 08/05/20 08/05/20 08/05/20 08/05/20 15:00 15:44 16:00 16:26 Temp 101.1 100.6 101.1 100.6 Pulse 85 84 Resp 18 18 B/P (MAP) 97/57 (70) 86/52 (63) Pulse Ox 100 100 100 O2 Delivery Ventilator Mechanical Ventilator Ventilator Ventilator 08/05/20 08/05/20 08/05/20 08/05/20 17:00 18:00 19:00 20:00 Temp 100.0 100.0 99.8 100.0 100.0 99.8 Pulse 85 82 89 Resp 18 18 18 B/P (MAP) 91/55 (67) 100/61 (74) 104/68 (80) Pulse Ox 100 100 99 O2 Delivery Ventilator Ventilator Ventilator Mechanical Ventilator 08/05/20 08/05/20 08/05/20 08/05/20 20:00 20:37 21:00 22:00 Temp 100.4 100.6 99.9 100.4 100.6 99.9 Pulse 85 86 81 Resp 18 18 18 B/P (MAP) 106/66 (79) 100/61 (74) 97/51 (66) Pulse Ox 98 100 98 100 O2 Delivery Ventilator Ventilator Ventilator Ventilator 08/05/20 08/06/20 08/06/20 08/06/20 23:00 00:00 00:00 00:52 Temp 100.0 100.3 100.0 100.3 Pulse 77 78 Resp 18 18 B/P (MAP) 88/55 (66) 85/44 (58) Pulse Ox 99 99 100 O2 Delivery Ventilator Ventilator Mechanical Ventilator Ventilator 08/06/20 08/06/20 08/06/20 08/06/20 01:00 02:00 03:00 04:00 Temp 100.5 99.5 99.9 100.5 99.5 99.9 Pulse 75 73 72 Resp 18 18 18 B/P (MAP) 100/66 (77) 91/60 (70) 90/58 (69) Pulse Ox 99 99 99 O2 Delivery Ventilator Ventilator Ventilator Mechanical Ventilator 08/06/20 08/06/20 08/06/20 08/06/20 04:00 04:14 04:52 05:00 Temp 99.5 99.3 99.5 99.3 Pulse 72 81 Resp 18 18 18 18 B/P (MAP) 99/58 (72) 112/73 (86) Pulse Ox 100 100 99 100 O2 Delivery Ventilator Ventilator Ventilator Ventilator 08/06/20 08/06/20 08/06/20 08/06/20 05:11 06:00 07:00 07:48 Temp 99.8 100.0 99.8 100.0 Pulse 81 77 Resp 18 18 B/P (MAP) 108/66 (80) 89/58 (68) Pulse Ox 100 100 100 100 O2 Delivery Ventilator Ventilator Ventilator Ventilator 08/06/20 08/06/20 07:56 08:00 Temp 99.9 99.9 Pulse 80 Resp 18 B/P (MAP) 85/63 (70) Pulse Ox 100 O2 Delivery Mechanical Ventilator Ventilator Intake and Output 08/05/20 08/05/20 08/06/20 14:59 22:59 06:59 Intake Total 400 ml 1415 ml 246.5 ml Output Total 625 ml 625 ml 1050 ml Balance -225 ml 790 ml -803.5 ml Review of Relevant I have reviewed the following items trino (where applicable) has been applied. Labs Laboratory Tests Test 08/04/20 08:45 08/04/20 09:30 08/04/20 16:40 08/04/20 23:15 Activated Partial Thromboplast Time 49 SEC (24-38) 101 SEC (24-38) 91 SEC (24-38) O2 Saturation 94 % (92-99) Arterial Blood pH 7.48 (7.35-7.45) Arterial Blood pH (Temp corrected) 7.46 Arterial Blood pCO2 at Patient Temp 41 mmHg (35-46) Arterial Blood pCO2 (Temp correct) 43 mmHg Arterial Blood pO2 at Patient Temp 72 mmHg (75-108) Arterial Blood pO2 (Temp corrected) 78 mmHg Arterial Blood HCO3 30 mmol/L (21-28) Arterial Blood Base Excess 6 mmol/L (-3-3) FiO2 40 Test 08/05/20 10:15 08/06/20 05:50 Activated Partial Thromboplast Time 77 SEC (24-38) White Blood Count 7.9 x10^3/uL (4.0-11.0) Red Blood Count 3.38 x10^6/uL (4.30-5.70) Hemoglobin 10.9 g/dL (13.0-17.5) Hematocrit 32.2 % (39.0-53.0) Mean Corpuscular Volume 95 fL (79-100) Mean Corpuscular Hemoglobin 32 pg (25-35) Mean Corpuscular Hemoglobin Concent 34 g/dL (31-37) Red Cell Distribution Width 15.6 % (11.5-14.5) Platelet Count 470 x10^3/uL (140-400) Neutrophils (%) (Auto) 68 % (31-73) Lymphocytes (%) (Auto) 19 % (24-48) Monocytes (%) (Auto) 10 % (0-9) Eosinophils (%) (Auto) 3 % (0-3) Basophils (%) (Auto) 1 % (0-3) Neutrophils # (Auto) 5.4 x10^3/uL (1.8-7.7) Lymphocytes # (Auto) 1.5 x10^3/uL (1.0-4.8) Monocytes # (Auto) 0.8 x10^3/uL (0.0-1.1) Eosinophils # (Auto) 0.2 x10^3/uL (0.0-0.7) Basophils # (Auto) 0.1 x10^3/uL (0.0-0.2) Prothrombin Time 16.4 SEC (11.7-14.0) Prothromb Time International Ratio 1.4 (0.8-1.1) Sodium Level 137 mmol/L (136-145) Potassium Level 3.4 mmol/L (3.5-5.1) Chloride Level 97 mmol/L (98-107) Carbon Dioxide Level 36 mmol/L (21-32) Anion Gap 4 (6-14) Blood Urea Nitrogen 8 mg/dL (8-26) Creatinine 0.6 mg/dL (0.7-1.3) Estimated GFR (Cockcroft-Gault) 142.6 Glucose Level 107 mg/dL (70-99) Calcium Level 8.9 mg/dL (8.5-10.1) Laboratory Tests Test 08/05/20 10:15 08/06/20 05:50 Activated Partial Thromboplast Time 77 SEC (24-38) White Blood Count 7.9 x10^3/uL (4.0-11.0) Red Blood Count 3.38 x10^6/uL (4.30-5.70) Hemoglobin 10.9 g/dL (13.0-17.5) Hematocrit 32.2 % (39.0-53.0) Mean Corpuscular Volume 95 fL (79-100) Mean Corpuscular Hemoglobin 32 pg (25-35) Mean Corpuscular Hemoglobin Concent 34 g/dL (31-37) Red Cell Distribution Width 15.6 % (11.5-14.5) Platelet Count 470 x10^3/uL (140-400) Neutrophils (%) (Auto) 68 % (31-73) Lymphocytes (%) (Auto) 19 % (24-48) Monocytes (%) (Auto) 10 % (0-9) Eosinophils (%) (Auto) 3 % (0-3) Basophils (%) (Auto) 1 % (0-3) Neutrophils # (Auto) 5.4 x10^3/uL (1.8-7.7) Lymphocytes # (Auto) 1.5 x10^3/uL (1.0-4.8) Monocytes # (Auto) 0.8 x10^3/uL (0.0-1.1) Eosinophils # (Auto) 0.2 x10^3/uL (0.0-0.7) Basophils # (Auto) 0.1 x10^3/uL (0.0-0.2) Prothrombin Time 16.4 SEC (11.7-14.0) Prothromb Time International Ratio 1.4 (0.8-1.1) Sodium Level 137 mmol/L (136-145) Potassium Level 3.4 mmol/L (3.5-5.1) Chloride Level 97 mmol/L (98-107) Carbon Dioxide Level 36 mmol/L (21-32) Anion Gap 4 (6-14) Blood Urea Nitrogen 8 mg/dL (8-26) Creatinine 0.6 mg/dL (0.7-1.3) Estimated GFR (Cockcroft-Gault) 142.6 Glucose Level 107 mg/dL (70-99) Calcium Level 8.9 mg/dL (8.5-10.1) Microbiology 07/31/20 Blood Culture - Final, Complete NO GROWTH AFTER 5 DAYS 07/29/20 Gram Stain Evaluation - Final, Complete 07/29/20 Respiratory Culture - Final, Complete 07/29/20 Antimicrobic Susceptibility - Final, Complete 07/23/20 Urine Culture - Final, Complete 07/23/20 Antimicrobic Susceptibility - Final, Complete Medications Current Medications Ceftriaxone Sodium (Rocephin) 1 gm 1X ONCE IVP Last administered on 07/03/20at 20:11; Start 07/03/20 at 19:15; Stop 07/03/20 at 19:19; Status DC Azithromycin (Zithromax) 500 mg 1X ONCE PO Last administered on 07/03/20at 20:11; Start 07/03/20 at 19:15; Stop 07/03/20 at 19:19; Status DC Sodium Chloride 1,000 ml @ 1,000 mls/hr 1X ONCE IV Last administered on 07/03/20at 20:11; Start 07/03/20 at 19:15; Stop 07/03/20 at 20:14; Status DC Sodium Chloride 1,000 ml @ 1,000 mls/hr 1X ONCE IV Last administered on 07/03/20at 19:15; Start 07/03/20 at 19:15; Stop 07/03/20 at 20:14; Status DC Iohexol (Omnipaque 350 Mg/ml) 90 ml 1X ONCE IV Last administered on 07/03/20at 21:00; Start 07/03/20 at 20:45; Stop 07/03/20 at 20:46; Status DC Info (CONTRAST GIVEN -- Rx MONITORING) 1 each PRN DAILY PRN MC SEE COMMENTS; Start 07/03/20 at 20:45; Stop 07/05/20 at 20:44; Status DC Enoxaparin Sodium (Lovenox 150mg Syringe) 150 mg 1X ONCE SQ Last administered on 07/03/20at 22:45; Start 07/03/20 at 23:00; Stop 07/03/20 at 23:01; Status DC Ondansetron HCl (Zofran) 4 mg PRN Q8HRS PRN IV NAUSEA/VOMITING 1ST CHOICE; Start 07/03/20 at 22:30; Stop 07/04/20 at 22:29; Status DC Morphine Sulfate (Morphine Sulfate) 2 mg PRN Q2HR PRN IV SEVERE PAIN 7-10; Start 07/03/20 at 22:30; Stop 07/04/20 at 22:29; Status DC Sodium Chloride 1,000 ml @ 100 mls/hr Q10H IV Last administered on 07/05/20at 00:35; Start 07/03/20 at 23:00; Stop 07/04/20 at 22:59; Status DC Acetaminophen (Tylenol) 650 mg PRN Q4HRS PRN PO FEVER > 100.3'F; Start 07/03/20 at 22:30; Stop 07/04/20 at 22:29; Status DC Throat Lozenges (Cepacol Sore Throat Lozenge) 1 lety PRN Q2HRS PRN PO SORE THROAT; Start 07/04/20 at 01:15 Furosemide (Lasix) 20 mg 1X ONCE IVP Last administered on 07/04/20at 10:10; Start 07/04/20 at 10:00; Stop 07/04/20 at 10:01; Status DC Succinylcholine Chloride (Anectine) 200 mg STK-MED ONCE .ROUTE ; Start 07/04/20 at 09:09; Stop 07/04/20 at 09:09; Status DC Etomidate (Amidate) 20 mg STK-MED ONCE IV ; Start 07/04/20 at 09:09; Stop 07/04/20 at 09:09; Status DC Fentanyl Citrate 30 ml @ 0 mls/hr CONT PRN IV SEE PROTOCOL Last administered on 07/04/20at 09:36; Start 07/04/20 at 09:15; Stop 07/04/20 at 14:36; Status DC Propofol 100 ml @ 0 mls/hr CONT PRN IV SEE PROTOCOL Last administered on 08/06/20at 04:36; Start 07/04/20 at 09:15 Midazolam HCl 100 ml @ 0 mls/hr CONT PRN IV SEE PROTOCOL Last administered on 08/06/20at 07:44; Start 07/04/20 at 09:15 Midazolam HCl (Versed) 5 mg 1X STAT IV Last administered on 07/04/20at 09:41; Start 07/04/20 at 09:21; Stop 07/04/20 at 09:22; Status DC Midazolam HCl (Versed) 5 mg STK-MED ONCE .ROUTE ; Start 07/04/20 at 09:21; Stop 07/04/20 at 09:21; Status DC Etomidate (Amidate) 10 mg 1X ONCE IV Last administered on 07/04/20at 09:37; Start 07/04/20 at 09:30; Stop 07/04/20 at 09:31; Status DC Succinylcholine Chloride (Anectine) 200 mg 1X ONCE IV Last administered on 07/04/20at 09:38; Start 07/04/20 at 09:30; Stop 07/04/20 at 09:31; Status DC Vecuronium [place] (Norcuron Bolus) 6 mg 1X ONCE IV Last administered on 07/04/20at 09:38; Start 07/04/20 at 09:45; Stop 07/04/20 at 09:46; Status DC Vecuronium [place] (Norcuron Bolus) 10 mg STK-MED ONCE IV ; Start 07/04/20 at 09:33; Stop 07/04/20 at 09:33; Status DC Pantoprazole Sodium (PROTONIX VIAL for IV PUSH) 40 mg DAILYAC IVP Last administered on 08/06/20at 07:00; Start 07/04/20 at 12:30 Methylprednisolone Sodium Succinate (SOLU-Medrol 40MG VIAL) 40 mg Q8HRS IV Last administered on 07/11/20at 05:41; Start 07/04/20 at 14:00; Stop 07/11/20 at 11:36; Status DC Piperacillin Sod/ Tazobactam Sod (Zosyn Per Pharmacy) 1 each PRN DAILY PRN MC SEE COMMENTS; Start 07/04/20 at 12:00; Stop 07/18/20 at 07:46; Status DC Heparin Sodium/ Dextrose 250 ml @ 0 mls/hr CONT PRN IV PER PROTOCOL Last administered on 07/15/20at 02:09; Start 07/04/20 at 12:00; Stop 07/16/20 at 12:09; Status DC Heparin Sodium (Porcine) (Heparin Sodium) 2,500 unit PRN Q6HRS PRN IV FOR UFH LEVEL LESS THAN 0.2 Last administered on 07/15/20at 09:19; Start 07/04/20 at 12:00; Stop 07/16/20 at 12:09; Status DC Heparin Sodium (Porcine) (Heparin Sodium) 1,250 unit PRN Q6HRS PRN IV FOR UFH LEVEL 0.2 - 0.29 Last administered on 07/05/20at 18:27; Start 07/04/20 at 12:00; Stop 07/16/20 at 12:09; Status DC Piperacillin Sod/ Tazobactam Sod 3.375 gm/Sodium Chloride 50 ml @ 100 mls/hr Q6HRS IV Last administered on 07/17/20at 05:10; Start 07/04/20 at 12:00; Stop 07/17/20 at 11:11; Status DC Zinc Sulfate (Orazinc) 220 mg DAILY PO Last administered on 08/05/20at 07:16; Start 07/05/20 at 09:00 Ascorbic Acid (Vitamin C) 500 mg Q6HRS PO Last administered on 08/05/20at 06:07; Start 07/04/20 at 18:00; Stop 08/05/20 at 08:39; Status DC Vitamin D (Vitamin D3) 5,000 unit DAILY PO Last administered on 08/05/20at 07:1 6; Start 07/05/20 at 09:00 Vecuronium [place] (Norcuron Bolus) 6 mg 1X ONCE IV Last administered on 07/04/20at 13:27; Start 07/04/20 at 13:15; Stop 07/04/20 at 13:16; Status DC Norepinephrine Bitartrate 8 mg/ Dextrose 258 ml @ 16.061 mls/ hr CONT PRN IV PER PROTOCOL Last administered on 07/05/20at 00:33; Start 07/04/20 at 13:15; Stop 07/18/20 at 11:01; Status DC Fentanyl Citrate 55 ml @ 0 mls/hr CONT PRN IV SEE PROTOCOL Last administered on 08/06/20at 04:14; Start 07/04/20 at 14:45 Vecuronium [place] (Norcuron Bolus) 6 mg Q4H PRN IV OVERBREATHING VENT/out of sync Last administered on 07/20/20at 12:32; Start 07/04/20 at 16:45; Stop 07/22/20 at 09:34; Status DC Furosemide (Lasix) 40 mg 1X ONCE IVP Last administered on 07/05/20at 14:17; Start 07/05/20 at 13:30; Stop 07/05/20 at 13:31; Status DC Insulin Human Lispro (HumaLOG) 0-5 UNITS Q6HRS SQ Last administered on 07/11/20at 05:42; Start 07/05/20 at 18:00; Stop 07/11/20 at 07:54; Status DC Dextrose (Dextrose 50%-Water Syringe) 12.5 gm PRN Q15MIN PRN IV SEE COMMENTS; Start 07/05/20 at 14:15 Insulin Human Lispro (HumaLOG) 2 units 1X ONCE SQ Last administered on 07/05/20at 14:19; Start 07/05/20 at 14:30; Stop 07/05/20 at 14:31; Status DC Remdesivir 200 mg/ Sodium Chloride 210 ml @ 210 mls/hr 1X ONCE IV Last administered on 07/06/20at 14:51; Start 07/06/20 at 14:30; Stop 07/06/20 at 15:29; Status DC Remdesivir 100 mg/ Sodium Chloride 230 ml @ 460 mls/hr Q24H IV Last administered on 07/10/20at 13:59; Start 07/07/20 at 14:30; Stop 07/10/20 at 14:59; Status DC Insulin Human Lispro (HumaLOG) 0-9 UNITS TIDWMEALS SQ Last administered on 07/12/20at 11:31; Start 07/11/20 at 08:00; Stop 07/13/20 at 10:17; Status DC Methylprednisolone Sodium Succinate (SOLU-Medrol 40MG VIAL) 40 mg DAILY IV Last administered on 07/14/20at 07:57; Start 07/12/20 at 09:00; Stop 07/14/20 at 09:26; Status DC Acetaminophen (Tylenol) 650 mg PRN Q6HRS PRN PEG MILD PAIN / TEMP > 100.3'F Last administered on 08/05/20at 13:06; Start 07/12/20 at 12:00 Vecuronium [place] 50 mg/ Miscellaneous 50 ml @ 4.094 mls/ hr CONT PRN IV SEE I/O RECORD Last administered on 07/18/20at 01:56; Start 07/12/20 at 14:45; Stop 07/22/20 at 09:34; Status DC Insulin Human Lispro (HumaLOG) 0-9 UNITS Q6HRS SQ Last administered on 07/25/20at 11:49; Start 07/13/20 at 12:00; Stop 07/27/20 at 10:41; Status DC Methylprednisolone Sodium Succinate (SOLU-Medrol 40MG VIAL) 40 mg Q12HR IV Last administered on 07/16/20at 09:57; Start 07/14/20 at 21:00; Stop 07/16/20 at 12:10; Status DC Info (Anti-Coagulation Monitoring By Pharmacy) 1 each PRN DAILY PRN MC SEE COMMENTS Last administered on 08/05/20at 11:05; Start 07/16/20 at 08:15 Apixaban (Eliquis) 10 mg BID PO Last administered on 07/22/20at 20:39; Start 07/16/20 at 13:00; Stop 07/22/20 at 21:01; Status DC Methylprednisolone Sodium Succinate (SOLU-Medrol 40MG VIAL) 40 mg DAILY IV Last administered on 07/16/20at 12:22; Start 07/16/20 at 13:00; Stop 07/17/20 at 08:24; Status DC Apixaban (Eliquis) 5 mg BID PO Last administered on 07/26/20at 20:31; Start 07/23/20 at 09:00; Stop 07/27/20 at 12:19; Status DC Methylprednisolone Sodium Succinate (SOLU-Medrol 40MG VIAL) 40 mg Q12HR IV Last administered on 07/20/20at 07:54; Start 07/17/20 at 09:00; Stop 07/20/20 at 10:20; Status DC Multi-Ingred Cream/Lotion/Oil/ Oint (Artificial Tears Eye Ointment) 1 wenceslao PRN Q1HR PRN OU DRY EYE Last administered on 07/27/20at 17:19; Start 07/18/20 at 10:45 Furosemide (Lasix) 40 mg 1X ONCE IVP Last administered on 07/19/20at 00:55; Start 07/19/20 at 00:45; Stop 07/19/20 at 00:46; Status DC Methylprednisolone Sodium Succinate (SOLU-Medrol 40MG VIAL) 40 mg DAILY IV Last administered on 07/22/20at 09:08; Start 07/21/20 at 09:00; Stop 07/22/20 at 09:36; Status DC Lorazepam (Ativan Inj) 2 mg PRN Q1HR PRN IV SEE COMMENTS Last administered on 07/24/20at 06:51; Start 07/21/20 at 12:30 Vecuronium [place] (Norcuron Bolus) 6 mg PRN Q6HRS PRN IV SEDATION Last administered on 07/22/20at 12:02; Start 07/22/20 at 12:00; Stop 07/26/20 at 21:14; Status DC Piperacillin Sod/ Tazobactam Sod 4.5 gm/Sodium Chloride 100 ml @ 200 mls/hr Q6HRS IV Last administered on 07/26/20at 05:36; Start 07/24/20 at 12:00; Stop 07/26/20 at 10:53; Status DC Potassium Chloride/Water 100 ml @ 100 mls/hr Q1H IV ; Start 07/24/20 at 15:30; Stop 07/24/20 at 19:29; Status UNV Potassium Chloride/Water 100 ml @ 100 mls/hr Q1H IV ; Start 07/24/20 at 15:30; Stop 07/24/20 at 17:29; Status UNV Potassium Chloride/Water 100 ml @ 100 mls/hr Q1H IV ; Start 07/24/20 at 15:30; Stop 07/24/20 at 23:29; Status UNV Potassium Chloride/Water 100 ml @ 100 mls/hr Q1H IV ; Start 07/24/20 at 15:30; Stop 07/24/20 at 19:29; Status UNV Potassium Chloride/Water 100 ml @ 100 mls/hr Q1H IV ; Start 07/24/20 at 15:30; Stop 07/25/20 at 03:29; Status UNV Potassium Chloride/Water 100 ml @ 100 mls/hr Q1HR IV ; Start 07/24/20 at 16:00; Stop 07/24/20 at 21:59; Status UNV Magnesium Sulfate 100 ml @ 50 mls/hr DAILY IV ; Start 07/25/20 at 09:00; Stop 07/28/20 at 08:59; Status UNV Sodium Phosphate 20 mmol/Sodium Chloride 256.6667 ml @ 62.5 mls/hr 1X ONCE IV ; Start 07/24/20 at 15:30; Stop 07/24/20 at 19:36; Status UNV Sodium Phosphate 30 mmol/Sodium Chloride 260 ml @ 62.5 mls/hr 1X ONCE IV ; Start 07/24/20 at 15:30; Stop 07/24/20 at 19:39; Status UNV Potassium Phosphate 13.6 mmol/Sodium Chloride 254.5333 ml @ 62.5 mls/hr Q4H IV ; Start 07/24/20 at 15:30; Stop 07/25/20 at 03:29; Status UNV Info (Icu Electrolyte Protocol) 1 ea CONT PRN PRN MC SEE COMMENTS; Start 07/24/20 at 15:45 Vancomycin HCl (Vanco Per Pharmacy) 1 each PRN DAILY PRN MC SEE COMMENTS Last administered on 07/26/20at 08:53; Start 07/25/20 at 07:00; Stop 07/26/20 at 2 1:14; Status DC Vancomycin HCl 2 gm/Sodium Chloride 500 ml @ 250 mls/hr 1X ONCE IV Last administered on 07/25/20at 07:06; Start 07/25/20 at 07:00; Stop 07/25/20 at 08:59; Status DC Vancomycin HCl 1.25 gm/Sodium Chloride 250 ml @ 167 mls/hr Q8H IV Last administered on 07/25/20at 22:44; Start 07/25/20 at 15:00; Stop 07/26/20 at 07:31; Status DC Vancomycin HCl (Vancomycin Trough Level) 1 each 1X ONCE MC Last administered on 07/26/20at 06:13; Start 07/26/20 at 06:30; Stop 07/26/20 at 06:31; Status DC Vancomycin HCl 1.5 gm/Sodium Chloride 500 ml @ 250 mls/hr Q8H IV Last administered on 07/26/20at 15:42; Start 07/26/20 at 08:00; Stop 07/26/20 at 21:14; Status DC Vancomycin HCl (Vancomycin Trough Level) 1 each 1X ONCE MC ; Start 07/27/20 at 07:30; Stop 07/27/20 at 07:31; Status Cancel Meropenem 500 mg/ Sodium Chloride 50 ml @ 100 mls/hr Q6HRS IV Last administered on 08/02/20at 06:02; Start 07/26/20 at 12:00; Stop 08/02/20 at 07:46; Status DC Potassium Chloride/Water 100 ml @ 100 mls/hr Q1H IV Last administered on 07/27/20at 11:29; Start 07/27/20 at 10:30; Stop 07/27/20 at 12:29; Status DC Insulin Human Lispro (HumaLOG) 0-9 UNITS [id number] SQ Last administered on 07/27/20at 18:17; Start 07/27/20 at 18:00; Stop 08/01/20 at 17:17; Status DC Linezolid/Dextrose 300 ml @ 300 mls/hr Q12HR IV Last administered on 07/30/20at 21:47; Start 07/27/20 at 12:30; Stop 07/31/20 at 07:36; Status DC Vecuronium [place] (Norcuron Bolus) 6 mg PRN Q6HRS ONCE IV ; Start 07/28/20 at 08:45; Stop 07/28/20 at 09:11; Status DC Vecuronium [place] (Norcuron Bolus) 6 mg 1X ONCE IV Last administered on 07/28/20at 09:34; Start 07/28/20 at 09:30; Stop 07/28/20 at 09:31; Status DC Vecuronium [place] (Norcuron Bolus) 6 mg PRN Q6HRS PRN IV Vent Management Last administered on 08/02/20at 12:01; Start 07/28/20 at 23:00 Furosemide (Lasix) 20 mg 1X ONCE IVP Last administered on 07/29/20at 06:35; Start 07/29/20 at 06:30; Stop 07/29/20 at 06:31; Status DC Potassium Bicarbonate (Potassium Effervescent Tablet) 20 meq 1X ONCE NG Last administered on 07/29/20at 06:36; Start 07/29/20 at 06:30; Stop 07/29/20 at 06:31; Status DC Rocuronium [place] (Zemuron) 100 mg STK-MED ONCE .ROUTE ; Start 07/31/20 at 12:35; Stop 07/31/20 at 12:35; Status DC Cellulose (Surgicel Fibrillar 1x2) 1 each STK-MED ONCE .ROUTE ; Start 07/31/20 at 13:08; Stop 07/31/20 at 13:08; Status DC Bupivacaine HCl/ Epinephrine Bitart (Sensorcain-Epi 0.5%-1:[id number] Mpf) 30 ml 1X ONCE INJ ; Start 07/31/20 at 13:45; Stop 07/31/20 at 13:46; Status DC Ondansetron HCl (Zofran) 4 mg PRN Q6HRS PRN IVP NAUSEA/VOMITING; Start 08/01/20 at 07:00; Stop 08/02/20 at 06:59; Status DC Fentanyl Citrate (Fentanyl 2ml Vial) 25 mcg PRN Q5MIN PRN IVP MILD PAIN 1-3; Start 08/01/20 at 07:00; Stop 08/02/20 at 06:59; Status DC Fentanyl Citrate (Fentanyl 2ml Vial) 50 mcg PRN Q5MIN PRN IVP MODERATE TO SEVERE PAIN; Start 08/01/20 at 07:00; Stop 08/02/20 at 06:59; Status DC Morphine Sulfate (Morphine Sulfate) 1 mg PRN Q10MIN PRN IVP SEVERE PAIN 7-10; Start 08/01/20 at 07:00; Stop 08/02/20 at 06:59; Status DC Ringer's Solution 1,000 ml @ 30 mls/hr Q24H IV ; Start 08/01/20 at 07:00; Stop 08/01/20 at 18:59; Status DC Lidocaine HCl (Xylocaine-Mpf 1% 2ml Vial) 2 ml 1X PRN PRN ID IV START; Start 08/01/20 at 07:00; Stop 08/02/20 at 06:59; Status DC Hydromorphone HCl (Dilaudid) 0.5 mg PRN Q10MIN PRN IVP SEV PAIN, Second choice; Start 08/01/20 at 07:00; Stop 08/02/20 at 06:59; Status DC Prochlorperazine Edisylate (Compazine) 5 mg PACU PRN PRN IVP NAUSEA, MRX1; Start 08/01/20 at 07:00; Stop 08/02/20 at 06:59; Status DC Daptomycin 470 mg/ Sodium Chloride 50 ml @ 100 mls/hr Q24H IV Last administered on 08/05/20at 09:24; Start 08/01/20 at 09:00; Stop 08/05/20 at 11:20; Status DC Ondansetron HCl (Zofran) 4 mg PRN Q6HRS PRN IV NAUSEA/VOMITING; Start 08/02/20 at 07:00; Stop 08/03/20 at 06:59; Status DC Fentanyl Citrate (Fentanyl 2ml Vial) 25 mcg PRN Q5MIN PRN IV MILD PAIN 1-3; Start 08/02/20 at 07:00; Stop 08/03/20 at 06:59; Status DC Fentanyl Citrate (Fentanyl 2ml Vial) 50 mcg PRN Q5MIN PRN IV MODERATE TO SEVERE PAIN; Start 08/02/20 at 07:00; Stop 08/03/20 at 06:59; Status DC Morphine Sulfate (Morphine Sulfate) 1 mg PRN Q10MIN PRN IV SEVERE PAIN 7-10; Start 08/02/20 at 07:00; Stop 08/03/20 at 06:59; Status DC Ringer's Solution 1,000 ml @ 30 mls/hr Q24H IV Last administered on 08/02/20at 07:53; Start 08/02/20 at 07:00; Stop 08/02/20 at 18:59; Status DC Lidocaine HCl (Xylocaine-Mpf 1% 2ml Vial) 2 ml PRN 1X PRN ID PRIOR TO IV START; Start 08/02/20 at 07:00; Stop 08/03/20 at 06:59; Status DC Hydromorphone HCl (Dilaudid) 0.5 mg PRN Q10MIN PRN IV SEV PAIN, Second choice; Start 08/02/20 at 07:00; Stop 08/03/20 at 06:59; Status DC Prochlorperazine Edisylate (Compazine) 5 mg PACU PRN PRN IV NAUSEA, MRX1; Start 08/02/20 at 07:00; Stop 08/03/20 at 06:59; Status DC Levofloxacin/ Dextrose 150 ml @ 100 mls/hr Q24H IV Last administered on 08/05/20at 07:16; Start 08/02/20 at 09:00; Stop 08/05/20 at 11:20; Status DC Rocuronium [place] (Zemuron) 50 mg STK-MED ONCE .ROUTE ; Start 08/02/20 at 10:12; Stop 08/02/20 at 10:13; Status DC Heparin Sodium/ Dextrose 250 ml @ 0 mls/hr CONT PRN IV PER PROTOCOL; Start 1 10/04/19 at 10:45; Status UNV Heparin Sodium (Porcine) (Heparin Sodium) 2,300 unit PRN Q6HRS PRN IV FOR UFH LEVEL LESS THAN 0.2; Start 08/03/20 at 10:45; Stop 08/03/20 at 10:54; Status DC Heparin Sodium (Porcine) (Heparin Sodium) 1,150 unit PRN Q6HRS PRN IV FOR UFH LEVEL 0.2 - 0.29; Start 08/03/20 at 10:45; Stop 08/03/20 at 10:54; Status DC Heparin Sodium/ Dextrose 250 ml @ 0 mls/hr CONT PRN IV PER PROTOCOL Last administered on 08/05/20at 15:09; Start 08/03/20 at 11:00 Heparin Sodium (Porcine) (Heparin Sodium) 2,000 unit PRN Q6HRS PRN IV FOR PTT 40 - 58 Last administered on 08/04/20at 10:56; Start 08/03/20 at 11:00 Heparin Sodium (Porcine) (Heparin Sodium) 1,000 unit PRN Q6HRS PRN IV FOR PTT 59 - 78 Last administered on 08/04/20at 00:12; Start 08/03/20 at 11:00 Ondansetron HCl (Zofran) 4 mg PRN Q6HRS PRN IV NAUSEA/VOMITING; Start 08/06/20 at 07:00; Stop 08/07/20 at 06:59 Fentanyl Citrate (Fentanyl 2ml Vial) 25 mcg PRN Q5MIN PRN IV MILD PAIN 1-3; Start 08/06/20 at 07:00; Stop 08/07/20 at 06:59 Fentanyl Citrate (Fentanyl 2ml Vial) 50 mcg PRN Q5MIN PRN IV MODERATE TO SEVERE PAIN; Start 08/06/20 at 07:00; Stop 08/07/20 at 06:59 Morphine Sulfate (Morphine Sulfate) 1 mg PRN Q10MIN PRN IV SEVERE PAIN 7-10; Start 08/06/20 at 07:00; Stop 08/07/20 at 06:59 Ringer's Solution 1,000 ml @ 30 mls/hr Q24H IV ; Start 08/06/20 at 07:00; Stop 08/06/20 at 18:59 Lidocaine HCl (Xylocaine-Mpf 1% 2ml Vial) 2 ml PRN 1X PRN ID PRIOR TO IV START; Start 08/06/20 at 07:00; Stop 08/07/20 at 06:59 Hydromorphone HCl (Dilaudid) 0.5 mg PRN Q10MIN PRN IV SEV PAIN, Second choice; Start 08/06/20 at 07:00; Stop 08/07/20 at 06:59 Prochlorperazine Edisylate (Compazine) 5 mg PACU PRN PRN IV NAUSEA, MRX1; Start 08/06/20 at 07:00; Stop 08/07/20 at 06:59 Bupivacaine HCl/ Epinephrine Bitart (Sensorcain-Epi 0.5%-1:[id number] Mpf) 30 ml 1X ONCE INJ ; Start 08/06/20 at 06:30; Stop 08/06/20 at 06:31; Status DC Justicifation of Admission Dx: Justifications for Admission: Justification of Admission Dx: Yes ALVIN RAMSEY MD Aug 06, 2020 08:33
[2020-08-06 08:35] LABS: FIO2 ABG 40%
--- NOTE | 2020-08-06 09:04 | RAD ---
Single view chest dated 08/06/2020. Comparison made to 07/29/2020. CLINICAL INDICATION: Respiratory failure. FINDINGS: Single upright portable exam performed. Endotracheal tube, nasogastric tube in place, unchanged. Hear t and mediastinal contours are stable. There is widespread airspace disease throughout both lungs, le ft greater than right, similar to slightly improved. There is moderate size pleural effusion on the l eft. The right-sided pleural effusion may slightly improved. No pneumothorax. IMPRESSION: 1. Mild improvement in bilateral airspace disease. 2. Bilateral pleural effusions, left greater than right. Electronically signed by: Jorge Brown MD (08/06/2020 9:01 AM) [id number]
--- NOTE | 2020-08-06 09:24 | PDOC ---
Date of Service: DATE: 08/06/20 TIME: 09:19 Objective: Objective: D/w staff - going for tracheostomy today. Tmax 101.7. Reviewed notes - ?TB Vital Signs: Vital Signs Date Time Temp Pulse Resp B/P (MAP) Pulse Ox O2 Delivery O2 Flow Rate FiO2 08/06/20 09:00 99.9 78 18 93/58 (70) 100 Ventilator 99.9 Labs: Laboratory Tests Test 08/05/20 10:15 08/06/20 05:50 08/06/20 08:00 Activated Partial Thromboplast Time 77 SEC White Blood Count 7.9 x10^3/uL Red Blood Count 3.38 x10^6/uL Hemoglobin 10.9 g/dL Hematocrit 32.2 % Mean Corpuscular Volume 95 fL Mean Corpuscular Hemoglobin 32 pg Mean Corpuscular Hemoglobin Concent 34 g/dL Red Cell Distribution Width 15.6 % Platelet Count 470 x10^3/uL Neutrophils (%) (Auto) 68 % Lymphocytes (%) (Auto) 19 % Monocytes (%) (Auto) 10 % Eosinophils (%) (Auto) 3 % Basophils (%) (Auto) 1 % Neutrophils # (Auto) 5.4 x10^3/uL Lymphocytes # (Auto) 1.5 x10^3/uL Monocytes # (Auto) 0.8 x10^3/uL Eosinophils # (Auto) 0.2 x10^3/uL Basophils # (Auto) 0.1 x10^3/uL Prothrombin Time 16.4 SEC Prothromb Time International Ratio 1.4 Sodium Level 137 mmol/L Potassium Level 3.4 mmol/L Chloride Level 97 mmol/L Carbon Dioxide Level 36 mmol/L Anion Gap 4 Blood Urea Nitrogen 8 mg/dL Creatinine 0.6 mg/dL Estimated GFR (Cockcroft-Gault) 142.6 Glucose Level 107 mg/dL Calcium Level 8.9 mg/dL O2 Saturation 97 % Arterial Blood pH 7.47 Arterial Blood pCO2 at Patient Temp 44 mmHg Arterial Blood pO2 at Patient Temp 93 mmHg Arterial Blood HCO3 32 mmol/L Arterial Blood Base Excess 7 mmol/L FiO2 40% Imaging: CXR 08/06 IMPRESSION: 1. Mild improvement in bilateral airspace disease. 2. Bilateral pleural effusions, left greater than right. PE: GEN: intubated in ICU LUNGS: vent HEART: RRR ABD: non-distended NEURO/PSYCH: sedated A/P: COVID-19 infection - positive 07/03, negative 07/31 Resp failure, fever - AFB cx pending -- Will follow. Justicifation of Admission Dx: Justifications for Admission: Justification of Admission Dx: Yes LYNETTE CELIS Aug 06, 2020 09:24
[2020-08-06] MEDS ORDERED: ROCURONIUM 50 MG/5 ML VIAL. ONE ×2 (11:02→15:19)
[2020-08-06] MEDS ORDERED: fentaNYL PF VIAL 100 MCG/2 ML VIAL ONE (11:03)
--- NOTE | 2020-08-06 11:18 | PDOC ---
PULMONARY PROGRESS NOTES DATE: 08/06/20 TIME: 11:15 Subjective PT. remains on vent support , 40% FiO2 and a PEEP of 6 Plan for tracheostomy today, and PEG tube on Thursday Continues to have low-grade fevers overnight Vitals Vital Signs Date Time Temp Pulse Resp B/P (MAP) Pulse Ox O2 Delivery O2 Flow Rate FiO2 08/06/20 11:00 99.9 79 18 91/56 (68) 100 Ventilator 99.9 Comments Patient seen during pandemic visual exam performed Intubated/sedated has accessory muscle use tachypneac RRR No obvious rash or edema Labs Laboratory Tests Test 08/04/20 16:40 08/04/20 23:15 08/05/20 10:15 08/06/20 05:50 Activated Partial Thromboplast Time 101 SEC (24-38) 91 SEC (24-38) 77 SEC (24-38) White Blood Count 7.9 x10^3/uL (4.0-11.0) Red Blood Count 3.38 x10^6/uL (4.30-5.70) Hemoglobin 10.9 g/dL (13.0-17.5) Hematocrit 32.2 % (39.0-53.0) Mean Corpuscular Volume 95 fL (79-100) Mean Corpuscular Hemoglobin 32 pg (25-35) Mean Corpuscular Hemoglobin Concent 34 g/dL (31-37) Red Cell Distribution Width 15.6 % (11.5-14.5) Platelet Count 470 x10^3/uL (140-400) Neutrophils (%) (Auto) 68 % (31-73) Lymphocytes (%) (Auto) 19 % (24-48) Monocytes (%) (Auto) 10 % (0-9) Eosinophils (%) (Auto) 3 % (0-3) Basophils (%) (Auto) 1 % (0-3) Neutrophils # (Auto) 5.4 x10^3/uL (1.8-7.7) Lymphocytes # (Auto) 1.5 x10^3/uL (1.0-4.8) Monocytes # (Auto) 0.8 x10^3/uL (0.0-1.1) Eosinophils # (Auto) 0.2 x10^3/uL (0.0-0.7) Basophils # (Auto) 0.1 x10^3/uL (0.0-0.2) Prothrombin Time 16.4 SEC (11.7-14.0) Prothromb Time International Ratio 1.4 (0.8-1.1) Sodium Level 137 mmol/L (136-145) Potassium Level 3.4 mmol/L (3.5-5.1) Chloride Level 97 mmol/L (98-107) Carbon Dioxide Level 36 mmol/L (21-32) Anion Gap 4 (6-14) Blood Urea Nitrogen 8 mg/dL (8-26) Creatinine 0.6 mg/dL (0.7-1.3) Estimated GFR (Cockcroft-Gault) 142.6 Glucose Level 107 mg/dL (70-99) Calcium Level 8.9 mg/dL (8.5-10.1) Test 08/06/20 08:00 O2 Saturation 97 % (92-99) Arterial Blood pH 7.47 (7.35-7.45) Arterial Blood pCO2 at Patient Temp 44 mmHg (35-46) Arterial Blood pO2 at Patient Temp 93 mmHg (75-108) Arterial Blood HCO3 32 mmol/L (21-28) Arterial Blood Base Excess 7 mmol/L (-3-3) FiO2 40% Laboratory Tests Test 08/06/20 05:50 08/06/20 08:00 White Blood Count 7.9 x10^3/uL (4.0-11.0) Red Blood Count 3.38 x10^6/uL (4.30-5.70) Hemoglobin 10.9 g/dL (13.0-17.5) Hematocrit 32.2 % (39.0-53.0) Mean Corpuscular Volume 95 fL (79-100) Mean Corpuscular Hemoglobin 32 pg (25-35) Mean Corpuscular Hemoglobin Concent 34 g/dL (31-37) Red Cell Distribution Width 15.6 % (11.5-14.5) Platelet Count 470 x10^3/uL (140-400) Neutrophils (%) (Auto) 68 % (31-73) Lymphocytes (%) (Auto) 19 % (24-48) Monocytes (%) (Auto) 10 % (0-9) Eosinophils (%) (Auto) 3 % (0-3) Basophils (%) (Auto) 1 % (0-3) Neutrophils # (Auto) 5.4 x10^3/uL (1.8-7.7) Lymphocytes # (Auto) 1.5 x10^3/uL (1.0-4.8) Monocytes # (Auto) 0.8 x10^3/uL (0.0-1.1) Eosinophils # (Auto) 0.2 x10^3/uL (0.0-0.7) Basophils # (Auto) 0.1 x10^3/uL (0.0-0.2) Prothrombin Time 16.4 SEC (11.7-14.0) Prothromb Time International Ratio 1.4 (0.8-1.1) Sodium Level 137 mmol/L (136-145) Potassium Level 3.4 mmol/L (3.5-5.1) Chloride Level 97 mmol/L (98-107) Carbon Dioxide Level 36 mmol/L (21-32) Anion Gap 4 (6-14) Blood Urea Nitrogen 8 mg/dL (8-26) Creatinine 0.6 mg/dL (0.7-1.3) Estimated GFR (Cockcroft-Gault) 142.6 Glucose Level 107 mg/dL (70-99) Calcium Level 8.9 mg/dL (8.5-10.1) O2 Saturation 97 % (92-99) Arterial Blood pH 7.47 (7.35-7.45) Arterial Blood pCO2 at Patient Temp 44 mmHg (35-46) Arterial Blood pO2 at Patient Temp 93 mmHg (75-108) Arterial Blood HCO3 32 mmol/L (21-28) Arterial Blood Base Excess 7 mmol/L (-3-3) FiO2 40% Comments CXR 08/06 IMPRESSION: 1. Mild improvement in bilateral airspace disease. 2. Bilateral pleural effusions, left greater than right. Impression . IMPRESSION: 1. Acute hypoxemic respiratory failure./ALI/ARDS due to COVID -19 2. Acute pulmonary embolism with cor pulmonale. 3. COVID-[address] chest revealing ground glass opacities. 5. Hypertension. 6. History of bronchitis. 7. Elevated troponin. 8. Acute kidney injury. 9. Leukocytosis. 10. Covid-19 positive 11. Possible loculated hydroPTX left base 12. fever ?tb Plan . Continue current ventilatory support, FiO2 40% and a PEEP of 6, Tracheostomy planned for today, PEG tube planned for Thursday Heparin drip on hold for procedure, reinitiate heparin drip per surgery recommendations reviewed chest x-ray and ABG, Follow cardiology recommendations Antibiotics per ID--AFB pending, repeat cultures negative, continues to have fevers Has completed full course of remdesivir Continue tube feeding for nutritional support DVT/GI prophylaxis,Protonix Discussed with RN and RT Pt. is FULL CODE critically ill Critical care [id number] ALVIN RAMSEY MD Aug 06, 2020 11:18
[2020-08-06] MEDS ORDERED: SURGICEL HEMOSTAT 4X8 EACH. ONE (14:10)
--- NOTE | 2020-08-06 14:32 | PDOC ---
[employer] PROGRESS NOTE Date of Service DOS: DATE: 08/06/20 TIME: 14:30 Chief Complaint Chief Complaint IMPRESSION Acute hypoxic respiratory failure requiring VENT SUPPORT Acute hypoxic respiratory failure/ARDS /pneumonia Bilateral perihilar and basilar opacities, progressed in the left base. 07-26 COVID-19 Subsegmental bilateral PE Leukocytosis NSTEMI AKA Lactic acidosis Hyponatremia, RESOLVED hgb 6.5 07-27, transfused 1 unit prbc's hyp[okalemia, on replacement Plan: Appreciate pulmonology recommendations Continue current ventilatory support, currently on 70% and PEEP of 6, avoid increasing PEEP 2/2 risk of barotrauma Follow chest x-ray and ABG, vent management as per pulmonology Heparin has been transitioned to Xarelto Solu-Medrol 40 mg every 12 hours Appreciate ID recommendationscontinue Remdesivir and empiric antibiotics IV fluids Discussed with RN and SW. Antibiotics per ID-- off ABX, infectious disease following increasing leukocytosis has completed full course of remdesivir continue tube feeding for nutritional support 35 MIN CC TIME History of Present Illness History of Present Illness 08/06/2020 No acute events overnight. Patient is afebrile. Currently on minimal vent settings. Pending trach today. Patient's chart, labs, images were reviewed and discussed with RN A total of 35 minutes of critical care time was spent in reviewing chart, labs, and images. Discussed with RN and SW. 08/05/2020 Patient seen and evaluated. No acute events, febrile overnight. Mechanically ventilated with FiO2 40%, PEEP 6. Plan for trach Thursday. 08/04/2020 Patient seen in [facility] ICU. Still with low-grade fevers. Mechanically venti lated, FiO2 40%, PEEP 6. No acute change, plan for trach Thursday. 08/03/2020 Patient seen in [place] [id number] ICU. Still with low-grade fever. He remains on vent with FiO2 100%, PEEP 12. Plan for trach on Thursday, and PEG at some point after. 08/02/2020 Patient seen and evaluated in [facility] ICU. He is febrile this morning. Still intubated mechanically ventilated with FiO2 40 %, PEEP 6. Plans for tracheostomy today. 08/01/2020 Patient seen in [facility] ICU. Patient remains slightly febrile. Mechanically ventilated, FiO2 45%, PEEP 6. Tracheostomy unable to perform yesterday, general surgery to attempt again today. Discussed with RN. 07/31/2020 Patient still spiking fevers. Patient remains on vent, FiO2 45%, PEEP 6. Tracheostomy tentatively planned for today. 07/30/2020 Patient seen in [place] [id number] ICU. He is febrile on vent, FiO2 45%, PEEP 6. Will attempt to speak with family about decision on trach and PEG tube. Discussed with RN. t max 102 f fio2 50% 07/21/2020 Patient no acute events reported overnight. Patient continues to require a lot of support from vent. Discussed with RN 09/19/2019 Patient continues to be pretty much the same , fio2 is at 70%, heparin 07/19/2020 Patient hypotensive today, we will follow recommendations from critical direct care provider. Vent management as per clothing consultant, no other complaints. 07/18/2020 Patient with no acute events reported overnight, fio2 is now at 75% PEEP of 6, Vent management as per pulmonary clothing consultant slight increase in temperature noted over the lat 24 hours. Will continue to follow 07/17/2020 Patient with no acute events reported overnight, contineus to require an fio2 of 80%, continue with supportive measures. 07/16/2020 Patient with no acute events reported overnight, patient continues to require quite a bit of FiO2 at 80%. Vent management as per clothing consultant, will place a call to family members after rounding. Discussed with RN 07/15/2020 Patient seen and examined bedside in the ICU. FiO2 80% PEEP of 6.pH 7.56, PCO2 32, PO2 56, HCO3 28. Will adjust respiratory rate accordingly to correct pH.> 50% time spent in patient chart, labs, and imaging review and in discussion with RN and JAVIER 07/14/2020 Patient seen and examined bedside. FiO2 65% and PEEP of 6 on vent. ABG: pH 7.26, PCO2 77, PO2 114, HCO3 34. We will adjust respiratory rate or tidal volume to titrate pH.> 50% time spent in patient chart, labs, and imaging review and in discussion with RN and JAVIER 07/13/2020 No acute events overnight. Patient examined bedside sedated and intubated. Fi O2 70% PEEP of 6. Improved ABGs.> 50% time spent in patient chart, labs, and imaging review and in discussion with RN and JAVIER 07/12/2020 Patient seen and examined in the ICU. Sedated and intubated. FiO2 65, PEEP of 8 with improved oxygenation. pH 7.4, PCO2 48, PO2 94, HCO3 30. +500 cc fluid balance.> 50% time spent in patient chart, labs, and imaging review and in discussion with RN and JAVIER 07/11/2020 Patient seen and examined bedside in the ICU. Patient continues to be intubated and sedated. FiO2 75%, PEEP of 10. pH 7.40, PCO2 44, PO2 is 135, HCO3 26. Can likely decrease FiO2 due to improved oxygenation. +173 cc in the past 24 hours 07/10/2020 Patient seen and examined bedside in ICU. Patient is intubated and sedated. FiO2 90%, PEEP of 10, respiratory rate of 30. ABG: pH is 7.41, PCO2 42, PO2 113, HCO3 26. 07/09/2020 Patient seen and examined in the ICU. Intubated and sedated. Vent settings FiO2 90%, PEEP of 10, respiratory rate of 30. 07/05: Patient seen in ICU, still intubated and sedated. COVID-19 pending. Patient remains on heparin infusion. Discussed with RN, will try to have central line placed per anesthesia. 07/06: Patient seen in ICU. Still FiO2 100% on vent and sedated. COVID-19 positive. Continue heparin infusion, Zosyn, steroids. 07/07: Covid positive patient seen in ICU. On vent with FiO2 100%, PEEP 10. Continue remdesivir, steroids, Zosyn. Continue to monitor 07/08: Patient seen in [facility] ICU. Still on vent with FiO2 100%, PEEP 10. Afebrile. No acute events overnight. Continue steroids, antibiotics, and remdesivir. Patient is 49-year-old male with past medical history of hypertension, who presents to the ED with complaints of worsening shortness of breath over the past 5 days. Associated sore throat, fatigue, and generalized weakness. Patient was reportedly tested for COVID-19 last Thursday, but he had negative test results. His symptoms acutely worsened yesterday. Upon arrival to the ER his oxygen saturation was 60% on room air. He was placed on BiPAP and admitted to the ICU. Patient was subsequently intubated due to worsening respiratory failure. Vitals/I&O Vitals/I&O: Vital Signs Date Time Temp Pulse Resp B/P (MAP) Pulse Ox O2 Delivery O2 Flow Rate FiO2 08/06/20 14:00 101.1 91 18 99/61 (74) 100 Ventilator 101.1 I & O 08/05/20 08/05/20 08/06/20 15:00 23:00 07:00 Intake Total 400 ml 1415 ml 246.5 ml Output Total 625 ml 625 ml 1050 ml Balance -225 ml 790 ml -803.5 ml Physical Exam Physical Exam: General intubated/sedated HEENT normocephalic atraumatic, OGT/ETT present LUNGS: Coarse breath sounds anteriorly HEART: S1-S2 no murmurs ABDOMEN: Nondistended, soft bowel sounds present Fernandez in place SKIN: No generalized rash Right upper extremity PICC line removed PIV Clean Neuro intubated/sedated General: Other (sedated ) Labs Labs: Laboratory Tests Test 08/06/20 05:50 08/06/20 08:00 White Blood Count 7.9 x10^3/uL (4.0-11.0) Red Blood Count 3.38 x10^6/uL (4.30-5.70) Hemoglobin 10.9 g/dL (13.0-17.5) Hematocrit 32.2 % (39.0-53.0) Mean Corpuscular Volume 95 fL (79-100) Mean Corpuscular Hemoglobin 32 pg (25-35) Mean Corpuscular Hemoglobin Concent 34 g/dL (31-37) Red Cell Distribution Width 15.6 % (11.5-14.5) Platelet Count 470 x10^3/uL (140-400) Neutrophils (%) (Auto) 68 % (31-73) Lymphocytes (%) (Auto) 19 % (24-48) Monocytes (%) (Auto) 10 % (0-9) Eosinophils (%) (Auto) 3 % (0-3) Basophils (%) (Auto) 1 % (0-3) Neutrophils # (Auto) 5.4 x10^3/uL (1.8-7.7) Lymphocytes # (Auto) 1.5 x10^3/uL (1.0-4.8) Monocytes # (Auto) 0.8 x10^3/uL (0.0-1.1) Eosinophils # (Auto) 0.2 x10^3/uL (0.0-0.7) Basophils # (Auto) 0.1 x10^3/uL (0.0-0.2) Prothrombin Time 16.4 SEC (11.7-14.0) Prothromb Time International Ratio 1.4 (0.8-1.1) Sodium Level 137 mmol/L (136-145) Potassium Level 3.4 mmol/L (3.5-5.1) Chloride Level 97 mmol/L (98-107) Carbon Dioxide Level 36 mmol/L (21-32) Anion Gap 4 (6-14) Blood Urea Nitrogen 8 mg/dL (8-26) Creatinine 0.6 mg/dL (0.7-1.3) Estimated GFR (Cockcroft-Gault) 142.6 Glucose Level 107 mg/dL (70-99) Calcium Level 8.9 mg/dL (8.5-10.1) O2 Saturation 97 % (92-99) Arterial Blood pH 7.47 (7.35-7.45) Arterial Blood pCO2 at Patient Temp 44 mmHg (35-46) Arterial Blood pO2 at Patient Temp 93 mmHg (75-108) Arterial Blood HCO3 32 mmol/L (21-28) Arterial Blood Base Excess 7 mmol/L (-3-3) FiO2 40% Assessment and Plan Assessmemt and Plan Problems Medical Problems: (1) Acute respiratory failure with hypoxia Status: Acute (2) PRIYA (acute kidney injury) Status: Acute (3) Elevated troponin I level Status: Acute (4) Pulmonary emboli Status: Acute (5) Suspected COVID-19 virus infection Status: Acute Comment Review of Relevant I have reviewed the following items trino (where applicable) has been applied. Justifications for Admission Other Justification DOROTHEA VIRK MD Aug 06, 2020 14:32
[2020-08-06] MEDS ORDERED: SEVOFLURANE 31 TO 60 MINUTES. IH ONE (15:18)
--- NOTE | 2020-08-06 15:38 | NUR ---
SS following up with discharge planning. SS reviewed pt chart and discussed with pt RN. Pt is currently on the vent at 40%. COVID19 negative now. Pt had trach placement today. Self pay. Pt being tested for TB at this time. Full Code. SS will continue to follow for discharge planning.
--- NOTE | 2020-08-06 15:45 | PDOC4 ---
OPERATIVE NOTE Date: Date: Aug 06, 2020 Pre-Op Diagnosis: Respiratory failure Post-Op Diagnosis: same Procedure Performed: tracheostomy (specifically 8 shiley tracheostomy cuffed) Surgeon: Sam Mcgee Anesthesia Type: GETA plus local Blood Loss: 50 Specimans Obtained: none Findings: normal anatomy Complications: none Operative Note: Patient was taken to OR, induced under GETA and prepped in the usual fashion over the anterior neck. Vertical incision made with cautery. Subcutaneous tissues divided and trachea identified. 2 0 prolene placed in 1st tracheal ring and secured with steristrips to the left. 2nd tracheal ring sharply opened transversely. Tracheostomy introduced under direct vision. End tidal detected and patient successfully oxygenated and ventilated. Balloon inflated and tracheostomy secured with 3 0 nylon. Tracheal collar placed. Patient tolerated procedure well and returned to ICU in stable condition. All counts correct. Wound class is 4. BRETT MCGEE MD Aug 06, 2020 15:45
--- NOTE | 2020-08-06 20:30 | NUR ---
Patient's temp now 101.3, last blood cultures done 07/31/20 and urine culture on 07/23/20, paged Dr Hylton. Dr Hylton returned page, notified of fever, last cultures date and AFB sent but pending. Orders received to get urine culture, blood cultures x2 and may give Tylenol suppository since patient no longer has OG. See orders.
[2020-08-06] MEDS: ACETAMINOPHEN 650 MG SUPP.RECT. PR PRN (21:07)
[2020-08-07] VITALS (24 sets, daily range): BP systolic 85–134; BP diastolic 56–79
[2020-08-07] MEDS: PROPOFOL 100 ML IV PRN ×5 (00:07→23:03)
[2020-08-07] MEDS: MIDAZOLAM 100mg/100ml NS BAG 100 ML IV PRN ×3 (02:41→21:03)
[2020-08-07] MEDS: PANTOPRAZOLE IV PUSH 40 MG VIAL. IVP SCH (07:30)
--- NOTE | 2020-08-07 08:33 | PDOC ---
PULMONARY PROGRESS NOTES DATE: 08/07/20 TIME: 08:32 Subjective PT. remains on vent support , 40% FiO2 and a PEEP of 6 Status post tracheostomy on 08/06/2020, plan for PEG tube today Continues to have fevers No other concerns from nursing overnight Vitals Vital Signs Date Time Temp Pulse Resp B/P (MAP) Pulse Ox O2 Delivery O2 Flow Rate FiO2 08/07/20 08:24 99.7 85 18 95/61 (72) 98 Ventilator 99.7 Comments Patient seen during pandemic visual exam performed Intubated/sedated no accessory muscle use RRR No obvious rash or edema Labs Laboratory Tests Test 08/05/20 10:15 08/06/20 05:50 08/06/20 08:00 Activated Partial Thromboplast Time 77 SEC (24-38) White Blood Count 7.9 x10^3/uL (4.0-11.0) Red Blood Count 3.38 x10^6/uL (4.30-5.70) Hemoglobin 10.9 g/dL (13.0-17.5) Hematocrit 32.2 % (39.0-53.0) Mean Corpuscular Volume 95 fL (79-100) Mean Corpuscular Hemoglobin 32 pg (25-35) Mean Corpuscular Hemoglobin Concent 34 g/dL (31-37) Red Cell Distribution Width 15.6 % (11.5-14.5) Platelet Count 470 x10^3/uL (140-400) Neutrophils (%) (Auto) 68 % (31-73) Lymphocytes (%) (Auto) 19 % (24-48) Monocytes (%) (Auto) 10 % (0-9) Eosinophils (%) (Auto) 3 % (0-3) Basophils (%) (Auto) 1 % (0-3) Neutrophils # (Auto) 5.4 x10^3/uL (1.8-7.7) Lymphocytes # (Auto) 1.5 x10^3/uL (1.0-4.8) Monocytes # (Auto) 0.8 x10^3/uL (0.0-1.1) Eosinophils # (Auto) 0.2 x10^3/uL (0.0-0.7) Basophils # (Auto) 0.1 x10^3/uL (0.0-0.2) Prothrombin Time 16.4 SEC (11.7-14.0) Prothromb Time International Ratio 1.4 (0.8-1.1) Sodium Level 137 mmol/L (136-145) Potassium Level 3.4 mmol/L (3.5-5.1) Chloride Level 97 mmol/L (98-107) Carbon Dioxide Level 36 mmol/L (21-32) Anion Gap 4 (6-14) Blood Urea Nitrogen 8 mg/dL (8-26) Creatinine 0.6 mg/dL (0.7-1.3) Estimated GFR (Cockcroft-Gault) 142.6 Glucose Level 107 mg/dL (70-99) Calcium Level 8.9 mg/dL (8.5-10.1) O2 Saturation 97 % (92-99) Arterial Blood pH 7.47 (7.35-7.45) Arterial Blood pCO2 at Patient Temp 44 mmHg (35-46) Arterial Blood pO2 at Patient Temp 93 mmHg (75-108) Arterial Blood HCO3 32 mmol/L (21-28) Arterial Blood Base Excess 7 mmol/L (-3-3) FiO2 40% Comments CXR 08/06 IMPRESSION: 1. Mild improvement in bilateral airspace disease. 2. Bilateral pleural effusions, left greater than right. Impression . IMPRESSION: 1. Acute hypoxemic respiratory failure./ALI/ARDS due to COVID -19 2. Acute pulmonary embolism with cor pulmonale. 3. COVID-[address] chest revealing ground glass opacities. 5. Hypertension. 6. History of bronchitis. 7. Elevated troponin. 8. Acute kidney injury. 9. Leukocytosis. 10. Covid-19 positive 11. Possible loculated hydroPTX left base 12. fever ?tb Plan . Continue current ventilatory support, FiO2 40% and a PEEP of 6, Status post tracheostomy 08/06/2020, plan for PEG tube placement today Hold ventilator weaning for 48 hours status post tracheostomy Heparin drip on hold for procedure, reinitiate heparin drip per surgery recommendations reviewed chest x-ray and ABG, Follow cardiology recommendations Antibiotics per ID--AFB negative, repeat cultures negative, continues to have fevers, currently off ABX Has completed full course of remdesivir Continue tube feeding for nutritional support DVT/GI prophylaxis,Protonix Discussed with RN and RT Pt. is FULL CODE critically ill Critical care time 0900-0930AM ALVIN RAMSEY MD Aug 07, 2020 08:33
--- NOTE | 2020-08-07 08:43 | PDOC ---
Infectious Disease Note Subjective Subjective Patient Intubated Fever+ ROS ROS no n/v/d/ did have trach now Vital Sign Vital Signs Vital Signs Date Time Temp Pulse Resp B/P (MAP) Pulse Ox O2 Delivery O2 Flow Rate FiO2 08/07/20 08:37 Mechanical Ventilator 08/07/20 08:24 99.7 85 18 95/61 (72) 98 99.7 Physical Exam PHYSICAL EXAM General intubated/sedated HEENT normocephalic atraumatic , trach LUNGS: Coarse breath sounds anteriorly HEART: S1-S2 no murmurs ABDOMEN: Nondistended, soft bowel sounds present Fernandez in place SKIN: No generalized rash Right upper extremity PICC line removed PIV Clean Neuro intubated/sedated Labs Micro sputum enterobacter sputum afb stain neg Objective Assessment Fever Leukocytosis improved COVID-19 positive. Status post remdesivir, steroids Acute hypoxic respiratory failure/ARDS /pneumonia Bilateral pulmonary emboli. Hypertension. Bacteremia 07/23 1/2 bottles staph hominis likely contaminant Repeat blood cultures staph capitis likely contaminant Enterobacter UTI and pneumonia Plan Plan of Care RUE PICC line DC'd Fernandez changed 07/26 Follow-up repeat BC Monitor labs and cultures D/W RN fever ? may have TB tracheal aspirate for afb,, culture pending MONALISA ROTHMAN MD Aug 07, 2020 08:43
[2020-08-07] MEDS: ZINC SULFATE 220 MG CAPSULE. PO SCH (08:52)
[2020-08-07] MEDS: CHOLECALCIFEROL (VITAMIN D3) 5,000 UNIT CAPSULE PO SCH (08:52)
--- NOTE | 2020-08-07 09:50 | PDOC ---
SURGICAL PROGRESS NOTE DATE: 08/07/20 TIME: 09:49 Subjective d/w nursing no issues with trach Vital Signs Vital Signs Date Time Temp Pulse Resp B/P (MAP) Pulse Ox O2 Delivery O2 Flow Rate FiO2 08/07/20 09:05 100.0 100 18 114/69 (84) 98 Ventilator 100.0 08/06/20 22:41 15.0 I&O Intake and Output 08/07/20 07:00 Intake Total 311 ml Output Total 1880 ml Balance -1569 ml IV Total 311 ml Output Urine Total 1880 ml Gastric Drainage Total 0 ml General: Other (sedated ) HEENT: Other (trach intact) Labs Laboratory Tests Test 08/05/20 10:15 08/06/20 05:50 08/06/20 08:00 Activated Partial Thromboplast Time 77 SEC (24-38) White Blood Count 7.9 x10^3/uL (4.0-11.0) Red Blood Count 3.38 x10^6/uL (4.30-5.70) Hemoglobin 10.9 g/dL (13.0-17.5) Hematocrit 32.2 % (39.0-53.0) Mean Corpuscular Volume 95 fL (79-100) Mean Corpuscular Hemoglobin 32 pg (25-35) Mean Corpuscular Hemoglobin Concent 34 g/dL (31-37) Red Cell Distribution Width 15.6 % (11.5-14.5) Platelet Count 470 x10^3/uL (140-400) Neutrophils (%) (Auto) 68 % (31-73) Lymphocytes (%) (Auto) 19 % (24-48) Monocytes (%) (Auto) 10 % (0-9) Eosinophils (%) (Auto) 3 % (0-3) Basophils (%) (Auto) 1 % (0-3) Neutrophils # (Auto) 5.4 x10^3/uL (1.8-7.7) Lymphocytes # (Auto) 1.5 x10^3/uL (1.0-4.8) Monocytes # (Auto) 0.8 x10^3/uL (0.0-1.1) Eosinophils # (Auto) 0.2 x10^3/uL (0.0-0.7) Basophils # (Auto) 0.1 x10^3/uL (0.0-0.2) Prothrombin Time 16.4 SEC (11.7-14.0) Prothromb Time International Ratio 1.4 (0.8-1.1) Sodium Level 137 mmol/L (136-145) Potassium Level 3.4 mmol/L (3.5-5.1) Chloride Level 97 mmol/L (98-107) Carbon Dioxide Level 36 mmol/L (21-32) Anion Gap 4 (6-14) Blood Urea Nitrogen 8 mg/dL (8-26) Creatinine 0.6 mg/dL (0.7-1.3) Estimated GFR (Cockcroft-Gault) 142.6 Glucose Level 107 mg/dL (70-99) Calcium Level 8.9 mg/dL (8.5-10.1) O2 Saturation 97 % (92-99) Arterial Blood pH 7.47 (7.35-7.45) Arterial Blood pCO2 at Patient Temp 44 mmHg (35-46) Arterial Blood pO2 at Patient Temp 93 mmHg (75-108) Arterial Blood HCO3 32 mmol/L (21-28) Arterial Blood Base Excess 7 mmol/L (-3-3) FiO2 40% Problem List Problems Medical Problems: (1) Acute respiratory failure with hypoxia Status: Acute (2) PRIYA (acute kidney injury) Status: Acute (3) Elevated troponin I level Status: Acute (4) Pulmonary emboli Status: Acute (5) Suspected COVID-19 virus infection Status: Acute Assessment/Plan no trach issues, will sign off, please call with questions Justicifation of Admission Dx: Justifications for Admission: Justification of Admission Dx: Yes NATE SANTIAGO ARTIST SUSPECT Aug 07, 2020 09:50
--- NOTE | 2020-08-07 10:13 | PDOC ---
Date of Service: DATE: 08/07/20 TIME: 10:11 Objective: Objective: D/w nurse - ?PEG today - if not, wondering about restarting Heparin/Brilinta or restarting some sort of nutrition. Vital Signs: Vital Signs Date Time Temp Pulse Resp B/P (MAP) Pulse Ox O2 Delivery O2 Flow Rate FiO2 08/07/20 10:08 100.2 95 18 103/60 (74) 96 Ventilator 100.2 08/06/20 22:41 15.0 Labs: AFB SPECIMEN PROCESSING Final Concentration AFB CULTURE FINAL PENDING AFB CULTURE GRAM STAIN Final Negative PE: GEN: intubated HEENT: trach LUNGS: coarse HEART: RRR ABD: Nnon-distended NEURO/PSYCH: sedated A/P: COVID-19 infection - positive 07/03, negative 07/31 Resp failure, fever - s/p trach 08/06 -- Will review w/ Dr. Haque. Justicifation of Admission Dx: Justifications for Admission: Justification of Admission Dx: Yes LYNETTE CELIS Aug 07, 2020 10:13
--- NOTE | 2020-08-07 10:53 | PDOC ---
[employer] PROGRESS NOTE Date of Service DOS: DATE: 08/07/20 TIME: 10:51 Chief Complaint Chief Complaint IMPRESSION Acute hypoxic respiratory failure requiring VENT SUPPORT STATUS post trach placement 08/06/2020 Acute hypoxic respiratory failure/ARDS /pneumonia Bilateral perihilar and basilar opacities, progressed in the left base. 07-26 COVID-19 Subsegmental bilateral PE Leukocytosis NSTEMI AKA Lactic acidosis Hyponatremia, RESOLVED hgb 6.5 07-27, transfused 1 unit prbc's hyp[okalemia, on replacement Plan: Discussion of possible PEG tube placement Appreciate pulmonology recommendations Continue current ventilatory support, currently on 70% and PEEP of 6, avoid increasing PEEP 2/2 risk of barotrauma Follow chest x-ray and ABG, vent management as per pulmonology Heparin has been transitioned to Xarelto Solu-Medrol 40 mg every 12 hours Appreciate ID recommendationscontinue Remdesivir and empiric antibiotics IV fluids Discussed with RN and SW. Antibiotics per ID-- off ABX, infectious disease following increasing leukocytosis has completed full course of remdesivir continue tube feeding for nutritional support 35 MIN CC TIME History of Present Illness History of Present Illness 08/07/2020 No acute events overnight. Fever T-max of 101.1. Trach was placed yesterday. On minimal vent settings.> 50% time spent in patient chart, labs, and imaging review and in discussion with RN and SW 08/06/2020 No acute events overnight. Patient is afebrile. Currently on minimal vent settings. Pending trach today. Patient's chart, labs, images were reviewed and discussed with RN A total of 35 minutes of critical care time was spent in reviewing chart, labs, and images. Discussed with RN and SW. 08/05/2020 Patient seen and evaluated. No acute events, febrile overnight. Mechanically ventilated with FiO2 40%, PEEP 6. Plan for trach Thursday. 08/04/2020 Patient seen in Covid ICU. Still with low-grade fevers. Mechanically ventilated, FiO2 40%, PEEP 6. No acute change, plan for trach Thursday. 08/03/2020 Patient seen in COVID-19 ICU. Still with low-grade fever. He remains on vent with FiO2 100%, PEEP 12. Plan for trach on Thursday, and PEG at some point after. 08/02/2020 Patient seen and evaluated in Covid ICU. He is febrile this morning. Still intubated mechanically ventilated with FiO2 40 %, PEEP 6. Plans for tracheostomy today. 08/01/2020 Patient seen in [facility] ICU. Patient remains slightly febrile. Mechanically ventilated, FiO2 45%, PEEP 6. Tracheostomy unable to perform yesterday, general surgery to attempt again today. Discussed with RN. 07/31/2020 Patient still spiking fevers. Patient remains on vent, FiO2 45%, PEEP 6. Tracheostomy tentatively planned for today. 07/30/2020 Patient seen in [place] [id number] ICU. He is febrile on vent, FiO2 45%, PEEP 6. Will attempt to speak with family about decision on trach and PEG tube. Discussed with RN. t max 102 f fio2 50% 07/21/2020 Patient no acute events reported overnight. Patient continues to require a lot of support from vent. Discussed with RN 09/19/2019 Patient continues to be pretty much the same , fio2 is at 70%, heparin 07/19/2020 Patient hypotensive today, we will follow recommendations from critical family member caretaker. Vent management as per design center consultant, no other complaints. 07/18/2020 Patient with no acute events reported overnight, fio2 is now at 75% PEEP of 6, Vent management as per pulmonary design center consultant slight increase in temperature noted over the lat 24 hours. Will continue to follow 07/17/2020 Patient with no acute events reported overnight, contineus to require an fio2 of 80%, continue with supportive measures. 07/16/2020 Patient with no acute events reported overnight, patient continues to require quite a bit of FiO2 at 80%. Vent management as per design center consultant, will place a call to family members after rounding. Discussed with RN 07/15/2020 Patient seen and examined bedside in the ICU. FiO2 80% PEEP of 6.pH 7.56, PCO2 32, PO2 56, HCO3 28. Will adjust respiratory rate accordingly to correct pH.> 50% time spent in patient chart, labs, and imaging review and in discussion with RN and JAVIER 07/14/2020 Patient seen and examined bedside. FiO2 65% and PEEP of 6 on vent. ABG: pH 7.26, PCO2 77, PO2 114, HCO3 34. We will adjust respiratory rate or tidal volume to titrate pH.> 50% time spent in patient chart, labs, and imaging review and in discussion with RN and JAVIER 07/13/2020 No acute events overnight. Patient examined bedside sedated and intubated. FiO2 70% PEEP of 6. Improved ABGs.> 50% time spent in patient chart, labs, and imaging review and in discussion with RN and JAVIER 07/12/2020 Patient seen and examined in the ICU. Sedated and intubated. FiO2 65, PEEP of 8 with improved oxygenation. pH 7.4, PCO2 48, PO2 94, HCO3 30. +500 cc fluid balance.> 50% time spent in patient chart, labs, and imaging review and in discussion with RN and JAVIER 07/11/2020 Patient seen and examined bedside in the ICU. Patient continues to be intubated and sedated. FiO2 75%, PEEP of 10. pH 7.40, PCO2 44, PO2 is 135, HCO3 26. Can likely decrease FiO2 due to improved oxygenation. +173 cc in the past 24 hours 07/10/2020 Patient seen and examined bedside in ICU. Patient is intubated and sedated. FiO2 90%, PEEP of 10, respiratory rate of 30. ABG: pH is 7.41, PCO2 42, PO2 113, HCO3 26. 07/09/2020 Patient seen and examined in the ICU. Intubated and sedated. Vent settings FiO2 90%, PEEP of 10, respiratory rate of 30. 07/05: Patient seen in ICU, still intubated and sedated. COVID-19 pending. Patient remains on heparin infusion. Discussed with RN, will try to have central line placed per anesthesia. 07/06: Patient seen in ICU. Still FiO2 100% on vent and sedated. COVID-19 positive. Continue heparin infusion, Zosyn, steroids. 07/07: Covid positive patient seen in ICU. On vent with FiO2 100%, PEEP 10. Continue remdesivir, steroids, Zosyn. Continue to monitor 07/08: Patient seen in Covid ICU. Still on vent with FiO2 100%, PEEP 10. Af ebrile. No acute events overnight. Continue steroids, antibiotics, and remdesivir. Patient is 49-year-old male with past medical history of hypertension, who presents to the ED with complaints of worsening shortness of breath over the past 5 days. Associated sore throat, fatigue, and generalized weakness. Patient was reportedly tested for COVID-19 last Thursday, but he had negative test results. His symptoms acutely worsened yesterday. Upon arrival to the ER his oxygen saturation was 60% on room air. He was placed on BiPAP and admitted to the ICU. Patient was subsequently intubated due to worsening respiratory failu re. Vitals/I&O Vitals/I&O: Vital Signs Date Time Temp Pulse Resp B/P (MAP) Pulse Ox O2 Delivery O2 Flow Rate FiO2 08/07/20 10:08 100.2 95 18 103/60 (74) 96 Ventilator 100.2 08/06/20 22:41 15.0 I & O 08/06/20 08/06/20 08/07/20 15:00 23:00 07:00 Intake Total 311 ml Output Total 650 ml 710 ml 520 ml Balance -650 ml -399 ml -520 ml Physical Exam Physical Exam: General intubated/sedated HEENT normocephalic atraumatic , trach LUNGS: Coarse breath sounds anteriorly HEART: S1-S2 no murmurs ABDOMEN: Nondistended, soft bowel sounds present Fernandez in place SKIN: No generalized rash Right upper extremity PICC line removed PIV Clean Neuro intubated/sedated General: Other (sedated ) Assessment and Plan Assessmemt and Plan Problems Medical Problems: (1) Acute respiratory failure with hypoxia Status: Acute (2) PRIYA (acute kidney injury) Status: Acute (3) Elevated troponin I level Status: Acute (4) Pulmonary emboli Status: Acute (5) Suspected COVID-19 virus infection Status: Acute Comment Review of Relevant I have reviewed the following items trino (where applicable) has been applied. Medications: Current Medications Medications (Trade) Dose Ordered Sig/Natalee Route PRN Reason Start Time Stop Time Status Last Admin Dose Admin Acetaminophen (Tylenol Supp) 650 mg PRN Q6HRS PRN MT MILD PAIN / TEMP > 100.3'F 08/06/20 20:45 08/06/20 21:07 Justifications for Admission Other Justification DOROTHEA VIRK MD Aug 07, 2020 10:53
[2020-08-07] MEDS: ACETAMINOPHEN 650 MG SUPP.RECT. PR PRN ×2 (11:33→19:28)
[2020-08-07] MEDS: IV NORMAL SALINE 1000ML BAG 1,000 ML IV SCH ×2 (11:56→21:03)
[2020-08-07] MEDS: fentaNYL HIGH DOSE PCA 55 ML IV PRN (15:25)
[2020-08-07] MEDS: HEPARIN 25,000UTS/250ML PREMIX 250 ML IV PRN (16:13)
--- NOTE | 2020-08-07 16:20 | NUR ---
SS following up with discharge planning. SS reviewed pt chart and discussed with pt RN. Pt is currently on the vent at 40%. Pt had trach placed on 08/06/2020. Possible peg placement on , 08/09/2020. COVID19 negative now. Self pay. SS will continue to follow for discharge planning.
[2020-08-08] VITALS (24 sets, daily range): BP systolic 102–141; BP diastolic 56–90
[2020-08-08] MEDS: PROPOFOL 100 ML IV PRN ×3 (05:23→19:15)
[2020-08-08] MEDS: MIDAZOLAM 100mg/100ml NS BAG 100 ML IV PRN ×2 (06:14→18:19)
[2020-08-08] MEDS: fentaNYL HIGH DOSE PCA 55 ML IV PRN ×3 (06:14→22:49)
[2020-08-08] MEDS: IV NORMAL SALINE 1000ML BAG 1,000 ML IV SCH ×2 (06:15→15:20)
--- NOTE | 2020-08-08 07:20 | PDOC ---
Infectious Disease Note Subjective Subjective Patient with trach on vent ROS ROS no n/v/d/ Vital Sign Vital Signs Vital Signs Date Time Temp Pulse Resp B/P (MAP) Pulse Ox O2 Delivery O2 Flow Rate FiO2 08/08/20 07:10 99.0 77 22 112/67 (82) 100 Ventilator 99.0 08/07/20 15:55 15.0 Physical Exam PHYSICAL EXAM General intubated/sedated HEENT normocephalic atraumatic , trach LUNGS: Coarse breath sounds anteriorly HEART: S1-S2 no murmurs ABDOMEN: Nondistended, soft bowel sounds present Fernandez in place SKIN: No generalized rash Right upper extremity PICC line removed PIV Clean Neuro intubated/sedated Labs Lab Laboratory Tests Test 08/07/20 22:00 08/07/20 22:05 08/08/20 05:30 Activated Partial Thromboplast Time 85 SEC (24-38) 47 SEC (24-38) Heparin Anti-Xa Act, Unfractionated 0.16 IU/mL (0.30-0.70) Micro sputum enterobacter sputum afb stain neg Objective Assessment Fever Leukocytosis improved COVID-19 positive. Status post remdesivir, steroids Acute hypoxic respiratory failure/ARDS /pneumonia Bilateral pulmonary emboli. Hypertension. Bacteremia 07/23 08/25 bottles staph hominis likely contaminant Repeat blood cultures staph capitis likely contaminant Enterobacter UTI and pneumonia Plan Plan of Care RUE PICC line DC'd Fernandez changed 07/26 Follow-up repeat BC Monitor labs and cultures D/W RN fever ? may have TB tracheal aspirate for afb,, culture pending MONALISA ROTHMAN MD Aug 08, 2020 07:20
[2020-08-08] MEDS: PANTOPRAZOLE IV PUSH 40 MG VIAL. IVP SCH (07:30)
--- NOTE | 2020-08-08 08:11 | PDOC ---
PULMONARY PROGRESS NOTES DATE: 08/08/20 TIME: 08:10 Subjective PT. remains on vent support , 40% FiO2 and a PEEP of 6 Status post tracheostomy on 08/06/2020 Continues to have fevers No other concerns from nursing overnight Vitals Vital Signs Date Time Temp Pulse Resp B/P (MAP) Pulse Ox O2 Delivery O2 Flow Rate FiO2 08/08/20 07:26 18 100 Ventilator 08/08/20 07:10 99.0 77 112/67 (82) 99.0 08/07/20 15:55 15.0 Comments Patient seen during COVID-19 pandemic visual exam performed Intubated/sedated trach midline sutures in place no accessory muscle use RRR No obvious rash or edema Labs Laboratory Tests Test 08/07/20 22:00 08/07/20 22:05 08/08/20 05:30 Activated Partial Thromboplast Time 85 SEC (24-38) 47 SEC (24-38) Heparin Anti-Xa Act, Unfractionated 0.16 IU/mL (0.30-0.70) Laboratory Tests Test 08/07/20 22:00 08/07/20 22:05 08/08/20 05:30 Activated Partial Thromboplast Time 85 SEC (24-38) 47 SEC (24-38) Heparin Anti-Xa Act, Unfractionated 0.16 IU/mL (0.30-0.70) Comments CXR 08/06 IMPRESSION: 1. Mild improvement in bilateral airspace disease. 2. Bilateral pleural effusions, left greater than right. Impression . IMPRESSION: 1. Acute hypoxemic respiratory failure./ALI/ARDS due to COVID -19 2. Acute pulmonary embolism with cor pulmonale. 3. COVID-[address] chest revealing ground glass opacities. 5. Hypertension. 6. History of bronchitis. 7. Elevated troponin. 8. Acute kidney injury. 9. Leukocytosis. 10. Covid-19 positive 11. Possible loculated hydroPTX left base 12. fever ?tb Plan . Continue current ventilatory support, FiO2 40% and a PEEP of 6, Status post tracheostomy 08/06/2020, Hold ventilator weaning for 48 hours status post tracheostomy Continue heparin drip, stopped 4 hours prior to procedure reviewed chest x-ray and ABG, Follow cardiology recommendations Antibiotics per ID--AFB negative, repeat cultures negative, continues to have fevers, currently off ABX Has completed full course of remdesivir Continue tube feeding for nutritional support DVT/GI prophylaxis,Protonix Discussed with RN and RT Pt. is FULL CODE critically ill Critical care time [id number] ALVIN RAMSEY MD Aug 08, 2020 08:11
[2020-08-08 08:33] LABS: BASE EXCESS ABG 4 mmol/L (-3-3); HCO3 ABG 29 mmol/L (21-28); PCO2 ABG 47 mmHg (35-46); PO2 ABG 62 mmHg (75-108); SAT O2 ABG 91 % (92-99)
[2020-08-08] MEDS: ZINC SULFATE 220 MG CAPSULE. PO SCH (09:00)
[2020-08-08] MEDS: CHOLECALCIFEROL (VITAMIN D3) 5,000 UNIT CAPSULE PO SCH (09:00)
--- NOTE | 2020-08-08 09:35 | PDOC ---
Date of Service: DATE: 08/08/20 TIME: 09:33 Objective: Objective: D/w nurse. Vital Signs: Vital Signs Date Time Temp Pulse Resp B/P (MAP) Pulse Ox O2 Delivery O2 Flow Rate FiO2 08/08/20 08:19 100 Ventilator 08/08/20 08:00 98.9 85 22 115/68 (84) 98.9 08/07/20 15:55 15.0 Labs: Laboratory Tests Test 08/07/20 22:00 08/07/20 22:05 08/08/20 05:30 08/08/20 08:30 Activated Partial Thromboplast Time 85 SEC 47 SEC Heparin Anti-Xa Act, Unfractionated 0.16 IU/mL O2 Saturation 91 % Arterial Blood pH 7.41 Arterial Blood pCO2 at Patient Temp 47 mmHg Arterial Blood pO2 at Patient Temp 62 mmHg Arterial Blood HCO3 29 mmol/L Arterial Blood Base Excess 4 mmol/L BLOOD CULTURE Preliminary NO GROWTH AFTER 1 DAY PE: LUNGS: trach/vent ABD: non-distended NEURO/PSYCH: sedated A/P: COVID-19 infection - positive 07/03, negative 07/31 Resp failure s/p tracheostomy Fever - better -- Plans for PEG tomorrow. Hold Heparin at midnight - d/w nurse yesterday and today. Justicifation of Admission Dx: Justifications for Admission: Justification of Admission Dx: Yes LYNETTE CELIS Aug 08, 2020 09:35
--- NOTE | 2020-08-08 11:10 | PDOC ---
[employer] PROGRESS NOTE Date of Service DOS: DATE: 08/08/20 TIME: 11:09 Chief Complaint Chief Complaint IMPRESSION Acute hypoxic respiratory failure requiring VENT SUPPORT STATUS post trach placement 08/06/2020 Acute hypoxic respiratory failure/ARDS /pneumonia Bilateral perihilar and basilar opacities, progressed in the left base. 07-26 COVID-19 Subsegmental bilateral PE Leukocytosis NSTEMI AKA Lactic acidosis Hyponatremia, RESOLVED hgb 6.5 07-27, transfused 1 unit prbc's hyp[okalemia, on replacement Plan: Discussion of possible PEG tube placement Appreciate pulmonology recommendations Continue current ventilatory support, currently on 70% and PEEP of 6, avoid increasing PEEP 2/2 risk of barotrauma Follow chest x-ray and ABG, vent management as per pulmonology Heparin has been transitioned to Xarelto Solu-Medrol 40 mg every 12 hours Appreciate ID recommendationscontinue Remdesivir and empiric antibiotics IV fluids Discussed with RN and SW. Antibiotics per ID-- off ABX, infectious disease following increasing leukocytosis has completed full course of remdesivir continue tube feeding for nutritional support 35 MIN CC TIME History of Present Illness History of Present Illness 08/08/2020 Patient tolerating trach and ventilatory goldy support on 40% FiO2 and 5 of PEEP. Pending PEG tube placement tomorrow.> 50% time spent in patient chart, labs, and imaging review and in discussion with RN and SW 08/07/2020 No acute events overnight. Fever T-max of 101.1. Trach was placed yesterday. On minimal vent settings.> 50% time spent in patient chart, labs, and imaging review and in discussion with RN and SW 08/06/2020 No acute events overnight. Patient is afebrile. Currently on minimal vent settings. Pending trach today. Patient's chart, labs, images were reviewed and discussed with RN A total of 35 minutes of critical care time was spent in reviewing chart, labs, and images. Discussed with RN and SW. 08/05/2020 Patient seen and evaluated. No acute events, febrile overnight. Mechanically ventilated with FiO2 40%, PEEP 6. Plan for trach Thursday. 08/04/2020 Patient seen in [facility] ICU. Still with low-grade fevers. Mechanically vent ilated, FiO2 40%, PEEP 6. No acute change, plan for trach Thursday. 08/03/2020 Patient seen in [place] [address] ICU. Still with low-grade fever. He remains on vent with FiO2 100%, PEEP 12. Plan for trach on Thursday, and PEG at some point after. 08/02/2020 Patient seen and evaluated in [facility] ICU. He is febrile this morning. Still intubated mechanically ventilated with FiO2 40 %, PEEP 6. Plans for tracheostomy today. 08/01/2020 Patient seen in [facility] ICU. Patient remains slightly febrile. Mechanically ventilated, FiO2 45%, PEEP 6. Tracheostomy unable to perform yesterday, general surgery to attempt again today. Discussed with RN. 07/31/2020 Patient still spiking fevers. Patient remains on vent, FiO2 45%, PEEP 6. Tracheostomy tentatively planned for today. 07/30/2020 Patient seen in [place] [address] ICU. He is febrile on vent, FiO2 45%, PEEP 6. Will attempt to speak with family about decision on trach and PEG tube. Discussed with RN. t max 102 f fio2 50% 07/21/2020 Patient no acute events reported overnight. Patient continues to require a lot of support from vent. Discussed with RN 09/19/2019 Patient continues to be pretty much the same , fio2 is at 70%, heparin 07/19/2020 Patient hypotensive today, we will follow recommendations from critical healthcare analyst. Vent management as per reporting process consultant, no other complaints. 07/18/2020 Patient with no acute events reported overnight, fio2 is now at 75% PEEP of 6, Vent management as per pulmonary reporting process consultant slight increase in temperature noted over the lat 24 hours. Will continue to follow 07/17/2020 Patient with no acute events reported overnight, contineus to require an fio2 of 80%, continue with supportive measures. 07/16/2020 Patient with no acute events reported overnight, patient continues to require quite a bit of FiO2 at 80%. Vent management as per reporting process consultant, will place a call to family members after rounding. Discussed with RN 07/15/2020 Patient seen and examined bedside in the ICU. FiO2 80% PEEP of 6.pH 7.56, PCO2 32, PO2 56, HCO3 28. Will adjust respiratory rate accordingly to correct pH.> 50% time spent in patient chart, labs, and imaging review and in discussion with RN and SW 07/14/2020 Patient seen and examined bedside. FiO2 65% and PEEP of 6 on vent. ABG: pH 7.26, PCO2 77, PO2 114, HCO3 34. We will adjust respiratory rate or tidal volume to titrate pH.> 50% time spent in patient chart, labs, and imaging review and in discussion with RN and JAVIER 07/13/2020 No acute events overnight. Patient examined bedside sedated and intubated. F iO2 70% PEEP of 6. Improved ABGs.> 50% time spent in patient chart, labs, and imaging review and in discussion with RN and JAVIER 07/12/2020 Patient seen and examined in the ICU. Sedated and intubated. FiO2 65, PEEP of 8 with improved oxygenation. pH 7.4, PCO2 48, PO2 94, HCO3 30. +500 cc fluid balance.> 50% time spent in patient chart, labs, and imaging review and in discussion with RN and JAVIER 07/11/2020 Patient seen and examined bedside in the ICU. Patient continues to be intubated and sedated. FiO2 75%, PEEP of 10. pH 7.40, PCO2 44, PO2 is 135, HCO3 26. Can likely decrease FiO2 due to improved oxygenation. +173 cc in the past 24 hours 07/10/2020 Patient seen and examined bedside in ICU. Patient is intubated and sedated. FiO2 90%, PEEP of 10, respiratory rate of 30. ABG: pH is 7.41, PCO2 42, PO2 113, HCO3 26. 07/09/2020 Patient seen and examined in the ICU. Intubated and sedated. Vent settings FiO2 90%, PEEP of 10, respiratory rate of 30. 07/05: Patient seen in ICU, still intubated and sedated. COVID-19 pending. Patient remains on heparin infusion. Discussed with RN, will try to have central line placed per anesthesia. 07/06: Patient seen in ICU. Still FiO2 100% on vent and sedated. COVID-19 positive. Continue heparin infusion, Zosyn, steroids. 07/07: Covid positive patient seen in ICU. On vent with FiO2 100%, PEEP 10. Continue remdesivir, steroids, Zosyn. Continue to monitor 07/08: Patient seen in [facility] ICU. Still on vent with FiO2 100%, PEEP 10. Afebrile. No acute events overnight. Continue steroids, antibiotics, and remdesivir. Patient is 49-year-old male with past medical history of hypertension, who presents to the ED with complaints of worsening shortness of breath over the past 5 days. Associated sore throat, fatigue, and generalized weakness. Patient was reportedly tested for COVID-19 last Thursday, but he had negative test results. His symptoms acutely worsened yesterday. Upon arrival to the ER his oxygen saturation was 60% on room air. He was placed on BiPAP and admitted to the ICU. Patient was subsequently intubated due to worsening respiratory failure. Vitals/I&O Vitals/I&O: Vital Signs Date Time Temp Pulse Resp B/P (MAP) Pulse Ox O2 Delivery O2 Flow Rate FiO2 08/08/20 10:28 99.3 87 22 120/67 (84) 100 Ventilator 99.3 08/07/20 15:55 15.0 I & O 08/07/20 08/07/20 08/08/20 15:00 23:00 07:00 Intake Total 1120 ml 1582 ml Output Total 270 ml 400 ml 260 ml Balance -270 ml 720 ml 1322 ml Physical Exam Physical Exam: General intubated/sedated HEENT normocephalic atraumatic , trach LUNGS: Coarse breath sounds anteriorly HEART: S1-S2 no murmurs ABDOMEN: Nondistended, soft bowel sounds present Fernandez in place SKIN: No generalized rash Right upper extremity PICC line removed PIV Clean Neuro intubated/sedated General: Other (sedated ) Labs Labs: Laboratory Tests Test 08/07/20 22:00 08/07/20 22:05 08/08/20 05:30 08/08/20 08:30 Activated Partial Thromboplast Time 85 SEC (24-38) 47 SEC (24-38) Heparin Anti-Xa Act, Unfractionated 0.16 IU/mL (0.30-0.70) O2 Saturation 91 % (92-99) Arterial Blood pH 7.41 (7.35-7.45) Arterial Blood pCO2 at Patient Temp 47 mmHg (35-46) Arterial Blood pO2 at Patient Temp 62 mmHg (75-108) Arterial Blood HCO3 29 mmol/L (21-28) Arterial Blood Base Excess 4 mmol/L (-3-3) Assessment and Plan Assessmemt and Plan Problems Medical Problems: (1) Acute respiratory failure with hypoxia Status: Acute (2) PRIYA (acute kidney injury) Status: Acute (3) Elevated troponin I level Status: Acute (4) Pulmonary emboli Status: Acute (5) Suspected COVID-19 virus infection Status: Acute Comment Review of Relevant I have reviewed the following items trino (where applicable) has been applied. Medications: Current Medications Medications (Trade) Dose Ordered Sig/Natalee Route PRN Reason Start Time Stop Time Status Last Admin Dose Admin Sodium Chloride 1,000 ml @ 100 mls/hr Q10H IV 08/07/20 12:00 08/08/20 06:15 Justifications for Admission Other Justification DOROTHEA VIRK MD Aug 08, 2020 11:10
[2020-08-08 11:18] LABS: ALBUMIN 1.6 g/dL (3.4-5.0); ALBUMIN/GLOBULIN RATIO 0.3 (1.0-1.7); CALCIUM 8.5 mg/dL (8.5-10.1); CREATININE 0.4 mg/dL (0.7-1.3); GFR 227.7; POTASSIUM 3.5 mmol/L (3.5-5.1); TOTAL BILIRUBIN 0.3 mg/dL (0.2-1.0); TOTAL PROTEIN 6.5 g/dL (6.4-8.2)
[2020-08-08] MEDS: HEPARIN 25,000UTS/250ML PREMIX 250 ML IV PRN (11:27)
[2020-08-08 11:35] LABS: BASO # 0.1 x10^3/uL (0.0-0.2); BASO % 1 % (0-3); EOS # 0.3 x10^3/uL (0.0-0.7); EOS % 3 % (0-3); HEMATOCRIT 29.3 % (39.0-53.0); LYMPH # 1.5 x10^3/uL (1.0-4.8); LYMPH % 18 % (24-48); MEAN CORPUSCULAR HEMOGLOBIN 32 pg (25-35); MEAN CORPUSCULAR HGB CONC 34 g/dL (31-37); MEAN CORPUSCULAR VOLUME 94 fL (79-100); MONO # 1.1 x10^3/uL (0.0-1.1); MONO % 13 % (0-9); NEUT # 5.4 x10^3/uL (1.8-7.7); NEUT % 65 % (31-73); PLATELET COUNT 482 x10^3/uL (140-400); RED CELL DISTRIBUTION WIDTH 15.8 % (11.5-14.5); WHITE BLOOD COUNT 8.4 x10^3/uL (4.0-11.0)
[2020-08-08] MEDS: HEPARIN for IV BOLUS 10,000 UNIT/10 ML VIAL. IV PRN (12:41)
--- NOTE | 2020-08-08 14:27 | NUR ---
SS following up with discharge planning. SS reviewed pt chart and discussed with pt RN. Pt is currently on the vent at 40%. COVID19 negative now. Trach placed on 08/06/2020. Peg placement scheduled for 08/09/2020. Self pay. No legal DPOA available per [facility]. SS will continue to follow for discharge planning.
--- NOTE | 2020-08-08 19:29 | PDOC ---
SURGICAL PROGRESS NOTE DATE: 08/08/20 TIME: 19:27 Subjective Trach intact will sign off, but please call for questions. Vital Signs Vital Signs Date Time Temp Pulse Resp B/P (MAP) Pulse Ox O2 Delivery O2 Flow Rate FiO2 08/08/20 19:00 99.5 84 20 122/67 (85) 99 Ventilator 99.5 08/08/20 07:56 15.0 I&O Intake and Output 08/08/20 07:00 Intake Total 2702 ml Output Total 930 ml Balance 1772 ml IV Total 2702 ml Output Urine Total 930 ml Labs Laboratory Tests Test 08/07/20 22:00 08/07/20 22:05 08/08/20 05:30 08/08/20 08:30 Activated Partial Thromboplast Time 85 SEC (24-38) 47 SEC (24-38) Heparin Anti-Xa Act, Unfractionated 0.16 IU/mL (0.30-0.70) O2 Saturation 91 % (92-99) Arterial Blood pH 7.41 (7.35-7.45) Arterial Blood pCO2 at Patient Temp 47 mmHg (35-46) Arterial Blood pO2 at Patient Temp 62 mmHg (75-108) Arterial Blood HCO3 29 mmol/L (21-28) Arterial Blood Base Excess 4 mmol/L (-3-3) Test 08/08/20 10:35 White Blood Count 8.4 x10^3/uL (4.0-11.0) Red Blood Count 3.10 x10^6/uL (4.30-5.70) Hemoglobin 10.0 g/dL (13.0-17.5) Hematocrit 29.3 % (39.0-53.0) Mean Corpuscular Volume 94 fL (79-100) Mean Corpuscular Hemoglobin 32 pg (25-35) Mean Corpuscular Hemoglobin Concent 34 g/dL (31-37) Red Cell Distribution Width 15.8 % (11.5-14.5) Platelet Count 482 x10^3/uL (140-400) Neutrophils (%) (Auto) 65 % (31-73) Lymphocytes (%) (Auto) 18 % (24-48) Monocytes (%) (Auto) 13 % (0-9) Eosinophils (%) (Auto) 3 % (0-3) Basophils (%) (Auto) 1 % (0-3) Neutrophils # (Auto) 5.4 x10^3/uL (1.8-7.7) Lymphocytes # (Auto) 1.5 x10^3/uL (1.0-4.8) Monocytes # (Auto) 1.1 x10^3/uL (0.0-1.1) Eosinophils # (Auto) 0.3 x10^3/uL (0.0-0.7) Basophils # (Auto) 0.1 x10^3/uL (0.0-0.2) Heparin Anti-Xa Act, Unfractionated < 0.10 IU/mL (0.30-0.70) Sodium Level 136 mmol/L (136-145) Potassium Level 3.5 mmol/L (3.5-5.1) Chloride Level 99 mmol/L (98-107) Carbon Dioxide Level 29 mmol/L (21-32) Anion Gap 8 (6-14) Blood Urea Nitrogen 5 mg/dL (8-26) Creatinine 0.4 mg/dL (0.7-1.3) Estimated GFR (Cockcroft-Gault) 227.7 BUN/Creatinine Ratio 13 (6-20) Glucose Level 96 mg/dL (70-99) Calcium Level 8.5 mg/dL (8.5-10.1) Total Bilirubin 0.3 mg/dL (0.2-1.0) Aspartate Amino Transf (AST/SGOT) 18 U/L (15-37) Alanine Aminotransferase (ALT/SGPT) 26 U/L (16-63) Alkaline Phosphatase 104 U/L (46-116) Total Protein 6.5 g/dL (6.4-8.2) Albumin 1.6 g/dL (3.4-5.0) Albumin/Globulin Ratio 0.3 (1.0-1.7) Laboratory Tests Test 08/07/20 22:00 08/07/20 22:05 08/08/20 05:30 08/08/20 08:30 Activated Partial Thromboplast Time 85 SEC (24-38) 47 SEC (24-38) Heparin Anti-Xa Act, Unfractionated 0.16 IU/mL (0.30-0.70) O2 Saturation 91 % (92-99) Arterial Blood pH 7.41 (7.35-7.45) [facility] ([facility] Arterial Blood pO2 at Patient Temp 62 mmHg (75-108) Arterial Blood HCO3 29 mmol/L (21-28) Arterial Blood Base Excess 4 mmol/L (-3-3) Test 08/08/20 10:35 White Blood Count 8.4 x10^3/uL (4.0-11.0) Red Blood Count 3.10 x10^6/uL (4.30-5.70) Hemoglobin 10.0 g/dL (13.0-17.5) Hematocrit 29.3 % (39.0-53.0) Mean Corpuscular Volume 94 fL (79-100) Mean Corpuscular Hemoglobin 32 pg (25-35) Mean Corpuscular Hemoglobin Concent 34 g/dL (31-37) Red Cell Distribution Width 15.8 % (11.5-14.5) Platelet Count 482 x10^3/uL (140-400) Neutrophils (%) (Auto) 65 % (31-73) Lymphocytes (%) (Auto) 18 % (24-48) Monocytes (%) (Auto) 13 % (0-9) Eosinophils (%) (Auto) 3 % (0-3) Basophils (%) (Auto) 1 % (0-3) Neutrophils # (Auto) 5.4 x10^3/uL (1.8-7.7) Lymphocytes # (Auto) 1.5 x10^3/uL (1.0-4.8) Monocytes # (Auto) 1.1 x10^3/uL (0.0-1.1) Eosinophils # (Auto) 0.3 x10^3/uL (0.0-0.7) Basophils # (Auto) 0.1 x10^3/uL (0.0-0.2) Heparin Anti-Xa Act, Unfractionated < 0.10 IU/mL (0.30-0.70) Sodium Level 136 mmol/L (136-145) Potassium Level 3.5 mmol/L (3.5-5.1) Chloride Level 99 mmol/L (98-107) Carbon Dioxide Level 29 mmol/L (21-32) Anion Gap 8 (6-14) Blood Urea Nitrogen 5 mg/dL (8-26) Creatinine 0.4 mg/dL (0.7-1.3) Estimated GFR (Cockcroft-Gault) 227.7 BUN/Creatinine Ratio 13 (6-20) Glucose Level 96 mg/dL (70-99) Calcium Level 8.5 mg/dL (8.5-10.1) Total Bilirubin 0.3 mg/dL (0.2-1.0) Aspartate Amino Transf (AST/SGOT) 18 U/L (15-37) Alanine Aminotransferase (ALT/SGPT) 26 U/L (16-63) Alkaline Phosphatase 104 U/L (46-116) Total Protein 6.5 g/dL (6.4-8.2) Albumin 1.6 g/dL (3.4-5.0) Albumin/Globulin Ratio 0.3 (1.0-1.7) Problem List Problems Medical Problems: (1) Acute respiratory failure with hypoxia Status: Acute (2) PRIYA (acute kidney injury) Status: Acute (3) Elevated troponin I level Status: Acute (4) Pulmonary emboli Status: Acute (5) Suspected COVID-19 virus infection Status: Acute Justicifation of Admission Dx: Justifications for Admission: Justification of Admission Dx: Yes BRETT MCGEE MD Aug 08, 2020 19:29
[2020-08-09] VITALS (24 sets, daily range): BP systolic 89–127; BP diastolic 51–69
[2020-08-09] MEDS: PROPOFOL 100 ML IV PRN ×4 (00:48→20:10)
[2020-08-09] MEDS: IV NORMAL SALINE 1000ML BAG 1,000 ML IV SCH ×3 (00:48→21:08)
[2020-08-09] MEDS: MIDAZOLAM 100mg/100ml NS BAG 100 ML IV PRN ×3 (03:47→21:09)
[2020-08-09] MEDS ORDERED: IV RINGERS,LACTATED 1000ML 1,000 ML IV SCH (06:00)
[2020-08-09] MEDS ORDERED: PROCHLORPERAZINE 10 MG/2 ML VIAL. IVP PRN (06:00)
[2020-08-09 07:15] LABS: ALBUMIN 1.5 g/dL (3.4-5.0); ALBUMIN/GLOBULIN RATIO 0.3 (1.0-1.7); CALCIUM 8.4 mg/dL (8.5-10.1); CREATININE 0.4 mg/dL (0.7-1.3); GFR 227.7; POTASSIUM 3.6 mmol/L (3.5-5.1); TOTAL BILIRUBIN 0.4 mg/dL (0.2-1.0); TOTAL PROTEIN 5.9 g/dL (6.4-8.2)
--- NOTE | 2020-08-09 07:35 | PDOC ---
Infectious Disease Note Subjective Subjective Patient with trach on vent ROS ROS no n/v/d/ Vital Sign Vital Signs Vital Signs Date Time Temp Pulse Resp B/P (MAP) Pulse Ox O2 Delivery O2 Flow Rate FiO2 08/09/20 07:00 99.0 77 20 105/58 (74) 100 Ventilator 99.0 08/08/20 07:56 15.0 Physical Exam PHYSICAL EXAM General intubated/sedated HEENT normocephalic atraumatic , trach LUNGS: Coarse breath sounds anteriorly HEART: S1-S2 no murmurs ABDOMEN: Nondistended, soft bowel sounds present Fernandez in place SKIN: No generalized rash Right upper extremity PICC line removed PIV Clean Neuro intubated/sedated Labs Lab Laboratory Tests Test 08/08/20 08:30 08/08/20 10:35 08/08/20 20:18 08/09/20 06:15 O2 Saturation 91 % (92-99) Arterial Blood pH 7.41 (7.35-7.45) Arterial Blood pCO2 at Patient Temp 47 mmHg (35-46) Arterial Blood pO2 at Patient Temp 62 mmHg (75-108) Arterial Blood HCO3 29 mmol/L (21-28) Arterial Blood Base Excess 4 mmol/L (-3-3) White Blood Count 8.4 x10^3/uL (4.0-11.0) Red Blood Count 3.10 x10^6/uL (4.30-5.70) Hemoglobin 10.0 g/dL (13.0-17.5) Hematocrit 29.3 % (39.0-53.0) Mean Corpuscular Volume 94 fL (79-100) Mean Corpuscular Hemoglobin 32 pg (25-35) Mean Corpuscular Hemoglobin Concent 34 g/dL (31-37) Red Cell Distribution Width 15.8 % (11.5-14.5) Platelet Count 482 x10^3/uL (140-400) Neutrophils (%) (Auto) 65 % (31-73) Lymphocytes (%) (Auto) 18 % (24-48) Monocytes (%) (Auto) 13 % (0-9) Eosinophils (%) (Auto) 3 % (0-3) Basophils (%) (Auto) 1 % (0-3) Neutrophils # (Auto) 5.4 x10^3/uL (1.8-7.7) Lymphocytes # (Auto) 1.5 x10^3/uL (1.0-4.8) Monocytes # (Auto) 1.1 x10^3/uL (0.0-1.1) Eosinophils # (Auto) 0.3 x10^3/uL (0.0-0.7) Basophils # (Auto) 0.1 x10^3/uL (0.0-0.2) Heparin Anti-Xa Act, Unfractionated < 0.10 IU/mL (0.30-0.70) Sodium Level 136 mmol/L (136-145) 136 mmol/L (136-145) Potassium Level 3.5 mmol/L (3.5-5.1) 3.6 mmol/L (3.5-5.1) Chloride Level 99 mmol/L (98-107) 100 mmol/L (98-107) Carbon Dioxide Level 29 mmol/L (21-32) 27 mmol/L (21-32) Anion Gap 8 (6-14) 9 (6-14) Blood Urea Nitrogen 5 mg/dL (8-26) 4 mg/dL (8-26) Creatinine 0.4 mg/dL (0.7-1.3) 0.4 mg/dL (0.7-1.3) Estimated GFR (Cockcroft-Gault) 227.7 227.7 BUN/Creatinine Ratio 13 (6-20) 10 (6-20) Glucose Level 96 mg/dL (70-99) 70 mg/dL (70-99) Calcium Level 8.5 mg/dL (8.5-10.1) 8.4 mg/dL (8.5-10.1) Total Bilirubin 0.3 mg/dL (0.2-1.0) 0.4 mg/dL (0.2-1.0) Aspartate Amino Transf (AST/SGOT) 18 U/L (15-37) 16 U/L (15-37) Alanine Aminotransferase (ALT/SGPT) 26 U/L (16-63) 20 U/L (16-63) Alkaline Phosphatase 104 U/L (46-116) 91 U/L (46-116) Total Protein 6.5 g/dL (6.4-8.2) 5.9 g/dL (6.4-8.2) Albumin 1.6 g/dL (3.4-5.0) 1.5 g/dL (3.4-5.0) Albumin/Globulin Ratio 0.3 (1.0-1.7) 0.3 (1.0-1.7) Activated Partial Thromboplast Time 85 SEC (24-38) Micro sputum enterobacter sputum afb stain neg Objective Assessment Fever Leukocytosis improved COVID-19 positive. Status post remdesivir, steroids Acute hypoxic respiratory failure/ARDS /pneumonia Bilateral pulmonary emboli. Hypertension. Bacteremia 07/23 08/25 bottles staph hominis likely contaminant Repeat blood cultures staph capitis likely contaminant Enterobacter UTI and pneumonia Plan Plan of Care RUE PICC line DC'd Jim changed 07/26 Follow-up repeat BC Monitor labs and cultures D/W RN fever ? may have TB tracheal aspirate for afb,, culture pending MONALISA ROTHMAN MD Aug 09, 2020 07:35
[2020-08-09] MEDS: ZINC SULFATE 220 MG CAPSULE. PO SCH (07:56)
[2020-08-09] MEDS: CHOLECALCIFEROL (VITAMIN D3) 5,000 UNIT CAPSULE PO SCH (07:56)
[2020-08-09] MEDS: PANTOPRAZOLE IV PUSH 40 MG VIAL. IVP SCH (08:02)
--- NOTE | 2020-08-09 08:07 | PDOC ---
PULMONARY PROGRESS NOTES DATE: 08/09/20 TIME: 08:06 Subjective PT. remains on vent support , 40% FiO2 and a PEEP of 6 Status post tracheostomy on 08/06/2020' and now S/P peg tube on 08/09 Continues to have fevers No other concerns from nursing overnight Vitals Vital Signs Date Time Temp Pulse Resp B/P (MAP) Pulse Ox O2 Delivery O2 Flow Rate FiO2 08/09/20 08:00 99.1 89 20 120/65 (83) 100 Ventilator 99.1 08/08/20 07:56 15.0 Comments Patient seen during pandemic visual exam performed Intubated/sedated trach midline sutures in place no accessory muscle use RRR No obvious rash or edema Labs Laboratory Tests Test 08/07/20 22:00 08/07/20 22:05 08/08/20 05:30 08/08/20 08:30 Activated Partial Thromboplast Time 85 SEC (24-38) 47 SEC (24-38) Heparin Anti-Xa Act, Unfractionated 0.16 IU/mL (0.30-0.70) O2 Saturation 91 % (92-99) Arterial Blood pH 7.41 (7.35-7.45) Arterial Blood pCO2 at Patient Temp 47 mmHg (35-46) Arterial Blood pO2 at Patient Temp 62 mmHg (75-108) Arterial Blood HCO3 29 mmol/L (21-28) Arterial Blood Base Excess 4 mmol/L (-3-3) Test 08/08/20 10:35 08/08/20 20:18 08/09/20 06:15 White Blood Count 8.4 x10^3/uL (4.0-11.0) Red Blood Count 3.10 x10^6/uL (4.30-5.70) Hemoglobin 10.0 g/dL (13.0-17.5) Hematocrit 29.3 % (39.0-53.0) Mean Corpuscular Volume 94 fL (79-100) Mean Corpuscular Hemoglobin 32 pg (25-35) Mean Corpuscular Hemoglobin Concent 34 g/dL (31-37) Red Cell Distribution Width 15.8 % (11.5-14.5) Platelet Count 482 x10^3/uL (140-400) Neutrophils (%) (Auto) 65 % (31-73) Lymphocytes (%) (Auto) 18 % (24-48) Monocytes (%) (Auto) 13 % (0-9) Eosinophils (%) (Auto) 3 % (0-3) Basophils (%) (Auto) 1 % (0-3) Neutrophils # (Auto) 5.4 x10^3/uL (1.8-7.7) Lymphocytes # (Auto) 1.5 x10^3/uL (1.0-4.8) Monocytes # (Auto) 1.1 x10^3/uL (0.0-1.1) Eosinophils # (Auto) 0.3 x10^3/uL (0.0-0.7) Basophils # (Auto) 0.1 x10^3/uL (0.0-0.2) Heparin Anti-Xa Act, Unfractionated < 0.10 IU/mL (0.30-0.70) Sodium Level 136 mmol/L (136-145) 136 mmol/L (136-145) Potassium Level 3.5 mmol/L (3.5-5.1) 3.6 mmol/L (3.5-5.1) Chloride Level 99 mmol/L (98-107) 100 mmol/L (98-107) Carbon Dioxide Level 29 mmol/L (21-32) 27 mmol/L (21-32) Anion Gap 8 (6-14) 9 (6-14) Blood Urea Nitrogen 5 mg/dL (8-26) 4 mg/dL (8-26) Creatinine 0.4 mg/dL (0.7-1.3) 0.4 mg/dL (0.7-1.3) Estimated GFR (Cockcroft-Gault) 227.7 227.7 BUN/Creatinine Ratio 13 (6-20) 10 (6-20) Glucose Level 96 mg/dL (70-99) 70 mg/dL (70-99) Calcium Level 8.5 mg/dL (8.5-10.1) 8.4 mg/dL (8.5-10.1) Total Bilirubin 0.3 mg/dL (0.2-1.0) 0.4 mg/dL (0.2-1.0) Aspartate Amino Transf (AST/SGOT) 18 U/L (15-37) 16 U/L (15-37) Alanine Aminotransferase (ALT/SGPT) 26 U/L (16-63) 20 U/L (16-63) Alkaline Phosphatase 104 U/L (46-116) 91 U/L (46-116) Total Protein 6.5 g/dL (6.4-8.2) 5.9 g/dL (6.4-8.2) Albumin 1.6 g/dL (3.4-5.0) 1.5 g/dL (3.4-5.0) Albumin/Globulin Ratio 0.3 (1.0-1.7) 0.3 (1.0-1.7) Activated Partial Thromboplast Time 85 SEC (24-38) Laboratory Tests Test 08/08/20 08:30 08/08/20 10:35 08/08/20 20:18 08/09/20 06:15 O2 Saturation 91 % (92-99) Arterial Blood pH 7.41 (7.35-7.45) Arterial Blood pCO2 at Patient Temp 47 mmHg (35-46) Arterial Blood pO2 at Patient Temp 62 mmHg (75-108) Arterial Blood HCO3 29 mmol/L (21-28) Arterial Blood Base Excess 4 mmol/L (-3-3) White Blood Count 8.4 x10^3/uL (4.0-11.0) Red Blood Count 3.10 x10^6/uL (4.30-5.70) Hemoglobin 10.0 g/dL (13.0-17.5) Hematocrit 29.3 % (39.0-53.0) Mean Corpuscular Volume 94 fL (79-100) Mean Corpuscular Hemoglobin 32 pg (25-35) Mean Corpuscular Hemoglobin Concent 34 g/dL (31-37) Red Cell Distribution Width 15.8 % (11.5-14.5) Platelet Count 482 x10^3/uL (140-400) Neutrophils (%) (Auto) 65 % (31-73) Lymphocytes (%) (Auto) 18 % (24-48) Monocytes (%) (Auto) 13 % (0-9) Eosinophils (%) (Auto) 3 % (0-3) Basophils (%) (Auto) 1 % (0-3) Neutrophils # (Auto) 5.4 x10^3/uL (1.8-7.7) Lymphocytes # (Auto) 1.5 x10^3/uL (1.0-4.8) Monocytes # (Auto) 1.1 x10^3/uL (0.0-1.1) Eosinophils # (Auto) 0.3 x10^3/uL (0.0-0.7) Basophils # (Auto) 0.1 x10^3/uL (0.0-0.2) Heparin Anti-Xa Act, Unfractionated < 0.10 IU/mL (0.30-0.70) Sodium Level 136 mmol/L (136-145) 136 mmol/L (136-145) Potassium Level 3.5 mmol/L (3.5-5.1) 3.6 mmol/L (3.5-5.1) Chloride Level 99 mmol/L (98-107) 100 mmol/L (98-107) Carbon Dioxide Level 29 mmol/L (21-32) 27 mmol/L (21-32) Anion Gap 8 (6-14) 9 (6-14) Blood Urea Nitrogen 5 mg/dL (8-26) 4 mg/dL (8-26) Creatinine 0.4 mg/dL (0.7-1.3) 0.4 mg/dL (0.7-1.3) Estimated GFR (Cockcroft-Gault) 227.7 227.7 BUN/Creatinine Ratio 13 (6-20) 10 (6-20) Glucose Level 96 mg/dL (70-99) 70 mg/dL (70-99) Calcium Level 8.5 mg/dL (8.5-10.1) 8.4 mg/dL (8.5-10.1) Total Bilirubin 0.3 mg/dL (0.2-1.0) 0.4 mg/dL (0.2-1.0) Aspartate Amino Transf (AST/SGOT) 18 U/L (15-37) 16 U/L (15-37) Alanine Aminotransferase (ALT/SGPT) 26 U/L (16-63) 20 U/L (16-63) Alkaline Phosphatase 104 U/L (46-116) 91 U/L (46-116) Total Protein 6.5 g/dL (6.4-8.2) 5.9 g/dL (6.4-8.2) Albumin 1.6 g/dL (3.4-5.0) 1.5 g/dL (3.4-5.0) Albumin/Globulin Ratio 0.3 (1.0-1.7) 0.3 (1.0-1.7) Activated Partial Thromboplast Time 85 SEC (24-38) Comments CXR 08/06 IMPRESSION: 1. Mild improvement in bilateral airspace disease. 2. Bilateral pleural effusions, left greater than right. Impression . IMPRESSION: 1. Acute hypoxemic respiratory failure./ALI/ARDS due to COVID -19 2. Acute pulmonary embolism with cor pulmonale. 3. COVID-[address] chest revealing ground glass opacities. 5. Hypertension. 6. History of bronchitis. 7. Elevated troponin. 8. Acute kidney injury. 9. Leukocytosis. 10. Covid-19 positive 11. Possible loculated hydroPTX left base 12. fever ?tb Plan . 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 is FULL CODE critically ill Critical care time 0900-0930AM ALVIN RAMSEY MD Aug 09, 2020 08:07
--- NOTE | 2020-08-09 11:13 | PDOC ---
[employer] PROGRESS NOTE Date of Service DOS: DATE: 08/09/20 TIME: 11:12 Chief Complaint Chief Complaint IMPRESSION Acute hypoxic respiratory failure requiring VENT SUPPORT STATUS post trach placement 08/06/2020 Acute hypoxic respiratory failure/ARDS /pneumonia Bilateral perihilar and basilar opacities, progressed in the left base. 07-26 COVID-19 Subsegmental bilateral PE Leukocytosis NSTEMI AKA Lactic acidosis Hyponatremia, RESOLVED hgb 6.5 07-27, transfused 1 unit prbc's hyp[okalemia, on replacement Plan: Pending PEG tube placement today Appreciate pulmonology recommendations Continue current ventilatory support, currently on 70% and PEEP of 6, avoid increasing PEEP 2/2 risk of barotrauma Follow chest x-ray and ABG, vent management as per pulmonology Heparin has been transitioned to Xarelto Solu-Medrol 40 mg every 12 hours Appreciate ID recommendationscontinue Remdesivir and empiric antibiotics IV fluids Discussed with RN and SW. Antibiotics per ID-- off ABX, infectious disease following increasing leukocytosis has completed full course of remdesivir continue tube feeding for nutritional support History of Present Illness History of Present Illness 08/09/2020 No acute events overnight. T-max of 100.0 F. Patient is on minimal ventilatory settings.> 50% time spent in patient chart, labs, and imaging review and in discussion with RN and SW 08/08/2020 Patient tolerating trach and ventilatory goldy support on 40% FiO2 and 5 of PEEP. Pending PEG tube placement tomorrow.> 50% time spent in patient chart, labs, and imaging review and in discussion with RN and SW 08/07/2020 No acute events overnight. Fever T-max of 101.1. Trach was placed yesterday. On minimal vent settings.> 50% time spent in patient chart, labs, and imaging review and in discussion with RN and SW 08/06/2020 No acute events overnight. Patient is afebrile. Currently on minimal vent settings. Pending trach today. Patient's chart, labs, images were reviewed and discussed with RN A total of 35 minutes of critical care time was spent in reviewing chart, labs, and images. Discussed with RN and SW. 08/05/2020 Patient seen and evaluated. No acute events, febrile overnight. Mechanically ventilated with FiO2 40%, PEEP 6. Plan for trach Thursday. 08/04/2020 Patient seen in [facility] ICU. Still with low-grade fevers. Mechanically ventilated, FiO2 40%, PEEP 6. No acute change, plan for trach Thursday. 08/03/2020 Patient seen in [facility] ICU. Still with low-grade fever. He remains on vent with FiO2 100%, PEEP 12. Plan for trach on Thursday, and PEG at some point after. 08/02/2020 Patient seen and evaluated in [facility] ICU. He is febrile this morning. Still intubated mechanically ventilated with FiO2 40 %, PEEP 6. Plans for tracheostomy today. 08/01/2020 Patient seen in [facility] ICU. Patient remains slightly febrile. Mechanically ventilated, FiO2 45%, PEEP 6. Tracheostomy unable to perform yesterday, general surgery to attempt again today. Discussed with RN. 07/31/2020 Patient still spiking fevers. Patient remains on vent, FiO2 45%, PEEP 6. Trache ostomy tentatively planned for today. 07/30/2020 Patient seen in [place] [id number] ICU. He is febrile on vent, FiO2 45%, PEEP 6. Will a ttempt to speak with family about decision on trach and PEG tube. Discussed with RN. t max 102 f fio2 50% 07/21/2020 Patient no acute events reported overnight. Patient continues to require a lot of support from vent. Discussed with RN 09/19/2019 Patient continues to be pretty much the same , fio2 is at 70%, heparin 07/19/2020 Patient hypotensive today, we will follow recommendations from critical care mgr. Vent management as per managed security sales consultant, no other complaints. 07/18/2020 Patient with no acute events reported overnight, fio2 is now at 75% PEEP of 6, Vent management as per pulmonary managed security sales consultant slight increase in temperature noted over the lat 24 hours. Will continue to follow 07/17/2020 Patient with no acute events reported overnight, contineus to require an fio2 of 80%, continue with supportive measures. 07/16/2020 Patient with no acute events reported overnight, patient continues to require quite a bit of FiO2 at 80%. Vent management as per managed security sales consultant, will place a call to family members after rounding. Discussed with RN 07/15/2020 Patient seen and examined bedside in the ICU. FiO2 80% PEEP of 6.pH 7.56, PCO2 32, PO2 56, HCO3 28. Will adjust respiratory rate accordingly to correct pH.> 50% time spent in patient chart, labs, and imaging review and in discussion with RN and JAVIER 07/14/2020 Patient seen and examined bedside. FiO2 65% and PEEP of 6 on vent. ABG: pH 7.26, PCO2 77, PO2 114, HCO3 34. We will adjust respiratory rate or tidal volume to titrate pH.> 50% time spent in patient chart, labs, and imaging review and in discussion with RN and JAVIER 07/13/2020 No acute events overnight. Patient examined bedside sedated and intubated. FiO2 70% PEEP of 6. Improved ABGs.> 50% time spent in patient chart, labs, and imaging review and in discussion with RN and JAVIER 07/12/2020 Patient seen and examined in the ICU. Sedated and intubated. FiO2 65, PEEP of 8 with improved oxygenation. pH 7.4, PCO2 48, PO2 94, HCO3 30. +500 cc fluid balance.> 50% time spent in patient chart, labs, and imaging review and in discussion with RN and JAVIER 07/11/2020 Patient seen and examined bedside in the ICU. Patient continues to be intubated and sedated. FiO2 75%, PEEP of 10. pH 7.40, PCO2 44, PO2 is 135, HCO3 26. Can likely decrease FiO2 due to improved oxygenation. +173 cc in the past 24 hours 07/10/2020 Patient seen and examined bedside in ICU. Patient is intubated and sedated. FiO2 90%, PEEP of 10, respiratory rate of 30. ABG: pH is 7.41, PCO2 42, PO2 113, HCO3 26. 07/09/2020 Patient seen and examined in the ICU. Intubated and sedated. Vent settings FiO2 90%, PEEP of 10, respiratory rate of 30. 07/05: Patient seen in ICU, still intubated and sedated. COVID-19 pending. Patient remains on heparin infusion. Discussed with RN, will try to have central line placed per anesthesia. 07/06: Patient seen in ICU. Still FiO2 100% on vent and sedated. COVID-19 positive. Continue heparin infusion, Zosyn, steroids. 07/07: Covid positive patient seen in ICU. On vent with FiO2 100%, PEEP 10. C ontinue remdesivir, steroids, Zosyn. Continue to monitor 07/08: Patient seen in [facility] ICU. Still on vent with FiO2 100%, PEEP 10. Afebrile. No acute events overnight. Continue steroids, antibiotics, and remdesivir. Patient is 49-year-old male with past medical history of hypertension, who presents to the ED with complaints of worsening shortness of breath over the past 5 days. Associated sore throat, fatigue, and generalized weakness. Patient was reportedly tested for COVID-19 last Thursday, but he had negative test results. His symptoms acutely worsened yesterday. Upon arrival to the ER his oxygen saturation was 60% on room air. He was placed on BiPAP and admitted to the ICU. Patient was subsequently intubated due to worsening respiratory failure. Vitals/I&O Vitals/I&O: Vital Signs Date Time Temp Pulse Resp B/P (MAP) Pulse Ox O2 Delivery O2 Flow Rate FiO2 08/09/20 10:00 100.0 92 18 106/54 (71) 100 Ventilator 100.0 08/08/20 07:56 15.0 I & O 08/08/20 08/08/20 08/09/20 15:00 23:00 07:00 Intake Total 1683 ml 1661 ml Output Total 525 ml 650 ml 531 ml Balance -525 ml 1033 ml 1130 ml Physical Exam Physical Exam: General intubated/sedated HEENT normocephalic atraumatic , trach LUNGS: Coarse breath sounds anteriorly HEART: S1-S2 no murmurs ABDOMEN: Nondistended, soft bowel sounds present Fernandez in place SKIN: No generalized rash Right upper extremity PICC line removed PIV Clean Neuro intubated/sedated General: Other (sedated ) Labs Labs: Laboratory Tests Test 08/08/20 20:18 08/09/20 06:15 Activated Partial Thromboplast Time 85 SEC (24-38) Sodium Level 136 mmol/L (136-145) Potassium Level 3.6 mmol/L (3.5-5.1) Chloride Level 100 mmol/L (98-107) Carbon Dioxide Level 27 mmol/L (21-32) Anion Gap 9 (6-14) Blood Urea Nitrogen 4 mg/dL (8-26) Creatinine 0.4 mg/dL (0.7-1.3) Estimated GFR (Cockcroft-Gault) 227.7 BUN/Creatinine Ratio 10 (6-20) Glucose Level 70 mg/dL (70-99) Calcium Level 8.4 mg/dL (8.5-10.1) Total Bilirubin 0.4 mg/dL (0.2-1.0) Aspartate Amino Transf (AST/SGOT) 16 U/L (15-37) Alanine Aminotransferase (ALT/SGPT) 20 U/L (16-63) Alkaline Phosphatase 91 U/L (46-116) Total Protein 5.9 g/dL (6.4-8.2) Albumin 1.5 g/dL (3.4-5.0) Albumin/Globulin Ratio 0.3 (1.0-1.7) Assessment and Plan Assessmemt and Plan Problems Medical Problems: (1) Acute respiratory failure with hypoxia Status: Acute (2) PRIYA (acute kidney injury) Status: Acute (3) Elevated troponin I level Status: Acute (4) Pulmonary emboli Status: Acute (5) Suspected COVID-19 virus infection Status: Acute Comment Review of Relevant I have reviewed the following items trino (where applicable) has been applied. Medications: Current Medications Medications (Trade) Dose Ordered Sig/Natalee Route PRN Reason Start Time Stop Time Status Last Admin Dose Admin Cefazolin Sodium/ Dextrose 50 ml @ 100 mls/hr 1X ONCE IV 08/09/20 11:00 08/09/20 11:29 08/09/20 11:04 Ringer's Solution 1,000 ml @ 30 mls/hr Q24H IV 08/09/20 06:00 08/09/20 17:59 08/09/20 06:11 Justifications for Admission Other Justification DOROTHEA VIRK MD Aug 09, 2020 11:13
[2020-08-09] MEDS: fentaNYL HIGH DOSE PCA 55 ML IV PRN (14:20)
--- NOTE | 2020-08-09 14:37 | NUR ---
SS following up with discharge planning. SS reviewed pt chart and discussed with pt RN. Pt is currently on the vent at 40%. Pt has trach. Peg tube placement today. COVID19 negative now. Self pay. SS will continue to follow for discharge planning.
[2020-08-09] MEDS: VECURONIUM BOLUS 10 MG VIAL. IV PRN (15:05)
--- NOTE | 2020-08-09 15:22 | PDOC4 ---
PROCEDURE Procedure EGD/PEG Indication: prolonged ventilation/enteral access Meds: propofol per ventilator control. Findings: E--normal G--normal D--normal bulb. --20F g-tube placed uneventfully. Brief re-scope confirms good position. [place]. well. IMP: Successful PEG REC: Water/meds per tube today. Feed in AM if no problems. Re-start heparin Thursday. LIZZ EDWARD MD Aug 09, 2020 15:22
[2020-08-09 16:34] LABS: BASO % 0 % (0-3); EOS # 0.3 x10^3/uL (0.0-0.7); EOS % 3 % (0-3); HEMATOCRIT 32.9 % (39.0-53.0); HEMOGLOBIN 10.3 g/dL (13.0-17.5); LYMPH # 1.5 x10^3/uL (1.0-4.8); LYMPH % 18 % (24-48); MEAN CORPUSCULAR HEMOGLOBIN 31 pg (25-35); MEAN CORPUSCULAR HGB CONC 31 g/dL (31-37); MEAN CORPUSCULAR VOLUME 98 fL (79-100); MONO # 1.6 x10^3/uL (0.0-1.1); MONO % 20 % (0-9); NEUT # 4.9 x10^3/uL (1.8-7.7); NEUT % 58 % (31-73); PLATELET COUNT 454 x10^3/uL (140-400); RED BLOOD COUNT 3.35 x10^6/uL (4.30-5.70); RED CELL DISTRIBUTION WIDTH 15.7 % (11.5-14.5); WHITE BLOOD COUNT 8.3 x10^3/uL (4.0-11.0)
[2020-08-09 17:21] LABS: % BANDS 15 % (0-9); % BASOS 2 % (0-3); % EOS 3 % (0-5); % LYMPHS 17 % (24-48); % METAS 1 % (0-0); % MONOS 13 % (0-10); % SEGS 49 % (35-66); PLT ESTIMATE INCREASED (ADEQUATE)
[2020-08-09 17:22] LABS: ANISOCYTOSIS SLIGHT; BURR CELLS FEW; POIKILOCYTOSIS SLIGHT
[2020-08-09] MEDS: ACETAMINOPHEN 650 MG/20.3 ML SOLUTION. PEG PRN (20:13)
[2020-08-10] VITALS (23 sets, daily range): BP systolic 92–151; BP diastolic 52–86
[2020-08-10] MEDS: PROPOFOL 100 ML IV PRN ×3 (03:21→17:17)
[2020-08-10] MEDS: MIDAZOLAM 100mg/100ml NS BAG 100 ML IV PRN ×2 (03:22→23:19)
[2020-08-10] MEDS: fentaNYL HIGH DOSE PCA 55 ML IV PRN (04:19)
[2020-08-10 07:18] LABS: ALBUMIN 1.4 g/dL (3.4-5.0); ALBUMIN/GLOBULIN RATIO 0.3 (1.0-1.7); ALK PHOS 95 U/L (46-116); ALT (SGPT) 24 U/L (16-63); ANION GAP 11 (6-14); AST (SGOT) 22 U/L (15-37); BLOOD UREA NITROGEN 3 mg/dL (8-26); BUN/CREATININE RATIO 15 (6-20); CALCIUM 8.5 mg/dL (8.5-10.1); CARBON DIOXIDE 28 mmol/L (21-32); CHLORIDE 99 mmol/L (98-107); CREATININE 0.2 mg/dL (0.7-1.3); GFR > 300.0; GLUCOSE 75 mg/dL (70-99); POTASSIUM 3.6 mmol/L (3.5-5.1); SODIUM 138 mmol/L (136-145); TOTAL BILIRUBIN 0.4 mg/dL (0.2-1.0)
[2020-08-10] MEDS: PANTOPRAZOLE IV PUSH 40 MG VIAL. IVP SCH (07:28)
[2020-08-10] MEDS: ZINC SULFATE 220 MG CAPSULE. PO SCH (07:28)
[2020-08-10] MEDS: CHOLECALCIFEROL (VITAMIN D3) 5,000 UNIT CAPSULE PO SCH (07:28)
[2020-08-10] MEDS: IV NORMAL SALINE 1000ML BAG 1,000 ML IV SCH ×2 (07:29→17:17)
--- NOTE | 2020-08-10 07:42 | PDOC ---
Infectious Disease Note Subjective Subjective Patient with trach on vent ROS ROS s/p PEG no n/v/d/ Vital Sign Vital Signs Vital Signs Date Time Temp Pulse Resp B/P (MAP) Pulse Ox O2 Delivery O2 Flow Rate FiO2 08/10/20 06:00 98.6 85 20 121/73 (89) 100 Ventilator 98.6 Physical Exam PHYSICAL EXAM General intubated/sedated HEENT normocephalic atraumatic , trach LUNGS: Coarse breath sounds anteriorly HEART: S1-S2 no murmurs ABDOMEN: Nondistended, soft bowel sounds present Fernandez in place SKIN: No generalized rash Right upper extremity PICC line removed PIV Clean Neuro intubated/sedated Labs Lab Laboratory Tests Test 08/10/20 06:04 Sodium Level 138 mmol/L (136-145) Potassium Level 3.6 mmol/L (3.5-5.1) Chloride Level 99 mmol/L (98-107) Carbon Dioxide Level 28 mmol/L (21-32) Anion Gap 11 (6-14) Blood Urea Nitrogen 3 mg/dL (8-26) Creatinine 0.2 mg/dL (0.7-1.3) Estimated GFR (Cockcroft-Gault) > 300.0 BUN/Creatinine Ratio 15 (6-20) Glucose Level 75 mg/dL (70-99) Calcium Level 8.5 mg/dL (8.5-10.1) Total Bilirubin 0.4 mg/dL (0.2-1.0) Aspartate Amino Transf (AST/SGOT) 22 U/L (15-37) Alanine Aminotransferase (ALT/SGPT) 24 U/L (16-63) Alkaline Phosphatase 95 U/L (46-116) Total Protein 6.0 g/dL (6.4-8.2) Albumin 1.4 g/dL (3.4-5.0) Albumin/Globulin Ratio 0.3 (1.0-1.7) Micro sputum enterobacter sputum afb stain neg Objective Assessment Fever Leukocytosis improved COVID-19 positive. Status post remdesivir, steroids Acute hypoxic respiratory failure/ARDS /pneumonia Bilateral pulmonary emboli. Hypertension. Bacteremia 07/23 1/2 bottles staph hominis likely contaminant Repeat blood cultures staph capitis likely contaminant Enterobacter UTI and pneumonia Plan Plan of Care RUE PICC line DC'd Fernandez changed 12/ 3 Follow-up repeat BC Monitor labs and cultures D/W RN off antibiotics fever ? may have TB tracheal aspirate for afb,, culture pending MONALISA ROTHMAN MD Aug 10, 2020 07:42
[2020-08-10 07:50] LABS: BASE EXCESS ABG -1 mmol/L (-3-3); HCO3 ABG 25 mmol/L (21-28); PCO2 ABG 42 mmHg (35-46); PO2 ABG 78 mmHg (75-108); SAT O2 ABG 95 % (92-99)
[2020-08-10 08:49] LABS: FIO2 ABG 40%+6
--- NOTE | 2020-08-10 09:28 | PDOC ---
PULMONARY PROGRESS NOTES DATE: 08/10/20 TIME: 09:28 Subjective PT. remains on vent support , 40% FiO2 and a PEEP of 6 Status post tracheostomy on 08/06/2020 S/P peg tube on 08/09 low grade fever No other concerns from nursing overnight Vitals Vital Signs Date Time Temp Pulse Resp B/P (MAP) Pulse Ox O2 Delivery O2 Flow Rate FiO2 08/10/20 09:00 99.0 81 18 92/56 (68) 100 Ventilator 99.0 Comments Patient seen during pandemic visual exam performed Intubated/sedated trach midline sutures in place no accessory muscle use RRR No obvious rash or edema Labs Laboratory Tests Test 08/08/20 10:35 08/08/20 20:18 08/09/20 06:15 08/10/20 06:04 White Blood Count 8.4 x10^3/uL (4.0-11.0) 8.3 x10^3/uL (4.0-11.0) Red Blood Count 3.10 x10^6/uL (4.30-5.70) 3.35 x10^6/uL (4.30-5.70) Hemoglobin 10.0 g/dL (13.0-17.5) 10.3 g/dL (13.0-17.5) Hematocrit 29.3 % (39.0-53.0) 32.9 % (39.0-53.0) Mean Corpuscular Volume 94 fL (79-100) 98 fL (79-100) Mean Corpuscular Hemoglobin 32 pg (25-35) 31 pg (25-35) Mean Corpuscular Hemoglobin Concent 34 g/dL (31-37) 31 g/dL (31-37) Red Cell Distribution Width 15.8 % (11.5-14.5) 15.7 % (11.5-14.5) Platelet Count 482 x10^3/uL (140-400) 454 x10^3/uL (140-400) Neutrophils (%) (Auto) 65 % (31-73) 58 % (31-73) Lymphocytes (%) (Auto) 18 % (24-48) 18 % (24-48) Monocytes (%) (Auto) 13 % (0-9) 20 % (0-9) Eosinophils (%) (Auto) 3 % (0-3) 3 % (0-3) Basophils (%) (Auto) 1 % (0-3) 0 % (0-3) Neutrophils # (Auto) 5.4 x10^3/uL (1.8-7.7) 4.9 x10^3/uL (1.8-7.7) Lymphocytes # (Auto) 1.5 x10^3/uL (1.0-4.8) 1.5 x10^3/uL (1.0-4.8) Monocytes # (Auto) 1.1 x10^3/uL (0.0-1.1) 1.6 x10^3/uL (0.0-1.1) Eosinophils # (Auto) 0.3 x10^3/uL (0.0-0.7) 0.3 x10^3/uL (0.0-0.7) Basophils # (Auto) 0.1 x10^3/uL (0.0-0.2) 0.0 x10^3/uL (0.0-0.2) Heparin Anti-Xa Act, Unfractionated < 0.10 IU/mL (0.30-0.70) Sodium Level 136 mmol/L (136-145) 136 mmol/L (136-145) 138 mmol/L (136-145) Potassium Level 3.5 mmol/L (3.5-5.1) 3.6 mmol/L (3.5-5.1) 3.6 mmol/L (3.5-5.1) Chloride Level 99 mmol/L (98-107) 100 mmol/L (98-107) 99 mmol/L (98-107) Carbon Dioxide Level 29 mmol/L (21-32) 27 mmol/L (21-32) 28 mmol/L (21-32) Anion Gap 8 (6-14) 9 (6-14) 11 (6-14) Blood Urea Nitrogen 5 mg/dL (8-26) 4 mg/dL (8-26) 3 mg/dL (8-26) Creatinine 0.4 mg/dL (0.7-1.3) 0.4 mg/dL (0.7-1.3) 0.2 mg/dL (0.7-1.3) Estimated GFR (Cockcroft-Gault) 227.7 227.7 > 300.0 BUN/Creatinine Ratio 13 (6-20) 10 (6-20) 15 (6-20) Glucose Level 96 mg/dL (70-99) 70 mg/dL (70-99) 75 mg/dL (70-99) Calcium Level 8.5 mg/dL (8.5-10.1) 8.4 mg/dL (8.5-10.1) 8.5 mg/dL (8.5-10.1) Total Bilirubin 0.3 mg/dL (0.2-1.0) 0.4 mg/dL (0.2-1.0) 0.4 mg/dL (0.2-1.0) Aspartate Amino Transf (AST/SGOT) 18 U/L (15-37) 16 U/L (15-37) 22 U/L (15-37) Alanine Aminotransferase (ALT/SGPT) 26 U/L (16-63) 20 U/L (16-63) 24 U/L (16-63) Alkaline Phosphatase 104 U/L (46-116) 91 U/L (46-116) 95 U/L (46-116) Total Protein 6.5 g/dL (6.4-8.2) 5.9 g/dL (6.4-8.2) 6.0 g/dL (6.4-8.2) Albumin 1.6 g/dL (3.4-5.0) 1.5 g/dL (3.4-5.0) 1.4 g/dL (3.4-5.0) Albumin/Globulin Ratio 0.3 (1.0-1.7) 0.3 (1.0-1.7) 0.3 (1.0-1.7) Activated Partial Thromboplast Time 85 SEC (24-38) Segmented Neutrophils % 49 % (35-66) Band Neutrophils % 15 % (0-9) Lymphocytes % 17 % (24-48) Monocytes % 13 % (0-10) Eosinophils % 3 % (0-5) Basophils % 2 % (0-3) Metamyelocytes % 1 % (0-0) Platelet Estimate Increased (ADEQUATE) Poikilocytosis Slight Anisocytosis Slight Andrew Cells Few Test 08/10/20 08:00 O2 Saturation 95 % (92-99) Arterial Blood pH 7.38 (7.35-7.45) Arterial Blood pCO2 at Patient Temp 42 mmHg (35-46) Arterial Blood pO2 at Patient Temp 78 mmHg (75-108) Arterial Blood HCO3 25 mmol/L (21-28) Arterial Blood Base Excess -1 mmol/L (-3-3) FiO2 40%+6 Laboratory Tests Test 08/10/20 06:04 08/10/20 08:00 Sodium Level 138 mmol/L (136-145) Potassium Level 3.6 mmol/L (3.5-5.1) Chloride Level 99 mmol/L (98-107) Carbon Dioxide Level 28 mmol/L (21-32) Anion Gap 11 (6-14) Blood Urea Nitrogen 3 mg/dL (8-26) Creatinine 0.2 mg/dL (0.7-1.3) Estimated GFR (Cockcroft-Gault) > 300.0 BUN/Creatinine Ratio 15 (6-20) Glucose Level 75 mg/dL (70-99) Calcium Level 8.5 mg/dL (8.5-10.1) Total Bilirubin 0.4 mg/dL (0.2-1.0) Aspartate Amino Transf (AST/SGOT) 22 U/L (15-37) Alanine Aminotransferase (ALT/SGPT) 24 U/L (16-63) Alkaline Phosphatase 95 U/L (46-116) Total Protein 6.0 g/dL (6.4-8.2) Albumin 1.4 g/dL (3.4-5.0) Albumin/Globulin Ratio 0.3 (1.0-1.7) O2 Saturation 95 % (92-99) Arterial Blood pH 7.38 (7.35-7.45) Arterial Blood pCO2 at Patient Temp 42 mmHg (35-46) Arterial Blood pO2 at Patient Temp 78 mmHg (75-108) Arterial Blood HCO3 25 mmol/L (21-28) Arterial Blood Base Excess -1 mmol/L (-3-3) FiO2 40%+6 Comments CXR 08/06 IMPRESSION: 1. Mild improvement in bilateral airspace disease. 2. Bilateral pleural effusions, left greater than right. Impression . IMPRESSION: 1. Acute hypoxemic respiratory failure./ALI/ARDS due to COVID -19 2. Acute pulmonary embolism with cor pulmonale. 3. COVID-[address] chest revealing ground glass opacities. 5. Hypertension. 6. History of bronchitis. 7. Elevated troponin. 8. Acute kidney injury. 9. Leukocytosis. 10. Covid-19 positive 11. Possible loculated hydroPTX left base 12. fever ?tb Plan . Continue current ventilatory support, FiO2 40% and a PEEP of 6, D/C sedation vacation and pressure trial in am Status post tracheostomy 08/06 S/P Peg tube placement 08/09 restart heparin gtt on thursday reviewed chest x-ray and ABG, Follow cardiology recommendations Antibiotics per ID--AFB negative, repeat cultures negative, continues to have fevers, currently off ABX Has completed full course of remdesivir Continue tube feeding for nutritional support DVT/GI prophylaxis,Protonix-- heparin gtt on hold till 08/11 Discussed with RN and RT Pt. is FULL CODE critically ill Critical care time [id number] ALVIN RAMSEY MD Aug 10, 2020 09:28
--- NOTE | 2020-08-10 10:20 | NUR ---
Patient removed from isolation on 08/10.
--- NOTE | 2020-08-10 10:53 | PDOC ---
Date of Service: DATE: 08/10/20 TIME: 10:52 Objective: Objective: No PEG concerns per nurse. Tolerating tube feeds. Vital Signs: Vital Signs Date Time Temp Pulse Resp B/P (MAP) Pulse Ox O2 Delivery O2 Flow Rate FiO2 08/10/20 10:00 98.8 79 18 95/52 (66) 100 Ventilator 98.8 Labs: Laboratory Tests Test 08/10/20 06:04 08/10/20 08:00 Sodium Level 138 mmol/L Potassium Level 3.6 mmol/L Chloride Level 99 mmol/L Carbon Dioxide Level 28 mmol/L Anion Gap 11 Blood Urea Nitrogen 3 mg/dL Creatinine 0.2 mg/dL Estimated GFR (Cockcroft-Gault) > 300.0 BUN/Creatinine Ratio 15 Glucose Level 75 mg/dL Calcium Level 8.5 mg/dL Total Bilirubin 0.4 mg/dL Aspartate Amino Transf (AST/SGOT) 22 U/L Alanine Aminotransferase (ALT/SGPT) 24 U/L Alkaline Phosphatase 95 U/L Total Protein 6.0 g/dL Albumin 1.4 g/dL Albumin/Globulin Ratio 0.3 O2 Saturation 95 % Arterial Blood pH 7.38 Arterial Blood pCO2 at Patient Temp 42 mmHg Arterial Blood pO2 at Patient Temp 78 mmHg Arterial Blood HCO3 25 mmol/L Arterial Blood Base Excess -1 mmol/L FiO2 40%+6 BLOOD CULTURE Preliminary NO GROWTH AFTER 3 DAYS PE: GEN: NAD LUNGS: trach/vent HEART: RRR ABD: soft, PEG in place - clean/dry NEURO/PSYCH: sedated A/P: Resp failure s/p tracheostomy and PEG -- Tolerating PEG feeds. Justicifation of Admission Dx: Justifications for Admission: Justification of Admission Dx: Yes LYNETTE CELIS Aug 10, 2020 10:53
--- NOTE | 2020-08-10 10:54 | PDOC ---
[employer] PROGRESS NOTE Date of Service DOS: DATE: 08/10/20 TIME: 10:53 Chief Complaint Chief Complaint IMPRESSION Acute hypoxic respiratory failure requiring VENT SUPPORT STATUS post trach placement 08/06/2020 S/P Peg tube placement 08/09 Acute hypoxic respiratory failure/ARDS /pneumonia Bilateral perihilar and basilar opacities, progressed in the left base. 07-26 COVID-19 Subsegmental bilateral PE Leukocytosis NSTEMI AKA Lactic acidosis Hyponatremia, RESOLVED hgb 6.5 07-27, transfused 1 unit prbc's hyp[okalemia, on replacement Plan: Spontaneous breathing trial today attempt to wean to extubate Appreciate pulmonology recommendations Continue current ventilatory support, currently on 70% and PEEP of 6, avoid increasing PEEP 2/2 risk of barotrauma Follow chest x-ray and ABG, vent management as per pulmonology Heparin has been transitioned to Xarelto Solu-Medrol 40 mg every 12 hours Appreciate ID recommendationscontinue Remdesivir and empiric antibiotics IV fluids Discussed with RN and JAVIER. Antibiotics per ID-- off ABX, infectious disease following increasing leukocytosis has completed full course of remdesivir continue tube feeding for nutritional support History of Present Illness History of Present Illness 08/10/2020 no acute events overnight. Patient is on minimal vent settings. PEG tube placed yesterday. Will attempt to wean to extubate today.> 50% time spent in patient chart, labs, and imaging review and in discussion with RN and JAVIER 08/09/2020 No acute events overnight. T-max of 100.0 F. Patient is on minimal ventilatory settings.> 50% time spent in patient chart, labs, and imaging review and in discussion with RN and JAVIER 08/08/2020 Patient tolerating trach and ventilatory goldy support on 40% FiO2 and 5 of PEEP. Pending PEG tube placement tomorrow.> 50% time spent in patient chart, labs, and imaging review and in discussion with RN and JAVIER 08/07/2020 No acute events overnight. Fever T-max of 101.1. Trach was placed yesterday. On minimal vent settings.> 50% time spent in patient chart, labs, and imaging review and in discussion with RN and JAVIER 08/06/2020 No acute events overnight. Patient is afebrile. Currently on minimal vent settings. Pending trach today. Patient's chart, labs, images were reviewed and discussed with LIANE Villalta total of 35 minutes of critical care time was spent in reviewing chart, labs, and images. Discussed with RN and SW. 08/05/2020 Patient seen and evaluated. No acute events, febrile overnight. Mechanically ventilated with FiO2 40%, PEEP 6. Plan for trach Thursday. 08/04/2020 Patient seen in [facility] ICU. Still with low-grade fevers. Mechanically ventilated, FiO2 40%, PEEP 6. No acute change, plan for trach Thursday. 08/03/2020 Patient seen in [facility]- ICU. Still with low-grade fever. He remains on vent with FiO2 100%, PEEP 12. Plan for trach on Thursday, and PEG at some point after. 08/02/2020 Patient seen and evaluated in [facility] ICU. He is febrile this morning. Still intubated mechanically ventilated with FiO2 40 %, PEEP 6. Plans for tracheostomy today. 08/01/2020 Patient seen in [facility] ICU. Patient remains slightly febrile. Mechanically ventilated, FiO2 45%, PEEP 6. Tracheostomy unable to perform yesterday, general surgery to attempt again today. Discussed with RN. 07/31/2020 Patient still spiking fevers. Patient remains on vent, FiO2 45%, PEEP 6. Tracheostomy tentatively planned for today. 07/30/2020 Patient seen in [facility]- ICU. He is febrile on vent, FiO2 45%, PEEP 6. Will attempt to speak with family about decision on trach and PEG tube. Discussed with RN. t max 102 f fio2 50% 07/21/2020 Patient no acute events reported overnight. Patient continues to require a lot of support from vent. Discussed with RN 09/19/2019 Patient continues to be pretty much the same , fio2 is at 70%, heparin 07/19/2020 Patient hypotensive today, we will follow recommendations from critical children's zoo caretaker. Vent management as per [employer] retailer sales consultant, no other complaints. 07/18/2020 Patient with no acute events reported overnight, fio2 is now at 75% PEEP of 6, Vent management as per pulmonary [employer] retailer sales consultant slight increase in temperature noted over the lat 24 hours. Will continue to follow 07/17/2020 Patient with no acute events reported overnight, contineus to require an fio2 of 80%, continue with supportive measures. 07/16/2020 Patient with no acute events reported overnight, patient continues to require quite a bit of FiO2 at 80%. Vent management as per [employer] retailer sales consultant, will place a call to family members after rounding. Discussed with RN 07/15/2020 Patient seen and examined bedside in the ICU. FiO2 80% PEEP of 6.pH 7.56, PCO2 32, PO2 56, HCO3 28. Will adjust respiratory rate accordingly to correct pH.> 50% time spent in patient chart, labs, and imaging review and in discussion with RN and JAVIER 07/14/2020 Patient seen and examined bedside. FiO2 65% and PEEP of 6 on vent. ABG: pH 7.26, PCO2 77, PO2 114, HCO3 34. We will adjust respiratory rate or tidal volume to titrate pH.> 50% time spent in patient chart, labs, and imaging review and in discussion with RN and JAVIER 07/13/2020 No acute events overnight. Patient examined bedside sedated and intubated. FiO2 70% PEEP of 6. Improved ABGs.> 50% time spent in patient chart, labs, and imaging review and in discussion with RN and JAVIER 07/12/2020 Patient seen and examined in the ICU. Sedated and intubated. FiO2 65, PEEP of 8 with improved oxygenation. pH 7.4, PCO2 48, PO2 94, HCO3 30. +500 cc fluid balance.> 50% time spent in patient chart, labs, and imaging review and in discussion with RN and JAVIER 07/11/2020 Patient seen and examined bedside in the ICU. Patient continues to be intubated and sedated. FiO2 75%, PEEP of 10. pH 7.40, PCO2 44, PO2 is 135, HCO3 26. Can likely decrease FiO2 due to improved oxygenation. +173 cc in the past 24 hours 07/10/2020 Patient seen and examined bedside in ICU. Patient is intubated and sedated. FiO2 90%, PEEP of 10, respiratory rate of 30. ABG: pH is 7.41, PCO2 42, PO2 113, HCO3 26. 07/09/2020 Patient seen and examined in the ICU. Intubated and sedated. Vent settings FiO2 90%, PEEP of 10, respiratory rate of 30. 07/05: Patient seen in ICU, still intubated and sedated. COVID-19 pending. Patient remains on heparin infusion. Discussed with RN, will try to have central line placed per anesthesia. 07/06: Patient seen in ICU. Still FiO2 100% on vent and sedated. COVID-19 positive. Continue heparin infusion, Zosyn, steroids. 07/07: Covid positive patient seen in ICU. On vent with FiO2 100%, PEEP 10. Continue remdesivir, steroids, Zosyn. Continue to monitor 07/08: Patient seen in [facility] ICU. Still on vent with FiO2 100%, PEEP 10. Afebrile. No acute events overnight. Continue steroids, antibiotics, and remdesivir. Patient is 49-year-old male with past medical history of hypertension, who presents to the ED with complaints of worsening shortness of breath over the past 5 days. Associated sore throat, fatigue, and generalized weakness. Patient was reportedly tested for COVID-19 last Thursday, but he had negative test results. His symptoms acutely worsened yesterday. Upon arrival to the ER his oxygen saturation was 60% on room air. He was placed on BiPAP and admitted to the ICU. Patient was subsequently intubated due to worsening respiratory failure. Vitals/I&O Vitals/I&O: Vital Signs Date Time Temp Pulse Resp B/P (MAP) Pulse Ox O2 Delivery O2 Flow Rate FiO2 08/10/20 10:00 98.8 79 18 95/52 (66) 100 Ventilator 98.8 I & O 08/09/20 08/09/20 08/10/20 15:00 23:00 07:00 Intake Total 50 ml 1821 ml 2853 ml Output Total 310 ml 585 ml 250 ml Balance -260 ml 1236 ml 2603 ml Physical Exam Physical Exam: General intubated/sedated HEENT normocephalic atraumatic , trach LUNGS: Coarse breath sounds anteriorly HEART: S1-S2 no murmurs ABDOMEN: Nondistended, soft bowel sounds present Fernandez in place SKIN: No generalized rash Right upper extremity PICC line removed PIV Clean Neuro intubated/sedated General: Other (sedated ) Labs Labs: Laboratory Tests Test 08/10/20 06:04 08/10/20 08:00 Sodium Level 138 mmol/L (136-145) Potassium Level 3.6 mmol/L (3.5-5.1) Chloride Level 99 mmol/L (98-107) Carbon Dioxide Level 28 mmol/L (21-32) Anion Gap 11 (6-14) Blood Urea Nitrogen 3 mg/dL (8-26) Creatinine 0.2 mg/dL (0.7-1.3) Estimated GFR (Cockcroft-Gault) > 300.0 BUN/Creatinine Ratio 15 (6-20) Glucose Level 75 mg/dL (70-99) Calcium Level 8.5 mg/dL (8.5-10.1) Total Bilirubin 0.4 mg/dL (0.2-1.0) Aspartate Amino Transf (AST/SGOT) 22 U/L (15-37) Alanine Aminotransferase (ALT/SGPT) 24 U/L (16-63) Alkaline Phosphatase 95 U/L (46-116) Total Protein 6.0 g/dL (6.4-8.2) Albumin 1.4 g/dL (3.4-5.0) Albumin/Globulin Ratio 0.3 (1.0-1.7) O2 Saturation 95 % (92-99) Arterial Blood pH 7.38 (7.35-7.45) Arterial Blood pCO2 at Patient Temp 42 mmHg (35-46) Arterial Blood pO2 at Patient Temp 78 mmHg (75-108) Arterial Blood HCO3 25 mmol/L (21-28) Arterial Blood Base Excess -1 mmol/L (-3-3) FiO2 40%+6 Assessment and Plan Assessmemt and Plan Problems Medical Problems: (1) Acute respiratory failure with hypoxia Status: Acute (2) RPIYA (acute kidney injury) Status: Acute (3) Elevated troponin I level Status: Acute (4) Pulmonary emboli Status: Acute (5) Suspected COVID-19 virus infection Status: Acute Comment Review of Relevant I have reviewed the following items trino (where applicable) has been applied. Medications: Current Medications Medications (Trade) Dose Ordered Sig/Natalee Route PRN Reason Start Time Stop Time Status Last Admin Dose Admin Cefazolin Sodium/ Dextrose 50 ml @ 100 mls/hr 1X ONCE IV 08/09/20 11:00 08/09/20 11:29 DC 08/09/20 11:04 Justifications for Admission Other Justification DOROTHEA VIRK MD Aug 10, 2020 10:54
--- NOTE | 2020-08-10 14:20 | NUR ---
SS following up with discharge planning. SS reviewed pt chart and discussed with pt RN. Pt is currently on the vent at 40%. COVID19 negative now. Pt on sedation. Pt has trach and peg now. Self pay. Med assist unable to complete Medicaid paperwork due to having no legal DPOA available. Pt's spouse lives in [place]. SS will continue to follow for discharge planning.
[2020-08-10] MEDS: ACETAMINOPHEN 650 MG/20.3 ML SOLUTION. PEG PRN (15:25)
[2020-08-10 16:55] LABS: BASO # 0.1 x10^3/uL (0.0-0.2); BASO % 1 % (0-3); EOS # 0.2 x10^3/uL (0.0-0.7); EOS % 3 % (0-3); HEMATOCRIT 30.9 % (39.0-53.0); LYMPH % 14 % (24-48); MEAN CORPUSCULAR HEMOGLOBIN 31 pg (25-35); MEAN CORPUSCULAR HGB CONC 32 g/dL (31-37); MEAN CORPUSCULAR VOLUME 97 fL (79-100); MONO # 1.2 x10^3/uL (0.0-1.1); MONO % 16 % (0-9); NEUT % 66 % (31-73); PLATELET COUNT 476 x10^3/uL (140-400); RED BLOOD COUNT 3.19 x10^6/uL (4.30-5.70); RED CELL DISTRIBUTION WIDTH 15.8 % (11.5-14.5); WHITE BLOOD COUNT 7.5 x10^3/uL (4.0-11.0)
[2020-08-11] VITALS (24 sets, daily range): BP systolic 92–166; BP diastolic 49–93
[2020-08-11] MEDS: fentaNYL HIGH DOSE PCA 55 ML IV PRN (00:01)
[2020-08-11] MEDS: ACETAMINOPHEN 650 MG/20.3 ML SOLUTION. PEG PRN (00:04)
[2020-08-11] MEDS: PROPOFOL 100 ML IV PRN ×2 (01:30→06:42)
[2020-08-11] MEDS: IV NORMAL SALINE 1000ML BAG 1,000 ML IV SCH ×2 (04:31→16:30)
[2020-08-11 07:40] LABS: ALBUMIN 1.4 g/dL (3.4-5.0); ALBUMIN/GLOBULIN RATIO 0.3 (1.0-1.7); ALK PHOS 251 U/L (46-116); ALT (SGPT) 26 U/L (16-63); ANION GAP 8 (6-14); AST (SGOT) 16 U/L (15-37); BLOOD UREA NITROGEN 2 mg/dL (8-26); BUN/CREATININE RATIO 7 (6-20); CARBON DIOXIDE 30 mmol/L (21-32); CHLORIDE 100 mmol/L (98-107); CREATININE 0.3 mg/dL (0.7-1.3); GFR > 300.0; GLUCOSE 146 mg/dL (70-99); SODIUM 138 mmol/L (136-145); TOTAL BILIRUBIN 0.2 mg/dL (0.2-1.0); TOTAL PROTEIN 5.8 g/dL (6.4-8.2)
[2020-08-11] MEDS: PANTOPRAZOLE IV PUSH 40 MG VIAL. IVP SCH (09:08)
[2020-08-11] MEDS: CHOLECALCIFEROL (VITAMIN D3) 5,000 UNIT CAPSULE PO SCH (09:08)
[2020-08-11] MEDS: ZINC SULFATE 220 MG CAPSULE. PO SCH (09:08)
--- NOTE | 2020-08-11 10:01 | PDOC ---
[employer] PROGRESS NOTE Date of Service DOS: DATE: 08/11/20 TIME: 10:00 Chief Complaint Chief Complaint IMPRESSION Acute hypoxic respiratory failure requiring VENT SUPPORT STATUS post trach placement 08/06/2020 S/P Peg tube placement 08/09 Acute hypoxic respiratory failure/ARDS /pneumonia Bilateral perihilar and basilar opacities, progressed in the left base. 07-26 COVID-19 Subsegmental bilateral PE Leukocytosis NSTEMI AKA Lactic acidosis Hyponatremia, RESOLVED hgb 6.5 07-27, transfused 1 unit prbc's hyp[okalemia, on replacement Plan: Spontaneous breathing trial today attempt to wean to extubate Appreciate pulmonology recommendations Continue current ventilatory support, currently on 70% and PEEP of 6, avoid increasing PEEP 2/2 risk of barotrauma Follow chest x-ray and ABG, vent management as per pulmonology Heparin has been transitioned to Xarelto Solu-Medrol 40 mg every 12 hours Appreciate ID recommendationscontinue Remdesivir and empiric antibiotics IV fluids Discussed with RN and JAVIER. Antibiotics per ID-- off ABX, infectious disease following increasing leukocytosis has completed full course of remdesivir continue tube feeding for nutritional support History of Present Illness History of Present Illness 08/11/2020 No acute events overnight. Patient with T-max of 100.8 overnight. Currently on minimal vent settings. Trached and pegged. Social work following for Medicare approval.> 50% time spent in patient chart, labs, and imaging review and in discussion with RN and JAVIER 08/10/2020 no acute events overnight. Patient is on minimal vent settings. PEG tube placed yesterday. Will attempt to wean to extubate today.> 50% time spent in patient chart, labs, and imaging review and in discussion with RN and SW 08/09/2020 No acute events overnight. T-max of 100.0 F. Patient is on minimal ventilatory settings.> 50% time spent in patient chart, labs, and imaging review and in discussion with RN and JAVIER 08/08/2020 Patient tolerating trach and ventilatory goldy support on 40% FiO2 and 5 of PEEP. Pending PEG tube placement tomorrow.> 50% time spent in patient chart, labs, and imaging review and in discussion with RN and JAVIER 08/07/2020 No acute events overnight. Fever T-max of 101.1. Trach was placed yesterday. On minimal vent settings.> 50% time spent in patient chart, labs, and imaging review and in discussion with RN and SW 08/06/2020 No acute events overnight. Patient is afebrile. Currently on minimal vent settings. Pending trach today. Patient's chart, labs, images were reviewed and discussed with RN A total of 35 minutes of critical care time was spent in reviewing chart, labs, and images. Discussed with RN and SW. 08/05/2020 Patient seen and evaluated. No acute events, febrile overnight. Mechanically ventilated with FiO2 40%, PEEP 6. Plan for trach Thursday. 08/04/2020 Patient seen in [facility] ICU. Still with low-grade fevers. Mechanically ventilated, FiO2 40%, PEEP 6. No acute change, plan for trach Thursday. 08/03/2020 Patient seen in [facility] ICU. Still with low-grade fever. He remains on vent with FiO2 100%, PEEP 12. Plan for trach on Thursday, and PEG at some point after. 08/02/2020 Patient seen and evaluated in [facility] ICU. He is febrile this morning. Still intubated mechanically ventilated with FiO2 40 %, PEEP 6. Plans for tracheostomy today. 08/01/2020 Patient seen in [facility] ICU. Patient remains slightly febrile. Mechanically ventilated, FiO2 45%, PEEP 6. Tracheostomy unable to perform yesterday, general surgery to attempt again today. Discussed with RN. 07/31/2020 Patient still spiking fevers. Patient remains on vent, FiO2 45%, PEEP 6. Tracheostomy tentatively planned for today. 07/30/2020 Patient seen in [facility]- ICU. He is febrile on vent, FiO2 45%, PEEP 6. Will attempt to speak with family about decision on trach and PEG tube. Discussed with RN. t max 102 f fio2 50% 07/21/2020 Patient no acute events reported overnight. Patient continues to require a lot of support from vent. Discussed with RN 09/19/2019 Patient continues to be pretty much the same , fio2 is at 70%, heparin 07/19/2020 Patient hypotensive today, we will follow recommendations from critical career law clerk. Vent management as per wardrobe consultant, no other complaints. 07/18/2020 Patient with no acute events reported overnight, fio2 is now at 75% PEEP of 6, Vent management as per pulmonary wardrobe consultant slight increase in temperature noted over the lat 24 hours. Will continue to follow 07/17/2020 Patient with no acute events reported overnight, contineus to require an fio2 of 80%, continue with supportive measures. 07/16/2020 Patient with no acute events reported overnight, patient continues to require quite a bit of FiO2 at 80%. Vent management as per wardrobe consultant, will place a call to family members after rounding. Discussed with RN 07/15/2020 Patient seen and examined bedside in the ICU. FiO2 80% PEEP of 6.pH 7.56, PCO2 32, PO2 56, HCO3 28. Will adjust respiratory rate accordingly to correct pH.> 50% time spent in patient chart, labs, and imaging review and in discussion with RN and JAVIER 07/14/2020 Patient seen and examined bedside. FiO2 65% and PEEP of 6 on vent. ABG: pH 7.26, PCO2 77, PO2 114, HCO3 34. We will adjust respiratory rate or tidal volume to titrate pH.> 50% time spent in patient chart, labs, and imaging review and in discussion with RN and JAVIER 07/13/2020 No acute events overnight. Patient examined bedside sedated and intubated. FiO2 70% PEEP of 6. Improved ABGs.> 50% time spent in patient chart, labs, and imaging review and in discussion with RN and JAVIER 07/12/2020 Patient seen and examined in the ICU. Sedated and intubated. FiO2 65, PEEP of 8 with improved oxygenation. pH 7.4, PCO2 48, PO2 94, HCO3 30. +500 cc fluid balance.> 50% time spent in patient chart, labs, and imaging review and in discussion with RN and JAVIER 07/11/2020 Patient seen and examined bedside in the ICU. Patient continues to be intubated and sedated. FiO2 75%, PEEP of 10. pH 7.40, PCO2 44, PO2 is 135, HCO3 26. Can likely decrease FiO2 due to improved oxygenation. +173 cc in the past 24 hours 07/10/2020 Patient seen and examined bedside in ICU. Patient is intubated and sedated. FiO2 90%, PEEP of 10, respiratory rate of 30. ABG: pH is 7.41, PCO2 42, PO2 113, HCO3 26. 07/09/2020 Patient seen and examined in the ICU. Intubated and sedated. Vent settings FiO2 90%, PEEP of 10, respiratory rate of 30. 07/05: Patient seen in ICU, still intubated and sedated. COVID-19 pending. Erica lawson remains on heparin infusion. Discussed with RN, will try to have central line placed per anesthesia. 07/06: Patient seen in ICU. Still FiO2 100% on vent and sedated. COVID-19 positive. Continue heparin infusion, Zosyn, steroids. 07/07: Covid positive patient seen in ICU. On vent with FiO2 100%, PEEP 10. Continue remdesivir, steroids, Zosyn. Continue to monitor 07/08: Patient seen in [facility]. Still on vent with FiO2 100%, PEEP 10. Afebrile. No acute events overnight. Continue steroids, antibiotics, and remdesivir. Patient is 49-year-old male with past medical history of hypertension, who presents to the ED with complaints of worsening shortness of breath over the past 5 days. Associated sore throat, fatigue, and generalized weakness. Patient was reportedly tested for COVID-19 last Thursday, but he had negative test results. His symptoms acutely worsened yesterday. Upon arrival to the ER his oxygen saturation was 60% on room air. He was placed on BiPAP and admitted to the ICU. Patient was subsequently intubated due to worsening respiratory failure. Vitals/I&O Vitals/I&O: Vital Signs Date Time Temp Pulse Resp B/P (MAP) Pulse Ox O2 Delivery O2 Flow Rate FiO2 08/11/20 08:47 98 Ventilator 08/11/20 06:00 100.8 98 22 134/73 (93) 100.8 I & O 08/10/20 08/10/20 08/11/20 15:00 23:00 07:00 Intake Total 200 ml 1983 ml 2479 ml Output Total 265 ml 815 ml 700 ml Balance -65 ml 1168 ml 1779 ml Physical Exam Physical Exam: General intubated/sedated HEENT normocephalic atraumatic , trach LUNGS: Coarse breath sounds anteriorly HEART: S1-S2 no murmurs ABDOMEN: Nondistended, soft bowel sounds present Fernandez in place SKIN: No generalized rash Right upper extremity PICC line removed PIV Clean Neuro intubated/sedated General: Other (sedated ) Labs Labs: Laboratory Tests Test 08/11/20 06:10 Sodium Level 138 mmol/L (136-145) Potassium Level 3.0 mmol/L (3.5-5.1) Chloride Level 100 mmol/L (98-107) Carbon Dioxide Level 30 mmol/L (21-32) Anion Gap 8 (6-14) Blood Urea Nitrogen 2 mg/dL (8-26) Creatinine 0.3 mg/dL (0.7-1.3) Estimated GFR (Cockcroft-Gault) > 300.0 BUN/Creatinine Ratio 7 (6-20) Glucose Level 146 mg/dL (70-99) Calcium Level 8.0 mg/dL (8.5-10.1) Total Bilirubin 0.2 mg/dL (0.2-1.0) Aspartate Amino Transf (AST/SGOT) 16 U/L (15-37) Alanine Aminotransferase (ALT/SGPT) 26 U/L (16-63) Alkaline Phosphatase 251 U/L (46-116) Total Protein 5.8 g/dL (6.4-8.2) Albumin 1.4 g/dL (3.4-5.0) Albumin/Globulin Ratio 0.3 (1.0-1.7) Assessment and Plan Assessmemt and Plan Problems Medical Problems: (1) Acute respiratory failure with hypoxia Status: Acute (2) PRIYA (acute kidney injury) Status: Acute (3) Elevated troponin I level Status: Acute (4) Pulmonary emboli Status: Acute (5) Suspected COVID-19 virus infection Status: Acute Comment Review of Relevant I have reviewed the following items trino (where applicable) has been applied. Justifications for Admission Other Justification DOROTHEA VIRK MD Aug 11, 2020 10:01
[2020-08-11 10:07] LABS: BASO # 0.1 x10^3/uL (0.0-0.2); BASO % 1 % (0-3); EOS # 0.2 x10^3/uL (0.0-0.7); EOS % 2 % (0-3); HEMATOCRIT 27.9 % (39.0-53.0); HEMOGLOBIN 9.2 g/dL (13.0-17.5); LYMPH # 1.2 x10^3/uL (1.0-4.8); LYMPH % 12 % (24-48); MEAN CORPUSCULAR HEMOGLOBIN 31 pg (25-35); MEAN CORPUSCULAR HGB CONC 33 g/dL (31-37); MEAN CORPUSCULAR VOLUME 94 fL (79-100); MONO # 1.6 x10^3/uL (0.0-1.1); MONO % 16 % (0-9); NEUT # 6.7 x10^3/uL (1.8-7.7); NEUT % 69 % (31-73); PLATELET COUNT 468 x10^3/uL (140-400); RED BLOOD COUNT 2.97 x10^6/uL (4.30-5.70); RED CELL DISTRIBUTION WIDTH 15.6 % (11.5-14.5); WHITE BLOOD COUNT 9.7 x10^3/uL (4.0-11.0)
[2020-08-11] MEDS: DEXMEDETOMIDINE 400 MCG in IV NORMAL SALINE 100ML 96 ML IV PRN ×5 (10:16→22:44)
--- NOTE | 2020-08-11 12:02 | PDOC ---
PULMONARY PROGRESS NOTES DATE: 08/11/20 TIME: 11:59 Subjective PT. remains on vent support , 40% FiO2 and a PEEP of 6 Status post tracheostomy on 08/06/2020 and S/P peg tube on 08/09 Continues to have fevers Off sedation this morning No other concerns from nursing overnight Vitals Vital Signs Date Time Temp Pulse Resp B/P (MAP) Pulse Ox O2 Delivery O2 Flow Rate FiO2 08/11/20 11:42 98 Ventilator 08/11/20 11:00 102.4 94 22 124/71 (88) 102.4 Comments General: Alert HEENT: Other (trach midline) Lungs: Clear Cardiovascular: S1, S2 Abdomen: Soft Skin: Warm, Dry Labs Laboratory Tests Test 08/10/20 06:04 08/10/20 08:00 08/11/20 06:10 White Blood Count 7.5 x10^3/uL (4.0-11.0) 9.7 x10^3/uL (4.0-11.0) Red Blood Count 3.19 x10^6/uL (4.30-5.70) 2.97 x10^6/uL (4.30-5.70) Hemoglobin 10.0 g/dL (13.0-17.5) 9.2 g/dL (13.0-17.5) Hematocrit 30.9 % (39.0-53.0) 27.9 % (39.0-53.0) Mean Corpuscular Volume 97 fL (79-100) 94 fL (79-100) Mean Corpuscular Hemoglobin 31 pg (25-35) 31 pg (25-35) Mean Corpuscular Hemoglobin Concent 32 g/dL (31-37) 33 g/dL (31-37) Red Cell Distribution Width 15.8 % (11.5-14.5) 15.6 % (11.5-14.5) Platelet Count 476 x10^3/uL (140-400) 468 x10^3/uL (140-400) Neutrophils (%) (Auto) 66 % (31-73) 69 % (31-73) Lymphocytes (%) (Auto) 14 % (24-48) 12 % (24-48) Monocytes (%) (Auto) 16 % (0-9) 16 % (0-9) Eosinophils (%) (Auto) 3 % (0-3) 2 % (0-3) Basophils (%) (Auto) 1 % (0-3) 1 % (0-3) Neutrophils # (Auto) 5.0 x10^3/uL (1.8-7.7) 6.7 x10^3/uL (1.8-7.7) Lymphocytes # (Auto) 1.0 x10^3/uL (1.0-4.8) 1.2 x10^3/uL (1.0-4.8) Monocytes # (Auto) 1.2 x10^3/uL (0.0-1.1) 1.6 x10^3/uL (0.0-1.1) Eosinophils # (Auto) 0.2 x10^3/uL (0.0-0.7) 0.2 x10^3/uL (0.0-0.7) Basophils # (Auto) 0.1 x10^3/uL (0.0-0.2) 0.1 x10^3/uL (0.0-0.2) Sodium Level 138 mmol/L (136-145) 138 mmol/L (136-145) Potassium Level 3.6 mmol/L (3.5-5.1) 3.0 mmol/L (3.5-5.1) Chloride Level 99 mmol/L (98-107) 100 mmol/L (98-107) Carbon Dioxide Level 28 mmol/L (21-32) 30 mmol/L (21-32) Anion Gap 11 (6-14) 8 (6-14) Blood Urea Nitrogen 3 mg/dL (8-26) 2 mg/dL (8-26) Creatinine 0.2 mg/dL (0.7-1.3) 0.3 mg/dL (0.7-1.3) Estimated GFR (Cockcroft-Gault) > 300.0 > 300.0 BUN/Creatinine Ratio 15 (6-20) 7 (6-20) Glucose Level 75 mg/dL (70-99) 146 mg/dL (70-99) Calcium Level 8.5 mg/dL (8.5-10.1) 8.0 mg/dL (8.5-10.1) Total Bilirubin 0.4 mg/dL (0.2-1.0) 0.2 mg/dL (0.2-1.0) Aspartate Amino Transf (AST/SGOT) 22 U/L (15-37) 16 U/L (15-37) Alanine Aminotransferase (ALT/SGPT) 24 U/L (16-63) 26 U/L (16-63) Alkaline Phosphatase 95 U/L (46-116) 251 U/L (46-116) Total Protein 6.0 g/dL (6.4-8.2) 5.8 g/dL (6.4-8.2) Albumin 1.4 g/dL (3.4-5.0) 1.4 g/dL (3.4-5.0) Albumin/Globulin Ratio 0.3 (1.0-1.7) 0.3 (1.0-1.7) O2 Saturation 95 % (92-99) Arterial Blood pH 7.38 (7.35-7.45) Arterial Blood pCO2 at Patient Temp 42 mmHg (35-46) Arterial Blood pO2 at Patient Temp 78 mmHg (75-108) Arterial Blood HCO3 25 mmol/L (21-28) Arterial Blood Base Excess -1 mmol/L (-3-3) FiO2 40%+6 Laboratory Tests Test 08/11/20 06:10 White Blood Count 9.7 x10^3/uL (4.0-11.0) Red Blood Count 2.97 x10^6/uL (4.30-5.70) Hemoglobin 9.2 g/dL (13.0-17.5) Hematocrit 27.9 % (39.0-53.0) Mean Corpuscular Volume 94 fL (79-100) Mean Corpuscular Hemoglobin 31 pg (25-35) Mean Corpuscular Hemoglobin Concent 33 g/dL (31-37) Red Cell Distribution Width 15.6 % (11.5-14.5) Platelet Count 468 x10^3/uL (140-400) Neutrophils (%) (Auto) 69 % (31-73) Lymphocytes (%) (Auto) 12 % (24-48) Monocytes (%) (Auto) 16 % (0-9) Eosinophils (%) (Auto) 2 % (0-3) Basophils (%) (Auto) 1 % (0-3) Neutrophils # (Auto) 6.7 x10^3/uL (1.8-7.7) Lymphocytes # (Auto) 1.2 x10^3/uL (1.0-4.8) Monocytes # (Auto) 1.6 x10^3/uL (0.0-1.1) Eosinophils # (Auto) 0.2 x10^3/uL (0.0-0.7) Basophils # (Auto) 0.1 x10^3/uL (0.0-0.2) Sodium Level 138 mmol/L (136-145) Potassium Level 3.0 mmol/L (3.5-5.1) Chloride Level 100 mmol/L (98-107) Carbon Dioxide Level 30 mmol/L (21-32) Anion Gap 8 (6-14) Blood Urea Nitrogen 2 mg/dL (8-26) Creatinine 0.3 mg/dL (0.7-1.3) Estimated GFR (Cockcroft-Gault) > 300.0 BUN/Creatinine Ratio 7 (6-20) Glucose Level 146 mg/dL (70-99) Calcium Level 8.0 mg/dL (8.5-10.1) Total Bilirubin 0.2 mg/dL (0.2-1.0) Aspartate Amino Transf (AST/SGOT) 16 U/L (15-37) Alanine Aminotransferase (ALT/SGPT) 26 U/L (16-63) Alkaline Phosphatase 251 U/L (46-116) Total Protein 5.8 g/dL (6.4-8.2) Albumin 1.4 g/dL (3.4-5.0) Albumin/Globulin Ratio 0.3 (1.0-1.7) Comments CXR 08/06 IMPRESSION: 1. Mild improvement in bilateral airspace disease. 2. Bilateral pleural effusions, left greater than right. Impression . IMPRESSION: 1. Acute hypoxemic respiratory failure./ALI/ARDS due to COVID -19 2. Acute pulmonary embolism with cor pulmonale. 3. COVID-[address] chest revealing ground glass opacities. 5. Hypertension. 6. History of bronchitis. 7. Elevated troponin. 8. Acute kidney injury. 9. Leukocytosis. 10. Covid-19 positive 11. Possible loculated hydroPTX left base 12. fever ?tb Plan . Continue current ventilatory support, FiO2 40% and a PEEP of 6, Currently off sedation, not awake enough for weaning trial Precedex if needed Status post tracheostomy 08/06 S/P Peg tube placement 08/09 restart heparin gtt today, monitor hemoglobin reviewed chest x-ray and ABG, Follow cardiology recommendations Antibiotics per ID--AFB negative, repeat cultures negative, continues to have fevers, currently off ABX Has completed full course of remdesivir Continue tube feeding for nutritional support DVT/GI prophylaxis,Protonix-- heparin gtt o Discussed with RN and RT Pt. is FULL CODE critically ill Critical care time 0900-0930AM ALVIN RAMSEY MD Aug 11, 2020 12:02
[2020-08-11] MEDS: HEPARIN 25,000UTS/250ML PREMIX 250 ML IV PRN ×2 (12:04→15:05)
[2020-08-11] MEDS ORDERED: POTASSIUM CHLORIDE 20MEQ 100 ML IV SCH (12:30)
[2020-08-11] MEDS: POTASSIUM BICARB 20 MEQ EFFERVESCENT TABLET. PO SCH ×2 (13:08→14:58)
[2020-08-11] MEDS ORDERED: VANCOMYCIN 1.75 GM in IV NORMAL SALINE 500ML BAG 500 ML IV ONE (14:00)
[2020-08-11] MEDS: VANCOMYCIN PER PHARMACY MC PRN (16:28)
--- NOTE | 2020-08-11 16:28 | NUR ---
Pharmacy Vancomycin Dosing Note S:Consulted to monitor and dose vancomycin started 07/25/20. O:ABHISHEK SKINNER is a 49 year old M with bacteremia. Height: 5 feet, 6 inches Weight: 81.9 kg Dosing Weight: Actual Other Antibiotics: NONE LABS: Last BUN: 8 Last Creatinine: 0.2 Creatinine Clearance: >100 mL/min Last WBC: 9.7 Last Procalcitonin: Tmax (past 24 hours): 102.4 Microbiology: BLOOD CX (08/06): [facility] I/O: [id number] A: Patient requires resumption of vancomycin for indication of bacteremia. His CrCl remains > 100 ml/min. Based on vancomycin dosing and levels from this admission, initiate the following: P: 1. Initiate Vancomycin 1750 mg IV x 1 dose, then 1500 mg IV q8h 2. Follow up Trough level on 08/12/20 at 1430 3. Pharmacy will continue to monitor, follow and adjust therapy as needed. AKIRA OLIVARES [facility], 08/11/20 [id number]
[2020-08-11] MEDS: HEPARIN for IV BOLUS 10,000 UNIT/10 ML VIAL. IV PRN (22:07)
[2020-08-11] MEDS: VANCOMYCIN 1.5 GM in IV NORMAL SALINE 500ML BAG 500 ML IV SCH (22:44)
[2020-08-12] VITALS (24 sets, daily range): BP systolic 131–178; BP diastolic 69–103
[2020-08-12] MEDS: DEXMEDETOMIDINE 400 MCG in IV NORMAL SALINE 100ML 96 ML IV PRN ×4 (01:32→22:34)
[2020-08-12] MEDS: IV NORMAL SALINE 1000ML BAG 1,000 ML IV SCH (02:00)
[2020-08-12 04:10] LABS: BASO # 0.1 x10^3/uL (0.0-0.2); BASO % 1 % (0-3); EOS % 0 % (0-3); HEMATOCRIT 27.1 % (39.0-53.0); HEMOGLOBIN 9.3 g/dL (13.0-17.5); LYMPH # 1.3 x10^3/uL (1.0-4.8); LYMPH % 12 % (24-48); MEAN CORPUSCULAR HEMOGLOBIN 32 pg (25-35); MEAN CORPUSCULAR HGB CONC 34 g/dL (31-37); MEAN CORPUSCULAR VOLUME 93 fL (79-100); MONO # 1.5 x10^3/uL (0.0-1.1); MONO % 13 % (0-9); NEUT % 74 % (31-73); PLATELET COUNT 428 x10^3/uL (140-400); RED BLOOD COUNT 2.92 x10^6/uL (4.30-5.70)
[2020-08-12 04:22] LABS: ALBUMIN 1.5 g/dL (3.4-5.0); ALBUMIN/GLOBULIN RATIO 0.3 (1.0-1.7); CALCIUM 8.1 mg/dL (8.5-10.1); CREATININE 0.5 mg/dL (0.7-1.3); TOTAL BILIRUBIN 0.3 mg/dL (0.2-1.0)
[2020-08-12 04:24] LABS: POTASSIUM 2.9 mmol/L (3.5-5.1)
[2020-08-12] MEDS: POTASSIUM CHLORIDE 10MEQ 100 ML IV SCH ×10 (04:36→23:35)
[2020-08-12] MEDS: HEPARIN for IV BOLUS 10,000 UNIT/10 ML VIAL. IV PRN ×3 (05:34→21:53)
[2020-08-12] MEDS: HEPARIN 25,000UTS/250ML PREMIX 250 ML IV PRN ×2 (07:21→21:55)
[2020-08-12] MEDS: VANCOMYCIN 1.5 GM in IV NORMAL SALINE 500ML BAG 500 ML IV SCH ×2 (07:23→14:49)
[2020-08-12] MEDS: PANTOPRAZOLE IV PUSH 40 MG VIAL. IVP SCH (07:35)
--- NOTE | 2020-08-12 07:40 | RAD ---
EXAM: XR CHEST 1V 08/12/2020 7:00 AM CLINICAL INDICATION: Respiratory failure COMPARISON: Chest radiograph 08/06/2020 TECHNIQUE: AP upright view of the chest FINDINGS: There is a new tracheostomy tube with the tip between the clavicular heads. Nasogastric tu be has been removed. The heart is mildly enlarged. Diffuse left greater than right pulmonary opacitie s and a left pleural effusion are unchanged. No pneumothorax. IMPRESSION: 1. Tracheostomy tube placement. 2. Stable bilateral pulmonary opacities and left pleural effusion. 3. Nasogastric tube removed. Electronically signed by: Sharonda Adams MD (08/12/2020 7:37 AM) [id number]
[2020-08-12 08:56] LABS: BASE EXCESS ABG 5 mmol/L (-3-3); HCO3 ABG 28 mmol/L (21-28); PCO2 ABG 36 mmHg (35-46); PO2 ABG 74 mmHg (75-108); SAT O2 ABG 95 % (92-99)
[2020-08-12 09:03] LABS: FIO2 ABG 40%
[2020-08-12] MEDS: ZINC SULFATE 220 MG CAPSULE. PO SCH (09:20)
[2020-08-12] MEDS: CHOLECALCIFEROL (VITAMIN D3) 5,000 UNIT CAPSULE PO SCH (09:20)
--- NOTE | 2020-08-12 09:38 | PDOC ---
Infectious Disease Note Subjective Subjective Patient with trach on vent ROS ROS pt is awake on vent Vital Sign Vital Signs Vital Signs Date Time Temp Pulse Resp B/P (MAP) Pulse Ox O2 Delivery O2 Flow Rate FiO2 08/12/20 08:33 98 Ventilator 08/12/20 06:00 99.7 74 23 138/80 (99) 99.7 Physical Exam PHYSICAL EXAM General intubated/sedated HEENT normocephalic atraumatic , trach LUNGS: Coarse breath sounds anteriorly HEART: S1-S2 no murmurs ABDOMEN: Nondistended, soft bowel sounds present Fernandez in place SKIN: No generalized rash Right upper extremity PICC line removed PIV Clean Neuro intubated/sedated Labs Lab Laboratory Tests Test 08/11/20 13:30 08/11/20 21:05 08/12/20 04:00 08/12/20 08:50 Heparin Anti-Xa Act, Unfractionated < 0.10 IU/mL (0.30-0.70) < 0.10 IU/mL (0.30-0.70) 0.14 IU/mL (0.30-0.70) White Blood Count 11.0 x10^3/uL (4.0-11.0) Red Blood Count 2.92 x10^6/uL (4.30-5.70) Hemoglobin 9.3 g/dL (13.0-17.5) Hematocrit 27.1 % (39.0-53.0) Mean Corpuscular Volume 93 fL (79-100) Mean Corpuscular Hemoglobin 32 pg (25-35) Mean Corpuscular Hemoglobin Concent 34 g/dL (31-37) Red Cell Distribution Width 16.0 % (11.5-14.5) Platelet Count 428 x10^3/uL (140-400) Neutrophils (%) (Auto) 74 % (31-73) Lymphocytes (%) (Auto) 12 % (24-48) Monocytes (%) (Auto) 13 % (0-9) Eosinophils (%) (Auto) 0 % (0-3) Basophils (%) (Auto) 1 % (0-3) Neutrophils # (Auto) 8.0 x10^3/uL (1.8-7.7) Lymphocytes # (Auto) 1.3 x10^3/uL (1.0-4.8) Monocytes # (Auto) 1.5 x10^3/uL (0.0-1.1) Eosinophils # (Auto) 0.0 x10^3/uL (0.0-0.7) Basophils # (Auto) 0.1 x10^3/uL (0.0-0.2) Sodium Level 139 mmol/L (136-145) Potassium Level 2.9 mmol/L (3.5-5.1) Chloride Level 102 mmol/L (98-107) Carbon Dioxide Level 31 mmol/L (21-32) Anion Gap 6 (6-14) Blood Urea Nitrogen 3 mg/dL (8-26) Creatinine 0.5 mg/dL (0.7-1.3) Estimated GFR (Cockcroft-Gault) 176.0 BUN/Creatinine Ratio 6 (6-20) Glucose Level 201 mg/dL (70-99) Calcium Level 8.1 mg/dL (8.5-10.1) Total Bilirubin 0.3 mg/dL (0.2-1.0) Aspartate Amino Transf (AST/SGOT) 15 U/L (15-37) Alanine Aminotransferase (ALT/SGPT) 21 U/L (16-63) Alkaline Phosphatase 186 U/L (46-116) Total Protein 6.0 g/dL (6.4-8.2) Albumin 1.5 g/dL (3.4-5.0) Albumin/Globulin Ratio 0.3 (1.0-1.7) O2 Saturation 95 % (92-99) Arterial Blood pH 7.51 (7.35-7.45) Arterial Blood pCO2 at Patient Temp 36 mmHg (35-46) Arterial Blood pO2 at Patient Temp 74 mmHg (75-108) Arterial Blood HCO3 28 mmol/L (21-28) Arterial Blood Base Excess 5 mmol/L (-3-3) FiO2 40% Micro sputum enterobacter sputum afb stain neg Objective Assessment Fever Leukocytosis improved COVID-19 positive. Status post remdesivir, steroids Acute hypoxic respiratory failure/ARDS /pneumonia Bilateral pulmonary emboli. Hypertension. Bacteremia 07/23 1/2 bottles staph hominis likely contaminant Repeat blood cultures staph capitis likely contaminant Enterobacter UTI and pneumonia Plan Plan of Care RUE PICC line DC'd Jim changed 07/26 Follow-up repeat BC Monitor labs and cultures D/W RN off antibiotics fever ? may have TB tracheal aspirate for afb,, culture pending BC + 1/2 G + cocci on vanc MONALISA ROTHMAN MD Aug 12, 2020 09:38
--- NOTE | 2020-08-12 12:05 | PDOC ---
[employer] PROGRESS NOTE Date of Service DOS: DATE: 08/12/20 TIME: 12:05 Chief Complaint Chief Complaint IMPRESSION Acute hypoxic respiratory failure requiring VENT SUPPORT STATUS post trach placement 08/06/2020 S/P Peg tube placement 08/09 Acute hypoxic respiratory failure/ARDS /pneumonia Bilateral perihilar and basilar opacities, progressed in the left base. 07-26 COVID-19 Subsegmental bilateral PE Leukocytosis NSTEMI AKA Lactic acidosis Hyponatremia, RESOLVED hgb 6.5 07-27, transfused 1 unit prbc's hyp[okalemia, on replacement Plan: Spontaneous breathing trial today attempt to wean to extubate Appreciate pulmonology recommendations Continue current ventilatory support, currently on 70% and PEEP of 6, avoid increasing PEEP 2/2 risk of barotrauma Follow chest x-ray and ABG, vent management as per pulmonology Heparin has been transitioned to Xarelto Solu-Medrol 40 mg every 12 hours Appreciate ID recommendationscontinue Remdesivir and empiric antibiotics IV fluids Discussed with RN and JAVIER. Antibiotics per ID-- off ABX, infectious disease following increasing leukocytosis has completed full course of remdesivir continue tube feeding for nutritional support History of Present Illness History of Present Illness 08/12/2020 No acute events overnight. Patient has T-max of 99.7. Currently on minimal vent settings.> 50% time spent in patient chart, labs, and imaging review and in discussion with RN and JAVIER 08/11/2020 No acute events overnight. Patient with T-max of 100.8 overnight. Currently on minimal vent settings. Trached and pegged. Social work following for Medicare approval.> 50% time spent in patient chart, labs, and imaging review and in discussion with RN and JAVIER 08/10/2020 no acute events overnight. Patient is on minimal vent settings. PEG tube pl aced yesterday. Will attempt to wean to extubate today.> 50% time spent in patient chart, labs, and imaging review and in discussion with RN and JAVIER 08/09/2020 No acute events overnight. T-max of 100.0 F. Patient is on minimal ventilatory settings.> 50% time spent in patient chart, labs, and imaging review and in discussion with RN and JAVIER 08/08/2020 Patient tolerating trach and ventilatory goldy support on 40% FiO2 and 5 of PEEP. Pending PEG tube placement tomorrow.> 50% time spent in patient chart, labs, and imaging review and in discussion with RN and SW 08/07/2020 No acute events overnight. Fever T-max of 101.1. Trach was placed yesterday. On minimal vent settings.> 50% time spent in patient chart, labs, and imaging review and in discussion with RN and JAVIER 08/06/2020 No acute events overnight. Patient is afebrile. Currently on minimal vent settings. Pending trach today. Patient's chart, labs, images were reviewed and discussed with RN A total of 35 minutes of critical care time was spent in reviewing chart, labs, and images. Discussed with RN and SW. 08/05/2020 Patient seen and evaluated. No acute events, febrile overnight. Mechanically ventilated with FiO2 40%, PEEP 6. Plan for trach Thursday. 08/04/2020 Patient seen in [facility] ICU. Still with low-grade fevers. Mechanically ventilated, FiO2 40%, PEEP 6. No acute change, plan for trach Thursday. 08/03/2020 Patient seen in [facility]- ICU. Still with low-grade fever. He remains on vent with FiO2 100%, PEEP 12. Plan for trach on Thursday, and PEG at some point after. 08/02/2020 Patient seen and evaluated in [facility] ICU. He is febrile this morning. Still intubated mechanically ventilated with FiO2 40 %, PEEP 6. Plans for tracheostomy today. 08/01/2020 Patient seen in [facility] ICU. Patient remains slightly febrile. Mechanically ventilated, FiO2 45%, PEEP 6. Tracheostomy unable to perform yesterday, general surgery to attempt again today. Discussed with RN. 07/31/2020 Patient still spiking fevers. Patient remains on vent, FiO2 45%, PEEP 6. Trach eostomy tentatively planned for today. 07/30/2020 Patient seen in [facility]- ICU. He is febrile on vent, FiO2 45%, PEEP 6. Will attempt to speak with family about decision on trach and PEG tube. Discussed with RN. t max 102 f fio2 50% 07/21/2020 Patient no acute events reported overnight. Patient continues to require a lot of support from vent. Discussed with RN 09/19/2019 Patient continues to be pretty much the same , fio2 is at 70%, heparin 07/19/2020 Patient hypotensive today, we will follow recommendations from critical managed care coordinator. Vent management as per bank consultant, no other complaints. 07/18/2020 Patient with no acute events reported overnight, fio2 is now at 75% PEEP of 6, Vent management as per pulmonary bank consultant slight increase in temperature noted over the lat 24 hours. Will continue to follow 07/17/2020 Patient with no acute events reported overnight, contineus to require an fio2 of 80%, continue with supportive measures. 07/16/2020 Patient with no acute events reported overnight, patient continues to require quite a bit of FiO2 at 80%. Vent management as per bank consultant, will place a call to family members after rounding. Discussed with RN 07/15/2020 Patient seen and examined bedside in the ICU. FiO2 80% PEEP of 6.pH 7.56, PCO2 32, PO2 56, HCO3 28. Will adjust respiratory rate accordingly to correct pH.> 50% time spent in patient chart, labs, and imaging review and in discussion with RN and JAVIER 07/14/2020 Patient seen and examined bedside. FiO2 65% and PEEP of 6 on vent. ABG: pH 7.26, PCO2 77, PO2 114, HCO3 34. We will adjust respiratory rate or tidal volume to titrate pH.> 50% time spent in patient chart, labs, and imaging review and in discussion with RN and JAVIER 07/13/2020 No acute events overnight. Patient examined bedside sedated and intubated. FiO2 70% PEEP of 6. Improved ABGs.> 50% time spent in patient chart, labs, and imaging review and in discussion with RN and JAVIER 07/12/2020 Patient seen and examined in the ICU. Sedated and intubated. FiO2 65, PEEP of 8 with improved oxygenation. pH 7.4, PCO2 48, PO2 94, HCO3 30. +500 cc fluid balance.> 50% time spent in patient chart, labs, and imaging review and in discussion with RN and JAVIER 07/11/2020 Patient seen and examined bedside in the ICU. Patient continues to be intubated and sedated. FiO2 75%, PEEP of 10. pH 7.40, PCO2 44, PO2 is 135, HCO3 26. Can likely decrease FiO2 due to improved oxygenation. +173 cc in the past 24 hours 07/10/2020 Patient seen and examined bedside in ICU. Patient is intubated and sedated. FiO2 90%, PEEP of 10, respiratory rate of 30. ABG: pH is 7.41, PCO2 42, PO2 113, HCO3 26. 07/09/2020 Patient seen and examined in the ICU. Intubated and sedated. Vent settings FiO2 90%, PEEP of 10, respiratory rate of 30. 07/05: Patient seen in ICU, still intubated and sedated. COVID-19 pending. Patient remains on heparin infusion. Discussed with RN, will try to have central line placed per anesthesia. 07/06: Patient seen in ICU. Still FiO2 100% on vent and sedated. COVID-19 positive. Continue heparin infusion, Zosyn, steroids. 07/07: Covid positive patient seen in ICU. On vent with FiO2 100%, PEEP 10. Continue remdesivir, steroids, Zosyn. Continue to monitor 07/08: Patient seen in [facility]id ICU. Still on vent with FiO2 100%, PEEP 10. Afebrile. No acute events overnight. Continue steroids, antibiotics, and remdesivir. Patient is 49-year-old male with past medical history of hypertension, who presents to the ED with complaints of worsening shortness of breath over the past 5 days. Associated sore throat, fatigue, and generalized weakness. Patient was reportedly tested for COVID-19 last Thursday, but he had negative test results. His symptoms acutely worsened yesterday. Upon arrival to the ER his oxygen saturation was 60% on room air. He was placed on BiPAP and admitted to the ICU. Patient was subsequently intubated due to worsening respiratory failure. Vitals/I&O Vitals/I&O: Vital Signs Date Time Temp Pulse Resp B/P (MAP) Pulse Ox O2 Delivery O2 Flow Rate FiO2 08/12/20 11:46 98 08/12/20 11:39 Ventilator 08/12/20 11:00 100.0 76 26 137/69 (91) 100.0 I & O 08/11/20 08/11/20 08/12/20 15:00 23:00 07:00 Intake Total 200 ml 2311 ml 2321 ml Output Total 600 ml 920 ml 565 ml Balance -400 ml 1391 ml 1756 ml Physical Exam Physical Exam: General intubated/sedated HEENT normocephalic atraumatic , trach LUNGS: Coarse breath sounds anteriorly HEART: S1-S2 no murmurs ABDOMEN: Nondistended, soft bowel sounds present Fernandez in place SKIN: No generalized rash Right upper extremity PICC line removed PIV Clean Neuro intubated/sedated General: Other (sedated ) Lungs: Clear Labs Labs: Laboratory Tests Test 08/11/20 13:30 08/11/20 21:05 08/12/20 04:00 08/12/20 08:50 Heparin Anti-Xa Act, Unfractionated < 0.10 IU/mL (0.30-0.70) < 0.10 IU/mL (0.30-0.70) 0.14 IU/mL (0.30-0.70) White Blood Count 11.0 x10^3/uL (4.0-11.0) Red Blood Count 2.92 x10^6/uL (4.30-5.70) Hemoglobin 9.3 g/dL (13.0-17.5) Hematocrit 27.1 % (39.0-53.0) Mean Corpuscular Volume 93 fL (79-100) Mean Corpuscular Hemoglobin 32 pg (25-35) Mean Corpuscular Hemoglobin Concent 34 g/dL (31-37) Red Cell Distribution Width 16.0 % (11.5-14.5) Platelet Count 428 x10^3/uL (140-400) Neutrophils (%) (Auto) 74 % (31-73) Lymphocytes (%) (Auto) 12 % (24-48) Monocytes (%) (Auto) 13 % (0-9) Eosinophils (%) (Auto) 0 % (0-3) Basophils (%) (Auto) 1 % (0-3) Neutrophils # (Auto) 8.0 x10^3/uL (1.8-7.7) Lymphocytes # (Auto) 1.3 x10^3/uL (1.0-4.8) Monocytes # (Auto) 1.5 x10^3/uL (0.0-1.1) Eosinophils # (Auto) 0.0 x10^3/uL (0.0-0.7) Basophils # (Auto) 0.1 x10^3/uL (0.0-0.2) Sodium Level 139 mmol/L (136-145) Potassium Level 2.9 mmol/L (3.5-5.1) Chloride Level 102 mmol/L (98-107) Carbon Dioxide Level 31 mmol/L (21-32) Anion Gap 6 (6-14) Blood Urea Nitrogen 3 mg/dL (8-26) Creatinine 0.5 mg/dL (0.7-1.3) Estimated GFR (Cockcroft-Gault) 176.0 BUN/Creatinine Ratio 6 (6-20) Glucose Level 201 mg/dL (70-99) Calcium Level 8.1 mg/dL (8.5-10.1) Total Bilirubin 0.3 mg/dL (0.2-1.0) Aspartate Amino Transf (AST/SGOT) 15 U/L (15-37) Alanine Aminotransferase (ALT/SGPT) 21 U/L (16-63) Alkaline Phosphatase 186 U/L (46-116) Total Protein 6.0 g/dL (6.4-8.2) Albumin 1.5 g/dL (3.4-5.0) Albumin/Globulin Ratio 0.3 (1.0-1.7) O2 Saturation 95 % (92-99) Arterial Blood pH 7.51 (7.35-7.45) Arterial Blood pCO2 at Patient Temp 36 mmHg (35-46) Arterial Blood pO2 at Patient Temp 74 mmHg (75-108) Arterial Blood HCO3 28 mmol/L (21-28) Arterial Blood Base Excess 5 mmol/L (-3-3) FiO2 40% Assessment and Plan Assessmemt and Plan Problems Medical Problems: (1) Acute respiratory failure with hypoxia Status: Acute (2) PRIYA (acute kidney injury) Status: Acute (3) Elevated troponin I level Status: Acute (4) Pulmonary emboli Status: Acute (5) Suspected COVID-19 virus infection Status: Acute Comment Review of Relevant I have reviewed the following items trino (where applicable) has been applied. Medications: Current Medications Medications (Trade) Dose Ordered Sig/Natalee Route PRN Reason Start Time Stop Time Status Last Admin Dose Admin Potassium Bicarbonate (Potassium Effervescent Tablet) 40 meq Q2H PO 08/11/20 12:45 08/11/20 14:46 DC 08/11/20 14:58 Vancomycin HCl (Vanco Per Pharmacy) 1 each PRN DAILY PRN MC SEE COMMENTS 08/11/20 13:30 08/11/20 16:28 Vancomycin HCl 1.75 gm/Sodium Chloride 500 ml @ 250 mls/hr 1X ONCE IV 08/11/20 14:00 08/11/20 15:59 DC 08/11/20 14:46 Heparin Sodium/ Dextrose 250 ml @ 0 mls/hr CONT PRN IV PER PROTOCOL 08/11/20 14:30 08/12/20 07:21 Heparin Sodium (Porcine) (Heparin Sodium) 2,450 unit PRN Q6HRS PRN IV FOR UFH LEVEL LESS THAN 0.2 08/11/20 14:30 08/12/20 05:34 Vancomycin HCl 1.5 gm/Sodium Chloride 500 ml @ 250 mls/hr Q8H IV 08/11/20 23:00 08/12/20 07:23 Potassium Chloride/Water 100 ml @ 100 mls/hr Q1H IV 08/12/20 05:00 08/12/20 12:59 08/12/20 11:21 Justifications for Admission Other Justification DOROTHEA VIRK MD Aug 12, 2020 12:05
--- NOTE | 2020-08-12 13:41 | PDOC ---
PULMONARY PROGRESS NOTES DATE: 08/12/20 TIME: 13:39 Subjective PT. remains on vent support , 40% FiO2 and a PEEP of 6 Status post tracheostomy on 08/06/2020 and S/P peg tube on 08/09 Continues to have fevers on low dose precedex, following command and awake No other concerns from nursing overnight Vitals Vital Signs Date Time Temp Pulse Resp B/P (MAP) Pulse Ox O2 Delivery O2 Flow Rate FiO2 08/12/20 13:00 100.2 88 29 146/76 (99) 97 Ventilator 100.2 Comments General: Alert HEENT: Other (trach midline) Lungs: Clear Cardiovascular: S1, S2 Abdomen: Soft Skin: Warm, Dry Labs Laboratory Tests Test 08/11/20 06:10 08/11/20 13:30 08/11/20 21:05 08/12/20 04:00 White Blood Count 9.7 x10^3/uL (4.0-11.0) 11.0 x10^3/uL (4.0-11.0) Red Blood Count 2.97 x10^6/uL (4.30-5.70) 2.92 x10^6/uL (4.30-5.70) Hemoglobin 9.2 g/dL (13.0-17.5) 9.3 g/dL (13.0-17.5) Hematocrit 27.9 % (39.0-53.0) 27.1 % (39.0-53.0) Mean Corpuscular Volume 94 fL (79-100) 93 fL (79-100) Mean Corpuscular Hemoglobin 31 pg (25-35) 32 pg (25-35) Mean Corpuscular Hemoglobin Concent 33 g/dL (31-37) 34 g/dL (31-37) Red Cell Distribution Width 15.6 % (11.5-14.5) 16.0 % (11.5-14.5) Platelet Count 468 x10^3/uL (140-400) 428 x10^3/uL (140-400) Neutrophils (%) (Auto) 69 % (31-73) 74 % (31-73) Lymphocytes (%) (Auto) 12 % (24-48) 12 % (24-48) Monocytes (%) (Auto) 16 % (0-9) 13 % (0-9) Eosinophils (%) (Auto) 2 % (0-3) 0 % (0-3) Basophils (%) (Auto) 1 % (0-3) 1 % (0-3) Neutrophils # (Auto) 6.7 x10^3/uL (1.8-7.7) 8.0 x10^3/uL (1.8-7.7) Lymphocytes # (Auto) 1.2 x10^3/uL (1.0-4.8) 1.3 x10^3/uL (1.0-4.8) Monocytes # (Auto) 1.6 x10^3/uL (0.0-1.1) 1.5 x10^3/uL (0.0-1.1) Eosinophils # (Auto) 0.2 x10^3/uL (0.0-0.7) 0.0 x10^3/uL (0.0-0.7) Basophils # (Auto) 0.1 x10^3/uL (0.0-0.2) 0.1 x10^3/uL (0.0-0.2) Sodium Level 138 mmol/L (136-145) 139 mmol/L (136-145) Potassium Level 3.0 mmol/L (3.5-5.1) 2.9 mmol/L (3.5-5.1) Chloride Level 100 mmol/L (98-107) 102 mmol/L (98-107) Carbon Dioxide Level 30 mmol/L (21-32) 31 mmol/L (21-32) Anion Gap 8 (6-14) 6 (6-14) Blood Urea Nitrogen 2 mg/dL (8-26) 3 mg/dL (8-26) Creatinine 0.3 mg/dL (0.7-1.3) 0.5 mg/dL (0.7-1.3) Estimated GFR (Cockcroft-Gault) > 300.0 176.0 BUN/Creatinine Ratio 7 (6-20) 6 (6-20) Glucose Level 146 mg/dL (70-99) 201 mg/dL (70-99) Calcium Level 8.0 mg/dL (8.5-10.1) 8.1 mg/dL (8.5-10.1) Total Bilirubin 0.2 mg/dL (0.2-1.0) 0.3 mg/dL (0.2-1.0) Aspartate Amino Transf (AST/SGOT) 16 U/L (15-37) 15 U/L (15-37) Alanine Aminotransferase (ALT/SGPT) 26 U/L (16-63) 21 U/L (16-63) Alkaline Phosphatase 251 U/L (46-116) 186 U/L (46-116) Total Protein 5.8 g/dL (6.4-8.2) 6.0 g/dL (6.4-8.2) Albumin 1.4 g/dL (3.4-5.0) 1.5 g/dL (3.4-5.0) Albumin/Globulin Ratio 0.3 (1.0-1.7) 0.3 (1.0-1.7) Heparin Anti-Xa Act, Unfractionated < 0.10 IU/mL (0.30-0.70) < 0.10 IU/mL (0.30-0.70) 0.14 IU/mL (0.30-0.70) Test 08/12/20 08:50 08/12/20 11:34 O2 Saturation 95 % (92-99) Arterial Blood pH 7.51 (7.35-7.45) Arterial Blood pCO2 at Patient Temp 36 mmHg (35-46) Arterial Blood pO2 at Patient Temp 74 mmHg (75-108) Arterial Blood HCO3 28 mmol/L (21-28) Arterial Blood Base Excess 5 mmol/L (-3-3) FiO2 40% Heparin Anti-Xa Act, Unfractionated 0.26 IU/mL (0.30-0.70) Laboratory Tests Test 08/11/20 21:05 08/12/20 04:00 08/12/20 08:50 08/12/20 11:34 Heparin Anti-Xa Act, Unfractionated < 0.10 IU/mL (0.30-0.70) 0.14 IU/mL (0.30-0.70) 0.26 IU/mL (0.30-0.70) White Blood Count 11.0 x10^3/uL (4.0-11.0) Red Blood Count 2.92 x10^6/uL (4.30-5.70) Hemoglobin 9.3 g/dL (13.0-17.5) Hematocrit 27.1 % (39.0-53.0) Mean Corpuscular Volume 93 fL (79-100) Mean Corpuscular Hemoglobin 32 pg (25-35) Mean Corpuscular Hemoglobin Concent 34 g/dL (31-37) Red Cell Distribution Width 16.0 % (11.5-14.5) Platelet Count 428 x10^3/uL (140-400) Neutrophils (%) (Auto) 74 % (31-73) Lymphocytes (%) (Auto) 12 % (24-48) Monocytes (%) (Auto) 13 % (0-9) Eosinophils (%) (Auto) 0 % (0-3) Basophils (%) (Auto) 1 % (0-3) Neutrophils # (Auto) 8.0 x10^3/uL (1.8-7.7) Lymphocytes # (Auto) 1.3 x10^3/uL (1.0-4.8) Monocytes # (Auto) 1.5 x10^3/uL (0.0-1.1) Eosinophils # (Auto) 0.0 x10^3/uL (0.0-0.7) Basophils # (Auto) 0.1 x10^3/uL (0.0-0.2) Sodium Level 139 mmol/L (136-145) Potassium Level 2.9 mmol/L (3.5-5.1) Chloride Level 102 mmol/L (98-107) Carbon Dioxide Level 31 mmol/L (21-32) Anion Gap 6 (6-14) Blood Urea Nitrogen 3 mg/dL (8-26) Creatinine 0.5 mg/dL (0.7-1.3) Estimated GFR (Cockcroft-Gault) 176.0 BUN/Creatinine Ratio 6 (6-20) Glucose Level 201 mg/dL (70-99) Calcium Level 8.1 mg/dL (8.5-10.1) Total Bilirubin 0.3 mg/dL (0.2-1.0) Aspartate Amino Transf (AST/SGOT) 15 U/L (15-37) Alanine Aminotransferase (ALT/SGPT) 21 U/L (16-63) Alkaline Phosphatase 186 U/L (46-116) Total Protein 6.0 g/dL (6.4-8.2) Albumin 1.5 g/dL (3.4-5.0) Albumin/Globulin Ratio 0.3 (1.0-1.7) O2 Saturation 95 % (92-99) Arterial Blood pH 7.51 (7.35-7.45) Arterial Blood pCO2 at Patient Temp 36 mmHg (35-46) Arterial Blood pO2 at Patient Temp 74 mmHg (75-108) Arterial Blood HCO3 28 mmol/L (21-28) Arterial Blood Base Excess 5 mmol/L (-3-3) FiO2 40% Comments CXR 08/12 IMPRESSION: 1. Tracheostomy tube placement. 2. Stable bilateral pulmonary opacities and left pleural effusion. 3. Nasogastric tube removed. Impression . IMPRESSION: 1. Acute hypoxemic respiratory failure./ALI/ARDS due to COVID -19 2. Acute pulmonary embolism with cor pulmonale. 3. COVID-[address] chest revealing ground glass opacities. 5. Hypertension. 6. History of bronchitis. 7. Elevated troponin. 8. Acute kidney injury. 9. Leukocytosis. 10. Covid-19 positive 11. Possible loculated hydroPTX left base 12. fever ?tb Plan . Continue current ventilatory support, FiO2 40% and a PEEP of 6, Pressure support as tolerate during the day and A/C overnight Precedex if needed Status post tracheostomy 08/06 and S/P Peg tube placement 08/09 continue heparin gtt today, monitor hemoglobin reviewed chest x-ray and ABG, no changes today Follow cardiology recommendations Antibiotics per ID--AFB negative, repeat cultures negative, continues to have fevers, currently on vanco Has completed full course of remdesivir Hypokalemia per PCP Continue tube feeding for nutritional support DVT/GI prophylaxis,Protonix-- heparin gtt Discussed with RN and RT Pt. is FULL CODE critically ill Critical care time [id number] ALVIN RAMSEY MD Aug 12, 2020 13:41
[2020-08-12 14:36] LABS: VANC TR 12.8 mcg/mL (10.0-20.0)
[2020-08-12] MEDS: VANCOMYCIN PER PHARMACY MC PRN (16:21)
--- NOTE | 2020-08-12 16:21 | NUR ---
Pharmacy Vancomycin Dosing Note S: Consulted to monitor and dose vancomycin started 07/25/20. O: ABHISHEK SKINNER is a 49 year old M with bacteremia. Other Antibiotics: NONE LABS: Last BUN: 3 Last Creatinine: 0.5 Creatinine Clearance: >100 mL/min Last WBC: 11 Tmax (past 24 hours): 102.4 Microbiology: BLOOD CX (08/06): [facility] I/O: 765/1665 Drug Levels: Last Trough level: 12.8 on 08/11/20 at 1430 Last dose given 08/12/20 at 0753 Vancomycin Dosing: Dosing Weight: Actual Target Trough: 15-20 A: Patient is on vancomycin 1500 mg IV q 8hrs. A trough of 12.8 mcg/ml is below goal range. His renal function remains stable. P: 1. Change to Vancomycin 1750 mg IV q8h 2. Follow up Trough level on 08/13/20 at 1430 3. Pharmacy will continue to monitor, follow and adjust therapy as needed. AKIRA OLIVARES, [facility], 08/12/20 [id number]
[2020-08-12] MEDS: PROCHLORPERAZINE 10 MG/2 ML VIAL. IV PRN (21:55)
--- NOTE | 2020-08-12 22:35 | EKG ---
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
[2020-08-12] MEDS ORDERED: MECLIZINE HCL 12.5 MG TABLET. PO PRN (23:00)
[2020-08-12] MEDS: VANCOMYCIN 1.75 GM in IV NORMAL SALINE 500ML BAG 500 ML IV SCH (23:00)
[2020-08-13] VITALS (24 sets, daily range): BP systolic 115–144; BP diastolic 65–84
[2020-08-13] MEDS: POTASSIUM CHLORIDE 10MEQ 100 ML IV SCH ×10 (00:42→18:10)
[2020-08-13] MEDS: MAGNESIUM SULFATE 4GM 100 ML IV SCH (02:02)
[2020-08-13 05:12] LABS: HEMATOCRIT 27.3 % (39.0-53.0); RED BLOOD COUNT 2.92 x10^6/uL (4.30-5.70); RED CELL DISTRIBUTION WIDTH 15.7 % (11.5-14.5); WHITE BLOOD COUNT 13.1 x10^3/uL (4.0-11.0)
[2020-08-13 05:37] LABS: ALBUMIN 1.6 g/dL (3.4-5.0); ALBUMIN/GLOBULIN RATIO 0.3 (1.0-1.7); CALCIUM 8.1 mg/dL (8.5-10.1); CREATININE 0.5 mg/dL (0.7-1.3); POTASSIUM 3.3 mmol/L (3.5-5.1); TOTAL BILIRUBIN 0.3 mg/dL (0.2-1.0); TOTAL PROTEIN 6.2 g/dL (6.4-8.2)
[2020-08-13] MEDS: HEPARIN for IV BOLUS 10,000 UNIT/10 ML VIAL. IV PRN (05:39)
[2020-08-13] MEDS: VANCOMYCIN 1.75 GM in IV NORMAL SALINE 500ML BAG 500 ML IV SCH ×3 (06:32→23:47)
--- NOTE | 2020-08-13 08:03 | PDOC ---
Infectious Disease Note Subjective: Subjective Patient with trach on vent low grade fevers Vital Signs: Vital Signs Vital Signs Date Time Temp Pulse Resp B/P (MAP) Pulse Ox O2 Delivery O2 Flow Rate FiO2 08/13/20 06:00 100.0 78 21 128/73 (91) 98 Ventilator 100.0 Physical Exam: PHYSICAL EXAM General on vent,alert HEENT normocephalic atraumatic , trach LUNGS: Coarse breath sounds anteriorly HEART: S1-S2 no murmurs ABDOMEN: mildly distended, soft bowel sounds present Fernandez in place,fecal tube in place SKIN: No generalized rash Right upper extremity PICC line removed PIVs Clean Neuro alert awake Medications: Inpatient Meds: Current Medications Medications (Trade) Dose Ordered Sig/Natalee Start Time Stop Time Status Last Admin Dose Admin Acetaminophen (Tylenol Supp) 650 mg PRN Q6HRS PRN 08/06/20 20:45 08/07/20 19:28 650 MG Acetaminophen (Tylenol) 650 mg PRN Q6HRS PRN 07/12/20 12:00 08/11/20 00:04 650 MG Apixaban (Eliquis) 5 mg BID 07/23/20 09:00 07/27/20 12:19 DC 07/26/20 20:31 5 MG Ascorbic Acid (Vitamin C) 500 mg Q6HRS 07/04/20 18:00 08/05/20 08:39 DC 08/05/20 06:07 500 MG Azithromycin (Zithromax) 500 mg 1X ONCE 07/03/20 19:15 07/03/20 19:19 DC 07/03/20 20:11 500 MG Bupivacaine HCl/ Epinephrine Bitart (Sensorcain-Epi 0.5%-1:[id number] Mpf) 30 ml 1X ONCE 08/06/20 06:30 08/06/20 06:31 DC 08/06/20 15:15 1 ML Cefazolin Sodium/ Dextrose 50 ml @ 100 mls/hr 1X ONCE 08/09/20 11:00 08/09/20 11:29 DC 08/09/20 11:04 100 MLS/HR Ceftriaxone Sodium (Rocephin) 1 gm 1X ONCE 07/03/20 19:15 07/03/20 19:19 DC 07/03/20 20:11 1 GM Cellulose (Surgicel Fibrillar 1x2) 1 each STK-MED ONCE 07/31/20 13:08 07/31/20 13:08 DC Cellulose (Surgicel Hemostat 4x8) 1 each STK-MED ONCE 08/06/20 14:10 08/06/20 14:11 DC Daptomycin 470 mg/ Sodium Chloride 50 ml @ 100 mls/hr Q24H 08/01/20 09:00 08/05/20 11:20 DC 08/05/20 09:24 100 MLS/HR Dexmedetomidine HCl 400 mcg/ Sodium Chloride 100 ml @ 0 mls/hr CONT PRN 08/11/20 10:00 08/12/20 22:34 4.1 MLS/HR Dextrose (Dextrose 50%-Water Syringe) 12.5 gm PRN Q15MIN PRN 07/05/20 14:15 Enoxaparin Sodium (Lovenox 150mg Syringe) 150 mg 1X ONCE 07/03/20 23:00 07/03/20 23:01 DC 07/03/20 22:45 150 MG Etomidate (Amidate) 10 mg 1X ONCE 07/04/20 09:30 07/04/20 09:31 DC 07/04/20 09:37 10 MG Fentanyl Citrate (Fentanyl 2ml Vial) 100 mcg STK-MED ONCE 08/06/20 11:03 08/06/20 11:03 DC Furosemide (Lasix) 20 mg 1X ONCE 07/29/20 06:30 07/29/20 06:31 DC 07/29/20 06:35 20 MG Heparin Sodium (Porcine) (Heparin Sodium) 1,250 unit PRN Q6HRS PRN 08/11/20 14:30 08/12/20 21:53 1,250 UNIT Heparin Sodium/ Dextrose 250 ml @ 0 mls/hr CONT PRN 08/11/20 14:30 08/12/20 21:55 21.3 MLS/HR Hydromorphone HCl (Dilaudid) 0.5 mg PRN Q10MIN PRN 08/06/20 07:00 08/07/20 06:59 DC Info (Anti-Coagulation Monitoring By Pharmacy) 1 each PRN DAILY PRN 07/16/20 08:15 08/05/20 11:05 1 EACH Info (CONTRAST GIVEN -- Rx MONITORING) 1 each PRN DAILY PRN 07/03/20 20:45 07/05/20 20:44 DC Info (Icu Electrolyte Protocol) 1 ea CONT PRN PRN 07/24/20 15:45 Insulin Human Lispro (HumaLOG) 0-9 UNITS [id number] 07/27/20 18:00 08/01/20 17:17 DC 07/27/20 18:17 4 UNITS Iohexol (Omnipaque 350 Mg/ml) 90 ml 1X ONCE 07/03/20 20:45 07/03/20 20:46 DC 07/03/20 21:00 90 ML Levofloxacin/ Dextrose 150 ml @ 100 mls/hr Q24H 08/02/20 09:00 08/05/20 11:20 DC 08/05/20 07:16 100 MLS/HR Lidocaine HCl (Xylocaine-Mpf 1% 2ml Vial) 2 ml PRN 1X PRN 08/06/20 07:00 08/07/20 06:59 DC Linezolid/Dextrose 300 ml @ 300 mls/hr Q12HR 07/27/20 12:30 07/31/20 07:36 DC 07/30/20 21:47 300 MLS/HR Lorazepam (Ativan Inj) 2 mg PRN Q1HR PRN 07/21/20 12:30 07/24/20 06:51 2 MG Magnesium Sulfate 100 ml @ 50 mls/hr DAILY 08/13/20 00:00 08/16/20 00:00 08/13/20 02:02 50 MLS/HR Meclizine HCl (Antivert) 25 mg PRN DAILY PRN 08/12/20 23:00 Meropenem 500 mg/ Sodium Chloride 50 ml @ 100 mls/hr Q6HRS 07/26/20 12:00 08/02/20 07:46 DC 08/02/20 06:02 100 MLS/HR Methylprednisolone Sodium Succinate (SOLU-Medrol 40MG VIAL) 40 mg DAILY 07/21/20 09:00 07/22/20 09:36 DC 07/22/20 09:08 40 MG Midazolam HCl (Versed) 5 mg STK-MED ONCE 07/04/20 09:21 07/04/20 09:21 DC Morphine Sulfate (Morphine Sulfate) 1 mg PRN Q10MIN PRN 08/06/20 07:00 08/07/20 06:59 DC Multi-Ingred Cream/Lotion/Oil/ Oint (Artificial Tears Eye Ointment) 1 wenceslao PRN Q1HR PRN 07/18/20 10:45 07/27/20 17:19 1 WENCESLAO Norepinephrine Bitartrate 8 mg/ Dextrose 258 ml @ 16.061 mls/ hr CONT PRN 07/04/20 13:15 07/18/20 11:01 DC 07/05/20 00:33 28.909 MLS/HR Ondansetron HCl (Zofran) 4 mg PRN Q6HRS PRN 08/06/20 07:00 08/07/20 06:59 DC Pantoprazole Sodium (PROTONIX VIAL for IV PUSH) 40 mg DAILYAC 07/04/20 12:30 08/12/20 07:35 40 MG Piperacillin Sod/ Tazobactam Sod (Zosyn Per Pharmacy) 1 each PRN DAILY PRN 07/04/20 12:00 07/18/20 07:46 DC Piperacillin Sod/ Tazobactam Sod 3.375 gm/Sodium Chloride 50 ml @ 100 mls/hr Q6HRS 07/04/20 12:00 07/17/20 11:11 DC 07/17/20 05:10 100 MLS/HR Piperacillin Sod/ Tazobactam Sod 4.5 gm/Sodium Chloride 100 ml @ 200 mls/hr Q6HRS 07/24/20 12:00 07/26/20 10:53 DC 07/26/20 05:36 200 MLS/HR Potassium Bicarbonate (Potassium Effervescent Tablet) 40 meq Q2H 08/11/20 12:45 08/11/20 14:46 DC 08/11/20 14:58 40 MEQ Potassium Chloride/Water 100 ml @ 100 mls/hr Q1H 08/13/20 02:00 08/13/20 05:59 DC 08/13/20 06:17 100 MLS/HR Potassium Phosphate 13.6 mmol/Sodium Chloride 254.5333 ml @ 62.5 mls/hr Q4H 07/24/20 15:30 07/25/20 03:29 UNV Prochlorperazine Edisylate (Compazine) 10 mg PRN Q6HRS PRN 08/12/20 21:30 08/12/20 21:55 10 MG Propofol 100 ml @ 0 mls/hr CONT PRN 07/04/20 09:15 08/11/20 06:42 14.9 MLS/HR Remdesivir 100 mg/ Sodium Chloride 230 ml @ 460 mls/hr Q24H 07/07/20 14:30 07/10/20 14:59 DC 07/10/20 13:59 460 MLS/HR Remdesivir 200 mg/ Sodium Chloride 210 ml @ 210 mls/hr 1X ONCE 07/06/20 14:30 07/06/20 15:29 DC 07/06/20 14:51 210 MLS/HR Ringer's Solution 1,000 ml @ 30 mls/hr Q24H 08/09/20 06:00 08/09/20 17:59 DC 08/09/20 06:11 30 MLS/HR Rocuronium [place] (Zemuron) 50 mg STK-MED ONCE 08/06/20 15:19 08/06/20 15:19 DC Sevoflurane (Ultane) 30 ml STK-MED ONCE 08/06/20 15:18 08/06/20 15:19 DC Sodium Chloride 1,000 ml @ 100 mls/hr Q10H 08/07/20 12:00 08/12/20 10:50 DC 08/11/20 16:30 100 MLS/HR Sodium Phosphate 20 mmol/Sodium Chloride 256.6667 ml @ 62.5 mls/hr 1X ONCE 07/24/20 15:30 07/24/20 19:36 UNV Sodium Phosphate 30 mmol/Sodium Chloride 260 ml @ 62.5 mls/hr 1X ONCE 07/24/20 15:30 07/24/20 19:39 UNV Succinylcholine Chloride (Anectine) 200 mg 1X ONCE 07/04/20 09:30 07/04/20 09:31 DC 07/04/20 09:38 200 MG Throat Lozenges (Cepacol Sore Throat Lozenge) 1 lety PRN Q2HRS PRN 07/04/20 01:15 Vancomycin HCl (Vanco Per Pharmacy) 1 each PRN DAILY PRN 08/11/20 13:30 08/12/20 16:21 1 EACH Vancomycin HCl (Vancomycin Trough Level) 1 each 1X ONCE 08/13/20 14:30 08/13/20 14:31 Vancomycin HCl 1.25 gm/Sodium Chloride 250 ml @ 167 mls/hr Q8H 07/25/20 15:00 07/26/20 07:31 DC 07/25/20 22:44 167 MLS/HR Vancomycin HCl 1.5 gm/Sodium Chloride 500 ml @ 250 mls/hr Q8H 08/11/20 23:00 08/12/20 15:13 DC 08/12/20 14:49 250 MLS/HR Vancomycin HCl 1.75 gm/Sodium Chloride 500 ml @ 250 mls/hr Q8H 08/12/20 23:00 08/13/20 06:32 250 MLS/HR Vancomycin HCl 2 gm/Sodium Chloride 500 ml @ 250 mls/hr 1X ONCE 07/25/20 07:00 07/25/20 08:59 DC 07/25/20 07:06 250 MLS/HR Vecuronium [place] 50 mg/ Miscellaneous 50 ml @ 4.094 mls/ hr CONT PRN 07/12/20 14:45 07/22/20 09:34 DC 07/18/20 01:56 7.5 MLS/HR Vecuronium [place] (Norcuron Bolus) 6 mg PRN Q6HRS PRN 07/28/20 23:00 08/09/20 15:05 6 MG Vitamin D (Vitamin D3) 5,000 unit DAILY 07/05/20 09:00 08/12/20 09:20 5,000 UNIT Zinc Sulfate (Orazinc) 220 mg DAILY 07/05/20 09:00 08/12/20 09:20 220 MG Labs: Lab Laboratory Tests Test 08/12/20 08:50 08/12/20 11:34 08/12/20 14:12 08/12/20 20:40 O2 Saturation 95 % (92-99) Arterial Blood pH 7.51 (7.35-7.45) Arterial Blood pCO2 at Patient Temp 36 mmHg (35-46) Arterial Blood pO2 at Patient Temp 74 mmHg (75-108) Arterial Blood HCO3 28 mmol/L (21-28) Arterial Blood Base Excess 5 mmol/L (-3-3) FiO2 40% Heparin Anti-Xa Act, Unfractionated 0.26 IU/mL (0.30-0.70) 0.26 IU/mL (0.30-0.70) Vancomycin Level Trough 12.8 mcg/mL (10.0-20.0) Vancomycin Last Dose Date 08/12/20 Vancomycin Last Dose Time 0700 Potassium Level 3.1 mmol/L (3.5-5.1) Magnesium Level 1.7 mg/dL (1.8-2.4) Test 08/13/20 04:40 White Blood Count 13.1 x10^3/uL (4.0-11.0) Red Blood Count 2.92 x10^6/uL (4.30-5.70) Hemoglobin 9.0 g/dL (13.0-17.5) Hematocrit 27.3 % (39.0-53.0) Mean Corpuscular Volume 94 fL (79-100) Mean Corpuscular Hemoglobin 31 pg (25-35) Mean Corpuscular Hemoglobin Concent 33 g/dL (31-37) Red Cell Distribution Width 15.7 % (11.5-14.5) Platelet Count 420 x10^3/uL (140-400) Heparin Anti-Xa Act, Unfractionated < 0.10 IU/mL (0.30-0.70) Sodium Level 139 mmol/L (136-145) Potassium Level 3.3 mmol/L (3.5-5.1) Chloride Level 102 mmol/L (98-107) Carbon Dioxide Level 31 mmol/L (21-32) Anion Gap 6 (6-14) Blood Urea Nitrogen 3 mg/dL (8-26) Creatinine 0.5 mg/dL (0.7-1.3) Estimated GFR (Cockcroft-Gault) 176.0 BUN/Creatinine Ratio 6 (6-20) Glucose Level 159 mg/dL (70-99) Calcium Level 8.1 mg/dL (8.5-10.1) Total Bilirubin 0.3 mg/dL (0.2-1.0) Aspartate Amino Transf (AST/SGOT) 17 U/L (15-37) Alanine Aminotransferase (ALT/SGPT) 23 U/L (16-63) Alkaline Phosphatase 151 U/L (46-116) Total Protein 6.2 g/dL (6.4-8.2) Albumin 1.6 g/dL (3.4-5.0) Albumin/Globulin Ratio 0.3 (1.0-1.7) Objective: Assessment: Fever Leukocytosis improved COVID-19 positive. Status post remdesivir, steroids Acute hypoxic respiratory failure/ARDS /pneumonia Bilateral pulmonary emboli. Hypertension. Bacteremia 07/23 08/25 bottles staph hominis likely contaminant Repeat blood cultures staph capitis likely contaminant repeat BC 08/06 staph pettenkori likely contaminant Enterobacter UTI and pneumonia Plan: Plan of Care cont vanc RUE PICC line DC'd Fernandez changed 07/26 Follow-up repeat BC Monitor labs and cultures fever ? may have TB KUB Check c diff pcr tracheal aspirate for afb stain neg so far,, culture pending D/W JAMI LUCAS MD Aug 13, 2020 08:03
--- NOTE | 2020-08-13 08:24 | PDOC ---
PULMONARY PROGRESS NOTES DATE: 08/13/20 TIME: 08:24 Subjective PT. remains on vent support , 40% FiO2 and a PEEP of 6 Status post tracheostomy on 08/06/2020 and S/P peg tube on 08/09 Continues to have fevers Pressure support yesterday X2 for short periods No other concerns from nursing overnight Vitals Vital Signs Date Time Temp Pulse Resp B/P (MAP) Pulse Ox O2 Delivery O2 Flow Rate FiO2 08/13/20 08:00 82 26 138/76 (96) 97 Ventilator 08/13/20 07:00 100.0 100.0 Comments General: Alert, Oriented X4 HEENT: Other (trach midline) Lungs: Clear Cardiovascular: S1, S2 Abdomen: Soft Neuro Exam: Alert Extremities: No Edema Skin: Warm, Dry Labs Laboratory Tests Test 08/11/20 13:30 08/11/20 21:05 08/12/20 04:00 08/12/20 08:50 Heparin Anti-Xa Act, Unfractionated < 0.10 IU/mL (0.30-0.70) < 0.10 IU/mL (0.30-0.70) 0.14 IU/mL (0.30-0.70) White Blood Count 11.0 x10^3/uL (4.0-11.0) Red Blood Count 2.92 x10^6/uL (4.30-5.70) Hemoglobin 9.3 g/dL (13.0-17.5) Hematocrit 27.1 % (39.0-53.0) Mean Corpuscular Volume 93 fL (79-100) Mean Corpuscular Hemoglobin 32 pg (25-35) Mean Corpuscular Hemoglobin Concent 34 g/dL (31-37) Red Cell Distribution Width 16.0 % (11.5-14.5) Platelet Count 428 x10^3/uL (140-400) Neutrophils (%) (Auto) 74 % (31-73) Lymphocytes (%) (Auto) 12 % (24-48) Monocytes (%) (Auto) 13 % (0-9) Eosinophils (%) (Auto) 0 % (0-3) Basophils (%) (Auto) 1 % (0-3) Neutrophils # (Auto) 8.0 x10^3/uL (1.8-7.7) Lymphocytes # (Auto) 1.3 x10^3/uL (1.0-4.8) Monocytes # (Auto) 1.5 x10^3/uL (0.0-1.1) Eosinophils # (Auto) 0.0 x10^3/uL (0.0-0.7) Basophils # (Auto) 0.1 x10^3/uL (0.0-0.2) Sodium Level 139 mmol/L (136-145) Potassium Level 2.9 mmol/L (3.5-5.1) Chloride Level 102 mmol/L (98-107) Carbon Dioxide Level 31 mmol/L (21-32) Anion Gap 6 (6-14) Blood Urea Nitrogen 3 mg/dL (8-26) Creatinine 0.5 mg/dL (0.7-1.3) Estimated GFR (Cockcroft-Gault) 176.0 BUN/Creatinine Ratio 6 (6-20) Glucose Level 201 mg/dL (70-99) Calcium Level 8.1 mg/dL (8.5-10.1) Total Bilirubin 0.3 mg/dL (0.2-1.0) Aspartate Amino Transf (AST/SGOT) 15 U/L (15-37) Alanine Aminotransferase (ALT/SGPT) 21 U/L (16-63) Alkaline Phosphatase 186 U/L (46-116) Total Protein 6.0 g/dL (6.4-8.2) Albumin 1.5 g/dL (3.4-5.0) Albumin/Globulin Ratio 0.3 (1.0-1.7) O2 Saturation 95 % (92-99) Arterial Blood pH 7.51 (7.35-7.45) Arterial Blood pCO2 at Patient Temp 36 mmHg (35-46) Arterial Blood pO2 at Patient Temp 74 mmHg (75-108) Arterial Blood HCO3 28 mmol/L (21-28) Arterial Blood Base Excess 5 mmol/L (-3-3) FiO2 40% Test 08/12/20 11:34 08/12/20 14:12 08/12/20 20:40 08/13/20 04:40 Heparin Anti-Xa Act, Unfractionated 0.26 IU/mL (0.30-0.70) 0.26 IU/mL (0.30-0.70) < 0.10 IU/mL (0.30-0.70) Vancomycin Level Trough 12.8 mcg/mL (10.0-20.0) Vancomycin Last Dose Date 08/12/20 Vancomycin Last Dose Time 0700 Potassium Level 3.1 mmol/L (3.5-5.1) 3.3 mmol/L (3.5-5.1) Magnesium Level 1.7 mg/dL (1.8-2.4) White Blood Count 13.1 x10^3/uL (4.0-11.0) Red Blood Count 2.92 x10^6/uL (4.30-5.70) Hemoglobin 9.0 g/dL (13.0-17.5) Hematocrit 27.3 % (39.0-53.0) Mean Corpuscular Volume 94 fL (79-100) Mean Corpuscular Hemoglobin 31 pg (25-35) Mean Corpuscular Hemoglobin Concent 33 g/dL (31-37) Red Cell Distribution Width 15.7 % (11.5-14.5) Platelet Count 420 x10^3/uL (140-400) Sodium Level 139 mmol/L (136-145) Chloride Level 102 mmol/L (98-107) Carbon Dioxide Level 31 mmol/L (21-32) Anion Gap 6 (6-14) Blood Urea Nitrogen 3 mg/dL (8-26) Creatinine 0.5 mg/dL (0.7-1.3) Estimated GFR (Cockcroft-Gault) 176.0 BUN/Creatinine Ratio 6 (6-20) Glucose Level 159 mg/dL (70-99) Calcium Level 8.1 mg/dL (8.5-10.1) Total Bilirubin 0.3 mg/dL (0.2-1.0) Aspartate Amino Transf (AST/SGOT) 17 U/L (15-37) Alanine Aminotransferase (ALT/SGPT) 23 U/L (16-63) Alkaline Phosphatase 151 U/L (46-116) Total Protein 6.2 g/dL (6.4-8.2) Albumin 1.6 g/dL (3.4-5.0) Albumin/Globulin Ratio 0.3 (1.0-1.7) Laboratory Tests Test 08/12/20 08:50 08/12/20 11:34 08/12/20 14:12 08/12/20 20:40 O2 Saturation 95 % (92-99) Arterial Blood pH 7.51 (7.35-7.45) Arterial Blood pCO2 at Patient Temp 36 mmHg (35-46) Arterial Blood pO2 at Patient Temp 74 mmHg (75-108) Arterial Blood HCO3 28 mmol/L (21-28) Arterial Blood Base Excess 5 mmol/L (-3-3) FiO2 40% Heparin Anti-Xa Act, Unfractionated 0.26 IU/mL (0.30-0.70) 0.26 IU/mL (0.30-0.70) Vancomycin Level Trough 12.8 mcg/mL (10.0-20.0) Vancomycin Last Dose Date 08/12/20 Vancomycin Last Dose Time 0700 Potassium Level 3.1 mmol/L (3.5-5.1) Magnesium Level 1.7 mg/dL (1.8-2.4) Test 08/13/20 04:40 White Blood Count 13.1 x10^3/uL (4.0-11.0) Red Blood Count 2.92 x10^6/uL (4.30-5.70) Hemoglobin 9.0 g/dL (13.0-17.5) Hematocrit 27.3 % (39.0-53.0) Mean Corpuscular Volume 94 fL (79-100) Mean Corpuscular Hemoglobin 31 pg (25-35) Mean Corpuscular Hemoglobin Concent 33 g/dL (31-37) Red Cell Distribution Width 15.7 % (11.5-14.5) Platelet Count 420 x10^3/uL (140-400) Heparin Anti-Xa Act, Unfractionated < 0.10 IU/mL (0.30-0.70) Sodium Level 139 mmol/L (136-145) Potassium Level 3.3 mmol/L (3.5-5.1) Chloride Level 102 mmol/L (98-107) Carbon Dioxide Level 31 mmol/L (21-32) Anion Gap 6 (6-14) Blood Urea Nitrogen 3 mg/dL (8-26) Creatinine 0.5 mg/dL (0.7-1.3) Estimated GFR (Cockcroft-Gault) 176.0 BUN/Creatinine Ratio 6 (6-20) Glucose Level 159 mg/dL (70-99) Calcium Level 8.1 mg/dL (8.5-10.1) Total Bilirubin 0.3 mg/dL (0.2-1.0) Aspartate Amino Transf (AST/SGOT) 17 U/L (15-37) Alanine Aminotransferase (ALT/SGPT) 23 U/L (16-63) Alkaline Phosphatase 151 U/L (46-116) Total Protein 6.2 g/dL (6.4-8.2) Albumin 1.6 g/dL (3.4-5.0) Albumin/Globulin Ratio 0.3 (1.0-1.7) Comments CXR 08/12 IMPRESSION: 1. Tracheostomy tube placement. 2. Stable bilateral pulmonary opacities and left pleural effusion. 3. Nasogastric tube removed. Impression . IMPRESSION: 1. Acute hypoxemic respiratory failure./ALI/ARDS due to COVID -19 2. Acute pulmonary embolism with cor pulmonale. 3. COVID-[address] chest revealing ground glass opacities. 5. Hypertension. 6. History of bronchitis. 7. Elevated troponin. 8. Acute kidney injury. 9. Leukocytosis. 10. Covid-19 positive 11. Possible loculated hydroPTX left base 12. fever ?tb Plan . Continue current ventilatory support, FiO2 40% and a PEEP of 6, Pressure support as tolerate during the day and A/C overnight, placed on pressure support of 18 this am, tolerating well Precedex if needed Status post tracheostomy 08/06 and S/P Peg tube placement 08/09 continue heparin gtt today, monitor hemoglobin reviewed chest x-ray and ABG, no changes today Follow cardiology recommendations Antibiotics per ID--AFB negative, repeat cultures negative, continues to have fevers, currently on vanco Has completed full course of remdesivir Hypokalemia per PCP Continue tube feeding for nutritional support DVT/GI prophylaxis,Protonix-- heparin gtt Discussed with RN and RT Pt. is FULL CODE critically ill Critical care time [id number] ALVIN RAMSEY MD Aug 13, 2020 08:24
--- NOTE | 2020-08-13 08:40 | PDOC ---
[employer] PROGRESS NOTE Date of Service DOS: DATE: 08/13/20 TIME: 08:39 Chief Complaint Chief Complaint A/P: Acute hypoxic respiratory failure requiring VENT SUPPORT STATUS post trach placement 08/06/2020 S/P Peg tube placement 08/09 Acute hypoxic respiratory failure/ARDS /pneumonia Bilateral perihilar and basilar opacities, progressed in the left base. 07-26 COVID-19 Subsegmental bilateral PE Sepsis NSTEMI AKA Lactic acidosis Hyponatremia, RESOLVED hgb 6.5 07-27, transfused 1 unit prbc's hypokalemia, on replacement Plan: Spontaneous breathing trial today attempt to wean to extubate Appreciate pulmonology recommendations Continue current ventilatory support, currently on 70% and PEEP of 6, avoid increasing PEEP 2/2 risk of barotrauma Follow chest x-ray and ABG, vent management as per pulmonology Heparin has been transitioned to Xarelto Solu-Medrol 40 mg every 12 hours Appreciate ID recommendationscontinue Remdesivir and empiric antibiotics IV fluids Discussed with RN and JAVIER. Antibiotics per ID-- off ABX, infectious disease following increasing leukocytosis has completed full course of remdesivir continue tube feeding for nutritional support History of Present Illness History of Present Illness Overnight Tmax 100.6F. Tires out easily on vent. 08/12/2020 No acute events overnight. Patient has T-max of 99.7. Currently on minimal vent settings.> 50% time spent in patient chart, labs, and imaging review and in discussion with RN and JAVIER 08/11/2020 No acute events overnight. Patient with T-max of 100.8 overnight. Currently on minimal vent settings. Trached and pegged. Social work following for Medicare approval.> 50% time spent in patient chart, labs, and imaging review and in discussion with RN and JAVIER 08/10/2020 no acute events overnight. Patient is on minimal vent settings. PEG tube placed yesterday. Will attempt to wean to extubate today.> 50% time spent in patient chart, labs, and imaging review and in discussion with RN and JAVIER 08/09/2020 No acute events overnight. T-max of 100.0 F. Patient is on minimal ventilatory settings.> 50% time spent in patient chart, labs, and imaging review and in discussion with RN and JAVIER 08/08/2020 Patient tolerating trach and ventilatory goldy support on 40% FiO2 and 5 of PEEP. Pending PEG tube placement tomorrow.> 50% time spent in patient chart, labs, and imaging review and in discussion with RN and SW 08/07/2020 No acute events overnight. Fever T-max of 101.1. Trach was placed yesterday. On minimal vent settings.> 50% time spent in patient chart, labs, and imaging review and in discussion with RN and SW 08/06/2020 No acute events overnight. Patient is afebrile. Currently on minimal vent settings. Pending trach today. Patient's chart, labs, images were reviewed and discussed with RN A total of 35 minutes of critical care time was spent in reviewing chart, labs, and images. Discussed with RN and SW. 08/05/2020 Patient seen and evaluated. No acute events, febrile overnight. Mechanically ventilated with FiO2 40%, PEEP 6. Plan for trach Thursday. 08/04/2020 Patient seen in [facility] ICU. Still with low-grade fevers. Mechanically ventilated, FiO2 40%, PEEP 6. No acute change, plan for trach Thursday. 08/03/2020 Patient seen in [facility]- ICU. Still with low-grade fever. He remains on vent with FiO2 100%, PEEP 12. Plan for trach on Thursday, and PEG at some point after. 08/02/2020 Patient seen and evaluated in [facility] ICU. He is febrile this morning. Still intubated mechanically ventilated with FiO2 40 %, PEEP 6. Plans for tracheostomy today. 08/01/2020 Patient seen in [facility] ICU. Patient remains slightly febrile. Mechanically ventilated, FiO2 45%, PEEP 6. Tracheostomy unable to perform yesterday, general surgery to attempt again today. Discussed with RN. 07/31/2020 Patient still spiking fevers. Patient remains on vent, FiO2 45%, PEEP 6. Tracheostomy tentatively planned for today. 07/30/2020 Patient seen in [facility] ICU. He is febrile on vent, FiO2 45%, PEEP 6. Will attempt to speak with family about decision on trach and PEG tube. Discussed with RN. t max 102 f fio2 50% 07/21/2020 Patient no acute events reported overnight. Patient continues to require a lot of support from vent. Discussed with RN 09/19/2019 Patient continues to be pretty much the same , fio2 is at 70%, heparin 07/19/2020 Patient hypotensive today, we will follow recommendations from critical critical care physician. Vent management as per is consultant, no other complaints. 07/18/2020 Patient with no acute events reported overnight, fio2 is now at 75% PEEP of 6, Vent management as per pulmonary is consultant slight increase in temperature noted over the lat 24 hours. Will continue to follow 07/17/2020 Patient with no acute events reported overnight, contineus to require an fio2 of 80%, continue with supportive measures. 07/16/2020 Patient with no acute events reported overnight, patient continues to require quite a bit of FiO2 at 80%. Vent management as per is consultant, will place a call to family members after rounding. Discussed with RN 07/15/2020 Patient seen and examined bedside in the ICU. FiO2 80% PEEP of 6.pH 7.56, PCO2 32, PO2 56, HCO3 28. Will adjust respiratory rate accordingly to correct pH.> 50% time spent in patient chart, labs, and imaging review and in discussion with RN and JAVIER 07/14/2020 Patient seen and examined bedside. FiO2 65% and PEEP of 6 on vent. ABG: pH 7.26, PCO2 77, PO2 114, HCO3 34. We will adjust respiratory rate or tidal volume to titrate pH.> 50% time spent in patient chart, labs, and imaging review and in discussion with RN and JAVIER 07/13/2020 No acute events overnight. Patient examined bedside sedated and intubated. FiO2 70% PEEP of 6. Improved ABGs.> 50% time spent in patient chart, labs, and imaging review and in discussion with RN and JAVIER 07/12/2020 Patient seen and examined in the ICU. Sedated and intubated. FiO2 65, PEEP of 8 with improved oxygenation. pH 7.4, PCO2 48, PO2 94, HCO3 30. +500 cc fluid balance.> 50% time spent in patient chart, labs, and imaging review and in discussion with RN and JAVIER 07/11/2020 Patient seen and examined bedside in the ICU. Patient continues to be intubated and sedated. FiO2 75%, PEEP of 10. pH 7.40, PCO2 44, PO2 is 135, HCO3 26. Can likely decrease FiO2 due to improved oxygenation. +173 cc in the past 24 hours 07/10/2020 Patient seen and examined bedside in ICU. Patient is intubated and sedated. FiO2 90%, PEEP of 10, respiratory rate of 30. ABG: pH is 7.41, PCO2 42, PO2 113, HCO3 26. 07/09/2020 Patient seen and examined in the ICU. Intubated and sedated. Vent settings FiO2 90%, PEEP of 10, respiratory rate of 30. 07/05: Patient seen in ICU, still intubated and sedated. COVID-19 pending. Patient remains on heparin infusion. Discussed with RN, will try to have central line placed per anesthesia. 07/06: Patient seen in ICU. Still FiO2 100% on vent and sedated. COVID-19 positive. Continue heparin infusion, Zosyn, steroids. 07/07: Covid positive patient seen in ICU. On vent with FiO2 100%, PEEP 10. Continue remdesivir, steroids, Zosyn. Continue to monitor 07/08: Patient seen in Covid ICU. Still on vent with FiO2 100%, PEEP 10. Afebrile. No acute events overnight. Continue steroids, antibiotics, and r emdesivir. Patient is 49-year-old male with past medical history of hypertension, who presents to the ED with complaints of worsening shortness of breath over the past 5 days. Associated sore throat, fatigue, and generalized weakness. Patient was reportedly tested for COVID-19 last Thursday, but he had negative test results. His symptoms acutely worsened yesterday. Upon arrival to the ER his oxygen saturation was 60% on room air. He was placed on BiPAP and admitted to the ICU. Patient was subsequently intubated due to worsening respiratory failure. Vitals/I&O Vitals/I&O: Vital Signs Date Time Temp Pulse Resp B/P (MAP) Pulse Ox O2 Delivery O2 Flow Rate FiO2 08/13/20 08:00 82 26 138/76 (96) 97 Ventilator 08/13/20 07:00 100.0 100.0 I & O 08/12/20 08/12/20 08/13/20 15:00 23:00 07:00 Intake Total 765 ml 300 ml 2814 ml Output Total 1665 ml 1255 ml 740 ml Balance -900 ml -955 ml 2074 ml Physical Exam Physical Exam: General on vent,alert HEENT normocephalic atraumatic , trach LUNGS: Coarse breath sounds anteriorly HEART: S1-S2 no murmurs ABDOMEN: mildly distended, soft bowel sounds present Fernandez in place,fecal tube in place SKIN: No generalized rash Right upper extremity PICC line removed PIVs Clean Neuro alert awake General: Other (sedated ) Lungs: Clear Labs Labs: Laboratory Tests Test 08/12/20 08:50 08/12/20 11:34 08/12/20 14:12 08/12/20 20:40 O2 Saturation 95 % (92-99) Arterial Blood pH 7.51 (7.35-7.45) Arterial Blood pCO2 at Patient Temp 36 mmHg (35-46) Arterial Blood pO2 at Patient Temp 74 mmHg (75-108) Arterial Blood HCO3 28 mmol/L (21-28) Arterial Blood Base Excess 5 mmol/L (-3-3) FiO2 40% Heparin Anti-Xa Act, Unfractionated 0.26 IU/mL (0.30-0.70) 0.26 IU/mL (0.30-0.70) Vancomycin Level Trough 12.8 mcg/mL (10.0-20.0) Vancomycin Last Dose Date 08/12/20 Vancomycin Last Dose Time 0700 Potassium Level 3.1 mmol/L (3.5-5.1) Magnesium Level 1.7 mg/dL (1.8-2.4) Test 08/13/20 04:40 White Blood Count 13.1 x10^3/uL (4.0-11.0) Red Blood Count 2.92 x10^6/uL (4.30-5.70) Hemoglobin 9.0 g/dL (13.0-17.5) Hematocrit 27.3 % (39.0-53.0) Mean Corpuscular Volume 94 fL (79-100) Mean Corpuscular Hemoglobin 31 pg (25-35) Mean Corpuscular Hemoglobin Concent 33 g/dL (31-37) Red Cell Distribution Width 15.7 % (11.5-14.5) Platelet Count 420 x10^3/uL (140-400) Heparin Anti-Xa Act, Unfractionated < 0.10 IU/mL (0.30-0.70) Sodium Level 139 mmol/L (136-145) Potassium Level 3.3 mmol/L (3.5-5.1) Chloride Level 102 mmol/L (98-107) Carbon Dioxide Level 31 mmol/L (21-32) Anion Gap 6 (6-14) Blood Urea Nitrogen 3 mg/dL (8-26) Creatinine 0.5 mg/dL (0.7-1.3) Estimated GFR (Cockcroft-Gault) 176.0 BUN/Creatinine Ratio 6 (6-20) Glucose Level 159 mg/dL (70-99) Calcium Level 8.1 mg/dL (8.5-10.1) Total Bilirubin 0.3 mg/dL (0.2-1.0) Aspartate Amino Transf (AST/SGOT) 17 U/L (15-37) Alanine Aminotransferase (ALT/SGPT) 23 U/L (16-63) Alkaline Phosphatase 151 U/L (46-116) Total Protein 6.2 g/dL (6.4-8.2) Albumin 1.6 g/dL (3.4-5.0) Albumin/Globulin Ratio 0.3 (1.0-1.7) Assessment and Plan Assessmemt and Plan Problems Medical Problems: (1) Acute respiratory failure with hypoxia Status: Acute (2) PRIYA (acute kidney injury) Status: Acute (3) Elevated troponin I level Status: Acute (4) Pulmonary emboli Status: Acute (5) Suspected COVID-19 virus infection Status: Acute Comment Review of Relevant I have reviewed the following items trino (where applicable) has been applied. Medications: Current Medications Medications (Trade) Dose Ordered Sig/Natalee Route PRN Reason Start Time Stop Time Status Last Admin Dose Admin Vancomycin HCl (Vancomycin Trough Level) 1 each 1X ONCE 08/12/20 14:30 08/12/20 14:31 IN 08/12/20 14:30 Vancomycin HCl 1.75 gm/Sodium Chloride 500 ml @ 250 mls/hr Q8H IV 08/12/20 23:00 08/13/20 06:32 Potassium Chloride/Water 100 ml @ 100 mls/hr Q1H IV 08/12/20 22:00 08/13/20 01:59 IN 08/13/20 02:02 Prochlorperazine Edisylate (Compazine) 10 mg PRN Q6HRS PRN IV NAUSEA/VOMITING 1ST CHOICE 08/12/20 21:30 08/12/20 21:55 Potassium Chloride/Water 100 ml @ 100 mls/hr Q1H IV 08/13/20 02:00 08/13/20 05:59 DC 08/13/20 06:17 Magnesium Sulfate 100 ml @ 50 mls/hr DAILY IV 08/13/20 00:00 08/16/20 00:00 08/13/20 02:02 Justifications for Admission Other Justification NEIL PATEL MD Aug 13, 2020 08:40
[2020-08-13] MEDS: DEXMEDETOMIDINE 400 MCG in IV NORMAL SALINE 100ML 96 ML IV PRN ×2 (08:53→20:05)
[2020-08-13] MEDS: VANCOMYCIN PER PHARMACY MC PRN ×2 (09:08→15:09)
[2020-08-13] MEDS: ANTI-COAG MONITOR BY PHARMACY. MC PRN (09:14)
[2020-08-13] MEDS: CHOLECALCIFEROL (VITAMIN D3) 5,000 UNIT CAPSULE PO SCH (09:47)
[2020-08-13] MEDS: ZINC SULFATE 220 MG CAPSULE. PO SCH (09:47)
[2020-08-13] MEDS: PANTOPRAZOLE IV PUSH 40 MG VIAL. IVP SCH (09:47)
[2020-08-13] MEDS: HEPARIN 25,000UTS/250ML PREMIX 250 ML IV PRN ×2 (11:11→23:40)
--- NOTE | 2020-08-13 11:30 | PDOC ---
Date of Service: DATE: 08/13/20 TIME: 11:25 Objective: Objective: D/w nurse - no issues w/ PEG. Has rectal tube, sending for C Diff. Vital Signs: Vital Signs Date Time Temp Pulse Resp B/P (MAP) Pulse Ox O2 Delivery O2 Flow Rate FiO2 08/13/20 09:00 78 34 125/65 (85) 96 Ventilator 08/13/20 07:00 100.0 100.0 Labs: Laboratory Tests Test 08/12/20 11:34 08/12/20 14:12 08/12/20 20:40 08/13/20 04:40 Heparin Anti-Xa Act, Unfractionated 0.26 IU/mL 0.26 IU/mL < 0.10 IU/mL Vancomycin Level Trough 12.8 mcg/mL Vancomycin Last Dose Date 08/12/20 Vancomycin Last Dose Time 0700 Potassium Level 3.1 mmol/L 3.3 mmol/L Magnesium Level 1.7 mg/dL White Blood Count 13.1 x10^3/uL Red Blood Count 2.92 x10^6/uL Hemoglobin 9.0 g/dL Hematocrit 27.3 % Mean Corpuscular Volume 94 fL Mean Corpuscular Hemoglobin 31 pg Mean Corpuscular Hemoglobin Concent 33 g/dL Red Cell Distribution Width 15.7 % Platelet Count 420 x10^3/uL Sodium Level 139 mmol/L Chloride Level 102 mmol/L Carbon Dioxide Level 31 mmol/L Anion Gap 6 Blood Urea Nitrogen 3 mg/dL Creatinine 0.5 mg/dL Estimated GFR (Cockcroft-Gault) 176.0 BUN/Creatinine Ratio 6 Glucose Level 159 mg/dL Calcium Level 8.1 mg/dL Total Bilirubin 0.3 mg/dL Aspartate Amino Transf (AST/SGOT) 17 U/L Alanine Aminotransferase (ALT/SGPT) 23 U/L Alkaline Phosphatase 151 U/L Total Protein 6.2 g/dL Albumin 1.6 g/dL Albumin/Globulin Ratio 0.3 BLOOD CULTURE LC Preliminary Preliminary FINAL ID= [[id number]] Imaging: CXR 08/12 IMPRESSION: 1. Tracheostomy tube placement. 2. Stable bilateral pulmonary opacities and left pleural effusion. 3. Nasogastric tube removed. PE: GEN: NAD HEENT: trach/vent HEART: RRR ABD: soft, PEG in pace, rectal tube w/ light brown liquid stool NEURO/PSYCH: awakens easily A/P: Resp failure s/p tracheostomy and PEG Diarrhea Fever, bacteremia -- PEG functioning. Plans to check C Diff. Justicifation of Admission Dx: Justifications for Admission: Justification of Admission Dx: Yes LYNETTE CELIS Aug 13, 2020 11:30
[2020-08-13 12:03] LABS: BASO # 0.1 x10^3/uL (0.0-0.2); BASO % 1 % (0-3); EOS % 0 % (0-3); HEMATOCRIT 26.9 % (39.0-53.0); HEMOGLOBIN 9.1 g/dL (13.0-17.5); LYMPH # 1.5 x10^3/uL (1.0-4.8); LYMPH % 13 % (24-48); MEAN CORPUSCULAR HEMOGLOBIN 32 pg (25-35); MEAN CORPUSCULAR HGB CONC 34 g/dL (31-37); MEAN CORPUSCULAR VOLUME 94 fL (79-100); MONO # 1.6 x10^3/uL (0.0-1.1); MONO % 14 % (0-9); NEUT # 8.3 x10^3/uL (1.8-7.7); NEUT % 72 % (31-73); PLATELET COUNT 386 x10^3/uL (140-400); RED BLOOD COUNT 2.87 x10^6/uL (4.30-5.70); RED CELL DISTRIBUTION WIDTH 16.4 % (11.5-14.5); WHITE BLOOD COUNT 11.6 x10^3/uL (4.0-11.0)
--- NOTE | 2020-08-13 12:26 | NUR ---
pt was placed on spont breathing trial at 0855, switched back to a/c at 1225 d/t increased respirations and hr, as well as wob, pt resp rate was 46, hr 102
--- NOTE | 2020-08-13 13:57 | RAD ---
EXAM: XR ABDOMEN 1V 08/13/2020 8:51 AM CLINICAL INDICATION: Distention, evaluate for ileus COMPARISON: CT abdomen pelvis 07/29/2020 TECHNIQUE: AP supine view the abdomen FINDINGS: A gastrostomy tube is noted. The stomach is very distended with gas. There is scattered ga s in normal caliber small bowel and colon in the lower abdomen. No acute osseous abnormality. IMPRESSION: New gastrostomy tube with gaseous distention of stomach. No evidence of bowel obstructio n. Electronically signed by: Sharonda Adams MD (08/13/2020 1:55 PM) [id number]
[2020-08-13 14:50] LABS: VANC TR 19.6 mcg/mL (10.0-20.0)
--- NOTE | 2020-08-13 15:11 | NUR ---
Pharmacy Vancomycin Dosing Note S: Consulted to monitor and dose vancomycin started 07/25/20. O: ABHISHEK SKINNER is a 49 year old M with Bacteremia Other Antibiotics: NONE LABS: Last BUN: 3 Last Creatinine: 0.5 Creatinine Clearance: >100 mL/min Last WBC: 13.1 Last Procalcitonin: Tmax (past 24 hours): 100.4 Microbiology: BLOOD CX (08/06): [facility] I/O: [id number] Drug Levels: Last Trough level: 19.6 on 08/13/20 at 1410 Last dose given 08/13/20 at 0632 Vancomycin Dosing: Dosing Weight: Actual Target Trough: 15-20 A: Based on: trough P: 1. Contine Vancomycin 1750 mg IV q8h 2. Follow up Trough level in 5 days 3. Pharmacy will continue to monitor, follow and adjust therapy as needed. Mai Cortes RPH, 08/13/20 [id number]
--- NOTE | 2020-08-13 15:12 | NUR ---
SS following up with discharge planning. SS reviewed pt chart and discussed with pt RN. Pt is currently on the vent at 40%. COVID19 negative. Self pay. Trach and peg in place. Off sedation. Not ready to come off vent at this time. SS contacted pt's niece and discussed social situation. Pt is not a citizen. Per pt's niece, pt has no financial resources to pay for respiratory or feeding tube equipment or formula. Pt's niece reported that they completed application with the hospital for financial assistance with hospital bill. SS will continue to follow for discharge planning.
[2020-08-13 23:47] LABS: POTASSIUM 3.7 mmol/L (3.5-5.1)
[2020-08-14] VITALS (24 sets, daily range): BP systolic 111–145; BP diastolic 58–85
[2020-08-14] MEDS: ACETAMINOPHEN 650 MG/20.3 ML SOLUTION. PEG PRN ×2 (02:10→20:31)
--- NOTE | 2020-08-14 05:10 | RAD ---
Single view chest dated 08/14/2020. Comparison made to 08/12/2020. CLINICAL INDICATION: Respiratory failure. FINDINGS: single semiupright portable exam performed. Heart and mediastinal contours are stable. Tracheostomy t ube in place, unchanged. There is widespread bilateral airspace disease, similar given differences in technique. There is a small to moderate size left pleural effusion with small pleural effusion on th e right, unchanged. No pneumothorax. IMPRESSION: Bilateral airspace disease and pleural effusions, not significantly changed. Electronically signed by: Jorge Brown MD (08/14/2020 5:07 AM) ERIC
[2020-08-14] MEDS: VANCOMYCIN 1.75 GM in IV NORMAL SALINE 500ML BAG 500 ML IV SCH (07:04)
[2020-08-14] MEDS: DEXMEDETOMIDINE 400 MCG in IV NORMAL SALINE 100ML 96 ML IV PRN ×3 (07:05→21:32)
[2020-08-14 07:09] LABS: BASO # 0.1 x10^3/uL (0.0-0.2); BASO % 1 % (0-3); EOS # 0.1 x10^3/uL (0.0-0.7); EOS % 1 % (0-3); HEMATOCRIT 25.7 % (39.0-53.0); HEMOGLOBIN 8.4 g/dL (13.0-17.5); LYMPH # 1.8 x10^3/uL (1.0-4.8); LYMPH % 15 % (24-48); MEAN CORPUSCULAR HEMOGLOBIN 31 pg (25-35); MEAN CORPUSCULAR HGB CONC 33 g/dL (31-37); MEAN CORPUSCULAR VOLUME 94 fL (79-100); MONO # 1.7 x10^3/uL (0.0-1.1); MONO % 14 % (0-9); NEUT # 8.2 x10^3/uL (1.8-7.7); NEUT % 69 % (31-73); PLATELET COUNT 333 x10^3/uL (140-400); RED BLOOD COUNT 2.75 x10^6/uL (4.30-5.70); RED CELL DISTRIBUTION WIDTH 16.5 % (11.5-14.5); WHITE BLOOD COUNT 11.9 x10^3/uL (4.0-11.0)
[2020-08-14 07:35] LABS: ALBUMIN 1.5 g/dL (3.4-5.0); ALBUMIN/GLOBULIN RATIO 0.3 (1.0-1.7); CREATININE 0.7 mg/dL (0.7-1.3); GFR 119.4; POTASSIUM 3.5 mmol/L (3.5-5.1); TOTAL BILIRUBIN 0.2 mg/dL (0.2-1.0)
[2020-08-14] MEDS: MAGNESIUM SULFATE 4GM 100 ML IV SCH (07:43)
[2020-08-14] MEDS ORDERED: DEXTROSE 50% 25 GM / 50ML DISP.SYRIN. IV PRN (08:00)
[2020-08-14] MEDS: ZINC SULFATE 220 MG CAPSULE. PO SCH (08:02)
[2020-08-14] MEDS: PANTOPRAZOLE IV PUSH 40 MG VIAL. IVP SCH (08:02)
[2020-08-14] MEDS: CHOLECALCIFEROL (VITAMIN D3) 5,000 UNIT CAPSULE PO SCH (08:02)
--- NOTE | 2020-08-14 08:03 | PDOC ---
[employer] PROGRESS NOTE Date of Service DOS: DATE: 08/14/20 TIME: 08:03 Chief Complaint Chief Complaint A/P: Acute hypoxic respiratory failure requiring VENT SUPPORT STATUS post trach placement 08/06/2020 S/P Peg tube placement 08/09 Acute hypoxic respiratory failure/ARDS /pneumonia Bilateral perihilar and basilar opacities, progressed in the left base. 07-26 COVID-19 Subsegmental bilateral PE Sepsis NSTEMI AKA Lactic acidosis Hyponatremia, RESOLVED hgb 6.5 07-27, transfused 1 unit prbc's hypokalemia, on replacement Plan: Spontaneous breathing trial today attempt to wean to extubate Appreciate pulmonology recommendations Continue current ventilatory support, currently on 70% and PEEP of 6, avoid increasing PEEP 2/2 risk of barotrauma Follow chest x-ray and ABG, vent management as per pulmonology Heparin has been transitioned to Xarelto Solu-Medrol 40 mg every 12 hours Appreciate ID recommendationscontinue Remdesivir and empiric antibiotics IV fluids Discussed with RN and JAVIER. Antibiotics per ID-- off ABX, infectious disease following increasing leukocytosis has completed full course of remdesivir continue tube feeding for nutritional support History of Present Illness History of Present Illness 08/12: No acute events overnight. Patient has T-max of 99.7. Currently on minimal vent settings.> 50% time spent in patient chart, labs, and imaging review and in discussion with RN and JAVIER 08/13: Overnight Tmax 100.6F. Tires out easily on vent. 101.5 F overnight. Stool sample on urine sample taken today. No growth on cultures as of yet. Still requiring vent support via his trach. No residuals on tube feeds. 08/11/2020 No acute events overnight. Patient with T-max of 100.8 overnight. Currently on minimal vent settings. Trached and pegged. Social work following for Medicare approval.> 50% time spent in patient chart, labs, and imaging review and in discussion with RN and JAVIER 08/10/2020 no acute events overnight. Patient is on minimal vent settings. PEG tube placed yesterday. Will attempt to wean to extubate today.> 50% time spent in patient chart, labs, and imaging review and in discussion with RN and JAVIER 08/09/2020 No acute events overnight. T-max of 100.0 F. Patient is on minimal ventilatory settings.> 50% time spent in patient chart, labs, and imaging review and in discussion with RN and SW 08/08/2020 Patient tolerating trach and ventilatory goldy support on 40% FiO2 and 5 of PEEP. Pending PEG tube placement tomorrow.> 50% time spent in patient chart, labs, and imaging review and in discussion with RN and JAVIER 08/07/2020 No acute events overnight. Fever T-max of 101.1. Trach was placed yesterday. On minimal vent settings.> 50% time spent in patient chart, labs, and imaging review and in discussion with RN and SW 08/06/2020 No acute events overnight. Patient is afebrile. Currently on minimal vent settings. Pending trach today. Patient's chart, labs, images were reviewed and discussed with RN A total of 35 minutes of critical care time was spent in reviewing chart, labs, and images. Discussed with RN and JAVIER. 08/05/2020 Patient seen and evaluated. No acute events, febrile overnight. Mechanically ventilated with FiO2 40%, PEEP 6. Plan for trach Thursday. 08/04/2020 Patient seen in [facility] ICU. Still with low-grade fevers. Mechanically ventilated, FiO2 40%, PEEP 6. No acute change, plan for trach Thursday. 08/03/2020 Patient seen in [facility]- ICU. Still with low-grade fever. He remains on vent with FiO2 100%, PEEP 12. Plan for trach on Thursday, and PEG at some point after. 08/02/2020 Patient seen and evaluated in [facility] ICU. He is febrile this morning. Still intubated mechanically ventilated with FiO2 40 %, PEEP 6. Plans for tracheostomy today. 08/01/2020 Patient seen in [facility] ICU. Patient remains slightly febrile. Mechanically ventilated, FiO2 45%, PEEP 6. Tracheostomy unable to perform yesterday, general surgery to attempt again today. Discussed with RN. 07/31/2020 Patient still spiking fevers. Patient remains on vent, FiO2 45%, PEEP 6. Tracheostomy tentatively planned for today. 07/30/2020 Patient seen in [facility]- ICU. He is febrile on vent, FiO2 45%, PEEP 6. Will attempt to speak with family about decision on trach and PEG tube. Discussed with RN. t max 102 f fio2 50% 07/21/2020 Patient no acute events reported overnight. Patient continues to require a lot of support from vent. Discussed with RN 09/19/2019 Patient continues to be pretty much the same , fio2 is at 70%, heparin 07/19/2020 Patient hypotensive today, we will follow recommendations from critical child care associate teacher. Vent management as per custom decorating consultant, no other complaints. 07/18/2020 Patient with no acute events reported overnight, fio2 is now at 75% PEEP of 6, Vent management as per pulmonary custom decorating consultant slight increase in temperature noted over the lat 24 hours. Will continue to follow 07/17/2020 Patient with no acute events reported overnight, contineus to require an fio2 of 80%, continue with supportive measures. 07/16/2020 Patient with no acute events reported overnight, patient continues to require quite a bit of FiO2 at 80%. Vent management as per custom decorating consultant, will place a call to family members after rounding. Discussed with RN 07/15/2020 Patient seen and examined bedside in the ICU. FiO2 80% PEEP of 6.pH 7.56, PCO2 32, PO2 56, HCO3 28. Will adjust respiratory rate accordingly to correct pH.> 50% time spent in patient chart, labs, and imaging review and in discussion with RN and JAVIER 07/14/2020 Patient seen and examined bedside. FiO2 65% and PEEP of 6 on vent. ABG: pH 7.26, PCO2 77, PO2 114, HCO3 34. We will adjust respiratory rate or tidal volume to titrate pH.> 50% time spent in patient chart, labs, and imaging review and in discussion with RN and JAVIER 07/13/2020 No acute events overnight. Patient examined bedside sedated and intubated. FiO2 70% PEEP of 6. Improved ABGs.> 50% time spent in patient chart, labs, and imaging review and in discussion with RN and JAVIER 07/12/2020 Patient seen and examined in the ICU. Sedated and intubated. FiO2 65, PEEP of 8 with improved oxygenation. pH 7.4, PCO2 48, PO2 94, HCO3 30. +500 cc fluid balance.> 50% time spent in patient chart, labs, and imaging review and in discussion with RN and JAVIER 07/11/2020 Patient seen and examined bedside in the ICU. Patient continues to be intubated and sedated. FiO2 75%, PEEP of 10. pH 7.40, PCO2 44, PO2 is 135, HCO3 26. Can likely decrease FiO2 due to improved oxygenation. +173 cc in the past 24 hours 07/10/2020 Patient seen and examined bedside in ICU. Patient is intubated and sedated. FiO2 90%, PEEP of 10, respiratory rate of 30. ABG: pH is 7.41, PCO2 42, PO2 113, HCO3 26. 07/09/2020 Patient seen and examined in the ICU. Intubated and sedated. Vent settings FiO2 90%, PEEP of 10, respiratory rate of 30. 07/05: Patient seen in ICU, still intubated and sedated. COVID-19 pending. Patient remains on heparin infusion. Discussed with RN, will try to have central line placed per anesthesia. 07/06: Patient seen in ICU. Still FiO2 100% on vent and sedated. COVID-19 positive. Continue heparin infusion, Zosyn, steroids. 07/07: Covid positive patient seen in ICU. On vent with FiO2 100%, PEEP 10. Continue remdesivir, steroids, Zosyn. Continue to monitor 07/08: Patient seen in Covid ICU. Still on vent with FiO2 100%, PEEP 10. Afebrile. No acute events overnight. Continue steroids, antibiotics, and remdesivir. Patient is 49-year-old male with past medical history of hypertension, who presents to the ED with complaints of worsening shortness of breath over the past 5 days. Associated sore throat, fatigue, and generalized weakness. Patient was reportedly tested for COVID-19 last Thursday, but he had negative test results. His symptoms acutely worsened yesterday. Upon arrival to the ER his oxygen saturation was 60% on room air. He was placed on BiPAP and admitted to the ICU. Patient was subsequently intubated due to worsening respiratory failure. Vitals/I&O Vitals/I&O: Vital Signs Date Time Temp Pulse Resp B/P (MAP) Pulse Ox O2 Delivery O2 Flow Rate FiO2 08/14/20 07:48 100 Ventilator 08/14/20 07:00 67 32 138/64 (88) 08/14/20 04:09 100.8 100.8 I & O 08/13/20 08/13/20 08/14/20 15:00 23:00 07:00 Intake Total 300 ml 2216 ml 1613 ml Output Total 530 ml 785 ml 425 ml Balance -230 ml 1431 ml 1188 ml Physical Exam Physical Exam: General on vent,alert HEENT normocephalic atraumatic , trach LUNGS: Coarse breath sounds anteriorly HEART: S1-S2 no murmurs ABDOMEN: mildly distended, soft bowel sounds present Fernandez in place,fecal tube in place SKIN: No generalized rash Right upper extremity PICC line removed PIVs Clean Neuro alert awake General: Other (sedated ) Lungs: Clear Labs Labs: Laboratory Tests Test 08/13/20 11:35 08/13/20 14:10 08/13/20 19:20 08/13/20 23:35 White Blood Count 11.6 x10^3/uL (4.0-11.0) Red Blood Count 2.87 x10^6/uL (4.30-5.70) Hemoglobin 9.1 g/dL (13.0-17.5) Hematocrit 26.9 % (39.0-53.0) Mean Corpuscular Volume 94 fL (79-100) Mean Corpuscular Hemoglobin 32 pg (25-35) Mean Corpuscular Hemoglobin Concent 34 g/dL (31-37) Red Cell Distribution Width 16.4 % (11.5-14.5) Platelet Count 386 x10^3/uL (140-400) Neutrophils (%) (Auto) 72 % (31-73) Lymphocytes (%) (Auto) 13 % (24-48) Monocytes (%) (Auto) 14 % (0-9) Eosinophils (%) (Auto) 0 % (0-3) Basophils (%) (Auto) 1 % (0-3) Neutrophils # (Auto) 8.3 x10^3/uL (1.8-7.7) Lymphocytes # (Auto) 1.5 x10^3/uL (1.0-4.8) Monocytes # (Auto) 1.6 x10^3/uL (0.0-1.1) Eosinophils # (Auto) 0.0 x10^3/uL (0.0-0.7) Basophils # (Auto) 0.1 x10^3/uL (0.0-0.2) Heparin Anti-Xa Act, Unfractionated 0.43 IU/mL (0.30-0.70) 0.45 IU/mL (0.30-0.70) Potassium Level 3.4 mmol/L (3.5-5.1) 3.7 mmol/L (3.5-5.1) Vancomycin Level Trough 19.6 mcg/mL (10.0-20.0) Vancomycin Last Dose Date Unk Vancomycin Last Dose Time Unk Magnesium Level 2.0 mg/dL (1.8-2.4) Test 08/14/20 06:30 White Blood Count 11.9 x10^3/uL (4.0-11.0) Red Blood Count 2.75 x10^6/uL (4.30-5.70) Hemoglobin 8.4 g/dL (13.0-17.5) Hematocrit 25.7 % (39.0-53.0) Mean Corpuscular Volume 94 fL (79-100) Mean Corpuscular Hemoglobin 31 pg (25-35) Mean Corpuscular Hemoglobin Concent 33 g/dL (31-37) Red Cell Distribution Width 16.5 % (11.5-14.5) Platelet Count 333 x10^3/uL (140-400) Neutrophils (%) (Auto) 69 % (31-73) Lymphocytes (%) (Auto) 15 % (24-48) Monocytes (%) (Auto) 14 % (0-9) Eosinophils (%) (Auto) 1 % (0-3) Basophils (%) (Auto) 1 % (0-3) Neutrophils # (Auto) 8.2 x10^3/uL (1.8-7.7) Lymphocytes # (Auto) 1.8 x10^3/uL (1.0-4.8) Monocytes # (Auto) 1.7 x10^3/uL (0.0-1.1) Eosinophils # (Auto) 0.1 x10^3/uL (0.0-0.7) Basophils # (Auto) 0.1 x10^3/uL (0.0-0.2) Sodium Level 137 mmol/L (136-145) Potassium Level 3.5 mmol/L (3.5-5.1) Chloride Level 102 mmol/L (98-107) Carbon Dioxide Level 30 mmol/L (21-32) Anion Gap 5 (6-14) Blood Urea Nitrogen 6 mg/dL (8-26) Creatinine 0.7 mg/dL (0.7-1.3) Estimated GFR (Cockcroft-Gault) 119.4 BUN/Creatinine Ratio 9 (6-20) Glucose Level 172 mg/dL (70-99) Calcium Level 8.0 mg/dL (8.5-10.1) Total Bilirubin 0.2 mg/dL (0.2-1.0) Aspartate Amino Transf (AST/SGOT) 18 U/L (15-37) Alanine Aminotransferase (ALT/SGPT) 23 U/L (16-63) Alkaline Phosphatase 123 U/L (46-116) Total Protein 6.0 g/dL (6.4-8.2) Albumin 1.5 g/dL (3.4-5.0) Albumin/Globulin Ratio 0.3 (1.0-1.7) Assessment and Plan Assessmemt and Plan Problems Medical Problems: (1) Acute respiratory failure with hypoxia Status: Acute (2) PRIYA (acute kidney injury) Status: Acute (3) Elevated troponin I level Status: Acute (4) Pulmonary emboli Status: Acute (5) Suspected COVID-19 virus infection Status: Acute Comment Review of Relevant I have reviewed the following items trino (where applicable) has been applied. Medications: Current Medications Medications (Trade) Dose Ordered Sig/Natalee Route PRN Reason Start Time Stop Time Status Last Admin Dose Admin Potassium Chloride/Water 100 ml @ 100 mls/hr Q1H IV 08/13/20 13:00 08/13/20 16:59 DC 08/13/20 18:10 Justifications for Admission Other Justification NEIL PATEL MD Aug 14, 2020 08:03
--- NOTE | 2020-08-14 08:03 | PDOC ---
Infectious Disease Note Subjective: Subjective Patient with trach on vent Febrile at 101 this am Vital Signs: Vital Signs Vital Signs Date Time Temp Pulse Resp B/P (MAP) Pulse Ox O2 Delivery O2 Flow Rate FiO2 08/14/20 07:48 100 Ventilator 08/14/20 07:00 67 32 138/64 (88) 08/14/20 04:09 100.8 100.8 Physical Exam: PHYSICAL EXAM General on vent,alert HEENT normocephalic atraumatic , trach LUNGS: Coarse breath sounds anteriorly HEART: S1-S2 no murmurs ABDOMEN: mildly distended, soft bowel sounds present Fernandez in place,fecal tube in place SKIN: No generalized rash Right upper extremity PICC line removed PIVs Clean Neuro alert awake Medications: Inpatient Meds: Current Medications Medications (Trade) Dose Ordered Sig/Natalee Start Time Stop Time Status Last Admin Dose Admin Acetaminophen (Tylenol Supp) 650 mg PRN Q6HRS PRN 08/06/20 20:45 08/07/20 19:28 650 MG Acetaminophen (Tylenol) 650 mg PRN Q6HRS PRN 07/12/20 12:00 08/14/20 02:10 650 MG Apixaban (Eliquis) 5 mg BID 07/23/20 09:00 07/27/20 12:19 DC 07/26/20 20:31 5 MG Ascorbic Acid (Vitamin C) 500 mg Q6HRS 07/04/20 18:00 08/05/20 08:39 DC 08/05/20 06:07 500 MG Azithromycin (Zithromax) 500 mg 1X ONCE 07/03/20 19:15 07/03/20 19:19 DC 07/03/20 20:11 500 MG Bupivacaine HCl/ Epinephrine Bitart (Sensorcain-Epi 0.5%-1:039180 Mpf) 30 ml 1X ONCE 08/06/20 06:30 08/06/20 06:31 DC 08/06/20 15:15 1 ML Cefazolin Sodium/ Dextrose 50 ml @ 100 mls/hr 1X ONCE 08/09/20 11:00 08/09/20 11:29 DC 08/09/20 11:04 100 MLS/HR Ceftriaxone Sodium (Rocephin) 1 gm 1X ONCE 07/03/20 19:15 07/03/20 19:19 DC 11/10/20 20:11 1 GM Cellulose (Surgicel Fibrillar 1x2) 1 each STK-MED ONCE 07/31/20 13:08 07/31/20 13:08 DC Cellulose (Surgicel Hemostat 4x8) 1 each STK-MED ONCE 08/06/20 14:10 08/06/20 14:11 DC Daptomycin 470 mg/ Sodium Chloride 50 ml @ 100 mls/hr Q24H 08/01/20 09:00 08/05/20 11:20 DC 08/05/20 09:24 100 MLS/HR Dexmedetomidine HCl 400 mcg/ Sodium Chloride 100 ml @ 0 mls/hr CONT PRN 08/11/20 10:00 08/14/20 07:05 10.3 MLS/HR Dextrose (Dextrose 50%-Water Syringe) 12.5 gm PRN Q15MIN PRN 07/05/20 14:15 Enoxaparin Sodium (Lovenox 150mg Syringe) 150 mg 1X ONCE 07/03/20 23:00 07/03/20 23:01 DC 07/03/20 22:45 150 MG Etomidate (Amidate) 10 mg 1X ONCE 07/04/20 09:30 07/04/20 09:31 DC 07/04/20 09:37 10 MG Fentanyl Citrate (Fentanyl 2ml Vial) 100 mcg STK-MED ONCE 08/06/20 11:03 08/06/20 11:03 DC Furosemide (Lasix) 20 mg 1X ONCE 07/29/20 06:30 07/29/20 06:31 DC 07/29/20 06:35 20 MG Heparin Sodium (Porcine) (Heparin Sodium) 1,250 unit PRN Q6HRS PRN 08/11/20 14:30 08/12/20 21:53 1,250 UNIT Heparin Sodium/ Dextrose 250 ml @ 0 mls/hr CONT PRN 08/11/20 14:30 08/13/20 23:40 23.8 MLS/HR Hydromorphone HCl (Dilaudid) 0.5 mg PRN Q10MIN PRN 08/06/20 07:00 08/07/20 06:59 DC Info (Anti-Coagulation Monitoring By Pharmacy) 1 each PRN DAILY PRN 07/16/20 08:15 08/13/20 09:14 1 EACH Info (CONTRAST GIVEN -- Rx MONITORING) 1 each PRN DAILY PRN 07/03/20 20:45 07/05/20 20:44 DC Info (Icu Electrolyte Protocol) 1 ea CONT PRN PRN 07/24/20 15:45 Insulin Human Lispro (HumaLOG) 0-9 UNITS [id number] 07/27/20 18:00 08/01/20 17:17 DC 07/27/20 18:17 4 UNITS Iohexol (Omnipaque 350 Mg/ml) 90 ml 1X ONCE 07/03/20 20:45 07/03/20 20:46 DC 07/03/20 21:00 90 ML Levofloxacin/ Dextrose 150 ml @ 100 mls/hr Q24H 08/02/20 09:00 08/05/20 11:20 DC 08/05/20 07:16 100 MLS/HR Lidocaine HCl (Xylocaine-Mpf 1% 2ml Vial) 2 ml PRN 1X PRN 08/06/20 07:00 08/07/20 06:59 DC Linezolid/Dextrose 300 ml @ 300 mls/hr Q12HR 07/27/20 12:30 07/31/20 07:36 DC 07/30/20 21:47 300 MLS/HR Lorazepam (Ativan Inj) 2 mg PRN Q1HR PRN 07/21/20 12:30 07/24/20 06:51 2 MG Magnesium Sulfate 100 ml @ 50 mls/hr DAILY 08/13/20 00:00 08/16/20 00:00 08/13/20 02:02 50 MLS/HR Meclizine HCl (Antivert) 25 mg PRN DAILY PRN 08/12/20 23:00 Meropenem 500 mg/ Sodium Chloride 50 ml @ 100 mls/hr Q6HRS 07/26/20 12:00 08/02/20 07:46 DC 08/02/20 06:02 100 MLS/HR Methylprednisolone Sodium Succinate (SOLU-Medrol 40MG VIAL) 40 mg DAILY 07/21/20 09:00 07/22/20 09:36 DC 07/22/20 09:08 40 MG Midazolam HCl (Versed) 5 mg STK-MED ONCE 07/04/20 09:21 07/04/20 09:21 DC Morphine Sulfate (Morphine Sulfate) 1 mg PRN Q10MIN PRN 08/06/20 07:00 08/07/20 06:59 DC Multi-Ingred Cream/Lotion/Oil/ Oint (Artificial Tears Eye Ointment) 1 wenceslao PRN Q1HR PRN 07/18/20 10:45 07/27/20 17:19 1 WENCESLAO Norepinephrine Bitartrate 8 mg/ Dextrose 258 ml @ 16.061 mls/ hr CONT PRN 07/04/20 13:15 07/18/20 11:01 DC 07/05/20 00:33 28.909 MLS/HR Ondansetron HCl (Zofran) 4 mg PRN Q6HRS PRN 08/06/20 07:00 08/07/20 06:59 DC Pantoprazole Sodium (PROTONIX VIAL for IV PUSH) 40 mg DAILYAC 07/04/20 12:30 08/13/20 09:47 40 MG Piperacillin Sod/ Tazobactam Sod (Zosyn Per Pharmacy) 1 each PRN DAILY PRN 07/04/20 12:00 07/18/20 07:46 DC Piperacillin Sod/ Tazobactam Sod 3.375 gm/Sodium Chloride 50 ml @ 100 mls/hr Q6HRS 07/04/20 12:00 07/17/20 11:11 DC 07/17/20 05:10 100 MLS/HR Piperacillin Sod/ Tazobactam Sod 4.5 gm/Sodium Chloride 100 ml @ 200 mls/hr Q6HRS 07/24/20 12:00 07/26/20 10:53 DC 07/26/20 05:36 200 MLS/HR Potassium Bicarbonate (Potassium Effervescent Tablet) 40 meq Q2H 08/11/20 12:45 08/11/20 14:46 DC 08/11/20 14:58 40 MEQ Potassium Chloride/Water 100 ml @ 100 mls/hr Q1H 08/13/20 13:00 08/13/20 16:59 DC 08/13/20 18:10 100 MLS/HR Potassium Phosphate 13.6 mmol/Sodium Chloride 254.5333 ml @ 62.5 mls/hr Q4H 07/24/20 15:30 07/25/20 03:29 UNV Prochlorperazine Edisylate (Compazine) 10 mg PRN Q6HRS PRN 08/12/20 21:30 08/12/20 21:55 10 MG Propofol 100 ml @ 0 mls/hr CONT PRN 07/04/20 09:15 08/11/20 06:42 14.9 MLS/HR Remdesivir 100 mg/ Sodium Chloride 230 ml @ 460 mls/hr Q24H 07/07/20 14:30 07/10/20 14:59 DC 07/10/20 13:59 460 MLS/HR Remdesivir 200 mg/ Sodium Chloride 210 ml @ 210 mls/hr 1X ONCE 07/06/20 14:30 07/06/20 15:29 DC 07/06/20 14:51 210 MLS/HR Ringer's Solution 1,000 ml @ 30 mls/hr Q24H 08/09/20 06:00 08/09/20 17:59 DC 08/09/20 06:11 30 MLS/HR Rocuronium [place] (Zemuron) 50 mg STK-MED ONCE 08/06/20 15:19 08/06/20 15:19 DC Sevoflurane (Ultane) 30 ml STK-MED ONCE 08/06/20 15:18 08/06/20 15:19 DC Sodium Chloride 1,000 ml @ 100 mls/hr Q10H 08/07/20 12:00 08/12/20 10:50 DC 08/11/20 16:30 100 MLS/HR Sodium Phosphate 20 mmol/Sodium Chloride 256.6667 ml @ 62.5 mls/hr 1X ONCE 07/24/20 15:30 07/24/20 19:36 UNV Sodium Phosphate 30 mmol/Sodium Chloride 260 ml @ 62.5 mls/hr 1X ONCE 07/24/20 15:30 07/24/20 19:39 UNV Succinylcholine Chloride (Anectine) 200 mg 1X ONCE 07/04/20 09:30 07/04/20 09:31 DC 07/04/20 09:38 200 MG Throat Lozenges (Cepacol Sore Throat Lozenge) 1 lety PRN Q2HRS PRN 07/04/20 01:15 Vancomycin HCl (Vanco Per Pharmacy) 1 each PRN DAILY PRN 08/11/20 13:30 08/13/20 15:09 1 EACH Vancomycin HCl (Vancomycin Trough Level) 1 each 1X ONCE 08/13/20 14:30 08/13/20 14:31 DC Vancomycin HCl 1.25 gm/Sodium Chloride 250 ml @ 167 mls/hr Q8H 07/25/20 15:00 07/26/20 07:31 DC 07/25/20 22:44 167 MLS/HR Vancomycin HCl 1.5 gm/Sodium Chloride 500 ml @ 250 mls/hr Q8H 08/11/20 23:00 08/12/20 15:13 DC 08/12/20 14:49 250 MLS/HR Vancomycin HCl 1.75 gm/Sodium Chloride 500 ml @ 250 mls/hr Q8H 08/12/20 23:00 08/14/20 07:04 250 MLS/HR Vancomycin HCl 2 gm/Sodium Chloride 500 ml @ 250 mls/hr 1X ONCE 07/25/20 07:00 07/25/20 08:59 DC 07/25/20 07:06 250 MLS/HR Vecuronium [place] 50 mg/ Miscellaneous 50 ml @ 4.094 mls/ hr CONT PRN 07/12/20 14:45 07/22/20 09:34 DC 07/18/20 01:56 7.5 MLS/HR Vecuronium [place] (Norcuron Bolus) 6 mg PRN Q6HRS PRN 07/28/20 23:00 08/09/20 15:05 6 MG Vitamin D (Vitamin D3) 5,000 unit DAILY 07/05/20 09:00 08/13/20 09:47 5,000 UNIT Zinc Sulfate (Orazinc) 220 mg DAILY 07/05/20 09:00 08/13/20 09:47 220 MG Labs: Lab Laboratory Tests Test 08/13/20 11:35 08/13/20 14:10 08/13/20 19:20 08/13/20 23:35 White Blood Count 11.6 x10^3/uL (4.0-11.0) Red Blood Count 2.87 x10^6/uL (4.30-5.70) Hemoglobin 9.1 g/dL (13.0-17.5) Hematocrit 26.9 % (39.0-53.0) Mean Corpuscular Volume 94 fL (79-100) Mean Corpuscular Hemoglobin 32 pg (25-35) Mean Corpuscular Hemoglobin Concent 34 g/dL (31-37) Red Cell Distribution Width 16.4 % (11.5-14.5) Platelet Count 386 x10^3/uL (140-400) Neutrophils (%) (Auto) 72 % (31-73) Lymphocytes (%) (Auto) 13 % (24-48) Monocytes (%) (Auto) 14 % (0-9) Eosinophils (%) (Auto) 0 % (0-3) Basophils (%) (Auto) 1 % (0-3) Neutrophils # (Auto) 8.3 x10^3/uL (1.8-7.7) Lymphocytes # (Auto) 1.5 x10^3/uL (1.0-4.8) Monocytes # (Auto) 1.6 x10^3/uL (0.0-1.1) Eosinophils # (Auto) 0.0 x10^3/uL (0.0-0.7) Basophils # (Auto) 0.1 x10^3/uL (0.0-0.2) Heparin Anti-Xa Act, Unfractionated 0.43 IU/mL (0.30-0.70) 0.45 IU/mL (0.30-0.70) Potassium Level 3.4 mmol/L (3.5-5.1) 3.7 mmol/L (3.5-5.1) Vancomycin Level Trough 19.6 mcg/mL (10.0-20.0) Vancomycin Last Dose Date Unk Vancomycin Last Dose Time Unk Magnesium Level 2.0 mg/dL (1.8-2.4) Test 08/14/20 06:30 White Blood Count 11.9 x10^3/uL (4.0-11.0) Red Blood Count 2.75 x10^6/uL (4.30-5.70) Hemoglobin 8.4 g/dL (13.0-17.5) Hematocrit 25.7 % (39.0-53.0) Mean Corpuscular Volume 94 fL (79-100) Mean Corpuscular Hemoglobin 31 pg (25-35) Mean Corpuscular Hemoglobin Concent 33 g/dL (31-37) Red Cell Distribution Width 16.5 % (11.5-14.5) Platelet Count 333 x10^3/uL (140-400) Neutrophils (%) (Auto) 69 % (31-73) Lymphocytes (%) (Auto) 15 % (24-48) Monocytes (%) (Auto) 14 % (0-9) Eosinophils (%) (Auto) 1 % (0-3) Basophils (%) (Auto) 1 % (0-3) Neutrophils # (Auto) 8.2 x10^3/uL (1.8-7.7) Lymphocytes # (Auto) 1.8 x10^3/uL (1.0-4.8) Monocytes # (Auto) 1.7 x10^3/uL (0.0-1.1) Eosinophils # (Auto) 0.1 x10^3/uL (0.0-0.7) Basophils # (Auto) 0.1 x10^3/uL (0.0-0.2) Sodium Level 137 mmol/L (136-145) Potassium Level 3.5 mmol/L (3.5-5.1) Chloride Level 102 mmol/L (98-107) Carbon Dioxide Level 30 mmol/L (21-32) Anion Gap 5 (6-14) Blood Urea Nitrogen 6 mg/dL (8-26) Creatinine 0.7 mg/dL (0.7-1.3) Estimated GFR (Cockcroft-Gault) 119.4 BUN/Creatinine Ratio 9 (6-20) Glucose Level 172 mg/dL (70-99) Calcium Level 8.0 mg/dL (8.5-10.1) Total Bilirubin 0.2 mg/dL (0.2-1.0) Aspartate Amino Transf (AST/SGOT) 18 U/L (15-37) Alanine Aminotransferase (ALT/SGPT) 23 U/L (16-63) Alkaline Phosphatase 123 U/L (46-116) Total Protein 6.0 g/dL (6.4-8.2) Albumin 1.5 g/dL (3.4-5.0) Albumin/Globulin Ratio 0.3 (1.0-1.7) Objective: Assessment: Fever Leukocytosis improved COVID-19 positive. Status post remdesivir, steroids Acute hypoxic respiratory failure/ARDS /pneumonia Bilateral pulmonary emboli. Hypertension. Bacteremia 07/23 1/2 bottles staph hominis likely contaminant Repeat blood cultures staph capitis likely contaminant repeat BC 08/06 staph pettenkori likely contaminant Enterobacter UTI and pneumonia Plan: Plan of Care DC IV Vanc start zyvox and Merrem UA UC RUE PICC line DC'd Fernandez changed 07/26 Follow-up repeat BC Monitor labs and cultures fever ? may have TB KUB noted F/U c diff pcr tracheal aspirate for afb stain neg so far,, culture pending D/W JAMI LUCAS MD Aug 14, 2020 08:03
[2020-08-14] MEDS: LINEZOLID 600 MG TABLET PO SCH ×2 (08:24→20:31)
[2020-08-14] MEDS: MEROPENEM 500 MG in IV NORMAL SALINE 50ML 50 ML IV SCH ×3 (08:25→17:29)
[2020-08-14] MEDS: HEPARIN for IV BOLUS 10,000 UNIT/10 ML VIAL. IV PRN ×2 (08:33→22:56)
[2020-08-14 08:39] LABS: BILIRUBIN,URINE NEGATIVE (NEG); CLARITY,URINE CLOUDY; COLOR,URINE YELLOW; NITRITE,URINE NEGATIVE (NEG); PH,URINE 7.5 (<5.0-8.0); PROTEIN,URINE NEGATIVE (NEG-TRACE); UROBILINOGEN,URINE 0.2 mg/dL (0.2 mg/dL)
[2020-08-14 08:52] LABS: AMORPHOUS SEDIMENT,UR PRESENT /HPF; BACTERIA,URINE FEW /HPF (0-FEW)
[2020-08-14] MEDS: HEPARIN 25,000UTS/250ML PREMIX 250 ML IV PRN (09:36)
[2020-08-14] MEDS: ANTI-COAG MONITOR BY PHARMACY. MC PRN (09:40)
--- NOTE | 2020-08-14 11:22 | PDOC ---
PULMONARY PROGRESS NOTES DATE: 08/14/20 TIME: 11:16 Subjective PT. remains on vent support , 40% FiO2 and a PEEP of 6 Status post tracheostomy on 08/06/2020 and S/P peg tube on 08/09 Continues to have fevers Pressure support yesterday X2 for short periods No other concerns from nursing overnight Vitals Vital Signs Date Time Temp Pulse Resp B/P (MAP) Pulse Ox O2 Delivery O2 Flow Rate FiO2 08/14/20 11:00 62 30 122/67 (85) 100 CPAP Trial 08/14/20 08:00 100.6 100.6 Comments General: Alert, No acute distress Lungs: Clear Cardiovascular: S1, S2 Abdomen: Soft Neuro Exam: Alert Extremities: No Edema Skin: Warm, Dry Labs Laboratory Tests Test 08/12/20 11:34 08/12/20 14:12 08/12/20 20:40 08/13/20 04:40 Heparin Anti-Xa Act, Unfractionated 0.26 IU/mL (0.30-0.70) 0.26 IU/mL (0.30-0.70) < 0.10 IU/mL (0.30-0.70) Vancomycin Level Trough 12.8 mcg/mL (10.0-20.0) Vancomycin Last Dose Date 08/12/20 Vancomycin Last Dose Time 0700 Potassium Level 3.1 mmol/L (3.5-5.1) 3.3 mmol/L (3.5-5.1) Magnesium Level 1.7 mg/dL (1.8-2.4) White Blood Count 13.1 x10^3/uL (4.0-11.0) Red Blood Count 2.92 x10^6/uL (4.30-5.70) Hemoglobin 9.0 g/dL (13.0-17.5) Hematocrit 27.3 % (39.0-53.0) Mean Corpuscular Volume 94 fL (79-100) Mean Corpuscular Hemoglobin 31 pg (25-35) Mean Corpuscular Hemoglobin Concent 33 g/dL (31-37) Red Cell Distribution Width 15.7 % (11.5-14.5) Platelet Count 420 x10^3/uL (140-400) Sodium Level 139 mmol/L (136-145) Chloride Level 102 mmol/L (98-107) Carbon Dioxide Level 31 mmol/L (21-32) Anion Gap 6 (6-14) Blood Urea Nitrogen 3 mg/dL (8-26) Creatinine 0.5 mg/dL (0.7-1.3) Estimated GFR (Cockcroft-Gault) 176.0 BUN/Creatinine Ratio 6 (6-20) Glucose Level 159 mg/dL (70-99) Calcium Level 8.1 mg/dL (8.5-10.1) Total Bilirubin 0.3 mg/dL (0.2-1.0) Aspartate Amino Transf (AST/SGOT) 17 U/L (15-37) Alanine Aminotransferase (ALT/SGPT) 23 U/L (16-63) Alkaline Phosphatase 151 U/L (46-116) Total Protein 6.2 g/dL (6.4-8.2) Albumin 1.6 g/dL (3.4-5.0) Albumin/Globulin Ratio 0.3 (1.0-1.7) Test 08/13/20 11:35 08/13/20 14:10 08/13/20 19:20 08/13/20 23:35 White Blood Count 11.6 x10^3/uL (4.0-11.0) Red Blood Count 2.87 x10^6/uL (4.30-5.70) Hemoglobin 9.1 g/dL (13.0-17.5) Hematocrit 26.9 % (39.0-53.0) Mean Corpuscular Volume 94 fL (79-100) Mean Corpuscular Hemoglobin 32 pg (25-35) Mean Corpuscular Hemoglobin Concent 34 g/dL (31-37) Red Cell Distribution Width 16.4 % (11.5-14.5) Platelet Count 386 x10^3/uL (140-400) Neutrophils (%) (Auto) 72 % (31-73) Lymphocytes (%) (Auto) 13 % (24-48) Monocytes (%) (Auto) 14 % (0-9) Eosinophils (%) (Auto) 0 % (0-3) Basophils (%) (Auto) 1 % (0-3) Neutrophils # (Auto) 8.3 x10^3/uL (1.8-7.7) Lymphocytes # (Auto) 1.5 x10^3/uL (1.0-4.8) Monocytes # (Auto) 1.6 x10^3/uL (0.0-1.1) Eosinophils # (Auto) 0.0 x10^3/uL (0.0-0.7) Basophils # (Auto) 0.1 x10^3/uL (0.0-0.2) Heparin Anti-Xa Act, Unfractionated 0.43 IU/mL (0.30-0.70) 0.45 IU/mL (0.30-0.70) Potassium Level 3.4 mmol/L (3.5-5.1) 3.7 mmol/L (3.5-5.1) Vancomycin Level Trough 19.6 mcg/mL (10.0-20.0) Vancomycin Last Dose Date Unk Vancomycin Last Dose Time Unk Magnesium Level 2.0 mg/dL (1.8-2.4) Test 08/14/20 06:05 08/14/20 06:30 08/14/20 08:15 Heparin Anti-Xa Act, Unfractionated 0.28 IU/mL (0.30-0.70) White Blood Count 11.9 x10^3/uL (4.0-11.0) Red Blood Count 2.75 x10^6/uL (4.30-5.70) Hemoglobin 8.4 g/dL (13.0-17.5) Hematocrit 25.7 % (39.0-53.0) Mean Corpuscular Volume 94 fL (79-100) Mean Corpuscular Hemoglobin 31 pg (25-35) Mean Corpuscular Hemoglobin Concent 33 g/dL (31-37) Red Cell Distribution Width 16.5 % (11.5-14.5) Platelet Count 333 x10^3/uL (140-400) Neutrophils (%) (Auto) 69 % (31-73) Lymphocytes (%) (Auto) 15 % (24-48) Monocytes (%) (Auto) 14 % (0-9) Eosinophils (%) (Auto) 1 % (0-3) Basophils (%) (Auto) 1 % (0-3) Neutrophils # (Auto) 8.2 x10^3/uL (1.8-7.7) Lymphocytes # (Auto) 1.8 x10^3/uL (1.0-4.8) Monocytes # (Auto) 1.7 x10^3/uL (0.0-1.1) Eosinophils # (Auto) 0.1 x10^3/uL (0.0-0.7) Basophils # (Auto) 0.1 x10^3/uL (0.0-0.2) Sodium Level 137 mmol/L (136-145) Potassium Level 3.5 mmol/L (3.5-5.1) Chloride Level 102 mmol/L (98-107) Carbon Dioxide Level 30 mmol/L (21-32) Anion Gap 5 (6-14) Blood Urea Nitrogen 6 mg/dL (8-26) Creatinine 0.7 mg/dL (0.7-1.3) Estimated GFR (Cockcroft-Gault) 119.4 BUN/Creatinine Ratio 9 (6-20) Glucose Level 172 mg/dL (70-99) Calcium Level 8.0 mg/dL (8.5-10.1) Total Bilirubin 0.2 mg/dL (0.2-1.0) Aspartate Amino Transf (AST/SGOT) 18 U/L (15-37) Alanine Aminotransferase (ALT/SGPT) 23 U/L (16-63) Alkaline Phosphatase 123 U/L (46-116) Total Protein 6.0 g/dL (6.4-8.2) Albumin 1.5 g/dL (3.4-5.0) Albumin/Globulin Ratio 0.3 (1.0-1.7) Urine Collection Type Unknown Urine Color Yellow Urine Clarity Cloudy Urine pH 7.5 (<5.0-8.0) Urine Specific [place] 1.010 (1.000-1.030) Urine Protein Negative mg/dL (NEG-TRACE) Urine Glucose (UA) Negative mg/dL (NEG) Urine Ketones (Stick) Negative mg/dL (NEG) Urine Blood Large (NEG) Urine Nitrite Negative (NEG) Urine Bilirubin Negative (NEG) Urine Urobilinogen Dipstick 0.2 mg/dL (0.2 mg/dL) Urine Leukocyte Esterase Trace (NEG) Urine RBC 11-20 /HPF (0-2) Urine WBC 5-10 /HPF (0-4) Urine Transitional Epithelial Cells Occ /LPF Urine Amorphous Sediment Present /HPF Urine Bacteria Few /HPF (0-FEW) Laboratory Tests Test 08/13/20 11:35 12/21/20 14:10 08/13/20 19:20 08/13/20 23:35 White Blood Count 11.6 x10^3/uL (4.0-11.0) Red Blood Count 2.87 x10^6/uL (4.30-5.70) Hemoglobin 9.1 g/dL (13.0-17.5) Hematocrit 26.9 % (39.0-53.0) Mean Corpuscular Volume 94 fL (79-100) Mean Corpuscular Hemoglobin 32 pg (25-35) Mean Corpuscular Hemoglobin Concent 34 g/dL (31-37) Red Cell Distribution Width 16.4 % (11.5-14.5) Platelet Count 386 x10^3/uL (140-400) Neutrophils (%) (Auto) 72 % (31-73) Lymphocytes (%) (Auto) 13 % (24-48) Monocytes (%) (Auto) 14 % (0-9) Eosinophils (%) (Auto) 0 % (0-3) Basophils (%) (Auto) 1 % (0-3) Neutrophils # (Auto) 8.3 x10^3/uL (1.8-7.7) Lymphocytes # (Auto) 1.5 x10^3/uL (1.0-4.8) Monocytes # (Auto) 1.6 x10^3/uL (0.0-1.1) Eosinophils # (Auto) 0.0 x10^3/uL (0.0-0.7) Basophils # (Auto) 0.1 x10^3/uL (0.0-0.2) Heparin Anti-Xa Act, Unfractionated 0.43 IU/mL (0.30-0.70) 0.45 IU/mL (0.30-0.70) Potassium Level 3.4 mmol/L (3.5-5.1) 3.7 mmol/L (3.5-5.1) Vancomycin Level Trough 19.6 mcg/mL (10.0-20.0) Vancomycin Last Dose Date Unk Vancomycin Last Dose Time Unk Magnesium Level 2.0 mg/dL (1.8-2.4) Test 08/14/20 06:05 08/14/20 06:30 08/14/20 08:15 Heparin Anti-Xa Act, Unfractionated 0.28 IU/mL (0.30-0.70) White Blood Count 11.9 x10^3/uL (4.0-11.0) Red Blood Count 2.75 x10^6/uL (4.30-5.70) Hemoglobin 8.4 g/dL (13.0-17.5) Hematocrit 25.7 % (39.0-53.0) Mean Corpuscular Volume 94 fL (79-100) Mean Corpuscular Hemoglobin 31 pg (25-35) Mean Corpuscular Hemoglobin Concent 33 g/dL (31-37) Red Cell Distribution Width 16.5 % (11.5-14.5) Platelet Count 333 x10^3/uL (140-400) Neutrophils (%) (Auto) 69 % (31-73) Lymphocytes (%) (Auto) 15 % (24-48) Monocytes (%) (Auto) 14 % (0-9) Eosinophils (%) (Auto) 1 % (0-3) Basophils (%) (Auto) 1 % (0-3) Neutrophils # (Auto) 8.2 x10^3/uL (1.8-7.7) Lymphocytes # (Auto) 1.8 x10^3/uL (1.0-4.8) Monocytes # (Auto) 1.7 x10^3/uL (0.0-1.1) Eosinophils # (Auto) 0.1 x10^3/uL (0.0-0.7) Basophils # (Auto) 0.1 x10^3/uL (0.0-0.2) Sodium Level 137 mmol/L (136-145) Potassium Level 3.5 mmol/L (3.5-5.1) Chloride Level 102 mmol/L (98-107) Carbon Dioxide Level 30 mmol/L (21-32) Anion Gap 5 (6-14) Blood Urea Nitrogen 6 mg/dL (8-26) Creatinine 0.7 mg/dL (0.7-1.3) Estimated GFR (Cockcroft-Gault) 119.4 BUN/Creatinine Ratio 9 (6-20) Glucose Level 172 mg/dL (70-99) Calcium Level 8.0 mg/dL (8.5-10.1) Total Bilirubin 0.2 mg/dL (0.2-1.0) Aspartate Amino Transf (AST/SGOT) 18 U/L (15-37) Alanine Aminotransferase (ALT/SGPT) 23 U/L (16-63) Alkaline Phosphatase 123 U/L (46-116) Total Protein 6.0 g/dL (6.4-8.2) Albumin 1.5 g/dL (3.4-5.0) Albumin/Globulin Ratio 0.3 (1.0-1.7) Urine Collection Type Unknown Urine Color Yellow Urine Clarity Cloudy Urine pH 7.5 (<5.0-8.0) Urine Specific [place] 1.010 (1.000-1.030) Urine Protein Negative mg/dL (NEG-TRACE) Urine Glucose (UA) Negative mg/dL (NEG) Urine Ketones (Stick) Negative mg/dL (NEG) Urine Blood Large (NEG) Urine Nitrite Negative (NEG) Urine Bilirubin Negative (NEG) Urine Urobilinogen Dipstick 0.2 mg/dL (0.2 mg/dL) Urine Leukocyte Esterase Trace (NEG) Urine RBC 11-20 /HPF (0-2) Urine WBC 5-10 /HPF (0-4) Urine Transitional Epithelial Cells Occ /LPF Urine Amorphous Sediment Present /HPF Urine Bacteria Few /HPF (0-FEW) Comments CXR 08/14 IMPRESSION: worsening loculated left effusion, bilateral infiltrates Impression . IMPRESSION: 1. Acute hypoxemic respiratory failure./ALI/ARDS due to COVID -19 2. Acute pulmonary embolism with cor pulmonale. 3. COVID-19 pnemonia.now with persistent fevers, suspect VAP/ Left sided empye ma 5. Hypertension. 6. History of bronchitis. 7. Elevated troponin. 8. Acute kidney injury. 9. Leukocytosis. 10. Covid-19 positive Plan . Continue current ventilatory support, FiO2 40% and a PEEP of 6, Pressure support as tolerate during the day and A/C overnight, placed on pressure support of 16 this am, tolerating well ct chest today to assess for empyema/ will need chest tube, possible Bronch Precedex if needed Status post tracheostomy 08/06 and S/P Peg tube placement 08/09 continue heparin gtt monitor hemoglobin reviewed chest x-ray and ABG, Follow cardiology recommendations Antibiotics per ID--AFB negative, repeat cultures negative, continues to have fevers, currently on humberto, zyvox Has completed full course of remdesivir Continue tube feeding for nutritional support DVT/GI prophylaxis,Protonix-- heparin gtt Discussed with RN and RT Pt. is FULL CODE critically ill Critical care time [id number] NERY SALINAS MD Aug 14, 2020 11:22
--- NOTE | 2020-08-14 11:36 | PDOC ---
Date of Service: DATE: 08/14/20 TIME: 11:28 Objective: Vital Signs: Vital Signs Date Time Temp Pulse Resp B/P (MAP) Pulse Ox O2 Delivery O2 Flow Rate FiO2 08/14/20 11:00 62 30 122/67 (85) 100 CPAP Trial 08/14/20 08:00 100.6 100.6 Labs: Laboratory Tests Test 08/13/20 11:35 08/13/20 14:10 08/13/20 19:20 08/13/20 23:35 White Blood Count 11.6 x10^3/uL Red Blood Count 2.87 x10^6/uL Hemoglobin 9.1 g/dL Hematocrit 26.9 % Mean Corpuscular Volume 94 fL Mean Corpuscular Hemoglobin 32 pg Mean Corpuscular Hemoglobin Concent 34 g/dL Red Cell Distribution Width 16.4 % Platelet Count 386 x10^3/uL Neutrophils (%) (Auto) 72 % Lymphocytes (%) (Auto) 13 % Monocytes (%) (Auto) 14 % Eosinophils (%) (Auto) 0 % Basophils (%) (Auto) 1 % Neutrophils # (Auto) 8.3 x10^3/uL Lymphocytes # (Auto) 1.5 x10^3/uL Monocytes # (Auto) 1.6 x10^3/uL Eosinophils # (Auto) 0.0 x10^3/uL Basophils # (Auto) 0.1 x10^3/uL Heparin Anti-Xa Act, Unfractionated 0.43 IU/mL 0.45 IU/mL Potassium Level 3.4 mmol/L 3.7 mmol/L Vancomycin Level Trough 19.6 mcg/mL Vancomycin Last Dose Date Unk Vancomycin Last Dose Time Unk Magnesium Level 2.0 mg/dL Test 08/14/20 06:05 08/14/20 06:30 08/14/20 08:15 Heparin Anti-Xa Act, Unfractionated 0.28 IU/mL White Blood Count 11.9 x10^3/uL Red Blood Count 2.75 x10^6/uL Hemoglobin 8.4 g/dL Hematocrit 25.7 % Mean Corpuscular Volume 94 fL Mean Corpuscular Hemoglobin 31 pg Mean Corpuscular Hemoglobin Concent 33 g/dL Red Cell Distribution Width 16.5 % Platelet Count 333 x10^3/uL Neutrophils (%) (Auto) 69 % Lymphocytes (%) (Auto) 15 % Monocytes (%) (Auto) 14 % Eosinophils (%) (Auto) 1 % Basophils (%) (Auto) 1 % Neutrophils # (Auto) 8.2 x10^3/uL Lymphocytes # (Auto) 1.8 x10^3/uL Monocytes # (Auto) 1.7 x10^3/uL Eosinophils # (Auto) 0.1 x10^3/uL Basophils # (Auto) 0.1 x10^3/uL Sodium Level 137 mmol/L Potassium Level 3.5 mmol/L Chloride Level 102 mmol/L Carbon Dioxide Level 30 mmol/L Anion Gap 5 Blood Urea Nitrogen 6 mg/dL Creatinine 0.7 mg/dL Estimated GFR (Cockcroft-Gault) 119.4 BUN/Creatinine Ratio 9 Glucose Level 172 mg/dL Calcium Level 8.0 mg/dL Total Bilirubin 0.2 mg/dL Aspartate Amino Transf (AST/SGOT) 18 U/L Alanine Aminotransferase (ALT/SGPT) 23 U/L Alkaline Phosphatase 123 U/L Total Protein 6.0 g/dL Albumin 1.5 g/dL Albumin/Globulin Ratio 0.3 Urine Collection Type Unknown Urine Color Yellow Urine Clarity Cloudy Urine pH 7.5 Urine Specific [place] 1.010 Urine Protein Negative mg/dL Urine Glucose (UA) Negative mg/dL Urine Ketones (Stick) Negative mg/dL Urine Blood Large Urine Nitrite Negative Urine Bilirubin Negative Urine Urobilinogen Dipstick 0.2 mg/dL Urine Leukocyte Esterase Trace Urine RBC 11-20 /HPF Urine WBC 5-10 /HPF Urine Transitional Epithelial Cells Occ /LPF Urine Amorphous Sediment Present /HPF Urine Bacteria Few /HPF BLOOD CULTURE LC Preliminary Preliminary GROWTH OF GRAM POSITIVE COCCI FINAL ID= [[id number]] C Diff and urine culture pending Imaging: CXR 08/14 IMPRESSION: Bilateral airspace disease and pleural effusions, not significantly changed. UE US 08/14 pending PE: GEN: NAD LUNGS: trach/CPAP trial HEART: RR ABD: non-distended, PEG in place, rectal tube NEURO/PSYCH: awake A/P: Resp failure s/p tracheostomy and PEG Fever, staph bacteremia -- Continue same per GI. Justicifation of Admission Dx: Justifications for Admission: Justification of Admission Dx: Yes LYNETTE CELIS Aug 14, 2020 11:35
[2020-08-14] MEDS: INSULIN LISPRO 300 UNITS/3 ML VIAL. SQ SCH ×2 (11:42→17:29)
--- NOTE | 2020-08-14 13:30 | RAD ---
EXAM: Bilateral upper extremity venous Doppler. HISTORY: Bilateral upper extremity swelling. COMPARISON: None. FINDINGS: Grayscale and Doppler analysis of the bilateral upper extremity deep venous system was perf ormed with graded compression and augmentation. The internal jugular, subclavian, axillary, brachial, basilic, radial and ulnar veins were assessed. There is no evidence of deep venous thrombosis. Left-sided ulnar vein was not well seen. IMPRESSION: 1. No evidence of deep venous thrombosis in the bilateral upper extremity veins although there is poo r visualization of the left ulna vein. EXAM: CT Chest without IV contrast INDICATION: Left pleural effusion and emphysema TECHNIQUE: Multi-detector row CT images were acquired from the thoracic inlet through the upper abdo men without the use of IV contrast. Sagittal and coronal images were acquired from the transaxial marlena a. All CT scans performed at this facility utilize dose optimization techniques as appropriate to the exam, including the following: Automated exposure control and adjustment of the mA and/or KV accordi ng to patient size (this includes techniques or standardized protocols for targeted exams where dose is indication/reason for exam). COMPARISON: Noncontrast abdomen CT of 07/29/2020, chest x-ray of 08/14/2020 at 4:41 AM FINDINGS: The absence of IV contrast limits evaluation of soft tissue pathology. CARDIOVASCULAR: Unremarkable MEDIASTINUM & SEVEN: Tracheostomy tube redemonstrated. Mildly reactive mediastinal lymph nodes, larges t measuring 1.2 cm in the aortopulmonary window. LUNGS: Patchy airspace opacities are present bilaterally with atelectasis in the left upper lobe and lower atelectasis of the left lower lobe, markedly increased from prior. There is in the medial left upper lobe, a 2.8 cm cystic space at the periphery of the lung that could represent a pneumatocele. A similar 3.7 cm lesion in the right upper lobe anteriorly is also noted. PLEURAL SPACE: No pneumothorax. Marked interval enlargement of left pleural effusion with variable de nsity, partly obscured by beam hardening artifact from external supportive equipment with patient's u pper extremities. There is a probable anterior loculation of this left pleural effusion measuring 3.8 cm in mediolateral diameter superficial to the right ventricular outflow tract. OSSEOUS & SOFT TISSUE: There is stairstep artifact at the proximal sternal body and overlying skin, c onsistent with respiratory motion artifact. No acute or aggressive osseous lesions are identified. ABDOMEN: The visualized portions of the upper abdomen are unremarkable. IMPRESSION: 1. Marked interval enlargement of left lateral effusion. This could be causing some mass effect on th e mediastinum. 2. Extensive pleural-parenchymal scarring and patchy airspace opacities in the lungs compatible with the sequelae of atypical pneumonia. Electronically signed by: Gosia Li MD (08/14/2020 1:28 PM) [id number]
--- NOTE | 2020-08-14 14:03 | NUR ---
SS following up with discharge planning. SS reviewed pt chart and discussed with pt RN. Pt is currently on the vent at 40%. COVID19 negative. Pt on IV Meropenem. Self pay. Not stable. SS will continue to follow for discharge planning.
--- NOTE | 2020-08-14 16:23 | NUR ---
Patient went to CT without complications, notified Dr. Nance of the results. IR was consulted and an order was given to stop heparin gtt 2 hours prior to any IR procedure.
[2020-08-15] VITALS (25 sets, daily range): BP systolic 101–152; BP diastolic 54–92
[2020-08-15] MEDS: MEROPENEM 500 MG in IV NORMAL SALINE 50ML 50 ML IV SCH ×5 (00:13→23:09)
[2020-08-15] MEDS: HEPARIN 25,000UTS/250ML PREMIX 250 ML IV PRN ×3 (00:17→23:18)
[2020-08-15] MEDS: INSULIN LISPRO 300 UNITS/3 ML VIAL. SQ SCH ×5 (05:38→23:18)
[2020-08-15] MEDS: DEXMEDETOMIDINE 400 MCG in IV NORMAL SALINE 100ML 96 ML IV PRN ×2 (07:17→19:29)
[2020-08-15 07:26] LABS: HEMATOCRIT 25.5 % (39.0-53.0); HEMOGLOBIN 8.3 g/dL (13.0-17.5); RED BLOOD COUNT 2.72 x10^6/uL (4.30-5.70); RED CELL DISTRIBUTION WIDTH 16.5 % (11.5-14.5); WHITE BLOOD COUNT 11.3 x10^3/uL (4.0-11.0)
--- NOTE | 2020-08-15 07:51 | PDOC ---
Infectious Disease Note Subjective: Subjective Patient with trach on vent Febrile at 101 this am Vital Signs: Vital Signs Vital Signs Date Time Temp Pulse Resp B/P (MAP) Pulse Ox O2 Delivery O2 Flow Rate FiO2 08/15/20 07:15 100 Ventilator 08/15/20 06:00 62 20 127/70 (89) 08/15/20 04:00 100.2 100.2 Physical Exam: PHYSICAL EXAM General on vent,alert HEENT normocephalic atraumatic , trach LUNGS: Coarse breath sounds anteriorly HEART: S1-S2 no murmurs ABDOMEN: mildly distended, soft bowel sounds present Fernandez in place,fecal tube in place SKIN: No generalized rash Right upper extremity PICC line removed PIVs Clean Neuro alert awake Medications: Inpatient Meds: Current Medications Medications (Trade) Dose Ordered Sig/Natalee Start Time Stop Time Status Last Admin Dose Admin Acetaminophen (Tylenol Supp) 650 mg PRN Q6HRS PRN 08/06/20 20:45 08/07/20 19:28 650 MG Acetaminophen (Tylenol) 650 mg PRN Q6HRS PRN 07/12/20 12:00 08/14/20 20:31 650 MG Apixaban (Eliquis) 5 mg BID 07/23/20 09:00 07/27/20 12:19 DC 07/26/20 20:31 5 MG Ascorbic Acid (Vitamin C) 500 mg Q6HRS 07/04/20 18:00 08/05/20 08:39 DC 08/05/20 06:07 500 MG Azithromycin (Zithromax) 500 mg 1X ONCE 07/03/20 19:15 07/03/20 19:19 DC 07/03/20 20:11 500 MG Bupivacaine HCl/ Epinephrine Bitart (Sensorcain-Epi 0.5%-1:[id number] Mpf) 30 ml 1X ONCE 08/06/20 06:30 08/06/20 06:31 DC 08/06/20 15:15 1 ML Cefazolin Sodium/ Dextrose 50 ml @ 100 mls/hr 1X ONCE 08/09/20 11:00 08/09/20 11:29 DC 08/09/20 11:04 100 MLS/HR Ceftriaxone Sodium (Rocephin) 1 gm 1X ONCE 07/03/20 19:15 07/03/20 19:19 DC 11/10/20 20:11 1 GM Cellulose (Surgicel Fibrillar 1x2) 1 each STK-MED ONCE 07/31/20 13:08 07/31/20 13:08 DC Cellulose (Surgicel Hemostat 4x8) 1 each STK-MED ONCE 08/06/20 14:10 08/06/20 14:11 DC Daptomycin 470 mg/ Sodium Chloride 50 ml @ 100 mls/hr Q24H 08/01/20 09:00 08/05/20 11:20 DC 08/05/20 09:24 100 MLS/HR Dexmedetomidine HCl 400 mcg/ Sodium Chloride 100 ml @ 0 mls/hr CONT PRN 08/11/20 10:00 08/15/20 07:17 10.3 MLS/HR Dextrose (Dextrose 50%-Water Syringe) 12.5 gm PRN Q15MIN PRN 08/14/20 08:00 UNV Enoxaparin Sodium (Lovenox 150mg Syringe) 150 mg 1X ONCE 07/03/20 23:00 07/03/20 23:01 DC 07/03/20 22:45 150 MG Etomidate (Amidate) 10 mg 1X ONCE 07/04/20 09:30 07/04/20 09:31 DC 07/04/20 09:37 10 MG Fentanyl Citrate (Fentanyl 2ml Vial) 100 mcg STK-MED ONCE 08/06/20 11:03 08/06/20 11:03 DC Furosemide (Lasix) 20 mg 1X ONCE 07/29/20 06:30 07/29/20 06:31 DC 07/29/20 06:35 20 MG Heparin Sodium (Porcine) (Heparin Sodium) 1,250 unit PRN Q6HRS PRN 08/11/20 14:30 08/14/20 22:56 1,250 UNIT Heparin Sodium/ Dextrose 250 ml @ 0 mls/hr CONT PRN 08/11/20 14:30 08/15/20 00:17 27.1 MLS/HR Hydromorphone HCl (Dilaudid) 0.5 mg PRN Q10MIN PRN 08/06/20 07:00 08/07/20 06:59 DC Info (Anti-Coagulation Monitoring By Pharmacy) 1 each PRN DAILY PRN 07/16/20 08:15 08/14/20 09:40 1 EACH Info (CONTRAST GIVEN -- Rx MONITORING) 1 each PRN DAILY PRN 07/03/20 20:45 07/05/20 20:44 DC Info (Icu Electrolyte Protocol) 1 ea CONT PRN PRN 07/24/20 15:45 Insulin Human Lispro (HumaLOG) 0-7 UNITS Q6HRS 08/14/20 12:00 08/15/20 05:38 3 UNITS Iohexol (Omnipaque 350 Mg/ml) 90 ml 1X ONCE 07/03/20 20:45 07/03/20 20:46 DC 07/03/20 21:00 90 ML Levofloxacin/ Dextrose 150 ml @ 100 mls/hr Q24H 08/02/20 09:00 08/05/20 11:20 DC 08/05/20 07:16 100 MLS/HR Lidocaine HCl (Xylocaine-Mpf 1% 2ml Vial) 2 ml PRN 1X PRN 08/06/20 07:00 08/07/20 06:59 DC Linezolid (Zyvox) 600 mg BID 08/14/20 09:00 08/14/20 20:31 600 MG Linezolid/Dextrose 300 ml @ 300 mls/hr Q12HR 07/27/20 12:30 07/31/20 07:36 DC 07/30/20 21:47 300 MLS/HR Lorazepam (Ativan Inj) 2 mg PRN Q1HR PRN 07/21/20 12:30 07/24/20 06:51 2 MG Magnesium Sulfate 100 ml @ 50 mls/hr DAILY 08/13/20 00:00 08/16/20 00:00 08/13/20 02:02 50 MLS/HR Meclizine HCl (Antivert) 25 mg PRN DAILY PRN 08/12/20 23:00 Meropenem 500 mg/ Sodium Chloride 50 ml @ 100 mls/hr Q6HRS 08/14/20 09:00 08/15/20 05:37 100 MLS/HR Methylprednisolone Sodium Succinate (SOLU-Medrol 40MG VIAL) 40 mg DAILY 07/21/20 09:00 07/22/20 09:36 DC 07/22/20 09:08 40 MG Midazolam HCl (Versed) 5 mg STK-MED ONCE 07/04/20 09:21 07/04/20 09:21 DC Morphine Sulfate (Morphine Sulfate) 1 mg PRN Q10MIN PRN 08/06/20 07:00 08/07/20 06:59 DC Multi-Ingred Cream/Lotion/Oil/ Oint (Artificial Tears Eye Ointment) 1 wenceslao PRN Q1HR PRN 07/18/20 10:45 07/27/20 17:19 1 WENCESLAO Norepinephrine Bitartrate 8 mg/ Dextrose 258 ml @ 16.061 mls/ hr CONT PRN 07/04/20 13:15 07/18/20 11:01 DC 07/05/20 00:33 28.909 MLS/HR Ondansetron HCl (Zofran) 4 mg PRN Q6HRS PRN 08/06/20 07:00 08/07/20 06:59 DC Pantoprazole Sodium (PROTONIX VIAL for IV PUSH) 40 mg DAILYAC 07/04/20 12:30 08/14/20 08:02 40 MG Piperacillin Sod/ Tazobactam Sod (Zosyn Per Pharmacy) 1 each PRN DAILY PRN 07/04/20 12:00 07/18/20 07:46 DC Piperacillin Sod/ Tazobactam Sod 3.375 gm/Sodium Chloride 50 ml @ 100 mls/hr Q6HRS 07/04/20 12:00 07/17/20 11:11 DC 07/17/20 05:10 100 MLS/HR Piperacillin Sod/ Tazobactam Sod 4.5 gm/Sodium Chloride 100 ml @ 200 mls/hr Q6HRS 07/24/20 12:00 07/26/20 10:53 DC 07/26/20 05:36 200 MLS/HR Potassium Bicarbonate (Potassium Effervescent Tablet) 40 meq Q2H 08/11/20 12:45 08/11/20 14:46 DC 08/11/20 14:58 40 MEQ Potassium Chloride/Water 100 ml @ 100 mls/hr Q1H 08/13/20 13:00 08/13/20 16:59 DC 08/13/20 18:10 100 MLS/HR Potassium Phosphate 13.6 mmol/Sodium Chloride 254.5333 ml @ 62.5 mls/hr Q4H 07/24/20 15:30 07/25/20 03:29 UNV Prochlorperazine Edisylate (Compazine) 10 mg PRN Q6HRS PRN 08/12/20 21:30 08/12/20 21:55 10 MG Propofol 100 ml @ 0 mls/hr CONT PRN 07/04/20 09:15 08/11/20 06:42 14.9 MLS/HR Remdesivir 100 mg/ Sodium Chloride 230 ml @ 460 mls/hr Q24H 07/07/20 14:30 07/10/20 14:59 DC 07/10/20 13:59 460 MLS/HR Remdesivir 200 mg/ Sodium Chloride 210 ml @ 210 mls/hr 1X ONCE 07/06/20 14:30 07/06/20 15:29 DC 07/06/20 14:51 210 MLS/HR Ringer's Solution 1,000 ml @ 30 mls/hr Q24H 08/09/20 06:00 08/09/20 17:59 DC 08/09/20 06:11 30 MLS/HR Rocuronium Sterling (Zemuron) 50 mg STK-MED ONCE 08/06/20 15:19 08/06/20 15:19 DC Sevoflurane (Ultane) 30 ml STK-MED ONCE 08/06/20 15:18 08/06/20 15:19 DC Sodium Chloride 1,000 ml @ 100 mls/hr Q10H 08/07/20 12:00 08/12/20 10:50 DC 08/11/20 16:30 100 MLS/HR Sodium Phosphate 20 mmol/Sodium Chloride 256.6667 ml @ 62.5 mls/hr 1X ONCE 07/24/20 15:30 07/24/20 19:36 UNV Sodium Phosphate 30 mmol/Sodium Chloride 260 ml @ 62.5 mls/hr 1X ONCE 07/24/20 15:30 07/24/20 19:39 UNV Succinylcholine Chloride (Anectine) 200 mg 1X ONCE 07/04/20 09:30 07/04/20 09:31 DC 07/04/20 09:38 200 MG Throat Lozenges (Cepacol Sore Throat Lozenge) 1 lety PRN Q2HRS PRN 07/04/20 01:15 Vancomycin HCl (Vanco Per Pharmacy) 1 each PRN DAILY PRN 08/11/20 13:30 08/14/20 08:03 DC 08/13/20 15:09 1 EACH Vancomycin HCl (Vancomycin Trough Level) 1 each 1X ONCE 08/13/20 14:30 08/13/20 14:31 DC Vancomycin HCl 1.25 gm/Sodium Chloride 250 ml @ 167 mls/hr Q8H 07/25/20 15:00 07/26/20 07:31 DC 07/25/20 22:44 167 MLS/HR Vancomycin HCl 1.5 gm/Sodium Chloride 500 ml @ 250 mls/hr Q8H 08/11/20 23:00 08/12/20 15:13 DC 08/12/20 14:49 250 MLS/HR Vancomycin HCl 1.75 gm/Sodium Chloride 500 ml @ 250 mls/hr Q8H 08/12/20 23:00 08/14/20 08:01 DC 08/14/20 07:04 250 MLS/HR Vancomycin HCl 2 gm/Sodium Chloride 500 ml @ 250 mls/hr 1X ONCE 07/25/20 07:00 07/25/20 08:59 DC 07/25/20 07:06 250 MLS/HR Vecuronium Sterling 50 mg/ Miscellaneous 50 ml @ 4.094 mls/ hr CONT PRN 07/12/20 14:45 07/22/20 09:34 DC 07/18/20 01:56 7.5 MLS/HR Vecuronium Sterling (Norcuron Bolus) 6 mg PRN Q6HRS PRN 07/28/20 23:00 08/09/20 15:05 6 MG Vitamin D (Vitamin D3) 5,000 unit DAILY 07/05/20 09:00 08/14/20 08:02 5,000 UNIT Zinc Sulfate (Orazinc) 220 mg DAILY 07/05/20 09:00 08/14/20 08:02 220 MG Labs: Lab Laboratory Tests Test 08/14/20 08:15 08/14/20 22:15 08/15/20 00:11 08/15/20 05:34 Urine Collection Type Unknown Urine Color Yellow Urine Clarity Cloudy Urine pH 7.5 (<5.0-8.0) Urine Specific [place] 1.010 (1.000-1.030) Urine Protein Negative mg/dL (NEG-TRACE) Urine Glucose (UA) Negative mg/dL (NEG) Urine Ketones (Stick) Negative mg/dL (NEG) Urine Blood Large (NEG) Urine Nitrite Negative (NEG) Urine Bilirubin Negative (NEG) Urine Urobilinogen Dipstick 0.2 mg/dL (0.2 mg/dL) Urine Leukocyte Esterase Trace (NEG) Urine RBC 11-20 /HPF (0-2) Urine WBC 5-10 /HPF (0-4) Urine Transitional Epithelial Cells Occ /LPF Urine Amorphous Sediment Present /HPF Urine Bacteria Few /HPF (0-FEW) Heparin Anti-Xa Act, Unfractionated 0.29 IU/mL (0.30-0.70) Glucose (Fingerstick) 149 mg/dL (70-99) 157 mg/dL (70-99) Test 08/15/20 06:37 White Blood Count 11.3 x10^3/uL (4.0-11.0) Red Blood Count 2.72 x10^6/uL (4.30-5.70) Hemoglobin 8.3 g/dL (13.0-17.5) Hematocrit 25.5 % (39.0-53.0) Mean Corpuscular Volume 94 fL (79-100) Mean Corpuscular Hemoglobin 31 pg (25-35) Mean Corpuscular Hemoglobin Concent 33 g/dL (31-37) Red Cell Distribution Width 16.5 % (11.5-14.5) Platelet Count 308 x10^3/uL (140-400) Heparin Anti-Xa Act, Unfractionated 0.66 IU/mL (0.30-0.70) Objective: Assessment: Fevers Source pulm Leukocytosis improved COVID-19 positive. Status post remdesivir, steroids Acute hypoxic respiratory failure/ARDS /pneumonia Lt pleural effusion H/O Bilateral pulmonary emboli. Hypertension. Bacteremia 07/23 1/2 bottles staph hominis likely contaminant Repeat blood cultures staph capitis likely contaminant Repeat BC 08/06 staph pettenkori likely contaminant Enterobacter UTI and pneumonia Treated Plan: Plan of Care Cont zyvox and Merrem 08/14 f/u cults and lab Awaiting Lt,thoracocentesis today RUE PICC line DC'd Fernandez changed 07/26 F/U c diff pcr Tracheal aspirate for afb stain neg so far,, culture pending D/W JAMI LUCAS MD Aug 15, 2020 07:51
[2020-08-15 08:14] LABS: CALCIUM 7.9 mg/dL (8.5-10.1); CREATININE 0.6 mg/dL (0.7-1.3); GFR 142.6; MAGNESIUM 1.9 mg/dL (1.8-2.4); POTASSIUM 3.2 mmol/L (3.5-5.1)
[2020-08-15] MEDS: PANTOPRAZOLE IV PUSH 40 MG VIAL. IVP SCH (08:42)
[2020-08-15] MEDS: ZINC SULFATE 220 MG CAPSULE. PO SCH (08:42)
[2020-08-15] MEDS: CHOLECALCIFEROL (VITAMIN D3) 5,000 UNIT CAPSULE PO SCH (08:42)
[2020-08-15] MEDS: LINEZOLID 600 MG TABLET PO SCH ×2 (08:42→20:00)
[2020-08-15] MEDS: MAGNESIUM SULFATE 4GM 100 ML IV SCH (08:43)
[2020-08-15] MEDS ORDERED: POTASSIUM BICARB 20 MEQ EFFERVESCENT TABLET. PEG ONE (09:45)
--- NOTE | 2020-08-15 09:49 | PDOC ---
Date of Service: DATE: 08/15/20 TIME: 09:43 Objective: Objective: D/w nurse - PEG functioning, rate 30cc so far, no recurrent vomiting. Plans for thoracentesis/possible chest tube. Vital Signs: Vital Signs Date Time Temp Pulse Resp B/P (MAP) Pulse Ox O2 Delivery O2 Flow Rate FiO2 08/15/20 07:15 100 Ventilator 08/15/20 07:00 100.4 62 27 120/67 (84) 100.4 Labs: Laboratory Tests Test 08/14/20 22:15 08/15/20 00:11 08/15/20 05:34 08/15/20 06:37 Heparin Anti-Xa Act, Unfractionated 0.29 IU/mL 0.66 IU/mL Glucose (Fingerstick) 149 mg/dL 157 mg/dL White Blood Count 11.3 x10^3/uL Red Blood Count 2.72 x10^6/uL Hemoglobin 8.3 g/dL Hematocrit 25.5 % Mean Corpuscular Volume 94 fL Mean Corpuscular Hemoglobin 31 pg Mean Corpuscular Hemoglobin Concent 33 g/dL Red Cell Distribution Width 16.5 % Platelet Count 308 x10^3/uL Sodium Level 138 mmol/L Potassium Level 3.2 mmol/L Chloride Level 101 mmol/L Carbon Dioxide Level 29 mmol/L Anion Gap 8 Blood Urea Nitrogen 9 mg/dL Creatinine 0.6 mg/dL Estimated GFR (Cockcroft-Gault) 142.6 Glucose Level 143 mg/dL Calcium Level 7.9 mg/dL Magnesium Level 1.9 mg/dL URINE CULTURE Final Final No Growth on 08/15/20 at 0847 Imaging: UE US 08/14 IMPRESSION: 1. No evidence of deep venous thrombosis in the bilateral upper extremity veins although there is poor visualization of the left ulna vein. Chest CT 08/14 IMPRESSION: 1. Marked interval enlargement of left lateral effusion. This could be causing some mass effect on the mediastinum. 2. Extensive pleural-parenchymal scarring and patchy airspace opacities in the lungs compatible with the sequelae of atypical pneumonia. PE: GEN: NAD LUNGS: trach HEART: RRR ABD: PEG in place, soft, non-tender NEURO/PSYCH: awake and alert, understands [place] A/P: Resp failure s/p tracheostomy and PEG Fever, bacteremia, abnromal chest imaging -- Continue support GI-english. Justicifation of Admission Dx: Justifications for Admission: Justification of Admission Dx: Yes LYNETTE CELIS Aug 15, 2020 09:49
--- NOTE | 2020-08-15 10:02 | PDOC ---
[employer] PROGRESS NOTE Date of Service DOS: DATE: 08/15/20 TIME: 10:01 Chief Complaint Chief Complaint A/P: Acute hypoxic respiratory failure requiring VENT SUPPORT STATUS post trach placement 08/06/2020 S/P Peg tube placement 08/09 Acute hypoxic respiratory failure/ARDS /pneumonia Bilateral perihilar and basilar opacities, progressed in the left base. 12 COVID-19 Subsegmental bilateral PE Sepsis NSTEMI AKA Lactic acidosis Hyponatremia, RESOLVED hgb 6.5 07-27, transfused 1 unit prbc's - bled on eliquis, now on heparin GTT hypokalemia, on replacement Left pleural effusion Plan: Spontaneous breathing trial today attempt to wean to extubate Appreciate pulmonology recommendations Continue current ventilatory support, currently on 70% and PEEP of 6, avoid increasing PEEP 2/2 risk of barotrauma Follow chest x-ray and ABG, vent management as per pulmonology Heparin has been transitioned to Xarelto Solu-Medrol 40 mg every 12 hours Appreciate ID recommendationscontinue Remdesivir and empiric antibiotics IV fluids Discussed with RN and JAVIER. Antibiotics per ID-- off ABX, infectious disease following increasing leukocytosis has completed full course of remdesivir continue tube feeding for nutritional support History of Present Illness History of Present Illness 08/12: No acute events overnight. Patient has T-max of 99.7. Currently on minimal vent settings.> 50% time spent in patient chart, labs, and imaging review and in discussion with RN and JAVIER 08/13: Overnight Tmax 100.6F. Tires out easily on vent. 08/14: 101.5 F overnight. Stool sample on urine sample taken today. No growth on cultures as of yet. Still requiring vent support via his trach. No residuals on tube feeds. CT chest with left loculated effusion 100.4 F overnight. Plan for thoracentesis today. Still requiring vent support via trach. 08/11/2020 No acute events overnight. Patient with T-max of 100.8 overnight. Currently on minimal vent settings. Trached and pegged. Social work following for Medicare approval.> 50% time spent in patient chart, labs, and imaging review and in discussion with RN and JAVIER 08/10/2020 no acute events overnight. Patient is on minimal vent settings. PEG tube placed yesterday. Will attempt to wean to extubate today.> 50% time spent in patient chart, labs, and imaging review and in discussion with RN and SW 08/09/2020 No acute events overnight. T-max of 100.0 F. Patient is on minimal ventilatory settings.> 50% time spent in patient chart, labs, and imaging review and in discussion with RN and SW 08/08/2020 Patient tolerating trach and ventilatory goldy support on 40% FiO2 and 5 of PEEP. Pending PEG tube placement tomorrow.> 50% time spent in patient chart, labs, and imaging review and in discussion with RN and JAVIER 08/07/2020 No acute events overnight. Fever T-max of 101.1. Trach was placed yesterday. On minimal vent settings.> 50% time spent in patient chart, labs, and imaging review and in discussion with RN and JAVIER 08/06/2020 No acute events overnight. Patient is afebrile. Currently on minimal vent settings. Pending trach today. Patient's chart, labs, images were reviewed and discussed with RN A total of 35 minutes of critical care time was spent in reviewing chart, labs, and images. Discussed with RN and SW. 08/05/2020 Patient seen and evaluated. No acute events, febrile overnight. Mechanically ventilated with FiO2 40%, PEEP 6. Plan for trach Thursday. 08/04/2020 Patient seen in [facility] ICU. Still with low-grade fevers. Mechanically ventilated, FiO2 40%, PEEP 6. No acute change, plan for trach Thursday. 08/03/2020 Patient seen in [facility]- ICU. Still with low-grade fever. He remains on vent with FiO2 100%, PEEP 12. Plan for trach on Thursday, and PEG at some point after. 08/02/2020 Patient seen and evaluated in [facility] ICU. He is febrile this morning. Still intubated mechanically ventilated with FiO2 40 %, PEEP 6. Plans for tracheostomy today. 08/01/2020 Patient seen in [facility] ICU. Patient remains slightly febrile. Mechanically ventilated, FiO2 45%, PEEP 6. Tracheostomy unable to perform yesterday, general surgery to attempt again today. Discussed with RN. 07/31/2020 Patient still spiking fevers. Patient remains on vent, FiO2 45%, PEEP 6. Tracheostomy tentatively planned for today. 07/30/2020 Patient seen in [facility]-19 ICU. He is febrile on vent, FiO2 45%, PEEP 6. Will attempt to speak with family about decision on trach and PEG tube. Discussed with RN. t max 102 f fio2 50% 07/21/2020 Patient no acute events reported overnight. Patient continues to require a lot of support from vent. Discussed with RN 09/19/2019 Patient continues to be pretty much the same , fio2 is at 70%, heparin 07/19/2020 Patient hypotensive today, we will follow recommendations from critical healthcare management. Vent management as per absence management consultant, no other complaints. 07/18/2020 Patient with no acute events reported overnight, fio2 is now at 75% PEEP of 6, Vent management as per pulmonary absence management consultant slight increase in temperature noted over the lat 24 hours. Will continue to follow 07/17/2020 Patient with no acute events reported overnight, contineus to require an fio2 of 80%, continue with supportive measures. 07/16/2020 Patient with no acute events reported overnight, patient continues to require quite a bit of FiO2 at 80%. Vent management as per absence management consultant, will place a call to family members after rounding. Discussed with RN 07/15/2020 Patient seen and examined bedside in the ICU. FiO2 80% PEEP of 6.pH 7.56, PCO2 32, PO2 56, HCO3 28. Will adjust respiratory rate accordingly to correct pH.> 50% time spent in patient chart, labs, and imaging review and in discussion with RN and JAVIER 07/14/2020 Patient seen and examined bedside. FiO2 65% and PEEP of 6 on vent. ABG: pH 7.26, PCO2 77, PO2 114, HCO3 34. We will adjust respiratory rate or tidal volume to titrate pH.> 50% time spent in patient chart, labs, and imaging review and in discussion with RN and JAVIER 07/13/2020 No acute events overnight. Patient examined bedside sedated and intubated. FiO2 70% PEEP of 6. Improved ABGs.> 50% time spent in patient chart, labs, and imaging review and in discussion with RN and JAVIER 07/12/2020 Patient seen and examined in the ICU. Sedated and intubated. FiO2 65, PEEP of 8 with improved oxygenation. pH 7.4, PCO2 48, PO2 94, HCO3 30. +500 cc fluid balance.> 50% time spent in patient chart, labs, and imaging review and in discussion with RN and JAVIER 07/11/2020 Patient seen and examined bedside in the ICU. Patient continues to be intubated and sedated. FiO2 75%, PEEP of 10. pH 7.40, PCO2 44, PO2 is 135, HCO3 26. Can likely decrease FiO2 due to improved oxygenation. +173 cc in the past 24 hours 07/10/2020 Patient seen and examined bedside in ICU. Patient is intubated and sedated. FiO2 90%, PEEP of 10, respiratory rate of 30. ABG: pH is 7.41, PCO2 42, PO2 113, HCO3 26. 07/09/2020 Patient seen and examined in the ICU. Intubated and sedated. Vent settings FiO2 90%, PEEP of 10, respiratory rate of 30. 07/05: Patient seen in ICU, still intubated and sedated. COVID-19 pending. Patient remains on heparin infusion. Discussed with RN, will try to have central line placed per anesthesia. 07/06: Patient seen in ICU. Still FiO2 100% on vent and sedated. COVID-19 positive. Continue heparin infusion, Zosyn, steroids. 07/07: Covid positive patient seen in ICU. On vent with FiO2 100%, PEEP 10. Continue remdesivir, steroids, Zosyn. Continue to monitor 07/08: Patient seen in Covid ICU. Still on vent with FiO2 100%, PEEP 10. Afebrile. No acute events overnight. Continue steroids, antibiotics, and remdesivir. Patient is 49-year-old male with past medical history of hypertension, who presents to the ED with complaints of worsening shortness of breath over the past 5 days. Associated sore throat, fatigue, and generalized weakness. Patient was reportedly tested for COVID-19 last Thursday, but he had negative test results. His symptoms acutely worsened yesterday. Upon arrival to the ER his oxygen saturation was 60% on room air. He was placed on BiPAP and admitted to the ICU. Patient was subsequently intubated due to worsening respiratory failure. Vitals/I&O Vitals/I&O: Vital Signs Date Time Temp Pulse Resp B/P (MAP) Pulse Ox O2 Delivery O2 Flow Rate FiO2 08/15/20 07:15 100 Ventilator 08/15/20 07:00 100.4 62 27 120/67 (84) 100.4 I & O 08/14/20 08/14/20 08/15/20 15:00 23:00 07:00 Intake Total 800 ml 695 ml 1129 ml Output Total 650 ml 700 ml 900 ml Balance 150 ml -5 ml 229 ml Physical Exam Physical Exam: General on vent,alert HEENT normocephalic atraumatic , trach LUNGS: Coarse breath sounds anteriorly HEART: S1-S2 no murmurs ABDOMEN: mildly distended, soft bowel sounds present Fernandez in place,fecal tube in place SKIN: No generalized rash Right upper extremity PICC line removed PIVs Clean Neuro alert awake General: Other (sedated ) Lungs: Clear Labs Labs: Laboratory Tests Test 08/14/20 22:15 08/15/20 00:11 08/15/20 05:34 08/15/20 06:37 Heparin Anti-Xa Act, Unfractionated 0.29 IU/mL (0.30-0.70) 0.66 IU/mL (0.30-0.70) Glucose (Fingerstick) 149 mg/dL (70-99) 157 mg/dL (70-99) White Blood Count 11.3 x10^3/uL (4.0-11.0) Red Blood Count 2.72 x10^6/uL (4.30-5.70) Hemoglobin 8.3 g/dL (13.0-17.5) Hematocrit 25.5 % (39.0-53.0) Mean Corpuscular Volume 94 fL (79-100) Mean Corpuscular Hemoglobin 31 pg (25-35) Mean Corpuscular Hemoglobin Concent 33 g/dL (31-37) Red Cell Distribution Width 16.5 % (11.5-14.5) Platelet Count 308 x10^3/uL (140-400) Sodium Level 138 mmol/L (136-145) Potassium Level 3.2 mmol/L (3.5-5.1) Chloride Level 101 mmol/L (98-107) Carbon Dioxide Level 29 mmol/L (21-32) Anion Gap 8 (6-14) Blood Urea Nitrogen 9 mg/dL (8-26) Creatinine 0.6 mg/dL (0.7-1.3) Estimated GFR (Cockcroft-Gault) 142.6 Glucose Level 143 mg/dL (70-99) Calcium Level 7.9 mg/dL (8.5-10.1) Magnesium Level 1.9 mg/dL (1.8-2.4) Assessment and Plan Assessmemt and Plan Problems Medical Problems: (1) Acute respiratory failure with hypoxia Status: Acute (2) PRIYA (acute kidney injury) Status: Acute (3) Elevated troponin I level Status: Acute (4) Pulmonary emboli Status: Acute (5) Suspected COVID-19 virus infection Status: Acute Comment Review of Relevant I have reviewed the following items trino (where applicable) has been applied. Medications: Current Medications Medications (Trade) Dose Ordered Sig/Natalee Route PRN Reason Start Time Stop Time Status Last Admin Dose Admin Insulin Human Lispro (HumaLOG) 0-7 UNITS Q6HRS SQ 08/14/20 12:00 08/15/20 05:38 Justifications for Admission Other Justification NEIL PATEL MD Aug 15, 2020 10:02
--- NOTE | 2020-08-15 10:39 | PDOC ---
PULMONARY PROGRESS NOTES DATE: 08/15/20 TIME: 10:34 Subjective PT. remains on vent support , 40% FiO2 and a PEEP of 6 Status post tracheostomy on 08/06/2020 and S/P peg tube on 08/09 Continues to have fevers Pressure support yesterday X2 for short periods No other concerns from nursing overnight Vitals Vital Signs Date Time Temp Pulse Resp B/P (MAP) Pulse Ox O2 Delivery O2 Flow Rate FiO2 08/15/20 07:15 100 Ventilator 08/15/20 07:00 100.4 62 27 120/67 (84) 100.4 Comments General: Alert, No acute distress Lungs: Clear Cardiovascular: S1, S2 Abdomen: Soft Neuro Exam: Alert Extremities: No Edema Skin: Warm, Dry Labs Laboratory Tests Test 08/13/20 11:35 08/13/20 14:10 08/13/20 19:20 08/13/20 23:35 White Blood Count 11.6 x10^3/uL (4.0-11.0) Red Blood Count 2.87 x10^6/uL (4.30-5.70) Hemoglobin 9.1 g/dL (13.0-17.5) Hematocrit 26.9 % (39.0-53.0) Mean Corpuscular Volume 94 fL (79-100) Mean Corpuscular Hemoglobin 32 pg (25-35) Mean Corpuscular Hemoglobin Concent 34 g/dL (31-37) Red Cell Distribution Width 16.4 % (11.5-14.5) Platelet Count 386 x10^3/uL (140-400) Neutrophils (%) (Auto) 72 % (31-73) Lymphocytes (%) (Auto) 13 % (24-48) Monocytes (%) (Auto) 14 % (0-9) Eosinophils (%) (Auto) 0 % (0-3) Basophils (%) (Auto) 1 % (0-3) Neutrophils # (Auto) 8.3 x10^3/uL (1.8-7.7) Lymphocytes # (Auto) 1.5 x10^3/uL (1.0-4.8) Monocytes # (Auto) 1.6 x10^3/uL (0.0-1.1) Eosinophils # (Auto) 0.0 x10^3/uL (0.0-0.7) Basophils # (Auto) 0.1 x10^3/uL (0.0-0.2) Heparin Anti-Xa Act, Unfractionated 0.43 IU/mL (0.30-0.70) 0.45 IU/mL (0.30-0.70) Potassium Level 3.4 mmol/L (3.5-5.1) 3.7 mmol/L (3.5-5.1) Vancomycin Level Trough 19.6 mcg/mL (10.0-20.0) Vancomycin Last Dose Date Unk Vancomycin Last Dose Time Unk Magnesium Level 2.0 mg/dL (1.8-2.4) Test 08/14/20 06:05 08/14/20 06:30 08/14/20 08:15 08/14/20 22:15 Heparin Anti-Xa Act, Unfractionated 0.28 IU/mL (0.30-0.70) 0.29 IU/mL (0.30-0.70) White Blood Count 11.9 x10^3/uL (4.0-11.0) Red Blood Count 2.75 x10^6/uL (4.30-5.70) Hemoglobin 8.4 g/dL (13.0-17.5) Hematocrit 25.7 % (39.0-53.0) Mean Corpuscular Volume 94 fL (79-100) Mean Corpuscular Hemoglobin 31 pg (25-35) Mean Corpuscular Hemoglobin Concent 33 g/dL (31-37) Red Cell Distribution Width 16.5 % (11.5-14.5) Platelet Count 333 x10^3/uL (140-400) Neutrophils (%) (Auto) 69 % (31-73) Lymphocytes (%) (Auto) 15 % (24-48) Monocytes (%) (Auto) 14 % (0-9) Eosinophils (%) (Auto) 1 % (0-3) Basophils (%) (Auto) 1 % (0-3) Neutrophils # (Auto) 8.2 x10^3/uL (1.8-7.7) Lymphocytes # (Auto) 1.8 x10^3/uL (1.0-4.8) Monocytes # (Auto) 1.7 x10^3/uL (0.0-1.1) Eosinophils # (Auto) 0.1 x10^3/uL (0.0-0.7) Basophils # (Auto) 0.1 x10^3/uL (0.0-0.2) Sodium Level 137 mmol/L (136-145) Potassium Level 3.5 mmol/L (3.5-5.1) Chloride Level 102 mmol/L (98-107) Carbon Dioxide Level 30 mmol/L (21-32) Anion Gap 5 (6-14) Blood Urea Nitrogen 6 mg/dL (8-26) Creatinine 0.7 mg/dL (0.7-1.3) Estimated GFR (Cockcroft-Gault) 119.4 BUN/Creatinine Ratio 9 (6-20) Glucose Level 172 mg/dL (70-99) Calcium Level 8.0 mg/dL (8.5-10.1) Total Bilirubin 0.2 mg/dL (0.2-1.0) Aspartate Amino Transf (AST/SGOT) 18 U/L (15-37) Alanine Aminotransferase (ALT/SGPT) 23 U/L (16-63) Alkaline Phosphatase 123 U/L (46-116) Total Protein 6.0 g/dL (6.4-8.2) Albumin 1.5 g/dL (3.4-5.0) Albumin/Globulin Ratio 0.3 (1.0-1.7) Urine Collection Type Unknown Urine Color Yellow Urine Clarity Cloudy Urine pH 7.5 (<5.0-8.0) Urine Specific [place] 1.010 (1.000-1.030) Urine Protein Negative mg/dL (NEG-TRACE) Urine Glucose (UA) Negative mg/dL (NEG) Urine Ketones (Stick) Negative mg/dL (NEG) Urine Blood Large (NEG) Urine Nitrite Negative (NEG) Urine Bilirubin Negative (NEG) Urine Urobilinogen Dipstick 0.2 mg/dL (0.2 mg/dL) Urine Leukocyte Esterase Trace (NEG) Urine RBC 11-20 /HPF (0-2) Urine WBC 5-10 /HPF (0-4) Urine Transitional Epithelial Cells Occ /LPF Urine Amorphous Sediment Present /HPF Urine Bacteria Few /HPF (0-FEW) Test 08/15/20 00:11 08/15/20 05:34 08/15/20 06:37 Glucose (Fingerstick) 149 mg/dL (70-99) 157 mg/dL (70-99) White Blood Count 11.3 x10^3/uL (4.0-11.0) Red Blood Count 2.72 x10^6/uL (4.30-5.70) Hemoglobin 8.3 g/dL (13.0-17.5) Hematocrit 25.5 % (39.0-53.0) Mean Corpuscular Volume 94 fL (79-100) Mean Corpuscular Hemoglobin 31 pg (25-35) Mean Corpuscular Hemoglobin Concent 33 g/dL (31-37) Red Cell Distribution Width 16.5 % (11.5-14.5) Platelet Count 308 x10^3/uL (140-400) Heparin Anti-Xa Act, Unfractionated 0.66 IU/mL (0.30-0.70) Sodium Level 138 mmol/L (136-145) Potassium Level 3.2 mmol/L (3.5-5.1) Chloride Level 101 mmol/L (98-107) Carbon Dioxide Level 29 mmol/L (21-32) Anion Gap 8 (6-14) Blood Urea Nitrogen 9 mg/dL (8-26) Creatinine 0.6 mg/dL (0.7-1.3) Estimated GFR (Cockcroft-Gault) 142.6 Glucose Level 143 mg/dL (70-99) Calcium Level 7.9 mg/dL (8.5-10.1) Magnesium Level 1.9 mg/dL (1.8-2.4) Laboratory Tests Test 08/14/20 22:15 08/15/20 00:11 08/15/20 05:34 08/15/20 06:37 Heparin Anti-Xa Act, Unfractionated 0.29 IU/mL (0.30-0.70) 0.66 IU/mL (0.30-0.70) Glucose (Fingerstick) 149 mg/dL (70-99) 157 mg/dL (70-99) White Blood Count 11.3 x10^3/uL (4.0-11.0) Red Blood Count 2.72 x10^6/uL (4.30-5.70) Hemoglobin 8.3 g/dL (13.0-17.5) Hematocrit 25.5 % (39.0-53.0) Mean Corpuscular Volume 94 fL (79-100) Mean Corpuscular Hemoglobin 31 pg (25-35) Mean Corpuscular Hemoglobin Concent 33 g/dL (31-37) Red Cell Distribution Width 16.5 % (11.5-14.5) Platelet Count 308 x10^3/uL (140-400) Sodium Level 138 mmol/L (136-145) Potassium Level 3.2 mmol/L (3.5-5.1) Chloride Level 101 mmol/L (98-107) Carbon Dioxide Level 29 mmol/L (21-32) Anion Gap 8 (6-14) Blood Urea Nitrogen 9 mg/dL (8-26) Creatinine 0.6 mg/dL (0.7-1.3) Estimated GFR (Cockcroft-Gault) 142.6 Glucose Level 143 mg/dL (70-99) Calcium Level 7.9 mg/dL (8.5-10.1) Magnesium Level 1.9 mg/dL (1.8-2.4) Comments CXR 08/14 IMPRESSION: worsening loculated left effusion, bilateral infiltrates CT CHEST 08/14 1. Marked interval enlargement of left lateral effusion. This could be causing some mass effect on the mediastinum. 2. Extensive pleural-parenchymal scarring and patchy airspace opacities in the lungs compatible with the sequelae of atypical pneumonia. Electronically signed by: Gosia Li MD (08/14/2020 1:28 PM) [id number] Impression . IMPRESSION: 1. Acute hypoxemic respiratory failure./ALI/ARDS due to COVID -19 2. Acute pulmonary embolism 3. COVID-19 pnemonia.now with persistent fevers, suspect VAP/ Left sided empyema 5. Hypertension. 6. History of bronchitis. 7. Elevated troponin. 8. Acute kidney injury. 9. Leukocytosis. 10. Covid-[address] chest 08/14 , large left effusion, suspect empyema Plan . Continue current ventilatory support, FiO2 40% and a PEEP of 6, Pressure support as tolerate during the day and A/C overnight, placed on pressure support of 16 this am, tolerating well will do TS TIRAL later today left thoracentesis today. consent obtained from Niece, she agrees Precedex if needed Status post tracheostomy 08/06 and S/P Peg tube placement 08/09 continue heparin gtt hold for procedure. monitor hemoglobin reviewed chest x-ray and ABG, Follow cardiology recommendations Antibiotics per ID--AFB negative, repeat cultures negative, continues to have fevers, currently on humberto, zyvox Has completed full course of remdesivir Continue tube feeding for nutritional support DVT/GI prophylaxis,Protonix-- heparin gtt venous dopplers lower extremity to document DVT Discussed with RN and RT Pt. is FULL CODE critically ill Critical care time 30 min NERY SALINAS MD Aug 15, 2020 10:38
[2020-08-15] MEDS ORDERED: LIDOCAINE WITH 8.4% SOD BICARB 3 ML DISP.SYRIN. ONE (12:41)
[2020-08-15] MEDS ORDERED: LIDOCAINE WITH 8.4% SOD BICARB 3 ML DISP.SYRIN. INJ ONE (13:00)
[2020-08-15] MEDS ORDERED: fentaNYL PF VIAL 100 MCG/2 ML VIAL ONE (13:27)
[2020-08-15] MEDS ORDERED: fentaNYL PF VIAL 100 MCG/2 ML VIAL IVP ONE (14:15)
--- NOTE | 2020-08-15 15:19 | RAD ---
Bilateral lower extremity venous duplex ultrasound study without comparison for history of pulmonary embolism. TECHNIQUE AND FINDINGS: Real-time grayscale and color and spectral Doppler evaluation of the veins of both lower extremities is performed. The bilateral common femoral, femoral, and popliteal veins are widely patent demonstrating normal compressibility and augmentation of flow. There is normal color fl ow to the posterior tibial and peroneal veins bilaterally. IMPRESSION: 1. No evidence of DVT in either lower extremity. Electronically signed by: Conor Larry MD (08/15/2020 3:17 PM) [id number]
--- NOTE | 2020-08-15 15:51 | NUR ---
SS following up with discharge planning. SS reviewed pt chart and discussed with pt RN. Pt is currently on trach shield. COVID19 negative. Pt had left chest tube placed today. Pt had ultrasound of lower extremities. Off Precedex now. Pt on IV Meropenem. Peg tube in place. Not stable. SS will continue to follow for discharge planning.
--- NOTE | 2020-08-15 16:23 | RAD ---
Ultrasound-guided left thoracostomy tube placement 08/15/2020 INDICATION: Complex left pleural effusion Discussion: + The procedure was explained in its entirety to the patient or the patients designated patient intake representative by a member of the treatment team, including a discussion of the risks, benefits and commonly accepted alternatives to the procedure, as well as the expected consequences of no therapy whatsoever. Discussion of the risks included, but was not limited to, those that are most frequent and those that are rare but possibly severe or life-threatening, as well as the possibility of unforeseen complications. All elements of maximal sterile barrier technique including the use of a cap, mask, sterile gown, sterile gloves, large sterile sheet, appropriate hand hygiene, and 2% chlorhexidine for cutaneous antisepsis (or acceptable alternative antiseptic per current guidelines) were followed for this procedure. Ultrasound evaluation demonstrates a multiloculated left pleural effusion. 1% lidocaine was administered for local anesthesia. Under direct ultrasound guidance left pleural space was accessed with a 5 Macanese sheath needle. A guidewire was advanced to the pleural space over which following dilatation a 10 Macanese pigtail drain was placed. No immediate complications were identified. The catheter was secured in place. Sterile dressings were applied. Impression: Ultrasound-guided left thoracostomy tube placement
[2020-08-15] MEDS: ACETAMINOPHEN 650 MG/20.3 ML SOLUTION. PEG PRN (20:00)
[2020-08-15] MEDS: fentaNYL PF VIAL 100 MCG/2 ML VIAL IVP PRN (20:06)
[2020-08-16] VITALS (22 sets, daily range): BP systolic 98–149; BP diastolic 52–90
[2020-08-16] MEDS: DEXMEDETOMIDINE 400 MCG in IV NORMAL SALINE 100ML 96 ML IV PRN ×2 (03:51→18:28)
[2020-08-16] MEDS: MEROPENEM 500 MG in IV NORMAL SALINE 50ML 50 ML IV SCH ×3 (05:24→18:05)
[2020-08-16] MEDS: INSULIN LISPRO 300 UNITS/3 ML VIAL. SQ SCH ×3 (06:00→18:00)
--- NOTE | 2020-08-16 07:30 | PDOC ---
Infectious Disease Note Subjective: Subjective Patient with trach on vent T-max 100.8 Underwent left thoracocentesis and CTS yesterday Vital Signs: Vital Signs Vital Signs Date Time Temp Pulse Resp B/P (MAP) Pulse Ox O2 Delivery O2 Flow Rate FiO2 08/16/20 06:00 53 20 121/76 (91) 100 Ventilator 08/16/20 04:00 99.7 99.7 08/15/20 16:00 10.0 Physical Exam: PHYSICAL EXAM General on vent,alert HEENT normocephalic atraumatic , trach LUNGS: Clear anteriorly, left CTS HEART: S1-S2 no murmurs ABDOMEN: mildly distended, soft bowel sounds present Fernandez in place,fecal tube in place SKIN: No generalized rash Right upper extremity PICC line removed PIVs Clean Neuro alert awake Medications: Inpatient Meds: Current Medications Medications (Trade) Dose Ordered Sig/Natalee Start Time Stop Time Status Last Admin Dose Admin Acetaminophen (Tylenol Supp) 650 mg PRN Q6HRS PRN 08/06/20 20:45 08/07/20 19:28 650 MG Acetaminophen (Tylenol) 650 mg PRN Q6HRS PRN 07/12/20 12:00 08/15/20 20:00 650 MG Apixaban (Eliquis) 5 mg BID 07/23/20 09:00 07/27/20 12:19 DC 07/26/20 20:31 5 MG Ascorbic Acid (Vitamin C) 500 mg Q6HRS 07/04/20 18:00 08/05/20 08:39 DC 08/05/20 06:07 500 MG Azithromycin (Zithromax) 500 mg 1X ONCE 07/03/20 19:15 07/03/20 19:19 DC 07/03/20 20:11 500 MG Bupivacaine HCl/ Epinephrine Bitart (Sensorcain-Epi 0.5%-1:417134 Mpf) 30 ml 1X ONCE 08/06/20 06:30 08/06/20 06:31 DC 08/06/20 15:15 1 ML Cefazolin Sodium/ Dextrose 50 ml @ 100 mls/hr 1X ONCE 08/09/20 11:00 08/09/20 11:29 DC 08/09/20 11:04 100 MLS/HR Ceftriaxone Sodium (Rocephin) 1 gm 1X ONCE 07/03/20 19:15 07/03/20 19:19 DC 07/03/20 20:11 1 GM Cellulose (Surgicel Fibrillar 1x2) 1 each STK-MED ONCE 07/31/20 13:08 07/31/20 13:08 DC Cellulose (Surgicel Hemostat 4x8) 1 each STK-MED ONCE 08/06/20 14:10 08/06/20 14:11 DC Daptomycin 470 mg/ Sodium Chloride 50 ml @ 100 mls/hr Q24H 08/01/20 09:00 08/05/20 11:20 DC 08/05/20 09:24 100 MLS/HR Dexmedetomidine HCl 400 mcg/ Sodium Chloride 100 ml @ 0 mls/hr CONT PRN 08/11/20 10:00 08/16/20 03:51 10.3 MLS/HR Dextrose (Dextrose 50%-Water Syringe) 12.5 gm PRN Q15MIN PRN 08/14/20 08:00 UNV Enoxaparin Sodium (Lovenox 150mg Syringe) 150 mg 1X ONCE 07/03/20 23:00 07/03/20 23:01 DC 07/03/20 22:45 150 MG Etomidate (Amidate) 10 mg 1X ONCE 07/04/20 09:30 07/04/20 09:31 DC 07/04/20 09:37 10 MG Fentanyl Citrate (Fentanyl 2ml Vial) 50 mcg 1X ONCE 08/15/20 14:15 08/15/20 14:18 DC 08/15/20 14:29 50 MCG Furosemide (Lasix) 20 mg 1X ONCE 07/29/20 06:30 07/29/20 06:31 DC 07/29/20 06:35 20 MG Heparin Sodium (Porcine) (Heparin Sodium) 1,250 unit PRN Q6HRS PRN 08/11/20 14:30 08/14/20 22:56 1,250 UNIT Heparin Sodium/ Dextrose 250 ml @ 0 mls/hr CONT PRN 08/11/20 14:30 08/15/20 23:18 27.1 MLS/HR Hydromorphone HCl (Dilaudid) 0.5 mg PRN Q10MIN PRN 08/06/20 07:00 08/07/20 06:59 DC Info (Anti-Coagulation Monitoring By Pharmacy) 1 each PRN DAILY PRN 07/16/20 08:15 08/14/20 09:40 1 EACH Info (CONTRAST GIVEN -- Rx MONITORING) 1 each PRN DAILY PRN 07/03/20 20:45 07/05/20 20:44 DC Info (Icu Electrolyte Protocol) 1 ea CONT PRN PRN 07/24/20 15:45 Insulin Human Lispro (HumaLOG) 0-7 UNITS Q6HRS 08/14/20 12:00 08/15/20 23:18 3 UNITS Iohexol (Omnipaque 350 Mg/ml) 90 ml 1X ONCE 07/03/20 20:45 07/03/20 20:46 DC 07/03/20 21:00 90 ML Levofloxacin/ Dextrose 150 ml @ 100 mls/hr Q24H 08/02/20 09:00 08/05/20 11:20 DC 08/05/20 07:16 100 MLS/HR Lidocaine HCl (Buffered Lidocaine 1%) 6 ml 1X ONCE 08/15/20 13:00 08/15/20 13:01 DC 08/15/20 13:07 5 ML Lidocaine HCl (Xylocaine-Mpf 1% 2ml Vial) 2 ml PRN 1X PRN 08/06/20 07:00 08/07/20 06:59 DC Linezolid (Zyvox) 600 mg BID 08/14/20 09:00 08/15/20 20:00 600 MG Linezolid/Dextrose 300 ml @ 300 mls/hr Q12HR 07/27/20 12:30 07/31/20 07:36 DC 07/30/20 21:47 300 MLS/HR Lorazepam (Ativan Inj) 2 mg PRN Q1HR PRN 07/21/20 12:30 07/24/20 06:51 2 MG Magnesium Sulfate 100 ml @ 50 mls/hr DAILY 08/13/20 00:00 08/16/20 00:00 DC 08/15/20 08:43 50 MLS/HR Meclizine HCl (Antivert) 25 mg PRN DAILY PRN 08/12/20 23:00 Meropenem 500 mg/ Sodium Chloride 50 ml @ 100 mls/hr Q6HRS 08/14/20 09:00 08/16/20 05:24 100 MLS/HR Methylprednisolone Sodium Succinate (SOLU-Medrol 40MG VIAL) 40 mg DAILY 07/21/20 09:00 07/22/20 09:36 DC 07/22/20 09:08 40 MG Midazolam HCl (Versed) 5 mg STK-MED ONCE 07/04/20 09:21 07/04/20 09:21 DC Morphine Sulfate (Morphine Sulfate) 1 mg PRN Q10MIN PRN 08/06/20 07:00 08/07/20 06:59 DC Multi-Ingred Cream/Lotion/Oil/ Oint (Artificial Tears Eye Ointment) 1 wenceslao PRN Q1HR PRN 07/18/20 10:45 07/27/20 17:19 1 WENCESLAO Norepinephrine Bitartrate 8 mg/ Dextrose 258 ml @ 16.061 mls/ hr CONT PRN 07/04/20 13:15 07/18/20 11:01 DC 07/05/20 00:33 28.909 MLS/HR Ondansetron HCl (Zofran) 4 mg PRN Q6HRS PRN 08/06/20 07:00 08/07/20 06:59 DC Pantoprazole Sodium (PROTONIX VIAL for IV PUSH) 40 mg DAILYAC 07/04/20 12:30 08/15/20 08:42 40 MG Piperacillin Sod/ Tazobactam Sod (Zosyn Per Pharmacy) 1 each PRN DAILY PRN 07/04/20 12:00 07/18/20 07:46 DC Piperacillin Sod/ Tazobactam Sod 3.375 gm/Sodium Chloride 50 ml @ 100 mls/hr Q6HRS 07/04/20 12:00 07/17/20 11:11 DC 07/17/20 05:10 100 MLS/HR Piperacillin Sod/ Tazobactam Sod 4.5 gm/Sodium Chloride 100 ml @ 200 mls/hr Q6HRS 07/24/20 12:00 07/26/20 10:53 DC 07/26/20 05:36 200 MLS/HR Potassium Bicarbonate (Potassium Effervescent Tablet) 40 meq 1X ONCE 08/15/20 09:45 08/15/20 09:46 DC 08/15/20 10:25 40 MEQ Potassium Chloride/Water 100 ml @ 100 mls/hr Q1H 08/13/20 13:00 08/13/20 16:59 DC 08/13/20 18:10 100 MLS/HR Potassium Phosphate 13.6 mmol/Sodium Chloride 254.5333 ml @ 62.5 mls/hr Q4H 07/24/20 15:30 07/25/20 03:29 UNV Prochlorperazine Edisylate (Compazine) 10 mg PRN Q6HRS PRN 08/12/20 21:30 08/12/20 21:55 10 MG Propofol 100 ml @ 0 mls/hr CONT PRN 07/04/20 09:15 08/11/20 06:42 14.9 MLS/HR Remdesivir 100 mg/ Sodium Chloride 230 ml @ 460 mls/hr Q24H 07/07/20 14:30 07/10/20 14:59 DC 07/10/20 13:59 460 MLS/HR Remdesivir 200 mg/ Sodium Chloride 210 ml @ 210 mls/hr 1X ONCE 07/06/20 14:30 07/06/20 15:29 DC 07/06/20 14:51 210 MLS/HR Ringer's Solution 1,000 ml @ 30 mls/hr Q24H 08/09/20 06:00 08/09/20 17:59 DC 08/09/20 06:11 30 MLS/HR Rocuronium [place] (Zemuron) 50 mg STK-MED ONCE 08/06/20 15:19 08/06/20 15:19 DC Sevoflurane (Ultane) 30 ml STK-MED ONCE 08/06/20 15:18 08/06/20 15:19 DC Sodium Chloride 1,000 ml @ 100 mls/hr Q10H 08/07/20 12:00 08/12/20 10:50 DC 08/11/20 16:30 100 MLS/HR Sodium Phosphate 20 mmol/Sodium Chloride 256.6667 ml @ 62.5 mls/hr 1X ONCE 07/24/20 15:30 07/24/20 19:36 UNV Sodium Phosphate 30 mmol/Sodium Chloride 260 ml @ 62.5 mls/hr 1X ONCE 07/24/20 15:30 07/24/20 19:39 UNV Succinylcholine Chloride (Anectine) 200 mg 1X ONCE 07/04/20 09:30 07/04/20 09:31 DC 07/04/20 09:38 200 MG Throat Lozenges (Cepacol Sore Throat Lozenge) 1 lety PRN Q2HRS PRN 07/04/20 01:15 Vancomycin HCl (Vanco Per Pharmacy) 1 each PRN DAILY PRN 08/11/20 13:30 08/14/20 08:03 DC 08/13/20 15:09 1 EACH Vancomycin HCl (Vancomycin Trough Level) 1 each 1X ONCE 08/13/20 14:30 08/13/20 14:31 DC Vancomycin HCl 1.25 gm/Sodium Chloride 250 ml @ 167 mls/hr Q8H 07/25/20 15:00 07/26/20 07:31 DC 07/25/20 22:44 167 MLS/HR Vancomycin HCl 1.5 gm/Sodium Chloride 500 ml @ 250 mls/hr Q8H 08/11/20 23:00 08/12/20 15:13 DC 08/12/20 14:49 250 MLS/HR Vancomycin HCl 1.75 gm/Sodium Chloride 500 ml @ 250 mls/hr Q8H 08/12/20 23:00 08/14/20 08:01 DC 08/14/20 07:04 250 MLS/HR Vancomycin HCl 2 gm/Sodium Chloride 500 ml @ 250 mls/hr 1X ONCE 07/25/20 07:00 07/25/20 08:59 DC 07/25/20 07:06 250 MLS/HR Vecuronium [place] 50 mg/ Miscellaneous 50 ml @ 4.094 mls/ hr CONT PRN 07/12/20 14:45 07/22/20 09:34 DC 07/18/20 01:56 7.5 MLS/HR Vecuronium [place] (Norcuron Bolus) 6 mg PRN Q6HRS PRN 07/28/20 23:00 08/09/20 15:05 6 MG Vitamin D (Vitamin D3) 5,000 unit DAILY 07/05/20 09:00 08/15/20 08:42 5,000 UNIT Zinc Sulfate (Orazinc) 220 mg DAILY 07/05/20 09:00 08/15/20 08:42 220 MG Labs: Lab Laboratory Tests Test 08/15/20 11:51 08/15/20 12:45 08/15/20 17:42 08/15/20 20:33 Glucose (Fingerstick) 150 mg/dL (70-99) 145 mg/dL (70-99) Body Fluid pH 7.73 Heparin Anti-Xa Act, Unfractionated 0.37 IU/mL (0.30-0.70) Test 08/15/20 23:11 08/16/20 04:00 08/16/20 05:29 Glucose (Fingerstick) 157 mg/dL (70-99) 144 mg/dL (70-99) Heparin Anti-Xa Act, Unfractionated 0.59 IU/mL (0.30-0.70) Objective: Assessment: Left pleural effusion status post CTS August 15 Fevers Source pulm Leukocytosis improved COVID-19 positive. Status post remdesivir, steroids Acute hypoxic respiratory failure/ARDS /pneumonia H/O Bilateral pulmonary emboli. Hypertension. Bacteremia 07/23 08/25 bottles staph hominis likely contaminant Repeat blood cultures staph capitis likely contaminant Repeat BC 08/06 staph pettenkori likely contaminant Enterobacter UTI and pneumonia Treated Plan: Plan of Care C. difficile negative Left thoracocentesis with CTS pH 7.73, cell count, glucose, protein, cultures pending C. difficile negative Cont zyvox and Merrem 08/14 f/u cults negative so far Tracheal aspirate for afb stain and cultures negative D/W JAMI LUCAS MD Aug 16, 2020 07:30
--- NOTE | 2020-08-16 08:01 | PDOC ---
[employer] PROGRESS NOTE Date of Service DOS: DATE: 08/16/20 TIME: 08:00 Chief Complaint Chief Complaint A/P: Acute hypoxic respiratory failure requiring VENT SUPPORT STATUS post trach placement 08/06/2020 S/P Peg tube placement 08/09 Acute hypoxic respiratory failure/ARDS /pneumonia Bilateral perihilar and basilar opacities, progressed in the left base. 12 COVID-19 Subsegmental bilateral PE Sepsis NSTEMI AKA Lactic acidosis Hyponatremia, RESOLVED hgb 6.5 07-27, transfused 1 unit prbc's - bled on eliquis, now on heparin GTT hypokalemia, on replacement Left pleural effusion Plan: Spontaneous breathing trial today attempt to wean to extubate Appreciate pulmonology recommendations Continue current ventilatory support, currently on 70% and PEEP of 6, avoid increasing PEEP 2/2 risk of barotrauma Follow chest x-ray and ABG, vent management as per pulmonology Heparin has been transitioned to Xarelto Solu-Medrol 40 mg every 12 hours Appreciate ID recommendationscontinue Remdesivir and empiric antibiotics IV fluids Discussed with RN and JAVIER. Antibiotics per ID-- off ABX, infectious disease following increasing leukocytosis has completed full course of remdesivir continue tube feeding for nutritional support History of Present Illness History of Present Illness 08/12: No acute events overnight. Patient has T-max of 99.7. Currently on minimal vent settings.> 50% time spent in patient chart, labs, and imaging review and in discussion with RN and JAVIER 08/13: Overnight Tmax 100.6F. Tires out easily on vent. 08/14: 101.5 F overnight. Stool sample on urine sample taken today. No growth on cultures as of yet. Still requiring vent support via his trach. No residuals on tube feeds. CT chest with left loculated effusion 08/15: 100.4 F overnight. Left Thoracostomy tube inserted today. Still requiring vent support via trach. T-max 100.8 F overnight. Still requiring vent support via trach. Chest tube w/o air leak. 08/11/2020 No acute events overnight. Patient with T-max of 100.8 overnight. Currently on minimal vent settings. Trached and pegged. Social work following for Medicare approval.> 50% time spent in patient chart, labs, and imaging review and in discussion with RN and JAVIER 08/10/2020 no acute events overnight. Patient is on minimal vent settings. PEG tube placed yesterday. Will attempt to wean to extubate today.> 50% time spent in patient chart, labs, and imaging review and in discussion with RN and JAVIER 08/09/2020 No acute events overnight. T-max of 100.0 F. Patient is on minimal anna tilatory settings.> 50% time spent in patient chart, labs, and imaging review and in discussion with RN and JAVIER 08/08/2020 Patient tolerating trach and ventilatory goldy support on 40% FiO2 and 5 of PEEP. Pending PEG tube placement tomorrow.> 50% time spent in patient chart, labs, and imaging review and in discussion with RN and JAVIER 08/07/2020 No acute events overnight. Fever T-max of 101.1. Trach was placed yesterday. On minimal vent settings.> 50% time spent in patient chart, labs, and imaging review and in discussion with RN and JAVIER 08/06/2020 No acute events overnight. Patient is afebrile. Currently on minimal vent settings. Pending trach today. Patient's chart, labs, images were reviewed and discussed with RN A total of 35 minutes of critical care time was spent in reviewing chart, labs, and images. Discussed with RN and SW. 08/05/2020 Patient seen and evaluated. No acute events, febrile overnight. Mechanically ventilated with FiO2 40%, PEEP 6. Plan for trach Thursday. 08/04/2020 Patient seen in [facility] ICU. Still with low-grade fevers. Mechanically ventilated, FiO2 40%, PEEP 6. No acute change, plan for trach Thursday. 08/03/2020 Patient seen in [facility]- ICU. Still with low-grade fever. He remains on vent with FiO2 100%, PEEP 12. Plan for trach on Thursday, and PEG at some point after. 08/02/2020 Patient seen and evaluated in [facility] ICU. He is febrile this morning. Still intubated mechanically ventilated with FiO2 40 %, PEEP 6. Plans for tracheostomy today. 08/01/2020 Patient seen in [facility] ICU. Patient remains slightly febrile. Mechanically ventilated, FiO2 45%, PEEP 6. Tracheostomy unable to perform yesterday, general surgery to attempt again today. Discussed with RN. 07/31/2020 Patient still spiking fevers. Patient remains on vent, FiO2 45%, PEEP 6. Tracheostomy tentatively planned for today. 07/30/2020 Patient seen in [place] [id number] ICU. He is febrile on vent, FiO2 45%, PEEP 6. Will attempt to speak with family about decision on trach and PEG tube. Discussed with RN. t max 102 f fio2 50% 07/21/2020 Patient no acute events reported overnight. Patient continues to require a lot of support from vent. Discussed with RN 09/19/2019 Patient continues to be pretty much the same , fio2 is at 70%, heparin 07/19/2020 Patient hypotensive today, we will follow recommendations from critical dialysis patient care technician. Vent management as per furniture sales consultant, no other complaints. 07/18/2020 Patient with no acute events reported overnight, fio2 is now at 75% PEEP of 6, Vent management as per pulmonary furniture sales consultant slight increase in temperature noted over the lat 24 hours. Will continue to follow 07/17/2020 Patient with no acute events reported overnight, contineus to require an fio2 of 80%, continue with supportive measures. 07/16/2020 Patient with no acute events reported overnight, patient continues to require quite a bit of FiO2 at 80%. Vent management as per furniture sales consultant, will place a call to family members after rounding. Discussed with RN 07/15/2020 Patient seen and examined bedside in the ICU. FiO2 80% PEEP of 6.pH 7.56, PCO2 32, PO2 56, HCO3 28. Will adjust respiratory rate accordingly to correct pH.> 50% time spent in patient chart, labs, and imaging review and in discussion with RN and JAVIER 07/14/2020 Patient seen and examined bedside. FiO2 65% and PEEP of 6 on vent. ABG: pH 7.26, PCO2 77, PO2 114, HCO3 34. We will adjust respiratory rate or tidal volume to titrate pH.> 50% time spent in patient chart, labs, and imaging review and in discussion with RN and JAVIER 07/13/2020 No acute events overnight. Patient examined bedside sedated and intubated. FiO2 70% PEEP of 6. Improved ABGs.> 50% time spent in patient chart, labs, and imaging review and in discussion with RN and JAVIER 07/12/2020 Patient seen and examined in the ICU. Sedated and intubated. FiO2 65, PEEP of 8 with improved oxygenation. pH 7.4, PCO2 48, PO2 94, HCO3 30. +500 cc fluid balance.> 50% time spent in patient chart, labs, and imaging review and in discussion with RN and SW 07/11/2020 Patient seen and examined bedside in the ICU. Patient continues to be intubated and sedated. FiO2 75%, PEEP of 10. pH 7.40, PCO2 44, PO2 is 135, HCO3 26. Can likely decrease FiO2 due to improved oxygenation. +173 cc in the past 24 hours 07/10/2020 Patient seen and examined bedside in ICU. Patient is intubated and sedated. FiO2 90%, PEEP of 10, respiratory rate of 30. ABG: pH is 7.41, PCO2 42, PO2 113, HCO3 26. 07/09/2020 Patient seen and examined in the ICU. Intubated and sedated. Vent settings FiO2 90%, PEEP of 10, respiratory rate of 30. 07/05: Patient seen in ICU, still intubated and sedated. COVID-19 pending. Patient remains on heparin infusion. Discussed with RN, will try to have central line placed per anesthesia. 07/06: Patient seen in ICU. Still FiO2 100% on vent and sedated. COVID-19 positive. Continue heparin infusion, Zosyn, steroids. 07/07: Covid positive patient seen in ICU. On vent with FiO2 100%, PEEP 10. Continue remdesivir, steroids, Zosyn. Continue to monitor 07/08: Patient seen in [facility] ICU. Still on vent with FiO2 100%, PEEP 10. Afebrile. No acute events overnight. Continue steroids, antibiotics, and remdesivir. Patient is 49-year-old male with past medical history of hypertension, who presents to the ED with complaints of worsening shortness of breath over the past 5 days. Associated sore throat, fatigue, and generalized weakness. Patient was reportedly tested for COVID-19 last Thursday, but he had negative test results. His symptoms acutely worsened yesterday. Upon arrival to the ER his oxygen saturation was 60% on room air. He was placed on BiPAP and admitted to the ICU. Patient was subsequently intubated due to worsening respiratory failure. Vitals/I&O Vitals/I&O: Vital Signs Date Time Temp Pulse Resp B/P (MAP) Pulse Ox O2 Delivery O2 Flow Rate FiO2 08/16/20 07:35 100 08/16/20 07:28 Ventilator 08/16/20 07:00 70 33 116/69 (85) 08/16/20 04:00 99.7 99.7 08/15/20 16:00 10.0 I & O 08/15/20 08/15/20 08/16/20 15:00 23:00 07:00 Intake Total 439.7 ml 860 ml 1409 ml Output Total 5920 ml 1233 ml 935 ml Balance -5480.3 ml -373 ml 474 ml Physical Exam Physical Exam: General on vent,alert HEENT normocephalic atraumatic , trach LUNGS: Coarse breath sounds anteriorly HEART: S1-S2 no murmurs ABDOMEN: mildly distended, soft bowel sounds present Fernandez in place,fecal tube in place SKIN: No generalized rash Right upper extremity PICC line removed PIVs Clean Neuro alert awake General: Other (sedated ) Lungs: Clear Labs Labs: Laboratory Tests Test 08/15/20 11:51 08/15/20 12:45 08/15/20 17:42 08/15/20 20:33 Glucose (Fingerstick) 150 mg/dL (70-99) 145 mg/dL (70-99) Body Fluid pH 7.73 Heparin Anti-Xa Act, Unfractionated 0.37 IU/mL (0.30-0.70) Test 08/15/20 23:11 08/16/20 04:00 08/16/20 05:29 Glucose (Fingerstick) 157 mg/dL (70-99) 144 mg/dL (70-99) Heparin Anti-Xa Act, Unfractionated 0.59 IU/mL (0.30-0.70) Assessment and Plan Assessmemt and Plan Problems Medical Problems: (1) Acute respiratory failure with hypoxia Status: Acute (2) PRIYA (acute kidney injury) Status: Acute (3) Elevated troponin I level Status: Acute (4) Pulmonary emboli Status: Acute (5) Suspected COVID-19 virus infection Status: Acute Comment Review of Relevant I have reviewed the following items trino (where applicable) has been applied. Medications: Current Medications Medications (Trade) Dose Ordered Sig/Natalee Route PRN Reason Start Time Stop Time Status Last Admin Dose Admin Potassium Bicarbonate (Potassium Effervescent Tablet) 40 meq 1X ONCE PEG 08/15/20 09:45 08/15/20 09:46 DC 08/15/20 10:25 Lidocaine HCl (Buffered Lidocaine 1%) 6 ml 1X ONCE INJ 08/15/20 13:00 08/15/20 13:01 DC 08/15/20 13:07 Fentanyl Citrate (Fentanyl 2ml Vial) 50 mcg PRN Q4HRS PRN IVP PAIN 08/15/20 14:15 08/15/20 20:06 Fentanyl Citrate (Fentanyl 2ml Vial) 50 mcg 1X ONCE IVP 08/15/20 14:15 08/15/20 14:18 DC 08/15/20 14:29 Justifications for Admission Other Justification NEIL PATEL MD Aug 16, 2020 08:01
[2020-08-16] MEDS: LINEZOLID 600 MG TABLET PO SCH ×2 (08:37→22:42)
[2020-08-16] MEDS: ZINC SULFATE 220 MG CAPSULE. PO SCH (08:37)
[2020-08-16] MEDS: PANTOPRAZOLE IV PUSH 40 MG VIAL. IVP SCH (08:37)
[2020-08-16] MEDS: CHOLECALCIFEROL (VITAMIN D3) 5,000 UNIT CAPSULE PO SCH (08:37)
[2020-08-16] MEDS: HEPARIN 25,000UTS/250ML PREMIX 250 ML IV PRN ×2 (08:38→19:01)
[2020-08-16] MEDS: fentaNYL PF VIAL 100 MCG/2 ML VIAL IVP PRN ×3 (09:01→22:43)
--- NOTE | 2020-08-16 11:44 | PDOC ---
PULMONARY PROGRESS NOTES DATE: 08/16/20 TIME: 11:38 Subjective PT. tolerating TS well Status post tracheostomy on 08/06/2020 and S/P peg tube on 08/09 Continues to have fevers s/p left chest tube, 2 litres came out No other concerns from nursing overnight Vitals Vital Signs Date Time Temp Pulse Resp B/P (MAP) Pulse Ox O2 Delivery O2 Flow Rate FiO2 08/16/20 11:20 100 Tracheal Collar 10.0 08/16/20 11:00 71 44 113/68 (83) 08/16/20 08:00 99.3 99.3 Comments General: Alert, No acute distress Lungs: Clear Cardiovascular: S1, S2 Abdomen: Soft Neuro Exam: Alert Extremities: No Edema Skin: Warm, Dry Labs Laboratory Tests Test 08/14/20 22:15 08/15/20 00:11 08/15/20 05:34 08/15/20 06:37 Heparin Anti-Xa Act, Unfractionated 0.29 IU/mL (0.30-0.70) 0.66 IU/mL (0.30-0.70) Glucose (Fingerstick) 149 mg/dL (70-99) 157 mg/dL (70-99) White Blood Count 11.3 x10^3/uL (4.0-11.0) Red Blood Count 2.72 x10^6/uL (4.30-5.70) Hemoglobin 8.3 g/dL (13.0-17.5) Hematocrit 25.5 % (39.0-53.0) Mean Corpuscular Volume 94 fL (79-100) Mean Corpuscular Hemoglobin 31 pg (25-35) Mean Corpuscular Hemoglobin Concent 33 g/dL (31-37) Red Cell Distribution Width 16.5 % (11.5-14.5) Platelet Count 308 x10^3/uL (140-400) Sodium Level 138 mmol/L (136-145) Potassium Level 3.2 mmol/L (3.5-5.1) Chloride Level 101 mmol/L (98-107) Carbon Dioxide Level 29 mmol/L (21-32) Anion Gap 8 (6-14) Blood Urea Nitrogen 9 mg/dL (8-26) Creatinine 0.6 mg/dL (0.7-1.3) Estimated GFR (Cockcroft-Gault) 142.6 Glucose Level 143 mg/dL (70-99) Calcium Level 7.9 mg/dL (8.5-10.1) Magnesium Level 1.9 mg/dL (1.8-2.4) Test 08/15/20 11:51 08/15/20 12:45 08/15/20 17:42 08/15/20 20:33 Glucose (Fingerstick) 150 mg/dL (70-99) 145 mg/dL (70-99) Body Fluid pH 7.73 Heparin Anti-Xa Act, Unfractionated 0.37 IU/mL (0.30-0.70) Test 08/15/20 23:11 08/16/20 04:00 08/16/20 05:29 Glucose (Fingerstick) 157 mg/dL (70-99) 144 mg/dL (70-99) Heparin Anti-Xa Act, Unfractionated 0.59 IU/mL (0.30-0.70) Laboratory Tests Test 08/15/20 11:51 08/15/20 12:45 08/15/20 17:42 08/15/20 20:33 Glucose (Fingerstick) 150 mg/dL (70-99) 145 mg/dL (70-99) Body Fluid pH 7.73 Heparin Anti-Xa Act, Unfractionated 0.37 IU/mL (0.30-0.70) Test 08/15/20 23:11 08/16/20 04:00 08/16/20 05:29 Glucose (Fingerstick) 157 mg/dL (70-99) 144 mg/dL (70-99) Heparin Anti-Xa Act, Unfractionated 0.59 IU/mL (0.30-0.70) Comments CXR 08/14 IMPRESSION: worsening loculated left effusion, bilateral infiltrates CT CHEST 08/14 1. Marked interval enlargement of left lateral effusion. This could be causing some mass effect on the mediastinum. 2. Extensive pleural-parenchymal scarring and patchy airspace opacities in the lungs compatible with the sequelae of atypical pneumonia. Electronically signed by: Gosia Li MD (08/14/2020 1:28 PM) [id number] Impression . IMPRESSION: 1. Acute hypoxemic respiratory failure./ALI/ARDS due to COVID -19 2. Acute pulmonary embolism 3. COVID-19 pnemonia.now with persistent fevers, suspect VAP/ Left sided empyema 5. Hypertension. 6. History of bronchitis. 7. Elevated troponin. 8. Acute kidney injury. 9. Leukocytosis. 10. Covid-[address] chest 08/14 , large left effusion, suspect empyema Plan . Continue TS 24 hrs s/p left chest tube, non purulent, await analysis, normal PH, monitor output Status post tracheostomy 08/06 and S/P Peg tube placement 08/09 heparin gtt/ monitor hemoglobin repeat CTA chest for PE f/u, dopplers neg f/u chest x-ray in am Follow cardiology recommendations Antibiotics per ID--AFB negative, repeat cultures negative, continues to have low grade fevers, currently on humberto, zyvox Has completed full course of remdesivir Continue tube feeding for nutritional support DVT/GI prophylaxis,Protonix-- heparin gtt Discussed with RN and RT Pt. is FULL CODE critically ill Critical care time 30 min NERY SALINAS MD Aug 16, 2020 11:44
--- NOTE | 2020-08-16 13:09 | NUR ---
SS following up with discharge planning. SS reviewed pt chart and discussed with pt RN. Self pay. Pt is currently on trach shield. COVID19 negative. Left chest tube in place. Pt having chest CT today. Heparin drip. Pt on IV Meropenem. Peg tube in place. Not stable. SS will continue to follow for discharge planning.
[2020-08-16] MEDS: PROCHLORPERAZINE 10 MG/2 ML VIAL. IV PRN ×2 (14:26→22:43)
[2020-08-17] VITALS (23 sets, daily range): BP systolic 111–159; BP diastolic 64–97
[2020-08-17] MEDS: PROCHLORPERAZINE 10 MG/2 ML VIAL. IV PRN (02:45)
--- NOTE | 2020-08-17 04:28 | RAD ---
Single view chest dated 08/17/2020. Comparison made to 08/14/2020. CLINICAL INDICATION: Respiratory failure. FINDINGS: Single upright portable exam performed. Heart and mediastinal contours are stable. Tracheostomy tube tip at mid trachea, unchanged. Bilateral airspace disease, left greater than right similar to slightl y improved. Interval decrease in size of loculated left pleural effusion. No pneumothorax. IMPRESSION: 1. Bilateral airspace disease, similar to slightly improved. 2. Interval decrease in size of left pleural effusion. Electronically signed by: Jorge Brown MD (08/17/2020 4:26 AM) ERIC
[2020-08-17] MEDS: HEPARIN 25,000UTS/250ML PREMIX 250 ML IV PRN ×2 (05:14→14:44)
[2020-08-17 05:38] LABS: HEMATOCRIT 29.8 % (39.0-53.0); HEMOGLOBIN 9.7 g/dL (13.0-17.5); RED BLOOD COUNT 3.19 x10^6/uL (4.30-5.70); RED CELL DISTRIBUTION WIDTH 16.3 % (11.5-14.5); WHITE BLOOD COUNT 14.6 x10^3/uL (4.0-11.0)
[2020-08-17 05:39] LABS: CALCIUM 8.1 mg/dL (8.5-10.1); CREATININE 0.7 mg/dL (0.7-1.3); GFR 119.4; POTASSIUM 3.4 mmol/L (3.5-5.1)
[2020-08-17] MEDS ORDERED: CONTRAST GIVEN. MC PRN (05:45)
[2020-08-17] MEDS ORDERED: IOHEXOL 350 MG/ML 100 ML VIAL. IV ONE (05:45)
[2020-08-17] MEDS: MEROPENEM 500 MG in IV NORMAL SALINE 50ML 50 ML IV SCH ×4 (06:00→17:56)
[2020-08-17] MEDS: INSULIN LISPRO 300 UNITS/3 ML VIAL. SQ SCH ×4 (06:00→17:55)
[2020-08-17] MEDS: ZINC SULFATE 220 MG CAPSULE. PO SCH (08:13)
[2020-08-17] MEDS: LINEZOLID 600 MG TABLET PO SCH ×2 (08:13→21:47)
[2020-08-17] MEDS: CHOLECALCIFEROL (VITAMIN D3) 5,000 UNIT CAPSULE PO SCH (08:13)
[2020-08-17] MEDS: PANTOPRAZOLE IV PUSH 40 MG VIAL. IVP SCH (08:13)
--- NOTE | 2020-08-17 08:15 | PDOC ---
Infectious Disease Note Subjective: Subjective Patient with trach on vent T-max 100 Vital Signs: Vital Signs Vital Signs Date Time Temp Pulse Resp B/P (MAP) Pulse Ox O2 Delivery O2 Flow Rate FiO2 08/17/20 08:00 100.0 102 24 147/84 (105) 98 Tracheal Collar 10.0 100.0 Physical Exam: PHYSICAL EXAM General on vent,alert HEENT normocephalic atraumatic , trach LUNGS: Clear anteriorly, left CTS HEART: S1-S2 no murmurs ABDOMEN: mildly distended, soft bowel sounds present Fernandez in place,fecal tube in place SKIN: No generalized rash Right upper extremity PICC line removed PIVs Clean Neuro alert awake Medications: Inpatient Meds: Current Medications Medications (Trade) Dose Ordered Sig/Natalee Start Time Stop Time Status Last Admin Dose Admin Acetaminophen (Tylenol Supp) 650 mg PRN Q6HRS PRN 08/06/20 20:45 08/07/20 19:28 650 MG Acetaminophen (Tylenol) 650 mg PRN Q6HRS PRN 07/12/20 12:00 08/15/20 20:00 650 MG Apixaban (Eliquis) 5 mg BID 07/23/20 09:00 07/27/20 12:19 DC 07/26/20 20:31 5 MG Ascorbic Acid (Vitamin C) 500 mg Q6HRS 07/04/20 18:00 08/05/20 08:39 DC 08/05/20 06:07 500 MG Azithromycin (Zithromax) 500 mg 1X ONCE 07/03/20 19:15 07/03/20 19:19 DC 07/03/20 20:11 500 MG Bupivacaine HCl/ Epinephrine Bitart (Sensorcain-Epi 0.5%-1:[id number] Mpf) 30 ml 1X ONCE 08/06/20 06:30 08/06/20 06:31 DC 08/06/20 15:15 1 ML Cefazolin Sodium/ Dextrose 50 ml @ 100 mls/hr 1X ONCE 08/09/20 11:00 08/09/20 11:29 DC 08/09/20 11:04 100 MLS/HR Ceftriaxone Sodium (Rocephin) 1 gm 1X ONCE 07/03/20 19:15 07/03/20 19:19 DC 07/03/20 20:11 1 GM Cellulose (Surgicel Fibrillar 1x2) 1 each STK-MED ONCE 07/31/20 13:08 07/31/20 13:08 DC Cellulose (Surgicel Hemostat 4x8) 1 each STK-MED ONCE 08/06/20 14:10 08/06/20 14:11 DC Daptomycin 470 mg/ Sodium Chloride 50 ml @ 100 mls/hr Q24H 08/01/20 09:00 08/05/20 11:20 DC 08/05/20 09:24 100 MLS/HR Dexmedetomidine HCl 400 mcg/ Sodium Chloride 100 ml @ 0 mls/hr CONT PRN 08/11/20 10:00 08/16/20 18:28 4.1 MLS/HR Dextrose (Dextrose 50%-Water Syringe) 12.5 gm PRN Q15MIN PRN 08/14/20 08:00 UNV Enoxaparin Sodium (Lovenox 150mg Syringe) 150 mg 1X ONCE 07/03/20 23:00 07/03/20 23:01 DC 07/03/20 22:45 150 MG Etomidate (Amidate) 10 mg 1X ONCE 07/04/20 09:30 07/04/20 09:31 DC 07/04/20 09:37 10 MG Fentanyl Citrate (Fentanyl 2ml Vial) 50 mcg 1X ONCE 08/15/20 14:15 08/15/20 14:18 DC 08/15/20 14:29 50 MCG Furosemide (Lasix) 20 mg 1X ONCE 07/29/20 06:30 07/29/20 06:31 DC 07/29/20 06:35 20 MG Heparin Sodium (Porcine) (Heparin Sodium) 1,250 unit PRN Q6HRS PRN 08/11/20 14:30 08/14/20 22:56 1,250 UNIT Heparin Sodium/ Dextrose 250 ml @ 0 mls/hr CONT PRN 08/11/20 14:30 08/17/20 05:14 27.1 MLS/HR Hydromorphone HCl (Dilaudid) 0.5 mg PRN Q10MIN PRN 08/06/20 07:00 08/07/20 06:59 DC Info (Anti-Coagulation Monitoring By Pharmacy) 1 each PRN DAILY PRN 07/16/20 08:15 08/14/20 09:40 1 EACH Info (CONTRAST GIVEN -- Rx MONITORING) 1 each PRN DAILY PRN 08/17/20 05:45 08/19/20 05:44 Info (Icu Electrolyte Protocol) 1 ea CONT PRN PRN 07/24/20 15:45 Insulin Human Lispro (HumaLOG) 0-7 UNITS Q6HRS 08/14/20 12:00 08/15/20 23:18 3 UNITS Iohexol (Omnipaque 350 Mg/ml) 100 ml 1X ONCE 08/17/20 05:45 08/17/20 05:46 DC Levofloxacin/ Dextrose 150 ml @ 100 mls/hr Q24H 08/02/20 09:00 08/05/20 11:20 DC 08/05/20 07:16 100 MLS/HR Lidocaine HCl (Buffered Lidocaine 1%) 6 ml 1X ONCE 08/15/20 13:00 08/15/20 13:01 DC 08/15/20 13:07 5 ML Lidocaine HCl (Xylocaine-Mpf 1% 2ml Vial) 2 ml PRN 1X PRN 08/06/20 07:00 08/07/20 06:59 DC Linezolid (Zyvox) 600 mg BID 08/14/20 09:00 08/16/20 22:42 600 MG Linezolid/Dextrose 300 ml @ 300 mls/hr Q12HR 07/27/20 12:30 07/31/20 07:36 DC 07/30/20 21:47 300 MLS/HR Lorazepam (Ativan Inj) 2 mg PRN Q1HR PRN 07/21/20 12:30 08/17/20 02:45 2 MG Magnesium Sulfate 100 ml @ 50 mls/hr DAILY 08/13/20 00:00 08/16/20 00:00 DC 08/15/20 08:43 50 MLS/HR Meclizine HCl (Antivert) 25 mg PRN DAILY PRN 08/12/20 23:00 Meropenem 500 mg/ Sodium Chloride 50 ml @ 100 mls/hr Q6HRS 08/14/20 09:00 08/17/20 06:00 100 MLS/HR Methylprednisolone Sodium Succinate (SOLU-Medrol 40MG VIAL) 40 mg DAILY 07/21/20 09:00 07/22/20 09:36 DC 07/22/20 09:08 40 MG Midazolam HCl (Versed) 5 mg STK-MED ONCE 07/04/20 09:21 07/04/20 09:21 DC Morphine Sulfate (Morphine Sulfate) 1 mg PRN Q10MIN PRN 08/06/20 07:00 08/07/20 06:59 DC Multi-Ingred Cream/Lotion/Oil/ Oint (Artificial Tears Eye Ointment) 1 wenceslao PRN Q1HR PRN 07/18/20 10:45 07/27/20 17:19 1 WENCESLAO Norepinephrine Bitartrate 8 mg/ Dextrose 258 ml @ 16.061 mls/ hr CONT PRN 07/04/20 13:15 07/18/20 11:01 DC 07/05/20 00:33 28.909 MLS/HR Ondansetron HCl (Zofran) 4 mg PRN Q6HRS PRN 08/06/20 07:00 08/07/20 06:59 DC Pantoprazole Sodium (PROTONIX VIAL for IV PUSH) 40 mg DAILYAC 07/04/20 12:30 08/16/20 08:37 40 MG Piperacillin Sod/ Tazobactam Sod (Zosyn Per Pharmacy) 1 each PRN DAILY PRN 07/04/20 12:00 07/18/20 07:46 DC Piperacillin Sod/ Tazobactam Sod 3.375 gm/Sodium Chloride 50 ml @ 100 mls/hr Q6HRS 07/04/20 12:00 07/17/20 11:11 DC 07/17/20 05:10 100 MLS/HR Piperacillin Sod/ Tazobactam Sod 4.5 gm/Sodium Chloride 100 ml @ 200 mls/hr Q6HRS 07/24/20 12:00 07/26/20 10:53 DC 07/26/20 05:36 200 MLS/HR Potassium Bicarbonate (Potassium Effervescent Tablet) 40 meq 1X ONCE 08/15/20 09:45 08/15/20 09:46 DC 08/15/20 10:25 40 MEQ Potassium Chloride/Water 100 ml @ 100 mls/hr Q1H 08/13/20 13:00 08/13/20 16:59 DC 08/13/20 18:10 100 MLS/HR Potassium Phosphate 13.6 mmol/Sodium Chloride 254.5333 ml @ 62.5 mls/hr Q4H 07/24/20 15:30 07/25/20 03:29 UNV Prochlorperazine Edisylate (Compazine) 10 mg PRN Q6HRS PRN 08/12/20 21:30 08/17/20 02:45 10 MG Propofol 100 ml @ 0 mls/hr CONT PRN 07/04/20 09:15 08/11/20 06:42 14.9 MLS/HR Remdesivir 100 mg/ Sodium Chloride 230 ml @ 460 mls/hr Q24H 07/07/20 14:30 07/10/20 14:59 DC 07/10/20 13:59 460 MLS/HR Remdesivir 200 mg/ Sodium Chloride 210 ml @ 210 mls/hr 1X ONCE 07/06/20 14:30 07/06/20 15:29 DC 07/06/20 14:51 210 MLS/HR Ringer's Solution 1,000 ml @ 30 mls/hr Q24H 08/09/20 06:00 08/09/20 17:59 DC 08/09/20 06:11 30 MLS/HR Rocuronium Simms (Zemuron) 50 mg STK-MED ONCE 08/06/20 15:19 08/06/20 15:19 DC Sevoflurane (Ultane) 30 ml STK-MED ONCE 08/06/20 15:18 08/06/20 15:19 DC Sodium Chloride 1,000 ml @ 100 mls/hr Q10H 08/07/20 12:00 08/12/20 10:50 DC 08/11/20 16:30 100 MLS/HR Sodium Phosphate 20 mmol/Sodium Chloride 256.6667 ml @ 62.5 mls/hr 1X ONCE 07/24/20 15:30 07/24/20 19:36 UNV Sodium Phosphate 30 mmol/Sodium Chloride 260 ml @ 62.5 mls/hr 1X ONCE 07/24/20 15:30 07/24/20 19:39 UNV Succinylcholine Chloride (Anectine) 200 mg 1X ONCE 07/04/20 09:30 07/04/20 09:31 DC 07/04/20 09:38 200 MG Throat Lozenges (Cepacol Sore Throat Lozenge) 1 lety PRN Q2HRS PRN 07/04/20 01:15 Vancomycin HCl (Vanco Per Pharmacy) 1 each PRN DAILY PRN 08/11/20 13:30 08/14/20 08:03 DC 08/13/20 15:09 1 EACH Vancomycin HCl (Vancomycin Trough Level) 1 each 1X ONCE 08/13/20 14:30 08/13/20 14:31 DC Vancomycin HCl 1.25 gm/Sodium Chloride 250 ml @ 167 mls/hr Q8H 07/25/20 15:00 07/26/20 07:31 DC 07/25/20 22:44 167 MLS/HR Vancomycin HCl 1.5 gm/Sodium Chloride 500 ml @ 250 mls/hr Q8H 08/11/20 23:00 08/12/20 15:13 DC 08/12/20 14:49 250 MLS/HR Vancomycin HCl 1.75 gm/Sodium Chloride 500 ml @ 250 mls/hr Q8H 08/12/20 23:00 08/14/20 08:01 DC 08/14/20 07:04 250 MLS/HR Vancomycin HCl 2 gm/Sodium Chloride 500 ml @ 250 mls/hr 1X ONCE 07/25/20 07:00 07/25/20 08:59 DC 07/25/20 07:06 250 MLS/HR Vecuronium Simms 50 mg/ Miscellaneous 50 ml @ 4.094 mls/ hr CONT PRN 07/12/20 14:45 07/22/20 09:34 DC 07/18/20 01:56 7.5 MLS/HR Vecuronium Simms (Norcuron Bolus) 6 mg PRN Q6HRS PRN 07/28/20 23:00 08/09/20 15:05 6 MG Vitamin D (Vitamin D3) 5,000 unit DAILY 07/05/20 09:00 08/16/20 08:37 5,000 UNIT Zinc Sulfate (Orazinc) 220 mg DAILY 07/05/20 09:00 08/16/20 08:37 220 MG Labs: Lab Laboratory Tests Test 08/16/20 11:51 08/16/20 18:00 08/17/20 04:00 Glucose (Fingerstick) 136 mg/dL (70-99) 119 mg/dL (70-99) White Blood Count 14.6 x10^3/uL (4.0-11.0) Red Blood Count 3.19 x10^6/uL (4.30-5.70) Hemoglobin 9.7 g/dL (13.0-17.5) Hematocrit 29.8 % (39.0-53.0) Mean Corpuscular Volume 93 fL (79-100) Mean Corpuscular Hemoglobin 30 pg (25-35) Mean Corpuscular Hemoglobin Concent 33 g/dL (31-37) Red Cell Distribution Width 16.3 % (11.5-14.5) Platelet Count 312 x10^3/uL (140-400) Heparin Anti-Xa Act, Unfractionated 0.74 IU/mL (0.30-0.70) Sodium Level 138 mmol/L (136-145) Potassium Level 3.4 mmol/L (3.5-5.1) Chloride Level 101 mmol/L (98-107) Carbon Dioxide Level 31 mmol/L (21-32) Anion Gap 6 (6-14) Blood Urea Nitrogen 7 mg/dL (8-26) Creatinine 0.7 mg/dL (0.7-1.3) Estimated GFR (Cockcroft-Gault) 119.4 Glucose Level 133 mg/dL (70-99) Calcium Level 8.1 mg/dL (8.5-10.1) Objective: Assessment: Left pleural effusion status post CTS August 15 Left thoracocentesis with CTS pH 7.73, cell count, glucose, protein .ldh noted, cult neg Fevers Source ?? Leukocytosis improved COVID-19 positive. Status post remdesivir, steroids Acute hypoxic respiratory failure/ARDS /pneumonia H/O Bilateral pulmonary emboli. Hypertension. Bacteremia 07/23 1/2 bottles staph hominis likely contaminant Repeat blood cultures staph capitis likely contaminant Repeat BC 08/06 staph pettenkori likely contaminant Enterobacter UTI and pneumonia Treated Plan: Plan of Care Cont zyvox and Merrem 08/14 C. difficile negative f/u cults negative so far Tracheal aspirate for afb stain and cultures negative so far D/W JAMI LUCAS MD Aug 17, 2020 08:15
--- NOTE | 2020-08-17 09:16 | PDOC ---
[employer] PROGRESS NOTE Date of Service DOS: DATE: 08/17/20 TIME: 09:15 Chief Complaint Chief Complaint A/P: Acute hypoxic respiratory failure requiring VENT SUPPORT STATUS post trach placement 08/06/2020 S/P Peg tube placement 08/09 Acute hypoxic respiratory failure/ARDS /pneumonia Bilateral perihilar and basilar opacities, progressed in the left base. 07-26 COVID-19 Subsegmental bilateral PE Sepsis NSTEMI AKA Lactic acidosis Hyponatremia, RESOLVED hgb 6.5 07-27, transfused 1 unit prbc's - bled on eliquis, now on heparin GTT hypokalemia, on replacement Left pleural effusion Plan: Spontaneous breathing trial today attempt to wean to extubate Appreciate pulmonology recommendations Continue current ventilatory support, currently on 70% and PEEP of 6, avoid increasing PEEP 2/2 risk of barotrauma Follow chest x-ray and ABG, vent management as per pulmonology Heparin has been transitioned to Xarelto Solu-Medrol 40 mg every 12 hours Appreciate ID recommendationscontinue Remdesivir and empiric antibiotics IV fluids Discussed with RN and JAVIER. Antibiotics per ID-- off ABX, infectious disease following increasing leukocytosis has completed full course of remdesivir continue tube feeding for nutritional support History of Present Illness History of Present Illness 08/12: No acute events overnight. Patient has T-max of 99.7. Currently on minimal vent settings.> 50% time spent in patient chart, labs, and imaging review and in discussion with RN and SW 08/13: Overnight Tmax 100.6F. Tires out easily on vent. 08/14: 101.5 F overnight. Stool sample on urine sample taken today. No growth on cultures as of yet. Still requiring vent support via his trach. No residuals on tube feeds. CT chest with left loculated effusion 08/15: 100.4 F overnight. Left Thoracostomy tube inserted today. Still requiring vent support via trach. 08/16: T-max 100.8 F overnight. Still requiring vent support via trach. Chest tube w/o air leak. T [id number] overnight. Still requiring vent support via trach. Chest tube still with output, no air leak. 08/11/2020 No acute events overnight. Patient with T-max of 100.8 overnight. Currently on minimal vent settings. Trached and pegged. Social work following for Medicare approval.> 50% time spent in patient chart, labs, and imaging review and in discussion with RN and JAVIER 08/10/2020 no acute events overnight. Patient is on minimal vent settings. PEG tube placed yesterday. Will attempt to wean to extubate today.> 50% time spent in patient chart, labs, and imaging review and in discussion with RN and SW 08/09/2020 No acute events overnight. T-max of 100.0 F. Patient is on minimal ventilatory settings.> 50% time spent in patient chart, labs, and imaging review and in discussion with RN and JAVIER 08/08/2020 Patient tolerating trach and ventilatory goldy support on 40% FiO2 and 5 of PEEP. Pending PEG tube placement tomorrow.> 50% time spent in patient chart, labs, and imaging review and in discussion with RN and JAVIER 08/07/2020 No acute events overnight. Fever T-max of 101.1. Trach was placed yesterday. On minimal vent settings.> 50% time spent in patient chart, labs, and imaging review and in discussion with RN and JAVIER 08/06/2020 No acute events overnight. Patient is afebrile. Currently on minimal vent settings. Pending trach today. Patient's chart, labs, images were reviewed and discussed with RN A total of 35 minutes of critical care time was spent in reviewing chart, labs, and images. Discussed with RN and JAVIER. 08/05/2020 Patient seen and evaluated. No acute events, febrile overnight. Mechanically ventilated with FiO2 40%, PEEP 6. Plan for trach Thursday. 08/04/2020 Patient seen in [facility] ICU. Still with low-grade fevers. Mechanically ventilated, FiO2 40%, PEEP 6. No acute change, plan for trach Thursday. 08/03/2020 Patient seen in [facility] ICU. Still with low-grade fever. He remains on vent with FiO2 100%, PEEP 12. Plan for trach on Thursday, and PEG at some point after. 08/02/2020 [facility] He is febrile this morning. Still intubated mechanically ventilated with FiO2 40 %, PEEP 6. Plans for tracheostomy today. 08/01/2020 Patient seen in [facility] ICU. Patient remains slightly febrile. Mechanically ventilated, FiO2 45%, PEEP 6. Tracheostomy unable to perform yesterday, general surgery to attempt again today. Discussed with RN. 07/31/2020 Patient still spiking fevers. Patient remains on vent, FiO2 45%, PEEP 6. Tracheostomy tentatively planned for today. 07/30/2020 Patient seen in [place] [address] ICU. He is febrile on vent, FiO2 45%, PEEP 6. Will attempt to speak with family about decision on trach and PEG tube. Discussed with RN. t max 102 f fio2 50% 07/21/2020 Patient no acute events reported overnight. Patient continues to require a lot of support from vent. Discussed with RN 09/19/2019 Patient continues to be pretty much the same , fio2 is at 70%, heparin 07/19/2020 Patient hypotensive today, we will follow recommendations from critical ocular care technologist. Vent management as per residential solar consultant, no other complaints. 07/18/2020 Patient with no acute events reported overnight, fio2 is now at 75% PEEP of 6, Vent management as per pulmonary residential solar consultant slight increase in temperature noted over the lat 24 hours. Will continue to follow 07/17/2020 Patient with no acute events reported overnight, contineus to require an fio2 of 80%, continue with supportive measures. 07/16/2020 Patient with no acute events reported overnight, patient continues to require quite a bit of FiO2 at 80%. Vent management as per residential solar consultant, will place a call to family members after rounding. Discussed with RN 07/15/2020 Patient seen and examined bedside in the ICU. FiO2 80% PEEP of 6.pH 7.56, PCO2 32, PO2 56, HCO3 28. Will adjust respiratory rate accordingly to correct pH.> 50% time spent in patient chart, labs, and imaging review and in discussion with RN and JAVIER 07/14/2020 Patient seen and examined bedside. FiO2 65% and PEEP of 6 on vent. ABG: pH 7.26, PCO2 77, PO2 114, HCO3 34. We will adjust respiratory rate or tidal volume to titrate pH.> 50% time spent in patient chart, labs, and imaging review and in discussion with LIANE and JAVIER 07/13/2020 No acute events overnight. Patient examined bedside sedated and intubated. FiO2 70% PEEP of 6. Improved ABGs.> 50% time spent in patient chart, labs, and imaging review and in discussion with RN and JAVIER 07/12/2020 Patient seen and examined in the ICU. Sedated and intubated. FiO2 65, PEEP of 8 with improved oxygenation. pH 7.4, PCO2 48, PO2 94, HCO3 30. +500 cc fluid balance.> 50% time spent in patient chart, labs, and imaging review and in discussion with RN and SW 07/11/2020 Patient seen and examined bedside in the ICU. Patient continues to be intubated and sedated. FiO2 75%, PEEP of 10. pH 7.40, PCO2 44, PO2 is 135, HCO3 26. Can likely decrease FiO2 due to improved oxygenation. +173 cc in the past 24 hours 07/10/2020 Patient seen and examined bedside in ICU. Patient is intubated and sedated. FiO2 90%, PEEP of 10, respiratory rate of 30. ABG: pH is 7.41, PCO2 42, PO2 113, HCO3 26. 07/09/2020 Patient seen and examined in the ICU. Intubated and sedated. Vent settings FiO2 90%, PEEP of 10, respiratory rate of 30. 07/05: Patient seen in ICU, still intubated and sedated. COVID-19 pending. Patient remains on heparin infusion. Discussed with RN, will try to have central line placed per anesthesia. 07/06: Patient seen in ICU. Still FiO2 100% on vent and sedated. COVID-19 positive. Continue heparin infusion, Zosyn, steroids. 07/07: Covid positive patient seen in ICU. On vent with FiO2 100%, PEEP 10. Continue remdesivir, steroids, Zosyn. Continue to monitor 07/08: Patient seen in [facility]id ICU. Still on vent with FiO2 100%, PEEP 10. Afebrile. No acute events overnight. Continue steroids, antibiotics, and remdesivir. Patient is 49-year-old male with past medical history of hypertension, who presents to the ED with complaints of worsening shortness of breath over the past 5 days. Associated sore throat, fatigue, and generalized weakness. Patient was reportedly tested for COVID-19 last Thursday, but he had negative test results. His symptoms acutely worsened yesterday. Upon arrival to the ER his oxygen saturation was 60% on room air. He was placed on BiPAP and admitted to the ICU. Patient was subsequently intubated due to worsening respiratory failure. Vitals/I&O Vitals/I&O: Vital Signs Date Time Temp Pulse Resp B/P (MAP) Pulse Ox O2 Delivery O2 Flow Rate FiO2 12/25/20 08:00 100.0 102 24 147/84 (105) 98 Tracheal Collar 10.0 100.0 I & O 08/16/20 08/16/20 08/17/20 15:00 23:00 07:00 Intake Total 250 ml 736 ml 604 ml Output Total 1535 ml 2310 ml 1785 ml Balance -1285 ml -1574 ml -1181 ml Physical Exam Physical Exam: General on vent,alert HEENT normocephalic atraumatic , trach LUNGS: Clear anteriorly, left CTS HEART: S1-S2 no murmurs ABDOMEN: mildly distended, soft bowel sounds present Fernandez in place,fecal tube in place SKIN: No generalized rash Right upper extremity PICC line removed PIVs Clean Neuro alert awake General: Other (sedated ) Lungs: Clear Labs Labs: Laboratory Tests Test 08/16/20 11:51 08/16/20 18:00 08/17/20 04:00 Glucose (Fingerstick) 136 mg/dL (70-99) 119 mg/dL (70-99) White Blood Count 14.6 x10^3/uL (4.0-11.0) Red Blood Count 3.19 x10^6/uL (4.30-5.70) Hemoglobin 9.7 g/dL (13.0-17.5) Hematocrit 29.8 % (39.0-53.0) Mean Corpuscular Volume 93 fL (79-100) Mean Corpuscular Hemoglobin 30 pg (25-35) Mean Corpuscular Hemoglobin Concent 33 g/dL (31-37) Red Cell Distribution Width 16.3 % (11.5-14.5) Platelet Count 312 x10^3/uL (140-400) Heparin Anti-Xa Act, Unfractionated 0.74 IU/mL (0.30-0.70) Sodium Level 138 mmol/L (136-145) Potassium Level 3.4 mmol/L (3.5-5.1) Chloride Level 101 mmol/L (98-107) Carbon Dioxide Level 31 mmol/L (21-32) Anion Gap 6 (6-14) Blood Urea Nitrogen 7 mg/dL (8-26) Creatinine 0.7 mg/dL (0.7-1.3) Estimated GFR (Cockcroft-Gault) 119.4 Glucose Level 133 mg/dL (70-99) Calcium Level 8.1 mg/dL (8.5-10.1) Assessment and Plan Assessmemt and Plan Problems Medical Problems: (1) Acute respiratory failure with hypoxia Status: Acute (2) PRIYA (acute kidney injury) Status: Acute (3) Elevated troponin I level Status: Acute (4) Pulmonary emboli Status: Acute (5) Suspected COVID-19 virus infection Status: Acute Comment Review of Relevant I have reviewed the following items trino (where applicable) has been applied. Justifications for Admission Other Justification NEIL PATEL MD Aug 17, 2020 09:16
--- NOTE | 2020-08-17 09:32 | PDOC ---
PULMONARY PROGRESS NOTES DATE: 08/17/20 TIME: 09:30 Subjective PT. tolerating TS well Status post tracheostomy on 08/06/2020 and S/P peg tube on 08/09 Continues to have low grade fevers s/p left chest tube, 2 litres came out No other concerns from nursing overnight Vitals Vital Signs Date Time Temp Pulse Resp B/P (MAP) Pulse Ox O2 Delivery O2 Flow Rate FiO2 08/17/20 09:00 97 32 138/76 (96) 98 Tracheal Collar 3.0 08/17/20 08:00 100.0 100.0 Comments General: Alert, No acute distress Lungs: Clear Cardiovascular: S1, S2 Abdomen: Soft Neuro Exam: Alert Extremities: No Edema Skin: Warm, Dry Labs Laboratory Tests Test 08/15/20 11:51 08/15/20 12:45 08/15/20 17:42 08/15/20 20:33 Glucose (Fingerstick) 150 mg/dL (70-99) 145 mg/dL (70-99) Body Fluid pH 7.73 Body Fluid Glucose 124 mg/dL (.) Body Fluid Total Protein 3.8 g/dL (.) Body Fluid Lactate Dehydrogenase 191 IU/L (.) Heparin Anti-Xa Act, Unfractionated 0.37 IU/mL (0.30-0.70) Test 08/15/20 23:11 08/16/20 04:00 08/16/20 05:29 08/16/20 11:51 Glucose (Fingerstick) 157 mg/dL (70-99) 144 mg/dL (70-99) 136 mg/dL (70-99) Heparin Anti-Xa Act, Unfractionated 0.59 IU/mL (0.30-0.70) Test 08/16/20 18:00 08/17/20 04:00 Glucose (Fingerstick) 119 mg/dL (70-99) White Blood Count 14.6 x10^3/uL (4.0-11.0) Red Blood Count 3.19 x10^6/uL (4.30-5.70) Hemoglobin 9.7 g/dL (13.0-17.5) Hematocrit 29.8 % (39.0-53.0) Mean Corpuscular Volume 93 fL (79-100) Mean Corpuscular Hemoglobin 30 pg (25-35) Mean Corpuscular Hemoglobin Concent 33 g/dL (31-37) Red Cell Distribution Width 16.3 % (11.5-14.5) Platelet Count 312 x10^3/uL (140-400) Heparin Anti-Xa Act, Unfractionated 0.74 IU/mL (0.30-0.70) Sodium Level 138 mmol/L (136-145) Potassium Level 3.4 mmol/L (3.5-5.1) Chloride Level 101 mmol/L (98-107) Carbon Dioxide Level 31 mmol/L (21-32) Anion Gap 6 (6-14) Blood Urea Nitrogen 7 mg/dL (8-26) Creatinine 0.7 mg/dL (0.7-1.3) Estimated GFR (Cockcroft-Gault) 119.4 Glucose Level 133 mg/dL (70-99) Calcium Level 8.1 mg/dL (8.5-10.1) Laboratory Tests Test 08/16/20 11:51 08/16/20 18:00 08/17/20 04:00 Glucose (Fingerstick) 136 mg/dL (70-99) 119 mg/dL (70-99) White Blood Count 14.6 x10^3/uL (4.0-11.0) Red Blood Count 3.19 x10^6/uL (4.30-5.70) Hemoglobin 9.7 g/dL (13.0-17.5) Hematocrit 29.8 % (39.0-53.0) Mean Corpuscular Volume 93 fL (79-100) Mean Corpuscular Hemoglobin 30 pg (25-35) Mean Corpuscular Hemoglobin Concent 33 g/dL (31-37) Red Cell Distribution Width 16.3 % (11.5-14.5) Platelet Count 312 x10^3/uL (140-400) Heparin Anti-Xa Act, Unfractionated 0.74 IU/mL (0.30-0.70) Sodium Level 138 mmol/L (136-145) Potassium Level 3.4 mmol/L (3.5-5.1) Chloride Level 101 mmol/L (98-107) Carbon Dioxide Level 31 mmol/L (21-32) Anion Gap 6 (6-14) Blood Urea Nitrogen 7 mg/dL (8-26) Creatinine 0.7 mg/dL (0.7-1.3) Estimated GFR (Cockcroft-Gault) 119.4 Glucose Level 133 mg/dL (70-99) Calcium Level 8.1 mg/dL (8.5-10.1) Comments CXR 08/14 IMPRESSION: worsening loculated left effusion, bilateral infiltrates CT CHEST 08/14 1. Marked interval enlargement of left lateral effusion. This could be causing some mass effect on the mediastinum. 2. Extensive pleural-parenchymal scarring and patchy airspace opacities in the lungs compatible with the sequelae of atypical pneumonia. Electronically signed by: Gosia Li MD (08/14/2020 1:28 PM) [id number] Impression . IMPRESSION: 1. Acute hypoxemic respiratory failure./ALI/ARDS due to COVID -19 2. Acute pulmonary embolism 3. COVID-19 pnemonia.now with persistent fevers, suspect VAP/ less likely empyema ( based on analysis) 5. Hypertension. 6. History of bronchitis. 7. Elevated troponin. 8. Acute kidney injury. 9. Leukocytosis. 10. Covid-[address] chest 08/14 , large left effusion, improved post chest tube left Plan . Continue TS 24 hrs s/p left chest tube, non purulent, await analysis, normal PH, monitor output Status post tracheostomy 08/06 and S/P Peg tube placement 08/09 heparin gtt/ monitor hemoglobin repeat CTA chest for PE. f/u, dopplers neg f/u chest x-ray 08/17 improved effusion Follow cardiology recommendations Antibiotics per ID--AFB negative, repeat cultures negative, continues to have low grade fevers, currently on humberto, zyvox Has completed full course of remdesivir Continue tube feeding for nutritional support DVT/GI prophylaxis,Protonix-- heparin gtt Discussed with RN and RT Pt. is FULL CODE critically ill Critical care time 30 min NERY SALINAS MD Aug 17, 2020 09:32
[2020-08-17] MEDS: fentaNYL PF VIAL 100 MCG/2 ML VIAL IVP PRN ×2 (09:39→17:56)
--- NOTE | 2020-08-17 11:15 | NUR ---
Patient complaining of pain in his stomach with slight nausea, put TF on hold to see if this helps relieve some of his pain.
[2020-08-17] MEDS: DEXMEDETOMIDINE 400 MCG in IV NORMAL SALINE 100ML 96 ML IV PRN (11:29)
--- NOTE | 2020-08-17 14:34 | RAD ---
CT angiogram of the chest with contrast: Reason for examination: Follow-up pulmonary embolus. Comparison is made to previous study dated 08/14/2020 and 07/03/2020. Helical images were obtained through the chest with intravenous administration of 100 cc Omnipaque 35 0 using PE protocol. 3-D MIPS reconstruction was performed in sagittal and coronal planes. Exposure: One or more of the following individualized dose reduction techniques were utilized for thi s examination: 1. Automated exposure control 2. Adjustment of the mA and/or kV according to patient size 3. Use of iterative reconstruction technique. Tracheostomy tube is in place. The trachea and mainstem bronchi show no intraluminal lesions. No abno rmality seen at the esophagus. The heart size is upper normal with no pericardial effusion. The thora cic aorta is normal in course and caliber with no aneurysm or dissection. There has been improvement in the pulmonary emboli seen previously with only small pulmonary emboli seen in the lower lobes. Con tinues to be a moderate left pleural effusion postthoracentesis with left chest tube present posterio r inferiorly. There is also a small right pleural effusion layering posteriorly. There are diffuse in terstitial and patchy alveolar opacities bilaterally. There also continue to be cystic structures ant erior medially in the periphery of the upper lobes bilaterally which are unchanged. There also contin ues to be some loculated fluid adjacent to the left mediastinum which appears to be somewhat smaller than on previous exam. No abnormality seen at the visualized portion of the liver, spleen or adrenal glands. IMPRESSION: Decreased left pleural effusion postthoracentesis. Continued presence of bilateral pleural effusion, left greater than right. Continued presence of diffuse interstitial and patchy alveolar opacities shanel aterally without significant change. Continued presence of small pulmonary emboli in the lower lobes but improved when compared to previous exam. Electronically signed by: Swapna Watters MD (08/17/2020 2:32 PM) [id number]
[2020-08-18] VITALS (17 sets, daily range): BP systolic 94–154; BP diastolic 57–87
[2020-08-18] MEDS: MEROPENEM 500 MG in IV NORMAL SALINE 50ML 50 ML IV SCH ×5 (00:35→23:37)
[2020-08-18] MEDS: ACETAMINOPHEN 650 MG/20.3 ML SOLUTION. PEG PRN ×2 (00:35→21:58)
[2020-08-18] MEDS: PROCHLORPERAZINE 10 MG/2 ML VIAL. IV PRN (00:45)
[2020-08-18] MEDS: HEPARIN 25,000UTS/250ML PREMIX 250 ML IV PRN (00:46)
[2020-08-18] MEDS: INSULIN LISPRO 300 UNITS/3 ML VIAL. SQ SCH ×5 (06:00→23:37)
--- NOTE | 2020-08-18 06:04 | RAD ---
Single view chest dated 08/18/2020. Comparison made to 08/17/2020. CLINICAL INDICATION: Follow-up chest tube. FINDINGS: Single upright portable exam performed. Heart size is mildly enlarged, stable. Tracheostomy tube in p lace, unchanged. There is also a pigtail chest tube at the left base, unchanged. There is perihilar airspace disease with coarsened interstitial markings. There is been mild improvem ent in consolidation at the left lung base with blunting of left costophrenic sulcus. No pneumothorax . IMPRESSION: 1. Mild improvement in bilateral airspace disease. 2. Decrease in left pleural effusion with chest tube in place. No apparent pneumothorax. Electronically signed by: Jorge Brown MD (08/18/2020 6:01 AM) ERIC
[2020-08-18 06:14] LABS: BASO # 0.1 x10^3/uL (0.0-0.2); BASO % 1 % (0-3); EOS % 7 % (0-3); HEMATOCRIT 29.8 % (39.0-53.0); HEMOGLOBIN 9.7 g/dL (13.0-17.5); LYMPH # 2.6 x10^3/uL (1.0-4.8); LYMPH % 17 % (24-48); MEAN CORPUSCULAR HEMOGLOBIN 31 pg (25-35); MEAN CORPUSCULAR HGB CONC 33 g/dL (31-37); MEAN CORPUSCULAR VOLUME 94 fL (79-100); MONO # 1.4 x10^3/uL (0.0-1.1); MONO % 9 % (0-9); NEUT # 10.3 x10^3/uL (1.8-7.7); NEUT % 67 % (31-73); PLATELET COUNT 294 x10^3/uL (140-400); RED BLOOD COUNT 3.16 x10^6/uL (4.30-5.70); RED CELL DISTRIBUTION WIDTH 16.9 % (11.5-14.5); WHITE BLOOD COUNT 15.4 x10^3/uL (4.0-11.0)
[2020-08-18 06:22] LABS: CALCIUM 8.6 mg/dL (8.5-10.1); CREATININE 0.8 mg/dL (0.7-1.3); GFR 102.3; POTASSIUM 3.5 mmol/L (3.5-5.1)
[2020-08-18] MEDS: CHOLECALCIFEROL (VITAMIN D3) 5,000 UNIT CAPSULE PO SCH (08:26)
[2020-08-18] MEDS: ZINC SULFATE 220 MG CAPSULE. PO SCH (08:26)
[2020-08-18] MEDS: PANTOPRAZOLE IV PUSH 40 MG VIAL. IVP SCH (08:26)
--- NOTE | 2020-08-18 09:15 | PDOC ---
[employer] PROGRESS NOTE Date of Service DOS: DATE: 08/18/20 TIME: 08:52 Chief Complaint Chief Complaint A/P: Acute hypoxic respiratory failure requiring VENT SUPPORT STATUS post trach placement 08/06/2020 S/P Peg tube placement 08/09 Acute hypoxic respiratory failure/ARDS /pneumonia Bilateral perihilar and basilar opacities, progressed in the left base. 07-26 COVID-19 Subsegmental bilateral PE Sepsis NSTEMI AKA Lactic acidosis Hyponatremia, RESOLVED hgb 6.5 07-27, transfused 1 unit prbc's - bled on eliquis, now on heparin GTT hypokalemia, on replacement Left pleural effusion Plan: Spontaneous breathing trial today attempt to wean to extubate Appreciate pulmonology recommendations Continue current ventilatory support, currently on 70% and PEEP of 6, avoid increasing PEEP 2/2 risk of barotrauma Follow chest x-ray and ABG, vent management as per pulmonology Heparin has been transitioned to Xarelto Solu-Medrol 40 mg every 12 hours Appreciate ID recommendationscontinue Remdesivir and empiric antibiotics IV fluids Discussed with RN and JAVIER. Antibiotics per ID-- off ABX, infectious disease following increasing leukocytosis has completed full course of remdesivir continue tube feeding for nutritional support History of Present Illness History of Present Illness 08/12: No acute events overnight. Patient has T-max of 99.7. Currently on minimal vent settings.> 50% time spent in patient chart, labs, and imaging review and in discussion with RN and JAVIER 08/13: Overnight Tmax 100.6F. Tires out easily on vent. 08/14: 101.5 F overnight. Stool sample on urine sample taken today. No growth on cultures as of yet. Still requiring vent support via his trach. No residuals on tube feeds. CT chest with left loculated effusion 08/15: 100.4 F overnight. Left Thoracostomy tube inserted today. Still requiring vent support via trach. 08/16: T-max 100.8 F overnight. Still requiring vent support via trach. Chest tube w/o air leak. 08/17: T [id number] overnight. Still requiring vent support via trach. Chest tube still with output, no air leak. T-max 100.4 F overnight. On trach collar 30 L O2 currently. Minimal chest tube output, improved. CTPA still with left pulmonary embolism. Plan: Restart eliquis Chest tube per pulm - likely remove Ok to transfer to CVC on trach shield 08/11/2020 No acute events overnight. Patient with T-max of 100.8 overnight. Currently on minimal vent settings. Trached and pegged. Social work following for Medicare approval.> 50% time spent in patient chart, labs, and imaging review and in discussion with RN and SW 08/10/2020 no acute events overnight. Patient is on minimal vent settings. PEG tube placed yesterday. Will attempt to wean to extubate today.> 50% time spent in patient chart, labs, and imaging review and in discussion with RN and SW 08/09/2020 No acute events overnight. T-max of 100.0 F. Patient is on minimal ventilatory settings.> 50% time spent in patient chart, labs, and imaging review and in discussion with RN and SW 08/08/2020 Patient tolerating trach and ventilatory goldy support on 40% FiO2 and 5 of PEEP. Pending PEG tube placement tomorrow.> 50% time spent in patient chart, labs, and imaging review and in discussion with RN and SW 08/07/2020 No acute events overnight. Fever T-max of 101.1. Trach was placed yesterday. On minimal vent settings.> 50% time spent in patient chart, labs, and imaging review and in discussion with RN and SW 08/06/2020 No acute events overnight. Patient is afebrile. Currently on minimal vent settings. Pending trach today. Patient's chart, labs, images were reviewed and discussed with RN A total of 35 minutes of critical care time was spent in reviewing chart, labs, and images. Discussed with RN and SW. 08/05/2020 Patient seen and evaluated. No acute events, febrile overnight. Mechanically ventilated with FiO2 40%, PEEP 6. Plan for trach Thursday. 08/04/2020 Patient seen in [facility] ICU. Still with low-grade fevers. Mechanically ventilated, FiO2 40%, PEEP 6. No acute change, plan for trach Thursday. 08/03/2020 Patient seen in [facility] ICU. Still with low-grade fever. He remains on vent with FiO2 100%, PEEP 12. Plan for trach on Thursday, and PEG at some point after. 08/02/2020 Patient seen and evaluated in [facility] ICU. He is febrile this morning. Still intubated mechanically ventilated with FiO2 40 %, PEEP 6. Plans for tracheostomy today. 08/01/2020 Patient seen in [facility] ICU. Patient remains slightly febrile. Mechanically ventilated, FiO2 45%, PEEP 6. Tracheostomy unable to perform yesterday, general surgery to attempt again today. Discussed with RN. 07/31/2020 Patient still spiking fevers. Patient remains on vent, FiO2 45%, PEEP 6. Tracheostomy tentatively planned for today. 07/30/2020 Patient seen in [facility]- ICU. He is febrile on vent, FiO2 45%, PEEP 6. Will attempt to speak with family about decision on trach and PEG tube. Discussed with RN. t max 102 f fio2 50% 07/21/2020 Patient no acute events reported overnight. Patient continues to require a lot of support from vent. Discussed with RN 09/19/2019 Patient continues to be pretty much the same , fio2 is at 70%, heparin 07/19/2020 Patient hypotensive today, we will follow recommendations from critical healthcare administrative assistant. Vent management as per fashion consultant sales, no other complaints. 07/18/2020 Patient with no acute events reported overnight, fio2 is now at 75% PEEP of 6, Vent management as per pulmonary fashion consultant sales slight increase in temperature noted over the lat 24 hours. Will continue to follow 07/17/2020 Patient with no acute events reported overnight, contineus to require an fio2 of 80%, continue with supportive measures. 07/16/2020 Patient with no acute events reported overnight, patient continues to require quite a bit of FiO2 at 80%. Vent management as per fashion consultant sales, will place a call to family members after rounding. Discussed with RN 07/15/2020 Patient seen and examined bedside in the ICU. FiO2 80% PEEP of 6.pH 7.56, PCO2 32, PO2 56, HCO3 28. Will adjust respiratory rate accordingly to correct pH.> 50% time spent in patient chart, labs, and imaging review and in discussion with RN and JAVIER 07/14/2020 Patient seen and examined bedside. FiO2 65% and PEEP of 6 on vent. ABG: pH 7.26, PCO2 77, PO2 114, HCO3 34. We will adjust respiratory rate or tidal volume to titrate pH.> 50% time spent in patient chart, labs, and imaging review and in discussion with RN and JAVIER 07/13/2020 No acute events overnight. Patient examined bedside sedated and intubated. FiO2 70% PEEP of 6. Improved ABGs.> 50% time spent in patient chart, labs, and imaging review and in discussion with RN and JAVIER 07/12/2020 Patient seen and examined in the ICU. Sedated and intubated. FiO2 65, PEEP of 8 with improved oxygenation. pH 7.4, PCO2 48, PO2 94, HCO3 30. +500 cc fluid balance.> 50% time spent in patient chart, labs, and imaging review and in discussion with RN and JAVIER 07/11/2020 Patient seen and examined bedside in the ICU. Patient continues to be intubated and sedated. FiO2 75%, PEEP of 10. pH 7.40, PCO2 44, PO2 is 135, HCO3 26. Can likely decrease FiO2 due to improved oxygenation. +173 cc in the past 24 hours 07/10/2020 Patient seen and examined bedside in ICU. Patient is intubated and sedated. FiO2 90%, PEEP of 10, respiratory rate of 30. ABG: pH is 7.41, PCO2 42, PO2 113, HCO3 26. 07/09/2020 Patient seen and examined in the ICU. Intubated and sedated. Vent settings FiO2 90%, PEEP of 10, respiratory rate of 30. 07/05: Patient seen in ICU, still intubated and sedated. COVID-19 pending. Patient remains on heparin infusion. Discussed with RN, will try to have central line placed per anesthesia. 07/06: Patient seen in ICU. Still FiO2 100% on vent and sedated. COVID-19 positive. Continue heparin infusion, Zosyn, steroids. 07/07: Covid positive patient seen in ICU. On vent with FiO2 100%, PEEP 10. Continue remdesivir, steroids, Zosyn. Continue to monitor 07/08: Patient seen in [facility] ICU. Still on vent with FiO2 100%, PEEP 10. A febrile. No acute events overnight. Continue steroids, antibiotics, and remdesivir. Patient is 49-year-old male with past medical history of hypertension, who presents to the ED with complaints of worsening shortness of breath over the past 5 days. Associated sore throat, fatigue, and generalized weakness. Patient was reportedly tested for COVID-19 last Thursday, but he had negative test results. His symptoms acutely worsened yesterday. Upon arrival to the ER his oxygen saturation was 60% on room air. He was placed on BiPAP and admitted to the ICU. Patient was subsequently intubated due to worsening respiratory fail ure. Vitals/I&O Vitals/I&O: Vital Signs Date Time Temp Pulse Resp B/P (MAP) Pulse Ox O2 Delivery O2 Flow Rate FiO2 08/18/20 08:13 96 Tracheal Collar 8.0 08/18/20 06:00 80 38 103/63 (76) 08/18/20 04:00 98.6 98.6 I & O 08/17/20 08/17/20 08/18/20 15:00 23:00 07:00 Intake Total 150 ml 766 ml 567 ml Output Total 1810 ml 1740 ml 790 ml Balance -1660 ml -974 ml -223 ml Physical Exam Physical Exam: General on vent,alert HEENT normocephalic atraumatic , trach LUNGS: Clear anteriorly, left CTS HEART: S1-S2 no murmurs ABDOMEN: mildly distended, soft bowel sounds present Fernandez in place,fecal tube in place SKIN: No generalized rash Right upper extremity PICC line removed PIVs Clean Neuro alert awake General: Other (sedated ) Lungs: Clear Labs Labs: Laboratory Tests Test 08/17/20 13:10 08/17/20 19:10 08/18/20 00:41 08/18/20 05:45 Heparin Anti-Xa Act, Unfractionated 0.48 IU/mL (0.30-0.70) 0.78 IU/mL (0.30-0.70) > 1.10 IU/mL (0.30-0.70) Glucose (Fingerstick) 90 mg/dL (70-99) White Blood Count 15.4 x10^3/uL (4.0-11.0) Red Blood Count 3.16 x10^6/uL (4.30-5.70) Hemoglobin 9.7 g/dL (13.0-17.5) Hematocrit 29.8 % (39.0-53.0) Mean Corpuscular Volume 94 fL (79-100) Mean Corpuscular Hemoglobin 31 pg (25-35) Mean Corpuscular Hemoglobin Concent 33 g/dL (31-37) Red Cell Distribution Width 16.9 % (11.5-14.5) Platelet Count 294 x10^3/uL (140-400) Neutrophils (%) (Auto) 67 % (31-73) Lymphocytes (%) (Auto) 17 % (24-48) Monocytes (%) (Auto) 9 % (0-9) Eosinophils (%) (Auto) 7 % (0-3) Basophils (%) (Auto) 1 % (0-3) Neutrophils # (Auto) 10.3 x10^3/uL (1.8-7.7) Lymphocytes # (Auto) 2.6 x10^3/uL (1.0-4.8) Monocytes # (Auto) 1.4 x10^3/uL (0.0-1.1) Eosinophils # (Auto) 1.0 x10^3/uL (0.0-0.7) Basophils # (Auto) 0.1 x10^3/uL (0.0-0.2) Sodium Level 137 mmol/L (136-145) Potassium Level 3.5 mmol/L (3.5-5.1) Chloride Level 102 mmol/L (98-107) Carbon Dioxide Level 29 mmol/L (21-32) Anion Gap 6 (6-14) Blood Urea Nitrogen 7 mg/dL (8-26) Creatinine 0.8 mg/dL (0.7-1.3) Estimated GFR (Cockcroft-Gault) 102.3 Glucose Level 142 mg/dL (70-99) Calcium Level 8.6 mg/dL (8.5-10.1) Test 08/18/20 06:31 Glucose (Fingerstick) 124 mg/dL (70-99) Assessment and Plan Assessmemt and Plan Problems Medical Problems: (1) Acute respiratory failure with hypoxia Status: Acute (2) PRIYA (acute kidney injury) Status: Acute (3) Elevated troponin I level Status: Acute (4) Pulmonary emboli Status: Acute (5) Suspected COVID-19 virus infection Status: Acute Comment Review of Relevant I have reviewed the following items trino (where applicable) has been applied. Justifications for Admission Other Justification NEIL PATEL MD Aug 18, 2020 09:15
[2020-08-18] MEDS: LINEZOLID 600 MG TABLET PO SCH ×2 (09:23→21:58)
[2020-08-18] MEDS: APIXABAN 5 MG TABLET. PO SCH ×2 (09:36→21:58)
--- NOTE | 2020-08-18 10:04 | PDOC ---
Infectious Disease Note Subjective: Subjective Patient with trach on vent T-max 100 Vital Signs: Vital Signs Vital Signs Date Time Temp Pulse Resp B/P (MAP) Pulse Ox O2 Delivery O2 Flow Rate FiO2 08/18/20 09:00 78 26 115/65 (82) 100 Tracheal Collar 3.0 08/18/20 08:00 99.3 99.3 Physical Exam: PHYSICAL EXAM General on vent,alert HEENT normocephalic atraumatic , Neck trach present LUNGS: Clear anteriorly, left CTS HEART: S1-S2 no murmurs ABDOMEN: mildly distended, soft bowel sounds present Fernandez in place,fecal tube in place SKIN: No generalized rash Right upper extremity PICC line removed PIVs Clean Neuro alert awake Medications: Inpatient Meds: Current Medications Medications (Trade) Dose Ordered Sig/Natalee Start Time Stop Time Status Last Admin Dose Admin Acetaminophen (Tylenol Supp) 650 mg PRN Q6HRS PRN 08/06/20 20:45 08/07/20 19:28 650 MG Acetaminophen (Tylenol) 650 mg PRN Q6HRS PRN 07/12/20 12:00 08/18/20 00:35 650 MG Apixaban (Eliquis) 5 mg BID 08/18/20 10:00 08/18/20 09:36 5 MG Ascorbic Acid (Vitamin C) 500 mg Q6HRS 07/04/20 18:00 08/05/20 08:39 DC 08/05/20 06:07 500 MG Azithromycin (Zithromax) 500 mg 1X ONCE 07/03/20 19:15 07/03/20 19:19 DC 07/03/20 20:11 500 MG Bupivacaine HCl/ Epinephrine Bitart (Sensorcain-Epi 0.5%-1:[id number] Mpf) 30 ml 1X ONCE 08/06/20 06:30 08/06/20 06:31 DC 08/06/20 15:15 1 ML Cefazolin Sodium/ Dextrose 50 ml @ 100 mls/hr 1X ONCE 08/09/20 11:00 08/09/20 11:29 DC 08/09/20 11:04 100 MLS/HR Ceftriaxone Sodium (Rocephin) 1 gm 1X ONCE 07/03/20 19:15 07/03/20 19:19 DC 07/03/20 20:11 1 GM Cellulose (Surgicel Fibrillar 1x2) 1 each STK-MED ONCE 07/31/20 13:08 07/31/20 13:08 DC Cellulose (Surgicel Hemostat 4x8) 1 each STK-MED ONCE 08/06/20 14:10 08/06/20 14:11 DC Daptomycin 470 mg/ Sodium Chloride 50 ml @ 100 mls/hr Q24H 08/01/20 09:00 08/05/20 11:20 DC 08/05/20 09:24 100 MLS/HR Dexmedetomidine HCl 400 mcg/ Sodium Chloride 100 ml @ 0 mls/hr CONT PRN 08/11/20 10:00 08/17/20 11:29 4.1 MLS/HR Dextrose (Dextrose 50%-Water Syringe) 12.5 gm PRN Q15MIN PRN 08/14/20 08:00 UNV Enoxaparin Sodium (Lovenox 150mg Syringe) 150 mg 1X ONCE 07/03/20 23:00 07/03/20 23:01 DC 07/03/20 22:45 150 MG Etomidate (Amidate) 10 mg 1X ONCE 07/04/20 09:30 07/04/20 09:31 DC 07/04/20 09:37 10 MG Fentanyl Citrate (Fentanyl 2ml Vial) 50 mcg 1X ONCE 08/15/20 14:15 08/15/20 14:18 DC 08/15/20 14:29 50 MCG Furosemide (Lasix) 20 mg 1X ONCE 07/29/20 06:30 07/29/20 06:31 DC 07/29/20 06:35 20 MG Heparin Sodium (Porcine) (Heparin Sodium) 1,250 unit PRN Q6HRS PRN 08/11/20 14:30 08/18/20 10:00 DC 08/14/20 22:56 1,250 UNIT Heparin Sodium/ Dextrose 250 ml @ 0 mls/hr CONT PRN 08/11/20 14:30 08/18/20 10:00 DC 08/18/20 00:46 26.2 MLS/HR Hydromorphone HCl (Dilaudid) 0.5 mg PRN Q10MIN PRN 08/06/20 07:00 08/07/20 06:59 DC Info (Anti-Coagulation Monitoring By Pharmacy) 1 each PRN DAILY PRN 07/16/20 08:15 08/14/20 09:40 1 EACH Info (CONTRAST GIVEN -- Rx MONITORING) 1 each PRN DAILY PRN 08/17/20 05:45 08/19/20 05:44 Info (Icu Electrolyte Protocol) 1 ea CONT PRN PRN 07/24/20 15:45 Insulin Human Lispro (HumaLOG) 0-7 UNITS Q6HRS 08/14/20 12:00 08/15/20 23:18 3 UNITS Iohexol (Omnipaque 350 Mg/ml) 100 ml 1X ONCE 08/17/20 05:45 08/17/20 05:46 DC 08/17/20 05:45 100 ML Levofloxacin/ Dextrose 150 ml @ 100 mls/hr Q24H 08/02/20 09:00 08/05/20 11:20 DC 08/05/20 07:16 100 MLS/HR Lidocaine HCl (Buffered Lidocaine 1%) 6 ml 1X ONCE 08/15/20 13:00 08/15/20 13:01 DC 08/15/20 13:07 5 ML Lidocaine HCl (Xylocaine-Mpf 1% 2ml Vial) 2 ml PRN 1X PRN 08/06/20 07:00 08/07/20 06:59 DC Linezolid (Zyvox) 600 mg BID 08/14/20 09:00 08/18/20 09:23 600 MG Linezolid/Dextrose 300 ml @ 300 mls/hr Q12HR 07/27/20 12:30 07/31/20 07:36 DC 07/30/20 21:47 300 MLS/HR Lorazepam (Ativan Inj) 2 mg PRN Q1HR PRN 07/21/20 12:30 08/18/20 00:45 2 MG Magnesium Sulfate 100 ml @ 50 mls/hr DAILY 08/13/20 00:00 08/16/20 00:00 DC 08/15/20 08:43 50 MLS/HR Meclizine HCl (Antivert) 25 mg PRN DAILY PRN 08/12/20 23:00 Meropenem 500 mg/ Sodium Chloride 50 ml @ 100 mls/hr Q6HRS 08/14/20 09:00 08/18/20 06:28 100 MLS/HR Methylprednisolone Sodium Succinate (SOLU-Medrol 40MG VIAL) 40 mg DAILY 07/21/20 09:00 07/22/20 09:36 DC 07/22/20 09:08 40 MG Midazolam HCl (Versed) 5 mg STK-MED ONCE 07/04/20 09:21 07/04/20 09:21 DC Morphine Sulfate (Morphine Sulfate) 1 mg PRN Q10MIN PRN 08/06/20 07:00 08/07/20 06:59 DC Multi-Ingred Cream/Lotion/Oil/ Oint (Artificial Tears Eye Ointment) 1 wenceslao PRN Q1HR PRN 07/18/20 10:45 07/27/20 17:19 1 WENCESLAO Norepinephrine Bitartrate 8 mg/ Dextrose 258 ml @ 16.061 mls/ hr CONT PRN 07/04/20 13:15 07/18/20 11:01 DC 07/05/20 00:33 28.909 MLS/HR Ondansetron HCl (Zofran) 4 mg PRN Q6HRS PRN 08/06/20 07:00 08/07/20 06:59 DC Pantoprazole Sodium (PROTONIX VIAL for IV PUSH) 40 mg DAILYAC 07/04/20 12:30 08/18/20 08:26 40 MG Piperacillin Sod/ Tazobactam Sod (Zosyn Per Pharmacy) 1 each PRN DAILY PRN 07/04/20 12:00 07/18/20 07:46 DC Piperacillin Sod/ Tazobactam Sod 3.375 gm/Sodium Chloride 50 ml @ 100 mls/hr Q6HRS 07/04/20 12:00 07/17/20 11:11 DC 07/17/20 05:10 100 MLS/HR Piperacillin Sod/ Tazobactam Sod 4.5 gm/Sodium Chloride 100 ml @ 200 mls/hr Q6HRS 07/24/20 12:00 07/26/20 10:53 DC 07/26/20 05:36 200 MLS/HR Potassium Bicarbonate (Potassium Effervescent Tablet) 40 meq 1X ONCE 08/15/20 09:45 08/15/20 09:46 DC 08/15/20 10:25 40 MEQ Potassium Chloride/Water 100 ml @ 100 mls/hr Q1H 08/13/20 13:00 08/13/20 16:59 DC 08/13/20 18:10 100 MLS/HR Potassium Phosphate 13.6 mmol/Sodium Chloride 254.5333 ml @ 62.5 mls/hr Q4H 07/24/20 15:30 07/25/20 03:29 UNV Prochlorperazine Edisylate (Compazine) 10 mg PRN Q6HRS PRN 08/12/20 21:30 08/18/20 00:45 10 MG Propofol 100 ml @ 0 mls/hr CONT PRN 07/04/20 09:15 08/11/20 06:42 14.9 MLS/HR Remdesivir 100 mg/ Sodium Chloride 230 ml @ 460 mls/hr Q24H 07/07/20 14:30 07/10/20 14:59 DC 07/10/20 13:59 460 MLS/HR Remdesivir 200 mg/ Sodium Chloride 210 ml @ 210 mls/hr 1X ONCE 07/06/20 14:30 07/06/20 15:29 DC 07/06/20 14:51 210 MLS/HR Ringer's Solution 1,000 ml @ 30 mls/hr Q24H 08/09/20 06:00 08/09/20 17:59 DC 08/09/20 06:11 30 MLS/HR Rocuronium [place] (Zemuron) 50 mg STK-MED ONCE 08/06/20 15:19 08/06/20 15:19 DC Sevoflurane (Ultane) 30 ml STK-MED ONCE 08/06/20 15:18 08/06/20 15:19 DC Sodium Chloride 1,000 ml @ 100 mls/hr Q10H 08/07/20 12:00 08/12/20 10:50 DC 08/11/20 16:30 100 MLS/HR Sodium Phosphate 20 mmol/Sodium Chloride 256.6667 ml @ 62.5 mls/hr 1X ONCE 07/24/20 15:30 07/24/20 19:36 UNV Sodium Phosphate 30 mmol/Sodium Chloride 260 ml @ 62.5 mls/hr 1X ONCE 07/24/20 15:30 07/24/20 19:39 UNV Succinylcholine Chloride (Anectine) 200 mg 1X ONCE 07/04/20 09:30 07/04/20 09:31 DC 07/04/20 09:38 200 MG Throat Lozenges (Cepacol Sore Throat Lozenge) 1 lety PRN Q2HRS PRN 07/04/20 01:15 Vancomycin HCl (Vanco Per Pharmacy) 1 each PRN DAILY PRN 08/11/20 13:30 08/14/20 08:03 DC 08/13/20 15:09 1 EACH Vancomycin HCl (Vancomycin Trough Level) 1 each 1X ONCE 08/13/20 14:30 08/13/20 14:31 DC Vancomycin HCl 1.25 gm/Sodium Chloride 250 ml @ 167 mls/hr Q8H 07/25/20 15:00 07/26/20 07:31 DC 07/25/20 22:44 167 MLS/HR Vancomycin HCl 1.5 gm/Sodium Chloride 500 ml @ 250 mls/hr Q8H 08/11/20 23:00 08/12/20 15:13 DC 08/12/20 14:49 250 MLS/HR Vancomycin HCl 1.75 gm/Sodium Chloride 500 ml @ 250 mls/hr Q8H 08/12/20 23:00 08/14/20 08:01 DC 08/14/20 07:04 250 MLS/HR Vancomycin HCl 2 gm/Sodium Chloride 500 ml @ 250 mls/hr 1X ONCE 07/25/20 07:00 07/25/20 08:59 DC 07/25/20 07:06 250 MLS/HR Vecuronium [place] 50 mg/ Miscellaneous 50 ml @ 4.094 mls/ hr CONT PRN 07/12/20 14:45 07/22/20 09:34 DC 07/18/20 01:56 7.5 MLS/HR Vecuronium [place] (Norcuron Bolus) 6 mg PRN Q6HRS PRN 07/28/20 23:00 08/09/20 15:05 6 MG Vitamin D (Vitamin D3) 5,000 unit DAILY 07/05/20 09:00 08/18/20 08:26 5,000 UNIT Zinc Sulfate (Orazinc) 220 mg DAILY 07/05/20 09:00 08/18/20 08:26 220 MG Labs: Lab Laboratory Tests Test 08/17/20 13:10 08/17/20 19:10 08/18/20 00:41 08/18/20 05:45 Heparin Anti-Xa Act, Unfractionated 0.48 IU/mL (0.30-0.70) 0.78 IU/mL (0.30-0.70) > 1.10 IU/mL (0.30-0.70) Glucose (Fingerstick) 90 mg/dL (70-99) White Blood Count 15.4 x10^3/uL (4.0-11.0) Red Blood Count 3.16 x10^6/uL (4.30-5.70) Hemoglobin 9.7 g/dL (13.0-17.5) Hematocrit 29.8 % (39.0-53.0) Mean Corpuscular Volume 94 fL (79-100) Mean Corpuscular Hemoglobin 31 pg (25-35) Mean Corpuscular Hemoglobin Concent 33 g/dL (31-37) Red Cell Distribution Width 16.9 % (11.5-14.5) Platelet Count 294 x10^3/uL (140-400) Neutrophils (%) (Auto) 67 % (31-73) Lymphocytes (%) (Auto) 17 % (24-48) Monocytes (%) (Auto) 9 % (0-9) Eosinophils (%) (Auto) 7 % (0-3) Basophils (%) (Auto) 1 % (0-3) Neutrophils # (Auto) 10.3 x10^3/uL (1.8-7.7) Lymphocytes # (Auto) 2.6 x10^3/uL (1.0-4.8) Monocytes # (Auto) 1.4 x10^3/uL (0.0-1.1) Eosinophils # (Auto) 1.0 x10^3/uL (0.0-0.7) Basophils # (Auto) 0.1 x10^3/uL (0.0-0.2) Sodium Level 137 mmol/L (136-145) Potassium Level 3.5 mmol/L (3.5-5.1) Chloride Level 102 mmol/L (98-107) Carbon Dioxide Level 29 mmol/L (21-32) Anion Gap 6 (6-14) Blood Urea Nitrogen 7 mg/dL (8-26) Creatinine 0.8 mg/dL (0.7-1.3) Estimated GFR (Cockcroft-Gault) 102.3 Glucose Level 142 mg/dL (70-99) Calcium Level 8.6 mg/dL (8.5-10.1) Test 08/18/20 06:31 Glucose (Fingerstick) 124 mg/dL (70-99) Objective: Assessment: Left pleural effusion status post CTS August 15 Left thoracocentesis with CTS pH 7.73, cell count, glucose, protein .ldh noted, cult neg Fevers Source ?? Leukocytosis improved COVID-19 positive. Status post remdesivir, steroids Acute hypoxic respiratory failure/ARDS /pneumonia H/O Bilateral pulmonary emboli. Hypertension. Bacteremia 07/23 08/25 bottles staph hominis likely contaminant Repeat blood cultures staph capitis likely contaminant Repeat BC 08/06 staph pettenkori likely contaminant Enterobacter UTI and pneumonia Treated Plan: Plan of Care Cont zyvox and Merrem 08/14 C. difficile negative f/u cults negative so far Tracheal aspirate for afb stain and cultures negative so far D/W JAMI LUCAS MD Aug 18, 2020 10:04
--- NOTE | 2020-08-18 10:23 | PDOC ---
PULMONARY PROGRESS NOTES DATE: 08/18/20 TIME: 10:17 Subjective PT. tolerating TS well Status post tracheostomy on 08/06/2020 and S/P peg tube on 08/09 Continues to have low grade fevers s/p left chest tube, 2 litres came out No other concerns from nursing overnight Vitals Vital Signs Date Time Temp Pulse Resp B/P (MAP) Pulse Ox O2 Delivery O2 Flow Rate FiO2 08/18/20 09:00 78 26 115/65 (82) 100 Tracheal Collar 3.0 08/18/20 08:00 99.3 99.3 Comments General: Alert, No acute distress Lungs: Clear Cardiovascular: S1, S2 Abdomen: Soft Neuro Exam: Alert Extremities: No Edema Skin: Warm, Dry Labs Laboratory Tests Test 08/16/20 11:51 08/16/20 18:00 08/17/20 04:00 08/17/20 13:10 Glucose (Fingerstick) 136 mg/dL (70-99) 119 mg/dL (70-99) White Blood Count 14.6 x10^3/uL (4.0-11.0) Red Blood Count 3.19 x10^6/uL (4.30-5.70) Hemoglobin 9.7 g/dL (13.0-17.5) Hematocrit 29.8 % (39.0-53.0) Mean Corpuscular Volume 93 fL (79-100) Mean Corpuscular Hemoglobin 30 pg (25-35) Mean Corpuscular Hemoglobin Concent 33 g/dL (31-37) Red Cell Distribution Width 16.3 % (11.5-14.5) Platelet Count 312 x10^3/uL (140-400) Heparin Anti-Xa Act, Unfractionated 0.74 IU/mL (0.30-0.70) 0.48 IU/mL (0.30-0.70) Sodium Level 138 mmol/L (136-145) Potassium Level 3.4 mmol/L (3.5-5.1) Chloride Level 101 mmol/L (98-107) Carbon Dioxide Level 31 mmol/L (21-32) Anion Gap 6 (6-14) Blood Urea Nitrogen 7 mg/dL (8-26) Creatinine 0.7 mg/dL (0.7-1.3) Estimated GFR (Cockcroft-Gault) 119.4 Glucose Level 133 mg/dL (70-99) Calcium Level 8.1 mg/dL (8.5-10.1) Test 08/17/20 19:10 08/18/20 00:41 08/18/20 05:45 08/18/20 06:31 Heparin Anti-Xa Act, Unfractionated 0.78 IU/mL (0.30-0.70) > 1.10 IU/mL (0.30-0.70) Glucose (Fingerstick) 90 mg/dL (70-99) 124 mg/dL (70-99) White Blood Count 15.4 x10^3/uL (4.0-11.0) Red Blood Count 3.16 x10^6/uL (4.30-5.70) Hemoglobin 9.7 g/dL (13.0-17.5) Hematocrit 29.8 % (39.0-53.0) Mean Corpuscular Volume 94 fL (79-100) Mean Corpuscular Hemoglobin 31 pg (25-35) Mean Corpuscular Hemoglobin Concent 33 g/dL (31-37) Red Cell Distribution Width 16.9 % (11.5-14.5) Platelet Count 294 x10^3/uL (140-400) Neutrophils (%) (Auto) 67 % (31-73) Lymphocytes (%) (Auto) 17 % (24-48) Monocytes (%) (Auto) 9 % (0-9) Eosinophils (%) (Auto) 7 % (0-3) Basophils (%) (Auto) 1 % (0-3) Neutrophils # (Auto) 10.3 x10^3/uL (1.8-7.7) Lymphocytes # (Auto) 2.6 x10^3/uL (1.0-4.8) Monocytes # (Auto) 1.4 x10^3/uL (0.0-1.1) Eosinophils # (Auto) 1.0 x10^3/uL (0.0-0.7) Basophils # (Auto) 0.1 x10^3/uL (0.0-0.2) Sodium Level 137 mmol/L (136-145) Potassium Level 3.5 mmol/L (3.5-5.1) Chloride Level 102 mmol/L (98-107) Carbon Dioxide Level 29 mmol/L (21-32) Anion Gap 6 (6-14) Blood Urea Nitrogen 7 mg/dL (8-26) Creatinine 0.8 mg/dL (0.7-1.3) Estimated GFR (Cockcroft-Gault) 102.3 Glucose Level 142 mg/dL (70-99) Calcium Level 8.6 mg/dL (8.5-10.1) Laboratory Tests Test 08/17/20 13:10 08/17/20 19:10 08/18/20 00:41 08/18/20 05:45 Heparin Anti-Xa Act, Unfractionated 0.48 IU/mL (0.30-0.70) 0.78 IU/mL (0.30-0.70) > 1.10 IU/mL (0.30-0.70) Glucose (Fingerstick) 90 mg/dL (70-99) White Blood Count 15.4 x10^3/uL (4.0-11.0) Red Blood Count 3.16 x10^6/uL (4.30-5.70) Hemoglobin 9.7 g/dL (13.0-17.5) Hematocrit 29.8 % (39.0-53.0) Mean Corpuscular Volume 94 fL (79-100) Mean Corpuscular Hemoglobin 31 pg (25-35) Mean Corpuscular Hemoglobin Concent 33 g/dL (31-37) Red Cell Distribution Width 16.9 % (11.5-14.5) Platelet Count 294 x10^3/uL (140-400) Neutrophils (%) (Auto) 67 % (31-73) Lymphocytes (%) (Auto) 17 % (24-48) Monocytes (%) (Auto) 9 % (0-9) Eosinophils (%) (Auto) 7 % (0-3) Basophils (%) (Auto) 1 % (0-3) Neutrophils # (Auto) 10.3 x10^3/uL (1.8-7.7) Lymphocytes # (Auto) 2.6 x10^3/uL (1.0-4.8) Monocytes # (Auto) 1.4 x10^3/uL (0.0-1.1) Eosinophils # (Auto) 1.0 x10^3/uL (0.0-0.7) Basophils # (Auto) 0.1 x10^3/uL (0.0-0.2) Sodium Level 137 mmol/L (136-145) Potassium Level 3.5 mmol/L (3.5-5.1) Chloride Level 102 mmol/L (98-107) Carbon Dioxide Level 29 mmol/L (21-32) Anion Gap 6 (6-14) Blood Urea Nitrogen 7 mg/dL (8-26) Creatinine 0.8 mg/dL (0.7-1.3) Estimated GFR (Cockcroft-Gault) 102.3 Glucose Level 142 mg/dL (70-99) Calcium Level 8.6 mg/dL (8.5-10.1) Test 08/18/20 06:31 Glucose (Fingerstick) 124 mg/dL (70-99) Comments CXR 08/14 IMPRESSION: worsening loculated left effusion, bilateral infiltrates CT CHEST 08/14 1. Marked interval enlargement of left lateral effusion. This could be causing some mass effect on the mediastinum. 2. Extensive pleural-parenchymal scarring and patchy airspace opacities in the lungs compatible with the sequelae of atypical pneumonia. Electronically signed by: Gosia Li MD (08/14/2020 1:28 PM) [id number] Impression . IMPRESSION: 1. Acute hypoxemic respiratory failure./ALI/ARDS due to COVID -19 2. Acute pulmonary embolism , still some residual PE 3. COVID-19 pnemonia.now with improving fevers, suspect VAP/ less likely empyema ( based on analysis) 5. Hypertension. 6. History of bronchitis. 7. Elevated troponin. 8. Acute kidney injury. 9. Leukocytosis. 10. Covid-[address] chest 08/14 , large left effusion, improved post chest tube left Plan . Continue TS 24 hrs s/p left chest tube, non purulent, await analysis, normal PH, monitor output Status post tracheostomy 08/06 and S/P Peg tube placement 08/09 heparin gtt/ monitor hemoglobin repeat CTA chest with residual PE. f/u, dopplers neg, re started Eliquis 08/18 f/u chest x-ray Follow cardiology recommendations Antibiotics per ID--AFB negative, repeat cultures negative, continues to have low grade fevers, currently on humberto, zyvox Has completed full course of remdesivir Continue tube feeding for nutritional support DVT/GI prophylaxis,Protonix-- heparin gtt Discussed with RN and RT Pt. is FULL CODE critically ill Critical care time 30 min NERY SALINAS MD Aug 18, 2020 10:23
--- NOTE | 2020-08-18 12:00 | NUR ---
Trach inner cannula cleaned with hydrogen peroxide and sterile saline. Patient tolerated well.
[2020-08-19] VITALS (7 sets, daily range): BP systolic 141–162; BP diastolic 74–93
[2020-08-19] MEDS: INSULIN LISPRO 300 UNITS/3 ML VIAL. SQ SCH ×3 (06:00→17:48)
[2020-08-19] MEDS: MEROPENEM 500 MG in IV NORMAL SALINE 50ML 50 ML IV SCH ×3 (06:04→17:45)
--- NOTE | 2020-08-19 07:32 | PDOC ---
[facility] [facility] PROGRESS NOTE Date of Service DOS: DATE: 08/19/20 TIME: 07:32 Chief Complaint Chief Complaint A/P: Acute hypoxic respiratory failure requiring VENT SUPPORT STATUS post trach placement 08/06/2020 S/P Peg tube placement 08/09 Acute hypoxic respiratory failure/ARDS /pneumonia Bilateral perihilar and basilar opacities, progressed in the left base. 07-26 COVID-19 Subsegmental bilateral PE Sepsis NSTEMI AKA Lactic acidosis Hyponatremia, RESOLVED hgb 6.5 07-27, transfused 1 unit prbc's - bled on eliquis, now on heparin GTT hypokalemia, on replacement Left pleural effusion Plan: Spontaneous breathing trial today attempt to wean to extubate Appreciate pulmonology recommendations Continue current ventilatory support, currently on 70% and PEEP of 6, avoid increasing PEEP 2/2 risk of barotrauma Follow chest x-ray and ABG, vent management as per pulmonology Heparin has been transitioned to Xarelto Solu-Medrol 40 mg every 12 hours Appreciate ID recommendationscontinue Remdesivir and empiric antibiotics IV fluids Discussed with RN and JAVIER. Antibiotics per ID-- off ABX, infectious disease following increasing leukocytosis has completed full course of remdesivir continue tube feeding for nutritional support History of Present Illness History of Present Illness Mr Soni is 49-year-old male with past medical history of hypertension, who presented to the ED 07/04/2020 with complaints of worsening shortness of breath over the past 5 days prior to admit. Associated sore throat, fatigue, and generalized weakness. Patient was reportedly tested for COVID-19 prior to admit, but he had negative test results. His symptoms acutely worsened yesterday. Upon arrival to the ER his oxygen saturation was 60% on room air. He was placed on BiPAP and admitted to the ICU. Patient was subsequently intubated due to worsening respiratory failure. s/p remdesivir 07/08/2020. Tracheostomy 08/06/2020, PEG 08/09/202008/12: No acute events overnight. Patient has T-max of 99.7. Currently on minimal vent settings.> 50% time spent in patient chart, labs, and imaging review and in discussion with RN and SW 08/13: Overnight Tmax 100.6F. Tires out easily on vent. 08/14: 101.5 F overnight. Stool sample on urine sample taken today. No growth on cultures as of yet. Still requiring vent support via his trach. No residuals on tube feeds. CT chest with left loculated effusion 08/15: 100.4 F overnight. Left Thoracostomy tube inserted today. Still requiring vent support via trach. 08/16: T-max 100.8 F overnight. Still requiring vent support via trach. Chest tube w/o air leak. 08/17: T [id number] overnight. Still requiring vent support via trach. Chest tube still with output, no air leak. 08/18: T-max 100.4 F overnight. On trach collar 30 L O2 currently. Minimal chest tube output, improved. CTPA still with left pulmonary embolism. Afebrile overnight. On trach collar 30 L O2 currently. Minimal chest tube output chest radiograph appears improved pigtail catheter in good position. Plan: Cont eliquis Chest tube per pulm Ok to transfer to CVC on trach shield 08/11/2020 No acute events overnight. Patient with T-max of 100.8 overnight. Currently on minimal vent settings. Trached and pegged. Social work following for Medicare approval.> 50% time spent in patient chart, labs, and imaging review and in discussion with RN and SW 08/10/2020 no acute events overnight. Patient is on minimal vent settings. PEG tube placed yesterday. Will attempt to wean to extubate today.> 50% time spent in patient chart, labs, and imaging review and in discussion with RN and SW 08/09/2020 No acute events overnight. T-max of 100.0 F. Patient is on minimal ve ntilatory settings.> 50% time spent in patient chart, labs, and imaging review and in discussion with RN and SW 08/08/2020 Patient tolerating trach and ventilatory goldy support on 40% FiO2 and 5 of PEEP. Pending PEG tube placement tomorrow.> 50% time spent in patient chart, labs, and imaging review and in discussion with RN and SW 08/07/2020 No acute events overnight. Fever T-max of 101.1. Trach was placed yesterday. On minimal vent settings.> 50% time spent in patient chart, labs, and imaging review and in discussion with RN and JAVIER 08/06/2020 No acute events overnight. Patient is afebrile. Currently on minimal vent settings. Pending trach today. Patient's chart, labs, images were reviewed and discussed with RN A total of 35 minutes of critical care time was spent in reviewing chart, labs, and images. Discussed with RN and SW. 08/05/2020 Patient seen and evaluated. No acute events, febrile overnight. Mechanically ventilated with FiO2 40%, PEEP 6. Plan for trach Thursday. 08/04/2020 Patient seen in [facility] ICU. Still with low-grade fevers. Mechanically ventilated, FiO2 40%, PEEP 6. No acute change, plan for trach Thursday. 08/03/2020 Patient seen in [facility]- ICU. Still with low-grade fever. He remains on vent with FiO2 100%, PEEP 12. Plan for trach on Thursday, and PEG at some point after. 08/02/2020 Patient seen and evaluated in [facility] ICU. He is febrile this morning. Still intubated mechanically ventilated with FiO2 40 %, PEEP 6. Plans for tracheostomy today. 08/01/2020 Patient seen in [facility] ICU. Patient remains slightly febrile. Mechanically ventilated, FiO2 45%, PEEP 6. Tracheostomy unable to perform yesterday, general surgery to attempt again today. Discussed with RN. 07/31/2020 Patient still spiking fevers. Patient remains on vent, FiO2 45%, PEEP 6. Tracheostomy tentatively planned for today. 07/30/2020 Patient seen in [facility]- ICU. He is febrile on vent, FiO2 45%, PEEP 6. Will attempt to speak with family about decision on trach and PEG tube. Discussed with RN. t max 102 f fio2 50% 07/21/2020 Patient no acute events reported overnight. Patient continues to require a lot of support from vent. Discussed with RN 09/19/2019 Patient continues to be pretty much the same , fio2 is at 70%, heparin 07/19/2020 Patient hypotensive today, we will follow recommendations from critical pet care worker. Vent management as per sr solutions consultant, no other complaints. 07/18/2020 Patient with no acute events reported overnight, fio2 is now at 75% PEEP of 6, Vent management as per pulmonary sr solutions consultant slight increase in temperature noted over the lat 24 hours. Will continue to follow 07/17/2020 Patient with no acute events reported overnight, contineus to require an fio2 of 80%, continue with supportive measures. 07/16/2020 Patient with no acute events reported overnight, patient continues to require quite a bit of FiO2 at 80%. Vent management as per sr solutions consultant, will place a call to family members after rounding. Discussed with RN 07/15/2020 Patient seen and examined bedside in the ICU. FiO2 80% PEEP of 6.pH 7.56, PCO2 32, PO2 56, HCO3 28. Will adjust respiratory rate accordingly to correct pH.> 50% time spent in patient chart, labs, and imaging review and in discussion with RN and JAVIER 07/14/2020 Patient seen and examined bedside. FiO2 65% and PEEP of 6 on vent. ABG: pH 7.26, PCO2 77, PO2 114, HCO3 34. We will adjust respiratory rate or tidal volume to titrate pH.> 50% time spent in patient chart, labs, and imaging review and in discussion with RN and JAVIER 07/13/2020 No acute events overnight. Patient examined bedside sedated and intubated. FiO2 70% PEEP of 6. Improved ABGs.> 50% time spent in patient chart, labs, and imaging review and in discussion with RN and JAVIER 07/12/2020 Patient seen and examined in the ICU. Sedated and intubated. FiO2 65, PEEP of 8 with improved oxygenation. pH 7.4, PCO2 48, PO2 94, HCO3 30. +500 cc fluid balance.> 50% time spent in patient chart, labs, and imaging review and in discussion with RN and JAVIER 07/11/2020 Patient seen and examined bedside in the ICU. Patient continues to be intubated and sedated. FiO2 75%, PEEP of 10. pH 7.40, PCO2 44, PO2 is 135, HCO3 26. Can likely decrease FiO2 due to improved oxygenation. +173 cc in the past 24 hours 07/10/2020 Patient seen and examined bedside in ICU. Patient is intubated and sedated. FiO2 90%, PEEP of 10, respiratory rate of 30. ABG: pH is 7.41, PCO2 42, PO2 113, HCO3 26. 07/05: Patient seen in ICU, still intubated and sedated. COVID-19 pending. Patient remains on heparin infusion. Discussed with RN, will try to have central line placed per anesthesia. 07/06: Patient seen in ICU. Still FiO2 100% on vent and sedated. COVID-19 positive. Continue heparin infusion, Zosyn, steroids. 07/07: Covid positive patient seen in ICU. On vent with FiO2 100%, PEEP 10. Continue remdesivir, steroids, Zosyn. Continue to monitor 07/08: Patient seen in [facility]id ICU. Still on vent with FiO2 100%, PEEP 10. Afebrile. No acute events overnight. Continue steroids, antibiotics, and remdesivir. 07/09: Patient seen and examined in the ICU. Intubated and sedated. Vent settings FiO2 90%, PEEP of 10, respiratory rate of 30. Vitals/I&O Vitals/I&O: Vital Signs Date Time Temp Pulse Resp B/P (MAP) Pulse Ox O2 Delivery O2 Flow Rate FiO2 08/19/20 04:04 99 Tracheal Collar 8.0 08/19/20 04:00 83 35 145/85 (105) 08/19/20 00:00 99.4 99.4 I & O 08/18/20 08/18/20 08/19/20 15:00 23:00 07:00 Intake Total 0 ml 670 ml 662 ml Output Total 660 ml 350 ml 2190 ml Balance -660 ml 320 ml -1528 ml Physical Exam Physical Exam: General on vent,alert HEENT normocephalic atraumatic , Neck trach present LUNGS: Clear anteriorly, left CTS HEART: S1-S2 no murmurs ABDOMEN: mildly distended, soft bowel sounds present Fernandez in place,fecal tube in place SKIN: No generalized rash Right upper extremity PICC line removed PIVs Clean Neuro alert awake General: Other (sedated ) Lungs: Clear Labs Labs: Laboratory Tests Test 08/18/20 11:47 08/18/20 17:39 08/18/20 23:35 08/19/20 06:08 Glucose (Fingerstick) 134 mg/dL (70-99) 123 mg/dL (70-99) 121 mg/dL (70-99) 125 mg/dL (70-99) Assessment and Plan Assessmemt and Plan Problems Medical Problems: (1) Acute respiratory failure with hypoxia Status: Acute (2) PRIYA (acute kidney injury) Status: Acute (3) Elevated troponin I level Status: Acute (4) Pulmonary emboli Status: Acute (5) Suspected COVID-19 virus infection Status: Acute Comment Review of Relevant I have reviewed the following items trino (where applicable) has been applied. Medications: Current Medications Medications (Trade) Dose Ordered Sig/Natalee Route PRN Reason Start Time Stop Time Status Last Admin Dose Admin Apixaban (Eliquis) 5 mg BID PO 08/18/20 10:00 08/18/20 21:58 Justifications for Admission Other Justification ENIL PATEL MD Aug 19, 2020 07:32
--- NOTE | 2020-08-19 07:57 | RAD ---
Exam performed: One view chest HISTORY: Chest tube. DATE OF SERVICE: 08/19/2020. COMPARISON: One view chest from August 18, 2020. Findings and impression: Account for the difference in technique and positioning between the 2 studies, there does not appear to be a significant interval change in the degree of perihilar airspace opacities and coarse intersti tial markings. There is minimal if at all any improved aeration the left lung base with decreased ple ural effusion. Left lung base pigtail catheter is seen. There is no pneumothorax. Tracheostomy tube. There is stable cardiomegaly. Electronically signed by: Meron Mueller MD (08/19/2020 7:54 AM) [id number]
[2020-08-19] MEDS: LINEZOLID 600 MG TABLET PO SCH (08:22)
[2020-08-19] MEDS: ZINC SULFATE 220 MG CAPSULE. PO SCH (08:22)
[2020-08-19] MEDS: PANTOPRAZOLE IV PUSH 40 MG VIAL. IVP SCH (08:22)
[2020-08-19] MEDS: CHOLECALCIFEROL (VITAMIN D3) 5,000 UNIT CAPSULE PO SCH (08:22)
[2020-08-19] MEDS: APIXABAN 5 MG TABLET. PO SCH ×2 (08:22→21:30)
--- NOTE | 2020-08-19 10:56 | PDOC ---
PULMONARY PROGRESS NOTES DATE: 08/19/20 TIME: 10:51 Subjective PT. tolerating TS well Status post tracheostomy on 08/06/2020 and S/P peg tube on 08/09 resolved fevers s/p left chest tube, 2 litres came out initially. not much drainage in last 24 hrs No other concerns from nursing overnight Vitals Vital Signs Date Time Temp Pulse Resp B/P (MAP) Pulse Ox O2 Delivery O2 Flow Rate FiO2 08/19/20 09:00 85 22 141/78 (99) 100 Tracheal Collar 3.0 08/19/20 00:00 99.4 99.4 Comments General: Alert, No acute distress Lungs: Clear Cardiovascular: S1, S2 Abdomen: Soft Neuro Exam: Alert Extremities: No Edema Skin: Warm, Dry Labs Laboratory Tests Test 08/17/20 13:10 08/17/20 19:10 08/18/20 00:41 08/18/20 05:45 Heparin Anti-Xa Act, Unfractionated 0.48 IU/mL (0.30-0.70) 0.78 IU/mL (0.30-0.70) > 1.10 IU/mL (0.30-0.70) Glucose (Fingerstick) 90 mg/dL (70-99) White Blood Count 15.4 x10^3/uL (4.0-11.0) Red Blood Count 3.16 x10^6/uL (4.30-5.70) Hemoglobin 9.7 g/dL (13.0-17.5) Hematocrit 29.8 % (39.0-53.0) Mean Corpuscular Volume 94 fL (79-100) Mean Corpuscular Hemoglobin 31 pg (25-35) Mean Corpuscular Hemoglobin Concent 33 g/dL (31-37) Red Cell Distribution Width 16.9 % (11.5-14.5) Platelet Count 294 x10^3/uL (140-400) Neutrophils (%) (Auto) 67 % (31-73) Lymphocytes (%) (Auto) 17 % (24-48) Monocytes (%) (Auto) 9 % (0-9) Eosinophils (%) (Auto) 7 % (0-3) Basophils (%) (Auto) 1 % (0-3) Neutrophils # (Auto) 10.3 x10^3/uL (1.8-7.7) Lymphocytes # (Auto) 2.6 x10^3/uL (1.0-4.8) Monocytes # (Auto) 1.4 x10^3/uL (0.0-1.1) Eosinophils # (Auto) 1.0 x10^3/uL (0.0-0.7) Basophils # (Auto) 0.1 x10^3/uL (0.0-0.2) Sodium Level 137 mmol/L (136-145) Potassium Level 3.5 mmol/L (3.5-5.1) Chloride Level 102 mmol/L (98-107) Carbon Dioxide Level 29 mmol/L (21-32) Anion Gap 6 (6-14) Blood Urea Nitrogen 7 mg/dL (8-26) Creatinine 0.8 mg/dL (0.7-1.3) Estimated GFR (Cockcroft-Gault) 102.3 Glucose Level 142 mg/dL (70-99) Calcium Level 8.6 mg/dL (8.5-10.1) Test 08/18/20 06:31 08/18/20 11:47 08/18/20 17:39 08/18/20 23:35 Glucose (Fingerstick) 124 mg/dL (70-99) 134 mg/dL (70-99) 123 mg/dL (70-99) 121 mg/dL (70-99) Test 08/19/20 06:08 Glucose (Fingerstick) 125 mg/dL (70-99) Laboratory Tests Test 08/18/20 11:47 08/18/20 17:39 08/18/20 23:35 08/19/20 06:08 Glucose (Fingerstick) 134 mg/dL (70-99) 123 mg/dL (70-99) 121 mg/dL (70-99) 125 mg/dL (70-99) Comments CXR 08/19 IMPRESSION: small left effusion, bilateral infiltrates CT CHEST 08/14 1. Marked interval enlargement of left lateral effusion. This could be causing some mass effect on the mediastinum. 2. Extensive pleural-parenchymal scarring and patchy airspace opacities in the lungs compatible with the sequelae of atypical pneumonia. Electronically signed by: Gosia Li MD (08/14/2020 1:28 PM) [id number] Impression . IMPRESSION: 1. Acute hypoxemic respiratory failure./ALI/ARDS due to COVID -19, much improved. 2. Acute pulmonary embolism , still some residual PE 3. COVID-19 pnemonia.now with resolved fevers, suspect VAP/ less likely empyema ( based on analysis) 5. Hypertension. 6. History of bronchitis. 7. Elevated troponin. 8. Acute kidney injury. 9. Leukocytosis. 10. Covid-[address] chest 08/14 , large left effusion, improved post chest tube left Plan . Continue TS 24 hrs will downsize in few days and try capping. s/p left chest tube, non purulent, await analysis, normal PH, output minimal, will clamp today and likely remove in am Status post tracheostomy 08/06 and S/P Peg tube placement 08/09 repeat CTA chest with residual PE. f/u, dopplers neg, re started Eliquis 08/18 f/u chest x-ray as needed Follow cardiology recommendations Antibiotics per ID--AFB negative, repeat cultures negative, , currently on humberto, zyvox Has completed full course of remdesivir Continue tube feeding for nutritional support DVT/GI prophylaxis,Protonix-- heparin gtt Discussed with RN and RT Pt. is FULL CODE NERY SALINAS MD Aug 19, 2020 10:56
--- NOTE | 2020-08-19 11:57 | PDOC ---
Infectious Disease Note Subjective: Subjective Patient with trach on vent Temperature pattern improving Vital Signs: Vital Signs Vital Signs Date Time Temp Pulse Resp B/P (MAP) Pulse Ox O2 Delivery O2 Flow Rate FiO2 08/19/20 09:00 85 22 141/78 (99) 100 Tracheal Collar 3.0 08/19/20 00:00 99.4 99.4 Physical Exam: PHYSICAL EXAM General on vent,alert HEENT normocephalic atraumatic , Neck trach present LUNGS: Clear anteriorly, left CTS HEART: S1-S2 no murmurs ABDOMEN: mildly distended, soft bowel sounds present Fernandez in place,fecal tube in place SKIN: No generalized rash Right upper extremity PICC line removed PIVs Clean Neuro alert awake Medications: Inpatient Meds: Current Medications Medications (Trade) Dose Ordered Sig/Natalee Start Time Stop Time Status Last Admin Dose Admin Acetaminophen (Tylenol Supp) 650 mg PRN Q6HRS PRN 08/06/20 20:45 08/07/20 19:28 650 MG Acetaminophen (Tylenol) 650 mg PRN Q6HRS PRN 07/12/20 12:00 08/18/20 21:58 650 MG Apixaban (Eliquis) 5 mg BID 08/18/20 10:00 08/19/20 08:22 5 MG Ascorbic Acid (Vitamin C) 500 mg Q6HRS 07/04/20 18:00 08/05/20 08:39 DC 08/05/20 06:07 500 MG Azithromycin (Zithromax) 500 mg 1X ONCE 07/03/20 19:15 07/03/20 19:19 DC 07/03/20 20:11 500 MG Bupivacaine HCl/ Epinephrine Bitart (Sensorcain-Epi 0.5%-1:409327 Mpf) 30 ml 1X ONCE 08/06/20 06:30 08/06/20 06:31 DC 08/06/20 15:15 1 ML Cefazolin Sodium/ Dextrose 50 ml @ 100 mls/hr 1X ONCE 08/09/20 11:00 08/09/20 11:29 DC 08/09/20 11:04 100 MLS/HR Ceftriaxone Sodium (Rocephin) 1 gm 1X ONCE 07/03/20 19:15 07/03/20 19:19 DC 07/03/20 20:11 1 GM Cellulose (Surgicel Fibrillar 1x2) 1 each STK-MED ONCE 07/31/20 13:08 07/31/20 13:08 DC Cellulose (Surgicel Hemostat 4x8) 1 each STK-MED ONCE 08/06/20 14:10 08/06/20 14:11 DC Daptomycin 470 mg/ Sodium Chloride 50 ml @ 100 mls/hr Q24H 08/01/20 09:00 08/05/20 11:20 DC 08/05/20 09:24 100 MLS/HR Dexmedetomidine HCl 400 mcg/ Sodium Chloride 100 ml @ 0 mls/hr CONT PRN 08/11/20 10:00 08/17/20 11:29 4.1 MLS/HR Dextrose (Dextrose 50%-Water Syringe) 12.5 gm PRN Q15MIN PRN 08/14/20 08:00 UNV Enoxaparin Sodium (Lovenox 150mg Syringe) 150 mg 1X ONCE 07/03/20 23:00 07/03/20 23:01 DC 07/03/20 22:45 150 MG Etomidate (Amidate) 10 mg 1X ONCE 07/04/20 09:30 07/04/20 09:31 DC 07/04/20 09:37 10 MG Fentanyl Citrate (Fentanyl 2ml Vial) 50 mcg 1X ONCE 08/15/20 14:15 08/15/20 14:18 DC 08/15/20 14:29 50 MCG Furosemide (Lasix) 20 mg 1X ONCE 07/29/20 06:30 07/29/20 06:31 DC 07/29/20 06:35 20 MG Heparin Sodium (Porcine) (Heparin Sodium) 1,250 unit PRN Q6HRS PRN 08/11/20 14:30 08/18/20 10:00 DC 08/14/20 22:56 1,250 UNIT Heparin Sodium/ Dextrose 250 ml @ 0 mls/hr CONT PRN 08/11/20 14:30 08/18/20 10:00 DC 08/18/20 00:46 26.2 MLS/HR Hydromorphone HCl (Dilaudid) 0.5 mg PRN Q10MIN PRN 08/06/20 07:00 08/07/20 06:59 DC Info (Anti-Coagulation Monitoring By Pharmacy) 1 each PRN DAILY PRN 07/16/20 08:15 08/14/20 09:40 1 EACH Info (CONTRAST GIVEN -- Rx MONITORING) 1 each PRN DAILY PRN 08/17/20 05:45 08/19/20 05:44 DC Info (Icu Electrolyte Protocol) 1 ea CONT PRN PRN 07/24/20 15:45 Insulin Human Lispro (HumaLOG) 0-7 UNITS Q6HRS 08/14/20 12:00 08/19/20 11:38 3 UNITS Iohexol (Omnipaque 350 Mg/ml) 100 ml 1X ONCE 08/17/20 05:45 08/17/20 05:46 DC 08/17/20 05:45 100 ML Levofloxacin/ Dextrose 150 ml @ 100 mls/hr Q24H 08/02/20 09:00 08/05/20 11:20 DC 08/05/20 07:16 100 MLS/HR Lidocaine HCl (Buffered Lidocaine 1%) 6 ml 1X ONCE 08/15/20 13:00 08/15/20 13:01 DC 08/15/20 13:07 5 ML Lidocaine HCl (Xylocaine-Mpf 1% 2ml Vial) 2 ml PRN 1X PRN 08/06/20 07:00 08/07/20 06:59 DC Linezolid (Zyvox) 600 mg BID 08/14/20 09:00 08/19/20 08:22 600 MG Linezolid/Dextrose 300 ml @ 300 mls/hr Q12HR 07/27/20 12:30 07/31/20 07:36 DC 07/30/20 21:47 300 MLS/HR Lorazepam (Ativan Inj) 2 mg PRN Q1HR PRN 07/21/20 12:30 08/18/20 00:45 2 MG Magnesium Sulfate 100 ml @ 50 mls/hr DAILY 08/13/20 00:00 08/16/20 00:00 DC 08/15/20 08:43 50 MLS/HR Meclizine HCl (Antivert) 25 mg PRN DAILY PRN 08/12/20 23:00 Meropenem 500 mg/ Sodium Chloride 50 ml @ 100 mls/hr Q6HRS 08/14/20 09:00 08/19/20 11:44 100 MLS/HR Methylprednisolone Sodium Succinate (SOLU-Medrol 40MG VIAL) 40 mg DAILY 07/21/20 09:00 07/22/20 09:36 DC 07/22/20 09:08 40 MG Midazolam HCl (Versed) 5 mg STK-MED ONCE 07/04/20 09:21 07/04/20 09:21 DC Morphine Sulfate (Morphine Sulfate) 1 mg PRN Q10MIN PRN 08/06/20 07:00 08/07/20 06:59 DC Multi-Ingred Cream/Lotion/Oil/ Oint (Artificial Tears Eye Ointment) 1 wenceslao PRN Q1HR PRN 07/18/20 10:45 07/27/20 17:19 1 WENCESLAO Norepinephrine Bitartrate 8 mg/ Dextrose 258 ml @ 16.061 mls/ hr CONT PRN 07/04/20 13:15 07/18/20 11:01 DC 07/05/20 00:33 28.909 MLS/HR Ondansetron HCl (Zofran) 4 mg PRN Q6HRS PRN 08/06/20 07:00 08/07/20 06:59 DC Pantoprazole Sodium (PROTONIX VIAL for IV PUSH) 40 mg DAILYAC 07/04/20 12:30 08/19/20 08:22 40 MG Piperacillin Sod/ Tazobactam Sod (Zosyn Per Pharmacy) 1 each PRN DAILY PRN 07/04/20 12:00 07/18/20 07:46 DC Piperacillin Sod/ Tazobactam Sod 3.375 gm/Sodium Chloride 50 ml @ 100 mls/hr Q6HRS 07/04/20 12:00 07/17/20 11:11 DC 07/17/20 05:10 100 MLS/HR Piperacillin Sod/ Tazobactam Sod 4.5 gm/Sodium Chloride 100 ml @ 200 mls/hr Q6HRS 07/24/20 12:00 07/26/20 10:53 DC 07/26/20 05:36 200 MLS/HR Potassium Bicarbonate (Potassium Effervescent Tablet) 40 meq 1X ONCE 08/15/20 09:45 08/15/20 09:46 DC 08/15/20 10:25 40 MEQ Potassium Chloride/Water 100 ml @ 100 mls/hr Q1H 08/13/20 13:00 08/13/20 16:59 DC 08/13/20 18:10 100 MLS/HR Potassium Phosphate 13.6 mmol/Sodium Chloride 254.5333 ml @ 62.5 mls/hr Q4H 07/24/20 15:30 07/25/20 03:29 UNV Prochlorperazine Edisylate (Compazine) 10 mg PRN Q6HRS PRN 08/12/20 21:30 08/18/20 00:45 10 MG Propofol 100 ml @ 0 mls/hr CONT PRN 07/04/20 09:15 08/11/20 06:42 14.9 MLS/HR Remdesivir 100 mg/ Sodium Chloride 230 ml @ 460 mls/hr Q24H 07/07/20 14:30 07/10/20 14:59 DC 07/10/20 13:59 460 MLS/HR Remdesivir 200 mg/ Sodium Chloride 210 ml @ 210 mls/hr 1X ONCE 07/06/20 14:30 07/06/20 15:29 DC 07/06/20 14:51 210 MLS/HR Ringer's Solution 1,000 ml @ 30 mls/hr Q24H 08/09/20 06:00 08/09/20 17:59 DC 08/09/20 06:11 30 MLS/HR Rocuronium [place] (Zemuron) 50 mg STK-MED ONCE 08/06/20 15:19 08/06/20 15:19 DC Sevoflurane (Ultane) 30 ml STK-MED ONCE 08/06/20 15:18 08/06/20 15:19 DC Sodium Chloride 1,000 ml @ 100 mls/hr Q10H 08/07/20 12:00 08/12/20 10:50 DC 08/11/20 16:30 100 MLS/HR Sodium Phosphate 20 mmol/Sodium Chloride 256.6667 ml @ 62.5 mls/hr 1X ONCE 07/24/20 15:30 07/24/20 19:36 UNV Sodium Phosphate 30 mmol/Sodium Chloride 260 ml @ 62.5 mls/hr 1X ONCE 07/24/20 15:30 07/24/20 19:39 UNV Succinylcholine Chloride (Anectine) 200 mg 1X ONCE 07/04/20 09:30 07/04/20 09:31 DC 07/04/20 09:38 200 MG Throat Lozenges (Cepacol Sore Throat Lozenge) 1 lety PRN Q2HRS PRN 07/04/20 01:15 Vancomycin HCl (Vanco Per Pharmacy) 1 each PRN DAILY PRN 08/11/20 13:30 08/14/20 08:03 DC 08/13/20 15:09 1 EACH Vancomycin HCl (Vancomycin Trough Level) 1 each 1X ONCE 08/13/20 14:30 08/13/20 14:31 DC Vancomycin HCl 1.25 gm/Sodium Chloride 250 ml @ 167 mls/hr Q8H 07/25/20 15:00 07/26/20 07:31 DC 07/25/20 22:44 167 MLS/HR Vancomycin HCl 1.5 gm/Sodium Chloride 500 ml @ 250 mls/hr Q8H 08/11/20 23:00 08/12/20 15:13 DC 08/12/20 14:49 250 MLS/HR Vancomycin HCl 1.75 gm/Sodium Chloride 500 ml @ 250 mls/hr Q8H 08/12/20 23:00 08/14/20 08:01 DC 08/14/20 07:04 250 MLS/HR Vancomycin HCl 2 gm/Sodium Chloride 500 ml @ 250 mls/hr 1X ONCE 07/25/20 07:00 07/25/20 08:59 DC 07/25/20 07:06 250 MLS/HR Vecuronium [place] 50 mg/ Miscellaneous 50 ml @ 4.094 mls/ hr CONT PRN 07/12/20 14:45 07/22/20 09:34 DC 07/18/20 01:56 7.5 MLS/HR Vecuronium [place] (Norcuron Bolus) 6 mg PRN Q6HRS PRN 07/28/20 23:00 08/09/20 15:05 6 MG Vitamin D (Vitamin D3) 5,000 unit DAILY 07/05/20 09:00 08/19/20 08:22 5,000 UNIT Zinc Sulfate (Orazinc) 220 mg DAILY 07/05/20 09:00 08/19/20 08:22 220 MG Labs: Lab Laboratory Tests Test 08/18/20 17:39 08/18/20 23:35 08/19/20 06:08 08/19/20 11:36 Glucose (Fingerstick) 123 mg/dL (70-99) 121 mg/dL (70-99) 125 mg/dL (70-99) 142 mg/dL (70-99) Objective: Assessment: Left pleural effusion status post CTS August 15 Left thoracocentesis with CTS pH 7.73, cell count, glucose, protein .ldh noted, cult neg Fevers Source ?? Leukocytosis improved COVID-19 positive. Status post remdesivir, steroids Acute hypoxic respiratory failure/ARDS /pneumonia H/O Bilateral pulmonary emboli. Hypertension. Bacteremia 07/23 08/25 bottles staph hominis likely contaminant Repeat blood cultures staph capitis likely contaminant Repeat BC 08/06 staph pettenkori likely contaminant Enterobacter UTI and pneumonia Treated Plan: Plan of Care Cont Merrem 08/14 DC Zyvox C. difficile negative f/u cults negative so far Pleural fluid negative so far, tracheal aspirate for afb stain and cultures negative so far Check HIV and acute hepatitis panel D/W JAMI LUCAS MD Aug 19, 2020 11:57
[2020-08-19 12:41] LABS: ALBUMIN 2.2 g/dL (3.4-5.0); DIRECT BILIRUBIN 0.1 mg/dL (0.0-0.2); TOTAL BILIRUBIN 0.2 mg/dL (0.2-1.0); TOTAL PROTEIN 6.8 g/dL (6.4-8.2)
[2020-08-19] MEDS: PROCHLORPERAZINE 10 MG/2 ML VIAL. IV PRN (13:34)
[2020-08-20] VITALS (7 sets, daily range): BP systolic 110–140; BP diastolic 62–89
[2020-08-20] MEDS: MEROPENEM 500 MG in IV NORMAL SALINE 50ML 50 ML IV SCH ×4 (00:32→17:35)
[2020-08-20] MEDS: INSULIN LISPRO 300 UNITS/3 ML VIAL. SQ SCH ×4 (06:00→17:34)
--- NOTE | 2020-08-20 06:00 | NUR ---
Trach care done at 0500 and patient was transferred to 271 per bed at 0600.
--- NOTE | 2020-08-20 06:06 | RAD ---
XR CHEST 1V 08/20/2020 5:10 AM INDICATION: Chest tube, effusion COMPARISON: 08/19/2020 TECHNIQUE: Portable frontal view of the chest is provided. FINDINGS: The cardiomediastinal silhouette is similar in appearance. Tracheostomy tube is in similar position. Patchy alveolar airspace disease identified in the left lower lobe and lingula. Small left pleural ef fusion with adjacent compressive atelectasis versus infiltrate. Pigtail catheter is identified the le ft lung base. No pneumothorax. No suspicious osseous abnormality. IMPRESSION: Aeration of the lungs appears similar to the prior examination. Support lines and tubes are in simila r position. Electronically signed by: Erin Sheets MD (08/20/2020 6:04 AM) [facility]
--- NOTE | 2020-08-20 08:31 | PDOC ---
Infectious Disease Note Subjective: Subjective Patient with trach on vent Afebrile Vital Signs: Vital Signs Vital Signs Date Time Temp Pulse Resp B/P (MAP) Pulse Ox O2 Delivery O2 Flow Rate FiO2 08/20/20 08:00 Trach Collar 08/20/20 04:00 98.9 78 30 140/89 (106) 100 98.9 08/19/20 20:26 8.0 Physical Exam: PHYSICAL EXAM General on vent,alert HEENT normocephalic atraumatic , Neck trach present LUNGS: Clear anteriorly, left CTS HEART: S1-S2 no murmurs ABDOMEN: mildly distended, soft bowel sounds present Fernandez in place,fecal tube in place SKIN: No generalized rash Right upper extremity PICC line removed PIVs Clean Neuro alert awake Medications: Inpatient Meds: Current Medications Medications (Trade) Dose Ordered Sig/Natalee Start Time Stop Time Status Last Admin Dose Admin Acetaminophen (Tylenol Supp) 650 mg PRN Q6HRS PRN 08/06/20 20:45 08/07/20 19:28 650 MG Acetaminophen (Tylenol) 650 mg PRN Q6HRS PRN 07/12/20 12:00 08/18/20 21:58 650 MG Apixaban (Eliquis) 5 mg BID 08/18/20 10:00 08/19/20 21:30 5 MG Ascorbic Acid (Vitamin C) 500 mg Q6HRS 07/04/20 18:00 08/05/20 08:39 DC 08/05/20 06:07 500 MG Azithromycin (Zithromax) 500 mg 1X ONCE 07/03/20 19:15 07/03/20 19:19 DC 07/03/20 20:11 500 MG Bupivacaine HCl/ Epinephrine Bitart (Sensorcain-Epi 0.5%-1:901152 Mpf) 30 ml 1X ONCE 08/06/20 06:30 08/06/20 06:31 DC 08/06/20 15:15 1 ML Cefazolin Sodium/ Dextrose 50 ml @ 100 mls/hr 1X ONCE 08/09/20 11:00 08/09/20 11:29 DC 08/09/20 11:04 100 MLS/HR Ceftriaxone Sodium (Rocephin) 1 gm 1X ONCE 07/03/20 19:15 07/03/20 19:19 DC 07/03/20 20:11 1 GM Cellulose (Surgicel Fibrillar 1x2) 1 each STK-MED ONCE 07/31/20 13:08 07/31/20 13:08 DC Cellulose (Surgicel Hemostat 4x8) 1 each STK-MED ONCE 08/06/20 14:10 08/06/20 14:11 DC Daptomycin 470 mg/ Sodium Chloride 50 ml @ 100 mls/hr Q24H 08/01/20 09:00 08/05/20 11:20 DC 08/05/20 09:24 100 MLS/HR Dexmedetomidine HCl 400 mcg/ Sodium Chloride 100 ml @ 0 mls/hr CONT PRN 08/11/20 10:00 08/17/20 11:29 4.1 MLS/HR Dextrose (Dextrose 50%-Water Syringe) 12.5 gm PRN Q15MIN PRN 08/14/20 08:00 UNV Enoxaparin Sodium (Lovenox 150mg Syringe) 150 mg 1X ONCE 07/03/20 23:00 07/03/20 23:01 DC 07/03/20 22:45 150 MG Etomidate (Amidate) 10 mg 1X ONCE 07/04/20 09:30 07/04/20 09:31 DC 07/04/20 09:37 10 MG Fentanyl Citrate (Fentanyl 2ml Vial) 50 mcg 1X ONCE 08/15/20 14:15 08/15/20 14:18 DC 08/15/20 14:29 50 MCG Furosemide (Lasix) 20 mg 1X ONCE 07/29/20 06:30 07/29/20 06:31 DC 07/29/20 06:35 20 MG Heparin Sodium (Porcine) (Heparin Sodium) 1,250 unit PRN Q6HRS PRN 08/11/20 14:30 08/18/20 10:00 DC 08/14/20 22:56 1,250 UNIT Heparin Sodium/ Dextrose 250 ml @ 0 mls/hr CONT PRN 08/11/20 14:30 08/18/20 10:00 DC 08/18/20 00:46 26.2 MLS/HR Hydromorphone HCl (Dilaudid) 0.5 mg PRN Q10MIN PRN 08/06/20 07:00 08/07/20 06:59 DC Info (Anti-Coagulation Monitoring By Pharmacy) 1 each PRN DAILY PRN 07/16/20 08:15 08/14/20 09:40 1 EACH Info (CONTRAST GIVEN -- Rx MONITORING) 1 each PRN DAILY PRN 08/17/20 05:45 08/19/20 05:44 DC Info (Icu Electrolyte Protocol) 1 ea CONT PRN PRN 07/24/20 15:45 Insulin Human Lispro (HumaLOG) 0-7 UNITS Q6HRS 08/14/20 12:00 08/19/20 11:38 3 UNITS Iohexol (Omnipaque 350 Mg/ml) 100 ml 1X ONCE 08/17/20 05:45 08/17/20 05:46 DC 08/17/20 05:45 100 ML Levofloxacin/ Dextrose 150 ml @ 100 mls/hr Q24H 08/02/20 09:00 08/05/20 11:20 DC 08/05/20 07:16 100 MLS/HR Lidocaine HCl (Buffered Lidocaine 1%) 6 ml 1X ONCE 08/15/20 13:00 08/15/20 13:01 DC 08/15/20 13:07 5 ML Lidocaine HCl (Xylocaine-Mpf 1% 2ml Vial) 2 ml PRN 1X PRN 08/06/20 07:00 08/07/20 06:59 DC Linezolid (Zyvox) 600 mg BID 08/14/20 09:00 08/19/20 12:00 DC 08/19/20 08:22 600 MG Linezolid/Dextrose 300 ml @ 300 mls/hr Q12HR 07/27/20 12:30 07/31/20 07:36 DC 07/30/20 21:47 300 MLS/HR Lorazepam (Ativan Inj) 2 mg PRN Q1HR PRN 07/21/20 12:30 08/18/20 00:45 2 MG Magnesium Sulfate 100 ml @ 50 mls/hr DAILY 08/13/20 00:00 08/16/20 00:00 DC 08/15/20 08:43 50 MLS/HR Meclizine HCl (Antivert) 25 mg PRN DAILY PRN 08/12/20 23:00 Meropenem 500 mg/ Sodium Chloride 50 ml @ 100 mls/hr Q6HRS 08/14/20 09:00 08/20/20 06:00 100 MLS/HR Methylprednisolone Sodium Succinate (SOLU-Medrol 40MG VIAL) 40 mg DAILY 07/21/20 09:00 07/22/20 09:36 DC 07/22/20 09:08 40 MG Midazolam HCl (Versed) 5 mg STK-MED ONCE 07/04/20 09:21 07/04/20 09:21 DC Morphine Sulfate (Morphine Sulfate) 1 mg PRN Q10MIN PRN 08/06/20 07:00 08/07/20 06:59 DC Multi-Ingred Cream/Lotion/Oil/ Oint (Artificial Tears Eye Ointment) 1 wenceslao PRN Q1HR PRN 07/18/20 10:45 07/27/20 17:19 1 WENCESLAO Norepinephrine Bitartrate 8 mg/ Dextrose 258 ml @ 16.061 mls/ hr CONT PRN 07/04/20 13:15 07/18/20 11:01 DC 07/05/20 00:33 28.909 MLS/HR Ondansetron HCl (Zofran) 4 mg PRN Q6HRS PRN 08/06/20 07:00 08/07/20 06:59 DC Pantoprazole Sodium (PROTONIX VIAL for IV PUSH) 40 mg DAILYAC 07/04/20 12:30 08/19/20 08:22 40 MG Piperacillin Sod/ Tazobactam Sod (Zosyn Per Pharmacy) 1 each PRN DAILY PRN 07/04/20 12:00 07/18/20 07:46 DC Piperacillin Sod/ Tazobactam Sod 3.375 gm/Sodium Chloride 50 ml @ 100 mls/hr Q6HRS 07/04/20 12:00 07/17/20 11:11 DC 07/17/20 05:10 100 MLS/HR Piperacillin Sod/ Tazobactam Sod 4.5 gm/Sodium Chloride 100 ml @ 200 mls/hr Q6HRS 07/24/20 12:00 07/26/20 10:53 DC 07/26/20 05:36 200 MLS/HR Potassium Bicarbonate (Potassium Effervescent Tablet) 40 meq 1X ONCE 08/15/20 09:45 08/15/20 09:46 DC 08/15/20 10:25 40 MEQ Potassium Chloride/Water 100 ml @ 100 mls/hr Q1H 08/13/20 13:00 08/13/20 16:59 DC 08/13/20 18:10 100 MLS/HR Potassium Phosphate 13.6 mmol/Sodium Chloride 254.5333 ml @ 62.5 mls/hr Q4H 07/24/20 15:30 07/25/20 03:29 UNV Prochlorperazine Edisylate (Compazine) 10 mg PRN Q6HRS PRN 08/12/20 21:30 08/19/20 13:34 10 MG Propofol 100 ml @ 0 mls/hr CONT PRN 07/04/20 09:15 08/11/20 06:42 14.9 MLS/HR Remdesivir 100 mg/ Sodium Chloride 230 ml @ 460 mls/hr Q24H 07/07/20 14:30 07/10/20 14:59 DC 07/10/20 13:59 460 MLS/HR Remdesivir 200 mg/ Sodium Chloride 210 ml @ 210 mls/hr 1X ONCE 07/06/20 14:30 07/06/20 15:29 DC 07/06/20 14:51 210 MLS/HR Ringer's Solution 1,000 ml @ 30 mls/hr Q24H 08/09/20 06:00 08/09/20 17:59 DC 08/09/20 06:11 30 MLS/HR Rocuronium [place] (Zemuron) 50 mg STK-MED ONCE 08/06/20 15:19 08/06/20 15:19 DC Sevoflurane (Ultane) 30 ml STK-MED ONCE 08/06/20 15:18 08/06/20 15:19 DC Sodium Chloride 1,000 ml @ 100 mls/hr Q10H 08/07/20 12:00 08/12/20 10:50 DC 08/11/20 16:30 100 MLS/HR Sodium Phosphate 20 mmol/Sodium Chloride 256.6667 ml @ 62.5 mls/hr 1X ONCE 07/24/20 15:30 07/24/20 19:36 UNV Sodium Phosphate 30 mmol/Sodium Chloride 260 ml @ 62.5 mls/hr 1X ONCE 07/24/20 15:30 07/24/20 19:39 UNV Succinylcholine Chloride (Anectine) 200 mg 1X ONCE 07/04/20 09:30 07/04/20 09:31 DC 07/04/20 09:38 200 MG Throat Lozenges (Cepacol Sore Throat Lozenge) 1 lety PRN Q2HRS PRN 07/04/20 01:15 Vancomycin HCl (Vanco Per Pharmacy) 1 each PRN DAILY PRN 08/11/20 13:30 08/14/20 08:03 DC 08/13/20 15:09 1 EACH Vancomycin HCl (Vancomycin Trough Level) 1 each 1X ONCE 08/13/20 14:30 08/13/20 14:31 DC Vancomycin HCl 1.25 gm/Sodium Chloride 250 ml @ 167 mls/hr Q8H 07/25/20 15:00 07/26/20 07:31 DC 07/25/20 22:44 167 MLS/HR Vancomycin HCl 1.5 gm/Sodium Chloride 500 ml @ 250 mls/hr Q8H 08/11/20 23:00 08/12/20 15:13 DC 08/12/20 14:49 250 MLS/HR Vancomycin HCl 1.75 gm/Sodium Chloride 500 ml @ 250 mls/hr Q8H 08/12/20 23:00 08/14/20 08:01 DC 08/14/20 07:04 250 MLS/HR Vancomycin HCl 2 gm/Sodium Chloride 500 ml @ 250 mls/hr 1X ONCE 07/25/20 07:00 07/25/20 08:59 DC 07/25/20 07:06 250 MLS/HR Vecuronium [place] 50 mg/ Miscellaneous 50 ml @ 4.094 mls/ hr CONT PRN 07/12/20 14:45 07/22/20 09:34 DC 07/18/20 01:56 7.5 MLS/HR Vecuronium [place] (Norcuron Bolus) 6 mg PRN Q6HRS PRN 07/28/20 23:00 08/09/20 15:05 6 MG Vitamin D (Vitamin D3) 5,000 unit DAILY 07/05/20 09:00 08/19/20 08:22 5,000 UNIT Zinc Sulfate (Orazinc) 220 mg DAILY 07/05/20 09:00 08/19/20 08:22 220 MG Labs: Lab Laboratory Tests Test 08/19/20 11:36 08/19/20 12:17 08/19/20 17:47 08/19/20 17:50 Glucose (Fingerstick) 142 mg/dL (70-99) 146 mg/dL (70-99) 235 mg/dL (70-99) Total Bilirubin 0.2 mg/dL (0.2-1.0) Direct Bilirubin 0.1 mg/dL (0.0-0.2) Aspartate Amino Transf (AST/SGOT) 30 U/L (15-37) Alanine Aminotransferase (ALT/SGPT) 51 U/L (16-63) Alkaline Phosphatase 100 U/L (46-116) Total Protein 6.8 g/dL (6.4-8.2) Albumin 2.2 g/dL (3.4-5.0) Test 08/20/20 00:27 08/20/20 06:32 Glucose (Fingerstick) 121 mg/dL (70-99) 132 mg/dL (70-99) Objective: Assessment: Left pleural effusion status post CTS August 15 Left thoracocentesis with CTS pH 7.73, cell count, glucose, protein .ldh noted, cult neg Fevers Source ?? Leukocytosis improved COVID-19 positive. Status post remdesivir, steroids Acute hypoxic respiratory failure/ARDS /pneumonia H/O Bilateral pulmonary emboli. Hypertension. Bacteremia 07/23 1/ bottles staph hominis likely contaminant Repeat blood cultures staph capitis likely contaminant Repeat BC 08/06 staph pettenkori likely contaminant Enterobacter UTI and pneumonia Treated Plan: Plan of Care Cont Merrem 08/14 C. difficile negative f/u cults negative so far tracheal aspirate for afb stain and cultures negative so far Follow-up HIV and acute hepatitis panel D/W JAMI LUCAS MD Aug 20, 2020 08:31
--- NOTE | 2020-08-20 09:45 | PDOC ---
PULMONARY PROGRESS NOTES DATE: 08/20/20 TIME: 09:41 Subjective PT. tolerating TS well Status post tracheostomy on 08/06/2020 and S/P peg tube on 08/09 low grade fevers s/p left chest tube, 2 litres came out initially. not much drainage in last 24 hrs No other concerns from nursing overnight Vitals Vital Signs Date Time Temp Pulse Resp B/P (MAP) Pulse Ox O2 Delivery O2 Flow Rate FiO2 08/20/20 08:00 Trach Collar 08/20/20 04:00 98.9 78 30 140/89 (106) 100 98.9 08/19/20 20:26 8.0 Comments General: Alert, No acute distress Lungs: Clear Cardiovascular: S1, S2 Abdomen: Soft Neuro Exam: Alert Extremities: No Edema Skin: Warm, Dry Labs Laboratory Tests Test 08/18/20 11:47 08/18/20 17:39 08/18/20 23:35 08/19/20 06:08 Glucose (Fingerstick) 134 mg/dL (70-99) 123 mg/dL (70-99) 121 mg/dL (70-99) 125 mg/dL (70-99) Test 08/19/20 11:36 08/19/20 12:17 08/19/20 17:47 08/19/20 17:50 Glucose (Fingerstick) 142 mg/dL (70-99) 146 mg/dL (70-99) 235 mg/dL (70-99) Total Bilirubin 0.2 mg/dL (0.2-1.0) Direct Bilirubin 0.1 mg/dL (0.0-0.2) Aspartate Amino Transf (AST/SGOT) 30 U/L (15-37) Alanine Aminotransferase (ALT/SGPT) 51 U/L (16-63) Alkaline Phosphatase 100 U/L (46-116) Total Protein 6.8 g/dL (6.4-8.2) Albumin 2.2 g/dL (3.4-5.0) Test 08/20/20 00:27 08/20/20 06:32 Glucose (Fingerstick) 121 mg/dL (70-99) 132 mg/dL (70-99) Laboratory Tests Test 08/19/20 11:36 08/19/20 12:17 08/19/20 17:47 08/19/20 17:50 Glucose (Fingerstick) 142 mg/dL (70-99) 146 mg/dL (70-99) 235 mg/dL (70-99) Total Bilirubin 0.2 mg/dL (0.2-1.0) Direct Bilirubin 0.1 mg/dL (0.0-0.2) Aspartate Amino Transf (AST/SGOT) 30 U/L (15-37) Alanine Aminotransferase (ALT/SGPT) 51 U/L (16-63) Alkaline Phosphatase 100 U/L (46-116) Total Protein 6.8 g/dL (6.4-8.2) Albumin 2.2 g/dL (3.4-5.0) Test 08/20/20 00:27 08/20/20 06:32 Glucose (Fingerstick) 121 mg/dL (70-99) 132 mg/dL (70-99) Comments CXR 08/20 IMPRESSION: small left effusion, bilateral infiltrates L>R CT CHEST 08/14 1. Marked interval enlargement of left lateral effusion. This could be causing some mass effect on the mediastinum. 2. Extensive pleural-parenchymal scarring and patchy airspace opacities in the lungs compatible with the sequelae of atypical pneumonia. Electronically signed by: Gosia Li MD (08/14/2020 1:28 PM) [id number] Impression . IMPRESSION: 1. Acute hypoxemic respiratory failure./ALI/ARDS due to COVID -19, much improved. 2. Acute pulmonary embolism , still some residual PE, on Eliquis 3. COVID-19 pnemonia.now with low grade fevers, suspect VAP/ less likely empyema ( based on analysis) 5. Hypertension. 6. History of bronchitis. 7. Elevated troponin. 8. Acute kidney injury. 9. Leukocytosis. 10. Covid-[address] chest 08/14 , large left effusion, improved post chest tube left, no sig drainage or increase effusion, s/p clamp last 24 hr Plan . Continue TS 24 hrs will downsize in few days and try capping once secretions better s/p left chest tube, non purulent, await analysis, normal PH, output minimal, will remove tube today Status post tracheostomy 08/06 and S/P Peg tube placement 08/09 repeat CTA chest with residual PE. f/u, dopplers neg, re started Eliquis 08/18 f/u chest x-ray as needed Follow cardiology recommendations Antibiotics per ID--AFB negative, repeat cultures negative, , currently on humberto, zyvox Has completed full course of remdesivir Continue tube feeding for nutritional support DVT/GI prophylaxis,Protonix-- heparin gtt Discussed with RN and RT Pt. is FULL CODE NERY SALINAS MD Aug 20, 2020 09:45
--- NOTE | 2020-08-20 10:24 | PDOC ---
Date of Service: DATE: 08/20/20 TIME: 10:19 Subjective: Subjective: Denies abdominal pain. Objective: Objective: D/w nurse - PEG functioning at goal rate, has rectal tube still - stools are "like tube feeds." Pulm team removing chest tube. Vital Signs: Vital Signs Date Time Temp Pulse Resp B/P (MAP) Pulse Ox O2 Delivery O2 Flow Rate FiO2 08/20/20 08:00 Trach Collar 08/20/20 04:00 98.9 78 30 140/89 (106) 100 98.9 08/19/20 20:26 8.0 Labs: Laboratory Tests Test 08/19/20 11:36 08/19/20 12:17 08/19/20 17:47 08/19/20 17:50 Glucose (Fingerstick) 142 mg/dL 146 mg/dL 235 mg/dL Total Bilirubin 0.2 mg/dL Direct Bilirubin 0.1 mg/dL Aspartate Amino Transf (AST/SGOT) 30 U/L Alanine Aminotransferase (ALT/SGPT) 51 U/L Alkaline Phosphatase 100 U/L Total Protein 6.8 g/dL Albumin 2.2 g/dL Test 08/20/20 00:27 08/20/20 06:32 Glucose (Fingerstick) 121 mg/dL 132 mg/dL C Diff negative 08/14 GRAM STAIN Final Final NO ORGANISMS SEEN. SQUAMOUS EPI CELL:NOT APPLICABLE PMN (WBCs):FEW Unless otherwise specified, Testing Performed by: [address] [id number] For Inquires, the Physician may contact the Microbiology department at [phone] ANAEROBIC-AEROBIC CULTURE Final Final No Growth on 08/16/20 at 1140 No Growth on 08/17/20 at 0912 No Growth on 08/20/20 at 0854 Unless otherwise specified, Testing Performed by: [address] [id number] For Inquires, the Physician may contact the Microbiology department at [phone] Imaging: CXR 08/20 IMPRESSION: Aeration of the lungs appears similar to the prior examination. Support lines and tubes are in similar position. PE: GEN: NAD - a bit uncomfortable after CT removal, has arm across chest/abdomen LUNGS: trach collar/some tachypnea HEART: RR ABD: PEG in place w/ gauze over bumper, feeds running, rectal tube w/ brown stool NEURO/PSYCH: A & O 3 - speaks Ukrainian A/P: Resp failure s/p tracheostomy and PEG -- PEG functioning. Stable from GI standpoint - will sign off. Justicifation of Admission Dx: Justifications for Admission: Justification of Admission Dx: Yes LYNETTE CELIS Aug 20, 2020 10:23
[2020-08-20] MEDS: APIXABAN 5 MG TABLET. PO SCH ×2 (10:28→21:15)
[2020-08-20] MEDS: ZINC SULFATE 220 MG CAPSULE. PO SCH (10:28)
[2020-08-20] MEDS: CHOLECALCIFEROL (VITAMIN D3) 5,000 UNIT CAPSULE PO SCH (10:28)
[2020-08-20] MEDS: PANTOPRAZOLE IV PUSH 40 MG VIAL. IVP SCH (10:29)
--- NOTE | 2020-08-20 11:40 | PDOC ---
[employer] PROGRESS NOTE Date of Service DOS: DATE: 08/20/20 TIME: 11:38 Chief Complaint Chief Complaint A/P: Acute hypoxic respiratory failure requiring VENT SUPPORT STATUS post trach placement 08/06/2020 S/P Peg tube placement 08/09 Acute hypoxic respiratory failure/ARDS /pneumonia Bilateral perihilar and basilar opacities, progressed in the left base. 07-26 COVID-19 Subsegmental bilateral PE Sepsis NSTEMI AKA Lactic acidosis Hyponatremia, RESOLVED hgb 6.5 07-27, transfused 1 unit prbc's - bled on eliquis, now on heparin GTT hypokalemia, on replacement Left pleural effusion Plan: Spontaneous breathing trial today attempt to wean to extubate Appreciate pulmonology recommendations Continue current ventilatory support, currently on 70% and PEEP of 6, avoid increasing PEEP 2/2 risk of barotrauma Follow chest x-ray and ABG, vent management as per pulmonology Heparin has been transitioned to Xarelto Solu-Medrol 40 mg every 12 hours Appreciate ID recommendationscontinue Remdesivir and empiric antibiotics IV fluids Discussed with RN and JAVIER. Antibiotics per ID-- off ABX, infectious disease following increasing leukocytosis has completed full course of remdesivir continue tube feeding for nutritional support History of Present Illness History of Present Illness Mr Soni is 49-year-old male with past medical history of hypertension, who presented to the ED 07/04/2020 with complaints of worsening shortness of breath over the past 5 days prior to admit. Associated sore throat, fatigue, and generalized weakness. Patient was reportedly tested for COVID-19 prior to admit, but he had negative test results. His symptoms acutely worsened yesterday. Upon arrival to the ER his oxygen saturation was 60% on room air. He was placed on BiPAP and admitted to the ICU. Patient was subsequently intubated due to worsening respiratory failure. s/p remdesivir 07/08/2020. Tracheostomy 08/06/2020, PEG 08/09/202008/12: No acute events overnight. Patient has T-max of 99.7. Currently on minimal vent settings.> 50% time spent in patient chart, labs, and imaging review and in discussion with RN and SW 08/13: Overnight Tmax 100.6F. Tires out easily on vent. 08/14: 101.5 F overnight. Stool sample on urine sample taken today. No growth on cultures as of yet. Still requiring vent support via his trach. No residuals on tube feeds. CT chest with left loculated effusion 08/15: 100.4 F overnight. Left Thoracostomy tube inserted today. Still requiring vent support via trach. 08/16: T-max 100.8 F overnight. Still requiring vent support via trach. Chest tube w/o air leak. 08/17: T [id number] overnight. Still requiring vent support via trach. Chest tube still with output, no air leak. 08/18: T-max 100.4 F overnight. On trach collar 30 L O2 currently. Minimal chest tube output, improved. CTPA still with left pulmonary embolism. Afebrile overnight. On trach collar 30 L O2 currently. Minimal chest tube output chest radiograph appears improved pigtail catheter in good position. 08/19/2020 No acute events overnight. Patient is on a trach collar currently. Chest tube in place with minimal output. Pending pleural fluid analysis. Patient's chart, labs, images were reviewed and discussed with RN Plan: Cont eliquis Chest tube per pulm Ok to transfer to CVC on trach shield 08/11/2020 No acute events overnight. Patient with T-max of 100.8 overnight. Currently on minimal vent settings. Trached and pegged. Social work following for Medicare approval.> 50% time spent in patient chart, labs, and imaging review and in discussion with RN and SW 08/10/2020 no acute events overnight. Patient is on minimal vent settings. PEG tube placed yesterday. Will attempt to wean to extubate today.> 50% time spent in patient chart, labs, and imaging review and in discussion with RN and SW 08/09/2020 No acute events overnight. T-max of 100.0 F. Patient is on minimal ventilatory settings.> 50% time spent in patient chart, labs, and imaging review and in discussion with RN and SW 08/08/2020 Patient tolerating trach and ventilatory goldy support on 40% FiO2 and 5 of PEEP. Pending PEG tube placement tomorrow.> 50% time spent in patient chart, labs, and imaging review and in discussion with RN and SW 08/07/2020 No acute events overnight. Fever T-max of 101.1. Trach was placed yesterday. On minimal vent settings.> 50% time spent in patient chart, labs, and imaging review and in discussion with RN and SW 08/06/2020 No acute events overnight. Patient is afebrile. Currently on minimal vent settings. Pending trach today. Patient's chart, labs, images were reviewed and discussed with RN A total of 35 minutes of critical care time was spent in reviewing chart, labs, and images. Discussed with RN and SW. 08/05/2020 Patient seen and evaluated. No acute events, febrile overnight. Mechanically ventilated with FiO2 40%, PEEP 6. Plan for trach Thursday. 08/04/2020 Patient seen in [facility] ICU. Still with low-grade fevers. Mechanically ventilated, FiO2 40%, PEEP 6. No acute change, plan for trach Thursday. 08/03/2020 Patient seen in [facility]- ICU. Still with low-grade fever. He remains on vent with FiO2 100%, PEEP 12. Plan for trach on Thursday, and PEG at some point after. 08/02/2020 Patient seen and evaluated in [facility] ICU. He is febrile this morning. Still intubated mechanically ventilated with FiO2 40 %, PEEP 6. Plans for tracheostomy today. 08/01/2020 Patient seen in [facility] ICU. Patient remains slightly febrile. Mechanically ventilated, FiO2 45%, PEEP 6. Tracheostomy unable to perform yesterday, general surgery to attempt again today. Discussed with RN. 07/31/2020 Patient still spiking fevers. Patient remains on vent, FiO2 45%, PEEP 6. Tracheostomy tentatively planned for today. 07/30/2020 Patient seen in [facility]- ICU. He is febrile on vent, FiO2 45%, PEEP 6. Will attempt to speak with family about decision on trach and PEG tube. Discussed with RN. t max 102 f fio2 50% 07/21/2020 Patient no acute events reported overnight. Patient continues to require a lot of support from vent. Discussed with RN 09/19/2019 Patient continues to be pretty much the same , fio2 is at 70%, heparin 07/19/2020 Patient hypotensive today, we will follow recommendations from critical day care assistant. Vent management as per production consultant, no other complaints. 07/18/2020 Patient with no acute events reported overnight, fio2 is now at 75% PEEP of 6, Vent management as per pulmonary production consultant slight increase in temperature noted over the lat 24 hours. Will continue to follow 07/17/2020 Patient with no acute events reported overnight, contineus to require an fio2 of 80%, continue with supportive measures. 07/16/2020 Patient with no acute events reported overnight, patient continues to require quite a bit of FiO2 at 80%. Vent management as per production consultant, will place a call to family members after rounding. Discussed with RN 07/15/2020 Patient seen and examined bedside in the ICU. FiO2 80% PEEP of 6.pH 7.56, PCO2 32, PO2 56, HCO3 28. Will adjust respiratory rate accordingly to correct pH.> 50% time spent in patient chart, labs, and imaging review and in discussion with RN and JAVIER 07/14/2020 Patient seen and examined bedside. FiO2 65% and PEEP of 6 on vent. ABG: pH 7.26, PCO2 77, PO2 114, HCO3 34. We will adjust respiratory rate or tidal volume to titrate pH.> 50% time spent in patient chart, labs, and imaging review and in discussion with RN and JAVIER 07/13/2020 No acute events overnight. Patient examined bedside sedated and intubated. FiO2 70% PEEP of 6. Improved ABGs.> 50% time spent in patient chart, labs, and imaging review and in discussion with RN and JAVIER 07/12/2020 Patient seen and examined in the ICU. Sedated and intubated. FiO2 65, PEEP of 8 with improved oxygenation. pH 7.4, PCO2 48, PO2 94, HCO3 30. +500 cc fluid balance.> 50% time spent in patient chart, labs, and imaging review and in discussion with RN and JAVIER 07/11/2020 Patient seen and examined bedside in the ICU. Patient continues to be intubated and sedated. FiO2 75%, PEEP of 10. pH 7.40, PCO2 44, PO2 is 135, HCO3 26. Can likely decrease FiO2 due to improved oxygenation. +173 cc in the past 24 hours 07/10/2020 Patient seen and examined bedside in ICU. Patient is intubated and sedated. FiO2 90%, PEEP of 10, respiratory rate of 30. ABG: pH is 7.41, PCO2 42, PO2 113, HCO3 26. 07/05: Patient seen in ICU, still intubated and sedated. COVID-19 pending. Patient remains on heparin infusion. Discussed with RN, will try to have central line placed per anesthesia. 07/06: Patient seen in ICU. Still FiO2 100% on vent and sedated. COVID-19 pos itive. Continue heparin infusion, Zosyn, steroids. 07/07: Covid positive patient seen in ICU. On vent with FiO2 100%, PEEP 10. Continue remdesivir, steroids, Zosyn. Continue to monitor 07/08: Patient seen in [facility] ICU. Still on vent with FiO2 100%, PEEP 10. Afebrile. No acute events overnight. Continue steroids, antibiotics, and remdesivir. 07/09: Patient seen and examined in the ICU. Intubated and sedated. Vent settings FiO2 90%, PEEP of 10, respiratory rate of 30. Vitals/I&O Vitals/I&O: Vital Signs Date Time Temp Pulse Resp B/P (MAP) Pulse Ox O2 Delivery O2 Flow Rate FiO2 08/20/20 08:00 Trach Collar 08/20/20 04:00 98.9 78 30 140/89 (106) 100 98.9 08/19/20 20:26 8.0 I & O 08/19/20 08/19/20 08/20/20 15:00 23:00 07:00 Intake Total 930 ml 1043 ml Output Total 0 ml 1660 ml 1370 ml Balance 0 ml -730 ml -327 ml Physical Exam Physical Exam: General on vent,alert HEENT normocephalic atraumatic , Neck trach present LUNGS: Clear anteriorly, left CTS HEART: S1-S2 no murmurs ABDOMEN: mildly distended, soft bowel sounds present Fernandez in place,fecal tube in place SKIN: No generalized rash Right upper extremity PICC line removed PIVs Clean Neuro alert awake General: Other (sedated ) Lungs: Clear Labs Labs: Laboratory Tests Test 08/19/20 12:17 08/19/20 17:47 08/19/20 17:50 08/20/20 00:27 Total Bilirubin 0.2 mg/dL (0.2-1.0) Direct Bilirubin 0.1 mg/dL (0.0-0.2) Aspartate Amino Transf (AST/SGOT) 30 U/L (15-37) Alanine Aminotransferase (ALT/SGPT) 51 U/L (16-63) Alkaline Phosphatase 100 U/L (46-116) Total Protein 6.8 g/dL (6.4-8.2) Albumin 2.2 g/dL (3.4-5.0) Glucose (Fingerstick) 146 mg/dL (70-99) 235 mg/dL (70-99) 121 mg/dL (70-99) Test 08/20/20 06:32 Glucose (Fingerstick) 132 mg/dL (70-99) Assessment and Plan Assessmemt and Plan Problems Medical Problems: (1) Acute respiratory failure with hypoxia Status: Acute (2) PRIYA (acute kidney injury) Status: Acute (3) Elevated troponin I level Status: Acute (4) Pulmonary emboli Status: Acute (5) Suspected COVID-19 virus infection Status: Acute Comment Review of Relevant I have reviewed the following items trino (where applicable) has been applied. Justifications for Admission Other Justification DOROTHEA VIRK MD Aug 20, 2020 11:40
--- NOTE | 2020-08-20 12:03 | NUR ---
SW following. Discussed with RN, pt still has a trach and is medically unstable for discharge. SW will continue to follow.
--- NOTE | 2020-08-20 14:21 | NUR ---
RN NOTE this RN took over care of this patient and agree with previous RN assessments. patient in chair with tube feed going call light within reach
[2020-08-21] MEDS: MEROPENEM 500 MG in IV NORMAL SALINE 50ML 50 ML IV SCH ×4 (00:26→18:05)
[2020-08-21] MEDS: INSULIN LISPRO 300 UNITS/3 ML VIAL. SQ SCH ×4 (00:26→18:00)
[2020-08-21 03:00] VITALS: BP 115/68
[2020-08-21 07:00] VITALS: BP 119/68
[2020-08-21] MEDS: LANSOPRAZOLE 30 MG TAB.RAP.DR FT SCH (09:00)
--- NOTE | 2020-08-21 09:37 | PDOC ---
Infectious Disease Note Subjective: Subjective Patient with trach on vent Alert awake Febrile last night Vital Signs: Vital Signs Vital Signs Date Time Temp Pulse Resp B/P (MAP) Pulse Ox O2 Delivery O2 Flow Rate FiO2 08/21/20 08:55 99 Tracheal Collar 8.0 08/21/20 07:00 99.6 79 26 119/68 (85) 99.6 Physical Exam: PHYSICAL EXAM General on vent,alert HEENT normocephalic atraumatic , Neck trach present LUNGS: Clear anteriorly, left CTS HEART: S1-S2 no murmurs ABDOMEN: mildly distended, soft bowel sounds present Fernandez in place,fecal tube in place SKIN: No generalized rash Right upper extremity PICC line removed PIVs Clean Neuro alert awake Medications: Inpatient Meds: Current Medications Medications (Trade) Dose Ordered Sig/Natalee Start Time Stop Time Status Last Admin Dose Admin Acetaminophen (Tylenol Supp) 650 mg PRN Q6HRS PRN 08/06/20 20:45 08/07/20 19:28 650 MG Acetaminophen (Tylenol) 650 mg PRN Q6HRS PRN 07/12/20 12:00 08/18/20 21:58 650 MG Apixaban (Eliquis) 5 mg BID 08/18/20 10:00 08/20/20 21:15 5 MG Ascorbic Acid (Vitamin C) 500 mg Q6HRS 07/04/20 18:00 08/05/20 08:39 DC 08/05/20 06:07 500 MG Azithromycin (Zithromax) 500 mg 1X ONCE 07/03/20 19:15 07/03/20 19:19 DC 07/03/20 20:11 500 MG Bupivacaine HCl/ Epinephrine Bitart (Sensorcain-Epi 0.5%-1:[id number] Mpf) 30 ml 1X ONCE 08/06/20 06:30 08/06/20 06:31 DC 08/06/20 15:15 1 ML Cefazolin Sodium/ Dextrose 50 ml @ 100 mls/hr 1X ONCE 08/09/20 11:00 08/09/20 11:29 DC 08/09/20 11:04 100 MLS/HR Ceftriaxone Sodium (Rocephin) 1 gm 1X ONCE 07/03/20 19:15 07/03/20 19:19 DC 07/03/20 20:11 1 GM Cellulose (Surgicel Fibrillar 1x2) 1 each STK-MED ONCE 07/31/20 13:08 07/31/20 13:08 DC Cellulose (Surgicel Hemostat 4x8) 1 each STK-MED ONCE 08/06/20 14:10 08/06/20 14:11 DC Daptomycin 470 mg/ Sodium Chloride 50 ml @ 100 mls/hr Q24H 08/01/20 09:00 08/05/20 11:20 DC 08/05/20 09:24 100 MLS/HR Dexmedetomidine HCl 400 mcg/ Sodium Chloride 100 ml @ 0 mls/hr CONT PRN 08/11/20 10:00 08/17/20 11:29 4.1 MLS/HR Dextrose (Dextrose 50%-Water Syringe) 12.5 gm PRN Q15MIN PRN 08/14/20 08:00 UNV Enoxaparin Sodium (Lovenox 150mg Syringe) 150 mg 1X ONCE 07/03/20 23:00 07/03/20 23:01 DC 07/03/20 22:45 150 MG Etomidate (Amidate) 10 mg 1X ONCE 07/04/20 09:30 07/04/20 09:31 DC 07/04/20 09:37 10 MG Fentanyl Citrate (Fentanyl 2ml Vial) 50 mcg 1X ONCE 08/15/20 14:15 08/15/20 14:18 DC 08/15/20 14:29 50 MCG Furosemide (Lasix) 20 mg 1X ONCE 07/29/20 06:30 07/29/20 06:31 DC 07/29/20 06:35 20 MG Heparin Sodium (Porcine) (Heparin Sodium) 1,250 unit PRN Q6HRS PRN 08/11/20 14:30 08/18/20 10:00 DC 08/14/20 22:56 1,250 UNIT Heparin Sodium/ Dextrose 250 ml @ 0 mls/hr CONT PRN 08/11/20 14:30 08/18/20 10:00 DC 08/18/20 00:46 26.2 MLS/HR Hydromorphone HCl (Dilaudid) 0.5 mg PRN Q10MIN PRN 08/06/20 07:00 08/07/20 06:59 DC Info (Anti-Coagulation Monitoring By Pharmacy) 1 each PRN DAILY PRN 07/16/20 08:15 08/14/20 09:40 1 EACH Info (CONTRAST GIVEN -- Rx MONITORING) 1 each PRN DAILY PRN 08/17/20 05:45 08/19/20 05:44 DC Info (Icu Electrolyte Protocol) 1 ea CONT PRN PRN 07/24/20 15:45 Insulin Human Lispro (HumaLOG) 0-7 UNITS Q6HRS 08/14/20 12:00 08/19/20 11:38 3 UNITS Iohexol (Omnipaque 350 Mg/ml) 100 ml 1X ONCE 08/17/20 05:45 08/17/20 05:46 DC 08/17/20 05:45 100 ML Lansoprazole (Prevacid) 30 mg DAILY 08/21/20 09:00 Levofloxacin/ Dextrose 150 ml @ 100 mls/hr Q24H 08/02/20 09:00 08/05/20 11:20 DC 08/05/20 07:16 100 MLS/HR Lidocaine HCl (Buffered Lidocaine 1%) 6 ml 1X ONCE 08/15/20 13:00 08/15/20 13:01 DC 08/15/20 13:07 5 ML Lidocaine HCl (Xylocaine-Mpf 1% 2ml Vial) 2 ml PRN 1X PRN 08/06/20 07:00 08/07/20 06:59 DC Linezolid (Zyvox) 600 mg BID 08/14/20 09:00 08/19/20 12:00 DC 08/19/20 08:22 600 MG Linezolid/Dextrose 300 ml @ 300 mls/hr Q12HR 07/27/20 12:30 07/31/20 07:36 DC 07/30/20 21:47 300 MLS/HR Lorazepam (Ativan Inj) 2 mg PRN Q1HR PRN 07/21/20 12:30 08/18/20 00:45 2 MG Magnesium Sulfate 100 ml @ 50 mls/hr DAILY 08/13/20 00:00 08/16/20 00:00 DC 08/15/20 08:43 50 MLS/HR Meclizine HCl (Antivert) 25 mg PRN DAILY PRN 08/12/20 23:00 Meropenem 500 mg/ Sodium Chloride 50 ml @ 100 mls/hr Q6HRS 08/14/20 09:00 08/21/20 05:32 100 MLS/HR Methylprednisolone Sodium Succinate (SOLU-Medrol 40MG VIAL) 40 mg DAILY 07/21/20 09:00 07/22/20 09:36 DC 07/22/20 09:08 40 MG Midazolam HCl (Versed) 5 mg STK-MED ONCE 07/04/20 09:21 07/04/20 09:21 DC Morphine Sulfate (Morphine Sulfate) 1 mg PRN Q10MIN PRN 08/06/20 07:00 08/07/20 06:59 DC Multi-Ingred Cream/Lotion/Oil/ Oint (Artificial Tears Eye Ointment) 1 wenceslao PRN Q1HR PRN 07/18/20 10:45 07/27/20 17:19 1 WENCESLAO Norepinephrine Bitartrate 8 mg/ Dextrose 258 ml @ 16.061 mls/ hr CONT PRN 07/04/20 13:15 07/18/20 11:01 DC 07/05/20 00:33 28.909 MLS/HR Ondansetron HCl (Zofran) 4 mg PRN Q6HRS PRN 08/06/20 07:00 08/07/20 06:59 DC Pantoprazole Sodium (PROTONIX VIAL for IV PUSH) 40 mg DAILYAC 07/04/20 12:30 08/20/20 10:25 DC 08/20/20 10:29 40 MG Piperacillin Sod/ Tazobactam Sod (Zosyn Per Pharmacy) 1 each PRN DAILY PRN 07/04/20 12:00 07/18/20 07:46 DC Piperacillin Sod/ Tazobactam Sod 3.375 gm/Sodium Chloride 50 ml @ 100 mls/hr Q6HRS 07/04/20 12:00 07/17/20 11:11 DC 07/17/20 05:10 100 MLS/HR Piperacillin Sod/ Tazobactam Sod 4.5 gm/Sodium Chloride 100 ml @ 200 mls/hr Q6HRS 07/24/20 12:00 07/26/20 10:53 DC 07/26/20 05:36 200 MLS/HR Potassium Bicarbonate (Potassium Effervescent Tablet) 40 meq 1X ONCE 08/15/20 09:45 08/15/20 09:46 DC 08/15/20 10:25 40 MEQ Potassium Chloride/Water 100 ml @ 100 mls/hr Q1H 08/13/20 13:00 08/13/20 16:59 DC 08/13/20 18:10 100 MLS/HR Potassium Phosphate 13.6 mmol/Sodium Chloride 254.5333 ml @ 62.5 mls/hr Q4H 07/24/20 15:30 07/25/20 03:29 UNV Prochlorperazine Edisylate (Compazine) 10 mg PRN Q6HRS PRN 08/12/20 21:30 08/19/20 13:34 10 MG Propofol 100 ml @ 0 mls/hr CONT PRN 07/04/20 09:15 08/11/20 06:42 14.9 MLS/HR Remdesivir 100 mg/ Sodium Chloride 230 ml @ 460 mls/hr Q24H 07/07/20 14:30 07/10/20 14:59 DC 07/10/20 13:59 460 MLS/HR Remdesivir 200 mg/ Sodium Chloride 210 ml @ 210 mls/hr 1X ONCE 07/06/20 14:30 07/06/20 15:29 DC 07/06/20 14:51 210 MLS/HR Ringer's Solution 1,000 ml @ 30 mls/hr Q24H 08/09/20 06:00 08/09/20 17:59 DC 08/09/20 06:11 30 MLS/HR Rocuronium Lawtell (Zemuron) 50 mg STK-MED ONCE 08/06/20 15:19 08/06/20 15:19 DC Sevoflurane (Ultane) 30 ml STK-MED ONCE 08/06/20 15:18 08/06/20 15:19 DC Sodium Chloride 1,000 ml @ 100 mls/hr Q10H 08/07/20 12:00 08/12/20 10:50 DC 08/11/20 16:30 100 MLS/HR Sodium Phosphate 20 mmol/Sodium Chloride 256.6667 ml @ 62.5 mls/hr 1X ONCE 07/24/20 15:30 07/24/20 19:36 UNV Sodium Phosphate 30 mmol/Sodium Chloride 260 ml @ 62.5 mls/hr 1X ONCE 07/24/20 15:30 07/24/20 19:39 UNV Succinylcholine Chloride (Anectine) 200 mg 1X ONCE 07/04/20 09:30 07/04/20 09:31 DC 07/04/20 09:38 200 MG Throat Lozenges (Cepacol Sore Throat Lozenge) 1 lety PRN Q2HRS PRN 07/04/20 01:15 Vancomycin HCl (Vanco Per Pharmacy) 1 each PRN DAILY PRN 08/11/20 13:30 08/14/20 08:03 DC 08/13/20 15:09 1 EACH Vancomycin HCl (Vancomycin Trough Level) 1 each 1X ONCE 08/13/20 14:30 08/13/20 14:31 DC Vancomycin HCl 1.25 gm/Sodium Chloride 250 ml @ 167 mls/hr Q8H 07/25/20 15:00 07/26/20 07:31 DC 07/25/20 22:44 167 MLS/HR Vancomycin HCl 1.5 gm/Sodium Chloride 500 ml @ 250 mls/hr Q8H 08/11/20 23:00 08/12/20 15:13 DC 08/12/20 14:49 250 MLS/HR Vancomycin HCl 1.75 gm/Sodium Chloride 500 ml @ 250 mls/hr Q8H 08/12/20 23:00 08/14/20 08:01 DC 08/14/20 07:04 250 MLS/HR Vancomycin HCl 2 gm/Sodium Chloride 500 ml @ 250 mls/hr 1X ONCE 07/25/20 07:00 07/25/20 08:59 DC 07/25/20 07:06 250 MLS/HR Vecuronium Lawtell 50 mg/ Miscellaneous 50 ml @ 4.094 mls/ hr CONT PRN 07/12/20 14:45 07/22/20 09:34 DC 07/18/20 01:56 7.5 MLS/HR Vecuronium Lawtell (Norcuron Bolus) 6 mg PRN Q6HRS PRN 07/28/20 23:00 08/09/20 15:05 6 MG Vitamin D (Vitamin D3) 5,000 unit DAILY 07/05/20 09:00 08/20/20 10:28 5,000 UNIT Zinc Sulfate (Orazinc) 220 mg DAILY 07/05/20 09:00 08/20/20 10:28 220 MG Labs: Lab Laboratory Tests Test 08/20/20 12:57 08/20/20 16:47 08/20/20 20:03 08/21/20 00:24 Glucose (Fingerstick) 144 mg/dL (70-99) 121 mg/dL (70-99) 140 mg/dL (70-99) 134 mg/dL (70-99) Test 08/21/20 07:42 Glucose (Fingerstick) 132 mg/dL (70-99) Objective: Assessment: Left pleural effusion status post CTS August 15 Left thoracocentesis with CTS pH 7.73, cell count, glucose, protein .ldh noted, cult neg Fevers Source ?? Leukocytosis improved COVID-19 positive. Status post remdesivir, steroids Acute hypoxic respiratory failure/ARDS /pneumonia H/O Bilateral pulmonary emboli. Hypertension. Bacteremia 07/23 08/25 bottles staph hominis likely contaminant Repeat blood cultures staph capitis likely contaminant Repeat BC 08/06 staph pettenkori likely contaminant Enterobacter UTI and pneumonia Treated Plan: Plan of Care Cont Merrem 08/14 Start doxy C. difficile negative 08/14 f/u cults negative so far tracheal aspirate for afb stain and cultures negative so far Follow-up acute hepatitis panel HIV negative CT abdomen and pelvis without D/W JAMI LUCAS MD Aug 21, 2020 09:37
[2020-08-21] MEDS: CHOLECALCIFEROL (VITAMIN D3) 5,000 UNIT CAPSULE PO SCH (10:00)
[2020-08-21] MEDS: APIXABAN 5 MG TABLET. PO SCH ×2 (10:00→20:54)
[2020-08-21] MEDS: ZINC SULFATE 220 MG CAPSULE. PO SCH (10:00)
[2020-08-21] MEDS: DOXYCYCLINE HYCLATE 100 MG TABLET PO SCH ×2 (10:03→20:54)
--- NOTE | 2020-08-21 10:10 | PATHOLOGY ---
Note [facility] Accession Number: [id number] TESTS RESULT FLAG UNITS REF RANGE LAB Clinician Provided Cytology Information No. of containers..01 Other (Miscellaneous) Source: LT PLEURAL FLUID DIAGNOSIS: LT PLEURAL FLUID NEGATIVE FOR MALIGNANT CELLS. REACTIVE MESOTHELIAL CELLS ARE PRESENT. THIS INTERPRETATION INCLUDES EVALUATION OF A CELL BLOCK. Signed out by: 02 Ran Paul MD, Pathologist NPI- [id number] Performed by: Nieves Gonzalez, [employer] ([facility]) Gross description: 25ML, RED, 1 TP 1CB /LCS 08/16/2020 0801 Local FLAG LEGEND: L-Low Normal,H-High Normal,LL-Alert Low,HH-Alert High <-Panic Low,>-Panic High,A-Abnormal,AA-Critical Abnormal Performed at: [facility] [address] [place] [address] Melvin Ruelas MD, 02 [facility] [address] [place] [address] Ran Paul MD, Specimen Comment: A courtesy copy of this report has been sent to [phone], [phone]- Specimen Comment: [id number], Specimen Comment: Report sent to ,DR DAVIS / DR SMITH Performed at: 01 [facility] [address], [place], [place] [id number] MD Melvin Ruelas MD Phone: [phone]
[2020-08-21 10:48] VITALS: BP 123/78
--- NOTE | 2020-08-21 11:25 | PDOC ---
[employer] PROGRESS NOTE Date of Service DOS: DATE: 08/21/20 TIME: 11:23 Chief Complaint Chief Complaint A/P: Acute hypoxic respiratory failure requiring VENT SUPPORT STATUS post trach placement 08/06/2020 S/P Peg tube placement 08/09 Acute hypoxic respiratory failure/ARDS /pneumonia Bilateral perihilar and basilar opacities, progressed in the left base. 07-26 COVID-19 Subsegmental bilateral PE Sepsis NSTEMI AKA Lactic acidosis Hyponatremia, RESOLVED hgb 6.5 07-27, transfused 1 unit prbc's - bled on eliquis, now on heparin GTT hypokalemia, on replacement Left pleural effusion Plan: Spontaneous breathing trial today attempt to wean to extubate Appreciate pulmonology recommendations Continue current ventilatory support, currently on 70% and PEEP of 6, avoid increasing PEEP 2/2 risk of barotrauma Follow chest x-ray and ABG, vent management as per pulmonology Heparin has been transitioned to Xarelto Solu-Medrol 40 mg every 12 hours Appreciate ID recommendationscontinue Remdesivir and empiric antibiotics IV fluids Discussed with RN and JAVIER. Antibiotics per ID-- off ABX, infectious disease following increasing leukocytosis has completed full course of remdesivir continue tube feeding for nutritional support History of Present Illness History of Present Illness Mr Soni is 49-year-old male with past medical history of hypertension, who presented to the ED 07/04/2020 with complaints of worsening shortness of breath over the past 5 days prior to admit. Associated sore throat, fatigue, and generalized weakness. Patient was reportedly tested for COVID-19 prior to admit, but he had negative test results. His symptoms acutely worsened yesterday. Upon arrival to the ER his oxygen saturation was 60% on room air. He was placed on BiPAP and admitted to the ICU. Patient was subsequently intubated due to worsening respiratory failure. s/p remdesivir 07/08/2020. Tracheostomy 08/06/2020, PEG 08/09/202008/12: No acute events overnight. Patient has T-max of 99.7. Currently on minimal vent settings.> 50% time spent in patient chart, labs, and imaging review and in discussion with RN and SW 08/13: Overnight Tmax 100.6F. Tires out easily on vent. 08/14: 101.5 F overnight. Stool sample on urine sample taken today. No growth on cultures as of yet. Still requiring vent support via his trach. No residuals on tube feeds. CT chest with left loculated effusion 08/15: 100.4 F overnight. Left Thoracostomy tube inserted today. Still requiring vent support via trach. 08/16: T-max 100.8 F overnight. Still requiring vent support via trach. Chest tube w/o air leak. 08/17: T [id number] overnight. Still requiring vent support via trach. Chest tube still with output, no air leak. 08/18: T-max 100.4 F overnight. On trach collar 30 L O2 currently. Minimal chest tube output, improved. CTPA still with left pulmonary embolism. Afebrile overnight. On trach collar 30 L O2 currently. Minimal chest tube output chest radiograph appears improved pigtail catheter in good position. 08/19/2020 No acute events overnight. Patient is on a trach collar currently. Chest tube in place with minimal output. Pending pleural fluid analysis. Patient's chart, labs, images were reviewed and discussed with RN 08/20/20 No acute events overnight. Tolerating trach collar. Minimal CT output.> 50% time spent in patient chart, labs, and imaging review and in discussion with RN and JAVIER Plan: Cont eliquis Chest tube per pulm Ok to transfer to CVC on trach shield 08/11/2020 No acute events overnight. Patient with T-max of 100.8 overnight. Currently on minimal vent settings. Trached and pegged. Social work following for Medicare approval.> 50% time spent in patient chart, labs, and imaging review and in discussion with RN and JAVIER 08/10/2020 no acute events overnight. Patient is on minimal vent settings. PEG tube placed yesterday. Will attempt to wean to extubate today.> 50% time spent in patient chart, labs, and imaging review and in discussion with RN and SW 08/09/2020 No acute events overnight. T-max of 100.0 F. Patient is on minimal ventilatory settings.> 50% time spent in patient chart, labs, and imaging review and in discussion with RN and SW 08/08/2020 Patient tolerating trach and ventilatory goldy support on 40% FiO2 and 5 of PEEP. Pending PEG tube placement tomorrow.> 50% time spent in patient chart, labs, and imaging review and in discussion with RN and JAVIER 08/07/2020 No acute events overnight. Fever T-max of 101.1. Trach was placed yesterday. On minimal vent settings.> 50% time spent in patient chart, labs, and imaging review and in discussion with RN and JAVIER 08/06/2020 No acute events overnight. Patient is afebrile. Currently on minimal vent settings. Pending trach today. Patient's chart, labs, images were reviewed and discussed with RN A total of 35 minutes of critical care time was spent in reviewing chart, labs, and images. Discussed with RN and JAVIER. 08/05/2020 Patient seen and evaluated. No acute events, febrile overnight. Mechanically ventilated with FiO2 40%, PEEP 6. Plan for trach Thursday. 08/04/2020 Patient seen in [facility] ICU. Still with low-grade fevers. Mechanically ventilated, FiO2 40%, PEEP 6. No acute change, plan for trach Thursday. 08/03/2020 Patient seen in [facility]- ICU. Still with low-grade fever. He remains on vent with FiO2 100%, PEEP 12. Plan for trach on Thursday, and PEG at some point after. 08/02/2020 Patient seen and evaluated in [facility] ICU. He is febrile this morning. Still intubated mechanically ventilated with FiO2 40 %, PEEP 6. Plans for tracheostomy today. 08/01/2020 Patient seen in [facility] ICU. Patient remains slightly febrile. Mechanically ventilated, FiO2 45%, PEEP 6. Tracheostomy unable to perform yesterday, general surgery to attempt again today. Discussed with RN. 07/31/2020 Patient still spiking fevers. Patient remains on vent, FiO2 45%, PEEP 6. Tracheostomy tentatively planned for today. 07/30/2020 Patient seen in [facility]- ICU. He is febrile on vent, FiO2 45%, PEEP 6. Will attempt to speak with family about decision on trach and PEG tube. Discussed with RN. t max 102 f fio2 50% 07/21/2020 Patient no acute events reported overnight. Patient continues to require a lot of support from vent. Discussed with RN 09/19/2019 Patient continues to be pretty much the same , fio2 is at 70%, heparin 07/19/2020 Patient hypotensive today, we will follow recommendations from critical floor care specialist. Vent management as per application support consultant, no other complaints. 07/18/2020 Patient with no acute events reported overnight, fio2 is now at 75% PEEP of 6, Vent management as per pulmonary application support consultant slight increase in temperature noted over the lat 24 hours. Will continue to follow 07/17/2020 Patient with no acute events reported overnight, contineus to require an fio2 of 80%, continue with supportive measures. 07/16/2020 Patient with no acute events reported overnight, patient continues to require quite a bit of FiO2 at 80%. Vent management as per application support consultant, will place a call to family members after rounding. Discussed with RN 07/15/2020 Patient seen and examined bedside in the ICU. FiO2 80% PEEP of 6.pH 7.56, PCO2 32, PO2 56, HCO3 28. Will adjust respiratory rate accordingly to correct pH.> 50% time spent in patient chart, labs, and imaging review and in discussion with RN and JAVIER 07/14/2020 Patient seen and examined bedside. FiO2 65% and PEEP of 6 on vent. ABG: pH 7.26, PCO2 77, PO2 114, HCO3 34. We will adjust respiratory rate or tidal volume to titrate pH.> 50% time spent in patient chart, labs, and imaging review and in discussion with RN and JAVIER 07/13/2020 No acute events overnight. Patient examined bedside sedated and intubated. FiO2 70% PEEP of 6. Improved ABGs.> 50% time spent in patient chart, labs, and imaging review and in discussion with RN and JAVIER 07/12/2020 Patient seen and examined in the ICU. Sedated and intubated. FiO2 65, PEEP of 8 with improved oxygenation. pH 7.4, PCO2 48, PO2 94, HCO3 30. +500 cc fluid balance.> 50% time spent in patient chart, labs, and imaging review and in discussion with RN and JAVIER 07/11/2020 Patient seen and examined bedside in the ICU. Patient continues to be intubated and sedated. FiO2 75%, PEEP of 10. pH 7.40, PCO2 44, PO2 is 135, HCO3 26. Can likely decrease FiO2 due to improved oxygenation. +173 cc in the past 24 hours 07/10/2020 Patient seen and examined bedside in ICU. Patient is intubated and sedated. FiO2 90%, PEEP of 10, respiratory rate of 30. ABG: pH is 7.41, PCO2 42, PO2 113, HCO3 26. 07/05: Patient seen in ICU, still intubated and sedated. COVID-19 pending. Patient remains on heparin infusion. Discussed with RN, will try to have central line placed per anesthesia. 07/06: Patient seen in ICU. Still FiO2 100% on vent and sedated. COVID-19 positive. Continue heparin infusion, Zosyn, steroids. 07/07: Covid positive patient seen in ICU. On vent with FiO2 100%, PEEP 10. Continue remdesivir, steroids, Zosyn. Continue to monitor 07/08: Patient seen in Covid ICU. Still on vent with FiO2 100%, PEEP 10. Afebrile. No acute events overnight. Continue steroids, antibiotics, and remdesivir. 07/09: Patient seen and examined in the ICU. Intubated and sedated. Vent settings FiO2 90%, PEEP of 10, respiratory rate of 30. Vitals/I&O Vitals/I&O: Vital Signs Date Time Temp Pulse Resp B/P (MAP) Pulse Ox O2 Delivery O2 Flow Rate FiO2 08/21/20 10:48 97.5 91 22 123/78 (93) 97 Tracheal Collar 97.5 08/21/20 08:55 8.0 I & O 08/20/20 08/20/20 08/21/20 15:00 23:00 07:00 Intake Total 150 ml 753 ml 875 ml Output Total 1050 ml 650 ml Balance 150 ml -297 ml 225 ml Physical Exam Physical Exam: General on vent,alert HEENT normocephalic atraumatic , Neck trach present LUNGS: Clear anteriorly, left CTS HEART: S1-S2 no murmurs ABDOMEN: mildly distended, soft bowel sounds present Fernandez in place,fecal tube in place SKIN: No generalized rash Right upper extremity PICC line removed PIVs Clean Neuro alert awake General: Other (sedated ) Lungs: Clear Labs Labs: Laboratory Tests Test 08/20/20 12:57 08/20/20 16:47 08/20/20 20:03 08/21/20 00:24 Glucose (Fingerstick) 144 mg/dL (70-99) 121 mg/dL (70-99) 140 mg/dL (70-99) 134 mg/dL (70-99) Test 08/21/20 07:42 Glucose (Fingerstick) 132 mg/dL (70-99) Assessment and Plan Assessmemt and Plan Problems Medical Problems: (1) Acute respiratory failure with hypoxia Status: Acute (2) PRIYA (acute kidney injury) Status: Acute (3) Elevated troponin I level Status: Acute (4) Pulmonary emboli Status: Acute (5) Suspected COVID-19 virus infection Status: Acute Comment Review of Relevant I have reviewed the following items trino (where applicable) has been applied. Medications: Current Medications Medications (Trade) Dose Ordered Sig/Natalee Route PRN Reason Start Time Stop Time Status Last Admin Dose Admin Doxycycline Hyclate (Vibra-Tab) 100 mg BID PO 08/21/20 10:00 08/21/20 10:03 Justifications for Admission Other Justification DOROTHEA VIRK MD Aug 21, 2020 11:25
--- NOTE | 2020-08-21 13:16 | NUR ---
SS following up with discharge planning. SS reviewed pt chart and discussed with pt RN. Pt is currently on trach shield and peg tube in place. COVID19 negative. Chest tube removed yesterday. ST consulted. PT/OT recommended acute rehabilitation. Pt on IV Meropenem. Self pay. Not a citizen. SS will continue to follow for discharge planning.
[2020-08-21 15:00] VITALS: BP 119/74
--- NOTE | 2020-08-21 16:07 | PDOC ---
PULMONARY PROGRESS NOTES DATE: 08/21/20 TIME: 16:05 Subjective PT. tolerating TS well Status post tracheostomy on 08/06/2020 and S/P peg tube on 08/09 up to chair today No other concerns from nursing overnight Vitals Vital Signs Date Time Temp Pulse Resp B/P (MAP) Pulse Ox O2 Delivery O2 Flow Rate FiO2 08/21/20 15:00 97.8 82 20 119/74 (89) 98 Tracheal Collar 97.8 08/21/20 08:55 8.0 Comments General: Alert, No acute distress Lungs: Clear Cardiovascular: S1, S2 Abdomen: Soft Neuro Exam: Alert Extremities: No Edema Skin: Warm, Dry Labs Laboratory Tests Test 08/19/20 17:47 08/19/20 17:50 08/20/20 00:27 08/20/20 06:32 Glucose (Fingerstick) 146 mg/dL (70-99) 235 mg/dL (70-99) 121 mg/dL (70-99) 132 mg/dL (70-99) Test 08/20/20 12:57 08/20/20 16:47 08/20/20 20:03 08/21/20 00:24 Glucose (Fingerstick) 144 mg/dL (70-99) 121 mg/dL (70-99) 140 mg/dL (70-99) 134 mg/dL (70-99) Test 08/21/20 07:42 08/21/20 11:59 Glucose (Fingerstick) 132 mg/dL (70-99) 134 mg/dL (70-99) Laboratory Tests Test 08/20/20 16:47 08/20/20 20:03 08/21/20 00:24 08/21/20 07:42 Glucose (Fingerstick) 121 mg/dL (70-99) 140 mg/dL (70-99) 134 mg/dL (70-99) 132 mg/dL (70-99) Test 08/21/20 11:59 Glucose (Fingerstick) 134 mg/dL (70-99) Comments CXR 08/20 IMPRESSION: small left effusion, bilateral infiltrates L>R CT CHEST 08/14 1. Marked interval enlargement of left lateral effusion. This could be causing some mass effect on the mediastinum. 2. Extensive pleural-parenchymal scarring and patchy airspace opacities in the lungs compatible with the sequelae of atypical pneumonia. Electronically signed by: Gosia Li MD (08/14/2020 1:28 PM) [id number] Impression . IMPRESSION: 1. Acute hypoxemic respiratory failure./ALI/ARDS due to COVID -19, much improved. 2. Acute pulmonary embolism , still some residual PE, on Eliquis 3. COVID-19 pnemonia.now with low grade fevers, suspect VAP/ less likely empyema ( based on analysis) 5. Hypertension. 6. History of bronchitis. 7. Elevated troponin. 8. Acute kidney injury. 9. Leukocytosis. 10. Covid-[address] chest 08/14 , large left effusion, improved post chest tube left, no sig drainage or increase effusion, s/p clamp last 24 hr Plan . Continue Trach shield 8 liters Oxygen Cap trach and / PMV as tolerated will downsize in few days and try capping once secretions better Status post tracheostomy 08/06 and S/P Peg tube placement 08/09 repeat CTA chest with residual PE. f/u, dopplers neg, re started Eliquis 08/18 f/u chest x-ray as needed Follow cardiology recommendations Antibiotics per ID--AFB negative, repeat cultures negative Has completed full course of remdesivir Continue tube feeding for nutritional support PT/OT and consult speech DVT/GI prophylaxis,Protonix/eliquis Discussed with RN and RT Pt. is FULL CODE ALVIN RAMSEY MD Aug 21, 2020 16:07
--- NOTE | 2020-08-21 16:59 | RAD ---
EXAM: CT Abdomen and Pelvis without IV contrast INDICATION: Reason: Rule out obstruction or other abnormality / Spl. Instructions: / History: TECHNIQUE: Multi-detector row CT images were acquired from the lung bases through the abdomen and pel vis without the use of IV contrast. Sagittal and coronal images were acquired from the transaxial marlena a. All CT scans performed at this facility utilize dose optimization techniques as appropriate to the exam, including the following: Automated exposure control and adjustment of the mA and/or KV accordi ng to patient size (this includes techniques or standardized protocols for targeted exams where dose is indication/reason for exam). ORAL CONTRAST: None COMPARISON: 07/29/[address] FINDINGS: The absence of IV contrast limits evaluation of soft tissue pathology. LOWER CHEST: Bilateral patchy parenchymal consolidation with gas containing consolidation in the part ially imaged left upper lobe redemonstrated. Moderate left pleural effusion also noted. There is gas in this left pleural effusion newly apparent along with mild thickening of the left pleura. Interval removal of the enteric tube. LIVER: Unremarkable BILIARY SYSTEM: Gallbladder is unremarkable. Bile ducts are not dilated. PANCREAS: Unremarkable SPLEEN: Unremarkable ADRENALS: Unremarkable KIDNEYS & URETERS: Unremarkable BLADDER: Partially decompressed by an indwelling Fernandez catheter with slightly more gas in the bladde r lumen in the interval. REPRODUCTIVE ORGANS: Unremarkable GASTROINTESTINAL: Interval placement of a percutaneous gastrostomy tube in the gastric body. Scattere d colonic diverticuli. No findings of bowel obstruction, perforation or acute inflammation. A rectal tube has since been inserted. The appendix is normal. MESENTERY/PERITONEUM/RETROPERITONEUM: Unremarkable VASCULAR: Unremarkable LYMPH NODES: No adenopathy OSSEOUS & SOFT TISSUES: Stable punctate calcification in the right psoas muscle (image 53 of axial s eries 3) and right paraspinal musculature (image 39 series 3). IMPRESSION: 1. Bilateral pneumonia with interval development of gas in the left pleural effusion with pleural thi ckening, raising question of developing empyema. 2. Interval exchange of the enteric tube for a percutaneous gastrostomy tube in good position showing no evidence of bowel obstruction, perforation or acute inflammation. Bowel gas pattern is nonspecifi c but no acute findings on noncontrast CT are identified. Electronically signed by: Gosia Li MD (08/21/2020 4:56 PM) [id number]
[2020-08-21 19:30] VITALS: BP 155/81
[2020-08-21 23:46] VITALS: BP 112/72
[2020-08-22] MEDS: MEROPENEM 500 MG in IV NORMAL SALINE 50ML 50 ML IV SCH ×4 (00:29→16:31)
[2020-08-22] MEDS: fentaNYL PF VIAL 100 MCG/2 ML VIAL IVP PRN (03:47)
[2020-08-22 03:49] VITALS: BP 119/69
[2020-08-22] MEDS: INSULIN LISPRO 300 UNITS/3 ML VIAL. SQ SCH ×4 (05:15→17:23)
[2020-08-22 07:00] VITALS: BP 137/83
--- NOTE | 2020-08-22 08:41 | PDOC ---
Infectious Disease Note Subjective: Subjective Patient with trach on vent Alert awake Afebrile last 24 hours Vital Signs: Vital Signs Vital Signs Date Time Temp Pulse Resp B/P (MAP) Pulse Ox O2 Delivery O2 Flow Rate FiO2 08/22/20 07:00 98.0 70 20 137/83 (101) 99 Room Air 98.0 08/22/20 04:17 8.0 Physical Exam: PHYSICAL EXAM General on vent,alert HEENT normocephalic atraumatic , Neck trach present LUNGS: Clear anteriorly, left CTS HEART: S1-S2 no murmurs ABDOMEN: mildly distended, soft bowel sounds present Fernandez in place,fecal tube in place SKIN: No generalized rash Right upper extremity PICC line removed PIVs Clean Neuro alert awake Medications: Inpatient Meds: Current Medications Medications (Trade) Dose Ordered Sig/Natalee Start Time Stop Time Status Last Admin Dose Admin Acetaminophen (Tylenol Supp) 650 mg PRN Q6HRS PRN 08/06/20 20:45 08/07/20 19:28 650 MG Acetaminophen (Tylenol) 650 mg PRN Q6HRS PRN 07/12/20 12:00 08/18/20 21:58 650 MG Apixaban (Eliquis) 5 mg BID 08/18/20 10:00 08/21/20 20:54 5 MG Ascorbic Acid (Vitamin C) 500 mg Q6HRS 07/04/20 18:00 08/05/20 08:39 DC 08/05/20 06:07 500 MG Azithromycin (Zithromax) 500 mg 1X ONCE 07/03/20 19:15 07/03/20 19:19 DC 07/03/20 20:11 500 MG Bupivacaine HCl/ Epinephrine Bitart (Sensorcain-Epi 0.5%-[id number] Mpf) 30 ml 1X ONCE 08/06/20 06:30 08/06/20 06:31 DC 08/06/20 15:15 1 ML Cefazolin Sodium/ Dextrose 50 ml @ 100 mls/hr 1X ONCE 08/09/20 11:00 08/09/20 11:29 DC 08/09/20 11:04 100 MLS/HR Ceftriaxone Sodium (Rocephin) 1 gm 1X ONCE 07/03/20 19:15 07/03/20 19:19 DC 07/03/20 20:11 1 GM Cellulose (Surgicel Fibrillar 1x2) 1 each STK-MED ONCE 07/31/20 13:08 07/31/20 13:08 DC Cellulose (Surgicel Hemostat 4x8) 1 each STK-MED ONCE 08/06/20 14:10 08/06/20 14:11 DC Daptomycin 470 mg/ Sodium Chloride 50 ml @ 100 mls/hr Q24H 08/01/20 09:00 08/05/20 11:20 DC 08/05/20 09:24 100 MLS/HR Dexmedetomidine HCl 400 mcg/ Sodium Chloride 100 ml @ 0 mls/hr CONT PRN 08/11/20 10:00 08/17/20 11:29 4.1 MLS/HR Dextrose (Dextrose 50%-Water Syringe) 12.5 gm PRN Q15MIN PRN 08/14/20 08:00 UNV Doxycycline Hyclate (Vibra-Tab) 100 mg BID 08/21/20 10:00 08/21/20 20:54 100 MG Enoxaparin Sodium (Lovenox 150mg Syringe) 150 mg 1X ONCE 07/03/20 23:00 07/03/20 23:01 DC 07/03/20 22:45 150 MG Etomidate (Amidate) 10 mg 1X ONCE 07/04/20 09:30 07/04/20 09:31 DC 07/04/20 09:37 10 MG Fentanyl Citrate (Fentanyl 2ml Vial) 50 mcg 1X ONCE 08/15/20 14:15 08/15/20 14:18 DC 08/15/20 14:29 50 MCG Furosemide (Lasix) 20 mg 1X ONCE 07/29/20 06:30 07/29/20 06:31 DC 07/29/20 06:35 20 MG Heparin Sodium (Porcine) (Heparin Sodium) 1,250 unit PRN Q6HRS PRN 08/11/20 14:30 08/18/20 10:00 DC 08/14/20 22:56 1,250 UNIT Heparin Sodium/ Dextrose 250 ml @ 0 mls/hr CONT PRN 08/11/20 14:30 08/18/20 10:00 DC 08/18/20 00:46 26.2 MLS/HR Hydromorphone HCl (Dilaudid) 0.5 mg PRN Q10MIN PRN 08/06/20 07:00 08/07/20 06:59 DC Info (Anti-Coagulation Monitoring By Pharmacy) 1 each PRN DAILY PRN 07/16/20 08:15 08/14/20 09:40 1 EACH Info (CONTRAST GIVEN -- Rx MONITORING) 1 each PRN DAILY PRN 08/17/20 05:45 08/19/20 05:44 DC Info (Icu Electrolyte Protocol) 1 ea CONT PRN PRN 07/24/20 15:45 Insulin Human Lispro (HumaLOG) 0-7 UNITS Q6HRS 08/14/20 12:00 08/19/20 11:38 3 UNITS Iohexol (Omnipaque 350 Mg/ml) 100 ml 1X ONCE 08/17/20 05:45 08/17/20 05:46 DC 08/17/20 05:45 100 ML Lansoprazole (Prevacid) 30 mg DAILY 08/21/20 09:00 Levofloxacin/ Dextrose 150 ml @ 100 mls/hr Q24H 08/02/20 09:00 08/05/20 11:20 DC 08/05/20 07:16 100 MLS/HR Lidocaine HCl (Buffered Lidocaine 1%) 6 ml 1X ONCE 08/15/20 13:00 08/15/20 13:01 DC 08/15/20 13:07 5 ML Lidocaine HCl (Xylocaine-Mpf 1% 2ml Vial) 2 ml PRN 1X PRN 08/06/20 07:00 08/07/20 06:59 DC Linezolid (Zyvox) 600 mg BID 08/14/20 09:00 08/19/20 12:00 DC 08/19/20 08:22 600 MG Linezolid/Dextrose 300 ml @ 300 mls/hr Q12HR 07/27/20 12:30 07/31/20 07:36 DC 07/30/20 21:47 300 MLS/HR Lorazepam (Ativan Inj) 2 mg PRN Q1HR PRN 07/21/20 12:30 08/18/20 00:45 2 MG Magnesium Sulfate 100 ml @ 50 mls/hr DAILY 08/13/20 00:00 08/16/20 00:00 DC 08/15/20 08:43 50 MLS/HR Meclizine HCl (Antivert) 25 mg PRN DAILY PRN 08/12/20 23:00 Meropenem 500 mg/ Sodium Chloride 50 ml @ 100 mls/hr Q6HRS 08/14/20 09:00 08/22/20 05:15 100 MLS/HR Methylprednisolone Sodium Succinate (SOLU-Medrol 40MG VIAL) 40 mg DAILY 07/21/20 09:00 07/22/20 09:36 DC 07/22/20 09:08 40 MG Midazolam HCl (Versed) 5 mg STK-MED ONCE 07/04/20 09:21 07/04/20 09:21 DC Morphine Sulfate (Morphine Sulfate) 1 mg PRN Q10MIN PRN 08/06/20 07:00 08/07/20 06:59 DC Multi-Ingred Cream/Lotion/Oil/ Oint (Artificial Tears Eye Ointment) 1 wenceslao PRN Q1HR PRN 07/18/20 10:45 07/27/20 17:19 1 WENCESLAO Norepinephrine Bitartrate 8 mg/ Dextrose 258 ml @ 16.061 mls/ hr CONT PRN 07/04/20 13:15 07/18/20 11:01 DC 07/05/20 00:33 28.909 MLS/HR Ondansetron HCl (Zofran) 4 mg PRN Q6HRS PRN 08/06/20 07:00 08/07/20 06:59 DC Pantoprazole Sodium (PROTONIX VIAL for IV PUSH) 40 mg DAILYAC 07/04/20 12:30 08/20/20 10:25 DC 08/20/20 10:29 40 MG Piperacillin Sod/ Tazobactam Sod (Zosyn Per Pharmacy) 1 each PRN DAILY PRN 07/04/20 12:00 07/18/20 07:46 DC Piperacillin Sod/ Tazobactam Sod 3.375 gm/Sodium Chloride 50 ml @ 100 mls/hr Q6HRS 07/04/20 12:00 07/17/20 11:11 DC 07/17/20 05:10 100 MLS/HR Piperacillin Sod/ Tazobactam Sod 4.5 gm/Sodium Chloride 100 ml @ 200 mls/hr Q6HRS 07/24/20 12:00 07/26/20 10:53 DC 07/26/20 05:36 200 MLS/HR Potassium Bicarbonate (Potassium Effervescent Tablet) 40 meq 1X ONCE 08/15/20 09:45 08/15/20 09:46 DC 08/15/20 10:25 40 MEQ Potassium Chloride/Water 100 ml @ 100 mls/hr Q1H 08/13/20 13:00 08/13/20 16:59 DC 08/13/20 18:10 100 MLS/HR Potassium Phosphate 13.6 mmol/Sodium Chloride 254.5333 ml @ 62.5 mls/hr Q4H 07/24/20 15:30 07/25/20 03:29 UNV Prochlorperazine Edisylate (Compazine) 10 mg PRN Q6HRS PRN 08/12/20 21:30 08/19/20 13:34 10 MG Propofol 100 ml @ 0 mls/hr CONT PRN 07/04/20 09:15 08/11/20 06:42 14.9 MLS/HR Remdesivir 100 mg/ Sodium Chloride 230 ml @ 460 mls/hr Q24H 07/07/20 14:30 07/10/20 14:59 DC 07/10/20 13:59 460 MLS/HR Remdesivir 200 mg/ Sodium Chloride 210 ml @ 210 mls/hr 1X ONCE 07/06/20 14:30 07/06/20 15:29 DC 07/06/20 14:51 210 MLS/HR Ringer's Solution 1,000 ml @ 30 mls/hr Q24H 08/09/20 06:00 08/09/20 17:59 DC 08/09/20 06:11 30 MLS/HR Rocuronium [place] (Zemuron) 50 mg STK-MED ONCE 08/06/20 15:19 08/06/20 15:19 DC Sevoflurane (Ultane) 30 ml STK-MED ONCE 08/06/20 15:18 08/06/20 15:19 DC Sodium Chloride 1,000 ml @ 100 mls/hr Q10H 08/07/20 12:00 08/12/20 10:50 DC 08/11/20 16:30 100 MLS/HR Sodium Phosphate 20 mmol/Sodium Chloride 256.6667 ml @ 62.5 mls/hr 1X ONCE 07/24/20 15:30 07/24/20 19:36 UNV Sodium Phosphate 30 mmol/Sodium Chloride 260 ml @ 62.5 mls/hr 1X ONCE 07/24/20 15:30 07/24/20 19:39 UNV Succinylcholine Chloride (Anectine) 200 mg 1X ONCE 07/04/20 09:30 07/04/20 09:31 DC 07/04/20 09:38 200 MG Throat Lozenges (Cepacol Sore Throat Lozenge) 1 lety PRN Q2HRS PRN 07/04/20 01:15 Vancomycin HCl (Vanco Per Pharmacy) 1 each PRN DAILY PRN 08/11/20 13:30 08/14/20 08:03 DC 08/13/20 15:09 1 EACH Vancomycin HCl (Vancomycin Trough Level) 1 each 1X ONCE 08/13/20 14:30 08/13/20 14:31 DC Vancomycin HCl 1.25 gm/Sodium Chloride 250 ml @ 167 mls/hr Q8H 07/25/20 15:00 07/26/20 07:31 DC 07/25/20 22:44 167 MLS/HR Vancomycin HCl 1.5 gm/Sodium Chloride 500 ml @ 250 mls/hr Q8H 08/11/20 23:00 08/12/20 15:13 DC 08/12/20 14:49 250 MLS/HR Vancomycin HCl 1.75 gm/Sodium Chloride 500 ml @ 250 mls/hr Q8H 08/12/20 23:00 08/14/20 08:01 DC 08/14/20 07:04 250 MLS/HR Vancomycin HCl 2 gm/Sodium Chloride 500 ml @ 250 mls/hr 1X ONCE 07/25/20 07:00 07/25/20 08:59 DC 07/25/20 07:06 250 MLS/HR Vecuronium [place] 50 mg/ Miscellaneous 50 ml @ 4.094 mls/ hr CONT PRN 07/12/20 14:45 07/22/20 09:34 DC 07/18/20 01:56 7.5 MLS/HR Vecuronium [place] (Norcuron Bolus) 6 mg PRN Q6HRS PRN 07/28/20 23:00 08/09/20 15:05 6 MG Vitamin D (Vitamin D3) 5,000 unit DAILY 07/05/20 09:00 08/21/20 10:00 5,000 UNIT Zinc Sulfate (Orazinc) 220 mg DAILY 07/05/20 09:00 08/21/20 10:00 220 MG Labs: Lab Laboratory Tests Test 08/21/20 11:59 08/21/20 17:58 08/22/20 00:58 08/22/20 06:45 Glucose (Fingerstick) 134 mg/dL (70-99) 123 mg/dL (70-99) 113 mg/dL (70-99) 116 mg/dL (70-99) Objective: Assessment: Left pleural effusion status post CTS August 15 Left thoracocentesis with CTS pH 7.73, cell count, glucose, protein .ldh noted, cult neg Fevers Source ?? Leukocytosis improved COVID-19 positive. Status post remdesivir, steroids Acute hypoxic respiratory failure/ARDS /pneumonia H/O Bilateral pulmonary emboli. Hypertension. Bacteremia 07/23 1/2 bottles staph hominis likely contaminant Repeat blood cultures staph capitis likely contaminant Repeat BC 08/06 staph pettenkori likely contaminant Enterobacter UTI and pneumonia Treated Plan: Plan of Care Cont Merrem 08/14 Continue doxy PICC line removed C. difficile negative 08/14 f/u cults negative so far tracheal aspirate for afb stain and cultures negative so far Check acute hepatitis panel HIV negative CT abdomen and pelvis without D/W JAMI LUCAS MD Aug 22, 2020 08:41
[2020-08-22] MEDS: APIXABAN 5 MG TABLET. PO SCH ×2 (09:00→22:07)
[2020-08-22] MEDS: DOXYCYCLINE HYCLATE 100 MG TABLET PO SCH ×2 (09:09→22:07)
[2020-08-22] MEDS: CHOLECALCIFEROL (VITAMIN D3) 5,000 UNIT CAPSULE PO SCH (09:10)
[2020-08-22] MEDS: LANSOPRAZOLE 30 MG TAB.RAP.DR FT SCH (09:10)
[2020-08-22] MEDS: ZINC SULFATE 220 MG CAPSULE. PO SCH (09:10)
[2020-08-22 11:00] VITALS: BP 126/78
--- NOTE | 2020-08-22 13:00 | PDOC ---
PULMONARY PROGRESS NOTES DATE: 08/22/20 TIME: 12:36 Subjective Patient remains on trach shield Status post tracheostomy on 08/06/2020 and S/P peg tube on 08/09 up to chair today No other concerns from nursing overnight Vitals Vital Signs Date Time Temp Pulse Resp B/P (MAP) Pulse Ox O2 Delivery O2 Flow Rate FiO2 08/22/20 11:00 98.1 86 14 126/78 (94) 94 Room Air 98.1 08/22/20 08:00 8.0 Comments ROS: No Nausea, No Chest Pain, No Abdominal Pain, No Increase Cough General: Alert, No acute distress Lungs: Clear Cardiovascular: S1, S2 Abdomen: Soft Neuro Exam: Alert, Oriented Extremities: No Edema Skin: Warm, Dry Labs Laboratory Tests Test 08/20/20 12:57 08/20/20 16:47 08/20/20 20:03 08/21/20 00:24 Glucose (Fingerstick) 144 mg/dL (70-99) 121 mg/dL (70-99) 140 mg/dL (70-99) 134 mg/dL (70-99) Test 08/21/20 05:34 08/21/20 07:42 08/21/20 11:59 08/21/20 17:58 Glucose (Fingerstick) 132 mg/dL (70-99) 132 mg/dL (70-99) 134 mg/dL (70-99) 123 mg/dL (70-99) Test 08/22/20 00:58 08/22/20 06:45 08/22/20 11:32 Glucose (Fingerstick) 113 mg/dL (70-99) 116 mg/dL (70-99) 132 mg/dL (70-99) Laboratory Tests Test 08/21/20 17:58 08/22/20 00:58 08/22/20 06:45 08/22/20 11:32 Glucose (Fingerstick) 123 mg/dL (70-99) 113 mg/dL (70-99) 116 mg/dL (70-99) 132 mg/dL (70-99) Comments CXR 08/20 IMPRESSION: small left effusion, bilateral infiltrates L>R CT CHEST 08/14 1. Marked interval enlargement of left lateral effusion. This could be causing some mass effect on the mediastinum. 2. Extensive pleural-parenchymal scarring and patchy airspace opacities in the lungs compatible with the sequelae of atypical pneumonia. Electronically signed by: Gosia Li MD (08/14/2020 1:28 PM) [id number] Impression . IMPRESSION: 1. Acute hypoxemic respiratory failure./ALI/ARDS due to COVID -19, much improved. 2. Acute pulmonary embolism , still some residual PE, on Eliquis 3. COVID-19 pnemonia.now with low grade fevers, suspect VAP/ less likely empyema ( based on analysis) 5. Hypertension. 6. History of bronchitis. 7. Elevated troponin. 8. Acute kidney injury. 9. Leukocytosis. 10. Covid-[address] chest 08/14 , large left effusion, improved post chest tube left, no sig drainage or increase effusion, Plan . Continue Trach shield 8 liters Oxygen Cap trach and / PMV as tolerated will downsize in few days and try capping once secretions better Status post tracheostomy 08/06 and S/P Peg tube placement 08/09 repeat CTA chest with residual PE. f/u, dopplers neg, re started Eliquis 08/18 f/u chest x-ray as needed Follow cardiology recommendations Antibiotics per ID--AFB negative, repeat cultures negative Has completed full course of remdesivir Continue tube feeding for nutritional support PT/OT and consult speech --failed swallow study remains n.p.o. DVT/GI prophylaxis,Protonix/eliquis Discussed with RN and RT Pt. is FULL CODE ALVIN RAMSEY MD Aug 22, 2020 13:00
--- NOTE | 2020-08-22 13:57 | PDOC ---
[employer] PROGRESS NOTE Date of Service DOS: DATE: 08/22/20 TIME: 13:56 Chief Complaint Chief Complaint A/P: Acute hypoxic respiratory failure requiring VENT SUPPORT STATUS post trach placement 08/06/2020 S/P Peg tube placement 08/09 Acute hypoxic respiratory failure/ARDS /pneumonia Bilateral perihilar and basilar opacities, progressed in the left base. 07-26 COVID-19 Subsegmental bilateral PE Sepsis NSTEMI AKA Lactic acidosis Hyponatremia, RESOLVED hgb 6.5 07-27, transfused 1 unit prbc's - bled on eliquis, now on heparin GTT hypokalemia, on replacement Left pleural effusion Plan: Spontaneous breathing trial today attempt to wean to extubate Appreciate pulmonology recommendations Continue current ventilatory support, currently on 70% and PEEP of 6, avoid increasing PEEP 2/2 risk of barotrauma Follow chest x-ray and ABG, vent management as per pulmonology Heparin has been transitioned to Xarelto Solu-Medrol 40 mg every 12 hours Appreciate ID recommendationscontinue Remdesivir and empiric antibiotics IV fluids Discussed with RN and JAVIER. Antibiotics per ID-- off ABX, infectious disease following increasing leukocytosis has completed full course of remdesivir continue tube feeding for nutritional support History of Present Illness History of Present Illness Mr Soni is 49-year-old male with past medical history of hypertension, who presented to the ED 07/04/2020 with complaints of worsening shortness of breath over the past 5 days prior to admit. Associated sore throat, fatigue, and generalized weakness. Patient was reportedly tested for COVID-19 prior to admit, but he had negative test results. His symptoms acutely worsened yesterday. Upon arrival to the ER his oxygen saturation was 60% on room air. He was placed on BiPAP and admitted to the ICU. Patient was subsequently intubated due to worsening respiratory failure. s/p remdesivir 07/08/2020. Tracheostomy 08/06/2020, PEG 08/09/202008/12: No acute events overnight. Patient has T-max of 99.7. Currently on minimal vent settings.> 50% time spent in patient chart, labs, and imaging review and in discussion with RN and SW 08/13: Overnight Tmax 100.6F. Tires out easily on vent. 08/14: 101.5 F overnight. Stool sample on urine sample taken today. No growth on cultures as of yet. Still requiring vent support via his trach. No residuals on tube feeds. CT chest with left loculated effusion 08/15: 100.4 F overnight. Left Thoracostomy tube inserted today. Still requiring vent support via trach. 08/16: T-max 100.8 F overnight. Still requiring vent support via trach. Chest tube w/o air leak. 08/17: T [id number] overnight. Still requiring vent support via trach. Chest tube still with output, no air leak. 08/18: T-max 100.4 F overnight. On trach collar 30 L O2 currently. Minimal chest tube output, improved. CTPA still with left pulmonary embolism. Afebrile overnight. On trach collar 30 L O2 currently. Minimal chest tube output chest radiograph appears improved pigtail catheter in good position. 08/19/2020 No acute events overnight. Patient is on a trach collar currently. Chest tube in place with minimal output. Pending pleural fluid analysis. Patient's chart, labs, images were reviewed and discussed with RN 08/20/20 No acute events overnight. Tolerating trach collar. Minimal CT output.> 50% time spent in patient chart, labs, and imaging review and in discussion with RN and SW 08/22/2020 No acute events overnight. Patient seen and examined in next recliner. Currently on trach collar and saturating well.> 50% time spent in patient chart, labs, and imaging review and in discussion with RN and JAVIER Plan: Cont eliquis Chest tube per pulm Ok to transfer to CVC on trach shield 08/11/2020 No acute events overnight. Patient with T-max of 100.8 overnight. Currently on minimal vent settings. Trached and pegged. Social work following for Medicare approval.> 50% time spent in patient chart, labs, and imaging review and in discussion with RN and SW 08/10/2020 no acute events overnight. Patient is on minimal vent settings. PEG tube placed yesterday. Will attempt to wean to extubate today.> 50% time spent in patient chart, labs, and imaging review and in discussion with RN and JAVIER 08/09/2020 No acute events overnight. T-max of 100.0 F. Patient is on minimal ventilatory settings.> 50% time spent in patient chart, labs, and imaging review and in discussion with RN and JAVIER 08/08/2020 Patient tolerating trach and ventilatory goldy support on 40% FiO2 and 5 of PEEP. Pending PEG tube placement tomorrow.> 50% time spent in patient chart, labs, and imaging review and in discussion with RN and JAVIER 08/07/2020 No acute events overnight. Fever T-max of 101.1. Trach was placed yesterday. On minimal vent settings.> 50% time spent in patient chart, labs, and imaging review and in discussion with RN and JAVIER 08/06/2020 No acute events overnight. Patient is afebrile. Currently on minimal vent settings. Pending trach today. Patient's chart, labs, images were reviewed and discussed with RN A total of 35 minutes of critical care time was spent in reviewing chart, labs, and images. Discussed with RN and JAVIER. 08/05/2020 Patient seen and evaluated. No acute events, febrile overnight. Mechanically ventilated with FiO2 40%, PEEP 6. Plan for trach Thursday. 08/04/2020 Patient seen in [facility] ICU. Still with low-grade fevers. Mechanically ventilated, FiO2 40%, PEEP 6. No acute change, plan for trach Thursday. 08/03/2020 Patient seen in [facility]- ICU. Still with low-grade fever. He remains on vent with FiO2 100%, PEEP 12. Plan for trach on Thursday, and PEG at some point after. 08/02/2020 Patient seen and evaluated in [facility] ICU. He is febrile this morning. Still intubated mechanically ventilated with FiO2 40 %, PEEP 6. Plans for tracheostomy today. 08/01/2020 Patient seen in [facility] ICU. Patient remains slightly febrile. Mechanically ventilated, FiO2 45%, PEEP 6. Tracheostomy unable to perform yesterday, general surgery to attempt again today. Discussed with RN. 07/31/2020 Patient still spiking fevers. Patient remains on vent, FiO2 45%, PEEP 6. Tracheostomy tentatively planned for today. 07/30/2020 Patient seen in [facility]- ICU. He is febrile on vent, FiO2 45%, PEEP 6. Will attempt to speak with family about decision on trach and PEG tube. Discussed with RN. t max 102 f fio2 50% 07/21/2020 Patient no acute events reported overnight. Patient continues to require a lot of support from vent. Discussed with RN 09/19/2019 Patient continues to be pretty much the same , fio2 is at 70%, heparin 07/19/2020 Patient hypotensive today, we will follow recommendations from critical administrator health care facility. Vent management as per window covering sales consultant, no other complaints. 07/18/2020 Patient with no acute events reported overnight, fio2 is now at 75% PEEP of 6, Vent management as per pulmonary window covering sales consultant slight increase in temperature noted over the lat 24 hours. Will continue to follow 07/17/2020 Patient with no acute events reported overnight, contineus to require an fio2 of 80%, continue with supportive measures. 07/16/2020 Patient with no acute events reported overnight, patient continues to require quite a bit of FiO2 at 80%. Vent management as per window covering sales consultant, will place a call to family members after rounding. Discussed with RN 07/15/2020 Patient seen and examined bedside in the ICU. FiO2 80% PEEP of 6.pH 7.56, PCO2 32, PO2 56, HCO3 28. Will adjust respiratory rate accordingly to correct pH.> 50% time spent in patient chart, labs, and imaging review and in discussion with RN and JAVIER 07/14/2020 Patient seen and examined bedside. FiO2 65% and PEEP of 6 on vent. ABG: pH 7.26, PCO2 77, PO2 114, HCO3 34. We will adjust respiratory rate or tidal volume to titrate pH.> 50% time spent in patient chart, labs, and imaging review and in discussion with RN and JAVIER 07/13/2020 No acute events overnight. Patient examined bedside sedated and intubated. FiO2 70% PEEP of 6. Improved ABGs.> 50% time spent in patient chart, labs, and imaging review and in discussion with RN and JAVIER 07/12/2020 Patient seen and examined in the ICU. Sedated and intubated. FiO2 65, PEEP of 8 with improved oxygenation. pH 7.4, PCO2 48, PO2 94, HCO3 30. +500 cc fluid balance.> 50% time spent in patient chart, labs, and imaging review and in discussion with RN and JAVIER 07/11/2020 Patient seen and examined bedside in the ICU. Patient continues to be intubated and sedated. FiO2 75%, PEEP of 10. pH 7.40, PCO2 44, PO2 is 135, HCO3 26. Can likely decrease FiO2 due to improved oxygenation. +173 cc in the past 24 hours 07/10/2020 Patient seen and examined bedside in ICU. Patient is intubated and sedated. FiO2 90%, PEEP of 10, respiratory rate of 30. ABG: pH is 7.41, PCO2 42, PO2 113, HCO3 26. 07/05: Patient seen in ICU, still intubated and sedated. COVID-19 pending. Patient remains on heparin infusion. Discussed with RN, will try to have central line placed per anesthesia. 07/06: Patient seen in ICU. Still FiO2 100% on vent and sedated. COVID-19 positive. Continue heparin infusion, Zosyn, steroids. 07/07: Covid positive patient seen in ICU. On vent with FiO2 100%, PEEP 10. Continue remdesivir, steroids, Zosyn. Continue to monitor 07/08: Patient seen in [facility] ICU. Still on vent with FiO2 100%, PEEP 10. Afebrile. No acute events overnight. Continue steroids, antibiotics, and remdesivir. 07/09: Patient seen and examined in the ICU. Intubated and sedated. Vent settings FiO2 90%, PEEP of 10, respiratory rate of 30. Vitals/I&O Vitals/I&O: Vital Signs Date Time Temp Pulse Resp B/P (MAP) Pulse Ox O2 Delivery O2 Flow Rate FiO2 08/22/20 11:00 98.1 86 14 126/78 (94) 94 Room Air 98.1 08/22/20 08:00 8.0 I & O 08/21/20 08/21/20 08/22/20 15:00 23:00 07:00 Intake Total 100 ml 100 ml 750 ml Output Total 1000 ml 1700 ml 850 ml Balance -900 ml -1600 ml -100 ml Physical Exam Physical Exam: General on vent,alert HEENT normocephalic atraumatic , Neck trach present LUNGS: Clear anteriorly, left CTS HEART: S1-S2 no murmurs ABDOMEN: mildly distended, soft bowel sounds present Fernandez in place,fecal tube in place SKIN: No generalized rash Right upper extremity PICC line removed PIVs Clean Neuro alert awake General: Alert, No acute distress, Other (sedated ) Heart: Regular rate, No murmurs Lungs: Clear Extremities: No clubbing Skin: No significant lesion Labs Labs: Laboratory Tests Test 08/21/20 17:58 08/22/20 00:58 08/22/20 06:45 08/22/20 11:32 Glucose (Fingerstick) 123 mg/dL (70-99) 113 mg/dL (70-99) 116 mg/dL (70-99) 132 mg/dL (70-99) Assessment and Plan Assessmemt and Plan Problems Medical Problems: (1) Acute respiratory failure with hypoxia Status: Acute (2) PRIYA (acute kidney injury) Status: Acute (3) Elevated troponin I level Status: Acute (4) Pulmonary emboli Status: Acute (5) Suspected COVID-19 virus infection Status: Acute Comment Review of Relevant I have reviewed the following items trino (where applicable) has been applied. Justifications for Admission Other Justification DOROTHEA VIRK MD Aug 22, 2020 13:57
--- NOTE | 2020-08-22 14:05 | NUR ---
SS following up with discharge planning. SS reviewed pt chart and discussed with pt RN. Pt is currently on trach shield and peg tube in place. COVID19 negative. ST consulted. PT/OT recommended acute rehabilitation. Pt on IV Meropenem. Self pay. Not a citizen. SS will continue to follow for discharge planning.
[2020-08-22 15:00] VITALS: BP 122/74
[2020-08-22 22:56] VITALS: BP 130/75
[2020-08-23] MEDS: MEROPENEM 500 MG in IV NORMAL SALINE 50ML 50 ML IV SCH ×2 (00:14→05:54)
[2020-08-23 03:00] VITALS: BP 135/73
[2020-08-23] MEDS: INSULIN LISPRO 300 UNITS/3 ML VIAL. SQ SCH ×5 (06:00→23:27)
[2020-08-23 07:00] VITALS: BP 146/79
--- NOTE | 2020-08-23 10:02 | NUR ---
SS following up with discharge planning. SS reviewed pt chart and discussed with pt RN. Pt has trach and peg. COVID19 negative. Pt on IV Meropenem. PT/OT recommended acute rehabilitation. Pt is self pay and not a citizen. SS will continue to follow for discharge planning.
[2020-08-23] MEDS: ZINC SULFATE 220 MG CAPSULE. PO SCH (10:13)
[2020-08-23] MEDS: APIXABAN 5 MG TABLET. PO SCH ×2 (10:14→22:44)
[2020-08-23] MEDS: DOXYCYCLINE HYCLATE 100 MG TABLET PO SCH ×2 (10:14→22:44)
[2020-08-23] MEDS: CHOLECALCIFEROL (VITAMIN D3) 5,000 UNIT CAPSULE PO SCH (10:14)
[2020-08-23] MEDS: LANSOPRAZOLE 30 MG TAB.RAP.DR FT SCH (10:14)
--- NOTE | 2020-08-23 10:54 | PDOC ---
Infectious Disease Note Subjective: Subjective Patient with trach on vent Alert awake Afebrile last 24 hours Vital Signs: Vital Signs Vital Signs Date Time Temp Pulse Resp B/P (MAP) Pulse Ox O2 Delivery O2 Flow Rate FiO2 08/23/20 07:00 98.4 78 20 146/79 (101) 98 Tracheal Collar 8.0 98.4 Physical Exam: PHYSICAL EXAM General on vent,alert HEENT normocephalic atraumatic , Neck trach present LUNGS: Clear anteriorly, left CTS HEART: S1-S2 no murmurs ABDOMEN: mildly distended, soft bowel sounds present Fernandez in place,fecal tube in place SKIN: No generalized rash Right upper extremity PICC line removed PIVs Clean Neuro alert awake Medications: Inpatient Meds: Current Medications Medications (Trade) Dose Ordered Sig/Natalee Start Time Stop Time Status Last Admin Dose Admin Acetaminophen (Tylenol Supp) 650 mg PRN Q6HRS PRN 08/06/20 20:45 08/07/20 19:28 650 MG Acetaminophen (Tylenol) 650 mg PRN Q6HRS PRN 07/12/20 12:00 08/18/20 21:58 650 MG Apixaban (Eliquis) 5 mg BID 08/18/20 10:00 08/23/20 10:14 5 MG Ascorbic Acid (Vitamin C) 500 mg Q6HRS 07/04/20 18:00 08/05/20 08:39 DC 08/05/20 06:07 500 MG Azithromycin (Zithromax) 500 mg 1X ONCE 07/03/20 19:15 07/03/20 19:19 DC 07/03/20 20:11 500 MG Bupivacaine HCl/ Epinephrine Bitart (Sensorcain-Epi 0.5%-1:730999 Mpf) 30 ml 1X ONCE 08/06/20 06:30 08/06/20 06:31 DC 08/06/20 15:15 1 ML Cefazolin Sodium/ Dextrose 50 ml @ 100 mls/hr 1X ONCE 08/09/20 11:00 08/09/20 11:29 DC 08/09/20 11:04 100 MLS/HR Ceftriaxone Sodium (Rocephin) 1 gm 1X ONCE 07/03/20 19:15 07/03/20 19:19 DC 07/03/20 20:11 1 GM Cellulose (Surgicel Fibrillar 1x2) 1 each STK-MED ONCE 07/31/20 13:08 07/31/20 13:08 DC Cellulose (Surgicel Hemostat 4x8) 1 each STK-MED ONCE 08/06/20 14:10 08/06/20 14:11 DC Daptomycin 470 mg/ Sodium Chloride 50 ml @ 100 mls/hr Q24H 08/01/20 09:00 08/05/20 11:20 DC 08/05/20 09:24 100 MLS/HR Dexmedetomidine HCl 400 mcg/ Sodium Chloride 100 ml @ 0 mls/hr CONT PRN 08/11/20 10:00 08/17/20 11:29 4.1 MLS/HR Dextrose (Dextrose 50%-Water Syringe) 12.5 gm PRN Q15MIN PRN 08/14/20 08:00 UNV Doxycycline Hyclate (Vibra-Tab) 100 mg BID 08/21/20 10:00 08/23/20 10:14 100 MG Enoxaparin Sodium (Lovenox 150mg Syringe) 150 mg 1X ONCE 07/03/20 23:00 07/03/20 23:01 DC 07/03/20 22:45 150 MG Etomidate (Amidate) 10 mg 1X ONCE 07/04/20 09:30 07/04/20 09:31 DC 07/04/20 09:37 10 MG Fentanyl Citrate (Fentanyl 2ml Vial) 50 mcg 1X ONCE 08/15/20 14:15 08/15/20 14:18 DC 08/15/20 14:29 50 MCG Furosemide (Lasix) 20 mg 1X ONCE 07/29/20 06:30 07/29/20 06:31 DC 07/29/20 06:35 20 MG Heparin Sodium (Porcine) (Heparin Sodium) 1,250 unit PRN Q6HRS PRN 08/11/20 14:30 08/18/20 10:00 DC 08/14/20 22:56 1,250 UNIT Heparin Sodium/ Dextrose 250 ml @ 0 mls/hr CONT PRN 08/11/20 14:30 08/18/20 10:00 DC 08/18/20 00:46 26.2 MLS/HR Hydromorphone HCl (Dilaudid) 0.5 mg PRN Q10MIN PRN 08/06/20 07:00 08/07/20 06:59 DC Info (Anti-Coagulation Monitoring By Pharmacy) 1 each PRN DAILY PRN 07/16/20 08:15 08/14/20 09:40 1 EACH Info (CONTRAST GIVEN -- Rx MONITORING) 1 each PRN DAILY PRN 08/17/20 05:45 08/19/20 05:44 DC Info (Icu Electrolyte Protocol) 1 ea CONT PRN PRN 07/24/20 15:45 Insulin Human Lispro (HumaLOG) 0-7 UNITS Q6HRS 08/14/20 12:00 08/19/20 11:38 3 UNITS Iohexol (Omnipaque 350 Mg/ml) 100 ml 1X ONCE 08/17/20 05:45 08/17/20 05:46 DC 08/17/20 05:45 100 ML Lansoprazole (Prevacid) 30 mg DAILY 08/21/20 09:00 08/23/20 10:14 30 MG Levofloxacin/ Dextrose 150 ml @ 100 mls/hr Q24H 08/02/20 09:00 08/05/20 11:20 DC 08/05/20 07:16 100 MLS/HR Lidocaine HCl (Buffered Lidocaine 1%) 6 ml 1X ONCE 08/15/20 13:00 08/15/20 13:01 DC 08/15/20 13:07 5 ML Lidocaine HCl (Xylocaine-Mpf 1% 2ml Vial) 2 ml PRN 1X PRN 08/06/20 07:00 08/07/20 06:59 DC Linezolid (Zyvox) 600 mg BID 08/14/20 09:00 08/19/20 12:00 DC 08/19/20 08:22 600 MG Linezolid/Dextrose 300 ml @ 300 mls/hr Q12HR 07/27/20 12:30 07/31/20 07:36 DC 07/30/20 21:47 300 MLS/HR Lorazepam (Ativan Inj) 2 mg PRN Q1HR PRN 07/21/20 12:30 08/18/20 00:45 2 MG Magnesium Sulfate 100 ml @ 50 mls/hr DAILY 08/13/20 00:00 08/16/20 00:00 DC 08/15/20 08:43 50 MLS/HR Meclizine HCl (Antivert) 25 mg PRN DAILY PRN 08/12/20 23:00 Meropenem 500 mg/ Sodium Chloride 50 ml @ 100 mls/hr Q6HRS 08/14/20 09:00 08/23/20 05:54 100 MLS/HR Methylprednisolone Sodium Succinate (SOLU-Medrol 40MG VIAL) 40 mg DAILY 07/21/20 09:00 07/22/20 09:36 DC 07/22/20 09:08 40 MG Midazolam HCl (Versed) 5 mg STK-MED ONCE 07/04/20 09:21 07/04/20 09:21 DC Morphine Sulfate (Morphine Sulfate) 1 mg PRN Q10MIN PRN 08/06/20 07:00 08/07/20 06:59 DC Multi-Ingred Cream/Lotion/Oil/ Oint (Artificial Tears Eye Ointment) 1 wenceslao PRN Q1HR PRN 07/18/20 10:45 07/27/20 17:19 1 WENCESLAO Norepinephrine Bitartrate 8 mg/ Dextrose 258 ml @ 16.061 mls/ hr CONT PRN 07/04/20 13:15 07/18/20 11:01 DC 07/05/20 00:33 28.909 MLS/HR Ondansetron HCl (Zofran) 4 mg PRN Q6HRS PRN 08/06/20 07:00 08/07/20 06:59 DC Pantoprazole Sodium (PROTONIX VIAL for IV PUSH) 40 mg DAILYAC 07/04/20 12:30 08/20/20 10:25 DC 08/20/20 10:29 40 MG Piperacillin Sod/ Tazobactam Sod (Zosyn Per Pharmacy) 1 each PRN DAILY PRN 07/04/20 12:00 07/18/20 07:46 DC Piperacillin Sod/ Tazobactam Sod 3.375 gm/Sodium Chloride 50 ml @ 100 mls/hr Q6HRS 07/04/20 12:00 07/17/20 11:11 DC 07/17/20 05:10 100 MLS/HR Piperacillin Sod/ Tazobactam Sod 4.5 gm/Sodium Chloride 100 ml @ 200 mls/hr Q6HRS 07/24/20 12:00 07/26/20 10:53 DC 07/26/20 05:36 200 MLS/HR Potassium Bicarbonate (Potassium Effervescent Tablet) 40 meq 1X ONCE 08/15/20 09:45 08/15/20 09:46 DC 08/15/20 10:25 40 MEQ Potassium Chloride/Water 100 ml @ 100 mls/hr Q1H 08/13/20 13:00 08/13/20 16:59 DC 08/13/20 18:10 100 MLS/HR Potassium Phosphate 13.6 mmol/Sodium Chloride 254.5333 ml @ 62.5 mls/hr Q4H 07/24/20 15:30 07/25/20 03:29 UNV Prochlorperazine Edisylate (Compazine) 10 mg PRN Q6HRS PRN 08/12/20 21:30 08/19/20 13:34 10 MG Propofol 100 ml @ 0 mls/hr CONT PRN 07/04/20 09:15 08/11/20 06:42 14.9 MLS/HR Remdesivir 100 mg/ Sodium Chloride 230 ml @ 460 mls/hr Q24H 07/07/20 14:30 07/10/20 14:59 DC 07/10/20 13:59 460 MLS/HR Remdesivir 200 mg/ Sodium Chloride 210 ml @ 210 mls/hr 1X ONCE 07/06/20 14:30 07/06/20 15:29 DC 07/06/20 14:51 210 MLS/HR Ringer's Solution 1,000 ml @ 30 mls/hr Q24H 08/09/20 06:00 08/09/20 17:59 DC 08/09/20 06:11 30 MLS/HR Rocuronium Jermyn (Zemuron) 50 mg STK-MED ONCE 08/06/20 15:19 08/06/20 15:19 DC Sevoflurane (Ultane) 30 ml STK-MED ONCE 08/06/20 15:18 08/06/20 15:19 DC Sodium Chloride 1,000 ml @ 100 mls/hr Q10H 08/07/20 12:00 08/12/20 10:50 DC 08/11/20 16:30 100 MLS/HR Sodium Phosphate 20 mmol/Sodium Chloride 256.6667 ml @ 62.5 mls/hr 1X ONCE 07/24/20 15:30 07/24/20 19:36 UNV Sodium Phosphate 30 mmol/Sodium Chloride 260 ml @ 62.5 mls/hr 1X ONCE 07/24/20 15:30 12/1/20 19:39 UNV Succinylcholine Chloride (Anectine) 200 mg 1X ONCE 07/04/20 09:30 07/04/20 09:31 DC 07/04/20 09:38 200 MG Throat Lozenges (Cepacol Sore Throat Lozenge) 1 lety PRN Q2HRS PRN 07/04/20 01:15 Vancomycin HCl (Vanco Per Pharmacy) 1 each PRN DAILY PRN 08/11/20 13:30 08/14/20 08:03 DC 08/13/20 15:09 1 EACH Vancomycin HCl (Vancomycin Trough Level) 1 each 1X ONCE 08/13/20 14:30 08/13/20 14:31 DC Vancomycin HCl 1.25 gm/Sodium Chloride 250 ml @ 167 mls/hr Q8H 07/25/20 15:00 07/26/20 07:31 DC 07/25/20 22:44 167 MLS/HR Vancomycin HCl 1.5 gm/Sodium Chloride 500 ml @ 250 mls/hr Q8H 08/11/20 23:00 08/12/20 15:13 DC 08/12/20 14:49 250 MLS/HR Vancomycin HCl 1.75 gm/Sodium Chloride 500 ml @ 250 mls/hr Q8H 08/12/20 23:00 08/14/20 08:01 DC 08/14/20 07:04 250 MLS/HR Vancomycin HCl 2 gm/Sodium Chloride 500 ml @ 250 mls/hr 1X ONCE 07/25/20 07:00 07/25/20 08:59 DC 07/25/20 07:06 250 MLS/HR Vecuronium Jermyn 50 mg/ Miscellaneous 50 ml @ 4.094 mls/ hr CONT PRN 07/12/20 14:45 07/22/20 09:34 DC 07/18/20 01:56 7.5 MLS/HR Vecuronium Jermyn (Norcuron Bolus) 6 mg PRN Q6HRS PRN 07/28/20 23:00 08/09/20 15:05 6 MG Vitamin D (Vitamin D3) 5,000 unit DAILY 07/05/20 09:00 08/23/20 10:14 5,000 UNIT Zinc Sulfate (Orazinc) 220 mg DAILY 07/05/20 09:00 08/23/20 10:13 220 MG Labs: Lab Laboratory Tests Test 08/22/20 11:32 08/22/20 17:16 08/23/20 00:16 08/23/20 05:58 Glucose (Fingerstick) 132 mg/dL (70-99) 130 mg/dL (70-99) 89 mg/dL (70-99) 125 mg/dL (70-99) Objective: Assessment: Left pleural effusion status post CTS August 15 Left thoracocentesis with CTS pH 7.73, cell count, glucose, protein .ldh noted, cult neg Fevers Source ?? Leukocytosis improved COVID-19 positive. Status post remdesivir, steroids Acute hypoxic respiratory failure/ARDS /pneumonia H/O Bilateral pulmonary emboli. Hypertension. Bacteremia 07/23 08/25 bottles staph hominis likely contaminant Repeat blood cultures staph capitis likely contaminant Repeat BC 08/06 staph pettenkori likely contaminant Enterobacter UTI and pneumonia Treated Plan: Plan of Care DC Merrem,start augmentin Continue doxy PICC line removed C. difficile negative 08/14 f/u cults negative so far tracheal aspirate for afb stain and cultures negative so far f/u acute hepatitis panel HIV negative CT chest abdomen and pelvis reviewed, Lt base changes present pulm team following D/W JAMI LUCAS MD Aug 23, 2020 10:54
[2020-08-23 11:00] VITALS: BP 149/95
[2020-08-23] MEDS: ANTI-COAG MONITOR BY PHARMACY. MC PRN (12:57)
--- NOTE | 2020-08-23 13:54 | PDOC ---
PULMONARY PROGRESS NOTES DATE: 08/23/20 TIME: 13:53 Subjective Patient remains on trach shield doing well No other concerns from nursing overnight Vitals Vital Signs Date Time Temp Pulse Resp B/P (MAP) Pulse Ox O2 Delivery O2 Flow Rate FiO2 08/23/20 11:00 97.4 80 28 149/95 (113) 98 Tracheal Collar 8.0 97.4 Comments ROS: No Nausea, No Chest Pain, No Abdominal Pain, No Increase Cough General: Alert, No acute distress Lungs: Clear Cardiovascular: S1, S2 Abdomen: Soft Neuro Exam: Alert, Oriented Extremities: No Edema Skin: Warm, Dry Labs Laboratory Tests Test 08/21/20 17:58 08/22/20 00:58 08/22/20 06:45 08/22/20 11:32 Glucose (Fingerstick) 123 mg/dL (70-99) 113 mg/dL (70-99) 116 mg/dL (70-99) 132 mg/dL (70-99) Test 08/22/20 17:16 08/23/20 00:16 08/23/20 05:58 08/23/20 09:12 Glucose (Fingerstick) 130 mg/dL (70-99) 89 mg/dL (70-99) 125 mg/dL (70-99) Hepatitis A IgM Antibody Nonreactive (Nonreactive) Hepatitis B Surface Antigen Nonreactive (Nonreactive) Hepatitis B Core IgM Antibody Nonreactive (Nonreactive) Hepatitis C IgG Antibody Nonreactive (Nonreactive) Test 08/23/20 11:48 Glucose (Fingerstick) 140 mg/dL (70-99) Laboratory Tests Test 08/22/20 17:16 08/23/20 00:16 08/23/20 05:58 08/23/20 09:12 Glucose (Fingerstick) 130 mg/dL (70-99) 89 mg/dL (70-99) 125 mg/dL (70-99) Hepatitis A IgM Antibody Nonreactive (Nonreactive) Hepatitis B Surface Antigen Nonreactive (Nonreactive) Hepatitis B Core IgM Antibody Nonreactive (Nonreactive) Hepatitis C IgG Antibody Nonreactive (Nonreactive) Test 08/23/20 11:48 Glucose (Fingerstick) 140 mg/dL (70-99) Comments CXR 08/20 IMPRESSION: small left effusion, bilateral infiltrates L>R CT CHEST 08/14 1. Marked interval enlargement of left lateral effusion. This could be causing some mass effect on the mediastinum. 2. Extensive pleural-parenchymal scarring and patchy airspace opacities in the lungs compatible with the sequelae of atypical pneumonia. Electronically signed by: Gosia Li MD (08/14/2020 1:28 PM) [id number] Impression . IMPRESSION: 1. Acute hypoxemic respiratory failure./ALI/ARDS due to COVID -19, much improved. 2. Acute pulmonary embolism , still some residual PE, on Eliquis 3. COVID-19 pnemonia.now with low grade fevers, suspect VAP/ less likely empyema ( based on analysis) 5. Hypertension. 6. History of bronchitis. 7. Elevated troponin. 8. Acute kidney injury. 9. Leukocytosis. 10. Covid-[address] chest 08/14 , large left effusion, improved post chest tube left, no sig drainage or increase effusion, Plan . Continue Trach shield 8 liters Oxygen Cap trach and / PMV as tolerated will downsize in few days and try capping once secretions better Status post tracheostomy 08/06 and S/P Peg tube placement 08/09 repeat CTA chest with residual PE. f/u, dopplers neg, re started Eliquis 08/18 f/u chest x-ray as needed Follow cardiology recommendations Antibiotics per ID--AFB negative, repeat cultures negative, now on po ABX Has completed full course of remdesivir Continue tube feeding for nutritional support PT/OT and consult speech --failed swallow study remains n.p.o. DVT/GI prophylaxis,Protonix/eliquis Discussed with RN and RT Pt. is FULL CODE ALVIN RAMSEY MD Aug 23, 2020 13:54
[2020-08-23 14:59] VITALS: BP 126/72
[2020-08-23 18:51] VITALS: BP 116/68
[2020-08-23] MEDS: AMOXICILLIN/K CLAV 875/125MG TABLET. PO SCH (22:44)
[2020-08-23 23:00] VITALS: BP 109/66
[2020-08-24 03:25] VITALS: BP 117/68
[2020-08-24] MEDS: INSULIN LISPRO 300 UNITS/3 ML VIAL. SQ SCH ×3 (06:00→16:44)
[2020-08-24 07:02] VITALS: BP 114/68
[2020-08-24] MEDS: ANTI-COAG MONITOR BY PHARMACY. MC PRN (07:52)
[2020-08-24] MEDS: DOXYCYCLINE HYCLATE 100 MG TABLET PO SCH ×2 (08:59→21:22)
[2020-08-24] MEDS: APIXABAN 5 MG TABLET. PO SCH ×2 (08:59→21:22)
[2020-08-24] MEDS: ZINC SULFATE 220 MG CAPSULE. PO SCH (08:59)
[2020-08-24] MEDS: LANSOPRAZOLE 30 MG TAB.RAP.DR FT SCH (08:59)
[2020-08-24] MEDS: CHOLECALCIFEROL (VITAMIN D3) 5,000 UNIT CAPSULE PO SCH (08:59)
[2020-08-24] MEDS: ACETAMINOPHEN 650 MG/20.3 ML SOLUTION. PEG PRN (08:59)
[2020-08-24] MEDS: AMOXICILLIN/K CLAV 875/125MG TABLET. PO SCH ×2 (08:59→21:22)
--- NOTE | 2020-08-24 10:29 | PDOC ---
PROGRESS NOTES Date of Service: DATE: 08/24/20 TIME: 10:28 Chief Complaint Chief Complaint IMPRESSION Acute hypoxic respiratory failure requiring VENT SUPPORT STATUS post trach placement 08/06/2020 // Patient remains on trach shield Patient remains on trach shield with PMV No other concerns from nursing overnight S/P Peg tube placement 08/09 Acute hypoxic respiratory failure/ARDS /pneumonia Bilateral perihilar and basilar opacities, progressed in the left base. 07-26 COVID-19 Subsegmental bilateral PE Sepsis NSTEMI AKA Lactic acidosis Hyponatremia, RESOLVED hgb 6.5 07-27, transfused 1 unit prbc's - bled on eliquis, now on heparin GTT hypokalemia, on replacement Left pleural effusion interval development of gas in the left pleural effusion with pleural thickening, raising question of developing empyema. Repeat BC 08/06 staph pettenkori likely contaminant Enterobacter UTI and pneumonia Treated tracheal aspirate for afb stain and cultures negative so far f/u acute hepatitis panel HIV negative CT chest abdomen and pelvis reviewed, Lt base changes present pulm team following Plan: Appreciate pulmonology INPUT Heparin has been transitioned to Xarelto Appreciate ID recommendationscontinue Remdesivir and empiric antibiotics IV fluids Discussed with RN Antibiotics per ID-- off ABX, infectious disease following increasing leukocytosis has completed full course of remdesivir continue tube feeding for nutritional support tracheal aspirate for afb stain and cultures negative so far f/u acute hepatitis panel HIV negative CT chest abdomen and pelvis reviewed, Lt base changes present pulm team following tracheal aspirate for afb stain and cultures negative so far f/u acute hepatitis panel HIV negative CT chest abdomen and pelvis reviewed, Lt base changes present pulm team following 28 MIN PT EXAM, CHART REVIEW, > 50% OF TIME SPENT WITH EXAM, CHART REVIEW, PT CARE COORDINATION History of Present Illness History of Present Illness Mr Soni is 49-year-old male with past medical history of hypertens ion, who presented to the ED 07/04/2020 with complaints of worsening shortness of breath over the past 5 days prior to admit. Associated sore throat, fatigue, and generalized weakness. Patient was reportedly tested for COVID-19 prior to admit, but he had negative test results. His symptoms acutely worsened yesterday. Upon arrival to the ER his oxygen saturation was 60% on room air. He was placed on BiPAP and admitted to the ICU. Patient was subsequently intubated due to worsening respiratory failure. s/p remdesivir 07/08/2020. Tracheostomy 08/06/2020, PEG 08/09/202008/12: No acute events overnight. Patient has T-max of 99.7. Currently on minimal vent settings.> 50% time spent in patient chart, labs, and imaging review and in discussion with RN and SW 08/13: Overnight Tmax 100.6F. Tires out easily on vent. 08/14: 101.5 F overnight. Stool sample on urine sample taken today. No growth on cultures as of yet. Still requiring vent support via his trach. No residuals on tube feeds. CT chest with left loculated effusion 08/15: 100.4 F overnight. Left Thoracostomy tube inserted today. Still requiring vent support via trach. 08/16: T-max 100.8 F overnight. Still requiring vent support via trach. Chest tube w/o air leak. 08/17: T [id number] overnight. Still requiring vent support via trach. Chest tube still with output, no air leak. 08/18: T-max 100.4 F overnight. On trach collar 30 L O2 currently. Minimal chest tube output, improved. CTPA still with left pulmonary embolism. Afebrile overnight. On trach collar 30 L O2 currently. Minimal chest tube output chest radiograph appears improved pigtail catheter in good position. 08/19/2020 No acute events overnight. Patient is on a trach collar currently. Chest tube in place with minimal output. Pending pleural fluid analysis. Patient's chart, labs, images were reviewed and discussed with RN 08/20/20 No acute events overnight. Tolerating trach collar. Minimal CT output.> 50% time spent in patient chart, labs, and imaging review and in discussion with RN and JAVIER 08/22/2020 No acute events overnight. Patient seen and examined in next recliner. Currently on trach collar and saturating well.> 50% time spent in patient chart, labs, and imaging review and in discussion with RN and JAVIER Plan: Cont eliquis Chest tube per pulm Ok to transfer to CVC on trach shield 08/11/2020 No acute events overnight. Patient with T-max of 100.8 overnight. Currently on minimal vent settings. Trached and pegged. Social work following for Medicare approval.> 50% time spent in patient chart, labs, and imaging review and in discussion with RN and SW 08/10/2020 no acute events overnight. Patient is on minimal vent settings. PEG tube placed yesterday. Will attempt to wean to extubate today.> 50% time spent in patient chart, labs, and imaging review and in discussion with RN and SW 08/09/2020 No acute events overnight. T-max of 100.0 F. Patient is on minimal ventilatory settings.> 50% time spent in patient chart, labs, and imaging review and in discussion with RN and SW 08/08/2020 Patient tolerating trach and ventilatory goldy support on 40% FiO2 and 5 of PEEP. Pending PEG tube placement tomorrow.> 50% time spent in patient chart, labs, and imaging review and in discussion with RN and SW 08/07/2020 No acute events overnight. Fever T-max of 101.1. Trach was placed yesterday. On minimal vent settings.> 50% time spent in patient chart, labs, and imaging review and in discussion with RN and SW 08/06/2020 No acute events overnight. Patient is afebrile. Currently on minimal vent settings. Pending trach today. Patient's chart, labs, images were reviewed and discussed with RN A total of 35 minutes of critical care time was spent in reviewing chart, labs, and images. Discussed with RN and SW. 08/05/2020 Patient seen and evaluated. No acute events, febrile overnight. Mechanically ventilated with FiO2 40%, PEEP 6. Plan for trach Thursday. 08/04/2020 Patient seen in [facility] ICU. Still with low-grade fevers. Mechanically ventilated, FiO2 40%, PEEP 6. No acute change, plan for trach Thursday. 08/03/2020 Patient seen in [facility] ICU. Still with low-grade fever. He remains on vent with FiO2 100%, PEEP 12. Plan for trach on Thursday, and PEG at some point after. 08/02/2020 [facility] He is febrile this morning. Still intubated mechanically ventilated with FiO2 40 %, PEEP 6. Plans for tracheostomy today. 08/01/2020 Patient seen in [facility] ICU. Patient remains slightly febrile. Mechanically ventilated, FiO2 45%, PEEP 6. Tracheostomy unable to perform yesterday, general surgery to attempt again today. Discussed with RN. 07/31/2020 Patient still spiking fevers. Patient remains on vent, FiO2 45%, PEEP 6. Tracheostomy tentatively planned for today. 07/30/2020 Patient seen in [place] [id number] ICU. He is febrile on vent, FiO2 45%, PEEP 6. Will attempt to speak with family about decision on trach and PEG tube. Discussed with RN. t max 102 f fio2 50% 07/21/2020 Patient no acute events reported overnight. Patient continues to require a lot of support from vent. Discussed with RN 09/19/2019 Patient continues to be pretty much the same , fio2 is at 70%, heparin 07/19/2020 Patient hypotensive today, we will follow recommendations from critical inspector health care facilities. Vent management as per [employer] consultant, no other complaints. 07/18/2020 Patient with no acute events reported overnight, fio2 is now at 75% PEEP of 6, Vent management as per pulmonary [employer] consultant slight increase in temperature noted over the lat 24 hours. Will continue to follow 07/17/2020 Patient with no acute events reported overnight, contineus to require an fio2 of 80%, continue with supportive measures. 07/16/2020 Patient with no acute events reported overnight, patient continues to require qu ite a bit of FiO2 at 80%. Vent management as per [employer] consultant, will place a call to family members after rounding. Discussed with RN 07/15/2020 Patient seen and examined bedside in the ICU. FiO2 80% PEEP of 6.pH 7.56, PCO2 32, PO2 56, HCO3 28. Will adjust respiratory rate accordingly to correct pH.> 50% time spent in patient chart, labs, and imaging review and in discussion with RN and JAVIER 07/14/2020 Patient seen and examined bedside. FiO2 65% and PEEP of 6 on vent. ABG: pH 7.26, PCO2 77, PO2 114, HCO3 34. We will adjust respiratory rate or tidal volume to titrate pH.> 50% time spent in patient chart, labs, and imaging review and in discussion with RN and JAVIER 07/13/2020 No acute events overnight. Patient examined bedside sedated and intubated. FiO2 70% PEEP of 6. Improved ABGs.> 50% time spent in patient chart, labs, and imaging review and in discussion with RN and JAVIER 07/12/2020 Patient seen and examined in the ICU. Sedated and intubated. FiO2 65, PEEP of 8 with improved oxygenation. pH 7.4, PCO2 48, PO2 94, HCO3 30. +500 cc fluid balance.> 50% time spent in patient chart, labs, and imaging review and in discussion with RN and JAVIER 07/11/2020 Patient seen and examined bedside in the ICU. Patient continues to be intubated and sedated. FiO2 75%, PEEP of 10. pH 7.40, PCO2 44, PO2 is 135, HCO3 26. Can likely decrease FiO2 due to improved oxygenation. +173 cc in the past 24 hours 07/10/2020 Patient seen and examined bedside in ICU. Patient is intubated and sedated. FiO2 90%, PEEP of 10, respiratory rate of 30. ABG: pH is 7.41, PCO2 42, PO2 113, HCO3 26. 07/05: Patient seen in ICU, still intubated and sedated. COVID-19 pending. Patient remains on heparin infusion. Discussed with RN, will try to have central line placed per anesthesia. 07/06: Patient seen in ICU. Still FiO2 100% on vent and sedated. COVID-19 positive. Continue heparin infusion, Zosyn, steroids. 07/07: Covid positive patient seen in ICU. On vent with FiO2 100%, PEEP 10. Continue remdesivir, steroids, Zosyn. Continue to monitor 07/08: Patient seen in Covid ICU. Still on vent with FiO2 100%, PEEP 10. Afebrile. No acute events overnight. Continue steroids, antibiotics, and remdesivir. 07/09: Patient seen and examined in the ICU. Intubated and sedated. Vent settings FiO2 90%, PEEP of 10, respiratory rate of 30. Vitals Vitals Vital Signs Date Time Temp Pulse Resp B/P (MAP) Pulse Ox O2 Delivery O2 Flow Rate FiO2 08/24/20 07:02 98.1 74 20 114/68 (83) 98 Tracheal Collar 8.0 98.1 Physical Exam Physical Exam General on vent,alert HEENT normocephalic atraumatic , Neck trach present LUNGS: Clear anteriorly, left CTS HEART: S1-S2 no murmurs ABDOMEN: mildly distended, soft bowel sounds present Fernandez in place,fecal tube in place SKIN: No generalized rash Right upper extremity PICC line removed PIVs Clean Neuro alert awake General: Alert, No acute distress, Other (sedated ) Heart: Regular rate, No murmurs Lungs: Clear Extremities: No clubbing Skin: No significant lesion Labs LABS EXAM: CT Abdomen and Pelvis without IV contrast INDICATION: Reason: Rule out obstruction or other abnormality / Spl. Instructions: / History: TECHNIQUE: Multi-detector row CT images were acquired from the lung bases through the abdomen and pelvis without the use of IV contrast. Sagittal and coronal images were acquired from the transaxial data. All CT scans performed at this facility utilize dose optimization techniques as appropriate to the exam, including the following: Automated exposure control and adjustment of the mA and/or KV according to patient size (this includes techniques or standardized protocols for targeted exams where dose is indication/reason for exam). ORAL CONTRAST: None COMPARISON: 07/29/[address] FINDINGS: The absence of IV contrast limits evaluation of soft tissue pathology. LOWER CHEST: Bilateral patchy parenchymal consolidation with gas containing consolidation in the partially imaged left upper lobe redemonstrated. Moderate left pleural effusion also noted. There is gas in this left pleural effusion newly apparent along with mild thickening of the left pleura. Interval removal of the enteric tube. LIVER: Unremarkable BILIARY SYSTEM: Gallbladder is unremarkable. Bile ducts are not dilated. PANCREAS: Unremarkable SPLEEN: Unremarkable ADRENALS: Unremarkable KIDNEYS & URETERS: Unremarkable BLADDER: Partially decompressed by an indwelling Fernandez catheter with slightly more gas in the bladder lumen in the interval. REPRODUCTIVE ORGANS: Unremarkable GASTROINTESTINAL: Interval placement of a percutaneous gastrostomy tube in the gastric body. Scattered colonic diverticuli. No findings of bowel obstruction, perforation or acute inflammation. A rectal tube has since been inserted. The appendix is normal. MESENTERY/PERITONEUM/RETROPERITONEUM: Unremarkable VASCULAR: Unremarkable LYMPH NODES: No adenopathy OSSEOUS & SOFT TISSUES: Stable punctate calcification in the right psoas muscle (image 53 of axial series 3) and right paraspinal musculature (image 39 series 3). IMPRESSION: 1. Bilateral pneumonia with interval development of gas in the left pleural effusion with pleural thickening, raising question of developing empyema. 2. Interval exchange of the enteric tube for a percutaneous gastrostomy tube in good position showing no evidence of bowel obstruction, perforation or acute inflammation. Bowel gas pattern is nonspecific but no acute findings on noncontrast CT are identified. Electronically signed by: Gosia Li MD (08/21/2020 4:56 PM) [id number] Laboratory Tests Test 08/23/20 11:48 08/23/20 17:57 08/23/20 23:25 08/24/20 06:34 Glucose (Fingerstick) 140 mg/dL (70-99) 135 mg/dL (70-99) 113 mg/dL (70-99) 116 mg/dL (70-99) Assessment and Plan Assessmemt and Plan Problems Medical Problems: (1) Acute respiratory failure with hypoxia Status: Acute (2) PRIYA (acute kidney injury) Status: Acute (3) Elevated troponin I level Status: Acute (4) Pulmonary emboli Status: Acute (5) Suspected COVID-19 virus infection Status: Acute Comment Review of Relevant I have reviewed the following items trino (where applicable) has been applied. Labs Laboratory Tests Test 08/22/20 11:32 08/22/20 17:16 08/23/20 00:16 08/23/20 05:58 Glucose (Fingerstick) 132 mg/dL (70-99) 130 mg/dL (70-99) 89 mg/dL (70-99) 125 mg/dL (70-99) Test 08/23/20 09:12 08/23/20 11:48 08/23/20 17:57 08/23/20 23:25 Hepatitis A IgM Antibody Nonreactive (Nonreactive) Hepatitis B Surface Antigen Nonreactive (Nonreactive) Hepatitis B Core IgM Antibody Nonreactive (Nonreactive) Hepatitis C IgG Antibody Nonreactive (Nonreactive) Glucose (Fingerstick) 140 mg/dL (70-99) 135 mg/dL (70-99) 113 mg/dL (70-99) Test 08/24/20 06:34 Glucose (Fingerstick) 116 mg/dL (70-99) Laboratory Tests Test 08/23/20 11:48 08/23/20 17:57 08/23/20 23:25 08/24/20 06:34 Glucose (Fingerstick) 140 mg/dL (70-99) 135 mg/dL (70-99) 113 mg/dL (70-99) 116 mg/dL (70-99) Microbiology 08/15/20 Gram Stain - Final, Complete 08/15/20 Aerobic and Anaerobic Culture - Final, Complete 08/14/20 Urine Culture - Final, Complete 08/06/20 Blood Culture - Final, Complete 08/06/20 Antimicrobic Susceptibility - Final, Complete 08/04/20 AFB Specimen Processing Tissue - Final, Resulted 08/04/20 Acid Fast Bacilli Culture, Resulted Pending 08/04/20 Gram Stain - Final, Resulted 07/29/20 Gram Stain Evaluation - Final, Complete 07/29/20 Respiratory Culture - Final, Complete 07/29/20 Antimicrobic Susceptibility - Final, Complete Medications Current Medications Ceftriaxone Sodium (Rocephin) 1 gm 1X ONCE IVP Last administered on 07/03/20at 20:11; Start 07/03/20 at 19:15; Stop 07/03/20 at 19:19; Status DC Azithromycin (Zithromax) 500 mg 1X ONCE PO Last administered on 07/03/20at 20:11; Start 07/03/20 at 19:15; Stop 07/03/20 at 19:19; Status DC Sodium Chloride 1,000 ml @ 1,000 mls/hr 1X ONCE IV Last administered on 07/03/20at 20:11; Start 07/03/20 at 19:15; Stop 07/03/20 at 20:14; Status DC Sodium Chloride 1,000 ml @ 1,000 mls/hr 1X ONCE IV Last administered on 07/03/20at 19:15; Start 07/03/20 at 19:15; Stop 07/03/20 at 20:14; Status DC Iohexol (Omnipaque 350 Mg/ml) 90 ml 1X ONCE IV Last administered on 07/03/20at 21:00; Start 07/03/20 at 20:45; Stop 07/03/20 at 20:46; Status DC Info (CONTRAST GIVEN -- Rx MONITORING) 1 each PRN DAILY PRN MC SEE COMMENTS; Start 07/03/20 at 20:45; Stop 07/05/20 at 20:44; Status DC Enoxaparin Sodium (Lovenox 150mg Syringe) 150 mg 1X ONCE SQ Last administered on 07/03/20at 22:45; Start 07/03/20 at 23:00; Stop 07/03/20 at 23:01; Status DC Ondansetron HCl (Zofran) 4 mg PRN Q8HRS PRN IV NAUSEA/VOMITING 1ST CHOICE; Start 07/03/20 at 22:30; Stop 07/04/20 at 22:29; Status DC Morphine Sulfate (Morphine Sulfate) 2 mg PRN Q2HR PRN IV SEVERE PAIN 7-10; Start 07/03/20 at 22:30; Stop 07/04/20 at 22:29; Status DC Sodium Chloride 1,000 ml @ 100 mls/hr Q10H IV Last administered on 07/05/20at 00:35; Start 07/03/20 at 23:00; Stop 07/04/20 at 22:59; Status DC Acetaminophen (Tylenol) 650 mg PRN Q4HRS PRN PO FEVER > 100.3'F; Start 07/03/20 at 22:30; Stop 07/04/20 at 22:29; Status DC Throat Lozenges (Cepacol Sore Throat Lozenge) 1 lety PRN Q2HRS PRN PO SORE THROAT; Start 07/04/20 at 01:15 Furosemide (Lasix) 20 mg 1X ONCE IVP Last administered on 07/04/20at 10:10; Start 07/04/20 at 10:00; Stop 07/04/20 at 10:01; Status DC Succinylcholine Chloride (Anectine) 200 mg STK-MED ONCE .ROUTE ; Start 07/04/20 at 09:09; Stop 07/04/20 at 09:09; Status DC Etomidate (Amidate) 20 mg STK-MED ONCE IV ; Start 07/04/20 at 09:09; Stop 07/04/20 at 09:09; Status DC Fentanyl Citrate 30 ml @ 0 mls/hr CONT PRN IV SEE PROTOCOL Last administered on 07/04/20at 09:36; Start 07/04/20 at 09:15; Stop 07/04/20 at 14:36; Status DC Propofol 100 ml @ 0 mls/hr CONT PRN IV SEE PROTOCOL Last administered on 08/11/20at 06:42; Start 07/04/20 at 09:15; Stop 08/24/20 at 07:49; Status DC Midazolam HCl 100 ml @ 0 mls/hr CONT PRN IV SEE PROTOCOL Last administered on 08/10/20at 23:19; Start 07/04/20 at 09:15; Stop 08/24/20 at 07:49; Status DC Midazolam HCl (Versed) 5 mg 1X STAT IV Last administered on 07/04/20at 09:41; Start 07/04/20 at 09:21; Stop 07/04/20 at 09:22; Status DC Midazolam HCl (Versed) 5 mg STK-MED ONCE .ROUTE ; Start 07/04/20 at 09:21; Stop 07/04/20 at 09:21; Status DC Etomidate (Amidate) 10 mg 1X ONCE IV Last administered on 07/04/20at 09:37; Start 07/04/20 at 09:30; Stop 07/04/20 at 09:31; Status DC Succinylcholine Chloride (Anectine) 200 mg 1X ONCE IV Last administered on 07/04/20at 09:38; Start 07/04/20 at 09:30; Stop 07/04/20 at 09:31; Status DC Vecuronium [place] (Norcuron Bolus) 6 mg 1X ONCE IV Last administered on 07/04/20at 09:38; Start 07/04/20 at 09:45; Stop 07/04/20 at 09:46; Status DC Vecuronium [place] (Norcuron Bolus) 10 mg STK-MED ONCE IV ; Start 07/04/20 at 09:33; Stop 07/04/20 at 09:33; Status DC Pantoprazole Sodium (PROTONIX VIAL for IV PUSH) 40 mg DAILYAC IVP Last administered on 08/20/20at 10:29; Start 07/04/20 at 12:30; Stop 08/20/20 at 10:25; Status DC Methylprednisolone Sodium Succinate (SOLU-Medrol 40MG VIAL) 40 mg Q8HRS IV Last administered on 07/11/20at 05:41; Start 07/04/20 at 14:00; Stop 07/11/20 at 11:36; Status DC Piperacillin Sod/ Tazobactam Sod (Zosyn Per Pharmacy) 1 each PRN DAILY PRN MC SEE COMMENTS; Start 07/04/20 at 12:00; Stop 07/18/20 at 07:46; Status DC Heparin Sodium/ Dextrose 250 ml @ 0 mls/hr CONT PRN IV PER PROTOCOL Last administered on 07/15/20at 02:09; Start 07/04/20 at 12:00; Stop 07/16/20 at 12:09; Status DC Heparin Sodium (Porcine) (Heparin Sodium) 2,500 unit PRN Q6HRS PRN IV FOR UFH LEVEL LESS THAN 0.2 Last administered on 07/15/20at 09:19; Start 07/04/20 at 12:00; Stop 07/16/20 at 12:09; Status DC Heparin Sodium (Porcine) (Heparin Sodium) 1,250 unit PRN Q6HRS PRN IV FOR UFH LEVEL 0.2 - 0.29 Last administered on 07/05/20at 18:27; Start 07/04/20 at 12:00; Stop 07/16/20 at 12:09; Status DC Piperacillin Sod/ Tazobactam Sod 3.375 gm/Sodium Chloride 50 ml @ 100 mls/hr Q6HRS IV Last administered on 07/17/20at 05:10; Start 07/04/20 at 12:00; Stop 07/17/20 at 11:11; Status DC Zinc Sulfate (Orazinc) 220 mg DAILY PO Last administered on 08/24/20at 08:59; Start 07/05/20 at 09:00 Ascorbic Acid (Vitamin C) 500 mg Q6HRS PO Last administered on 08/05/20at 06:07; Start 07/04/20 at 18:00; Stop 08/05/20 at 08:39; Status DC Vitamin D (Vitamin D3) 5,000 unit DAILY PO Last administered on 08/24/20at 08:59; Start 07/05/20 at 09:00 Vecuronium [place] (Norcuron Bolus) 6 mg 1X ONCE IV Last administered on 07/04/20at 13:27; Start 07/04/20 at 13:15; Stop 07/04/20 at 13:16; Status DC Norepinephrine Bitartrate 8 mg/ Dextrose 258 ml @ 16.061 mls/ hr CONT PRN IV PER PROTOCOL Last administered on 07/05/20at 00:33; Start 07/04/20 at 13:15; Stop 07/18/20 at 11:01; Status DC Fentanyl Citrate 55 ml @ 0 mls/hr CONT PRN IV SEE PROTOCOL Last administered on 08/11/20at 00:01; Start 07/04/20 at 14:45; Stop 08/24/20 at 07:50; Status DC Vecuronium [place] (Norcuron Bolus) 6 mg Q4H PRN IV OVERBREATHING VENT/out of sync Last administered on 07/20/20at 12:32; Start 07/04/20 at 16:45; Stop 07/22/20 at 09:34; Status DC Furosemide (Lasix) 40 mg 1X ONCE IVP Last administered on 07/05/20at 14:17; Start 07/05/20 at 13:30; Stop 07/05/20 at 13:31; Status DC Insulin Human Lispro (HumaLOG) 0-5 UNITS Q6HRS SQ Last administered on 07/11/20at 05:42; Start 07/05/20 at 18:00; Stop 07/11/20 at 07:54; Status DC Dextrose (Dextrose 50%-Water Syringe) 12.5 gm PRN Q15MIN PRN IV SEE COMMENTS; Start 07/05/20 at 14:15 Insulin Human Lispro (HumaLOG) 2 units 1X ONCE SQ Last administered on 07/05/20at 14:19; Start 07/05/20 at 14:30; Stop 07/05/20 at 14:31; Status DC Remdesivir 200 mg/ Sodium Chloride 210 ml @ 210 mls/hr 1X ONCE IV Last administered on 07/06/20at 14:51; Start 07/06/20 at 14:30; Stop 07/06/20 at 15:29; Status DC Remdesivir 100 mg/ Sodium Chloride 230 ml @ 460 mls/hr Q24H IV Last administered on 07/10/20at 13:59; Start 07/07/20 at 14:30; Stop 07/10/20 at 14:59; Status DC Insulin Human Lispro (HumaLOG) 0-9 UNITS TIDWMEALS SQ Last administered on 07/12/20at 11:31; Start 07/11/20 at 08:00; Stop 07/13/20 at 10:17; Status DC Methylprednisolone Sodium Succinate (SOLU-Medrol 40MG VIAL) 40 mg DAILY IV Last administered on 07/14/20at 07:57; Start 07/12/20 at 09:00; Stop 07/14/20 at 09:26; Status DC Acetaminophen (Tylenol) 650 mg PRN Q6HRS PRN PEG MILD PAIN / TEMP > 100.3'F Last administered on 08/24/20at 08:59; Start 07/12/20 at 12:00 Vecuronium [place] 50 mg/ Miscellaneous 50 ml @ 4.094 mls/ hr CONT PRN IV SEE I/O RECORD Last administered on 07/18/20at 01:56; Start 07/12/20 at 14:45; Stop 07/22/20 at 09:34; Status DC Insulin Human Lispro (HumaLOG) 0-9 UNITS Q6HRS SQ Last administered on 07/25/20at 11:49; Start 07/13/20 at 12:00; Stop 07/27/20 at 10:41; Status DC Methylprednisolone Sodium Succinate (SOLU-Medrol 40MG VIAL) 40 mg Q12HR IV Last administered on 07/16/20at 09:57; Start 07/14/20 at 21:00; Stop 07/16/20 at 12:10; Status DC Info (Anti-Coagulation Monitoring By Pharmacy) 1 each PRN DAILY PRN MC SEE COMMENTS Last administered on 08/24/20at 07:52; Start 07/16/20 at 08:15 Apixaban (Eliquis) 10 mg BID PO Last administered on 07/22/20at 20:39; Start 07/16/20 at 13:00; Stop 07/22/20 at 21:01; Status DC Methylprednisolone Sodium Succinate (SOLU-Medrol 40MG VIAL) 40 mg DAILY IV Last administered on 07/16/20at 12:22; Start 07/16/20 at 13:00; Stop 07/17/20 at 08:24; Status DC Apixaban (Eliquis) 5 mg BID PO Last administered on 07/26/20at 20:31; Start 07/23/20 at 09:00; Stop 07/27/20 at 12:19; Status DC Methylprednisolone Sodium Succinate (SOLU-Medrol 40MG VIAL) 40 mg Q12HR IV Last administered on 07/20/20at 07:54; Start 07/17/20 at 09:00; Stop 07/20/20 at 10:20; Status DC Multi-Ingred Cream/Lotion/Oil/ Oint (Artificial Tears Eye Ointment) 1 wenceslao PRN Q1HR PRN OU DRY EYE Last administered on 07/27/20at 17:19; Start 07/18/20 at 10:45 Furosemide (Lasix) 40 mg 1X ONCE IVP Last administered on 07/19/20at 00:55; Start 07/19/20 at 00:45; Stop 07/19/20 at 00:46; Status DC Methylprednisolone Sodium Succinate (SOLU-Medrol 40MG VIAL) 40 mg DAILY IV Last administered on 07/22/20at 09:08; Start 07/21/20 at 09:00; Stop 07/22/20 at 09:36; Status DC Lorazepam (Ativan Inj) 2 mg PRN Q1HR PRN IV SEE COMMENTS Last administered on 08/18/20at 00:45; Start 07/21/20 at 12:30 Vecuronium [place] (Norcuron Bolus) 6 mg PRN Q6HRS PRN IV SEDATION Last administered on 07/22/20at 12:02; Start 07/22/20 at 12:00; Stop 07/26/20 at 21:14; Status DC Piperacillin Sod/ Tazobactam Sod 4.5 gm/Sodium Chloride 100 ml @ 200 mls/hr Q6HRS IV Last administered on 07/26/20at 05:36; Start 07/24/20 at 12:00; Stop 07/26/20 at 10:53; Status DC Potassium Chloride/Water 100 ml @ 100 mls/hr Q1H IV ; Start 07/24/20 at 15:30; Stop 07/24/20 at 19:29; Status UNV Potassium Chloride/Water 100 ml @ 100 mls/hr Q1H IV ; Start 07/24/20 at 15:30; Stop 07/24/20 at 17:29; Status UNV Potassium Chloride/Water 100 ml @ 100 mls/hr Q1H IV ; Start 07/24/20 at 15:30; Stop 07/24/20 at 23:29; Status UNV Potassium Chloride/Water 100 ml @ 100 mls/hr Q1H IV ; Start 07/24/20 at 15:30; Stop 07/24/20 at 19:29; Status UNV Potassium Chloride/Water 100 ml @ 100 mls/hr Q1H IV ; Start 07/24/20 at 15:30; Stop 07/25/20 at 03:29; Status UNV Potassium Chloride/Water 100 ml @ 100 mls/hr Q1HR IV ; Start 07/24/20 at 16:00; Stop 07/24/20 at 21:59; Status UNV Magnesium Sulfate 100 ml @ 50 mls/hr DAILY IV ; Start 07/25/20 at 09:00; Stop 07/28/20 at 08:59; Status UNV Sodium Phosphate 20 mmol/Sodium Chloride 256.6667 ml @ 62.5 mls/hr 1X ONCE IV ; Start 07/24/20 at 15:30; Stop 07/24/20 at 19:36; Status UNV Sodium Phosphate 30 mmol/Sodium Chloride 260 ml @ 62.5 mls/hr 1X ONCE IV ; Start 07/24/20 at 15:30; Stop 07/24/20 at 19:39; Status UNV Potassium Phosphate 13.6 mmol/Sodium Chloride 254.5333 ml @ 62.5 mls/hr Q4H IV ; Start 07/24/20 at 15:30; Stop 07/25/20 at 03:29; Status UNV Info (Icu Electrolyte Protocol) 1 ea CONT PRN PRN MC SEE COMMENTS; Start 07/24/20 at 15:45 Vancomycin HCl (Vanco Per Pharmacy) 1 each PRN DAILY PRN MC SEE COMMENTS Last administered on 07/26/20at 08:53; Start 07/25/20 at 07:00; Stop 07/26/20 at 21:14; Status DC Vancomycin HCl 2 gm/Sodium Chloride 500 ml @ 250 mls/hr 1X ONCE IV Last adm inistered on 07/25/20at 07:06; Start 07/25/20 at 07:00; Stop 07/25/20 at 08:59; Status DC Vancomycin HCl 1.25 gm/Sodium Chloride 250 ml @ 167 mls/hr Q8H IV Last administered on 07/25/20at 22:44; Start 07/25/20 at 15:00; Stop 07/26/20 at 07:31; Status DC Vancomycin HCl (Vancomycin Trough Level) 1 each 1X ONCE MC Last administered on 07/26/20at 06:13; Start 07/26/20 at 06:30; Stop 07/26/20 at 06:31; Status DC Vancomycin HCl 1.5 gm/Sodium Chloride 500 ml @ 250 mls/hr Q8H IV Last administered on 07/26/20at 15:42; Start 07/26/20 at 08:00; Stop 07/26/20 at 21:14; Status DC Vancomycin HCl (Vancomycin Trough Level) 1 each 1X ONCE MC ; Start 07/27/20 at 07:30; Stop 07/27/20 at 07:31; Status Cancel Meropenem 500 mg/ Sodium Chloride 50 ml @ 100 mls/hr Q6HRS IV Last administered on 08/02/20at 06:02; Start 07/26/20 at 12:00; Stop 08/02/20 at 07:46; Status DC Potassium Chloride/Water 100 ml @ 100 mls/hr Q1H IV Last administered on 07/27/20at 11:29; Start 07/27/20 at 10:30; Stop 07/27/20 at 12:29; Status DC Insulin Human Lispro (HumaLOG) 0-9 UNITS [id number] SQ Last administered on 07/27/20at 18:17; Start 07/27/20 at 18:00; Stop 08/01/20 at 17:17; Status DC Linezolid/Dextrose 300 ml @ 300 mls/hr Q12HR IV Last administered on 07/30/20at 21:47; Start 07/27/20 at 12:30; Stop 07/31/20 at 07:36; Status DC Vecuronium [place] (Norcuron Bolus) 6 mg PRN Q6HRS ONCE IV ; Start 07/28/20 at 08:45; Stop 07/28/20 at 09:11; Status DC Vecuronium [place] (Norcuron Bolus) 6 mg 1X ONCE IV Last administered on 07/28/20at 09:34; Start 07/28/20 at 09:30; Stop 07/28/20 at 09:31; Status DC Vecuronium [place] (Norcuron Bolus) 6 mg PRN Q6HRS PRN IV Vent Management Last administered on 08/09/20at 15:05; Start 07/28/20 at 23:00; Stop 08/24/20 at 07:50; Status DC Furosemide (Lasix) 20 mg 1X ONCE IVP Last administered on 07/29/20at 06:35; Start 07/29/20 at 06:30; Stop 07/29/20 at 06:31; Status DC Potassium Bicarbonate (Potassium Effervescent Tablet) 20 meq 1X ONCE NG Last administered on 07/29/20at 06:36; Start 07/29/20 at 06:30; Stop 07/29/20 at 06:31; Status DC Rocuronium [place] (Zemuron) 100 mg STK-MED ONCE .ROUTE ; Start 07/31/20 at 12:35; Stop 07/31/20 at 12:35; Status DC Cellulose (Surgicel Fibrillar 1x2) 1 each STK-MED ONCE .ROUTE ; Start 07/31/20 at 13:08; Stop 07/31/20 at 13:08; Status DC Bupivacaine HCl/ Epinephrine Bitart (Sensorcain-Epi 0.5%-1:043733 Mpf) 30 ml 1X ONCE INJ ; Start 07/31/20 at 13:45; Stop 07/31/20 at 13:46; Status DC Ondansetron HCl (Zofran) 4 mg PRN Q6HRS PRN IVP NAUSEA/VOMITING; Start 08/01/20 at 07:00; Stop 08/02/20 at 06:59; Status DC Fentanyl Citrate (Fentanyl 2ml Vial) 25 mcg PRN Q5MIN PRN IVP MILD PAIN 1-3; Start 08/01/20 at 07:00; Stop 08/02/20 at 06:59; Status DC Fentanyl Citrate (Fentanyl 2ml Vial) 50 mcg PRN Q5MIN PRN IVP MODERATE TO SEVERE PAIN; Start 08/01/20 at 07:00; Stop 08/02/20 at 06:59; Status DC Morphine Sulfate (Morphine Sulfate) 1 mg PRN Q10MIN PRN IVP SEVERE PAIN 7-10; Start 08/01/20 at 07:00; Stop 08/02/20 at 06:59; Status DC Ringer's Solution 1,000 ml @ 30 mls/hr Q24H IV ; Start 08/01/20 at 07:00; Stop 08/01/20 at 18:59; Status DC Lidocaine HCl (Xylocaine-Mpf 1% 2ml Vial) 2 ml 1X PRN PRN ID IV START; Start 08/01/20 at 07:00; Stop 08/02/20 at 06:59; Status DC Hydromorphone HCl (Dilaudid) 0.5 mg PRN Q10MIN PRN IVP SEV PAIN, Second choice; Start 08/01/20 at 07:00; Stop 08/02/20 at 06:59; Status DC Prochlorperazine Edisylate (Compazine) 5 mg PACU PRN PRN IVP NAUSEA, MRX1; Start 08/01/20 at 07:00; Stop 08/02/20 at 06:59; Status DC Daptomycin 470 mg/ Sodium Chloride 50 ml @ 100 mls/hr Q24H IV Last administered on 08/05/20at 09:24; Start 08/01/20 at 09:00; Stop 08/05/20 at 11:20; Status DC Ondansetron HCl (Zofran) 4 mg PRN Q6HRS PRN IV NAUSEA/VOMITING; Start 08/02/20 at 07:00; Stop 08/03/20 at 06:59; Status DC Fentanyl Citrate (Fentanyl 2ml Vial) 25 mcg PRN Q5MIN PRN IV MILD PAIN 1-3; Start 08/02/20 at 07:00; Stop 08/03/20 at 06:59; Status DC Fentanyl Citrate (Fentanyl 2ml Vial) 50 mcg PRN Q5MIN PRN IV MODERATE TO SEVERE PAIN; Start 08/02/20 at 07:00; Stop 08/03/20 at 06:59; Status DC Morphine Sulfate (Morphine Sulfate) 1 mg PRN Q10MIN PRN IV SEVERE PAIN 7-10; Start 08/02/20 at 07:00; Stop 08/03/20 at 06:59; Status DC Ringer's Solution 1,000 ml @ 30 mls/hr Q24H IV Last administered on 08/02/20at 07:53; Start 08/02/20 at 07:00; Stop 08/02/20 at 18:59; Status DC Lidocaine HCl (Xylocaine-Mpf 1% 2ml Vial) 2 ml PRN 1X PRN ID PRIOR TO IV START; Start 08/02/20 at 07:00; Stop 08/03/20 at 06:59; Status DC Hydromorphone HCl (Dilaudid) 0.5 mg PRN Q10MIN PRN IV SEV PAIN, Second choice; Start 08/02/20 at 07:00; Stop 08/03/20 at 06:59; Status DC Prochlorperazine Edisylate (Compazine) 5 mg PACU PRN PRN IV NAUSEA, MRX1; Start 08/02/20 at 07:00; Stop 08/03/20 at 06:59; Status DC Levofloxacin/ Dextrose 150 ml @ 100 mls/hr Q24H IV Last administered on 08/05/20at 07:16; Start 08/02/20 at 09:00; Stop 08/05/20 at 11:20; Status DC Rocuronium [place] (Zemuron) 50 mg STK-MED ONCE .ROUTE ; Start 08/02/20 at 10:12; Stop 08/02/20 at 10:13; Status DC Heparin Sodium/ Dextrose 250 ml @ 0 mls/hr CONT PRN IV PER PROTOCOL; Start 08/03/20 at 10:45; Status UNV Heparin Sodium (Porcine) (Heparin Sodium) 2,300 unit PRN Q6HRS PRN IV FOR UFH LEVEL LESS THAN 0.2; Start 08/03/20 at 10:45; Stop 08/03/20 at 10:54; Status DC Heparin Sodium (Porcine) (Heparin Sodium) 1,150 unit PRN Q6HRS PRN IV FOR UFH LEVEL 0.2 - 0.29; Start 08/03/20 at 10:45; Stop 08/03/20 at 10:54; Status DC Heparin Sodium/ Dextrose 250 ml @ 0 mls/hr CONT PRN IV PER PROTOCOL Last administered on 08/11/20at 12:04; Start 08/03/20 at 11:00; Stop 08/11/20 at 14:21; Status DC Heparin Sodium (Porcine) (Heparin Sodium) 2,000 unit PRN Q6HRS PRN IV FOR PTT 40 - 58 Last administered on 08/08/20at 12:41; Start 08/03/20 at 11:00; Stop 08/11/20 at 14:21; Status DC Heparin Sodium (Porcine) (Heparin Sodium) 1,000 unit PRN Q6HRS PRN IV FOR PTT 59 - 78 Last administered on 08/04/20at 00:12; Start 08/03/20 at 11:00; Stop 08/11/20 at 14:21; Status DC Ondansetron HCl (Zofran) 4 mg PRN Q6HRS PRN IV NAUSEA/VOMITING; Start 08/06/20 at 07:00; Stop 08/07/20 at 06:59; Status DC Fentanyl Citrate (Fentanyl 2ml Vial) 25 mcg PRN Q5MIN PRN IV MILD PAIN 1-3; Start 08/06/20 at 07:00; Stop 08/07/20 at 06:59; Status DC Fentanyl Citrate (Fentanyl 2ml Vial) 50 mcg PRN Q5MIN PRN IV MODERATE TO SEVERE PAIN; Start 08/06/20 at 07:00; Stop 08/07/20 at 06:59; Status DC Morphine Sulfate (Morphine Sulfate) 1 mg PRN Q10MIN PRN IV SEVERE PAIN 7-10; Start 08/06/20 at 07:00; Stop 08/07/20 at 06:59; Status DC Ringer's Solution 1,000 ml @ 30 mls/hr Q24H IV ; Start 08/06/20 at 07:00; Stop 08/06/20 at 18:59; Status DC Lidocaine HCl (Xylocaine-Mpf 1% 2ml Vial) 2 ml PRN 1X PRN ID PRIOR TO IV START; Start 08/06/20 at 07:00; Stop 08/07/20 at 06:59; Status DC Hydromorphone HCl (Dilaudid) 0.5 mg PRN Q10MIN PRN IV SEV PAIN, Second choice; Start 08/06/20 at 07:00; Stop 08/07/20 at 06:59; Status DC Prochlorperazine Edisylate (Compazine) 5 mg PACU PRN PRN IV NAUSEA, MRX1; Start 08/06/20 at 07:00; Stop 08/07/20 at 06:59; Status DC Bupivacaine HCl/ Epinephrine Bitart (Sensorcain-Epi 0.5%-1:086562 Mpf) 30 ml 1X ONCE INJ Last administered on 08/06/20at 15:15; Start 08/06/20 at 06:30; Stop 08/06/20 at 06:31; Status DC Rocuronium [place] (Zemuron) 50 mg STK-MED ONCE .ROUTE ; Start 08/06/20 at 11:02; Stop 08/06/20 at 11:03; Status DC Fentanyl Citrate (Fentanyl 2ml Vial) 100 mcg STK-MED ONCE .ROUTE ; Start 08/06/20 at 11:03; Stop 08/06/20 at 11:03; Status DC Cellulose (Surgicel Hemostat 4x8) 1 each STK-MED ONCE .ROUTE ; Start 08/06/20 at 14:10; Stop 08/06/20 at 14:11; Status DC Sevoflurane (Ultane) 30 ml STK-MED ONCE IH ; Start 08/06/20 at 15:18; Stop 08/06/20 at 15:19; Status DC Rocuronium [place] (Zemuron) 50 mg STK-MED ONCE .ROUTE ; Start 08/06/20 at 15:19; Stop 08/06/20 at 15:19; Status DC Acetaminophen (Tylenol Supp) 650 mg PRN Q6HRS PRN ID MILD PAIN / TEMP > 100.3'F Last administered on 08/07/20at 19:28; Start 08/06/20 at 20:45 Sodium Chloride 1,000 ml @ 100 mls/hr Q10H IV Last administered on 08/11/20at 16:30; Start 08/07/20 at 12:00; Stop 08/12/20 at 10:50; Status DC Cefazolin Sodium/ Dextrose 50 ml @ 100 mls/hr 1X ONCE IV Last administered on 08/09/20at 11:04; Start 08/09/20 at 11:00; Stop 08/09/20 at 11:29; Status DC Ringer's Solution 1,000 ml @ 30 mls/hr Q24H IV Last administered on 08/09/20at 06:11; Start 08/09/20 at 06:00; Stop 08/09/20 at 17:59; Status DC Prochlorperazine Edisylate (Compazine) 5 mg PACU PRN PRN IVP NAUSEA, MRX1; Start 08/09/20 at 06:00; Stop 08/10/20 at 05:59; Status DC Dexmedetomidine HCl 400 mcg/ Sodium Chloride 100 ml @ 0 mls/hr CONT PRN IV PER PROTOCOL Last administered on 08/17/20at 11:29; Start 08/11/20 at 10:00; Stop 08/24/20 at 07:50; Status DC Potassium Chloride/Water 100 ml @ 100 mls/hr Q1H IV ; Start 08/11/20 at 12:30; Stop 08/11/20 at 16:29; Status UNV Potassium Bicarbonate (Potassium Effervescent Tablet) 40 meq Q2H PO Last administered on 08/11/20at 14:58; Start 08/11/20 at 12:45; Stop 08/11/20 at 14:46; Status DC Vancomycin HCl (Vanco Per Pharmacy) 1 each PRN DAILY PRN MC SEE COMMENTS Last administered on 08/13/20at 15:09; Start 08/11/20 at 13:30; Stop 08/14/20 at 08:03; Status DC Vancomycin HCl 1.75 gm/Sodium Chloride 500 ml @ 250 mls/hr 1X ONCE IV Last administered on 08/11/20at 14:46; Start 08/11/20 at 14:00; Stop 08/11/20 at 15:59; Status DC Heparin Sodium/ Dextrose 250 ml @ 0 mls/hr CONT PRN IV PER PROTOCOL Last administered on 08/18/20at 00:46; Start 08/11/20 at 14:30; Stop 08/18/20 at 10:00; Status DC Heparin Sodium (Porcine) (Heparin Sodium) 2,450 unit PRN Q6HRS PRN IV FOR UFH LEVEL LESS THAN 0.2 Last administered on 08/13/20at 05:39; Start 08/11/20 at 14:30; Stop 08/18/20 at 10:00; Status DC Heparin Sodium (Porcine) (Heparin Sodium) 1,250 unit PRN Q6HRS PRN IV FOR UFH LEVEL 0.2 - 0.29 Last administered on 08/14/20at 22:56; Start 08/11/20 at 14:30; Stop 08/18/20 at 10:00; Status DC Vancomycin HCl 1.5 gm/Sodium Chloride 500 ml @ 250 mls/hr Q8H IV Last administered on 08/12/20at 14:49; Start 08/11/20 at 23:00; Stop 08/12/20 at 15:13; Status DC Vancomycin HCl (Vancomycin Trough Level) 1 each 1X ONCE MC Last administered on 08/12/20at 14:30; Start 08/12/20 at 14:30; Stop 08/12/20 at 14:31; Status DC Potassium Chloride/Water 100 ml @ 100 mls/hr Q1H IV Last administered on 08/12/20at 14:50; Start 08/12/20 at 05:00; Stop 08/12/20 at 12:59; Status DC Vancomycin HCl 1.75 gm/Sodium Chloride 500 ml @ 250 mls/hr Q8H IV Last administered on 08/14/20at 07:04; Start 08/12/20 at 23:00; Stop 08/14/20 at 08:01; Status DC Vancomycin HCl (Vancomycin Trough Level) 1 each 1X ONCE MC ; Start 08/13/20 at 14:30; Stop 08/13/20 at 14:31; Status DC Potassium Chloride/Water 100 ml @ 100 mls/hr Q1H IV Last administered on 08/13/20at 02:02; Start 08/12/20 at 22:00; Stop 08/13/20 at 01:59; Status DC Prochlorperazine Edisylate (Compazine) 10 mg PRN Q6HRS PRN IV NAUSEA/VOMITING 1ST CHOICE Last administered on 08/19/20at 13:34; Start 08/12/20 at 21:30 Meclizine HCl (Antivert) 25 mg PRN DAILY PRN PO DIZZINESS; Start 08/12/20 at 23:00 Potassium Chloride/Water 100 ml @ 100 mls/hr Q1H IV Last administered on 08/13/20at 08:53; Start 08/13/20 at 02:00; Stop 08/13/20 at 05:59; Status DC Magnesium Sulfate 100 ml @ 50 mls/hr DAILY IV Last administered on 08/15/20at 08:43; Start 08/13/20 at 00:00; Stop 08/16/20 at 00:00; Status DC Potassium Chloride/Water 100 ml @ 100 mls/hr Q1H IV Last administered on 08/13/20at 18:10; Start 08/13/20 at 13:00; Stop 08/13/20 at 16:59; Status DC Insulin Human Lispro (HumaLOG) 0-7 UNITS Q6HRS SQ Last administered on 08/19/20at 11:38; Start 08/14/20 at 12:00 Dextrose (Dextrose 50%-Water Syringe) 12.5 gm PRN Q15MIN PRN IV SEE COMMENTS; Start 08/14/20 at 08:00; Status UNV Meropenem 500 mg/ Sodium Chloride 50 ml @ 100 mls/hr Q6HRS IV Last administered on 08/23/20at 05:54; Start 08/14/20 at 09:00; Stop 08/23/20 at 10:55; Status DC Linezolid (Zyvox) 600 mg BID PO Last administered on 08/19/20at 08:22; Start 08/14/20 at 09:00; Stop 08/19/20 at 12:00; Status DC Potassium Bicarbonate (Potassium Effervescent Tablet) 40 meq 1X ONCE PEG Last administered on 08/15/20at 10:25; Start 08/15/20 at 09:45; Stop 08/15/20 at 09:46; Status DC Lidocaine HCl (Buffered Lidocaine 1%) 3 ml STK-MED ONCE .ROUTE ; Start 08/15/20 at 12:41; Stop 08/15/20 at 12:41; Status DC Lidocaine HCl (Buffered Lidocaine 1%) 6 ml 1X ONCE INJ Last administered on 08/15/20at 13:07; Start 08/15/20 at 13:00; Stop 08/15/20 at 13:01; Status DC Fentanyl Citrate (Fentanyl 2ml Vial) 100 mcg STK-MED ONCE .ROUTE ; Start at 13:27; Stop 08/15/20 at 13:28; Status DC Fentanyl Citrate (Fentanyl 2ml Vial) 50 mcg PRN Q4HRS PRN IVP PAIN Last adm inistered on 08/22/20at 03:47; Start 08/15/20 at 14:15 Fentanyl Citrate (Fentanyl 2ml Vial) 50 mcg 1X ONCE IVP Last administered on 08/15/20at 14:29; Start 08/15/20 at 14:15; Stop 08/15/20 at 14:18; Status DC Iohexol (Omnipaque 350 Mg/ml) 100 ml 1X ONCE IV Last administered on 08/17/20at 05:45; Start 08/17/20 at 05:45; Stop 08/17/20 at 05:46; Status DC Info (CONTRAST GIVEN -- Rx MONITORING) 1 each PRN DAILY PRN MC SEE COMMENTS; Start 08/17/20 at 05:45; Stop 08/19/20 at 05:44; Status DC Apixaban (Eliquis) 5 mg BID PO Last administered on 08/24/20at 08:59; Start 08/18/20 at 10:00 Lansoprazole (Prevacid) 30 mg DAILY FT Last administered on 08/24/20 08:59; Start 08/21/20 at 09:00 Doxycycline Hyclate (Vibra-Tab) 100 mg BID PO Last administered on 08/24/20at 08:59; Start 08/21/20 at 10:00 Amoxicillin/ Clavulanate Potassium (Augmentin 875/ 125mg) 1 tab BID PO Last administered on 08/24/20at 08:59; Start 08/23/20 at 21:00 Vitals/I & O Vital Sign - Last 24 Hours 08/23/20 08/23/20 08/23/20 08/23/20 11:00 14:59 15:37 18:51 Temp 97.4 98.1 98.4 97.4 98.1 98.4 Pulse 80 82 79 Resp 28 22 22 B/P (MAP) 149/95 (113) 126/72 (90) 116/68 (84) Pulse Ox 98 100 100 98 O2 Delivery Tracheal Collar Tracheal Collar Tracheal Collar Tracheal Collar O2 Flow Rate 8.0 8.0 8.0 8.0 08/23/20 08/23/20 08/23/20 08/24/20 20:15 23:00 23:45 03:25 Temp 98.8 98.0 98.8 98.0 Pulse 74 85 Resp 20 18 B/P (MAP) 109/66 (80) 117/68 (84) Pulse Ox 94 96 O2 Delivery Trach Collar Tracheal Collar Tracheal Collar Tracheal Collar O2 Flow Rate 8.0 8.0 8.0 8.0 08/24/20 07:02 Temp 98.1 98.1 Pulse 74 Resp 20 B/P (MAP) 114/68 (83) Pulse Ox 98 O2 Delivery Tracheal Collar O2 Flow Rate 8.0 Intake and Output 08/23/20 08/23/20 08/24/20 15:00 23:00 07:00 Intake Total 460 ml 100 ml 950 ml Output Total 1100 ml 750 ml Balance 460 ml -1000 ml 200 ml Justicifation of Admission Dx: Justifications for Admission: Justification of Admission Dx: Yes REESE CASEY MD Aug 24, 2020 10:29
[2020-08-24 10:38] VITALS: BP 122/79
--- NOTE | 2020-08-24 12:07 | PDOC ---
PULMONARY PROGRESS NOTES DATE: 08/24/20 TIME: 12:05 Subjective Patient remains on trach shield with PMV No other concerns from nursing overnight Vitals Vital Signs Date Time Temp Pulse Resp B/P (MAP) Pulse Ox O2 Delivery O2 Flow Rate FiO2 08/24/20 10:38 98.9 75 20 122/79 (93) 99 Tracheal Collar 8.0 98.9 Comments ROS: No Nausea, No Chest Pain, No Abdominal Pain, No Increase Cough General: Alert, No acute distress Lungs: Clear Cardiovascular: S1, S2 Abdomen: Soft Neuro Exam: Alert, Oriented Extremities: No Edema Skin: Warm, Dry Labs Laboratory Tests Test 08/22/20 17:16 08/23/20 00:16 08/23/20 05:58 08/23/20 09:12 Glucose (Fingerstick) 130 mg/dL (70-99) 89 mg/dL (70-99) 125 mg/dL (70-99) Hepatitis A IgM Antibody Nonreactive (Nonreactive) Hepatitis B Surface Antigen Nonreactive (Nonreactive) Hepatitis B Core IgM Antibody Nonreactive (Nonreactive) Hepatitis C IgG Antibody Nonreactive (Nonreactive) Test 08/23/20 11:48 08/23/20 17:57 08/23/20 23:25 08/24/20 06:34 Glucose (Fingerstick) 140 mg/dL (70-99) 135 mg/dL (70-99) 113 mg/dL (70-99) 116 mg/dL (70-99) Test 08/24/20 11:11 Glucose (Fingerstick) 121 mg/dL (70-99) Laboratory Tests Test 08/23/20 17:57 08/23/20 23:25 08/24/20 06:34 08/24/20 11:11 Glucose (Fingerstick) 135 mg/dL (70-99) 113 mg/dL (70-99) 116 mg/dL (70-99) 121 mg/dL (70-99) Comments CXR 08/20 IMPRESSION: small left effusion, bilateral infiltrates L>R CT CHEST 08/14 1. Marked interval enlargement of left lateral effusion. This could be causing some mass effect on the mediastinum. 2. Extensive pleural-parenchymal scarring and patchy airspace opacities in the lungs compatible with the sequelae of atypical pneumonia. Electronically signed by: Gosia Li MD (08/14/2020 1:28 PM) [id number] Impression . IMPRESSION: 1. Acute hypoxemic respiratory failure./ALI/ARDS due to COVID -19, much improved. 2. Acute pulmonary embolism , still some residual PE, on Eliquis 3. COVID-19 pnemonia.now with low grade fevers, suspect VAP/ less likely empy rosa ( based on analysis) 5. Hypertension. 6. History of bronchitis. 7. Elevated troponin. 8. Acute kidney injury. 9. Leukocytosis. 10. Covid-[address] chest 08/14 , large left effusion, improved post chest tube left, no sig drainage or increase effusion, Plan . Continue Trach shield 8 liters Oxygen Cap trach and / PMV as tolerated plan to downsize trach in am and eventually decannulate Status post tracheostomy 08/06 and S/P Peg tube placement 08/09 repeat CTA chest with residual PE. f/u, dopplers neg, re-started Eliquis 08/18 f/u chest x-ray as needed Follow cardiology recommendations Antibiotics per ID--AFB negative, repeat cultures negative, now on po ABX Has completed full course of remdesivir Continue tube feeding for nutritional support PT/OT and consult speech --failed swallow study remains n.p.o. DVT/GI prophylaxis,Protonix/eliquis Discussed with RN and RT Pt. is FULL CODE ALVIN RAMSEY MD Aug 24, 2020 12:07
--- NOTE | 2020-08-24 13:06 | PDOC ---
Infectious Disease Note Subjective: Subjective Patient has no complaints Vital Signs: Vital Signs Vital Signs Date Time Temp Pulse Resp B/P (MAP) Pulse Ox O2 Delivery O2 Flow Rate FiO2 08/24/20 10:38 98.9 75 20 122/79 (93) 99 Tracheal Collar 8.0 98.9 Physical Exam: PHYSICAL EXAM General alert awake HEENT normocephalic atraumatic , Neck trach present LUNGS: Clear anteriorly, left CTS HEART: S1-S2 no murmurs ABDOMEN: mildly distended, soft bowel sounds present Fernandez in place,fecal tube in place SKIN: No generalized rash Right upper extremity PICC line removed PIVs Clean Neuro alert awake Medications: Inpatient Meds: Current Medications Medications (Trade) Dose Ordered Sig/Natalee Start Time Stop Time Status Last Admin Dose Admin Acetaminophen (Tylenol Supp) 650 mg PRN Q6HRS PRN 08/06/20 20:45 08/07/20 19:28 650 MG Acetaminophen (Tylenol) 650 mg PRN Q6HRS PRN 07/12/20 12:00 08/24/20 08:59 650 MG Amoxicillin/ Clavulanate Potassium (Augmentin 875/ 125mg) 1 tab BID 08/23/20 21:00 08/24/20 08:59 1 TAB Apixaban (Eliquis) 5 mg BID 08/18/20 10:00 08/24/20 08:59 5 MG Ascorbic Acid (Vitamin C) 500 mg Q6HRS 07/04/20 18:00 08/05/20 08:39 DC 08/05/20 06:07 500 MG Azithromycin (Zithromax) 500 mg 1X ONCE 07/03/20 19:15 07/03/20 19:19 DC 07/03/20 20:11 500 MG Bupivacaine HCl/ Epinephrine Bitart (Sensorcain-Epi 0.5%-1:[id number] Mpf) 30 ml 1X ONCE 08/06/20 06:30 08/06/20 06:31 DC 08/06/20 15:15 1 ML Cefazolin Sodium/ Dextrose 50 ml @ 100 mls/hr 1X ONCE 08/09/20 11:00 08/09/20 11:29 DC 08/09/20 11:04 100 MLS/HR Ceftriaxone Sodium (Rocephin) 1 gm 1X ONCE 07/03/20 19:15 07/03/20 19:19 DC 07/03/20 20:11 1 GM Cellulose (Surgicel Fibrillar 1x2) 1 each STK-MED ONCE 07/31/20 13:08 07/31/20 13:08 DC Cellulose (Surgicel Hemostat 4x8) 1 each STK-MED ONCE 08/06/20 14:10 08/06/20 14:11 DC Daptomycin 470 mg/ Sodium Chloride 50 ml @ 100 mls/hr Q24H 08/01/20 09:00 08/05/20 11:20 DC 08/05/20 09:24 100 MLS/HR Dexmedetomidine HCl 400 mcg/ Sodium Chloride 100 ml @ 0 mls/hr CONT PRN 08/11/20 10:00 08/24/20 07:50 DC 08/17/20 11:29 4.1 MLS/HR Dextrose (Dextrose 50%-Water Syringe) 12.5 gm PRN Q15MIN PRN 08/14/20 08:00 UNV Doxycycline Hyclate (Vibra-Tab) 100 mg BID 08/21/20 10:00 08/24/20 08:59 100 MG Enoxaparin Sodium (Lovenox 150mg Syringe) 150 mg 1X ONCE 07/03/20 23:00 07/03/20 23:01 DC 07/03/20 22:45 150 MG Etomidate (Amidate) 10 mg 1X ONCE 07/04/20 09:30 07/04/20 09:31 DC 07/04/20 09:37 10 MG Fentanyl Citrate (Fentanyl 2ml Vial) 50 mcg 1X ONCE 08/15/20 14:15 08/15/20 14:18 DC 08/15/20 14:29 50 MCG Furosemide (Lasix) 20 mg 1X ONCE 07/29/20 06:30 07/29/20 06:31 DC 07/29/20 06:35 20 MG Heparin Sodium (Porcine) (Heparin Sodium) 1,250 unit PRN Q6HRS PRN 08/11/20 14:30 08/18/20 10:00 DC 08/14/20 22:56 1,250 UNIT Heparin Sodium/ Dextrose 250 ml @ 0 mls/hr CONT PRN 08/11/20 14:30 08/18/20 10:00 DC 08/18/20 00:46 26.2 MLS/HR Hydromorphone HCl (Dilaudid) 0.5 mg PRN Q10MIN PRN 08/06/20 07:00 08/07/20 06:59 DC Info (Anti-Coagulation Monitoring By Pharmacy) 1 each PRN DAILY PRN 07/16/20 08:15 08/24/20 07:52 1 EACH Info (CONTRAST GIVEN -- Rx MONITORING) 1 each PRN DAILY PRN 08/17/20 05:45 08/19/20 05:44 DC Info (Icu Electrolyte Protocol) 1 ea CONT PRN PRN 07/24/20 15:45 Insulin Human Lispro (HumaLOG) 0-7 UNITS Q6HRS 08/14/20 12:00 08/19/20 11:38 3 UNITS Iohexol (Omnipaque 350 Mg/ml) 100 ml 1X ONCE 08/17/20 05:45 08/17/20 05:46 DC 08/17/20 05:45 100 ML Lansoprazole (Prevacid) 30 mg DAILY 08/21/20 09:00 08/24/20 08:59 30 MG Levofloxacin/ Dextrose 150 ml @ 100 mls/hr Q24H 08/02/20 09:00 08/05/20 11:20 DC 08/05/20 07:16 100 MLS/HR Lidocaine HCl (Buffered Lidocaine 1%) 6 ml 1X ONCE 08/15/20 13:00 08/15/20 13:01 DC 08/15/20 13:07 5 ML Lidocaine HCl (Xylocaine-Mpf 1% 2ml Vial) 2 ml PRN 1X PRN 08/06/20 07:00 08/07/20 06:59 DC Linezolid (Zyvox) 600 mg BID 08/14/20 09:00 08/19/20 12:00 DC 08/19/20 08:22 600 MG Linezolid/Dextrose 300 ml @ 300 mls/hr Q12HR 07/27/20 12:30 07/31/20 07:36 DC 07/30/20 21:47 300 MLS/HR Lorazepam (Ativan Inj) 2 mg PRN Q1HR PRN 07/21/20 12:30 08/18/20 00:45 2 MG Magnesium Sulfate 100 ml @ 50 mls/hr DAILY 08/13/20 00:00 08/16/20 00:00 DC 08/15/20 08:43 50 MLS/HR Meclizine HCl (Antivert) 25 mg PRN DAILY PRN 08/12/20 23:00 Meropenem 500 mg/ Sodium Chloride 50 ml @ 100 mls/hr Q6HRS 08/14/20 09:00 08/23/20 10:55 DC 08/23/20 05:54 100 MLS/HR Methylprednisolone Sodium Succinate (SOLU-Medrol 40MG VIAL) 40 mg DAILY 07/21/20 09:00 07/22/20 09:36 DC 07/22/20 09:08 40 MG Midazolam HCl (Versed) 5 mg STK-MED ONCE 07/04/20 09:21 07/04/20 09:21 DC Morphine Sulfate (Morphine Sulfate) 1 mg PRN Q10MIN PRN 08/06/20 07:00 08/07/20 06:59 DC Multi-Ingred Cream/Lotion/Oil/ Oint (Artificial Tears Eye Ointment) 1 wenceslao PRN Q1HR PRN 07/18/20 10:45 07/27/20 17:19 1 WENCESLAO Norepinephrine Bitartrate 8 mg/ Dextrose 258 ml @ 16.061 mls/ hr CONT PRN 07/04/20 13:15 07/18/20 11:01 DC 07/05/20 00:33 28.909 MLS/HR Ondansetron HCl (Zofran) 4 mg PRN Q6HRS PRN 08/06/20 07:00 08/07/20 06:59 DC Pantoprazole Sodium (PROTONIX VIAL for IV PUSH) 40 mg DAILYAC 07/04/20 12:30 08/20/20 10:25 DC 08/20/20 10:29 40 MG Piperacillin Sod/ Tazobactam Sod (Zosyn Per Pharmacy) 1 each PRN DAILY PRN 07/04/20 12:00 07/18/20 07:46 DC Piperacillin Sod/ Tazobactam Sod 3.375 gm/Sodium Chloride 50 ml @ 100 mls/hr Q6HRS 07/04/20 12:00 07/17/20 11:11 DC 07/17/20 05:10 100 MLS/HR Piperacillin Sod/ Tazobactam Sod 4.5 gm/Sodium Chloride 100 ml @ 200 mls/hr Q6HRS 07/24/20 12:00 12/20 10:53 DC 07/26/20 05:36 200 MLS/HR Potassium Bicarbonate (Potassium Effervescent Tablet) 40 meq 1X ONCE 08/15/20 09:45 08/15/20 09:46 DC 08/15/20 10:25 40 MEQ Potassium Chloride/Water 100 ml @ 100 mls/hr Q1H 08/13/20 13:00 08/13/20 16:59 DC 08/13/20 18:10 100 MLS/HR Potassium Phosphate 13.6 mmol/Sodium Chloride 254.5333 ml @ 62.5 mls/hr Q4H 07/24/20 15:30 07/25/20 03:29 UNV Prochlorperazine Edisylate (Compazine) 10 mg PRN Q6HRS PRN 08/12/20 21:30 08/19/20 13:34 10 MG Propofol 100 ml @ 0 mls/hr CONT PRN 07/04/20 09:15 08/24/20 07:49 DC 08/11/20 06:42 14.9 MLS/HR Remdesivir 100 mg/ Sodium Chloride 230 ml @ 460 mls/hr Q24H 07/07/20 14:30 07/10/20 14:59 DC 07/10/20 13:59 460 MLS/HR Remdesivir 200 mg/ Sodium Chloride 210 ml @ 210 mls/hr 1X ONCE 07/06/20 14:30 07/06/20 15:29 DC 07/06/20 14:51 210 MLS/HR Ringer's Solution 1,000 ml @ 30 mls/hr Q24H 08/09/20 06:00 08/09/20 17:59 DC 08/09/20 06:11 30 MLS/HR Rocuronium [place] (Zemuron) 50 mg STK-MED ONCE 08/06/20 15:19 08/06/20 15:19 DC Sevoflurane (Ultane) 30 ml STK-MED ONCE 08/06/20 15:18 08/06/20 15:19 DC Sodium Chloride 1,000 ml @ 100 mls/hr Q10H 08/07/20 12:00 08/12/20 10:50 DC 08/11/20 16:30 100 MLS/HR Sodium Phosphate 20 mmol/Sodium Chloride 256.6667 ml @ 62.5 mls/hr 1X ONCE 07/24/20 15:30 07/24/20 19:36 UNV Sodium Phosphate 30 mmol/Sodium Chloride 260 ml @ 62.5 mls/hr 1X ONCE 07/24/20 15:30 07/24/20 19:39 UNV Succinylcholine Chloride (Anectine) 200 mg 1X ONCE 07/04/20 09:30 07/04/20 09:31 DC 07/04/20 09:38 200 MG Throat Lozenges (Cepacol Sore Throat Lozenge) 1 lety PRN Q2HRS PRN 07/04/20 01:15 Vancomycin HCl (Vanco Per Pharmacy) 1 each PRN DAILY PRN 08/11/20 13:30 08/14/20 08:03 DC 08/13/20 15:09 1 EACH Vancomycin HCl (Vancomycin Trough Level) 1 each 1X ONCE 08/13/20 14:30 08/13/20 14:31 DC Vancomycin HCl 1.25 gm/Sodium Chloride 250 ml @ 167 mls/hr Q8H 07/25/20 15:00 07/26/20 07:31 DC 07/25/20 22:44 167 MLS/HR Vancomycin HCl 1.5 gm/Sodium Chloride 500 ml @ 250 mls/hr Q8H 08/11/20 23:00 08/12/20 15:13 DC 08/12/20 14:49 250 MLS/HR Vancomycin HCl 1.75 gm/Sodium Chloride 500 ml @ 250 mls/hr Q8H 08/12/20 23:00 08/14/20 08:01 DC 08/14/20 07:04 250 MLS/HR Vancomycin HCl 2 gm/Sodium Chloride 500 ml @ 250 mls/hr 1X ONCE 07/25/20 07:00 07/25/20 08:59 DC 07/25/20 07:06 250 MLS/HR Vecuronium [place] 50 mg/ Miscellaneous 50 ml @ 4.094 mls/ hr CONT PRN 07/12/20 14:45 07/22/20 09:34 DC 07/18/20 01:56 7.5 MLS/HR Vecuronium [place] (Norcuron Bolus) 6 mg PRN Q6HRS PRN 07/28/20 23:00 08/24/20 07:50 DC 08/09/20 15:05 6 MG Vitamin D (Vitamin D3) 5,000 unit DAILY 07/05/20 09:00 08/24/20 08:59 5,000 UNIT Zinc Sulfate (Orazinc) 220 mg DAILY 07/05/20 09:00 08/24/20 08:59 220 MG Labs: Lab Laboratory Tests Test 08/23/20 17:57 08/23/20 23:25 08/24/20 06:34 08/24/20 11:11 Glucose (Fingerstick) 135 mg/dL (70-99) 113 mg/dL (70-99) 116 mg/dL (70-99) 121 mg/dL (70-99) Objective: Assessment: Left pleural effusion status post CTS August 15 Left thoracocentesis with CTS pH 7.73, cell count, glucose, protein .ldh noted, cult neg Fevers Source ?? Leukocytosis improved COVID-19 positive. Status post remdesivir, steroids Acute hypoxic respiratory failure/ARDS /pneumonia H/O Bilateral pulmonary emboli. Hypertension. Bacteremia 07/23 08/25 bottles staph hominis likely contaminant Repeat blood cultures staph capitis likely contaminant Repeat BC 08/06 staph pettenkori likely contaminant Enterobacter UTI and pneumonia Treated Plan: Plan of Care cont augmentin and doxy off Merrem PICC line removed C. difficile negative 08/14 f/u cults negative so far tracheal aspirate for afb stain and cultures negative so far f/u acute hepatitis panel HIV negative CT chest abdomen and pelvis reviewed, Lt base changes present pulm team following D/W JAMI LUCAS MD Aug 24, 2020 13:06
[2020-08-24 14:22] VITALS: BP 104/68
[2020-08-24 16:35] LABS: BASO # 0.1 x10^3/uL (0.0-0.2); BASO % 0 % (0-3); EOS # 0.9 x10^3/uL (0.0-0.7); EOS % 8 % (0-3); HEMATOCRIT 32.1 % (39.0-53.0); HEMOGLOBIN 10.8 g/dL (13.0-17.5); LYMPH # 1.8 x10^3/uL (1.0-4.8); LYMPH % 15 % (24-48); MEAN CORPUSCULAR HEMOGLOBIN 31 pg (25-35); MEAN CORPUSCULAR HGB CONC 34 g/dL (31-37); MEAN CORPUSCULAR VOLUME 93 fL (79-100); MONO # 0.9 x10^3/uL (0.0-1.1); MONO % 8 % (0-9); NEUT # 8.6 x10^3/uL (1.8-7.7); NEUT % 70 % (31-73); PLATELET COUNT 296 x10^3/uL (140-400); RED BLOOD COUNT 3.46 x10^6/uL (4.30-5.70); RED CELL DISTRIBUTION WIDTH 17.5 % (11.5-14.5); WHITE BLOOD COUNT 12.4 x10^3/uL (4.0-11.0)
[2020-08-24 17:05] LABS: ALBUMIN 2.6 g/dL (3.4-5.0); ALBUMIN/GLOBULIN RATIO 0.5 (1.0-1.7); CALCIUM 9.1 mg/dL (8.5-10.1); CREATININE 0.6 mg/dL (0.7-1.3); GFR 142.6; POTASSIUM 3.8 mmol/L (3.5-5.1); TOTAL BILIRUBIN 0.4 mg/dL (0.2-1.0); TOTAL PROTEIN 7.5 g/dL (6.4-8.2)
[2020-08-24 19:00] VITALS: BP 111/66
--- NOTE | 2020-08-24 19:15 | NUR ---
Pt in bed assessment completed vss poc explained thru translation phone will resume care and continue to monitor pt. Call light in reach.
[2020-08-24 23:06] VITALS: BP 115/69
[2020-08-25 03:00] VITALS: BP 110/67
[2020-08-25] MEDS: INSULIN LISPRO 300 UNITS/3 ML VIAL. SQ SCH ×4 (06:04→18:00)
[2020-08-25 07:00] VITALS: BP 129/78
[2020-08-25] MEDS: AMOXICILLIN/K CLAV 875/125MG TABLET. PO SCH ×2 (09:07→21:20)
[2020-08-25] MEDS: ZINC SULFATE 220 MG CAPSULE. PO SCH (09:07)
[2020-08-25] MEDS: LANSOPRAZOLE 30 MG TAB.RAP.DR FT SCH (09:07)
[2020-08-25] MEDS: DOXYCYCLINE HYCLATE 100 MG TABLET PO SCH ×2 (09:07→21:20)
[2020-08-25] MEDS: APIXABAN 5 MG TABLET. PO SCH ×2 (09:08→21:20)
[2020-08-25] MEDS: CHOLECALCIFEROL (VITAMIN D3) 5,000 UNIT CAPSULE PO SCH (09:08)
--- NOTE | 2020-08-25 10:09 | PDOC ---
PULMONARY PROGRESS NOTES DATE: 08/25/20 TIME: 10:07 Subjective Patient remains on trach shield with PMV up to chair today, doing well No other concerns from nursing overnight Vitals Vital Signs Date Time Temp Pulse Resp B/P (MAP) Pulse Ox O2 Delivery O2 Flow Rate FiO2 08/25/20 08:00 Trach Collar 8.0 08/25/20 07:51 100 08/25/20 07:00 97.6 75 16 129/78 (95) 97.6 Comments ROS: No Nausea, No Chest Pain, No Abdominal Pain, No Increase Cough General: Alert, No acute distress HEENT: Other (trach-midline ) Lungs: Clear Cardiovascular: S1, S2 Abdomen: Soft Neuro Exam: Alert, Oriented Extremities: No Edema Skin: Warm, Dry Labs Laboratory Tests Test 08/23/20 11:48 08/23/20 17:57 08/23/20 23:25 08/24/20 06:34 Glucose (Fingerstick) 140 mg/dL (70-99) 135 mg/dL (70-99) 113 mg/dL (70-99) 116 mg/dL (70-99) Test 08/24/20 11:11 08/24/20 15:51 08/24/20 17:55 08/24/20 23:51 Glucose (Fingerstick) 121 mg/dL (70-99) 134 mg/dL (70-99) 118 mg/dL (70-99) White Blood Count 12.4 x10^3/uL (4.0-11.0) Red Blood Count 3.46 x10^6/uL (4.30-5.70) Hemoglobin 10.8 g/dL (13.0-17.5) Hematocrit 32.1 % (39.0-53.0) Mean Corpuscular Volume 93 fL (79-100) Mean Corpuscular Hemoglobin 31 pg (25-35) Mean Corpuscular Hemoglobin Concent 34 g/dL (31-37) Red Cell Distribution Width 17.5 % (11.5-14.5) Platelet Count 296 x10^3/uL (140-400) Neutrophils (%) (Auto) 70 % (31-73) Lymphocytes (%) (Auto) 15 % (24-48) Monocytes (%) (Auto) 8 % (0-9) Eosinophils (%) (Auto) 8 % (0-3) Basophils (%) (Auto) 0 % (0-3) Neutrophils # (Auto) 8.6 x10^3/uL (1.8-7.7) Lymphocytes # (Auto) 1.8 x10^3/uL (1.0-4.8) Monocytes # (Auto) 0.9 x10^3/uL (0.0-1.1) Eosinophils # (Auto) 0.9 x10^3/uL (0.0-0.7) Basophils # (Auto) 0.1 x10^3/uL (0.0-0.2) Sodium Level 134 mmol/L (136-145) Potassium Level 3.8 mmol/L (3.5-5.1) Chloride Level 98 mmol/L (98-107) Carbon Dioxide Level 29 mmol/L (21-32) Anion Gap 7 (6-14) Blood Urea Nitrogen 18 mg/dL (8-26) Creatinine 0.6 mg/dL (0.7-1.3) Estimated GFR (Cockcroft-Gault) 142.6 BUN/Creatinine Ratio 30 (6-20) Glucose Level 121 mg/dL (70-99) Calcium Level 9.1 mg/dL (8.5-10.1) Total Bilirubin 0.4 mg/dL (0.2-1.0) Aspartate Amino Transf (AST/SGOT) 14 U/L (15-37) Alanine Aminotransferase (ALT/SGPT) 32 U/L (16-63) Alkaline Phosphatase 88 U/L (46-116) Total Protein 7.5 g/dL (6.4-8.2) Albumin 2.6 g/dL (3.4-5.0) Albumin/Globulin Ratio 0.5 (1.0-1.7) Test 08/25/20 06:02 08/25/20 06:41 Glucose (Fingerstick) 114 mg/dL (70-99) 125 mg/dL (70-99) Laboratory Tests Test 08/24/20 11:11 08/24/20 15:51 08/24/20 17:55 08/24/20 23:51 Glucose (Fingerstick) 121 mg/dL (70-99) 134 mg/dL (70-99) 118 mg/dL (70-99) White Blood Count 12.4 x10^3/uL (4.0-11.0) Red Blood Count 3.46 x10^6/uL (4.30-5.70) Hemoglobin 10.8 g/dL (13.0-17.5) Hematocrit 32.1 % (39.0-53.0) Mean Corpuscular Volume 93 fL (79-100) Mean Corpuscular Hemoglobin 31 pg (25-35) Mean Corpuscular Hemoglobin Concent 34 g/dL (31-37) Red Cell Distribution Width 17.5 % (11.5-14.5) Platelet Count 296 x10^3/uL (140-400) Neutrophils (%) (Auto) 70 % (31-73) Lymphocytes (%) (Auto) 15 % (24-48) Monocytes (%) (Auto) 8 % (0-9) Eosinophils (%) (Auto) 8 % (0-3) Basophils (%) (Auto) 0 % (0-3) Neutrophils # (Auto) 8.6 x10^3/uL (1.8-7.7) Lymphocytes # (Auto) 1.8 x10^3/uL (1.0-4.8) Monocytes # (Auto) 0.9 x10^3/uL (0.0-1.1) Eosinophils # (Auto) 0.9 x10^3/uL (0.0-0.7) Basophils # (Auto) 0.1 x10^3/uL (0.0-0.2) Sodium Level 134 mmol/L (136-145) Potassium Level 3.8 mmol/L (3.5-5.1) Chloride Level 98 mmol/L (98-107) Carbon Dioxide Level 29 mmol/L (21-32) Anion Gap 7 (6-14) Blood Urea Nitrogen 18 mg/dL (8-26) Creatinine 0.6 mg/dL (0.7-1.3) Estimated GFR (Cockcroft-Gault) 142.6 BUN/Creatinine Ratio 30 (6-20) Glucose Level 121 mg/dL (70-99) Calcium Level 9.1 mg/dL (8.5-10.1) Total Bilirubin 0.4 mg/dL (0.2-1.0) Aspartate Amino Transf (AST/SGOT) 14 U/L (15-37) Alanine Aminotransferase (ALT/SGPT) 32 U/L (16-63) Alkaline Phosphatase 88 U/L (46-116) Total Protein 7.5 g/dL (6.4-8.2) Albumin 2.6 g/dL (3.4-5.0) Albumin/Globulin Ratio 0.5 (1.0-1.7) Test 08/25/20 06:02 08/25/20 06:41 Glucose (Fingerstick) 114 mg/dL (70-99) 125 mg/dL (70-99) Comments CXR 08/20 IMPRESSION: small left effusion, bilateral infiltrates L>R CT CHEST 08/14 1. Marked interval enlargement of left lateral effusion. This could be causing some mass effect on the mediastinum. 2. Extensive pleural-parenchymal scarring and patchy airspace opacities in the lungs compatible with the sequelae of atypical pneumonia. Electronically signed by: Gosia Li MD (08/14/2020 1:28 PM) [id number] Impression . IMPRESSION: 1. Acute hypoxemic respiratory failure./ALI/ARDS due to COVID -19, much improved. 2. Acute pulmonary embolism , still some residual PE, on Eliquis 3. COVID-19 pnemonia.now with low grade fevers, suspect VAP/ less likely empyema ( based on analysis) 5. Hypertension. 6. History of bronchitis. 7. Elevated troponin. 8. Acute kidney injury. 9. Leukocytosis. 10. Covid-[address] chest 08/14 , large left effusion, improved post chest tube left, no sig drainage or increase effusion, Plan . Continue Trach shield 8 liters Oxygen Cap trach and / PMV as tolerated plan to downsize trach today, plan to decannulate on Thursday Status post tracheostomy 08/06 and S/P Peg tube placement 08/09 repeat CTA chest with residual PE. f/u, dopplers neg, re-started Eliquis 08/18 f/u chest x-ray as needed Follow cardiology recommendations Antibiotics per ID--AFB negative, repeat cultures negative, now on po ABX Doxy and Augmentin Has completed full course of remdesivir Continue tube feeding for nutritional support PT/OT and consult speech --failed swallow study remains n.p.o. DVT/GI prophylaxis,Protonix/eliquis Discussed with RN and RT Pt. is FULL CODE ALVIN RAMSEY MD Aug 25, 2020 10:09
--- NOTE | 2020-08-25 10:36 | PDOC ---
PROGRESS NOTES Date of Service: DATE: 08/25/20 TIME: 10:35 Chief Complaint Chief Complaint IMPRESSION Acute hypoxic respiratory failure requiring VENT SUPPORT STATUS post trach placement 08/06/2020 // Patient remains on trach shield Patient remains on trach shield with PMV No other concerns from nursing overnight S/P Peg tube placement 08/09 Acute hypoxic respiratory failure/ARDS /pneumonia Bilateral perihilar and basilar opacities, progressed in the left base. 07-26 COVID-19 Subsegmental bilateral PE Sepsis NSTEMI AKA Lactic acidosis Hyponatremia, RESOLVED hgb 6.5 07-27, transfused 1 unit prbc's - bled on eliquis, now on heparin GTT hypokalemia, on replacement Left pleural effusion interval development of gas in the left pleural effusion with pleural thickening, raising question of developing empyema. Repeat BC 08/06 staph pettenkori likely contaminant Enterobacter UTI and pneumonia Treated tracheal aspirate for afb stain and cultures negative so far f/u acute hepatitis panel HIV negative CT chest abdomen and pelvis reviewed, Lt base changes present pulm team following Plan: Appreciate pulmonology INPUT Heparin has been transitioned to Xarelto Appreciate ID recommendationscontinue Remdesivir and empiric antibiotics IV fluids Discussed with RN Antibiotics per ID-- off ABX, infectious disease following increasing leukocytosis has completed full course of remdesivir continue tube feeding for nutritional support tracheal aspirate for afb stain and cultures negative so far f/u acute hepatitis panel HIV negative CT chest abdomen and pelvis reviewed, Lt base changes present pulm team following tracheal aspirate for afb stain and cultures negative so far f/u acute hepatitis panel HIV negative CT chest abdomen and pelvis reviewed, Lt base changes present pulm team following HIV negative 27 MIN PT EXAM, CHART REVIEW, > 50% OF TIME SPENT WITH EXAM, CHART REVIEW, PT CARE COORDINATION History of Present Illness History of Present Illness Mr Soni is 49-year-old male with past medical history of hypertension, who presented to the ED 07/04/2020 with complaints of worsening shortness of breath over the past 5 days prior to admit. Associated sore throat, fatigue, and generalized weakness. Patient was reportedly tested for COVID-19 prior to admit, but he had negative test results. His symptoms acutely worsened yesterday. Upon arrival to the ER his oxygen saturation was 60% on room air. He was placed on BiPAP and admitted to the ICU. Patient was subsequently intubated due to worsening respiratory failure. s/p remdesivir 07/08/2020. Tracheostomy 08/06/2020, PEG 08/09/202008/12: No acute events overnight. Patient has T-max of 99.7. Currently on minimal vent settings.> 50% time spent in patient chart, labs, and imaging review and in discussion with RN and SW 08/13: Overnight Tmax 100.6F. Tires out easily on vent. 08/14: 101.5 F overnight. Stool sample on urine sample taken today. No growth on cultures as of yet. Still requiring vent support via his trach. No residuals on tube feeds. CT chest with left loculated effusion 08/15: 100.4 F overnight. Left Thoracostomy tube inserted today. Still requiring vent support via trach. 08/16: T-max 100.8 F overnight. Still requiring vent support via trach. Chest tube w/o air leak. 08/17: T [id number] overnight. Still requiring vent support via trach. Chest tube still with output, no air leak. 08/18: T-max 100.4 F overnight. On trach collar 30 L O2 currently. Minimal chest tube output, improved. CTPA still with left pulmonary embolism. Afebrile overnight. On trach collar 30 L O2 currently. Minimal chest tube output chest radiograph appears improved pigtail catheter in good position. 08/19/2020 No acute events overnight. Patient is on a trach collar currently. Chest tube in place with minimal output. Pending pleural fluid analysis. Patient's chart, labs, images were reviewed and discussed with RN 08/20/20 No acute events overnight. Tolerating trach collar. Minimal CT output.> 50% time spent in patient chart, labs, and imaging review and in discussion with RN and JAVIER 08/22/2020 No acute events overnight. Patient seen and examined in next recliner. Currently on trach collar and saturating well.> 50% time spent in patient chart, labs, and imaging review and in discussion with RN and JAVIER Plan: Cont eliquis Chest tube per pulm Ok to transfer to CVC on trach shield 08/11/2020 No acute events overnight. Patient with T-max of 100.8 overnight. Currently on minimal vent settings. Trached and pegged. Social work following for Medicare approval.> 50% time spent in patient chart, labs, and imaging review and in discussion with RN and SW 08/10/2020 no acute events overnight. Patient is on minimal vent settings. PEG tube placed yesterday. Will attempt to wean to extubate today.> 50% time spent in patient chart, labs, and imaging review and in discussion with RN and SW 08/09/2020 No acute events overnight. T-max of 100.0 F. Patient is on minimal ventilatory settings.> 50% time spent in patient chart, labs, and imaging review and in discussion with RN and SW 08/08/2020 Patient tolerating trach and ventilatory goldy support on 40% FiO2 and 5 of PEEP. Pending PEG tube placement tomorrow.> 50% time spent in patient chart, labs, and imaging review and in discussion with RN and SW 08/07/2020 No acute events overnight. Fever T-max of 101.1. Trach was placed yesterday. On minimal vent settings.> 50% time spent in patient chart, labs, and imaging review and in discussion with RN and SW 08/06/2020 No acute events overnight. Patient is afebrile. Currently on minimal vent settings. Pending trach today. Patient's chart, labs, images were reviewed and discussed with RN A total of 35 minutes of critical care time was spent in reviewing chart, labs, and images. Discussed with RN and SW. 08/05/2020 Patient seen and evaluated. No acute events, febrile overnight. Mechanically ventilated with FiO2 40%, PEEP 6. Plan for trach Thursday. 08/04/2020 Patient seen in Covid ICU. Still with low-grade fevers. Mechanically ventilated, FiO2 40%, PEEP 6. No acute change, plan for trach Thursday. 08/03/2020 Patient seen in [facility]- ICU. Still with low-grade fever. He remains on vent with FiO2 100%, PEEP 12. Plan for trach on Thursday, and PEG at some point after. 08/02/2020 Patient seen and evaluated in Covid ICU. He is febrile this morning. Still intubated mechanically ventilated with FiO2 40 %, PEEP 6. Plans for tracheostomy today. 08/01/2020 Patient seen in [facility] ICU. Patient remains slightly febrile. Mechanically ve ntilated, FiO2 45%, PEEP 6. Tracheostomy unable to perform yesterday, general surgery to attempt again today. Discussed with RN. 07/31/2020 Patient still spiking fevers. Patient remains on vent, FiO2 45%, PEEP 6. Tracheostomy tentatively planned for today. 07/30/2020 Patient seen in [place] [id number] ICU. He is febrile on vent, FiO2 45%, PEEP 6. Will attempt to speak with family about decision on trach and PEG tube. Discussed with RN. t max 102 f fio2 50% 07/21/2020 Patient no acute events reported overnight. Patient continues to require a lot of support from vent. Discussed with RN 09/19/2019 Patient continues to be pretty much the same , fio2 is at 70%, heparin 07/19/2020 Patient hypotensive today, we will follow recommendations from critical care rep. Vent management as per animal nutrition consultant, no other complaints. 07/18/2020 Patient with no acute events reported overnight, fio2 is now at 75% PEEP of 6, Vent management as per pulmonary animal nutrition consultant slight increase in temperature noted over the lat 24 hours. Will continue to follow 07/17/2020 Patient with no acute events reported overnight, contineus to require an fio2 of 80%, continue with supportive measures. 07/16/2020 Patient with no acute events reported overnight, patient continues to require quite a bit of FiO2 at 80%. Vent management as per animal nutrition consultant, will place a call to family members after rounding. Discussed with RN 07/15/2020 Patient seen and examined bedside in the ICU. FiO2 80% PEEP of 6.pH 7.56, PCO2 32, PO2 56, HCO3 28. Will adjust respiratory rate accordingly to correct pH.> 50% time spent in patient chart, labs, and imaging review and in discussion with RN and JAVIER 07/14/2020 Patient seen and examined bedside. FiO2 65% and PEEP of 6 on vent. ABG: pH 7.26, PCO2 77, PO2 114, HCO3 34. We will adjust respiratory rate or tidal volume to titrate pH.> 50% time spent in patient chart, labs, and imaging review and in discussion with RN and JAVIER 07/13/2020 No acute events overnight. Patient examined bedside sedated and intubated. FiO2 70% PEEP of 6. Improved ABGs.> 50% time spent in patient chart, labs, and imaging review and in discussion with RN and JAVIER 07/12/2020 Patient seen and examined in the ICU. Sedated and intubated. FiO2 65, PEEP of 8 with improved oxygenation. pH 7.4, PCO2 48, PO2 94, HCO3 30. +500 cc fluid balance.> 50% time spent in patient chart, labs, and imaging review and in discu ssion with LIANE and JAVIER 07/11/2020 Patient seen and examined bedside in the ICU. Patient continues to be intubated and sedated. FiO2 75%, PEEP of 10. pH 7.40, PCO2 44, PO2 is 135, HCO3 26. Can likely decrease FiO2 due to improved oxygenation. +173 cc in the past 24 hours 07/10/2020 Patient seen and examined bedside in ICU. Patient is intubated and sedated. FiO2 90%, PEEP of 10, respiratory rate of 30. ABG: pH is 7.41, PCO2 42, PO2 113, HCO3 26. 07/05: Patient seen in ICU, still intubated and sedated. COVID-19 pending. Patient remains on heparin infusion. Discussed with RN, will try to have central line placed per anesthesia. 07/06: Patient seen in ICU. Still FiO2 100% on vent and sedated. COVID-19 positive. Continue heparin infusion, Zosyn, steroids. 07/07: Covid positive patient seen in ICU. On vent with FiO2 100%, PEEP 10. Continue remdesivir, steroids, Zosyn. Continue to monitor 07/08: Patient seen in Covid ICU. Still on vent with FiO2 100%, PEEP 10. Afebrile. No acute events overnight. Continue steroids, antibiotics, and remdesivir. 07/09: Patient seen and examined in the ICU. Intubated and sedated. Vent se ttings FiO2 90%, PEEP of 10, respiratory rate of 30. Vitals Vitals Vital Signs Date Time Temp Pulse Resp B/P (MAP) Pulse Ox O2 Delivery O2 Flow Rate FiO2 08/25/20 08:00 Trach Collar 8.0 08/25/20 07:51 100 08/25/20 07:00 97.6 75 16 129/78 (95) 97.6 Physical Exam Physical Exam General alert awake HEENT normocephalic atraumatic , Neck trach present LUNGS: Clear anteriorly, left CTS HEART: S1-S2 no murmurs ABDOMEN: mildly distended, soft bowel sounds present Fernandez in place,fecal tube in place SKIN: No generalized rash Right upper extremity PICC line removed PIVs Clean Neuro alert awake General: Alert, No acute distress, Other (sedated ) Heart: Regular rate, No murmurs Lungs: Clear Extremities: No clubbing Skin: No significant lesion Labs LABS Laboratory Tests Test 08/24/20 11:11 08/24/20 15:51 08/24/20 17:55 08/24/20 23:51 Glucose (Fingerstick) 121 mg/dL (70-99) 134 mg/dL (70-99) 118 mg/dL (70-99) White Blood Count 12.4 x10^3/uL (4.0-11.0) Red Blood Count 3.46 x10^6/uL (4.30-5.70) Hemoglobin 10.8 g/dL (13.0-17.5) Hematocrit 32.1 % (39.0-53.0) Mean Corpuscular Volume 93 fL (79-100) Mean Corpuscular Hemoglobin 31 pg (25-35) Mean Corpuscular Hemoglobin Concent 34 g/dL (31-37) Red Cell Distribution Width 17.5 % (11.5-14.5) Platelet Count 296 x10^3/uL (140-400) Neutrophils (%) (Auto) 70 % (31-73) Lymphocytes (%) (Auto) 15 % (24-48) Monocytes (%) (Auto) 8 % (0-9) Eosinophils (%) (Auto) 8 % (0-3) Basophils (%) (Auto) 0 % (0-3) Neutrophils # (Auto) 8.6 x10^3/uL (1.8-7.7) Lymphocytes # (Auto) 1.8 x10^3/uL (1.0-4.8) Monocytes # (Auto) 0.9 x10^3/uL (0.0-1.1) Eosinophils # (Auto) 0.9 x10^3/uL (0.0-0.7) Basophils # (Auto) 0.1 x10^3/uL (0.0-0.2) Sodium Level 134 mmol/L (136-145) Potassium Level 3.8 mmol/L (3.5-5.1) Chloride Level 98 mmol/L (98-107) Carbon Dioxide Level 29 mmol/L (21-32) Anion Gap 7 (6-14) Blood Urea Nitrogen 18 mg/dL (8-26) Creatinine 0.6 mg/dL (0.7-1.3) Estimated GFR (Cockcroft-Gault) 142.6 BUN/Creatinine Ratio 30 (6-20) Glucose Level 121 mg/dL (70-99) Calcium Level 9.1 mg/dL (8.5-10.1) Total Bilirubin 0.4 mg/dL (0.2-1.0) Aspartate Amino Transf (AST/SGOT) 14 U/L (15-37) Alanine Aminotransferase (ALT/SGPT) 32 U/L (16-63) Alkaline Phosphatase 88 U/L (46-116) Total Protein 7.5 g/dL (6.4-8.2) Albumin 2.6 g/dL (3.4-5.0) Albumin/Globulin Ratio 0.5 (1.0-1.7) Test 08/25/20 06:02 08/25/20 06:41 Glucose (Fingerstick) 114 mg/dL (70-99) 125 mg/dL (70-99) Assessment and Plan Assessmemt and Plan Problems Medical Problems: (1) Acute respiratory failure with hypoxia Status: Acute (2) PRIYA (acute kidney injury) Status: Acute (3) Elevated troponin I level Status: Acute (4) Pulmonary emboli Status: Acute (5) Suspected COVID-19 virus infection Status: Acute Comment Review of Relevant I have reviewed the following items trino (where applicable) has been applied. Labs Laboratory Tests Test 08/23/20 11:48 08/23/20 17:57 08/23/20 23:25 08/24/20 06:34 Glucose (Fingerstick) 140 mg/dL (70-99) 135 mg/dL (70-99) 113 mg/dL (70-99) 116 mg/dL (70-99) Test 08/24/20 11:11 08/24/20 15:51 08/24/20 17:55 08/24/20 23:51 Glucose (Fingerstick) 121 mg/dL (70-99) 134 mg/dL (70-99) 118 mg/dL (70-99) White Blood Count 12.4 x10^3/uL (4.0-11.0) Red Blood Count 3.46 x10^6/uL (4.30-5.70) Hemoglobin 10.8 g/dL (13.0-17.5) Hematocrit 32.1 % (39.0-53.0) Mean Corpuscular Volume 93 fL (79-100) Mean Corpuscular Hemoglobin 31 pg (25-35) Mean Corpuscular Hemoglobin Concent 34 g/dL (31-37) Red Cell Distribution Width 17.5 % (11.5-14.5) Platelet Count 296 x10^3/uL (140-400) Neutrophils (%) (Auto) 70 % (31-73) Lymphocytes (%) (Auto) 15 % (24-48) Monocytes (%) (Auto) 8 % (0-9) Eosinophils (%) (Auto) 8 % (0-3) Basophils (%) (Auto) 0 % (0-3) Neutrophils # (Auto) 8.6 x10^3/uL (1.8-7.7) Lymphocytes # (Auto) 1.8 x10^3/uL (1.0-4.8) Monocytes # (Auto) 0.9 x10^3/uL (0.0-1.1) Eosinophils # (Auto) 0.9 x10^3/uL (0.0-0.7) Basophils # (Auto) 0.1 x10^3/uL (0.0-0.2) Sodium Level 134 mmol/L (136-145) Potassium Level 3.8 mmol/L (3.5-5.1) Chloride Level 98 mmol/L (98-107) Carbon Dioxide Level 29 mmol/L (21-32) Anion Gap 7 (6-14) Blood Urea Nitrogen 18 mg/dL (8-26) Creatinine 0.6 mg/dL (0.7-1.3) Estimated GFR (Cockcroft-Gault) 142.6 BUN/Creatinine Ratio 30 (6-20) Glucose Level 121 mg/dL (70-99) Calcium Level 9.1 mg/dL (8.5-10.1) Total Bilirubin 0.4 mg/dL (0.2-1.0) Aspartate Amino Transf (AST/SGOT) 14 U/L (15-37) Alanine Aminotransferase (ALT/SGPT) 32 U/L (16-63) Alkaline Phosphatase 88 U/L (46-116) Total Protein 7.5 g/dL (6.4-8.2) Albumin 2.6 g/dL (3.4-5.0) Albumin/Globulin Ratio 0.5 (1.0-1.7) Test 08/25/20 06:02 08/25/20 06:41 Glucose (Fingerstick) 114 mg/dL (70-99) 125 mg/dL (70-99) Laboratory Tests Test 08/24/20 11:11 08/24/20 15:51 08/24/20 17:55 08/24/20 23:51 Glucose (Fingerstick) 121 mg/dL (70-99) 134 mg/dL (70-99) 118 mg/dL (70-99) White Blood Count 12.4 x10^3/uL (4.0-11.0) Red Blood Count 3.46 x10^6/uL (4.30-5.70) Hemoglobin 10.8 g/dL (13.0-17.5) Hematocrit 32.1 % (39.0-53.0) Mean Corpuscular Volume 93 fL (79-100) Mean Corpuscular Hemoglobin 31 pg (25-35) Mean Corpuscular Hemoglobin Concent 34 g/dL (31-37) Red Cell Distribution Width 17.5 % (11.5-14.5) Platelet Count 296 x10^3/uL (140-400) Neutrophils (%) (Auto) 70 % (31-73) Lymphocytes (%) (Auto) 15 % (24-48) Monocytes (%) (Auto) 8 % (0-9) Eosinophils (%) (Auto) 8 % (0-3) Basophils (%) (Auto) 0 % (0-3) Neutrophils # (Auto) 8.6 x10^3/uL (1.8-7.7) Lymphocytes # (Auto) 1.8 x10^3/uL (1.0-4.8) Monocytes # (Auto) 0.9 x10^3/uL (0.0-1.1) Eosinophils # (Auto) 0.9 x10^3/uL (0.0-0.7) Basophils # (Auto) 0.1 x10^3/uL (0.0-0.2) Sodium Level 134 mmol/L (136-145) Potassium Level 3.8 mmol/L (3.5-5.1) Chloride Level 98 mmol/L (98-107) Carbon Dioxide Level 29 mmol/L (21-32) Anion Gap 7 (6-14) Blood Urea Nitrogen 18 mg/dL (8-26) Creatinine 0.6 mg/dL (0.7-1.3) Estimated GFR (Cockcroft-Gault) 142.6 BUN/Creatinine Ratio 30 (6-20) Glucose Level 121 mg/dL (70-99) Calcium Level 9.1 mg/dL (8.5-10.1) Total Bilirubin 0.4 mg/dL (0.2-1.0) Aspartate Amino Transf (AST/SGOT) 14 U/L (15-37) Alanine Aminotransferase (ALT/SGPT) 32 U/L (16-63) Alkaline Phosphatase 88 U/L (46-116) Total Protein 7.5 g/dL (6.4-8.2) Albumin 2.6 g/dL (3.4-5.0) Albumin/Globulin Ratio 0.5 (1.0-1.7) Test 08/25/20 06:02 08/25/20 06:41 Glucose (Fingerstick) 114 mg/dL (70-99) 125 mg/dL (70-99) Microbiology 08/15/20 Gram Stain - Final, Complete 08/15/20 Aerobic and Anaerobic Culture - Final, Complete 08/14/20 Urine Culture - Final, Complete 08/06/20 Blood Culture - Final, Complete 08/06/20 Antimicrobic Susceptibility - Final, Complete 08/04/20 AFB Specimen Processing Tissue - Final, Resulted 08/04/20 Acid Fast Bacilli Culture, Resulted Pending 08/04/20 Gram Stain - Final, Resulted 07/29/20 Gram Stain Evaluation - Final, Complete 07/29/20 Respiratory Culture - Final, Complete 07/29/20 Antimicrobic Susceptibility - Final, Complete Medications Current Medications Ceftriaxone Sodium (Rocephin) 1 gm 1X ONCE IVP Last administered on 07/03/20at 20:11; Start 07/03/20 at 19:15; Stop 07/03/20 at 19:19; Status DC Azithromycin (Zithromax) 500 mg 1X ONCE PO Last administered on 07/03/20at 20:11; Start 07/03/20 at 19:15; Stop 07/03/20 at 19:19; Status DC Sodium Chloride 1,000 ml @ 1,000 mls/hr 1X ONCE IV Last administered on 07/03/20at 20:11; Start 07/03/20 at 19:15; Stop 07/03/20 at 20:14; Status DC Sodium Chloride 1,000 ml @ 1,000 mls/hr 1X ONCE IV Last administered on 07/03/20at 19:15; Start 07/03/20 at 19:15; Stop 07/03/20 at 20:14; Status DC Iohexol (Omnipaque 350 Mg/ml) 90 ml 1X ONCE IV Last administered on 07/03/20at 21:00; Start 07/03/20 at 20:45; Stop 07/03/20 at 20:46; Status DC Info (CONTRAST GIVEN -- Rx MONITORING) 1 each PRN DAILY PRN MC SEE COMMENTS; Start 07/03/20 at 20:45; Stop 07/05/20 at 20:44; Status DC Enoxaparin Sodium (Lovenox 150mg Syringe) 150 mg 1X ONCE SQ Last administered on 07/03/20at 22:45; Start 07/03/20 at 23:00; Stop 07/03/20 at 23:01; Status DC Ondansetron HCl (Zofran) 4 mg PRN Q8HRS PRN IV NAUSEA/VOMITING 1ST CHOICE; Start 07/03/20 at 22:30; Stop 07/04/20 at 22:29; Status DC Morphine Sulfate (Morphine Sulfate) 2 mg PRN Q2HR PRN IV SEVERE PAIN 7-10; Start 07/03/20 at 22:30; Stop 07/04/20 at 22:29; Status DC Sodium Chloride 1,000 ml @ 100 mls/hr Q10H IV Last administered on 07/05/20at 00:35; Start 07/03/20 at 23:00; Stop 07/04/20 at 22:59; Status DC Acetaminophen (Tylenol) 650 mg PRN Q4HRS PRN PO FEVER > 100.3'F; Start 07/03/20 at 22:30; Stop 07/04/20 at 22:29; Status DC Throat Lozenges (Cepacol Sore Throat Lozenge) 1 lety PRN Q2HRS PRN PO SORE THROAT; Start 07/04/20 at 01:15 Furosemide (Lasix) 20 mg 1X ONCE IVP Last administered on 07/04/20at 10:10; Start 07/04/20 at 10:00; Stop 07/04/20 at 10:01; Status DC Succinylcholine Chloride (Anectine) 200 mg STK-MED ONCE .ROUTE ; Start 07/04/20 at 09:09; Stop 07/04/20 at 09:09; Status DC Etomidate (Amidate) 20 mg STK-MED ONCE IV ; Start 07/04/20 at 09:09; Stop 07/04/20 at 09:09; Status DC Fentanyl Citrate 30 ml @ 0 mls/hr CONT PRN IV SEE PROTOCOL Last administered on 07/04/20at 09:36; Start 07/04/20 at 09:15; Stop 07/04/20 at 14:36; Status DC Propofol 100 ml @ 0 mls/hr CONT PRN IV SEE PROTOCOL Last administered on 08/11/20at 06:42; Start 07/04/20 at 09:15; Stop 08/24/20 at 07:49; Status DC Midazolam HCl 100 ml @ 0 mls/hr CONT PRN IV SEE PROTOCOL Last administered on 08/10/20at 23:19; Start 07/04/20 at 09:15; Stop 08/24/20 at 07:49; Status DC Midazolam HCl (Versed) 5 mg 1X STAT IV Last administered on 07/04/20at 09:41; Start 07/04/20 at 09:21; Stop 07/04/20 at 09:22; Status DC Midazolam HCl (Versed) 5 mg STK-MED ONCE .ROUTE ; Start 07/04/20 at 09:21; Stop 07/04/20 at 09:21; Status DC Etomidate (Amidate) 10 mg 1X ONCE IV Last administered on 07/04/20at 09:37; Start 07/04/20 at 09:30; Stop 07/04/20 at 09:31; Status DC Succinylcholine Chloride (Anectine) 200 mg 1X ONCE IV Last administered on 07/04/20at 09:38; Start 07/04/20 at 09:30; Stop 07/04/20 at 09:31; Status DC Vecuronium Evans (Norcuron Bolus) 6 mg 1X ONCE IV Last administered on 07/04/20at 09:38; Start 07/04/20 at 09:45; Stop 07/04/20 at 09:46; Status DC Vecuronium Evans (Norcuron Bolus) 10 mg STK-MED ONCE IV ; Start 07/04/20 at 09:33; Stop 07/04/20 at 09:33; Status DC Pantoprazole Sodium (PROTONIX VIAL for IV PUSH) 40 mg DAILYAC IVP Last administered on 08/20/20at 10:29; Start 07/04/20 at 12:30; Stop 08/20/20 at 10:25; Status DC Methylprednisolone Sodium Succinate (SOLU-Medrol 40MG VIAL) 40 mg Q8HRS IV Last administered on 07/11/20at 05:41; Start 07/04/20 at 14:00; Stop 07/11/20 at 11:36; Status DC Piperacillin Sod/ Tazobactam Sod (Zosyn Per Pharmacy) 1 each PRN DAILY PRN MC SEE COMMENTS; Start 07/04/20 at 12:00; Stop 07/18/20 at 07:46; Status DC Heparin Sodium/ Dextrose 250 ml @ 0 mls/hr CONT PRN IV PER PROTOCOL Last administered on 07/15/20at 02:09; Start 07/04/20 at 12:00; Stop 07/16/20 at 12:09; Status DC Heparin Sodium (Porcine) (Heparin Sodium) 2,500 unit PRN Q6HRS PRN IV FOR UFH LEVEL LESS THAN 0.2 Last administered on 07/15/20at 09:19; Start 07/04/20 at 12:00; Stop 07/16/20 at 12:09; Status DC Heparin Sodium (Porcine) (Heparin Sodium) 1,250 unit PRN Q6HRS PRN IV FOR UFH LEVEL 0.2 - 0.29 Last administered on 07/05/20at 18:27; Start 07/04/20 at 12:00; Stop 07/16/20 at 12:09; Status DC Piperacillin Sod/ Tazobactam Sod 3.375 gm/Sodium Chloride 50 ml @ 100 mls/hr Q6HRS IV Last administered on 07/17/20at 05:10; Start 07/04/20 at 12:00; Stop 07/17/20 at 11:11; Status DC Zinc Sulfate (Orazinc) 220 mg DAILY PO Last administered on 08/25/20 09:07; Start 07/05/20 at 09:00 Ascorbic Acid (Vitamin C) 500 mg Q6HRS PO Last administered on 08/05/20at 06:07; Start 07/04/20 at 18:00; Stop 08/05/20 at 08:39; Status DC Vitamin D (Vitamin D3) 5,000 unit DAILY PO Last administered on 08/25/20at 09:08; Start 07/05/20 at 09:00 Vecuronium Evans (Norcuron Bolus) 6 mg 1X ONCE IV Last administered on 07/04/20at 13:27; Start 07/04/20 at 13:15; Stop 07/04/20 at 13:16; Status DC Norepinephrine Bitartrate 8 mg/ Dextrose 258 ml @ 16.061 mls/ hr CONT PRN IV PER PROTOCOL Last administered on 07/05/20at 00:33; Start 07/04/20 at 13:15; Stop 07/18/20 at 11:01; Status DC Fentanyl Citrate 55 ml @ 0 mls/hr CONT PRN IV SEE PROTOCOL Last administered on 08/11/20at 00:01; Start 07/04/20 at 14:45; Stop 08/24/20 at 07:50; Status DC Vecuronium Evans (Norcuron Bolus) 6 mg Q4H PRN IV OVERBREATHING VENT/out of sync Last administered on 07/20/20at 12:32; Start 07/04/20 at 16:45; Stop 07/22/20 at 09:34; Status DC Furosemide (Lasix) 40 mg 1X ONCE IVP Last administered on 07/05/20at 14:17; Start 07/05/20 at 13:30; Stop 07/05/20 at 13:31; Status DC Insulin Human Lispro (HumaLOG) 0-5 UNITS Q6HRS SQ Last administered on 07/11/20at 05:42; Start 07/05/20 at 18:00; Stop 07/11/20 at 07:54; Status DC Dextrose (Dextrose 50%-Water Syringe) 12.5 gm PRN Q15MIN PRN IV SEE COMMENTS; Start 07/05/20 at 14:15 Insulin Human Lispro (HumaLOG) 2 units 1X ONCE SQ Last administered on 07/05/20at 14:19; Start 07/05/20 at 14:30; Stop 07/05/20 at 14:31; Status DC Remdesivir 200 mg/ Sodium Chloride 210 ml @ 210 mls/hr 1X ONCE IV Last administered on 07/06/20at 14:51; Start 07/06/20 at 14:30; Stop 07/06/20 at 15:29; Status DC Remdesivir 100 mg/ Sodium Chloride 230 ml @ 460 mls/hr Q24H IV Last administered on 07/10/20at 13:59; Start 07/07/20 at 14:30; Stop 07/10/20 at 14:59; Status DC Insulin Human Lispro (HumaLOG) 0-9 UNITS TIDWMEALS SQ Last administered on 07/12/20at 11:31; Start 07/11/20 at 08:00; Stop 07/13/20 at 10:17; Status DC Methylprednisolone Sodium Succinate (SOLU-Medrol 40MG VIAL) 40 mg DAILY IV Last administered on 07/14/20at 07:57; Start 07/12/20 at 09:00; Stop 07/14/20 at 09:26; Status DC Acetaminophen (Tylenol) 650 mg PRN Q6HRS PRN PEG MILD PAIN / TEMP > 100.3'F Last administered on 08/24/20at 08:59; Start 07/12/20 at 12:00 Vecuronium Evans 50 mg/ Miscellaneous 50 ml @ 4.094 mls/ hr CONT PRN IV SEE I/O RECORD Last administered on 07/18/20at 01:56; Start 07/12/20 at 14:45; Stop 07/22/20 at 09:34; Status DC Insulin Human Lispro (HumaLOG) 0-9 UNITS Q6HRS SQ Last administered on 07/25/20at 11:49; Start 07/13/20 at 12:00; Stop 07/27/20 at 10:41; Status DC Methylprednisolone Sodium Succinate (SOLU-Medrol 40MG VIAL) 40 mg Q12HR IV Last administered on 07/16/20at 09:57; Start 07/14/20 at 21:00; Stop 07/16/20 at 12:10; Status DC Info (Anti-Coagulation Monitoring By Pharmacy) 1 each PRN DAILY PRN MC SEE COMMENTS Last administered on 08/24/20at 07:52; Start 07/16/20 at 08:15 Apixaban (Eliquis) 10 mg BID PO Last administered on 07/22/20at 20:39; Start 07/16/20 at 13:00; Stop 07/22/20 at 21:01; Status DC Methylprednisolone Sodium Succinate (SOLU-Medrol 40MG VIAL) 40 mg DAILY IV Last administered on 07/16/20at 12:22; Start 07/16/20 at 13:00; Stop 07/17/20 at 08:24; Status DC Apixaban (Eliquis) 5 mg BID PO Last administered on 07/26/20at 20:31; Start 07/23/20 at 09:00; Stop 07/27/20 at 12:19; Status DC Methylprednisolone Sodium Succinate (SOLU-Medrol 40MG VIAL) 40 mg Q12HR IV Last administered on 07/20/20at 07:54; Start 07/17/20 at 09:00; Stop 07/20/20 at 10:20; Status DC Multi-Ingred Cream/Lotion/Oil/ Oint (Artificial Tears Eye Ointment) 1 wenceslao PRN Q1HR PRN OU DRY EYE Last administered on 07/27/20at 17:19; Start 07/18/20 at 10:45 Furosemide (Lasix) 40 mg 1X ONCE IVP Last administered on 07/19/20at 00:55; Start 07/19/20 at 00:45; Stop 07/19/20 at 00:46; Status DC Methylprednisolone Sodium Succinate (SOLU-Medrol 40MG VIAL) 40 mg DAILY IV Last administered on 07/22/20at 09:08; Start 07/21/20 at 09:00; Stop 07/22/20 at 09:36; Status DC Lorazepam (Ativan Inj) 2 mg PRN Q1HR PRN IV SEE COMMENTS Last administered on 08/18/20at 00:45; Start 07/21/20 at 12:30 Vecuronium Evans (Norcuron Bolus) 6 mg PRN Q6HRS PRN IV SEDATION Last administered on 07/22/20at 12:02; Start 07/22/20 at 12:00; Stop 07/26/20 at 21:14; Status DC Piperacillin Sod/ Tazobactam Sod 4.5 gm/Sodium Chloride 100 ml @ 200 mls/hr Q6HRS IV Last administered on 07/26/20at 05:36; Start 07/24/20 at 12:00; Stop 07/26/20 at 10:53; Status DC Potassium Chloride/Water 100 ml @ 100 mls/hr Q1H IV ; Start 07/24/20 at 15:30; Stop 07/24/20 at 19:29; Status UNV Potassium Chloride/Water 100 ml @ 100 mls/hr Q1H IV ; Start 07/24/20 at 15:30; Stop 07/24/20 at 17:29; Status UNV Potassium Chloride/Water 100 ml @ 100 mls/hr Q1H IV ; Start 07/24/20 at 15:30; Stop 07/24/20 at 23:29; Status UNV Potassium Chloride/Water 100 ml @ 100 mls/hr Q1H IV ; Start 07/24/20 at 15:30; Stop 07/24/20 at 19:29; Status UNV Potassium Chloride/Water 100 ml @ 100 mls/hr Q1H IV ; Start 07/24/20 at 15:30; Stop 07/25/20 at 03:29; Status UNV Potassium Chloride/Water 100 ml @ 100 mls/hr Q1HR IV ; Start 07/24/20 at 16:00; Stop 07/24/20 at 21:59; Status UNV Magnesium Sulfate 100 ml @ 50 mls/hr DAILY IV ; Start 07/25/20 at 09:00; Stop 07/28/20 at 08:59; Status UNV Sodium Phosphate 20 mmol/Sodium Chloride 256.6667 ml @ 62.5 mls/hr 1X ONCE IV ; Start 07/24/20 at 15:30; Stop 07/24/20 at 19:36; Status UNV Sodium Phosphate 30 mmol/Sodium Chloride 260 ml @ 62.5 mls/hr 1X ONCE IV ; Start 07/24/20 at 15:30; Stop 07/24/20 at 19:39; Status UNV Potassium Phosphate 13.6 mmol/Sodium Chloride 254.5333 ml @ 62.5 mls/hr Q4H IV ; Start 07/24/20 at 15:30; Stop 07/25/20 at 03:29; Status UNV Info (Icu Electrolyte Protocol) 1 ea CONT PRN PRN MC SEE COMMENTS; Start 07/24/20 at 15:45 Vancomycin HCl (Vanco Per Pharmacy) 1 each PRN DAILY PRN MC SEE COMMENTS Last administered on 07/26/20at 08:53; Start 07/25/20 at 07:00; Stop 07/26/20 at 21:14; Status DC Vancomycin HCl 2 gm/Sodium Chloride 500 ml @ 250 mls/hr 1X ONCE IV Last administered on 07/25/20at 07:06; Start 07/25/20 at 07:00; Stop 07/25/20 at 08:59 ; Status DC Vancomycin HCl 1.25 gm/Sodium Chloride 250 ml @ 167 mls/hr Q8H IV Last administered on 07/25/20at 22:44; Start 07/25/20 at 15:00; Stop 07/26/20 at 07:31; Status DC Vancomycin HCl (Vancomycin Trough Level) 1 each 1X ONCE MC Last administered on 07/26/20at 06:13; Start 07/26/20 at 06:30; Stop 07/26/20 at 06:31; Status DC Vancomycin HCl 1.5 gm/Sodium Chloride 500 ml @ 250 mls/hr Q8H IV Last administered on 07/26/20at 15:42; Start 07/26/20 at 08:00; Stop 07/26/20 at 21:14; Status DC Vancomycin HCl (Vancomycin Trough Level) 1 each 1X ONCE MC ; Start 07/27/20 at 07:30; Stop 07/27/20 at 07:31; Status Cancel Meropenem 500 mg/ Sodium Chloride 50 ml @ 100 mls/hr Q6HRS IV Last administered on 08/02/20at 06:02; Start 07/26/20 at 12:00; Stop 08/02/20 at 07:46; Status DC Potassium Chloride/Water 100 ml @ 100 mls/hr Q1H IV Last administered on 07/27/20at 11:29; Start 07/27/20 at 10:30; Stop 07/27/20 at 12:29; Status DC Insulin Human Lispro (HumaLOG) 0-9 UNITS [id number] SQ Last administered on 07/27/20 at 18:17; Start 07/27/20 at 18:00; Stop 08/01/20 at 17:17; Status DC Linezolid/Dextrose 300 ml @ 300 mls/hr Q12HR IV Last administered on 07/30/20at 21:47; Start 07/27/20 at 12:30; Stop 07/31/20 at 07:36; Status DC Vecuronium Evans (Norcuron Bolus) 6 mg PRN Q6HRS ONCE IV ; Start 07/28/20 at 08:45; Stop 07/28/20 at 09:11; Status DC Vecuronium Evans (Norcuron Bolus) 6 mg 1X ONCE IV Last administered on 07/28/20at 09:34; Start 07/28/20 at 09:30; Stop 07/28/20 at 09:31; Status DC Vecuronium Evans (Norcuron Bolus) 6 mg PRN Q6HRS PRN IV Vent Management Last administered on 08/09/20at 15:05; Start 07/28/20 at 23:00; Stop 08/24/20 at 07:50; Status DC Furosemide (Lasix) 20 mg 1X ONCE IVP Last administered on 07/29/20at 06:35; Start 07/29/20 at 06:30; Stop 07/29/20 at 06:31; Status DC Potassium Bicarbonate (Potassium Effervescent Tablet) 20 meq 1X ONCE NG Last administered on 07/29/20at 06:36; Start 07/29/20 at 06:30; Stop 07/29/20 at 06:31; Status DC Rocuronium Evans (Zemuron) 100 mg STK-MED ONCE .ROUTE ; Start 07/31/20 at 12:35; Stop 07/31/20 at 12:35; Status DC Cellulose (Surgicel Fibrillar 1x2) 1 each STK-MED ONCE .ROUTE ; Start 07/31/20 at 13:08; Stop 07/31/20 at 13:08; Status DC Bupivacaine HCl/ Epinephrine Bitart (Sensorcain-Epi 0.5%-1:407022 Mpf) 30 ml 1X ONCE INJ ; Start 07/31/20 at 13:45; Stop 07/31/20 at 13:46; Status DC Ondansetron HCl (Zofran) 4 mg PRN Q6HRS PRN IVP NAUSEA/VOMITING; Start 08/01/20 at 07:00; Stop 08/02/20 at 06:59; Status DC Fentanyl Citrate (Fentanyl 2ml Vial) 25 mcg PRN Q5MIN PRN IVP MILD PAIN 1-3; Start 08/01/20 at 07:00; Stop 08/02/20 at 06:59; Status DC Fentanyl Citrate (Fentanyl 2ml Vial) 50 mcg PRN Q5MIN PRN IVP MODERATE TO SEVERE PAIN; Start 08/01/20 at 07:00; Stop 08/02/20 at 06:59; Status DC Morphine Sulfate (Morphine Sulfate) 1 mg PRN Q10MIN PRN IVP SEVERE PAIN 7-10; Start 08/01/20 at 07:00; Stop 08/02/20 at 06:59; Status DC Ringer's Solution 1,000 ml @ 30 mls/hr Q24H IV ; Start 08/01/20 at 07:00; Stop 08/01/20 at 18:59; Status DC Lidocaine HCl (Xylocaine-Mpf 1% 2ml Vial) 2 ml 1X PRN PRN ID IV START; Start 08/01/20 at 07:00; Stop 08/02/20 at 06:59; Status DC Hydromorphone HCl (Dilaudid) 0.5 mg PRN Q10MIN PRN IVP SEV PAIN, Second choice; Start 08/01/20 at 07:00; Stop 08/02/20 at 06:59; Status DC Prochlorperazine Edisylate (Compazine) 5 mg PACU PRN PRN IVP NAUSEA, MRX1; Start 08/01/20 at 07:00; Stop 08/02/20 at 06:59; Status DC Daptomycin 470 mg/ Sodium Chloride 50 ml @ 100 mls/hr Q24H IV Last administered on 08/05/20at 09:24; Start 08/01/20 at 09:00; Stop 08/05/20 at 11:20; Status DC Ondansetron HCl (Zofran) 4 mg PRN Q6HRS PRN IV NAUSEA/VOMITING; Start 08/02/20 at 07:00; Stop 08/03/20 at 06:59; Status DC Fentanyl Citrate (Fentanyl 2ml Vial) 25 mcg PRN Q5MIN PRN IV MILD PAIN 1-3; St art 08/02/20 at 07:00; Stop 08/03/20 at 06:59; Status DC Fentanyl Citrate (Fentanyl 2ml Vial) 50 mcg PRN Q5MIN PRN IV MODERATE TO SEVERE PAIN; Start 08/02/20 at 07:00; Stop 08/03/20 at 06:59; Status DC Morphine Sulfate (Morphine Sulfate) 1 mg PRN Q10MIN PRN IV SEVERE PAIN 7-10; Start 08/02/20 at 07:00; Stop 08/03/20 at 06:59; Status DC Ringer's Solution 1,000 ml @ 30 mls/hr Q24H IV Last administered on 08/02/20at 07:53; Start 08/02/20 at 07:00; Stop 08/02/20 at 18:59; Status DC Lidocaine HCl (Xylocaine-Mpf 1% 2ml Vial) 2 ml PRN 1X PRN ID PRIOR TO IV START; Start 08/02/20 at 07:00; Stop 08/03/20 at 06:59; Status DC Hydromorphone HCl (Dilaudid) 0.5 mg PRN Q10MIN PRN IV SEV PAIN, Second choice; Start 08/02/20 at 07:00; Stop 08/03/20 at 06:59; Status DC Prochlorperazine Edisylate (Compazine) 5 mg PACU PRN PRN IV NAUSEA, MRX1; Start 08/02/20 at 07:00; Stop 08/03/20 at 06:59; Status DC Levofloxacin/ Dextrose 150 ml @ 100 mls/hr Q24H IV Last administered on 08/05/20at 07:16; Start 08/02/20 at 09:00; Stop 08/05/20 at 11:20; Status DC Rocuronium Evans (Zemuron) 50 mg STK-MED ONCE .ROUTE ; Start 08/02/20 at 10 :12; Stop 08/02/20 at 10:13; Status DC Heparin Sodium/ Dextrose 250 ml @ 0 mls/hr CONT PRN IV PER PROTOCOL; Start 08/03/20 at 10:45; Status UNV Heparin Sodium (Porcine) (Heparin Sodium) 2,300 unit PRN Q6HRS PRN IV FOR UFH LEVEL LESS THAN 0.2; Start 08/03/20 at 10:45; Stop 08/03/20 at 10:54; Status DC Heparin Sodium (Porcine) (Heparin Sodium) 1,150 unit PRN Q6HRS PRN IV FOR UFH LEVEL 0.2 - 0.29; Start 08/03/20 at 10:45; Stop 08/03/20 at 10:54; Status DC Heparin Sodium/ Dextrose 250 ml @ 0 mls/hr CONT PRN IV PER PROTOCOL Last administered on 08/11/20at 12:04; Start 08/03/20 at 11:00; Stop 08/11/20 at 14:21; Status DC Heparin Sodium (Porcine) (Heparin Sodium) 2,000 unit PRN Q6HRS PRN IV FOR PTT 40 - 58 Last administered on 08/08/20at 12:41; Start 08/03/20 at 11:00; Stop 08/11/20 at 14:21; Status DC Heparin Sodium (Porcine) (Heparin Sodium) 1,000 unit PRN Q6HRS PRN IV FOR PTT 59 - 78 Last administered on 08/04/20at 00:12; Start 08/03/20 at 11:00; Stop 08/11/20 at 14:21; Status DC Ondansetron HCl (Zofran) 4 mg PRN Q6HRS PRN IV NAUSEA/VOMITING; Start 08/06/20 at 07:00; Stop 08/07/20 at 06:59; Status DC Fentanyl Citrate (Fentanyl 2ml Vial) 25 mcg PRN Q5MIN PRN IV MILD PAIN 1-3; Start 08/06/20 at 07:00; Stop 08/07/20 at 06:59; Status DC Fentanyl Citrate (Fentanyl 2ml Vial) 50 mcg PRN Q5MIN PRN IV MODERATE TO SEVERE PAIN; Start 08/06/20 at 07:00; Stop 08/07/20 at 06:59; Status DC Morphine Sulfate (Morphine Sulfate) 1 mg PRN Q10MIN PRN IV SEVERE PAIN 7-10; Start 08/06/20 at 07:00; Stop 08/07/20 at 06:59; Status DC Ringer's Solution 1,000 ml @ 30 mls/hr Q24H IV ; Start 08/06/20 at 07:00; Stop 08/06/20 at 18:59; Status DC Lidocaine HCl (Xylocaine-Mpf 1% 2ml Vial) 2 ml PRN 1X PRN ID PRIOR TO IV START; Start 08/06/20 at 07:00; Stop 08/07/20 at 06:59; Status DC Hydromorphone HCl (Dilaudid) 0.5 mg PRN Q10MIN PRN IV SEV PAIN, Second choice; Start 08/06/20 at 07:00; Stop 08/07/20 at 06:59; Status DC Prochlorperazine Edisylate (Compazine) 5 mg PACU PRN PRN IV NAUSEA, MRX1; Star t 08/06/20 at 07:00; Stop 08/07/20 at 06:59; Status DC Bupivacaine HCl/ Epinephrine Bitart (Sensorcain-Epi 0.5%-1:703582 Mpf) 30 ml 1X ONCE INJ Last administered on 08/06/20at 15:15; Start 08/06/20 at 06:30; Stop 08/06/20 at 06:31; Status DC Rocuronium Evans (Zemuron) 50 mg STK-MED ONCE .ROUTE ; Start 08/06/20 at 11:02; Stop 08/06/20 at 11:03; Status DC Fentanyl Citrate (Fentanyl 2ml Vial) 100 mcg STK-MED ONCE .ROUTE ; Start 08/06/20 at 11:03; Stop 08/06/20 at 11:03; Status DC Cellulose (Surgicel Hemostat 4x8) 1 each STK-MED ONCE .ROUTE ; Start 08/06/20 at 14:10; Stop 08/06/20 at 14:11; Status DC Sevoflurane (Ultane) 30 ml STK-MED ONCE IH ; Start 08/06/20 at 15:18; Stop 08/06/20 at 15:19; Status DC Rocuronium Evans (Zemuron) 50 mg STK-MED ONCE .ROUTE ; Start 08/06/20 at 15:19; Stop 08/06/20 at 15:19; Status DC Acetaminophen (Tylenol Supp) 650 mg PRN Q6HRS PRN TN MILD PAIN / TEMP > 100.3'F Last administered on 08/07/20at 19:28; Start 08/06/20 at 20:45 Sodium Chloride 1,000 ml @ 100 mls/hr Q10H IV Last administered on 08/11/20at 16:30; Start 08/07/20 at 12:00; Stop 08/12/20 at 10:50; Status DC Cefazolin Sodium/ Dextrose 50 ml @ 100 mls/hr 1X ONCE IV Last administered on 08/09/20at 11:04; Start 08/09/20 at 11:00; Stop 08/09/20 at 11:29; Status DC Ringer's Solution 1,000 ml @ 30 mls/hr Q24H IV Last administered on 08/09/20at 06:11; Start 08/09/20 at 06:00; Stop 08/09/20 at 17:59; Status DC Prochlorperazine Edisylate (Compazine) 5 mg PACU PRN PRN IVP NAUSEA, MRX1; Start 08/09/20 at 06:00; Stop 08/10/20 at 05:59; Status DC Dexmedetomidine HCl 400 mcg/ Sodium Chloride 100 ml @ 0 mls/hr CONT PRN IV PER PROTOCOL Last administered on 08/17/20at 11:29; Start 08/11/20 at 10:00; Stop 08/24/20 at 07:50; Status DC Potassium Chloride/Water 100 ml @ 100 mls/hr Q1H IV ; Start 08/11/20 at 12:30; Stop 08/11/20 at 16:29; Status UNV Potassium Bicarbonate (Potassium Effervescent Tablet) 40 meq Q2H PO Last administered on 08/11/20at 14:58; Start 08/11/20 at 12:45; Stop 08/11/20 at 14:46; Status DC Vancomycin HCl (Vanco Per Pharmacy) 1 each PRN DAILY PRN MC SEE COMMENTS Last administered on 08/13/20at 15:09; Start 08/11/20 at 13:30; Stop 08/14/20 at 08:03; Status DC Vancomycin HCl 1.75 gm/Sodium Chloride 500 ml @ 250 mls/hr 1X ONCE IV Last administered on 08/11/20at 14:46; Start 08/11/20 at 14:00; Stop 08/11/20 at 15:59; Status DC Heparin Sodium/ Dextrose 250 ml @ 0 mls/hr CONT PRN IV PER PROTOCOL Last administered on 08/18/20at 00:46; Start 08/11/20 at 14:30; Stop 08/18/20 at 10:00; Status DC Heparin Sodium (Porcine) (Heparin Sodium) 2,450 unit PRN Q6HRS PRN IV FOR UFH LEVEL LESS THAN 0.2 Last administered on 08/13/20at 05:39; Start 08/11/20 at 14:30; Stop 08/18/20 at 10:00; Status DC Heparin Sodium (Porcine) (Heparin Sodium) 1,250 unit PRN Q6HRS PRN IV FOR UFH LEVEL 0.2 - 0.29 Last administered on 08/14/20at 22:56; Start 08/11/20 at 14:3 0; Stop 08/18/20 at 10:00; Status DC Vancomycin HCl 1.5 gm/Sodium Chloride 500 ml @ 250 mls/hr Q8H IV Last administered on 08/12/20at 14:49; Start 08/11/20 at 23:00; Stop 08/12/20 at 15:13; Status DC Vancomycin HCl (Vancomycin Trough Level) 1 each 1X ONCE MC Last administered on 08/12/20at 14:30; Start 08/12/20 at 14:30; Stop 08/12/20 at 14:31; Status DC Potassium Chloride/Water 100 ml @ 100 mls/hr Q1H IV Last administered on 08/12/20at 14:50; Start 08/12/20 at 05:00; Stop 08/12/20 at 12:59; Status DC Vancomycin HCl 1.75 gm/Sodium Chloride 500 ml @ 250 mls/hr Q8H IV Last administered on 08/14/20at 07:04; Start 08/12/20 at 23:00; Stop 08/14/20 at 08:01; Status DC Vancomycin HCl (Vancomycin Trough Level) 1 each 1X ONCE MC ; Start 08/13/20 at 14:30; Stop 08/13/20 at 14:31; Status DC Potassium Chloride/Water 100 ml @ 100 mls/hr Q1H IV Last administered on 07/25 09/12at 02:02; Start 08/12/20 at 22:00; Stop 08/13/20 at 01:59; Status DC Prochlorperazine Edisylate (Compazine) 10 mg PRN Q6HRS PRN IV NAUSEA/VOMITING 1ST CHOICE Last administered on 08/19/20at 13:34; Start 08/12/20 at 21:30 Meclizine HCl (Antivert) 25 mg PRN DAILY PRN PO DIZZINESS; Start 08/12/20 at 23:00 Potassium Chloride/Water 100 ml @ 100 mls/hr Q1H IV Last administered on 08/13/20at 08:53; Start 08/13/20 at 02:00; Stop 08/13/20 at 05:59; Status DC Magnesium Sulfate 100 ml @ 50 mls/hr DAILY IV Last administered on 08/15/20at 08:43; Start 08/13/20 at 00:00; Stop 08/16/20 at 00:00; Status DC Potassium Chloride/Water 100 ml @ 100 mls/hr Q1H IV Last administered on 08/13/20at 18:10; Start 08/13/20 at 13:00; Stop 08/13/20 at 16:59; Status DC Insulin Human Lispro (HumaLOG) 0-7 UNITS Q6HRS SQ Last administered on 08/19/20at 11:38; Start 08/14/20 at 12:00 Dextrose (Dextrose 50%-Water Syringe) 12.5 gm PRN Q15MIN PRN IV SEE COMMENTS; Start 08/14/20 at 08:00; Status UNV Meropenem 500 mg/ Sodium Chloride 50 ml @ 100 mls/hr Q6HRS IV Last administered on 08/23/20at 05:54; Start 08/14/20 at 09:00; Stop 08/23/20 at 10:55; Status DC Linezolid (Zyvox) 600 mg BID PO Last administered on 08/19/20at 08:22; Start 08/14/20 at 09:00; Stop 08/19/20 at 12:00; Status DC Potassium Bicarbonate (Potassium Effervescent Tablet) 40 meq 1X ONCE PEG Last administered on 08/15/20at 10:25; Start 08/15/20 at 09:45; Stop 08/15/20 at 09:46; Status DC Lidocaine HCl (Buffered Lidocaine 1%) 3 ml STK-MED ONCE .ROUTE ; Start 08/15/20 at 12:41; Stop 08/15/20 at 12:41; Status DC Lidocaine HCl (Buffered Lidocaine 1%) 6 ml 1X ONCE INJ Last administered on 08/15/20at 13:07; Start 08/15/20 at 13:00; Stop 08/15/20 at 13:01; Status DC Fentanyl Citrate (Fentanyl 2ml Vial) 100 mcg STK-MED ONCE .ROUTE ; Start 08/15/20 at 13:27; Stop 08/15/20 at 13:28; Status DC Fentanyl Citrate (Fentanyl 2ml Vial) 50 mcg PRN Q4HRS PRN IVP PAIN Last administered on 08/22/20at 03:47; Start 08/15/20 at 14:15 Fentanyl Citrate (Fentanyl 2ml Vial) 50 mcg 1X ONCE IVP Last administered on 08/15/20at 14:29; Start 08/15/20 at 14:15; Stop 08/15/20 at 14:18; Status DC Iohexol (Omnipaque 350 Mg/ml) 100 ml 1X ONCE IV Last administered on 08/17/20at 05:45; Start 08/17/20 at 05:45; Stop 08/17/20 at 05:46; Status DC Info (CONTRAST GIVEN -- Rx MONITORING) 1 each PRN DAILY PRN MC SEE COMMENTS; Start 08/17/20 at 05:45; Stop 08/19/20 at 05:44; Status DC Apixaban (Eliquis) 5 mg BID PO Last administered on 08/25/20 09:08; Start 08/18/20 at 10:00 Lansoprazole (Prevacid) 30 mg DAILY FT Last administered on 08/25/20 09:07; Start 08/21/20 at 09:00 Doxycycline Hyclate (Vibra-Tab) 100 mg BID PO Last administered on 08/25/20 09:07; Start 08/21/20 at 10:00 Amoxicillin/ Clavulanate Potassium (Augmentin 875/ 125mg) 1 tab BID PO Last administered on 08/25/20 09:07; Start 08/23/20 at 21:00 Vitals/I & O Vital Sign - Last 24 Hours 08/24/20 08/24/20 08/24/20 08/24/20 10:38 14:22 19:00 19:15 Temp 98.9 99.1 98.2 98.9 99.1 98.2 Pulse 75 88 76 Resp 20 20 18 B/P (MAP) 122/79 (93) 104/68 (80) 111/66 (81) Pulse Ox 99 100 99 O2 Delivery Tracheal Collar Tracheal Collar trach shield Trach Collar O2 Flow Rate 8.0 8.0 8.0 08/24/20 08/25/20 08/25/20 08/25/20 23:06 03:00 07:00 07:51 Temp 98.0 98.3 97.6 98.0 98.3 97.6 Pulse 70 63 75 Resp 18 16 16 B/P (MAP) 115/69 (84) 110/67 (81) 129/78 (95) Pulse Ox 99 98 100 O2 Delivery trach shield High Flow Nasal Cannula High Flow Nasal Cannula Tracheal Collar O2 Flow Rate 8.0 8.0 8.0 08/25/20 08:00 O2 Delivery Trach Collar O2 Flow Rate 8.0 Intake and Output 08/24/20 08/24/20 08/25/20 15:00 23:00 07:00 Intake Total 100 ml 100 ml 459 ml Output Total 900 ml Balance 100 ml -800 ml 459 ml Justicifation of Admission Dx: Justifications for Admission: Justification of Admission Dx: Yes REESE CASEY MD Aug 25, 2020 10:36
--- NOTE | 2020-08-25 10:56 | PDOC ---
Infectious Disease Note Subjective: Subjective Pt doing better afebrile Vital Signs: Vital Signs Vital Signs Date Time Temp Pulse Resp B/P (MAP) Pulse Ox O2 Delivery O2 Flow Rate FiO2 08/25/20 08:00 Trach Collar 8.0 08/25/20 07:51 100 08/25/20 07:00 97.6 75 16 129/78 (95) 97.6 Physical Exam: PHYSICAL EXAM General alert awake HEENT normocephalic atraumatic , Neck trach present LUNGS: Clear anteriorly, left CTS HEART: S1-S2 no murmurs ABDOMEN: mildly distended, soft bowel sounds present Fernandez in place,fecal tube in place SKIN: No generalized rash Right upper extremity PICC line removed PIVs Clean Neuro alert awake Medications: Inpatient Meds: Current Medications Medications (Trade) Dose Ordered Sig/Natalee Start Time Stop Time Status Last Admin Dose Admin Acetaminophen (Tylenol Supp) 650 mg PRN Q6HRS PRN 08/06/20 20:45 08/07/20 19:28 650 MG Acetaminophen (Tylenol) 650 mg PRN Q6HRS PRN 07/12/20 12:00 08/24/20 08:59 650 MG Amoxicillin/ Clavulanate Potassium (Augmentin 875/ 125mg) 1 tab BID 08/23/20 21:00 08/25/20 09:07 1 TAB Apixaban (Eliquis) 5 mg BID 08/18/20 10:00 08/25/20 09:08 5 MG Ascorbic Acid (Vitamin C) 500 mg Q6HRS 07/04/20 18:00 08/05/20 08:39 DC 08/05/20 06:07 500 MG Azithromycin (Zithromax) 500 mg 1X ONCE 07/03/20 19:15 07/03/20 19:19 DC 07/03/20 20:11 500 MG Bupivacaine HCl/ Epinephrine Bitart (Sensorcain-Epi 0.5%-1:734562 Mpf) 30 ml 1X ONCE 08/06/20 06:30 08/06/20 06:31 DC 08/06/20 15:15 1 ML Cefazolin Sodium/ Dextrose 50 ml @ 100 mls/hr 1X ONCE 08/09/20 11:00 08/09/20 11:29 DC 08/09/20 11:04 100 MLS/HR Ceftriaxone Sodium (Rocephin) 1 gm 1X ONCE 07/03/20 19:15 07/03/20 19:19 DC 07/03/20 20:11 1 GM Cellulose (Surgicel Fibrillar 1x2) 1 each STK-MED ONCE 07/31/20 13:08 07/31/20 13:08 DC Cellulose (Surgicel Hemostat 4x8) 1 each STK-MED ONCE 08/06/20 14:10 08/06/20 14:11 DC Daptomycin 470 mg/ Sodium Chloride 50 ml @ 100 mls/hr Q24H 08/01/20 09:00 08/05/20 11:20 DC 08/05/20 09:24 100 MLS/HR Dexmedetomidine HCl 400 mcg/ Sodium Chloride 100 ml @ 0 mls/hr CONT PRN 08/11/20 10:00 08/24/20 07:50 DC 08/17/20 11:29 4.1 MLS/HR Dextrose (Dextrose 50%-Water Syringe) 12.5 gm PRN Q15MIN PRN 08/14/20 08:00 UNV Doxycycline Hyclate (Vibra-Tab) 100 mg BID 08/21/20 10:00 08/25/20 09:07 100 MG Enoxaparin Sodium (Lovenox 150mg Syringe) 150 mg 1X ONCE 07/03/20 23:00 07/03/20 23:01 DC 07/03/20 22:45 150 MG Etomidate (Amidate) 10 mg 1X ONCE 07/04/20 09:30 07/04/20 09:31 DC 07/04/20 09:37 10 MG Fentanyl Citrate (Fentanyl 2ml Vial) 50 mcg 1X ONCE 08/15/20 14:15 08/15/20 14:18 DC 08/15/20 14:29 50 MCG Furosemide (Lasix) 20 mg 1X ONCE 07/29/20 06:30 07/29/20 06:31 DC 07/29/20 06:35 20 MG Heparin Sodium (Porcine) (Heparin Sodium) 1,250 unit PRN Q6HRS PRN 08/11/20 14:30 08/18/20 10:00 DC 08/14/20 22:56 1,250 UNIT Heparin Sodium/ Dextrose 250 ml @ 0 mls/hr CONT PRN 08/11/20 14:30 08/18/20 10:00 DC 08/18/20 00:46 26.2 MLS/HR Hydromorphone HCl (Dilaudid) 0.5 mg PRN Q10MIN PRN 08/06/20 07:00 08/07/20 06:59 DC Info (Anti-Coagulation Monitoring By Pharmacy) 1 each PRN DAILY PRN 07/16/20 08:15 08/24/20 07:52 1 EACH Info (CONTRAST GIVEN -- Rx MONITORING) 1 each PRN DAILY PRN 08/17/20 05:45 08/19/20 05:44 DC Info (Icu Electrolyte Protocol) 1 ea CONT PRN PRN 07/24/20 15:45 Insulin Human Lispro (HumaLOG) 0-7 UNITS Q6HRS 08/14/20 12:00 08/19/20 11:38 3 UNITS Iohexol (Omnipaque 350 Mg/ml) 100 ml 1X ONCE 08/17/20 05:45 08/17/20 05:46 DC 08/17/20 05:45 100 ML Lansoprazole (Prevacid) 30 mg DAILY 08/21/20 09:00 08/25/20 09:07 30 MG Levofloxacin/ Dextrose 150 ml @ 100 mls/hr Q24H 08/02/20 09:00 08/05/20 11:20 DC 08/05/20 07:16 100 MLS/HR Lidocaine HCl (Buffered Lidocaine 1%) 6 ml 1X ONCE 08/15/20 13:00 08/15/20 13:01 DC 08/15/20 13:07 5 ML Lidocaine HCl (Xylocaine-Mpf 1% 2ml Vial) 2 ml PRN 1X PRN 08/06/20 07:00 08/07/20 06:59 DC Linezolid (Zyvox) 600 mg BID 08/14/20 09:00 08/19/20 12:00 DC 08/19/20 08:22 600 MG Linezolid/Dextrose 300 ml @ 300 mls/hr Q12HR 07/27/20 12:30 07/31/20 07:36 DC 07/30/20 21:47 300 MLS/HR Lorazepam (Ativan Inj) 2 mg PRN Q1HR PRN 07/21/20 12:30 08/18/20 00:45 2 MG Magnesium Sulfate 100 ml @ 50 mls/hr DAILY 08/13/20 00:00 08/16/20 00:00 DC 08/15/20 08:43 50 MLS/HR Meclizine HCl (Antivert) 25 mg PRN DAILY PRN 08/12/20 23:00 Meropenem 500 mg/ Sodium Chloride 50 ml @ 100 mls/hr Q6HRS 08/14/20 09:00 08/23/20 10:55 DC 08/23/20 05:54 100 MLS/HR Methylprednisolone Sodium Succinate (SOLU-Medrol 40MG VIAL) 40 mg DAILY 07/21/20 09:00 07/22/20 09:36 DC 07/22/20 09:08 40 MG Midazolam HCl (Versed) 5 mg STK-MED ONCE 07/04/20 09:21 07/04/20 09:21 DC Morphine Sulfate (Morphine Sulfate) 1 mg PRN Q10MIN PRN 08/06/20 07:00 08/07/20 06:59 DC Multi-Ingred Cream/Lotion/Oil/ Oint (Artificial Tears Eye Ointment) 1 wenceslao PRN Q1HR PRN 07/18/20 10:45 07/27/20 17:19 1 WENCESLAO Norepinephrine Bitartrate 8 mg/ Dextrose 258 ml @ 16.061 mls/ hr CONT PRN 07/04/20 13:15 07/18/20 11:01 DC 07/05/20 00:33 28.909 MLS/HR Ondansetron HCl (Zofran) 4 mg PRN Q6HRS PRN 08/06/20 07:00 08/07/20 06:59 DC Pantoprazole Sodium (PROTONIX VIAL for IV PUSH) 40 mg DAILYAC 07/04/20 12:30 08/20/20 10:25 DC 08/20/20 10:29 40 MG Piperacillin Sod/ Tazobactam Sod (Zosyn Per Pharmacy) 1 each PRN DAILY PRN 07/04/20 12:00 07/18/20 07:46 DC Piperacillin Sod/ Tazobactam Sod 3.375 gm/Sodium Chloride 50 ml @ 100 mls/hr Q6HRS 07/04/20 12:00 07/17/20 11:11 DC 07/17/20 05:10 100 MLS/HR Piperacillin Sod/ Tazobactam Sod 4.5 gm/Sodium Chloride 100 ml @ 200 mls/hr Q6HRS 07/24/20 12:00 07/26/20 10:53 DC 07/26/20 05:36 200 MLS/HR Potassium Bicarbonate (Potassium Effervescent Tablet) 40 meq 1X ONCE 08/15/20 09:45 08/15/20 09:46 DC 08/15/20 10:25 40 MEQ Potassium Chloride/Water 100 ml @ 100 mls/hr Q1H 08/13/20 13:00 08/13/20 16:59 DC 08/13/20 18:10 100 MLS/HR Potassium Phosphate 13.6 mmol/Sodium Chloride 254.5333 ml @ 62.5 mls/hr Q4H 07/24/20 15:30 07/25/20 03:29 UNV Prochlorperazine Edisylate (Compazine) 10 mg PRN Q6HRS PRN 08/12/20 21:30 08/19/20 13:34 10 MG Propofol 100 ml @ 0 mls/hr CONT PRN 07/04/20 09:15 08/24/20 07:49 DC 08/11/20 06:42 14.9 MLS/HR Remdesivir 100 mg/ Sodium Chloride 230 ml @ 460 mls/hr Q24H 07/07/20 14:30 07/10/20 14:59 DC 07/10/20 13:59 460 MLS/HR Remdesivir 200 mg/ Sodium Chloride 210 ml @ 210 mls/hr 1X ONCE 07/06/20 14:30 07/06/20 15:29 DC 07/06/20 14:51 210 MLS/HR Ringer's Solution 1,000 ml @ 30 mls/hr Q24H 08/09/20 06:00 08/09/20 17:59 DC 08/09/20 06:11 30 MLS/HR Rocuronium [place] (Zemuron) 50 mg STK-MED ONCE 08/06/20 15:19 08/06/20 15:19 DC Sevoflurane (Ultane) 30 ml STK-MED ONCE 08/06/20 15:18 08/06/20 15:19 DC Sodium Chloride 1,000 ml @ 100 mls/hr Q10H 08/07/20 12:00 08/12/20 10:50 DC 08/11/20 16:30 100 MLS/HR Sodium Phosphate 20 mmol/Sodium Chloride 256.6667 ml @ 62.5 mls/hr 1X ONCE 07/24/20 15:30 07/24/20 19:36 UNV Sodium Phosphate 30 mmol/Sodium Chloride 260 ml @ 62.5 mls/hr 1X ONCE 07/24/20 15:30 07/24/20 19:39 UNV Succinylcholine Chloride (Anectine) 200 mg 1X ONCE 07/04/20 09:30 07/04/20 09:31 DC 07/04/20 09:38 200 MG Throat Lozenges (Cepacol Sore Throat Lozenge) 1 lety PRN Q2HRS PRN 07/04/20 01:15 Vancomycin HCl (Vanco Per Pharmacy) 1 each PRN DAILY PRN 08/11/20 13:30 08/14/20 08:03 DC 08/13/20 15:09 1 EACH Vancomycin HCl (Vancomycin Trough Level) 1 each 1X ONCE 08/13/20 14:30 08/13/20 14:31 DC Vancomycin HCl 1.25 gm/Sodium Chloride 250 ml @ 167 mls/hr Q8H 07/25/20 15:00 07/26/20 07:31 DC 07/25/20 22:44 167 MLS/HR Vancomycin HCl 1.5 gm/Sodium Chloride 500 ml @ 250 mls/hr Q8H 08/11/20 23:00 08/12/20 15:13 DC 08/12/20 14:49 250 MLS/HR Vancomycin HCl 1.75 gm/Sodium Chloride 500 ml @ 250 mls/hr Q8H 08/12/20 23:00 08/14/20 08:01 DC 08/14/20 07:04 250 MLS/HR Vancomycin HCl 2 gm/Sodium Chloride 500 ml @ 250 mls/hr 1X ONCE 07/25/20 07:00 07/25/20 08:59 DC 07/25/20 07:06 250 MLS/HR Vecuronium [place] 50 mg/ Miscellaneous 50 ml @ 4.094 mls/ hr CONT PRN 07/12/20 14:45 07/22/20 09:34 DC 07/18/20 01:56 7.5 MLS/HR Vecuronium [place] (Norcuron Bolus) 6 mg PRN Q6HRS PRN 07/28/20 23:00 08/24/20 07:50 DC 08/09/20 15:05 6 MG Vitamin D (Vitamin D3) 5,000 unit DAILY 07/05/20 09:00 08/25/20 09:08 5,000 UNIT Zinc Sulfate (Orazinc) 220 mg DAILY 07/05/20 09:00 08/25/20 09:07 220 MG Labs: Lab Laboratory Tests Test 08/24/20 11:11 08/24/20 15:51 08/24/20 17:55 08/24/20 23:51 Glucose (Fingerstick) 121 mg/dL (70-99) 134 mg/dL (70-99) 118 mg/dL (70-99) White Blood Count 12.4 x10^3/uL (4.0-11.0) Red Blood Count 3.46 x10^6/uL (4.30-5.70) Hemoglobin 10.8 g/dL (13.0-17.5) Hematocrit 32.1 % (39.0-53.0) Mean Corpuscular Volume 93 fL (79-100) Mean Corpuscular Hemoglobin 31 pg (25-35) Mean Corpuscular Hemoglobin Concent 34 g/dL (31-37) Red Cell Distribution Width 17.5 % (11.5-14.5) Platelet Count 296 x10^3/uL (140-400) Neutrophils (%) (Auto) 70 % (31-73) Lymphocytes (%) (Auto) 15 % (24-48) Monocytes (%) (Auto) 8 % (0-9) Eosinophils (%) (Auto) 8 % (0-3) Basophils (%) (Auto) 0 % (0-3) Neutrophils # (Auto) 8.6 x10^3/uL (1.8-7.7) Lymphocytes # (Auto) 1.8 x10^3/uL (1.0-4.8) Monocytes # (Auto) 0.9 x10^3/uL (0.0-1.1) Eosinophils # (Auto) 0.9 x10^3/uL (0.0-0.7) Basophils # (Auto) 0.1 x10^3/uL (0.0-0.2) Sodium Level 134 mmol/L (136-145) Potassium Level 3.8 mmol/L (3.5-5.1) Chloride Level 98 mmol/L (98-107) Carbon Dioxide Level 29 mmol/L (21-32) Anion Gap 7 (6-14) Blood Urea Nitrogen 18 mg/dL (8-26) Creatinine 0.6 mg/dL (0.7-1.3) Estimated GFR (Cockcroft-Gault) 142.6 BUN/Creatinine Ratio 30 (6-20) Glucose Level 121 mg/dL (70-99) Calcium Level 9.1 mg/dL (8.5-10.1) Total Bilirubin 0.4 mg/dL (0.2-1.0) Aspartate Amino Transf (AST/SGOT) 14 U/L (15-37) Alanine Aminotransferase (ALT/SGPT) 32 U/L (16-63) Alkaline Phosphatase 88 U/L (46-116) Total Protein 7.5 g/dL (6.4-8.2) Albumin 2.6 g/dL (3.4-5.0) Albumin/Globulin Ratio 0.5 (1.0-1.7) Test 08/25/20 06:02 08/25/20 06:41 Glucose (Fingerstick) 114 mg/dL (70-99) 125 mg/dL (70-99) Objective: Assessment: Left pleural effusion status post CTS August 15 Left thoracocentesis with CTS pH 7.73, cell count, glucose, protein .ldh noted, cult neg Fevers Source ?? Leukocytosis improved COVID-19 positive. Status post remdesivir, steroids Acute hypoxic respiratory failure/ARDS /pneumonia H/O Bilateral pulmonary emboli. Hypertension. Bacteremia 07/23 08/25 bottles staph hominis likely contaminant Repeat blood cultures staph capitis likely contaminant Repeat BC 08/06 staph pettenkori likely contaminant Enterobacter UTI and pneumonia Treated Plan: Plan of Care cont augmentin and doxy tracheal aspirate for afb stain and cultures negative so far acute hepatitis panel and HIV negative CT chest abdomen and pelvis reviewed, Lt base changes present pulm team following D/W JAMI LUCAS MD Aug 25, 2020 10:56
[2020-08-25 11:00] VITALS: BP 125/78
[2020-08-25 15:00] VITALS: BP 105/66
[2020-08-25 19:30] VITALS: BP 105/63
[2020-08-25 23:40] VITALS: BP 121/70
[2020-08-26 03:45] VITALS: BP 118/70
[2020-08-26] MEDS: INSULIN LISPRO 300 UNITS/3 ML VIAL. SQ SCH ×5 (06:00→23:47)
[2020-08-26 07:00] VITALS: BP 118/74
[2020-08-26] MEDS: CHOLECALCIFEROL (VITAMIN D3) 5,000 UNIT CAPSULE PO SCH (08:52)
[2020-08-26] MEDS: ZINC SULFATE 220 MG CAPSULE. PO SCH (08:52)
[2020-08-26] MEDS: APIXABAN 5 MG TABLET. PO SCH ×2 (08:52→22:29)
[2020-08-26] MEDS: LANSOPRAZOLE 30 MG TAB.RAP.DR FT SCH (08:52)
[2020-08-26] MEDS: AMOXICILLIN/K CLAV 875/125MG TABLET. PO SCH ×2 (08:52→22:29)
[2020-08-26] MEDS: DOXYCYCLINE HYCLATE 100 MG TABLET PO SCH ×2 (08:52→22:29)
--- NOTE | 2020-08-26 10:45 | PDOC ---
Infectious Disease Note Subjective: Subjective Patient feels better Remains afebrile Vital Signs: Vital Signs Vital Signs Date Time Temp Pulse Resp B/P (MAP) Pulse Ox O2 Delivery O2 Flow Rate FiO2 08/26/20 07:00 98.3 81 16 118/74 (89) 99 Tracheal Collar 8.0 98.3 Physical Exam: PHYSICAL EXAM General alert awake HEENT normocephalic atraumatic , Neck trach present LUNGS: Clear anteriorly, left CTS HEART: S1-S2 no murmurs ABDOMEN: mildly distended, soft bowel sounds present Fernandez in place,fecal tube in place SKIN: No generalized rash Right upper extremity PICC line removed PIVs Clean Neuro alert awake Medications: Inpatient Meds: Current Medications Medications (Trade) Dose Ordered Sig/Natalee Start Time Stop Time Status Last Admin Dose Admin Acetaminophen (Tylenol Supp) 650 mg PRN Q6HRS PRN 08/06/20 20:45 08/07/20 19:28 650 MG Acetaminophen (Tylenol) 650 mg PRN Q6HRS PRN 07/12/20 12:00 08/24/20 08:59 650 MG Amoxicillin/ Clavulanate Potassium (Augmentin 875/ 125mg) 1 tab BID 08/23/20 21:00 08/26/20 08:52 1 TAB Apixaban (Eliquis) 5 mg BID 08/18/20 10:00 08/26/20 08:52 5 MG Ascorbic Acid (Vitamin C) 500 mg Q6HRS 07/04/20 18:00 08/05/20 08:39 DC 08/05/20 06:07 500 MG Azithromycin (Zithromax) 500 mg 1X ONCE 07/03/20 19:15 07/03/20 19:19 DC 07/03/20 20:11 500 MG Bupivacaine HCl/ Epinephrine Bitart (Sensorcain-Epi 0.5%-1:478365 Mpf) 30 ml 1X ONCE 08/06/20 06:30 08/06/20 06:31 DC 08/06/20 15:15 1 ML Cefazolin Sodium/ Dextrose 50 ml @ 100 mls/hr 1X ONCE 08/09/20 11:00 08/09/20 11:29 DC 08/09/20 11:04 100 MLS/HR Ceftriaxone Sodium (Rocephin) 1 gm 1X ONCE 07/03/20 19:15 07/03/20 19:19 DC 07/03/20 20:11 1 GM Cellulose (Surgicel Fibrillar 1x2) 1 each STK-MED ONCE 07/31/20 13:08 07/31/20 13:08 DC Cellulose (Surgicel Hemostat 4x8) 1 each STK-MED ONCE 08/06/20 14:10 08/06/20 14:11 DC Daptomycin 470 mg/ Sodium Chloride 50 ml @ 100 mls/hr Q24H 08/01/20 09:00 08/05/20 11:20 DC 08/05/20 09:24 100 MLS/HR Dexmedetomidine HCl 400 mcg/ Sodium Chloride 100 ml @ 0 mls/hr CONT PRN 08/11/20 10:00 08/24/20 07:50 DC 08/17/20 11:29 4.1 MLS/HR Dextrose (Dextrose 50%-Water Syringe) 12.5 gm PRN Q15MIN PRN 08/14/20 08:00 UNV Doxycycline Hyclate (Vibra-Tab) 100 mg BID 08/21/20 10:00 08/26/20 08:52 100 MG Enoxaparin Sodium (Lovenox 150mg Syringe) 150 mg 1X ONCE 07/03/20 23:00 07/03/20 23:01 DC 07/03/20 22:45 150 MG Etomidate (Amidate) 10 mg 1X ONCE 07/04/20 09:30 07/04/20 09:31 DC 07/04/20 09:37 10 MG Fentanyl Citrate (Fentanyl 2ml Vial) 50 mcg 1X ONCE 08/15/20 14:15 08/15/20 14:18 DC 08/15/20 14:29 50 MCG Furosemide (Lasix) 20 mg 1X ONCE 07/29/20 06:30 07/29/20 06:31 DC 07/29/20 06:35 20 MG Heparin Sodium (Porcine) (Heparin Sodium) 1,250 unit PRN Q6HRS PRN 08/11/20 14:30 08/18/20 10:00 DC 08/14/20 22:56 1,250 UNIT Heparin Sodium/ Dextrose 250 ml @ 0 mls/hr CONT PRN 08/11/20 14:30 08/18/20 10:00 DC 08/18/20 00:46 26.2 MLS/HR Hydromorphone HCl (Dilaudid) 0.5 mg PRN Q10MIN PRN 08/06/20 07:00 08/07/20 06:59 DC Info (Anti-Coagulation Monitoring By Pharmacy) 1 each PRN DAILY PRN 07/16/20 08:15 08/24/20 07:52 1 EACH Info (CONTRAST GIVEN -- Rx MONITORING) 1 each PRN DAILY PRN 08/17/20 05:45 08/19/20 05:44 DC Info (Icu Electrolyte Protocol) 1 ea CONT PRN PRN 07/24/20 15:45 Insulin Human Lispro (HumaLOG) 0-7 UNITS Q6HRS 08/14/20 12:00 08/19/20 11:38 3 UNITS Iohexol (Omnipaque 350 Mg/ml) 100 ml 1X ONCE 08/17/20 05:45 08/17/20 05:46 DC 08/17/20 05:45 100 ML Lansoprazole (Prevacid) 30 mg DAILY 08/21/20 09:00 08/26/20 08:52 30 MG Levofloxacin/ Dextrose 150 ml @ 100 mls/hr Q24H 08/02/20 09:00 08/05/20 11:20 DC 08/05/20 07:16 100 MLS/HR Lidocaine HCl (Buffered Lidocaine 1%) 6 ml 1X ONCE 08/15/20 13:00 08/15/20 13:01 DC 08/15/20 13:07 5 ML Lidocaine HCl (Xylocaine-Mpf 1% 2ml Vial) 2 ml PRN 1X PRN 08/06/20 07:00 08/07/20 06:59 DC Linezolid (Zyvox) 600 mg BID 08/14/20 09:00 08/19/20 12:00 DC 08/19/20 08:22 600 MG Linezolid/Dextrose 300 ml @ 300 mls/hr Q12HR 07/27/20 12:30 07/31/20 07:36 DC 07/30/20 21:47 300 MLS/HR Lorazepam (Ativan Inj) 2 mg PRN Q1HR PRN 07/21/20 12:30 08/18/20 00:45 2 MG Magnesium Sulfate 100 ml @ 50 mls/hr DAILY 08/13/20 00:00 08/16/20 00:00 DC 08/15/20 08:43 50 MLS/HR Meclizine HCl (Antivert) 25 mg PRN DAILY PRN 08/12/20 23:00 Meropenem 500 mg/ Sodium Chloride 50 ml @ 100 mls/hr Q6HRS 08/14/20 09:00 08/23/20 10:55 DC 08/23/20 05:54 100 MLS/HR Methylprednisolone Sodium Succinate (SOLU-Medrol 40MG VIAL) 40 mg DAILY 07/21/20 09:00 07/22/20 09:36 DC 07/22/20 09:08 40 MG Midazolam HCl (Versed) 5 mg STK-MED ONCE 07/04/20 09:21 07/04/20 09:21 DC Morphine Sulfate (Morphine Sulfate) 1 mg PRN Q10MIN PRN 08/06/20 07:00 08/07/20 06:59 DC Multi-Ingred Cream/Lotion/Oil/ Oint (Artificial Tears Eye Ointment) 1 wenceslao PRN Q1HR PRN 07/18/20 10:45 07/27/20 17:19 1 WENCESLAO Norepinephrine Bitartrate 8 mg/ Dextrose 258 ml @ 16.061 mls/ hr CONT PRN 07/04/20 13:15 07/18/20 11:01 DC 07/05/20 00:33 28.909 MLS/HR Ondansetron HCl (Zofran) 4 mg PRN Q6HRS PRN 08/06/20 07:00 08/07/20 06:59 DC Pantoprazole Sodium (PROTONIX VIAL for IV PUSH) 40 mg DAILYAC 07/04/20 12:30 08/20/20 10:25 DC 08/20/20 10:29 40 MG Piperacillin Sod/ Tazobactam Sod (Zosyn Per Pharmacy) 1 each PRN DAILY PRN 07/04/20 12:00 07/18/20 07:46 DC Piperacillin Sod/ Tazobactam Sod 3.375 gm/Sodium Chloride 50 ml @ 100 mls/hr Q6HRS 07/04/20 12:00 07/17/20 11:11 DC 07/17/20 05:10 100 MLS/HR Piperacillin Sod/ Tazobactam Sod 4.5 gm/Sodium Chloride 100 ml @ 200 mls/hr Q6HRS 07/24/20 12:00 07/26/20 10:53 DC 07/26/20 05:36 200 MLS/HR Potassium Bicarbonate (Potassium Effervescent Tablet) 40 meq 1X ONCE 08/15/20 09:45 08/15/20 09:46 DC 08/15/20 10:25 40 MEQ Potassium Chloride/Water 100 ml @ 100 mls/hr Q1H 08/13/20 13:00 08/13/20 16:59 DC 08/13/20 18:10 100 MLS/HR Potassium Phosphate 13.6 mmol/Sodium Chloride 254.5333 ml @ 62.5 mls/hr Q4H 07/24/20 15:30 07/25/20 03:29 UNV Prochlorperazine Edisylate (Compazine) 10 mg PRN Q6HRS PRN 08/12/20 21:30 08/19/20 13:34 10 MG Propofol 100 ml @ 0 mls/hr CONT PRN 07/04/20 09:15 08/24/20 07:49 DC 08/11/20 06:42 14.9 MLS/HR Remdesivir 100 mg/ Sodium Chloride 230 ml @ 460 mls/hr Q24H 07/07/20 14:30 07/10/20 14:59 DC 07/10/20 13:59 460 MLS/HR Remdesivir 200 mg/ Sodium Chloride 210 ml @ 210 mls/hr 1X ONCE 07/06/20 14:30 07/06/20 15:29 DC 07/06/20 14:51 210 MLS/HR Ringer's Solution 1,000 ml @ 30 mls/hr Q24H 08/09/20 06:00 08/09/20 17:59 DC 08/09/20 06:11 30 MLS/HR Rocuronium [place] (Zemuron) 50 mg STK-MED ONCE 08/06/20 15:19 08/06/20 15:19 DC Sevoflurane (Ultane) 30 ml STK-MED ONCE 08/06/20 15:18 08/06/20 15:19 DC Sodium Chloride 1,000 ml @ 100 mls/hr Q10H 08/07/20 12:00 08/12/20 10:50 DC 08/11/20 16:30 100 MLS/HR Sodium Phosphate 20 mmol/Sodium Chloride 256.6667 ml @ 62.5 mls/hr 1X ONCE 07/24/20 15:30 07/24/20 19:36 UNV Sodium Phosphate 30 mmol/Sodium Chloride 260 ml @ 62.5 mls/hr 1X ONCE 07/24/20 15:30 07/24/20 19:39 UNV Succinylcholine Chloride (Anectine) 200 mg 1X ONCE 07/04/20 09:30 07/04/20 09:31 DC 07/04/20 09:38 200 MG Throat Lozenges (Cepacol Sore Throat Lozenge) 1 lety PRN Q2HRS PRN 07/04/20 01:15 Vancomycin HCl (Vanco Per Pharmacy) 1 each PRN DAILY PRN 08/11/20 13:30 08/14/20 08:03 DC 08/13/20 15:09 1 EACH Vancomycin HCl (Vancomycin Trough Level) 1 each 1X ONCE 08/13/20 14:30 08/13/20 14:31 DC Vancomycin HCl 1.25 gm/Sodium Chloride 250 ml @ 167 mls/hr Q8H 07/25/20 15:00 07/26/20 07:31 DC 07/25/20 22:44 167 MLS/HR Vancomycin HCl 1.5 gm/Sodium Chloride 500 ml @ 250 mls/hr Q8H 08/11/20 23:00 08/12/20 15:13 DC 08/12/20 14:49 250 MLS/HR Vancomycin HCl 1.75 gm/Sodium Chloride 500 ml @ 250 mls/hr Q8H 08/12/20 23:00 08/14/20 08:01 DC 08/14/20 07:04 250 MLS/HR Vancomycin HCl 2 gm/Sodium Chloride 500 ml @ 250 mls/hr 1X ONCE 07/25/20 07:00 07/25/20 08:59 DC 07/25/20 07:06 250 MLS/HR Vecuronium [place] 50 mg/ Miscellaneous 50 ml @ 4.094 mls/ hr CONT PRN 07/12/20 14:45 07/22/20 09:34 DC 07/18/20 01:56 7.5 MLS/HR Vecuronium [place] (Norcuron Bolus) 6 mg PRN Q6HRS PRN 07/28/20 23:00 08/24/20 07:50 DC 08/09/20 15:05 6 MG Vitamin D (Vitamin D3) 5,000 unit DAILY 07/05/20 09:00 08/26/20 08:52 5,000 UNIT Zinc Sulfate (Orazinc) 220 mg DAILY 07/05/20 09:00 08/26/20 08:52 220 MG Labs: Lab Laboratory Tests Test 08/25/20 11:41 08/25/20 18:07 08/25/20 23:49 08/26/20 06:22 Glucose (Fingerstick) 130 mg/dL (70-99) 123 mg/dL (70-99) 111 mg/dL (70-99) 115 mg/dL (70-99) Objective: Assessment: Left pleural effusion status post CTS August 15 Left thoracocentesis with CTS pH 7.73, cell count, glucose, protein .ldh noted, cult neg Fevers Source ?? Leukocytosis improved COVID-19 positive. Status post remdesivir, steroids Acute hypoxic respiratory failure/ARDS /pneumonia H/O Bilateral pulmonary emboli. Hypertension. Bacteremia 07/23 08/25 bottles staph hominis likely contaminant Repeat blood cultures staph capitis likely contaminant Repeat BC 08/06 staph pettenkori likely contaminant Enterobacter UTI and pneumonia Treated Plan: Plan of Care cont augmentin and doxy tracheal aspirate for afb stain and cultures negative so far acute hepatitis panel and HIV negative CT chest abdomen and pelvis reviewed, Lt base changes present D/W JAMI LUCAS MD Aug 26, 2020 10:45
[2020-08-26 11:00] VITALS: BP 126/77
--- NOTE | 2020-08-26 11:08 | PDOC ---
PROGRESS NOTES Date of Service: DATE: 08/26/20 TIME: 11:08 Chief Complaint Chief Complaint IMPRESSION Acute hypoxic respiratory failure requiring VENT SUPPORT STATUS post trach placement 08/06/2020 // Patient remains on trach shield Patient remains on trach shield with PMV No other concerns from nursing overnight S/P Peg tube placement 08/09 Acute hypoxic respiratory failure/ARDS /pneumonia Bilateral perihilar and basilar opacities, progressed in the left base. 07-26 COVID-19 Subsegmental bilateral PE Sepsis NSTEMI AKA Lactic acidosis Hyponatremia, RESOLVED hgb 6.5 07-27, transfused 1 unit prbc's - bled on eliquis, now on heparin GTT hypokalemia, on replacement Left pleural effusion interval development of gas in the left pleural effusion with pleural thickening, raising question of developing empyema. Repeat BC 08/06 staph pettenkori likely contaminant Enterobacter UTI and pneumonia Treated tracheal aspirate for afb stain and cultures negative so far f/u acute hepatitis panel HIV negative CT chest abdomen and pelvis reviewed, Lt base changes present pulm team following Plan: Appreciate pulmonology INPUT Heparin has been transitioned to Xarelto Appreciate ID recommendationscontinue Remdesivir and empiric antibiotics IV fluids Discussed with RN Antibiotics per ID-- off ABX, infectious disease following increasing leukocytosis has completed full course of remdesivir continue tube feeding for nutritional support tracheal aspirate for afb stain and cultures negative so far f/u acute hepatitis panel HIV negative CT chest abdomen and pelvis reviewed, Lt base changes present pulm team following tracheal aspirate for afb stain and cultures negative so far f/u acute hepatitis panel HIV negative CT chest abdomen and pelvis reviewed, Lt base changes present pulm team following HIV negative cont augmentin and doxy 29 MIN PT EXAM, CHART REVIEW, > 50% OF TIME SPENT WITH EXAM, CHART REVIEW, PT CARE COORDINATION History of Present Illness History of Present Illness Mr Soni is 49-year-old male with past medical history of hypertension, who presented to the ED 07/04/2020 with complaints of worsening shortness of breath over the past 5 days prior to admit. Associated sore throat, fatigue, and generalized weakness. Patient was reportedly tested for COVID-19 prior to admit, but he had negative test results. His symptoms acutely worsened yesterday. Upon arrival to the ER his oxygen saturation was 60% on room air. He was placed on BiPAP and admitted to the ICU. Patient was subsequently intubated due to worsening respiratory failure. s/p remdesivir 07/08/2020. Tracheostomy 08/06/2020, PEG 08/09/202008/12: No acute events overnight. Patient has T-max of 99.7. Currently on minimal vent settings.> 50% time spent in patient chart, labs, and imaging review and in discussion with RN and SW 08/13: Overnight Tmax 100.6F. Tires out easily on vent. 08/14: 101.5 F overnight. Stool sample on urine sample taken today. No growth on cultures as of yet. Still requiring vent support via his trach. No residu als on tube feeds. CT chest with left loculated effusion 08/15: 100.4 F overnight. Left Thoracostomy tube inserted today. Still requiring vent support via trach. 08/16: T-max 100.8 F overnight. Still requiring vent support via trach. Chest tube w/o air leak. 08/17: T [id number] overnight. Still requiring vent support via trach. Chest tube still with output, no air leak. 08/18: T-max 100.4 F overnight. On trach collar 30 L O2 currently. Minimal chest tube output, improved. CTPA still with left pulmonary embolism. Afebrile overnight. On trach collar 30 L O2 currently. Minimal chest tube output chest radiograph appears improved pigtail catheter in good position. 08/19/2020 No acute events overnight. Patient is on a trach collar currently. Chest tube in place with minimal output. Pending pleural fluid analysis. Patient's chart, labs, images were reviewed and discussed with RN 08/20/20 No acute events overnight. Tolerating trach collar. Minimal CT output.> 50% time spent in patient chart, labs, and imaging review and in discussion with RN and JAVIER 08/22/2020 No acute events overnight. Patient seen and examined in next recliner. Currently on trach collar and saturating well.> 50% time spent in patient chart, labs, and imaging review and in discussion with RN and JAVIER Plan: Cont eliquis Chest tube per pulm Ok to transfer to CVC on trach shield 08/11/2020 No acute events overnight. Patient with T-max of 100.8 overnight. Currently on minimal vent settings. Trached and pegged. Social work following for Medicare approval.> 50% time spent in patient chart, labs, and imaging review and in discussion with RN and SW 08/10/2020 no acute events overnight. Patient is on minimal vent settings. PEG tube placed yesterday. Will attempt to wean to extubate today.> 50% time spent in patient chart, labs, and imaging review and in discussion with RN and SW 08/09/2020 No acute events overnight. T-max of 100.0 F. Patient is on minimal ventilatory settings.> 50% time spent in patient chart, labs, and imaging review and in discussion with RN and SW 08/08/2020 Patient tolerating trach and ventilatory goldy support on 40% FiO2 and 5 of PEEP. Pending PEG tube placement tomorrow.> 50% time spent in patient chart, labs, and imaging review and in discussion with RN and SW 08/07/2020 No acute events overnight. Fever T-max of 101.1. Trach was placed yesterday. On minimal vent settings.> 50% time spent in patient chart, labs, and imaging review and in discussion with RN and SW 08/06/2020 No acute events overnight. Patient is afebrile. Currently on minimal vent settings. Pending trach today. Patient's chart, labs, images were reviewed and discussed with RN A total of 35 minutes of critical care time was spent in reviewing chart, labs, and images. Discussed with RN and SW. 08/05/2020 Patient seen and evaluated. No acute events, febrile overnight. Mechanically ventilated with FiO2 40%, PEEP 6. Plan for trach Thursday. 08/04/2020 Patient seen in [facility] ICU. Still with low-grade fevers. Mechanically ventilated, FiO2 40%, PEEP 6. No acute change, plan for trach Thursday. 08/03/2020 Patient seen in [facility] ICU. Still with low-grade fever. He remains on vent with FiO2 100%, PEEP 12. Plan for trach on Thursday, and PEG at some point after. 08/02/2020 Patient seen and evaluated in [facility] ICU. He is febrile this morning. Still intubated mechanically ventilated with FiO2 40 %, PEEP 6. Plans for tracheostomy today. 08/01/2020 Patient seen in [facility] ICU. Patient remains slightly febrile. Mechanically ventilated, FiO2 45%, PEEP 6. Tracheostomy unable to perform yesterday, general surgery to attempt again today. Discussed with RN. 07/31/2020 Patient still spiking fevers. Patient remains on vent, FiO2 45%, PEEP 6. Tracheostomy tentatively planned for today. 07/30/2020 Patient seen in [place] [id number] ICU. He is febrile on vent, FiO2 45%, PEEP 6. Will attempt to speak with family about decision on trach and PEG tube. Discussed with RN. t max 102 f fio2 50% 07/21/2020 Patient no acute events reported overnight. Patient continues to require a lot of support from vent. Discussed with RN 09/19/2019 Patient continues to be pretty much the same , fio2 is at 70%, heparin 07/19/2020 Patient hypotensive today, we will follow recommendations from critical caregiver services home. Vent management as per technology methodology consultant, no other complaints. 07/18/2020 Patient with no acute events reported overnight, fio2 is now at 75% PEEP of 6, Vent management as per pulmonary technology methodology consultant slight increase in temperature noted over the lat 24 hours. Will continue to follow 07/17/2020 Patient with no acute events reported overnight, contineus to require an fio2 of 80%, continue with supportive measures. 07/16/2020 Patient with no acute events reported overnight, patient continues to require quite a bit of FiO2 at 80%. Vent management as per technology methodology consultant, will place a call to family members after rounding. Discussed with RN 07/15/2020 Patient seen and examined bedside in the ICU. FiO2 80% PEEP of 6.pH 7.56, PCO2 32, PO2 56, HCO3 28. Will adjust respiratory rate accordingly to correct pH.> 50% time spent in patient chart, labs, and imaging review and in discussion with RN and JAVIER 07/14/2020 Patient seen and examined bedside. FiO2 65% and PEEP of 6 on vent. ABG: pH 7.26, PCO2 77, PO2 114, HCO3 34. We will adjust respiratory rate or tidal volume to titrate pH.> 50% time spent in patient chart, labs, and imaging review and in discussion with RN and JAVIER 07/13/2020 No acute events overnight. Patient examined bedside sedated and intubated. FiO2 70% PEEP of 6. Improved ABGs.> 50% time spent in patient chart, labs, and imaging review and in discussion with RN and JAVIER 07/12/2020 Patient seen and examined in the ICU. Sedated and intubated. FiO2 65, PEEP of 8 with improved oxygenation. pH 7.4, PCO2 48, PO2 94, HCO3 30. +500 cc fluid balance.> 50% time spent in patient chart, labs, and imaging review and in discussion with RN and JAVIER 07/11/2020 Patient seen and examined bedside in the ICU. Patient continues to be intubated and sedated. FiO2 75%, PEEP of 10. pH 7.40, PCO2 44, PO2 is 135, HCO3 26. Can likely decrease FiO2 due to improved oxygenation. +173 cc in the past 24 hours 07/10/2020 Patient seen and examined bedside in ICU. Patient is intubated and sedated. FiO2 90%, PEEP of 10, respiratory rate of 30. ABG: pH is 7.41, PCO2 42, PO2 113, HCO3 26. 07/05: Patient seen in ICU, still intubated and sedated. COVID-19 pending. Patient remains on heparin infusion. Discussed with RN, will try to have central line placed per anesthesia. 07/06: Patient seen in ICU. Still FiO2 100% on vent and sedated. COVID-19 positive. Continue heparin infusion, Zosyn, steroids. 07/07: Covid positive patient seen in ICU. On vent with FiO2 100%, PEEP 10. Continue remdesivir, steroids, Zosyn. Continue to monitor 07/08: Patient seen in [facility] ICU. Still on vent with FiO2 100%, PEEP 10. Afebrile. No acute events overnight. Continue steroids, antibiotics, and remdesivir. 07/09: Patient seen and examined in the ICU. Intubated and sedated. Vent settings FiO2 90%, PEEP of 10, respiratory rate of 30. Vitals Vitals Vital Signs Date Time Temp Pulse Resp B/P (MAP) Pulse Ox O2 Delivery O2 Flow Rate FiO2 08/26/20 07:00 98.3 81 16 118/74 (89) 99 Tracheal Collar 8.0 98.3 Physical Exam Physical Exam General alert awake HEENT normocephalic atraumatic , Neck trach present LUNGS: Clear anteriorly, left CTS HEART: S1-S2 no murmurs ABDOMEN: mildly distended, soft bowel sounds present Fernandez in place,fecal tube in place SKIN: No generalized rash Right upper extremity PICC line removed PIVs Clean Neuro alert awake General: Alert, No acute distress, Other (sedated ) Heart: Regular rate, No murmurs Lungs: Clear Extremities: No clubbing Skin: No significant lesion Labs LABS Laboratory Tests Test 08/25/20 11:41 08/25/20 18:07 08/25/20 23:49 08/26/20 06:22 Glucose (Fingerstick) 130 mg/dL (70-99) 123 mg/dL (70-99) 111 mg/dL (70-99) 115 mg/dL (70-99) Assessment and Plan Assessmemt and Plan Problems Medical Problems: (1) Acute respiratory failure with hypoxia Status: Acute (2) PRIYA (acute kidney injury) Status: Acute (3) Elevated troponin I level Status: Acute (4) Pulmonary emboli Status: Acute (5) Suspected COVID-19 virus infection Status: Acute Comment Review of Relevant I have reviewed the following items trino (where applicable) has been applied. Labs Laboratory Tests Test 08/24/20 11:11 08/24/20 15:51 08/24/20 17:55 08/24/20 23:51 Glucose (Fingerstick) 121 mg/dL (70-99) 134 mg/dL (70-99) 118 mg/dL (70-99) White Blood Count 12.4 x10^3/uL (4.0-11.0) Red Blood Count 3.46 x10^6/uL (4.30-5.70) Hemoglobin 10.8 g/dL (13.0-17.5) Hematocrit 32.1 % (39.0-53.0) Mean Corpuscular Volume 93 fL (79-100) Mean Corpuscular Hemoglobin 31 pg (25-35) Mean Corpuscular Hemoglobin Concent 34 g/dL (31-37) Red Cell Distribution Width 17.5 % (11.5-14.5) Platelet Count 296 x10^3/uL (140-400) Neutrophils (%) (Auto) 70 % (31-73) Lymphocytes (%) (Auto) 15 % (24-48) Monocytes (%) (Auto) 8 % (0-9) Eosinophils (%) (Auto) 8 % (0-3) Basophils (%) (Auto) 0 % (0-3) Neutrophils # (Auto) 8.6 x10^3/uL (1.8-7.7) Lymphocytes # (Auto) 1.8 x10^3/uL (1.0-4.8) Monocytes # (Auto) 0.9 x10^3/uL (0.0-1.1) Eosinophils # (Auto) 0.9 x10^3/uL (0.0-0.7) Basophils # (Auto) 0.1 x10^3/uL (0.0-0.2) Sodium Level 134 mmol/L (136-145) Potassium Level 3.8 mmol/L (3.5-5.1) Chloride Level 98 mmol/L (98-107) Carbon Dioxide Level 29 mmol/L (21-32) Anion Gap 7 (6-14) Blood Urea Nitrogen 18 mg/dL (8-26) Creatinine 0.6 mg/dL (0.7-1.3) Estimated GFR (Cockcroft-Gault) 142.6 BUN/Creatinine Ratio 30 (6-20) Glucose Level 121 mg/dL (70-99) Calcium Level 9.1 mg/dL (8.5-10.1) Total Bilirubin 0.4 mg/dL (0.2-1.0) Aspartate Amino Transf (AST/SGOT) 14 U/L (15-37) Alanine Aminotransferase (ALT/SGPT) 32 U/L (16-63) Alkaline Phosphatase 88 U/L (46-116) Total Protein 7.5 g/dL (6.4-8.2) Albumin 2.6 g/dL (3.4-5.0) Albumin/Globulin Ratio 0.5 (1.0-1.7) Test 08/25/20 06:02 08/25/20 06:41 08/25/20 11:41 08/25/20 18:07 Glucose (Fingerstick) 114 mg/dL (70-99) 125 mg/dL (70-99) 130 mg/dL (70-99) 123 mg/dL (70-99) Test 08/25/20 23:49 08/26/20 06:22 Glucose (Fingerstick) 111 mg/dL (70-99) 115 mg/dL (70-99) Laboratory Tests Test 08/25/20 11:41 08/25/20 18:07 08/25/20 23:49 08/26/20 06:22 Glucose (Fingerstick) 130 mg/dL (70-99) 123 mg/dL (70-99) 111 mg/dL (70-99) 115 mg/dL (70-99) Microbiology 08/15/20 Gram Stain - Final, Complete 08/15/20 Aerobic and Anaerobic Culture - Final, Complete 08/14/20 Urine Culture - Final, Complete 08/06/20 Blood Culture - Final, Complete 08/06/20 Antimicrobic Susceptibility - Final, Complete 08/04/20 AFB Specimen Processing Tissue - Final, Resulted 08/04/20 Acid Fast Bacilli Culture, Resulted Pending 08/04/20 Gram Stain - Final, Resulted 07/29/20 Gram Stain Evaluation - Final, Complete 07/29/20 Respiratory Culture - Final, Complete 07/29/20 Antimicrobic Susceptibility - Final, Complete Medications Current Medications Ceftriaxone Sodium (Rocephin) 1 gm 1X ONCE IVP Last administered on 07/03/20at 20:11; Start 07/03/20 at 19:15; Stop 07/03/20 at 19:19; Status DC Azithromycin (Zithromax) 500 mg 1X ONCE PO Last administered on 07/03/20at 20:11; Start 07/03/20 at 19:15; Stop 07/03/20 at 19:19; Status DC Sodium Chloride 1,000 ml @ 1,000 mls/hr 1X ONCE IV Last administered on 07/03/20at 20:11; Start 07/03/20 at 19:15; Stop 07/03/20 at 20:14; Status DC Sodium Chloride 1,000 ml @ 1,000 mls/hr 1X ONCE IV Last administered on 07/03/20at 19:15; Start 07/03/20 at 19:15; Stop 07/03/20 at 20:14; Status DC Iohexol (Omnipaque 350 Mg/ml) 90 ml 1X ONCE IV Last administered on 07/03/20at 21:00; Start 07/03/20 at 20:45; Stop 07/03/20 at 20:46; Status DC Info (CONTRAST GIVEN -- Rx MONITORING) 1 each PRN DAILY PRN MC SEE COMMENTS; Start 07/03/20 at 20:45; Stop 07/05/20 at 20:44; Status DC Enoxaparin Sodium (Lovenox 150mg Syringe) 150 mg 1X ONCE SQ Last administered on 07/03/20at 22:45; Start 07/03/20 at 23:00; Stop 07/03/20 at 23:01; Status DC Ondansetron HCl (Zofran) 4 mg PRN Q8HRS PRN IV NAUSEA/VOMITING 1ST CHOICE; Start 07/03/20 at 22:30; Stop 07/04/20 at 22:29; Status DC Morphine Sulfate (Morphine Sulfate) 2 mg PRN Q2HR PRN IV SEVERE PAIN 7-10; Start 07/03/20 at 22:30; Stop 07/04/20 at 22:29; Status DC Sodium Chloride 1,000 ml @ 100 mls/hr Q10H IV Last administered on 07/05/20at 00:35; Start 07/03/20 at 23:00; Stop 07/04/20 at 22:59; Status DC Acetaminophen (Tylenol) 650 mg PRN Q4HRS PRN PO FEVER > 100.3'F; Start 07/03/20 at 22:30; Stop 07/04/20 at 22:29; Status DC Throat Lozenges (Cepacol Sore Throat Lozenge) 1 lety PRN Q2HRS PRN PO SORE THROAT; Start 07/04/20 at 01:15 Furosemide (Lasix) 20 mg 1X ONCE IVP Last administered on 07/04/20at 10:10; Start 07/04/20 at 10:00; Stop 07/04/20 at 10:01; Status DC Succinylcholine Chloride (Anectine) 200 mg STK-MED ONCE .ROUTE ; Start 07/04/20 at 09:09; Stop 07/04/20 at 09:09; Status DC Etomidate (Amidate) 20 mg STK-MED ONCE IV ; Start 07/04/20 at 09:09; Stop 07/04/20 at 09:09; Status DC Fentanyl Citrate 30 ml @ 0 mls/hr CONT PRN IV SEE PROTOCOL Last administered on 07/04/20at 09:36; Start 07/04/20 at 09:15; Stop 07/04/20 at 14:36; Status DC Propofol 100 ml @ 0 mls/hr CONT PRN IV SEE PROTOCOL Last administered on 08/11/20at 06:42; Start 07/04/20 at 09:15; Stop 08/24/20 at 07:49; Status DC Midazolam HCl 100 ml @ 0 mls/hr CONT PRN IV SEE PROTOCOL Last administered on 08/10/20at 23:19; Start 07/04/20 at 09:15; Stop 08/24/20 at 07:49; Status DC Midazolam HCl (Versed) 5 mg 1X STAT IV Last administered on 07/04/20at 09:41; Start 07/04/20 at 09:21; Stop 07/04/20 at 09:22; Status DC Midazolam HCl (Versed) 5 mg STK-MED ONCE .ROUTE ; Start 07/04/20 at 09:21; Stop 07/04/20 at 09:21; Status DC Etomidate (Amidate) 10 mg 1X ONCE IV Last administered on 07/04/20at 09:37; Start 07/04/20 at 09:30; Stop 07/04/20 at 09:31; Status DC Succinylcholine Chloride (Anectine) 200 mg 1X ONCE IV Last administered on 07/04/20at 09:38; Start 07/04/20 at 09:30; Stop 07/04/20 at 09:31; Status DC Vecuronium [place] (Norcuron Bolus) 6 mg 1X ONCE IV Last administered on 07/04/20at 09:38; Start 07/04/20 at 09:45; Stop 07/04/20 at 09:46; Status DC Vecuronium [place] (Norcuron Bolus) 10 mg STK-MED ONCE IV ; Start 07/04/20 at 09:33; Stop 07/04/20 at 09:33; Status DC Pantoprazole Sodium (PROTONIX VIAL for IV PUSH) 40 mg DAILYAC IVP Last administered on 08/20/20at 10:29; Start 07/04/20 at 12:30; Stop 08/20/20 at 10:25; Status DC Methylprednisolone Sodium Succinate (SOLU-Medrol 40MG VIAL) 40 mg Q8HRS IV Last administered on 07/11/20at 05:41; Start 07/04/20 at 14:00; Stop 07/11/20 at 11:36; Status DC Piperacillin Sod/ Tazobactam Sod (Zosyn Per Pharmacy) 1 each PRN DAILY PRN MC SEE COMMENTS; Start 07/04/20 at 12:00; Stop 07/18/20 at 07:46; Status DC Heparin Sodium/ Dextrose 250 ml @ 0 mls/hr CONT PRN IV PER PROTOCOL Last administered on 07/15/20at 02:09; Start 07/04/20 at 12:00; Stop 07/16/20 at 12:09; Status DC Heparin Sodium (Porcine) (Heparin Sodium) 2,500 unit PRN Q6HRS PRN IV FOR UFH LEVEL LESS THAN 0.2 Last administered on 07/15/20at 09:19; Start 07/04/20 at 12:00; Stop 07/16/20 at 12:09; Status DC Heparin Sodium (Porcine) (Heparin Sodium) 1,250 unit PRN Q6HRS PRN IV FOR UFH LEVEL 0.2 - 0.29 Last administered on 07/05/20at 18:27; Start 07/04/20 at 12:00; Stop 07/16/20 at 12:09; Status DC Piperacillin Sod/ Tazobactam Sod 3.375 gm/Sodium Chloride 50 ml @ 100 mls/hr Q6HRS IV Last administered on 07/17/20at 05:10; Start 07/04/20 at 12:00; Stop 07/17/20 at 11:11; Status DC Zinc Sulfate (Orazinc) 220 mg DAILY PO Last administered on 08/26/20at 08:52; Start 07/05/20 at 09:00 Ascorbic Acid (Vitamin C) 500 mg Q6HRS PO Last administered on 08/05/20at 06:07; Start 07/04/20 at 18:00; Stop 08/05/20 at 08:39; Status DC Vitamin D (Vitamin D3) 5,000 unit DAILY PO Last administered on 08/26/20at 08:52; Start 07/05/20 at 09:00 Vecuronium [place] (Norcuron Bolus) 6 mg 1X ONCE IV Last administered on 07/04/20at 13:27; Start 07/04/20 at 13:15; Stop 07/04/20 at 13:16; Status DC Norepinephrine Bitartrate 8 mg/ Dextrose 258 ml @ 16.061 mls/ hr CONT PRN IV PER PROTOCOL Last administered on 07/05/20at 00:33; Start 07/04/20 at 13:15; Stop 07/18/20 at 11:01; Status DC Fentanyl Citrate 55 ml @ 0 mls/hr CONT PRN IV SEE PROTOCOL Last administered on 08/11/20at 00:01; Start 07/04/20 at 14:45; Stop 08/24/20 at 07:50; Status DC Vecuronium [place] (Norcuron Bolus) 6 mg Q4H PRN IV OVERBREATHING VENT/out of sync Last administered on 07/20/20at 12:32; Start 07/04/20 at 16:45; Stop 07/22/20 at 09:34; Status DC Furosemide (Lasix) 40 mg 1X ONCE IVP Last administered on 07/05/20at 14:17; Start 07/05/20 at 13:30; Stop 07/05/20 at 13:31; Status DC Insulin Human Lispro (HumaLOG) 0-5 UNITS Q6HRS SQ Last administered on 07/11/20at 05:42; Start 07/05/20 at 18:00; Stop 07/11/20 at 07:54; Status DC Dextrose (Dextrose 50%-Water Syringe) 12.5 gm PRN Q15MIN PRN IV SEE COMMENTS; Start 07/05/20 at 14:15 Insulin Human Lispro (HumaLOG) 2 units 1X ONCE SQ Last administered on 07/05/20at 14:19; Start 07/05/20 at 14:30; Stop 07/05/20 at 14:31; Status DC Remdesivir 200 mg/ Sodium Chloride 210 ml @ 210 mls/hr 1X ONCE IV Last administered on 07/06/20at 14:51; Start 07/06/20 at 14:30; Stop 07/06/20 at 15:29; Status DC Remdesivir 100 mg/ Sodium Chloride 230 ml @ 460 mls/hr Q24H IV Last administered on 07/10/20at 13:59; Start 07/07/20 at 14:30; Stop 07/10/20 at 14:59; Status DC Insulin Human Lispro (HumaLOG) 0-9 UNITS TIDWMEALS SQ Last administered on 07/12/20at 11:31; Start 07/11/20 at 08:00; Stop 07/13/20 at 10:17; Status DC Methylprednisolone Sodium Succinate (SOLU-Medrol 40MG VIAL) 40 mg DAILY IV Last administered on 07/14/20at 07:57; Start 07/12/20 at 09:00; Stop 07/14/20 at 09:26; Status DC Acetaminophen (Tylenol) 650 mg PRN Q6HRS PRN PEG MILD PAIN / TEMP > 100.3'F Last administered on 08/24/20at 08:59; Start 07/12/20 at 12:00 Vecuronium [place] 50 mg/ Miscellaneous 50 ml @ 4.094 mls/ hr CONT PRN IV SEE I/O RECORD Last administered on 07/18/20at 01:56; Start 07/12/20 at 14:45; Stop 07/22/20 at 09:34; Status DC Insulin Human Lispro (HumaLOG) 0-9 UNITS Q6HRS SQ Last administered on 07/25/20at 11:49; Start 07/13/20 at 12:00; Stop 07/27/20 at 10:41; Status DC Methylprednisolone Sodium Succinate (SOLU-Medrol 40MG VIAL) 40 mg Q12HR IV Last administered on 07/16/20at 09:57; Start 07/14/20 at 21:00; Stop 07/16/20 at 12:10; Status DC Info (Anti-Coagulation Monitoring By Pharmacy) 1 each PRN DAILY PRN MC SEE COMMENTS Last administered on 08/24/20at 07:52; Start 07/16/20 at 08:15 Apixaban (Eliquis) 10 mg BID PO Last administered on 07/22/20at 20:39; Start 07/16/20 at 13:00; Stop 07/22/20 at 21:01; Status DC Methylprednisolone Sodium Succinate (SOLU-Medrol 40MG VIAL) 40 mg DAILY IV Last administered on 07/16/20at 12:22; Start 07/16/20 at 13:00; Stop 07/17/20 at 08:24; Status DC Apixaban (Eliquis) 5 mg BID PO Last administered on 07/26/20at 20:31; Start 07/23/20 at 09:00; Stop 07/27/20 at 12:19; Status DC Methylprednisolone Sodium Succinate (SOLU-Medrol 40MG VIAL) 40 mg Q12HR IV Last administered on 07/20/20at 07:54; Start 07/17/20 at 09:00; Stop 07/20/20 at 10:20; Status DC Multi-Ingred Cream/Lotion/Oil/ Oint (Artificial Tears Eye Ointment) 1 wenceslao PRN Q1HR PRN OU DRY EYE Last administered on 07/27/20at 17:19; Start 07/18/20 at 10:45 Furosemide (Lasix) 40 mg 1X ONCE IVP Last administered on 07/19/20at 00:55; Start 07/19/20 at 00:45; Stop 07/19/20 at 00:46; Status DC Methylprednisolone Sodium Succinate (SOLU-Medrol 40MG VIAL) 40 mg DAILY IV Last administered on 07/22/20at 09:08; Start 07/21/20 at 09:00; Stop 07/22/20 at 09:36; Status DC Lorazepam (Ativan Inj) 2 mg PRN Q1HR PRN IV SEE COMMENTS Last administered on 08/18/20at 00:45; Start 07/21/20 at 12:30 Vecuronium [place] (Norcuron Bolus) 6 mg PRN Q6HRS PRN IV SEDATION Last adm inistered on 07/22/20at 12:02; Start 07/22/20 at 12:00; Stop 07/26/20 at 21:14; Status DC Piperacillin Sod/ Tazobactam Sod 4.5 gm/Sodium Chloride 100 ml @ 200 mls/hr Q6HRS IV Last administered on 07/26/20at 05:36; Start 07/24/20 at 12:00; Stop 07/26/20 at 10:53; Status DC Potassium Chloride/Water 100 ml @ 100 mls/hr Q1H IV ; Start 07/24/20 at 15:30; Stop 07/24/20 at 19:29; Status UNV Potassium Chloride/Water 100 ml @ 100 mls/hr Q1H IV ; Start 07/24/20 at 15:30; Stop 07/24/20 at 17:29; Status UNV Potassium Chloride/Water 100 ml @ 100 mls/hr Q1H IV ; Start 07/24/20 at 15:30; Stop 07/24/20 at 23:29; Status UNV Potassium Chloride/Water 100 ml @ 100 mls/hr Q1H IV ; Start 07/24/20 at 15:30; Stop 07/24/20 at 19:29; Status UNV Potassium Chloride/Water 100 ml @ 100 mls/hr Q1H IV ; Start 07/24/20 at 15:30; Stop 07/25/20 at 03:29; Status UNV Potassium Chloride/Water 100 ml @ 100 mls/hr Q1HR IV ; Start 07/24/20 at 16:00; Stop 07/24/20 at 21:59; Status UNV Magnesium Sulfate 100 ml @ 50 mls/hr DAILY IV ; Start 07/25/20 at 09:00; Stop 07/28/20 at 08:59; Status UNV Sodium Phosphate 20 mmol/Sodium Chloride 256.6667 ml @ 62.5 mls/hr 1X ONCE IV ; Start 07/24/20 at 15:30; Stop 07/24/20 at 19:36; Status UNV Sodium Phosphate 30 mmol/Sodium Chloride 260 ml @ 62.5 mls/hr 1X ONCE IV ; Start 07/24/20 at 15:30; Stop 07/24/20 at 19:39; Status UNV Potassium Phosphate 13.6 mmol/Sodium Chloride 254.5333 ml @ 62.5 mls/hr Q4H IV ; Start 07/24/20 at 15:30; Stop 07/25/20 at 03:29; Status UNV Info (Icu Electrolyte Protocol) 1 ea CONT PRN PRN MC SEE COMMENTS; Start 07/24/20 at 15:45 Vancomycin HCl (Vanco Per Pharmacy) 1 each PRN DAILY PRN MC SEE COMMENTS Last administered on 07/26/20at 08:53; Start 07/25/20 at 07:00; Stop 07/26/20 at 21:14; Status DC Vancomycin HCl 2 gm/Sodium Chloride 500 ml @ 250 mls/hr 1X ONCE IV Last administered on 07/25/20at 07:06; Start 07/25/20 at 07:00; Stop 07/25/20 at 08:59; Status DC Vancomycin HCl 1.25 gm/Sodium Chloride 250 ml @ 167 mls/hr Q8H IV Last administered on 07/25/20at 22:44; Start 07/25/20 at 15:00; Stop 07/26/20 at 07:31; Status DC Vancomycin HCl (Vancomycin Trough Level) 1 each 1X ONCE MC Last administered on 07/26/20at 06:13; Start 07/26/20 at 06:30; Stop 07/26/20 at 06:31; Status DC Vancomycin HCl 1.5 gm/Sodium Chloride 500 ml @ 250 mls/hr Q8H IV Last administered on 07/26/20at 15:42; Start 07/26/20 at 08:00; Stop 07/26/20 at 21:14; Status DC Vancomycin HCl (Vancomycin Trough Level) 1 each 1X ONCE MC ; Start 07/27/20 at 07:30; Stop 07/27/20 at 07:31; Status Cancel Meropenem 500 mg/ Sodium Chloride 50 ml @ 100 mls/hr Q6HRS IV Last administered on 08/02/20at 06:02; Start 07/26/20 at 12:00; Stop 08/02/20 at 07:46; Status DC Potassium Chloride/Water 100 ml @ 100 mls/hr Q1H IV Last administered on 07/27/20at 11:29; Start 07/27/20 at 10:30; Stop 07/27/20 at 12:29; Status DC Insulin Human Lispro (HumaLOG) 0-9 UNITS [id number] SQ Last administered on at 18:17; Start 07/27/20 at 18:00; Stop 08/01/20 at 17:17; Status DC Linezolid/Dextrose 300 ml @ 300 mls/hr Q12HR IV Last administered on 07/30/20at 21:47; Start 07/27/20 at 12:30; Stop 07/31/20 at 07:36; Status DC Vecuronium [place] (Norcuron Bolus) 6 mg PRN Q6HRS ONCE IV ; Start 07/28/20 at 08:45; Stop 07/28/20 at 09:11; Status DC Vecuronium [place] (Norcuron Bolus) 6 mg 1X ONCE IV Last administered on 07/28/20at 09:34; Start 07/28/20 at 09:30; Stop 07/28/20 at 09:31; Status DC Vecuronium [place] (Norcuron Bolus) 6 mg PRN Q6HRS PRN IV Vent Management Last administered on 08/09/20at 15:05; Start 07/28/20 at 23:00; Stop 08/24/20 at 07:50; Status DC Furosemide (Lasix) 20 mg 1X ONCE IVP Last administered on 07/29/20at 06:35; Start 07/29/20 at 06:30; Stop 07/29/20 at 06:31; Status DC Potassium Bicarbonate (Potassium Effervescent Tablet) 20 meq 1X ONCE NG Last administered on 07/29/20at 06:36; Start 07/29/20 at 06:30; Stop 07/29/20 at 06:31; Status DC Rocuronium [place] (Zemuron) 100 mg STK-MED ONCE .ROUTE ; Start 07/31/20 at 12:35; Stop 07/31/20 at 12:35; Status DC Cellulose (Surgicel Fibrillar 1x2) 1 each STK-MED ONCE .ROUTE ; Start 07/31/20 at 13:08; Stop 07/31/20 at 13:08; Status DC Bupivacaine HCl/ Epinephrine Bitart (Sensorcain-Epi 0.5%-1:065662 Mpf) 30 ml 1X ONCE INJ ; Start 07/31/20 at 13:45; Stop 07/31/20 at 13:46; Status DC Ondansetron HCl (Zofran) 4 mg PRN Q6HRS PRN IVP NAUSEA/VOMITING; Start 08/01/20 at 07:00; Stop 08/02/20 at 06:59; Status DC Fentanyl Citrate (Fentanyl 2ml Vial) 25 mcg PRN Q5MIN PRN IVP MILD PAIN 1-3; Start 08/01/20 at 07:00; Stop 08/02/20 at 06:59; Status DC Fentanyl Citrate (Fentanyl 2ml Vial) 50 mcg PRN Q5MIN PRN IVP MODERATE TO SEVERE PAIN; Start 08/01/20 at 07:00; Stop 08/02/20 at 06:59; Status DC Morphine Sulfate (Morphine Sulfate) 1 mg PRN Q10MIN PRN IVP SEVERE PAIN 7-10; Start 08/01/20 at 07:00; Stop 08/02/20 at 06:59; Status DC Ringer's Solution 1,000 ml @ 30 mls/hr Q24H IV ; Start 08/01/20 at 07:00; Stop 08/01/20 at 18:59; Status DC Lidocaine HCl (Xylocaine-Mpf 1% 2ml Vial) 2 ml 1X PRN PRN ID IV START; Start 08/01/20 at 07:00; Stop 08/02/20 at 06:59; Status DC Hydromorphone HCl (Dilaudid) 0.5 mg PRN Q10MIN PRN IVP SEV PAIN, Second choice; Start 08/01/20 at 07:00; Stop 08/02/20 at 06:59; Status DC Prochlorperazine Edisylate (Compazine) 5 mg PACU PRN PRN IVP NAUSEA, MRX1; Start 08/01/20 at 07:00; Stop 08/02/20 at 06:59; Status DC Daptomycin 470 mg/ Sodium Chloride 50 ml @ 100 mls/hr Q24H IV Last administered on 08/05/20at 09:24; Start 08/01/20 at 09:00; Stop 08/05/20 at 11:20; Status DC Ondansetron HCl (Zofran) 4 mg PRN Q6HRS PRN IV NAUSEA/VOMITING; Start 08/02/20 at 07:00; Stop 08/03/20 at 06:59; Status DC Fentanyl Citrate (Fentanyl 2ml Vial) 25 mcg PRN Q5MIN PRN IV MILD PAIN 1-3; Start 08/02/20 at 07:00; Stop 08/03/20 at 06:59; Status DC Fentanyl Citrate (Fentanyl 2ml Vial) 50 mcg PRN Q5MIN PRN IV MODERATE TO SEVERE PAIN; Start 08/02/20 at 07:00; Stop 08/03/20 at 06:59; Status DC Morphine Sulfate (Morphine Sulfate) 1 mg PRN Q10MIN PRN IV SEVERE PAIN 7-10; Start 08/02/20 at 07:00; Stop 08/03/20 at 06:59; Status DC Ringer's Solution 1,000 ml @ 30 mls/hr Q24H IV Last administered on 08/02/20at 07:53; Start 08/02/20 at 07:00; Stop 08/02/20 at 18:59; Status DC Lidocaine HCl (Xylocaine-Mpf 1% 2ml Vial) 2 ml PRN 1X PRN ID PRIOR TO IV START; Start 08/02/20 at 07:00; Stop 08/03/20 at 06:59; Status DC Hydromorphone HCl (Dilaudid) 0.5 mg PRN Q10MIN PRN IV SEV PAIN, Second choice; Start 08/02/20 at 07:00; Stop 08/03/20 at 06:59; Status DC Prochlorperazine Edisylate (Compazine) 5 mg PACU PRN PRN IV NAUSEA, MRX1; Start 08/02/20 at 07:00; Stop 08/03/20 at 06:59; Status DC Levofloxacin/ Dextrose 150 ml @ 100 mls/hr Q24H IV Last administered on 08/05/20at 07:16; Start 08/02/20 at 09:00; Stop 08/05/20 at 11:20; Status DC Rocuronium [place] (Zemuron) 50 mg STK-MED ONCE .ROUTE ; Start 08/02/20 at 10:12; Stop 08/02/20 at 10:13; Status DC Heparin Sodium/ Dextrose 250 ml @ 0 mls/hr CONT PRN IV PER PROTOCOL; Start 08/03/20 at 10:45; Status UNV Heparin Sodium (Porcine) (Heparin Sodium) 2,300 unit PRN Q6HRS PRN IV FOR UFH LEVEL LESS THAN 0.2; Start 08/03/20 at 10:45; Stop 08/03/20 at 10:54; Status DC Heparin Sodium (Porcine) (Heparin Sodium) 1,150 unit PRN Q6HRS PRN IV FOR UFH LEVEL 0.2 - 0.29; Start 08/03/20 at 10:45; Stop 08/03/20 at 10:54; Status DC Heparin Sodium/ Dextrose 250 ml @ 0 mls/hr CONT PRN IV PER PROTOCOL Last administered on 08/11/20at 12:04; Start 08/03/20 at 11:00; Stop 08/11/20 at 14:21; Status DC Heparin Sodium (Porcine) (Heparin Sodium) 2,000 unit PRN Q6HRS PRN IV FOR PTT 40 - 58 Last administered on 08/08/20at 12:41; Start 08/03/20 at 11:00; Stop 08/11/20 at 14:21; Status DC Heparin Sodium (Porcine) (Heparin Sodium) 1,000 unit PRN Q6HRS PRN IV FOR PTT 59 - 78 Last administered on 08/04/20at 00:12; Start 08/03/20 at 11:00; Stop 08/11/20 at 14:21; Status DC Ondansetron HCl (Zofran) 4 mg PRN Q6HRS PRN IV NAUSEA/VOMITING; Start 08/06/20 at 07:00; Stop 08/07/20 at 06:59; Status DC Fentanyl Citrate (Fentanyl 2ml Vial) 25 mcg PRN Q5MIN PRN IV MILD PAIN 1-3; Start 08/06/20 at 07:00; Stop 08/07/20 at 06:59; Status DC Fentanyl Citrate (Fentanyl 2ml Vial) 50 mcg PRN Q5MIN PRN IV MODERATE TO SEVERE PAIN; Start 08/06/20 at 07:00; Stop 08/07/20 at 06:59; Status DC Morphine Sulfate (Morphine Sulfate) 1 mg PRN Q10MIN PRN IV SEVERE PAIN 7-10; Start 08/06/20 at 07:00; Stop 08/07/20 at 06:59; Status DC Ringer's Solution 1,000 ml @ 30 mls/hr Q24H IV ; Start 08/06/20 at 07:00; Stop 08/06/20 at 18:59; Status DC Lidocaine HCl (Xylocaine-Mpf 1% 2ml Vial) 2 ml PRN 1X PRN ID PRIOR TO IV START; Start 08/06/20 at 07:00; Stop 08/07/20 at 06:59; Status DC Hydromorphone HCl (Dilaudid) 0.5 mg PRN Q10MIN PRN IV SEV PAIN, Second choice; Start 08/06/20 at 07:00; Stop 08/07/20 at 06:59; Status DC Prochlorperazine Edisylate (Compazine) 5 mg PACU PRN PRN IV NAUSEA, MRX1; Start 08/06/20 at 07:00; Stop 08/07/20 at 06:59; Status DC Bupivacaine HCl/ Epinephrine Bitart (Sensorcain-Epi 0.5%-1:321885 Mpf) 30 ml 1X ONCE INJ Last administered on 08/06/20at 15:15; Start 08/06/20 at 06:30; Stop 08/06/20 at 06:31; Status DC Rocuronium [place] (Zemuron) 50 mg STK-MED ONCE .ROUTE ; Start 08/06/20 at 11:02; Stop 08/06/20 at 11:03; Status DC Fentanyl Citrate (Fentanyl 2ml Vial) 100 mcg STK-MED ONCE .ROUTE ; Start 08/06/20 at 11:03; Stop 08/06/20 at 11:03; Status DC Cellulose (Surgicel Hemostat 4x8) 1 each STK-MED ONCE .ROUTE ; Start 08/06/20 at 14:10; Stop 08/06/20 at 14:11; Status DC Sevoflurane (Ultane) 30 ml STK-MED ONCE IH ; Start 08/06/20 at 15:18; Stop 08/06/20 at 15:19; Status DC Rocuronium [place] (Zemuron) 50 mg STK-MED ONCE .ROUTE ; Start 08/06/20 at 15:19; Stop 08/06/20 at 15:19; Status DC Acetaminophen (Tylenol Supp) 650 mg PRN Q6HRS PRN MO MILD PAIN / TEMP > 100.3'F Last administered on 08/07/20at 19:28; Start 08/06/20 at 20:45 Sodium Chloride 1,000 ml @ 100 mls/hr Q10H IV Last administered on 08/11/20at 16:30; Start 08/07/20 at 12:00; Stop 08/12/20 at 10:50; Status DC Cefazolin Sodium/ Dextrose 50 ml @ 100 mls/hr 1X ONCE IV Last administered on 08/09/20at 11:04; Start 08/09/20 at 11:00; Stop 08/09/20 at 11:29; Status DC Ringer's Solution 1,000 ml @ 30 mls/hr Q24H IV Last administered on 08/09/20at 06:11; Start 08/09/20 at 06:00; Stop 08/09/20 at 17:59; Status DC Prochlorperazine Edisylate (Compazine) 5 mg PACU PRN PRN IVP NAUSEA, MRX1; S tart 08/09/20 at 06:00; Stop 08/10/20 at 05:59; Status DC Dexmedetomidine HCl 400 mcg/ Sodium Chloride 100 ml @ 0 mls/hr CONT PRN IV PER PROTOCOL Last administered on 08/17/20at 11:29; Start 08/11/20 at 10:00; Stop 08/24/20 at 07:50; Status DC Potassium Chloride/Water 100 ml @ 100 mls/hr Q1H IV ; Start 08/11/20 at 12:30; Stop 08/11/20 at 16:29; Status UNV Potassium Bicarbonate (Potassium Effervescent Tablet) 40 meq Q2H PO Last administered on 08/11/20at 14:58; Start 08/11/20 at 12:45; Stop 08/11/20 at 14:46; Status DC Vancomycin HCl (Vanco Per Pharmacy) 1 each PRN DAILY PRN MC SEE COMMENTS Last administered on 08/13/20at 15:09; Start 08/11/20 at 13:30; Stop 08/14/20 at 08:03; Status DC Vancomycin HCl 1.75 gm/Sodium Chloride 500 ml @ 250 mls/hr 1X ONCE IV Last administered on 08/11/20at 14:46; Start 08/11/20 at 14:00; Stop 08/11/20 at 15:59; Status DC Heparin Sodium/ Dextrose 250 ml @ 0 mls/hr CONT PRN IV PER PROTOCOL Last administered on 08/18/20at 00:46; Start 08/11/20 at 14:30; Stop 08/18/20 at 10:00; Status DC Heparin Sodium (Porcine) (Heparin Sodium) 2,450 unit PRN Q6HRS PRN IV FOR UFH LEVEL LESS THAN 0.2 Last administered on 08/13/20at 05:39; Start 08/11/20 at 14:30; Stop 08/18/20 at 10:00; Status DC Heparin Sodium (Porcine) (Heparin Sodium) 1,250 unit PRN Q6HRS PRN IV FOR UFH LEVEL 0.2 - 0.29 Last administered on 08/14/20at 22:56; Start 08/11/20 at 14:30; Stop 08/18/20 at 10:00; Status DC Vancomycin HCl 1.5 gm/Sodium Chloride 500 ml @ 250 mls/hr Q8H IV Last administered on 08/12/20at 14:49; Start 08/11/20 at 23:00; Stop 08/12/20 at 15:13; Status DC Vancomycin HCl (Vancomycin Trough Level) 1 each 1X ONCE MC Last administered on 08/12/20at 14:30; Start 08/12/20 at 14:30; Stop 08/12/20 at 14:31; Status DC Potassium Chloride/Water 100 ml @ 100 mls/hr Q1H IV Last administered on 08/12/20at 14:50; Start 08/12/20 at 05:00; Stop 08/12/20 at 12:59; Status DC Vancomycin HCl 1.75 gm/Sodium Chloride 500 ml @ 250 mls/hr Q8H IV Last administered on 08/14/20at 07:04; Start 08/12/20 at 23:00; Stop 08/14/20 at 08:01; Status DC Vancomycin HCl (Vancomycin Trough Level) 1 each 1X ONCE MC ; Start 08/13/20 at 14:30; Stop 08/13/20 at 14:31; Status DC Potassium Chloride/Water 100 ml @ 100 mls/hr Q1H IV Last administered on 08/13/20at 02:02; Start 08/12/20 at 22:00; Stop 08/13/20 at 01:59; Status DC Prochlorperazine Edisylate (Compazine) 10 mg PRN Q6HRS PRN IV NAUSEA/VOMITING 1ST CHOICE Last administered on 08/19/20at 13:34; Start 08/12/20 at 21:30 Meclizine HCl (Antivert) 25 mg PRN DAILY PRN PO DIZZINESS; Start 08/12/20 at 23:00 Potassium Chloride/Water 100 ml @ 100 mls/hr Q1H IV Last administered on 08/13/20at 08:53; Start 08/13/20 at 02:00; Stop 08/13/20 at 05:59; Status DC Magnesium Sulfate 100 ml @ 50 mls/hr DAILY IV Last administered on 08/15/20at 08:43; Start 08/13/20 at 00:00; Stop 08/16/20 at 00:00; Status DC Potassium Chloride/Water 100 ml @ 100 mls/hr Q1H IV Last administered on 08/13/20at 18:10; Start 08/13/20 at 13:00; Stop 08/13/20 at 16:59; Status DC Insulin Human Lispro (HumaLOG) 0-7 UNITS Q6HRS SQ Last administered on 08/19/20at 11:38; Start 08/14/20 at 12:00 Dextrose (Dextrose 50%-Water Syringe) 12.5 gm PRN Q15MIN PRN IV SEE COMMENTS; Start 08/14/20 at 08:00; Status UNV Meropenem 500 mg/ Sodium Chloride 50 ml @ 100 mls/hr Q6HRS IV Last administered on 08/23/20at 05:54; Start 08/14/20 at 09:00; Stop 08/23/20 at 10:55; Status DC Linezolid (Zyvox) 600 mg BID PO Last administered on 08/19/20at 08:22; Start 08/14/20 at 09:00; Stop 08/19/20 at 12:00; Status DC Potassium Bicarbonate (Potassium Effervescent Tablet) 40 meq 1X ONCE PEG Last administered on 08/15/20at 10:25; Start 08/15/20 at 09:45; Stop 08/15/20 at 09:46; Status DC Lidocaine HCl (Buffered Lidocaine 1%) 3 ml STK-MED ONCE .ROUTE ; Start 08/15/20 at 12:41; Stop 08/15/20 at 12:41; Status DC Lidocaine HCl (Buffered Lidocaine 1%) 6 ml 1X ONCE INJ Last administered on 08/15/20at 13:07; Start 08/15/20 at 13:00; Stop 08/15/20 at 13:01; Status DC Fentanyl Citrate (Fentanyl 2ml Vial) 100 mcg STK-MED ONCE .ROUTE ; Start 08/15/20 at 13:27; Stop 08/15/20 at 13:28; Status DC Fentanyl Citrate (Fentanyl 2ml Vial) 50 mcg PRN Q4HRS PRN IVP PAIN Last administered on 08/22/20at 03:47; Start 08/15/20 at 14:15 Fentanyl Citrate (Fentanyl 2ml Vial) 50 mcg 1X ONCE IVP Last administered on 08/15/20at 14:29; Start 08/15/20 at 14:15; Stop 08/15/20 at 14:18; Status DC Iohexol (Omnipaque 350 Mg/ml) 100 ml 1X ONCE IV Last administered on 08/17/20at 05:45; Start 08/17/20 at 05:45; Stop 08/17/20 at 05:46; Status DC Info (CONTRAST GIVEN -- Rx MONITORING) 1 each PRN DAILY PRN MC SEE COMMENTS; Start 08/17/20 at 05:45; Stop 12/27/20 at 05:44; Status DC Apixaban (Eliquis) 5 mg BID PO Last administered on 08/26/20 08:52; Start at 10:00 Lansoprazole (Prevacid) 30 mg DAILY FT Last administered on 08/26/20 08:52; Start 08/21/20 at 09:00 Doxycycline Hyclate (Vibra-Tab) 100 mg BID PO Last administered on 08/26/20 08:52; Start 08/21/20 at 10:00 Amoxicillin/ Clavulanate Potassium (Augmentin 875/ 125mg) 1 tab BID PO Last administered on 08/26/20 08:52; Start 08/23/20 at 21:00 Vitals/I & O Vital Sign - Last 24 Hours 08/25/20 08/25/20 08/25/20 08/25/20 15:00 19:17 19:30 20:15 Temp 98.0 97.9 98.0 97.9 Pulse 75 78 Resp 16 24 B/P (MAP) 105/66 (79) 105/63 (77) Pulse Ox 100 99 100 O2 Delivery High Flow Nasal Cannula Trach Collar Tracheal Collar Tracheal Collar O2 Flow Rate 8.0 8.0 8.0 08/25/20 08/26/20 08/26/20 23:40 03:45 07:00 Temp 98.5 98.0 98.3 98.5 98.0 98.3 Pulse 80 74 81 Resp 26 22 16 B/P (MAP) 121/70 (87) 118/70 (86) 118/74 (89) Pulse Ox 99 98 99 O2 Delivery Tracheal Collar Tracheal Collar O2 Flow Rate 8.0 Intake and Output 08/25/20 08/25/20 08/26/20 15:00 23:00 07:00 Intake Total 100 ml 1470 ml 613 ml Output Total 0 ml 800 ml Balance 100 ml 670 ml 613 ml Justicifation of Admission Dx: Justifications for Admission: Justification of Admission Dx: Yes REESE CASEY MD Aug 26, 2020 11:08
--- NOTE | 2020-08-26 14:33 | PDOC ---
PULMONARY PROGRESS NOTES DATE: 08/26/20 TIME: 14:29 Subjective Patient remains on trach shield with PMV/ intermittent capped No other concerns from nursing overnight Vitals Vital Signs Date Time Temp Pulse Resp B/P (MAP) Pulse Ox O2 Delivery O2 Flow Rate FiO2 08/26/20 11:00 98.7 75 16 126/77 (93) 98 Tracheal Collar 8.0 98.7 Comments ROS: No Nausea, No Chest Pain, No Abdominal Pain, No Increase Cough General: Alert, No acute distress HEENT: Other (trach-midline) Lungs: Clear Cardiovascular: S1, S2 Abdomen: Soft Neuro Exam: Alert, Oriented Extremities: No Edema Skin: Warm, Dry Labs Laboratory Tests Test 08/24/20 15:51 08/24/20 17:55 08/24/20 23:51 08/25/20 06:02 White Blood Count 12.4 x10^3/uL (4.0-11.0) Red Blood Count 3.46 x10^6/uL (4.30-5.70) Hemoglobin 10.8 g/dL (13.0-17.5) Hematocrit 32.1 % (39.0-53.0) Mean Corpuscular Volume 93 fL (79-100) Mean Corpuscular Hemoglobin 31 pg (25-35) Mean Corpuscular Hemoglobin Concent 34 g/dL (31-37) Red Cell Distribution Width 17.5 % (11.5-14.5) Platelet Count 296 x10^3/uL (140-400) Neutrophils (%) (Auto) 70 % (31-73) Lymphocytes (%) (Auto) 15 % (24-48) Monocytes (%) (Auto) 8 % (0-9) Eosinophils (%) (Auto) 8 % (0-3) Basophils (%) (Auto) 0 % (0-3) Neutrophils # (Auto) 8.6 x10^3/uL (1.8-7.7) Lymphocytes # (Auto) 1.8 x10^3/uL (1.0-4.8) Monocytes # (Auto) 0.9 x10^3/uL (0.0-1.1) Eosinophils # (Auto) 0.9 x10^3/uL (0.0-0.7) Basophils # (Auto) 0.1 x10^3/uL (0.0-0.2) Sodium Level 134 mmol/L (136-145) Potassium Level 3.8 mmol/L (3.5-5.1) Chloride Level 98 mmol/L (98-107) Carbon Dioxide Level 29 mmol/L (21-32) Anion Gap 7 (6-14) Blood Urea Nitrogen 18 mg/dL (8-26) Creatinine 0.6 mg/dL (0.7-1.3) Estimated GFR (Cockcroft-Gault) 142.6 BUN/Creatinine Ratio 30 (6-20) Glucose Level 121 mg/dL (70-99) Calcium Level 9.1 mg/dL (8.5-10.1) Total Bilirubin 0.4 mg/dL (0.2-1.0) Aspartate Amino Transf (AST/SGOT) 14 U/L (15-37) Alanine Aminotransferase (ALT/SGPT) 32 U/L (16-63) Alkaline Phosphatase 88 U/L (46-116) Total Protein 7.5 g/dL (6.4-8.2) Albumin 2.6 g/dL (3.4-5.0) Albumin/Globulin Ratio 0.5 (1.0-1.7) Glucose (Fingerstick) 134 mg/dL (70-99) 118 mg/dL (70-99) 114 mg/dL (70-99) Test 08/25/20 06:41 08/25/20 11:41 08/25/20 18:07 08/25/20 23:49 Glucose (Fingerstick) 125 mg/dL (70-99) 130 mg/dL (70-99) 123 mg/dL (70-99) 111 mg/dL (70-99) Test 08/26/20 06:22 08/26/20 12:34 Glucose (Fingerstick) 115 mg/dL (70-99) 126 mg/dL (70-99) Laboratory Tests Test 08/25/20 18:07 08/25/20 23:49 08/26/20 06:22 08/26/20 12:34 Glucose (Fingerstick) 123 mg/dL (70-99) 111 mg/dL (70-99) 115 mg/dL (70-99) 126 mg/dL (70-99) Comments CXR 08/20 IMPRESSION: small left effusion, bilateral infiltrates L>R CT CHEST 08/14 1. Marked interval enlargement of left lateral effusion. This could be causing some mass effect on the mediastinum. 2. Extensive pleural-parenchymal scarring and patchy airspace opacities in the lungs compatible with the sequelae of atypical pneumonia. Electronically signed by: Gosia Li MD (08/14/2020 1:28 PM) [id number] Impression . IMPRESSION: 1. Acute hypoxemic respiratory failure./ALI/ARDS due to COVID -19, much improved. 2. Acute pulmonary embolism , still some residual PE, on Eliquis 3. COVID-19 pnemonia.now with low grade fevers, suspect VAP/ less likely empyema ( based on analysis) 5. Hypertension. 6. History of bronchitis. 7. Elevated troponin. 8. Acute kidney injury. 9. Leukocytosis. 10. Covid-[address] chest 08/14 , large left effusion, improved post chest tube left, no sig drainage or increase effusion, Plan . Continue Trach shield 8 liters Oxygen, tolerating well, wean oxygen as tolerated to keep sats above 92% Cap trach and / PMV as tolerated Trach downsized to # 6 Shiley today, plan to decannulate soon Status post tracheostomy 08/06 and S/P Peg tube placement 08/09 repeat CTA chest with residual PE. f/u, dopplers neg, re-started Eliquis 08/18 f/u chest x-ray as needed Antibiotics per ID--AFB negative, repeat cultures negative, now on po ABX Doxy and Augmentin Has completed full course of remdesivir Continue tube feeding for nutritional support PT/OT and consult speech --failed swallow study remains n.p.o. DVT/GI prophylaxis,Protonix/eliquis Discussed with RN and RT Pt. is FULL CODE ALVIN RAMSEY MD Aug 26, 2020 14:33
[2020-08-26 15:00] VITALS: BP 126/81
[2020-08-26 19:20] VITALS: BP 102/62
[2020-08-26 23:20] VITALS: BP 114/72
[2020-08-27 03:20] VITALS: BP 116/68
[2020-08-27] MEDS: INSULIN LISPRO 300 UNITS/3 ML VIAL. SQ SCH ×3 (06:00→17:31)
[2020-08-27 07:00] VITALS: BP 106/66
[2020-08-27] MEDS: DOXYCYCLINE HYCLATE 100 MG TABLET PO SCH ×2 (08:08→22:02)
[2020-08-27] MEDS: CHOLECALCIFEROL (VITAMIN D3) 5,000 UNIT CAPSULE PO SCH (08:08)
[2020-08-27] MEDS: APIXABAN 5 MG TABLET. PO SCH ×2 (08:08→22:02)
[2020-08-27] MEDS: AMOXICILLIN/K CLAV 875/125MG TABLET. PO SCH ×2 (08:08→22:03)
[2020-08-27] MEDS: LANSOPRAZOLE 30 MG TAB.RAP.DR FT SCH (08:08)
[2020-08-27] MEDS: ZINC SULFATE 220 MG CAPSULE. PO SCH (08:08)
[2020-08-27] MEDS: ACETAMINOPHEN 650 MG/20.3 ML SOLUTION. PEG PRN ×2 (08:08→13:55)
[2020-08-27] MEDS: ANTI-COAG MONITOR BY PHARMACY. MC PRN (09:42)
--- NOTE | 2020-08-27 10:05 | PDOC ---
Infectious Disease Note Subjective Subjective Patient feels better Remains afebrile ROS ROS no n/v/d/sob Vital Sign Vital Signs Vital Signs Date Time Temp Pulse Resp B/P (MAP) Pulse Ox O2 Delivery O2 Flow Rate FiO2 08/27/20 08:05 Trach Collar 8.0 08/27/20 07:00 99.3 76 20 106/66 (79) 99 99.3 Physical Exam PHYSICAL EXAM General alert awake HEENT normocephalic atraumatic , Neck trach present LUNGS: Clear anteriorly, left CTS HEART: S1-S2 no murmurs ABDOMEN: mildly distended, soft bowel sounds present Fernandez in place,fecal tube in place SKIN: No generalized rash Right upper extremity PICC line removed PIVs Clean Neuro alert awake Labs Lab Laboratory Tests Test 08/26/20 12:34 08/26/20 16:51 08/27/20 06:18 Glucose (Fingerstick) 126 mg/dL (70-99) 106 mg/dL (70-99) 123 mg/dL (70-99) Micro sputum enterobacter sputum afb stain neg Objective Assessment Left pleural effusion status post CTS August 15 Left thoracocentesis with CTS pH 7.73, cell count, glucose, protein .ldh noted, cult neg Fevers Source ?? Leukocytosis improved COVID-19 positive. Status post remdesivir, steroids Acute hypoxic respiratory failure/ARDS /pneumonia H/O Bilateral pulmonary emboli. Hypertension. Bacteremia 07/23 1/2 bottles staph hominis likely contaminant Repeat blood cultures staph capitis likely contaminant Repeat BC 08/06 staph pettenkori likely contaminant Enterobacter UTI and pneumonia Treated Plan Plan of Care cont augmentin and doxy tracheal aspirate for afb stain and cultures negative so far acute hepatitis panel and HIV negative CT chest abdomen and pelvis reviewed, Lt base changes present D/W MONALISA LUCAS MD Aug 27, 2020 10:05
[2020-08-27 11:00] VITALS: BP 113/82
--- NOTE | 2020-08-27 11:28 | PDOC ---
PULMONARY PROGRESS NOTES DATE: 08/27/20 TIME: 11:28 Subjective Patient remains on trach shield with PMV/ intermittent capped afebrile No other concerns from nursing overnight Vitals Vital Signs Date Time Temp Pulse Resp B/P (MAP) Pulse Ox O2 Delivery O2 Flow Rate FiO2 08/27/20 11:00 97.6 97 20 113/82 (92) 98 Tracheal Collar 8.0 97.6 Comments ROS: No Nausea, No Chest Pain, No Abdominal Pain, No Increase Cough General: Alert, No acute distress HEENT: Other (trach-midline) Lungs: Clear Cardiovascular: S1, S2 Abdomen: Soft Neuro Exam: Alert, Oriented Extremities: No Edema Skin: Warm, Dry Labs Laboratory Tests Test 08/25/20 11:41 08/25/20 18:07 08/25/20 23:49 08/26/20 06:22 Glucose (Fingerstick) 130 mg/dL (70-99) 123 mg/dL (70-99) 111 mg/dL (70-99) 115 mg/dL (70-99) Test 08/26/20 12:34 08/26/20 16:51 08/27/20 06:18 Glucose (Fingerstick) 126 mg/dL (70-99) 106 mg/dL (70-99) 123 mg/dL (70-99) Laboratory Tests Test 08/26/20 12:34 08/26/20 16:51 08/27/20 06:18 Glucose (Fingerstick) 126 mg/dL (70-99) 106 mg/dL (70-99) 123 mg/dL (70-99) Comments CXR 08/20 IMPRESSION: small left effusion, bilateral infiltrates L>R CT CHEST 08/14 1. Marked interval enlargement of left lateral effusion. This could be causing some mass effect on the mediastinum. 2. Extensive pleural-parenchymal scarring and patchy airspace opacities in the lungs compatible with the sequelae of atypical pneumonia. Electronically signed by: Gosia Li MD (08/14/2020 1:28 PM) [id number] Impression . IMPRESSION: 1. Acute hypoxemic respiratory failure./ALI/ARDS due to COVID -19, much improved. 2. Acute pulmonary embolism , still some residual PE, on Eliquis 3. COVID-19 pnemonia.now with low grade fevers, suspect VAP/ less likely empyema ( based on analysis) 5. Hypertension. 6. History of bronchitis. 7. Elevated troponin. 8. Acute kidney injury. 9. Leukocytosis. 10. Covid-[address] chest 08/14 , large left effusion, improved post chest tube left, no sig drainage or increase effusion, Plan . Continue Trach shield 8 liters Oxygen, tolerating well, wean oxygen as tolerated to keep sats above 92% Cap trach and / PMV as tolerated Plan to decannulate soon Status post tracheostomy 08/06 and S/P Peg tube placement 08/09 repeat CTA chest with residual PE. f/u, dopplers neg, re-started Eliquis 08/18 f/u chest x-ray as needed Antibiotics per ID--AFB negative, repeat cultures negative, now on po ABX Doxy and Augmentin Has completed full course of remdesivir Continue tube feeding for nutritional support PT/OT and consult speech --failed swallow study remains n.p.o. DVT/GI prophylaxis,Protonix/eliquis Discussed with RN and RT Pt. is FULL CODE ALVIN RAMSEY MD Aug 27, 2020 11:28
--- NOTE | 2020-08-27 11:40 | NUR ---
SS following up with discharge planning. SS reviewed pt chart and discussed with pt RN. Pt is currently on trach collar at eight liters nasal canula. History of COVID19. Pt currently COVID19 negative. Pt is self pay. Not a citizen. Possible decannulation soon. Pt improving with PT/OT. SS will continue to follow for discharge planning.
--- NOTE | 2020-08-27 11:41 | PDOC ---
[employer] PROGRESS NOTE Date of Service DOS: DATE: 08/27/20 TIME: 11:33 Chief Complaint Chief Complaint IMPRESSION Acute hypoxic respiratory failure requiring VENT SUPPORT STATUS post trach placement 08/06/2020 // Patient remains on trach shield Patient remains on trach shield with PMV No other concerns from nursing overnight S/P Peg tube placement 08/09 Acute hypoxic respiratory failure/ARDS /pneumonia Bilateral perihilar and basilar opacities, progressed in the left base. 07-26 COVID-19 Subsegmental bilateral PE Sepsis NSTEMI AKA Lactic acidosis Hyponatremia, RESOLVED hgb 6.5 07-27, transfused 1 unit prbc's - bled on eliquis, now on heparin GTT hypokalemia, on replacement Left pleural effusion interval development of gas in the left pleural effusion with pleural thic kening, raising question of developing empyema. Repeat BC 08/06 staph pettenkori likely contaminant Enterobacter UTI and pneumonia Treated tracheal aspirate for afb stain and cultures negative so far f/u acute hepatitis panel HIV negative CT chest abdomen and pelvis reviewed, Lt base changes present pulm team following Plan: Appreciate pulmonology INPUT Heparin has been transitioned to Xarelto Appreciate ID recommendationscontinue Remdesivir and empiric antibiotics IV fluids Discussed with RN Antibiotics per ID-- off ABX, infectious disease following increasing leukocytosis has completed full course of remdesivir continue tube feeding for nutritional support tracheal aspirate for afb stain and cultures negative so far f/u acute hepatitis panel HIV negative CT chest abdomen and pelvis reviewed, Lt base changes present pulm team following tracheal aspirate for afb stain and cultures negative so far f/u acute hepatitis panel HIV negative CT chest abdomen and pelvis reviewed, Lt base changes present pulm team following HIV negative cont augmentin and doxy 29 MIN PT EXAM, CHART REVIEW, > 50% OF TIME SPENT WITH EXAM, CHART REVIEW, PT CARE COORDINATION History of Present Illness History of Present Illness Mr Soni is 49-year-old male with past medical history of hypertension, who presented to the ED 07/04/2020 with complaints of worsening shortness of breath over the past 5 days prior to admit. Associated sore throat, fatigue, and generalized weakness. Patient was reportedly tested for COVID-19 prior to admit, but he had negative test results. His symptoms acutely worsened yesterday. Upon arrival to the ER his oxygen saturation was 60% on room air. He was placed on BiPAP and admitted to the ICU. Patient was subsequently intubated due to worsening respiratory failure. s/p remdesivir 07/08/2020. Tracheostomy 08/06/2020, PEG 08/09/2020 08/27/20: Patient seen and evaluated bedside. No acute events overnight. On tracheal collar 8L O2. Continue antibiotics, per ID. Patient strength continues to improve, working with PT. We will remove Fernandez catheter and rectal tube today. Discussed with RN. 08/12: No acute events overnight. Patient has T-max of 99.7. Currently on minimal vent settings.> 50% time spent in patient chart, labs, and imaging review and in discussion with RN and JAVIER 08/13: Overnight Tmax 100.6F. Tires out easily on vent. 08/14: 101.5 F overnight. Stool sample on urine sample taken today. No growth on cultures as of yet. Still requiring vent support via his trach. No residuals on tube feeds. CT chest with left loculated effusion 08/15: 100.4 F overnight. Left Thoracostomy tube inserted today. Still requiring vent support via trach. 08/16: T-max 100.8 F overnight. Still requiring vent support via trach. Chest tube w/o air leak. 08/17: T [id number] overnight. Still requiring vent support via trach. Chest tube still with output, no air leak. 08/18: T-max 100.4 F overnight. On trach collar 30 L O2 currently. Minimal chest tube output, improved. CTPA still with left pulmonary embolism. Afebrile overnight. On trach collar 30 L O2 currently. Minimal chest tube output chest radiograph appears improved pigtail catheter in good position. 08/19/2020 No acute events overnight. Patient is on a trach collar currently. Chest tube in place with minimal output. Pending pleural fluid analysis. Patient's chart, labs, images were reviewed and discussed with RN 08/20/20 No acute events overnight. Tolerating trach collar. Minimal CT output.> 50% time spent in patient chart, labs, and imaging review and in discussion with RN and JAVIER 08/22/2020 No acute events overnight. Patient seen and examined in next recliner. Currently on trach collar and saturating well.> 50% time spent in patient chart, labs, and imaging review and in discussion with RN and SW 08/11/2020 No acute events overnight. Patient with T-max of 100.8 overnight. Currently on minimal vent settings. Trached and pegged. Social work following for Medicare approval.> 50% time spent in patient chart, labs, and imaging review and in discussion with RN and SW 08/10/2020 no acute events overnight. Patient is on minimal vent settings. PEG tube placed yesterday. Will attempt to wean to extubate today.> 50% time spent in patient chart, labs, and imaging review and in discussion with RN and SW 08/09/2020 No acute events overnight. T-max of 100.0 F. Patient is on minimal ventilatory settings.> 50% time spent in patient chart, labs, and imaging review and in discussion with RN and SW 08/08/2020 Patient tolerating trach and ventilatory goldy support on 40% FiO2 and 5 of PEEP. Pending PEG tube placement tomorrow.> 50% time spent in patient chart, labs, and imaging review and in discussion with RN and SW 08/07/2020 No acute events overnight. Fever T-max of 101.1. Trach was placed yesterday. On minimal vent settings.> 50% time spent in patient chart, labs, and imaging review and in discussion with RN and SW 08/06/2020 No acute events overnight. Patient is afebrile. Currently on minimal vent settings. Pending trach today. Patient's chart, labs, images were reviewed and discussed with RN A total of 35 minutes of critical care time was spent in reviewing chart, labs, and images. Discussed with RN and SW. 08/05/2020 Patient seen and evaluated. No acute events, febrile overnight. Mechanically ventilated with FiO2 40%, PEEP 6. Plan for trach Thursday. 08/04/2020 Patient seen in [facility] ICU. Still with low-grade fevers. Mechanically ventilated, FiO2 40%, PEEP 6. No acute change, plan for trach Thursday. 08/03/[address] [facility]- ICU. Still with low-grade fever. He remains on vent with FiO2 100%, PEEP 12. Plan for trach on Thursday, and PEG at some point after. 08/02/2020 Patient seen and evaluated in [facility] ICU. He is febrile this morning. Still intubated mechanically ventilated with FiO2 40 %, PEEP 6. Plans for tracheostomy today. 08/01/2020 Patient seen in [facility] ICU. Patient remains slightly febrile. Mechanically ventilated, FiO2 45%, PEEP 6. Tracheostomy unable to perform yesterday, general surgery to attempt again today. Discussed with RN. 07/31/2020 Patient still spiking fevers. Patient remains on vent, FiO2 45%, PEEP 6. Tracheostomy tentatively planned for today. 07/30/[address] [facility]-19 ICU. He is febrile on vent, FiO2 45%, PEEP 6. Will attempt to speak with family about decision on trach and PEG tube. Discussed with RN. t max 102 f fio2 50% 07/21/2020 Patient no acute events reported overnight. Patient continues to require a lot of support from vent. Discussed with RN 09/19/2019 Patient continues to be pretty much the same , fio2 is at 70%, heparin 07/19/2020 Patient hypotensive today, we will follow recommendations from critical palliative care physician. Vent management as per design sales consultant, no other complaints. 07/18/2020 Patient with no acute events reported overnight, fio2 is now at 75% PEEP of 6, Vent management as per pulmonary design sales consultant slight increase in temperature noted over the lat 24 hours. Will continue to follow 07/17/2020 Patient with no acute events reported overnight, contineus to require an fio2 of 80%, continue with supportive measures. 07/16/2020 Patient with no acute events reported overnight, patient continues to require quite a bit of FiO2 at 80%. Vent management as per design sales consultant, will place a call to family members after rounding. Discussed with RN 07/15/2020 Patient seen and examined bedside in the ICU. FiO2 80% PEEP of 6.pH 7.56, PCO2 32, PO2 56, HCO3 28. Will adjust respiratory rate accordingly to correct pH.> 50% time spent in patient chart, labs, and imaging review and in discussion with RN and JAVIER 07/14/2020 Patient seen and examined bedside. FiO2 65% and PEEP of 6 on vent. ABG: pH 7.26, PCO2 77, PO2 114, HCO3 34. We will adjust respiratory rate or tidal volume to titrate pH.> 50% time spent in patient chart, labs, and imaging review and in discussion with RN and JAVIER 07/13/2020 No acute events overnight. Patient examined bedside sedated and intubated. FiO2 70% PEEP of 6. Improved ABGs.> 50% time spent in patient chart, labs, and imaging review and in discussion with RN and JAVIER 07/12/2020 Patient seen and examined in the ICU. Sedated and intubated. FiO2 65, PEEP of 8 with improved oxygenation. pH 7.4, PCO2 48, PO2 94, HCO3 30. +500 cc fluid balance.> 50% time spent in patient chart, labs, and imaging review and in discussion with RN and JAVIER 07/11/2020 Patient seen and examined bedside in the ICU. Patient continues to be intubated and sedated. FiO2 75%, PEEP of 10. pH 7.40, PCO2 44, PO2 is 135, HCO3 26. Can likely decrease FiO2 due to improved oxygenation. +173 cc in the past 24 hours 07/10/2020 Patient seen and examined bedside in ICU. Patient is intubated and sedated. FiO2 90%, PEEP of 10, respiratory rate of 30. ABG: pH is 7.41, PCO2 42, PO2 113, HCO3 26. 07/05: Patient seen in ICU, still intubated and sedated. COVID-19 pending. Patient remains on heparin infusion. Discussed with RN, will try to have central line placed per anesthesia. 07/06: Patient seen in ICU. Still FiO2 100% on vent and sedated. COVID-19 positive. Continue heparin infusion, Zosyn, steroids. 07/07: Covid positive patient seen in ICU. On vent with FiO2 100%, PEEP 10. Continue remdesivir, steroids, Zosyn. Continue to monitor 07/08: Patient seen in [facility] ICU. Still on vent with FiO2 100%, PEEP 10. Afebrile. No acute events overnight. Continue steroids, antibiotics, and rem desivir. 07/09: Patient seen and examined in the ICU. Intubated and sedated. Vent settings FiO2 90%, PEEP of 10, respiratory rate of 30. Vitals/I&O Vitals/I&O: Vital Signs Date Time Temp Pulse Resp B/P (MAP) Pulse Ox O2 Delivery O2 Flow Rate FiO2 08/27/20 11:00 97.6 97 20 113/82 (92) 98 Tracheal Collar 8.0 97.6 I & O 08/26/20 08/26/20 08/27/20 15:00 23:00 07:00 Intake Total 100 ml 100 ml Output Total 300 ml 650 ml Balance -200 ml 100 ml -650 ml Physical Exam Physical Exam: General alert awake HEENT normocephalic atraumatic , Neck trach present LUNGS: Clear anteriorly, left CTS HEART: S1-S2 no murmurs ABDOMEN: mildly distended, soft bowel sounds present Fernandez in place,fecal tube in place SKIN: No generalized rash Right upper extremity PICC line removed PIVs Clean Neuro alert awake General: Alert, No acute distress, Other (sedated ) Heart: Regular rate, No murmurs Lungs: Clear Extremities: No clubbing Skin: No significant lesion Labs Labs: Laboratory Tests Test 08/26/20 12:34 08/26/20 16:51 08/27/20 06:18 Glucose (Fingerstick) 126 mg/dL (70-99) 106 mg/dL (70-99) 123 mg/dL (70-99) Assessment and Plan Assessmemt and Plan Problems Medical Problems: (1) Acute respiratory failure with hypoxia Status: Acute (2) PRIYA (acute kidney injury) Status: Acute (3) Elevated troponin I level Status: Acute (4) Pulmonary emboli Status: Acute (5) Suspected COVID-19 virus infection Status: Acute Comment Review of Relevant I have reviewed the following items trino (where applicable) has been applied. Justifications for Admission Other Justification SHERLY DUKES MD Aug 27, 2020 11:41
--- NOTE | 2020-08-27 14:39 | NUR ---
Nursing: Patients up to chair with 1-2 assist. Fernandez catheter removed. Rectal tube removed. Will continue to monitor.
[2020-08-27 15:00] VITALS: BP 112/67
[2020-08-27 19:34] VITALS: BP 112/68
[2020-08-27 22:51] VITALS: BP 111/64
[2020-08-28 03:05] VITALS: BP 101/64
[2020-08-28] MEDS: INSULIN LISPRO 300 UNITS/3 ML VIAL. SQ SCH ×4 (06:00→17:53)
--- NOTE | 2020-08-28 06:27 | NUR ---
Deep suctioning to the omero performed at 2200 on 08/27/2020 and at 0530 on 08/28/20 under sterile technique, copious tenacious sputum retrieved, pt tolerated well. Inner cannula of trach cleaned with peroxide under sterile technique, pt tolerated well. Gown and linens changed, pt repositioned, exposed surfaces of outer cannula cleaned, neck tie not replaced as is in good clean shape.
[2020-08-28 07:00] VITALS: BP 105/67
[2020-08-28] MEDS: ANTI-COAG MONITOR BY PHARMACY. MC PRN (07:53)
--- NOTE | 2020-08-28 08:35 | PDOC ---
[employer] PROGRESS NOTE Date of Service DOS: DATE: 08/28/20 TIME: 08:31 Chief Complaint Chief Complaint IMPRESSION Acute hypoxic respiratory failure requiring VENT SUPPORT STATUS post trach placement 08/06/2020 // Patient remains on trach shield Patient remains on trach shield with PMV No other concerns from nursing overnight S/P Peg tube placement 08/09 Acute hypoxic respiratory failure/ARDS /pneumonia Bilateral perihilar and basilar opacities, progressed in the left base. 07-26 COVID-19 Subsegmental bilateral PE Sepsis NSTEMI AKA Lactic acidosis Hyponatremia, RESOLVED hgb 6.5 07-27, transfused 1 unit prbc's - bled on eliquis, now on heparin GTT hypokalemia, on replacement Left pleural effusion interval development of gas in the left pleural effusion with pleural thic kening, raising question of developing empyema. Repeat BC 08/06 staph pettenkori likely contaminant Enterobacter UTI and pneumonia Treated tracheal aspirate for afb stain and cultures negative so far f/u acute hepatitis panel HIV negative CT chest abdomen and pelvis reviewed, Lt base changes present pulm team following Plan: Appreciate pulmonology INPUT Heparin has been transitioned to Xarelto Appreciate ID recommendationscontinue Remdesivir and empiric antibiotics IV fluids Discussed with RN Antibiotics per ID-- off ABX, infectious disease following increasing leukocytosis has completed full course of remdesivir continue tube feeding for nutritional support tracheal aspirate for afb stain and cultures negative so far f/u acute hepatitis panel HIV negative CT chest abdomen and pelvis reviewed, Lt base changes present pulm team following tracheal aspirate for afb stain and cultures negative so far f/u acute hepatitis panel HIV negative CT chest abdomen and pelvis reviewed, Lt base changes present pulm team following HIV negative cont augmentin and doxy 29 MIN PT EXAM, CHART REVIEW, > 50% OF TIME SPENT WITH EXAM, CHART REVIEW, PT CARE COORDINATION History of Present Illness History of Present Illness Mr Soni is 49-year-old male with past medical history of hypertension, who presented to the ED 07/04/2020 with complaints of worsening shortness of breath over the past 5 days prior to admit. Associated sore throat, fatigue, and generalized weakness. Patient was reportedly tested for COVID-19 prior to admit, but he had negative test results. His symptoms acutely worsened yesterday. Upon arrival to the ER his oxygen saturation was 60% on room air. He was placed on BiPAP and admitted to the ICU. Patient was subsequently intubated due to worsening respiratory failure. s/p remdesivir 07/08/2020. Tracheostomy 08/06/2020, PEG 08/09/2020 08/28/2020: Patient seen and evaluated. No acute events overnight. Patient is afebrile. On trach collar 8L O2. He remains n.p.o. due to failed swallow study. Antibiotics per ID. Plans to decannulate soon. Discussed with RN. 08/27/20: Patient seen and evaluated bedside. No acute events overnight. On tracheal collar 8L O2. Continue antibiotics, per ID. Patient strength co ntinues to improve, working with PT. We will remove Fernandez catheter and rectal tube today. Discussed with RN. 08/12: No acute events overnight. Patient has T-max of 99.7. Currently on minimal vent settings.> 50% time spent in patient chart, labs, and imaging review and in discussion with RN and SW 08/13: Overnight Tmax 100.6F. Tires out easily on vent. 08/14: 101.5 F overnight. Stool sample on urine sample taken today. No growth on cultures as of yet. Still requiring vent support via his trach. No residuals on tube feeds. CT chest with left loculated effusion 08/15: 100.4 F overnight. Left Thoracostomy tube inserted today. Still requiring vent support via trach. 08/16: T-max 100.8 F overnight. Still requiring vent support via trach. Chest tube w/o air leak. 08/17: T [id number] overnight. Still requiring vent support via trach. Chest tube still with output, no air leak. 08/18: T-max 100.4 F overnight. On trach collar 30 L O2 currently. Minimal chest tube output, improved. CTPA still with left pulmonary embolism. Afebrile overnight. On trach collar 30 L O2 currently. Minimal chest tube output chest radiograph appears improved pigtail catheter in good position. 08/19/2020 No acute events overnight. Patient is on a trach collar currently. Chest tube in place with minimal output. Pending pleural fluid analysis. Patient's chart, labs, images were reviewed and discussed with RN 08/20/20 No acute events overnight. Tolerating trach collar. Minimal CT output.> 50% time spent in patient chart, labs, and imaging review and in discussion with RN and SW 08/22/2020 No acute events overnight. Patient seen and examined in next recliner. Currently on trach collar and saturating well.> 50% time spent in patient chart, labs, and imaging review and in discussion with RN and SW 08/11/2020 No acute events overnight. Patient with T-max of 100.8 overnight. Currently on minimal vent settings. Trached and pegged. Social work following for Medicare approval.> 50% time spent in patient chart, labs, and imaging review and in discussion with RN and SW 08/10/2020 no acute events overnight. Patient is on minimal vent settings. PEG tube placed yesterday. Will attempt to wean to extubate today.> 50% time spent in patient chart, labs, and imaging review and in discussion with RN and SW 08/09/2020 No acute events overnight. T-max of 100.0 F. Patient is on minimal ventilatory settings.> 50% time spent in patient chart, labs, and imaging review and in discussion with RN and SW 08/08/2020 Patient tolerating trach and ventilatory goldy support on 40% FiO2 and 5 of PEEP. Pending PEG tube placement tomorrow.> 50% time spent in patient chart, labs, and imaging review and in discussion with RN and SW 08/07/2020 No acute events overnight. Fever T-max of 101.1. Trach was placed yesterday. On minimal vent settings.> 50% time spent in patient chart, labs, and imaging review and in discussion with RN and SW 08/06/2020 No acute events overnight. Patient is afebrile. Currently on minimal vent sett ings. Pending trach today. Patient's chart, labs, images were reviewed and discussed with RN A total of 35 minutes of critical care time was spent in reviewing chart, labs, and images. Discussed with RN and SW. 08/05/2020 Patient seen and evaluated. No acute events, febrile overnight. Mechanically ventilated with FiO2 40%, PEEP 6. Plan for trach Thursday. 08/04/2020 Patient seen in [facility] ICU. Still with low-grade fevers. Mechanically ventilated, FiO2 40%, PEEP 6. No acute change, plan for trach Thursday. 08/03/2020 Patient seen in [place] [id number] ICU. Still with low-grade fever. He remains on vent with FiO2 100%, PEEP 12. Plan for trach on Thursday, and PEG at some point after. 08/02/2020 Patient seen and evaluated in [facility] ICU. He is febrile this morning. Still intubated mechanically ventilated with FiO2 40 %, PEEP 6. Plans for tracheostomy today. 08/01/2020 Patient seen in [facility] ICU. Patient remains slightly febrile. Mechanically ventilated, FiO2 45%, PEEP 6. Tracheostomy unable to perform yesterday, general surgery to attempt again today. Discussed with RN. 07/31/2020 Patient still spiking fevers. Patient remains on vent, FiO2 45%, PEEP 6. Tracheostomy tentatively planned for today. 07/30/2020 Patient seen in [place] [id number] ICU. He is febrile on vent, FiO2 45%, PEEP 6. Will attempt to speak with family about decision on trach and PEG tube. Discussed with RN. t max 102 f fio2 50% 07/21/2020 Patient no acute events reported overnight. Patient continues to require a lot of support from vent. Discussed with RN 09/19/2019 Patient continues to be pretty much the same , fio2 is at 70%, heparin 07/19/2020 Patient hypotensive today, we will follow recommendations from critical healthcare administration internship. Vent management as per [employer] product consultant, no other complaints. 07/18/2020 Patient with no acute events reported overnight, fio2 is now at 75% PEEP of 6, Vent management as per pulmonary [employer] product consultant slight increase in temperature noted over the lat 24 hours. Will continue to follow 07/17/2020 Patient with no acute events reported overnight, contineus to require an fio2 of 80%, continue with supportive measures. 07/16/2020 Patient with no acute events reported overnight, patient continues to require quite a bit of FiO2 at 80%. Vent management as per [employer] product consultant, will place a call to family members after rounding. Discussed with RN 07/15/2020 Patient seen and examined bedside in the ICU. FiO2 80% PEEP of 6.pH 7.56, PCO2 32, PO2 56, HCO3 28. Will adjust respiratory rate accordingly to correct pH.> 50% time spent in patient chart, labs, and imaging review and in discussion with RN and JAVIER 07/14/2020 Patient seen and examined bedside. FiO2 65% and PEEP of 6 on vent. ABG: pH 7.26, PCO2 77, PO2 114, HCO3 34. We will adjust respiratory rate or tidal volume to titrate pH.> 50% time spent in patient chart, labs, and imaging review and in discussion with RN and JAVIER 07/13/2020 No acute events overnight. Patient examined bedside sedated and intubated. FiO2 70% PEEP of 6. Improved ABGs.> 50% time spent in patient chart, labs, and imaging review and in discussion with RN and JAVIER 07/12/2020 Patient seen and examined in the ICU. Sedated and intubated. FiO2 65, PEEP of 8 with improved oxygenation. pH 7.4, PCO2 48, PO2 94, HCO3 30. +500 cc fluid balance.> 50% time spent in patient chart, labs, and imaging review and in discussion with RN and JAVIER 07/11/2020 Patient seen and examined bedside in the ICU. Patient continues to be intubated and sedated. FiO2 75%, PEEP of 10. pH 7.40, PCO2 44, PO2 is 135, HCO3 26. Can likely decrease FiO2 due to improved oxygenation. +173 cc in the past 24 hours 07/10/2020 Patient seen and examined bedside in ICU. Patient is intubated and sedated. FiO2 90%, PEEP of 10, respiratory rate of 30. ABG: pH is 7.41, PCO2 42, PO2 113, HCO3 26. 07/05: Patient seen in ICU, still intubated and sedated. COVID-19 pending. Patient remains on heparin infusion. Discussed with RN, will try to have central line placed per anesthesia. 07/06: Patient seen in ICU. Still FiO2 100% on vent and sedated. COVID-19 positive. Continue heparin infusion, Zosyn, steroids. 07/07: Covid positive patient seen in ICU. On vent with FiO2 100%, PEEP 10. Continue remdesivir, steroids, Zosyn. Continue to monitor 07/08: Patient seen in [facility] ICU. Still on vent with FiO2 100%, PEEP 10. Afebrile. No acute events overnight. Continue steroids, antibiotics, and remdesivir. 07/09: Patient seen and examined in the ICU. Intubated and sedated. Vent settings FiO2 90%, PEEP of 10, respiratory rate of 30. Vitals/I&O Vitals/I&O: Vital Signs Date Time Temp Pulse Resp B/P (MAP) Pulse Ox O2 Delivery O2 Flow Rate FiO2 08/28/20 07:00 99.2 77 16 105/67 (80) 99 Tracheal Collar 8.0 99.2 I & O 08/27/20 08/27/20 08/28/20 15:00 23:00 07:00 Intake Total 100 ml 900 ml 982 ml Output Total 525 ml 450 ml Balance 100 ml 375 ml 532 ml Physical Exam Physical Exam: General alert awake HEENT normocephalic atraumatic , Neck trach present LUNGS: Clear anteriorly, left CTS HEART: S1-S2 no murmurs ABDOMEN: mildly distended, soft bowel sounds present Fernandez in place,fecal tube in place SKIN: No generalized rash Right upper extremity PICC line removed PIVs Clean Neuro alert awake General: Alert, No acute distress, Other (sedated ) Heart: Regular rate, No murmurs Lungs: Clear Extremities: No clubbing Skin: No significant lesion Labs Labs: Laboratory Tests Test 08/27/20 11:33 08/27/20 18:02 08/28/20 00:24 08/28/20 05:50 Glucose (Fingerstick) 138 mg/dL (70-99) 129 mg/dL (70-99) 119 mg/dL (70-99) 129 mg/dL (70-99) Assessment and Plan Assessmemt and Plan Problems Medical Problems: (1) Acute respiratory failure with hypoxia Status: Acute (2) PRIYA (acute kidney injury) Status: Acute (3) Elevated troponin I level Status: Acute (4) Pulmonary emboli Status: Acute (5) Suspected COVID-19 virus infection Status: Acute Comment Review of Relevant I have reviewed the following items trino (where applicable) has been applied. Justifications for Admission Other Justification SHERLY DUKES MD Aug 28, 2020 08:35
--- NOTE | 2020-08-28 09:18 | PDOC ---
Infectious Disease Note Subjective Subjective Patient feels better Remains afebrile ROS ROS no n/v/d/ Vital Sign Vital Signs Vital Signs Date Time Temp Pulse Resp B/P (MAP) Pulse Ox O2 Delivery O2 Flow Rate FiO2 08/28/20 07:00 99.2 77 16 105/67 (80) 99 Tracheal Collar 8.0 99.2 Physical Exam PHYSICAL EXAM General alert awake HEENT normocephalic atraumatic , Neck trach present LUNGS: Clear anteriorly, left CTS HEART: S1-S2 no murmurs ABDOMEN: mildly distended, soft bowel sounds present Fernandez in place,fecal tube in place SKIN: No generalized rash Right upper extremity PICC line removed PIVs Clean Neuro alert awake Labs Lab Laboratory Tests Test 08/27/20 11:33 08/27/20 18:02 08/28/20 00:24 08/28/20 05:50 Glucose (Fingerstick) 138 mg/dL (70-99) 129 mg/dL (70-99) 119 mg/dL (70-99) 129 mg/dL (70-99) Micro sputum enterobacter sputum afb stain neg Objective Assessment Left pleural effusion status post CTS August 15 Left thoracocentesis with CTS pH 7.73, cell count, glucose, protein .ldh noted, cult neg Fevers Source ?? Leukocytosis improved COVID-19 positive. Status post remdesivir, steroids Acute hypoxic respiratory failure/ARDS /pneumonia H/O Bilateral pulmonary emboli. Hypertension. Bacteremia 07/23 08/25 bottles staph hominis likely contaminant Repeat blood cultures staph capitis likely contaminant Repeat BC 08/06 staph pettenkori likely contaminant Enterobacter UTI and pneumonia Treated Plan Plan of Care cont augmentin and doxy tracheal aspirate for afb stain and cultures negative so far acute hepatitis panel and HIV negative CT chest abdomen and pelvis reviewed, Lt base changes present D/W LIANE ROTHMAN,MONALISA Aponte MD Aug 28, 2020 09:18
[2020-08-28 10:23] VITALS: BP 106/66
--- NOTE | 2020-08-28 10:28 | PDOC ---
PULMONARY PROGRESS NOTES DATE: 08/28/20 TIME: 10:27 Subjective Patient remains on trach shield 8 liters afebrile No other concerns from nursing overnight Vitals Vital Signs Date Time Temp Pulse Resp B/P (MAP) Pulse Ox O2 Delivery O2 Flow Rate FiO2 08/28/20 10:23 98.6 67 16 106/66 (79) 99 Tracheal Collar 6.0 98.6 Comments ROS: No Nausea, No Chest Pain, No Abdominal Pain, No Increase Cough General: Alert, No acute distress HEENT: Other (trach-midline) Lungs: Clear Cardiovascular: S1, S2 Abdomen: Soft Neuro Exam: Alert, Oriented Extremities: No Edema Skin: Warm, Dry Labs Laboratory Tests Test 08/26/20 12:34 08/26/20 16:51 08/27/20 06:18 08/27/20 11:33 Glucose (Fingerstick) 126 mg/dL (70-99) 106 mg/dL (70-99) 123 mg/dL (70-99) 138 mg/dL (70-99) Test 08/27/20 18:02 08/28/20 00:24 08/28/20 05:50 Glucose (Fingerstick) 129 mg/dL (70-99) 119 mg/dL (70-99) 129 mg/dL (70-99) Laboratory Tests Test 08/27/20 11:33 08/27/20 18:02 08/28/20 00:24 08/28/20 05:50 Glucose (Fingerstick) 138 mg/dL (70-99) 129 mg/dL (70-99) 119 mg/dL (70-99) 129 mg/dL (70-99) Comments CXR 08/20 IMPRESSION: small left effusion, bilateral infiltrates L>R CT CHEST 08/14 1. Marked interval enlargement of left lateral effusion. This could be causing some mass effect on the mediastinum. 2. Extensive pleural-parenchymal scarring and patchy airspace opacities in the lungs compatible with the sequelae of atypical pneumonia. Electronically signed by: Gosia Li MD (08/14/2020 1:28 PM) [id number] Impression . IMPRESSION: 1. Acute hypoxemic respiratory failure./ALI/ARDS due to COVID -19, much improved. 2. Acute pulmonary embolism , still some residual PE, on Eliquis 3. COVID-19 pnemonia.now with low grade fevers, suspect VAP/ less likely empyema ( based on analysis) 5. Hypertension. 6. History of bronchitis. 7. Elevated troponin. 8. Acute kidney injury. 9. Leukocytosis. 10. Covid-[address] chest 08/14 , large left effusion, improved post chest tube left, no sig drainage or increase effusion, Plan . Continue Trach shield 8 liters Oxygen, tolerating well, wean oxygen as tolerated to keep sats above 92% Cap trach for 24 hours, plan to decannulate in am Status post tracheostomy 08/06 and S/P Peg tube placement 08/09 repeat CTA chest with residual PE. f/u, dopplers neg, re-started Eliquis 08/18 Antibiotics per ID--AFB negative, repeat cultures negative, now on po ABX Doxy and Augmentin Has completed full course of remdesivir Continue tube feeding for nutritional support PT/OT and consult speech --failed swallow study remains n.p.o. DVT/GI prophylaxis,Protonix/eliquis Discussed with RN and RT Pt. is FULL CODE NERY SALINAS MD Aug 28, 2020 10:28
[2020-08-28] MEDS: DOXYCYCLINE HYCLATE 100 MG TABLET PO SCH ×2 (10:40→23:32)
[2020-08-28] MEDS: CHOLECALCIFEROL (VITAMIN D3) 5,000 UNIT CAPSULE PO SCH (10:40)
[2020-08-28] MEDS: APIXABAN 5 MG TABLET. PO SCH ×2 (10:40→23:32)
[2020-08-28] MEDS: ZINC SULFATE 220 MG CAPSULE. PO SCH (10:40)
[2020-08-28] MEDS: LANSOPRAZOLE 30 MG TAB.RAP.DR FT SCH (10:40)
[2020-08-28] MEDS: AMOXICILLIN/K CLAV 875/125MG TABLET. PO SCH ×2 (10:41→23:32)
--- NOTE | 2020-08-28 11:00 | NUR ---
Verbal order given to cap patient's trach. No cap found in pt room. Respiratory notified and will attempt to find a cap. Pt speaking valve placed on patient prior to placing a cap. Pt tolerated speaking valve for approximately one hour and a half. Pt called and pointed to trach. Assistant Loan Processor phone utilized and patient unable to stop coughing to hold conversation. Pt HR also ranged in the 140's during coughing fit. Speaking valve removed and coughing fit subsided. Pt noted to have a copious amount of thick sputum. Pt suctioned and conversation continued with central scheduler phone. Pt stated he does not like the valve due to the fact that it causes him to continually cough. Pt educated on the physician orders for the valve and cap in order to be de-cannulated soon. Pt verbalized understanding but requested to keep the speaking valve off for now. Awaiting cap. Will continue to trial speaking valve at this time. Will continue to monitor.
[2020-08-28 14:24] VITALS: BP 119/80
[2020-08-28 19:15] VITALS: BP 112/66
[2020-08-28 22:57] VITALS: BP 104/61
[2020-08-28] MEDS: ACETAMINOPHEN 650 MG/20.3 ML SOLUTION. PEG PRN (23:32)
[2020-08-29 02:22] VITALS: BP 102/68
[2020-08-29] MEDS: INSULIN LISPRO 300 UNITS/3 ML VIAL. SQ SCH ×4 (06:00→17:58)
[2020-08-29 07:00] VITALS: BP 109/66
[2020-08-29 08:30] LABS: BASO # 0.1 x10^3/uL (0.0-0.2); BASO % 1 % (0-3); EOS % 11 % (0-3); HEMATOCRIT 30.5 % (39.0-53.0); HEMOGLOBIN 10.2 g/dL (13.0-17.5); LYMPH # 2.1 x10^3/uL (1.0-4.8); LYMPH % 21 % (24-48); MEAN CORPUSCULAR HEMOGLOBIN 31 pg (25-35); MEAN CORPUSCULAR HGB CONC 33 g/dL (31-37); MEAN CORPUSCULAR VOLUME 94 fL (79-100); MONO # 0.8 x10^3/uL (0.0-1.1); MONO % 8 % (0-9); NEUT # 5.9 x10^3/uL (1.8-7.7); NEUT % 60 % (31-73); PLATELET COUNT 262 x10^3/uL (140-400); RED BLOOD COUNT 3.26 x10^6/uL (4.30-5.70); RED CELL DISTRIBUTION WIDTH 17.8 % (11.5-14.5); WHITE BLOOD COUNT 9.9 x10^3/uL (4.0-11.0)
[2020-08-29 09:03] LABS: CALCIUM 9.3 mg/dL (8.5-10.1); CREATININE 0.7 mg/dL (0.7-1.3); GFR 119.4; POTASSIUM 3.3 mmol/L (3.5-5.1)
--- NOTE | 2020-08-29 09:36 | PDOC ---
Infectious Disease Note Subjective Subjective Patient feels better Remains afebrile ROS ROS No nausea vomiting diarrhea Vital Sign Vital Signs Vital Signs Date Time Temp Pulse Resp B/P (MAP) Pulse Ox O2 Delivery O2 Flow Rate FiO2 08/29/20 07:55 98 Tracheal Collar 8.0 08/29/20 07:00 98.2 69 20 109/66 (80) 98.2 Physical Exam PHYSICAL EXAM General alert awake HEENT normocephalic atraumatic , Neck trach present LUNGS: Clear anteriorly, left CTS HEART: S1-S2 no murmurs ABDOMEN: mildly distended, soft bowel sounds present Fernandez in place,fecal tube in place SKIN: No generalized rash Right upper extremity PICC line removed PIVs Clean Neuro alert awake Labs Lab Laboratory Tests Test 08/28/20 11:12 08/28/20 17:42 08/29/20 06:14 Glucose (Fingerstick) 133 mg/dL (70-99) 124 mg/dL (70-99) 110 mg/dL (70-99) White Blood Count 9.9 x10^3/uL (4.0-11.0) Red Blood Count 3.26 x10^6/uL (4.30-5.70) Hemoglobin 10.2 g/dL (13.0-17.5) Hematocrit 30.5 % (39.0-53.0) Mean Corpuscular Volume 94 fL (79-100) Mean Corpuscular Hemoglobin 31 pg (25-35) Mean Corpuscular Hemoglobin Concent 33 g/dL (31-37) Red Cell Distribution Width 17.8 % (11.5-14.5) Platelet Count 262 x10^3/uL (140-400) Neutrophils (%) (Auto) 60 % (31-73) Lymphocytes (%) (Auto) 21 % (24-48) Monocytes (%) (Auto) 8 % (0-9) Eosinophils (%) (Auto) 11 % (0-3) Basophils (%) (Auto) 1 % (0-3) Neutrophils # (Auto) 5.9 x10^3/uL (1.8-7.7) Lymphocytes # (Auto) 2.1 x10^3/uL (1.0-4.8) Monocytes # (Auto) 0.8 x10^3/uL (0.0-1.1) Eosinophils # (Auto) 1.0 x10^3/uL (0.0-0.7) Basophils # (Auto) 0.1 x10^3/uL (0.0-0.2) Sodium Level 136 mmol/L (136-145) Potassium Level 3.3 mmol/L (3.5-5.1) Chloride Level 98 mmol/L (98-107) Carbon Dioxide Level 32 mmol/L (21-32) Anion Gap 6 (6-14) Blood Urea Nitrogen 24 mg/dL (8-26) Creatinine 0.7 mg/dL (0.7-1.3) Estimated GFR (Cockcroft-Gault) 119.4 Glucose Level 99 mg/dL (70-99) Calcium Level 9.3 mg/dL (8.5-10.1) Micro sputum enterobacter sputum afb stain neg Objective Assessment Left pleural effusion status post CTS August 15 Left thoracocentesis with CTS pH 7.73, cell count, glucose, protein .ldh noted, cult neg Fevers Source ?? Leukocytosis improved COVID-19 positive. Status post remdesivir, steroids Acute hypoxic respiratory failure/ARDS /pneumonia H/O Bilateral pulmonary emboli. Hypertension. Bacteremia 07/23 08/25 bottles staph hominis likely contaminant Repeat blood cultures staph capitis likely contaminant Repeat BC 08/06 staph pettenkori likely contaminant Enterobacter UTI and pneumonia Treated Plan Plan of Care cont augmentin and doxy tracheal aspirate for afb stain and cultures negative so far acute hepatitis panel and HIV negative CT chest abdomen and pelvis reviewed, Lt base changes present D/W MONALISA LUCAS MD Aug 29, 2020 09:36
[2020-08-29] MEDS: APIXABAN 5 MG TABLET. PO SCH ×2 (09:59→22:48)
[2020-08-29] MEDS: DOXYCYCLINE HYCLATE 100 MG TABLET PO SCH ×2 (09:59→22:48)
[2020-08-29] MEDS: CHOLECALCIFEROL (VITAMIN D3) 5,000 UNIT CAPSULE PO SCH (09:59)
[2020-08-29] MEDS: ZINC SULFATE 220 MG CAPSULE. PO SCH (09:59)
[2020-08-29] MEDS: AMOXICILLIN/K CLAV 875/125MG TABLET. PO SCH ×2 (09:59→22:48)
[2020-08-29] MEDS: LANSOPRAZOLE 30 MG TAB.RAP.DR FT SCH (09:59)
--- NOTE | 2020-08-29 10:31 | PDOC ---
PULMONARY PROGRESS NOTES DATE: 08/29/20 TIME: 10:29 Subjective Patient remains on trach shield 6 liters intermittent use of PMV, No other concerns from nursing overnight Vitals Vital Signs Date Time Temp Pulse Resp B/P (MAP) Pulse Ox O2 Delivery O2 Flow Rate FiO2 08/29/20 07:55 98 Tracheal Collar 8.0 08/29/20 07:00 98.2 69 20 109/66 (80) 98.2 Comments ROS: No Nausea, No Chest Pain, No Abdominal Pain, No Increase Cough General: Alert, No acute distress HEENT: Other (trach-midline) Lungs: Clear Cardiovascular: S1, S2 Abdomen: Soft Neuro Exam: Alert, Oriented Extremities: No Edema Skin: Warm, Dry Labs Laboratory Tests Test 08/27/20 11:33 08/27/20 18:02 08/28/20 00:24 08/28/20 05:50 Glucose (Fingerstick) 138 mg/dL (70-99) 129 mg/dL (70-99) 119 mg/dL (70-99) 129 mg/dL (70-99) Test 08/28/20 11:12 08/28/20 17:42 08/29/20 06:14 Glucose (Fingerstick) 133 mg/dL (70-99) 124 mg/dL (70-99) 110 mg/dL (70-99) White Blood Count 9.9 x10^3/uL (4.0-11.0) Red Blood Count 3.26 x10^6/uL (4.30-5.70) Hemoglobin 10.2 g/dL (13.0-17.5) Hematocrit 30.5 % (39.0-53.0) Mean Corpuscular Volume 94 fL (79-100) Mean Corpuscular Hemoglobin 31 pg (25-35) Mean Corpuscular Hemoglobin Concent 33 g/dL (31-37) Red Cell Distribution Width 17.8 % (11.5-14.5) Platelet Count 262 x10^3/uL (140-400) Neutrophils (%) (Auto) 60 % (31-73) Lymphocytes (%) (Auto) 21 % (24-48) Monocytes (%) (Auto) 8 % (0-9) Eosinophils (%) (Auto) 11 % (0-3) Basophils (%) (Auto) 1 % (0-3) Neutrophils # (Auto) 5.9 x10^3/uL (1.8-7.7) Lymphocytes # (Auto) 2.1 x10^3/uL (1.0-4.8) Monocytes # (Auto) 0.8 x10^3/uL (0.0-1.1) Eosinophils # (Auto) 1.0 x10^3/uL (0.0-0.7) Basophils # (Auto) 0.1 x10^3/uL (0.0-0.2) Sodium Level 136 mmol/L (136-145) Potassium Level 3.3 mmol/L (3.5-5.1) Chloride Level 98 mmol/L (98-107) Carbon Dioxide Level 32 mmol/L (21-32) Anion Gap 6 (6-14) Blood Urea Nitrogen 24 mg/dL (8-26) Creatinine 0.7 mg/dL (0.7-1.3) Estimated GFR (Cockcroft-Gault) 119.4 Glucose Level 99 mg/dL (70-99) Calcium Level 9.3 mg/dL (8.5-10.1) Laboratory Tests Test 08/28/20 11:12 08/28/20 17:42 08/29/20 06:14 Glucose (Fingerstick) 133 mg/dL (70-99) 124 mg/dL (70-99) 110 mg/dL (70-99) White Blood Count 9.9 x10^3/uL (4.0-11.0) Red Blood Count 3.26 x10^6/uL (4.30-5.70) Hemoglobin 10.2 g/dL (13.0-17.5) Hematocrit 30.5 % (39.0-53.0) Mean Corpuscular Volume 94 fL (79-100) Mean Corpuscular Hemoglobin 31 pg (25-35) Mean Corpuscular Hemoglobin Concent 33 g/dL (31-37) Red Cell Distribution Width 17.8 % (11.5-14.5) Platelet Count 262 x10^3/uL (140-400) Neutrophils (%) (Auto) 60 % (31-73) Lymphocytes (%) (Auto) 21 % (24-48) Monocytes (%) (Auto) 8 % (0-9) Eosinophils (%) (Auto) 11 % (0-3) Basophils (%) (Auto) 1 % (0-3) Neutrophils # (Auto) 5.9 x10^3/uL (1.8-7.7) Lymphocytes # (Auto) 2.1 x10^3/uL (1.0-4.8) Monocytes # (Auto) 0.8 x10^3/uL (0.0-1.1) Eosinophils # (Auto) 1.0 x10^3/uL (0.0-0.7) Basophils # (Auto) 0.1 x10^3/uL (0.0-0.2) Sodium Level 136 mmol/L (136-145) Potassium Level 3.3 mmol/L (3.5-5.1) Chloride Level 98 mmol/L (98-107) Carbon Dioxide Level 32 mmol/L (21-32) Anion Gap 6 (6-14) Blood Urea Nitrogen 24 mg/dL (8-26) Creatinine 0.7 mg/dL (0.7-1.3) Estimated GFR (Cockcroft-Gault) 119.4 Glucose Level 99 mg/dL (70-99) Calcium Level 9.3 mg/dL (8.5-10.1) Comments CXR 08/20 IMPRESSION: small left effusion, bilateral infiltrates L>R CT CHEST 08/14 1. Marked interval enlargement of left lateral effusion. This could be causing some mass effect on the mediastinum. 2. Extensive pleural-parenchymal scarring and patchy airspace opacities in the lungs compatible with the sequelae of atypical pneumonia. Electronically signed by: Gosia Li MD (08/14/2020 1:28 PM) [id number] Impression . IMPRESSION: 1. Acute hypoxemic respiratory failure./ALI/ARDS due to COVID -19, much improved. 2. Acute pulmonary embolism , still some residual PE, on Eliquis 3. COVID-19 pnemonia.now with low grade fevers, suspect VAP/ less likely empyema ( based on analysis) 5. Hypertension. 6. History of bronchitis. 7. Elevated troponin. 8. Acute kidney injury. 9. Leukocytosis. 10. Covid-[address] chest 08/14 , large left effusion, improved post chest tube left, no sig drainage or increase effusion, Plan . Continue Trach shield 6 liters Oxygen, tolerating well, wean oxygen as tolerated to keep sats above 92% Cap trach for 24 hours, Status post tracheostomy 08/06 and S/P Peg tube placement 08/09 repeat CTA chest with residual PE. f/u, dopplers neg, re-started Eliquis 08/18 Antibiotics per ID--AFB negative, Continue po ABX Doxy and Augmentin Has completed full course of remdesivir Continue tube feeding for nutritional support PT/OT and consult speech -Follow speech recs DVT/GI prophylaxis---Protonix/eliquis Discussed with RN and RT Pt. is FULL CODE NERY SALINAS MD Aug 29, 2020 10:31
[2020-08-29 10:52] VITALS: BP 113/64
--- NOTE | 2020-08-29 12:34 | NUR ---
SS following up with discharge planning. SS reviewed pt chart and discussed with pt RN. Pt is currently on trach collar. Per RN, pt has been wearing speaking valve for most of the morning and is currently doing well. No trach caps available in the hospital at this time. Pt improving with PT/OT. PEG in place. COVID19 negative. Self pay. Not a citizen. SS will continue to follow for discharge planning.
--- NOTE | 2020-08-29 13:11 | PDOC ---
[employer] PROGRESS NOTE Date of Service DOS: DATE: 08/29/20 TIME: 13:02 Chief Complaint Chief Complaint IMPRESSION Acute hypoxic respiratory failure requiring VENT SUPPORT STATUS post trach placement 08/06/2020 // Patient remains on trach shield Patient remains on trach shield with PMV No other concerns from nursing overnight S/P Peg tube placement 08/09 Acute hypoxic respiratory failure/ARDS /pneumonia Bilateral perihilar and basilar opacities, progressed in the left base. 07-26 COVID-19 Subsegmental bilateral PE Sepsis NSTEMI AKA Lactic acidosis Hyponatremia, RESOLVED hgb 6.5 07-27, transfused 1 unit prbc's - bled on eliquis, now on heparin GTT hypokalemia, on replacement Left pleural effusion interval development of gas in the left pleural effusion with pleural thic kening, raising question of developing empyema. Repeat BC 08/06 staph pettenkori likely contaminant Enterobacter UTI and pneumonia Treated tracheal aspirate for afb stain and cultures negative so far f/u acute hepatitis panel HIV negative CT chest abdomen and pelvis reviewed, Lt base changes present pulm team following Plan: Appreciate pulmonology INPUT Heparin has been transitioned to Xarelto Appreciate ID recommendationscontinue Remdesivir and empiric antibiotics IV fluids Discussed with RN Antibiotics per ID-- off ABX, infectious disease following increasing leukocytosis has completed full course of remdesivir continue tube feeding for nutritional support tracheal aspirate for afb stain and cultures negative so far f/u acute hepatitis panel HIV negative CT chest abdomen and pelvis reviewed, Lt base changes present pulm team following tracheal aspirate for afb stain and cultures negative so far f/u acute hepatitis panel HIV negative CT chest abdomen and pelvis reviewed, Lt base changes present pulm team following HIV negative cont augmentin and doxy 29 MIN PT EXAM, CHART REVIEW, > 50% OF TIME SPENT WITH EXAM, CHART REVIEW, PT CARE COORDINATION History of Present Illness History of Present Illness Mr Soni is 49-year-old male with past medical history of hypertension, who presented to the ED 07/04/2020 with complaints of worsening shortness of breath over the past 5 days prior to admit. Associated sore throat, fatigue, and generalized weakness. Patient was reportedly tested for COVID-19 prior to admit, but he had negative test results. His symptoms acutely worsened yesterday. Upon arrival to the ER his oxygen saturation was 60% on room air. He was placed on BiPAP and admitted to the ICU. Patient was subsequently intubated due to worsening respiratory failure. s/p remdesivir 07/08/2020. Tracheostomy 08/06/2020, PEG 08/09/202008/29: Patient seen and evaluated. Plan was to have decannulation today, but patient began having significant coughing spells due to improperly fitting trach tube. New appropriately fitting tube was obtained, no further issues with coughing. Discussed with RN. 08/28/2020: Patient seen and evaluated. No acute events overnight. Patient is afebrile. On trach collar 8L O2. He remains n.p.o. due to failed swallow study. Antibiotics per ID. Plans to decannulate soon. Discussed with RN. 08/27/20: Patient seen and evaluated bedside. No acute events overnight. On tracheal collar 8L O2. Continue antibiotics, per ID. Patient strength continues to improve, working with PT. We will remove Fernandez catheter and rectal tube today. Discussed with RN. 08/12: No acute events overnight. Patient has T-max of 99.7. Currently on minimal vent settings.> 50% time spent in patient chart, labs, and imaging review and in discussion with RN and SW 08/13: Overnight Tmax 100.6F. Tires out easily on vent. 08/14: 101.5 F overnight. Stool sample on urine sample taken today. No growth on cultures as of yet. Still requiring vent support via his trach. No residuals on tube feeds. CT chest with left loculated effusion 08/15: 100.4 F overnight. Left Thoracostomy tube inserted today. Still requiring vent support via trach. 08/16: T-max 100.8 F overnight. Still requiring vent support via trach. Chest tube w/o air leak. 08/17: T [id number] overnight. Still requiring vent support via trach. Chest tube still with output, no air leak. 08/18: T-max 100.4 F overnight. On trach collar 30 L O2 currently. Minimal chest tube output, improved. CTPA still with left pulmonary embolism. Afebrile overnight. On trach collar 30 L O2 currently. Minimal chest tube output chest radiograph appears improved pigtail catheter in good position. 08/19/2020 No acute events overnight. Patient is on a trach collar currently. Chest tube in place with minimal output. Pending pleural fluid analysis. Patient's chart, labs, images were reviewed and discussed with RN 08/20/20 No acute events overnight. Tolerating trach collar. Minimal CT output.> 50% time spent in patient chart, labs, and imaging review and in discussion with RN and SW 08/22/2020 No acute events overnight. Patient seen and examined in next recliner. Currently on trach collar and saturating well.> 50% time spent in patient chart, labs, and imaging review and in discussion with RN and SW 08/11/2020 No acute events overnight. Patient with T-max of 100.8 overnight. Currently on minimal vent settings. Trached and pegged. Social work following for Medicare approval.> 50% time spent in patient chart, labs, and imaging review and in discussion with RN and SW 08/10/2020 no acute events overnight. Patient is on minimal vent settings. PEG tube placed yesterday. Will attempt to wean to extubate today.> 50% time spent in patient chart, labs, and imaging review and in discussion with RN and SW 08/09/2020 No acute events overnight. T-max of 100.0 F. Patient is on minimal ventilatory settings.> 50% time spent in patient chart, labs, and imaging review and in discussion with RN and SW 08/08/2020 Patient tolerating trach and ventilatory goldy support on 40% FiO2 and 5 of PEEP. Pending PEG tube placement tomorrow.> 50% time spent in patient chart, labs, and imaging review and in discussion with RN and SW 08/07/2020 No acute events overnight. Fever T-max of 101.1. Trach was placed yesterday. On minimal vent settings.> 50% time spent in patient chart, labs, and imaging review and in discussion with RN and SW 08/06/2020 No acute events overnight. Patient is afebrile. Currently on minimal vent settings. Pending trach today. Patient's chart, labs, images were reviewed and discussed with RN A total of 35 minutes of critical care time was spent in reviewing chart, labs, and images. Discussed with RN and SW. 08/05/2020 Patient seen and evaluated. No acute events, febrile overnight. Mechanically ventilated with FiO2 40%, PEEP 6. Plan for trach Thursday. 08/04/2020 Patient seen in [facility] ICU. Still with low-grade fevers. Mechanically ventilated, FiO2 40%, PEEP 6. No acute change, plan for trach Thursday. 08/03/2020 Patient seen in [facility]- ICU. Still with low-grade fever. He remains on vent with FiO2 100%, PEEP 12. Plan for trach on Thursday, and PEG at some point after. 08/02/2020 Patient seen and evaluated in [facility] ICU. He is febrile this morning. Still intubated mechanically ventilated with FiO2 40 %, PEEP 6. Plans for tracheostomy today. 08/01/2020 Patient seen in [facility] ICU. Patient remains slightly febrile. Mechanically ventilated, FiO2 45%, PEEP 6. Tracheostomy unable to perform yesterday, general surgery to attempt again today. Discussed with RN. 07/31/2020 Patient still spiking fevers. Patient remains on vent, FiO2 45%, PEEP 6. Tracheostomy tentatively planned for today. 07/30/2020 Patient seen in [place] [id number] ICU. He is febrile on vent, FiO2 45%, PEEP 6. Will attempt to speak with family about decision on trach and PEG tube. Discussed with RN. t max 102 f fio2 50% 07/21/2020 Patient no acute events reported overnight. Patient continues to require a lot of support from vent. Discussed with RN 09/19/2019 Patient continues to be pretty much the same , fio2 is at 70%, heparin 07/19/2020 Patient hypotensive today, we will follow recommendations from critical child care coordinator. Vent management as per human resource consultant, no other complaints. 07/18/2020 Patient with no acute events reported overnight, fio2 is now at 75% PEEP of 6, Vent management as per pulmonary human resource consultant slight increase in temperature noted over the lat 24 hours. Will continue to follow 07/17/2020 Patient with no acute events reported overnight, contineus to require an fio2 of 80%, continue with supportive measures. 07/16/2020 Patient with no acute events reported overnight, patient continues to require quite a bit of FiO2 at 80%. Vent management as per human resource consultant, will place a call to family members after rounding. Discussed with RN 07/15/2020 Patient seen and examined bedside in the ICU. FiO2 80% PEEP of 6.pH 7.56, PCO2 32, PO2 56, HCO3 28. Will adjust respiratory rate accordingly to correct pH.> 50% time spent in patient chart, labs, and imaging review and in discussion with RN and JAVIER 07/14/2020 Patient seen and examined bedside. FiO2 65% and PEEP of 6 on vent. ABG: pH 7.26, PCO2 77, PO2 114, HCO3 34. We will adjust respiratory rate or tidal volu me to titrate pH.> 50% time spent in patient chart, labs, and imaging review and in discussion with RN and JAVIER 07/13/2020 No acute events overnight. Patient examined bedside sedated and intubated. FiO2 70% PEEP of 6. Improved ABGs.> 50% time spent in patient chart, labs, and imaging review and in discussion with RN and JAVIER 07/12/2020 Patient seen and examined in the ICU. Sedated and intubated. FiO2 65, PEEP of 8 with improved oxygenation. pH 7.4, PCO2 48, PO2 94, HCO3 30. +500 cc fluid balance.> 50% time spent in patient chart, labs, and imaging review and in discussion with RN and JAVIER 07/11/2020 Patient seen and examined bedside in the ICU. Patient continues to be intubated and sedated. FiO2 75%, PEEP of 10. pH 7.40, PCO2 44, PO2 is 135, HCO3 26. Can likely decrease FiO2 due to improved oxygenation. +173 cc in the past 24 hours 07/10/2020 Patient seen and examined bedside in ICU. Patient is intubated and sedated. FiO2 90%, PEEP of 10, respiratory rate of 30. ABG: pH is 7.41, PCO2 42, PO2 113, HCO3 26. 07/05: Patient seen in ICU, still intubated and sedated. COVID-19 pending. Patient remains on heparin infusion. Discussed with RN, will try to have central line placed per anesthesia. 07/06: Patient seen in ICU. Still FiO2 100% on vent and sedated. COVID-19 positive. Continue heparin infusion, Zosyn, steroids. 07/07: Covid positive patient seen in ICU. On vent with FiO2 100%, PEEP 10. Continue remdesivir, steroids, Zosyn. Continue to monitor 07/08: Patient seen in [facility] ICU. Still on vent with FiO2 100%, PEEP 10. Afebrile. No acute events overnight. Continue steroids, antibiotics, and remdesivir. 07/09: Patient seen and examined in the ICU. Intubated and sedated. Vent settings FiO2 90%, PEEP of 10, respiratory rate of 30. Vitals/I&O Vitals/I&O: Vital Signs Date Time Temp Pulse Resp B/P (MAP) Pulse Ox O2 Delivery O2 Flow Rate FiO2 08/29/20 10:52 98.1 73 18 113/64 (80) 98 Tracheal Collar 6.0 98.1 I & O 08/28/20 08/28/20 08/29/20 15:00 23:00 07:00 Intake Total 221 ml 750 ml Output Total 125 ml Balance 221 ml -125 ml 750 ml Physical Exam Physical Exam: General alert awake HEENT normocephalic atraumatic , Neck trach present LUNGS: Clear anteriorly, left CTS HEART: S1-S2 no murmurs ABDOMEN: mildly distended, soft bowel sounds present Fernandez in place,fecal tube in place SKIN: No generalized rash Right upper extremity PICC line removed PIVs Clean Neuro alert awake General: Alert, No acute distress, Other (sedated ) Heart: Regular rate, No murmurs Lungs: Clear Extremities: No clubbing Skin: No significant lesion Labs Labs: Laboratory Tests Test 08/28/20 17:42 08/29/20 06:14 Glucose (Fingerstick) 124 mg/dL (70-99) 110 mg/dL (70-99) White Blood Count 9.9 x10^3/uL (4.0-11.0) Red Blood Count 3.26 x10^6/uL (4.30-5.70) Hemoglobin 10.2 g/dL (13.0-17.5) Hematocrit 30.5 % (39.0-53.0) Mean Corpuscular Volume 94 fL (79-100) Mean Corpuscular Hemoglobin 31 pg (25-35) Mean Corpuscular Hemoglobin Concent 33 g/dL (31-37) Red Cell Distribution Width 17.8 % (11.5-14.5) Platelet Count 262 x10^3/uL (140-400) Neutrophils (%) (Auto) 60 % (31-73) Lymphocytes (%) (Auto) 21 % (24-48) Monocytes (%) (Auto) 8 % (0-9) Eosinophils (%) (Auto) 11 % (0-3) Basophils (%) (Auto) 1 % (0-3) Neutrophils # (Auto) 5.9 x10^3/uL (1.8-7.7) Lymphocytes # (Auto) 2.1 x10^3/uL (1.0-4.8) Monocytes # (Auto) 0.8 x10^3/uL (0.0-1.1) Eosinophils # (Auto) 1.0 x10^3/uL (0.0-0.7) Basophils # (Auto) 0.1 x10^3/uL (0.0-0.2) Sodium Level 136 mmol/L (136-145) Potassium Level 3.3 mmol/L (3.5-5.1) Chloride Level 98 mmol/L (98-107) Carbon Dioxide Level 32 mmol/L (21-32) Anion Gap 6 (6-14) Blood Urea Nitrogen 24 mg/dL (8-26) Creatinine 0.7 mg/dL (0.7-1.3) Estimated GFR (Cockcroft-Gault) 119.4 Glucose Level 99 mg/dL (70-99) Calcium Level 9.3 mg/dL (8.5-10.1) Assessment and Plan Assessmemt and Plan Problems Medical Problems: (1) Acute respiratory failure with hypoxia Status: Acute (2) PRIYA (acute kidney injury) Status: Acute (3) Elevated troponin I level Status: Acute (4) Pulmonary emboli Status: Acute (5) Suspected COVID-19 virus infection Status: Acute Comment Review of Relevant I have reviewed the following items trino (where applicable) has been applied. Justifications for Admission Other Justification SHERLY DUKES MD Aug 29, 2020 13:11
--- NOTE | 2020-08-29 13:15 | NUR ---
Per Dr. Nance, trach capped. Pt placed on 4L NC. Pt tolerating well. Will continue to monitor.
[2020-08-29 15:00] VITALS: BP 121/74
[2020-08-29 19:45] VITALS: BP 116/71
[2020-08-29] MEDS: ACETAMINOPHEN 650 MG/20.3 ML SOLUTION. PEG PRN (22:48)
[2020-08-29 22:50] VITALS: BP 111/69
[2020-08-30 03:30] VITALS: BP 118/75
[2020-08-30] MEDS: INSULIN LISPRO 300 UNITS/3 ML VIAL. SQ SCH ×3 (06:00→12:00)
[2020-08-30 07:00] VITALS: BP_SYST 110; BP_SYST 147; BP_DIAS 68; BP_DIAS 95
[2020-08-30 07:24] LABS: CALCIUM 9.3 mg/dL (8.5-10.1); CREATININE 0.8 mg/dL (0.7-1.3); GFR 102.3; POTASSIUM 3.6 mmol/L (3.5-5.1)
[2020-08-30 07:49] LABS: BASO # 0.1 x10^3/uL (0.0-0.2); BASO % 1 % (0-3); EOS # 1.2 x10^3/uL (0.0-0.7); EOS % 12 % (0-3); HEMATOCRIT 30.2 % (39.0-53.0); LYMPH # 2.1 x10^3/uL (1.0-4.8); LYMPH % 21 % (24-48); MEAN CORPUSCULAR HEMOGLOBIN 31 pg (25-35); MEAN CORPUSCULAR HGB CONC 33 g/dL (31-37); MEAN CORPUSCULAR VOLUME 94 fL (79-100); MONO # 0.9 x10^3/uL (0.0-1.1); MONO % 9 % (0-9); NEUT # 5.9 x10^3/uL (1.8-7.7); NEUT % 58 % (31-73); PLATELET COUNT 252 x10^3/uL (140-400); RED BLOOD COUNT 3.23 x10^6/uL (4.30-5.70); RED CELL DISTRIBUTION WIDTH 17.5 % (11.5-14.5); WHITE BLOOD COUNT 10.2 x10^3/uL (4.0-11.0)
--- NOTE | 2020-08-30 08:01 | PDOC ---
Infectious Disease Note Subjective Subjective Patient feels better Remains afebrile ROS ROS No nausea vomiting diarrhea Vital Sign Vital Signs Vital Signs Date Time Temp Pulse Resp B/P (MAP) Pulse Ox O2 Delivery O2 Flow Rate FiO2 08/30/20 03:30 98.1 76 18 118/75 (89) 99 Nasal Cannula 3.5 98.1 Physical Exam PHYSICAL EXAM General alert awake HEENT normocephalic atraumatic , Neck trach present LUNGS: Clear anteriorly, left CTS HEART: S1-S2 no murmurs ABDOMEN: mildly distended, soft bowel sounds present Fernandez in place,fecal tube in place SKIN: No generalized rash Right upper extremity PICC line removed PIVs Clean Neuro alert awake Labs Lab Laboratory Tests Test 08/29/20 17:47 08/30/20 00:23 08/30/20 06:02 08/30/20 06:47 Glucose (Fingerstick) 123 mg/dL (70-99) 139 mg/dL (70-99) 133 mg/dL (70-99) White Blood Count 10.2 x10^3/uL (4.0-11.0) Red Blood Count 3.23 x10^6/uL (4.30-5.70) Hemoglobin 10.0 g/dL (13.0-17.5) Hematocrit 30.2 % (39.0-53.0) Mean Corpuscular Volume 94 fL (79-100) Mean Corpuscular Hemoglobin 31 pg (25-35) Mean Corpuscular Hemoglobin Concent 33 g/dL (31-37) Red Cell Distribution Width 17.5 % (11.5-14.5) Platelet Count 252 x10^3/uL (140-400) Neutrophils (%) (Auto) 58 % (31-73) Lymphocytes (%) (Auto) 21 % (24-48) Monocytes (%) (Auto) 9 % (0-9) Eosinophils (%) (Auto) 12 % (0-3) Basophils (%) (Auto) 1 % (0-3) Neutrophils # (Auto) 5.9 x10^3/uL (1.8-7.7) Lymphocytes # (Auto) 2.1 x10^3/uL (1.0-4.8) Monocytes # (Auto) 0.9 x10^3/uL (0.0-1.1) Eosinophils # (Auto) 1.2 x10^3/uL (0.0-0.7) Basophils # (Auto) 0.1 x10^3/uL (0.0-0.2) Sodium Level 138 mmol/L (136-145) Potassium Level 3.6 mmol/L (3.5-5.1) Chloride Level 100 mmol/L (98-107) Carbon Dioxide Level 32 mmol/L (21-32) Anion Gap 6 (6-14) Blood Urea Nitrogen 21 mg/dL (8-26) Creatinine 0.8 mg/dL (0.7-1.3) Estimated GFR (Cockcroft-Gault) 102.3 Glucose Level 108 mg/dL (70-99) Calcium Level 9.3 mg/dL (8.5-10.1) Micro sputum enterobacter sputum afb stain neg Objective Assessment Left pleural effusion status post CTS August 15 Left thoracocentesis with CTS pH 7.73, cell count, glucose, protein .ldh noted, cult neg Fevers Source ?? Leukocytosis improved COVID-19 positive. Status post remdesivir, steroids Acute hypoxic respiratory failure/ARDS /pneumonia H/O Bilateral pulmonary emboli. Hypertension. Bacteremia 07/23/ bottles staph hominis likely contaminant Repeat blood cultures staph capitis likely contaminant Repeat BC 08/06 staph pettenkori likely contaminant Enterobacter UTI and pneumonia Treated Plan Plan of Care cont augmentin and doxy tracheal aspirate for afb stain and cultures negative so far acute hepatitis panel and HIV negative CT chest abdomen and pelvis reviewed, Lt base changes present D/W MONALISA LUCAS MD Aug 30, 2020 08:01
[2020-08-30] MEDS: APIXABAN 5 MG TABLET. PO SCH ×2 (10:38→21:09)
[2020-08-30] MEDS: AMOXICILLIN/K CLAV 875/125MG TABLET. PO SCH ×2 (10:38→21:09)
[2020-08-30] MEDS: DOXYCYCLINE HYCLATE 100 MG TABLET PO SCH ×2 (10:38→21:09)
[2020-08-30] MEDS: ZINC SULFATE 220 MG CAPSULE. PO SCH (10:38)
[2020-08-30] MEDS: CHOLECALCIFEROL (VITAMIN D3) 5,000 UNIT CAPSULE PO SCH (10:38)
[2020-08-30] MEDS: LANSOPRAZOLE 30 MG TAB.RAP.DR FT SCH (10:38)
[2020-08-30 10:45] LABS: % BASOS 1 % (0-3); % EOS 16 % (0-5); % LYMPHS 22 % (24-48); % MONOS 6 % (0-10); % SEGS 55 % (35-66)
[2020-08-30 10:46] LABS: ANISOCYTOSIS SLIGHT; PLT ESTIMATE ADEQUATE (ADEQUATE)
[2020-08-30 11:00] VITALS: BP 111/65
[2020-08-30] MEDS: ANTI-COAG MONITOR BY PHARMACY. MC PRN (11:26)
--- NOTE | 2020-08-30 14:15 | NUR ---
SS following up with discharge planning. SS reviewed pt chart and discussed with pt RN. Pt is currently requiring oxygen at four liters nasal canula. COVID19 negative. Pt wearing trach cap. Possible decannulation soon. PEG in place. Self pay. Not a citizen. SS will continue to follow for discharge planning.
[2020-08-30 15:00] VITALS: BP 123/78
--- NOTE | 2020-08-30 15:45 | PDOC ---
[employer] PROGRESS NOTE Date of Service DOS: DATE: 08/30/20 TIME: 15:42 Chief Complaint Chief Complaint IMPRESSION Acute hypoxic respiratory failure requiring VENT SUPPORT STATUS post trach placement 08/06/2020 // Patient remains on trach shield Patient remains on trach shield with PMV No other concerns from nursing overnight S/P Peg tube placement 08/09 Acute hypoxic respiratory failure/ARDS /pneumonia Bilateral perihilar and basilar opacities, progressed in the left base. 07-26 COVID-19 Subsegmental bilateral PE Sepsis NSTEMI AKA Lactic acidosis Hyponatremia, RESOLVED hgb 6.5 07-27, transfused 1 unit prbc's - bled on eliquis, now on heparin GTT hypokalemia, on replacement Left pleural effusion interval development of gas in the left pleural effusion with pleural thic kening, raising question of developing empyema. Repeat BC 08/06 staph pettenkori likely contaminant Enterobacter UTI and pneumonia Treated tracheal aspirate for afb stain and cultures negative so far f/u acute hepatitis panel HIV negative CT chest abdomen and pelvis reviewed, Lt base changes present pulm team following Plan: Appreciate pulmonology INPUT Heparin has been transitioned to Xarelto Appreciate ID recommendationscontinue Remdesivir and empiric antibiotics IV fluids Discussed with RN Antibiotics per ID-- off ABX, infectious disease following increasing leukocytosis has completed full course of remdesivir continue tube feeding for nutritional support tracheal aspirate for afb stain and cultures negative so far f/u acute hepatitis panel HIV negative CT chest abdomen and pelvis reviewed, Lt base changes present pulm team following tracheal aspirate for afb stain and cultures negative so far f/u acute hepatitis panel HIV negative CT chest abdomen and pelvis reviewed, Lt base changes present pulm team following HIV negative cont augmentin and doxy 29 MIN PT EXAM, CHART REVIEW, > 50% OF TIME SPENT WITH EXAM, CHART REVIEW, PT CARE COORDINATION History of Present Illness History of Present Illness Mr Soni is 49-year-old male with past medical history of hypertension, who presented to the ED 07/04/2020 with complaints of worsening shortness of breath over the past 5 days prior to admit. Associated sore throat, fatigue, and generalized weakness. Patient was reportedly tested for COVID-19 prior to admit, but he had negative test results. His symptoms acutely worsened yesterday. Upon arrival to the ER his oxygen saturation was 60% on room air. He was placed on BiPAP and admitted to the ICU. Patient was subsequently intubated due to worsening respiratory failure. s/p remdesivir 07/08/2020. Tracheostomy 08/06/2020, PEG 08/09/202008/30: No acute events overnight. Patient seen and examined in next recliner. Trach collar in place and saturating well. Denies chest pain or nausea. Charts and labs reviewed. Continue treatment with Augmentin and doxycycline. 08/29: Patient seen and evaluated. Plan was to have decannulation today, but patient began having significant coughing spells due to improperly fitting trach tube. New appropriately fitting tube was obtained, no further issues with coughing. Discussed with RN. 08/28/2020: Patient seen and evaluated. No acute events overnight. Patient is afebrile. On trach collar 8L O2. He remains n.p.o. due to failed swallow study. Antibiotics per ID. Plans to decannulate soon. Discussed with RN. 08/27/20: Patient seen and evaluated bedside. No acute events overnight. On tracheal collar 8L O2. Continue antibiotics, per ID. Patient strength continues to improve, working with PT. We will remove Fernandez catheter and rectal tube today. Discussed with RN. 08/12: No acute events overnight. Patient has T-max of 99.7. Currently on minimal vent settings.> 50% time spent in patient chart, labs, and imaging review and in discussion with RN and SW 08/13: Overnight Tmax 100.6F. Tires out easily on vent. 08/14: 101.5 F overnight. Stool sample on urine sample taken today. No growth on cultures as of yet. Still requiring vent support via his trach. No residuals on tube feeds. CT chest with left loculated effusion 08/15: 100.4 F overnight. Left Thoracostomy tube inserted today. Still requiring vent support via trach. 08/16: T-max 100.8 F overnight. Still requiring vent support via trach. Chest tube w/o air leak. 08/17: T [id number] overnight. Still requiring vent support via trach. Chest tube still with output, no air leak. 08/18: T-max 100.4 F overnight. On trach collar 30 L O2 currently. Minimal chest tube output, improved. CTPA still with left pulmonary embolism. Afebrile overnight. On trach collar 30 L O2 currently. Minimal chest tube output chest radiograph appears improved pigtail catheter in good position. 08/19/2020 No acute events overnight. Patient is on a trach collar currently. Chest tube in place with minimal output. Pending pleural fluid analysis. Patient's chart, labs, images were reviewed and discussed with RN 08/20/20 No acute events overnight. Tolerating trach collar. Minimal CT output.> 50% time spent in patient chart, labs, and imaging review and in discussion with RN and SW 08/22/2020 No acute events overnight. Patient seen and examined in next recliner. Currently on trach collar and saturating well.> 50% time spent in patient chart, labs, and imaging review and in discussion with RN and SW 08/11/2020 No acute events overnight. Patient with T-max of 100.8 overnight. Currently on minimal vent settings. Trached and pegged. Social work following for Medicare approval.> 50% time spent in patient chart, labs, and imaging review and in discussion with RN and SW 08/10/2020 no acute events overnight. Patient is on minimal vent settings. PEG tube placed yesterday. Will attempt to wean to extubate today.> 50% time spent in patient chart, labs, and imaging review and in discussion with RN and SW 08/09/2020 No acute events overnight. T-max of 100.0 F. Patient is on minimal ventilatory settings.> 50% time spent in patient chart, labs, and imaging review and in discussion with RN and SW 08/08/2020 Patient tolerating trach and ventilatory goldy support on 40% FiO2 and 5 of PEEP. Pending PEG tube placement tomorrow.> 50% time spent in patient chart, labs, and imaging review and in discussion with RN and SW 08/07/2020 No acute events overnight. Fever T-max of 101.1. Trach was placed yesterday. On minimal vent settings.> 50% time spent in patient chart, labs, and imaging review and in discussion with RN and SW 08/06/2020 No acute events overnight. Patient is afebrile. Currently on minimal vent settings. Pending trach today. Patient's chart, labs, images were reviewed and discussed with RN A total of 35 minutes of critical care time was spent in reviewing chart, labs, and images. Discussed with RN and SW. 08/05/2020 Patient seen and evaluated. No acute events, febrile overnight. Mechanically ventilated with FiO2 40%, PEEP 6. Plan for trach Thursday. 08/04/2020 Patient seen in [facility] ICU. Still with low-grade fevers. Mechanically ventilated, FiO2 40%, PEEP 6. No acute change, plan for trach Thursday. 08/03/2020 Patient seen in [facility]- ICU. Still with low-grade fever. He remains on vent with FiO2 100%, PEEP 12. Plan for trach on Thursday, and PEG at some point after. 08/02/2020 Patient seen and evaluated in [facility] ICU. He is febrile this morning. Still intubated mechanically ventilated with FiO2 40 %, PEEP 6. Plans for tracheostomy today. 08/01/2020 Patient seen in [facility] ICU. Patient remains slightly febrile. Mechanically ventilated, FiO2 45%, PEEP 6. Tracheostomy unable to perform yesterday, general surgery to attempt again today. Discussed with RN. 07/31/2020 Patient still spiking fevers. Patient remains on vent, FiO2 45%, PEEP 6. Tr acheostomy tentatively planned for today. 07/30/2020 Patient seen in [facility]- ICU. He is febrile on vent, FiO2 45%, PEEP 6. Will attempt to speak with family about decision on trach and PEG tube. Discussed with RN. t max 102 f fio2 50% 07/21/2020 Patient no acute events reported overnight. Patient continues to require a lot of support from vent. Discussed with RN 09/19/2019 Patient continues to be pretty much the same , fio2 is at 70%, heparin 07/19/2020 Patient hypotensive today, we will follow recommendations from critical customer care team coach. Vent management as per advertising consultant, no other complaints. 07/18/2020 Patient with no acute events reported overnight, fio2 is now at 75% PEEP of 6, Vent management as per pulmonary advertising consultant slight increase in temperature noted over the lat 24 hours. Will continue to follow 07/17/2020 Patient with no acute events reported overnight, contineus to require an fio2 of 80%, continue with supportive measures. 07/16/2020 Patient with no acute events reported overnight, patient continues to require quite a bit of FiO2 at 80%. Vent management as per advertising consultant, will place a call to family members after rounding. Discussed with RN 07/15/2020 Patient seen and examined bedside in the ICU. FiO2 80% PEEP of 6.pH 7.56, PCO2 32, PO2 56, HCO3 28. Will adjust respiratory rate accordingly to correct pH.> 50% time spent in patient chart, labs, and imaging review and in discussion with RN and JAVIER 07/14/2020 Patient seen and examined bedside. FiO2 65% and PEEP of 6 on vent. ABG: pH 7.26, PCO2 77, PO2 114, HCO3 34. We will adjust respiratory rate or tidal volume to titrate pH.> 50% time spent in patient chart, labs, and imaging review and in discussion with RN and JAVIER 07/13/2020 No acute events overnight. Patient examined bedside sedated and intubated. FiO2 70% PEEP of 6. Improved ABGs.> 50% time spent in patient chart, labs, and imaging review and in discussion with RN and JAVIER 07/12/2020 Patient seen and examined in the ICU. Sedated and intubated. FiO2 65, PEEP of 8 with improved oxygenation. pH 7.4, PCO2 48, PO2 94, HCO3 30. +500 cc fluid balance.> 50% time spent in patient chart, labs, and imaging review and in discussion with RN and JAVIER 07/11/2020 Patient seen and examined bedside in the ICU. Patient continues to be intubated and sedated. FiO2 75%, PEEP of 10. pH 7.40, PCO2 44, PO2 is 135, HCO3 26. Can likely decrease FiO2 due to improved oxygenation. +173 cc in the past 24 hours 07/10/2020 Patient seen and examined bedside in ICU. Patient is intubated and sedated. FiO2 90%, PEEP of 10, respiratory rate of 30. ABG: pH is 7.41, PCO2 42, PO2 113, HCO3 26. 07/05: Patient seen in ICU, still intubated and sedated. COVID-19 pending. Patient remains on heparin infusion. Discussed with RN, will try to have central line placed per anesthesia. 07/06: Patient seen in ICU. Still FiO2 100% on vent and sedated. COVID-19 positive. Continue heparin infusion, Zosyn, steroids. 07/07: Covid positive patient seen in ICU. On vent with FiO2 100%, PEEP 10. Continue remdesivir, steroids, Zosyn. Continue to monitor 07/08: Patient seen in Covid ICU. Still on vent with FiO2 100%, PEEP 10. Afebrile. No acute events overnight. Continue steroids, antibiotics, and remdesivir. 07/09: Patient seen and examined in the ICU. Intubated and sedated. Vent settings FiO2 90%, PEEP of 10, respiratory rate of 30. Vitals/I&O Vitals/I&O: Vital Signs Date Time Temp Pulse Resp B/P (MAP) Pulse Ox O2 Delivery O2 Flow Rate FiO2 08/30/20 15:00 98.0 74 19 123/78 (93) 100 Nasal Cannula 3.5 98.0 I & O 08/29/20 08/29/20 08/30/20 15:00 23:00 07:00 Intake Total 515 ml 800 ml Output Total 80 ml 350 ml Balance 435 ml 450 ml Physical Exam Physical Exam: General alert awake HEENT normocephalic atraumatic , Neck trach present LUNGS: Clear anteriorly, left CTS HEART: S1-S2 no murmurs ABDOMEN: mildly distended, soft bowel sounds present Fernandez in place,fecal tube in place SKIN: No generalized rash Right upper extremity PICC line removed PIVs Clean Neuro alert awake General: Alert, No acute distress, Other (sedated ) Heart: Regular rate, No murmurs Lungs: Clear Extremities: No clubbing Skin: No significant lesion Labs Labs: Laboratory Tests Test 08/29/20 17:47 08/30/20 00:23 08/30/20 06:02 08/30/20 06:47 Glucose (Fingerstick) 123 mg/dL (70-99) 139 mg/dL (70-99) 133 mg/dL (70-99) White Blood Count 10.2 x10^3/uL (4.0-11.0) Red Blood Count 3.23 x10^6/uL (4.30-5.70) Hemoglobin 10.0 g/dL (13.0-17.5) Hematocrit 30.2 % (39.0-53.0) Mean Corpuscular Volume 94 fL (79-100) Mean Corpuscular Hemoglobin 31 pg (25-35) Mean Corpuscular Hemoglobin Concent 33 g/dL (31-37) Red Cell Distribution Width 17.5 % (11.5-14.5) Platelet Count 252 x10^3/uL (140-400) Neutrophils (%) (Auto) 58 % (31-73) Lymphocytes (%) (Auto) 21 % (24-48) Monocytes (%) (Auto) 9 % (0-9) Eosinophils (%) (Auto) 12 % (0-3) Basophils (%) (Auto) 1 % (0-3) Neutrophils # (Auto) 5.9 x10^3/uL (1.8-7.7) Lymphocytes # (Auto) 2.1 x10^3/uL (1.0-4.8) Monocytes # (Auto) 0.9 x10^3/uL (0.0-1.1) Eosinophils # (Auto) 1.2 x10^3/uL (0.0-0.7) Basophils # (Auto) 0.1 x10^3/uL (0.0-0.2) Segmented Neutrophils % 55 % (35-66) Lymphocytes % 22 % (24-48) Monocytes % 6 % (0-10) Eosinophils % 16 % (0-5) Basophils % 1 % (0-3) Platelet Estimate Adequate (ADEQUATE) Large Platelets Few Anisocytosis Slight Sodium Level 138 mmol/L (136-145) Potassium Level 3.6 mmol/L (3.5-5.1) Chloride Level 100 mmol/L (98-107) Carbon Dioxide Level 32 mmol/L (21-32) Anion Gap 6 (6-14) Blood Urea Nitrogen 21 mg/dL (8-26) Creatinine 0.8 mg/dL (0.7-1.3) Estimated GFR (Cockcroft-Gault) 102.3 Glucose Level 108 mg/dL (70-99) Calcium Level 9.3 mg/dL (8.5-10.1) Test 08/30/20 11:59 Glucose (Fingerstick) 124 mg/dL (70-99) Assessment and Plan Assessmemt and Plan Problems Medical Problems: (1) Acute respiratory failure with hypoxia Status: Acute (2) PRIYA (acute kidney injury) Status: Acute (3) Elevated troponin I level Status: Acute (4) Pulmonary emboli Status: Acute (5) Suspected COVID-19 virus infection Status: Acute Comment Review of Relevant I have reviewed the following items trino (where applicable) has been applied. Justifications for Admission Other Justification SHERLY DUKES MD Aug 30, 2020 15:45
[2020-08-30 19:29] VITALS: BP 124/74
--- NOTE | 2020-08-30 21:56 | NUR ---
Assessment completed vss poc explained pt denied pain will resume care and continue to monitor pt.call light in reach.
[2020-08-30 22:36] VITALS: BP 111/68
[2020-08-31] MEDS: INSULIN LISPRO 300 UNITS/3 ML VIAL. SQ SCH ×4 (00:19→17:33)
[2020-08-31 02:42] VITALS: BP 113/65
[2020-08-31 03:37] LABS: BASO # 0.1 x10^3/uL (0.0-0.2); BASO % 1 % (0-3); EOS # 1.2 x10^3/uL (0.0-0.7); EOS % 12 % (0-3); HEMATOCRIT 29.8 % (39.0-53.0); HEMOGLOBIN 10.3 g/dL (13.0-17.5); LYMPH % 20 % (24-48); MEAN CORPUSCULAR HEMOGLOBIN 32 pg (25-35); MEAN CORPUSCULAR HGB CONC 35 g/dL (31-37); MEAN CORPUSCULAR VOLUME 93 fL (79-100); MONO # 0.7 x10^3/uL (0.0-1.1); MONO % 7 % (0-9); NEUT % 59 % (31-73); PLATELET COUNT 239 x10^3/uL (140-400); RED BLOOD COUNT 3.21 x10^6/uL (4.30-5.70); RED CELL DISTRIBUTION WIDTH 18.1 % (11.5-14.5); WHITE BLOOD COUNT 10.1 x10^3/uL (4.0-11.0)
[2020-08-31 03:48] LABS: CREATININE 0.7 mg/dL (0.7-1.3); GFR 119.4; POTASSIUM 3.8 mmol/L (3.5-5.1)
[2020-08-31 07:00] VITALS: BP 119/74
[2020-08-31] MEDS: ACETAMINOPHEN 650 MG/20.3 ML SOLUTION. PEG PRN (08:44)
[2020-08-31] MEDS: LANSOPRAZOLE 30 MG TAB.RAP.DR FT SCH (08:44)
[2020-08-31] MEDS: DOXYCYCLINE HYCLATE 100 MG TABLET PO SCH ×2 (08:45→21:00)
[2020-08-31] MEDS: CHOLECALCIFEROL (VITAMIN D3) 5,000 UNIT CAPSULE PO SCH (08:45)
[2020-08-31] MEDS: AMOXICILLIN/K CLAV 875/125MG TABLET. PO SCH ×2 (08:45→21:00)
[2020-08-31] MEDS: APIXABAN 5 MG TABLET. PO SCH ×2 (08:45→21:00)
[2020-08-31] MEDS: ZINC SULFATE 220 MG CAPSULE. PO SCH (08:45)
--- NOTE | 2020-08-31 08:48 | PDOC ---
Infectious Disease Note Subjective Subjective Patient feels better Remains afebrile Vital Sign Vital Signs Vital Signs Date Time Temp Pulse Resp B/P (MAP) Pulse Ox O2 Delivery O2 Flow Rate FiO2 08/31/20 07:00 98.0 82 18 119/74 (89) 98 Nasal Cannula 3.5 98.0 Physical Exam PHYSICAL EXAM General alert awake HEENT normocephalic atraumatic , Neck trach present LUNGS: Clear anteriorly, left CTS HEART: S1-S2 no murmurs ABDOMEN: mildly distended, soft bowel sounds present Fernandez in place,fecal tube in place SKIN: No generalized rash Right upper extremity PICC line removed PIVs Clean Neuro alert awake Labs Lab Laboratory Tests Test 08/30/20 11:59 08/30/20 16:40 08/31/20 00:19 08/31/20 03:00 Glucose (Fingerstick) 124 mg/dL (70-99) 106 mg/dL (70-99) 114 mg/dL (70-99) White Blood Count 10.1 x10^3/uL (4.0-11.0) Red Blood Count 3.21 x10^6/uL (4.30-5.70) Hemoglobin 10.3 g/dL (13.0-17.5) Hematocrit 29.8 % (39.0-53.0) Mean Corpuscular Volume 93 fL (79-100) Mean Corpuscular Hemoglobin 32 pg (25-35) Mean Corpuscular Hemoglobin Concent 35 g/dL (31-37) Red Cell Distribution Width 18.1 % (11.5-14.5) Platelet Count 239 x10^3/uL (140-400) Neutrophils (%) (Auto) 59 % (31-73) Lymphocytes (%) (Auto) 20 % (24-48) Monocytes (%) (Auto) 7 % (0-9) Eosinophils (%) (Auto) 12 % (0-3) Basophils (%) (Auto) 1 % (0-3) Neutrophils # (Auto) 6.0 x10^3/uL (1.8-7.7) Lymphocytes # (Auto) 2.0 x10^3/uL (1.0-4.8) Monocytes # (Auto) 0.7 x10^3/uL (0.0-1.1) Eosinophils # (Auto) 1.2 x10^3/uL (0.0-0.7) Basophils # (Auto) 0.1 x10^3/uL (0.0-0.2) Sodium Level 139 mmol/L (136-145) Potassium Level 3.8 mmol/L (3.5-5.1) Chloride Level 100 mmol/L (98-107) Carbon Dioxide Level 33 mmol/L (21-32) Anion Gap 6 (6-14) Blood Urea Nitrogen 19 mg/dL (8-26) Creatinine 0.7 mg/dL (0.7-1.3) Estimated GFR (Cockcroft-Gault) 119.4 Glucose Level 110 mg/dL (70-99) Calcium Level 9.0 mg/dL (8.5-10.1) Test 08/31/20 05:59 Glucose (Fingerstick) 121 mg/dL (70-99) Micro sputum enterobacter sputum afb stain neg Objective Assessment Left pleural effusion status post CTS August 15 Left thoracocentesis with CTS pH 7.73, cell count, glucose, protein .ldh noted, cult neg Fevers Source ?? Leukocytosis improved COVID-19 positive. Status post remdesivir, steroids Acute hypoxic respiratory failure/ARDS /pneumonia H/O Bilateral pulmonary emboli. Hypertension. Bacteremia 07/23 08/25 bottles staph hominis likely contaminant Repeat blood cultures staph capitis likely contaminant Repeat BC 08/06 staph pettenkori likely contaminant Enterobacter UTI and pneumonia Treated Plan Plan of Care cont augmentin and doxy tracheal aspirate for afb stain and cultures negative so far acute hepatitis panel and HIV negative CT chest abdomen and pelvis reviewed, Lt base changes present D/W MONALISA LUCAS MD Aug 31, 2020 08:48
--- NOTE | 2020-08-31 08:50 | PDOC ---
PULMONARY PROGRESS NOTES DATE: 08/31/20 TIME: 08:46 Subjective Patient has remained capped for last 48 hours now on 3.5 liters N/C no increased SOA afebrile No other concerns from nursing overnight Vitals Vital Signs Date Time Temp Pulse Resp B/P (MAP) Pulse Ox O2 Delivery O2 Flow Rate FiO2 08/31/20 07:00 98.0 82 18 119/74 (89) 98 Nasal Cannula 3.5 98.0 Comments ROS: No Nausea, No Chest Pain, No Abdominal Pain, No Increase Cough General: Alert, No acute distress HEENT: Other (trach-midline) Lungs: Clear Cardiovascular: S1, S2 Abdomen: Soft Neuro Exam: Alert, Oriented Extremities: No Edema Skin: Warm, Dry Labs Laboratory Tests Test 08/29/20 17:47 08/30/20 00:23 08/30/20 06:02 08/30/20 06:47 Glucose (Fingerstick) 123 mg/dL (70-99) 139 mg/dL (70-99) 133 mg/dL (70-99) White Blood Count 10.2 x10^3/uL (4.0-11.0) Red Blood Count 3.23 x10^6/uL (4.30-5.70) Hemoglobin 10.0 g/dL (13.0-17.5) Hematocrit 30.2 % (39.0-53.0) Mean Corpuscular Volume 94 fL (79-100) Mean Corpuscular Hemoglobin 31 pg (25-35) Mean Corpuscular Hemoglobin Concent 33 g/dL (31-37) Red Cell Distribution Width 17.5 % (11.5-14.5) Platelet Count 252 x10^3/uL (140-400) Neutrophils (%) (Auto) 58 % (31-73) Lymphocytes (%) (Auto) 21 % (24-48) Monocytes (%) (Auto) 9 % (0-9) Eosinophils (%) (Auto) 12 % (0-3) Basophils (%) (Auto) 1 % (0-3) Neutrophils # (Auto) 5.9 x10^3/uL (1.8-7.7) Lymphocytes # (Auto) 2.1 x10^3/uL (1.0-4.8) Monocytes # (Auto) 0.9 x10^3/uL (0.0-1.1) Eosinophils # (Auto) 1.2 x10^3/uL (0.0-0.7) Basophils # (Auto) 0.1 x10^3/uL (0.0-0.2) Segmented Neutrophils % 55 % (35-66) Lymphocytes % 22 % (24-48) Monocytes % 6 % (0-10) Eosinophils % 16 % (0-5) Basophils % 1 % (0-3) Platelet Estimate Adequate (ADEQUATE) Large Platelets Few Anisocytosis Slight Sodium Level 138 mmol/L (136-145) Potassium Level 3.6 mmol/L (3.5-5.1) Chloride Level 100 mmol/L (98-107) Carbon Dioxide Level 32 mmol/L (21-32) Anion Gap 6 (6-14) Blood Urea Nitrogen 21 mg/dL (8-26) Creatinine 0.8 mg/dL (0.7-1.3) Estimated GFR (Cockcroft-Gault) 102.3 Glucose Level 108 mg/dL (70-99) Calcium Level 9.3 mg/dL (8.5-10.1) Test 08/30/20 11:59 08/30/20 16:40 08/31/20 00:19 08/31/20 03:00 Glucose (Fingerstick) 124 mg/dL (70-99) 106 mg/dL (70-99) 114 mg/dL (70-99) White Blood Count 10.1 x10^3/uL (4.0-11.0) Red Blood Count 3.21 x10^6/uL (4.30-5.70) Hemoglobin 10.3 g/dL (13.0-17.5) Hematocrit 29.8 % (39.0-53.0) Mean Corpuscular Volume 93 fL (79-100) Mean Corpuscular Hemoglobin 32 pg (25-35) Mean Corpuscular Hemoglobin Concent 35 g/dL (31-37) Red Cell Distribution Width 18.1 % (11.5-14.5) Platelet Count 239 x10^3/uL (140-400) Neutrophils (%) (Auto) 59 % (31-73) Lymphocytes (%) (Auto) 20 % (24-48) Monocytes (%) (Auto) 7 % (0-9) Eosinophils (%) (Auto) 12 % (0-3) Basophils (%) (Auto) 1 % (0-3) Neutrophils # (Auto) 6.0 x10^3/uL (1.8-7.7) Lymphocytes # (Auto) 2.0 x10^3/uL (1.0-4.8) Monocytes # (Auto) 0.7 x10^3/uL (0.0-1.1) Eosinophils # (Auto) 1.2 x10^3/uL (0.0-0.7) Basophils # (Auto) 0.1 x10^3/uL (0.0-0.2) Sodium Level 139 mmol/L (136-145) Potassium Level 3.8 mmol/L (3.5-5.1) Chloride Level 100 mmol/L (98-107) Carbon Dioxide Level 33 mmol/L (21-32) Anion Gap 6 (6-14) Blood Urea Nitrogen 19 mg/dL (8-26) Creatinine 0.7 mg/dL (0.7-1.3) Estimated GFR (Cockcroft-Gault) 119.4 Glucose Level 110 mg/dL (70-99) Calcium Level 9.0 mg/dL (8.5-10.1) Test 08/31/20 05:59 Glucose (Fingerstick) 121 mg/dL (70-99) Laboratory Tests Test 08/30/20 11:59 08/30/20 16:40 08/31/20 00:19 08/31/20 03:00 Glucose (Fingerstick) 124 mg/dL (70-99) 106 mg/dL (70-99) 114 mg/dL (70-99) White Blood Count 10.1 x10^3/uL (4.0-11.0) Red Blood Count 3.21 x10^6/uL (4.30-5.70) Hemoglobin 10.3 g/dL (13.0-17.5) Hematocrit 29.8 % (39.0-53.0) Mean Corpuscular Volume 93 fL (79-100) Mean Corpuscular Hemoglobin 32 pg (25-35) Mean Corpuscular Hemoglobin Concent 35 g/dL (31-37) Red Cell Distribution Width 18.1 % (11.5-14.5) Platelet Count 239 x10^3/uL (140-400) Neutrophils (%) (Auto) 59 % (31-73) Lymphocytes (%) (Auto) 20 % (24-48) Monocytes (%) (Auto) 7 % (0-9) Eosinophils (%) (Auto) 12 % (0-3) Basophils (%) (Auto) 1 % (0-3) Neutrophils # (Auto) 6.0 x10^3/uL (1.8-7.7) Lymphocytes # (Auto) 2.0 x10^3/uL (1.0-4.8) Monocytes # (Auto) 0.7 x10^3/uL (0.0-1.1) Eosinophils # (Auto) 1.2 x10^3/uL (0.0-0.7) Basophils # (Auto) 0.1 x10^3/uL (0.0-0.2) Sodium Level 139 mmol/L (136-145) Potassium Level 3.8 mmol/L (3.5-5.1) Chloride Level 100 mmol/L (98-107) Carbon Dioxide Level 33 mmol/L (21-32) Anion Gap 6 (6-14) Blood Urea Nitrogen 19 mg/dL (8-26) Creatinine 0.7 mg/dL (0.7-1.3) Estimated GFR (Cockcroft-Gault) 119.4 Glucose Level 110 mg/dL (70-99) Calcium Level 9.0 mg/dL (8.5-10.1) Test 08/31/20 05:59 Glucose (Fingerstick) 121 mg/dL (70-99) Comments CXR 08/20 IMPRESSION: small left effusion, bilateral infiltrates L>R CT CHEST 08/14 1. Marked interval enlargement of left lateral effusion. This could be causing some mass effect on the mediastinum. 2. Extensive pleural-parenchymal scarring and patchy airspace opacities in the lungs compatible with the sequelae of atypical pneumonia. Electronically signed by: Gosia Li MD (08/14/2020 1:28 PM) [id number] Impression . IMPRESSION: 1. Acute hypoxemic respiratory failure./ALI/ARDS due to COVID -19, much impro travis, now decanulated 2. Acute pulmonary embolism , still some residual PE, on Eliquis 3. COVID-19 pnemonia.now with low grade fevers, suspect VAP/ less likely empyema ( based on analysis) 5. Hypertension. 6. History of bronchitis. 7. Elevated troponin. 8. Acute kidney injury. 9. Leukocytosis. 10. Covid-[address] chest 08/14 , large left effusion, improved post chest tube left, no sig drainage or increase effusion, Plan . Continue supplemental oxygen, tolerating well, wean oxygen as tolerated to keep sats above 92%, now on 3.5 liters N/C Tracheotomy removed on 08/31/20 Status post tracheostomy 08/06 and S/P Peg tube placement 08/09 -- now decanulated repeat CTA chest with residual PE. f/u, dopplers neg, re-started Eliquis 08/18 Antibiotics per ID--AFB negative, Continue po ABX Doxy and Augmentin Has completed full course of remdesivir Continue tube feeding for nutritional support PT/OT and consult speech -Follow speech recs DVT/GI prophylaxis---Protonix/eliquis Discussed with RN and RT Pt. is FULL CODE we will sign off at this time please call, with any questions or concerns NERY SALINAS MD Aug 31, 2020 08:50
[2020-08-31 10:35] VITALS: BP 124/82
--- NOTE | 2020-08-31 14:15 | PDOC ---
[employer] PROGRESS NOTE Date of Service DOS: DATE: 08/31/20 TIME: 14:14 Chief Complaint Chief Complaint IMPRESSION Acute hypoxic respiratory failure requiring VENT SUPPORT STATUS post trach placement 08/06/2020 // Patient remains on trach shield Patient remains on trach shield with PMV No other concerns from nursing overnight S/P Peg tube placement 08/09 Acute hypoxic respiratory failure/ARDS /pneumonia Bilateral perihilar and basilar opacities, progressed in the left base. 07-26 COVID-19 Subsegmental bilateral PE Sepsis NSTEMI AKA Lactic acidosis Hyponatremia, RESOLVED hgb 6.5 07-27, transfused 1 unit prbc's - bled on eliquis, now on heparin GTT hypokalemia, on replacement Left pleural effusion interval development of gas in the left pleural effusion with pleural thic kening, raising question of developing empyema. Repeat BC 08/06 staph pettenkori likely contaminant Enterobacter UTI and pneumonia Treated tracheal aspirate for afb stain and cultures negative so far f/u acute hepatitis panel HIV negative CT chest abdomen and pelvis reviewed, Lt base changes present pulm team following Plan: Appreciate pulmonology INPUT Heparin has been transitioned to Xarelto Appreciate ID recommendationscontinue Remdesivir and empiric antibiotics IV fluids Discussed with RN Antibiotics per ID-- off ABX, infectious disease following increasing leukocytosis has completed full course of remdesivir continue tube feeding for nutritional support tracheal aspirate for afb stain and cultures negative so far f/u acute hepatitis panel HIV negative CT chest abdomen and pelvis reviewed, Lt base changes present pulm team following tracheal aspirate for afb stain and cultures negative so far f/u acute hepatitis panel HIV negative CT chest abdomen and pelvis reviewed, Lt base changes present pulm team following HIV negative cont augmentin and doxy 29 MIN PT EXAM, CHART REVIEW, > 50% OF TIME SPENT WITH EXAM, CHART REVIEW, PT CARE COORDINATION History of Present Illness History of Present Illness Mr Soni is 49-year-old male with past medical history of hypertension, who presented to the ED 07/04/2020 with complaints of worsening shortness of breath over the past 5 days prior to admit. Associated sore throat, fatigue, and generalized weakness. Patient was reportedly tested for COVID-19 prior to admit, but he had negative test results. His symptoms acutely worsened yesterday. Upon arrival to the ER his oxygen saturation was 60% on room air. He was placed on BiPAP and admitted to the ICU. Patient was subsequently intubated due to worsening respiratory failure. s/p remdesivir 07/08/2020. Tracheostomy 08/06/2020, PEG 08/09/202008/31: Patient seen at bedside. Afebrile, no acute events overnight. He had decannulation of his tracheostomy tube today. Currently breathing on room air. I believe he is still to have ST swallow eval today as well. Discussed with RN. 08/30: No acute events overnight. Patient seen and examined in next recliner. Trach collar in place and saturating well. Denies chest pain or nausea. Charts and labs reviewed. Continue treatment with Augmentin and doxycycline. 08/29: Patient seen and evaluated. Plan was to have decannulation today, but patient began having significant coughing spells due to improperly fitting trach tube. New appropriately fitting tube was obtained, no further issues with coughing. Discussed with RN. 08/28/2020: Patient seen and evaluated. No acute events overnight. Patient is afebrile. On trach collar 8L O2. He remains n.p.o. due to failed swallow study. Antibiotics per ID. Plans to decannulate soon. Discussed with RN. 08/27/20: Patient seen and evaluated bedside. No acute events overnight. On tracheal collar 8L O2. Continue antibiotics, per ID. Patient strength continues to improve, working with PT. We will remove Fernandez catheter and rectal tube today. Discussed with RN. 08/12: No acute events overnight. Patient has T-max of 99.7. Currently on minimal vent settings.> 50% time spent in patient chart, labs, and imaging review and in discussion with RN and SW 08/13: Overnight Tmax 100.6F. Tires out easily on vent. 08/14: 101.5 F overnight. Stool sample on urine sample taken today. No growth on cultures as of yet. Still requiring vent support via his trach. No residuals on tube feeds. CT chest with left loculated effusion 08/15: 100.4 F overnight. Left Thoracostomy tube inserted today. Still requiring vent support via trach. 08/16: T-max 100.8 F overnight. Still requiring vent support via trach. Chest tube w/o air leak. 08/17: T [id number] overnight. Still requiring vent support via trach. Chest tube still with output, no air leak. 08/18: T-max 100.4 F overnight. On trach collar 30 L O2 currently. Minimal chest tube output, improved. CTPA still with left pulmonary embolism. Afebrile overnight. On trach collar 30 L O2 currently. Minimal chest tube output chest radiograph appears improved pigtail catheter in good position. 08/19/2020 No acute events overnight. Patient is on a trach collar currently. Chest tube in place with minimal output. Pending pleural fluid analysis. Patient's chart, labs, images were reviewed and discussed with RN 08/20/20 No acute events overnight. Tolerating trach collar. Minimal CT output.> 50% time spent in patient chart, labs, and imaging review and in discussion with RN and SW 08/22/2020 No acute events overnight. Patient seen and examined in next recliner. Currently on trach collar and saturating well.> 50% time spent in patient chart, labs, and imaging review and in discussion with RN and SW 08/11/2020 No acute events overnight. Patient with T-max of 100.8 overnight. Currently on minimal vent settings. Trached and pegged. Social work following for Medicare approval.> 50% time spent in patient chart, labs, and imaging review and in dis cussion with RN and SW 08/10/2020 no acute events overnight. Patient is on minimal vent settings. PEG tube placed yesterday. Will attempt to wean to extubate today.> 50% time spent in patient chart, labs, and imaging review and in discussion with RN and SW 08/09/2020 No acute events overnight. T-max of 100.0 F. Patient is on minimal ventilatory settings.> 50% time spent in patient chart, labs, and imaging review and in discussion with RN and SW 08/08/2020 Patient tolerating trach and ventilatory goldy support on 40% FiO2 and 5 of PEEP. Pending PEG tube placement tomorrow.> 50% time spent in patient chart, labs, and imaging review and in discussion with RN and SW 08/07/2020 No acute events overnight. Fever T-max of 101.1. Trach was placed yesterday. On minimal vent settings.> 50% time spent in patient chart, labs, and imaging review and in discussion with RN and SW 08/06/2020 No acute events overnight. Patient is afebrile. Currently on minimal vent settings. Pending trach today. Patient's chart, labs, images were reviewed and discussed with RN A total of 35 minutes of critical care time was spent in reviewing chart, labs, and images. Discussed with RN and SW. 08/05/2020 Patient seen and evaluated. No acute events, febrile overnight. Mechanically ventilated with FiO2 40%, PEEP 6. Plan for trach Thursday. 08/04/2020 Patient seen in [facility] ICU. Still with low-grade fevers. Mechanically ventilated, FiO2 40%, PEEP 6. No acute change, plan for trach Thursday. 08/03/2020 Patient seen in [facility]- ICU. Still with low-grade fever. He remains on vent with FiO2 100%, PEEP 12. Plan for trach on Thursday, and PEG at some point after. 08/02/2020 Patient seen and evaluated in [facility] ICU. He is febrile this morning. Still intubated mechanically ventilated with FiO2 40 %, PEEP 6. Plans for tracheostomy today. 08/01/2020 Patient seen in [facility] ICU. Patient remains slightly febrile. Mechanically ventilated, FiO2 45%, PEEP 6. Tracheostomy unable to perform yesterday, general surgery to attempt again today. Discussed with RN. 07/31/2020 Patient still spiking fevers. Patient remains on vent, FiO2 45%, PEEP 6. Tracheostomy tentatively planned for today. 07/30/2020 Patient seen in [facility]- ICU. He is febrile on vent, FiO2 45%, PEEP 6. Will attempt to speak with family about decision on trach and PEG tube. Discussed with RN. t max 102 f fio2 50% 07/21/2020 Patient no acute events reported overnight. Patient continues to require a lot of support from vent. Discussed with RN 09/19/2019 Patient continues to be pretty much the same , fio2 is at 70%, heparin 07/19/2020 Patient hypotensive today, we will follow recommendations from critical care rep. Vent management as per datastage consultant, no other complaints. 07/18/2020 Patient with no acute events reported overnight, fio2 is now at 75% PEEP of 6, Vent management as per pulmonary datastage consultant slight increase in temperature noted over the lat 24 hours. Will continue to follow 07/17/2020 Patient with no acute events reported overnight, contineus to require an fio2 of 80%, continue with supportive measures. 07/16/2020 Patient with no acute events reported overnight, patient continues to require quite a bit of FiO2 at 80%. Vent management as per datastage consultant, will place a call to family members after rounding. Discussed with RN 07/15/2020 Patient seen and examined bedside in the ICU. FiO2 80% PEEP of 6.pH 7.56, PCO2 32, PO2 56, HCO3 28. Will adjust respiratory rate accordingly to correct pH.> 50% time spent in patient chart, labs, and imaging review and in discussion with RN and JAVIER 07/14/2020 Patient seen and examined bedside. FiO2 65% and PEEP of 6 on vent. ABG: pH 7.26, PCO2 77, PO2 114, HCO3 34. We will adjust respiratory rate or tidal volume to titrate pH.> 50% time spent in patient chart, labs, and imaging review and in discussion with RN and JAVIER 07/13/2020 No acute events overnight. Patient examined bedside sedated and intubated. FiO2 70% PEEP of 6. Improved ABGs.> 50% time spent in patient chart, labs, and imaging review and in discussion with RN and JAVIER 07/12/2020 Patient seen and examined in the ICU. Sedated and intubated. FiO2 65, PEEP of 8 with improved oxygenation. pH 7.4, PCO2 48, PO2 94, HCO3 30. +500 cc fluid balance.> 50% time spent in patient chart, labs, and imaging review and in discussion with RN and JAVIER 07/11/2020 Patient seen and examined bedside in the ICU. Patient continues to be intubated and sedated. FiO2 75%, PEEP of 10. pH 7.40, PCO2 44, PO2 is 135, HCO3 26. Can likely decrease FiO2 due to improved oxygenation. +173 cc in the past 24 hours 07/10/2020 Patient seen and examined bedside in ICU. Patient is intubated and sedated. FiO2 90%, PEEP of 10, respiratory rate of 30. ABG: pH is 7.41, PCO2 42, PO2 113, HCO3 26. 07/05: Patient seen in ICU, still intubated and sedated. COVID-19 pending. Patient remains on heparin infusion. Discussed with RN, will try to have central line placed per anesthesia. 07/06: Patient seen in ICU. Still FiO2 100% on vent and sedated. COVID-19 positive. Continue heparin infusion, Zosyn, steroids. 07/07: Covid positive patient seen in ICU. On vent with FiO2 100%, PEEP 10. Continue remdesivir, steroids, Zosyn. Continue to monitor 07/08: Patient seen in Covid ICU. Still on vent with FiO2 100%, PEEP 10. Afebrile. No acute events overnight. Continue steroids, antibiotics, and remdesivir. 07/09: Patient seen and examined in the ICU. Intubated and sedated. Vent settings FiO2 90%, PEEP of 10, respiratory rate of 30. Vitals/I&O Vitals/I&O: Vital Signs Date Time Temp Pulse Resp B/P (MAP) Pulse Ox O2 Delivery O2 Flow Rate FiO2 08/31/20 10:35 98.0 89 18 124/82 (96) 95 Nasal Cannula 3.5 98.0 I & O 08/30/20 08/30/20 08/31/20 15:00 23:00 07:00 Intake Total 700 ml 1000 ml 973 ml Output Total 320 ml 200 ml 450 ml Balance 380 ml 800 ml 523 ml Physical Exam Physical Exam: General alert awake HEENT normocephalic atraumatic , Neck trach present LUNGS: Clear anteriorly, left CTS HEART: S1-S2 no murmurs ABDOMEN: mildly distended, soft bowel sounds present Fernandez in place,fecal tube in place SKIN: No generalized rash Right upper extremity PICC line removed PIVs Clean Neuro alert awake General: Alert, No acute distress, Other (sedated ) Heart: Regular rate, No murmurs Lungs: Clear Extremities: No clubbing Skin: No significant lesion Labs Labs: Laboratory Tests Test 08/30/20 16:40 08/31/20 00:19 08/31/20 03:00 08/31/20 05:59 Glucose (Fingerstick) 106 mg/dL (70-99) 114 mg/dL (70-99) 121 mg/dL (70-99) White Blood Count 10.1 x10^3/uL (4.0-11.0) Red Blood Count 3.21 x10^6/uL (4.30-5.70) Hemoglobin 10.3 g/dL (13.0-17.5) Hematocrit 29.8 % (39.0-53.0) Mean Corpuscular Volume 93 fL (79-100) Mean Corpuscular Hemoglobin 32 pg (25-35) Mean Corpuscular Hemoglobin Concent 35 g/dL (31-37) Red Cell Distribution Width 18.1 % (11.5-14.5) Platelet Count 239 x10^3/uL (140-400) Neutrophils (%) (Auto) 59 % (31-73) Lymphocytes (%) (Auto) 20 % (24-48) Monocytes (%) (Auto) 7 % (0-9) Eosinophils (%) (Auto) 12 % (0-3) Basophils (%) (Auto) 1 % (0-3) Neutrophils # (Auto) 6.0 x10^3/uL (1.8-7.7) Lymphocytes # (Auto) 2.0 x10^3/uL (1.0-4.8) Monocytes # (Auto) 0.7 x10^3/uL (0.0-1.1) Eosinophils # (Auto) 1.2 x10^3/uL (0.0-0.7) Basophils # (Auto) 0.1 x10^3/uL (0.0-0.2) Sodium Level 139 mmol/L (136-145) Potassium Level 3.8 mmol/L (3.5-5.1) Chloride Level 100 mmol/L (98-107) Carbon Dioxide Level 33 mmol/L (21-32) Anion Gap 6 (6-14) Blood Urea Nitrogen 19 mg/dL (8-26) Creatinine 0.7 mg/dL (0.7-1.3) Estimated GFR (Cockcroft-Gault) 119.4 Glucose Level 110 mg/dL (70-99) Calcium Level 9.0 mg/dL (8.5-10.1) Test 08/31/20 11:15 Glucose (Fingerstick) 144 mg/dL (70-99) Assessment and Plan Assessmemt and Plan Problems Medical Problems: (1) Acute respiratory failure with hypoxia Status: Acute (2) PRIYA (acute kidney injury) Status: Acute (3) Elevated troponin I level Status: Acute (4) Pulmonary emboli Status: Acute (5) Suspected COVID-19 virus infection Status: Acute Comment Review of Relevant I have reviewed the following items trino (where applicable) has been applied. Justifications for Admission Other Justification SHERLY DUKES MD Aug 31, 2020 14:15
--- NOTE | 2020-08-31 14:18 | NUR ---
RD notified by SS that pt will likely need education and resources regarding tube feeding at discharge, pt does not have insurance. If pt needs to be discharged w/need for full nutrition needs met from TFs via PEG, recommend Ensure supplements bolus via feeding tube per following: Ensure Enlive 5x/day w/~100 ml water flush before and after each supplement bolus; each supplement pr ovides 350 calories, 20 grams protein, and ~180 ml water. Ensure Enlive boluses 5x/day w/recommended flushes would provide 1750 total calories (~97% est needs), 100 grams protein (~100% est needs) and 1900 ml total water (~100% est hydration needs). Provided RN w/coupons for Ensure. RD available [phone] as needed, will continue to follow up as able/scheduled.
[2020-08-31 14:21] VITALS: BP 119/83
--- NOTE | 2020-08-31 14:45 | NUR ---
SS following up with discharge planning. Pt is currently on room air. Trach removed. COVID19 negative. Pt NPO. ST following. PEG in place. Self pay. Not a citizen. SS will continue to follow for discharge planning.
[2020-08-31 19:23] VITALS: BP 124/80
[2020-08-31 22:59] VITALS: BP 139/79
[2020-09-01 03:17] VITALS: BP 151/73
[2020-09-01 05:31] LABS: BASO # 0.1 x10^3/uL (0.0-0.2); BASO % 1 % (0-3); EOS % 10 % (0-3); HEMATOCRIT 28.8 % (39.0-53.0); HEMOGLOBIN 9.7 g/dL (13.0-17.5); LYMPH # 2.2 x10^3/uL (1.0-4.8); LYMPH % 22 % (24-48); MEAN CORPUSCULAR HEMOGLOBIN 31 pg (25-35); MEAN CORPUSCULAR HGB CONC 34 g/dL (31-37); MEAN CORPUSCULAR VOLUME 93 fL (79-100); MONO # 0.8 x10^3/uL (0.0-1.1); MONO % 8 % (0-9); NEUT # 5.9 x10^3/uL (1.8-7.7); NEUT % 59 % (31-73); PLATELET COUNT 234 x10^3/uL (140-400); RED CELL DISTRIBUTION WIDTH 18.2 % (11.5-14.5)
[2020-09-01 05:36] LABS: CALCIUM 8.9 mg/dL (8.5-10.1); CREATININE 0.6 mg/dL (0.7-1.3); GFR 142.6; POTASSIUM 3.5 mmol/L (3.5-5.1)
[2020-09-01] MEDS: INSULIN LISPRO 300 UNITS/3 ML VIAL. SQ SCH ×4 (06:00→18:00)
[2020-09-01 07:00] VITALS: BP 121/77
--- NOTE | 2020-09-01 09:16 | PDOC ---
PULMONARY PROGRESS NOTES DATE: 09/01/20 TIME: 09:15 Subjective decanulated 08/31 on 3.5 liters N/C no increased SOA afebrile No other concerns from nursing overnight Vitals Vital Signs Date Time Temp Pulse Resp B/P (MAP) Pulse Ox O2 Delivery O2 Flow Rate FiO2 09/01/20 08:00 Room Air 09/01/20 07:00 98.3 83 18 121/77 (92) 94 98.3 08/31/20 14:21 4.0 Comments ROS: No Nausea, No Chest Pain, No Abdominal Pain, No Increase Cough General: Alert, No acute distress HEENT: Other (trach-midline) Lungs: Clear Cardiovascular: S1, S2 Abdomen: Soft Neuro Exam: Alert, Oriented Extremities: No Edema Skin: Warm, Dry Labs Laboratory Tests Test 08/30/20 11:59 08/30/20 16:40 08/31/20 00:19 08/31/20 03:00 Glucose (Fingerstick) 124 mg/dL (70-99) 106 mg/dL (70-99) 114 mg/dL (70-99) White Blood Count 10.1 x10^3/uL (4.0-11.0) Red Blood Count 3.21 x10^6/uL (4.30-5.70) Hemoglobin 10.3 g/dL (13.0-17.5) Hematocrit 29.8 % (39.0-53.0) Mean Corpuscular Volume 93 fL (79-100) Mean Corpuscular Hemoglobin 32 pg (25-35) Mean Corpuscular Hemoglobin Concent 35 g/dL (31-37) Red Cell Distribution Width 18.1 % (11.5-14.5) Platelet Count 239 x10^3/uL (140-400) Neutrophils (%) (Auto) 59 % (31-73) Lymphocytes (%) (Auto) 20 % (24-48) Monocytes (%) (Auto) 7 % (0-9) Eosinophils (%) (Auto) 12 % (0-3) Basophils (%) (Auto) 1 % (0-3) Neutrophils # (Auto) 6.0 x10^3/uL (1.8-7.7) Lymphocytes # (Auto) 2.0 x10^3/uL (1.0-4.8) Monocytes # (Auto) 0.7 x10^3/uL (0.0-1.1) Eosinophils # (Auto) 1.2 x10^3/uL (0.0-0.7) Basophils # (Auto) 0.1 x10^3/uL (0.0-0.2) Sodium Level 139 mmol/L (136-145) Potassium Level 3.8 mmol/L (3.5-5.1) Chloride Level 100 mmol/L (98-107) Carbon Dioxide Level 33 mmol/L (21-32) Anion Gap 6 (6-14) Blood Urea Nitrogen 19 mg/dL (8-26) Creatinine 0.7 mg/dL (0.7-1.3) Estimated GFR (Cockcroft-Gault) 119.4 Glucose Level 110 mg/dL (70-99) Calcium Level 9.0 mg/dL (8.5-10.1) Test 08/31/20 05:59 08/31/20 11:15 08/31/20 17:21 09/01/20 00:44 Glucose (Fingerstick) 121 mg/dL (70-99) 144 mg/dL (70-99) 119 mg/dL (70-99) 123 mg/dL (70-99) Test 09/01/20 05:00 09/01/20 06:01 White Blood Count 10.0 x10^3/uL (4.0-11.0) Red Blood Count 3.10 x10^6/uL (4.30-5.70) Hemoglobin 9.7 g/dL (13.0-17.5) Hematocrit 28.8 % (39.0-53.0) Mean Corpuscular Volume 93 fL (79-100) Mean Corpuscular Hemoglobin 31 pg (25-35) Mean Corpuscular Hemoglobin Concent 34 g/dL (31-37) Red Cell Distribution Width 18.2 % (11.5-14.5) Platelet Count 234 x10^3/uL (140-400) Neutrophils (%) (Auto) 59 % (31-73) Lymphocytes (%) (Auto) 22 % (24-48) Monocytes (%) (Auto) 8 % (0-9) Eosinophils (%) (Auto) 10 % (0-3) Basophils (%) (Auto) 1 % (0-3) Neutrophils # (Auto) 5.9 x10^3/uL (1.8-7.7) Lymphocytes # (Auto) 2.2 x10^3/uL (1.0-4.8) Monocytes # (Auto) 0.8 x10^3/uL (0.0-1.1) Eosinophils # (Auto) 1.0 x10^3/uL (0.0-0.7) Basophils # (Auto) 0.1 x10^3/uL (0.0-0.2) Sodium Level 137 mmol/L (136-145) Potassium Level 3.5 mmol/L (3.5-5.1) Chloride Level 99 mmol/L (98-107) Carbon Dioxide Level 30 mmol/L (21-32) Anion Gap 8 (6-14) Blood Urea Nitrogen 14 mg/dL (8-26) Creatinine 0.6 mg/dL (0.7-1.3) Estimated GFR (Cockcroft-Gault) 142.6 Glucose Level 122 mg/dL (70-99) Calcium Level 8.9 mg/dL (8.5-10.1) Glucose (Fingerstick) 128 mg/dL (70-99) Laboratory Tests Test 08/31/20 11:15 08/31/20 17:21 09/01/20 00:44 09/01/20 05:00 Glucose (Fingerstick) 144 mg/dL (70-99) 119 mg/dL (70-99) 123 mg/dL (70-99) White Blood Count 10.0 x10^3/uL (4.0-11.0) Red Blood Count 3.10 x10^6/uL (4.30-5.70) Hemoglobin 9.7 g/dL (13.0-17.5) Hematocrit 28.8 % (39.0-53.0) Mean Corpuscular Volume 93 fL (79-100) Mean Corpuscular Hemoglobin 31 pg (25-35) Mean Corpuscular Hemoglobin Concent 34 g/dL (31-37) Red Cell Distribution Width 18.2 % (11.5-14.5) Platelet Count 234 x10^3/uL (140-400) Neutrophils (%) (Auto) 59 % (31-73) Lymphocytes (%) (Auto) 22 % (24-48) Monocytes (%) (Auto) 8 % (0-9) Eosinophils (%) (Auto) 10 % (0-3) Basophils (%) (Auto) 1 % (0-3) Neutrophils # (Auto) 5.9 x10^3/uL (1.8-7.7) Lymphocytes # (Auto) 2.2 x10^3/uL (1.0-4.8) Monocytes # (Auto) 0.8 x10^3/uL (0.0-1.1) Eosinophils # (Auto) 1.0 x10^3/uL (0.0-0.7) Basophils # (Auto) 0.1 x10^3/uL (0.0-0.2) Sodium Level 137 mmol/L (136-145) Potassium Level 3.5 mmol/L (3.5-5.1) Chloride Level 99 mmol/L (98-107) Carbon Dioxide Level 30 mmol/L (21-32) Anion Gap 8 (6-14) Blood Urea Nitrogen 14 mg/dL (8-26) Creatinine 0.6 mg/dL (0.7-1.3) Estimated GFR (Cockcroft-Gault) 142.6 Glucose Level 122 mg/dL (70-99) Calcium Level 8.9 mg/dL (8.5-10.1) Test 09/01/20 06:01 Glucose (Fingerstick) 128 mg/dL (70-99) Comments CXR 08/20 IMPRESSION: small left effusion, bilateral infiltrates L>R CT CHEST 08/14 1. Marked interval enlargement of left lateral effusion. This could be causing some mass effect on the mediastinum. 2. Extensive pleural-parenchymal scarring and patchy airspace opacities in the lungs compatible with the sequelae of atypical pneumonia. Electronically signed by: Gosia Li MD (08/14/2020 1:28 PM) [id number] Impression . IMPRESSION: 1. Acute hypoxemic respiratory failure./ALI/ARDS due to COVID -19, much improved, now decanulated 2. Acute pulmonary embolism , still some residual PE, on Eliquis 3. COVID-19 pnemonia.now with low grade fevers, suspect VAP/ less likely empyema ( based on analysis) 5. Hypertension. 6. History of bronchitis. 7. Elevated troponin. 8. Acute kidney injury. 9. Leukocytosis. 10. Covid-[address] chest 08/14 , large left effusion, improved post chest tube left, no sig drainage or increase effusion, Plan . Continue supplemental oxygen, tolerating well, wean oxygen as tolerated to keep sats above 92%, now on 3.5 liters N/C Tracheotomy removed on 08/31/20 Status post tracheostomy 08/06 and S/P Peg tube placement 08/09 -- now decanulated repeat CTA chest with residual PE. f/u, dopplers neg, re-started Eliquis 08/18 Antibiotics per ID--AFB negative, Continue po ABX Doxy and Augmentin Has completed full course of remdesivir Continue tube feeding for nutritional support PT/OT and consult speech -Follow speech recs DVT/GI prophylaxis---Protonix/eliquis Discussed with RN and RT Pt. is FULL CODE we will sign off at this time please call, with any questions or concerns NERY SALINAS MD Sep 01, 2020 09:16
[2020-09-01] MEDS: DOXYCYCLINE HYCLATE 100 MG TABLET PO SCH ×2 (09:25→20:37)
[2020-09-01] MEDS: AMOXICILLIN/K CLAV 875/125MG TABLET. PO SCH ×2 (09:25→20:37)
[2020-09-01] MEDS: ZINC SULFATE 220 MG CAPSULE. PO SCH (09:25)
[2020-09-01] MEDS: CHOLECALCIFEROL (VITAMIN D3) 5,000 UNIT CAPSULE PO SCH (09:25)
[2020-09-01] MEDS: LANSOPRAZOLE 30 MG TAB.RAP.DR FT SCH (09:25)
[2020-09-01] MEDS: APIXABAN 5 MG TABLET. PO SCH ×2 (09:25→20:37)
[2020-09-01 11:00] VITALS: BP 144/81
--- NOTE | 2020-09-01 11:52 | PDOC ---
[employer] PROGRESS NOTE Date of Service DOS: DATE: 09/01/20 TIME: 11:51 Chief Complaint Chief Complaint IMPRESSION Acute hypoxic respiratory failure requiring VENT SUPPORT STATUS post trach placement 08/06/2020 // Patient remains on trach shield Patient remains on trach shield with PMV No other concerns from nursing overnight S/P Peg tube placement 08/09 Acute hypoxic respiratory failure/ARDS /pneumonia Bilateral perihilar and basilar opacities, progressed in the left base. 07-26 COVID-19 Subsegmental bilateral PE Sepsis NSTEMI AKA Lactic acidosis Hyponatremia, RESOLVED hgb 6.5 07-27, transfused 1 unit prbc's - bled on eliquis, now on heparin GTT hypokalemia, on replacement Left pleural effusion interval development of gas in the left pleural effusion with pleural thic kening, raising question of developing empyema. Repeat BC 08/06 staph pettenkori likely contaminant Enterobacter UTI and pneumonia Treated tracheal aspirate for afb stain and cultures negative so far f/u acute hepatitis panel HIV negative CT chest abdomen and pelvis reviewed, Lt base changes present pulm team following Plan: Appreciate pulmonology INPUT Heparin has been transitioned to Xarelto Appreciate ID recommendationscontinue Remdesivir and empiric antibiotics IV fluids Discussed with RN Antibiotics per ID-- off ABX, infectious disease following increasing leukocytosis has completed full course of remdesivir continue tube feeding for nutritional support tracheal aspirate for afb stain and cultures negative so far f/u acute hepatitis panel HIV negative CT chest abdomen and pelvis reviewed, Lt base changes present pulm team following tracheal aspirate for afb stain and cultures negative so far f/u acute hepatitis panel HIV negative CT chest abdomen and pelvis reviewed, Lt base changes present pulm team following HIV negative cont augmentin and doxy 29 MIN PT EXAM, CHART REVIEW, > 50% OF TIME SPENT WITH EXAM, CHART REVIEW, PT CARE COORDINATION History of Present Illness History of Present Illness Mr Soni is 49-year-old male with past medical history of hypertension, who presented to the ED 07/04/2020 with complaints of worsening shortness of breath over the past 5 days prior to admit. Associated sore throat, fatigue, and generalized weakness. Patient was reportedly tested for COVID-19 prior to admit, but he had negative test results. His symptoms acutely worsened yesterday. Upon arrival to the ER his oxygen saturation was 60% on room air. He was placed on BiPAP and admitted to the ICU. Patient was subsequently intubated due to worsening respiratory failure. s/p remdesivir 07/08/2020. Tracheostomy 08/06/2020, PEG 08/09/202009/01: Patient evaluated bedside. Trach was removed yesterday (08/31). Early on room air. N.p.o., ST to evaluate swallow. PEG in place. He is self-pay, not a citizen. 08/31: Patient seen at bedside. Afebrile, no acute events overnight. He had decannulation of his tracheostomy tube today. Currently breathing on room air. I believe he is still to have ST swallow eval today as well. Discussed with RN. 08/30: No acute events overnight. Patient seen and examined in next recliner. Trach collar in place and saturating well. Denies chest pain or nausea. Charts and labs reviewed. Continue treatment with Augmentin and doxycycline. 08/29: Patient seen and evaluated. Plan was to have decannulation today, but patient began having significant coughing spells due to improperly fitting trach tube. New appropriately fitting tube was obtained, no further issues with coughing. Discussed with RN. 08/28/2020: Patient seen and evaluated. No acute events overnight. Patient is afebrile. On trach collar 8L O2. He remains n.p.o. due to failed swallow study. Antibiotics per ID. Plans to decannulate soon. Discussed with RN. 08/27/20: Patient seen and evaluated bedside. No acute events overnight. On tracheal collar 8L O2. Continue antibiotics, per ID. Patient strength c ontinues to improve, working with PT. We will remove Fernandez catheter and rectal tube today. Discussed with RN. 08/12: No acute events overnight. Patient has T-max of 99.7. Currently on minimal vent settings.> 50% time spent in patient chart, labs, and imaging review and in discussion with RN and SW 08/13: Overnight Tmax 100.6F. Tires out easily on vent. 08/14: 101.5 F overnight. Stool sample on urine sample taken today. No growth on cultures as of yet. Still requiring vent support via his trach. No residuals on tube feeds. CT chest with left loculated effusion 08/15: 100.4 F overnight. Left Thoracostomy tube inserted today. Still requiring vent support via trach. 08/16: T-max 100.8 F overnight. Still requiring vent support via trach. Chest tube w/o air leak. 08/17: T [id number] overnight. Still requiring vent support via trach. Chest tube still with output, no air leak. 08/18: T-max 100.4 F overnight. On trach collar 30 L O2 currently. Minimal chest tube output, improved. CTPA still with left pulmonary embolism. Afebrile overnight. On trach collar 30 L O2 currently. Minimal chest tube output chest radiograph appears improved pigtail catheter in good position. 08/19/2020 No acute events overnight. Patient is on a trach collar currently. Chest tube in place with minimal output. Pending pleural fluid analysis. Patient's chart, labs, images were reviewed and discussed with RN 08/20/20 No acute events overnight. Tolerating trach collar. Minimal CT output.> 50% time spent in patient chart, labs, and imaging review and in discussion with RN and JAVIER 08/22/2020 No acute events overnight. Patient seen and examined in next recliner. Currently on trach collar and saturating well.> 50% time spent in patient chart, labs, and imaging review and in discussion with RN and JAVIER 08/11/2020 No acute events overnight. Patient with T-max of 100.8 overnight. Currently on minimal vent settings. Trached and pegged. Social work following for Medicare approval.> 50% time spent in patient chart, labs, and imaging review and in discussion with RN and SW 08/10/2020 no acute events overnight. Patient is on minimal vent settings. PEG tube placed yesterday. Will attempt to wean to extubate today.> 50% time spent in patient chart, labs, and imaging review and in discussion with RN and SW 08/09/2020 No acute events overnight. T-max of 100.0 F. Patient is on minimal ventilatory settings.> 50% time spent in patient chart, labs, and imaging review and in discussion with RN and SW 08/08/2020 Patient tolerating trach and ventilatory goldy support on 40% FiO2 and 5 of PEEP. Pending PEG tube placement tomorrow.> 50% time spent in patient chart, labs, and imaging review and in discussion with RN and SW 08/07/2020 No acute events overnight. Fever T-max of 101.1. Trach was placed yesterday. On minimal vent settings.> 50% time spent in patient chart, labs, and imaging review and in discussion with RN and SW 08/06/2020 No acute events overnight. Patient is afebrile. Currently on minimal vent sett ings. Pending trach today. Patient's chart, labs, images were reviewed and discussed with RN A total of 35 minutes of critical care time was spent in reviewing chart, labs, and images. Discussed with RN and SW. 08/05/2020 Patient seen and evaluated. No acute events, febrile overnight. Mechanically ventilated with FiO2 40%, PEEP 6. Plan for trach Thursday. 08/04/2020 Patient seen in [facility] ICU. Still with low-grade fevers. Mechanically ventilated, FiO2 40%, PEEP 6. No acute change, plan for trach Thursday. 08/03/2020 Patient seen in [facility]- ICU. Still with low-grade fever. He remains on vent with FiO2 100%, PEEP 12. Plan for trach on Thursday, and PEG at some point after. 08/02/2020 Patient seen and evaluated in [facility] ICU. He is febrile this morning. Still intubated mechanically ventilated with FiO2 40 %, PEEP 6. Plans for tracheostomy today. 08/01/2020 Patient seen in [facility] ICU. Patient remains slightly febrile. Mechanically ventilated, FiO2 45%, PEEP 6. Tracheostomy unable to perform yesterday, general surgery to attempt again today. Discussed with RN. 07/31/2020 Patient still spiking fevers. Patient remains on vent, FiO2 45%, PEEP 6. Tracheostomy tentatively planned for today. 07/30/2020 Patient seen in [facility]- ICU. He is febrile on vent, FiO2 45%, PEEP 6. Will attempt to speak with family about decision on trach and PEG tube. Discussed with RN. t max 102 f fio2 50% 07/21/2020 Patient no acute events reported overnight. Patient continues to require a lot of support from vent. Discussed with RN 09/19/2019 Patient continues to be pretty much the same , fio2 is at 70%, heparin 07/19/2020 Patient hypotensive today, we will follow recommendations from critical reservoir caretaker. Vent management as per trial consultant, no other complaints. 07/18/2020 Patient with no acute events reported overnight, fio2 is now at 75% PEEP of 6, Vent management as per pulmonary trial consultant slight increase in temperature noted over the lat 24 hours. Will continue to follow 07/17/2020 Patient with no acute events reported overnight, contineus to require an fio2 of 80%, continue with supportive measures. 07/16/2020 Patient with no acute events reported overnight, patient continues to require quite a bit of FiO2 at 80%. Vent management as per trial consultant, will place a call to family members after rounding. Discussed with RN 07/15/2020 Patient seen and examined bedside in the ICU. FiO2 80% PEEP of 6.pH 7.56, PCO2 32, PO2 56, HCO3 28. Will adjust respiratory rate accordingly to correct pH.> 50% time spent in patient chart, labs, and imaging review and in discussion with RN and JAVIER 07/14/2020 Patient seen and examined bedside. FiO2 65% and PEEP of 6 on vent. ABG: pH 7.26, PCO2 77, PO2 114, HCO3 34. We will adjust respiratory rate or tidal volume to titrate pH.> 50% time spent in patient chart, labs, and imaging review and in discussion with RN and JAVIER 07/13/2020 No acute events overnight. Patient examined bedside sedated and intubated. FiO2 70% PEEP of 6. Improved ABGs.> 50% time spent in patient chart, labs, and imaging review and in discussion with RN and JAVIER 07/12/2020 Patient seen and examined in the ICU. Sedated and intubated. FiO2 65, PEEP of 8 with improved oxygenation. pH 7.4, PCO2 48, PO2 94, HCO3 30. +500 cc fluid balance.> 50% time spent in patient chart, labs, and imaging review and in discussion with RN and JAVIER 07/11/2020 Patient seen and examined bedside in the ICU. Patient continues to be intubated and sedated. FiO2 75%, PEEP of 10. pH 7.40, PCO2 44, PO2 is 135, HCO3 26. Can likely decrease FiO2 due to improved oxygenation. +173 cc in the past 24 hours 07/10/2020 Patient seen and examined bedside in ICU. Patient is intubated and sedated. FiO2 90%, PEEP of 10, respiratory rate of 30. ABG: pH is 7.41, PCO2 42, PO2 113, HCO3 26. 07/05: Patient seen in ICU, still intubated and sedated. COVID-19 pending. Patient remains on heparin infusion. Discussed with RN, will try to have central line placed per anesthesia. 07/06: Patient seen in ICU. Still FiO2 100% on vent and sedated. COVID-19 positive. Continue heparin infusion, Zosyn, steroids. 07/07: Covid positive patient seen in ICU. On vent with FiO2 100%, PEEP 10. Continue remdesivir, steroids, Zosyn. Continue to monitor 07/08: Patient seen in [facility] ICU. Still on vent with FiO2 100%, PEEP 10. Afebrile. No acute events overnight. Continue steroids, antibiotics, and remdesivir. 07/09: Patient seen and examined in the ICU. Intubated and sedated. Vent settings FiO2 90%, PEEP of 10, respiratory rate of 30. Vitals/I&O Vitals/I&O: Vital Signs Date Time Temp Pulse Resp B/P (MAP) Pulse Ox O2 Delivery O2 Flow Rate FiO2 09/01/20 11:00 98.0 87 18 144/81 (102) 94 Room Air 98.0 08/31/20 14:21 4.0 I & O 0 08/31/20 08/31/20 09/01/20 15:00 23:00 07:00 Intake Total 100 ml 909 ml 909 ml Output Total 0 ml 375 ml Balance 100 ml 909 ml 534 ml Physical Exam Physical Exam: General alert awake HEENT normocephalic atraumatic , Neck trach present LUNGS: Clear anteriorly, left CTS HEART: S1-S2 no murmurs ABDOMEN: mildly distended, soft bowel sounds present Fernandez in place,fecal tube in place SKIN: No generalized rash Right upper extremity PICC line removed PIVs Clean Neuro alert awake General: Alert, No acute distress, Other (sedated ) Heart: Regular rate, No murmurs Lungs: Clear Extremities: No clubbing Skin: No significant lesion Labs Labs: Laboratory Tests Test 08/31/20 17:21 09/01/20 00:44 09/01/20 05:00 09/01/20 06:01 Glucose (Fingerstick) 119 mg/dL (70-99) 123 mg/dL (70-99) 128 mg/dL (70-99) White Blood Count 10.0 x10^3/uL (4.0-11.0) Red Blood Count 3.10 x10^6/uL (4.30-5.70) Hemoglobin 9.7 g/dL (13.0-17.5) Hematocrit 28.8 % (39.0-53.0) Mean Corpuscular Volume 93 fL (79-100) Mean Corpuscular Hemoglobin 31 pg (25-35) Mean Corpuscular Hemoglobin Concent 34 g/dL (31-37) Red Cell Distribution Width 18.2 % (11.5-14.5) Platelet Count 234 x10^3/uL (140-400) Neutrophils (%) (Auto) 59 % (31-73) Lymphocytes (%) (Auto) 22 % (24-48) Monocytes (%) (Auto) 8 % (0-9) Eosinophils (%) (Auto) 10 % (0-3) Basophils (%) (Auto) 1 % (0-3) Neutrophils # (Auto) 5.9 x10^3/uL (1.8-7.7) Lymphocytes # (Auto) 2.2 x10^3/uL (1.0-4.8) Monocytes # (Auto) 0.8 x10^3/uL (0.0-1.1) Eosinophils # (Auto) 1.0 x10^3/uL (0.0-0.7) Basophils # (Auto) 0.1 x10^3/uL (0.0-0.2) Sodium Level 137 mmol/L (136-145) Potassium Level 3.5 mmol/L (3.5-5.1) Chloride Level 99 mmol/L (98-107) Carbon Dioxide Level 30 mmol/L (21-32) Anion Gap 8 (6-14) Blood Urea Nitrogen 14 mg/dL (8-26) Creatinine 0.6 mg/dL (0.7-1.3) Estimated GFR (Cockcroft-Gault) 142.6 Glucose Level 122 mg/dL (70-99) Calcium Level 8.9 mg/dL (8.5-10.1) Assessment and Plan Assessmemt and Plan Problems Medical Problems: (1) Acute respiratory failure with hypoxia Status: Acute (2) PRIYA (acute kidney injury) Status: Acute (3) Elevated troponin I level Status: Acute (4) Pulmonary emboli Status: Acute (5) Suspected COVID-19 virus infection Status: Acute Comment Review of Relevant I have reviewed the following items trino (where applicable) has been applied. Justifications for Admission Other Justification SHERLY DUKES MD Sep 01, 2020 11:52
[2020-09-01 15:00] VITALS: BP 120/60
[2020-09-01 19:32] VITALS: BP 122/72
[2020-09-01 22:35] VITALS: BP 115/70
[2020-09-02 02:46] VITALS: BP 114/75
[2020-09-02 04:41] LABS: BASO # 0.1 x10^3/uL (0.0-0.2); BASO % 1 % (0-3); EOS # 1.1 x10^3/uL (0.0-0.7); EOS % 10 % (0-3); HEMATOCRIT 29.5 % (39.0-53.0); HEMOGLOBIN 10.1 g/dL (13.0-17.5); LYMPH # 2.1 x10^3/uL (1.0-4.8); LYMPH % 20 % (24-48); MEAN CORPUSCULAR HEMOGLOBIN 32 pg (25-35); MEAN CORPUSCULAR HGB CONC 34 g/dL (31-37); MEAN CORPUSCULAR VOLUME 93 fL (79-100); MONO # 0.8 x10^3/uL (0.0-1.1); MONO % 7 % (0-9); NEUT # 6.4 x10^3/uL (1.8-7.7); NEUT % 61 % (31-73); PLATELET COUNT 231 x10^3/uL (140-400); RED BLOOD COUNT 3.18 x10^6/uL (4.30-5.70); RED CELL DISTRIBUTION WIDTH 17.8 % (11.5-14.5); WHITE BLOOD COUNT 10.4 x10^3/uL (4.0-11.0)
[2020-09-02 05:01] LABS: CALCIUM 9.1 mg/dL (8.5-10.1); CREATININE 0.8 mg/dL (0.7-1.3); GFR 102.3; POTASSIUM 3.7 mmol/L (3.5-5.1)
[2020-09-02] MEDS: INSULIN LISPRO 300 UNITS/3 ML VIAL. SQ SCH ×4 (05:54→18:00)
[2020-09-02 07:00] VITALS: BP 115/75
[2020-09-02] MEDS: APIXABAN 5 MG TABLET. PO SCH (08:54)
[2020-09-02] MEDS: DOXYCYCLINE HYCLATE 100 MG TABLET PO SCH ×2 (08:54→21:00)
[2020-09-02] MEDS: CHOLECALCIFEROL (VITAMIN D3) 5,000 UNIT CAPSULE PO SCH (08:54)
[2020-09-02] MEDS: AMOXICILLIN/K CLAV 875/125MG TABLET. PO SCH ×2 (08:54→21:00)
[2020-09-02] MEDS: ZINC SULFATE 220 MG CAPSULE. PO SCH (08:54)
[2020-09-02] MEDS: LANSOPRAZOLE 30 MG TAB.RAP.DR FT SCH (08:54)
[2020-09-02 11:00] VITALS: BP 128/77
--- NOTE | 2020-09-02 11:53 | PDOC ---
[employer] PROGRESS NOTE Date of Service DOS: DATE: 09/02/20 TIME: 11:51 Chief Complaint Chief Complaint IMPRESSION Acute hypoxic respiratory failure requiring VENT SUPPORT STATUS post trach placement 08/06/2020 // Patient remains on trach shield Patient remains on trach shield with PMV No other concerns from nursing overnight S/P Peg tube placement 08/09 Acute hypoxic respiratory failure/ARDS /pneumonia Bilateral perihilar and basilar opacities, progressed in the left base. 07-26 COVID-19 Subsegmental bilateral PE Sepsis NSTEMI AKA Lactic acidosis Hyponatremia, RESOLVED hgb 6.5 07-27, transfused 1 unit prbc's - bled on eliquis, now on heparin GTT hypokalemia, on replacement Left pleural effusion interval development of gas in the left pleural effusion with pleural thi ckening, raising question of developing empyema. Repeat BC 08/06 staph pettenkori likely contaminant Enterobacter UTI and pneumonia Treated tracheal aspirate for afb stain and cultures negative so far f/u acute hepatitis panel HIV negative CT chest abdomen and pelvis reviewed, Lt base changes present pulm team following Plan: Appreciate pulmonology INPUT Heparin has been transitioned to Xarelto Appreciate ID recommendationscontinue Remdesivir and empiric antibiotics IV fluids Discussed with RN Antibiotics per ID-- off ABX, infectious disease following increasing leukocytosis has completed full course of remdesivir continue tube feeding for nutritional support tracheal aspirate for afb stain and cultures negative so far f/u acute hepatitis panel HIV negative CT chest abdomen and pelvis reviewed, Lt base changes present pulm team following tracheal aspirate for afb stain and cultures negative so far f/u acute hepatitis panel HIV negative CT chest abdomen and pelvis reviewed, Lt base changes present pulm team following HIV negative cont augmentin and doxy 29 MIN PT EXAM, CHART REVIEW, > 50% OF TIME SPENT WITH EXAM, CHART REVIEW, PT CARE COORDINATION History of Present Illness History of Present Illness Mr Soni is 49-year-old male with past medical history of hypertension, who presented to the ED 07/04/2020 with complaints of worsening shortness of breath over the past 5 days prior to admit. Associated sore throat, fatigue, and generalized weakness. Patient was reportedly tested for COVID-19 prior to admit, but he had negative test results. His symptoms acutely worsened yesterday. Upon arrival to the ER his oxygen saturation was 60% on room air. He was placed on BiPAP and admitted to the ICU. Patient was subsequently intubated due to worsening respiratory failure. s/p remdesivir 07/08/2020. Tracheostomy 08/06/2020, PEG 08/09/202009/02: Patient seen and evaluated bedside. Trach removed (08/31) breathing comfortably on room air. PEG in place, n.p.o. He is self-pay, not a citizen. Charts and labs reviewed. 09/01: Patient evaluated bedside. Trach was removed yesterday (08/31). Early on room air. N.p.o., ST to evaluate swallow. PEG in place. He is self-pay, not a citizen. 08/31: Patient seen at bedside. Afebrile, no acute events overnight. He had decannulation of his tracheostomy tube today. Currently breathing on room air. I believe he is still to have ST swallow eval today as well. Discussed with RN. 08/30: No acute events overnight. Patient seen and examined in next recliner. Trach collar in place and saturating well. Denies chest pain or nausea. Charts and labs reviewed. Continue treatment with Augmentin and doxycycline. 08/29: Patient seen and evaluated. Plan was to have decannulation today, but p atient began having significant coughing spells due to improperly fitting trach tube. New appropriately fitting tube was obtained, no further issues with coughing. Discussed with RN. 08/28/2020: Patient seen and evaluated. No acute events overnight. Patient is afebrile. On trach collar 8L O2. He remains n.p.o. due to failed swallow study. Antibiotics per ID. Plans to decannulate soon. Discussed with RN. 08/27/20: Patient seen and evaluated bedside. No acute events overnight. On tracheal collar 8L O2. Continue antibiotics, per ID. Patient strength continues to improve, working with PT. We will remove Fernandez catheter and rectal tube today. Discussed with RN. 08/12: No acute events overnight. Patient has T-max of 99.7. Currently on minimal vent settings.> 50% time spent in patient chart, labs, and imaging review and in discussion with RN and JAVIER 08/13: Overnight Tmax 100.6F. Tires out easily on vent. 08/14: 101.5 F overnight. Stool sample on urine sample taken today. No growth on cultures as of yet. Still requiring vent support via his trach. No residuals on tube feeds. CT chest with left loculated effusion 08/15: 100.4 F overnight. Left Thoracostomy tube inserted today. Still requiring vent support via trach. 08/16: T-max 100.8 F overnight. Still requiring vent support via trach. Chest tube w/o air leak. 08/17: T [id number] overnight. Still requiring vent support via trach. Chest tube still with output, no air leak. 08/18: T-max 100.4 F overnight. On trach collar 30 L O2 currently. Minimal ch est tube output, improved. CTPA still with left pulmonary embolism. Afebrile overnight. On trach collar 30 L O2 currently. Minimal chest tube output chest radiograph appears improved pigtail catheter in good position. 08/19/2020 No acute events overnight. Patient is on a trach collar currently. Chest tube in place with minimal output. Pending pleural fluid analysis. Patient's chart, labs, images were reviewed and discussed with RN 08/20/20 No acute events overnight. Tolerating trach collar. Minimal CT output.> 50% time spent in patient chart, labs, and imaging review and in discussion with RN and JAVIER 08/22/2020 No acute events overnight. Patient seen and examined in next recliner. Currently on trach collar and saturating well.> 50% time spent in patient chart, labs, and imaging review and in discussion with RN and JAVIER 08/11/2020 No acute events overnight. Patient with T-max of 100.8 overnight. Currently on minimal vent settings. Trached and pegged. Social work following for Medicare approval.> 50% time spent in patient chart, labs, and imaging review and in discussion with RN and JAVIER 08/10/2020 no acute events overnight. Patient is on minimal vent settings. PEG tube placed yesterday. Will attempt to wean to extubate today.> 50% time spent in patient chart, labs, and imaging review and in discussion with RN and JAVIER 08/09/2020 No acute events overnight. T-max of 100.0 F. Patient is on minimal ventilatory settings.> 50% time spent in patient chart, labs, and imaging review and in discussion with RN and SW 08/08/2020 Patient tolerating trach and ventilatory goldy support on 40% FiO2 and 5 of PEEP. Pending PEG tube placement tomorrow.> 50% time spent in patient chart, labs, and imaging review and in discussion with RN and JAVIER 08/07/2020 No acute events overnight. Fever T-max of 101.1. Trach was placed yesterday. On minimal vent settings.> 50% time spent in patient chart, labs, and imaging review and in discussion with RN and JAVIER 08/06/2020 No acute events overnight. Patient is afebrile. Currently on minimal vent settings. Pending trach today. Patient's chart, labs, images were reviewed and discussed with RN A total of 35 minutes of critical care time was spent in reviewing chart, labs, and images. Discussed with RN and JAVIER. 08/05/2020 Patient seen and evaluated. No acute events, febrile overnight. Mechanically ventilated with FiO2 40%, PEEP 6. Plan for trach Thursday. 08/04/[address] [facility] ICU. Still with low-grade fevers. Mechanically ventilated, FiO2 40%, PEEP 6. No acute change, plan for trach Thursday. 08/03/2020 Patient seen in [facility]- ICU. Still with low-grade fever. He remains on vent with FiO2 100%, PEEP 12. Plan for trach on Thursday, and PEG at some point after. 08/02/2020 Patient seen and evaluated in [facility] ICU. He is febrile this morning. Still intubated mechanically ventilated with FiO2 40 %, PEEP 6. Plans for tracheostomy today. 08/01/[address] [facility] ICU. Patient remains slightly febrile. Mechanically ventilated, FiO2 45%, PEEP 6. Tracheostomy unable to perform yesterday, general surgery to attempt again today. Discussed with RN. 07/31/2020 Patient still spiking fevers. Patient remains on vent, FiO2 45%, PEEP 6. Tracheostomy tentatively planned for today. 07/30/2020 Patient seen in [facility]- ICU. He is febrile on vent, FiO2 45%, PEEP 6. Will attempt to speak with family about decision on trach and PEG tube. Discussed with RN. t max 102 f fio2 50% 07/21/2020 Patient no acute events reported overnight. Patient continues to require a lot of support from vent. Discussed with RN 09/19/2019 Patient continues to be pretty much the same , fio2 is at 70%, heparin 07/19/2020 Patient hypotensive today, we will follow recommendations from critical adult live in caregiver. Vent management as per regulatory services consultant, no other complaints. 07/18/2020 Patient with no acute events reported overnight, fio2 is now at 75% PEEP of 6, Vent management as per pulmonary regulatory services consultant slight increase in temperature noted over the lat 24 hours. Will continue to follow 07/17/2020 Patient with no acute events reported overnight, contineus to require an fio2 of 80%, continue with supportive measures. 07/16/2020 Patient with no acute events reported overnight, patient continues to require quite a bit of FiO2 at 80%. Vent management as per regulatory services consultant, will place a call to family members after rounding. Discussed with RN 07/15/2020 Patient seen and examined bedside in the ICU. FiO2 80% PEEP of 6.pH 7.56, PCO2 32, PO2 56, HCO3 28. Will adjust respiratory rate accordingly to correct pH.> 50% time spent in patient chart, labs, and imaging review and in discussion with RN and JAVIER 07/14/2020 Patient seen and examined bedside. FiO2 65% and PEEP of 6 on vent. ABG: pH 7.26, PCO2 77, PO2 114, HCO3 34. We will adjust respiratory rate or tidal volume to titrate pH.> 50% time spent in patient chart, labs, and imaging review and in discussion with RN and JAVIER 07/13/2020 No acute events overnight. Patient examined bedside sedated and intubated. FiO2 70% PEEP of 6. Improved ABGs.> 50% time spent in patient chart, labs, and imaging review and in discussion with RN and JAVIER 07/12/2020 Patient seen and examined in the ICU. Sedated and intubated. FiO2 65, PEEP of 8 with improved oxygenation. pH 7.4, PCO2 48, PO2 94, HCO3 30. +500 cc fluid balance.> 50% time spent in patient chart, labs, and imaging review and in discussion with RN and JAVIER 07/11/2020 Patient seen and examined bedside in the ICU. Patient continues to be intubated and sedated. FiO2 75%, PEEP of 10. pH 7.40, PCO2 44, PO2 is 135, HCO3 26. Can likely decrease FiO2 due to improved oxygenation. +173 cc in the past 24 hours 07/10/2020 Patient seen and examined bedside in ICU. Patient is intubated and sedated. FiO2 90%, PEEP of 10, respiratory rate of 30. ABG: pH is 7.41, PCO2 42, PO2 113, HCO3 26. 07/05: Patient seen in ICU, still intubated and sedated. COVID-19 pending. Patient remains on heparin infusion. Discussed with RN, will try to have central line placed per anesthesia. 07/06: Patient seen in ICU. Still FiO2 100% on vent and sedated. COVID-19 positive. Continue heparin infusion, Zosyn, steroids. 07/07: Covid positive patient seen in ICU. On vent with FiO2 100%, PEEP 10. Continue remdesivir, steroids, Zosyn. Continue to monitor 07/08: Patient seen in [facility] ICU. Still on vent with FiO2 100%, PEEP 10. Afebrile. No acute events overnight. Continue steroids, antibiotics, and remdesivir. 07/09: Patient seen and examined in the ICU. Intubated and sedated. Vent settings FiO2 90%, PEEP of 10, respiratory rate of 30. Vitals/I&O Vitals/I&O: Vital Signs Date Time Temp Pulse Resp B/P (MAP) Pulse Ox O2 Delivery O2 Flow Rate FiO2 09/02/20 08:00 Room Air 09/02/20 07:00 98.3 79 16 115/75 (88) 99 98.3 09/01/20 19:34 2.0 I & O 09/01/20 09/01/20 09/02/20 15:00 23:00 07:00 Intake Total 740 ml 2078 ml Balance 740 ml 2078 ml Physical Exam Physical Exam: General alert awake HEENT normocephalic atraumatic , Neck trach present LUNGS: Clear anteriorly, left CTS HEART: S1-S2 no murmurs ABDOMEN: mildly distended, soft bowel sounds present Fernandez in place,fecal tube in place SKIN: No generalized rash Right upper extremity PICC line removed PIVs Clean Neuro alert awake General: Alert, No acute distress, Other (sedated ) Heart: Regular rate, No murmurs Lungs: Clear Extremities: No clubbing Skin: No significant lesion Labs Labs: Laboratory Tests Test 09/02/20 00:32 1/10/21 04:30 Glucose (Fingerstick) 114 mg/dL (70-99) White Blood Count 10.4 x10^3/uL (4.0-11.0) Red Blood Count 3.18 x10^6/uL (4.30-5.70) Hemoglobin 10.1 g/dL (13.0-17.5) Hematocrit 29.5 % (39.0-53.0) Mean Corpuscular Volume 93 fL (79-100) Mean Corpuscular Hemoglobin 32 pg (25-35) Mean Corpuscular Hemoglobin Concent 34 g/dL (31-37) Red Cell Distribution Width 17.8 % (11.5-14.5) Platelet Count 231 x10^3/uL (140-400) Neutrophils (%) (Auto) 61 % (31-73) Lymphocytes (%) (Auto) 20 % (24-48) Monocytes (%) (Auto) 7 % (0-9) Eosinophils (%) (Auto) 10 % (0-3) Basophils (%) (Auto) 1 % (0-3) Neutrophils # (Auto) 6.4 x10^3/uL (1.8-7.7) Lymphocytes # (Auto) 2.1 x10^3/uL (1.0-4.8) Monocytes # (Auto) 0.8 x10^3/uL (0.0-1.1) Eosinophils # (Auto) 1.1 x10^3/uL (0.0-0.7) Basophils # (Auto) 0.1 x10^3/uL (0.0-0.2) Sodium Level 139 mmol/L (136-145) Potassium Level 3.7 mmol/L (3.5-5.1) Chloride Level 101 mmol/L (98-107) Carbon Dioxide Level 30 mmol/L (21-32) Anion Gap 8 (6-14) Blood Urea Nitrogen 13 mg/dL (8-26) Creatinine 0.8 mg/dL (0.7-1.3) Estimated GFR (Cockcroft-Gault) 102.3 Glucose Level 124 mg/dL (70-99) Calcium Level 9.1 mg/dL (8.5-10.1) Assessment and Plan Assessmemt and Plan Problems Medical Problems: (1) Acute respiratory failure with hypoxia Status: Acute (2) PRIYA (acute kidney injury) Status: Acute (3) Elevated troponin I level Status: Acute (4) Pulmonary emboli Status: Acute (5) Suspected COVID-19 virus infection Status: Acute Comment Review of Relevant I have reviewed the following items trino (where applicable) has been applied. Justifications for Admission Other Justification SHERLY DUKES MD Sep 02, 2020 11:53
[2020-09-02 15:00] VITALS: BP 126/66
[2020-09-02 19:20] VITALS: BP 124/84
[2020-09-02] MEDS: ACETAMINOPHEN 650 MG/20.3 ML SOLUTION. PEG PRN (21:00)
[2020-09-02 22:25] VITALS: BP 116/71
[2020-09-03 03:21] VITALS: BP 118/74
[2020-09-03] MEDS: INSULIN LISPRO 300 UNITS/3 ML VIAL. SQ SCH ×4 (06:00→23:51)
[2020-09-03 07:00] VITALS: BP 122/77
--- NOTE | 2020-09-03 07:52 | PDOC ---
Infectious Disease Note Subjective: Subjective Patient feels better Remains afebrile Vital Signs: Vital Signs Vital Signs Date Time Temp Pulse Resp B/P (MAP) Pulse Ox O2 Delivery O2 Flow Rate FiO2 09/03/20 03:21 98.9 76 16 118/74 (89) 95 Room Air 98.9 Physical Exam: PHYSICAL EXAM General alert awake HEENT normocephalic atraumatic , Neck supple ,trach removed LUNGS: Clear anteriorly, left CTS removed HEART: S1-S2 no murmurs ABDOMEN: mildly distended, soft bowel sounds present Fernandez in place,fecal tube in place SKIN: No generalized rash Right upper extremity PICC line removed PIVs Clean Neuro alert awake Medications: Inpatient Meds: Current Medications Medications (Trade) Dose Ordered Sig/Natalee Start Time Stop Time Status Last Admin Dose Admin Acetaminophen (Tylenol Supp) 650 mg PRN Q6HRS PRN 08/06/20 20:45 08/07/20 19:28 650 MG Acetaminophen (Tylenol) 650 mg PRN Q6HRS PRN 07/12/20 12:00 09/02/20 21:00 650 MG Amoxicillin/ Clavulanate Potassium (Augmentin 875/ 125mg) 1 tab BID 08/23/20 21:00 09/02/20 21:00 1 TAB Apixaban (Eliquis) 5 mg BID 08/18/20 10:00 09/02/20 20:32 DC 09/02/20 08:54 5 MG Ascorbic Acid (Vitamin C) 500 mg Q6HRS 07/04/20 18:00 08/05/20 08:39 DC 08/05/20 06:07 500 MG Azithromycin (Zithromax) 500 mg 1X ONCE 07/03/20 19:15 07/03/20 19:19 DC 07/03/20 20:11 500 MG Bupivacaine HCl/ Epinephrine Bitart (Sensorcain-Epi 0.5%-[id number] Mpf) 30 ml 1X ONCE 08/06/20 06:30 08/06/20 06:31 DC 08/06/20 15:15 1 ML Cefazolin Sodium/ Dextrose 50 ml @ 100 mls/hr 1X ONCE 08/09/20 11:00 08/09/20 11:29 DC 08/09/20 11:04 100 MLS/HR Ceftriaxone Sodium (Rocephin) 1 gm 1X ONCE 07/03/20 19:15 07/03/20 19:19 DC 07/03/20 20:11 1 GM Cellulose (Surgicel Fibrillar 1x2) 1 each STK-MED ONCE 07/31/20 13:08 07/31/20 13:08 DC Cellulose (Surgicel Hemostat 4x8) 1 each STK-MED ONCE 08/06/20 14:10 08/06/20 14:11 DC Daptomycin 470 mg/ Sodium Chloride 50 ml @ 100 mls/hr Q24H 08/01/20 09:00 08/05/20 11:20 DC 08/05/20 09:24 100 MLS/HR Dexmedetomidine HCl 400 mcg/ Sodium Chloride 100 ml @ 0 mls/hr CONT PRN 08/11/20 10:00 08/24/20 07:50 DC 08/17/20 11:29 4.1 MLS/HR Dextrose (Dextrose 50%-Water Syringe) 12.5 gm PRN Q15MIN PRN 08/14/20 08:00 UNV Doxycycline Hyclate (Vibra-Tab) 100 mg BID 08/21/20 10:00 09/02/20 21:00 100 MG Enoxaparin Sodium (Lovenox 150mg Syringe) 150 mg 1X ONCE 07/03/20 23:00 07/03/20 23:01 DC 07/03/20 22:45 150 MG Etomidate (Amidate) 10 mg 1X ONCE 07/04/20 09:30 07/04/20 09:31 DC 07/04/20 09:37 10 MG Fentanyl Citrate (Fentanyl 2ml Vial) 50 mcg 1X ONCE 08/15/20 14:15 08/15/20 14:18 DC 08/15/20 14:29 50 MCG Furosemide (Lasix) 20 mg 1X ONCE 07/29/20 06:30 07/29/20 06:31 DC 07/29/20 06:35 20 MG Heparin Sodium (Porcine) (Heparin Sodium) 1,250 unit PRN Q6HRS PRN 08/11/20 14:30 08/18/20 10:00 DC 08/14/20 22:56 1,250 UNIT Heparin Sodium/ Dextrose 250 ml @ 0 mls/hr CONT PRN 08/11/20 14:30 08/18/20 10:00 DC 08/18/20 00:46 26.2 MLS/HR Hydromorphone HCl (Dilaudid) 0.5 mg PRN Q10MIN PRN 08/06/20 07:00 08/07/20 06:59 DC Info (Anti-Coagulation Monitoring By Pharmacy) 1 each PRN DAILY PRN 07/16/20 08:15 08/30/20 11:26 1 EACH Info (CONTRAST GIVEN -- Rx MONITORING) 1 each PRN DAILY PRN 08/17/20 05:45 08/19/20 05:44 DC Info (Icu Electrolyte Protocol) 1 ea CONT PRN PRN 07/24/20 15:45 Insulin Human Lispro (HumaLOG) 0-7 UNITS Q6HRS 08/14/20 12:00 08/19/20 11:38 3 UNITS Iohexol (Omnipaque 350 Mg/ml) 100 ml 1X ONCE 08/17/20 05:45 08/17/20 05:46 DC 08/17/20 05:45 100 ML Lansoprazole (Prevacid) 30 mg DAILY 08/21/20 09:00 09/02/20 08:54 30 MG Levofloxacin/ Dextrose 150 ml @ 100 mls/hr Q24H 08/02/20 09:00 08/05/20 11:20 DC 08/05/20 07:16 100 MLS/HR Lidocaine HCl (Buffered Lidocaine 1%) 6 ml 1X ONCE 08/15/20 13:00 08/15/20 13:01 DC 08/15/20 13:07 5 ML Lidocaine HCl (Xylocaine-Mpf 1% 2ml Vial) 2 ml PRN 1X PRN 08/06/20 07:00 08/07/20 06:59 DC Linezolid (Zyvox) 600 mg BID 08/14/20 09:00 08/19/20 12:00 DC 08/19/20 08:22 600 MG Linezolid/Dextrose 300 ml @ 300 mls/hr Q12HR 07/27/20 12:30 07/31/20 07:36 DC 07/30/20 21:47 300 MLS/HR Lorazepam (Ativan Inj) 2 mg PRN Q1HR PRN 07/21/20 12:30 08/18/20 00:45 2 MG Magnesium Sulfate 100 ml @ 50 mls/hr DAILY 08/13/20 00:00 08/16/20 00:00 DC 08/15/20 08:43 50 MLS/HR Meclizine HCl (Antivert) 25 mg PRN DAILY PRN 08/12/20 23:00 08/30/20 10:38 25 MG Meropenem 500 mg/ Sodium Chloride 50 ml @ 100 mls/hr Q6HRS 08/14/20 09:00 08/23/20 10:55 DC 08/23/20 05:54 100 MLS/HR Methylprednisolone Sodium Succinate (SOLU-Medrol 40MG VIAL) 40 mg DAILY 07/21/20 09:00 07/22/20 09:36 DC 07/22/20 09:08 40 MG Midazolam HCl (Versed) 5 mg STK-MED ONCE 07/04/20 09:21 07/04/20 09:21 DC Morphine Sulfate (Morphine Sulfate) 1 mg PRN Q10MIN PRN 08/06/20 07:00 08/07/20 06:59 DC Multi-Ingred Cream/Lotion/Oil/ Oint (Artificial Tears Eye Ointment) 1 wenceslao PRN Q1HR PRN 07/18/20 10:45 07/27/20 17:19 1 WENCESLAO Norepinephrine Bitartrate 8 mg/ Dextrose 258 ml @ 16.061 mls/ hr CONT PRN 07/04/20 13:15 07/18/20 11:01 DC 07/05/20 00:33 28.909 MLS/HR Ondansetron HCl (Zofran) 4 mg PRN Q6HRS PRN 08/06/20 07:00 08/07/20 06:59 DC Pantoprazole Sodium (PROTONIX VIAL for IV PUSH) 40 mg DAILYAC 07/04/20 12:30 08/20/20 10:25 DC 08/20/20 10:29 40 MG Piperacillin Sod/ Tazobactam Sod (Zosyn Per Pharmacy) 1 each PRN DAILY PRN 07/04/20 12:00 07/18/20 07:46 DC Piperacillin Sod/ Tazobactam Sod 3.375 gm/Sodium Chloride 50 ml @ 100 mls/hr Q6HRS 07/04/20 12:00 07/17/20 11:11 DC 07/17/20 05:10 100 MLS/HR Piperacillin Sod/ Tazobactam Sod 4.5 gm/Sodium Chloride 100 ml @ 200 mls/hr Q6HRS 07/24/20 12:00 07/26/20 10:53 DC 07/26/20 05:36 200 MLS/HR Potassium Bicarbonate (Potassium Effervescent Tablet) 40 meq 1X ONCE 08/15/20 09:45 08/15/20 09:46 DC 08/15/20 10:25 40 MEQ Potassium Chloride/Water 100 ml @ 100 mls/hr Q1H 08/13/20 13:00 08/13/20 16:59 DC 08/13/20 18:10 100 MLS/HR Potassium Phosphate 13.6 mmol/Sodium Chloride 254.5333 ml @ 62.5 mls/hr Q4H 07/24/20 15:30 07/25/20 03:29 UNV Prochlorperazine Edisylate (Compazine) 10 mg PRN Q6HRS PRN 08/12/20 21:30 08/19/20 13:34 10 MG Propofol 100 ml @ 0 mls/hr CONT PRN 07/04/20 09:15 08/24/20 07:49 DC 08/11/20 06:42 14.9 MLS/HR Remdesivir 100 mg/ Sodium Chloride 230 ml @ 460 mls/hr Q24H 07/07/20 14:30 07/10/20 14:59 DC 07/10/20 13:59 460 MLS/HR Remdesivir 200 mg/ Sodium Chloride 210 ml @ 210 mls/hr 1X ONCE 07/06/20 14:30 07/06/20 15:29 DC 07/06/20 14:51 210 MLS/HR Ringer's Solution 1,000 ml @ 30 mls/hr Q24H 08/09/20 06:00 08/09/20 17:59 DC 08/09/20 06:11 30 MLS/HR Rocuronium [place] (Zemuron) 50 mg STK-MED ONCE 08/06/20 15:19 08/06/20 15:19 DC Sevoflurane (Ultane) 30 ml STK-MED ONCE 08/06/20 15:18 08/06/20 15:19 DC Sodium Chloride 1,000 ml @ 100 mls/hr Q10H 08/07/20 12:00 08/12/20 10:50 DC 08/11/20 16:30 100 MLS/HR Sodium Phosphate 20 mmol/Sodium Chloride 256.6667 ml @ 62.5 mls/hr 1X ONCE 07/24/20 15:30 07/24/20 19:36 UNV Sodium Phosphate 30 mmol/Sodium Chloride 260 ml @ 62.5 mls/hr 1X ONCE 07/24/20 15:30 07/24/20 19:39 UNV Succinylcholine Chloride (Anectine) 200 mg 1X ONCE 07/04/20 09:30 07/04/20 09:31 DC 07/04/20 09:38 200 MG Throat Lozenges (Cepacol Sore Throat Lozenge) 1 lety PRN Q2HRS PRN 07/04/20 01:15 Vancomycin HCl (Vanco Per Pharmacy) 1 each PRN DAILY PRN 08/11/20 13:30 08/14/20 08:03 DC 08/13/20 15:09 1 EACH Vancomycin HCl (Vancomycin Trough Level) 1 each 1X ONCE 08/13/20 14:30 08/13/20 14:31 DC Vancomycin HCl 1.25 gm/Sodium Chloride 250 ml @ 167 mls/hr Q8H 07/25/20 15:00 07/26/20 07:31 DC 07/25/20 22:44 167 MLS/HR Vancomycin HCl 1.5 gm/Sodium Chloride 500 ml @ 250 mls/hr Q8H 08/11/20 23:00 08/12/20 15:13 DC 08/12/20 14:49 250 MLS/HR Vancomycin HCl 1.75 gm/Sodium Chloride 500 ml @ 250 mls/hr Q8H 08/12/20 23:00 08/14/20 08:01 DC 08/14/20 07:04 250 MLS/HR Vancomycin HCl 2 gm/Sodium Chloride 500 ml @ 250 mls/hr 1X ONCE 07/25/20 07:00 07/25/20 08:59 DC 07/25/20 07:06 250 MLS/HR Vecuronium [place] 50 mg/ Miscellaneous 50 ml @ 4.094 mls/ hr CONT PRN 07/12/20 14:45 07/22/20 09:34 DC 07/18/20 01:56 7.5 MLS/HR Vecuronium [place] (Norcuron Bolus) 6 mg PRN Q6HRS PRN 07/28/20 23:00 08/24/20 07:50 DC 08/09/20 15:05 6 MG Vitamin D (Vitamin D3) 5,000 unit DAILY 07/05/20 09:00 09/02/20 08:54 5,000 UNIT Zinc Sulfate (Orazinc) 220 mg DAILY 07/05/20 09:00 09/02/20 08:54 220 MG Objective: Assessment: Left pleural effusion status post CTS August 15 Left thoracocentesis with CTS pH 7.73, cell count, glucose, protein .ldh noted, cult neg Fevers Source ?? Leukocytosis improved COVID-19 positive. Status post remdesivir, steroids Acute hypoxic respiratory failure/ARDS /pneumonia H/O Bilateral pulmonary emboli. Hypertension. Bacteremia 07/23 08/25 bottles staph hominis likely contaminant Repeat blood cultures staph capitis likely contaminant Repeat BC 08/06 staph pettenkori likely contaminant Enterobacter UTI and pneumonia Treated Plan: Plan of Care cont augmentin and doxy tracheal aspirate for afb stain and cultures negative so far acute hepatitis panel and HIV negative Continue supportive care D/W JAMI LUCAS MD Sep 03, 2020 07:52
[2020-09-03] MEDS: AMOXICILLIN/K CLAV 875/125MG TABLET. PO SCH ×2 (09:19→20:53)
[2020-09-03] MEDS: LANSOPRAZOLE 30 MG TAB.RAP.DR FT SCH (09:19)
[2020-09-03] MEDS: ZINC SULFATE 220 MG CAPSULE. PO SCH (09:20)
[2020-09-03] MEDS: DOXYCYCLINE HYCLATE 100 MG TABLET PO SCH ×2 (09:20→20:53)
[2020-09-03] MEDS: CHOLECALCIFEROL (VITAMIN D3) 5,000 UNIT CAPSULE PO SCH (09:20)
[2020-09-03 11:00] VITALS: BP 128/76
--- NOTE | 2020-09-03 11:33 | PDOC ---
[employer] PROGRESS NOTE Date of Service DOS: DATE: 09/03/20 TIME: 11:27 Chief Complaint Chief Complaint IMPRESSION Acute hypoxic respiratory failure requiring VENT SUPPORT STATUS post trach placement 08/06/2020 // Patient remains on trach shield Patient remains on trach shield with PMV No other concerns from nursing overnight S/P Peg tube placement 08/09 Acute hypoxic respiratory failure/ARDS /pneumonia Bilateral perihilar and basilar opacities, progressed in the left base. 07-26 COVID-19 Subsegmental bilateral PE Sepsis NSTEMI AKA Lactic acidosis Hyponatremia, RESOLVED hgb 6.5 07-27, transfused 1 unit prbc's - bled on eliquis, now on heparin GTT hypokalemia, on replacement Left pleural effusion interval development of gas in the left pleural effusion with pleural thi ckening, raising question of developing empyema. Repeat BC 08/06 staph pettenkori likely contaminant Enterobacter UTI and pneumonia Treated tracheal aspirate for afb stain and cultures negative so far f/u acute hepatitis panel HIV negative CT chest abdomen and pelvis reviewed, Lt base changes present pulm team following Plan: Appreciate pulmonology INPUT Heparin has been transitioned to Xarelto Appreciate ID recommendationscontinue Remdesivir and empiric antibiotics IV fluids Discussed with RN Antibiotics per ID-- off ABX, infectious disease following increasing leukocytosis has completed full course of remdesivir continue tube feeding for nutritional support tracheal aspirate for afb stain and cultures negative so far f/u acute hepatitis panel HIV negative CT chest abdomen and pelvis reviewed, Lt base changes present pulm team following tracheal aspirate for afb stain and cultures negative so far f/u acute hepatitis panel HIV negative CT chest abdomen and pelvis reviewed, Lt base changes present pulm team following HIV negative cont augmentin and doxy 29 MIN PT EXAM, CHART REVIEW, > 50% OF TIME SPENT WITH EXAM, CHART REVIEW, PT CARE COORDINATION 09/03 - acute hypoxic respiratory failure History of Present Illness History of Present Illness Mr Soni is 49-year-old male with past medical history of hypertension, who presented to the ED 07/04/2020 with complaints of worsening shortness of breath over the past 5 days prior to admit. Associated sore throa t, fatigue, and generalized weakness. Patient was reportedly tested for COVID- 19 prior to admit, but he had negative test results. His symptoms acutely worsened yesterday. Upon arrival to the ER his oxygen saturation was 60% on room air. He was placed on BiPAP and admitted to the ICU. Patient was subsequently intubated due to worsening respiratory failure. s/p remdesivir 07/08/2020. Tracheostomy 08/06/2020, PEG 08/09/202009/03 - pt evaluated at bedside - pt care discussed with RN - discharge discussed with pt and RN - PEG in place and receiving feed - trach removed 09/02: Patient seen and evaluated bedside. Trach removed (08/31) breathing comfortably on room air. PEG in place, n.p.o. He is self-pay, not a citizen. Charts and labs reviewed. 09/01: Patient evaluated bedside. Trach was removed yesterday (08/31). Early on room air. N.p.o., ST to evaluate swallow. PEG in place. He is self-pay, not a citizen. 08/31: Patient seen at bedside. Afebrile, no acute events overnight. He had decannulation of his tracheostomy tube today. Currently breathing on room air. I believe he is still to have ST swallow eval today as well. Discussed with RN. 08/30: No acute events overnight. Patient seen and examined in next recliner. Trach collar in place and saturating well. Denies chest pain or nausea. Charts and labs reviewed. Continue treatment with Augmentin and doxycycline. 08/29: Patient seen and evaluated. Plan was to have decannulation today, but patient began having significant coughing spells due to improperly fitting trach tube. New appropriately fitting tube was obtained, no further issues with coughing. Discussed with RN. 08/28/2020: Patient seen and evaluated. No acute events overnight. Patient is afebrile. On trach collar 8L O2. He remains n.p.o. due to failed swallow study. Antibiotics per ID. Plans to decannulate soon. Discussed with RN. 08/27/20: Patient seen and evaluated bedside. No acute events overnight. On tracheal collar 8L O2. Continue antibiotics, per ID. Patient strength continues to improve, working with PT. We will remove Fernandez catheter and rectal tube today. Discussed with RN. 08/12: No acute events overnight. Patient has T-max of 99.7. Currently on minimal vent settings.> 50% time spent in patient chart, labs, and imaging review and in discussion with RN and JAVIER 08/13: Overnight Tmax 100.6F. Tires out easily on vent. 08/14: 101.5 F overnight. Stool sample on urine sample taken today. No growth on cultures as of yet. Still requiring vent support via his trach. No residuals on tube feeds. CT chest with left loculated effusion 08/15: 100.4 F overnight. Left Thoracostomy tube inserted today. Still requir ing vent support via trach. 08/16: T-max 100.8 F overnight. Still requiring vent support via trach. Chest tube w/o air leak. 08/17: T [id number] overnight. Still requiring vent support via trach. Chest tube still with output, no air leak. 08/18: T-max 100.4 F overnight. On trach collar 30 L O2 currently. Minimal chest tube output, improved. CTPA still with left pulmonary embolism. Afebrile overnight. On trach collar 30 L O2 currently. Minimal chest tube output chest radiograph appears improved pigtail catheter in good position. 08/19/2020 No acute events overnight. Patient is on a trach collar currently. Chest tube in place with minimal output. Pending pleural fluid analysis. Patient's chart, labs, images were reviewed and discussed with RN 08/20/20 No acute events overnight. Tolerating trach collar. Minimal CT output.> 50% time spent in patient chart, labs, and imaging review and in discussion with RN and JAVIER 08/22/2020 No acute events overnight. Patient seen and examined in next recliner. Currently on trach collar and saturating well.> 50% time spent in patient chart, labs, and imaging review and in discussion with RN and JAVIER 08/11/2020 No acute events overnight. Patient with T-max of 100.8 overnight. Currently on minimal vent settings. Trached and pegged. Social work following for Medicare approval.> 50% time spent in patient chart, labs, and imaging review and in discussion with RN and JAVIER 08/10/2020 no acute events overnight. Patient is on minimal vent settings. PEG tube placed yesterday. Will attempt to wean to extubate today.> 50% time spent in patient chart, labs, and imaging review and in discussion with RN and JAVIER 08/09/2020 No acute events overnight. T-max of 100.0 F. Patient is on minimal ventilatory settings.> 50% time spent in patient chart, labs, and imaging review and in discussion with RN and JAVIER 08/08/2020 Patient tolerating trach and ventilatory goldy support on 40% FiO2 and 5 of PEEP. Pending PEG tube placement tomorrow.> 50% time spent in patient chart, labs, and imaging review and in discussion with RN and JAVIER 08/07/2020 No acute events overnight. Fever T-max of 101.1. Trach was placed yesterday. On minimal vent settings.> 50% time spent in patient chart, labs, and imaging review and in discussion with RN and JAVIER 08/06/2020 No acute events overnight. Patient is afebrile. Currently on minimal vent settings. Pending trach today. Patient's chart, labs, images were reviewed and discussed with RN A total of 35 minutes of critical care time was spent in reviewing chart, labs, and images. Discussed with RN and JAVIER. 08/05/2020 Patient seen and evaluated. No acute events, febrile overnight. Mechanically ventilated with FiO2 40%, PEEP 6. Plan for trach Thursday. 08/04/2020 Patient seen in [facility] ICU. Still with low-grade fevers. Mechanically ventilated, FiO2 40%, PEEP 6. No acute change, plan for trach Thursday. 08/03/2020 Patient seen in [facility]- ICU. Still with low-grade fever. He remains on vent with FiO2 100%, PEEP 12. Plan for trach on Thursday, and PEG at some point after. 08/02/2020 Patient seen and evaluated in [facility] ICU. He is febrile this morning. Still intubated mechanically ventilated with FiO2 40 %, PEEP 6. Plans for tracheostomy today. 08/01/2020 Patient seen in [facility] ICU. Patient remains slightly febrile. Mechanically ventilated, FiO2 45%, PEEP 6. Tracheostomy unable to perform yesterday, general surgery to attempt again today. Discussed with RN. 07/31/2020 Patient still spiking fevers. Patient remains on vent, FiO2 45%, PEEP 6. Tracheostomy tentatively planned for today. 07/30/2020 Patient seen in [facility]-19 ICU. He is febrile on vent, FiO2 45%, PEEP 6. Will attempt to speak with family about decision on trach and PEG tube. Discussed with RN. t max 102 f fio2 50% 07/21/2020 Patient no acute events reported overnight. Patient continues to require a lot of support from vent. Discussed with RN 09/19/2019 Patient continues to be pretty much the same , fio2 is at 70%, heparin 07/19/2020 Patient hypotensive today, we will follow recommendations from critical healthcare account manager. Vent management as per leasing consultant, no other complaints. 07/18/2020 Patient with no acute events reported overnight, fio2 is now at 75% PEEP of 6, Vent management as per pulmonary leasing consultant slight increase in temperature noted over the lat 24 hours. Will continue to follow 07/17/2020 Patient with no acute events reported overnight, contineus to require an fio2 of 80%, continue with supportive measures. 07/16/2020 Patient with no acute events reported overnight, patient continues to require quite a bit of FiO2 at 80%. Vent management as per leasing consultant, will place a call to family members after rounding. Discussed with RN 07/15/2020 Patient seen and examined bedside in the ICU. FiO2 80% PEEP of 6.pH 7.56, PCO2 32, PO2 56, HCO3 28. Will adjust respiratory rate accordingly to correct pH.> 50% time spent in patient chart, labs, and imaging review and in discussion with RN and JAVIER 07/14/2020 Patient seen and examined bedside. FiO2 65% and PEEP of 6 on vent. ABG: pH 7.26, PCO2 77, PO2 114, HCO3 34. We will adjust respiratory rate or tidal volume to titrate pH.> 50% time spent in patient chart, labs, and imaging review and in discussion with RN and JAVIER 07/13/2020 No acute events overnight. Patient examined bedside sedated and intubated. FiO2 70% PEEP of 6. Improved ABGs.> 50% time spent in patient chart, labs, and imaging review and in discussion with RN and JAVIER 07/12/2020 Patient seen and examined in the ICU. Sedated and intubated. FiO2 65, PEEP of 8 with improved oxygenation. pH 7.4, PCO2 48, PO2 94, HCO3 30. +500 cc fluid balance.> 50% time spent in patient chart, labs, and imaging review and in discussion with RN and JAVIER 07/11/2020 Patient seen and examined bedside in the ICU. Patient continues to be intubated and sedated. FiO2 75%, PEEP of 10. pH 7.40, PCO2 44, PO2 is 135, HCO3 26. Can likely decrease FiO2 due to improved oxygenation. +173 cc in the past 24 hours 07/10/2020 Patient seen and examined bedside in ICU. Patient is intubated and sedated. FiO2 90%, PEEP of 10, respiratory rate of 30. ABG: pH is 7.41, PCO2 42, PO2 113, HCO3 26. 07/05: Patient seen in ICU, still intubated and sedated. COVID-19 pending. Patient remains on heparin infusion. Discussed with RN, will try to have central line placed per anesthesia. 07/06: Patient seen in ICU. Still FiO2 100% on vent and sedated. COVID-19 po sitive. Continue heparin infusion, Zosyn, steroids. 07/07: Covid positive patient seen in ICU. On vent with FiO2 100%, PEEP 10. Continue remdesivir, steroids, Zosyn. Continue to monitor 07/08: Patient seen in Covid ICU. Still on vent with FiO2 100%, PEEP 10. Afebrile. No acute events overnight. Continue steroids, antibiotics, and remdesivir. 07/09: Patient seen and examined in the ICU. Intubated and sedated. Vent settings FiO2 90%, PEEP of 10, respiratory rate of 30. Vitals/I&O Vitals/I&O: Vital Signs Date Time Temp Pulse Resp B/P (MAP) Pulse Ox O2 Delivery O2 Flow Rate FiO2 09/03/20 08:00 Room Air 09/03/20 07:00 98.2 83 18 122/77 (92) 96 98.2 I & O 09/02/20 09/02/20 09/03/20 15:00 23:00 07:00 Intake Total 0 ml 400 ml 1600 ml Output Total 400 ml 425 ml 425 ml Balance -400 ml -25 ml 1175 ml Physical Exam Physical Exam: General alert awake HEENT normocephalic atraumatic , Neck supple ,trach removed LUNGS: Clear anteriorly, left CTS removed HEART: S1-S2 no murmurs ABDOMEN: mildly distended, soft bowel sounds present Fernandez in place,fecal tube in place SKIN: No generalized rash Right upper extremity PICC line removed PIVs Clean Neuro alert awake General: Alert, No acute distress, Other (sedated ) Heart: Regular rate, No murmurs Lungs: Clear Extremities: No clubbing Skin: No significant lesion Labs Labs: Laboratory Tests Test 09/03/20 07:30 Glucose (Fingerstick) 129 mg/dL (70-99) Review of Systems Review of Systems: - pt denies change in mentation - no evidence of skin breakdown Assessment and Plan Assessmemt and Plan Problems Medical Problems: (1) Acute respiratory failure with hypoxia Status: Acute (2) PRIYA (acute kidney injury) Status: Acute (3) Elevated troponin I level Status: Acute (4) Pulmonary emboli Status: Acute (5) Suspected COVID-19 virus infection Status: Acute 09/03 - continue cardiac monitoring - wound care for tracheostomy - continue PEG feeding - d/c disposition pending Comment Review of Relevant I have reviewed the following items trino (where applicable) has been applied. Justifications for Admission Other Justification KIMMY GRAHAM III DO Sep 03, 2020 11:32
[2020-09-03] MEDS ORDERED: BARIUM SULFATE 40% (APPLE) 148 GM PWD. PO ONE (12:45)
--- NOTE | 2020-09-03 13:08 | NUR ---
SS following up with discharge planning. SS reviewed pt chart and discussed with pt RN. Pt is currently on room air. COVID19 negative. Pt improving with PT/OT. NPO. ST following. Pt having video swallow today. Peg in place. Per RN, pt coughing up blood. Pulmonology notified. Self pay. Not a citizen. SS will continue to follow for discharge planning.
[2020-09-03 15:00] VITALS: BP 124/77
[2020-09-03] MEDS: ANTI-COAG MONITOR BY PHARMACY. MC PRN (15:30)
--- NOTE | 2020-09-03 18:36 | RAD ---
PROCEDURE: DG VIDEO SWALLOW STUDY STUDY DATE: 09/03/2020 CLINICAL INDICATION / HISTORY: Reason: POST DECANNUATION/DISPAHGIA WITH PEG, FLOURO TIME 2.9 / Spl. I nstructions: / History: . TECHNIQUE: Real-time fluoroscopic imaging examination was performed in conjunction with speech therap y. The patient was administered barium labeled thin liquids, pudding, and solid consistency compounds . FLUOROSCOPY TIME: 2.9 minutes. Number of Images: 0 COMPARISON: Chest x-rays of 08/20/2020 and 08/19/2020 FINDINGS: The patient exhibited normal oral control. Patient required multiple attempts at swallowin g to complete ingestion of the bolus and there was some mild residue in the valleculae post swallow, especially notable with pudding consistency foods. No flash penetration was observed. No definite as piration was observed. The patient tolerated solid barium label compounds. IMPRESSION: Dysphagia of the oral, oropharyngeal, pharyngeal, pharyngoesophageal phase. No evidence of aspiration. Please refer to speech pathology notes for complete details and recommendations. Electronically signed by: Gosia Li MD (09/03/2020 6:34 PM) [id number]
[2020-09-03 19:00] VITALS: BP 122/81
[2020-09-03 22:49] VITALS: BP 131/73
[2020-09-04 03:03] VITALS: BP 108/79
[2020-09-04] MEDS: INSULIN LISPRO 300 UNITS/3 ML VIAL. SQ SCH (06:00)
[2020-09-04 07:00] VITALS: BP 119/76
[2020-09-04] MEDS: LANSOPRAZOLE 30 MG TAB.RAP.DR FT SCH (08:19)
[2020-09-04] MEDS: ZINC SULFATE 220 MG CAPSULE. PO SCH (08:19)
[2020-09-04] MEDS: CHOLECALCIFEROL (VITAMIN D3) 5,000 UNIT CAPSULE PO SCH (08:19)
[2020-09-04] MEDS: DOXYCYCLINE HYCLATE 100 MG TABLET PO SCH (08:20)
[2020-09-04] MEDS: AMOXICILLIN/K CLAV 875/125MG TABLET. PO SCH (08:20)
--- NOTE | 2020-09-04 09:11 | PDOC ---
Infectious Disease Note Subjective: Subjective Patient feels better Remains afebrile Vital Signs: Vital Signs Vital Signs Date Time Temp Pulse Resp B/P (MAP) Pulse Ox O2 Delivery O2 Flow Rate FiO2 09/04/20 07:00 98.4 72 20 119/76 (90) 97 Room Air 98.4 Physical Exam: PHYSICAL EXAM General alert awake HEENT normocephalic atraumatic , Neck supple ,trach removed LUNGS: Clear anteriorly, left CTS removed HEART: S1-S2 no murmurs ABDOMEN: mildly distended, soft bowel sounds present.peg tube present Fernandez in place,fecal tube in place SKIN: No generalized rash Right upper extremity PICC line removed PIVs Clean Neuro alert awake Medications: Inpatient Meds: Current Medications Medications (Trade) Dose Ordered Sig/Natalee Start Time Stop Time Status Last Admin Dose Admin Acetaminophen (Tylenol Supp) 650 mg PRN Q6HRS PRN 08/06/20 20:45 08/07/20 19:28 650 MG Acetaminophen (Tylenol) 650 mg PRN Q6HRS PRN 07/12/20 12:00 09/02/20 21:00 650 MG Amoxicillin/ Clavulanate Potassium (Augmentin 875/ 125mg) 1 tab BID 08/23/20 21:00 09/04/20 08:20 1 TAB Apixaban (Eliquis) 5 mg BID 08/18/20 10:00 09/02/20 20:32 DC 09/02/20 08:54 5 MG Ascorbic Acid (Vitamin C) 500 mg Q6HRS 07/04/20 18:00 08/05/20 08:39 DC 08/05/20 06:07 500 MG Azithromycin (Zithromax) 500 mg 1X ONCE 07/03/20 19:15 07/03/20 19:19 DC 07/03/20 20:11 500 MG Barium Sulfate (Varibar Thin Liquid Apple) 148 gm 1X ONCE 09/03/20 12:45 09/03/20 12:46 DC Bupivacaine HCl/ Epinephrine Bitart (Sensorcain-Epi 0.5%-1:342261 Mpf) 30 ml 1X ONCE 08/06/20 06:30 08/06/20 06:31 DC 08/06/20 15:15 1 ML Cefazolin Sodium/ Dextrose 50 ml @ 100 mls/hr 1X ONCE 08/09/20 11:00 08/09/20 11:29 DC 08/09/20 11:04 100 MLS/HR Ceftriaxone Sodium (Rocephin) 1 gm 1X ONCE 07/03/20 19:15 07/03/20 19:19 DC 07/03/20 20:11 1 GM Cellulose (Surgicel Fibrillar 1x2) 1 each STK-MED ONCE 07/31/20 13:08 07/31/20 13:08 DC Cellulose (Surgicel Hemostat 4x8) 1 each STK-MED ONCE 08/06/20 14:10 08/06/20 14:11 DC Daptomycin 470 mg/ Sodium Chloride 50 ml @ 100 mls/hr Q24H 08/01/20 09:00 08/05/20 11:20 DC 08/05/20 09:24 100 MLS/HR Dexmedetomidine HCl 400 mcg/ Sodium Chloride 100 ml @ 0 mls/hr CONT PRN 08/11/20 10:00 08/24/20 07:50 DC 08/17/20 11:29 4.1 MLS/HR Dextrose (Dextrose 50%-Water Syringe) 12.5 gm PRN Q15MIN PRN 08/14/20 08:00 UNV Doxycycline Hyclate (Vibra-Tab) 100 mg BID 08/21/20 10:00 09/04/20 08:20 100 MG Enoxaparin Sodium (Lovenox 150mg Syringe) 150 mg 1X ONCE 07/03/20 23:00 07/03/20 23:01 DC 07/03/20 22:45 150 MG Etomidate (Amidate) 10 mg 1X ONCE 07/04/20 09:30 07/04/20 09:31 DC 07/04/20 09:37 10 MG Fentanyl Citrate (Fentanyl 2ml Vial) 50 mcg 1X ONCE 08/15/20 14:15 08/15/20 14:18 DC 08/15/20 14:29 50 MCG Furosemide (Lasix) 20 mg 1X ONCE 07/29/20 06:30 07/29/20 06:31 DC 07/29/20 06:35 20 MG Heparin Sodium (Porcine) (Heparin Sodium) 1,250 unit PRN Q6HRS PRN 08/11/20 14:30 08/18/20 10:00 DC 08/14/20 22:56 1,250 UNIT Heparin Sodium/ Dextrose 250 ml @ 0 mls/hr CONT PRN 08/11/20 14:30 08/18/20 10:00 DC 08/18/20 00:46 26.2 MLS/HR Hydromorphone HCl (Dilaudid) 0.5 mg PRN Q10MIN PRN 08/06/20 07:00 08/07/20 06:59 DC Info (Anti-Coagulation Monitoring By Pharmacy) 1 each PRN DAILY PRN 07/16/20 08:15 09/03/20 15:30 1 EACH Info (CONTRAST GIVEN -- Rx MONITORING) 1 each PRN DAILY PRN 08/17/20 05:45 08/19/20 05:44 DC Info (Icu Electrolyte Protocol) 1 ea CONT PRN PRN 07/24/20 15:45 Insulin Human Lispro (HumaLOG) 0-7 UNITS Q6HRS 08/14/20 12:00 08/19/20 11:38 3 UNITS Iohexol (Omnipaque 350 Mg/ml) 100 ml 1X ONCE 08/17/20 05:45 08/17/20 05:46 DC 08/17/20 05:45 100 ML Lansoprazole (Prevacid) 30 mg DAILY 08/21/20 09:00 09/04/20 08:19 30 MG Levofloxacin/ Dextrose 150 ml @ 100 mls/hr Q24H 08/02/20 09:00 08/05/20 11:20 DC 08/05/20 07:16 100 MLS/HR Lidocaine HCl (Buffered Lidocaine 1%) 6 ml 1X ONCE 08/15/20 13:00 08/15/20 13:01 DC 08/15/20 13:07 5 ML Lidocaine HCl (Xylocaine-Mpf 1% 2ml Vial) 2 ml PRN 1X PRN 08/06/20 07:00 08/07/20 06:59 DC Linezolid (Zyvox) 600 mg BID 08/14/20 09:00 08/19/20 12:00 DC 08/19/20 08:22 600 MG Linezolid/Dextrose 300 ml @ 300 mls/hr Q12HR 07/27/20 12:30 07/31/20 07:36 DC 07/30/20 21:47 300 MLS/HR Lorazepam (Ativan Inj) 2 mg PRN Q1HR PRN 07/21/20 12:30 08/18/20 00:45 2 MG Magnesium Sulfate 100 ml @ 50 mls/hr DAILY 08/13/20 00:00 08/16/20 00:00 DC 08/15/20 08:43 50 MLS/HR Meclizine HCl (Antivert) 25 mg PRN DAILY PRN 08/12/20 23:00 08/30/20 10:38 25 MG Meropenem 500 mg/ Sodium Chloride 50 ml @ 100 mls/hr Q6HRS 08/14/20 09:00 08/23/20 10:55 DC 08/23/20 05:54 100 MLS/HR Methylprednisolone Sodium Succinate (SOLU-Medrol 40MG VIAL) 40 mg DAILY 07/21/20 09:00 07/22/20 09:36 DC 07/22/20 09:08 40 MG Midazolam HCl (Versed) 5 mg STK-MED ONCE 07/04/20 09:21 07/04/20 09:21 DC Morphine Sulfate (Morphine Sulfate) 1 mg PRN Q10MIN PRN 08/06/20 07:00 08/07/20 06:59 DC Multi-Ingred Cream/Lotion/Oil/ Oint (Artificial Tears Eye Ointment) 1 wenceslao PRN Q1HR PRN 07/18/20 10:45 07/27/20 17:19 1 WENCESLAO Norepinephrine Bitartrate 8 mg/ Dextrose 258 ml @ 16.061 mls/ hr CONT PRN 07/04/20 13:15 07/18/20 11:01 DC 07/05/20 00:33 28.909 MLS/HR Ondansetron HCl (Zofran) 4 mg PRN Q6HRS PRN 08/06/20 07:00 08/07/20 06:59 DC Pantoprazole Sodium (PROTONIX VIAL for IV PUSH) 40 mg DAILYAC 07/04/20 12:30 08/20/20 10:25 DC 08/20/20 10:29 40 MG Piperacillin Sod/ Tazobactam Sod (Zosyn Per Pharmacy) 1 each PRN DAILY PRN 07/04/20 12:00 07/18/20 07:46 DC Piperacillin Sod/ Tazobactam Sod 3.375 gm/Sodium Chloride 50 ml @ 100 mls/hr Q6HRS 07/04/20 12:00 07/17/20 11:11 DC 07/17/20 05:10 100 MLS/HR Piperacillin Sod/ Tazobactam Sod 4.5 gm/Sodium Chloride 100 ml @ 200 mls/hr Q6HRS 07/24/20 12:00 07/26/20 10:53 DC 07/26/20 05:36 200 MLS/HR Potassium Bicarbonate (Potassium Effervescent Tablet) 40 meq 1X ONCE 08/15/20 09:45 08/15/20 09:46 DC 08/15/20 10:25 40 MEQ Potassium Chloride/Water 100 ml @ 100 mls/hr Q1H 08/13/20 13:00 08/13/20 16:59 DC 08/13/20 18:10 100 MLS/HR Potassium Phosphate 13.6 mmol/Sodium Chloride 254.5333 ml @ 62.5 mls/hr Q4H 07/24/20 15:30 07/25/20 03:29 UNV Prochlorperazine Edisylate (Compazine) 10 mg PRN Q6HRS PRN 08/12/20 21:30 08/19/20 13:34 10 MG Propofol 100 ml @ 0 mls/hr CONT PRN 07/04/20 09:15 08/24/20 07:49 DC 08/11/20 06:42 14.9 MLS/HR Remdesivir 100 mg/ Sodium Chloride 230 ml @ 460 mls/hr Q24H 07/07/20 14:30 07/10/20 14:59 DC 07/10/20 13:59 460 MLS/HR Remdesivir 200 mg/ Sodium Chloride 210 ml @ 210 mls/hr 1X ONCE 07/06/20 14:30 07/06/20 15:29 DC 07/06/20 14:51 210 MLS/HR Ringer's Solution 1,000 ml @ 30 mls/hr Q24H 08/09/20 06:00 08/09/20 17:59 DC 08/09/20 06:11 30 MLS/HR Rocuronium Orange (Zemuron) 50 mg STK-MED ONCE 08/06/20 15:19 08/06/20 15:19 DC Sevoflurane (Ultane) 30 ml STK-MED ONCE 08/06/20 15:18 08/06/20 15:19 DC Sodium Chloride 1,000 ml @ 100 mls/hr Q10H 08/07/20 12:00 08/12/20 10:50 DC 08/11/20 16:30 100 MLS/HR Sodium Phosphate 20 mmol/Sodium Chloride 256.6667 ml @ 62.5 mls/hr 1X ONCE 07/24/20 15:30 07/24/20 19:36 UNV Sodium Phosphate 30 mmol/Sodium Chloride 260 ml @ 62.5 mls/hr 1X ONCE 07/24/20 15:30 07/24/20 19:39 UNV Succinylcholine Chloride (Anectine) 200 mg 1X ONCE 07/04/20 09:30 07/04/20 09:31 DC 07/04/20 09:38 200 MG Throat Lozenges (Cepacol Sore Throat Lozenge) 1 lety PRN Q2HRS PRN 07/04/20 01:15 Vancomycin HCl (Vanco Per Pharmacy) 1 each PRN DAILY PRN 08/11/20 13:30 08/14/20 08:03 DC 08/13/20 15:09 1 EACH Vancomycin HCl (Vancomycin Trough Level) 1 each 1X ONCE 08/13/20 14:30 08/13/20 14:31 DC Vancomycin HCl 1.25 gm/Sodium Chloride 250 ml @ 167 mls/hr Q8H 07/25/20 15:00 07/26/20 07:31 DC 07/25/20 22:44 167 MLS/HR Vancomycin HCl 1.5 gm/Sodium Chloride 500 ml @ 250 mls/hr Q8H 08/11/20 23:00 08/12/20 15:13 DC 08/12/20 14:49 250 MLS/HR Vancomycin HCl 1.75 gm/Sodium Chloride 500 ml @ 250 mls/hr Q8H 08/12/20 23:00 08/14/20 08:01 DC 08/14/20 07:04 250 MLS/HR Vancomycin HCl 2 gm/Sodium Chloride 500 ml @ 250 mls/hr 1X ONCE 07/25/20 07:00 07/25/20 08:59 DC 07/25/20 07:06 250 MLS/HR Vecuronium Orange 50 mg/ Miscellaneous 50 ml @ 4.094 mls/ hr CONT PRN 07/12/20 14:45 07/22/20 09:34 DC 07/18/20 01:56 7.5 MLS/HR Vecuronium Orange (Norcuron Bolus) 6 mg PRN Q6HRS PRN 07/28/20 23:00 08/24/20 07:50 DC 08/09/20 15:05 6 MG Vitamin D (Vitamin D3) 5,000 unit DAILY 07/05/20 09:00 09/04/20 08:19 5,000 UNIT Zinc Sulfate (Orazinc) 220 mg DAILY 07/05/20 09:00 09/04/20 08:19 220 MG Labs: Lab Laboratory Tests Test 09/03/20 11:47 09/03/20 16:43 09/03/20 20:51 09/04/20 07:05 Glucose (Fingerstick) 153 mg/dL (70-99) 127 mg/dL (70-99) 100 mg/dL (70-99) 97 mg/dL (70-99) Objective: Assessment: Left pleural effusion status post CTS August 15 Left thoracocentesis with CTS pH 7.73, cell count, glucose, protein .ldh noted, cult neg acute hepatitis panel and HIV negative Fevers resolved Leukocytosis improved COVID-19 positive. Status post remdesivir, steroids Acute hypoxic respiratory failure/ARDS /pneumonia H/O Bilateral pulmonary emboli. Hypertension. Bacteremia 07/23 08/25 bottles staph hominis likely contaminant Repeat blood cultures staph capitis likely contaminant Repeat BC 08/06 staph pettenkori likely contaminant Enterobacter UTI and pneumonia Treated Dysphagia of the oral, oropharyngeal, pharyngeal, pharyngoesophageal phase. No evidence of aspiration. Plan: Plan of Care DC Augmentin and doxycycline tracheal aspirate for afb stain and cultures negative so far Continue supportive care Pt is ready for dc home today D/W JAMI LUCAS MD Sep 04, 2020 09:11
[2020-09-04] MEDS ORDERED: DOXY100T PO (10:26)
[2020-09-04] MEDS ORDERED: ZINC220C2 PO (10:26)
[2020-09-04] MEDS ORDERED: AMOX1TAB11 PO (10:26)
[2020-09-04 10:35] VITALS: BP 116/72
--- NOTE | 2020-09-04 10:52 | DS ---
DATE OF DISCHARGE: 09/04/2020 ADMISSION DIAGNOSIS: COVID-19 respiratory failure. DISCHARGE DIAGNOSIS: Resolving COVID-19 respiratory failure. CONSULTS: GI, General Surgery, Infectious Disease, Pulmonary Medicine and Cardiology. PROCEDURES: 1. Tracheostomy. 2. PEG placement. HOSPITAL COURSE: The patient is a pleasant middle-aged male who basically presented with fulminant respiratory failure secondary to COVID-19. We placed the patient on COVID protocol. He eventually had to go to the ICU and was intubated. He eventually had to have a tracheostomy and a PEG, which we have now discontinued both. This morning, he is starting to eat regular food. He looks good. I saw him and examined him. Heart tones are normal. Lungs are clear. We plan to discharge him. DISPOSITION: Home. ACTIVITY: As tolerated. DIET: Low sodium. MEDICATIONS: Please see the MRAD. TOTAL TIME: 34 minutes. KIMMY GRAHAM DO DR: ZEINA/ambika JOB#: [id number] / [id number]
--- NOTE | 2020-09-04 12:16 | NUR ---
SS following up with discharge planning. SS reviewed pt chart and discussed with pt RN. Pt is currently on room air. COVID19 negative. Pt on PO diet now. Regular diet/thin liquids. Pt improved with PT/OT. Discharge order for home with self care. Pt needing walker for home. SS provided walker to pt for home. Pt's family transporting pt to home.
[2020-09-04 14:20] VITALS: BP 116/79
--- NOTE | 2020-09-04 16:40 | NUR ---
DISCHARGED PATIENT TO HOME. DISCHARGE INSTRUCTION GIVEN. PIV AND HEART MONITOR REMOVED. ESCORTED PATIENT OFF UNIT PER WHEELCHAIR INTO A PRIVATE VEHICLE.
== END 2020-09-04 16:35 | disposition home or self-care (01) | DRG 4 ==
LOC: ER 18:14 → ED HOLD 07-04 00:05 → 1 WEST ICU 07-04 03:16 → CVICU 08-20 06:20 → 2 NORTH 08-23 19:00
PROVIDERS: ADMIT Internal Medicine; ATTEND Internal Medicine
PROC: 5A09357 Assistance with Respiratory Ventilation, Less than 24 Consecutive Hours, Continuous Positive Airway Pressure (ICD-10-PCS; 2020-07-03)
PROC: 5A1955Z Respiratory Ventilation, Greater than 96 Consecutive Hours (ICD-10-PCS; 2020-07-04)
PROC: 0BH17EZ Insertion of Endotracheal Airway into Trachea, Via Natural or Artificial Opening (ICD-10-PCS; 2020-07-04)
PROC: 02HV33Z Insertion of Infusion Device into Superior Vena Cava, Percutaneous Approach (ICD-10-PCS; 2020-07-10)
PROC: 30233N1 Transfusion of Nonautologous Red Blood Cells into Peripheral Vein, Percutaneous Approach (ICD-10-PCS; 2020-07-27)
PROC: 0B113F4 Bypass Trachea to Cutaneous with Tracheostomy Device, Percutaneous Approach (ICD-10-PCS; principal; 2020-08-06 14:45)
PROC: 0DH63UZ Insertion of Feeding Device into Stomach, Percutaneous Approach (ICD-10-PCS; 2020-08-09)
PROC: 3E0G76Z Introduction of Nutritional Substance into Upper GI, Via Natural or Artificial Opening (ICD-10-PCS; 2020-08-09)
PROC: 5A09357 Assistance with Respiratory Ventilation, Less than 24 Consecutive Hours, Continuous Positive Airway Pressure (ICD-10-PCS; 2020-08-12)
PROC: 0W9B3ZZ Drainage of Left Pleural Cavity, Percutaneous Approach (ICD-10-PCS; 2020-08-15)
PROC: 5A0935A Assistance with Respiratory Ventilation, Less than 24 Consecutive Hours, High Flow/Velocity Cannula (ICD-10-PCS; 2020-08-25)
DX: U07.1 COVID-19 (principal); A41.2 Sepsis due to unspecified staphylococcus; I21.4 Non-ST elevation (NSTEMI) myocardial infarction; I26.99 Other pulmonary embolism without acute cor pulmonale; I50.33 Acute on chronic diastolic (congestive) heart failure; J12.82 Pneumonia due to coronavirus disease 2019; J80 Acute respiratory distress syndrome; E46 Unspecified protein-calorie malnutrition; E87.1 Hypo-osmolality and hyponatremia; E87.2 Acidosis; N17.9 Acute kidney failure, unspecified; N39.0 Urinary tract infection, site not specified; D64.9 Anemia, unspecified; E87.6 Hypokalemia; I11.0 Hypertensive heart disease with heart failure; I27.81 Cor pulmonale (chronic); J45.909 Unspecified asthma, uncomplicated; R13.10 Dysphagia, unspecified; Z86.711 Personal history of pulmonary embolism; R19.7 Diarrhea, unspecified; Z68.22 Body mass index [BMI] 22.0-22.9, adult
CPT/HCPCS: 32557; 36415; 36569; 36600; 43246; 71045; 71250; 71275; 74018; 74176; 74230; 80048; 80053; 80061; 80076; 80202; 81001; 82550; 82805; 82945; 82962; 83605; 83615; 83735; 83880; 83986; 84100; 84132; 84157; 84484; 85007; 85025; 85027; 85379; 85520; 85610; 85730; 86140; 86703; 86705; 86709; 86803; 86850; 86900; 86901; 86920; 87015; 87040; 87070; 87071; 87075; 87077; 87086; 87116; 87186; 87205; 87340; 87426; 87493; 87804; 88112; 88305; 93005; 93970; 94002; 94003; 94640; 94660; 94760; 96361; 96372; 96374; A4215; C1729; C1892; C1894; C9113; J0330; J0690; J0696; J0780; J0878; J1644; J1650; J1815; J1940; J1956; J2020; J2060; J2185; J2250; J2543; J2704; J2920; J3010; J3370; J3475; J3480; J3490; J7030; J7040; J7050; J7060; J7120; P9016; Q9967; U0003; 92526-GN; 92610-GN; 92611-GN; 97110-GO; 97110-GP; 97116-GP; 97530-GO; 97530-GP; 97535-GO; 99291-25; G0378; J8597